=== PATIENT | female | born 1940 | race Caucasian/White ===

== ENCOUNTER → 2017-06-22 16:06 | Outpatient (CLI) | payer MEDICARE, SELFPAY ==
--- NOTE | 2017-06-22 16:12 | RAD_ITS ---
STUDY: X-RAY - SACRUM/COCCYX REASON FOR EXAM: Female, 77 years old. Fell onto the floor this morning TECHNIQUE: 3 view(s) of the sacrum and coccyx were obtained. COMPARISON: None. FINDINGS: There is degenerative arthrosis of the bilateral sacroiliac joints. There is demineralization of the sacral ala. There is an anterior angulation of the coccygeal segments. Poorly visualized coccygeal segments. There are degenerative changes of the visualized lumbar spine. The presacral soft tissue structures are unremarkable. There is atherosclerosis. Total right hip arthroplasty. Degenerative changes of the symphysis pubis. RAD/Sacrum-Coccyx min 2 Views IMPRESSION: Acute angulation of the sacrococcyx junction may represent an acute or chronic injury. Osteoporosis, degenerative changes, arterial sclerosis. Limited coccygeal visualization. Electronically Signed: Daisy Hudson MD at 7:52 EST , Service support ,
== END ==
PROVIDERS: Family Provider Family Medicine; PCP Family Medicine; Visit Provider Family Medicine
DX: M53.3 Sacrococcygeal disorders, not elsewhere classified (principal)
CPT/HCPCS: 72220

== ENCOUNTER → 2017-08-25 16:55 | Outpatient (CLI) | payer MEDICARE, SELFPAY ==
--- NOTE | 2017-08-25 17:00 | RAD_ITS ---
STUDY: X-RAY - RIGHT FOOT CLINICAL: Female, 77 years old. Fall. Pain. TECHNIQUE: 3 view(s) of the foot. COMPARISON: None. FINDINGS: Normal talus, calcaneus, and tarsal bones. Normal visualized subtalar, talonavicular, calcaneocuboid, tarsal and tarsometatarsal articulations. There is nondisplaced fracture at the base of the fifth metatarsal. There is degenerative arthrosis of the metatarsophalangeal joint of the hallux . Normal tibial and fibular sesamoid bones. Normal interphalangeal joint of the great toe. Normal phalanges of the great toe. Normal second through fifth metatarsophalangeal joints. Normal interphalangeal joints and phalanges of the lesser toes. The soft tissue structures are unremarkable. RAD/Foot min 3 Views IMPRESSION: Fifth metatarsal fracture. Electronically Signed: Esteban Sánchez MD at 17:25 EDT , Service support ,
== END ==
PROVIDERS: Family Provider Family Medicine; PCP Family Medicine; Visit Provider Nurse Practitioner Adult Health
DX: M79.671 Pain in right foot (principal)
CPT/HCPCS: 73630

== ENCOUNTER → 2017-10-03 17:00 | Outpatient (CLI) | payer MEDICARE, SELFPAY ==
--- NOTE | 2017-10-03 17:04 | RAD_ITS ---
STUDY: X-RAY - RIGHT FOOT CLINICAL: Female, 77 years old. Follow-up fracture. TECHNIQUE: 3 view(s) of the foot. COMPARISON: August 25, 2017. FINDINGS: Normal talus, calcaneus, and tarsal bones. Stable mild arthrosis visualized subtalar, talonavicular, calcaneocuboid, tarsal and tarsometatarsal articulations. Again seen is the fracture of the base of the fifth metatarsal. The alignment is preserved. There is evidence of minimal healing when compared to prior study. The first through fourth metatarsals are unremarkable. There is degenerative arthrosis of the metatarsophalangeal joint of the hallux . Normal tibial and fibular sesamoid bones. Normal interphalangeal joint of the great toe. Normal phalanges of the great toe. Normal second through fifth metatarsophalangeal joints. Normal interphalangeal joints and phalanges of the lesser toes. The soft tissue structures are unremarkable. RAD/Foot min 3 Views IMPRESSION: Healing fracture of the base of the fifth metatarsal without loss of alignment. Electronically Signed: Melchor Mills DO at 11:59 EDT Tel [phone], Service support ,
== END ==
PROVIDERS: Family Provider Family Medicine; PCP Family Medicine; Visit Provider Family Medicine
DX: S92.309A Fracture of unspecified metatarsal bone(s), unspecified foot, initial encounter for closed fracture (principal); X58.XXXA Exposure to other specified factors, initial encounter; Y93.9 Activity, unspecified; Y92.9 Unspecified place or not applicable; Y99.9 Unspecified external cause status
CPT/HCPCS: 73630

== ENCOUNTER → 2017-10-27 10:08 | Outpatient (CLI) | payer MEDICARE, SELFPAY ==
[2017-10-27 12:20] LABS: Absolute Lymphocyte Count 1.42 X10^3/ul (0.83-4.51); Absolute Neutrophil Count 3.3 X10^3/uL (2.0-7.7); Basophil# 0.08 X10^3/uL; Basophil% 1.4 % (0-1); Eosinophil# 0.16 X10^3/uL; Eosinophils% 2.8 % (0-5); Hematocrit 41.5 % (37-47); Hemoglobin 13.1 g/dl (12.0-15.0); Immature Platelet Fraction 1.9 % (1.0-7.9); Lymphocyte # 1.42 X10^3/ul (4.0); Lymphocyte % 24.9 % (19-41); Mean Corp Hgb Conc 31.6 g/gl (32-36); Mean Corpuscular Volume 91.8 fL (81-99); Monocyte# 0.74 X10^3/uL; Neutrophil # 3.29 X10^3/uL (2.7-7.7); Neutrophil % 57.7 % (47-70); Platelet Count 238 K/mm3 (150-450); RBC Distribution Width SD 46.8 fl (35.1-43.9); RET-HE 27.9 pg (30-35); Red Blood Count 4.52 M/mm3 (4.2-5.4); Reticulocyte Count 0.82 % (0.5-1.5); White Blood Count 5.7 K/mm3 (4.4-11.0)
[2017-10-27 12:26] LABS: Erythrocyte Sedimentation Rate 18 mm/hr (0-30)
[2017-10-27 12:28] LABS: POSITIVE COUNT NO; POSITIVE DIFFERENTIAL NO; POSITIVE MORPHOLOGY NO
[2017-10-27 12:42] LABS: ALB/GLOB Ratio 1.1 RATIO (0.9-2.4); AST(SGOT) 19 U/L (15-37); Alanine Aminotransfer ALT/SGPT 20 U/L (13-56); Albumin, Serum 3.9 g/dL (3.2-5.0); Alkaline Phosphatase 91 U/L (45-117); Anion Gap 7 (5-15); BUN 14 mg/dL (7-18); BUN/Creat Ratio 18.2 RATIO (10-20); CRP 3.03 mg/L (0.0-3.0); Calcium,Total 9.1 mg/dL (8.5-10.1); Chloride 108 mmol/L (98-107); Creatinine, Serum 0.77 mg/dL (0.55-1.02); EST Glomerular Filtration Rate 77 mL/min (>60); Est Glom Filt Rate - Afr Amer 94 mL/min (>60); Ferritin 32 ng/mL (8-252); Globulin 3.7 g/dL (2.2-4.2); Glucose 77 mg/dL (74-106); Iron 61 ug/dL (50-170); Iron Binding Capacity,Total 382 ug/dL (250-450); Potassium 3.6 mmol/L (3.5-5.1); Protein, Total 7.6 g/dL (6.4-8.2); Sodium Level 144 mmol/L (136-145); T4 Free Direct 0.93 ng/dL (0.76-1.46); Thyroid Stim Hormone (TSH) 1.44 uIU/mL (0.358-3.74)
[2017-10-28 09:02] LABS: Vitamin B12 1141 pg/mL (211-911); Vitamin D,25 Hydroxy 26.3 ng/mL (29.95-100.01)
[2017-10-28 14:25] LABS: ANTINUCLEAR ANTIBODIES DIRECT Negative (Negative)
== END ==
PROVIDERS: Family Provider Family Medicine; PCP Family Medicine; Visit Provider Family Medicine
DX: D64.9 Anemia, unspecified (principal); R53.83 Other fatigue; M25.50 Pain in unspecified joint
CPT/HCPCS: 36415; 80053; 82306; 82607; 82728; 83540; 83550; 84439; 84443; 85025; 85045; 85652; 86038; 86140

== ENCOUNTER 2017-11-07 09:27 | Inpatient (IN) | payer MEDICARE, SELFPAY ==
[2017-11-07 09:27] VITALS: BP 175/74; PULSE 80; RESP 22; TEMP 37.1; O2SAT 98; BMI 23.0
[2017-11-07 09:40] VITALS: PULSE 81; RESP 15; O2SAT 97
--- NOTE | 2017-11-07 09:46 | CT_ITS ---
STUDY: CT BRAIN WITHOUT CONTRAST REASON FOR EXAM: Female, 77 years old. FALL, C/O LT RIB PAIN, SMALL LAC BACK OF HEAD, NO LOC RADIATION DOSAGE (If Supplied By Facility): CTDIvol = ( 44.99 ) mGy, DLP = ( 796.11 ) mGycm TECHNIQUE: Transaxial CT imaging of the brain was performed without administration of intravenous contrast material. Individualized dose optimization techniques were used for this CT. COMPARISON: None. FINDINGS: Normal soft tissue structures. Normal calvarium. There is mild cerebral atrophy with widening of the extra-axial spaces and ventricular dilatation. There are areas of decreased attenuation within the white matter tracts of the supratentorial brain, consistent with microvascular disease changes. Normal basal ganglia and thalami. Normal brainstem. Normal cerebellum. There is no intracranial hemorrhage. There are no findings of an acute ischemic infarction. Normal visualized paranasal sinuses. CT/Brain/Head without Contrast IMPRESSION: Chronic involutional changes of the brain. Electronically Signed: Annabella Huddleston MD at 10:53 EDT Tel , Service support ,
--- NOTE | 2017-11-07 09:46 | CT_ITS ---
STUDY: CT CHEST WITHOUT CONTRAST REASON FOR EXAM: Female, 77 years old. Left rib pain RADIATION DOSAGE (If Supplied By Facility): CTDIvol = ( 9.50 ) mGy, DLP = ( 337.16 ) mGycm TECHNIQUE: Transaxial imaging was performed without the administration of intravenous contrast material. Individualized dose optimization techniques were used for this CT. COMPARISON: None. FINDINGS: Multiple nodules are seen in the thyroid gland have nonspecific appearance largest response of the 1.5 cm. The lungs are normal. There is no demonstrated pleural abnormality. Normal heart and pericardium. Normal mediastinum. Normal hilar regions. Normal unenhanced pulmonary arteries. Normal aorta arch and descending thoracic aorta. There are multi-level degenerative changes of the thoracic spine.There is nondisplaced fracture of the posterior-inferior left eighth rib. There is no demonstrated abnormality of the visualized upper abdomen. CT/Chest without Contrast IMPRESSION: There is nondisplaced fracture of the posterior-inferior left eighth rib. Multiple nodules are seen in the thyroid gland have nonspecific appearance largest response of the 1.5 cm. Electronically Signed: Annabella Huddleston MD at 11:19 EDT Tel , Service support ,
--- NOTE | 2017-11-07 09:46 | RAD_ITS ---
STUDY: X-RAY - PELVIS AND LEFT HIP REASON FOR EXAM: Female, 77 years old. FALL FROM 5 FT STOOP ONTO CONCRETE. INJURY TO LEFT RIB AREA, LEFT HIP, HEAD TECHNIQUE: Radiological exam, hip, unilateral, with pelvis when performed; 2 or 3 views. COMPARISON: None. FINDINGS: There is a non-specific bowel gas pattern. Normal visualized soft tissue structures. There is diffuse demineralization of the osseous structures. There is narrowing with cortical sclerosis and osteophyte formation of the sacroiliac joint consistent with degenerative osteoarthritic changes. There is possible nondisplaced fracture of the left inferior pubic ramus. There are degenerative changes of the pubic symphysis with articular narrowing and sclerosis. Normal bilateral ischial tuberosities. There are osteoarthritic changes of the femoral head with marginal osteophyte formation. Normal acetabulum. There is mild articular joint space narrowing of the hip. RAD/Hip 2-3 Views with Pelvis IMPRESSION: There is possible nondisplaced fracture of the left inferior pubic ramus. Electronically Signed: Annabella Huddleston MD at 11:33 EDT Tel , Service support ,
--- NOTE | 2017-11-07 09:49 | ED.DCSUM_ITS ---
- ER Visit Summary Date of Service: 11/07/17 Chief Complaint: Fall History of Present Illness: The patient is a 77 F states that she was on her porch today when her dogs pulled her off the porch and she landed 5 feet down on the concrete. She did hit her head but without loss of consciousness. She notes a hematoma and abrasion to the left parietal-occipital region. She notes abrasions to the left arm. She notes left hip pain but is able to move the hip and bear weight. She also notes severe pain in the left anterior mid axillary line mid to lower chest wall. She denies any abdominal pain. Physical Examination: Afebrile vital signs are stable Gen: Well-nourished well-developed Head: Normocephalic there is abrasion and hematoma to the left parietal- occipital region. Eyes: Perrl EOMI ENT: TMs clear no rhinorrhea moist mucous membranes Neck: Supple no lymphadenopathy no JVD nontender CVS: Regular rate rhythm no murmurs normal S1-S2 Respiratory: No distress clear to auscultation bilaterally tender to palpation along the anterior mid axillary line lower left ribs. Abdomen: Soft nontender nondistended normal bowel sounds no masses Back: Nontender Extremity: There are abrasions noted along the posterior aspect of the left elbow and arm. There is tenderness over the left hip but she is able to range it. Skin: Normal color no rash Neuro: alert orientated ?3 CN II-XII intact normal strength sensation reflexes gait cerebellar Psych: Normal affect normal mood Test Results: CT the brain was negative for hemorrhage or skull fracture. CT the chest demonstrates a nondisplaced eighth rib fracture on the left. No hemopneumothorax noted. Hip x-rays demonstrated a probable inferior pubic rami fracture. Therefore CT of the pelvis noncontrast was obtained which does demonstrate the nondisplaced pubic rami fracture. Emergency Department Course and Treatment: Patient received morphine despite her smiling and being comfortable in the bed she occasionally screams and her family states that the morphine has done absolutely nothing for her pain. They tell me this is the patient is smiling and telling a story about how she broke her tailbone in the past. They are certain that the patient cannot go home today. The patient is adamant that she not go to a rehab facility. Family is requesting a home health assessment here in the department. Our plan will be admission and have social work help assist in discharge planning. Impression: 1. Fall 2. Left eighth rib fracture 3. Left inferior pubic rami fracture 4. Multiple abrasions of the left arm and scalp. 5. Scalp hematoma This note was generated with [employer] dictation software. It may contain incorrect words, spelling, and punctuation that were not noted in review of the chart prior to signing ED Disposition - Plan for ED Patient: Chief Complaint: Fall Referrals: Vikram Segura MD [Primary Care Provider] -
[2017-11-07] MEDS: Diphth,Pertuss(Acell),Tet Vac 0.5 ML Vial IM (10:02)
[2017-11-07] MEDS: Ondansetron 4 MG/2 ML Vial IV (10:03)
[2017-11-07] MEDS: Morphine 4 MG/ML Syringe IV ×2 (10:03→13:13)
--- NOTE | 2017-11-07 11:41 | CT_ITS ---
STUDY: CT PELVIS WITHOUT CONTRAST REASON FOR EXAM: Female, 77 years old. RADIATION DOSAGE (If Supplied By Facility): CTDIvol = ( 18.12 ) mGy, DLP = ( 470.51 ) mGycm TECHNIQUE: Transaxial imaging of the pelvis was performed with oral contrast, and without intravenous administration of contrast material. Individualized dose optimization techniques were used for this CT. COMPARISON: None. FINDINGS: Normal urinary bladder. Normal visualized small intestine. There are multiple colonic diverticula of the sigmoid colon consistent with chronic diverticulosis. There is no pelvic fluid. There is no pelvic mass lesion or lymphadenopathy. Normal visualized pelvic arteries. Normal abdominal wall. There are diffuse degenerative changes of the visualized lumbar spine and pelvis. There is demineralization of the osseous structures suggesting osteopenia. There is an undisplaced fracture of the left inferior pubic ramus. CT/Pelvis without IV Contrast IMPRESSION: There is an undisplaced fracture of the left inferior pubic ramus. Electronically Signed: Annabella Huddleston MD at 12:37 EDT Tel , Service support ,
[2017-11-07 12:27] VITALS: BP 212/70; PULSE 74; RESP 16; O2SAT 97
[2017-11-07] MEDS: Ketorolac 30 MG/ML Syringe IV (13:13)
[2017-11-07 13:46] VITALS: BP 180/80; PULSE 71
[2017-11-07 13:47] LABS: Anion Gap 7 (5-15); BUN 19 mg/dL (7-18); BUN/Creat Ratio 23.7 RATIO (10-20); Calcium,Total 9.5 mg/dL (8.5-10.1); Chloride 108 mmol/L (98-107); EST Glomerular Filtration Rate 74 mL/min (>60); Est Glom Filt Rate - Afr Amer 89 mL/min (>60); Estimated Creatinine Clearance 48.72 ml/min; Glucose 98 mg/dL (74-106); Sodium Level 141 mmol/L (136-145)
[2017-11-07 13:50] LABS: Absolute Lymphocyte Count 1.63 X10^3/ul (0.83-4.51); Absolute Neutrophil Count 8.9 X10^3/uL (2.0-7.7); Basophil# 0.05 X10^3/uL; Basophil% 0.4 % (0-1); Eosinophil# 0.16 X10^3/uL; Eosinophils% 1.4 % (0-5); Hematocrit 43.3 % (37-47); Hemoglobin 13.5 g/dl (12.0-15.0); Lymphocyte # 1.63 X10^3/ul (4.0); Lymphocyte % 14.1 % (19-41); Mean Corp Hgb Conc 31.2 g/gl (32-36); Mean Corpuscular Hgb 28.5 pg (27.0-32.0); Mean Corpuscular Volume 91.5 fL (81-99); Mean Platelet Vol. 11.1 fl (6.2-12.0); Monocyte# 0.78 X10^3/uL; Monocyte% 6.8 % (0-10); Neutrophil # 8.85 X10^3/uL (2.7-7.7); Neutrophil % 76.9 % (47-70); POSITIVE COUNT NO; POSITIVE DIFFERENTIAL NO; POSITIVE MORPHOLOGY NO; Platelet Count 228 K/mm3 (150-450); RBC Distribution Width SD 46.8 fl (35.1-43.9); Red Blood Count 4.73 M/mm3 (4.2-5.4); White Blood Count 11.5 K/mm3 (4.4-11.0)
--- NOTE | 2017-11-07 14:20 | HP.PCM_ITS ---
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 She was admitted by the ED on 2017 after she fell at home on day of admission. Patient states she fell down about 5 steps on her porch. She fell on her left side and had pain to her left hip her left chest and head. She therefore came to the ED. Patient states she also fell in June/July when she was taking her dogs out and broke 1 of the bones in her toes. She did not have any lightheadedness or dizziness or palpitations and denies any loss of consciousness. She did have any of such with the first fall either. In the ED, vitals were significant for blood pressure of 175/84, temperature of 90.7, pulse rate of 81 and respiratory rate of 15. She is saturating at 97% on room air. Labs only significant for white cell count of 11.5. CT of the head was negative for any hemorrhage or skull fracture. CT of the chest demonstrated a nondisplaced eighth rib fracture on the left with no hemopneumothorax noted. Hip x-ray demonstrated a left probable inferior pubic rami fracture. CT of the pelvis without contrast done confirms a nondisplaced left inferior pubic rami fracture. She was given morphine for pain and is to be admitted and managed for left inferior pubic rami fracture and nondisplaced left 8th rib fracture. [] Past Medical History Past Medical History (Chronic Problems): Chronic Problems HTN (hypertension) (Chronic) History of hysterectomy (Chronic) Hypothyroidism (Chronic) Allergies Sulfa (Sulfonamide Antibiotics) Allergy (Verified 11/07/17 09:44) Rash acetaminophen [From Tylenol] Adverse Reaction (Verified 11/07/17 09:44) restless legs RESTLESS LEGS codeine Adverse Reaction (Verified 11/07/17 09:44) Nausea Ixocmag-Nvs-Rsw Reductase Inhibitor Adverse Reaction (Verified 11/07/17 09:44) Other MUSCLE CRAMPS Home Medications: Ambulatory Orders Medication Instructions Recorded Losartan Potassium [Cozaar] 50 mg PO QHS 10/08/14 Cholecalciferol (Vitamin D3) 1,000 unit PO BID 11/12/16 [Vitamin D3] Cyanocobalamin (Vitamin B-12) 1,000 mcg PO DAILY 11/12/16 [Vitamin B-12] Gabapentin [Neurontin] 300 mg PO QHS 11/12/16 Escitalopram Oxalate [Lexapro] 10 mg PO DAILY 11/07/17 Hydrocodone/Acetaminophen [Alzada 1 each PO Q6H PRN 11/07/17 5-325 Tablet] Meloxicam 15 mg PO DAILY 11/07/17 Surgical History: hysterectomy, - - Surgery for right breast ductal carcinoma. Lives: With Family Smoking Status: Former smoker Alcohol: Occasional Drugs: None - *Family History Sibling History Items: Asthma - Brother Maternal History Items: Heart Disease, Stroke Paternal History Items: Heart Disease Review of Systems Constitutional: Denies: Chills, Fever, Weight Change Eyes: Denies: Blurred vision HEENT: Denies: Head Aches, Sinus Congestion, Sinus Drainage Cardiovascular: Denies: Chest Pain, Edema, Heaviness, Light Headedness, Orthopnea, Palpitations, Paroxysmal Noc. Dyspnea, Syncope Respiratory: Denies: Cough, Shortness of Breath, Shortness of breath at rest, Sputum production Gastrointestinal: Denies: Abdominal Pain, Nausea, Vomiting Genitourinary: Denies: Dysuria Musculoskeletal: Reports: - - Mild left chest pain at site of fall. Skin: Denies: Rash, Wounds Neurological: Denies: Numbness, Tingling, Focal weakness Psychiatric: Denies: Anxiety, Depression, Homicidal Ideations, Suicidal Ideations Hematologic/ Lymphatic: Denies: Easy Bruising, Easy Bleeding VTE Information - Inpt Only VTE Present on Admission: No VTE Mechan Device Prophylaxis: SCD's VTE Pharm Prophylaxis ordered?: Yes Patient Problems: Active and Suspected Problems Fall (Acute) Inferior pubic ramus fracture (Acute) - Physical Exam General: Alert, Oriented x3, Cooperative, No apparent distress HEENT: Atraumatic, PERRLA, EOMI, Normocephalic Oral: Moist Mucosa Neck: Supple, No JVD, Negative Carotid Bruits Lungs: Clear to auscultation, Normal air movement, No rhonchi, No wheeze, No rales Cardiovascular: Regular rate, Regular Rhythm, Normal S1, Normal S2, No murmurs Abdomen: Bowel Sounds Present, Soft, Non Tender, Non-Distended, No Hepato- splenomegaly Extremities: No clubbing, No cyanosis, No edema, Capillary Refill Less than 3 Seconds Skin: - - Superficial abrasions on left arm just above elbow due to fall. Musculoskeletal: No Tenderness to Palpation of Joints or Extremities Lymphatic: No Cervical, Supraclavicular, or Inguinal Adenopathy Neurological: Cranial nerves II-XII grossly intact Psych/Mental Status: Normal Affect, Appropriate, Alert and oriented to time, place, person, mood and affect Vital Signs Temp Pulse Resp BP Pulse Ox 98.7 F 71 16 180/80 H 97 11/07/17 09:27 11/07/17 13:46 11/07/17 12:27 11/07/17 13:46 11/07/17 12:27 Oxygen Delivery Method Room Air Weight: 130 lb Body Mass Index (BMI) 23.0 Laboratory Tests Past 24 Hrs 11/07/17 11/07/17 10:05 10:05 WBC 11.5 H RBC 4.73 Hgb 13.5 Hct 43.3 MCV 91.5 MCH 28.5 MCHC 31.2 L RDW 14.0 RDW Differential 46.8 H Plt Count 228 MPV 11.1 Immature Gran % (Auto) 0.400 Neut % (Auto) 76.9 H Lymph % (Auto) 14.1 L [place] % (Auto) 6.8 Eos % (Auto) 1.4 Baso % (Auto) 0.4 Absolute Neuts (auto) 8.9 H Absolute Lymphs (auto) 1.63 Total Counted Not Reportable Sodium 141 Potassium 4.0 Chloride 108 H Carbon Dioxide 26.0 Anion Gap 7 BUN 19 H Creatinine 0.80 Estim Creat Clear Calc 48.72 Est GFR (MDRD) Af Amer 89 Est GFR (MDRD) Non-Af 74 BUN/Creatinine Ratio 23.7 H Glucose 98 Calcium 9.[address] 11/07/17 09:46 IMPRESSION: Chronic involutional changes of the brain. Electronically Signed: Annabella Huddleston MD at 10:53 EDT Tel , Service support , Chest CT 11/07/17 09:46 IMPRESSION: There is nondisplaced fracture of the posterior-inferior left eighth rib. Multiple nodules are seen in the thyroid gland have nonspecific appearance largest response of the 1.5 cm. Electronically Signed: Annabella Huddleston MD at 11:19 EDT Tel , Service support , Hip/Pelvis X-Ray 11/07/17 09:46 IMPRESSION: There is possible nondisplaced fracture of the left inferior pubic ramus. Electronically Signed: Annabella Huddleston MD at 11:33 EDT Tel , Service support , Pelvis CT 11/07/17 11:41 IMPRESSION: There is an undisplaced fracture of the left inferior pubic ramus. Electronically Signed: Annabella Huddleston MD at 12:37 EDT Tel , Service support , Assessment/Plan All Active Problems Fall (Acute) Inferior pubic ramus fracture (Acute) Hypoxia (Acute) Diverticular hemorrhage (Acute) GI bleed due to NSAIDs (Acute) 1. Left Inferior pubic rami fracture due to fall * pain is well controlled. Fell off her porch. * had a fall in July too. Lives with family. * Will admit to [facility]. will get EKG to make sure she doesnt have any arrhythmia precipitating the falls. * On Alzada for pain. Will continue, and add IV ketorolac prn * Fall precautions * PT/OT consult. * Fracture will likely heal conservatively; discussed with Dr Terrell on phone; he reviewed the imaging, and advocates conservative management, and to weight bear as tolerated. To follow up with Dr Junior (he is computer applications engineer today) upon discharge. * may need placement for inpatient physical therapy rehab * 2.Left rib fracture * Has minimal tenderness over left chest wall area. CT of the chest showed nondisplaced eighth rib fracture on the left. * Pain control with Alzada and IV ketorolac prn * Conservative management for now. * 3. Mechanical fall: * Has fallen twice in the past 3 months. For some being in July when she was walking a dog and fell onto the concrete. * Fall precautions. PT OT consult. * 4.hypertension: * Was elevated in the ED with blood pressure been in the 170s-180s systolic. This likely due to pain. On lisinopril. Will continue. Hydralazine as needed for blood pressure systolic more than 160. * 5. Osteoarthritis s/p left hip replacement: stable. 6. DVT prophylaxis: Heparin. SCDs Code status: Counseled extensively on different types of CODE STATUS and their meaning. Patient selected to be full code. Disposition. manager service desk to review for possible placement for rehab. Patient however states she is not going to rehab and family's request and home health assessment to see if patient can go home. Code Visit Inpatient E&M: 23184 Init Hosp L2 Procedures: 69000 Advncd Care Plan 30 Min
[2017-11-07 15:20] VITALS: BMI 22.9
[2017-11-07 15:21] VITALS: BP 178/68; PULSE 68; RESP 18; TEMP 36.6; O2SAT 95
--- NOTE | 2017-11-07 18:08 | NURSING ---
Pt worried about her Neurotonin tonight, If I don't have it, my legs will be restless. This nurse informed of order at HS. Oh good because if not I will have my bring in my pills from home. This nurse explained that she should not be taking any of her own home medications as we will give them to her here when scanning her bracelet and pills. Pt understands. Family present when explained.
[2017-11-07] MEDS: HYDROcodone Bitartrate/Apap 5/325 Tablet PO (19:44)
[2017-11-07 20:51] VITALS: BP 146/71; PULSE 77; RESP 16; TEMP 36.6; O2SAT 94
[2017-11-07] MEDS: Gabapentin 300 MG Capsule PO (20:51)
[2017-11-07] MEDS: Heparin Injection (Vial) 5,000 UNIT/ML VIAL 5000 UNIT SC (20:51)
[2017-11-07] MEDS: DiphenhydrAMINE 25 MG Capsule 50 MG PO (20:51)
[2017-11-07] MEDS: Ketorolac 15 MG/ML Vial IV (20:52)
[2017-11-08 02:30] VITALS: BP 155/64; PULSE 77; RESP 18; TEMP 37.2; O2SAT 95
[2017-11-08 06:15] LABS: Absolute Lymphocyte Count 1.22 X10^3/ul (0.83-4.51); Absolute Neutrophil Count 8.7 X10^3/uL (2.0-7.7); Basophil# 0.06 X10^3/uL; Basophil% 0.5 % (0-1); Eosinophil# 0.14 X10^3/uL; Eosinophils% 1.3 % (0-5); Hematocrit 39.4 % (37-47); Hemoglobin 12.2 g/dl (12.0-15.0); Lymphocyte # 1.22 X10^3/ul (4.0); Lymphocyte % 11.1 % (19-41); Mean Corpuscular Hgb 28.7 pg (27.0-32.0); Mean Corpuscular Volume 92.7 fL (81-99); Mean Platelet Vol. 10.3 fl (6.2-12.0); Monocyte# 0.85 X10^3/uL; Monocyte% 7.8 % (0-10); Neutrophil # 8.67 X10^3/uL (2.7-7.7); Neutrophil % 79.1 % (47-70); Platelet Count 190 K/mm3 (150-450); RBC Distribution Width CV 14.2 % (11.6-14.6); RBC Distribution Width SD 48.1 fl (35.1-43.9); Red Blood Count 4.25 M/mm3 (4.2-5.4)
[2017-11-08 06:18] LABS: POSITIVE COUNT NO; POSITIVE DIFFERENTIAL NO; POSITIVE MORPHOLOGY NO
[2017-11-08 06:19] LABS: Anion Gap 7 (5-15); BUN 28 mg/dL (7-18); BUN/Creat Ratio 28.5 RATIO (10-20); Calcium,Total 8.6 mg/dL (8.5-10.1); Chloride 106 mmol/L (98-107); Creatinine, Serum 0.98 mg/dL (0.55-1.02); EST Glomerular Filtration Rate 58 mL/min (>60); Est Glom Filt Rate - Afr Amer 71 mL/min (>60); Estimated Creatinine Clearance 39.77 ml/min; Glucose 122 mg/dL (74-106); Potassium 4.5 mmol/L (3.5-5.1); Sodium Level 142 mmol/L (136-145)
[2017-11-08] MEDS: HYDROcodone Bitartrate/Apap 5/325 Tablet PO ×3 (06:52→18:34)
[2017-11-08 08:00] VITALS: RESP 18; O2SAT 95
[2017-11-08 08:27] VITALS: BP 134/66; PULSE 63; RESP 18; TEMP 36.7; O2SAT 93
--- NOTE | 2017-11-08 09:39 | NURSING ---
SPOKE WITH , HE DENIES NO ETOH USE EXCEPT WHEN OUT WITH FRIENDS-HE SAID PT HAS HAD MAJOR PERSONALITY CHANGE RECENTLY AND C/O DIZZINESS AND LIGHTHEADEDNESS FREQUENTLY AND YET MAKES POOR DECISIONS TO WALK DOGS AT THAT TIME -HE SAID IT IS NOT SAFE FOR PT TO RETURN HOME WITHOUT REHAB-EXPRESSED TO HIM THAT BECAUSE PT IS A&O X3 AT THIS TIME AND DOES NOT WANT TO GO, WE CAN NOT FORCE HER AND ENCOURAGED HIM TO COME IN AND TALK HER INTO IT-HE IS AGREEABLE
--- NOTE | 2017-11-08 09:51 | PCM.PROGNOTE ---
Patient Problems: Active and Suspected Problems Fall (Acute) Inferior pubic ramus fracture (Acute) Subjective: Chief complaint: Follow-up after admission for mechanical fall, recurrent falls, nondisplaced fracture of the left eighth rib and acute traumatic nondisplaced fracture of the left inferior pubic ramus. Patient seen and examined. No acute events overnight. She still complaining of left lateral chest pain upon movement. She denies any pelvic pain. She has been ambulating without any difficulties. Denied chest pain, shortness of breath, dizziness, lightheadedness, syncope or presyncope. Her vital signs are stable. - Physical Exam General: Alert, Oriented x3, Cooperative, No apparent distress HEENT: Atraumatic, PERRLA, EOMI, Normocephalic Oral: Moist Mucosa, No Gingival or Mucosal Lesions/ Ulcerations Neck: Supple, No JVD, Negative Carotid Bruits, Trachea Midline, Thyroid Normal Size and Texture Lungs: Clear to auscultation, No rhonchi, No wheeze, No rales, Diminished Cardiovascular: Regular rate, Regular Rhythm, Normal S1, Normal S2, PMI Normal Abdomen: Bowel Sounds Present, Soft, Non Tender, Non-Distended, No Hepato-splenomegaly Extremities: No clubbing, No cyanosis, No edema Skin: No rashes, No breakdown Lymphatic: No Cervical, Supraclavicular, or Inguinal Adenopathy Neurological: Cranial nerves II-XII grossly intact, Motor Exam 5/5 strength throughout Psych/Mental Status: Normal Affect, Appropriate, Alert and oriented to time, place, person, mood and affect Vital Signs Temp Pulse Resp BP Pulse Ox 98.1 F 63 18 134/66 H 93 11/08/17 08:27 11/08/17 08:27 11/08/17 08:27 11/08/17 08:27 11/08/17 08:27 Oxygen Delivery Method Room Air Weight: 129 lb 8 oz Body Mass Index (BMI) 22.9 Intake and Output for Last 24 Hours 11/06/17 11/07/17 11/08/17 23:59 23:59 23:59 Intake Total 240 / 240 700 / 700 Output Total 500 / 500 Balance 240 / 240 200 / 200 Laboratory Tests Past 24 Hrs 11/08/17 11/08/17 05:40 05:40 WBC 11.0 RBC 4.25 Hgb 12.2 Hct 39.4 MCV 92.7 MCH 28.7 MCHC 31.0 L RDW 14.2 RDW Differential 48.1 H Plt Count 190 MPV 10.3 Immature Gran % (Auto) 0.200 Neut % (Auto) 79.1 H Lymph % (Auto) 11.1 L [place] % (Auto) 7.8 Eos % (Auto) 1.3 Baso % (Auto) 0.5 Absolute Neuts (auto) 8.7 H Absolute Lymphs (auto) 1.22 Total Counted Not Reportable Sodium 142 Potassium 4.5 Chloride 106 Carbon Dioxide 29.0 Anion Gap 7 BUN 28 H Creatinine 0.98 Estim Creat Clear Calc 39.77 Est GFR (MDRD) Af Amer 71 Est GFR (MDRD) Non-Af 58 L BUN/Creatinine Ratio 28.5 H Glucose 122 H Calcium 8.6 Clinical Impression(s) from Imaging Studies Brain CT 11/07/17 09:46 IMPRESSION: Chronic involutional changes of the brain. Electronically Signed: Annabella Huddleston MD at 10:53 EDT Tel , Service support , Chest CT 11/07/17 09:46 IMPRESSION: There is nondisplaced fracture of the posterior-inferior left eighth rib. Multiple nodules are seen in the thyroid gland have nonspecific appearance largest response of the 1.5 cm. Electronically Signed: Annabella Huddleston MD at 11:19 EDT Tel , Service support , Hip/Pelvis X-Ray 11/07/17 09:46 IMPRESSION: There is possible nondisplaced fracture of the left inferior pubic ramus. Electronically Signed: Annabella Huddleston MD at 11:33 EDT Tel , Service support , Pelvis CT 11/07/17 11:41 IMPRESSION: There is an undisplaced fracture of the left inferior pubic ramus. Electronically Signed: Annabella Huddleston MD at 12:37 EDT Tel , Service support , Medical Necessity - Tobacco Use Smoking Status: Former smoker Assessment/Plan All Active Problems Fall (Acute) Inferior pubic ramus fracture (Acute) This is a 77 years old female patient admitted because of mechanical fall, found to have left eighth rib fracture as well as nondisplaced pelvic fracture and family report that she has been having recurrent falls at home. #1 acute traumatic nondisplaced fracture of the left inferior pubic ramus: CT scan pelvis and x-ray of the pelvis reviewed. She is on Toradol and Bellevue for pain as needed. Pain is well controlled. Vital signs are stable. Routine blood work was unremarkable. I spoke with the patient about possibility of going to a assisted and she mentioned that she wants to go home. According to the patient's nurse, patient's son and thinking that she should go to custodial facility. Plan for PT OT evaluation and treatment. #2 acute nondisplaced traumatic fracture of the left eighth rib: CT scan chest reviewed. She is on IV Toradol and [place]vue for pain as needed. She still symptomatically her pain. Plan to potassium treatment, start incentive spirometer. #3 multiple thyroid nodules: Recently, she had TSH and free T4 was done and were normal. Will do a thyroid ultrasound. #4 hypertension: Blood pressure stable, continue losartan. #5 osteoarthritis, stable, continue pain management. #6 DVT prophylaxis: Subcu heparin. This note was generated with [employer] dictation software. It may contain incorrect words, spelling, and punctuation that were not noted in checking the note before signing. Code Visit Inpatient E&M: 88733 Subs Hosp L2
[2017-11-08] MEDS: Escitalopram Oxalate 10 MG Tablet PO (09:53)
[2017-11-08] MEDS: Cyanocobalamin 500 MCG Tablet 1000 MCG PO (09:53)
[2017-11-08] MEDS: Heparin Injection (Vial) 5,000 UNIT/ML VIAL 5000 UNIT SC (09:54)
--- NOTE | 2017-11-08 10:01 | US_ITS ---
STUDY: THYROID ULTRASOUND REASON FOR EXAM: Female, 77 years old. Follow-up thyroid nodules. TECHNIQUE: Ultrasound evaluation of the thyroid was performed with real-time and static rollins-scale imaging. COMPARISON: Thyroid ultrasound December 30, 2014; nuclear medicine thyroid uptake and scan February 24, 2015. FINDINGS: RIGHT LOBE: The right lobe of the thyroid gland measures 4.6 x 1.8 x 1.2 cm. There is a heterogeneous echotexture. At least 5 focal lesions are identified. The largest is in the anterior upper pole, measuring 17 x 9 x 6 mm. Posterior to this, towards the midpole is a 12 x 7 x 5 mm heterogeneous nodule. A 9 x 6 x 6 mm anechoic cyst is seen in the lateral upper to midpole. Incompletely defined, heterogeneous 11 x 8 x 8 mm solid nodule is seen at the lower pole. Adjacent to this is a second heterogeneous 12 x 8 x 10 mm solid nodule. LEFT LOBE: The left lobe of the thyroid gland measures 4.7 x 2.4 x 2.2 cm. There is a heterogeneous echotexture. At least 4 focal lesions are identified. ISTHMUS: The isthmus measures 2 mm heterogeneous 14 x 11 x 11 mm nodule with sites of internal cystic degenerative change seen at the mid upper pole. Inferior and posterior to this is a second heterogeneous 8 x 9 x 8 mm solid nodule with internal cystic degenerative change. A 10 x 9 x 7 mm heterogeneous solid nodule seen in the posterior midpole. A 14 x 11 x 11 mm heterogeneous solid nodule is present at the lower pole. The regional lymph nodes are normal. US/Thyroid IMPRESSION: Findings consistent with a multinodular goiter, as described. Solid nodules in the lower pole of the right lobe are slightly increased in size from 2014, while most of the remaining bilateral lesions are generally unchanged. Ultrasound-guided biopsy of a right thyroid nodule was performed March 2015, and correlation with the procedure nodes as to which nodule was the target of biopsy is advised. Electronically Signed: Андрей Irving MD at 14:34 EDT , Service support ,
--- NOTE | 2017-11-08 12:15 | NURSING ---
TO RADIOLOGY FOR TESTING
--- NOTE | 2017-11-08 12:16 | CASEMGMT ---
Social Work Assessment Referral Date: 11/08/2017 Date of Assessment: 11/08/2017 Reason for consult: Pelvic fracture, mental health Informant: HOWIE RN Personal Status: SW met with pt to complete initial assessment. SW introduced self and role at [facility]. Pt's and daughter present in room. Pt gave this worker permission to talk to her in front of guests. Pt is alert and orientated x3. Pt states that she lives with her in a one story home. Pt states that there are four steps to enter the home. Pt states that she was previously independent with steps and with ADLs. DME include cane at home that pt's has but she is unable to use. Pt states that she was previously going to [facility] three times a week. Pt's daughter states that pt doesn't go to [facility]. Pt states that her plan is to go home at discharge. Pt agreeable to referral being made to [facility] for PT/OT. SW put in order for HHC. Substance Abuse Hx: Pt states that she used to smoke cigarettes but has quit for over 20 years. Pt states that she has one drink a day of Old Fashioned at 5:00pm. Pt denied alcohol abuse and denied additional substance use or abuse. Mental Health Hx: Pt states that she has mild depression. Pt states that she currently takes Lexapro and it is prescribed through her PCP Maxime Segura. Pt's daughter states that pt has a history of after having surgery pt will make suicidal comments. Pt's daughter states that after pt's hip replacement last year pt couldn't remember things for two weeks when was on pain pills. In regards to history of suicidal comments pt states I was kidding. Pt's daughter reports that pt also made comment in the ER stating that she wanted to get a revolver to which pt states I was kidding. SW asked pt and her if there were any guns in the home and confirms that there is a gun and that it is hidden from pt and pt doesn't know where it is at. Pt repeatedly reports that in regard to any suicidal comments in the past and any comments in the ER she was just kidding. Pt currently denied any suicidal or homicidal thoughts/plans/ideations. Pt denied any current depressive symptoms. Pt agreeable to referral to Behavior Health being made. Pt states that she is familiar with [employer] as she has friends that work there but denied wanting any counseling resources. HOWIE placed a call to Teresa with [facility] and made referral for home health care. HOWIE placed a call to Chris with Behavior [facility] and made referral. Plan: Pt to discharge home with [facility] Chris from behavior [facility] to see pt. Elizabeth Betancourt ACTIVITIES LEADER, HOSPITAL SALES REPRESENTATIVE
--- NOTE | 2017-11-08 13:51 | CASEMGMT ---
Social Work Note SW confirmed with Alpa, TAX APPRAISER, PARTS SALVAGER and Sary PARTS SALVAGER that crisis is not needing to be consulted at this time as pt currently denied any suicidal thoughts/plans/ideations and Chris from Behavior Health is to see pt today and can assess pt as well. Elizabeth Betancourt TAX APPRAISER, PARTS SALVAGER
[2017-11-08 15:00] VITALS: BP 133/68; PULSE 84; RESP 18; TEMP 36.7; O2SAT 96
--- NOTE | 2017-11-08 15:16 | PCM.DC ---
- Discharge Diagnoses Current Active Problems: Current Active and Chronic Problems Fall (Acute) Inferior pubic ramus fracture (Acute) You will use the following diet at home:: Regular Your food should be the consistency of: Regular Discharge Activity: Return to Normal Activity Weight Bearing Status: Weight bearing as tolerated Call your doctor if you observe: Fever of 101 or Higher, Shortness of breath, Dizziness, Fainting spells, Chest pain, Increased palpitations (irregular heartbeat), Uncontrolled pain Instructions: Rib Fracture (Broken Rib), ED Fx Pelvis Allergies/Adverse Reactions: Allergies Sulfa (Sulfonamide Antibiotics) Allergy (Verified 11/07/17 09:44) Rash acetaminophen [From Tylenol] Adverse Reaction (Verified 11/07/17 09:44) restless legs RESTLESS LEGS codeine Adverse Reaction (Verified 11/07/17 09:44) Nausea Ilfazfq-Omz-Obn Reductase Inhibitor Adverse Reaction (Verified 11/07/17 09:44) Other MUSCLE CRAMPS Medications to take at Discharge Losartan Potassium [Cozaar] 50 mg PO QHS 10/08/14 Cholecalciferol (Vitamin D3) [Vitamin D3] 1,000 unit PO BID 11/12/16 Cyanocobalamin (Vitamin B-12) [Vitamin B-12] 1,000 mcg PO DAILY 11/12/16 Gabapentin [Neurontin] 300 mg PO QHS 11/12/16 Escitalopram Oxalate [Lexapro] 10 mg PO DAILY 11/07/17 Meloxicam 15 mg PO DAILY 11/07/17 Hydrocodone/Acetaminophen [Columbus 5-325 Tablet] 1 ea PO Q6H PRN 3 Days #10 tab 11/08/17 The following prescriptions were given: Hydrocodone/Acetaminophen [[place]us 5-325 Tablet] 1 ea PO Q6H PRN 3 Days #10 tab PRN Reason: Pain Primary Care Physician: Vikram Segura MD [Primary Care Provider] - Please follow up with your Primary Care Physician in: 1 week. Test Results: Test results from this visit will be discussed in further detail at your follow-up appointment, if applicable.
--- NOTE | 2017-11-08 15:18 | DS.PCM_ITS ---
Discharge Date and Diagnosis Date of Admission: 11/07/17 Date of Discharge: 11/08/17 - Primary Discharge Diagnosis Active and Suspected Problems #1 acute traumatic nondisplaced fracture of the left inferior pubic ramus. #2 acute nondisplaced somatic fracture of the left eighth rib. #3 multiple thyroid nodules. #4 behavioral disturbances. - Secondary Discharge Diagnosis Chronic Problems HTN (hypertension) (Chronic) History of hysterectomy (Chronic) Hypothyroidism (Chronic) Hospital Course and Treatment Imaging Results: 11/08/17 10:01 US Thyroid [Thyroid] [US] Urgent Clinical Impression(s) from Imaging Studies Brain CT 11/07/17 09:46 IMPRESSION: Chronic involutional changes of the brain. Electronically Signed: Annabella Huddleston MD at 10:53 EDT Tel , Service support , Chest CT 11/07/17 09:46 IMPRESSION: There is nondisplaced fracture of the posterior-inferior left eighth rib. Multiple nodules are seen in the thyroid gland have nonspecific appearance largest response of the 1.5 cm. Electronically Signed: Annabella Huddleston MD at 11:19 EDT Tel , Service support , Hip/Pelvis X-Ray 11/07/17 09:46 IMPRESSION: There is possible nondisplaced fracture of the left inferior pubic ramus. Electronically Signed: Annabella Huddleston MD at 11:33 EDT Tel , Service support , Pelvis CT 11/07/17 11:41 IMPRESSION: There is an undisplaced fracture of the left inferior pubic ramus. Electronically Signed: Annabella Huddleston MD at 12:37 EDT Tel , Service support , Thyroid Ultrasound 11/08/17 10:01 IMPRESSION: Findings consistent with a multinodular goiter, as described. Solid nodules in the lower pole of the right lobe are slightly increased in size from 2015, while most of the remaining bilateral lesions are generally unchanged. Ultrasound-guided biopsy of a right thyroid nodule was performed March 2015, and correlation with the procedure nodes as to which nodule was the target of biopsy is advised. Electronically Signed: Андрей Irving MD at 14:34 EDT , Service support , [facility]. Operations: None Procedures: None Summary of Care Provided: The patient is a 77 year old F admitted because of mechanical fall and she was found to have fracture of the left eighth rib and nondisplaced fracture of the left inferior pubic ramus. Patient's family reported that she has been having frequent falls at home as well as balance problems and behavioral disturbances. Patient's daughter who is the power of business attorney mentioned that she has been having abnormal behavior and at one time in the past when she had her left hip replacement, she was suicidal. During this hospital stay, patient denies any suicidal ideations or intentions. CT scan brain showed no acute findings. CT scan chest without contrast revealed nondisplaced fracture of the left eighth rib as well as multiple thyroid nodules. Pelvic CT scan revealed undisplaced fracture of the left inferior pubic ramus. CT scan chest revealed multiple thyroid nodules which is apparently a chronic problem and has been followed up as outpatient. Ultrasound thyroid revealed multinodular goiter. Her TSH and free T4 was done recently and was normal. Patient is aware that she has multiple thyroid nodules and she has been followed up by her PCP. She was treated with narcotic pain medications and she did very well. She was able to ambulate on the day of discharge without any symptoms. She continued to have mild to moderate left lateral chest pain because of the left eighth rib fracture which was managed with the pain medication. Her routine blood work was unremarkable. She was seen by PT OT and patient was to be on her feet and able to ambulate without any difficulties. Patient's family including her daughter who is power of business attorney expressed her concerns about balance issues at home as well as behavioral disturbances. Patient was seen by behavioral therapy who confirmed that the patient is not suicidal at this time and she can be discharged home. Family was concerned about hip and back home because of the frequent falls and balance problems but patient was very unsteady on her feet and was able to ambulate without any difficulties. Patient discharged home in a stable medical condition, discharged on Ethel as needed for pain, continued on her chronic home medication without any changes, recommended to use incentive spirometer, recommended follow-up with PCP in 1 week. Discharge Activity: Return to Normal Activity Weight Bearing Status: Weight bearing as tolerated Call your doctor if you observe: Fever of 101 or Higher, Shortness of breath, Dizziness, Fainting spells, Chest pain, Increased palpitations (irregular heartbeat), Uncontrolled pain Home Medications: Medications to take at Discharge Losartan Potassium [Cozaar] 50 mg PO QHS 10/08/14 Cholecalciferol (Vitamin D3) [Vitamin D3] 1,000 unit PO BID 11/12/16 Cyanocobalamin (Vitamin B-12) [Vitamin B-12] 1,000 mcg PO DAILY 11/12/16 Gabapentin [Neurontin] 300 mg PO QHS 11/12/16 Escitalopram Oxalate [Lexapro] 10 mg PO DAILY 11/07/17 Meloxicam 15 mg PO DAILY 11/07/17 Hydrocodone/Acetaminophen [Ethel 5-325 Tablet] 1 ea PO Q6H PRN 3 Days #10 tab Following Prescrptions Were Given to Patient: Hydrocodone/Acetaminophen [Ethel 5-325 Tablet] 1 ea PO Q6H PRN 3 Days #10 tab PRN Reason: Pain Primary Care Physician: Vikram Segura MD [Primary Care Provider] - Please follow up with your Primary Care Physician in: 1 week. Patient Instructions: Rib Fracture (Broken Rib), ED Fx Pelvis Disposition: Home with Home Health Minutes spent on discharge:: 32 Patient Condition:: Stable Medical Necessity - Tobacco Use Smoking Status: Former smoker Meaningful Use Info Meaningful Use Diagnoses (Choose all that apply): None applicable Code Visit Inpatient E&M: 08471 Disch Hosp
--- NOTE | 2017-11-08 15:53 | BH.NOTE ---
BH: Inpatient Note - Notes Behavioral Health Inpatient Note: 11/08/17 15:53 Referral to [facility] from social work due to hx of depression and passive suicidal remarks. Met with pt in her room alone. Alert and oriented. Thoughts are linear and logical. No gilmer or delusions noted. Pt was pleasant and cooperative. Smiling and outgoing. Denies any current emotional distress or depressive symptoms. Denies any suicidal ideations, plan, or intent. Denies any hx of attempts. Admits to making remarks while in the the ER along the lines of if I don't get something for the pain I'm going to kill myself. Pt is adamant that she made this statement in a joking manner and did not have any intent to hurt herself. Refer to social work note for further information. Future-oriented. Denies panic attacks or overwhelming anxiety. Reports that she has an active social life and support from friends and family. Frustration with recent fall however is planning to spend the time while healing to catch up on some reading. 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 She does not have any interest in counseling as she does not feel it is necessary. Pt was given a list of local providers. Discussed case with SW with current plan to discharge home as PT and OT did not recommend rehab.
--- NOTE | 2017-11-08 18:33 | NURSING ---
and arguing about availability of walker at home-they will update as soon as they know for sure
--- NOTE | 2017-11-08 18:51 | NURSING ---
pt states she they will drive by friends house to filler picker walker on way home
== END 2017-11-08 18:50 | disposition home health service (06) | DRG 536 ==
LOC: ED 10:34 → MS3 14:38
PROVIDERS: Admitting Provider Student in an Organized Health Care Education/Training Program; Emergency Provider Emergency Medicine; Family Provider Family Medicine; PCP Family Medicine; Visit Provider Hospitalist
DX: S32.592A Other specified fracture of left pubis, initial encounter for closed fracture (principal); S22.32XA Fracture of one rib, left side, initial encounter for closed fracture; I10 Essential (primary) hypertension; E04.2 Nontoxic multinodular goiter; E03.9 Hypothyroidism, unspecified; F91.9 Conduct disorder, unspecified; M19.90 Unspecified osteoarthritis, unspecified site; R29.6 Repeated falls; Z96.642 Presence of left artificial hip joint; W10.9XXA Fall (on) (from) unspecified stairs and steps, initial encounter; Y93.9 Activity, unspecified; Y92.008 Other place in unspecified non-institutional (private) residence as the place of occurrence of the external cause; Y99.9 Unspecified external cause status; Z79.899 Other long term (current) drug therapy; Z85.3 Personal history of malignant neoplasm of breast; Z87.891 Personal history of nicotine dependence
CPT/HCPCS: 36415; 70450; 71250; 72192; 73502; 76536; 80048; 85025; 90715; 97162; 97165; 99284; A4216; G8978; G8979; G8987; G8988; J2405

== ENCOUNTER 2017-11-23 10:49 | Emergency (ER) | payer MEDICARE, SELFPAY ==
[2017-11-23 10:50] VITALS: BP 162/76; PULSE 84; PULSE 86; RESP 18; RESP 20; TEMP 36.5; O2SAT 98; O2SAT 99; BMI 23.0
--- NOTE | 2017-11-23 11:35 | CT_ITS ---
STUDY: CT PELVIS WITHOUT CONTRAST REASON FOR EXAM: Female, 77 years old. Fall one week ago. Old fractures. Increased pain. RADIATION DOSAGE (If Supplied By Facility): CTDIvol = ( 15.41 ) mGy, DLP = ( 407.87 ) mGycm TECHNIQUE: Transaxial imaging of the pelvis was performed with oral contrast, and without intravenous administration of contrast material. Coronal and sagittal 2-D MPR. Individualized dose optimization techniques were used for this CT. COMPARISON: CT pelvis 11/07/2017. FINDINGS: No acute intra-abdominal or intrapelvic process is evident. There is diffuse diverticulosis of the sigmoid colon without evidence of acute diverticulitis. Body wall soft tissues exhibit no acute process. Right total hip arthroplasty. Surgical construct intact. Proximal right femur, right-sided pubic rami, ischial tuberosity, acetabulum, iliac crest and sacrum are intact. On the left, intact sacrum, iliac crest, acetabulum. Mildly comminuted fracture of the mid shaft of the inferior pubic ramus. Stable compared to recent prior imaging of 11/07/2017. Suspected nondisplaced fracture of the distal shaft of the superior pubic ramus. There are moderately severe degenerative changes of the left hip articulation with joint space narrowing, partial [id number] articulation, mild subcortical cyst formation and moderately prominent joint margin osteophytic lipping. Suspected minimal left hip joint effusion. Myotendinous structures surrounding the hip and ramus are unremarkable. CT/Pelvis without IV Contrast IMPRESSION: Suspected minimal left hip joint effusion. 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 Stable pubic rami fractures on the left. Electronically Signed: Wang Santamaria, at 12:45 EDT Tel , Service support ,
--- NOTE | 2017-11-23 11:37 | CT_ITS ---
STUDY: CT LUMBAR SPINE WITHOUT CONTRAST REASON FOR EXAM: Female, 77 years old. Fall one week ago with pelvic ramus fracture. Increased lower back pain and pelvic pain. RADIATION DOSAGE (If Supplied By Facility): CTDIvol = ( 16.29 ) mGy, DLP = ( 391.69 ) mGycm TECHNIQUE: The patient was scanned in a multi detector CT scanner. High resolution transaxial imaging was performed. Sagittal and coronal images were reconstructed. Individualized dose optimization techniques were used for this CT. COMPARISON: CT lumbar spine same date. CT pelvis 11/07/2017. X-ray hip/pelvis 11/07/2017. FINDINGS: Limited evaluation of the retroperitoneum and abdominal contents reveals No acute abnormality's. There is an intermediately dense cystic focus exophytic from the posterior margin of the mid polar left kidney measuring 1.3 cm that is incompletely characterized on noncontrast CT and ultrasound characterization is recommended. Psoas and paraspinous muscles are normal. Mild SI joint degenerative changes. There is no evidence of sacral fracture. Lumbar vertebral body height normal. L4-L5 grade 1 spondylolisthesis. Alignment otherwise normal. There is osteopenia and scoliosis with preserved lordosis. There is moderate to moderately severe disc narrowing involving all levels of the lumbar spine, most severe at L3-L4 and L4-L5 where posterior disc bulging, posterior lateral disc margin osteophytic spurring, facet hypertrophy and ligamentum flavum hypertrophy contribute to multilevel mild to moderate foraminal stenosis, and moderately severe spinal canal stenosis at L4-L5. No fracture. CT/Spine Lumbar without Contrast IMPRESSION: Multilevel lumbar spondylosis. No fracture or traumatic subluxation. Electronically Signed: Wang Santamaria, at 12:42 EDT Tel , Service support ,
[2017-11-23] MEDS: HYDROmorphone 1 MG/ML Syringe IV ×2 (11:40→14:07)
[2017-11-23] MEDS: Ondansetron 4 MG/2 ML Vial IV (11:40)
[2017-11-23 13:15] VITALS: BP 167/82; PULSE 89; RESP 18; O2SAT 98
--- NOTE | 2017-11-23 14:27 | ED.RN ---
manager case management confirmed that someone from physical therapy will be down to evaluate pt
--- NOTE | 2017-11-23 15:16 | ED.DCSUM_ITS ---
- ER Visit Summary Date of Service: 11/23/17 Chief Complaint: Back and pelvis pain History of Present Illness: The patient is a 77 F that fell off of a stoop about 2 weeks ago. The patient fractured her pubic rami. She was admitted to the hospital. She did not meet criteria for transfer to a nursing facility or rehab. She was sent home. She has been taking hydrocodone and hydromorphone, but she has continued pain. Patient denies any interval injuries. Denies any new symptoms. Denies weakness or numbness. Denies abdominal pain or GI symptoms. Denies any urinary symptoms. Denies fevers. Physical Examination: Patient is afebrile and vital signs are unremarkable. Head and neck are atraumatic. Heart is regular. Lungs are clear. Abdomen is soft. Lower lumbar/sacral area is tender to palpation. Extremities atraumatic. Negative logroll. Neurovascular intact distally. Good range of motion. Skin appears normal. Test Results: Repeat CT was performed of her lumbar spine and pelvis. This showed multiple levels of spondylosis. She has stable fractures of her inferior and superior pubic rami. She has degenerative changes and mild effusion of the left hip is suspected. Emergency Department Course and Treatment: Patient treated with Dilaudid and Zofran. She had some improvement of her pain. She did require a second dose. Repeat CT was done and showed stable changes. I discussed her case with Dr. Eric who was on-call for orthopedics. He had no further recommendations other than to rule out a hip fracture. He noted that you can have an occult hip fracture that does not show up on CT. However, he would expect this to show up on CT if this fall happened 2 weeks ago. He felt that the degenerative changes and the effusion of the hip were not significant. I reevaluated the patient. She had negative logroll. Good range of motion of her hip. I do not believe that she has a hip fracture clinically. There is no shortening or abnormal rotation. Family was concerned that she is having continued pain at home. They requested placement in a nursing facility or rehab. I did have case management speak with the patient and her family. Apparently, the patient did not meet criteria during her previous admission. They did have physical therapy see the patient in the ED. Physical therapy assessed the patient. She was able to walk without assistance. She was able to get up from seated. She was able to bend and move without any difficulty. They did not feel that she needed inpatient care, placement in rehab, or placement in a group home facility. Patient has no interval findings. Her evaluation seems to be unremarkable. She has continued pain, and she has pain medicine at home. I advised her and her family that she may have pain for several more weeks as this heals. I advised that she could follow-up with her PCP and/or pain management if she needs higher doses of pain medicine. I also recommended that she follows up with orthopedics. Treatment Plan: As above Disposition: Discharged Impression: 1. Left pubic rami fractures This note was generated with [employer] dictation software. It may contain incorrect words, spelling, and punctuation that were not noted in review of the chart prior to signing ED Disposition - Plan for ED Patient: Chief Complaint: Other, Pain/Inj Referrals: Vikram Segura MD [Primary Care Provider] -
--- NOTE | 2017-11-23 15:16 | ED.DEP ---
ED Disposition - Plan for ED Patient: Chief Complaint: Other, Pain/Inj Instructions: ED Fx Pelvis Referrals: Nick Junior DO [STAFF PHYSICIAN] -
[2017-11-23 15:34] VITALS: RESP 18; O2SAT 96
--- NOTE | 2017-11-23 15:34 | CM.ED ---
Social Work Note Referral from physician to discuss options with pt and pt's family as pt's family is inquiring about placement. Placed order for PT/OT to evaluate as pt was discharged on 11/08 and was ambulating with supervision 150-[address] [facility] had been setup at that time and evaluated on 11/11 and discharged the pt as she was moving too independently. PT/OT evaluated in the ED and confirmed that the pt is able to ambulate and get out of bed and do leg raises with supervision or with modified independence. Updated physician. Physician, HOWIE and RN CM entered room together. Pt and family confirm that they had not seen the pt's PCP or Dr. Junior as recommended on the discharge instructions. Explained that based on the pt's mobility she was not going to be approved by insurance for placement. Pt's spouse states that this is not his concern, her pain is. Physician explains the concerns and risks associated with medicating the pt to the point of knocking her out as the spouse suggested and encouraged them to follow up with the pt's PCP and inquire about a Pain Management consultation as well as establishing care with Dr. Junior. No further questions at this time. Pt is to discharge home and agree to follow up with PCP and Dr. Junior. Marii Harper, BLADE BENDER FURNACE TENDER, DULITE MACHINE BLUER
--- NOTE | 2017-11-23 15:41 | ED.RN ---
PT DISCHARGED AT 1937
== END 2017-11-23 15:34 | disposition home or self-care (01) ==
PROVIDERS: Emergency Provider Emergency Medicine; Family Provider Family Medicine; PCP Family Medicine
DX: S32.592D Other specified fracture of left pubis, subsequent encounter for fracture with routine healing (principal); W10.9XXD Fall (on) (from) unspecified stairs and steps, subsequent encounter; I10 Essential (primary) hypertension; G25.81 Restless legs syndrome; Z79.899 Other long term (current) drug therapy; Z87.891 Personal history of nicotine dependence
CPT/HCPCS: 72131; 72192; 97165; 99283; A4216; G8978; G8979; G8987; G8988; G8989; J2405

== ENCOUNTER → 2018-05-03 08:37 | Outpatient (CLI) | payer MEDICARE, SELFPAY ==
[2018-05-03 10:18] LABS: Absolute Lymphocyte Count 1.33 X10^3/ul (0.83-4.51); Absolute Neutrophil Count 2.6 X10^3/uL (2.0-7.7); Basophil# 0.06 X10^3/uL; Basophil% 1.3 % (0-1); Eosinophils% 4.3 % (0-5); Hematocrit 37.3 % (37-47); Hemoglobin 11.9 g/dl (12.0-15.0); Lymphocyte # 1.33 X10^3/ul (4.0); Lymphocyte % 28.6 % (19-41); Mean Corp Hgb Conc 31.9 g/gl (32-36); Mean Corpuscular Hgb 30.2 pg (27.0-32.0); Mean Corpuscular Volume 94.7 fL (81-99); Mean Platelet Vol. 10.8 fl (6.2-12.0); Monocyte# 0.48 X10^3/uL; Monocyte% 10.3 % (0-10); Neutrophil # 2.57 X10^3/uL (2.7-7.7); Neutrophil % 55.3 % (47-70); POSITIVE COUNT NO; POSITIVE DIFFERENTIAL NO; POSITIVE MORPHOLOGY NO; Platelet Count 203 K/mm3 (150-450); RBC Distribution Width CV 14.2 % (11.6-14.6); RBC Distribution Width SD 46.6 fl (35.1-43.9); Red Blood Count 3.94 M/mm3 (4.2-5.4); White Blood Count 4.7 K/mm3 (4.4-11.0)
[2018-05-03 10:44] LABS: Vitamin D,25 Hydroxy 34.4 ng/mL (29.95-100.01)
[2018-05-03 10:45] LABS: ALB/GLOB Ratio 1.2 RATIO (0.9-2.4); AST(SGOT) 17 U/L (15-37); Alanine Aminotransfer ALT/SGPT 17 U/L (13-56); Albumin, Serum 3.8 g/dL (3.2-5.0); Alkaline Phosphatase 88 U/L (45-117); Anion Gap 7 (5-15); BUN 14 mg/dL (7-18); BUN/Creat Ratio 18.7 RATIO (10-20); Calcium,Total 8.7 mg/dL (8.5-10.1); Chloride 110 mmol/L (98-107); Cholesterol 219 mg/dL (200); Creatinine, Serum 0.75 mg/dL (0.55-1.02); EST Glomerular Filtration Rate 80 mL/min (>60); Est Glom Filt Rate - Afr Amer 97 mL/min (>60); Globulin 3.3 g/dL (2.2-4.2); Glucose 77 mg/dL (74-106); High Density Lipoprotein 46 mg/dL; Protein, Total 7.1 g/dL (6.4-8.2); Sodium Level 143 mmol/L (136-145); Thyroid Stim Hormone (TSH) 1.61 uIU/mL (0.358-3.74); Triglycerides 267 mg/dL; Very Low Density Lipoprotein 53 mg/dL (5-40)
--- OUTSIDE RECORDS SUMMARY | 2018-07-07 23:24 | XMS RPT_ITS ---
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 Emergency Room. Call 911 if necessary. 11/14/17 0025 <Electronically signed by Cricket Olmstead DO> Date Cricket Olmstead DO Cosigner Signature (If Indicated): Date CC: Vikram Segura MD DISCHARGE SUMMARY Observed: 11/09/2017 Status: F Source: [place] 11:00 AM [facility] RE[facility] Medical Records Department [address] [place] [address] Discharge Summary 11/08/17 1517 MR#: [id number] Acct: [id number] Name: XAVIER RAHMAN Rep #: [id number] : 1940 77 From: Gee Cameron MD PCP: Vikram Segura MD Status: DIS IN Y Location: [place] [id number] Discharge Date and Diagnosis Date of Admission: 11/07/17 Date of Discharge: 11/08/17 - Primary Discharge Diagnosis Active and Suspected Problems #1 acute traumatic nondisplaced fracture of the left inferior pubic ramus. #2 acute nondisplaced somatic fracture of the left eighth rib. #3 multiple thyroid nodules. #4 behavioral disturbances. - Secondary Discharge Diagnosis Chronic Problems HTN (hypertension) (Chronic) History of hysterectomy (Chronic) Hypothyroidism (Chronic) Hospital Course and Treatment Imaging Results: 11/08/17 10:01 US Thyroid [Thyroid] [US] Urgent Clinical Impression(s) from Imaging Studies Brain CT 11/07/17 09:46 IMPRESSION: Chronic involutional changes of the brain. Electronically Signed: Annabella Huddleston MD at 10:53 EDT Tel , Service support , Chest CT 11/07/17 09:46 IMPRESSION: There is nondisplaced fracture of the posterior-inferior left eighth rib. Multiple nodules are seen in the thyroid gland have nonspecific appearance largest response of the 1.5 cm. Electronically Signed: Annabella Huddleston MD at 11:19 EDT Tel , Service support , Hip/Pelvis X-Ray 11/07/17 09:46 IMPRESSION: There is possible nondisplaced fracture of the left inferior pubic ramus. Electronically Signed: Annabella Huddleston MD at 11:33 EDT Tel , Service support , Pelvis CT 11/07/17 11:41 IMPRESSION: There is an undisplaced fracture of the left inferior pubic ramus. Electronically Signed: Annabella Huddleston MD at 12:37 EDT Tel , Service support , Thyroid Ultrasound 11/08/17 10:01 IMPRESSION: Findings consistent with a multinodular goiter, as described. Solid nodules in the lower pole of the right lobe are slightly increased in size from 2015, while most of the remaining bilateral lesions are generally unchanged. Ultrasound-guided biopsy of a right thyroid nodule was performed March 2015, and correlation with the procedure nodes as to which nodule was the target of biopsy is advised. Electronically Signed: Андрей Irving MD at 14:34 EDT , Service support , [facility]. Operations: None Procedures: None Summary of Care Provided: The patient is a 77 year old F admitted because of mechanical fall and she was found to have fracture of the left eighth rib and nondisplaced fracture of the left inferior pubic ramus. Patient's family reported that she has been having frequent falls at home as well as balance problems and behavioral disturbances. Patient's daughter who is the power of assistant prosecuting attorney mentioned that she has been having abnormal behavior and at one time in the past when she had her left hip replacement, she was suicidal. During this hospital stay, patient denies any suicidal ideations or intentions. CT scan brain showed no acute findings. CT scan chest without contrast revealed nondisplaced fracture of the left eighth rib as well as multiple thyroid nodules. Pelvic CT scan revealed undisplaced fracture of the left inferior pubic ramus. CT scan chest revealed multiple thyroid nodules which is apparently a chronic problem and has been followed up as outpatient. Ultrasound thyroid revealed multinodular goiter. Her TSH and free T4 was done recently and was normal. Patient is aware that she has multiple thyroid nodules and she has been followed up by her PCP. She was treated with narcotic pain medications and she did very well. She was able to ambulate on the day of discharge without any symptoms. She continued to have mild to moderate left lateral chest pain because of the left eighth rib fracture which was managed with the pain medication. Her routine blood work was unremarkable. She was seen by PT OT and patient was to be on her feet and able to ambulate without any difficulties. Patient's family including her daughter who is power of assistant prosecuting attorney expressed her concerns about balance issues at home as well as behavioral disturbances. Patient was seen by behavioral therapy who confirmed that the patient is not suicidal at this time and she can be discharged home. Family was concerned about hip and back home because of the frequent falls and balance problems but patient was very unsteady on her feet and was able to ambulate without any difficulties. Patient discharged home in a stable medical condition, discharged on Boston as needed for pain, continued on her chronic home medication without any changes, recommended to use incentive spirometer, recommended follow-up with PCP in 1 week. Discharge Activity: Return to Normal Activity Weight Bearing Status: Weight bearing as tolerated Call your doctor if you observe: Fever of 101 or Higher, Shortness of breath, Dizziness, Fainting spells, Chest pain, Increased palpitations (irregular heartbeat), Uncontrolled pain Home Medications: Medications to take at Discharge Losartan Potassium [Cozaar] 50 mg PO QHS 10/08/14 Cholecalciferol (Vitamin D3) [Vitamin D3] 1,000 unit PO BID 11/12/16 Cyanocobalamin (Vitamin B-12) [Vitamin B-12] 1,000 mcg PO DAILY 11/12/16 Gabapentin [Neurontin] 300 mg PO QHS 11/12/16 Escitalopram Oxalate [Lexapro] 10 mg PO DAILY 11/07/17 Meloxicam 15 mg PO DAILY 11/07/17 Hydrocodone/Acetaminophen [Boston 5-325 Tablet] 1 ea PO Q6H PRN 3 Days #10 tab 11/08/17 Following Prescrptions Were Given to Patient: Hydrocodone/Acetaminophen [Boston 5-325 Tablet] 1 ea PO Q6H PRN 3 Days #10 tab PRN Reason: Pain Primary Care Physician: Vikram Segura MD [Primary Care Provider] - Please follow up with your Primary Care Physician in: 1 week. Patient Instructions: Rib Fracture (Broken Rib), ED Fx Pelvis Disposition: Home with Home Health Minutes spent on discharge:: 32 Patient Condition:: Stable Medical Necessity - Tobacco Use Smoking Status: Former smoker Meaningful Use Info Meaningful Use Diagnoses (Choose all that apply): None applicable Code Visit Inpatient E AND M: 79685 Disch Hosp 11/09/17 1100 <Electronically signed by Gee Cameron MD> Date Gee Cameron MD Cosigner Signature (if applicable): Date CC: Vikram Segura MD; Gee Cameron Signed DISCHARGE INSTRUCTION Observed: 11/08/2017 Status: F Source: [place] 3:17 PM [facility] RE[facility] Medical Records Department [address] [place] [address] Instructions for Home/Discharge Instructions 11/08/17 1516 MR#: [id number] Acct: [id number] Name: XAVIER RAHMAN Rep #: [id number] : 1940 77 From: Gee Cameron MD PCP: Vikram Segura MD Status: ADM IN - Discharge Diagnoses Current Active Problems: Current Active and Chronic Problems Fall (Acute) Inferior pubic ramus fracture (Acute) You will use the following diet at home:: Regular Your food should be the consistency of: Regular Discharge Activity: Return to Normal Activity Weight Bearing Status: Weight bearing as tolerated Call your doctor if you observe: Fever of 101 or Higher, Shortness of breath, Dizziness, Fainting spells, Chest pain, Increased palpitations (irregular heartbeat), Uncontrolled pain Instructions: Rib Fracture (Broken Rib), ED Fx Pelvis Allergies/Adverse Reactions: Allergies Sulfa (Sulfonamide Antibiotics) Allergy (Verified 11/07/17 09:44) Rash acetaminophen [From Tylenol] Adverse Reaction (Verified 11/07/17 09:44) restless legs RESTLESS LEGS codeine Adverse Reaction (Verified 11/07/17 09:44) Nausea Ptprmet-Cny-Enz Reductase Inhibitor Adverse Reaction (Verified 11/07/17 09:44) Other MUSCLE CRAMPS Medications to take at Discharge Losartan Potassium [Cozaar] 50 mg PO QHS 10/08/14 Cholecalciferol (Vitamin D3) [Vitamin D3] 1,000 unit PO BID 11/12/16 Cyanocobalamin (Vitamin B-12) [Vitamin B-12] 1,000 mcg PO DAILY 11/12/16 Gabapentin [Neurontin] 300 mg PO QHS 11/12/16 Escitalopram Oxalate [Lexapro] 10 mg PO DAILY 11/07/17 Meloxicam 15 mg PO DAILY 11/07/17 Hydrocodone/Acetaminophen [Boston 5-325 Tablet] 1 ea PO Q6H PRN 3 Days #10 tab 11/08/17 The following prescriptions were given: Hydrocodone/Acetaminophen [[place] 5-325 Tablet] 1 ea PO Q6H PRN 3 Days #10 tab PRN Reason: Pain Primary Care Physician: Vikram Segura MD [Primary Care Provider] - Please follow up with your Primary Care Physician in: 1 week. Test Results: Test results from this visit will be discussed in further detail at your follow-up appointment, if applicable. 11/08/17 3437 <Electronically signed by Gee Cameron MD> Date Gee Cameron MD CC: Vikram Segura MD THYROID Observed: 11/08/2017 Status: F Source: [place] 10:02 AM [facility] RE[facility] Imaging Services [address] [place] [address] Thyroid MR#: [id number] Acct: [id number] Name: XAVIER RAHMAN Rep #: [id number] : 1940 F 77 From: Jadiel Irving MD PCP: Vikram Segura MD Status: ADM IN Study: Thyroid Date of Exam: 11/08/17 Exam# [id number] Ordering Dr: Gee Cameron MD STUDY: THYROID ULTRASOUND REASON FOR EXAM: Female, 77 years old. Follow-up thyroid nodules. TECHNIQUE: Ultrasound evaluation of the thyroid was performed with real-time and static rollins-scale imaging. COMPARISON: Thyroid ultrasound December 30, 2014; nuclear medicine thyroid uptake and scan February 24, 2015. FINDINGS: RIGHT LOBE: The right lobe of the thyroid gland measures 4.6 x 1.8 x 1.2 cm. There is a heterogeneous echotexture. At least 5 focal lesions are identified. The largest is in the anterior upper pole, measuring 17 x 9 x 6 mm. Posterior to this, towards the midpole is a 12 x 7 x 5 mm heterogeneous nodule. A 9 x 6 x 6 mm anechoic cyst is seen in the lateral upper to midpole. Incompletely defined, heterogeneous 11 x 8 x 8 mm solid nodule is seen at the lower pole. Adjacent to this is a second heterogeneous 12 x 8 x 10 mm solid nodule. LEFT LOBE: The left lobe of the thyroid gland measures 4.7 x 2.4 x 2.2 cm. There is a heterogeneous echotexture. At least 4 focal lesions are identified. ISTHMUS: The isthmus measures 2 mm heterogeneous 14 x 11 x 11 mm nodule with sites of internal cystic degenerative change seen at the mid upper pole. Inferior and posterior to this is a second heterogeneous 8 x 9 x 8 mm solid nodule with internal cystic degenerative change. A 10 x 9 x 7 mm heterogeneous solid nodule seen in the posterior midpole. A 14 x 11 x 11 mm heterogeneous solid nodule is present at the lower pole. The regional lymph nodes are normal. US/Thyroid IMPRESSION: Findings consistent with a multinodular goiter, as described. Solid nodules in the lower pole of the right lobe are slightly increased in size from 2015, while most of the remaining bilateral lesions are generally unchanged. Ultrasound-guided biopsy of a right thyroid nodule was performed March 2015, and correlation with the procedure nodes as to which nodule was the target of biopsy is advised. Electronically Signed: Андрей Irving MD at 14:34 EDT , Service support , CC: Vikram Segura MD; Gee Cameron Economic Manager: Signed CBC W/DIFF, AUTOMATED Collected: 11/08/2017 Status: F Source: [place] 5:40 AM [facility] REPOSITORY TYPE CODE TESTS RESULT OUT OF RANGE REFERENCE UNITS LAB L100.1000 4.4-11.0 K/mm3 Normal WBC 11.0 LAB L100.1200 4.2-5.4 M/mm3 Normal RBC 4.25 LAB L100.1300 12.0-15.0 g/dl Normal HGB 12.2 LAB L100.1400 37-47 % Normal HCT 39.4 LAB L100.1500 81-99 fL Normal MCV 92.7 LAB L100.1600 27.0-32.0 pg Normal MCH 28.7 LAB L100.1700 32-36 g/gl Low MCHC 31.0 LAB L100.1810 11.6-14.6 % Normal RDW CV 14.2 LAB L100.1820 35.1-43.9 fl High RDW SD 48.1 LAB L100.1900 150-450 K/mm3 Normal PLT 190 LAB L100.2000 6.2-12.0 fl Normal MPV 10.3 LAB L100.2100 47-70 % High NEUT% 79.1 LAB L100.2200 19-41 % Low LY% 11.1 LAB L100.2300 0-10 % Normal MONO% 7.8 LAB L100.2400 0-5 % Normal EO% 1.3 LAB L100.2500 0-1 % Normal BASO% 0.5 LAB L100.2550 0.0-0.9 % Normal IM GRAN % 0.200 Result Comment: IG% - Immature Granulocytes (promyelocytes, myelocytes and metamyelocytes) > 1% indicates that a LEFT SHIFT is Present. LAB L100.2620 2.0-7.7 X10 3/uL High Absolute Neut 8.7 LAB L100.2720 0.83-4.51 X10 3/ul Normal Absolute Lymph 1.22 Performed By: #### L100.0100 #### [facility] [address] [place], [address] BASIC METABOLIC Collected: 11/08/2017 Status: F Source: [place] PROFILE ([facility]) 5:40 AM [facility] REPOSITORY TYPE CODE TESTS RESULT OUT OF RANGE REFERENCE UNITS LAB L501.0100 74-106 mg/dL High GLU 122 Result Comment: Fasting Glucose result from 100 to 125 mg/dL suggests IMPAIRED HOMEOSTASIS per A.D.A. criteria. Please note revised GLUCOSE reference range effective 2017. LAB L501.1000 7-18 mg/dL High BUN 28 LAB L501.1100 0.55-1.02 mg/dL Normal CREAT,SERUM 0.98 Result Comment: The validity of the calculated GFR AND GFRAA in patients over 70 years has not been determined. Clinical correlation is essential. LAB L501.1110 >60 mL/min Low EST GFR 58 Result Comment: Non- GFR Calc LAB L501.1115 >60 mL/min Normal EST GFR - AA 71 Result Comment: GFR Calc LAB L501.1255 ml/min Normal Estimated CRCL 39.77 LAB L501.1300 10-20 RATIO High BUN/CRE 28.5 LAB L501.2200 8.5-10 mg/dL Normal .1 CA 8.6 LAB L501.5300 136-14 mmol/L Normal 5 NA 142 LAB L501.5600 3.5-5. mmol/L Normal 1 K 4.5 LAB L501.5900 98-107 mmol/L Normal CL 106 LAB L501.6100 21.0-3 mmol/L Normal 2.0 CO2 29.0 LAB L501.6200 5-15 Normal GAP 7 Performed By: #### L500.2500 #### [facility] [address] [place], [address] HISTORY AND PHYSICAL Observed: 11/07/2017 Status: F Source: [place] EXAM 6:43 PM [facility] REPOSITORY [facility] Medical Records Department [address] [place] [address] History and Physical 11/07/17 1420 MR#: [id number] Acct: [id number] Name: XAVIER RAHMAN Rep #: [id number] : 1940 77 From: Bernadette Javier MD PCP: Vikram Segura MD Status: ADM IN Y Location: [place] [address] Problem List (1) Fall Status: Acute (2) Inferior pubic ramus fracture Status: Acute History of Present Illness Date of Admission: 11/07/17 Chief Complaint: fall at home The patient is a 77 year old F with a history of high blood pressure, hypothyroidism and 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 She was admitted by the ED on 11/07/2017 after she fell at home on day of admission. Patient states she fell down about 5 steps on her porch. She fell on her left side and had pain to her left hip her left chest and head. She therefore came to the ED. Patient states she also fell in June/July when she was taking her dogs out and broke 1 of the bones in her toes. She did not have any lightheadedness or dizziness or palpitations and denies any loss of consciousness. She did have any of such with the first fall either. In the ED, vitals were significant for blood pressure of 175/84, temperature of 90.7, pulse rate of 81 and respiratory rate of 15. She is saturating at 97% on room air. Labs only significant for white cell count of 11.5. CT of the head was negative for any hemorrhage or skull fracture. CT of the chest demonstrated a nondisplaced eighth rib fracture on the left with no hemopneumothorax noted. Hip x-ray demonstrated a left probable inferior pubic rami fracture. CT of the pelvis without contrast done confirms a nondisplaced left inferior pubic rami fracture. She was given morphine for pain and is to be admitted and managed for left inferior pubic rami fracture and nondisplaced left 8th rib fracture. [] Past Medical History Past Medical History (Chronic Problems): Chronic Problems HTN (hypertension) (Chronic) History of hysterectomy (Chronic) Hypothyroidism (Chronic) Allergies Sulfa (Sulfonamide Antibiotics) Allergy (Verified 11/07/17 09:44) Rash acetaminophen [From Tylenol] Adverse Reaction (Verified 11/07/17 09:44) restless legs RESTLESS LEGS codeine Adverse Reaction (Verified 11/07/17 09:44) Nausea Fumrrli-Bjd-Son Reductase Inhibitor Adverse Reaction (Verified 11/07/17 09:44) Other MUSCLE CRAMPS Home Medications: Ambulatory Orders Medication Instructions Recorded Losartan Potassium [Cozaar] 50 mg PO QHS 10/08/14 Surgical History: hysterectomy, - - Surgery for right breast ductal carcinoma. Lives: With Family Smoking Status: Former smoker Alcohol: Occasional Drugs: None - *Family History Sibling History Items: Asthma - Brother Maternal History Items: Heart Disease, Stroke Paternal History Items: Heart Disease Review of Systems Constitutional: Denies: Chills, Fever, Weight Change Eyes: Denies: Blurred vision HEENT: Denies: Head Aches, Sinus Congestion, Sinus Drainage Cardiovascular: Denies: Chest Pain, Edema, Heaviness, Light Headedness, Orthopnea, Palpitations, Paroxysmal Noc. Dyspnea, Syncope Respiratory: Denies: Cough, Shortness of Breath, Shortness of breath at rest, Sputum production Gastrointestinal: Denies: Abdominal Pain, Nausea, Vomiting Genitourinary: Denies: Dysuria Musculoskeletal: Reports: - - Mild left chest pain at site of fall. Skin: Denies: Rash, Wounds Neurological: Denies: Numbness, Tingling, Focal weakness Psychiatric: Denies: Anxiety, Depression, Homicidal Ideations, Suicidal Ideations Hematologic/ Lymphatic: Denies: Easy Bruising, Easy Bleeding VTE Information - Inpt Only VTE Present on Admission: No VTE Mechan Device Prophylaxis: SCD's VTE Pharm Prophylaxis ordered?: Yes Patient Problems: Active and Suspected Problems Fall (Acute) Inferior pubic ramus fracture (Acute) - Physical Exam General: Alert, Oriented x3, Cooperative, No apparent distress HEENT: Atraumatic, PERRLA, EOMI, Normocephalic Oral: Moist Mucosa Neck: Supple, No JVD, Negative Carotid Bruits Lungs: Clear to auscultation, Normal air movement, No rhonchi, No wheeze, No rales Cardiovascular: Regular rate, Regular Rhythm, Normal S1, Normal S2, No murmurs Abdomen: Bowel Sounds Present, Soft, Non Tender, Non-Distended, No Hepato-splenomegaly Extremities: No clubbing, No cyanosis, No edema, Capillary Refill Less than 3 Seconds Skin: - - Superficial abrasions on left arm just above elbow due to fall. Musculoskeletal: No Tenderness to Palpation of Joints or Extremities Lymphatic: No Cervical, Supraclavicular, or Inguinal Adenopathy Neurological: Cranial nerves II-XII grossly intact Psych/Mental Status: Normal Affect, Appropriate, Alert and oriented to time, place, person, mood and affect Vital Signs Temp Pulse Resp BP Pulse Ox 98.7 F 71 16 180/80 H 97 11/07/17 09:27 11/07/17 13:46 11/07/17 12:27 11/07/17 13:46 11/07/17 12:27 Oxygen Delivery Method Room Air Weight: 130 lb Body Mass Index (BMI) 23.0 Laboratory Tests Past 24 Hrs WBC 11.5 H RBC 4.73 Hgb 13.5 Hct 43.3 MCV 91.5 MCH 28.5 MCHC 31.2 L Diagnostic Data Brain CT 11/07/17 09:46 IMPRESSION: Chronic involutional changes of the brain. Electronically Signed: Annabella Huddleston MD at 10:53 EDT Tel , Service support , Chest CT 11/07/17 09:46 IMPRESSION: There is nondisplaced fracture of the posterior-inferior left eighth rib. Multiple nodules are seen in the thyroid gland have nonspecific appearance largest response of the 1.5 cm. Electronically Signed: Annabella Huddleston MD at 11:19 EDT Tel , Service support , Hip/Pelvis X-Ray 11/07/17 09:46 IMPRESSION: There is possible nondisplaced fracture of the left inferior pubic ramus. Electronically Signed: Annabella Huddleston MD at 11:33 EDT Tel , Service support , Pelvis CT 11/07/17 11:41 IMPRESSION: There is an undisplaced fracture of the left inferior pubic ramus. Electronically Signed: Annabella Huddleston MD at 12:37 EDT Tel , Service support , Assessment/Plan All Active Problems Fall (Acute) Inferior pubic ramus fracture (Acute) Hypoxia (Acute) Diverticular hemorrhage (Acute) GI bleed due to NSAIDs (Acute) 1. Left Inferior pubic rami fracture due to fall * pain is well controlled. Fell off her porch. * had a fall in July too. Lives with family. * Will admit to [facility]. will get EKG to make sure she doesnt have any arrhythmia precipitating the falls. * On Boston for pain. Will continue, and add IV ketorolac prn * Fall precautions * PT/OT consult. * Fracture will likely heal conservatively; discussed with Dr Terrell on phone; he reviewed the imaging, and advocates conservative management, and to weight bear as tolerated. To follow up with Dr Junior (he is recreation attendant supervisor today) upon discharge. * may need placement for inpatient physical therapy rehab * 2.Left rib fracture * Has minimal tenderness over left chest wall area. CT of the chest showed nondisplaced eighth rib fracture on the left. * Pain control with Boston and IV ketorolac prn * Conservative management for now. * 3. Mechanical fall: * Has fallen twice in the past 3 months. For some being in July when she was walking a dog and fell onto the concrete. * Fall precautions. PT OT consult. * 4.hypertension: * Was elevated in the ED with blood pressure been in the 170s- 180s systolic. This likely due to pain. On lisinopril. Will continue. Hydralazine as needed for blood pressure systolic more than 160. * 5. Osteoarthritis s/p left hip replacement: stable. 6. DVT prophylaxis: Heparin. SCDs Code status: Counseled extensively on different types of CODE STATUS and their meaning. Patient selected to be full code. Disposition. lean manager to review for possible placement for rehab. Patient however states she is not going to rehab and family's request and home health assessment to see if patient can go home. Code Visit Inpatient E AND M: 52263 Init Hosp L2 Procedures: 27499 Advncd Care Plan 30 Min 11/07/17 1843 <Electronically signed by Bernadette Javier MD> Date Bernadette Javier MD Cosigner Signature: Date (if applicable) CC: Vikram Segura MD; Bernadette Javier MD Signed PELVIS WITHOUT IV Observed: 11/07/2017 Status: F Source: [place] CONTRAST 11:42 AM [facility] RE[facility]ITORY [facility] Imaging Services [address] [place] [address] Pelvis without IV Contrast MR#: [id number] Acct: [id number] Name: XAVIER RAHMAN Rep #: [id number] : 1940 F 77 From: Annabella Huddleston MD PCP: Vikram Segura MD Status: REG ER Study: Pelvis without IV Contrast Date of Exam: 11/07/17 Exam# [id number] Ordering Dr: Cricket Olmstead DO STUDY: CT PELVIS WITHOUT CONTRAST REASON FOR EXAM: Female, 77 years old. RADIATION DOSAGE (If Supplied By Facility): CTDIvol = ( 18.12 ) mGy, DLP = ( 470.51 ) mGycm TECHNIQUE: Transaxial imaging of the pelvis was performed with oral contrast, and without intravenous administration of contrast material. Individualized dose optimization techniques were used for this CT. COMPARISON: None. FINDINGS: Normal urinary bladder. Normal visualized small intestine. There are multiple colonic diverticula of the sigmoid colon consistent with chronic diverticulosis. There is no pelvic fluid. There is no pelvic mass lesion or lymphadenopathy. Normal visualized pelvic arteries. Normal abdominal wall. There are diffuse degenerative changes of the visualized lumbar spine and pelvis. There is demineralization of the osseous structures suggesting osteopenia. There is an undisplaced fracture of the left inferior pubic ramus. CT/Pelvis without IV Contrast IMPRESSION: There is an undisplaced fracture of the left inferior pubic ramus. Electronically Signed: Annabella Huddleston MD at 12:37 EDT Tel , Service support , CC: Cricket Olmstead DO; Vikram Segura MD Economic Manager: Signed BASIC METABOLIC Collected: 11/07/2017 Status: F Source: [place] PROFILE (BMP) 10:05 AM [facility] REPOSITORY TYPE CODE TESTS RESULT OUT OF RANGE REFERENCE UNITS LAB L501.0100 74-106 mg/dL Normal GLU 98 Result Comment: Please note revised GLUCOSE reference range effective 2017. LAB L501.1000 7-18 mg/dL High BUN 19 LAB L501.1100 0.55-1.02 mg/dL Normal CREAT,SERUM 0.80 Result Comment: The validity of the calculated GFR AND GFRAA in patients over 70 years has not been determined. Clinical correlation is essential. LAB L501.1110 >60 mL/min Normal EST GFR 74 Result Comment: Non- GFR Calc LAB L501.1115 >60 mL/min Normal EST GFR - AA 89 Result Comment: GFR Calc LAB L501.1255 ml/min Normal Estimated CRCL 48.72 LAB L501.1300 10-20 RATIO High BUN/CRE 23.7 LAB L501.2200 8.5-10 mg/dL Normal .1 CA 9.5 LAB L501.5300 136-14 mmol/L Normal 5 NA 141 LAB L501.5600 3.5-5. mmol/L Normal 1 K 4.0 LAB L501.5900 98-107 mmol/L High CL 108 LAB L501.6100 21.0-3 mmol/L Normal 2.0 CO2 26.0 LAB L501.6200 5-15 Normal GAP 7 Performed By: #### L500.2500 #### [facility] [place], [address] CBC W/DIFF, AUTOMATED Collected: 11/07/2017 Status: F Source: [place] 10:05 AM [facility] REPOSITORY TYPE CODE TESTS RESULT OUT OF RANGE REFERENCE UNITS LAB L100.1000 4.4-11.0 K/mm3 High WBC 11.5 LAB L100.1200 4.2-5.4 M/mm3 Normal RBC 4.73 LAB L100.1300 12.0-15.0 g/dl Normal HGB 13.5 LAB L100.1400 37-47 % Normal HCT 43.3 LAB L100.1500 81-99 fL Normal MCV 91.5 LAB L100.1600 27.0-32.0 pg Normal MCH 28.5 LAB L100.1700 32-36 g/gl Low MCHC 31.2 LAB L100.1810 11.6-14.6 % Normal RDW CV 14.0 LAB L100.1820 35.1-43.9 fl High RDW SD 46.8 LAB L100.1900 150-450 K/mm3 Normal PLT 228 LAB L100.2000 6.2-12.0 fl Normal MPV 11.1 LAB L100.2100 47-70 % High NEUT% 76.9 LAB L100.2200 19-41 % Low LY% 14.1 LAB L100.2300 0-10 % Normal MONO% 6.8 LAB L100.2400 0-5 % Normal EO% 1.4 LAB L100.2500 0-1 % Normal BASO% 0.4 LAB L100.2550 0.0-0.9 % Normal IM GRAN % 0.400 Result Comment: IG% - Immature Granulocytes (promyelocytes, myelocytes and metamyelocytes) > 1% indicates that a LEFT SHIFT is Present. LAB L100.2620 2.0-7.7 X10 3/uL High Absolute Neut 8.9 LAB L100.2720 0.83-4.51 X10 3/ul Normal Absolute Lymph 1.63 Performed By: #### L100.0100 #### [facility] [address] [place], [address] BRAIN/HEAD WITHOUT Observed: 11/07/2017 Status: F Source: [place] CONTRAST 9:47 AM [facility] REPOSITORY [facility] Imaging Services [address] [place] [address] Brain/Head without Contrast MR#: [id number] Acct: [id number] Name: XAVIER RAHMAN Rep #: [id number] : 1940 F 77 From: Annabella Huddleston MD PCP: Vikram Segura MD Status: REG ER Study: Brain/Head without Contrast Date of Exam: 11/07/17 Exam# [id number] Ordering Dr: Cricket Olmstead DO STUDY: CT BRAIN WITHOUT CONTRAST REASON FOR EXAM: Female, 77 years old. FALL, C/O LT RIB PAIN, SMALL LAC BACK OF HEAD, NO LOC RADIATION DOSAGE (If Supplied By Facility): CTDIvol = ( 44.99 ) mGy, DLP = ( 796.11 ) mGycm TECHNIQUE: Transaxial CT imaging of the brain was performed without administration of intravenous contrast material. Individualized dose optimization techniques were used for this CT. COMPARISON: None. FINDINGS: Normal soft tissue structures. Normal calvarium. There is mild cerebral atrophy with widening of the extra- axial spaces and ventricular dilatation. There are areas of decreased attenuation within the white matter tracts of the supratentorial brain, consistent with microvascular disease changes. Normal basal ganglia and thalami. Normal brainstem. Normal cerebellum. There is no intracranial hemorrhage. There are no findings of an acute ischemic infarction. Normal visualized paranasal sinuses. CT/Brain/Head without Contrast IMPRESSION: Chronic involutional changes of the brain. Electronically Signed: Annabella Huddleston MD at 10:53 EDT Tel , Service support , CC: Crciket Olmstead DO; Vikram Segura MD Economic Manager: Signed CHEST WITHOUT Observed: 11/07/2017 Status: F Source: [place] CONTRAST 9:47 AM [facility] REPOSITORY [facility] Imaging Services [address] [place] [address] Chest without Contrast MR#: [id number] Acct: [id number] Name: XAVIER RAHMAN Rep #: [id number] : 1940 F 77 From: Annabella Huddleston MD PCP: Vikram Segura MD Status: REG ER Study: Chest without Contrast Date of Exam: 11/07/17 Exam# [id number] Ordering Dr: Cricket Olmstead DO STUDY: CT CHEST WITHOUT CONTRAST REASON FOR EXAM: Female, 77 years old. Left rib pain RADIATION DOSAGE (If Supplied By Facility): CTDIvol = ( 9.50 ) mGy, DLP = ( 337.16 ) mGycm TECHNIQUE: Transaxial imaging was performed without the administration of intravenous contrast material. Individualized dose optimization techniques were used for this CT. COMPARISON: None. FINDINGS: Multiple nodules are seen in the thyroid gland have nonspecific appearance largest response of the 1.5 cm. The lungs are normal. There is no demonstrated pleural abnormality. Normal heart and pericardium. Normal mediastinum. Normal hilar regions. Normal unenhanced pulmonary arteries. Normal aorta arch and descending thoracic aorta. There are multi-level degenerative changes of the thoracic spine.There is nondisplaced fracture of the posterior-inferior left eighth rib. There is no demonstrated abnormality of the visualized upper abdomen. CT/Chest without Contrast IMPRESSION: There is nondisplaced fracture of the posterior-inferior left eighth rib. Multiple nodules are seen in the thyroid gland have nonspecific appearance largest response of the 1.5 cm. Electronically Signed: Annabella Huddleston MD at 11:19 EDT Tel , Service support , CC: Cricket Olmstead DO; Vikram Segura MD Economic Manager: Signed HIP 2-3 VIEWS WITH Observed: 11/07/2017 Status: F Source: [place] PELVIS 9:47 AM [facility] REPOSITORY [facility] Imaging Services [address] [place] [address] Hip 2-3 Views with Pelvis MR#: [id number] Acct: [id number] Name: XAVIER RAHMAN Rep #: [id number] : 1940 F 77 From: Annabella Huddleston MD PCP: Vikram Segura MD Status: REG ER Study: Hip 2-3 Views with Pelvis Date of Exam: 11/07/17 Exam# [id number] Ordering Dr: Cricket Olmstead DO STUDY: X-RAY - PELVIS AND LEFT HIP REASON FOR EXAM: Female, 77 years old. FALL FROM 5 FT STOOP ONTO CONCRETE. INJURY TO LEFT RIB AREA, LEFT HIP, HEAD TECHNIQUE: Radiological exam, hip, unilateral, with pelvis when performed; 2 or 3 views. COMPARISON: None. FINDINGS: There is a non-specific bowel gas pattern. Normal visualized soft tissue structures. There is diffuse demineralization of the osseous structures. There is narrowing with cortical sclerosis and osteophyte formation of the sacroiliac joint consistent with degenerative osteoarthritic changes. There is possible nondisplaced fracture of the left inferior pubic ramus. There are degenerative changes of the pubic symphysis with articular narrowing and sclerosis. Normal bilateral ischial tuberosities. There are osteoarthritic changes of the femoral head with marginal osteophyte formation. Normal acetabulum. There is mild articular joint space narrowing of the hip. RAD/Hip 2-3 Views with Pelvis IMPRESSION: There is possible nondisplaced fracture of the left inferior pubic ramus. Electronically Signed: Annabella Huddleston MD at 11:33 EDT Tel , Service support , CC: Cricket Olmstead DO; Vikram Segura MD Economic Manager: Signed ERYTHROCYTE SED RATE Collected: 10/27/2017 Status: F Source: [place] 10:19 AM [facility] REPOSITORY TYPE CODE TESTS RESULT OUT OF RANGE REFERENCE UNITS LAB L102.0000 0-30 mm/hr Normal SED RATE 18 Performed By: #### L101.9900, L100.0100, L100.9950 #### [facility] [address] [place], [address] CBC W/DIFF, AUTOMATED Collected: 10/27/2017 Status: F Source: [place] 10:19 AM [facility] REPOSITORY TYPE CODE TESTS RESULT OUT OF RANGE REFERENCE UNITS LAB L100.1000 4.4-11.0 K/mm3 Normal WBC 5.7 LAB L100.1200 4.2-5.4 M/mm3 Normal RBC 4.52 LAB L100.1300 12.0-15.0 g/dl Normal HGB 13.1 LAB L100.1400 37-47 % Normal HCT 41.5 LAB L100.1500 81-99 fL Normal MCV 91.8 LAB L100.1600 27.0-32.0 pg Normal MCH 29.0 LAB L100.1700 32-36 g/gl Low MCHC 31.6 LAB L100.1810 11.6-14.6 % Normal RDW CV 14.0 LAB L100.1820 35.1-43.9 fl High RDW SD 46.8 LAB L100.1900 150-450 K/mm3 Normal PLT 238 LAB L100.2000 6.2-12.0 fl Normal MPV 11.0 LAB L100.2100 47-70 % Normal NEUT% 57.7 LAB L100.2200 19-41 % Normal LY% 24.9 LAB L100.2300 0-10 % High MONO% 13.0 LAB L100.2400 0-5 % Normal EO% 2.8 LAB L100.2500 0-1 % High BASO% 1.4 LAB L100.2550 0.0-0.9 % Normal IM GRAN % 0.200 Result Comment: IG% - Immature Granulocytes (promyelocytes, myelocytes and metamyelocytes) > 1% indicates that a LEFT SHIFT is Present. LAB L100.2620 2.0-7.7 X10 3/uL Normal Absolute Neut 3.3 LAB L100.2720 0.83-4.51 X10 3/ul Normal Absolute Lymph 1.42 Performed By: #### L101.9900, L100.0100, L100.9950 #### [facility] [address] [place], [place], [address] RETIC PANEL Collected: 10/27/2017 Status: F Source: [place] 10:19 AM [facility] REPOSITORY TYPE CODE TESTS RESULT OUT OF RANGE REFERENCE UNITS LAB L101.0000 0.5-1.5 % Normal RETIC 0.82 LAB L101.0060 3.00-15.90 % Low IM RET FRACTION 2.20 LAB L101.0090 30-35 pg Low RET-HE 27.9 LAB L101.0110 1.0-7.9 % Normal IPF 1.9 Result Comment: Low PLT + Low IPF suggest a bone marrow production disorder Low PLT + high IPF suggests peripheral destruction (e.g.ITP, TTP, HIT, DIC, autoimmune) or bone marrow recovery Trending of serial IPF measurements is recommended when evaluating for bone marrow respones Value above normal range indicates an increase in RBC cellular response from bone marrow. Performed By: #### L101.9900, L100.0100, L100.9950 #### [facility] [address] [place], [place], [address] COMPREHENSIVE METABOLIC Collected: 10/27/2017 Status: F Source: [facility] 10:19 AM [facility] REPOSITORY TYPE CODE TESTS RESULT OUT OF RANGE REFERENCE UNITS LAB L501.0100 74-106 mg/dL Normal GLU 77 Result Comment: Please note revised GLUCOSE reference range effective 2017. LAB L501.1000 7-18 mg/dL Normal BUN 14 LAB L501.1100 0.55-1.02 mg/dL Normal CREAT,SERUM 0.77 Result Comment: The validity of the calculated GFR AND GFRAA in patients over 70 years has not been determined. Clinical correlation is essential. LAB L501.1110 >60 mL/min Normal EST GFR 77 Result Comment: Non- GFR Calc LAB L501.1115 >60 mL/min Normal EST GFR - AA 94 Result Comment: GFR Calc LAB L501.1300 10-20 RATIO Normal BUN/CRE 18.2 LAB L501.1500 6.4-8.2 g/dL T Normal PROT 7.6 LAB L501.1800 3.2-5.0 g/dL Normal ALB 3.9 LAB L501.1950 2.2-4.2 g/dL Normal GLOB 3.7 LAB L501.2000 0.9-2.4 RATIO Normal A/G 1.1 LAB L501.2200 8.5-10.1 mg/dL CA Normal 9.1 LAB L501.4100 15-37 U/L Normal AST 19 LAB L501.4305 45-117 U/L Normal ALK P 91 LAB L501.4405 13-56 U/L Normal ALT 20 LAB L501.4600 0.20-1.00 mg/dL T Normal BILI 0.40 LAB L501.5300 136-145 mmol/L NA Normal 144 LAB L501.5600 3.5-5.1 mmol/L K Normal 3.6 LAB L501.5900 98-107 mmol/L High CL 108 LAB L501.6100 21.0-32.0 mmol/L Normal CO2 29.0 LAB L501.6200 5-15 Normal GAP 7 Performed By: #### L500.4050, L501.6710, L501.9520, L503.6030, L503.6550, L506.0400 #### [facility] [address] [place], [address] CRP Collected: 10/27/2017 Status: F Source: [place] 10:19 AM [facility] REPOSITORY TYPE CODE TESTS RESULT OUT OF RANGE REFERENCE UNITS LAB L501.6710 0.0-3.0 mg/L High 3.03 C-REACTIVE PROT Result Comment: C-Reactive Protein (CRP) provides useful information for the diagnosis, therapy and monitoring of inflammatory processes and associated diseases. For the evaluation of Relative Risk for Cardiovascular Disease, a High Sensitivity CRP (HSCRP) should be ordered. Performed By: #### L500.4050, L501.6710, L501.9520, L503.6030, L503.6550, L506.0400 #### [facility] [address] [place], [place], [address] THYROID STIM HORMONE Collected: 10/27/2017 Status: F Source: [place] (TSH) 10:19 AM [facility] REPOSITORY TYPE CODE TESTS RESULT OUT OF RANGE REFERENCE UNITS LAB L501.9520 0.358-3.74 uIU/mL Normal TSH 1.44 Performed By: #### L500.4050, L501.6710, L501.9520, L503.6030, L503.6550, L506.0400 #### [facility] [place], [place], [address] IRON+IRON BINDING Collected: 10/27/2017 Status: F Source: [place] CAPACITY 10:19 AM [facility] REPOSITORY TYPE CODE TESTS RESULT OUT OF RANGE REFERENCE UNITS LAB L503.6075 250-450 ug/dL TIBC Normal 382 LAB L503.6150 50-170 ug/dL IRON Normal 61 LAB L503.6250 15.0-55.0 % IRON Normal SATURATION 16.0 Performed By: #### L500.4050, L501.6710, L501.9520, L503.6030, L503.6550, L506.0400 #### [facility] [address] [place], [place], [address] FERRITIN Collected: 10/27/2017 Status: F Source: [place] 10:19 AM [facility] REPOSITORY TYPE CODE TESTS RESULT OUT OF RANGE REFERENCE UNITS LAB L503.6550 8-252 ng/mL Normal FERRITIN 32 Performed By: #### L500.4050, L501.6710, L501.9520, L503.6030, L503.6550, L506.0400 #### [facility] [address] [place], [address] T4 FREE DIRECT Collected: 10/27/2017 Status: F Source: [place] 10:19 AM [facility] REPOSITORY TYPE CODE TESTS RESULT OUT OF RANGE REFERENCE UNITS LAB L506.0400 0.76-1.46 ng/dL Normal T4 FREE 0.93 DIRECT Performed By: #### L500.4050, L501.6710, L501.9520, L503.6030, L503.6550, L506.0400 #### [facility] [address] [place], [address] VITAMIN B12 Collected: 10/27/2017 Status: F Source: [place] 10:19 AM [facility] REPOSITORY TYPE CODE TESTS RESULT OUT OF REFERENCE UNITS RANGE LAB L503.0105 211-911 pg/mL High Vitamin B12 1141 Performed By: #### L503.0105, L506.1000 #### [facility] [address] [place], [address] VITAMIN D,25 HYDROXY Collected: 10/27/2017 Status: F Source: [place] 10:19 AM [facility] REPOSITORY TYPE CODE TESTS RESULT OUT OF REFERENCE UNITS RANGE LAB L506.1000 29.95-100.01 ng/mL Low Vitamin D 26.3 25-OH Result Comment: Vitamin D 25(OH) Status Range Deficiency <20 ng/mL (50nmol/L) Insuffciency 20 - 30 ng/mL (50 - 75 nmol/L) Sufficiency 30 - 100 ng/mL (75 - 250 nmol/L) Toxicity >100 ng/mL (>250 nmol/L) Performed By: #### L503.0105, L506.1000 #### [facility] [address] [place], [address] ANTINUCLEAR ANTIBODIES Collected: 10/27/2017 Status: F Source: [place] DIRECT 10:19 AM [facility] REPOSITORY TYPE CODE TESTS RESULT OUT OF RANGE REFERENCE UNITS LAB L3100.5475 Negative Normal Negative EDWINA-DIRECT Result Comment: Performed at: [address] [id number] Cup Setter Lockstitch: Jourdan Church PhD, Phone: [phone] Performed By: #### L3100.5475 #### [facility] (refer to report for specific site) refer to report for address and phone number FOOT MIN 3 VIEWS Observed: 10/03/2017 Status: F Source: [place] 5:04 PM [facility] REPOSITORY [facility] Imaging Services [address] [place] [address] Foot min 3 Views MR#: [id number] Acct: [id number] Name: XAVIER RAHMAN Rep #: [id number] : 1940 F 77 From: Melchor Mills DO PCP: Colton BOONE,Vikram Status: REG CLI Study: Foot min 3 Views Date of Exam: 10/03/17 Exam# [id number] Ordering Dr: Ha Cortez MD STUDY: X-RAY - RIGHT FOOT CLINICAL: Female, 77 years old. Follow-up fracture. TECHNIQUE: 3 view(s) of the foot. COMPARISON: August 25, 2017. FINDINGS: Normal talus, calcaneus, and tarsal bones. Stable mild arthrosis visualized subtalar, talonavicular, calcaneocuboid, tarsal and tarsometatarsal articulations. Again seen is the fracture of the base of the fifth metatarsal. The alignment is preserved. There is evidence of minimal healing when compared to prior study. The first through fourth metatarsals are unremarkable. There is degenerative arthrosis of the metatarsophalangeal joint of the hallux . Normal tibial and fibular sesamoid bones. Normal interphalangeal joint of the great toe. Normal phalanges of the great toe. Normal second through fifth metatarsophalangeal joints. Normal interphalangeal joints and phalanges of the lesser toes. The soft tissue structures are unremarkable. RAD/Foot min 3 Views IMPRESSION: Healing fracture of the base of the fifth metatarsal without loss of alignment. Electronically Signed: Melchor Mills DO at 11:59 EDT Tel [phone], Service support , CC: Royer Cortez MD; Vikram Segura MD Economic Manager: Signed FOOT MIN 3 VIEWS Observed: 08/25/2017 Status: F Source: [place] 5:03 PM [facility] REPOSITORY [facility] Imaging Services [address] [place] [address] Foot min 3 Views MR#: [id number] Acct: [id number] Name: XAVIER RAHMAN Rep #: [id number] : 1940 F 77 From: Esteban Sánchez MD PCP: Vikram Segura MD Status: REG CLI Study: Foot min 3 Views Date of Exam: 08/25/17 Exam# [id number] Ordering Dr: Shellie Yanes STUDY: X-RAY - RIGHT FOOT CLINICAL: Female, 77 years old. Fall. Pain. TECHNIQUE: 3 view(s) of the foot. COMPARISON: None. FINDINGS: Normal talus, calcaneus, and tarsal bones. Normal visualized subtalar, talonavicular, calcaneocuboid, tarsal and tarsometatarsal articulations. There is nondisplaced fracture at the base of the fifth metatarsal. There is degenerative arthrosis of the metatarsophalangeal joint of the hallux . Normal tibial and fibular sesamoid bones. Normal interphalangeal joint of the great toe. Normal phalanges of the great toe. Normal second through fifth metatarsophalangeal joints. Normal interphalangeal joints and phalanges of the lesser toes. The soft tissue structures are unremarkable. RAD/Foot min 3 Views IMPRESSION: Fifth metatarsal fracture. Electronically Signed: Esteban Sánchez MD at 17:25 EDT , Service support , CC: Shellie Yanes; Vikram Segura MD Economic Manager: Signed SACRUM-COCCYX MIN 2 VIEWS Observed: 06/22/2017 Status: F Source: [place] 4:13 PM [facility] REPOSITORY [facility] Imaging Services [address] [place] [address] Sacrum-Coccyx min 2 Views MR#: [id number] Acct: [id number] Name: XAVIER RAHMAN Rep #: [id number] : 1940 F 77 From: Daisy Hudson MD PCP: Vikram Segura MD Status: REG CLI Study: Sacrum-Coccyx min 2 Views Date of Exam: 06/22/17 Exam# [id number] Ordering Dr: Héctor Schwartz MD STUDY: X-RAY - SACRUM/COCCYX REASON FOR EXAM: Female, 77 years old. Fell onto the floor this morning TECHNIQUE: 3 view(s) of the sacrum and coccyx were obtained. COMPARISON: None. FINDINGS: There is degenerative arthrosis of the bilateral sacroiliac joints. There is demineralization of the sacral ala. There is an anterior angulation of the coccygeal segments. Poorly visualized coccygeal segments. There are degenerative changes of the visualized lumbar spine. The presacral soft tissue structures are unremarkable. There is atherosclerosis. Total right hip arthroplasty. Degenerative changes of the symphysis pubis. RAD/Sacrum-Coccyx min 2 Views IMPRESSION: Acute angulation of the sacrococcyx junction may represent an acute or chronic injury. Osteoporosis, degenerative changes, arterial sclerosis. Limited coccygeal visualization. Electronically Signed: Daisy Hudson MD at 7:52 EST , Service support , CC: Vikram Segura MD; Héctor Schwartz MD Economic Manager: Signed ALLERGIES ALLERGIES DATE TYPE / CODE NAME / CODE REACTION SEVERITY SOURCE 11/23/2017 Drug Sulfa Rash Unknown [facility] Allergy/416 (Sulf[facility] 118678(SNOM Antibiotics)/F00 Repository [address] CT) 9330013(RXNORM) 11/23/2017 Drug Yhvzcau-Tgm-Ite Other Unknown [facility] All[facility]/416 [facility] 300550(SNOM Inhibitor/E61185 Repository ED CT) 0095(RXNORM) 11/23/2017 Drug codeine/[id number] Nausea Unknown [facility] Allergy/416 50(RXNORM) Hospital 775600(SNOM Repository ED CT) 11/23/2017 Drug acetaminophen/F0 restless legs Unknown [facility] Allergy/416 91839788(RXNORM) Hospital 629563(SNOM Repository ED CT) ENCOUNTERS ENCOUNTERS ADMIT/DISCHARGE ACCOUNT ADMITTING ENCOUNTER LOCATION SOURCE NUMBER CLASS 05/05/2018 [id number] Ambulatory [facility] ing:MFPLAB Repository 05/03/2018 [id number] Ambulatory [facility] 3 [facility] ing:MFPLAB Repository 11/23/2017/ [id number] Emergency [facility] [facility] 8 8 [facility] ing:ED Repository 11/07/2017/ [id number] Bernadette Javier Inpatient [facility] 8 6 [facility] Encounter [facility] ing:SF6Snhu: Repository AO033Uiz: 1 11/07/2017 [id number] Bernadette Javier Ambulatory BMSBuilding:B [place] 4 [place] [facility] Repository 11/07/2017 [id number] Bernadette Javier Ambulatory BMSBuilding:B Sarah Ann 0 [place] [facility] Repository 10/31/2017 [id number] Ambulatory [facility] Max[facility] 1 [facility] ing:RAD.FUTUR Repository E 10/27/2017 [id number] Ambulatory Sarah Ann [facility] 3 [facility] ing:MTLAB Repository 10/03/2017 [id number] Ambulatory Sarah Ann [facility] ing:MTRAD Repository 08/25/2017 [id number] Ambulatory [place] Sarah Ann 0 [facility] ing:MTRAD Repository 06/22/2017 [id number] Ambulatory [facility] [facility] ing:MTRAD Repository PAYERS PAYERS ENCOUNTER GUARANTOR PAYER SUBSCRIBER SOURCE 05/05/2018 JOSE MANUEL Ndiaye Primary X[place]IER [place] [id number] Insurance:[facility] MOOREDOB: [facility] [id number] Number: Repository [address]Hmg: 330 [id number] [phone] () Date:[id number] [address] [place] [address]VO: 05/05/2018 Secondary NOT GIVENUNK [place] Insurance:SELF PAY [facility] Number: Effective Repository Date:2018-05-05 05/03/2018 JOSE MANUEL Ndiaye Primary XAVIER Goodman [id number] [facility] [address] MEDICAREPolicy [id number] Number: Repository [id number]: 330 [id number] [phone] () Date:[id number] [address] [place] [address]PB: 05/03/2018 Secondary NOT GIVENUNK [place] Insurance:SELF PAY [facility] Number: Effective Repository Date:2018-05-03 11/23/2017 JOSE MANUEL C Primary Insurance:MMO XAVIER Goodman [id number] [facility] MOOREDOB: [facility] RDUNIT Number: [id number] [id number] Repository [address]Jyj: ([phone]) Date:[id number] [phone] (HP) [address] [address]LB: 11/23/2017 Secondary NOT GIVENUNK Max[place] Insurance:SELF PAY [facility] Number: Effective Repository Date:2017-11-23 11/07/2017 JOSE MANUEL C Primary Insurance:MMO XAVIER Goodman [id number] MEDICARESharp Mesa VistaDOB: [facility] RDUNIT Number: [id number] [id number] Repository [address]Fvh: ([phone]) Date:[id number] [phone] (HP) [address] [address]YE: 11/07/2017 Secondary NOT GIVENUNK Maxine Insurance:SELF PAY [facility] Number: Effective Repository Date:2017-11-07 11/07/2017 JOSE MANUEL C Primary Insurance:MMO XAVIER Tata JeffreyMaxine [id number] MEDICAREPolicy MOOREDOB: [facility] RDUNIT Number: [id number] [id number] Repository [address]Mgx: (330) Date:[id number] [phone] (HP) [address] [place] [address]UO: 11/07/2017 Secondary NOT GIVENUNK [place] Insurance:SELF PAY [facility] Number: Effective Repository Date:2017-11-07 11/07/2017 JOSE MANUEL C Primary Insurance:MMO XAVIER Jeffreyoster [id number] MEDICAREPolicy MOOREDOB: [facility] RDUNIT Number: [id number] [id number] Repository [address]Jqm: ([phone]) Date:[id number] [phone] () [address] [place] [phone]: 11/07/2017 Secondary NOT GIVENUNK Sarah Ann Insurance:SELF PAY [facility] Number: Effective Repository Date:2017-11-07 10/31/2017 JOSE MANUEL C Primary Insurance:MMO XAVIER Goodman [id number] MEDICAREPolicy MOOREDOB: [facility] RDUNIT Number: [id number] [id number] Repository [address]Pjm: ([phone]) Date:5275-03-22CQ [phone] (HP) [address] [place] [phone]: 10/31/2017 Secondary NOT GIVENUNK Sarah Ann Insurance:SELF PAY [facility] Number: Effective Repository Date:2017-10-31 10/27/2017 JOSE MANUEL C Primary Insurance:MMO XAVIER [id number] MEDICAREPolicy MOOREDOB: [facility] RDUNIT Number: [id number] [id number] Repository [address]Asj: ([phone]) Date:5456-67-80FL [phone] (HP) [address] [phone]: 10/27/2017 Secondary NOT GIVENUNK Maxine Insurance:SELF PAY [facility] Number: Effective Repository Date:2017-10-27 10/03/2017 JOSE MANUEL C Primary Insurance:MMO XAVIER [id number] MEDICAREPolicy MOOREDOB: [facility] RDUNIT Number: [id number] [id number] Repository [address]Nax: ([phone]) Date:6839-11-00UR [phone] (HP) [address] [address]IE: 10/03/2017 Secondary NOT GIVENUNK Sarah Ann Insurance:SELF PAY [facility] Number: Effective Repository Date:2017-10-03 08/25/2017 JOSE MANUEL C Primary Insurance:MMO XAVIER [id number] MEDICAREPolicy MOOREDOB: [facility] Number: [id number] [id number] Repository [address]Lly: ([phone]) Date:9800-98-70CI [phone] (HP) [address] [address]XG: 08/25/2017 Secondary NOT GIVENUNK Sarah Ann Insurance:SELF PAY [facility] Number: Effective Repository Date:2017-08-25 06/22/2017 JOSE MANUEL C Primary Insurance:MMO XAVIER [id number] MEDICAREPolicy MOOREDOB: [facility] Number: [id number], [place] [id number] Repository [address]Xtb: ([phone]) Date:4587-22-10[phone] (HP) [address] [place] [phone]: 06/22/2017 Secondary NOT GIVENUNK Sarah Ann Insurance:SELF PAY [facility] Number: Effective Repository Date:2017-06-22
== END ==
PROVIDERS: Nurse Practitioner Family; Family Provider Family Medicine; PCP Family Medicine; Visit Provider Family Medicine
DX: Z00.00 Encounter for general adult medical examination without abnormal findings (principal)
CPT/HCPCS: 36415; 80053; 80061; 82306; 84443; 85025

== ENCOUNTER → 2018-05-05 16:36 | Outpatient (CLI) | payer MEDICARE, SELFPAY ==
[2018-05-05 18:04] LABS: Absolute Lymphocyte Count 1.89 X10^3/ul (0.83-4.51); Absolute Neutrophil Count 3.4 X10^3/uL (2.0-7.7); Basophil# 0.09 X10^3/uL; Basophil% 1.4 % (0-1); Eosinophil# 0.22 X10^3/uL; Eosinophils% 3.4 % (0-5); Hematocrit 34.7 % (37-47); Hemoglobin 11.1 g/dl (12.0-15.0); Lymphocyte # 1.89 X10^3/ul (4.0); Lymphocyte % 29.1 % (19-41); Mean Corpuscular Hgb 30.5 pg (27.0-32.0); Mean Corpuscular Volume 95.3 fL (81-99); Mean Platelet Vol. 10.9 fl (6.2-12.0); Monocyte# 0.84 X10^3/uL; Monocyte% 12.9 % (0-10); Neutrophil # 3.43 X10^3/uL (2.7-7.7); Neutrophil % 52.9 % (47-70); Platelet Count 220 K/mm3 (150-450); RBC Distribution Width CV 14.1 % (11.6-14.6); RBC Distribution Width SD 46.5 fl (35.1-43.9); Red Blood Count 3.64 M/mm3 (4.2-5.4); White Blood Count 6.5 K/mm3 (4.4-11.0)
[2018-05-05 18:06] LABS: POSITIVE COUNT NO; POSITIVE DIFFERENTIAL NO; POSITIVE MORPHOLOGY NO
[2018-05-05 18:24] LABS: Anion Gap 8 (5-15); BUN 17 mg/dL (7-18); BUN/Creat Ratio 20.1 RATIO (10-20); Calcium,Total 8.9 mg/dL (8.5-10.1); Chloride 108 mmol/L (98-107); Creatinine, Serum 0.85 mg/dL (0.55-1.02); EST Glomerular Filtration Rate 69 mL/min (>60); Est Glom Filt Rate - Afr Amer 84 mL/min (>60); Glucose 90 mg/dL (74-106); Potassium 3.7 mmol/L (3.5-5.1); Sodium Level 145 mmol/L (136-145)
--- OUTSIDE RECORDS SUMMARY | 2018-07-10 07:52 | XMS RPT_ITS ---
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 Date:2658-58-97EV [address] [place] [address] 79417DO: 05/03/2018 Secondary NOT GIVENUNK Maxine Insurance:SELF PAY [facility] Number: Effective Repository Date:2018-05-03 11/23/2017 JOSE MANUEL C Primary Insurance:MMO XAVIER Goodman [id number] [facility] Number: [id number] [id number] Repository [address]Pyh: (330) Date:4678-36-13LY [phone] (HP) [address], [place] [address]WC: 11/23/2017 Secondary NOT GIVENUNK Maxine Insurance:SELF PAY [facility] Number: Effective Repository Date:2017-11-23 11/07/2017 JOSE MANUEL C Primary Insurance:MMO XAVIER Goodman [id number] [facility] Number: [id number] [id number] Repository [address]Nba: (330) Date:6369-50-80CF [phone] (HP) [address], [place] [address]SH: 11/07/2017 Secondary NOT GIVENUNK Maxine Insurance:SELF PAY [facility] Number: Effective Repository Date:2017-11-07 11/07/2017 JOSE MANUEL C Primary Insurance:MMO XAVIER Tata JeffreyMaxine [id number] MEDICAREPolicy MOOREDOB: [facility] RDUNIT Number: [id number] [id number] Repository [address]Mwx: (330) Date:0783-51-68JQ [phone] (HP) [address] [place] [address]HI: 11/07/2017 Secondary NOT GIVENUNK Maxine Insurance:SELF PAY [facility] Number: Effective Repository Date:2017-11-07 11/07/2017 JOSE MANUEL C Primary Insurance:MMO XAVIER Jeffreyoster [id number] MEDICAREPolicy MOOREDOB: [facility] RDUNIT Number: [id number] [id number] Repository [address]Lae: (330) Date:5683-21-99XG [phone] () [address] [place] [phone]: 11/07/2017 Secondary NOT GIVENUNK [place] Insurance:SELF PAY [facility] Number: Effective Repository Date:2017-11-07 10/31/2017 JOSE MANUEL C Primary Insurance:MMO XAVIER Goodman [id number] MEDICAREPolicy MOOREDOB: [facility] RDUNIT Number: [id number] [id number] Repository [address]Osn: (330) Date:1568-18-26RL [phone] (HP) [address] [place] [phone]: 10/31/2017 Secondary NOT GIVENUNK [place] Insurance:SELF PAY [facility] Number: Effective Repository Date:2017-10-31 10/27/2017 JOSE MANUEL C Primary Insurance:MMO XAVIER [id number] MEDICAREPolicy MOOREDOB: [facility] RDUNIT Number: [id number] [id number] Repository [address]Vmx: (330) Date:0768-79-24HK [phone] (HP) [address], [place] [address]MB: 10/27/2017 Secondary NOT GIVENUNK Maxine Insurance:SELF PAY [facility] Number: Effective Repository Date:2017-10-27 10/03/2017 JOSE MANUEL C Primary Insurance:MMO XAVIER [id number] MEDICAREPolicy MOOREDOB: [facility] RDUNIT Number: [id number] [id number] Repository [address]Kal: (330) Date:6802-08-31FQ [phone] (HP) [address], [place] [address]KZ: 10/03/2017 Secondary NOT GIVENUNK [place] Insurance:SELF PAY [facility] Number: Effective Repository Date:2017-10-03 08/25/2017 JOSE MANUEL C Primary Insurance:MMO XAVIER [id number] MEDICAREPolicy MOOREDOB: [facility] Number: [id number] [id number] Repository 114[address]Art: (330) Date:0492-42-66RE [phone] (HP) [address], [place] [address]WP: 08/25/2017 Secondary NOT GIVENUNK [place] Insurance:SELF PAY [facility] Number: Effective Repository Date:2017-08-25 06/22/2017 JOSE MANUEL C Primary Insurance:MMO XAVIER [id number] MEDICAREPolicy MOOREDOB: [facility] Number: [id number], [place] [id number] Repository [address]Jwv: (330) Date:0161-32-16ZH [phone] (HP) [address] [place] [address]PU: 06/22/2017 Secondary NOT GIVENUNK [place] Insurance:SELF PAY [facility] Number: Effective Repository Date:2017-06-22
== END ==
PROVIDERS: Family Provider Family Medicine; PCP Family Medicine; Visit Provider Family Medicine
DX: K57.92 Diverticulitis of intestine, part unspecified, without perforation or abscess without bleeding (principal)
CPT/HCPCS: 36415; 80048; 85025

== ENCOUNTER → 2018-05-24 14:52 | Outpatient (CLI) | payer MEDICARE, SELFPAY ==
--- NOTE | 2018-05-24 15:00 | BI_ITS ---
MAMMOGRAPHY - BILATERAL SCREENING REASON FOR EXAM: Female, 77 years old. Routine annual screening examination. PERTINENT HISTORY: Personal history of breast cancer. Prior right lumpectomy. TECHNIQUE: Digital bilateral breast mike (3D mammographic acquisition) in the CC and MLO projections. 2-D mediolateral oblique (MLO) and craniocaudad (CC) views of both breasts were obtained. CAD: Full Field Digital Mammography with Computer Added Detection was performed. COMPARISON: Comparison is made with prior mammogram dated March 19, 2017 and November 13, 2015. FINDINGS: Breast Composition: The breasts are heterogeneously dense, which may obscure small masses. Since prior study, there has been increased number of calcifications in the cluster in the upper lateral portion of the right breast. A biopsy is recommended for further evaluation. The patient is status post right lumpectomy. No other significant abnormalities are identified. BI/SCREENING MAMM (CAD), BILAT IMPRESSION: Increase in number of the calcifications in the cluster of calcifications in the upper-outer quadrant of the right breast as described. A biopsy is recommended. ASSESSMENT CATEGORY: BIRADS Category 4: Suspicious - Biopsy Should Be Considered. A letter regarding these results will be sent to the patient by the facility within 30 days. Approximately 10% of breast cancers are not detected by mammography. A normal mammogram should not delay biopsy of a clinically suspicious abnormality. [id number] Electronically Signed: Willard Flaherty MD at 8:21 EST , Service support ,
== END ==
PROVIDERS: Family Provider Family Medicine; PCP Family Medicine; Referring Provider Family Medicine; Visit Provider Family Medicine
DX: Z12.31 Encounter for screening mammogram for malignant neoplasm of breast (principal)
CPT/HCPCS: 77063; 77067

== ENCOUNTER → 2018-06-22 10:25 | Outpatient (CLI) | payer MEDICARE, SELFPAY ==
[2018-06-15 13:28] VITALS: BMI 23.7
--- NOTE | 2018-06-22 | IMM_PTH ---
PATIENT: XAVIER RAHMAN LOC: [facility] U#:[id number] AGE/SX: 84/F ROOM: RE06/22/[address]: Dr. Cricket Javier MD : 1940 BED: DIS: SPEC #: [id number] RECD: 06/23/18 11:29 STATUS: JAYLENE REPerez #: [id number] XOCHILT: 06/22/18 00:[address]: Cricket Javier DEPT: IMMUNOHISTOCHEMISTRY RECD BY: Devika Jerez ENTERED: 06/23/18 11:31 SP TYPE: IMMUNO OTHR DR: Dr. Vikram Segura MD Tissues: Right breast, NOS Procedures: CALPONIN-1 (add) CK5-6 (add) CK8 (add) E-CAD (add) HER2 TAHIRA (add) KI-67 (add) P53 (add) NM (add) P40 (add) ER (initial) PHYSICIAN & INSTITUTION [place] [id number] SPECIMEN INFORMATION: Tissue Source: Right breast Clinical Info: Right breast upper outer quadrant microcalcifications Specimen Number: [id number] #1 & 2 CPT code: 81121, 00021 x8, 47332 x3 METHODOLOGY: Deparaffinized sections of prefer/formalin-fixed tissue or PAP/DQ stained slides are incubated with monoclonal/polyclonal antibodies/oligonucleotide probes. Localization is made via biotin free immunoperoxidase method. Appropriate controls are performed and reacted as expected. Results on target cell population are indicated in the following table: RESULTS: ANTIBODY / CLONE RESULT Block 1 P53 (DO-7) negative Ki-67 (30-9) negative CK8 (83lwwkS23) positive CK5-6 (D5 & 1684) positive Calponin-1 (NW879Y) positive P40 (BC28) positive E-Cad (ECH-6) positive MORPHOMETRIC ANALYSIS ER (clone 6F11) 50%, strong NM (clone 16/1E2) 22%, strong Her-2Neu (clone CB11) 1+ The prognostic test for HER2 is performed on formalin-fixed paraffin embedded tissue. A 3+ (positive) staining pattern is defined as intense, homogeneous, complete, circumferential membranous staining in >10% of contiguous tumor cells. A similar weak (2+) staining pattern is interpreted as equivocal. HIEU follow-up testing is recommended for all equivocal cases. Positivity/negativity for ER/NM is reported if > or < 1% of the tumor cells are immuno- reactive, respectively. The ASCO/CAP criteria is used for scoring. Reference: Journal of Clinical Oncology, 2013; 31:3039-6037 & 2010; 16:6197-3591. Duration of fixation: 8 Hrs; Sample Adequate: Yes. These assays have not been validated on decalcified tissues. Results should be interpreted with caution given the likelihood of false negativity on decalcified specimens. Block 2 P40 (BC28) positive Calponin-1 (SO108A) positive These tests were developed and their performance characteristics determined by [facility]. They may not have been cleared or approved by the U.S. Food and Drug Administration. The FDA has determined that such clearance or approval is not necessary. INTERPRETATION: Right breast, stereotactic core biopsy: Adenosis with mild cytologic atypia. Positive for estrogen receptors (favorable prognostic indicator). Positive for progesterone receptors (favorable prognostic indicator). Negative for overexpression of YNZ7tle. AM:idania 06/27/18 Case has been reviewed in consultation with Dr. Rangel who concurs with the above diagnosis. IDC:SJ
--- NOTE | 2018-06-22 11:20 | BRBX_PTH ---
PATIENT: XAVIER RAHMAN LOC: [facility] U#:[id number] AGE/SX: 84/F ROOM: RE06/22/[address]: Dr. Cricket Javier MD : 1940 BED: DIS: SPEC #: [id number] RECD: 06/22/18 13:20 STATUS: JAYLENE FERNANDO #: [id number] XOCHILT: 06/22/18 11:[address]: Cricket Javier DEPT: SURGICAL PATHOLOGY RECD BY: Helder Florez ENTERED: 06/22/18 14:36 SP TYPE: BREAST BX OTHR DR: Dr. Vikram Segura MD Tissues: Right breast, NOS Procedures: Surgery Specimen Level IV HEADER OPERATION: Right stereotactic breast biopsy PRE-OP DIAGNOSIS: Right breast upper outer quadrant microcalcifications TISSUE SUBMITTED: Right breast core tissue ISCHEMIC TIME: 1 minute FIXATION TIME: 8 hours MICROSCOPIC DIAGNOSIS Right breast, stereotactic core biopsy: Adenosis with focal mild cytologic atypia. AM:idania 06/23/18 COMMENT Immunohistochemistry ([id number]) supports the diagnosis. Case has been reviewed in consultation with Dr. Rangel who concurs with the above diagnosis. IDC:SJ MICROSCOPIC DESCRIPTION Slides are reviewed. GROSS DESCRIPTION Received is one container labeled with the patient's name and not further designated. The specimen consists of multiple irregular and elongated fragments of pink-yellow soft tissue that in aggregate measure 7 x 5 x 2 cm. The specimen is totally submitted in three cassettes. / AM:idania 06/22/18 TC:5 CPT: 22681
--- NOTE | 2018-06-22 11:42 | PCM.OPRPT ---
Problem List (1) Microcalcification of right breast on mammogram Status: Acute Report of Operation Date of Procedure: 06/22/18 Pre-Operative Diagnosis: Microcalcifications of right breast Post-Operative Diagnosis: Same Surgery/Procedure Performed:: Right stereotactic breast biopsy Type of Anesthesia:: Local Estimated Blood Loss (mL): < 25 cc Description of Procedure: Patient was brought into the mammography unit. Placed all the [place] table in the supine position the right breast was brought down through the opening. A lateral to medial view was obtained. ?15 degrees views were obtained. I targeted on the microcalcifications. I prepped the breast with Betadine. I injected 1% lidocaine plain. A skin johana was made. I placed the needle in the prefire position. It looked good. I injected more local. I fired the needle. I injected more local. 360 degrees circumferential biopsies were obtained. Microcalcifications were identified in my specimen. I backed the needle off 7 mm. I placed a small Gelfoam titanium clip into the wound. Needle was removed. Steri-Strips are applied sterile dressings were applied and the patient tolerated the procedure well. - Admit VTE Documentation VTE Present on Admission: No VTE Mechan Device Prophylaxis: None VTE Pharm Prophylaxis ordered?: No Reason prophylaxis not ordered:: Treatment Not Indicated
== END ==
PROVIDERS: Family Provider Family Medicine; PCP Family Medicine; Referring Provider Surgery; Visit Provider Surgery
DX: R92.0 Mammographic microcalcification found on diagnostic imaging of breast (principal); I10 Essential (primary) hypertension; E03.9 Hypothyroidism, unspecified; E55.9 Vitamin D deficiency, unspecified; Z85.3 Personal history of malignant neoplasm of breast; Z96.641 Presence of right artificial hip joint; Z79.899 Other long term (current) drug therapy
CPT/HCPCS: 19081; 88305; 88341; 88342; J7050; A4648

== ENCOUNTER → 2018-06-27 12:10 | Outpatient (CLI) | payer MEDICARE, SELFPAY ==
[2018-06-15 13:28] VITALS: BMI 23.7
[2018-06-27 15:33] LABS: Absolute Lymphocyte Count 1.74 X10^3/ul (0.83-4.51); Absolute Neutrophil Count 5.9 X10^3/uL (2.0-7.7); Basophil# 0.05 X10^3/uL; Basophil% 0.6 % (0-1); Eosinophil# 0.31 X10^3/uL; Eosinophils% 3.4 % (0-5); Hematocrit 38.1 % (37-47); Hemoglobin 11.7 g/dl (12.0-15.0); Lymphocyte # 1.74 X10^3/ul (4.0); Lymphocyte % 19.3 % (19-41); Mean Corp Hgb Conc 30.7 g/gl (32-36); Mean Corpuscular Hgb 29.2 pg (27.0-32.0); Mean Platelet Vol. 11.3 fl (6.2-12.0); Monocyte# 0.95 X10^3/uL; Monocyte% 10.5 % (0-10); Neutrophil # 5.94 X10^3/uL (2.7-7.7); Platelet Count 249 K/mm3 (150-450); RBC Distribution Width CV 13.9 % (11.6-14.6); RBC Distribution Width SD 46.5 fl (35.1-43.9); Red Blood Count 4.01 M/mm3 (4.2-5.4)
[2018-06-27 15:51] LABS: Anion Gap 10 (5-15); BUN 16 mg/dL (7-18); BUN/Creat Ratio 19.3 RATIO (10-20); Calcium,Total 8.7 mg/dL (8.5-10.1); Chloride 106 mmol/L (98-107); Creatinine, Serum 0.83 mg/dL (0.55-1.02); EST Glomerular Filtration Rate 71 mL/min (>60); Est Glom Filt Rate - Afr Amer 86 mL/min (>60); Glucose 117 mg/dL (74-106); Potassium 3.6 mmol/L (3.5-5.1); Sodium Level 141 mmol/L (136-145)
[2018-06-27 16:09] LABS: POSITIVE COUNT NO; POSITIVE DIFFERENTIAL NO; POSITIVE MORPHOLOGY NO
== END ==
PROVIDERS: Family Provider Family Medicine; PCP Family Medicine; Referring Provider Family Medicine; Visit Provider Family Medicine
DX: K57.30 Diverticulosis of large intestine without perforation or abscess without bleeding (principal)
CPT/HCPCS: 36415; 80048; 85025

== ENCOUNTER 2018-06-27 19:03 | Inpatient (IN) | payer MEDICARE, SELFPAY ==
[2018-06-15 13:28] VITALS: BMI 23.7
[2018-06-27] VITALS (10 sets, daily range): BP systolic 139–188; BP diastolic 66–112; PULSE 69–90; RESP 13–20; TEMP 36.8–37.1; O2SAT 94–99; BMI 23.0
--- NOTE | 2018-06-27 19:59 | ED.VISSUMM ---
- ER Visit Summary Date of Service: 06/27/18 Chief Complaint: Rectal bleeding History of Present Illness: The patient is a 78 F history of prior lower GI bleed from diverticular bleed. Patient denies any blood thinners nor aspirin. She is a history of hypertension and prior lower GI bleed. She states she has not had a colonoscopy for years. States she started having bright red blood today and she has had intermittent bleeding all day. States that there is clots. She denies nausea or vomiting. She denies abdominal pain. She denies hematemesis. Physical Examination: Well-appearing older female. Vital signs are stable. She is afebrile. She does not look septic or toxic. She does seem slightly pale. HEENT exam unremarkable. Neck nontender no lymphadenopathy. Lungs clear to auscultation bilaterally. Heart regular rhythm no murmur. Abdomen soft and nontender. Normal bowel sounds no peritoneal signs. Patient is moving all 4 extremities. Calves are nontender without edema. Neurologically she is awake and alert with no focal motor deficits. Skin is unremarkable other than pale. Rectal exam showed both bright red blood and black stool concerning for both a lower GI bleed and possibly upper. Test Results: CBC shows acute anemia with a hemoglobin of 8.8 per previously it was over 11 she is dropped 3 g today alone. Electrolytes show potassium 3.1 normal BUN/creatinine and gap. PT/INR normal. Emergency Department Course and Treatment: Patient treated as suspected lower GI bleed. She may have both upper and lower GI bleed due to the black stool and bright red blood. She will be placed on IV Protonix. Due to the amount of blood loss she has had a day she will be typed and crossed and transfused 1 unit. Treatment Plan: I will speak to the hospitalist about admission. Disposition: Admission Impression: Acute GI bleed Acute anemia Acute blood transfusion This note was generated with [employer] dictation software. It may contain incorrect words, spelling, and punctuation that were not noted in review of the chart prior to signing ED Disposition - Plan for ED Patient: Referrals: Vikram Segura MD [Primary Care Provider] -
[2018-06-27 20:07] LABS: Hematocrit 27.8 % (37-47); Hemoglobin 8.8 g/dl (12.0-15.0); Mean Corp Hgb Conc 31.7 g/gl (32-36); Mean Corpuscular Volume 91.7 fL (81-99); Mean Platelet Vol. 10.4 fl (6.2-12.0); Platelet Count 232 K/mm3 (150-450); RBC Distribution Width CV 14.1 % (11.6-14.6); RBC Distribution Width SD 46.7 fl (35.1-43.9); Red Blood Count 3.03 M/mm3 (4.2-5.4); White Blood Count 7.9 K/mm3 (4.4-11.0)
[2018-06-27 20:10] LABS: International Normalized Ratio 1.2; Prothrombin Time (Protime)PT. 14.8 SECONDS (11.7-14.9)
[2018-06-27 20:17] LABS: Scan Indicated on CBC? Y/N NO
[2018-06-27 20:19] LABS: Anion Gap 10 (5-15); BUN 21 mg/dL (7-18); BUN/Creat Ratio 26.9 RATIO (10-20); Calcium,Total 7.8 mg/dL (8.5-10.1); Chloride 109 mmol/L (98-107); Creatinine, Serum 0.78 mg/dL (0.55-1.02); EST Glomerular Filtration Rate 76 mL/min (>60); Est Glom Filt Rate - Afr Amer 92 mL/min (>60); Estimated Creatinine Clearance 38.35 ml/min; Glucose 120 mg/dL (74-106); Potassium 3.1 mmol/L (3.5-5.1); Sodium Level 142 mmol/L (136-145)
--- NOTE | 2018-06-27 22:02 | HP.PCM_ITS ---
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 Qualifiers: Laterality: right Qualified Code(s): D05.11 - Intraductal carcinoma in situ of right breast (7) HTN (hypertension) Status: Chronic Qualifiers: Hypertension type: essential hypertension Qualified Code(s): I10 - Essential (primary) hypertension History of Present Illness Date of Admission: 06/27/18 Chief Complaint: Lightheaded, dyspnea, syncopal episode, black and bright blood stools The patient is a 78 y/o F w/ PMHx: HTN, HLD, Thyroid Nodule s/p resection, Breast CA (R Breast Ductal Carcinoma) s/p remote lumpectomy only w/ recent ~ 1 week prior Bx R breast nodule w/ pending pathology, OA, Former Tobacco use who presents to the [facility] ED on 06/27/18 with history of ~ 4-5 months prior similar less extensive episode of both dark black as well as bright red blood per rectum which resolved with now recurrent episode over the last 24 hours of bright red blood and black foul smelling stool, several episodes, worsening through day w/ PCP office call with request for presentation to the ED; however, patient deferred but was willing to have Hgb check at office noted to be 11.7 at approximately noon with then onset prior to ED presentation of more severe loose dark black stools w/ lightheaded, dizziness as well as dyspnea, worse with exertion with syncopal episode while in the restroom with no trauma, quick resum ption of consciousness with then transition to ED for evaluation. Patient notes having associated lower abdominal cramping discomfort with these events. In the ED work-up included T 98.2, heart rate 80, BP 141/67, respiratory rate 18, 99% on room air with orthostatic vital signs performed and notable, BC with WBC 7.9, hemoglobin 8.8, platelets 232 without differential performed, coag studies with INR 1.2, BMP with potassium 3.1, chloride 109, BUN/Cr 21/0.78, glucose 120. Most prior hemoglobin noted earlier in the day at 12:11 PM 11.7. 4 unit PRBC ordered per ED. Patient additionally administered IV pantoprazole infusion. Given notable presentation D discussed patient with surgery, Dr. Correa who was amenable to evaluation of patient. 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) HTN (hypertension) (Chronic) History of hysterectomy (Chronic) Hypothyroidism (Chronic) Medical History: Medical History (Last Reviewed 06/16/18 @ 10:32 by Cricket Javier MD) Fall (Acute) W19.XXXA Inferior pubic ramus fracture (Acute) S32.599A HTN (hypertension) (Chronic) I10 Hypothyroidism (Chronic) E03.9 Arthritis M19.90 Diverticulosis K57.90 Ductal carcinoma in situ (DCIS) of right breast D05.11 Hypercholesterolemia E78.00 Vitamin D deficiency E55.9 Allergies atorvastatin [From Lipitor] Allergy (Mild, Verified 06/27/18 19:07) muscle aches lisinopril Allergy (Mild, Verified 06/27/18 19:07) cough rosuvastatin [From Crestor] Allergy (Mild, Verified 06/27/18 19:07) muscle aches alendronate sodium [From Fosamax] Allergy (Unknown, Verified 06/27/18 19:07) unknown Sulfa (Sulfonamide Antibiotics) Allergy (Verified 06/27/18 19:07) Rash acetaminophen [From Tylenol] Adverse Reaction (Verified 06/27/18 19:07) restless legs RESTLESS LEGS codeine Adverse Reaction (Verified 06/27/18 19:07) Nausea [id number] Reductase Inhibitor Adverse Reaction (Verified 06/27/18 19:07) Other MUSCLE CRAMPS Home Medications: Ambulatory Orders Medication Instructions Recorded Losartan Potassium [Cozaar] 50 mg PO QHS 10/08/14 Cholecalciferol (VIT D3) [Vitamin 1,000 unit PO DAILY 06/27/18 D] Escitalopram Oxalate [Lexapro] 20 mg PO DAILY 06/27/18 Gabapentin [Neurontin] 300 mg PO QHS 06/27/18 Ibuprofen 400 mg PO PRN PRN 06/27/18 Meloxicam 7.5 mg PO PRN PRN 06/27/18 Surgical History: Surgical History (Last Reviewed 06/16/18 @ 10:32 by Cricket Javier MD) History of hysterectomy (Chronic) Z90.710 History of left mastoidectomy Z90.89 History of lumpectomy of right breast Z98.890 History of right hip replacement Z96.641 History of thyroid surgery Z98.890 Surgical History: - - R breast ductal carcinoma lumpectomy, recent to current presentation R breast lump Bx, right total hip replacement, thyroid nodule resection, hysterectomy. 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 Tobacco Use: Non-smoker Alcohol: Occasional - Patient has one [place] nightly. Drugs: None - *Family History Sibling Family History: Family History (Last Reviewed 06/16/18 @ 10:32 by Cricket Javier MD) Mother Heart disease CVA (cerebral vascular accident) Father Heart disease History Items: Asthma - Brother Maternal Family History: Family History (Last Reviewed 06/16/18 @ 10:32 by Cricket Javier MD) Mother Heart disease CVA (cerebral vascular accident) Father Heart disease History Items: Heart Disease, Stroke Paternal Family History: Family History (Last Reviewed 06/16/18 @ 10:32 by Cricket Javier MD) Mother Heart disease CVA (cerebral vascular accident) Father Heart disease History Items: Heart Disease Review of Systems Constitutional: Reports: Malaise, Weakness, Fatigue. Denies: Chills, Fever, Weight Change HEENT: Denies: Head Aches, Sinus Congestion, Sinus Drainage Cardiovascular: Reports: Light Headedness, Syncope. Denies: Chest Pain, Palpitations Respiratory: Reports: Shortness of Breath, Shortness of breath at rest, Shortness of breath upon exertion. Denies: Cough, Sputum production Gastrointestinal: Reports: Abdominal Pain, Diarrhea, Melena. Denies: Nausea, Vomiting Genitourinary: Denies: Dysuria Musculoskeletal: Reports: Joint Pain. Denies: Joint Tenderness Skin: Denies: Rash, Wounds Neurological: Denies: Numbness, Tingling, Focal weakness Psychiatric: Reports: Anxiety, Depression. Denies: Homicidal Ideations, Suicidal Ideations Hematologic/ Lymphatic: Reports: Anemia. Denies: Easy Bruising, Easy Bleeding VTE Information - Inpt Only VTE Present on Admission: No VTE Mechan Device Prophylaxis: SCD's VTE Pharm Prophylaxis ordered?: No Reason prophylaxis not ordered:: Medical Contraindication Patient Problems: Active and Suspected Problems (Last Reviewed 06/16/18 @ 10:32 by Cricket Javier MD) GI bleed (Acute) Syncope and collapse (Acute) Acute blood loss anemia (Acute) Subjective: Seated upright in ED bed, fatigued and pale appearing. Objective: Physical Examination: General: awake, alert, oriented x 3 and cooperative, seated upright in the ED bed in no apparent distress but fatigued appearing. Skin: Extremely pale pallor, no evidence of increased turgor, no icterus or cyanosis. HEENT: AT/NC, EOMI, PERRLA, dry MM, no carotid bruits or JVD noted. Lungs: CTA bilaterally, moderate effort, mild decrease BL bases, no rales, ronchi or wheezing. Heart: Mildly tachycardic with regular rhythm; no gallop, rub audible. Abdomen: soft, NTTP, ND, hyperactive BS, no HSM. Extremities: no cyanosis, clubbing, or edema. Neurological: patient awake, alert, oriented x 3; cognitive function intact; pupils equally reactive to light and accomodation; cranial nerves II-XII grossly normal, moving all 4 extremities, no focal deficits, strength severely globally decreased secondary to acute presentation. Psychiatric: affect appears fatigued, no acute evidence of depressive or anxiety feelings. - Physical Exam Vital Signs Temp Pulse Resp BP Pulse Ox 98.2 F 70 13 156/70 H 99 06/27/18 19:09 06/27/18 21:22 06/27/18 21:22 06/27/18 21:22 06/27/18 21:22 Oxygen Delivery Method Room Air Weight: 130 lb Body Mass Index (BMI) 23.0 Laboratory Tests Past 24 Hrs 06/27/18 06/27/18 06/27/18 19:15 19:15 19:15 WBC 7.9 RBC 3.03 L Hgb 8.8 L Hct 27.8 L MCV 91.7 MCH 29.0 MCHC 31.7 L RDW 14.1 RDW Differential 46.7 H Plt Count 232 MPV 10.4 PT 14.8 INR 1.2 Sodium 142 Potassium 3.1 L Chloride 109 H Carbon Dioxide 23.0 Anion Gap 10 BUN 21 H Creatinine 0.78 Estim Creat Clear Calc 38.35 Est GFR (MDRD) Af Amer 92 Est GFR (MDRD) Non-Af 76 BUN/Creatinine Ratio 26.9 H Glucose 120 H Calcium 7.8 L Blood Type Antibody Screen Crossmatch 06/27/18 06/27/18 19:15 19:15 WBC RBC Hgb Hct MCV MCH MCHC RDW RDW Differential Plt Count MPV PT INR Sodium Potassium Chloride Carbon Dioxide Anion Gap BUN Creatinine Estim Creat Clear Calc Est GFR (MDRD) Af Amer Est GFR (MDRD) Non-Af BUN/Creatinine Ratio Glucose Calcium Blood Type O POSITIVE Antibody Screen NEGATIVE Crossmatch See Detail Assessment/Plan All Active Problems (Last Reviewed 06/16/18 @ 10:32 by Cricket Javier MD) Microcalcification of right breast on mammogram (Acute) GI bleed (Acute) Syncope and collapse (Acute) Acute blood loss anemia (Acute) Fall (Acute) Inferior pubic ramus fracture (Acute) The patient is a 78 y/o F w/ PMHx: HTN, HLD, Thyroid Nodule s/p resection, Breast CA (R Breast Ductal Carcinoma) s/p remote lumpectomy only w/ recent ~ 1 week prior Bx R breast nodule w/ pending pathology, OA, Former Tobacco use who presents to the [facility] ED on 06/27/18 with history of ~ 4-5 months prior similar less extensive episode of both dark black as well as bright red blood per rectum which resolved with now recurrent episode over the last 24 hours of bright red blood and black foul smelling stool, several episodes, worsening through day w/ PCP office call with request for presentation to the ED; however, patient deferred but was willing to have Hgb check at office noted to be 11.7 at ap proximately noon with then onset prior to ED presentation of more severe loose dark black stools w/ lightheaded, dizziness as well as dyspnea, worse with exertion with syncopal episode while in the restroom with no trauma, quick resumption of consciousness with then transition to ED for evaluation. (1) Acute GI Bleed w/ resultant Acute Blood Loss Anemia: Patient w/ mixture of bright red blood as well as dark black appearing stools, early 06/27/18 Hgb noon 11.7-->Admission Hgb 8.8, notable drop, + orthostatic in the ED, syncopal event associated, will admit to ICU given notably symptomatic with sudden hemoglobin drop with concern for upper GI bleed potential, maintain on IVFs, obtain serial H+H q 4 hours, T+S w/ cross for PRBC administration with plan to administration 2 units with 4 total requested per ED, maintain on IV PPI, Dr. Correa consulted and will perform endoscopy in AM. If clinically worsens as discussed with surgery would have emergent endoscopy. (2) Hx R Breast DCIS: Status post remote lumpectomy, no chemotherapy at that time, recent breast biopsy for noted lump, pathology pending. (3) Hypertension: Continue home regimen including losartan with hold parameters given acute presentation and orthostasis, PRN hydralazine. (4) Hyperlipidemia: Not on regimen, defer to outpatient. (5) Anxiety and Depression: Continue home Lexapro regimen. (6) History of thyroid nodule: Status post resection, had been prior noted is hypothyroid however thyroid function studies have been normal. (7) Osteoarthritis, chronic: Holding patient PRN ibuprofen and meloxicam. (8) RLS: Will continue home nightly Neurontin which she notes she takes for restless leg syndrome. (9) Former tobacco use: Encouraged continued tobacco cessation. (10) GERD: IV PPI as noted. (11) DVT prophylaxis: SCDs, defer any chemoprophylaxis given acute presentation #1. Code Visit Inpatient E&M: 65284 Init Hosp L3
[2018-06-28] VITALS (46 sets, daily range): BP systolic 93–230; BP diastolic 37–105; PULSE 57–88; RESP 13–21; TEMP 36.5–36.9; O2SAT 92–100; BMI 23.5
[2018-06-28] MEDS: Losartan Potassium 50 MG Tablet PO ×2 (00:34→21:39)
[2018-06-28] MEDS: Gabapentin 300 MG Capsule PO ×2 (00:35→21:39)
[2018-06-28] MEDS: 0.9% Normal Saline 1,000 ML 100 ML IV (00:52)
[2018-06-28] MEDS: hydrALAZINE 20 MG/ML Vial 10 MG IV ×4 (01:55→18:18)
[2018-06-28] MEDS: Morphine 2 MG/ML Syringe IV (02:48)
[2018-06-28] MEDS: 0.9% NaCl Peripheral Flush Adult/Peds IV ×4 (02:48→18:18)
[2018-06-28] MEDS: Metoprolol Tartrate 5 MG/5 ML Vial IV ×2 (03:20→04:28)
[2018-06-28] MEDS: LORazepam 2 MG/ML Syringe 0.5 MG IV (03:20)
[2018-06-28 05:17] LABS: Absolute Lymphocyte Count 1.88 X10^3/ul (0.83-4.51); Absolute Neutrophil Count 5.5 X10^3/uL (2.0-7.7); Basophil# 0.07 X10^3/uL; Basophil% 0.8 % (0-1); Eosinophils% 2.3 % (0-5); Hematocrit 32.4 % (37-47); Hemoglobin 10.4 g/dl (12.0-15.0); Lymphocyte # 1.88 X10^3/ul (4.0); Lymphocyte % 21.8 % (19-41); Mean Corp Hgb Conc 32.1 g/gl (32-36); Mean Corpuscular Hgb 29.1 pg (27.0-32.0); Mean Corpuscular Volume 90.5 fL (81-99); Mean Platelet Vol. 10.4 fl (6.2-12.0); Monocyte# 1.03 X10^3/uL; Monocyte% 11.9 % (0-10); Neutrophil # 5.45 X10^3/uL (2.7-7.7); Neutrophil % 63.1 % (47-70); POSITIVE COUNT NO; POSITIVE DIFFERENTIAL NO; POSITIVE MORPHOLOGY NO; Platelet Count 177 K/mm3 (150-450); RBC Distribution Width CV 14.5 % (11.6-14.6); RBC Distribution Width SD 46.3 fl (35.1-43.9); Red Blood Count 3.58 M/mm3 (4.2-5.4); White Blood Count 8.6 K/mm3 (4.4-11.0)
[2018-06-28 05:32] LABS: ALB/GLOB Ratio 1.2 RATIO (0.9-2.4); AST(SGOT) 17 U/L (15-37); Alanine Aminotransfer ALT/SGPT 15 U/L (13-56); Albumin, Serum 3.2 g/dL (3.2-5.0); Alkaline Phosphatase 66 U/L (45-117); Anion Gap 8 (5-15); BUN 16 mg/dL (7-18); BUN/Creat Ratio 22.8 RATIO (10-20); Calcium,Total 8.3 mg/dL (8.5-10.1); Chloride 114 mmol/L (98-107); EST Glomerular Filtration Rate 86 mL/min (>60); Est Glom Filt Rate - Afr Amer 104 mL/min (>60); Estimated Creatinine Clearance 38.35 ml/min; Globulin 2.6 g/dL (2.2-4.2); Glucose 113 mg/dL (74-106); Potassium 3.5 mmol/L (3.5-5.1); Protein, Total 5.8 g/dL (6.4-8.2); Sodium Level 147 mmol/L (136-145)
--- NOTE | 2018-06-28 07:07 | CON.PCM_ITS ---
Reason for Consult Date of Consultation: 06/28/18 Reason for Consultation: Gastrointestinal hemorrhage History of Present Illness: The patient is a 78-year-old female, with a history as outlined below, who presented to the emergency department on June 27 with complaints of bright red blood per rectum of one days duration. The patient does report associated abdominal discomfort, which began the day prior to the onset of the patient's blood loss. She does report having GI blood loss previously, but never to this extent. The patient does report a previous history of diverticular bleed. It does appear that she is prescribed both meloxicam and ibuprofen in her home environment. On presentation to the emergency department, the patient was noted to be afebrile and hemodynamically stable. She was maintaining appropriate oxygen saturations on room air. Laboratory evaluation revealed a hemoglobin of 8.8 g/dL. The patient does appear to have a baseline hemoglobin somewhere between 11 and 13 g/dL. INR was normal at 1.2. Chemistry profile was notable for a potassium of 3.1. The patient was placed on twice daily PPI therapy. She was subsequently admitted to the medical intensive care unit for ongoing management. Overnight, the patient did receive a transfusion of 2 units of packed red blood cells. The patient's hemoglobin incremented appropriately. 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) HTN (hypertension) (Chronic) History of hysterectomy (Chronic) Hypothyroidism (Chronic) Medical History: Medical History (Last Reviewed 06/16/18 @ 10:32 by Cricket Javier MD) Fall (Acute) W19.XXXA Inferior pubic ramus fracture (Acute) S32.599A HTN (hypertension) (Chronic) I10 Hypothyroidism (Chronic) E03.9 Arthritis M19.90 Diverticulosis K57.90 Ductal carcinoma in situ (DCIS) of right breast D05.11 Hypercholesterolemia E78.00 Vitamin D deficiency E55.9 Allergies atorvastatin [From Lipitor] Allergy (Mild, Verified 06/27/18 19:07) muscle aches lisinopril Allergy (Mild, Verified 06/27/18 19:07) cough rosuvastatin [From Crestor] Allergy (Mild, Verified 06/27/18 19:07) muscle aches alendronate sodium [From Fosamax] Allergy (Unknown, Verified 06/27/18 19:07) unknown Sulfa (Sulfonamide Antibiotics) Allergy (Verified 06/27/18 19:07) Rash acetaminophen [From Tylenol] Adverse Reaction (Verified 06/27/18 19:07) restless legs RESTLESS LEGS codeine Adverse Reaction (Verified 06/27/18 19:07) Nausea Zgdmwgu-[id number]-[id number] Reductase Inhibitor Adverse Reaction (Verified 06/27/18 19:07) Other MUSCLE CRAMPS Home Medications: Ambulatory Orders Medication Instructions Recorded Losartan Potassium [Cozaar] 50 mg PO QHS 10/08/14 Cholecalciferol (VIT D3) [Vitamin 1,000 unit PO DAILY 06/27/18 D] Escitalopram Oxalate [Lexapro] 20 mg PO DAILY 06/27/18 Gabapentin [Neurontin] 300 mg PO QHS 06/27/18 Ibuprofen 400 mg PO PRN PRN 06/27/18 Meloxicam 7.5 mg PO PRN PRN 06/27/18 Surgical History: Surgical History (Last Reviewed 06/16/18 @ 10:32 by Cricket Javier MD) History of hysterectomy (Chronic) Z90.710 History of left mastoidectomy Z90.89 History of lumpectomy of right breast Z98.890 History of right hip replacement Z96.641 History of thyroid surgery Z98.890 Surgical History: - - R breast ductal carcinoma lumpectomy, recent to current presentation R breast lump Bx, right total hip replacement, thyroid nodule resection, hysterectomy. 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 Tobacco Use: Non-smoker Alcohol: Occasional - Patient has one [place] nightly. Drugs: None - *Family History Sibling Family History: Family History (Last Reviewed 06/16/18 @ 10:32 by Cricket Javier MD) Mother Heart disease CVA (cerebral vascular accident) Father Heart disease History Items: Asthma - Brother Maternal Family History: Family History (Last Reviewed 06/16/18 @ 10:32 by Cricket Javier MD) Mother Heart disease CVA (cerebral vascular accident) Father Heart disease History Items: Heart Disease, Stroke Paternal Family History: Family History (Last Reviewed 06/16/18 @ 10:32 by Cricket Javier MD) Mother Heart disease CVA (cerebral vascular accident) Father Heart disease History Items: Heart Disease Review of Systems Constitutional: Reports: Weakness, Fatigue Eyes: Denies: Blurred vision, Double vision HEENT: Denies: Head Aches, Sinus Congestion, Sinus Drainage Cardiovascular: Denies: Chest Pain, Palpitations Respiratory: Denies: Cough, Shortness of breath at rest, Sputum production Gastrointestinal: Reports: Abdominal Pain, Hematochezia, Nausea, Melena Genitourinary: Denies: Dysuria Musculoskeletal: Denies: Joint Pain, Joint Tenderness Skin: Denies: Rash, Wounds Neurological: Denies: Numbness, Tingling, Focal weakness Psychiatric: Reports: Anxiety Hematologic/ Lymphatic: Reports: Anemia, Hx of blood transfusion Patient Problems: Active and Suspected Problems (Last Reviewed 06/16/18 @ 10:32 by Cricket Javier MD) GI bleed (Acute) Syncope and collapse (Acute) Acute blood loss anemia (Acute) Objective: The patient's most recent lab work, culture data and imaging studies have all been personally reviewed. - Physical Exam General: Alert, Oriented x3, Cooperative, No apparent distress HEENT: Atraumatic, PERRLA, Normocephalic Oral: No Gingival or Mucosal Lesions/ Ulcerations Neck: Supple, No Nodes, Trachea Midline Lungs: Normal air movement, No rhonchi, No wheeze, No rales Cardiovascular: Regular rate, Regular Rhythm, Normal S1, Normal S2, No murmurs Abdomen: Bowel Sounds Present, Soft, Non Tender Extremities: No clubbing, No cyanosis, No edema Skin: No breakdown Musculoskeletal: No Tenderness to Palpation of Joints or Extremities Lymphatic: No Cervical, Supraclavicular, or Inguinal Adenopathy Neurological: Neuro grossly intact Vital Signs Temp Pulse Resp BP Pulse Ox 36.7 C 67 16 175/70 H 95 06/28/18 04:00 06/28/18 07:00 06/28/18 07:00 06/28/18 07:00 06/28/18 07:00 Oxygen Delivery Method Room Air Weight: 135 lb 5.821 oz Body Mass Index (BMI) 23.5 Intake and Output for Last 24 Hours 06/26/18 06/27/18 06/28/18 23:59 23:59 23:59 Intake Total 0 / 0 1581 / 1581 Output Total 550 / 550 Balance 0 / 0 1031 / 1031 Laboratory Tests Past 24 Hrs 06/27/18 06/27/18 06/27/18 19:15 19:15 19:15 WBC 7.9 RBC 3.03 L Hgb 8.8 L Hct 27.8 L MCV 91.7 MCH 29.0 MCHC 31.7 L RDW 14.1 RDW Differential 46.7 H Plt Count 232 MPV 10.4 Immature Gran % (Auto) Neut % (Auto) Lymph % (Auto) Hyde % (Auto) Eos % (Auto) Baso % (Auto) Absolute Neuts (auto) Absolute Lymphs (auto) Total Counted PT 14.8 INR 1.2 Sodium 142 Potassium 3.1 L Chloride 109 H Carbon Dioxide 23.0 Anion Gap 10 BUN 21 H Creatinine 0.78 Estim Creat Clear Calc 38.35 Est GFR (MDRD) Af Amer 92 Est GFR (MDRD) Non-Af 76 BUN/Creatinine Ratio 26.9 H Glucose 120 H Calcium 7.8 L Total Bilirubin AST ALT Alkaline Phosphatase Total Protein Albumin Globulin Albumin/Globulin Ratio Blood Type Antibody Screen Crossmatch 06/27/18 06/27/18 06/28/18 19:15 19:15 05:05 WBC 8.6 RBC 3.58 L Hgb 10.4 L Hct 32.4 L MCV 90.5 MCH 29.1 MCHC 32.1 RDW 14.5 RDW Differential 46.3 H Plt Count 177 MPV 10.4 Immature Gran % (Auto) 0.100 Neut % (Auto) 63.1 Lymph % (Auto) 21.8 Hyde % (Auto) 11.9 H Eos % (Auto) 2.3 Baso % (Auto) 0.8 Absolute Neuts (auto) 5.5 Absolute Lymphs (auto) 1.88 Total Counted Not Reportable PT INR Sodium Potassium Chloride Carbon Dioxide Anion Gap BUN Creatinine Estim Creat Clear Calc Est GFR (MDRD) Af Amer Est GFR (MDRD) Non-Af BUN/Creatinine Ratio Glucose Calcium Total Bilirubin AST ALT Alkaline Phosphatase Total Protein Albumin Globulin Albumin/Globulin Ratio Blood Type O POSITIVE Antibody Screen NEGATIVE Crossmatch See Detail 06/28/18 05:05 WBC RBC Hgb Hct MCV MCH MCHC RDW RDW Differential Plt Count MPV Immature Gran % (Auto) Neut % (Auto) Lymph % (Auto) Hyde % (Auto) Eos % (Auto) Baso % (Auto) Absolute Neuts (auto) Absolute Lymphs (auto) Total Counted PT INR Sodium 147 H Potassium 3.5 Chloride 114 H Carbon Dioxide 25.0 Anion Gap 8 BUN 16 Creatinine 0.70 Estim Creat Clear Calc 38.35 Est GFR (MDRD) Af Amer 104 Est GFR (MDRD) Non-Af 86 BUN/Creatinine Ratio 22.8 H Glucose 113 H Calcium 8.3 L Total Bilirubin 1.60 H AST 17 ALT 15 Alkaline Phosphatase 66 Total Protein 5.8 L Albumin 3.2 Globulin 2.6 Albumin/Globulin Ratio 1.2 Blood Type Antibody Screen Crossmatch Assessment/Plan Active and Suspected Problems (Last Reviewed 06/16/18 @ 10:32 by Cricket Javier MD) GI bleed (Acute) Syncope and collapse (Acute) Acute blood loss anemia (Acute) RECOMMENDATIONS: 1. Stop normal saline infusion, given rising sodium and chloride levels. Transition to D5 half-normal saline. 2. Patient to remain n.p.o. for now. 3. Continue twice daily PPI therapy. 4. Await upper endoscopy by surgery. IMPRESSIONS: 1. Acute blood loss anemia secondary to suspected gastrointestinal hemorrhage The patient remains hemodynamically stable. She has already been transfused 2 units of packed red blood cells. There are tentative plans for the patient to be taken for an upper endoscopy this morning. If no source of blood loss is identified, surgery will consider lower endoscopy tomorrow. Avoid NSAIDs and continue twice daily PPI therapy. There is no indication for any additional transfusion of blood products at the current time. 2. Hypertension/depression/neuropathy Complicates care, management, recovery and prognosis. Continue home medications as indicated. This note was generated with [employer] software. It may contain incorrect words, spelling, and punctuation that were not noted in checking the note before signing. Code Visit Inpatient E&M: 88924 Init Hosp L3
[2018-06-28] MEDS: Dext 5%-0.45% NS 1,000 ML 125 ML IV ×2 (08:04→15:21)
[2018-06-28] MEDS: Potassium Chloride 10mEq/100mL 10 MEQ/100 ML IV.SOLN. 100 MEQ IV BOLUS ×4 (08:05→11:38)
--- NOTE | 2018-06-28 08:35 | PCM.CONS.GEN ---
Problem List (1) GI bleed Status: Acute Qualifiers: GI bleed type/associated pathology: unspecified gastrointestinal hemorrhage type Qualified Code(s): K92.2 - Gastrointestinal hemorrhage, unspecified Reason for Consult Date of Consultation: 06/28/18 Reason for Consultation: GI bleeding History of Present Illness: The patient is a 78 year old F who presented to the emergency room with black tarry stools. She says that she has had GI bleeds in the past with black tarry stools and nothing was done. She has no abdominal pain. She reports yesterday she had a black tarry bowel movement and had a CBC done in the morning which was normal and then she was anemic in the emergency room after this. She reports she is not on any ulcerogenic medications. She is not on steroids. She does not take PPI at home. 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) HTN (hypertension) (Chronic) History of hysterectomy (Chronic) Hypothyroidism (Chronic) Medical History: Medical History (Last Reviewed 06/16/18 @ 10:32 by Cricket Javier MD) Fall (Acute) W19.XXXA Inferior pubic ramus fracture (Acute) S32.599A HTN (hypertension) (Chronic) I10 Hypothyroidism (Chronic) E03.9 Arthritis M19.90 Diverticulosis K57.90 Ductal carcinoma in situ (DCIS) of right breast D05.11 Hypercholesterolemia E78.00 Vitamin D deficiency E55.9 Allergies atorvastatin [From Lipitor] Allergy (Mild, Verified 06/27/18 19:07) muscle aches lisinopril Allergy (Mild, Verified 06/27/18 19:07) cough rosuvastatin [From Crestor] Allergy (Mild, Verified 06/27/18 19:07) muscle aches alendronate sodium [From Fosamax] Allergy (Unknown, Verified 06/27/18 19:07) unknown Sulfa (Sulfonamide Antibiotics) Allergy (Verified 06/27/18 19:07) Rash acetaminophen [From Tylenol] Adverse Reaction (Verified 06/27/18 19:07) restless legs RESTLESS LEGS codeine Adverse Reaction (Verified 06/27/18 19:07) Nausea Fsikspn-Dvt-Yjg Reductase Inhibitor Adverse Reaction (Verified 06/27/18 19:07) Other MUSCLE CRAMPS Home Medications: Ambulatory Orders Medication Instructions Recorded Losartan Potassium [Cozaar] 50 mg PO QHS 10/08/14 Cholecalciferol (VIT D3) [Vitamin 1,000 unit PO DAILY 06/27/18 D] Escitalopram Oxalate [Lexapro] 20 mg PO DAILY 06/27/18 Gabapentin [Neurontin] 300 mg PO QHS 06/27/18 Ibuprofen 400 mg PO PRN PRN 06/27/18 Meloxicam 7.5 mg PO PRN PRN 06/27/18 Surgical History: Surgical History (Last Reviewed 06/16/18 @ 10:32 by Cricket Javier MD) History of hysterectomy (Chronic) Z90.710 History of left mastoidectomy Z90.89 History of lumpectomy of right breast Z98.890 History of right hip replacement Z96.641 History of thyroid surgery Z98.890 Surgical History: - - R breast ductal carcinoma lumpectomy, recent to current presentation R breast lump Bx, right total hip replacement, thyroid nodule resection, hysterectomy. 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 Tobacco Use: Non-smoker Alcohol: Occasional - Patient has one [place] nightly. Drugs: None - *Family History Sibling Family History: Family History (Last Reviewed 06/16/18 @ 10:32 by Cricket Javier MD) Mother Heart disease CVA (cerebral vascular accident) Father Heart disease History Items: Asthma - Brother Maternal Family History: Family History (Last Reviewed 06/16/18 @ 10:32 by Cricket Javier MD) Mother Heart disease CVA (cerebral vascular accident) Father Heart disease History Items: Heart Disease, Stroke Paternal Family History: Family History (Last Reviewed 06/16/18 @ 10:32 by Cricket Javier MD) Mother Heart disease CVA (cerebral vascular accident) Father Heart disease History Items: Heart Disease Review of Systems Constitutional: Denies: Anorexia, Chills HEENT: Denies: Difficulty Hearing Respiratory: Denies: Cough Gastrointestinal: Reports: Melena. Denies: Abdominal Pain, Nausea, Vomiting Genitourinary: Denies: Dysuria Psychiatric: Denies: Anxiety Patient Problems: Active and Suspected Problems (Last Reviewed 06/16/18 @ 10:32 by Cricket Javier MD) GI bleed (Acute) Syncope and collapse (Acute) Acute blood loss anemia (Acute) - Physical Exam General: Alert, Oriented x3, Cooperative Neck: No JVD Lungs: Normal air movement Cardiovascular: Regular rate, Regular Rhythm Abdomen: Soft, Non Tender, Non-Distended Vital Signs Temp Pulse Resp BP Pulse Ox 98.1 F 67 16 175/70 H 95 06/28/18 04:00 06/28/18 07:00 06/28/18 07:00 06/28/18 07:00 06/28/18 08:21 Oxygen Delivery Method Room Air Weight: 135 lb 5.821 oz Body Mass Index (BMI) 23.5 Intake and Output for Last 24 Hours 06/26/18 06/27/18 06/28/18 23:59 23:59 23:59 Intake Total 0 / 0 1581 / 1581 Output Total 550 / 550 Balance 0 / 0 1031 / 1031 Laboratory Tests Past 24 Hrs 06/27/18 06/27/18 06/27/18 19:15 19:15 19:15 WBC 7.9 RBC 3.03 L Hgb 8.8 L Hct 27.8 L MCV 91.7 MCH 29.0 MCHC 31.7 L RDW 14.1 RDW Differential 46.7 H Plt Count 232 MPV 10.4 Immature Gran % (Auto) Neut % (Auto) Lymph % (Auto) [place] % (Auto) Eos % (Auto) Baso % (Auto) Absolute Neuts (auto) Absolute Lymphs (auto) Total Counted PT 14.8 INR 1.2 Sodium 142 Potassium 3.1 L Chloride 109 H Carbon Dioxide 23.0 Anion Gap 10 BUN 21 H Creatinine 0.78 Estim Creat Clear Calc 38.35 Est GFR (MDRD) Af Amer 92 Est GFR (MDRD) Non-Af 76 BUN/Creatinine Ratio 26.9 H Glucose 120 H Calcium 7.8 L Total Bilirubin AST ALT Alkaline Phosphatase Total Protein Albumin Globulin Albumin/Globulin Ratio Blood Type Antibody Screen Crossmatch 06/27/18 06/27/18 06/28/18 19:15 19:15 05:05 WBC 8.6 RBC 3.58 L Hgb 10.4 L Hct 32.4 L MCV 90.5 MCH 29.1 MCHC 32.1 RDW 14.5 RDW Differential 46.3 H Plt Count 177 MPV 10.4 Immature Gran % (Auto) 0.100 Neut % (Auto) 63.1 Lymph % (Auto) 21.8 [place] % (Auto) 11.9 H Eos % (Auto) 2.3 Baso % (Auto) 0.8 Absolute Neuts (auto) 5.5 Absolute Lymphs (auto) 1.88 Total Counted Not Reportable PT INR Sodium Potassium Chloride Carbon Dioxide Anion Gap BUN Creatinine Estim Creat Clear Calc Est GFR (MDRD) Af Amer Est GFR (MDRD) Non-Af BUN/Creatinine Ratio Glucose Calcium Total Bilirubin AST ALT Alkaline Phosphatase Total Protein Albumin Globulin Albumin/Globulin Ratio Blood Type O POSITIVE Antibody Screen NEGATIVE Crossmatch See Detail 06/28/18 05:05 WBC RBC Hgb Hct MCV MCH MCHC RDW RDW Differential Plt Count MPV Immature Gran % (Auto) Neut % (Auto) Lymph % (Auto) [place] % (Auto) Eos % (Auto) Baso % (Auto) Absolute Neuts (auto) Absolute Lymphs (auto) Total Counted PT INR Sodium 147 H Potassium 3.5 Chloride 114 H Carbon Dioxide 25.0 Anion Gap 8 BUN 16 Creatinine 0.70 Estim Creat Clear Calc 38.35 Est GFR (MDRD) Af Amer 104 Est GFR (MDRD) Non-Af 86 BUN/Creatinine Ratio 22.8 H Glucose 113 H Calcium 8.3 L Total Bilirubin 1.60 H AST 17 ALT 15 Alkaline Phosphatase 66 Total Protein 5.8 L Albumin 3.2 Globulin 2.6 Albumin/Globulin Ratio 1.2 Blood Type Antibody Screen Crossmatch Assessment/Plan All Active Problems (Last Reviewed 06/16/18 @ 10:32 by Cricket Javier MD) Microcalcification of right breast on mammogram (Acute) GI bleed (Acute) Syncope and collapse (Acute) Acute blood loss anemia (Acute) Fall (Acute) Inferior pubic ramus fracture (Acute) 78-year-old female with possible upper GI bleed 1. Patient is n.p.o. on Protonix. I will take the patient for EGD today. If no bleeding is located I will bowel prep the patient is afternoon and take her for colonoscopy tomorrow. 2. I explained endoscopy in detail to the patient. I explained the risks including but not limited to stroke or heart attack with anesthesia, perforation of the GI tract, bleeding, infection. I explained that any of these could necessitate further emergency surgery. The patient understands and all questions were answered sufficiently. The patient wishes to proceed with procedure. Obdulio Correa MD Pager: [facility] [address] [place] [address] [address] [place] [address] Office:
--- NOTE | 2018-06-28 08:38 | CON.PCM_ITS ---
Problem List (1) GI bleed Status: Acute Qualifiers: GI bleed type/associated pathology: unspecified gastrointestinal hemorrhage type Qualified Code(s): K92.2 - Gastrointestinal hemorrhage, unspecified Reason for Consult Date of Consultation: 06/28/18 Reason for Consultation: GI bleeding History of Present Illness: The patient is a 78 year old F who presented to the emergency room with black tarry stools. She says that she has had GI bleeds in the past with black tarry stools and nothing was done. She has no abdominal pain. She reports yesterday she had a black tarry bowel movement and had a CBC done in the morning which was normal and then she was anemic in the emergency room after this. She reports she is not on any ulcerogenic medications. She is not on steroids. She does not take PPI at home. 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) HTN (hypertension) (Chronic) History of hysterectomy (Chronic) Hypothyroidism (Chronic) Medical History: Medical History (Last Reviewed 06/16/18 @ 10:32 by Cricket Javier MD) Fall (Acute) W19.XXXA Inferior pubic ramus fracture (Acute) S32.599A HTN (hypertension) (Chronic) I10 Hypothyroidism (Chronic) E03.9 Arthritis M19.90 Diverticulosis K57.90 Ductal carcinoma in situ (DCIS) of right breast D05.11 Hypercholesterolemia E78.00 Vitamin D deficiency E55.9 Allergies atorvastatin [From Lipitor] Allergy (Mild, Verified 06/27/18 19:07) muscle aches lisinopril Allergy (Mild, Verified 06/27/18 19:07) cough rosuvastatin [From Crestor] Allergy (Mild, Verified 06/27/18 19:07) muscle aches alendronate sodium [From Fosamax] Allergy (Unknown, Verified 06/27/18 19:07) unknown Sulfa (Sulfonamide Antibiotics) Allergy (Verified 06/27/18 19:07) Rash acetaminophen [From Tylenol] Adverse Reaction (Verified 06/27/18 19:07) restless legs RESTLESS LEGS codeine Adverse Reaction (Verified 06/27/18 19:07) Nausea Dirkpep-Lki-Npz Reductase Inhibitor Adverse Reaction (Verified 06/27/18 19:07) Other MUSCLE CRAMPS Home Medications: Ambulatory Orders Medication Instructions Recorded Losartan Potassium [Cozaar] 50 mg PO QHS 10/08/14 Cholecalciferol (VIT D3) [Vitamin 1,000 unit PO DAILY 06/27/18 D] Escitalopram Oxalate [Lexapro] 20 mg PO DAILY 06/27/18 Gabapentin [Neurontin] 300 mg PO QHS 06/27/18 Ibuprofen 400 mg PO PRN PRN 06/27/18 Meloxicam 7.5 mg PO PRN PRN 06/27/18 Surgical History: Surgical History (Last Reviewed 06/16/18 @ 10:32 by Cricket Javier MD) History of hysterectomy (Chronic) Z90.710 History of left mastoidectomy Z90.89 History of lumpectomy of right breast Z98.890 History of right hip replacement Z96.641 History of thyroid surgery Z98.890 Surgical History: - - R breast ductal carcinoma lumpectomy, recent to current presentation R breast lump Bx, right total hip replacement, thyroid nodule resection, hysterectomy. 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 Tobacco Use: Non-smoker Alcohol: Occasional - Patient has one [place] nightly. Drugs: None - *Family History Sibling Family History: Family History (Last Reviewed 06/16/18 @ 10:32 by Cricket Javier MD) Mother Heart disease CVA (cerebral vascular accident) Father Heart disease History Items: Asthma - Brother Maternal Family History: Family History (Last Reviewed 06/16/18 @ 10:32 by Cricket Javier MD) Mother Heart disease CVA (cerebral vascular accident) Father Heart disease History Items: Heart Disease, Stroke Paternal Family History: Family History (Last Reviewed 06/16/18 @ 10:32 by Cricket Javier MD) Mother Heart disease CVA (cerebral vascular accident) Father Heart disease History Items: Heart Disease Review of Systems Constitutional: Denies: Anorexia, Chills HEENT: Denies: Difficulty Hearing Respiratory: Denies: Cough Gastrointestinal: Reports: Melena. Denies: Abdominal Pain, Nausea, Vomiting Genitourinary: Denies: Dysuria Psychiatric: Denies: Anxiety Patient Problems: Active and Suspected Problems (Last Reviewed 06/16/18 @ 10:32 by Cricket Javier MD) GI bleed (Acute) Syncope and collapse (Acute) Acute blood loss anemia (Acute) - Physical Exam General: Alert, Oriented x3, Cooperative Neck: No JVD Lungs: Normal air movement Cardiovascular: Regular rate, Regular Rhythm Abdomen: Soft, Non Tender, Non-Distended Vital Signs Temp Pulse Resp BP Pulse Ox 98.1 F 67 16 175/70 H 95 06/28/18 04:00 06/28/18 07:00 06/28/18 07:00 06/28/18 07:00 06/28/18 08:21 Oxygen Delivery Method Room Air Weight: 135 lb 5.821 oz Body Mass Index (BMI) 23.5 Intake and Output for Last 24 Hours 06/26/18 06/27/18 06/28/18 23:59 23:59 23:59 Intake Total 0 / 0 1581 / 1581 Output Total 550 / 550 Balance 0 / 0 1031 / 1031 Laboratory Tests Past 24 Hrs 06/27/18 06/27/18 06/27/18 19:15 19:15 19:15 WBC 7.9 RBC 3.03 L Hgb 8.8 L Hct 27.8 L MCV 91.7 MCH 29.0 MCHC 31.7 L RDW 14.1 RDW Differential 46.7 H Plt Count 232 MPV 10.4 Immature Gran % (Auto) Neut % (Auto) Lymph % (Auto) [place] % (Auto) Eos % (Auto) Baso % (Auto) Absolute Neuts (auto) Absolute Lymphs (auto) Total Counted PT 14.8 INR 1.2 Sodium 142 Potassium 3.1 L Chloride 109 H Carbon Dioxide 23.0 Anion Gap 10 BUN 21 H Creatinine 0.78 Estim Creat Clear Calc 38.35 Est GFR (MDRD) Af Amer 92 Est GFR (MDRD) Non-Af 76 BUN/Creatinine Ratio 26.9 H Glucose 120 H Calcium 7.8 L Total Bilirubin AST ALT Alkaline Phosphatase Total Protein Albumin Globulin Albumin/Globulin Ratio Blood Type Antibody Screen Crossmatch 06/27/18 06/27/18 06/28/18 19:15 19:15 05:05 WBC 8.6 RBC 3.58 L Hgb 10.4 L Hct 32.4 L MCV 90.5 MCH 29.1 MCHC 32.1 RDW 14.5 RDW Differential 46.3 H Plt Count 177 MPV 10.4 Immature Gran % (Auto) 0.100 Neut % (Auto) 63.1 Lymph % (Auto) 21.8 [place] % (Auto) 11.9 H Eos % (Auto) 2.3 Baso % (Auto) 0.8 Absolute Neuts (auto) 5.5 Absolute Lymphs (auto) 1.88 Total Counted Not Reportable PT INR Sodium Potassium Chloride Carbon Dioxide Anion Gap BUN Creatinine Estim Creat Clear Calc Est GFR (MDRD) Af Amer Est GFR (MDRD) Non-Af BUN/Creatinine Ratio Glucose Calcium Total Bilirubin AST ALT Alkaline Phosphatase Total Protein Albumin Globulin Albumin/Globulin Ratio Blood Type O POSITIVE Antibody Screen NEGATIVE Crossmatch See Detail 06/28/18 05:05 WBC RBC Hgb Hct MCV MCH MCHC RDW RDW Differential Plt Count MPV Immature Gran % (Auto) Neut % (Auto) Lymph % (Auto) [place] % (Auto) Eos % (Auto) Baso % (Auto) Absolute Neuts (auto) Absolute Lymphs (auto) Total Counted PT INR Sodium 147 H Potassium 3.5 Chloride 114 H Carbon Dioxide 25.0 Anion Gap 8 BUN 16 Creatinine 0.70 Estim Creat Clear Calc 38.35 Est GFR (MDRD) Af Amer 104 Est GFR (MDRD) Non-Af 86 BUN/Creatinine Ratio 22.8 H Glucose 113 H Calcium 8.3 L Total Bilirubin 1.60 H AST 17 ALT 15 Alkaline Phosphatase 66 Total Protein 5.8 L Albumin 3.2 Globulin 2.6 Albumin/Globulin Ratio 1.2 Blood Type Antibody Screen Crossmatch Assessment/Plan All Active Problems (Last Reviewed 06/16/18 @ 10:32 by Cricket Javier MD) Microcalcification of right breast on mammogram (Acute) GI bleed (Acute) Syncope and collapse (Acute) Acute blood loss anemia (Acute) Fall (Acute) Inferior pubic ramus fracture (Acute) 78-year-old female with possible upper GI bleed 1. Patient is n.p.o. on Protonix. I will take the patient for EGD today. If no bleeding is located I will bowel prep the patient is afternoon and take her for colonoscopy tomorrow. 2. I explained endoscopy in detail to the patient. I explained the risks including but not limited to stroke or heart attack with anesthesia, perforation of the GI tract, bleeding, infection. I explained that any of these could necessitate further emergency surgery. The patient understands and all questi ons were answered sufficiently. The patient wishes to proceed with procedure. Obdulio Correa MD Pager: [facility] [address] [place] [address] [address] [place] [address] Office:
--- NOTE | 2018-06-28 09:42 | NURSING ---
medicated with hydralazine for elevated BP see mar
--- NOTE | 2018-06-28 09:43 | PCM.PN.HOSP ---
Patient Problems: Active and Suspected Problems (Last Reviewed 06/16/18 @ 10:32 by Cricket Javier MD) GI bleed (Acute) Syncope and collapse (Acute) Acute blood loss anemia (Acute) Subjective: Patient seen and examined. She was admitted with a complaint of syncope and bright red stools. She was noted to have a 3 g drop in hemoglobin from 11.7 to about 8.8. She is currently on pantoprazole infusion. She is due for an EGD today. Patient has no complaints this morning and feels well. Bright red blood rectal bleeding has not recurred. She denies any fever or chills, nausea vomiting, abdominal pain, diarrhea vomiting. Of note, bleeding per rectum was painless. She does admit to having a history of diverticular disease. Review of systems otherwise negative. Labs and vitals reviewed. Vitals/I&O's: Vital Signs Temp Pulse Resp BP Pulse Ox 98.4 F 72 18 193/66 H 100 06/28/18 08:00 06/28/18 09:00 06/28/18 09:00 06/28/18 09:00 06/28/18 09:00 Oxygen Delivery Method Room Air Weight: 135 lb 5.821 oz Body Mass Index (BMI) 23.5 Intake and Output for Last 24 Hours 06/26/18 06/27/18 06/28/18 23:59 23:59 23:59 Intake Total 0 / 0 1581 / 1581 Output Total 550 / 550 Balance 0 / 0 1031 / 1031 General: Alert, Oriented x3, Cooperative, No apparent distress HEENT: Atraumatic, PERRLA, EOMI, Normocephalic Oral: Moist Mucosa Neck: Supple, No JVD, Negative Carotid Bruits Lungs: Clear to auscultation, Normal air movement, No rhonchi, No wheeze, No rales Cardiovascular: Regular rate, Regular Rhythm, Normal S1, Normal S2, No murmurs Abdomen: Bowel Sounds Present, Soft, Non Tender, Non-Distended, No Hepato-splenomegaly Extremities: No clubbing, No cyanosis, No edema, Capillary Refill Less than 3 Seconds Skin: No rashes, No breakdown Musculoskeletal: No Tenderness to Palpation of Joints or Extremities Lymphatic: No Cervical, Supraclavicular, or Inguinal Adenopathy Neurological: Cranial nerves II-XII grossly intact, Neuro grossly intact, Motor Exam 5/5 strength throughout Psych/Mental Status: Normal Affect, Appropriate, Alert and oriented to time, place, person, mood and affect Laboratory Results 06/27/18 19:15: WBC 7.9, RBC 3.03 L, Hgb 8.8 L, Hct 27.8 L, MCV 91.7, MCH 29.0, MCHC 31.7 L, RDW 14.1, RDW Differential 46.7 H, Plt Count 232, MPV 10.4 06/27/18 19:15: PT 14.8, INR 1.2 06/27/18 19:15: Sodium 142, Potassium 3.1 L, Chloride 109 H, Carbon Dioxide 23.0, Anion Gap 10, BUN 21 H, Creatinine 0.78, Estim Creat Clear Calc 38.35, Est GFR (MDRD) Af Amer 92, Est GFR (MDRD) Non-Af 76, BUN/Creatinine Ratio 26.9 H, Glucose 120 H, Calcium 7.8 L 06/27/18 19:15: Blood Type O POSITIVE, Antibody Screen NEGATIVE 06/27/18 19:15: Crossmatch See Detail 06/28/18 05:05: WBC 8.6, RBC 3.58 L, Hgb 10.4 L, Hct 32.4 L, MCV 90.5, MCH 29.1, MCHC 32.1, RDW 14.5, RDW Differential 46.3 H, Plt Count 177, MPV 10.4, Immature Gran % (Auto) 0.100, Neut % (Auto) 63.1, Lymph % (Auto) 21.8, [place] % (Auto) 11.9 H, Eos % (Auto) 2.3, Baso % (Auto) 0.8, Absolute Neuts (auto) 5.5, Absolute Lymphs (auto) 1.88, Total Counted Not Reportable 06/28/18 05:05: Sodium 147 H, Potassium 3.5, Chloride 114 H, Carbon Dioxide 25.0, Anion Gap 8, BUN 16, Creatinine 0.70, Estim Creat Clear Calc 38.35, Est GFR (MDRD) Af Amer 104, Est GFR (MDRD) Non-Af 86, BUN/Creatinine Ratio 22.8 H, Glucose 113 H, Calcium 8.3 L, Total Bilirubin 1.60 H, AST 17, ALT 15, Alkaline Phosphatase 66, Total Protein 5.8 L, Albumin 3.2, Globulin 2.6, Albumin/Globulin Ratio 1.2 Current Medications Acetaminophen (Tylenol) 650 mg PO Q6H PRN PRN PRN Reason: Non-cardiac pain (mod-severe) Cholecalciferol (Vitamin D) 1,000 unit PO DAILY [facility] Escitalopram Oxalate (Lexapro) 20 mg PO DAILY [facility] Gabapentin (Neurontin) 300 mg PO QHS [facility] Last Admin: 06/28/18 00:35 Dose: 300 mg Hydralazine HCl (Apresoline Iv) 10 mg IV Q4H PRN PRN PRN Reason: SBP > 160 Last Admin: 06/28/18 08:49 Dose: 10 mg Pantoprazole Sodium 40 mg/ (Sodium Chloride) 110 mls @ 330 mls/hr IV Q12 [facility] Sodium Chloride () 250 mls @ 15 mls/hr IV .[id number] PRN PRN Reason: SALINE FLUSH Sodium Chloride () 250 mls @ 15 mls/hr IV .[id number] PRN PRN Reason: SALINE FLUSH Potassium Chloride () 10 meq in 100 mls @ 100 mls/hr IV BOLUS Q1H [facility] Stop: 06/28/18 11:29 Last Admin: 06/28/18 09:08 Dose: 100 mls/hr Dextrose/Sodium Chloride () 1,000 mls @ 125 mls/hr IV .Q8H [facility] Last Admin: 06/28/18 08:04 Dose: 125 mls/hr Losartan Potassium (Cozaar) 50 mg PO QHS [facility] Last Admin: 06/28/18 00:34 Dose: 50 mg Magnesium Hydroxide (Milk Of Magnesia) 30 ml PO DAILY PRN PRN PRN Reason: Constipation Metoprolol Tartrate (Lopressor (Beta Angel)) 5 mg IV Q6H PRN PRN PRN Reason: SBP > 160, hold for HR < 60. Morphine Sulfate () 1 - 2 mg IV Q4H PRN PRN PRN Reason: PAIN Last Admin: 06/28/18 02:48 Dose: 1 mg Ondansetron HCl (Zofran) 4 mg IV Q8H PRN PRN PRN Reason: NAUSEA/VOMITING Sodium Chloride () 5 - 15 ml IV UD PRN PRN Reason: SALINE FLUSH Last Admin: 06/28/18 08:50 Dose: 10 ml Temazepam (Restoril) 15 mg PO DAILY@2200 PRN PRN Reason: INSOMNIA Medical Necessity - Tobacco Use Smoking Status: Former smoker - Patient quit cigarette tobacco usage greater than 20 years prior. Tobacco Use: Non-smoker Assessment/Plan All Active Problems (Last Reviewed 06/16/18 @ 10:32 by Cricket Javier MD) Microcalcification of right breast on mammogram (Acute) GI bleed (Acute) Syncope and collapse (Acute) Acute blood loss anemia (Acute) Fall (Acute) Inferior pubic ramus fracture (Acute) 1. Acute lower GI bleed possibly due to diverticular bleed Bleeding did not recur overnight. Had associated syncopal episode. Hemoglobin this morning is 10.4. Was transfused with 2 units of packed red blood cells. General surgeon on board. For EGD today. on IV pantoprazole 2. Acute blood loss anemia due to GI bleed Hemoglobin on the afternoon of presentation was around 11 but had dropped to 8.8 by the time of admission. s/p transfusion of 2 units of PRBCs Hb is 10.4 this morning. will monitor H&H For EGD and colonoscopy. 3. Syncopal episode due to bleeding: Resolved. Fall precautions. Being hydrated with IV fluids. Will monitor. 4. Hypernatremia Sodium is 147. Likely due to IV fluid administration Will switch fluid to half-normal saline. 5. Hypertension: Blood pressure poorly controlled with systolic being in the 190s. On losartan. Hydralazine as needed. 6. History of right breast cancer status post lumpectomy Stable. Had a recent breast biopsy for a noted lump and pathology is pending. 7. History of thyroid nodule: Stable. 8. Osteoarthritis: Home ibuprofen and meloxicam on hold on account of GI bleed. Tylenol as needed. 9. Restless leg syndrome: On gabapentin. 10. Depression and anxiety: On Lexapro 11. GERD: on PPI DVT prophylaxis: SCDs Code Visit Inpatient E&M: 04968 Subs Hosp L3
--- NOTE | 2018-06-28 09:51 | PN_ITS ---
Patient Problems: Active and Suspected Problems (Last Reviewed 06/16/18 @ 10:32 by Cricket Javier MD) GI bleed (Acute) Syncope and collapse (Acute) Acute blood loss anemia (Acute) Subjective: Patient seen and examined. She was admitted with a complaint of syncope and bright red stools. She was noted to have a 3 g drop in hemoglobin from 11.7 to about 8.8. She is currently on pantoprazole infusion. She is due for an EGD today. Patient has no complaints this morning and feels well. Bright red blood rectal bleeding has not recurred. She denies any fever or chills, nausea vomiting, abdominal pain, diarrhea vomiting. Of note, bleeding per rectum was painless. She does admit to having a history of diverticular disease. Review of systems otherwise negative. Labs and vitals reviewed. Vitals/I&O's: Vital Signs Temp Pulse Resp BP Pulse Ox 98.4 F 72 18 193/66 H 100 06/28/18 08:00 06/28/18 09:00 06/28/18 09:00 06/28/18 09:00 06/28/18 09:00 Oxygen Delivery Method Room Air Weight: 135 lb 5.821 oz Body Mass Index (BMI) 23.5 Intake and Output for Last 24 Hours 06/26/18 06/27/18 06/28/18 23:59 23:59 23:59 Intake Total 0 / 0 1581 / 1581 Output Total 550 / 550 Balance 0 / 0 1031 / 1031 General: Alert, Oriented x3, Cooperative, No apparent distress HEENT: Atraumatic, PERRLA, EOMI, Normocephalic Oral: Moist Mucosa Neck: Supple, No JVD, Negative Carotid Bruits Lungs: Clear to auscultation, Normal air movement, No rhonchi, No wheeze, No rales Cardiovascular: Regular rate, Regular Rhythm, Normal S1, Normal S2, No murmurs Abdomen: Bowel Sounds Present, Soft, Non Tender, Non-Distended, No Hepato- splenomegaly Extremities: No clubbing, No cyanosis, No edema, Capillary Refill Less than 3 Seconds Skin: No rashes, No breakdown Musculoskeletal: No Tenderness to Palpation of Joints or Extremities Lymphatic: No Cervical, Supraclavicular, or Inguinal Adenopathy Neurological: Cranial nerves II-XII grossly intact, Neuro grossly intact, Motor Exam 5/5 strength throughout Psych/Mental Status: Normal Affect, Appropriate, Alert and oriented to time, place, person, mood and affect Laboratory Results 06/27/18 19:15: WBC 7.9, RBC 3.03 L, Hgb 8.8 L, Hct 27.8 L, MCV 91.7, MCH 29.0, MCHC 31.7 L, RDW 14.1, RDW Differential 46.7 H, Plt Count 232, MPV 10.4 06/27/18 19:15: PT 14.8, INR 1.2 06/27/18 19:15: Sodium 142, Potassium 3.1 L, Chloride 109 H, Carbon Dioxide 23.0, Anion Gap 10, BUN 21 H, Creatinine 0.78, Estim Creat Clear Calc 38.35, Est GFR (MDRD) Af Amer 92, Est GFR (MDRD) Non-Af 76, BUN/Creatinine Ratio 26.9 H, Glucose 120 H, Calcium 7.8 L 06/27/18 19:15: Blood Type O POSITIVE, Antibody Screen NEGATIVE 06/27/18 19:15: Crossmatch See Detail 06/28/18 05:05: WBC 8.6, RBC 3.58 L, Hgb 10.4 L, Hct 32.4 L, MCV 90.5, MCH 29.1, MCHC 32.1, RDW 14.5, RDW Differential 46.3 H, Plt Count 177, MPV 10.4, Immature Gran % (Auto) 0.100, Neut % (Auto) 63.1, Lymph % (Auto) 21.8, Mayes % (Auto) 11.9 H, Eos % (Auto) 2.3, Baso % (Auto) 0.8, Absolute Neuts (auto) 5.5, Absolute Lymphs (auto) 1.88, Total Counted Not Reportable 06/28/18 05:05: Sodium 147 H, Potassium 3.5, Chloride 114 H, Carbon Dioxide 25.0, Anion Gap 8, BUN 16, Creatinine 0.70, Estim Creat Clear Calc 38.35, Est GF R (MDRD) Af Amer 104, Est GFR (MDRD) Non-Af 86, BUN/Creatinine Ratio 22.8 H, Glucose 113 H, Calcium 8.3 L, Total Bilirubin 1.60 H, AST 17, ALT 15, Alkaline Phosphatase 66, Total Protein 5.8 L, Albumin 3.2, Globulin 2.6, Albumin/Globulin Ratio 1.2 Current Medications Acetaminophen (Tylenol) 650 mg PO Q6H PRN PRN PRN Reason: Non-cardiac pain (mod-severe) Cholecalciferol (Vitamin D) 1,000 unit PO DAILY [facility] Escitalopram Oxalate (Lexapro) 20 mg PO DAILY [facility] Gabapentin (Neurontin) 300 mg PO QHS [facility] Last Admin: 06/28/18 00:35 Dose: 300 mg Hydralazine HCl (Apresoline Iv) 10 mg IV Q4H PRN PRN PRN Reason: SBP > 160 Last Admin: 06/28/18 08:49 Dose: 10 mg Pantoprazole Sodium 40 mg/ (Sodium Chloride) 110 mls @ 330 mls/hr IV Q12 [facility] Sodium Chloride () 250 mls @ 15 mls/hr IV .[id number] PRN PRN Reason: SALINE FLUSH Sodium Chloride () 250 mls @ 15 mls/hr IV .[id number] PRN PRN Reason: SALINE FLUSH Potassium Chloride () 10 meq in 100 mls @ 100 mls/hr IV BOLUS Q1H [facility] Stop: 06/28/18 11:29 Last Admin: 06/28/18 09:08 Dose: 100 mls/hr Dextrose/Sodium Chloride () 1,000 mls @ 125 mls/hr IV .Q8H [facility] Last Admin: 06/28/18 08:04 Dose: 125 mls/hr Losartan Potassium (Cozaar) 50 mg PO QHS [facility] Last Admin: 06/28/18 00:34 Dose: 50 mg Magnesium Hydroxide (Milk Of Magnesia) 30 ml PO DAILY PRN PRN PRN Reason: Constipation Metoprolol Tartrate (Lopressor (Beta Angel)) 5 mg IV Q6H PRN PRN PRN Reason: SBP > 160, hold for HR < 60. Morphine Sulfate () 1 - 2 mg IV Q4H PRN PRN PRN Reason: PAIN Last Admin: 06/28/18 02:48 Dose: 1 mg Ondansetron HCl (Zofran) 4 mg IV Q8H PRN PRN PRN Reason: NAUSEA/VOMITING Sodium Chloride () 5 - 15 ml IV UD PRN PRN Reason: SALINE FLUSH Last Admin: 06/28/18 08:50 Dose: 10 ml Temazepam (Restoril) 15 mg PO DAILY@2200 PRN PRN Reason: INSOMNIA Medical Necessity - Tobacco Use Smoking Status: Former smoker - Patient quit cigarette tobacco usage greater than 20 years prior. Tobacco Use: Non-smoker Assessment/Plan All Active Problems (Last Reviewed 06/16/18 @ 10:32 by Cricket Javier MD) Microcalcification of right breast on mammogram (Acute) GI bleed (Acute) Syncope and collapse (Acute) Acute blood loss anemia (Acute) Fall (Acute) Inferior pubic ramus fracture (Acute) 1. Acute lower GI bleed possibly due to diverticular bleed * Bleeding did not recur overnight. * Had associated syncopal episode. * Hemoglobin this morning is 10.4. Was transfused with 2 units of packed red blood cells. * General surgeon on board. For EGD today. * on IV pantoprazole * 2. Acute blood loss anemia due to GI bleed * Hemoglobin on the afternoon of presentation was around 11 but had dropped to 8.8 by the time of admission. * s/p transfusion of 2 units of PRBCs * Hb is 10.4 this morning. * will monitor H&H * For EGD and colonoscopy. * 3. Syncopal episode due to bleeding: Resolved. Fall precautions. Being hydrated with IV fluids. Will monitor. 4. Hypernatremia * Sodium is 147. Likely due to IV fluid administration * Will switch fluid to half-normal saline. * 5. Hypertension: Blood pressure poorly controlled with systolic being in the 190s. On losartan. Hydralazine as needed. 6. History of right breast cancer status post lumpectomy * Stable. * Had a recent breast biopsy for a noted lump and pathology is pending. * 7. History of thyroid nodule: Stable. 8. Osteoarthritis: Home ibuprofen and meloxicam on hold on account of GI bleed. Tylenol as needed. 9. Restless leg syndrome: On gabapentin. 10. Depression and anxiety: On Lexapro 11. GERD: on PPI DVT prophylaxis: SCDs Code Visit Inpatient E&M: 31677 Subs Hosp L3
--- NOTE | 2018-06-28 10:07 | OP.ENDO_ITS ---
06/28/2018 Vikram Segura [address] [place] [address] Re : Upper GI endoscopy procedure for Radha James Dear Dr. Segura This procedure was performed on Thursday, June 28, 2018. My impressions and recommendations are as follows: Impressions : - Normal esophagus. - Normal stomach. - Normal examined duodenum. - No specimens collected. Recommendations : - Return patient to ICU for ongoing care. - Perform a colonoscopy tomorrow. - Clear liquid diet. - Continue present medications. My findings are described in the full procedure note, which is enclosed. If I can be of further assistance, please feel free to contact me at Doctor phone number(s): , Work: . Sincerely, Obdulio Correa MD 06/28/2018 10:07:00 AM This report has been signed electronically.
[2018-06-28] MEDS: Escitalopram Oxalate 20 MG Tablet PO (11:38)
--- NOTE | 2018-06-28 12:13 | CASEMGMT ---
RN CM Note: attempted to speak with pt and she is asleep. Unable to complete assessment @ this time. Gregor CANTRELLN RN ACM
--- NOTE | 2018-06-28 13:05 | CASEMGMT ---
RN CM Assessment Presentation: GIB. Pt had UGI today, plan is for colonoscopy tomorrow. Intro role of CM and purpose of RN CM assessment to patient and her . Pt is alert, oriented and able to participate in assessment. PCP: Dr. Vikram Segura Specialists: Dr. Correa Preferred [facility]acy: [facility] Insurance: [facility] Prescription Benefit: yes LNOK: Bin Ramirez (ted) Living Arrangements: lives independently with in one story home with 5 steps into home, has handrail. Transportation: drives or can drive. DME: none HHC: none DC PLAN: Home on dc. Gregor VALENCIA BSN CM
--- NOTE | 2018-06-28 13:22 | CASEMGMT ---
SW looked in echart, LW/POA are not in chart. SW spoke w/pt in room, explained the LW/POA forms are not in the chart. She will ask her to bring in the forms. CARL Piña, SENIOR CREDIT ANALYST
[2018-06-28] MEDS: Electrolyte Solution/Peg's 4000 ML 2000 ML PO (13:23)
--- NOTE | 2018-06-28 15:47 | NURSING ---
medicated with hydralazine see mar
[2018-06-28] MEDS: cloNIDine HCl 0.1 MG Tablet 0.2 MG PO (18:18)
--- NOTE | 2018-06-28 19:49 | NURSING ---
Report called to Jennifer, ICU
[2018-06-29] VITALS (22 sets, daily range): BP systolic 113–195; BP diastolic 44–82; PULSE 64–102; RESP 14–18; TEMP 36.4–37.1; O2SAT 95–100
[2018-06-29] MEDS: Dext 5%-0.45% NS 1,000 ML 125 ML IV ×2 (00:54→11:45)
--- NOTE | 2018-06-29 02:08 | NURSING ---
Pt had a large bloody BM at this time, she has been refusing the golytely and Dr Correa is aware.
[2018-06-29 04:33] LABS: Anion Gap 8 (5-15); BUN 7 mg/dL (7-18); BUN/Creat Ratio 10.1 RATIO (10-20); Chloride 114 mmol/L (98-107); Creatinine, Serum 0.69 mg/dL (0.55-1.02); EST Glomerular Filtration Rate 87 mL/min (>60); Est Glom Filt Rate - Afr Amer 106 mL/min (>60); Estimated Creatinine Clearance 38.35 ml/min; Glucose 124 mg/dL (74-106); Potassium 3.2 mmol/L (3.5-5.1); Sodium Level 145 mmol/L (136-145)
[2018-06-29 04:39] LABS: Absolute Lymphocyte Count 1.51 X10^3/ul (0.83-4.51); Absolute Neutrophil Count 4.2 X10^3/uL (2.0-7.7); Basophil# 0.06 X10^3/uL; Basophil% 0.8 % (0-1); Eosinophil# 0.31 X10^3/uL; Eosinophils% 4.4 % (0-5); Hemoglobin 9.2 g/dl (12.0-15.0); Lymphocyte # 1.51 X10^3/ul (4.0); Lymphocyte % 21.3 % (19-41); Mean Corp Hgb Conc 31.7 g/gl (32-36); Mean Corpuscular Hgb 28.8 pg (27.0-32.0); Mean Corpuscular Volume 90.9 fL (81-99); Mean Platelet Vol. 10.6 fl (6.2-12.0); Monocyte# 0.98 X10^3/uL; Monocyte% 13.8 % (0-10); Neutrophil % 59.4 % (47-70); Platelet Count 166 K/mm3 (150-450); RBC Distribution Width CV 15.1 % (11.6-14.6); RBC Distribution Width SD 48.7 fl (35.1-43.9); Red Blood Count 3.19 M/mm3 (4.2-5.4); White Blood Count 7.1 K/mm3 (4.4-11.0)
[2018-06-29 04:55] LABS: POSITIVE COUNT NO; POSITIVE DIFFERENTIAL NO; POSITIVE MORPHOLOGY NO
--- NOTE | 2018-06-29 06:04 | PCM.PN.INT ---
Subjective: The patient was seen and examined at the bedside this morning. Events from the last 24 hours have been reviewed. The patient is currently afebrile, hemodynamically stable and maintaining appropriate oxygen saturations on room air. I was contacted by the overnight hospitalist last evening, indicating that the patient was going to require transfer back to the medical intensive care unit due to uncontrolled hypertension. The PCU was documenting the patient's blood pressures to be in excess of 200 mmHg systolic. There was concern that she would need to be started on an nicardipine drip. However, upon transfer of the patient back to the ICU, it was revealed that the patient had an inappropriate fitting blood pressure cuff. Once the appropriate cuff size was applied, the patient was noted to have a blood pressure of 133/56 mmHg. She never had to be started on a nicardipine drip. Hemoglobin is stable this morning at 9.2 g/dL. Potassium is a bit low at 3.2. Objective: The patient's most recent lab work, culture data and imaging studies have all been personally reviewed. General: Alert, Cooperative, No apparent distress HEENT: Atraumatic, PERRLA, Normocephalic Oral: No Gingival or Mucosal Lesions/ Ulcerations Neck: Supple, No Nodes, Trachea Midline Lungs: Normal air movement, No rhonchi, No wheeze, No rales Cardiovascular: Regular rate, Regular Rhythm, Normal S1, Normal S2, No murmurs Abdomen: Bowel Sounds Present, Soft, Non Tender Extremities: No clubbing, No cyanosis, No edema Skin: No breakdown Musculoskeletal: No Tenderness to Palpation of Joints or Extremities Lymphatic: No Cervical, Supraclavicular, or Inguinal Adenopathy Neurological: Neuro grossly intact Psych/Mental Status: Normal Affect, Appropriate Vital Signs Temp Pulse Resp BP Pulse Ox 36.8 C 64 18 144/68 H 96 06/29/18 04:04 06/29/18 04:04 06/29/18 04:04 06/29/18 04:04 06/29/18 04:04 Oxygen Delivery Method Room Air Weight: 135 lb 5.821 oz Body Mass Index (BMI) 23.5 Intake and Output for Last 24 Hours 06/27/18 06/28/18 06/29/18 23:59 23:59 23:59 Intake Total 0 / 0 4519 / 4519 864 / 864 Output Total 4500 / 4500 2 / 2 Balance 0 / 0 862 / 862 Labs (Last 48 Hours) 06/27/18 06/27/18 06/27/18 19:15 19:15 19:15 WBC 7.9 RBC 3.03 L Hgb 8.8 L Hct 27.8 L MCV 91.7 MCH 29.0 MCHC 31.7 L RDW 14.1 RDW Differential 46.7 H Plt Count 232 MPV 10.4 Immature Gran % (Auto) Neut % (Auto) Lymph % (Auto) [place] % (Auto) Eos % (Auto) Baso % (Auto) Absolute Neuts (auto) Absolute Lymphs (auto) Total Counted PT 14.8 INR 1.2 Sodium 142 Potassium 3.1 L Chloride 109 H Carbon Dioxide 23.0 Anion Gap 10 BUN 21 H Creatinine 0.78 Estim Creat Clear Calc 38.35 Est GFR (MDRD) Af Amer 92 Est GFR (MDRD) Non-Af 76 BUN/Creatinine Ratio 26.9 H Glucose 120 H Calcium 7.8 L Total Bilirubin AST ALT Alkaline Phosphatase Total Protein Albumin Globulin Albumin/Globulin Ratio Blood Type Antibody Screen Crossmatch 06/27/18 06/27/18 06/28/18 19:15 19:15 05:05 WBC 8.6 RBC 3.58 L Hgb 10.4 L Hct 32.4 L MCV 90.5 MCH 29.1 MCHC 32.1 RDW 14.5 RDW Differential 46.3 H Plt Count 177 MPV 10.4 Immature Gran % (Auto) 0.100 Neut % (Auto) 63.1 Lymph % (Auto) 21.8 [place] % (Auto) 11.9 H Eos % (Auto) 2.3 Baso % (Auto) 0.8 Absolute Neuts (auto) 5.5 Absolute Lymphs (auto) 1.88 Total Counted Not Reportable PT INR Sodium Potassium Chloride Carbon Dioxide Anion Gap BUN Creatinine Estim Creat Clear Calc Est GFR (MDRD) Af Amer Est GFR (MDRD) Non-Af BUN/Creatinine Ratio Glucose Calcium Total Bilirubin AST ALT Alkaline Phosphatase Total Protein Albumin Globulin Albumin/Globulin Ratio Blood Type O POSITIVE Antibody Screen NEGATIVE Crossmatch See Detail 06/28/18 06/29/18 06/29/18 05:05 03:57 03:57 WBC 7.1 RBC 3.19 L Hgb 9.2 L Hct 29.0 L MCV 90.9 MCH 28.8 MCHC 31.7 L RDW 15.1 H RDW Differential 48.7 H Plt Count 166 MPV 10.6 Immature Gran % (Auto) 0.300 Neut % (Auto) 59.4 Lymph % (Auto) 21.3 [place]cy % (Auto) 13.8 H Eos % (Auto) 4.4 Baso % (Auto) 0.8 Absolute Neuts (auto) 4.2 Absolute Lymphs (auto) 1.51 Total Counted Not Reportable PT INR Sodium 147 H 145 Potassium 3.5 3.2 L Chloride 114 H 114 H Carbon Dioxide 25.0 23.0 Anion Gap 8 8 BUN 16 7 Creatinine 0.70 0.69 Estim Creat Clear Calc 38.35 38.35 Est GFR (MDRD) Af Amer 104 106 Est GFR (MDRD) Non-Af 86 87 BUN/Creatinine Ratio 22.8 H 10.1 Glucose 113 H 124 H Calcium 8.3 L 8.0 L Total Bilirubin 1.60 H AST 17 ALT 15 Alkaline Phosphatase 66 Total Protein 5.8 L Albumin 3.2 Globulin 2.6 Albumin/Globulin Ratio 1.2 Blood Type Antibody Screen Crossmatch Medical Necessity - Tobacco Use Smoking Status: Former smoker - Patient quit cigarette tobacco usage greater than 20 years prior. Tobacco Use: Non-smoker Assessment/Plan All Active Problems (Last Reviewed 06/16/18 @ 10:32 by Cricket Javier MD) Microcalcification of right breast on mammogram (Acute) GI bleed (Acute) Syncope and collapse (Acute) Acute blood loss anemia (Acute) Fall (Acute) Inferior pubic ramus fracture (Acute) RECOMMENDATIONS: 1. Await lower endoscopy by surgery. 2. Blood pressure control per hospitalist. IMPRESSIONS: 1. Acute blood loss anemia secondary to suspected gastrointestinal hemorrhage The patient remains hemodynamically stable. Blood counts are stable following transfusion yesterday. Upper endoscopy completed yesterday was largely unremarkable. There are tentative plans for the patient to undergo a lower endoscopy procedure today. She is being continued on her PPI therapy accordingly. 2. Hypertension/depression/neuropathy Complicates care, management, recovery and prognosis. Continue home medications as indicated. This note was generated with [employer] dictation software. It may contain incorrect words, spelling, and punctuation that were not noted in checking the note before signing. DISPOSITION: Given the patient's lack of ICU or pulmonary needs, will sign off. Please call with any additional questions. Code Visit Inpatient E&M: 48328 Subs Hosp L2
--- NOTE | 2018-06-29 10:00 | NURSING ---
report called to laura cabrera
--- NOTE | 2018-06-29 10:52 | OP.ENDO_ITS ---
06/29/2018 Vikram Segura [address] [facility] [address] [place] [address] Re : Colonoscopy procedure for Radha Ramirez Dear Dr. Segura This procedure was performed on June. My impressions and recommendations are as follows: Impressions : - Severe diverticulosis in the recto-sigmoid colon, in the sigmoid colon and in the descending colon. There was evidence of recent bleeding which is likely diverticular. - The examination was otherwise normal on direct and retroflexion views. - No specimens collected. Recommendations : - [facility] to [facility]. - Repeat colonoscopy is not recommended due to current age (66 years or older) for screening purposes. - Continue present medications. My findings are described in the full procedure note, which is enclosed. If I can be of further assistance, please feel free to contact me at Doctor phone number(s): , Work: . Sincerely, Obdulio Correa MD 06/29/2018 10:52:00 AM This report has been signed electronically.
--- NOTE | 2018-06-29 11:26 | PN_ITS ---
Progress Note I performed a colonoscopy in the patient today. The patient's colon was quite clean given the fact that she was bleeding. I was able to make it all the way to her terminal ileum. There is no blood in the terminal ileum or on the right side of the colon. She did have some old blood clots in the descending colon and copious amount of diverticulosis. The patient did not have any blood in the rectum and did not have obvious hemorrhoids. The likely source is diverticular bleeding. At this time there was no active bleeding. The patient may resume a diet and if she bleeds again we will discuss sigmoid colectomy. Obduilo Correa MD Pager: [facility] [address] [place] [address] [address] [place] [address] Office:
[2018-06-29] MEDS: Escitalopram Oxalate 20 MG Tablet PO (11:41)
--- NOTE | 2018-06-29 12:29 | PN_ITS ---
Patient Problems: Active and Suspected Problems (Last Reviewed 06/16/18 @ 10:32 by Cricket Javier MD) GI bleed (Acute) Syncope and collapse (Acute) Acute blood loss anemia (Acute) Subjective: Patient seen and examined. She was noted to have markedly elevated BP, and was transferred to the ICU for closer monitoring. She was however transferred back to the floor after BP stabilised. Elevated blood pressure was thought to be due to a small sized cuff. She did not have any rectal bleeding overnight and is awaiting colonoscopy today. Review of systems otherwise negative. Labs and vitals reviewed. Vitals/I&O's: Vital Signs Temp Pulse Resp BP Pulse Ox 98 F 74 15 168/81 H 97 06/29/18 11:33 06/29/18 11:33 06/29/18 11:33 06/29/18 11:33 06/29/18 11:33 Oxygen Delivery Method Room Air Weight: 132 lb 0.91 oz Body Mass Index (BMI) 23.5 Intake and Output for Last 24 Hours 06/27/18 06/28/18 06/29/18 23:59 23:59 23:59 Intake Total 0 / 0 4519 / 4519 2854 / 2854 Output Total 4500 / 4500 2 / 2 Balance 0 / 0 2852 / 2852 General: Alert, Oriented x3, Cooperative, No apparent distress HEENT: Atraumatic, PERRLA, EOMI, Normocephalic Oral: Moist Mucosa Neck: Supple, No JVD, Negative Carotid Bruits Lungs: Clear to auscultation, Normal air movement, No rhonchi, No wheeze, No rales Cardiovascular: Regular rate, Regular Rhythm, Normal S1, Normal S2, No murmurs Abdomen: Bowel Sounds Present, Soft, Non Tender, Non-Distended, No Hepato- splenomegaly Extremities: No clubbing, No cyanosis, No edema, Capillary Refill Less than 3 Seconds Skin: No rashes, No breakdown Musculoskeletal: No Tenderness to Palpation of Joints or Extremities Lymphatic: No Cervical, Supraclavicular, or Inguinal Adenopathy Neurological: Cranial nerves II-XII grossly intact, Neuro grossly intact, Motor Exam 5/5 strength throughout Psych/Mental Status: Normal Affect, Appropriate, Alert and oriented to time, place, person, mood and affect Laboratory Results 06/29/18 03:57: WBC 7.1, RBC 3.19 L, Hgb 9.2 L, Hct 29.0 L, MCV 90.9, MCH 28.8, MCHC 31.7 L, RDW 15.1 H, RDW Differential 48.7 H, Plt Count 166, MPV 10.6, Immature Gran % (Auto) 0.300, Neut % (Auto) 59.4, Lymph % (Auto) 21.3, Lamar % (A uto) 13.8 H, Eos % (Auto) 4.4, Baso % (Auto) 0.8, Absolute Neuts (auto) 4.2, Absolute Lymphs (auto) 1.51, Total Counted Not Reportable 06/29/18 03:57: Sodium 145, Potassium 3.2 L, Chloride 114 H, Carbon Dioxide 23.0, Anion Gap 8, BUN 7, Creatinine 0.69, Estim Creat Clear Calc 38.35, Est GFR (MDRD) Af Amer 106, Est GFR (MDRD) Non-Af 87, BUN/Creatinine Ratio 10.1, Glucose 124 H, Calcium 8.0 L Current Medications Acetaminophen (Tylenol) 650 mg PO Q6H PRN PRN PRN Reason: Non-cardiac pain (mod-severe) Cholecalciferol (Vitamin D) 1,000 unit PO DAILY [facility] Last Admin: 06/29/18 11:41 Dose: 1,000 unit Escitalopram Oxalate (Lexapro) 20 mg PO DAILY [facility] Last Admin: 06/29/18 11:41 Dose: 20 mg Gabapentin (Neurontin) 300 mg PO QHS [facility] Last Admin: 06/28/18 21:39 Dose: 300 mg Hydralazine HCl (Apresoline Iv) 10 mg IV Q4H PRN PRN PRN Reason: SBP > 160 Last Admin: 06/28/18 15:19 Dose: 10 mg Pantoprazole Sodium 40 mg/ (Sodium Chloride) 110 mls @ 330 mls/hr IV Q12 [facility] Last Admin: 06/29/18 11:49 Dose: 330 mls/hr Sodium Chloride () 250 mls @ 15 mls/hr IV .[id number] PRN PRN Reason: SALINE FLUSH Sodium Chloride () 250 mls @ 15 mls/hr IV .[id number] PRN PRN Reason: SALINE FLUSH Dextrose/Sodium Chloride () 1,000 mls @ 125 mls/hr IV .Q8H [facility] Last Admin: 06/29/18 11:45 Dose: 125 mls/hr Sodium Chloride () 250 mls @ 15 mls/hr IV .[id number] PRN PRN Reason: SALINE FLUSH Losartan Potassium (Cozaar) 50 mg PO QHS [facility] Last Admin: 06/28/18 21:39 Dose: 50 mg Magnesium Hydroxide (Milk Of Magnesia) 30 ml PO DAILY PRN PRN PRN Reason: Constipation Metoprolol Tartrate (Lopressor (Beta Angel)) 5 mg IV Q6H PRN PRN PRN Reason: SBP > 160, hold for HR < 60. Morphine Sulfate () 1 - 2 mg IV Q4H PRN PRN PRN Reason: PAIN Last Admin: 06/28/18 02:48 Dose: 1 mg Ondansetron HCl (Zofran) 4 mg IV Q8H PRN PRN PRN Reason: NAUSEA/VOMITING Sodium Chloride () 5 - 15 ml IV UD PRN PRN Reason: SALINE FLUSH Last Admin: 06/28/18 18:18 Dose: 10 ml Sodium Chloride () 5 - 15 ml IV UD PRN PRN Reason: SALINE FLUSH Temazepam (Restoril) 15 mg PO DAILY@2200 PRN PRN Reason: INSOMNIA Medical Necessity - Tobacco Use Smoking Status: Former smoker - Patient quit cigarette tobacco usage greater than 20 years prior. Tobacco Use: Non-smoker Assessment/Plan All Active Problems (Last Reviewed 06/16/18 @ 10:32 by Cricket Javier MD) Microcalcification of right breast on mammogram (Acute) GI bleed (Acute) Syncope and collapse (Acute) Acute blood loss anemia (Acute) Fall (Acute) Inferior pubic ramus fracture (Acute) 1. Acute lower GI bleed possibly due to diverticular bleed * stable. * had colonoscopy today: colon quite clean, and no blood in terminal ileum or right side of colon. Had old blood clots in descending colon and copious amount of diverticulosis. NO blood in rectum or obvious hemorrhoids. * Per surgery, cause of bleeding is diverticular bleeding. * Per surgery, if she bleeds again will discuss sigmoid colectomy with her. * Hb today is 9.2. * will monitor * on IV pantoprazole.; Will switch to PO today * will start on diet as per general surgery * * 2. Acute blood loss anemia due to GI bleed * Hemoglobin on the afternoon of presentation was around 11 but had dropped to 8.8 by the time of admission. * s/p transfusion of 2 units of PRBCs * Hb is 19.2 this morning * * 3. Syncopal episode due to bleeding: Resolved. Fall precautions. 4. Hypernatremia: resolved. * 5. Hypertension: * Blood pressure was noted to be markedly elevated yesterday evening with systolic going up into the 220s and 230s. It was unresponsive to clonidine and hydralazine. She was transferred up to the ICU for blood pressure stabilized after which she realized that the cuff size was slightly too small. * BP now in the b 160s systolic maximum. * Continue BP meds-losartan. Will monitor. 6. History of right breast cancer status post lumpectomy * Stable. * Had a recent breast biopsy for a noted lump and pathology is pending. * 7. History of thyroid nodule: Stable. 8. Osteoarthritis: Home ibuprofen and meloxicam on hold on account of GI bleed. Tylenol as needed. 9. Restless leg syndrome: On gabapentin. 10. Depression and anxiety: On Lexapro 11. GERD: on PPI DVT prophylaxis: SCDs Code Visit Inpatient E&M: 49765 [facility] Hosp L3
[2018-06-29] MEDS: hydrALAZINE 20 MG/ML Vial 10 MG IV (18:44)
[2018-06-29] MEDS: Losartan Potassium 50 MG Tablet PO (19:13)
[2018-06-29] MEDS: Metoprolol Tartrate 5 MG/5 ML Vial IV (20:45)
[2018-06-29] MEDS: Gabapentin 300 MG Capsule PO (20:45)
[2018-06-29] MEDS: LORazepam 0.5 MG Tablet PO (20:45)
[2018-06-29] MEDS: 0.9% NaCl Peripheral Flush Adult/Peds IV (20:47)
[2018-06-30] VITALS (10 sets, daily range): BP systolic 192–202; BP diastolic 64–85; PULSE 62–77; RESP 16–18; TEMP 36.8–37; O2SAT 96–100
[2018-06-30] MEDS: Metoprolol Tartrate 5 MG/5 ML Vial IV (03:56)
[2018-06-30] MEDS: 0.9% NaCl Peripheral Flush Adult/Peds IV ×2 (03:56→06:10)
[2018-06-30] MEDS: hydrALAZINE 20 MG/ML Vial 10 MG IV (06:10)
[2018-06-30 07:30] LABS: Absolute Lymphocyte Count 1.79 X10^3/ul (0.83-4.51); Absolute Neutrophil Count 5.2 X10^3/uL (2.0-7.7); Basophil# 0.04 X10^3/uL; Basophil% 0.5 % (0-1); Eosinophil# 0.35 X10^3/uL; Eosinophils% 4.1 % (0-5); Hematocrit 33.5 % (37-47); Hemoglobin 10.7 g/dl (12.0-15.0); Lymphocyte # 1.79 X10^3/ul (4.0); Lymphocyte % 20.8 % (19-41); Mean Corp Hgb Conc 31.9 g/gl (32-36); Mean Corpuscular Hgb 28.9 pg (27.0-32.0); Mean Corpuscular Volume 90.5 fL (81-99); Mean Platelet Vol. 10.6 fl (6.2-12.0); Monocyte# 1.19 X10^3/uL; Monocyte% 13.8 % (0-10); Neutrophil # 5.24 X10^3/uL (2.7-7.7); Neutrophil % 60.7 % (47-70); Platelet Count 215 K/mm3 (150-450); RBC Distribution Width CV 15.1 % (11.6-14.6); RBC Distribution Width SD 49.4 fl (35.1-43.9); White Blood Count 8.6 K/mm3 (4.4-11.0)
[2018-06-30 07:33] LABS: POSITIVE COUNT NO; POSITIVE DIFFERENTIAL NO; POSITIVE MORPHOLOGY NO
[2018-06-30 07:37] LABS: Anion Gap 8 (5-15); BUN 5 mg/dL (7-18); BUN/Creat Ratio 7.3 RATIO (10-20); Calcium,Total 8.8 mg/dL (8.5-10.1); Chloride 113 mmol/L (98-107); Creatinine, Serum 0.69 mg/dL (0.55-1.02); EST Glomerular Filtration Rate 88 mL/min (>60); Est Glom Filt Rate - Afr Amer 106 mL/min (>60); Estimated Creatinine Clearance 38.35 ml/min; Glucose 96 mg/dL (74-106); Potassium 3.3 mmol/L (3.5-5.1); Sodium Level 145 mmol/L (136-145)
--- NOTE | 2018-06-30 07:48 | PCM.PN.SRG ---
Patient Problems: Active and Suspected Problems (Last Reviewed 06/16/18 @ 10:32 by Cricket Javier MD) GI bleed (Acute) Syncope and collapse (Acute) Acute blood loss anemia (Acute) Subjective: Patient had no bloody bowel movements overnight. - Physical Exam General: Alert, Oriented x3 HEENT: Atraumatic Lungs: Normal air movement Cardiovascular: Regular rate, Regular Rhythm Abdomen: Soft, Non Tender, Non-Distended Vital Signs Temp Pulse Resp BP Pulse Ox 98.6 F 65 18 200/85 H 96 06/30/18 03:50 06/30/18 06:30 06/30/18 03:50 06/30/18 06:10 06/30/18 07:31 Oxygen Delivery Method Room Air Weight: 130 lb 11.746 oz Body Mass Index (BMI) 23.5 Intake and Output for Last 24 Hours 06/28/18 06/29/18 06/30/18 23:59 23:59 23:59 Intake Total 4519 / 4519 5004 / 5004 240 / 240 Output Total 4500 / 4500 2 / 2 Balance 5002 / 5002 240 / 240 Laboratory Tests Past 24 Hrs 06/30/18 06/30/18 06:10 06:10 WBC 8.6 RBC 3.70 L Hgb 10.7 L Hct 33.5 L MCV 90.5 MCH 28.9 MCHC 31.9 L RDW 15.1 H RDW Differential 49.4 H Plt Count 215 MPV 10.6 Immature Gran % (Auto) 0.100 Neut % (Auto) 60.7 Lymph % (Auto) 20.8 [place] % (Auto) 13.8 H Eos % (Auto) 4.1 Baso % (Auto) 0.5 Absolute Neuts (auto) 5.2 Absolute Lymphs (auto) 1.79 Total Counted Not Reportable Sodium 145 Potassium 3.3 L Chloride 113 H Carbon Dioxide 24.0 Anion Gap 8 BUN 5 L Creatinine 0.69 Estim Creat Clear Calc 38.35 Est GFR (MDRD) Af Amer 106 Est GFR (MDRD) Non-Af 88 BUN/Creatinine Ratio 7.3 L Glucose 96 Calcium 8.8 Medical Necessity - Tobacco Use Smoking Status: Former smoker - Patient quit cigarette tobacco usage greater than 20 years prior. Tobacco Use: Non-smoker Assessment/Plan All Active Problems (Last Reviewed 06/16/18 @ 10:32 by Cricket Javier MD) Microcalcification of right breast on mammogram (Acute) GI bleed (Acute) Syncope and collapse (Acute) Acute blood loss anemia (Acute) Fall (Acute) Inferior pubic ramus fracture (Acute) 78-year-old female with GI bleed, likely diverticular 1. Patient has no active bleeding right now. If the patient begins to bleed again she should follow-up with me as an outpatient and I will schedule her for elective sigmoid colectomy. Obdulio Correa MD Pager: [facility] [address] [place] [address], [address] [place] [address] Office:
[2018-06-30] MEDS: Escitalopram Oxalate 20 MG Tablet PO (09:39)
--- NOTE | 2018-06-30 11:00 | DCINST_ITS ---
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) You will use the following diet at home:: Cardiac, High fiber Your food should be the consistency of: Regular Your liquids should be the consistency of: Regular/Thin Discharge Activity: Return to Normal Activity Weight Bearing Status: Weight bearing as tolerated Call your doctor if you observe: Shortness of breath, Dizziness, Fainting spells, - - rectal bleeding Allergies/Adverse Reactions: Allergies atorvastatin [From Lipitor] Allergy (Mild, Verified 06/27/18 19:07) muscle aches lisinopril Allergy (Mild, Verified 06/27/18 19:07) cough rosuvastatin [From Crestor] Allergy (Mild, Verified 06/27/18 19:07) muscle aches alendronate sodium [From Fosamax] Allergy (Unknown, Verified 06/27/18 19:07) unknown Sulfa (Sulfonamide Antibiotics) Allergy (Verified 06/27/18 19:07) Rash acetaminophen [From Tylenol] Adverse Reaction (Verified 06/27/18 19:07) restless legs RESTLESS LEGS codeine Adverse Reaction (Verified 06/27/18 19:07) Nausea Amhpfyh-Tea-Dku Reductase Inhibitor Adverse Reaction (Verified 06/27/18 19:07) Other MUSCLE CRAMPS Medications to take at Discharge Losartan Potassium [Cozaar] 50 mg PO QHS 10/08/14 Cholecalciferol (VIT D3) [Vitamin D3] 1,000 unit PO DAILY 06/27/18 Escitalopram Oxalate [Lexapro] 20 mg PO DAILY 06/27/18 Gabapentin [Neurontin] 300 mg PO QHS 06/27/18 Please follow up with your Primary Care Physician in: one week Test Results: Test results from this visit will be discussed in further detail at your follow- up appointment, if applicable. Please Follow Up With: Obdulio Correa MD When: 1-2 weeks Proposed Discharge Date: 06/30/18
--- NOTE | 2018-06-30 11:01 | DS.PCM_ITS ---
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 She was admitted through the ED on 06/27/2018 with a complaint of bright red blood bleeding per rectum of one days duration. Bleeding was painless but had mild associated discomfort. She did have a history of prior diverticular bleed and also had been on meloxicam and ibuprofen at home. On admission in the ED, hemoglobin was 8.8 with a baseline being around 11-13. INR was 1.2 and BMP was only significant for potassium of 3.1. She was admitted and managed for lower GI bleed likely due to diverticular disease. She was started on IV Protonix 40 mg twice daily and transfused 2 units of packed red blood cells. General surgery was consulted and she had a colonoscopy on 06/29/2018 which showed a clean colon with no blood in the terminal ileum on the right side of the colon. She did have some blood clots in the descending colon and copious amounts of diverticulosis. She did not have any blood in the rectum and no obvious hemorrhoids on the likely cause of bleeding per surgery was diverticular bleeding. Patient remained stable and plan was if she bled again, sigmoid colectomy will be discussed with her. Of note, patient's blood pressure was elevated during admission and went as high as the 220s systolic. Was initially not responsive to medication but blood pressure went down after the blood pressure cuff size was changed. Patient remained stable and was discharged on 06/30/2018. She is to follow-up with her primary care doctor and with general surgery. Patient seen and examined prior to discharge. She had no complaints and felt well. Review of systems otherwise negative. Labs and vitals reviewed. Home medication reviewed and reconciled. o/e: Vital Signs Height 5 ft 3 in Weight: 130 lb 11.746 oz Weight in Pounds 130.7 lbs Pulse Ox 97 Temperature 98.3 F Pulse Rate [Standing] 90 Pulse Rate [Sitting] 89 Pulse Rate [Lying] 70 Pulse Rate 77 Respiratory Rate 16 Blood Pressure [Standing] 143/112 Blood Pressure [Sitting] 183/79 Blood Pressure [Lying] 166/66 Blood Pressure [BP] 200/85 Blood Pressure 192/64 Blood Pressure Position [BP] Semi-Fowlers Blood Pressure Position Sitting [] General: Alert, Oriented x3, Cooperative, No apparent distress HEENT: Atraumatic, PERRLA, EOMI, Normocephalic Oral: Moist Mucosa Neck: Supple, No JVD, Negative Carotid Bruits Lungs: Clear to auscultation, Normal air movement, No rhonchi, No wheeze, No rales Cardiovascular: Regular rate, Regular Rhythm, Normal S1, Normal S2, No murmurs Abdomen: Bowel Sounds Present, Soft, Non Tender, Non-Distended, No Hepato- splenomegaly Extremities: No clubbing, No cyanosis, No edema, Capillary Refill Less than 3 Seconds Skin: No rashes, No breakdown Musculoskeletal: No Tenderness to Palpation of Joints or Extremities Lymphatic: No Cervical, Supraclavicular, or Inguinal Adenopathy Neurological: Cranial nerves II-XII grossly intact, Neuro grossly intact, Motor Exam 5/5 strength throughout Psych/Mental Status: Normal Affect, Appropriate, Alert and oriented to time, place, person, mood and affect Plan as above. - Physical Exam Vital Signs Temp Pulse Resp BP Pulse Ox 98.3 F 73 16 192/64 H 100 06/30/18 08:32 06/30/18 08:32 06/30/18 08:32 06/30/18 08:32 06/30/18 08:32 Oxygen Delivery Method Room Air Weight: 130 lb 11.746 oz Body Mass Index (BMI) 23.5 Intake and Output for Last 24 Hours 06/28/18 06/29/18 06/30/18 23:59 23:59 23:59 Intake Total 4519 / 4519 5004 / 5004 240 / 240 Output Total 4500 / 4500 2 / 2 Balance 5002 / 5002 240 / 240 Laboratory Tests Past 24 Hrs 06/30/18 06/30/18 06:10 06:10 WBC 8.6 RBC 3.70 L Hgb 10.7 L Hct 33.5 L MCV 90.5 MCH 28.9 MCHC 31.9 L RDW 15.1 H RDW Differential 49.4 H Plt Count 215 MPV 10.6 Immature Gran % (Auto) 0.100 Neut % (Auto) 60.7 Lymph % (Auto) 20.8 [place] % (Auto) 13.8 H Eos % (Auto) 4.1 Baso % (Auto) 0.5 Absolute Neuts (auto) 5.2 Absolute Lymphs (auto) 1.79 Total Counted Not Reportable Sodium 145 Potassium 3.3 L Chloride 113 H Carbon Dioxide 24.0 Anion Gap 8 BUN 5 L Creatinine 0.69 Estim Creat Clear Calc 38.35 Est GFR (MDRD) Af Amer 106 Est GFR (MDRD) Non-Af 88 BUN/Creatinine Ratio 7.3 L Glucose 96 Calcium 8.8 Discharge Diet: Low fat/ Low Cholesterol Discharge Activity: Return to Normal Activity Weight Bearing Status: Weight bearing as tolerated Call your doctor if you observe: Shortness of breath, Dizziness, Fainting spells, - - rectal bleeding Home Medications: Medications to take at Discharge Losartan Potassium [Cozaar] 50 mg PO QHS 10/08/14 Cholecalciferol (VIT D3) [Vitamin D3] 1,000 unit PO DAILY 06/27/18 Escitalopram Oxalate [Lexapro] 20 mg PO DAILY 06/27/18 Gabapentin [Neurontin] 300 mg PO QHS 06/27/18 Primary Care Physician: Vikram Segura MD [Primary Care Provider] - Please follow up with your Primary Care Physician in: one week Please Follow Up With: Obdulio Correa MD When: 1-2 weeks Disposition: Home Minutes spent on discharge:: 40 Patient Condition:: Stable Medical Necessity - Tobacco Use Smoking Status: Former smoker - Patient quit cigarette tobacco usage greater than 20 years prior. Tobacco Use: Non-smoker Meaningful Use Info Meaningful Use Diagnoses (Choose all that apply): None applicable Code Visit Inpatient E&M: 29576 Disch Hosp
--- NOTE | 2018-07-04 15:47 | CASEMGMT ---
Addendum entered by Elizabeth Schwartz 07/05/18 14:05: This RN ABRAHAN received call from pt and pt states she has been doing fine since discharge. Pt states that her energy level has been increasing. Pt states that she already f/u with Dr. Vikram Segura yesterday and he doubled her losartan does for now. Pt states no questions regarding discharge instructions/medications at this time. Pt states that her only c/o at [facility] was the food and she states that all her 'caregivers were absolutely fantastic.' Pt voices no further questions/concerns/needs at this time. Odilia VALENCIA CM Original Note: ANNIE GAUTHIER F/U Phone Call LACE: 9 Strata: 3 Discharge date: 06/30/18 Call date: 07/04/18 Call time: 1548 Attempted to reach pt without success at this time, message left for pt to call this RN ABRAHAN back, if able. Odilia VALENCIA CM Admission dx: Upper GI bleed, anemia
== END 2018-06-30 13:22 | disposition home or self-care (01) | DRG 378 ==
LOC: ED 22:15 → ICU 22:35 → PCU 06-28 17:36 → ICU 06-28 20:11 → PCU 06-29 06:29
PROVIDERS: Surgery; Admitting Provider Family Medicine; Emergency Provider Emergency Medicine; Family Provider Family Medicine; PCP Family Medicine; Referring Provider Family Medicine; Visit Provider Student in an Organized Health Care Education/Training Program
PROC: 0DJ08ZZ Inspection of Upper Intestinal Tract, Via Natural or Artificial Opening Endoscopic (ICD-10-PCS; CPT 43235; principal; 2018-06-28 09:25)
PROC: 0DJD8ZZ Inspection of Lower Intestinal Tract, Via Natural or Artificial Opening Endoscopic (ICD-10-PCS; CPT 45378; principal; 2018-06-29 10:25)
DX: K57.31 Diverticulosis of large intestine without perforation or abscess with bleeding (principal); D62 Acute posthemorrhagic anemia; E03.9 Hypothyroidism, unspecified; E78.5 Hyperlipidemia, unspecified; M19.90 Unspecified osteoarthritis, unspecified site; R55 Syncope and collapse; I10 Essential (primary) hypertension; D05.11 Intraductal carcinoma in situ of right breast; Z90.710 Acquired absence of both cervix and uterus; Z87.891 Personal history of nicotine dependence; F41.9 Anxiety disorder, unspecified; F32.9 Major depressive disorder, single episode, unspecified; G25.81 Restless legs syndrome
CPT/HCPCS: 36415; 80048; 80053; 85025; 85027; 85610; 86850; 86900; 86920; 97162; 97165; 99285; J7030; J7040; J7050; P9016; A4216; J3490; J7799

== ENCOUNTER 2018-06-27 19:06 | Emergency (ER) | payer MEDICARE, SELFPAY ==
[2018-06-15 13:28] VITALS: BMI 23.7
== END 2018-06-27 23:59 | disposition home or self-care (01) ==
LOC: ED 11-09 15:03
PROVIDERS: Family Provider Family Medicine; PCP Family Medicine
DX: K92.2 Gastrointestinal hemorrhage, unspecified (principal)

== ENCOUNTER → 2018-07-04 12:00 | Outpatient (CLI) | payer MEDICARE, SELFPAY ==
[2018-06-28 00:04] VITALS: BMI 23.5
[2018-07-04 13:51] LABS: Absolute Lymphocyte Count 1.29 X10^3/ul (0.83-4.51); Absolute Neutrophil Count 5.5 X10^3/uL (2.0-7.7); Basophil# 0.06 X10^3/uL; Basophil% 0.7 % (0-1); Eosinophil# 0.19 X10^3/uL; Eosinophils% 2.4 % (0-5); Hematocrit 34.7 % (37-47); Hemoglobin 10.8 g/dl (12.0-15.0); Lymphocyte # 1.29 X10^3/ul (4.0); Mean Corp Hgb Conc 31.1 g/gl (32-36); Mean Corpuscular Hgb 29.2 pg (27.0-32.0); Mean Corpuscular Volume 93.8 fL (81-99); Mean Platelet Vol. 11.2 fl (6.2-12.0); Monocyte# 1.02 X10^3/uL; Monocyte% 12.7 % (0-10); Neutrophil # 5.47 X10^3/uL (2.7-7.7); Platelet Count 303 K/mm3 (150-450); RBC Distribution Width CV 14.4 % (11.6-14.6); RBC Distribution Width SD 47.6 fl (35.1-43.9); White Blood Count 8.1 K/mm3 (4.4-11.0)
[2018-07-04 13:52] LABS: POSITIVE COUNT NO; POSITIVE DIFFERENTIAL NO; POSITIVE MORPHOLOGY NO
[2018-07-04 14:14] LABS: ALB/GLOB Ratio 1.2 RATIO (0.9-2.4); AST(SGOT) 19 U/L (15-37); Alanine Aminotransfer ALT/SGPT 18 U/L (13-56); Albumin, Serum 3.7 g/dL (3.2-5.0); Alkaline Phosphatase 83 U/L (45-117); Anion Gap 6 (5-15); BUN 14 mg/dL (7-18); Calcium,Total 8.6 mg/dL (8.5-10.1); Chloride 106 mmol/L (98-107); Creatinine, Serum 0.67 mg/dL (0.55-1.02); EST Glomerular Filtration Rate 91 mL/min (>60); Est Glom Filt Rate - Afr Amer 110 mL/min (>60); Ferritin 41 ng/mL (8-252); Globulin 3.1 g/dL (2.2-4.2); Glucose 95 mg/dL (74-106); Protein, Total 6.8 g/dL (6.4-8.2); Sodium Level 142 mmol/L (136-145)
== END ==
PROVIDERS: Family Provider Family Medicine; PCP Family Medicine; Referring Provider Family Medicine; Visit Provider Family Medicine
DX: K57.92 Diverticulitis of intestine, part unspecified, without perforation or abscess without bleeding (principal)
CPT/HCPCS: 36415; 80053; 82728; 85025

== ENCOUNTER 2018-07-05 16:14 | Emergency (ER) | payer MEDICARE, SELFPAY ==
[2018-06-28 00:04] VITALS: BMI 23.5
[2018-07-05 16:14] VITALS: BP 248/88; PULSE 76; RESP 17; TEMP 37; O2SAT 97; BMI 23.1
--- NOTE | 2018-07-05 16:25 | NURSING ---
NO OLD EKGS
--- NOTE | 2018-07-05 16:40 | EKG12_ITS ---
Test Reason : CP Blood Pressure : / mmHG Vent. Rate : 074 BPM Atrial Rate : 074 BPM P-R Int : 142 ms QRS Dur : 080 ms QT Int : 420 ms P-R-T Axes : 038 013 034 degrees QTc Int : 466 ms Normal sinus rhythm Nonspecific ST and T wave abnormality Abnormal ECG Confirmed by ANNETTE BOONE, ZACH ([id number]), graphics editor MIKKI BENNETT ([id number]) on 07/10/2018 1:02:48 PM Referred By: Vikram Segura Confirmed By:ZACH BRYANT MD
--- NOTE | 2018-07-05 16:40 | RAD_ITS ---
STUDY: X-RAY CHEST REASON FOR EXAM: Female, 78 years old. Chest pain/pressure TECHNIQUE: Single AP portable view of the chest. COMPARISON: 11/07/2017 FINDINGS: EKG leads overlie the chest The lungs are clear and expanded. There is no demonstrated pleural abnormality. Normal size heart. Normal mediastinum and musa. Normal visualized pulmonary arteries. There is atherosclerotic calcification of the aortic arch with tortuosity. There are diffuse degenerative changes of the visualized thoracic spine. Normal visualized ribs, clavicles, and shoulders. There is no demonstrated abnormality of the visualized soft tissue structures of the upper abdomen. RAD/Chest 1 View (Portable) IMPRESSION: No acute pulmonary process Electronically Signed: Андрей Cooper MD at 17:00 EDT , Service support ,
--- NOTE | 2018-07-05 16:41 | ED.VISSUMM ---
- ER Visit Summary Date of Service: 07/05/18 Chief Complaint: Left-sided chest pain History of Present Illness: The patient is a 78 F. Hypertension. Denies any history of cardiac disease. In the last 2-3 years she has had a negative stress test. Denies any prior cardiac catheterization. Today had onset of left sided chest pain radiating from her left back around to the front of her chest no dyspnea. No diaphoresis. Is not pleuritic. No hemoptysis. No leg pain or swelling. Symptoms made worse with movement. She denies any history of DVT or PE. Physical Examination: Well-appearing older female. Vital signs are stable. She is afebrile. Initial blood pressure 248/88. Pulse ox 97% on room air no hypoxia. No distress. H EENT exam unremarkable. Neck nontender no JVD. No lymphadenopathy. Lungs clear to auscultation bilaterally. Heart regular rhythm no murmur rate about 70. Chest wall nontender. No ecchymosis or bruising. No subcu air. No reproducible tenderness. Abdomen is soft and nontender. Normal bowel sounds no peritoneal signs. Patient is moving all 4 extremities. Calves are nontender without edema or cords. Radial pulses are equal and symmetrical. Normal cold rolling machine setter strength. Normal dorsi plantar flexion. Back nontender. Neurologically she is awake alert with no Test Results: CBC shows a white count 8. Hemoglobin 11.6. BMP unremarkable potassium 3.2. Normal creatinine and gap. Troponin normal at less than 0.015. D-dimer elevated at 2.02. EKG sinus rhythm rate of 74 no acute signs of [place] or ischemia. Chest x-ray shows no acute abnormality normal cardiac silhouette mediastinum. Due to the elevated d-dimer a CT of the chest was obtained which shows no PE or dissection read by the radiologist and reviewed by me. There is also an incidental finding of a right breast calcified nodule which I discussed with the patient. Emergency Department Course and Treatment: Patient will undergo cardiac workup. I will hold the aspirin due to low suspicion and recent GI bleed. She also undergo a d-dimer due to her recent hospitalization for 3-4 days. Repeat exam patient doing well at 1846. She is comfortable being discharged home and follow-up as an outpatient. There was also a right breast calcified density seen on the CT of the chest which I discussed with her and went over all test results with her. She will need to follow-up with that. Treatment Plan: Follow-up with primary care physician as an outpatient for chest pain of uncertain etiology. Also for the abnormal right breast calcification. Disposition: Discharge Impression: Acute left-sided chest pain of uncertain etiology Incidental right breast calcified nodule of uncertain etiology salt on CT of the chest This note was generated with [employer] dictation software. It may contain incorrect words, spelling, and punctuation that were not noted in review of the chart prior to signing ED Disposition - Plan for ED Patient: Referrals: Vikram Segura MD [Primary Care Provider] -
[2018-07-05 17:02] LABS: Absolute Lymphocyte Count 1.65 X10^3/ul (0.83-4.51); Absolute Neutrophil Count 5.1 X10^3/uL (2.0-7.7); Basophil# 0.07 X10^3/uL; Basophil% 0.9 % (0-1); Eosinophil# 0.22 X10^3/uL; Eosinophils% 2.7 % (0-5); Hematocrit 36.9 % (37-47); Hemoglobin 11.6 g/dl (12.0-15.0); Lymphocyte # 1.65 X10^3/ul (4.0); Lymphocyte % 20.4 % (19-41); Mean Corp Hgb Conc 31.4 g/gl (32-36); Mean Corpuscular Hgb 29.2 pg (27.0-32.0); Mean Corpuscular Volume 92.9 fL (81-99); Mean Platelet Vol. 10.6 fl (6.2-12.0); Monocyte# 1.04 X10^3/uL; Monocyte% 12.9 % (0-10); Neutrophil # 5.09 X10^3/uL (2.7-7.7); Platelet Count 336 K/mm3 (150-450); RBC Distribution Width CV 14.2 % (11.6-14.6); RBC Distribution Width SD 47.2 fl (35.1-43.9); Red Blood Count 3.97 M/mm3 (4.2-5.4); White Blood Count 8.1 K/mm3 (4.4-11.0)
[2018-07-05 17:03] LABS: POSITIVE COUNT NO; POSITIVE DIFFERENTIAL NO; POSITIVE MORPHOLOGY NO
[2018-07-05 17:18] LABS: Anion Gap 7 (5-15); BUN 16 mg/dL (7-18); BUN/Creat Ratio 20.1 RATIO (10-20); Chloride 106 mmol/L (98-107); EST Glomerular Filtration Rate 74 mL/min (>60); Est Glom Filt Rate - Afr Amer 90 mL/min (>60); Estimated Creatinine Clearance 47.94 ml/min; Glucose 97 mg/dL (74-106); Potassium 3.2 mmol/L (3.5-5.1); Sodium Level 140 mmol/L (136-145)
[2018-07-05 17:19] LABS: D-Dimer Quantitative (DVT/PE) 2.02 FEU/ug/m (0.27-0.49)
--- NOTE | 2018-07-05 17:21 | ED.RN ---
DR CORONEL NOTIFIED D-DIMER=2.02.
[2018-07-05 17:29] VITALS: BP 219/96; PULSE 73; RESP 19; O2SAT 98
--- NOTE | 2018-07-05 17:40 | CT_ITS ---
STUDY: CTA CHEST REASON FOR EXAM: Female, 78 years old. Left chest pain, elevated d-dimer RADIATION DOSAGE (If Supplied By Facility): CTDIvol = ( 9.44 ) mGy, DLP = ( 337.47 ) mGycm TECHNIQUE: The examination was performed with the intravenous administration of Isovue 370 75ML IV. Post-processing of the angiographic images was performed, with multiplanar reformation and 3D reconstruction. Individualized dose optimization techniques were used for this CT. COMPARISON: None. FINDINGS: Normal enhancement of the main pulmonary artery and right and left pulmonary arteries. Normal enhancement of the bilateral peripheral pulmonary arteries. There is no demonstrated pulmonary embolism. Calcified thoracic aorta and visualized great vessels. There is no demonstrated aortic dissection. Normal heart and pericardium. Normal mediastinum. Normal hilar regions. Normal visualized trachea and bronchi. The lungs are well expanded. Right lower lobe calcified granuloma. Normal pleura. 2.8 x 2 cm nodular density with focal calcifications noted within the right breast. Enlarged left thyroid lobe with underlying nodules. Mild degenerative vertebral changes. Normal visualized upper abdomen. CT/CTA Chest W/WO Contrast IMPRESSION: No demonstrated pulmonary embolism or arterial dissection. Nodular density with calcification in the right breast is noted. Enlarged left thyroid lobe with underlying nodules. Electronically Signed: Natanael Tyler DO at 18:36 EDT Tel [phone], Service support ,
[2018-07-05] MEDS: 0.9% Normal Saline 1,000 ML 999 ML IV (17:50)
--- NOTE | 2018-07-05 17:54 | CASEMGMT ---
RN CM Assessment Introduced role of RN CM to patient.? Patient is alert, oriented and able?to participate in RN CM Assessment. ?Care providers, pharmacy, and demographics verified. Presentation: CC: CP, states thought that she pulled a Muscle. 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 States her doctor just added a second Home BP med for her that she has started to try and control it. States that she does not want to get admitted and wants to go home, feeling a little anxious. States feels fine. Re-Admit: Yes, 06/27-06/30/18 for UGIB, Anemia. Barriers/Issues: Uncontrolled HTN PCP: Dr Vikram Segura Specialists: Surg- Dr Javier, has an appointment 07/06/18, breast biopsy, states will not do any treatment no matter results. Preferred [facility]acy: [facility] Insurance: [facility] Medicare Prescription Benefit:?Yes ?LNOK: Bin (Joni) James LW/HPOA: States Yes to both and believes on file at [facility]. HPOA- Both son David Ramirez and Dtr Amina James Living Arrangements:? Lives with her in a Mobile Home, 5 steps to enter. Ambulation/ADL?s: Independent with ambulation and ADL's. Transportation: Patient drives DME: None HHC: None SNF: None Goal: Home with no needs. DC PLAN: Patient D-dimer elevated, having CT Chest done, if negative plan for patient to DC Home from ER.
--- NOTE | 2018-07-05 18:52 | ED.DEP ---
ED Disposition - Plan for ED Patient: Disposition: Home or Assisted Living Instructions: ED Chest Pain Atypical Unkn Cause Referrals: Vikram Segura MD [Primary Care Provider] - As soon as possible Additional Instructions: Your labs are unremarkable today other than CAT scan of the chest showed no blood clot but incidental calcified nodule in your right breast which we can have a follow-up mammogram or ultrasound done. Please follow-up with your primary care physician Dr. Vikram Segura for that. Your chest pain does not seem to be cardiac nor is it a blood clot. You can follow-up with Dr. Segura of that also.
[2018-07-05 18:54] VITALS: BP 122/79; PULSE 78; RESP 18; O2SAT 95
[2018-07-05 19:10] VITALS: RESP 16
== END 2018-07-05 19:11 | disposition home or self-care (01) ==
PROVIDERS: Emergency Provider Emergency Medicine; Family Provider Family Medicine; PCP Family Medicine
DX: R07.9 Chest pain, unspecified (principal); R74.8 Abnormal levels of other serum enzymes; N63.10 Unspecified lump in the right breast, unspecified quadrant; I10 Essential (primary) hypertension; Z79.899 Other long term (current) drug therapy; Z86.2 Personal history of diseases of the blood and blood-forming organs and certain disorders involving the immune mechanism; Z87.19 Personal history of other diseases of the digestive system; Z87.891 Personal history of nicotine dependence
CPT/HCPCS: 71045; 71275; 80048; 84484; 85025; 85379; 93005; 99284; Q9967; A4216

== ENCOUNTER 2018-07-23 22:03 | Observation (INO) | payer MEDICARE, SELFPAY ==
[2018-07-06 14:12] VITALS: BMI 23.1
[2018-07-23 22:04] VITALS: BP 239/96; PULSE 81; RESP 16; TEMP 36.6; O2SAT 97; BMI 24.2
[2018-07-23 23:33] VITALS: BP 236/87; PULSE 79; RESP 19; O2SAT 96
[2018-07-24] VITALS (10 sets, daily range): BP systolic 140–190; BP diastolic 50–78; PULSE 15–91; RESP 16–18; TEMP 36.7–37.5; O2SAT 88–98; BMI 22.6
[2018-07-24] MEDS: Ondansetron 4 MG/2 ML Vial IV
[2018-07-24] MEDS: morphine 8 MG/ML Syringe 6 MG IV
--- NOTE | 2018-07-24 00:11 | RAD_ITS ---
HISTORY: fall. having left rib pain EXAM: XR Chest 2 Views COMPARISON: 07/05/18 CT chest. FINDINGS: LINES/DEVICES: None. LUNGS: Radiographically clear. No consolidation, edema or effusion. No pneumothorax. Emphysematous changes are noted. MEDIASTINUM AND CARDIOVASCULAR STRUCTURES: Cardiac silhouette not enlarged. Central airways and mediastinal contour are unremarkable. Atherosclerosis thoracic aorta. BONES AND SOFT TISSUES: Unremarkable. RAD/Chest PA and Lateral IMPRESSION: COPD. No radiographic evidence of acute cardiopulmonary disease. at 0052 Reported and signed by: Paulie Williamson MD Electronically Signed: Paulie Williamson, at 0:51 EDT Tel , Service support ,
--- NOTE | 2018-07-24 01:09 | ED.VISSUMM ---
- ER Visit Summary Date of Service: 07/24/18 Chief Complaint: Fell after being pulled down by her dogs when she was walking them on the leash. Hit left lower rib cage and left forehead on cement. No LOC. She is on no blood thinners. Denies any neck pain. Denies any abdominal pain. Prior to the fall she was feeling fine. History of Present Illness: Patient is walking her dogs and the plate on the leash and she fell. Injured her left forehead and left rib cage on the cement. No LOC. She has had no vomiting. Physical Exam: The patient is a 78 F vital signs stable afebrile. Initially her blood pressure was elevated it will be repeated. HEENT exam moderate-sized hematoma left forehead at the hairline. No laceration. Pupils round reactive light. Otherwise scalp nontender. C-spine nontender. Trachea midline. Normal range of motion. Lungs clear to auscultation bilaterally. Tender left lower rib cage. No crepitance. No subcu air. No bony deformity. Heart regular rhythm no murmur. Abdomen is soft and nontender normal bowel sounds no peritoneal signs. Pelvic girdle intact. Remedies moving all 4. Neurovascularly intact. Nontender no deformities. Hips are nontender. No shortening or rotation. C-spine, T-spine and L-spine are all nontender. Neurologically she is awake alert with no focal motor deficits. Test Results: CT of the brain without contrast shows a left forehead hematoma but no skull fracture or bleeding. Read by the radiologist and reviewed by me. Chest x-ray shows ostia pi?a but no obvious rib fractures.. Normal cardiac silhouette. No pneumothorax. Emergency Department Course and Treatment: Patient initially treated with morphine and Zofran for pain. Was given a second dose of morphine. I went over all of her test results with her. Treatment Plan: Admission for pain control and social media senior associate consultation. Disposition: Admission Impression: Fall Closed head injury with soft tissue hematoma Left lower rib cage contusion Intractable pain This note was generated with [employer] dictation software. It may contain incorrect words, spelling, and punctuation that were not noted in review of the chart prior to signing ED Disposition - Plan for ED Patient: Referrals: Vikram Segura MD [Primary Care Provider] -
--- NOTE | 2018-07-24 01:13 | ED.DCSUM_ITS ---
- ER Visit Summary Date of Service: 07/24/18 Chief Complaint: Fell after being pulled down by her dogs when she was walking them on the leash. Hit left lower rib cage and left forehead on cement. No LOC. She is on no blood thinners. Denies any neck pain. Denies any abdominal pain. Prior to the fall she was feeling fine. History of Present Illness: Patient is walking her dogs and the plate on the leash and she fell. Injured her left forehead and left rib cage on the cement. No LOC. She has had no vomiting. Physical Exam: The patient is a 78 F vital signs stable afebrile. Initially her blood pressure was elevated it will be repeated. HEENT exam moderate-sized hematoma left forehead at the hairline. No laceration. Pupils round reactive light. Otherwise scalp nontender. C-spine nontender. Trachea midline. Normal range of motion. Lungs clear to auscultation bilaterally. Tender left lower rib cage. No crepitance. No subcu air. No bony deformity. Heart regular rhythm no murmur. Abdomen is soft and nontender normal bowel sounds no peritoneal signs. Pelvic girdle intact. Remedies moving all 4. Neurovascularly intact. Nontender no deformities. Hips are nontender. No shortening or rotation. C-spine, T-spine and L-spine are all nontender. Neurologically she is awake alert with no focal motor deficits. Test Results: CT of the brain without contrast shows a left forehead hematoma but no skull fracture or bleeding. Read by the radiologist and reviewed by me. Chest x-ray shows ostia pi?a but no obvious rib fractures.. Normal cardiac silhouette. No pneumothorax. Emergency Department Course and Treatment: Patient initially treated with morphine and Zofran for pain. Was given a second dose of morphine. I went over all of her test results with her. Treatment Plan: Admission for pain control and medical social consultant consultation. Disposition: Admission Impression: Fall Closed head injury with soft tissue hematoma Left lower rib cage contusion Intractable pain This note was generated with [employer] dictation software. It may contain incorrect words, spelling, and punctuation that were not noted in review of the chart prior to signing ED Disposition - Plan for ED Patient: Referrals: Vikram Segura MD [Primary Care Provider] -
[2018-07-24] MEDS: Morphine 4 MG/ML Syringe IV ×2 (01:15→04:21)
[2018-07-24 01:41] LABS: Absolute Lymphocyte Count 0.96 X10^3/ul (0.83-4.51); Absolute Neutrophil Count 10.9 X10^3/uL (2.0-7.7); Basophil# 0.04 X10^3/uL; Basophil% 0.3 % (0-1); Eosinophil# 0.01 X10^3/uL; Eosinophils% 0.1 % (0-5); Hematocrit 35.9 % (37-47); Hemoglobin 11.4 g/dl (12.0-15.0); Lymphocyte # 0.96 X10^3/ul (4.0); Lymphocyte % 7.4 % (19-41); Mean Corp Hgb Conc 31.8 g/gl (32-36); Mean Corpuscular Hgb 27.8 pg (27.0-32.0); Mean Corpuscular Volume 87.6 fL (81-99); Mean Platelet Vol. 9.8 fl (6.2-12.0); Monocyte# 1.08 X10^3/uL; Monocyte% 8.3 % (0-10); Neutrophil # 10.85 X10^3/uL (2.7-7.7); Neutrophil % 83.7 % (47-70); POSITIVE COUNT NO; POSITIVE DIFFERENTIAL NO; POSITIVE MORPHOLOGY NO; Platelet Count 268 K/mm3 (150-450); RBC Distribution Width CV 13.8 % (11.6-14.6); RBC Distribution Width SD 43.1 fl (35.1-43.9)
--- NOTE | 2018-07-24 01:47 | ED.RN ---
PT SATTING 84% ON ROOM AIR. PT RECENTLY GIVEN MORPHINE. THIS RN APPLIED 3LNC AND IS NOW 98%.
--- NOTE | 2018-07-24 01:49 | ED.RN ---
DR. CORONEL INFORMED OF O2 NC BEING APPLIED TO PT.
--- NOTE | 2018-07-24 01:50 | PCM.HP.STD ---
Problem List (1) Intractable pain Status: Acute (2) Fall Status: Acute History of Present Illness Date of Admission: 07/24/18 Chief Complaint: fall with pain The patient is a 78 year old F with a significant history of hypertension; hypothyroidism; diverticulosis who was admitted on 06/27/2018 and discharged on 06/30/2018 for acute blood loss anemia due to diverticular bleed now presenting with fall and pain. Patient was holding her dog on a leash suddenly because an animal (not sure whether a cat) passed by her dog jumped from the Goodman pulling patient who fell landing on her left forehead and her left chest but was able to break the fall with her hand sustained a wound to her right middle finger. She reports excruciating pain to her left forehead and her left chest. She reports that she could not get up from the floor after falling and her who is a 83-year-old could not pick her up for which reason the paramedics were called and patient was brought to the emergency department. A chest x-ray done at emergency department was unremarkable. Brain CT showed no evidence of intracranial injury or skull fracture but showed left frontal scalp hematoma. At emergency department patient received fentanyl, morphine and Zofran. 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) HTN (hypertension) (Chronic) History of hysterectomy (Chronic) Hypothyroidism (Chronic) Medical History: Medical History (Last Reviewed 07/24/18 @ 04:06 by Dwayne Best MD) Fall (Acute) W19.XXXA Inferior pubic ramus fracture (Acute) S32.599A HTN (hypertension) (Chronic) I10 Hypothyroidism (Chronic) E03.9 Arthritis M19.90 Diverticulosis K57.90 Ductal carcinoma in situ (DCIS) of right breast D05.11 Hypercholesterolemia E78.00 Vitamin D deficiency E55.9 Allergies atorvastatin [From Lipitor] Allergy (Mild, Verified 07/06/18 14:12) muscle aches lisinopril Allergy (Mild, Verified 07/06/18 14:12) cough rosuvastatin [From Crestor] Allergy (Mild, Verified 07/06/18 14:12) muscle aches alendronate sodium [From Fosamax] Allergy (Unknown, Verified 07/06/18 14:12) unknown Sulfa (Sulfonamide Antibiotics) Allergy (Verified 07/06/18 14:12) Rash acetaminophen [From Tylenol] Adverse Reaction (Verified 07/06/18 14:12) restless legs RESTLESS LEGS codeine Adverse Reaction (Verified 07/06/18 14:12) Nausea Actdhqu-Eoo-Jbf Reductase Inhibitor Adverse Reaction (Verified 07/06/18 14:12) Other MUSCLE CRAMPS Home Medications: Ambulatory Orders Medication Instructions Recorded Losartan Potassium [Cozaar] 50 mg PO BID 10/08/14 Cholecalciferol (VIT D3) [Vitamin 1,000 unit PO DAILY 06/27/18 D3] Escitalopram Oxalate [Lexapro] 20 mg PO DAILY 06/27/18 Gabapentin [Neurontin] 300 mg PO QHS 06/27/18 Surgical History: Surgical History (Last Reviewed 07/24/18 @ 04:06 by Dwayne Best MD) History of hysterectomy (Chronic) Z90.710 History of left mastoidectomy Z90.89 History of lumpectomy of right breast Z98.890 History of right hip replacement Z96.641 History of thyroid surgery Z98.890 Surgical History: - - R breast ductal carcinoma lumpectomy, recent to current presentation R breast lump Bx, right total hip replacement, thyroid nodule resection, hysterectomy. 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, Depression LEAN SPECIALIST History: No pertinent LEAN SPECIALIST history Lives: Spouse/ Significant Other Smoking Status: Never smoker - *Family History Sibling Family History: Family History (Last Reviewed 07/24/18 @ 04:06 by Dwayne Best MD) Mother Heart disease CVA (cerebral vascular accident) Father Heart disease History Items: Asthma - Brother Maternal Family History: Family History (Last Reviewed 07/24/18 @ 04:06 by Dwayne Best MD) Mother Heart disease CVA (cerebral vascular accident) Father Heart disease History Items: Heart Disease, Stroke Paternal Family History: Family History (Last Reviewed 07/24/18 @ 04:06 by Dwayne Best MD) Mother Heart disease CVA (cerebral vascular accident) Father Heart disease History Items: Heart Disease Review of Systems Constitutional: Denies: Chills, Fever, Weight Change HEENT: Reports: - - Pain at left frontal area. Denies: Head Aches, Sinus Congestion, Sinus Drainage Cardiovascular: Denies: Chest Pain, Palpitations Respiratory: Reports: - - Left flank pain. Denies: Cough, Shortness of breath at rest, Sputum production Gastrointestinal: Denies: Abdominal Pain, Nausea, Vomiting Genitourinary: Denies: Dysuria Musculoskeletal: Denies: Joint Pain, Joint Tenderness Skin: Denies: Rash, Wounds Neurological: Denies: Numbness, Tingling, Focal weakness Psychiatric: Denies: Anxiety, Depression, Homicidal Ideations, Suicidal Ideations Hematologic/ Lymphatic: Denies: Easy Bruising, Easy Bleeding VTE Information - Inpt Only VTE Present on Admission: No VTE Mechan Device Prophylaxis: SCD's VTE Pharm Prophylaxis ordered?: No Patient Problems: Active and Suspected Problems (Last Reviewed 07/24/18 @ 04:06 by Dwayne Best MD) Intractable pain (Acute) - Physical Exam General: Alert, Oriented x3, Cooperative HEENT: PERRLA, EOMI, Normocephalic, - - Left frontal area hematoma. Neck: Supple, No JVD, Negative Carotid Bruits Lungs: Diminished, - - Tender left ribs. Cardiovascular: Regular rate, No murmurs Abdomen: Bowel Sounds Present, Soft, Non Tender Extremities: No edema, Capillary Refill Less than 3 Seconds, - Skin: - - Open area of right middle finger. Musculoskeletal: No Muscle Wasting Neurological: Neuro grossly intact Psych/Mental Status: Normal Affect, Appropriate Vital Signs Temp Pulse Resp BP Pulse Ox 97.8 F 85 17 190/77 H 95 07/23/18 22:04 07/24/18 01:10 07/24/18 01:10 07/24/18 01:10 07/24/18 01:10 Oxygen Delivery Method Room Air Weight: 62.1 kg Body Mass Index (BMI) 24.2 Laboratory Tests Past 24 Hrs 07/24/18 07/24/18 01:30 01:30 WBC 13.0 H RBC 4.10 L Hgb 11.4 L Hct 35.9 L MCV 87.6 MCH 27.8 MCHC 31.8 L RDW 13.8 RDW Differential 43.1 Plt Count 268 MPV 9.8 Immature Gran % (Auto) 0.200 Neut % (Auto) 83.7 H Lymph % (Auto) 7.4 L Warrick % (Auto) 8.3 Eos % (Auto) 0.1 Baso % (Auto) 0.3 Absolute Neuts (auto) 10.9 H Absolute Lymphs (auto) 0.96 Total Counted Not Reportable Sodium Pending Potassium Pending Chloride Pending Carbon Dioxide Pending Anion Gap Pending BUN Pending Creatinine Pending Est GFR (MDRD) Af Amer Pending Est GFR (MDRD) Non-Af Pending BUN/Creatinine Ratio Pending Glucose Pending Calcium Pending Assessment/Plan All Active Problems (Last Reviewed 07/24/18 @ 04:06 by Dwayne Best MD) Microcalcification of right breast on mammogram (Acute) GI bleed (Acute) Syncope and collapse (Acute) Acute blood loss anemia (Acute) Intractable pain (Acute) Fall (Acute) Inferior pubic ramus fracture (Acute) The patient is a 78 year old F with a significant history of hypertension; hypothyroidism; diverticulosis who was admitted on 06/27/2018 and discharged on 06/30/2018 for acute blood loss anemia due to due to diverticular bleed now presenting with fall sustaining a hematoma to his left scalp; pain to his left ribs and a wound to his right middle finger. Fall with forehead hematoma; pain to left rib and right middle finger wound Chest x-ray showed only emphysematous changes. Chest x-ray was independently reviewed. I agree with radiologist interpretation. Brain CT showed left frontal scalp hematoma. Brain CT was independently reviewed. I agree with radiologist interpretation. Nursing communication to apply ice to left forehead hematoma Oxycodone as needed for moderate pain Morphine as needed for severe pain Of note patient is allergic to Tylenol In the setting of initiating narcotics Zofran IV as needed and Senokot as for bowel protocol was ordered. Continue neomycin topical antibiotics to right middle finger. PT and OT for strengthening and balance training. Case management for discharge planning. Depression Citalopram continued Hypertension On presentation her blood pressure was not within goal but this could be secondary to pain Losartan continued As needed hydralazine ordered Trend blood pressure and adjust blood pressure medication Neuropathy Gabapentin continued Vitamin D deficiency: vitamin D continued DVT prophylaxis: Because of Left scalp hematoma chemoprophylaxis was not ordered at this time SCD ordered. Code Visit OBSV E&M: 77896 Initial observation care L3
[2018-07-24 01:51] LABS: Anion Gap 5 (5-15); BUN 14 mg/dL (7-18); BUN/Creat Ratio 15.4 RATIO (10-20); Calcium,Total 8.6 mg/dL (8.5-10.1); Chloride 109 mmol/L (98-107); Creatinine, Serum 0.91 mg/dL (0.55-1.02); EST Glomerular Filtration Rate 63 mL/min (>60); Est Glom Filt Rate - Afr Amer 77 mL/min (>60); Estimated Creatinine Clearance 42.15 ml/min; Glucose 137 mg/dL (74-106); Potassium 3.6 mmol/L (3.5-5.1); Sodium Level 141 mmol/L (136-145)
[2018-07-24] MEDS: oxyCODONE 5 MG Tablet PO ×3 (08:37→13:52)
[2018-07-24] MEDS: Neomycin/Bacitracin/Polymyxin Ointment 1 APPLIC TOPICAL ×2 (08:39→21:30)
[2018-07-24] MEDS: Losartan Potassium 50 MG Tablet PO ×2 (08:40→21:30)
[2018-07-24] MEDS: Escitalopram Oxalate 20 MG Tablet PO (08:40)
[2018-07-24] MEDS: Senna/Docusate Sodium 1 Tablet PO ×2 (08:40→21:30)
--- NOTE | 2018-07-24 10:18 | PCM.PN.HOSP ---
Patient Problems: Active and Suspected Problems (Last Reviewed 07/24/18 @ 04:06 by Dwayne Best MD) Intractable pain (Acute) Subjective: Patient seen and examined. She was admitted with a complaint of mechanical fall after she fell whilst walking her dog. She fell and hit her left forehead and left side of her chest. Chest x-ray done was unremarkable and brain CT showed no evidence of intracranial injury or skull fracture but showed a left frontal scalp hematoma. She has been managed for intractable pain due to mechanical fall. Patient still complains of pain, she has pain especially with movement. Review of systems otherwise negative. Labs and vitals reviewed. Vitals/I&O's: Vital Signs Temp Pulse Resp BP Pulse Ox 98.6 F 65 16 154/70 H 96 07/24/18 05:13 07/24/18 05:13 07/24/18 05:13 07/24/18 05:13 07/24/18 07:25 Oxygen Flow Rate (L/min) 2 Oxygen Delivery Method Nasal Cannula Weight: 127 lb 10.362 oz Body Mass Index (BMI) 22.6 Intake and Output for Last 24 Hours 07/22/18 07/23/18 07/24/18 23:59 23:59 23:59 Intake Total 240 / 240 Balance 240 / 240 General: Alert, Oriented x3, Cooperative, No apparent distress HEENT: Atraumatic, PERRLA, EOMI, Normocephalic Oral: Moist Mucosa Neck: Supple, No JVD, Negative Carotid Bruits Lungs: Clear to auscultation, Normal air movement, No rhonchi, No wheeze, No rales Cardiovascular: Regular rate, Regular Rhythm, Normal S1, Normal S2, No murmurs Abdomen: Bowel Sounds Present, Soft, Non Tender, Non-Distended, No Hepato-splenomegaly Extremities: No clubbing, No cyanosis, No edema, Capillary Refill Less than 3 Seconds Skin: - - small hematoma over left forehead; superficial bruises over elbows Musculoskeletal: No Tenderness to Palpation of Joints or Extremities Lymphatic: No Cervical, Supraclavicular, or Inguinal Adenopathy Neurological: Cranial nerves II-XII grossly intact, Neuro grossly intact, Motor Exam 5/5 strength throughout Psych/Mental Status: Normal Affect, Appropriate, Alert and oriented to time, place, person, mood and affect Laboratory Results 07/24/18 01:30: WBC 13.0 H, RBC 4.10 L, Hgb 11.4 L, Hct 35.9 L, MCV 87.6, MCH 27.8, MCHC 31.8 L, RDW 13.8, RDW Differential 43.1, Plt Count 268, MPV 9.8, Immature Gran % (Auto) 0.200, Neut % (Auto) 83.7 H, Lymph % (Auto) 7.4 L, [place] % (Auto) 8.3, Eos % (Auto) 0.1, Baso % (Auto) 0.3, Absolute Neuts (auto) 10.9 H, Absolute Lymphs (auto) 0.96, Total Counted Not Reportable 07/24/18 01:30: Sodium 141, Potassium 3.6, Chloride 109 H, Carbon Dioxide 27.0, Anion Gap 5, BUN 14, Creatinine 0.91, Estim Creat Clear Calc 42.15, Est GFR (MDRD) Af Amer 77, Est GFR (MDRD) Non-Af 63, BUN/Creatinine Ratio 15.4, Glucose 137 H, Calcium 8.6 Diagnostic Data Chest X-Ray 07/24/18 00:11 IMPRESSION: COPD. No radiographic evidence of acute cardiopulmonary disease. at 0052 Reported and signed by: Paulie Williamson MD Electronically Signed: Paulie Williamson, at 0:51 EDT Tel , Service support , Brain CT 07/24/18 23:44 IMPRESSION: No evidence of intracranial injury or skull fracture. Left frontal scalp hematoma. Individualized dose optimization techniques were used for this CT. at 0100 Reported and signed by: Paulie Williamson MD Electronically Signed: Paulie Williamson, at 0:59 EDT Tel , Service support , Current Medications Cholecalciferol (Vitamin D) 1,000 unit PO DAILY [facility] Last Admin: 07/24/18 08:39 Dose: 1,000 unit Escitalopram Oxalate (Lexapro) 20 mg PO DAILY [facility] Last Admin: 07/24/18 08:40 Dose: 20 mg Gabapentin (Neurontin) 300 mg PO QHS [facility] Hydralazine HCl (Apresoline Iv) 10 mg IV Q4H PRN PRN PRN Reason: SBP > 160 Losartan Potassium (Cozaar) 50 mg PO BID [facility] Last Admin: 07/24/18 08:40 Dose: 50 mg Melatonin (Melatonin) 3 mg PO QHS PRN PRN PRN Reason: INSOMNIA Morphine Sulfate () 2 mg IV Q3H PRN PRN PRN Reason: Severe pain (7-10/10) Neomycin/Polymyxin/Bacitracin (Neosporin) 1 applic TOPICAL BID [facility]; Protocol Last Admin: 07/24/18 08:39 Dose: 1 applicatio Ondansetron HCl (Zofran) 4 mg IV Q8H PRN PRN PRN Reason: NAUSEA/VOMITING Oxycodone HCl (Oxyir) 5 mg PO Q4H PRN PRN PRN Reason: Moderate Pain (4-6/10) Last Admin: 07/24/18 08:37 Dose: 5 mg Senna/Docusate Sodium (Senokot-S, Kathy-Colace) 1 tablet PO BID [facility] Last Admin: 07/24/18 08:40 Dose: 1 tablet Sodium Chloride () 5 - 15 ml IV UD PRN PRN Reason: SALINE FLUSH Medical Necessity - Tobacco Use Smoking Status: Former smoker Assessment/Plan All Active Problems (Last Reviewed 07/24/18 @ 04:06 by Dwayne Best MD) Microcalcification of right breast on mammogram (Acute) GI bleed (Acute) Syncope and collapse (Acute) Acute blood loss anemia (Acute) Intractable pain (Acute) Fall (Acute) Inferior pubic ramus fracture (Acute) 1. Intractable pain due to mechanical fall complains of pain over left ribs; CXR showed no rib fractures on oxycodone and morphine prn for pain PT/OT on board case management consulted 2. Frontal scalp hematoma due to mechanical fall CT brain showed left frontal scalp hematoma on oxycodone and morpine for pain PT/OT consulted 3. Depression: On citalopram 4. Hypertension: Blood pressure was elevated on admission was in the 230s systolic and this is likely due to pain. On losartan and hydralazine as needed. Will adjust medications as needed. 5. Peripheral neuropathy: On gabapentin 6. Leukocytosis: White cell count was 13. No evidence of infection. This is likely reactive. Will monitor for resolution. 7. Vitamin D deficiency: Vitamin D supplementation. 8. DVT prophylaxis: SCDs. Code Status: Full code Code Visit OBSV E&M: 75439 Subsequent observation care L2
--- NOTE | 2018-07-24 10:25 | PN_ITS ---
Patient Problems: Active and Suspected Problems (Last Reviewed 07/24/18 @ 04:06 by Dwayne Best MD) Intractable pain (Acute) Subjective: Patient seen and examined. She was admitted with a complaint of mechanical fall after she fell whilst walking her dog. She fell and hit her left forehead and left side of her chest. Chest x-ray done was unremarkable and brain CT showed no evidence of intracranial injury or skull fracture but showed a left frontal scalp hematoma. She has been managed for intractable pain due to mechanical fall. Patient still complains of pain, she has pain especially with movement. Review of systems otherwise negative. Labs and vitals reviewed. Vitals/I&O's: Vital Signs Temp Pulse Resp BP Pulse Ox 98.6 F 65 16 154/70 H 96 07/24/18 05:13 07/24/18 05:13 07/24/18 05:13 07/24/18 05:13 07/24/18 07:25 Oxygen Flow Rate (L/min) 2 Oxygen Delivery Method Nasal Cannula Weight: 127 lb 10.362 oz Body Mass Index (BMI) 22.6 Intake and Output for Last 24 Hours 07/22/18 07/23/18 07/24/18 23:59 23:59 23:59 Intake Total 240 / 240 Balance 240 / 240 General: Alert, Oriented x3, Cooperative, No apparent distress HEENT: Atraumatic, PERRLA, EOMI, Normocephalic Oral: Moist Mucosa Neck: Supple, No JVD, Negative Carotid Bruits Lungs: Clear to auscultation, Normal air movement, No rhonchi, No wheeze, No rales Cardiovascular: Regular rate, Regular Rhythm, Normal S1, Normal S2, No murmurs Abdomen: Bowel Sounds Present, Soft, Non Tender, Non-Distended, No Hepato- splenomegaly Extremities: No clubbing, No cyanosis, No edema, Capillary Refill Less than 3 Seconds Skin: - - small hematoma over left forehead; superficial bruises over elbows Musculoskeletal: No Tenderness to Palpation of Joints or Extremities Lymphatic: No Cervical, Supraclavicular, or Inguinal Adenopathy Neurological: Cranial nerves II-XII grossly intact, Neuro grossly intact, Motor Exam 5/5 strength throughout Psych/Mental Status: Normal Affect, Appropriate, Alert and oriented to time, place, person, mood and affect Laboratory Results 07/24/18 01:30: WBC 13.0 H, RBC 4.10 L, Hgb 11.4 L, Hct 35.9 L, MCV 87.6, MCH 27.8, MCHC 31.8 L, RDW 13.8, RDW Differential 43.1, Plt Count 268, MPV 9.8, Immature Gran % (Auto) 0.200, Neut % (Auto) 83.7 H, Lymph % (Auto) 7.4 L, [place] % (Auto) 8.3, Eos % (Auto) 0.1, Baso % (Auto) 0.3, Absolute Neuts (auto) 10.9 H, Absolute Lymphs (auto) 0.96, Total Counted Not Reportable 07/24/18 01:30: Sodium 141, Potassium 3.6, Chloride 109 H, Carbon Dioxide 27.0, Anion Gap 5, BUN 14, Creatinine 0.91, Estim Creat Clear Calc 42.15, Est GFR (MDRD) Af Amer 77, Est GFR (MDRD) Non-Af 63, BUN/Creatinine Ratio 15.4, Glucose 137 H, Calcium 8.6 Diagnostic Data Chest X-Ray 07/24/18 00:11 IMPRESSION: COPD. No radiographic evidence of acute cardiopulmonary disease. at 0052 Reported and signed by: Paulie Williamson MD Electronically Signed: Paulie Williamson, at 0:51 EDT Tel , Service support , Brain CT 07/24/18 23:44 IMPRESSION: No evidence of intracranial injury or skull fracture. Left frontal scalp hematoma. Individualized dose optimization techniques were used for this CT. at 0100 Reported and signed by: Paulie Williamson MD Electronically Signed: Paulie Williamson, at 0:59 EDT Tel , Service support , Current Medications Cholecalciferol (Vitamin D) 1,000 unit PO DAILY [facility] Last Admin: 07/24/18 08:39 Dose: 1,000 unit Escitalopram Oxalate (Lexapro) 20 mg PO DAILY [facility] Last Admin: 07/24/18 08:40 Dose: 20 mg Gabapentin (Neurontin) 300 mg PO QHS [facility] Hydralazine HCl (Apresoline Iv) 10 mg IV Q4H PRN PRN PRN Reason: SBP > 160 Losartan Potassium (Cozaar) 50 mg PO BID [facility] Last Admin: 07/24/18 08:40 Dose: 50 mg Melatonin (Melatonin) 3 mg PO QHS PRN PRN PRN Reason: INSOMNIA Morphine Sulfate () 2 mg IV Q3H PRN PRN PRN Reason: Severe pain (7-10/10) Neomycin/Polymyxin/Bacitracin (Neosporin) 1 applic TOPICAL BID [facility]; Protocol Last Admin: 07/24/18 08:39 Dose: 1 applicatio Ondansetron HCl (Zofran) 4 mg IV Q8H PRN PRN PRN Reason: NAUSEA/VOMITING Oxycodone HCl (Oxyir) 5 mg PO Q4H PRN PRN PRN Reason: Moderate Pain (4-6/10) Last Admin: 07/24/18 08:37 Dose: 5 mg Senna/Docusate Sodium (Senokot-S, Kathy-Colace) 1 tablet PO BID [facility] Last Admin: 07/24/18 08:40 Dose: 1 tablet Sodium Chloride () 5 - 15 ml IV UD PRN PRN Reason: SALINE FLUSH Medical Necessity - Tobacco Use Smoking Status: Former smoker Assessment/Plan All Active Problems (Last Reviewed 07/24/18 @ 04:06 by Dwayne Best MD) Microcalcification of right breast on mammogram (Acute) GI bleed (Acute) Syncope and collapse (Acute) Acute blood loss anemia (Acute) Intractable pain (Acute) Fall (Acute) Inferior pubic ramus fracture (Acute) 1. Intractable pain due to mechanical fall * complains of pain over left ribs; CXR showed no rib fractures * on oxycodone and morphine prn for pain * PT/OT on board * case management consulted * 2. Frontal scalp hematoma due to mechanical fall * CT brain showed left frontal scalp hematoma * on oxycodone and morpine for pain * PT/OT consulted * 3. Depression: On citalopram 4. Hypertension: * Blood pressure was elevated on admission was in the 230s systolic and this is likely due to pain. * On losartan and hydralazine as needed. Will adjust medications as needed. * 5. Peripheral neuropathy: On gabapentin 6. Leukocytosis: White cell count was 13. No evidence of infection. This is likely reactive. Will monitor for resolution. 7. Vitamin D deficiency: Vitamin D supplementation. 8. DVT prophylaxis: SCDs. Code Status: Full code Code Visit OBSV E&M: 57375 Subsequent observation care L2
--- NOTE | 2018-07-24 11:40 | CASEMGMT ---
RN CM Face to Face with patient for initial transition planning/care coordination assessment. RN CM introduced self and role at [facility]. Patient lying in bed, alert and oriented. Patient willing to participate in assessment and is able to answer all questions appropriately. Care providers, pharmacy, and demographics verified. Patient wishes to discharge home, denies need for home health at this time. Patient states she has no further needs or concerns at this time. CM to follow for discharge planning needs that may arise. PCP: Vikram Segura Specialists: surgeon Avelina Javier Pharmacy: [facility] Insurance: [facility] Prescription Benefit: Yes Living Will/HPOA: yes, Bin Ramirez LNOK: Living Arrangements: Patient lives with in mobile home. 5 steps and railing to enter the home. Transportation: self/ DME/HHC: Patient denies DME in the home. Would benefit from walker per therapy. Patient states she will borrow one from a friend. RN CM will assist in obtaining script for FWW and give to patient at discharge should she need a walker. Disposition Plan: Patient to discharge with family support and follow-up plans in place. Elizabeth CARRANZA, RN, CM
--- NOTE | 2018-07-24 14:30 | CASEMGMT ---
Social Work Note SW received consult for New Diagnosis. SW reviewed pt's chart. Pt had right breast biopsy as pt had a lump on her chest. Pt's test came back inconclusive and pt's lump could either be malignant or benign. SW met with pt, introduced self and role at [facility]. Pt's present jail through interaction with pt. Pt states that she has been in [place] for about 12 years. Pt states that she is originally from [place] but all of her children and grandchildren moved to [place] so she and her decided to move to [place] as well. Pt confirms that she had a biopsy completed but states that she is choosing to decide that the lump is benign. SW offered support to pt. Pt states that she has good support in [place] and feels supported. Pt denied any jean history but per H+P, pt does have history of anxiety and depression. Pt denied any concerns at this time. Elizabeth Betancourt MUTUEL MACHINE OPERATOR, RECORDS MANAGEMENT ASSOCIATE
[2018-07-24] MEDS: hydrALAZINE 20 MG/ML Vial 10 MG IV (19:58)
[2018-07-24] MEDS: Gabapentin 300 MG Capsule PO (21:30)
[2018-07-24] MEDS: MELATONIN 3 MG TABLET PO (21:30)
[2018-07-24] MEDS: traMADol 50 MG Tablet PO (22:18)
--- NOTE | 2018-07-24 23:44 | CT_ITS ---
HISTORY: S/P FALL WITH LEFT FOREHEAD HEMATOMA, LEFT RIB PAIN, HX BREAST CA IN PAST, HTN EXAM/TECHNIQUE: CT Head or Brain W/O Contrast: Multiplanar reformats provided. COMPARISON: 11/07/17 CT brain. FINDINGS: # of images incl. paperwork: 245 No evidence of intracranial hemorrhage, hydrocephalus mass, or acute infarct. No skull fracture. Scattered chronic appearing hypodensities in the cerebral white matter. Calcific atherosclerosis of the intracranial arteries. Left frontal scalp hematoma. CT/Brain/Head without Contrast IMPRESSION: No evidence of intracranial injury or skull fracture. Left frontal scalp hematoma. Individualized dose optimization techniques were used for this CT. at 0100 Reported and signed by: Paulie Williamson MD Electronically Signed: Paulie Williamson, at 0:59 EDT Tel , Service support ,
[2018-07-25] VITALS (7 sets, daily range): BP systolic 135–179; BP diastolic 61–73; PULSE 75–87; RESP 18; TEMP 36.6–37.4; O2SAT 87–96
[2018-07-25] MEDS: traMADol 50 MG Tablet PO (03:16)
[2018-07-25] MEDS: hydrALAZINE 20 MG/ML Vial 10 MG IV (03:20)
[2018-07-25 05:36] LABS: Absolute Neutrophil Count 8.7 X10^3/uL (2.0-7.7); Basophil# 0.03 X10^3/uL; Basophil% 0.3 % (0-1); Eosinophil# 0.07 X10^3/uL; Eosinophils% 0.6 % (0-5); Hematocrit 36.1 % (37-47); Lymphocyte % 9.6 % (19-41); Mean Corp Hgb Conc 30.5 g/gl (32-36); Mean Corpuscular Hgb 27.5 pg (27.0-32.0); Mean Corpuscular Volume 90.3 fL (81-99); Mean Platelet Vol. 9.9 fl (6.2-12.0); Monocyte# 1.49 X10^3/uL; Neutrophil # 8.73 X10^3/uL (2.7-7.7); Neutrophil % 76.3 % (47-70); Platelet Count 255 K/mm3 (150-450); RBC Distribution Width CV 14.1 % (11.6-14.6); RBC Distribution Width SD 45.4 fl (35.1-43.9); White Blood Count 11.4 K/mm3 (4.4-11.0)
[2018-07-25 05:44] LABS: POSITIVE COUNT NO; POSITIVE DIFFERENTIAL NO; POSITIVE MORPHOLOGY NO
[2018-07-25 05:54] LABS: Anion Gap 5 (5-15); BUN 16 mg/dL (7-18); Calcium,Total 9.1 mg/dL (8.5-10.1); Chloride 104 mmol/L (98-107); Creatinine, Serum 0.73 mg/dL (0.55-1.02); EST Glomerular Filtration Rate 82 mL/min (>60); Est Glom Filt Rate - Afr Amer 99 mL/min (>60); Estimated Creatinine Clearance 38.35 ml/min; Glucose 128 mg/dL (74-106); Sodium Level 137 mmol/L (136-145)
[2018-07-25] MEDS: Losartan Potassium 50 MG Tablet PO (09:04)
[2018-07-25] MEDS: Neomycin/Bacitracin/Polymyxin Ointment 1 APPLIC TOPICAL (09:04)
[2018-07-25] MEDS: Escitalopram Oxalate 20 MG Tablet PO (09:04)
[2018-07-25] MEDS: Senna/Docusate Sodium 1 Tablet PO (09:04)
[2018-07-25] MEDS: oxyCODONE 5 MG Tablet PO ×3 (09:07→13:34)
--- NOTE | 2018-07-25 11:02 | NURSING ---
DR [facility] NOTIFIED OF HOME O2 QUALIFICATION RESULTS.
--- NOTE | 2018-07-25 11:12 | DCINST_ITS ---
- Discharge Diagnoses Current Active Problems: Current Active and Chronic Problems (Last Reviewed 07/24/18 @ 04:06 by Dwayne Best MD) Intractable pain (Acute) You will use the following diet at home:: Cardiac Your food should be the consistency of: Regular Your liquids should be the consistency of: Regular/Thin Discharge Activity: Return to Normal Activity Weight Bearing Status: Weight bearing as tolerated Call your doctor if you observe: Uncontrolled pain Instructions: When a Patient Falls, Preventing Falls in the Home, Preventing Falls: Are You At Risk of Falling? Additional Instructions: use oxygen prn for shortness of breath Allergies/Adverse Reactions: Allergies atorvastatin [From Lipitor] Allergy (Mild, Verified 07/06/18 14:12) muscle aches lisinopril Allergy (Mild, Verified 07/06/18 14:12) cough rosuvastatin [From Crestor] Allergy (Mild, Verified 07/06/18 14:12) muscle aches alendronate sodium [From Fosamax] Allergy (Unknown, Verified 07/06/18 14:12) unknown Sulfa (Sulfonamide Antibiotics) Allergy (Verified 07/06/18 14:12) Rash acetaminophen [From Tylenol] Adverse Reaction (Verified 07/06/18 14:12) restless legs RESTLESS LEGS codeine Adverse Reaction (Verified 07/06/18 14:12) Nausea Dioargd-Zrt-Jcd Reductase Inhibitor Adverse Reaction (Verified 07/06/18 14:12) Other MUSCLE CRAMPS Medications to take at Discharge Losartan Potassium [Cozaar] 50 mg PO BID 10/08/14 Cholecalciferol (VIT D3) [Vitamin D3] 1,000 unit PO DAILY 06/27/18 Escitalopram Oxalate [Lexapro] 20 mg PO DAILY 06/27/18 Gabapentin [Neurontin] 300 mg PO QHS 06/27/18 Oxycodone [Oxyir] 5 mg PO Q4H PRN PRN 5 Days #20 tab 07/25/18 The following prescriptions were given: Oxycodone [Oxyir] 5 mg PO Q4H PRN PRN 5 Days #20 tab PRN Reason: Moderate Pain (4-6/10) Primary Care Physician: Vikram Segura MD [Primary Care Provider] - Please follow up with your Primary Care Physician in: one week Test Results: Test results from this visit will be discussed in further detail at your follow- up appointment, if applicable. Proposed Discharge Date: 07/25/18
--- NOTE | 2018-07-25 11:13 | DS.PCM_ITS ---
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 No radiographic evidence of acute cardiopulmonary disease. at 0052 Reported and signed by: Paulie Williamson MD Electronically Signed: Paulie Williamson, at 0:51 EDT Tel , Service support , Brain CT 07/24/18 23:44 IMPRESSION: No evidence of intracranial injury or skull fracture. Left frontal scalp hematoma. Individualized dose optimization techniques were used for this CT. at 0100 Reported and signed by: Paulie Williamson MD Electronically Signed: Paulie Williamson at 0:59 EDT Tel , Service support , Operations: None Procedures: None Summary of Care Provided: The patient is a 78 year old F with past medical history as listed. She was admitted with a complaint of a mechanical fall and severe pain on the left side and had after she fell while was walking her dog. Chest x-ray done showed no rib fractures. Brain CT showed no evidence of intracranial pathology but showed left frontal scalp hematoma. She was admitted and managed for intractable pain due to mechanical fall. Pain was controlled by OxyIR and IV morphine as needed. Patient remained stable and was evaluated by physical therapy and deemed as not needing any further therapy. Due to pain, patient was having difficulty taking very deep breaths and on day of admission, she was needing up to 4 L of oxygen and was saturating at 87% on room air both at rest and with ambulation and needed 2L of oxygen to maintain satuartion at 95%. Patient is ambulatory in the home and community usually. Patient was discharged home on 07/25/2018 with an incentive spirometer, and would need oxygen as needed until pain is fully resolved and she is able to take deep breaths as normal. She was given a prescription for OxyIR 5 mg every 4 hours as needed for total of 20 pills. OA RRS was checked and no red flags were seen. She is to follow-up with her primary care doctor in 1 week for prescription for pain medication as needed. Patient seen and examined prior to discharge. She had no complaints and felt well. Pain had improved and was only aggravated by movement and mainly over the left side of her chest. Review of systems otherwise negative. Labs and vitals reviewed. Home medications reviewed and reconciled. o/e: Vital Signs Height 5 ft 3 in Weight: 127 lb 10.362 oz Weight in Pounds 127.6 lbs Pulse Ox [AMBULATION with 96 Oxygen] Pulse Ox [AMBULATING on Room 87 Air] Pulse Ox [At REST on Room Air] 87 Pulse Ox 95 Temperature 98.7 F Pulse Rate 87 Respiratory Rate 18 Blood Pressure 135/61 Blood Pressure Position Semi-Fowlers [] General: Alert, Oriented x3, Cooperative, No apparent distress HEENT: Atraumatic, PERRLA, EOMI, Normocephalic Oral: Moist Mucosa Neck: Supple, No JVD, Negative Carotid Bruits Lungs: Clear to auscultation, Normal air movement, No rhonchi, No wheeze, No rales Cardiovascular: Regular rate, Regular Rhythm, Normal S1, Normal S2, No murmurs Abdomen: Bowel Sounds Present, Soft, Non Tender, Non-Distended, No Hepato- splenomegaly Extremities: No clubbing, No cyanosis, No edema, Capillary Refill Less than 3 Seconds Skin: - - small hematoma over left forehead; superficial resolving bruises over elbows Musculoskeletal: No Tenderness to Palpation of Joints or Extremities Lymphatic: No Cervical, Supraclavicular, or Inguinal Adenopathy Neurological: Cranial nerves II-XII grossly intact, Neuro grossly intact, Motor Exam 5/5 strength throughout Psych/Mental Status: Normal Affect, Appropriate, Alert and oriented to time, place, person, mood and affect Plan is to discharge him today with oxygen as needed which I anticipate she will need for just a few weeks until her pain has resolved and she is able to take deep breaths without pain. To also give incentive spirometer. Patient Problems: Active and Suspected Problems (Last Reviewed 07/24/18 @ 04:06 by Dwayne Best MD) Intractable pain (Acute) - Physical Exam Vital Signs Temp Pulse Resp BP Pulse Ox 98.7 F 87 18 135/61 H 87 07/25/18 08:59 07/25/18 08:59 07/25/18 08:59 07/25/18 08:59 07/25/18 10:59 Oxygen Flow Rate (L/min) [ 2 AMBULATION with Oxygen] Oxygen Flow Rate (L/min) 3 Oxygen Delivery Method Nasal Cannula Weight: 127 lb 10.362 oz Body Mass Index (BMI) 22.6 Intake and Output for Last 24 Hours 07/23/18 07/24/18 07/25/18 23:59 23:59 23:59 Intake Total 1490 / 1490 500 / 500 Balance 1490 / 1490 500 / 500 Laboratory Tests Past 24 Hrs 07/25/18 07/25/18 05:20 05:20 WBC 11.4 H RBC 4.00 L Hgb 11.0 L Hct 36.1 L MCV 90.3 MCH 27.5 MCHC 30.5 L RDW 14.1 RDW Differential 45.4 H Plt Count 255 MPV 9.9 Immature Gran % (Auto) 0.200 Neut % (Auto) 76.3 H Lymph % (Auto) 9.[address] [place] % (Auto) 13.0 H Eos % (Auto) 0.6 Baso % (Auto) 0.3 Absolute Neuts (auto) 8.7 H Absolute Lymphs (auto) 1.10 Total Counted Not Reportable Sodium 137 Potassium 4.0 Chloride 104 Carbon Dioxide 28.0 Anion Gap 5 BUN 16 Creatinine 0.73 Estim Creat Clear Calc 38.35 Est GFR (MDRD) Af Amer 99 Est GFR (MDRD) Non-Af 82 BUN/Creatinine Ratio 22.0 H Glucose 128 H Calcium 9.1 Discharge Diet: Low fat/ Low Cholesterol Discharge Activity: Return to Normal Activity, Use Walker Weight Bearing Status: Weight bearing as tolerated Call your doctor if you observe: Uncontrolled pain Home Medications: Medications to take at Discharge Losartan Potassium [Cozaar] 50 mg PO BID 10/08/14 Cholecalciferol (VIT D3) [Vitamin D3] 1,000 unit PO DAILY 06/27/18 Escitalopram Oxalate [Lexapro] 20 mg PO DAILY 06/27/18 Gabapentin [Neurontin] 300 mg PO QHS 06/27/18 Oxycodone [Oxyir] 5 mg PO Q4H PRN PRN 5 Days #20 tab 07/25/18 Following Prescrptions Were Given to Patient: Oxycodone [Oxyir] 5 mg PO Q4H PRN PRN 5 Days #20 tab PRN Reason: Moderate Pain (4-6/10) Primary Care Physician: Vikram Segura MD [Primary Care Provider] - Please follow up with your Primary Care Physician in: one week Patient Instructions: When a Patient Falls, Preventing Falls in the Home, Preventing Falls: Are You At Risk of Falling? Disposition: Home Minutes spent on discharge:: 40 Patient Condition:: Stable Medical Necessity - Tobacco Use Smoking Status: Former smoker Meaningful Use Info Meaningful Use Diagnoses (Choose all that apply): None applicable Code Visit Inpatient E&M: 44685 Disch Hosp
--- NOTE | 2018-07-25 11:45 | CASEMGMT ---
ANNIE GAUTHIER received update that patient qualifies for home oxygen. ANNIE GAUTHIER received script. Patient would like home oxygen setup with [facility], [facility] preferred provider. ANNIE GAUTHIER sent referral to [facility] and arranged for portable oxygen to be delivered to patient's room prior to discharge.
== END 2018-07-25 16:09 | disposition home or self-care (01) ==
LOC: ED 07-24 03:55 → MS3 07-24 04:22
PROVIDERS: Admitting Provider Hospitalist; Emergency Provider Emergency Medicine; Family Provider Family Medicine; PCP Family Medicine; Visit Provider Student in an Organized Health Care Education/Training Program
DX: S00.83XA Contusion of other part of head, initial encounter (principal); S20.212A Contusion of left front wall of thorax, initial encounter; W18.39XA Other fall on same level, initial encounter; Y93.K1 Activity, walking an animal; Y92.9 Unspecified place or not applicable; E03.9 Hypothyroidism, unspecified; I10 Essential (primary) hypertension; Z79.899 Other long term (current) drug therapy; F41.9 Anxiety disorder, unspecified; F32.9 Major depressive disorder, single episode, unspecified; M19.90 Unspecified osteoarthritis, unspecified site; Z85.3 Personal history of malignant neoplasm of breast; E55.9 Vitamin D deficiency, unspecified; G62.9 Polyneuropathy, unspecified; Z87.891 Personal history of nicotine dependence; D72.829 Elevated white blood cell count, unspecified
CPT/HCPCS: 36415; 70450; 71046; 80048; 85025; 96374; 96375; 96376; 97116; 97162; 97166; 97530; 99218; 99285; A4216; G0378; J2405

== ENCOUNTER 2018-07-28 03:36 | Emergency (ER) | payer MEDICARE, SELFPAY ==
[2018-07-24 05:00] VITALS: BMI 22.6
[2018-07-28 03:37] VITALS: BP 266/86; PULSE 84; RESP 20; TEMP 36.8; O2SAT 88; BMI 23.6
[2018-07-28 03:40] VITALS: O2SAT 95
--- NOTE | 2018-07-28 03:52 | ED.VIS.GEN ---
History of Present Illness Chief Complaint: Chest Other Informant: Patient Narrative: She stated she had difficulty getting out of bed today due to rib pain. She fell a few days ago and was admitted after mechanical fall. She had a scalp contusion and injury to her left ribs. X-rays were negative for fracture. She is using OxyContin with good relief of pain. Today she woke up and had worsening pain and her was having difficulty getting her up out of bed. He did call the ambulance for lift assist who brought her in for further evaluation. Patient stated she had a decent day yesterday as long as she takes her pain medication. She is on home oxygen as it is helping her supplement due to her inability to take deep breath secondary to her rib contusion. - Past Medical History (1) Acute blood loss anemia Status: Acute (2) Fall Status: Acute (3) GI bleed Status: Acute (4) Inferior pubic ramus fracture Status: Acute (5) Intractable pain Status: Acute (6) Microcalcification of right breast on mammogram Status: Acute (7) Syncope and collapse Status: Acute (8) Anxiety and depression Status: Chronic (9) DCIS (ductal carcinoma in situ) of breast Status: Chronic (10) HTN (hypertension) Status: Chronic (11) History of hysterectomy Status: Chronic (12) Hypothyroidism Status: Chronic (13) Osteoarthritis Status: Chronic Past Medical History - Allergies and Home Meds Allergies/Adverse Reactions: Allergies atorvastatin [From Lipitor] Allergy (Mild, Verified 07/28/18 03:40) muscle aches lisinopril Allergy (Mild, Verified 07/28/18 03:40) cough rosuvastatin [From Crestor] Allergy (Mild, Verified 07/28/18 03:40) muscle aches alendronate sodium [From Fosamax] Allergy (Unknown, Verified 07/28/18 03:40) unknown Sulfa (Sulfonamide Antibiotics) Allergy (Verified 07/28/18 03:40) Rash acetaminophen [From Tylenol] Adverse Reaction (Verified 07/28/18 03:40) restless legs RESTLESS LEGS codeine Adverse Reaction (Verified 07/28/18 03:40) Nausea Bkchhrr-Fat-Grw Reductase Inhibitor Adverse Reaction (Verified 07/28/18 03:40) Other MUSCLE CRAMPS Primary Care Physician: Vikram Segura MD [Primary Care Provider] - Prior records reviewed: Yes Surgical History: - - R breast ductal carcinoma lumpectomy, recent to current presentation R breast lump Bx, right total hip replacement, thyroid nodule resection, hysterectomy. Lives: Spouse/ Significant Other, With Family Smoking Status: Former smoker Alcohol: None Drugs: None - Family History Sibling Family History: Family History (Last Reviewed 07/24/18 @ 04:06 by Dwayne Best MD) Mother Heart disease CVA (cerebral vascular accident) Father Heart disease Family History: Reports: Asthma - Brother Maternal Family History: Family History (Last Reviewed 07/24/18 @ 04:06 by Dwayne Best MD) Mother Heart disease CVA (cerebral vascular accident) Father Heart disease Family History: Reports: Heart Disease, Stroke Paternal Family History: Family History (Last Reviewed 07/24/18 @ 04:06 by Dwayne eBst MD) Mother Heart disease CVA (cerebral vascular accident) Father Heart disease Family History: Reports: Heart Disease Review of Systems General: Denies: Chills, Fever, Sweats Eyes: Denies: Visual changes - bilaterally, Diplopia ENT: Denies: Rhinorrhea, Sore throat Cardiovascular: Reports: - - Left rib pain. Denies: Chest pain, Palpitations Respiratory: Denies: Dyspnea, Cough, Dyspnea on exertion Gastrointestinal: Denies: Abdominal pain, Nausea, Vomiting, Diarrhea, Melena, Hematochezia Genitourinary: Denies: Dysuria, Hematuria, Frequency Musculoskeletal: Denies: Back pain, Extremity Pain Skin: Denies: Rash, Wounds Neurological: Denies: Headache, Weakness, Numbness Physical Exam Vital Signs/Narrative: Vital Signs Temp Pulse Resp BP Pulse Ox 07/28/18 03:40 95 07/28/18 03:37 98.3 F 84 20 H 266/86 H 88 General: Well nourished, Well developed, No Acute Distress Head: Normocephalic, Atraumatic Eyes: Perrl, EOMI ENT: Moist mucous membranes, No rhinorrhea Neck: Supple, Nontender Cardiovascular: Regular rate, Regular rhythm, No murmurs Respiratory: No distress, CTA bilaterally, - - Mild tenderness left lateral rib cage without swelling or deformity or bruising or step-off. Negative for: Chest nontender Abdomen: Soft, Nontender, Nondistended, Normal bowel sounds Back: Nontender, Normal Inspection Extremities: Nontender, No edema Skin: No rash, - - Old healing bruise to the left temporal scalp.. Negative for: Normal color Neurological: Alert, Oriented x3, Cranial nerves II-XII grossly intact, Normal Strength, Normal Sensation Psychological: Normal affect, Normal Mood Diagnostic/Tx/Re-eval - Medical Decision Making Patient given injection of morphine. At this time I think she just bruised her ribs. She has had difficulty getting out of bed today secondary to the pain in her ribs. Patient was able to ambulate in the emergency department with the assistance of a walker as well as the staff. She was able to get out of bed after the morphine. At this time I feel she can continue taking the OxyContin. I do not think she needs to be admitted to the hospital and placed at this time. She will continue her course at home. I do not feel she needs repeat lab work or imaging. This is just a pain issue. ED Disposition - Plan for ED Patient: Disposition: Home or Assisted Living Instructions: ED Contusion Rib Referrals: Vikram Segura MD [Primary Care Provider] -
[2018-07-28] MEDS: Morphine 4 MG/ML Syringe IM (04:05)
--- NOTE | 2018-07-28 04:52 | ED.RN ---
PT ATTEMPTED TO CALL HER . NO ANSWER. PT GAVE RN PERMISSION TO CALL . USED CONTACT NUMBER, SPOUSE ANSWERED ON SECOND RING AND WILL COME PICK HER UP, IT WILL TAKE ABOUT 30 MIN.
[2018-07-28 05:09] VITALS: BP 194/81
== END 2018-07-28 05:34 | disposition home or self-care (01) ==
PROVIDERS: Emergency Provider Emergency Medicine; Family Provider Family Medicine; PCP Family Medicine
DX: S20.212A Contusion of left front wall of thorax, initial encounter (principal); W19.XXXA Unspecified fall, initial encounter; Y93.9 Activity, unspecified; Y92.9 Unspecified place or not applicable; Y99.9 Unspecified external cause status; I10 Essential (primary) hypertension; E03.9 Hypothyroidism, unspecified; M19.90 Unspecified osteoarthritis, unspecified site; F32.9 Major depressive disorder, single episode, unspecified; F41.9 Anxiety disorder, unspecified; Z99.81 Dependence on supplemental oxygen; Z79.899 Other long term (current) drug therapy; Z90.710 Acquired absence of both cervix and uterus; Z85.3 Personal history of malignant neoplasm of breast; Z87.19 Personal history of other diseases of the digestive system; Z86.2 Personal history of diseases of the blood and blood-forming organs and certain disorders involving the immune mechanism; Z87.891 Personal history of nicotine dependence
CPT/HCPCS: 96372; 99285

== ENCOUNTER 2018-07-31 06:35 | Emergency (ER) | payer MEDICARE, SELFPAY ==
[2018-07-31 06:37] VITALS: BP 169/68; PULSE 94; RESP 20; TEMP 36.9; O2SAT 92; BMI 22.4
[2018-07-31 06:43] VITALS: RESP 20
--- NOTE | 2018-07-31 07:07 | CT_ITS ---
STUDY: CT CHEST WITHOUT CONTRAST REASON FOR EXAM: Female, 78 years old. Chest pain, worsening shortness of breath. History of breast cancer with right mastectomy. RADIATION DOSAGE (If Supplied By Facility): CTDIvol = ( 7.86 ) mGy, DLP = ( 280.93 ) mGycm TECHNIQUE: Transaxial imaging was performed without the administration of intravenous contrast material. Individualized dose optimization techniques were used for this CT. COMPARISON: CT chest 07/05/2018. FINDINGS: The left thyroid lobe is enlarged, heterogeneous and nodular with extension into the superior mediastinum There is marked atelectasis of the underlying left lung. There is mild centrilobular emphysema. There is mild atelectasis or scarring right posterior costophrenic angle There is a large left pleural effusion and hemothorax with a large amount of mixed density fluid and blood products. Normal heart and pericardium. There are moderate to marked coronary artery calcifications. Normal mediastinum. Normal hilar regions. Normal unenhanced pulmonary arteries. There is dense atherosclerotic calcification of the aortic arch and descending thoracic aorta. There are acute displaced left lateral 5th-7th rib fractures. There are acute nondisplaced left posterior 6th-11th rib fractures. There is atherosclerotic disease of the abdominal aorta and its branches. CT/Chest without Contrast IMPRESSION: Acute displaced left lateral 5th-7th rib fractures. There are acute nondisplaced left posterior 6th-11th rib fractures. There is a large left pleural effusion and hemothorax with a large amount of mixed density fluid and blood products. There is near complete atelectasis of the left lung. Heterogeneously enlarged left thyroid lobe. Thyroid ultrasound can be obtained for further characterization. Electronically Signed: Caroline Long, at 9:29 EDT Tel , Service support ,
[2018-07-31] MEDS: Ondansetron 4 MG/2 ML Vial IV (07:12)
--- NOTE | 2018-07-31 07:12 | ED.VISSUMM ---
- ER Visit Summary Date of Service: 07/31/18 Chief Complaint: Pain History of Present Illness: The patient is a 78 F who fell little over week ago. She had a negative head CT due to left forehead hematoma was negative for intracranial hemorrhage. Chest x-ray showed no pneumo or obvious rib fractures. Patient was admitted into the hospital. Physical therapy was consulted. Patient was discharged home on home oxygen and pain medication. She returned to the emergency department several days later was that he be able to ambulate in the department. Patient states that since arriving home she continues to have pain. She states that she has been able to shower and feed herself. Nothing happened differently during the night other than she continues to have pain. She is requesting admission to a rehab facility. Physical Examination: Afebrile vital signs are stable Gen: Well-nourished well-developed Head: Normocephalic atraumatic Eyes: Perrl EOMI ENT: TMs clear no rhinorrhea moist mucous membranes Neck: Supple no lymphadenopathy no JVD nontender CVS: Regular rate rhythm no murmurs normal S1-S2 Respiratory: No distress absent lung sounds on left chest. No crepitance. Chest is tender to palpation particularly on the left Abdomen: Soft diffusely tender out of proportion to exam nondistended normal bowel sounds no masses Extremity: No deformities. Moves all extremities. No edema Skin: Normal color no rash Neuro: alert orientated ?3 CN II-XII intact normal strength sensation reflexes Psych: Intermittently cries out in pain is redirectable and can speak normally. Test Results: Hemoglobin 8.9. Normal coags. CT the chest demonstrates large hemothorax and multiple displaced rib fractures. Emergency Department Course and Treatment: IV was established and the patient received morphine and Zofran. I discussed the results of her testing at the bedside with the family. Patient was also discussed with MICU here. It is our collective agreement that patient should be transferred to tertiary care center. I am reluctant to put a chest tube in given the different shades of blood on the CT had a concern for making an active hemorrhage worse and uncontrollable. The patient has been accepted to [facility] by Dr. Garcia. Impression: 1. Multiple closed left-sided rib fractures 2. Left hemothorax This note was generated with [employer] software. It may contain incorrect words, spelling, and punctuation that were not noted in review of the chart prior to signing ED Disposition - Plan for ED Patient: Referrals: Vikram Segura MD [Primary Care Provider] -
[2018-07-31] MEDS: Morphine 4 MG/ML Syringe IV (07:13)
[2018-07-31 07:17] LABS: Absolute Lymphocyte Count 0.86 X10^3/ul (0.83-4.51); Absolute Neutrophil Count 9.4 X10^3/uL (2.0-7.7); Basophil# 0.04 X10^3/uL; Basophil% 0.3 % (0-1); Eosinophil# 0.01 X10^3/uL; Eosinophils% 0.1 % (0-5); Hematocrit 28.2 % (37-47); Hemoglobin 8.9 g/dl (12.0-15.0); Lymphocyte # 0.86 X10^3/ul (4.0); Lymphocyte % 7.3 % (19-41); Mean Corp Hgb Conc 31.6 g/gl (32-36); Mean Corpuscular Hgb 27.1 pg (27.0-32.0); Mean Platelet Vol. 9.6 fl (6.2-12.0); Monocyte% 12.7 % (0-10); Neutrophil % 79.4 % (47-70); Platelet Count 403 K/mm3 (150-450); RBC Distribution Width CV 14.2 % (11.6-14.6); RBC Distribution Width SD 45.1 fl (35.1-43.9); Red Blood Count 3.28 M/mm3 (4.2-5.4); White Blood Count 11.8 K/mm3 (4.4-11.0)
[2018-07-31 07:25] LABS: ALB/GLOB Ratio 0.8 RATIO (0.9-2.4); AST(SGOT) 18 U/L (15-37); Alanine Aminotransfer ALT/SGPT 20 U/L (13-56); Albumin, Serum 2.9 g/dL (3.2-5.0); Alkaline Phosphatase 73 U/L (45-117); Anion Gap 3 (5-15); BUN 21 mg/dL (7-18); BUN/Creat Ratio 31.7 RATIO (10-20); Calcium,Total 8.8 mg/dL (8.5-10.1); Chloride 103 mmol/L (98-107); Creatinine, Serum 0.66 mg/dL (0.55-1.02); EST Glomerular Filtration Rate 92 mL/min (>60); Est Glom Filt Rate - Afr Amer 111 mL/min (>60); Estimated Creatinine Clearance 38.35 ml/min; Globulin 3.7 g/dL (2.2-4.2); Glucose 135 mg/dL (74-106); Potassium 4.1 mmol/L (3.5-5.1); Protein, Total 6.6 g/dL (6.4-8.2); Sodium Level 136 mmol/L (136-145)
[2018-07-31 07:31] LABS: POSITIVE COUNT NO; POSITIVE DIFFERENTIAL NO; POSITIVE MORPHOLOGY NO
[2018-07-31 08:05] LABS: International Normalized Ratio 1.1; Prothrombin Time (Protime)PT. 14.4 SECONDS (11.7-14.9)
[2018-07-31 08:43] VITALS: BP 162/60; PULSE 87; RESP 7; O2SAT 93
[2018-07-31] MEDS: Morphine 2 MG/ML Syringe IV (09:00)
[2018-07-31 09:04] VITALS: BP 138/74; PULSE 88; RESP 17; O2SAT 93
== END 2018-07-31 09:27 | disposition short-term general hospital (02) ==
PROVIDERS: Emergency Provider Emergency Medicine; Family Provider Family Medicine; PCP Family Medicine
DX: S27.1XXA Traumatic hemothorax, initial encounter (principal); S22.42XA Multiple fractures of ribs, left side, initial encounter for closed fracture; W19.XXXA Unspecified fall, initial encounter; Y93.9 Activity, unspecified; Y92.9 Unspecified place or not applicable; I10 Essential (primary) hypertension; Z79.899 Other long term (current) drug therapy; Z87.891 Personal history of nicotine dependence
CPT/HCPCS: 71250; 80053; 85025; 85610; 85730; 96374; 96375; 96376; 99285; A4216; J2405

== ENCOUNTER → 2018-09-05 13:28 | Outpatient (CLI) | payer MEDICARE, SELFPAY ==
[2018-09-05 15:54] LABS: Absolute Lymphocyte Count 1.03 X10^3/ul (0.83-4.51); Absolute Neutrophil Count 4.7 X10^3/uL (2.0-7.7); Basophil# 0.05 X10^3/uL; Basophil% 0.7 % (0-1); Eosinophil# 0.25 X10^3/uL; Eosinophils% 3.6 % (0-5); Hematocrit 36.1 % (37-47); Hemoglobin 10.7 g/dl (12.0-15.0); Lymphocyte # 1.03 X10^3/ul (4.0); Mean Corp Hgb Conc 29.6 g/gl (32-36); Mean Corpuscular Hgb 25.5 pg (27.0-32.0); Mean Corpuscular Volume 86.2 fL (81-99); Mean Platelet Vol. 10.3 fl (6.2-12.0); Monocyte% 11.6 % (0-10); Neutrophil # 4.73 X10^3/uL (2.7-7.7); Neutrophil % 68.8 % (47-70); Platelet Count 425 K/mm3 (150-450); RBC Distribution Width CV 15.6 % (11.6-14.6); RBC Distribution Width SD 48.5 fl (35.1-43.9); Red Blood Count 4.19 M/mm3 (4.2-5.4); White Blood Count 6.9 K/mm3 (4.4-11.0)
[2018-09-05 15:59] LABS: POSITIVE COUNT NO; POSITIVE DIFFERENTIAL NO; POSITIVE MORPHOLOGY NO
[2018-09-05 16:21] LABS: Vitamin B12 553 pg/mL (211-911)
[2018-09-05 16:23] LABS: ALB/GLOB Ratio 0.8 RATIO (0.9-2.4); AST(SGOT) 17 U/L (15-37); Alanine Aminotransfer ALT/SGPT 18 U/L (13-56); Albumin, Serum 3.4 g/dL (3.2-5.0); Alkaline Phosphatase 97 U/L (45-117); Anion Gap 9 (5-15); BUN 10 mg/dL (7-18); BUN/Creat Ratio 12.3 RATIO (10-20); Chloride 108 mmol/L (98-107); Creatinine, Serum 0.82 mg/dL (0.55-1.02); EST Glomerular Filtration Rate 72 mL/min (>60); Est Glom Filt Rate - Afr Amer 87 mL/min (>60); Ferritin 51 ng/mL (8-252); Globulin 4.1 g/dL (2.2-4.2); Glucose 121 mg/dL (74-106); Iron 26 ug/dL (50-170); Potassium 3.5 mmol/L (3.5-5.1); Protein, Total 7.5 g/dL (6.4-8.2); Sodium Level 143 mmol/L (136-145)
== END ==
PROVIDERS: Family Provider Family Medicine; PCP Family Medicine; Referring Provider Family Medicine; Visit Provider Family Medicine
DX: D64.9 Anemia, unspecified (principal)
CPT/HCPCS: 36415; 80053; 82607; 82728; 83540; 85025

== ENCOUNTER → 2018-09-13 12:09 | Outpatient (CLI) | payer MEDICARE, SELFPAY ==
[2018-09-06 13:29] VITALS: BMI 22.4
--- NOTE | 2018-09-13 12:12 | RAD_ITS ---
STUDY: X-RAY CHEST REASON FOR EXAM: Female, 78 years old. Shortness of breath TECHNIQUE: PA and lateral views of the chest. COMPARISON: 07/24/2018 FINDINGS: The lungs are clear and expanded. There is no demonstrated pleural abnormality. Normal size heart. Normal mediastinum and musa. Normal visualized pulmonary arteries. Normal visualized aortic arch and descending thoracic aorta. Normal visualized thoracic spine. Healing left-sided rib fractures. There is no demonstrated abnormality of the visualized soft tissue structures of the upper abdomen. RAD/Chest PA and Lateral IMPRESSION: No acute findings. Healing left-sided rib fractures. Electronically Signed: Altaf Cook DO at 10:24 EDT Tel , Service support ,
== END ==
PROVIDERS: Family Provider Family Medicine; PCP Family Medicine; Referring Provider Family Medicine; Visit Provider Family Medicine
DX: R06.02 Shortness of breath (principal)
CPT/HCPCS: 71046

== ENCOUNTER 2018-11-08 07:23 | Day surgery (SDC) | payer MEDICARE, SELFPAY ==
--- NOTE | 2018-10-18 01:31 | HP_ITS ---
Intake Vital Signs 10/18/18 Body Mass Index (BMI) 22.4 Intake Visit Reasons: 4 WK F/U Discuss Excisional Breast BX Chief Complaint: discuss excisional bx [employer] Required: No Is patient in pain?: Yes Allergies atorvastatin [From Lipitor] Allergy (Mild, Verified 10/18/18 12:57) muscle aches lisinopril Allergy (Mild, Verified 10/18/18 12:57) cough rosuvastatin [From Crestor] Allergy (Mild, Verified 10/18/18 12:57) muscle aches alendronate sodium [From Fosamax] Allergy (Unknown, Verified 10/18/18 12:57) unknown Sulfa (Sulfonamide Antibiotics) Allergy (Verified 10/18/18 12:57) Rash acetaminophen [From Tylenol] Adverse Reaction (Verified 10/18/18 12:57) restless legs codeine Adverse Reaction (Verified 10/18/18 12:57) Nausea Thyvzbb-Eut-Rli Reductase Inhibitor Adverse Reaction (Verified 10/18/18 12:57) Other Medications Losartan Potassium [Cozaar] 50 mg PO BID 10/08/14 [History Confirmed 10/18/18] Cholecalciferol (VIT D3) [Vitamin D3] 1,000 unit PO DAILY 06/27/18 [History Confirmed 10/18/18] Escitalopram Oxalate [Lexapro] 20 mg PO BID 06/27/18 [History Confirmed 10/18/18] Gabapentin [Neurontin] 300 mg PO QHS 06/27/18 [History Confirmed 10/18/18] Is last menstrual period known: No Post menopausal: Yes [facility] : [facility] Medical History Fall (Acute) Inferior pubic ramus fracture (Acute) HTN (hypertension) (Chronic) Hypothyroidism (Chronic) Arthritis (Acute) Diverticulosis (Acute) 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) Hypercholesterolemia (Acute) Vitamin D deficiency (Acute) Surgical History History of hysterectomy (Chronic) History of left mastoidectomy (Acute) History of lumpectomy of right breast (Acute) History of right hip replacement (Acute) History of thyroid surgery (Acute) Family History Mother Heart disease CVA (cerebral vascular accident) Father Heart disease Social History (Updated 10/18/18 @ 13:32 by Cricket Javier MD) Smoking Status: Former smoker alcohol intake: current alcohol intake frequency: a few times a month substance use type: does not use HPI HPI HPI: XAVIER RAHMAN, is a 78 F who presents to the office today for HPI HPI Surgical H&P: Yes HPI: XAVIER RAHMAN, is a 78 F who presents to the office today for from a right stereotactic breast biopsy. Patient underwent a right stereotactic breast biopsy on 06/22/2018. She was noted to have adenosis with focal mild cytologic atypia. She did not undergo an excisional biopsy at that time secondary to bruising and following back up with her she has had a rather complicated spring and early summer with falls numerous emergency room visits. She is now ready to have a wire localization excisional right breast biopsy. ROS Breast Breast: No nipple discharge Exam HENMT Head: normal to inspection, normocephalic, atraumatic Mouth: oropharynx normal, moist mucous membranes Eyes General: appearance normal, both eyes and all related structures Sclera: sclerae normal Neck Neck: trachea midline, no lymphadenopathy noted Neck mass: No Thyroid: thyroid normal Lymphatic: no lymphadenopathy noted Chest Breast inspection: normal inspection of the breasts Breast Palpation: Yes normal palpation of the breasts, No breast mass, No nipple discharge, No change in skin Other: Biopsy site is visualized on the lateral aspect of the right breast. No bruising is identified Resp Other: Respiratory Exam: Deferred Cardio Other: Cardiac Exam: Deferred GI Other: GI Exam: Deferred Other: Rectal Exam: Deferred Extrem Other: Extremity Exam: Deferred Assessment & Plan Problems 1. Microcalcification of right breast on mammography R92.0 Plan I have discussed above with the patient. I have recommended a stereotactic wire localization right excisional breast biopsy. I have described the procedure to the patient. I have discussed with the patient that sometimes the ultrasound lesion may be artifact and is user dependent and therefore prior to undergoing the procedure, the patient will have a definitive US to ensure that the lesion is truly present and is not artifact. A marker clip will be placed to identify the location. Patient has been counseled to the risks/benefits of the procedure. I have explained the risks of the surgery, including but not limited to: infection, bleeding, injury to any blood vessels/nerves, scar tissue, missing the lesion, further surgery, etc. - the patient understands and agrees to proceed. I have answered all of the patient's questions to her satisfaction and she has no further questions. Coding Level of Care Code Off vis,est,level 3 Diagnoses Microcalcification of right breast on mammography R92.0 10/18/18 1332 <Electronically signed by Cricket sparks MD> Date _ Cricket Javier MD I have re-examined the patient. There are no clinical changes since date of exam.
[2018-10-18 12:57] VITALS: BMI 22.4
--- NOTE | 2018-11-08 | IMM_PTH ---
PATIENT: XAVIER RAHMAN LOC: [facility] [place] U#:[id number] AGE/SX: 78/F ROOM: RE11/08/[address]: Dr. Cricket Javier MD : 1940 BED: DIS: 11/08/2018 SPEC #: [id number] RECD: 11/10/18 13:48 STATUS: JAYLENE REQ #: [id number] XOCHILT: 11/08/18 00:[address]: Cricket Javier DEPT: IMMUNOHISTOCHEMISTRY RECD BY: Devika Jerez ENTERED: 11/10/18 13:52 SP TYPE: IMMUNO OTHR DR: Dr. Vikram Segura MD Tissues: Right breast, NOS Procedures: CALPONIN-1 (add) CK5-6 (add) CK8 (add) E-CAD (add) HER2 TAHIRA (add) KI-67 (add) P53 (add) ME (add) Pankeratin (add) P40 (add) ER (initial) PHYSICIAN & [address] [address] SPECIMEN INFORMATION: Tissue Source: Right breast biopsy Clinical Info: Microcalcification of right breast Specimen Number: [id number] #1, 3 & 5 CPT code: 45347, 99510 x17, 25654 x3 METHODOLOGY: Deparaffinized sections of prefer/formalin-fixed tissue or PAP/DQ stained slides are incubated with monoclonal/polyclonal antibodies/oligonucleotide probes. Localization is made via biotin free immunoperoxidase method. Appropriate controls are performed and reacted as expected. Results on target cell population are indicated in the following table: RESULTS: ANTIBODY / CLONE RESULT Block 1 AE1-3 (AE1/AE3/PCK26) positive CK8 (57rwydU12) positive E-Cad (ECH-6) negative Block 3 E-Cad (ECH-6) positive, focal AE1-3 (AE1/AE3/PCK26) positive CK7 (OV-TL12/30) positive Gata3 (L50-823) positive CK8 (25xlhlD65) positive CK5-6 (D5 & 1684) positive * Ki-67 (30-9) positive, low P53 (DO-7) negative P40 (BC28) negative * Calponin-1 (WV899C) negative * MORPHOMETRIC ANALYSIS ER (clone 6F11) 40%, weak intensity ME (clone 16/1E2) 27%, weak intensity Her-2Neu (clone CB11) 1+ Block 5 E-Cad (ECH-6) positive AE1-3 (AE1/AE3/PCK26) positive CK8 (57gxjlN82) positive Calponin-1 (IB139Q) negative * P40 (BC28) negative * *?Positive in the area of ductal carcinoma in situ. The prognostic test for HER2 is performed on formalin-fixed paraffin embedded tissue. A 3+ (positive) staining pattern is defined as intense, homogeneous, complete, circumferential membranous staining in >10% of contiguous tumor cells. A similar weak (2+) staining pattern is interpreted as equivocal. HIEU follow-up testing is recommended for all equivocal cases. Positivity/negativity for ER/ME is reported if > or < 1% of the tumor cells are immuno- reactive, respectively. The ASCO/CAP criteria is used for scoring. Reference: Journal of Clinical Oncology, 2013; 31:1867-0402 & 2010; 16:7784-6285. Duration of fixation: 9.5 Hrs; Sample Adequate: Yes. These assays have not been validated on decalcified tissues. Results should be interpreted with caution given the likelihood of false negativity on decalcified specimens. These tests were developed and their performance characteristics determined by [facility]. They may not have been cleared or approved by the U.S. Food and Drug Administration. The FDA has determined that such clearance or approval is not necessary. 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 Ductal carcinoma in situ. Positive for estrogen receptors (favorable prognostic indicator). Positive for progesterone receptors (favorable prognostic indicator). Negative for overexpression of RFD8ere. This case has been reviewed in consultation with Dr. Rodriguez who concurs with the above diagnosis. SJ:idania 11/13/18
[2018-11-08 07:30] VITALS: BP 189/80; PULSE 58; RESP 16; TEMP 36.3; O2SAT 100; BMI 20.9
--- NOTE | 2018-11-08 08:26 | BI_ITS ---
SURGICAL BREAST SPECIMEN RADIOGRAPH CLINICAL: Document presence of tissue clip marker in biopsy specimen. FINDINGS: Specimen shows presence of tissue clip marker. Pathology is pending and an addendum to the biopsy report will be performed after the final pathologic diagnosis is rendered. Electronically Signed: Андрей Cooper MD at 10:41 EDT , Service support , BI/Breast Biopsy Specimen
[2018-11-08] MEDS: Cefazolin 2 GM in 0.9% Normal Saline 100 ML IV (09:26)
--- NOTE | 2018-11-08 09:34 | PCM.OPRPT ---
Problem List (1) Microcalcification of right breast on mammogram Status: Acute Report of Operation Date of Procedure: 11/08/18 Pre-Operative Diagnosis: Microcalcifications of the right breast with cytological atypia Post-Operative Diagnosis: Same Surgery/Procedure Performed:: Wire localization excisional right breast biopsy Type of Anesthesia:: General Anesthesiologist: Vikram Mason Specimen's removed: Right breast lesion Estimated Blood Loss (mL): < 25 cc Description of Procedure: Patient was brought into the mammography unit. Placed in the supine position on the fissure table. The right breast was brought down through the opening. A lateral to medial view was obtained. ?15 degrees views were obtained. I targeted on the clip that was left behind. I prepped the breast with Betadine. I injected 1% lidocaine plain. I placed the Kopan's wire approximately a centimeter and a half past the clip. Sterile dressings were applied. The patient tolerated the procedure well. Patient was subsequently brought into the operating room. Placed in the supine position. Under excellent general endotracheal intubation. The right breast was sterilely prepped and draped in usual fashion incision in the lateral aspect of the breast was then performed a lifting around the previous biopsy site. I dissected down using the guidewires my guide coming around the lesion. I marked the lesion with a single long inferior double long superior wire comes out lateral X-ray of the specimen revealed the clip in question. Electrocautery was used for good hemostasis. Deep wound was brought together with 2-0 Vicryl deep dermis with 3-0 Vicryl in a running 4-0 Monocryl. Dermabond was applied sterile dressings were applied and the patient tolerated the procedure well. - Admit VTE Documentation VTE Present on Admission: No VTE Mechan Device Prophylaxis: SCD's VTE Pharm Prophylaxis ordered?: No Reason prophylaxis not ordered:: Treatment Not Indicated
--- NOTE | 2018-11-08 09:36 | DCINST_ITS ---
Discharge Diet: No Restrictions Discharge Activity: Return to Normal Activity May shower in (days): 3 Remove Dressing in (days):: 3 - Leave Dermabond in place. Allergies/Adverse Reactions: Allergies atorvastatin [From Lipitor] Allergy (Mild, Verified 11/02/18 11:43) muscle aches lisinopril Allergy (Mild, Verified 11/02/18 11:43) cough rosuvastatin [From Crestor] Allergy (Mild, Verified 11/02/18 11:43) muscle aches alendronate sodium [From Fosamax] Allergy (Unknown, Verified 11/02/18 11:43) unknown Sulfa (Sulfonamide Antibiotics) Allergy (Verified 11/02/18 11:43) Rash acetaminophen [From Tylenol] Adverse Reaction (Verified 11/02/18 11:43) restless legs RESTLESS LEGS codeine Adverse Reaction (Verified 11/02/18 11:43) Nausea NSAIDS (Non-Steroidal Anti-Inflamma Adverse Reaction (Verified 11/02/18 12:14) Bleeding Zvgsvri-Kfk-Vlz Reductase Inhibitor Adverse Reaction (Verified 11/02/18 11:43) Other MUSCLE CRAMPS Medications to take at Discharge Losartan Potassium [Cozaar] 50 mg PO BID 10/08/14 Escitalopram Oxalate [Lexapro] 20 mg PO DAILY 06/27/18 Gabapentin [Neurontin] 600 mg PO QHS 06/27/18 Albuterol Inhaler [Ventolin Hfa (SP)] 2 puff INHALATION Q4H PRN PRN 11/02/18 HYDROmorphone tablet [Dilaudid] 2 mg PO Q6H PRN PRN 11/02/18 Mv-Mn/Folic Acid/Calcium/Vit K [Women's 50 Plus Multivit Tab] 1 ea PO BID 11/02/18 Pantoprazole Sodium [Protonix] 40 mg PO BID 11/02/18 Pramipexole Di-HCl [Pramipexole Dihydrochloride] 2 tab PO QHS 11/02/18 Oxycodone HCl/Acetaminophen [Percocet 5/325] 1 - 2 tablet PO Q4H PRN PRN 6 Days #30 tablet 11/08/18 Oxycodone [Oxyir] 10 mg PO Q6H PRN PRN 6 Days #15 tab 11/08/18 The following prescriptions were given: Oxycodone [Oxyir] 10 mg PO Q6H PRN PRN 6 Days #15 tab PRN Reason: Pain Prescription Printed Oxycodone HCl/Acetaminophen [Percocet 5/325] 1 - 2 tablet PO Q4H PRN PRN 6 Days #30 tablet PRN Reason: Pain Primary Care Physician: Vikram Segura MD [Primary Care Provider] - Test Results: Test results from this visit will be discussed in further detail at your follow- up appointment, if applicable. Please Follow Up With: Cricket Javier MD - [phone] When: Please call for an appointment to be seen in one week.
--- NOTE | 2018-11-08 10:00 | BRBX_PTH ---
PATIENT: XAVIER RAHMAN LOC: [facility] – [place] U#:[id number] AGE/SX: 78/F ROOM: RE11/08/[address]: Dr. Cricket Javier MD : 1940 BED: DIS: 11/08/2018 SPEC #: [id number] RECD: 11/08/18 10:10 STATUS: JAYLENE KING #: [id number] XOCHILT: 11/08/18 10:[address]: Cricket Javier DEPT: SURGICAL PATHOLOGY RECD BY: Helder Florez ENTERED: 11/08/18 11:18 SP TYPE: BREAST BX OTHR DR: Dr. Vikram Segura MD Tissues: Right breast, NOS Procedures: Surgery Specimen Level V HEADER OPERATION: Stereotactic wire localization, excisional breast biopsy PRE-OP DIAGNOSIS: Microcalcification of right breast on mammography TISSUE SUBMITTED: Right breast biopsy, single long stitch - inferior, double long stitch - superior, wire - lateral MICROSCOPIC DIAGNOSIS Right breast, excisional biopsy with needle localization: Invasive ductal carcinoma. Ductal carcinoma in situ. Focal atypical lobular hyperplasia. See cancer summary below. SJ:idania 11/13/18 INVASIVE BREAST CANCER SUMMARY: Specimen - partial breast Procedure - excision with wire-guided localization Lymph node sampling - no lymph node present. Specimen integrity - single intact specimen Specimen size - 4.5 x 4 x 2 cm Specimen laterality - right Tumor site - not specified Tumor size - 0.8 x 0.6 cm (measured microscopically) Tumor focality - single focus of invasive carcinoma Macroscopic and Microscopic extent of tumor: Skin - invasive carcinoma does not invade into the dermis or epidermis. Nipple - not applicable Skeletal muscle - no skeletal muscle present. Ductal carcinoma in situ (DCIS) - DCIS is present. Extensive intraductal component (EIC) - positive Estimated size (extent) of DCIS - DCIS comprise about 40% of the total tumor volume. 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 See comment Histologic Grade ([place] grade): Glandular/tubular differentiation - score 3 Nuclear pleomorphism - score 3 Mitotic count - score 1 Overall grade - 2 (score of 7) Margins - Margins uninvolved by invasive carcinoma and ductal carcinoma in situ. Invasive carcinoma and ductal carcinoma in situ are 0.2 cm away from the closest anterior margin. Treatment effect: Response to presurgical (neoadjuvant) therapy - no known presurgical therapy. Lymph-Vascular invasion - not identified Dermal lymph-vascular invasion - not identified Lymph nodes - no lymph nodes present. Distant metastasis - not applicable Additional pathologic findings - intraductal hyperplasia without atypia. - Focal adenosis with atypia. - Focal atypical lobular hyperplasia. See comment. - Extensive hyalinization adjacent to the invasive carcinoma and ductal carcinoma in situ. - Changes consistent with previous biopsy site. - Dermal fibrosis, consistent with scar. Ancillary studies - [id number] ER - positive (40%, weak intensity) MD - positive (27%, weak intensity) Her2 ron - negative (1+) Microcalcifications - present in ductal carcinoma in situ and non-neoplastic tissue. Clinical history - Please make reference to previous specimen ([id number]) right breast, stereotactic core biopsy with diagnosis of adenosis with focal mild cytologic atypia. PATHOLOGIC STAGE: pT1b pNx Mx The above summary is in compliance with [employer] (CAP) Cancer Protocols Checklist and [place] [employer] Committee on Cancer (AJCC), Staging Manual, 8th Ed. COMMENT Immunohistochemistry ([id number]) supports the above diagnosis. Case has been reviewed in consultation with Dr. Rodriguez who concurs with the above diagnosis. IDC:AM MICROSCOPIC DESCRIPTION Slides are reviewed. GROSS DESCRIPTION Received fresh and postfixed in formalin is one container labeled with the patient's name and designated right breast biopsy. The specimen consists of a piece of fibroadipose tissue with needle localization measuring 4.5 x 4 x 2 cm. A piece of skin is noted at lateral margin measuring 0.5 x 0.1 cm. The specimen is oriented as follows: double long - superior, single long - inferior, wire - lateral. The specimen is inked as follows: anterior - yellow, posterior - black, superior - blue, inferior - green, medial - red and lateral - orange. The specimen is serially sectioned and reveals a biopsy cavity with surrounding rodriguez, indurated fibrous area. No obvious mass lesion is identified. The entire specimen is submitted in 11 cassettes from medial to lateral margin. Cassette 1 contains the medial margin, cassette 11 contains the lateral margin. / RM:idania 11/09/18 TC:0 CPT: 09350
[2018-11-08] MEDS: Bupivacaine Mpf 0.5% 30 ML VIAL (10:10)
[2018-11-08 10:20] VITALS: BP 173/64; BP 189/80; PULSE 91; RESP 16; TEMP 36.3; O2SAT 96
[2018-11-08 10:30] VITALS: BP 159/61; BP 189/80; PULSE 84; RESP 18; O2SAT 100
[2018-11-08 10:45] VITALS: BP 185/68; BP 189/80; PULSE 83; RESP 16; O2SAT 97
[2018-11-08 10:53] VITALS: BP 148/75; BP 189/80; PULSE 83; RESP 16; TEMP 36.4; O2SAT 96
[2018-11-08 11:19] VITALS: BP 165/68; BP 189/80; PULSE 84; RESP 16; TEMP 36.9; O2SAT 93
== END 2018-11-08 11:24 | disposition home or self-care (01) ==
LOC: SDC 07:24 → AC 07:24
PROVIDERS: Family Provider Family Medicine; PCP Family Medicine; Referring Provider Surgery; Visit Provider Surgery
PROC: (CPT 19125; principal; 2018-11-08 09:15)
DX: C50.911 Malignant neoplasm of unspecified site of right female breast (principal); N60.91 Unspecified benign mammary dysplasia of right breast; N60.31 Fibrosclerosis of right breast; I10 Essential (primary) hypertension; E78.00 Pure hypercholesterolemia, unspecified; E03.9 Hypothyroidism, unspecified; M19.90 Unspecified osteoarthritis, unspecified site; E55.9 Vitamin D deficiency, unspecified; Z79.899 Other long term (current) drug therapy; Z78.0 Asymptomatic menopausal state; Z88.2 Allergy status to sulfonamides; Z88.6 Allergy status to analgesic agent; Z88.5 Allergy status to narcotic agent; Z88.8 Allergy status to other drugs, medicaments and biological substances; Z87.891 Personal history of nicotine dependence; Z96.641 Presence of right artificial hip joint
CPT/HCPCS: 19125; 19281; 76098; 88305; 88307; 88341; 88342; J7120; A4216; J2405

== ENCOUNTER → 2018-11-23 09:03 | Outpatient (CLI) | payer MEDICARE, SELFPAY ==
[2018-11-15 13:47] VITALS: BMI 20.9
--- NOTE | 2018-11-23 09:05 | CT_ITS ---
STUDY: CT CHEST WITHOUT CONTRAST REASON FOR EXAM: Female, 78 years old. Breast cancer. Radiation treatment planning. Right lumpectomy. RADIATION DOSAGE (If Supplied By Facility): CTDIvol = ( 14.83 ) mGy, DLP = ( 545.05 ) mGycm TECHNIQUE: Transaxial imaging was performed without the administration of intravenous contrast material. The study was performed for radiation treatment planning. Individualized dose optimization techniques were used for this CT. COMPARISON: CTA of the chest, July 05, 2018. FINDINGS: No focal mass or infiltrate is seen within the lungs. There is no demonstrated pleural abnormality. The heart appears mildly enlarged with coronary artery calcifications. Normal mediastinum. Normal hilar regions. Normal unenhanced pulmonary arteries. There is diffuse atherosclerotic changes of the aortic arch and descending aorta without evidence of aneurysm. There are mild degenerative changes of the thoracic spine. There is no evidence of fracture or destructive osseous pathology. The soft tissue structures of the chest wall demonstrate a small fluid density mass in the right breast thought to be the site of lumpectomy. There is no evidence of axillary lymphadenopathy. Normal visualized upper abdomen. There is no demonstrated abnormality of the visualized upper abdomen. CT/Chest without Contrast IMPRESSION: 1. Fluid density mass in the right breast onto be the site of prior lumpectomy. 2. Atherosclerotic changes of the coronary arteries and thoracic aorta. 3. Mild degenerative changes of the thoracic spine. Electronically Signed: Melchor Mills DO at 17:06 EDT Tel [phone], Service support ,
== END ==
PROVIDERS: Family Provider Family Medicine; PCP Family Medicine; Referring Provider Radiology Radiation Oncology; Visit Provider Radiology Radiation Oncology
DX: C50.411 Malignant neoplasm of upper-outer quadrant of right female breast (principal)
CPT/HCPCS: 71250

== ENCOUNTER → 2018-12-08 09:58 | Outpatient (CLI) | payer MEDICARE, SELFPAY ==
[2018-11-15 13:47] VITALS: BMI 20.9
[2018-12-08 12:38] LABS: Absolute Lymphocyte Count 1.05 X10^3/uL (0.83-4.51); Absolute Neutrophil Count 5.2 X10^3/uL (2.0-7.7); Basophil# 0.08 X10^3/uL; Eosinophil# 0.31 X10^3/uL; Eosinophils% 4.1 % (0-5); Hematocrit 33.6 % (37-47); Hemoglobin 9.4 g/dL (12.0-15.0); Lymphocyte # 1.05 X10^3/ul (4.0); Lymphocyte % 13.8 % (19-41); Mean Corpuscular Hgb 20.9 pg (27.0-32.0); Mean Corpuscular Volume 74.8 fL (81-99); Mean Platelet Vol. 11.2 fl (6.2-12.0); Monocyte# 0.95 X10^3/uL; Monocyte% 12.5 % (0-10); NRBC Flagged by Analyzer 0 % (0-5); Neutrophil # 5.22 X10^3/uL (2.7-7.7); Neutrophil % 68.3 % (47-70); Platelet Count 299 K/mm3 (150-450); RBC Distribution Width CV 17.7 % (11.6-14.6); Red Blood Count 4.49 M/mm3 (4.2-5.4); White Blood Count 7.6 K/mm3 (4.4-11.0)
== END ==
PROVIDERS: Family Provider Family Medicine; PCP Family Medicine; Referring Provider Radiology Radiation Oncology; Visit Provider Radiology Radiation Oncology
DX: C50.919 Malignant neoplasm of unspecified site of unspecified female breast (principal)
CPT/HCPCS: 36415; 85025

== ENCOUNTER → 2019-03-08 15:35 | Outpatient (CLI) | payer MEDICARE, SELFPAY ==
[2018-11-15 13:47] VITALS: BMI 20.9
--- NOTE | 2019-03-08 15:37 | RAD_ITS ---
STUDY: X-RAY CHEST REASON FOR EXAM: Female, 78 years old. Shortness of breath. TECHNIQUE: PA and lateral views of the chest. COMPARISON: 09/13/2018. FINDINGS: The lungs are clear and expanded. There is no demonstrated pleural abnormality. Normal size heart. Normal mediastinum and musa. Normal visualized pulmonary arteries. There is atherosclerotic calcification of the aortic arch with tortuosity. There is demineralization of the osseous structures. There is degenerative osteoarthritis of the bilateral shoulders. There are several old left-sided rib fractures, stable in the interval. There is no demonstrated abnormality of the visualized soft tissue structures of the upper abdomen. RAD/Chest PA and Lateral IMPRESSION: No acute cardiopulmonary disease. Electronically Signed: Francine Singh MD at 2:15 EST , Service support ,
== END ==
PROVIDERS: Family Provider Family Medicine; PCP Family Medicine; Referring Provider Family Medicine; Visit Provider Family Medicine
DX: R06.02 Shortness of breath (principal)
CPT/HCPCS: 71046

== ENCOUNTER → 2019-03-16 13:24 | Outpatient (CLI) | payer MEDICARE, SELFPAY ==
[2018-11-15 13:47] VITALS: BMI 20.9
[2019-03-16 15:02] LABS: Absolute Lymphocyte Count 1.11 X10^3/uL (0.83-4.51); Absolute Neutrophil Count 6.5 X10^3/uL (2.0-7.7); Basophil# 0.07 X10^3/uL; Basophil% 0.8 % (0-1); Eosinophil# 0.14 X10^3/uL; Eosinophils% 1.6 % (0-5); Hematocrit 38.2 % (37-47); Hemoglobin 11.1 g/dL (12.0-15.0); Lymphocyte # 1.11 X10^3/ul (4.0); Lymphocyte % 12.8 % (19-41); Mean Corp Hgb Conc 29.1 g/dL (32-36); Mean Corpuscular Hgb 22.9 pg (27.0-32.0); Mean Corpuscular Volume 78.8 fL (81-99); Mean Platelet Vol. 11.1 fl (6.2-12.0); Monocyte# 0.83 X10^3/uL; Monocyte% 9.6 % (0-10); NRBC Flagged by Analyzer 0 % (0-5); Neutrophil # 6.47 X10^3/uL (2.7-7.7); Neutrophil % 74.7 % (47-70); Platelet Count 333 K/mm3 (150-450); RBC Distribution Width CV 18.7 % (11.6-14.6); Red Blood Count 4.85 M/mm3 (4.2-5.4); White Blood Count 8.7 K/mm3 (4.4-11.0)
[2019-03-16 15:10] LABS: Anion Gap 7 (5-15); BUN 14 mg/dL (7-18); BUN/Creat Ratio 17.2 RATIO (10-20); Calcium,Total 9.1 mg/dL (8.5-10.1); Chloride 108 mmol/L (98-107); Creatinine, Serum 0.82 mg/dL (0.55-1.02); EST Glomerular Filtration Rate 72 mL/min (>60); Est Glom Filt Rate - Afr Amer 87 mL/min (>60); Glucose 138 mg/dL (74-106); Potassium 3.8 mmol/L (3.5-5.1); Sodium Level 140 mmol/L (136-145)
[2019-03-16 16:07] LABS: BNP,B-Type NATRIURETIC PEPTIDE 239.8 pg/mL (0-100)
== END ==
PROVIDERS: Family Provider Family Medicine; PCP Family Medicine; Referring Provider Family Medicine; Visit Provider Family Medicine
DX: R42 Dizziness and giddiness (principal); R06.01 Orthopnea
CPT/HCPCS: 36415; 80048; 83880; 85025

== ENCOUNTER 2019-03-16 14:05 | Emergency (ER) | payer MEDICARE, SELFPAY ==
[2018-11-15 13:47] VITALS: BMI 20.9
[2019-03-16 14:06] VITALS: BP 168/95; PULSE 66; RESP 16; TEMP 36.3; O2SAT 99; BMI 21.4
--- NOTE | 2019-03-16 15:27 | CT_ITS ---
STUDY: CTA CHEST REASON FOR EXAM: Female, 78 years old. Dyspnea and dizziness RADIATION DOSAGE (If Supplied By Facility): CTDIvol = ( 6.12 ) mGy, DLP = ( 156.62 ) mGycm TECHNIQUE: The examination was performed with the intravenous administration of IV Isovue 370 100. Post-processing of the angiographic images was performed, with multiplanar reformation and 3D reconstruction. Individualized dose optimization techniques were used for this CT. COMPARISON: None. FINDINGS: Normal enhancement of the main pulmonary artery and right and left pulmonary arteries. Normal enhancement of the bilateral peripheral pulmonary arteries. There is no demonstrated pulmonary embolism. Normal thoracic aorta and visualized great vessels. There is no demonstrated aortic dissection. Normal heart and pericardium. Normal mediastinum. Normal hilar regions. Normal visualized trachea and bronchi. The lungs are hyper expanded, with flattening of the hemidiaphragms. Moderate emphysematous changes throughout the lungs. No acute airspace disease. Normal pleura. No suspicious masses or nodules. Calcified right lung base nodule. Normal chest wall structures. There are degenerative changes of thoracic spine. Normal visualized upper abdomen. CT/CTA Chest W/WO Contrast IMPRESSION: Normal CTA chest examination, without a demonstrated pulmonary embolism or arterial dissection. COPD with emphysema. No acute airspace disease. Electronically Signed: Altaf Cook DO at 16:34 EST Tel , Service support ,
--- NOTE | 2019-03-16 15:27 | CT_ITS ---
STUDY: CT BRAIN WITHOUT CONTRAST REASON FOR EXAM: Female, 78 years old. Dizziness RADIATION DOSAGE (If Supplied By Facility): CTDIvol = ( 44.99 ) mGy, DLP = ( 745.49 ) mGycm TECHNIQUE: Transaxial CT imaging of the brain was performed without administration of intravenous contrast material. Individualized dose optimization techniques were used for this CT. COMPARISON: No relevant priors. FINDINGS: Normal soft tissue structures. Normal calvarium. There is mild cerebral atrophy with widening of the extra-axial spaces and ventricular dilatation. There are areas of decreased attenuation within the white matter tracts of the supratentorial brain, consistent with microvascular disease changes. Normal basal ganglia and thalami. Normal brainstem. Normal cerebellum. There is no intracranial hemorrhage. There are no findings of an acute ischemic infarction. Normal visualized paranasal sinuses. CT/Brain/Head without Contrast IMPRESSION: Chronic involutional changes of the brain. Electronically Signed: Altaf Cook DO at 16:31 EST Tel , Service support ,
--- NOTE | 2019-03-16 15:29 | EKG12_ITS ---
Test Reason : DYSRHYTHMIA Blood Pressure : / mmHG Vent. Rate : 057 BPM Atrial Rate : 057 BPM P-R Int : 144 ms QRS Dur : 084 ms QT Int : 470 ms P-R-T Axes : 026 012 049 degrees QTc Int : 457 ms Sinus bradycardia Nonspecific ST and T wave abnormality Abnormal ECG Confirmed by ANNETTE BOONE, ZACH ([id number]), newspaper managing editor CARLEY PEREZ ([id number]) on 03/19/2019 11:34:21 AM Referred By: Héctor Sheikh Confirmed By:ZACH BRYANT MD
--- NOTE | 2019-03-16 15:43 | ED.VISSUMM ---
- ER Visit Summary Date of Service: 03/16/19 Chief Complaint: Dyspnea History of Present Illness: The patient is a 78 F who tells me for the past several days she does not feel that she can take a deep breath. She tells me this is only at night but then tells me she is currently experiencing she notes a productive cough as well as some clear rhinorrhea. She tells me she went to her doctor today. Sent her over for a CT of her chest. However the doctor to call the listed a head CT was noted she had a normal neurologic exam registration has her down for a head CT. She tells me that she is not dizzy that she is lightheaded. That has been intermittent well she denies any arm or leg symptoms. No fevers. She states that she had a chest x-ray recently that was negative. Is also scheduled for sleep study to work-up this problem but no evidence of Rubina but she does not want to do it because her deductible will not be paid up. Her tells me that the symptoms of actually been going on for long time since she broke ribs and had a hemothorax. She however denies this. Physical Examination: Afebrile vital signs are stable Gen: Well-nourished well-developed Head: Normocephalic atraumatic Eyes: Perrl EOMI ENT: TMs clear no rhinorrhea moist mucous membranes Neck: Supple no lymphadenopathy no JVD nontender CVS: Regular rate rhythm no murmurs normal S1-S2 Respiratory: No distress clear to auscultation bilaterally chest nontender Abdomen: Soft nontender nondistended normal bowel sounds no masses Back: Nontender Extremity: Nontender no edema Skin: Normal color no rash Neuro: alert orientated ?3 CN II-XII intact normal strength sensation reflexes gait cerebellar Psych: Normal affect normal mood Test Results: Prehospital blood work obtained CBC and chemistries which were negative. I added on a troponin and EKG. these were normal. Also obtained a CT of the brain and CTA of the chest. These were both negative for acute findings Emergency Department Course and Treatment: Patient had no events on the monitor. Her blood work CTs were negative. Pulse ox is 98% and she is on labored breathing. Impression: 1. Dyspnea This note was generated with [employer] software. It may contain incorrect words, spelling, and punctuation that were not noted in review of the chart prior to signing ED Disposition - Plan for ED Patient: Disposition: Home or Assisted Living Instructions: ED Dyspnea Referrals: Vikram Segura MD [Primary Care Provider] - Keep Genny appointment
[2019-03-16 17:01] VITALS: RESP 18
== END 2019-03-16 17:04 | disposition home or self-care (01) ==
PROVIDERS: Emergency Provider Emergency Medicine; Family Provider Family Medicine; PCP Family Medicine
DX: R06.00 Dyspnea, unspecified (principal); R42 Dizziness and giddiness; I10 Essential (primary) hypertension; Z79.899 Other long term (current) drug therapy; Z87.891 Personal history of nicotine dependence
CPT/HCPCS: 36415; 70450; 71275; 80048; 83880; 84484; 85025; 93005; 99283; Q9967; A4216

== ENCOUNTER → 2019-04-20 14:16 | Outpatient (CLI) | payer MEDICARE, SELFPAY ==
[2019-04-20 15:32] LABS: Hemoglobin 10.3 g/dL (12.0-15.0); Mean Corp Hgb Conc 28.6 g/dL (32-36); Mean Corpuscular Hgb 22.2 pg (27.0-32.0); Mean Corpuscular Volume 77.4 fL (81-99); Mean Platelet Vol. 10.1 fl (6.2-12.0); Platelet Count 369 K/mm3 (150-450); RBC Distribution Width CV 16.7 % (11.6-14.6); RBC Distribution Width SD 46.7 fl (35.1-43.9); Red Blood Count 4.65 M/mm3 (4.2-5.4); White Blood Count 6.6 K/mm3 (4.4-11.0)
[2019-04-20 16:05] LABS: Free T3 2.4 pg/mL (2.18-3.98); Magnesium 2.3 mg/dL (1.6-2.6)
[2019-04-20 16:11] LABS: BNP,B-Type NATRIURETIC PEPTIDE 275.8 pg/mL (0-100)
== END ==
PROVIDERS: Family Provider Family Medicine; PCP Family Medicine; Referring Provider Family Medicine; Visit Provider Family Medicine
DX: R06.00 Dyspnea, unspecified (principal); E03.9 Hypothyroidism, unspecified; I50.30 Unspecified diastolic (congestive) heart failure
CPT/HCPCS: 36415; 83735; 83880; 84439; 84443; 84481; 85027

== ENCOUNTER → 2019-05-23 | Outpatient (CLI) | payer MEDICARE, SELFPAY ==
--- NOTE | 2019-05-23 | LES_PTH ---
PATIENT: XAVIER RAHMAN LOC: [facility] U#:[id number] AGE/SX: 78/F ROOM: RE05/23/[address]: Dr. Vikram Segura MD : 1940 BED: DIS: 05/23/2019 SPEC #: [id number] RECD: 05/23/19 17:41 STATUS: JAYLENE FERNANDO #: [id number] XOCHILT: 05/23/19 00:[address]: Vikram Segura DEPT: SURGICAL PATHOLOGY RECD BY: Mark Anthony Stern Tissues: Skin of leg, NOS Procedures: Surgery Specimen Level IV HEADER OPERATION: Shave biopsy PRE-OP DIAGNOSIS: Atypical nevus TISSUE SUBMITTED: Right leg 1.3 x 1 x 1 cm MICROSCOPIC DIAGNOSIS Right leg lesion, shave biopsy: Consistent with inflamed verrucous keratosis. Negative for malignancy. See comment. RM:idania 05/25/19 COMMENT Correlation with clinical findings and appropriate follow up are necessary. Case has been reviewed in consultation with Dr. Rodriguez who concurs with the above diagnosis. IDC:AM MICROSCOPIC DESCRIPTION Slides are reviewed. GROSS DESCRIPTION Received is one container labeled with the patient's name and not further designated. The specimen consists of a piece of rodriguez-white skin measuring 1 x 1.2 cm and up to 0.3 cm in thickness. The specimen is inked, serially sectioned and submitted entirely in one cassette. / SJ:rg 05/24/19 TC:5 CPT: 50764
== END | disposition home or self-care (01) ==
PROVIDERS: PCP Family Medicine; Referring Provider Family Medicine; Visit Provider Family Medicine
DX: D22.71 Melanocytic nevi of right lower limb, including hip (principal)
CPT/HCPCS: 88305

== ENCOUNTER → 2019-06-29 08:35 | Outpatient (CLI) | payer MEDICARE, SELFPAY ==
[2019-06-29 10:04] LABS: Absolute Lymphocyte Count 0.89 X10^3/uL (0.83-4.51); Absolute Neutrophil Count 3.3 X10^3/uL (2.0-7.7); Basophil# 0.06 X10^3/uL; Basophil% 1.2 % (0-1); Eosinophil# 0.18 X10^3/uL; Eosinophils% 3.5 % (0-5); Hematocrit 42.5 % (37-47); Hemoglobin 13.1 g/dL (12.0-15.0); Lymphocyte # 0.89 X10^3/ul (4.0); Lymphocyte % 17.2 % (19-41); Mean Corp Hgb Conc 30.8 g/dL (32-36); Mean Corpuscular Hgb 26.5 pg (27.0-32.0); Mean Platelet Vol. 10.7 fl (6.2-12.0); Monocyte# 0.69 X10^3/uL; Monocyte% 13.3 % (0-10); NRBC Flagged by Analyzer 0 % (0-5); Neutrophil # 3.33 X10^3/uL (2.7-7.7); Neutrophil % 64.4 % (47-70); POSITIVE MORPHOLOGY YES; Platelet Count 226 K/mm3 (150-450); RBC Distribution Width SD 65.3 fl (35.1-43.9); Red Blood Count 4.94 M/mm3 (4.2-5.4); White Blood Count 5.2 K/mm3 (4.4-11.0)
[2019-06-29 10:07] LABS: Differential Indicated SCAN CRITERIA MET
[2019-06-29 10:27] LABS: AST(SGOT) 15 U/L (15-37); Alanine Aminotransfer ALT/SGPT 18 U/L (13-56); Albumin, Serum 3.7 g/dL (3.2-5.0); Alkaline Phosphatase 93 U/L (45-117); Anion Gap 2 (5-15); BUN 12 mg/dL (7-18); BUN/Creat Ratio 17.2 RATIO (10-20); Chloride 108 mmol/L (98-107); Cholesterol 225 mg/dL (200); EST Glomerular Filtration Rate 86 mL/min (>60); Est Glom Filt Rate - Afr Amer 104 mL/min (>60); Ferritin 35 ng/mL (8-252); Globulin 3.7 g/dL (2.2-4.2); Glucose 96 mg/dL (74-106); High Density Lipoprotein 47 mg/dL; Potassium 3.4 mmol/L (3.5-5.1); Protein, Total 7.4 g/dL (6.4-8.2); Sodium Level 140 mmol/L (136-145); Thyroid Stim Hormone (TSH) 1.86 uIU/mL (0.358-3.74); Triglycerides 334 mg/dL; Very Low Density Lipoprotein 67 mg/dL (5-40)
[2019-06-29 10:37] LABS: Anisocytosis 1+
[2019-06-29 11:38] LABS: Microalbumin:Creatinine Ratio 569.4 mg/g CRE (<30 mg/g CRE)
[2019-06-30 08:24] LABS: Vitamin D,25 Hydroxy 33.2 ng/mL
== END ==
PROVIDERS: PCP Family Medicine; Referring Provider Family Medicine; Visit Provider Family Medicine
DX: D64.9 Anemia, unspecified (principal); E78.00 Pure hypercholesterolemia, unspecified; I10 Essential (primary) hypertension; E03.9 Hypothyroidism, unspecified; E55.9 Vitamin D deficiency, unspecified
CPT/HCPCS: 36415; 80053; 80061; 82043; 82306; 82570; 82728; 84443; 85025

== ENCOUNTER → 2019-10-03 15:55 | Outpatient (CLI) | payer MEDICARE, SELFPAY ==
[2019-10-03 19:09] LABS: ALB/GLOB Ratio 0.9 RATIO (0.9-2.4); AST(SGOT) 13 U/L (15-37); Alanine Aminotransfer ALT/SGPT 18 U/L (13-56); Albumin, Serum 3.6 g/dL (3.2-5.0); Alkaline Phosphatase 98 U/L (45-117); Anion Gap 7 (5-15); BUN 15 mg/dL (7-18); Calcium,Total 9.2 mg/dL (8.5-10.1); Chloride 107 mmol/L (98-107); Cholesterol 225 mg/dL (200); Creatinine, Serum 0.88 mg/dL (0.55-1.02); EST Glomerular Filtration Rate 66 mL/min (>60); Est Glom Filt Rate - Afr Amer 79 mL/min (>60); Free T3 2.9 pg/mL (2.18-3.98); Globulin 3.8 g/dL (2.2-4.2); Glucose 101 mg/dL (74-106); High Density Lipoprotein 34 mg/dL; Potassium 3.3 mmol/L (3.5-5.1); Protein, Total 7.4 g/dL (6.4-8.2); Sodium Level 140 mmol/L (136-145); T4 Free Direct 0.97 ng/dL (0.76-1.46); Thyroid Stim Hormone (TSH) 1.56 uIU/mL (0.358-3.74); Triglycerides 534 mg/dL
== END ==
PROVIDERS: PCP Family Medicine; Visit Provider Family Medicine
DX: Z00.00 Encounter for general adult medical examination without abnormal findings (principal); I10 Essential (primary) hypertension; E03.9 Hypothyroidism, unspecified
CPT/HCPCS: 36415; 80053; 80061; 84439; 84443; 84481

== ENCOUNTER → 2019-11-02 10:53 | Outpatient (CLI) | payer MEDICARE, SELFPAY ==
--- NOTE | 2019-11-02 10:55 | BI_ITS ---
MAMMOGRAPHY - BILATERAL SCREENING REASON FOR EXAM: Female, 79 years old. Routine annual screening examination. PERTINENT HISTORY: Personal history of breast cancer. Prior right lumpectomy and radiation treatment. On post breast cancer. TECHNIQUE: Digital bilateral breast milady (3D mammographic acquisition) in the CC and MLO projections. 2-D mediolateral oblique (MLO) and craniocaudad (CC) views of both breasts were obtained. CAD: Full Field Digital Mammography with Computer Added Detection was performed. COMPARISON: Comparison is made with prior examination dated May 24, 2018 and March 19, 2017. FINDINGS: Breast Composition: The breasts are heterogeneously dense, which may obscure small masses. There are no dominant masses or suspicious calcifications. Since prior study, the patient underwent lumpectomy of the calcifications in the upper outer aspect of the right breast. There is evidence of a postoperative breast deformity along the lateral aspect of the breast skin thickening. No other significant abnormalities are identified. BI/SCREEN MAMM (CAD) W/MILADY BILAT IMPRESSION: Status post right lumpectomy with resection of the calcifications. Yearly follow-up mammogram recommended. (A) ASSESSMENT CATEGORY: BIRADS Category 2: Benign. A letter regarding these results will be sent to the patient by the facility within 30 days. Approximately 10% of breast cancers are not detected by mammography. A normal mammogram should not delay biopsy of a clinically suspicious abnormality. [id number] Electronically Signed: Willard Flaherty, at 13:11 EDT , Service support ,
== END ==
PROVIDERS: PCP Family Medicine; Referring Provider Family Medicine; Visit Provider Family Medicine
DX: Z12.31 Encounter for screening mammogram for malignant neoplasm of breast (principal); Z85.3 Personal history of malignant neoplasm of breast
CPT/HCPCS: 77063; 77067

== ENCOUNTER → 2019-11-06 15:26 | Outpatient (CLI) | payer MEDICARE, SELFPAY ==
--- NOTE | 2019-11-06 15:28 | RAD_ITS ---
STUDY: X-RAY - PARANASAL SINUSES REASON FOR EXAM: Female, 79 years old. Sinus congestion TECHNIQUE: 3 view(s) of the paranasal sinuses were obtained. COMPARISON: None. FINDINGS: Normal visualized frontal, maxillary, ethmoidal and sphenoid sinuses. Normal visualized facial bones. The soft tissue structures are unremarkable. RAD/Sinuses min 3 Views IMPRESSION: Normal x-rays of the paranasal sinuses. Electronically Signed: Андрей Cooper MD at 8:29 EDT , Service support ,
== END ==
PROVIDERS: PCP Family Medicine; Referring Provider Family Medicine; Visit Provider Family Medicine
DX: R09.81 Nasal congestion (principal)
CPT/HCPCS: 70220

== ENCOUNTER 2019-11-26 09:46 | Inpatient (IN) | payer MEDICARE, SELFPAY ==
[2019-11-26] VITALS (21 sets, daily range): BP systolic 138–243; BP diastolic 63–98; PULSE 55–77; RESP 14–18; TEMP 36.6–37.2; O2SAT 95–98; BMI 20.9; BMI 22.0
--- NOTE | 2019-11-26 09:54 | CT_ITS ---
STUDY: CT BRAIN WITHOUT CONTRAST REASON FOR EXAM: Female, 79 years old. PT STATED ALTERED BALANCE X 2 DAYS RADIATION DOSAGE (If Supplied By Facility): CTDIvol = ( 44.99 ) mGy, DLP = ( 779.24 ) mGycm TECHNIQUE: Transaxial CT imaging of the brain was performed without administration of intravenous contrast material. Individualized dose optimization techniques were used for this CT. COMPARISON: Comparison is made with prior examination dated 03/16/2019. FINDINGS: Normal soft tissue structures. Normal calvarium. There is mild cerebral atrophy with widening of the extra-axial spaces and ventricular dilatation. There are areas of decreased attenuation within the white matter tracts of the supratentorial brain, consistent with microvascular disease changes. Old lacunar infarcts in the insular cortices of both temporal lobes. Normal basal ganglia and thalami. Normal brainstem. Normal cerebellum. There is no intracranial hemorrhage. There are no findings of an acute ischemic infarction. Normal visualized paranasal sinuses. CT/Brain/Head without Contrast IMPRESSION: Chronic involutional changes of the brain. Electronically Signed: Willard Flaherty, at 10:59 EDT , Service support ,
--- NOTE | 2019-11-26 09:54 | EKG12_ITS ---
Test Reason : NEURO Blood Pressure : / mmHG Vent. Rate : 062 BPM Atrial Rate : 062 BPM P-R Int : 144 ms QRS Dur : 088 ms QT Int : 466 ms P-R-T Axes : 033 006 183 degrees QTc Int : 472 ms Sinus rhythm with occasional Premature ventricular complexes Left ventricular hypertrophy Nonspecific ST/T Wave Abnormality: Consider LVH Repolarization; Myocardia Ischemia; Metabolic Effect ; Medication Effect Abnormal ECG Confirmed by CLIFF BOONE, MICAELA ([id number]), editor magazine MIKKI BENNETT ([id number]) on 11/28/2019 1:28:24 PM Referred By: FABIOLA Confirmed By:MICAELA CORONADO MD
--- NOTE | 2019-11-26 09:55 | ED.DCSUM_ITS ---
History of Present Illness Chief Complaint: Neuro S/Sx Informant: Patient Onset: Today - Per son altered speech this morning and problems with balance. Patient denies problems with speech. did not noted altered speech., Month(s) - Months problems with balance Context: Sudden Onset Timing: Intermittent Quality and Location: Difficulty with Ambulation Onset: Intermittently for months. Most recent episode this morning Current Severity: Gone Maximum Severity: Moderate Worsened by: Nothing Relieved by: Nothing Associated Symptoms: Negative for: Headache, Nausea, Vomiting, Chest Pain Narrative: Patient is a 79-year-old woman with history of hypertension. She states she did not take her blood pressure meds this morning. She states upon awakening she had problems with her balance. She has had problems with her balance for sever al months. She does have history of hypertension. She denies double vision, blurred vision loss of vision. She denies trouble with her speech or swallowing. did not feel her speech was altered. She does not believe her speech is altered. She presently has no problems with balance. She denies cardiac or respiratory symptoms. She denies GI symptoms. She denies black or maroon stool. She denies urologic symptoms. She denies history of diabetes. When arrived at [facility] asked about speech. He states she has had problems with speech for days. Was slightly worse this morning. She has outside window for TPA or retrieval. 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 (4) HTN (hypertension) Status: Chronic (5) History of hysterectomy Status: Chronic (6) Hypothyroidism Status: Chronic (7) Osteoarthritis Status: Chronic Past Medical History - Allergies and Home Meds Allergies/Adverse Reactions: Allergies atorvastatin [From Lipitor] Allergy (Mild, Verified 11/26/19 09:56) muscle aches lisinopril Allergy (Mild, Verified 11/26/19 09:56) cough rosuvastatin [From Crestor] Allergy (Mild, Verified 11/26/19 09:56) muscle aches alendronate sodium [From Fosamax] Allergy (Unknown, Verified 11/26/19 09:56) unknown Sulfa (Sulfonamide Antibiotics) Allergy (Verified 11/26/19 09:56) Rash acetaminophen [From Tylenol] Adverse Reaction (Verified 11/26/19 09:56) restless legs RESTLESS LEGS codeine Adverse Reaction (Verified 11/26/19 09:56) Nausea NSAIDS (Non-Steroidal Anti-Inflamma Adverse Reaction (Verified 11/26/19 09:56) Bleeding Dwqrujd-Tvh-Mul Reductase Inhibitor Adverse Reaction (Verified 11/26/19 09:56) Other MUSCLE CRAMPS Primary Care Physician: Vikram Segura MD [Primary Care Provider] - Prior records reviewed: Yes Surgical History: - Lives: Spouse/ Significant Other Smoking Status: Former smoker Alcohol: None Drugs: None - Family History Sibling Family History: Family History (Last Reviewed 11/15/18 @ 13:46 by Nuvia Berman) Mother Heart disease CVA (cerebral vascular accident) Father Heart disease Family History: Reports: Asthma - Brother Maternal Family History: Family History (Last Reviewed 11/15/18 @ 13:46 by Nuvia Berman) Mother Heart disease CVA (cerebral vascular accident) Father Heart disease Family History: Reports: Heart Disease, Stroke Paternal Family History: Family History (Last Reviewed 11/15/18 @ 13:46 by Nuvia Berman) Mother Heart disease CVA (cerebral vascular accident) Father Heart disease Family History: Reports: Heart Disease Review of Systems General: Denies: Chills, Fever, Sweats Eyes: Denies: Visual changes - bilaterally, Blurred Vision - bilaterally, Diplopia ENT: Denies: Bilateral ear pain, Rhinorrhea, Sore throat Cardiovascular: Denies: Chest pain, Palpitations Respiratory: Denies: Dyspnea, Cough, Dyspnea on exertion Gastrointestinal: Denies: Abdominal pain, Nausea, Vomiting, Diarrhea, Melena, Hematochezia Genitourinary: Denies: Dysuria, Hematuria, Frequency Musculoskeletal: Denies: Back pain, Extremity Pain Skin: Denies: Rash, Wounds Neurological: Reports: - - Intermittently problems with balance without visual or ocular symptoms.. Denies: Headache, Weakness, Parasthesia, Numbness Endocrine: Denies: Polyuria, Polydipsia Hematologic: Denies: Easy bruising, Easy bleeding Allergy: Denies: Uticaria, Swelling of the mouth STROKE Inital Vital Signs reviewed: Yes - Blood pressure is markedly elevated with a systolic of 245. - NIHSS Initial 1a Level of Consciousness: 0 1b LOC Questions (Score 2 if aphasic/stupor): 0 1c LOC Commands (Only score 1st attempt): 0 2 Best Gaze (If aphasic, use reflexive mvmts.): 0 3 Visual: 0 4 Facial Palsy: 0 5 Motor Arm Right (UN = amputation/fusion): 0 5 Motor Arm Left: 0 6 Motor Leg Right: 0 6 Motor Leg Left: 0 7 Limb ataxia (Only + if out of proportion): 0 8 Sensory (Aphasia/stupor=0 or 1, coma=2): 0 9 Best Language: 0 10 Dysarthria (mute, coma=2, intubated=UN): 0 11 Extinction and Inattention (only scored if +): 0 Total Score: 0 General: Well nourished, Well developed Head: Normocephalic, Atraumatic Eyes: Perrl, EOMI ENT: Moist mucous membranes, No rhinorrhea Neck: Supple, Nontender Cardiovascular: Regular rate, Regular rhythm, No murmurs Respiratory: No distress, CTA bilaterally, Chest nontender Abdomen: Soft, Nontender, Nondistended, Normal bowel sounds, No masses Back: Nontender, Normal Inspection Extremities: Nontender, No edema Skin: Normal color, No rash, No Trauma. Negative for: Cyanosis, Diaphoresis, Jaundice Neurological: Alert, Oriented x3, Cranial nerves II-XII grossly intact, Normal Strength, Normal Sensation, Normal DTR Psychological: Normal affect, Normal Mood Diagnostic/Tx/Re-eval Impressions Brain CT 11/26/19 09:54 IMPRESSION: Chronic involutional changes of the brain. Electronically Signed: Willard Flaherty, at 10:59 EDT , Service support , Chest X-Ray 11/26/19 10:25 IMPRESSION: Borderline cardiomegaly. Electronically Signed: Willard Flaherty at 10:54 EDT , Service support , 11/26/19 09:54 Brain/Head without Contrast [CT] Stat 11/26/19 10:25 Chest 1 View [RAD] Stat Laboratory Results 11/26/19 11/26/19 11/26/19 10:17 10:20 10:20 WBC 7.2 RBC 4.74 Hgb 13.7 Hct 43.5 MCV 91.8 MCH 28.9 MCHC 31.5 L RDW Std Deviation 44.8 H RDW Coeff of Kierra 13.2 Plt Count 239 MPV 10.6 Immature Gran % (Auto) 0.100 Neut % (Auto) 71.7 H Lymph % (Auto) 12.9 L [place] % (Auto) 11.3 H Eos % (Auto) 3.2 Baso % (Auto) 0.8 Absolute Neuts (auto) 5.2 Absolute Lymphs (auto) 0.93 Nucleated RBC % 0 PT 13.2 INR 1.1 APTT 26.3 Sodium Potassium Chloride Carbon Dioxide Anion Gap BUN Creatinine Estim Creat Clear Calc Est GFR (MDRD) Af Amer Est GFR (MDRD) Non-Af BUN/Creatinine Ratio Glucose Calcium Troponin I POC Glucose 129 H 11/26/19 10:20 WBC RBC Hgb Hct MCV MCH MCHC RDW Std Deviation RDW Coeff of Kierra Plt Count MPV Immature Gran % (Auto) Neut % (Auto) Lymph % (Auto) [place] % (Auto) Eos % (Auto) Baso % (Auto) Absolute Neuts (auto) Absolute Lymphs (auto) Nucleated RBC % PT INR APTT Sodium 139 Potassium 4.5 Chloride 108 H Carbon Dioxide 29.0 Anion Gap 2 L BUN 15 Creatinine 0.88 Estim Creat Clear Calc 46.65 Est GFR (MDRD) Af Amer 79 Est GFR (MDRD) Non-Af 66 BUN/Creatinine Ratio 17.0 Glucose 117 H Calcium 9.7 Troponin I < 0.015 POC Glucose Did receive first dose of blood pressure medication. Nurse was instructed to give second dose. There is no obvious stroke. There is no evidence of endorgan injury i.e. elevated creatinine,. There is LVH uncertain whether this is new or old. This may be due to hypertensive emergency. Will page hospitalist for admission. - EKG Initial EKG Interpretation: Sinus Rhythm - This rhythm with a ventricular rate of 62. [place] interval is 144 ms. QRS duration 88 ms. QT duration 466 ms. There is evidence of LVH with repolarization changes. There is a premature ventricular beat noted. There is also artifact. - Medical Decision Making Stroke Team Activated: No Reviewed Inclusion/Exclusion criteria: Yes Was Patient considered for Endovascular Intervention?: No IV Alteplase (t-PA) Administered: No No contraindications for IV Alteplase (t-PA) administration.: No - Blood pressure is elevated and symptoms started 1 month ago. Alteplase (t-PA) risks, benefits, alternative discussed: No Patient with intermittent problems with balance. This may represent vertebrobasilar insufficiency. Need to entertain possibility of TIA. This also may be related to her elevated blood pressure. CT of the head was obtained to evaluate for stroke and hemorrhage. Appropriate blood work was obtained. Second blood pressure reading was also markedly elevated. Diastolic was not is elevated. First diastolic pressure was 114-second was 85. Will review patient's medication list and if her blood pressure remains elevated will administer blood pressure meds. Patient's blood pressure remains elevated. Will treat. There is no evidence of stroke on CAT scan. Hospitalist was paged for admission to stepdown versus ICU. Critical care time (excluding procedures): 30-74 minutes - Care time 32 minutes which includes obtaining history and physical, speaking with paramedics, family members to determine onset and severity, discussion with hospitalist, facilitate admission and discussion with nurse regarding blood pressure management. ED Disposition - Plan for ED Patient: Disposition: Acute Care Hospital [facility] Diagnosis: Hypertensive emergency without congestive heart failure, Dysarthria, Balance problem Referrals: Vikram Segura MD [Primary Care Provider] -
--- NOTE | 2019-11-26 10:25 | RAD_ITS ---
STUDY: X-RAY CHEST REASON FOR EXAM: Female, 79 years old. Patient states balance has been off the past 2 days. -- HX BREAST CA TECHNIQUE: Single AP portable view of the chest. COMPARISON: Comparison is made with prior study dated 03/08/2019. FINDINGS: EKG electrodes are seen. The lungs are clear and expanded. There is no demonstrated pleural abnormality. There is borderline cardiomegaly. Normal mediastinum and musa. Normal visualized pulmonary arteries. There is atherosclerotic calcification of the aortic arch with tortuosity. Normal visualized thoracic spine. Healed left-sided rib fractures. There is no demonstrated abnormality of the visualized soft tissue structures of the upper abdomen. RAD/Chest 1 View IMPRESSION: Borderline cardiomegaly. Electronically Signed: Willard Flaherty, at 10:54 EDT , Service support ,
[2019-11-26 10:29] LABS: Absolute Lymphocyte Count 0.93 X10^3/uL (0.83-4.51); Absolute Neutrophil Count 5.2 X10^3/uL (2.0-7.7); Basophil# 0.06 X10^3/uL; Basophil% 0.8 % (0-1); Eosinophil# 0.23 X10^3/uL; Eosinophils% 3.2 % (0-5); Hematocrit 43.5 % (37-47); Hemoglobin 13.7 g/dL (12.0-15.0); Lymphocyte # 0.93 X10^3/ul (4.0); Lymphocyte % 12.9 % (19-41); Mean Corp Hgb Conc 31.5 g/dL (32-36); Mean Corpuscular Hgb 28.9 pg (27.0-32.0); Mean Corpuscular Volume 91.8 fL (81-99); Mean Platelet Vol. 10.6 fl (6.2-12.0); Monocyte# 0.81 X10^3/uL; Monocyte% 11.3 % (0-10); NRBC Flagged by Analyzer 0 % (0-5); Neutrophil # 5.16 X10^3/uL (2.7-7.7); Neutrophil % 71.7 % (47-70); Platelet Count 239 K/mm3 (150-450); RBC Distribution Width CV 13.2 % (11.6-14.6); RBC Distribution Width SD 44.8 fl (35.1-43.9); Red Blood Count 4.74 M/mm3 (4.2-5.4); White Blood Count 7.2 K/mm3 (4.4-11.0)
[2019-11-26 10:31] LABS: Bedside Glucose 129 mg/dL (70-110)
[2019-11-26 10:37] LABS: International Normalized Ratio 1.1; Partial Thromboplast Time 26.3 Seconds (24.1-36.2); Prothrombin Time (Protime)PT. 13.2 SECONDS (11.7-14.9)
[2019-11-26 10:52] LABS: Anion Gap 2 (5-15); BUN 15 mg/dL (7-18); Calcium,Total 9.7 mg/dL (8.5-10.1); Chloride 108 mmol/L (98-107); Creatinine, Serum 0.88 mg/dL (0.55-1.02); EST Glomerular Filtration Rate 66 mL/min (>60); Est Glom Filt Rate - Afr Amer 79 mL/min (>60); Estimated Creatinine Clearance 46.65 ml/min; Glucose 117 mg/dL (74-106); Potassium 4.5 mmol/L (3.5-5.1); Sodium Level 139 mmol/L (136-145)
[2019-11-26] MEDS: Labetalol (Prefilled) 20 MG/4 ML IV ×2 (11:27→11:52)
--- NOTE | 2019-11-26 12:39 | NURSING ---
DR MCDANIEL FOR DR DANG
[2019-11-26] MEDS: Labetalol 100 MG/20 ML Vial 40 MG IV (12:50)
--- NOTE | 2019-11-26 13:04 | NURSING ---
[facility], DYSARTHIA
--- NOTE | 2019-11-26 13:27 | HP.PCM_ITS ---
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 Patient did not feel that she was slurring her speech however her noticed this today. She has been also having some balance issues today as well as last night. She states that she is not dizzy or lightheaded however when she is walking she cannot seem to get her balance and wobbles back and forth somewhat. She was brought to the ER and found to have severely elevated blood pressure with a systolic blood pressure of 240 mmHg. The patient revealed that she had's not taken any of her blood pressure medications, she is also been out of 1 of her blood pressure medications and has not refilled it. She has no headache, dizziness, lightheadedness, blurry or double vision, chest pain, shortness of breath, lower extremity edema, focal weakness, or swallowing difficulty. 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) HTN (hypertension) (Chronic) History of hysterectomy (Chronic) Hypothyroidism (Chronic) Medical History: Medical History (Last Updated 11/15/18 @ 13:46 by Nuvia Berman) Fall (Acute) W19.XXXA Inferior pubic ramus fracture (Acute) S32.599A HTN (hypertension) (Chronic) I10 Hypothyroidism (Chronic) E03.9 Arthritis M19.90 Diverticulosis K57.90 Ductal carcinoma in situ (DCIS) of right breast D05.11 Hypercholesterolemia E78.00 Vitamin D deficiency E55.9 right breast cancer Allergies atorvastatin [From Lipitor] Allergy (Mild, Verified 11/26/19 09:56) muscle aches lisinopril Allergy (Mild, Verified 11/26/19 09:56) cough rosuvastatin [From Crestor] Allergy (Mild, Verified 11/26/19 09:56) muscle aches alendronate sodium [From Fosamax] Allergy (Unknown, Verified 11/26/19 09:56) unknown Sulfa (Sulfonamide Antibiotics) Allergy (Verified 11/26/19 09:56) Rash acetaminophen [From Tylenol] Adverse Reaction (Verified 11/26/19 09:56) restless legs RESTLESS LEGS codeine Adverse Reaction (Verified 11/26/19 09:56) Nausea NSAIDS (Non-Steroidal Anti-Inflamma Adverse Reaction (Verified 11/26/19 09:56) Bleeding Almmkpv-Ine-Unm Reductase Inhibitor Adverse Reaction (Verified 11/26/19 09:56) Other MUSCLE CRAMPS Home Medications: Ambulatory Orders Medication Instructions Recorded Losartan Potassium [Cozaar] 25 mg PO TID 10/08/14 Escitalopram Oxalate [Lexapro] 20 mg PO DAILY 06/27/18 Gabapentin [Neurontin] 600 mg PO QHS 06/27/18 Albuterol Inhaler [Ventolin Hfa 2 puff INHALATION Q4H PRN PRN 11/02/18 (SP)] Mv-Mn/Folic AC/Calcium/Vit K1 1 ea PO BID 11/02/18 [Women's 50 Plus Multivit Tab] Pantoprazole Sodium [Protonix] 40 mg PO BID 11/02/18 Pramipexole Di-HCl [Pramipexole 2 tab PO QHS 11/02/18 Dihydrochloride] Bupropion HCl [Bupropion HCl Sr] 150 mg PO DAILY 11/26/19 Fluoxetine HCl [Prozac] 20 mg PO DAILY 11/26/19 Isosorbide Dinitrate 5 mg PO DAILY 11/26/19 Levocetirizine Dihydrochloride 5 mg PO DAILY 11/26/19 Magnesium Oxide [Magnesium] 400 mg PO DAILY 11/26/19 Metoprolol Succinate [Toprol Xl] 50 mg PO BID 11/26/19 Surgical History: Surgical History (Last Updated 11/15/18 @ 13:46 by Nuvia Berman) History of hysterectomy (Chronic) Z90.710 History of left mastoidectomy Z90.89 History of lumpectomy of right breast Z98.890 History of right hip replacement Z96.641 History of thyroid surgery Z98.890 history excisional breast biopsy right Onset Date: ~11/08/18 Surgical History: - 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, 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 Lives: Spouse/ Significant Other Smoking Status: Former smoker Alcohol: None Drugs: None - *Family History Sibling Family History: Family History (Last Reviewed 11/26/19 @ 13:30 by ROSA ISELA Rivera) Mother Heart disease CVA (cerebral vascular accident) Father Heart disease History Items: Asthma - Brother, Stroke Maternal Family History: Family History (Last Reviewed 11/26/19 @ 13:30 by ROSA ISELA Rivera) Mother Heart disease CVA (cerebral vascular accident) Father Heart disease History Items: Heart Disease, Stroke Paternal Family History: Family History (Last Reviewed 11/26/19 @ 13:30 by ROSA ISELA Rivera) Mother Heart disease CVA (cerebral vascular accident) Father Heart disease History Items: Heart Disease Review of Systems Constitutional: Denies: Chills, Fever, Weight Change HEENT: Denies: Head Aches, Sinus Congestion, Sinus Drainage Cardiovascular: Denies: Chest Pain, Palpitations Respiratory: Denies: Cough, Shortness of breath at rest, Sputum production Gastrointestinal: Denies: Abdominal Pain, Nausea, Vomiting Genitourinary: Denies: Dysuria Musculoskeletal: Denies: Joint Pain, Joint Tenderness Skin: Denies: Rash, Wounds Neurological: Reports: Slurred speech. Denies: Focal weakness, Numbness, Tingling Psychiatric: Denies: Anxiety, Depression, Homicidal Ideations, Suicidal Ideat ions Hematologic/ Lymphatic: Denies: Easy Bruising, Easy Bleeding VTE Information - Inpt Only VTE Present on Admission: No VTE Mechan Device Prophylaxis: None VTE Pharm Prophylaxis ordered?: Yes Patient Problems: Active and Suspected Problems (Last Updated 11/15/18 @ 13:46 by Nuvia Berman) Hypertensive emergency without congestive heart failure (Acute) Dysarthria (Acute) Balance problem (Acute) - Physical Exam Vitals/I&O's: Vital Signs Temp Pulse Resp BP Pulse Ox 98.9 F 62 16 189/98 H 98 11/26/19 13:23 11/26/19 13:23 11/26/19 13:23 11/26/19 13:23 11/26/19 13:23 Oxygen Delivery Method Room Air Weight: 125 lb 10.616 oz Body Mass Index (BMI) 20.9 Finger Stick Blood Glucose 129 General: Alert, Oriented x3, Cooperative HEENT: Atraumatic, PERRLA, EOMI, Normocephalic Neck: Supple, No JVD, Negative Carotid Bruits Lungs: Clear to auscultation, Normal air movement Cardiovascular: Regular rate, No murmurs Abdomen: Bowel Sounds Present, Soft, Non Tender Extremities: No edema, Capillary Refill Less than 3 Seconds Skin: No rashes, No breakdown Musculoskeletal: No Tenderness to Palpation of Joints or Extremities Neurological: Cranial nerves II-XII grossly intact Psych/Mental Status: Normal Affect, Appropriate, Alert and oriented to time, place, person, mood and affect Laboratory Results 11/26/19 10:17: POC Glucose 129 H 11/26/19 10:20: WBC 7.2, RBC 4.74, Hgb 13.7, Hct 43.5, MCV 91.8, MCH 28.9, MCHC 31.5 L, RDW Std Deviation 44.8 H, RDW Coeff of Kierra 13.2, Plt Count 239, MPV 10.6, Immature Gran % (Auto) 0.100, Neut % (Auto) 71.7 H, Lymph % (Auto) 12.9 L, [place] % (Auto) 11.3 H, Eos % (Auto) 3.2, Baso % (Auto) 0.8, Absolute Neuts (auto) 5.2, Absolute Lymphs (auto) 0.93, Nucleated RBC % 0 11/26/19 10:20: PT 13.2, INR 1.1, APTT 26.3 11/26/19 10:20: Sodium 139, Potassium 4.5, Chloride 108 H, Carbon Dioxide 29.0, Anion Gap 2 L, BUN 15, Creatinine 0.88, Estim Creat Clear Calc 46.65, Est GFR (MDRD) Af Amer 79, Est GFR (MDRD) Non-Af 66, BUN/Creatinine Ratio 17.0, Glucose 117 H, Calcium 9.7, Troponin I < 0.015 Current Medications Labetalol HCl (Trandate) 20 mg IV X1 PRN PRN Reason: BLOOD PRESSURE Last Admin: 11/26/19 11:52 Dose: 20 mg Documented by: Assessment/Plan All Active Problems (Last Updated 11/15/18 @ 13:46 by Nuvia Berman) Hypertensive emergency without congestive heart failure (Acute) Dysarthria (Acute) Balance problem (Acute) Microcalcification of right breast on mammogram (Acute) GI bleed (Acute) Syncope and collapse (Acute) Acute blood loss anemia (Acute) Intractable pain (Acute) Fall (Acute) Inferior pubic ramus fracture (Acute) 1. HTN emergency - received lebatolol 3x in er with some improvement of BP to 180 mmHg. Pt did not take AM meds and has been out of one of her BP meds. Resume home meds and start HCTZ. EKG negative. CT brain chronic changes. CXR bordlerine cardiomegaly. Troponin negative. 2. Dysarthria - per happened today. None appreciated at this time. Also has gait imbalance. Obtain MRI brain. 3. HLD - statin allergic 4. Anx/Depression - lexapro, prozac (unclear why she is on two SSRIs, bupropion (hold with htn) 5. GERD - ppi DVT ppx: lovenox This patient was seen by Sebastian Alberto PA-C under the supervision of Dr. Jamison.
--- NOTE | 2019-11-26 14:22 | MRI_ITS ---
STUDY: MRI BRAIN WITHOUT CONTRAST REASON FOR EXAM: Female, 79 years old. slurred speech, off balance x 2 days -- hx breast ca, left mastoidectomy TECHNIQUE: Standardized multiplanar fat and water weighted pulse sequences were obtained. COMPARISON: CT of the brain 11/26/2019 MRI of the brain 10/05/2010 FINDINGS: Mild atrophy and advanced periventricular white matter ischemic changes without mass effect or restricted diffusion.. There is T2 shine through noted within the left basal ganglia which may be on the basis of prior ischemic changes Chronic ischemic changes are seen within the gume. Normal thalami. There is no extra-axial fluid accumulation. Normal flow voids within the major intracranial circulation suggesting patency by spin echo criteria. Normal sella turcica, pituitary gland, infundibular stalk, optic chiasm and hypothalamus. Normal tectal plate. Small pineal cyst likely of no significance Normal midbrain, and medulla. Normal cerebellum. Normal basal cisterns. Normal bilateral temporal bones. Normal bilateral internal auditory canals. No demonstrated orbital abnormality, within the constraints of a routine brain study. Minor mucosal thickening of the ethmoid air cells.. Normal calvarium and skull base. Normal visualized soft tissue structures. Normal visualized upper cervical spine. MRI/Brain without Contrast IMPRESSION: Advanced periventricular white matter ischemic changes. Chronic ischemic changes within the gume and left basal ganglia. No evidence for acute infarct If concern for brain metastasis limited repeat study with contrast would be useful for further evaluation t Electronically Signed: Jim Castro MD at 19:17 EDT , Service support ,
[2019-11-26] MEDS: hydroCHLOROthiazide 25 MG Tablet 12.5 MG PO (14:37)
[2019-11-26] MEDS: cloNIDine HCl 0.2 MG Tablet PO (14:37)
[2019-11-26] MEDS: Losartan Potassium 100 MG Tablet PO (14:37)
[2019-11-26] MEDS: Metoprolol(XL)Succ 50 MG Tablet PO ×2 (16:18→21:32)
[2019-11-26] MEDS: cycloBENZAPRine HCl 10 MG Tablet PO (21:32)
[2019-11-26] MEDS: Pantoprazole Sodium 40 MG Tablet PO (21:32)
[2019-11-26] MEDS: Heparin Injection (Vial) 5,000 UNIT/ML VIAL 5000 UNIT SC (21:32)
[2019-11-27 03:00] VITALS: BP 158/69; PULSE 54; PULSE 55; RESP 16; TEMP 36.6; O2SAT 94
[2019-11-27 06:49] VITALS: PULSE 49
[2019-11-27 08:23] VITALS: PULSE 57
[2019-11-27] MEDS: Pantoprazole Sodium 40 MG Tablet PO (08:23)
[2019-11-27] MEDS: Metoprolol(XL)Succ 50 MG Tablet PO (08:23)
[2019-11-27] MEDS: FLUoxetine 20 MG Capsule PO (08:23)
[2019-11-27] MEDS: hydroCHLOROthiazide 25 MG Tablet 12.5 MG PO (08:24)
[2019-11-27] MEDS: Heparin Injection (Vial) 5,000 UNIT/ML VIAL 5000 UNIT SC (08:24)
[2019-11-27 08:27] VITALS: BP 189/96; PULSE 57; RESP 16; TEMP 37.1; O2SAT 96
[2019-11-27] MEDS: Losartan Potassium 100 MG Tablet PO (08:33)
--- NOTE | 2019-11-27 10:52 | CASEMGMT ---
ANNIE GAUTHIER assessment: Face to Face with patient for initial transition planning/care coordination assessment. ANNIE GAUTHIER introduced self and role at [facility], pt voices understanding and consents to assessment at this time. Pt is sitting up in bed in no distress at this time. Pt does seem to have a lisp/slurred speech with talking and she states that this is new. Pt is A/Ox4 at this time and answers all questions appropriately at this time. Care providers, pharmacy, and demographics verified at this time. Presentation: Pt c/o being 'off balance' for the past 2 days Admitting dx: Hypertensive emergency, dysarthria PCP: Vikram Segura Specialists: daphne Ken; Yaya, surg Preferred [facility]acy: [facility] Insurance: [employer] Prescription Benefit: [employer] Living Will/HPOA: Pt states has a LW/HPOA and is aware that they are not on file at [facility] at this time. Pt states that her , Joni Ramirez, is HPOA. LNOK: Joni Ramirez, ; David Ramirez, son Living Arrangements: Pt states lives with in mobile home and states no concerns at home at this time. Pt states is independent with ADL's. Transportation: Pt states drives self and states no transportation concerns at this time. DME/HHC: Pt states is supposed to wear a cpap, but states 'can't tolerate it.' Pt states no need for any further DME at this time. Pt states no hx of HHC or SNF in the past. Pt states no concerns with going home at time of discharge. Pt states is retired. Pt states does not smoke cigarettes but does drink an 'Old fashioned at 5pm every night.' Pt states no further concerns/needs at this time. CM to follow for any further discharge planning/needs. Advised pt to ask for CM if any further questions/concerns/needs arise, voices understanding. Pt Goal: [place] ANNIE GAUTHIER
[2019-11-27 11:15] VITALS: BP 152/99
--- NOTE | 2019-11-27 11:18 | DCINST_ITS ---
- Discharge Diagnoses Current Active Problems: Current Active and Chronic Problems (Last Updated 11/15/18 @ 13:46 by Nuvia Berman) Hypertensive emergency without congestive heart failure (Acute) Dysarthria (Acute) Balance problem (Acute) HLD (hyperlipidemia) (Chronic) You will use the following diet at home:: Cardiac Your food should be the consistency of: Regular Your liquids should be the consistency of: Regular/Thin Discharge Activity: Return to Normal Activity Call your doctor if you observe: Chest pain Allergies/Adverse Reactions: Allergies atorvastatin [From Lipitor] Allergy (Mild, Verified 11/26/19 09:56) muscle aches lisinopril Allergy (Mild, Verified 11/26/19 09:56) cough rosuvastatin [From Crestor] Allergy (Mild, Verified 11/26/19 09:56) muscle aches alendronate sodium [From Fosamax] Allergy (Unknown, Verified 11/26/19 09:56) unknown Sulfa (Sulfonamide Antibiotics) Allergy (Verified 11/26/19 09:56) Rash acetaminophen [From Tylenol] Adverse Reaction (Verified 11/26/19 09:56) restless legs RESTLESS LEGS codeine Adverse Reaction (Verified 11/26/19 09:56) Nausea NSAIDS (Non-Steroidal Anti-Inflamma Adverse Reaction (Verified 11/26/19 09:56) Bleeding Ltrmplz-Brw-Bpw Reductase Inhibitor Adverse Reaction (Verified 11/26/19 09:56) Other MUSCLE CRAMPS Medications to take at Discharge Albuterol Inhaler [Ventolin Hfa] 2 puff INHALATION Q4H PRN PRN 11/02/18 Mv-Mn/Folic AC/Calcium/Vit K1 [Women's 50 Plus Multivit Tab] 1 ea PO BID 11/02/18 Pantoprazole Sodium [Protonix] 40 mg PO BID 11/02/18 Fluoxetine HCl [Prozac] 20 mg PO QHS 11/26/19 Levocetirizine Dihydrochloride 5 mg PO QHS 11/26/19 Magnesium Oxide [Magnesium] 400 mg PO DAILY 11/26/19 Potassium Citrate [Potassium Citrate ER] 1,080 mg PO DAILY 11/26/19 Hydrochlorothiazide [Hctz] 12.5 mg PO DAILY #15 tab 11/27/19 Losartan Potassium [Cozaar] 100 mg PO DAILY #30 tab 08/11/20 Metoprolol Tartrate [Lopressor (beta su)] 50 mg PO BID #60 tab 11/27/19 The following prescriptions were given: Losartan Potassium [Cozaar] 100 mg PO DAILY #30 tab Transmission Status: Pending to [id number] Hydrochlorothiazide [Hctz] 12.5 mg PO DAILY #15 tab Transmission Status: Pending to [id number] Metoprolol Tartrate [Lopressor (beta su)] 50 mg PO BID #60 tab Transmission Status: Pending to [id number] Primary Care Physician: Vikram Segura MD [Primary Care Provider] - Please follow up with your Primary Care Physician in: Tuesday Test Results: Test results from this visit will be discussed in further detail at your follow- up appointment, if applicable. Proposed Discharge Date: 11/27/19
--- NOTE | 2019-11-27 12:41 | PHA.DC.MC ---
Pharmacy Service has performed discharge medication reconciliation and counseling for this patient. 1. HYDROCHLOROTHIAZIDE 12.5MG PO DAILY The patient's discharge medication list was reviewed for discrepancies and discrepancies were resolved. Home Medications Albuterol Inhaler [Ventolin Hfa] 2 puff INHALATION Q4H PRN PRN 11/02/18 Mv-Mn/Folic AC/Calcium/Vit K1 [Women's 50 Plus Multivit Tab] 1 ea PO BID 11/02/18 Pantoprazole Sodium [Protonix] 40 mg PO BID 11/02/18 Fluoxetine HCl [Prozac] 20 mg PO QHS 11/26/19 Levocetirizine Dihydrochloride 5 mg PO QHS 11/26/19 Magnesium Oxide [Magnesium] 400 mg PO DAILY 11/26/19 Potassium Citrate [Potassium Citrate ER] 1,080 mg PO DAILY 11/26/19 Hydrochlorothiazide [Hctz] 12.5 mg PO DAILY #15 tab 11/27/19 Losartan Potassium [Cozaar] 100 mg PO DAILY #30 tab 11/27/19 Metoprolol Tartrate [Lopressor (beta su)] 50 mg PO BID #60 tab 11/27/19 The patient was counseled on the following discharge medications and changes in medications for homegoing were reviewed. The Reason for Use, instructions for use, and potential side effects were reviewed for all new medications. The patient's questions regarding all of their medications were answered. The patient was able to verbally demonstrate an understanding of their discharge medications. Patient counseled by manager of pharmacyWilner.
--- NOTE | 2019-11-27 13:38 | PCM.DC.SUM ---
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 RAD/Chest 1 View IMPRESSION: Borderline cardiomegaly. MRI/Brain without Contrast IMPRESSION: Advanced periventricular white matter ischemic changes. Chronic ischemic changes within the gume and left basal ganglia. No evidence for acute infarct If concern for brain metastasis limited repeat study with contrast would be useful for further evaluation t Operations: None Procedures: None Summary of Care Provided: Hospital course: The patient is a 79 year old F past medical history as above who presented to the emergency room with complaints of slurred speech. The noted slurred speech earlier that day and the patient also reported she had been having some unsteadiness on her feet when ambulating a day prior in the day of presentation. The patient admitted that she had not refilled at least 1 of her blood pressure medications and had not taken any blood pressure medications the day of presentation. Patient was brought to the emergency room and found to have a blood pressure as high as 242/85. She was given multiple doses of labetalol which helped to improve her pressure though still remained elevated over [address] of the brain was negative for acute changes, chronic changes only. Patient was felt to have hypertensive emergency however with report of slurred speech at home there was concern there could be underlying stroke. Patient was admitted to the PCU and placed on telemetry. She was placed on losartan, HCTZ, metoprolol, PRN labetalol. An MRI of the brain was obtained the following morning and demonstrated only chronic changes. The patient's blood pressure remained stable on this regimen with a systolic pressure of about 150. She is advised to follow-up this week with her PCP. She was discharged home in stable condition. This patient was seen by Sebastian Alberto PA-C under the supervision of Doctor Shaheen. [] - Physical Exam Vitals/I&O's: Vital Signs Temp Pulse Resp BP Pulse Ox 98.8 F 57 L 16 152/99 H 96 11/27/19 08:27 11/27/19 08:27 11/27/19 08:27 11/27/19 11:15 11/27/19 08:27 Oxygen Delivery Method Room Air Weight: 124 lb 5.451 oz Body Mass Index (BMI) 22.0 Finger Stick Blood Glucose 129 Intake and Output for Last 24 Hours 11/25/19 11/26/19 11/27/19 23:59 23:59 23:59 Intake Total 660 / 660 720 / 720 Balance 660 / 660 720 / 720 General: Alert, Oriented x3, Cooperative HEENT: Atraumatic, PERRLA, EOMI, Normocephalic Neck: Supple, No JVD, Negative Carotid Bruits Lungs: Clear to auscultation, Normal air movement Cardiovascular: Regular rate, No murmurs Abdomen: Bowel Sounds Present, Soft, Non Tender Extremities: No edema, Capillary Refill Less than 3 Seconds Skin: No rashes, No breakdown Musculoskeletal: No Tenderness to Palpation of Joints or Extremities Neurological: Cranial nerves II-XII grossly intact Psych/Mental Status: Normal Affect, Appropriate, Alert and oriented to time, place, person, mood and affect Discharge Diet: Low fat/ Low Cholesterol, 2000 mg Sodium Diet Discharge Activity: Return to Normal Activity Call your doctor if you observe: Chest pain Home Medications: Medications to take at Discharge Albuterol Inhaler [Ventolin Hfa] 2 puff INHALATION Q4H PRN PRN 11/02/18 Mv-Mn/Folic AC/Calcium/Vit K1 [Women's 50 Plus Multivit Tab] 1 ea PO BID 11/02/18 Pantoprazole Sodium [Protonix] 40 mg PO BID 11/02/18 Fluoxetine HCl [Prozac] 20 mg PO QHS 11/26/19 Levocetirizine Dihydrochloride 5 mg PO QHS 11/26/19 Magnesium Oxide [Magnesium] 400 mg PO DAILY 11/26/19 Potassium Citrate [Potassium Citrate ER] 1,080 mg PO DAILY 11/26/19 Hydrochlorothiazide [Hctz] 12.5 mg PO DAILY #15 tab 11/27/19 Losartan Potassium [Cozaar] 100 mg PO DAILY #30 tab 11/27/19 Metoprolol Tartrate [Lopressor (beta su)] 50 mg PO BID #60 tab 11/27/19 Following Prescriptions Were Given to Patient: Losartan Potassium [Cozaar] 100 mg PO DAILY #30 tab [id number] Hydrochlorothiazide [Hctz] 12.5 mg PO DAILY #15 tab Transmission Status[facility] Metoprolol Tartrate [Lopressor (beta su)] 50 mg PO BID #60 tab Transmission Status[facility] Primary Care Physician: Vikram Segura MD [Primary Care Provider] - Please follow up with your Primary Care Physician in: Tuesday Disposition: Home Minutes spent on discharge:: 35 Patient Condition:: Stable Medical Necessity - Tobacco Use Smoking Status: Former smoker Meaningful Use Info Meaningful Use Diagnoses (Choose all that apply): None applicable
== END 2019-11-27 12:17 | disposition home or self-care (01) | DRG 305 ==
LOC: ED 11:51 → PCU 13:14
PROVIDERS: Admitting Provider Internal Medicine; Emergency Provider Emergency Medicine; PCP Family Medicine; Visit Provider Internal Medicine
DX: I16.1 Hypertensive emergency (principal); R47.1 Dysarthria and anarthria; R26.81 Unsteadiness on feet; E03.9 Hypothyroidism, unspecified; E78.5 Hyperlipidemia, unspecified; K21.9 Gastro-esophageal reflux disease without esophagitis; F32.9 Major depressive disorder, single episode, unspecified; F41.9 Anxiety disorder, unspecified; M19.90 Unspecified osteoarthritis, unspecified site; Z85.3 Personal history of malignant neoplasm of breast; Z79.899 Other long term (current) drug therapy; Z87.891 Personal history of nicotine dependence; Z82.3 Family history of stroke
CPT/HCPCS: 70450; 70551; 71045; 80048; 82962; 84484; 85025; 85610; 85730; 93005; 99285; A4216

== ENCOUNTER → 2019-11-30 15:34 | Outpatient (CLI) | payer MEDICARE, SELFPAY ==
[2019-11-26 22:27] VITALS: BMI 22.0
[2019-11-30 17:56] LABS: Anion Gap 7 (5-15); BUN 17 mg/dL (7-18); Calcium,Total 9.2 mg/dL (8.5-10.1); Chloride 101 mmol/L (98-107); Creatinine, Serum 1.06 mg/dL (0.55-1.02); EST Glomerular Filtration Rate 53 mL/min (>60); Est Glom Filt Rate - Afr Amer 64 mL/min (>60); Ferritin 39 ng/mL (8-252); Glucose 117 mg/dL (74-106); Potassium 3.3 mmol/L (3.5-5.1); Sodium Level 138 mmol/L (136-145)
== END ==
PROVIDERS: PCP Family Medicine; Referring Provider Family Medicine; Visit Provider Family Medicine
DX: G25.81 Restless legs syndrome (principal); I10 Essential (primary) hypertension
CPT/HCPCS: 36415; 80048; 82728

== ENCOUNTER → 2019-12-07 12:12 | Outpatient (CLI) | payer MEDICARE, SELFPAY ==
[2019-11-26 22:27] VITALS: BMI 22.0
[2019-12-07 15:52] LABS: ALB/GLOB Ratio 0.9 RATIO (0.9-2.4); AST(SGOT) 16 U/L (15-37); Alanine Aminotransfer ALT/SGPT 15 U/L (13-56); Albumin, Serum 3.7 g/dL (3.2-5.0); Alkaline Phosphatase 99 U/L (45-117); Anion Gap 8 (5-15); BUN 16 mg/dL (7-18); BUN/Creat Ratio 19.3 RATIO (10-20); Calcium,Total 9.2 mg/dL (8.5-10.1); Chloride 104 mmol/L (98-107); Creatinine, Serum 0.83 mg/dL (0.55-1.02); EST Glomerular Filtration Rate 70 mL/min (>60); Est Glom Filt Rate - Afr Amer 85 mL/min (>60); Globulin 4.1 g/dL (2.2-4.2); Glucose 84 mg/dL (74-106); Potassium 3.5 mmol/L (3.5-5.1); Protein, Total 7.8 g/dL (6.4-8.2); Sodium Level 139 mmol/L (136-145); Thyroid Stim Hormone (TSH) 2.11 uIU/mL (0.358-3.74)
== END ==
PROVIDERS: PCP Family Medicine; Referring Provider Family Medicine; Visit Provider Family Medicine
DX: R53.83 Other fatigue (principal)
CPT/HCPCS: 36415; 80053; 84443

== ENCOUNTER 2019-12-11 10:48 | Outpatient (RCR) | payer MEDICARE, SELFPAY ==
[2019-11-26 22:27] VITALS: BMI 22.0
--- NOTE | 2019-12-11 11:54 | HP.OTEVAL ---
Patient's Visit Information XAVIER RAHMAN is a 79 year old F, referred to Occupational Therapy by Dr. Vikram Segura MD, with a diagnosis of right hand weakness. Date of Evaluation: 12/11/19 Occupational Therapist: Teresa Nixon, DANE/Suzanne, CHT - Subjective This 79 year old female was seen for OT eval with dx of right hand weakness- pt reports about two weeks ago she had high blood pressure and she went to [facility]- states she noticed some weekness in her right hand with daily tasks as picking a cup up. pt would like to learn some exercises to cont to keep her strength. - ROM ROM Comments: pt demo ROM - Strength Shoulder: right 4/5 left 4/+/5 Elbow: right 4/5 left 4/+/5 Forearm: right 4/5 left 4/+/5 Wrist: right 4/5 left 4/+/5 Keyliner: right 45# left 55# Lateral Pinch: right 14# left 13# Tripod Pinch: right 12# left 12# Tip-to-Tip Pinch: right 12# left 10# - Sensation Sensation Comments: denies - Goals Goal:: Pt will demo a increase in UE MMT 4+/5 to increase pts ind with ADLS and IADLs. pt will demo a increase in right girp strength by 10# to increase pts ind with ADLs and IADLS. Goal:: pt will demo understanding of typing ergo to increase speed and decrease errors with writing. - Rehabilitation General Assessment: Pt demo with a decrease in right UE/hand weakness limiting her ind with ADLs and IADLS. pt demo a need for skilled OT services 1-2x week for 4 weeks to assist pt on increasing her ind.with ADLs and IADLs. Today therapist ed. pt on UB ex. to perform 2x a day 2 sets of 8. pt given handout- pt demo understanding of ex. Due to high cost of $40 co-pay pt agree to therapy 1x week for 4 weeks. Rehabilitation Potential: Good - Anticipated Interventions Strengthening, Ergonomic Education, Home Program - Visit Plan Frequency: 1x/Week Duration: 4 Weeks TEXT: Thank you for the opportunity to evaluate your patient. For Medicare and Medicare HMO plans, please review the plan of care and approve it. It will need to be FAXED BACK to us at [phone] for Medicare purposes. Please let me know if there are questions or concerns regarding this plan of care. Physician Signature: Date:
== END 2019-12-11 19:00 | disposition home or self-care (01) ==
LOC: OT 10:48
PROVIDERS: PCP Family Medicine; Visit Provider Family Medicine
DX: R29.898 Other symptoms and signs involving the musculoskeletal system (principal)
CPT/HCPCS: 97110; 97166

== ENCOUNTER → 2019-12-17 09:01 | Outpatient (CLI) | payer MEDICARE, SELFPAY ==
[2019-11-26 22:27] VITALS: BMI 22.0
--- NOTE | 2019-12-17 09:05 | RDU_ITS ---
Reason For Study: Severe hypertension Right Renal Artery Left Renal Artery Right renal artery ostium Left renal artery ostium 94.2/17.5 157.8/17.3 RSV/EDV. PSV/EDV. Right renal artery proximal Left renal artery proximal PSV/EDV 179.1/23.3 PSV/EDV. 103.4/19.4 . Right renal artery mid 161.6/18.9 Left renal artery mid 128.9/19.4 PSV/EDV. PSV/EDV . Right renal artery distal 155/18.9 Left renal artery distal 139.9/24.8 PSV/EDV. PSV/EDV. Right RAR 2.28. Left RAR 1.78. Right Renal Parenchyma Left Renal Parenchyma Upper Pole Medula 25.1/4.7 PSV/EDV. Left upper pole medulla 25.5/5.3 Right upper pole medulla EDR 0.19 . PSV/EDV . Right upper pole medulla R.I. Left upper pole medulla EDR 0.21 . 0.81 . Left upper pole medulla R.I. 0.79 . Upper Tyrese Cortx 14.6/5.3 PSV/EDV. UP Cortex 18.2/5.3 PSV/EDV. Right upper pole cortex EDR 0.36 . Left upper pole cortex EDR 0.29 . Right upper pole cortex R.I. 0.64 . Left upper pole cortex R.I. 0.71 . Right lower Pole medulla 21.8/5.3 Left lower Pole medulla 23.7/5.3 PSV/EDV . PSV/EDV . Right lower pole medulla EDR 0.24 . Left lower pole medulla EDR 0.22 . Right lower pole medulla R.I. Left lower pole medulla R.I. 0.78 . 0.76 . Lower Pole Cortx 15.1/4.7 PSV/EDV. Lower Pole Cortex 16.8/5.3 PSV/EDV. Left lower pole cortex EDR 0.31 . Right lower pole cortex EDR 0.32 . Left lower pole cortex R.I. 0.69 . Right lower pole cortex R.I. 0.69 . Left Renal Hilar Right Renal Hilar LT Hilar avg 55.3/10.6 PSV/EDV . Right Hilar avg 68.7/12.7 PSV/EDV. Left hilar acceleration time 20 Right hilar acceleration time 60 m/sec. m/sec. Left Renal Dimensions Right Renal Dimensions Left kidney size 10.16 cm . Right kidney size 9.39 cm . Left cortical dimension 1.17 cm . Right cortical dimension 1.04 cm . Aorta Proximal abdominal aorta 2.17 x 2.17 cm . Proximal abdominal aorta peak systolic velocity is 78.4 cm/sec . Distal abdominal aorta 1.70 x 1.74 cm . Distal abdominal aorta peak systolic velocity is 96.6 cm/sec . Interpretation Summary Less than 60% stenosis bilateral renal arteries Right renal length 9.39 cm Left renal length 10.16 cm Maximum aortic diameter 2.17 x 2.17 cm Ordering Physician: Vikram Segura Referring Physician: Vikram Segura Performed By: Elizabeth Myers RVT
== END ==
PROVIDERS: PCP Family Medicine; Referring Provider Family Medicine; Visit Provider Family Medicine
DX: I10 Essential (primary) hypertension (principal)
CPT/HCPCS: 93975

== ENCOUNTER 2020-02-15 13:53 | Outpatient (RCR) | payer MEDICARE, SELFPAY ==
[2019-11-26 22:27] VITALS: BMI 22.0
--- NOTE | 2020-02-15 15:41 | HP.PTEVAL_ITS ---
Patient's Visit Information XAVIER RAHMAN is a 79 year old F referred to Physical Therapy by Dr. Vikram Segura MD with a diagnosis of gait instability, balance concerns. Date of Evaluation: 02/15/20 Physical Therapist: Vikram Hodge, FABRICIOT, OCS, CSCS - Visit Plan Frequency: one f/u visit. Plan: Pt does not wish to come in more than 1x due to large co pay. We will come up with an exercise regimen for her to include HS and gastroc stretches, hip flexor elevation for marching, VOR stance and moving, foam stance ec and forwared weight shift with exit chair. Teach this program next time adn give as safety allows for HEP - Subjective I have no balance. It left me. I have had a couple falls due to dog pulling off stoop. A cat ran by one time. fell one 5 steps one time and brike ribs int he last couple years. Was here last week getting off TM and fell becasue the l eg gave out. No dizzyness. No neuropathy. Did nothing for 6 months due to virus COVID. Missed her workout and balance classes. Has started back with strengthening for last 2 weeks. Mostly onmachines in gym. Sleeping OK. Pain is not an issue. Not employed right now. 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 Dress and basic ADLS and take care of . Stumbles often at home but has nto fallen lately. - Objective Walks I on firm flat surface back to PT, trasnfers I. Steps with one rail I reciprocally but tends to pull with UE, can do them without UE slow and hesitant. HS and gastroc mod tight at -30 90/90 test. weakness in hips at 3+, knees 4 and ankles 4+. reflexes 2/3 patella and achilles. sensation is WNL to gross light touch in LE. coordination to reciprocal toe tapping is good and heel tapping is good. VOR walking is challenging but safe. Two instances of tripping on R toe today while walking and lost in conversation. Pt educated to slow downa nd lift feet higher. Has cane at home that she is willing to use in dark or uneven situations and remind her to slow down. Oculomotor: - skew eye deviation. - ocular tilt. normal pursuit. normal saccades. normal VOR. no symptoms with the above. normal convergence. - Balance Scores Functional Gait Assessment Score: 24 % Disability: 20.0000 CATSIB Score (Max score 120 seconds): 95 - Goals Goal 1:: I approp HEP to minimize future problems Goal Time Frame: 4-6 Weeks Goal 2:: Pt able to verbalize slowing down adn lifting feet higher off ground to minimize fall risk. Goal Time Frame: 2-4 Weeks - Rehabilitation Potential Physical Therapy Diagnosis: gait instability, possible vestibualr balance weakness. Rehabilitation Potential: Fair - Anticipated Interventions Patient/Client Instruction: Educate patient on: Condition, Plan of Care For the Purpose of:: To improve safety with gait Therapeutic Exercise to Include: Balance training, Flexibilty training, Neuromotor development For the Purpose of:: To improve gait and locomotor functions Thank you for the opportunity to evaluate your patient. For Medicare and Medicare HMO plans, please review the plan of care and approve it. It will need to be FAXED BACK to us at [phone] for Medicare purposes. For Medicare only, by signing this I certify the plan of care. Please let me know if there are questions or concerns regarding this plan of care. Physician Signature: Date:
--- NOTE | 2020-03-25 18:16 | HP.PTDCNRP_ITS ---
XAVIER RAHMAN was seen in my office for initial evaluation on 02/15/20. The following Plan of Care was established for this patient: Initial Frequency: one f/u visit. Patient/Client Instruction: Educate patient on: Condition, Plan of Care For the Purpose of:: To improve safety with gait Therapeutic Exercise to Include: Balance training, Flexibilty training, Neuromotor development For the Purpose of:: To improve gait and locomotor functions This patient was last seen in our office 02/15/20. Pertinent comments regarding their Physical therapy will appear below: Pt seen for evaluation and one visit scheduled to teach ex program based on e valuation. Pt cancelled that visit and neglected to reschedule. at this point, it has been over 4 weeks adn I will discontinue due to nonattendance. At this point I will be discontinuing this patient from physical therapy. I would be happy to see this patient again in the future if found appropriate by the physician. Thank you! Vikram Hodge, DPT, OCS, CSCS
== END 2020-02-15 19:00 | disposition home or self-care (01) ==
LOC: PT 13:53
PROVIDERS: PCP Family Medicine; Referring Provider Family Medicine; Visit Provider Family Medicine
DX: R26.89 Other abnormalities of gait and mobility (principal)
CPT/HCPCS: 97162

== ENCOUNTER → 2020-04-07 12:21 | Outpatient (CLI) | payer MEDICARE, SELFPAY ==
[2019-11-26 22:27] VITALS: BMI 22.0
[2020-04-07 15:59] LABS: Absolute Lymphocyte Count 1.28 X10^3/uL (0.83-4.51); Absolute Neutrophil Count 4.2 X10^3/uL (2.0-7.7); Basophil% 1.5 % (0-1); Eosinophil# 0.29 X10^3/uL; Eosinophils% 4.3 % (0-5); Hematocrit 42.3 % (37-47); Lymphocyte # 1.28 X10^3/ul (4.0); Mean Corp Hgb Conc 30.7 g/dL (32-36); Mean Corpuscular Hgb 27.5 pg (27.0-32.0); Mean Corpuscular Volume 89.4 fL (81-99); Monocyte# 0.83 X10^3/uL; Monocyte% 12.3 % (0-10); NRBC Flagged by Analyzer 0 % (0-5); Neutrophil # 4.23 X10^3/uL (2.7-7.7); Neutrophil % 62.6 % (47-70); Platelet Count 242 K/mm3 (150-450); RBC Distribution Width CV 14.9 % (11.6-14.6); RBC Distribution Width SD 48.7 fl (35.1-43.9); Red Blood Count 4.73 M/mm3 (4.2-5.4); White Blood Count 6.8 K/mm3 (4.4-11.0)
[2020-04-07 16:34] LABS: Anion Gap 5 (5-15); BUN 14 mg/dL (7-18); BUN/Creat Ratio 18.7 RATIO (10-20); Calcium,Total 9.6 mg/dL (8.5-10.1); Chloride 107 mmol/L (98-107); Creatinine, Serum 0.75 mg/dL (0.55-1.02); EST Glomerular Filtration Rate 79 mL/min (>60); Est Glom Filt Rate - Afr Amer 96 mL/min (>60); Glucose 80 mg/dL (74-106); Magnesium 2.4 mg/dL (1.6-2.6); Potassium 3.7 mmol/L (3.5-5.1); Sodium Level 139 mmol/L (136-145)
== END ==
PROVIDERS: PCP Family Medicine; Referring Provider Family Medicine; Visit Provider Family Medicine
DX: G25.81 Restless legs syndrome (principal)
CPT/HCPCS: 36415; 80048; 83735; 85025

== ENCOUNTER 2020-04-21 16:52 | Emergency (ER) | payer MEDICARE, SELFPAY ==
[2019-11-26 22:27] VITALS: BMI 22.0
[2020-04-21 16:53] VITALS: BP 176/73; PULSE 68; RESP 15; TEMP 36.3; O2SAT 96; BMI 23.1
--- NOTE | 2020-04-21 16:59 | EKG12_ITS ---
Test Reason : CP Blood Pressure : / mmHG Vent. Rate : 066 BPM Atrial Rate : 066 BPM P-R Int : 142 ms QRS Dur : 086 ms QT Int : 438 ms P-R-T Axes : 023 013 017 degrees QTc Int : 459 ms Normal sinus rhythm Nonspecific ST abnormality Abnormal ECG Confirmed by CLIFF BOONE, MICAELA ([id number]), website/blog editor MIKKI BENNETT ([id number]) on 04/23/2020 9:27:05 AM Referred By: ANTONELLA Confirmed By:MICAELA CORONADO MD
--- NOTE | 2020-04-21 16:59 | ED.VIS.GEN ---
History of Present Illness Chief Complaint: Chest Other Informant: Patient Onset: Today Context: Gradual Onset Timing: Continuous Current Severity: Moderate Maximum Severity: Moderate Narrative: Patient is a 79-year-old female with medical history significant for hypertension presents to the emergency department with right-sided chest wall pain. The patient states she woke this morning with it. She states it is a sharp pain near her ribs. Is worse when she moves or twists. She denies being short of breath. She denies any fevers or chills. She denies any cough. She states she went to her primary care physician. There, they did an EKG. They were concerned for some subtle differences in her ST segments and she was sent in for further evaluation. She states that she does have a history of the same chest wall pain. She is never had heart attack. She denies any heart stents. She states she has been compliant with her medications. She denies any trauma. Prior similar symptoms: Yes Recent Illness/Hospitalization: No Past Medical History - Allergies and Home Meds Allergies/Adverse Reactions: Allergies atorvastatin [From Lipitor] Allergy (Mild, Verified 11/26/19 09:56) muscle aches lisinopril Allergy (Mild, Verified 11/26/19 09:56) cough rosuvastatin [From Crestor] Allergy (Mild, Verified 11/26/19 09:56) muscle aches alendronate sodium [From Fosamax] Allergy (Unknown, Verified 11/26/19 09:56) unknown Sulfa (Sulfonamide Antibiotics) Allergy (Verified 11/26/19 09:56) Rash acetaminophen [From Tylenol] Adverse Reaction (Verified 11/26/19 09:56) restless legs RESTLESS LEGS codeine Adverse Reaction (Verified 11/26/19 09:56) Nausea NSAIDS (Non-Steroidal Anti-Inflamma Adverse Reaction (Verified 11/26/19 09:56) Bleeding Algsizp-Rhl-Xpu Reductase Inhibitor Adverse Reaction (Verified 11/26/19 09:56) Other MUSCLE CRAMPS Primary Care Physician: Vikram Segura MD [Primary Care Provider] - Prior records reviewed: Yes Past Medical History: - - Hypertension, hyperlipidemia Surgical History: noncontributory, - Smoking Status: Former smoker - Family History Sibling Family History: Family History (Last Reviewed 11/26/19 @ 13:30 by Sebastian NATARAJAN, PA) Mother Heart disease CVA (cerebral vascular accident) Father Heart disease Family History: Reports: Asthma - Brother, Stroke Maternal Family History: Family History (Last Reviewed 11/26/19 @ 13:30 by ROSA ISELA Shin) Mother Heart disease CVA (cerebral vascular accident) Father Heart disease Family History: Reports: Heart Disease, Stroke Paternal Family History: Family History (Last Reviewed 11/26/19 @ 13:30 by ROSA ISELA Shin) Mother Heart disease CVA (cerebral vascular accident) Father Heart disease Family History: Reports: Heart Disease Review of Systems General: Denies: Chills, Fever, Sweats Eyes: Denies: Visual changes - bilaterally, Diplopia ENT: Denies: Rhinorrhea, Sore throat Cardiovascular: Denies: Chest pain, Palpitations Respiratory: Denies: Dyspnea, Cough, Dyspnea on exertion Gastrointestinal: Denies: Abdominal pain, Nausea, Vomiting, Diarrhea, Melena, Hematochezia Genitourinary: Denies: Dysuria, Hematuria, Frequency Musculoskeletal: Denies: Back pain, Extremity Pain Skin: Denies: Rash, Wounds Neurological: Denies: Headache, Weakness, Numbness Physical Exam Vital Signs/Narrative: Vital Signs Temp Pulse Resp BP Pulse Ox 04/21/20 16:53 97.4 F L 68 15 176/73 H 96 Inital Vital Signs reviewed: Yes General: Well nourished, Well developed, No Acute Distress Head: Normocephalic, Atraumatic Eyes: Perrl, EOMI ENT: Moist mucous membranes, No rhinorrhea Neck: Supple, Nontender Cardiovascular: Regular rate, Regular rhythm, No murmurs Respiratory: No distress, CTA bilaterally, Chest nontender Abdomen: Soft, Nontender, Nondistended, Normal bowel sounds Back: Nontender, Normal Inspection Extremities: Nontender, No edema Skin: Normal color, No rash Neurological: Alert, Oriented x3, Cranial nerves II-XII grossly intact, Normal Strength, Normal Sensation Psychological: Normal affect, Normal Mood Diagnostic/Tx/Re-eval Abnormal Lab Results 04/21/20 04/21/20 17:15 17:15 WBC 5.8 RBC 4.67 Hgb 12.8 Hct 41.1 MCV 88.0 MCH 27.4 MCHC 31.1 L RDW Std Deviation 47.1 H RDW Coeff of Kierra 14.5 Plt Count 261 MPV 10.0 Immature Gran % (Auto) 0.300 Neut % (Auto) 57.7 Lymph % (Auto) 21.3 [place] % (Auto) 15.5 H Eos % (Auto) 3.8 Baso % (Auto) 1.4 H Absolute Neuts (auto) 3.4 Absolute Lymphs (auto) 1.24 Nucleated RBC % 0 Sodium 141 Potassium 3.7 Chloride 109 H Carbon Dioxide 24.0 Anion Gap 8 BUN 14 Creatinine 0.79 Estim Creat Clear Calc 37.74 Est GFR (MDRD) Af Amer 90 Est GFR (MDRD) Non-Af 74 BUN/Creatinine Ratio 17.7 Glucose 93 Calcium 9.1 Troponin I < 0.015 - Rhythm Strip Rhythm Strip: Sinus Rhythm Rate: 80 Ectopy: None - EKG Initial EKG Interpretation: Sinus Rhythm, No Acute Injury Pattern Prior: Unchanged - Medical Decision Making The patient presents with reproducible right-sided chest wall pain. There was concern because her EKG was different in the office. EKG here shows some mild LVH, but no acute ischemia. Was unchanged from November of this prior year. She is had this constant pain for greater than 12 hours. Cardiac enzymes are normal. Chest x-ray reviewed by myself and the radiologist shows no evidence of fracture, effusion, or other dangerous process. At this point, I do feel the patient is safe for outpatient follow-up. She is comfortable with this plan of care. Impression 1. Chest wall pain ED Disposition - Plan for ED Patient: Instructions: ED Chest Wall Pain, Costochondritis Referrals: Vikram Segura MD [Primary Care Provider] -
[2020-04-21 17:19] VITALS: BP 130/83; PULSE 67; RESP 16; O2SAT 99
--- NOTE | 2020-04-21 17:20 | RAD_ITS ---
STUDY: X-RAY CHEST REASON FOR EXAM: Female, 79 years old. SENT IN BY PCP FOR RIGHT CHEST/RIB AND SHOULDER PAIN. WORSE WITH ANY MOVEMENT. PT STATES SHE SLEEPS ON THAT SIDE. TECHNIQUE: Single AP portable view of the chest. COMPARISON: November 26, 2019 FINDINGS: The lungs are clear and expanded. There is no demonstrated pleural abnormality. Normal size heart. Normal mediastinum and musa. Normal visualized pulmonary arteries. There is atherosclerotic calcification of the aortic arch with tortuosity. There is demineralization of the osseous structures. There are multiple stable healed left rib fractures. There is no demonstrated abnormality of the visualized soft tissue structures of the upper abdomen. RAD/Chest 1 View (Portable) IMPRESSION: No focal infiltrate. Stable left rib fractures. Electronically Signed: Esteban Sánchez MD at 18:58 EST , Service support ,
[2020-04-21 17:38] LABS: Absolute Lymphocyte Count 1.24 X10^3/uL (0.83-4.51); Absolute Neutrophil Count 3.4 X10^3/uL (2.0-7.7); Basophil# 0.08 X10^3/uL; Basophil% 1.4 % (0-1); Eosinophil# 0.22 X10^3/uL; Eosinophils% 3.8 % (0-5); Hematocrit 41.1 % (37-47); Hemoglobin 12.8 g/dL (12.0-15.0); Lymphocyte # 1.24 X10^3/ul (4.0); Lymphocyte % 21.3 % (19-41); Mean Corp Hgb Conc 31.1 g/dL (32-36); Mean Corpuscular Hgb 27.4 pg (27.0-32.0); Monocyte% 15.5 % (0-10); NRBC Flagged by Analyzer 0 % (0-5); Neutrophil # 3.35 X10^3/uL (2.7-7.7); Neutrophil % 57.7 % (47-70); Platelet Count 261 K/mm3 (150-450); RBC Distribution Width CV 14.5 % (11.6-14.6); RBC Distribution Width SD 47.1 fl (35.1-43.9); Red Blood Count 4.67 M/mm3 (4.2-5.4); White Blood Count 5.8 K/mm3 (4.4-11.0)
[2020-04-21 17:43] LABS: Anion Gap 8 (5-15); BUN 14 mg/dL (7-18); BUN/Creat Ratio 17.7 RATIO (10-20); Calcium,Total 9.1 mg/dL (8.5-10.1); Chloride 109 mmol/L (98-107); Creatinine, Serum 0.79 mg/dL (0.55-1.02); EST Glomerular Filtration Rate 74 mL/min (>60); Est Glom Filt Rate - Afr Amer 90 mL/min (>60); Estimated Creatinine Clearance 37.74 ml/min; Glucose 93 mg/dL (74-106); Potassium 3.7 mmol/L (3.5-5.1); Sodium Level 141 mmol/L (136-145)
[2020-04-21 18:26] VITALS: BP 171/80; PULSE 63; RESP 16; O2SAT 99
== END 2020-04-21 18:30 | disposition home or self-care (01) ==
LOC: ED 18:00
PROVIDERS: Emergency Provider Emergency Medicine; PCP Family Medicine
DX: R07.89 Other chest pain (principal); I10 Essential (primary) hypertension; E78.5 Hyperlipidemia, unspecified; Z87.891 Personal history of nicotine dependence; Z82.49 Family history of ischemic heart disease and other diseases of the circulatory system
CPT/HCPCS: 71045; 80048; 84484; 85025; 93005; 99284

== ENCOUNTER 2020-05-15 09:38 | Outpatient (RCR) | payer MEDICARE, SELFPAY | END 2020-05-15 23:59 | LOC: IMMUN 09:38 | PROVIDERS: PCP Family Medicine; Visit Provider Family Medicine | DX: Z23 Encounter for immunization (principal) | CPT/HCPCS: 0011A; 0012A; 91301 ==

== ENCOUNTER → 2020-05-23 12:46 | Outpatient (CLI) | payer MEDICARE, SELFPAY ==
[2020-05-23 15:16] LABS: Absolute Lymphocyte Count 1.05 X10^3/uL (0.83-4.51); Absolute Neutrophil Count 3.9 X10^3/uL (2.0-7.7); Basophil# 0.05 X10^3/uL; Basophil% 0.9 % (0-1); Eosinophil# 0.17 X10^3/uL; Hematocrit 42.3 % (37-47); Hemoglobin 12.8 g/dL (12.0-15.0); Lymphocyte # 1.05 X10^3/ul (4.0); Lymphocyte % 18.3 % (19-41); Mean Corp Hgb Conc 30.3 g/dL (32-36); Mean Corpuscular Volume 89.2 fL (81-99); Monocyte% 10.5 % (0-10); NRBC Flagged by Analyzer 0 % (0-5); Neutrophil # 3.85 X10^3/uL (2.7-7.7); Neutrophil % 67.1 % (47-70); Platelet Count 237 K/mm3 (150-450); RBC Distribution Width CV 14.1 % (11.6-14.6); RBC Distribution Width SD 46.3 fl (35.1-43.9); Red Blood Count 4.74 M/mm3 (4.2-5.4); White Blood Count 5.7 K/mm3 (4.4-11.0)
[2020-05-23 15:56] LABS: AST(SGOT) 25 U/L (15-37); Alanine Aminotransfer ALT/SGPT 26 U/L (13-56); Albumin, Serum 3.8 g/dL (3.2-5.0); Alkaline Phosphatase 117 U/L (45-117); Anion Gap 6 (5-15); BUN 14 mg/dL (7-18); BUN/Creat Ratio 16.9 RATIO (10-20); Calcium,Total 9.3 mg/dL (8.5-10.1); Chloride 106 mmol/L (98-107); Creatinine, Serum 0.83 mg/dL (0.55-1.02); EST Glomerular Filtration Rate 70 mL/min (>60); Est Glom Filt Rate - Afr Amer 85 mL/min (>60); Ferritin 28 ng/mL (8-252); Globulin 3.9 g/dL (2.2-4.2); Glucose 96 mg/dL (74-106); Potassium 3.6 mmol/L (3.5-5.1); Protein, Total 7.7 g/dL (6.4-8.2); Sodium Level 138 mmol/L (136-145)
== END ==
PROVIDERS: PCP Family Medicine; Referring Provider Family Medicine; Visit Provider Family Medicine
DX: G25.81 Restless legs syndrome (principal)
CPT/HCPCS: 36415; 80053; 82728; 85025

== ENCOUNTER → 2020-09-10 16:34 | Outpatient (CLI) | payer MEDICARE, SELFPAY ==
--- NOTE | 2020-09-10 16:37 | RAD_ITS ---
HISTORY: PAIN EXAMINATION/TECHNIQUE: XR Chest 2 Views: 2 views COMPARISON: 03/08/19 FINDINGS: LINES/DEVICES: None. LUNGS: No pulmonary consolidation, mass, or edema. Stable chronic mild blunting left costophrenic angle. MEDIASTINUM AND CARDIOVASCULAR STRUCTURES: Cardiac silhouette not enlarged. Central airways and mediastinal contour are unremarkable. BONES AND SOFT TISSUES: No acute bony abnormalities. RAD/Chest PA and Lateral IMPRESSION: No radiographic evidence of acute cardiopulmonary disease. at 1938 Reported and signed by: Donovan Downs MD Electronically Signed: Donovan Downs MD at 19:37 EDT This report is pending additional review. Service support ,
== END ==
PROVIDERS: PCP Family Medicine; Referring Provider Family Medicine; Visit Provider Family Medicine
DX: M25.511 Pain in right shoulder (principal)
CPT/HCPCS: 71046

== ENCOUNTER 2020-09-22 11:53 | Outpatient (RCR) | payer MEDICARE, SELFPAY ==
--- NOTE | 2020-09-22 13:01 | HP.PTEVAL ---
Patient's Visit Information XAVIER RAHMAN is a 80 year old F referred to Physical Therapy by Dr. Vikram Segura MD with a diagnosis of RIGHT SHOULDER BLADE PAIN,POSTERIOR BACK PAIN. Date of Evaluation: 09/22/20 Physical Therapist: Juan Beard PT, Cert MDT, OCS - Visit Plan Frequency: 1-2x /Week Duration: 6 Weeks Plan: PT INTERVETIONS MODALTIES,RTC/SCAPULAR STREBGTHENING AND POSTURAL EX'S - Subjective This 80 y/o female presents to physical therapy with right shoulder pain and posterior back pain. Patient has had symptoms intermittent for 2 months and symptoms worse past [address] x-rays -. Pain located global shoulder and refers to arm. Aggravating factors moving arm OH lifting ,reaching affects self hygiene and housework tasks. Alleviated MEDS. Denies parathesia/tingling. Pain affects sleeping. Symptoms affects QOL and housework's and ADLS. Patient is described as ache. SOCIAL: . VOCATION: retired - Pain Right Shoulder Pain Intensity (Out of 10): 4 Pain Intensity Range: N/A - Objective POSTURE: mild forward posture rounded shoulders head forward. NEURO: denies parathesia/tingling. PALPATION: tender anterior shoulder. AROM: shoulder flexion 130 degrees pain ,abduction 130 degrees pain, ER 80 , IR scarum. MMT: infraspinatous/subsacpulars 4/5,suptaspinatous 4-/5 mild pain deltoid 4-/5 mild pain. CERVICAL ROM: flexion min loss,roration/lateral flexion min/mod loss,extendion od loss - Special Tests C/S Radiculapathy - Left Upper limb tension test: Negative C/S Radiculapathy - Right Upper limb tension test: Negative C/S Radiculapathy - Left Spurlings: Negative C/S Radiculapathy - Right Spurlings: Negative C/S Radiculapathy - Left Cervical distraction: Negative C/S Radiculapathy - Right Cervical distraction: Negative Sharp Niko: Negative Vertebral Artery Test: Negative Alar Ligament Test: Negative Cervical Sitting: Protrusion - Mechanical Response: No effect Cervical Sitting: Protrusion - Symptoms During Testing: No effect Cervical Sitting: Protrusion - Symptoms After Testing: No effect Cervical Sitting: Retraction - Mechanical Response: No effect Cervical Sitting: Retraction - Symptoms After Testing: No effect Cervical Sitting: Retraction-Extension - Mechanical Response: No effect Cerv Sitting: Retraction-Extension - Symptoms During Testing: No effect Cerv Sitting: Retraction-Extension - Symptoms After Testing: No effect Cervical Sitting: Sidebend Right - Mechanical Response: No effect Cervical Sitting: Sidebend Right - Symptoms During Testing: No effect Cervical Sitting: Sidebend Right - Symptoms After Testing: No effect Cervical Sitting: Sidebend Left - Mechanical Response: No effect Cervical Sitting: Sidebend Left - Symptoms During Testing: No effect Cervical Sitting: Sidebend Left - Symptoms After Testing: No effect Cervical Sitting: Rotation Right - Mechanical Response: No effect Cervical Sitting: Rotation Right - Symptoms During Testing: No effect Cervical Sitting: Rotation Right - Symptoms After Testing: No effect Cervical Sitting: Rotation Left - Mechanical Response: No effect Cervical Sitting: Rotation Left - Symptoms During Testing: No effect Cervical Sitting: Rotation Left - Symptoms After Testing: No effect Cervical Sitting: Flexion - Mechanical Response: No effect Cervical Sitting: Flexion - Symptoms During Testing: No effect Cervical Sitting: Flexion - Symptoms After Testing: No effect R Shoulder Drop Sign - IS Test: Negative R Shoulder Belly Press - SupScap: Negative R Shoulder Neer - Impingement: Positive R Shoulder Justice Tariq - Impingement: Positive R Shoulder Speeds Test - Labrum/Biceps: Negative - Goals Goal 1:: I with HEP Goal Time Frame: 4-6 Weeks Goal 2:: Improve posture for ADLS' Goal Time Frame: 4-6 Weeks Goal 3:: Decrease right shoulder pain by 50% or > to improve function Goal Time Frame: 4-6 Weeks Goal 4:: Patient improve right shoulder ROM symmetrical right > to left for function and ADL'S Goal Time Frame: 4-6 Weeks Goal 5:: Patient increase quick dash by 5 points or > to improve function with ADL'S Goal Time Frame: 4-6 Weeks - Rehabilitation Potential Physical Therapy Diagnosis: This patient has right shoulder pain with possible tendonitis affects ROM ,strength impairs ADLS' and activities above 90 degrees with houseworkm raks Rehabilitation Potential: Good - Anticipated Interventions Patient/Client Instruction: Educate patient on: Condition, Plan of Care For the Purpose of:: To decrease pain, To increase ROM, To improve muscle performance and motor function, To improve ability to perform ADL's, To increase tolerance to activity/condition/position, To improve performance and independence with ADL's, To decrease level of supervision to perform tasks, To improve health of tissue, To decrease soft tissue restriction, To increase flexibility/ROM, To reduce risk of recurrence, To improve ability to perform tasks related to life management Therapeutic Exercise to Include: Strength training, Postural training, Passive ROM, Active ROM, Scapular Strength/Stabilization For the Purpose of:: To decrease pain, To increase ROM, To improve muscle performance and motor function, To improve ability to perform ADL's, To improve health of tissue, To decrease soft tissue restriction, To increase flexibility/ROM, To reduce risk of recurrence, To improve ability to perform tasks related to life management TENS: Yes IF ES: Yes Cryotherapy (ice pack, ice massage): Yes Ultrasound (thermal/non thermal): Yes For the Purpose of:: To decrease pain, To increase ROM, To improve health of tissue, To decrease soft tissue restriction, To increase flexibility/ROM, To reduce risk of recurrence, To improve tolerance to ADL's Thank you for the opportunity to evaluate your patient. For Medicare and Medicare HMO plans, please review the plan of care and approve it. It will need to be FAXED BACK to us at [phone] for Medicare purposes. For Medicare only, by signing this I certify the plan of care. Please let me know if there are questions or concerns regarding this plan of care. Physician Signature: Date:
--- NOTE | 2021-01-21 09:56 | HP.PT.NRP ---
XAVIER RAHMAN was seen in my office for initial evaluation on 09/22/20. The following Plan of Care was established for this patient: Initial Frequency: 1-2x /Week Initial Duration: 6 Weeks Patient/Client Instruction: Educate patient on: Condition, Plan of Care For the Purpose of:: To decrease pain, To increase ROM, To improve muscle performance and motor function, To improve ability to perform ADL's, To increase tolerance to activity/condition/position, To improve performance and independence with ADL's, To decrease level of supervision to perform tasks, To improve health of tissue, To decrease soft tissue restriction, To increase flexibility/ROM, To reduce risk of recurrence, To improve ability to perform tasks related to life management Therapeutic Exercise to Include: Strength training, Postural training, Passive ROM, Active ROM, Scapular Strength/Stabilization For the Purpose of:: To decrease pain, To increase ROM, To improve muscle performance and motor function, To improve ability to perform ADL's, To improve health of tissue, To decrease soft tissue restriction, To increase flexibility/ROM, To reduce risk of recurrence, To improve ability to perform tasks related to life management TENS: Yes IF ES: Yes Cryotherapy (ice pack, ice massage): Yes Ultrasound (thermal/non thermal): Yes For the Purpose of:: To decrease pain, To increase ROM, To improve health of tissue, To decrease soft tissue restriction, To increase flexibility/ROM, To reduce risk of recurrence, To improve tolerance to ADL's This patient was last seen in our office . Pertinent comments regarding their Physical therapy will appear below: Patient was seen for PT Buster for right shoulder pain for HEP At this point I will be discontinuing this patient from physical therapy. I would be happy to see this patient again in the future if found appropriate by the physician. Thank you! Juan Beard, PT, Cert MDT, OCS Balance/Gait/Functional tests - Balance/Special Test Scores Quick DASH Score: 50.0000
== END 2020-09-22 19:00 | disposition home or self-care (01) ==
LOC: PT 11:53
PROVIDERS: PCP Family Medicine; Referring Provider Family Medicine; Visit Provider Family Medicine
DX: M25.511 Pain in right shoulder (principal); R07.89 Other chest pain; M54.9 Dorsalgia, unspecified
CPT/HCPCS: 97110; 97162

== ENCOUNTER 2020-09-26 15:50 | Emergency (ER) | payer MEDICARE, SELFPAY ==
[2020-09-26 15:51] VITALS: BP 203/87; PULSE 65; RESP 18; TEMP 36.3; O2SAT 96; BMI 22.6
--- NOTE | 2020-09-26 16:31 | EDS_ITS ---
HPI History of Present Illness Chief Complaint: Hypertension Informant: patient Onset/Context/Timing Onset: Today Narrative Narrative: Patient presents secondary to high blood pressure. Patient noted today that she has not had much energy recently. She has not been using her blood pressure cuff recently stating it did not work right. She did check it today and noted to be quite high. [facility] and they noted her blood pressure to be high and she was sent to the emergency room. Other than feeling fatigued she denies any other symptoms. She does admit to drinking iced coffee today. 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 HTN (hypertension) Hypercholesterolemia Hypertension Hypothyroidism Inferior pubic ramus fracture right breast cancer Vitamin D deficiency Home Medications albuterol sulfate 2 puff INHALATION Q4H PRN PRN 11/02/18 [History Last Taken Unknown] ae-ugb-dymub-calcium carb-K1 1 ea PO BID 11/02/18 [History Last Taken 11/25/19 08:00] pantoprazole 40 mg PO BID 11/02/18 [History Last Taken 11/25/19 22:00] fluoxetine 20 mg PO QHS 11/26/19 [History Last Taken Unknown] levocetirizine 5 mg PO QHS 11/26/19 [History Last Taken 11/25/19 22:00] magnesium oxide 400 mg PO DAILY 11/26/19 [History Last Taken 11/25/19 08:00] potassium citrate 1,080 mg PO DAILY 11/26/19 [History Last Taken Unknown] hydrochlorothiazide 12.5 mg PO DAILY #15 tab 11/27/19 [Rx Last Taken Unknown] losartan 100 mg PO DAILY #30 tab 11/27/19 [Rx Last Taken Unknown] metoprolol tartrate 50 mg PO BID #60 tab 11/27/19 [Rx Last Taken Unknown] Allergy/AdvReac Type Severity Reaction Status Date / Time atorvastatin [From Lipitor] Allergy Mild muscle Verified 09/26/20 15:53 aches lisinopril Allergy Mild cough Verified 09/26/20 15:53 rosuvastatin [From Crestor] Allergy Mild muscle Verified 09/26/20 15:53 aches alendronate sodium Allergy Unknown unknown Verified 09/26/20 15:53 [From Fosamax] Sulfa (Sulfonamide Allergy Rash Verified 09/26/20 15:53 Antibiotics) acetaminophen [From Tylenol] AdvReac restless Verified 09/26/20 15:53 legs codeine AdvReac Nausea Verified 09/26/20 15:53 NSAIDS (Non-Steroidal AdvReac Bleeding Verified 09/26/20 15:53 Anti-Inflamma Qlgoxxl-Oud-Yxy Reductase AdvReac Other Verified 09/26/20 15:53 Inhibitor Family History Mother Heart disease CVA (cerebral vascular accident) Father Heart disease Surgical History history excisional breast biopsy right (~11/08/18) History of hysterectomy History of left mastoidectomy History of lumpectomy of right breast History of right hip replacement History of right hip replacement History of thyroid surgery Social History Smoking Status: Former smoker alcohol intake: current alcohol intake frequency: a few times a month substance use type: does not use ROS ROS ED Constitutional Constitutional ED: Denies chills or fever(s) Eyes Eyes: Denies change in vision ENT ENT ED: Denies sore throat Cardiovascular Cardiovascular: Denies chest pain Respiratory/Chest Respiratory/Chest: Denies cough or dyspnea Gastrointestinal Gastrointestinal: Denies abdominal pain, diarrhea, nausea or vomiting Genitourinary Genitourinary ED: Denies dysuria Musculoskeletal Musculoskeletal: Denies back pain Integumentary Denies rash Neurologic Neurologic: Reports other Details: Generalized fatigue ; Denies headache(s) or weakness Psychiatric Psychiatric: Denies anxiety or depression Endocrine Endocrinology: Denies polydipsia or polyuria Allergic/Immunologic Allergic/Immunologic ED: Denies urticaria EXAM Physical Exam Const Vital Signs: 09/26/20 15:51 09/26/20 16:07 09/26/20 17:11 Temperature 97.4 F L Temperature Source Temporal Pulse Rate 65 65 Respiratory Rate 18 20 H Respiratory Effort Normal Respiratory Pattern Normal Blood Pressure 203/87 H 195/94 H Blood Pressure Mean 125 127 Pulse Ox 96 96 Oxygen Delivery Method Room Air Room Air Positive well nourished and well developed General Appearance ED: well developed HEENT Reports normocephalic and head/scalp atraumatic Eyes PERRL and EOMs intact bilaterally Neck supple Chest Wall inspection of chest normal and palpation of chest normal Resp normal respiratory effort and clear to auscultation bilaterally Cardio regular rate and regular rhythm GI normal to inspection, nondistended, normoactive bowel sounds Palpation: soft Back/Spine no CVA tenderness Extremity normal to inspection Neuro oriented x3 and no sensory deficits noted Sensorium / Orientation: alert Motor Exam: strength 5/5 throughout Psych mental status grossly normal Skin no rashes or lesions noted MDM MDM MDM Narrative Medical decision making narrative: Patient has no symptoms of hypertension at this time. EKG and labs were obtained. Patient is given 10 mg of IV labetalol. Lab Data Labs: Laboratory Results - last 24 hr 09/26/20 09/26/20 16:55 16:55 WBC 6.4 RBC 4.71 Hgb 13.1 Hct 41.5 MCV 88.1 MCH 27.8 MCHC 31.6 L RDW Std Deviation 49.7 H RDW Coeff of Kierra 15.2 H Plt Count 252 MPV 9.5 Immature Gran % (Auto) 0.300 Neut % (Auto) 63.0 Lymph % (Auto) 21.1 [place] % (Auto) 11.0 H Eos % (Auto) 3.5 Baso % (Auto) 1.1 H Absolute Neuts (auto) 4.0 Absolute Lymphs (auto) 1.34 Nucleated RBC % 0 Sodium 139 Potassium 4.1 Chloride 107 Carbon Dioxide 27.0 Anion Gap 5 BUN 14 Creatinine 0.96 Estim Creat Clear Calc 38.66 Est GFR (MDRD) Af Amer 71 Est GFR (MDRD) Non-Af 59 L BUN/Creatinine Ratio 14.5 Glucose 98 Calcium 9.9 TSH 1.64 Radiography Diagnostic Testing: Radiology Impression Chest X-Ray 09/26/20 17:32 IMPRESSION: No acute cardiopulmonary process. Electronically Signed: Jude Damon MD at 18:12 EDT Tel , Service support , EKG Initial EKG: Attestation: I personally reviewed and interpreted this EKG as follows: Interpretation: Sinus Bradycardia (Sinus bradycardia at 58 bpm. No acute ischemia.) Treatment and Re-Evaluation Comments:: On repeat evaluation patient's most recent blood pressures are still elevated between 200-210 systolic. She be given 0.1 mg of p.o. clonidine. Shortly after I saw the patient did find me in the hallway. He states the patient has early dementia and he is concerned that she might not be taking her medications as scheduled. In light of this I am reluctant to adjust her blood pressure medications as I do not want her to take too many. I encouraged her to keep a journal of her blood pressures twice a day and follow-up with her doctor next week to review these. Discharge Plan Triage Chief Complaint: Hypertension ED Provider: Genny Worley Dx/Rx/DC Orders Clinical Impression: HTN (hypertension) Instructions: ED Hypertension, Established Prescriptions: No Action pantoprazole 40 MG tablet 40 mg PO BID RF: 0 albuterol sulfate 1 INHALER inhaler 2 puff inhalation Q4H PRN PRN (Reason: Sob &/Or Wheezing) RF: 0 yr-lpe-gsgrt-calcium carb-K1 1 EACH tablet 1 ea PO BID RF: 0 fluoxetine 20 MG capsule 20 mg PO QHS RF: 0 levocetirizine 5 MG tablet 5 mg PO QHS RF: 0 magnesium oxide 400 MG capsule 400 mg PO DAILY RF: 0 potassium citrate 10 MEQ tablet extended release 1,080 mg PO DAILY RF: 0 losartan 100 MG tablet 100 mg PO DAILY Qty: 30 RF: 0 hydrochlorothiazide 25 MG tablet 12.5 mg PO DAILY Qty: 15 RF: 0 metoprolol tartrate 50 MG tablet 50 mg PO BID Qty: 60 RF: 0 Primary Care Provider: Vikram Segura Referrals: Vikram Segura MD [Primary Care Provider] - As soon as possible Activity Restrictions/Additional Instructions: Please check your blood pressure twice a day and keep a journal of this. Please follow-up with your doctor soon as possible and take this journal with you to review your blood pressure readings at your appointment. Disposition Disposition: Home, self care
--- NOTE | 2020-09-26 16:31 | EKG12_ITS ---
Test Reason : HTN Blood Pressure : / mmHG Vent. Rate : 058 BPM Atrial Rate : 058 BPM P-R Int : 154 ms QRS Dur : 086 ms QT Int : 424 ms P-R-T Axes : 025 -05 019 degrees QTc Int : 416 ms Sinus bradycardia with sinus arrhythmia Minimal voltage criteria for LVH, may be normal variant Nonspecific ST abnormality Abnormal ECG Confirmed by ANNETTE BOONE, ZACH ([id number]), newspaper or periodical editor MIKKI BENNETT ([id number]) on 09/29/2020 1:37:06 PM Referred By: OSCAR Confirmed By:ZACH BRYANT MD
[2020-09-26] MEDS: Labetalol (Prefilled) 20 MG/4 ML 10 MG IV (17:10)
[2020-09-26 17:11] VITALS: BP 195/94; PULSE 65; RESP 20; O2SAT 96
[2020-09-26 17:16] LABS: Absolute Lymphocyte Count 1.34 X10^3/uL (0.83-4.51); Basophil# 0.07 X10^3/uL; Basophil% 1.1 % (0-1); Eosinophil# 0.22 X10^3/uL; Eosinophils% 3.5 % (0-5); Hematocrit 41.5 % (37-47); Hemoglobin 13.1 g/dL (12.0-15.0); Lymphocyte # 1.34 X10^3/ul (0.83-4.51); Lymphocyte % 21.1 % (19-41); Mean Corp Hgb Conc 31.6 g/dL (32-36); Mean Corpuscular Hgb 27.8 pg (27.0-32.0); Mean Corpuscular Volume 88.1 fL (81-99); Mean Platelet Vol. 9.5 fl (6.2-12.0); NRBC Flagged by Analyzer 0 % (0-5); Neutrophil # 4.01 X10^3/uL (2.7-7.7); Platelet Count 252 K/mm3 (150-450); RBC Distribution Width CV 15.2 % (11.6-14.6); RBC Distribution Width SD 49.7 fl (35.1-43.9); Red Blood Count 4.71 M/mm3 (4.2-5.4); White Blood Count 6.4 K/mm3 (4.4-11.0)
--- NOTE | 2020-09-26 17:32 | RAD_ITS ---
STUDY: X-RAY CHEST REASON FOR EXAM: Female, 80 years old. Pain TECHNIQUE: 1 view COMPARISON: 09/10/2020. FINDINGS: The cardiac silhouette is top normal. Costophrenic angles are sharp. Lungs are clear. The trachea is midline. There is no pneumothorax. Left rib fractures are noted. RAD/Chest 1 View (Portable) IMPRESSION: No acute cardiopulmonary process. Electronically Signed: Jude Damon MD at 18:12 EDT Tel , Service support ,
[2020-09-26 17:33] LABS: Anion Gap 5 (5-15); BUN 14 mg/dL (7-18); BUN/Creat Ratio 14.5 RATIO (10-20); Calcium,Total 9.9 mg/dL (8.5-10.1); Chloride 107 mmol/L (98-107); Creatinine, Serum 0.96 mg/dL (0.55-1.02); EST Glomerular Filtration Rate 59 mL/min (>60); Est Glom Filt Rate - Afr Amer 71 mL/min (>60); Estimated Creatinine Clearance 38.66 ml/min; Glucose 98 mg/dL (74-106); Potassium 4.1 mmol/L (3.5-5.1); Sodium Level 139 mmol/L (136-145); Thyroid Stim Hormone (TSH) 1.64 uIU/mL (0.358-3.74)
[2020-09-26 18:18] VITALS: BP 201/73; PULSE 66; RESP 18; O2SAT 91
[2020-09-26] MEDS: cloNIDine HCl 0.1 MG Tablet PO (18:23)
== END 2020-09-26 18:30 | disposition home or self-care (01) ==
PROVIDERS: Emergency Provider Emergency Medicine; PCP Family Medicine
DX: I10 Essential (primary) hypertension (principal); Z87.891 Personal history of nicotine dependence
CPT/HCPCS: 71045; 80048; 84443; 85025; 93005; 96374; 99285; A4216

== ENCOUNTER → 2020-11-11 08:46 | Outpatient (CLI) | payer MEDICARE, SELFPAY ==
[2020-11-11 10:28] LABS: Absolute Lymphocyte Count 0.89 X10^3/uL (0.83-4.51); Absolute Neutrophil Count 6.1 X10^3/uL (2.0-7.7); Basophil# 0.05 X10^3/uL; Basophil% 0.6 % (0-1); Eosinophil# 0.15 X10^3/uL; Eosinophils% 1.9 % (0-5); Hemoglobin 13.3 g/dL (12.0-15.0); Lymphocyte # 0.89 X10^3/ul (0.83-4.51); Lymphocyte % 11.3 % (19-41); Mean Corp Hgb Conc 31.7 g/dL (32-36); Mean Corpuscular Hgb 28.5 pg (27.0-32.0); Mean Corpuscular Volume 90.1 fL (81-99); Mean Platelet Vol. 10.9 fl (6.2-12.0); Monocyte# 0.69 X10^3/uL; Monocyte% 8.8 % (0-10); NRBC Flagged by Analyzer 0 % (0-5); Neutrophil # 6.06 X10^3/uL (2.7-7.7); Neutrophil % 77.1 % (47-70); Platelet Count 246 K/mm3 (150-450); RBC Distribution Width CV 15.5 % (11.6-14.6); RBC Distribution Width SD 50.9 fl (35.1-43.9); Red Blood Count 4.66 M/mm3 (4.2-5.4); White Blood Count 7.9 K/mm3 (4.4-11.0)
[2020-11-11 10:55] LABS: Vitamin D,25 Hydroxy 43.1 ng/mL
[2020-11-11 11:04] LABS: ALB/GLOB Ratio 0.9 RATIO (0.9-2.4); AST(SGOT) 18 U/L (15-37); Alanine Aminotransfer ALT/SGPT 24 U/L (13-56); Albumin, Serum 3.7 g/dL (3.2-5.0); Alkaline Phosphatase 89 U/L (45-117); Anion Gap 5 (5-15); BUN 13 mg/dL (7-18); BUN/Creat Ratio 17.8 RATIO (10-20); Chloride 111 mmol/L (98-107); Creatinine, Serum 0.73 mg/dL (0.55-1.02); EST Glomerular Filtration Rate 81 mL/min (>60); Est Glom Filt Rate - Afr Amer 99 mL/min (>60); Glucose 96 mg/dL (74-106); Potassium 3.8 mmol/L (3.5-5.1); Protein, Total 7.7 g/dL (6.4-8.2); Sodium Level 140 mmol/L (136-145); Thyroid Stim Hormone (TSH) 1.04 uIU/mL (0.358-3.74)
== END ==
PROVIDERS: PCP Family Medicine Geriatric Medicine; Referring Provider Family Medicine Geriatric Medicine; Visit Provider Family Medicine Geriatric Medicine
DX: I10 Essential (primary) hypertension (principal); E55.9 Vitamin D deficiency, unspecified
CPT/HCPCS: 36415; 80053; 82306; 84443; 85025

== ENCOUNTER → 2020-11-17 16:18 | Outpatient (CLI) | payer MEDICARE, SELFPAY ==
--- NOTE | 2020-11-17 16:27 | RAD_ITS ---
STUDY: X-RAY - ABDOMEN/PELVIS REASON FOR EXAM: Female, 80 years old. DIARRHEA TECHNIQUE: Single AP view of the abdomen / pelvis. COMPARISON: Prior comparison studies are not available for review at this time. FINDINGS: Normal visualized lung bases. There is an unremarkable bowel gas pattern. There is no demonstrated free abdominal air. Small calcifications project over the left renal shadow, likely nephroliths. Normal soft tissue structures. There are diffuse degenerative changes of the visualized lumbar spine. Right hip replacement. Degenerative changes of the left hip. RAD/Abd Inc Decub and/or Erect IMPRESSION: 1. Nonobstructive bowel gas pattern. 2. Suspect left nephrolithiasis. Electronically Signed: Cyrus Pires MD ([place]) at 8:35 EDT , Service support ,
[2020-11-17 18:04] LABS: Anion Gap 7 (5-15); BUN 19 mg/dL (7-18); BUN/Creat Ratio 24.1 RATIO (10-20); Calcium,Total 9.6 mg/dL (8.5-10.1); Chloride 100 mmol/L (98-107); Creatinine, Serum 0.79 mg/dL (0.55-1.02); EST Glomerular Filtration Rate 75 mL/min (>60); Est Glom Filt Rate - Afr Amer 90 mL/min (>60); Glucose 106 mg/dL (74-106); Potassium 3.6 mmol/L (3.5-5.1); Sodium Level 138 mmol/L (136-145)
== END ==
PROVIDERS: PCP Family Medicine Geriatric Medicine; Visit Provider Family Medicine Geriatric Medicine
DX: I10 Essential (primary) hypertension (principal); R19.7 Diarrhea, unspecified
CPT/HCPCS: 36415; 74019; 80048

== ENCOUNTER → 2020-12-03 13:46 | Outpatient (CLI) | payer MEDICARE, SELFPAY ==
[2020-12-03 17:14] LABS: Absolute Lymphocyte Count 1.12 X10^3/uL (0.83-4.51); Absolute Neutrophil Count 4.7 X10^3/uL (2.0-7.7); Basophil# 0.06 X10^3/uL; Basophil% 0.9 % (0-1); Eosinophil# 0.15 X10^3/uL; Eosinophils% 2.1 % (0-5); Hematocrit 39.1 % (37-47); Hemoglobin 12.3 g/dL (12.0-15.0); Lymphocyte # 1.12 X10^3/ul (0.83-4.51); Mean Corp Hgb Conc 31.5 g/dL (32-36); Mean Corpuscular Hgb 28.7 pg (27.0-32.0); Mean Corpuscular Volume 91.4 fL (81-99); Monocyte# 0.96 X10^3/uL; Monocyte% 13.8 % (0-10); NRBC Flagged by Analyzer 0 % (0-5); Neutrophil # 4.67 X10^3/uL (2.7-7.7); Neutrophil % 66.9 % (47-70); Platelet Count 245 K/mm3 (150-450); RBC Distribution Width CV 14.3 % (11.6-14.6); RBC Distribution Width SD 48.2 fl (35.1-43.9); Red Blood Count 4.28 M/mm3 (4.2-5.4)
[2020-12-03 17:24] LABS: Anion Gap 7 (5-15); BUN 11 mg/dL (7-18); BUN/Creat Ratio 19.2 RATIO (10-20); Calcium,Total 8.6 mg/dL (8.5-10.1); Chloride 103 mmol/L (98-107); Creatinine, Serum 0.57 mg/dL (0.55-1.02); EST Glomerular Filtration Rate 108 mL/min (>60); Est Glom Filt Rate - Afr Amer 131 mL/min (>60); Glucose 92 mg/dL (74-106); Sodium Level 134 mmol/L (136-145)
== END ==
PROVIDERS: PCP Family Medicine Geriatric Medicine; Visit Provider Family Medicine Geriatric Medicine
DX: R53.83 Other fatigue (principal)
CPT/HCPCS: 36415; 80048; 85025

== ENCOUNTER → 2020-12-04 09:58 | Outpatient (CLI) | payer MEDICARE, SELFPAY ==
[2020-12-04 12:25] LABS: Absolute Lymphocyte Count 0.98 X10^3/uL (0.83-4.51); Absolute Neutrophil Count 5.4 X10^3/uL (2.0-7.7); Basophil# 0.06 X10^3/uL; Basophil% 0.8 % (0-1); Eosinophil# 0.13 X10^3/uL; Eosinophils% 1.7 % (0-5); Hematocrit 38.7 % (37-47); Hemoglobin 12.4 g/dL (12.0-15.0); Lymphocyte # 0.98 X10^3/ul (0.83-4.51); Lymphocyte % 12.9 % (19-41); Mean Corpuscular Hgb 28.6 pg (27.0-32.0); Mean Corpuscular Volume 89.2 fL (81-99); Mean Platelet Vol. 10.9 fl (6.2-12.0); Monocyte# 0.98 X10^3/uL; Monocyte% 12.9 % (0-10); NRBC Flagged by Analyzer 0 % (0-5); Neutrophil # 5.39 X10^3/uL (2.7-7.7); Neutrophil % 71.3 % (47-70); Platelet Count 261 K/mm3 (150-450); RBC Distribution Width CV 14.2 % (11.6-14.6); RBC Distribution Width SD 46.4 fl (35.1-43.9); Red Blood Count 4.34 M/mm3 (4.2-5.4); White Blood Count 7.6 K/mm3 (4.4-11.0)
== END ==
PROVIDERS: PCP Family Medicine Geriatric Medicine; Visit Provider Family Medicine Geriatric Medicine
DX: K92.0 Hematemesis (principal)
CPT/HCPCS: 36415; 85025

== ENCOUNTER → 2020-12-08 14:52 | Outpatient (CLI) | payer MEDICARE, SELFPAY ==
[2020-12-08 17:02] LABS: Absolute Lymphocyte Count 1.29 X10^3/uL (0.83-4.51); Absolute Neutrophil Count 4.1 X10^3/uL (2.0-7.7); Basophil# 0.07 X10^3/uL; Basophil% 1.1 % (0-1); Eosinophil# 0.24 X10^3/uL; Eosinophils% 3.6 % (0-5); Hematocrit 38.6 % (37-47); Hemoglobin 12.4 g/dL (12.0-15.0); Lymphocyte # 1.29 X10^3/ul (0.83-4.51); Lymphocyte % 19.5 % (19-41); Mean Corp Hgb Conc 32.1 g/dL (32-36); Mean Corpuscular Hgb 28.4 pg (27.0-32.0); Mean Corpuscular Volume 88.5 fL (81-99); Mean Platelet Vol. 10.8 fl (6.2-12.0); Monocyte% 13.6 % (0-10); NRBC Flagged by Analyzer 0 % (0-5); Neutrophil % 61.9 % (47-70); Platelet Count 276 K/mm3 (150-450); RBC Distribution Width CV 13.8 % (11.6-14.6); RBC Distribution Width SD 44.7 fl (35.1-43.9); Red Blood Count 4.36 M/mm3 (4.2-5.4); White Blood Count 6.6 K/mm3 (4.4-11.0)
== END ==
PROVIDERS: PCP Family Medicine Geriatric Medicine; Visit Provider Family Medicine Geriatric Medicine
DX: D64.9 Anemia, unspecified (principal)
CPT/HCPCS: 36415; 85025

== ENCOUNTER → 2020-12-25 13:31 | Outpatient (CLI) | payer MEDICARE, SELFPAY ==
[2020-12-25 13:48] LABS: Absolute Lymphocyte Count 1.27 X10^3/uL (0.83-4.51); Absolute Neutrophil Count 5.8 X10^3/uL (2.0-7.7); Basophil# 0.08 X10^3/uL; Eosinophil# 0.15 X10^3/uL; Eosinophils% 1.8 % (0-5); Hematocrit 40.4 % (37-47); Lymphocyte # 1.27 X10^3/ul (0.83-4.51); Lymphocyte % 15.6 % (19-41); Mean Corp Hgb Conc 32.2 g/dL (32-36); Mean Corpuscular Hgb 28.6 pg (27.0-32.0); Mean Platelet Vol. 9.1 fl (6.2-12.0); Monocyte# 0.85 X10^3/uL; Monocyte% 10.4 % (0-10); NRBC Flagged by Analyzer 0 % (0-5); Neutrophil # 5.76 X10^3/uL (2.7-7.7); Neutrophil % 70.8 % (47-70); Platelet Count 256 K/mm3 (150-450); RBC Distribution Width CV 13.8 % (11.6-14.6); RBC Distribution Width SD 44.7 fl (35.1-43.9); Red Blood Count 4.54 M/mm3 (4.2-5.4); White Blood Count 8.1 K/mm3 (4.4-11.0)
[2020-12-25 14:08] LABS: Anion Gap 4 (5-15); BUN 13 mg/dL (7-18); BUN/Creat Ratio 20.9 RATIO (10-20); Calcium,Total 9.1 mg/dL (8.5-10.1); Chloride 103 mmol/L (98-107); Creatinine, Serum 0.62 mg/dL (0.55-1.02); EST Glomerular Filtration Rate 98 mL/min (>60); Est Glom Filt Rate - Afr Amer 119 mL/min (>60); Glucose 98 mg/dL (74-106); Potassium 3.4 mmol/L (3.5-5.1); Sodium Level 135 mmol/L (136-145)
== END ==
PROVIDERS: PCP Family Medicine Geriatric Medicine; Referring Provider Family Medicine Geriatric Medicine; Visit Provider Family Medicine Geriatric Medicine
DX: I10 Essential (primary) hypertension (principal)
CPT/HCPCS: 36415; 80048; 85025

== ENCOUNTER → 2021-01-15 | Outpatient (CLI) | payer MEDICARE, SELFPAY ==
[2021-01-15 20:35] LABS: Specimen Processing Control TNPT
== END | disposition home or self-care (01) ==
LOC: LABSPEC 13:06
PROVIDERS: PCP Family Medicine Geriatric Medicine; Referring Provider Physician Assistant; Visit Provider Physician Assistant
DX: U07.1 COVID-19 (principal)
CPT/HCPCS: 87635; U0005; U0003

== ENCOUNTER 2021-01-19 13:53 | Outpatient (CLI) | payer MEDICARE, SELFPAY ==
[2021-01-19 14:10] VITALS: BP 155/64; PULSE 72; RESP 16; TEMP 36.6; O2SAT 98; BMI 21.0
[2021-01-19] MEDS: 0.9% Saline Lock 10 ML Syringe IV (14:22)
[2021-01-19 15:04] VITALS: BP 171/62; PULSE 68; RESP 16; TEMP 36.7; O2SAT 100
[2021-01-19 16:04] VITALS: BP 162/58; PULSE 62; RESP 16; TEMP 36.7; O2SAT 98
== END 2021-01-19 16:05 | disposition home or self-care (01) ==
LOC: MS3OUT 13:53 → MS3 13:54
PROVIDERS: PCP Family Medicine Geriatric Medicine; Referring Provider Nurse Practitioner Adult Health; Visit Provider Nurse Practitioner Adult Health
DX: Z23 Encounter for immunization (principal); U07.1 COVID-19
CPT/HCPCS: J7050; M0243; A4216; Q0244

== ENCOUNTER → 2021-02-05 | Outpatient (CLI) | payer MEDICARE, SELFPAY ==
[2021-02-05 14:52] LABS: Red Blood Cells-Urine 0 SEEN /hpf (0-5)
[2021-02-05 17:48] LABS: Color, Urine Yellow (Yellow); Glucose, Dipstick Normal (Normal); Ketone-Dipstick 5 mg/dl (Negative); Leukocyte Esterase-Dipstick 100 /ul (Negative); Nitrite-Dipstick Negative (Negative); Occult Blood-Urine Negative /ul (Negative); Protein-Dipstick 30 mg/dl (Negative); Specific Gravity, Urine 1.015 (1.002-1.030); Urine Bilirubin Dipstick Negative (Negative); Urine Clarity Clear (Clear); Urine Urobilinogen Normal (Normal)
[2021-02-05 17:56] LABS: Bacteria RARE /hpf (None Seen); Mucous, Urine 1+ /hpf (<or=2+); Squamous Epithelial Cells - UA 0-5 SEEN /hpf (5-10); White Blood Cells 0-5 SEEN /hpf (0-5)
== END | disposition home or self-care (01) ==
LOC: LABSPEC 14:49
PROVIDERS: PCP Family Medicine; Referring Provider Family Medicine; Visit Provider Family Medicine
DX: R35.0 Frequency of micturition (principal)
CPT/HCPCS: 81001; 87086; 87088

== ENCOUNTER → 2021-02-18 15:13 | Outpatient (CLI) | payer MEDICARE, SELFPAY ==
--- NOTE | 2021-02-18 15:18 | CT_ITS ---
STUDY: CT ABDOMEN AND PELVIS WITH CONTRAST REASON FOR EXAM: Female, 80 years old. R flank pain and abdominal pain with frequent urine. concern for RADIATION DOSAGE (If Supplied By Facility): CTDIvol = ( 13.50 ) mGy, DLP = ( 477.85 ) mGycm TECHNIQUE: Transaxial images were obtained from the dome of the diaphragm to the symphysis pubis without oral contrast. Oral and amp; IV Readi-CAT and amp; 100mL Isovue-370 was administered. Sagittal and coronal images were reconstructed. Individualized dose optimization techniques were used for this CT. COMPARISON: None. FINDINGS: Mild subsegmental atelectasis in left lower lobe The visualized portions of the heart are within normal limits. Normal liver. Contracted thick-walled gallbladder without calcified stones possibly physiologic however if concern for gallbladder disease ultrasound recommended Normal spleen. Normal pancreas. Normal bilateral adrenal glands. Normal right kidney. There is a parapelvic cyst in the lower pole. There is also an exophytic nodule demonstrating solid consistency measuring approximately 1.15 x 0.75 cm stable since prior exam 07/05/2018 Normal visualized stomach. Normal small intestine. Diverticular disease of the descending and sigmoid colon without evidence for acute diverticulitis.. No evidence for acute appendicitis. Atherosclerotic changes of the aorta without evidence for aneurysm. Normal inferior vena cava. Normal retroperitoneum. Incompletely distended thick-walled prolapsed bladder. Uterus not visualized consistent with hysterectomy Normal abdominal wall. Lumbar spine demonstrates degenerative change. Grade 1 spondylolisthesis at L4-5.. Right hip prosthesis is demonstrated. CT/Abdomen/Pelvis WITH Contrast IMPRESSION: Contracted thick-walled gallbladder without calcified stones likely physiologic however if concern for gallbladder disease ultrasound recommended. Parapelvic cyst in left kidney as well as small solid nodule which is stable since previous study MRI would be helpful for further assessment if clinically warranted No evidence for hydronephrosis or ureteral calculus. No evidence for acute appendicitis Diverticular disease of the colon without evidence for acute diverticulitis Electronically Signed: Jim Castro MD at 16:18 EDT , Service support ,
[2021-02-18 15:45] LABS: CREATININE FINGERSTICK 0.8 mg/dL (0.55-1.02); EGFR FINGERSTICK > 60.0000 mL/min (>60)
== END ==
PROVIDERS: PCP Family Medicine; Visit Provider Family Medicine
DX: R10.9 Unspecified abdominal pain (principal); R35.0 Frequency of micturition
CPT/HCPCS: 74177; Q9967

== ENCOUNTER 2021-02-18 18:08 | Emergency (ER) | payer OTHER, MEDICARE, SELFPAY ==
[2021-02-18 18:10] VITALS: BP 181/81; PULSE 82; RESP 18; TEMP 36.2; O2SAT 97; BMI 22.3
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
[2021-02-18 19:39] VITALS: PULSE 82; RESP 16; O2SAT 98
== END 2021-02-18 19:40 | disposition home or self-care (01) ==
PROVIDERS: Emergency Provider Emergency Medicine; PCP Family Medicine
DX: Z04.1 Encounter for examination and observation following transport accident (principal); I10 Essential (primary) hypertension; E78.00 Pure hypercholesterolemia, unspecified; M19.90 Unspecified osteoarthritis, unspecified site; Z79.899 Other long term (current) drug therapy; Z87.891 Personal history of nicotine dependence; R10.9 Unspecified abdominal pain; R35.0 Frequency of micturition
CPT/HCPCS: 74177; 99282; Q9967

== ENCOUNTER → 2021-02-26 12:36 | Outpatient (CLI) | payer MEDICARE, SELFPAY ==
--- NOTE | 2021-02-26 12:38 | BI_ITS ---
MAMMOGRAPHY - BILATERAL SCREENING REASON FOR EXAM: Female, 80 years old. Routine annual screening examination. PERTINENT HISTORY: Personal history of breast cancer. Prior right lumpectomy with radiation treatment. Aunt with breast cancer. TECHNIQUE: Digital bilateral breast milady (3D mammographic acquisition) in the CC and MLO projections. 2-D mediolateral oblique (MLO) and craniocaudad (CC) views of both breasts were obtained. CAD: Full Field Digital Mammography with Computer Added Detection was performed. COMPARISON: Comparison is made with prior study 11/02/2019 and 11/08/2018. FINDINGS: Breast Composition: The breasts are heterogeneously dense, which may obscure small masses. There are no dominant masses or suspicious calcifications. Once again, the patient is status post lumpectomy of the upper outer quadrant of the right breast with postoperative skin changes and scarring. No other significant abnormalities are identified. There has been no significant change since the prior study. BI/SCRN MAMM (CAD)W/MILADY BILAT IMPRESSION: Stable bilateral screening mammogram. Yearly follow-up mammogram recommended. (A) ASSESSMENT CATEGORY: BIRADS Category 2: Benign. A letter regarding these results will be sent to the patient by the facility within 30 days. Approximately 10% of breast cancers are not detected by mammography. A normal mammogram should not delay biopsy of a clinically suspicious abnormality. [id number] Electronically Signed: Willard Flaherty MD at 13:50 EST , Service support ,
== END ==
PROVIDERS: PCP Family Medicine; Referring Provider Family Medicine; Visit Provider Family Medicine
DX: Z12.31 Encounter for screening mammogram for malignant neoplasm of breast (principal); Z85.3 Personal history of malignant neoplasm of breast
CPT/HCPCS: 77063; 77067

== ENCOUNTER → 2021-11-17 | Outpatient (CLI) | payer MEDICARE, SELFPAY ==
[2021-11-17 17:59] LABS: Absolute Lymphocyte Count 1.32 X10^3/uL (0.83-4.51); Absolute Neutrophil Count 3.4 X10^3/uL (2.0-7.7); Basophil# 0.08 X10^3/uL; Basophil% 1.4 % (0-1); Eosinophil# 0.16 X10^3/uL; Eosinophils% 2.8 % (0-5); Hematocrit 40.5 % (37-47); Hemoglobin 13.3 g/dL (12.0-15.0); Lymphocyte # 1.32 X10^3/ul (0.83-4.51); Lymphocyte % 23.2 % (19-41); Mean Corp Hgb Conc 32.8 g/dL (32-36); Mean Corpuscular Hgb 28.9 pg (27.0-32.0); Mean Corpuscular Volume 87.9 fL (81-99); Mean Platelet Vol. 10.7 fl (6.2-12.0); Monocyte# 0.71 X10^3/uL; Monocyte% 12.5 % (0-10); NRBC Flagged by Analyzer 0 % (0-5); Neutrophil % 59.7 % (47-70); Platelet Count 264 K/mm3 (150-450); RBC Distribution Width CV 14.9 % (11.6-14.6); Red Blood Count 4.61 M/mm3 (4.2-5.4); White Blood Count 5.7 K/mm3 (4.4-11.0)
[2021-11-17 18:10] LABS: Vitamin D,25 Hydroxy 42.5 ng/mL
[2021-11-17 18:21] LABS: ALB/GLOB Ratio 0.9 RATIO (0.9-2.4); AST(SGOT) 28 U/L (15-37); Alanine Aminotransfer ALT/SGPT 28 U/L (13-56); Albumin, Serum 3.7 g/dL (3.2-5.0); Alkaline Phosphatase 89 U/L (45-117); Anion Gap 8 (5-15); BUN 14 mg/dL (7-18); BUN/Creat Ratio 13.1 RATIO (10-20); Calcium,Total 9.2 mg/dL (8.5-10.1); Chloride 100 mmol/L (98-107); Creatinine, Serum 1.07 mg/dL (0.55-1.02); EST Glomerular Filtration Rate 52 mL/min (>60); Est Glom Filt Rate - Afr Amer 63 mL/min (>60); Globulin 3.9 g/dL (2.2-4.2); Glucose 154 mg/dL (74-106); Magnesium 1.9 mg/dL (1.6-2.6); Potassium 3.1 mmol/L (3.5-5.1); Protein, Total 7.6 g/dL (6.4-8.2); Sodium Level 134 mmol/L (136-145)
== END | disposition home or self-care (01) ==
LOC: MFPLAB 15:33
PROVIDERS: Family Medicine; PCP Family Medicine; Referring Provider Family Medicine; Visit Provider Family Medicine
DX: M62.838 Other muscle spasm (principal); E55.9 Vitamin D deficiency, unspecified
CPT/HCPCS: 36415; 80053; 82306; 83735; 85025

== ENCOUNTER → 2021-12-17 | Outpatient (CLI) | payer MEDICARE, SELFPAY ==
[2021-12-17 13:00] LABS: ALB/GLOB Ratio 0.9 RATIO (0.9-2.4); AST(SGOT) 18 U/L (15-37); Alanine Aminotransfer ALT/SGPT 25 U/L (13-56); Albumin, Serum 3.7 g/dL (3.2-5.0); Alkaline Phosphatase 92 U/L (45-117); Anion Gap 8 (5-15); BUN 9 mg/dL (7-18); BUN/Creat Ratio 10.9 RATIO (10-20); Calcium,Total 9.2 mg/dL (8.5-10.1); Chloride 98 mmol/L (98-107); Cholesterol 214 mg/dL (200); Creatinine, Serum 0.83 mg/dL (0.55-1.02); EST Glomerular Filtration Rate 70 mL/min (>60); Est Glom Filt Rate - Afr Amer 85 mL/min (>60); Globulin 3.9 g/dL (2.2-4.2); Glucose 87 mg/dL (74-106); High Density Lipoprotein 56 mg/dL; Potassium 3.7 mmol/L (3.5-5.1); Protein, Total 7.6 g/dL (6.4-8.2); Sodium Level 133 mmol/L (136-145); Thyroid Stim Hormone (TSH) 1.03 uIU/mL (0.358-3.74); Triglycerides 187 mg/dL; Very Low Density Lipoprotein 37 mg/dL (5-40)
== END | disposition home or self-care (01) ==
PROVIDERS: PCP Family Medicine; Visit Provider Family Medicine
DX: E87.6 Hypokalemia (principal); E03.9 Hypothyroidism, unspecified
CPT/HCPCS: 36415; 80048; 80053; 80061; 84443

== ENCOUNTER → 2022-03-03 | Outpatient (CLI) | payer MEDICARE, SELFPAY ==
--- NOTE | 2022-03-03 11:30 | BI_ITS ---
MAMMOGRAPHY - BILATERAL SCREENING REASON FOR EXAM: Female, 81 years old. Routine annual screening examination. PERTINENT HISTORY: Personal history of breast cancer. Prior lumpectomy with radiation treatment. Aunt with breast cancer. TECHNIQUE: Digital bilateral breast milady (3D mammographic acquisition) in the CC and MLO projections. 2-D mediolateral oblique (MLO) and craniocaudad (CC) views of both breasts were obtained. CAD: Full Field Digital Mammography with Computer Added Detection was performed. COMPARISON: Comparison is made with prior study 02/26/2021 and 11/02/2019. FINDINGS: Breast Composition: The breasts are heterogeneously dense, which may obscure small masses. There are no dominant masses or suspicious calcifications. Once again, the patient is status post lumpectomy in the deep upper lateral aspect of the right breast with resultant postoperative scarring and overlying skin thickening. No other significant abnormalities are identified. There has been no significant change since the prior study. BI/SCRN MAMM (CAD)W/MILADY BILAT IMPRESSION: Stable bilateral screening mammogram. Yearly follow-up mammogram recommended. (A) ASSESSMENT CATEGORY: BIRADS Category 2: Benign. A letter regarding these results will be sent to the patient by the facility within 30 days. Approximately 10% of breast cancers are not detected by mammography. A normal mammogram should not delay biopsy of a clinically suspicious abnormality. [id number] Electronically Signed: Willard Flaherty MD at 13:12 EST ,
--- NOTE | 2022-03-03 11:31 | BD_ITS ---
STUDY: DUAL ENERGY X-RAY ABSORPTIOMETRY / DXA REASON FOR EXAM: Female, 81 years old. OSTEO TECHNIQUE: Bone Mineral Density (BMD) measurements of lumbar spine and left hip were obtained. COMPARISON: Comparison is made with prior study dated 10/08/2008. FINDINGS: Lumbar Spine (L1-L4): g/cm2 (0.991) / T-score (-0.2) / Z-score (2.4) Findings are suggestive of normal bone density with a low fracture risk. Left Femur Total: g/cm2 (0.541) / T-score (-3.3) / Z-score (-1.1) Left Femoral Neck: g/cm2 (0.660) / T-score (-1.7) / Z-score (0.7) The T-Scores on the most recent prior examination were: Lumbar Spine (L1-L4): There has been improvement of bone density since the previous examination. Left Femur Total: which represents a worsening of 18%. BD/Dexa Bone Density Study IMPRESSION: The patient is considered osteoporotic as outlined below according to World [place] Organization (WHO) criteria with a high fracture risk. There has been worsening of bone density since the previous examination. Reference Information: The T-score is the number of standard deviations above or below the standard which is normal for young adults at their peak bone mineral density. The World Health Organization (WHO) interprets the T-scores as follows: Above -1 Normal bone density Between -1 and -2.5 Osteopenia Equal to / or below -2.5 Osteoporosis As a practical clinical guideline, osteopenia may be graded as follows: Mild -1 through -1.5 Moderate -1.6 through -2.0 Severe -2.1 through -2.4 The Z-score is the number of standard deviations above or below age-matched controls. A Z-score of less than -1.5 would be considered abnormal. References: 1. NIH Osteoporosis and Related Bone Diseases www osteo.org 2. International Society for Clinical Densitometry www iscd.org 3. National Osteoporosis Foundation www nof.org Electronically Signed: Willard Flaherty MD at 11:03 EST ,
== END | disposition home or self-care (01) ==
LOC: OPBD 11:24
PROVIDERS: PCP Family Medicine; Referring Provider Family Medicine; Visit Provider Family Medicine
DX: Z12.31 Encounter for screening mammogram for malignant neoplasm of breast (principal); M81.0 Age-related osteoporosis without current pathological fracture; Z85.3 Personal history of malignant neoplasm of breast
CPT/HCPCS: 77063; 77067; 77080

== ENCOUNTER → 2022-05-11 | Outpatient (CLI) | payer MEDICARE, SELFPAY ==
[2022-05-11 18:48] LABS: Anion Gap 9 (5-15); BUN 15 mg/dL (7-18); BUN/Creat Ratio 17.4 RATIO (10-20); Calcium,Total 9.5 mg/dL (8.5-10.1); Chloride 99 mmol/L (98-107); Creatinine, Serum 0.86 mg/dL (0.55-1.02); EST Glomerular Filtration Rate 67 mL/min (>60); Est Glom Filt Rate - Afr Amer 81 mL/min (>60); Glucose 118 mg/dL (74-106); Potassium 3.5 mmol/L (3.5-5.1); Sodium Level 137 mmol/L (136-145)
== END | disposition home or self-care (01) ==
LOC: MFPLAB 14:06
PROVIDERS: PCP Family Medicine; Referring Provider Family Medicine; Visit Provider Family Medicine
DX: I10 Essential (primary) hypertension (principal)
CPT/HCPCS: 36415; 80048

== ENCOUNTER 2022-06-13 17:09 | Inpatient (IN) | payer MEDICARE, SELFPAY ==
[2022-06-13 17:10] VITALS: BP 201/99; PULSE 87; RESP 14; TEMP 36.8; O2SAT 99; BMI 23.6
[2022-06-13 17:24] VITALS: BP 120/99
--- NOTE | 2022-06-13 17:35 | CT_ITS ---
We are attempting to reach an attending provider to discuss findings. An addendum with communication details will be sent when the communication is complete. STUDY: CT BRAIN WITHOUT CONTRAST REASON FOR EXAM: Female, 82 years old. Mental status change RADIATION DOSAGE (If Supplied By Facility): CTDIvol = ( 44.99 ) mGy, DLP = ( 796.11 ) mGycm TECHNIQUE: Transaxial CT imaging of the brain was performed without administration of intravenous contrast material. Individualized dose optimization techniques were used for this CT. COMPARISON: 11/26/2019. FINDINGS: Normal soft tissue structures. Normal calvarium. There is moderate cerebral atrophy with widening of the extra-axial spaces and ventricular dilatation. There are areas of decreased attenuation within the white matter tracts of the supratentorial brain, consistent with microvascular disease changes. There is no intracranial hemorrhage. Small, acute right parietal infarct. This is new compared to the prior study. Normal visualized paranasal sinuses. CT/Brain/Head without Contrast IMPRESSION: Acute right parietal infarct. Microvascular ischemic changes. Atrophy. Electronically Signed: Janna Das MD at 19:27 EST Reading Location ID and State: [id number] / Tel , Service support ,
--- NOTE | 2022-06-13 17:35 | EKG12_ITS ---
Test Reason : CONFUSION Blood Pressure : / mmHG Vent. Rate : 079 BPM Atrial Rate : 079 BPM P-R Int : 152 ms QRS Dur : 082 ms QT Int : 366 ms P-R-T Axes : 023 006 055 degrees QTc Int : 419 ms Normal sinus rhythm ST & T wave abnormality Abnormal ECG Confirmed by ANNETTE BOONE, ZACH ([id number]), editor school photograph MIKKI BENNETT ([id number]) on 06/15/2022 9:45:21 AM Referred By: Confirmed By:ZACH BRYANT MD
[2022-06-13 17:51] LABS: Hematocrit 41.1 % (37-47); Hemoglobin 13.3 g/dL (12.0-15.0); Mean Corp Hgb Conc 32.4 g/dL (32-36); Mean Corpuscular Hgb 28.2 pg (27.0-32.0); Mean Corpuscular Volume 87.3 fL (81-99); Mean Platelet Vol. 10.9 fl (6.2-12.0); Platelet Count 270 K/mm3 (150-450); RBC Distribution Width CV 14.6 % (11.6-14.6); RBC Distribution Width SD 46.8 fl (35.1-43.9); Red Blood Count 4.71 M/mm3 (4.2-5.4); White Blood Count 7.1 K/mm3 (4.4-11.0)
--- NOTE | 2022-06-13 17:51 | EX.ED.DYSGE1 ---
HPI History of Present Illness Chief Complaint: Confusion Narrative Narrative: 82-year-old female past medical history of Alzheimer's dementia, early-stage diagnosed for a few years, presents with mental status change and slurred speech. She has had problems with insomnia, and it was reported by her daughter that the patient's eldest daughter gave her an edible THC 2 days ago to help her sleep. Patient claims it was only a quarter of an edible, but the daughter that is present is unsure how many she had actually taken. She woke up yesterday with slurred speech, drooling, and confusion. While it was reported that the patient always has baseline slurred speech, yesterday she was very slow to respond. Patient has not slept well for quite some time. Daughter states that patient texted her this afternoon about an hour ago stating that something was not right, and that she felt Whirly in the head. Her states that she has had a cough for years, but over the last few months it has become more productive. Patient denies any fevers or chills. No dysuria or hematuria. She somewhat sarcastically states that she is here because she is confused. [facility] Medical History (Updated 06/13/22 @ 20:58 by Charles Contreras MD) Alzheimer's dementia Anxiety and depression Arthritis COPD (chronic obstructive pulmonary disease) Ductal carcinoma in situ (DCIS) of right breast GERD (gastroesophageal reflux disease) History of GI bleed HTN (hypertension) Hypercholesterolemia Hypothyroidism Vitamin D deficiency Home Medications albuterol sulfate 90 mcg/actuation aerosol inhaler 2 puff inhalation Q4H PRN PRN Sob &/Or Wheezing 11/02/18 [History Last Taken Unknown] choxmxxm-frs-saaaw ac 400 mcg-calcium carb 500 mg-vit K1 20 mcg tablet 1 ea PO BID VITAMIN 11/02/18 [History Last Taken 11/25/19 08:00] fluoxetine 20 mg capsule 20 mg PO QHS depression 11/26/19 [History Last Taken Unknown] levocetirizine 5 mg tablet 5 mg PO QHS Check with primary doctor 11/26/19 [History Last Taken 11/25/19 22:00] magnesium oxide 400 mg PO DAILY suppliment 11/26/19 [History Last Taken 11/25/19 08:00] potassium citrate 10 mEq (1,080 mg) tablet,extended release 1,080 mg PO DAILY suppliment 11/26/19 [History Last Taken Unknown] hydrochlorothiazide 25 mg tablet 12.5 mg PO DAILY #15 tabs 11/27/19 [Rx Last Taken Unknown] losartan 100 mg tablet 100 mg PO DAILY #30 tabs 11/27/19 [Rx Last Taken Unknown] metoprolol tartrate 50 mg tablet 50 mg PO BID #60 tabs 11/27/19 [Rx Last Taken Unknown] Allergy/AdvReac Type Severity Reaction Status Date / Time atorvastatin [From Lipitor] Allergy Mild muscle Verified 06/13/22 17:13 aches lisinopril Allergy Mild cough Verified 06/13/22 17:13 rosuvastatin [From Crestor] Allergy Mild muscle Verified 06/13/22 17:13 aches alendronate sodium Allergy Unknown unknown Verified 06/13/22 17:13 [From Fosamax] Sulfa (Sulfonamide Allergy Rash Verified 06/13/22 17:13 Antibiotics) codeine AdvReac Nausea Verified 06/13/22 17:13 NSAIDS (Non-Steroidal AdvReac Bleeding Verified 06/13/22 17:13 Anti-Inflamma Vuwnocy-GDP-GgV Reductase AdvReac Other Verified 06/13/22 17:13 Inhibitor [Txvizla-Xsv-Gqc Reductase Inhibitor] Family History Mother Heart disease CVA (cerebral vascular accident) Father Heart disease Surgical History (Updated 06/13/22 @ 20:[address] Emily Verdugo MD) History of hysterectomy History of left mastoidectomy History of lumpectomy of right breast History of right hip replacement History of right hip replacement History of thyroid surgery Social History (Updated 06/13/22 @ 20:[address] Emily Verdugo MD) household members: spouse Smoking Status: Former smoker how long ago did patient quit smoking: Quit ~ 24-25 years prior. alcohol intake: current alcohol intake frequency: a few times a month details: 1 drink/[place] nightly. substance use type: other details: Given THC chew per her family for sleep but prior no substance use. ROS ROS ED ROS Narrative Constitutional: No fever, no chills. HEENT: No sore throat. No neck pain. No loss of vision. No rhinorrhea. Cardiovascular: No chest pain. No palpitations. No pedal edema. Respiratory: No cough, no shortness of breath. Abdominal: No abdominal pain. No nausea. No vomiting. Genitourinary: No dysuria. No hematuria. Musculoskeletal: No myalgias. No arthralgias. Neurologic: No headaches. No dizziness. No lightheadedness. Reported confusion, slurred speech, and drooling yesterday. Skin: No rash. No change in color. Psychiatric: No depression. No anxiety. Positive insomnia. EXAM Physical Exam Narrative Exam Narrative: Afebrile. Vital signs noted. HEENT: Normocephalic. Atraumatic. PERRL, EOMI. Neck soft and supple. No point tenderness or step off. Cardiovascular: Regular rate and rhythm. No murmurs, rubs, or gallops appreciated. Respiratory: No tachypnea. Lungs clear to auscultation bilaterally. Gastrointestinal: Abdomen soft, nontender, with normoactive bowel sounds. No rebound or guarding. Neurological: Awake. Alert. Nonfocal, nonlateralizing. NIH stroke scale is 0, however she may have slightly slurred speech, but according to her daughter this is baseline. Skin: No rash. Normal color. No pallor. Musculoskeletal: No pedal edema. Full range of motion extremities. Const Vital Signs: 06/13/22 17:10 06/13/22 17:24 06/13/22 20:03 Temperature 98.2 F Temperature Source Temporal Pulse Rate 87 80 Respiratory Rate 14 15 Blood Pressure 201/99 H 120/99 H 144/74 H Blood Pressure Mean 133 106 97 Pulse Ox 99 98 Oxygen Delivery Method Room Air Room Air MDM MDM [facility] Narrative Medical decision making narrative: I do feel that there may be some component of dementia, in combination with the use of the edible THC products that is causing the patient's symptoms. While she states that she took it 2 days ago, it is unsure if she had taken more, or even any today. Comprehensive work-up was pursued. I will obtain a CT of the brain to make sure she does not have a stroke that would show up on CT, although her NIH stroke scale is 0. I will look for signs of infection in the urine or pneumonia that could be causing a mental status change. I also obtained a urine for drugs of abuse. CMP was obtained to look for electrolyte imbalance or dehydration. She will be bolused normal saline 1 L intravenously. Chest x-ray interpreted by myself shows no evidence of an acute cardiopulmonary process, no pneumonia, no pneumothorax. I reviewed the radiology report which confirms this. In review of her laboratories, she has a normal white count of 7.1, hemoglobin normal at 13.3 hematocrit 41.1. Platelet count normal at 270. Sodium slightly low at 133 with a chloride of 96. BUN and creatinine are normal. Urinalysis shows no evidence of infection. I do not feel antibiotics are indicated. Urine for drugs of abuse is negative. CT of the brain does show an acute right parietal stroke. Her NIH stroke scale is 0. Coags were added. She passed her dysphagia screen. She was complaining of leg cramping and thigh cramping so she is given Tylenol. She has allergies to NSAIDs, however I discussed patient with Dr. Verdugo for admission to the PCU for her acute stroke. She requested that she be given aspirin. I feel she can be admitted for further work-up of her stroke. Disposition is admit in stable condition. Lab Data Attestation: I reviewed the patient's lab results. Labs: Laboratory Results - last 24 hr 06/13/22 06/13/22 06/13/22 17:45 17:47 17:47 WBC 7.1 RBC 4.71 Hgb 13.3 Hct 41.1 MCV 87.3 MCH 28.2 MCHC 32.4 RDW Std Deviation 46.8 H RDW Coeff of Kierra 14.6 Plt Count 270 MPV 10.9 PT INR APTT Sodium 133 L Potassium 3.5 Chloride 96 L Carbon Dioxide 26.0 Anion Gap 11 BUN 10 Creatinine 0.82 Estim Creat Clear Calc 43.76 Est GFR (MDRD) Af Amer 86 Est GFR (MDRD) Non-Af 71 BUN/Creatinine Ratio 12.2 Glucose 111 H Calcium 10.0 Magnesium 2.0 Total Bilirubin 0.50 AST 31 ALT 23 Alkaline Phosphatase 79 Total Protein 8.4 H Albumin 4.2 Globulin 4.2 Albumin/Globulin Ratio 1.0 Urine Color Urine Clarity Urine pH Ur Specific [place] Urine Protein Urine Glucose (UA) Urine Ketones Urine Occult Blood Urine Nitrite Urine Bilirubin Urine Urobilinogen Ur Leukocyte Esterase Urine RBC Urine WBC Ur Squamous Epith Cells Urine Bacteria Urine Mucus Urine Opiates Screen Urine Methadone Screen Ur Barbiturates Screen Ur Phencyclidine Scrn Ur Amphetamines Screen MDMA (Ecstasy) Screen U Benzodiazepines Scrn Urine Cocaine Screen U Cannabinoids Screen Ur Drug Screen Comment 06/13/22 06/13/22 06/13/22 18:52 18:52 19:57 WBC RBC Hgb Hct MCV MCH MCHC RDW Std Deviation RDW Coeff of K[place] Plt Count MPV PT 13.4 INR 1.1 APTT 26.2 Sodium Potassium Chloride Carbon Dioxide Anion Gap BUN Creatinine Estim Creat Clear Calc Est GFR (MDRD) Af Amer Est GFR (MDRD) Non-Af BUN/Creatinine Ratio Glucose Calcium Magnesium Total Bilirubin AST ALT Alkaline Phosphatase Total Protein Albumin Globulin Albumin/Globulin Ratio Urine Color Yellow Urine Clarity Clear Urine pH 7.0 Ur Specific [place] 1.005 Urine Protein Negative Urine Glucose (UA) Normal Urine Ketones Negative Urine Occult Blood Negative Urine Nitrite Negative Urine Bilirubin Negative Urine Urobilinogen Normal Ur Leukocyte Esterase Negative Urine RBC 0 SEEN Urine WBC 0 SEEN Ur Squamous Epith Cells 0-5 SEEN Urine Bacteria 0 SEEN Urine Mucus 0 SEEN Urine Opiates Screen NEGATIVE Urine Methadone Screen NEGATIVE Ur Barbiturates Screen NEGATIVE Ur Phencyclidine Scrn NEGATIVE Ur Amphetamines Screen NEGATIVE MDMA (Ecstasy) Screen NEGATIVE U Benzodiazepines Scrn NEGATIVE Urine Cocaine Screen NEGATIVE U Cannabinoids Screen NEGATIVE Ur Drug Screen Comment Radiography Diagnostic Testing: Clinical Impression(s) from Imaging Studies Brain CT 06/13/22 17:35 IMPRESSION: Acute right parietal infarct. Microvascular ischemic changes. Atrophy. Electronically Signed: Janna Das MD at 19:27 EST Reading Location ID and State: Nadir Auguste MD Tel , Service support , ADDENDUM: 06/13/22 194 IMPRESSION: Acute right parietal infarct. Microvascular ischemic changes. Atrophy. N.B. : The above Results were Read Back by Janna Das MD to Charles Contreras MD, and understanding confirmed on 06/13/2022 19:39:30 (ET). Electronically Signed: Janna aDs MD at 19:27 EST Reading Location ID and State: Nadir Auguste MD Tel , Service support , Chest X-Ray 06/13/22 17:55 IMPRESSION: No acute cardiopulmonary disease. Electronically Signed: Janna Das MD at 18:44 EST Reading Location ID and State: [id number] / Tel , Service support , Discharge Plan Dx/Rx/DC Orders Clinical Impression: Acute stroke due to ischemia, Hyponatremia, Confusion Disposition Disposition: Acute Care Hospital [facility]
--- NOTE | 2022-06-13 17:55 | RAD_ITS ---
INDICATION: Cough EXAMINATION/TECHNIQUE: X-RAY - XR Chest 1 View COMPARISON: 09/26/2020. FINDINGS: LINES/DEVICES: None. LUNGS: No consolidation, edema or effusion. No pneumothorax. MEDIASTINUM AND CARDIOVASCULAR STRUCTURES: Cardiac silhouette not enlarged. Central airways and mediastinal contour are unremarkable. Atherosclerotic calcification of the aorta. BONES AND SOFT TISSUES: Old healed left rib fractures. RAD/Chest 1 View (Portable) IMPRESSION: No acute cardiopulmonary disease. Electronically Signed: Janna Das MD at 18:44 EST Reading Location ID and State: [id number] / Tel , Service support ,
[2022-06-13 18:09] LABS: AST(SGOT) 31 U/L (15-37); Alanine Aminotransfer ALT/SGPT 23 U/L (13-56); Albumin, Serum 4.2 g/dL (3.2-5.0); Alkaline Phosphatase 79 U/L (45-117); Anion Gap 11 (5-15); BUN 10 mg/dL (7-18); BUN/Creat Ratio 12.2 RATIO (10-20); Chloride 96 mmol/L (98-107); Creatinine, Serum 0.82 mg/dL (0.55-1.02); EST Glomerular Filtration Rate 71 mL/min (>60); Est Glom Filt Rate - Afr Amer 86 mL/min (>60); Estimated Creatinine Clearance 43.76 ml/min; Globulin 4.2 g/dL (2.2-4.2); Glucose 111 mg/dL (74-106); Potassium 3.5 mmol/L (3.5-5.1); Protein, Total 8.4 g/dL (6.4-8.2); Sodium Level 133 mmol/L (136-145)
[2022-06-13] MEDS: 0.9% Normal Saline 1,000 ML 1000 ML IV (18:35)
[2022-06-13 19:00] LABS: Bacteria 0 SEEN /hpf (None Seen); Mucous, Urine 0 SEEN /hpf (<or=2+); Red Blood Cells-Urine 0 SEEN /hpf (0-5); White Blood Cells 0 SEEN /hpf (0-5)
[2022-06-13 19:04] LABS: Color, Urine Yellow (Yellow); Glucose, Dipstick Normal (Normal); Ketone-Dipstick Negative (Negative); Leukocyte Esterase-Dipstick Negative /ul (Negative); Nitrite-Dipstick Negative (Negative); Occult Blood-Urine Negative /ul (Negative); Protein-Dipstick Negative (Negative); Specific Gravity, Urine 1.005 (1.002-1.030); Urine Bilirubin Dipstick Negative (Negative); Urine Clarity Clear (Clear); Urine Urobilinogen Normal (Normal)
[2022-06-13 19:18] LABS: Squamous Epithelial Cells - UA 0-5 SEEN /hpf (5-10)
[2022-06-13 19:24] LABS: Amphetamine Urine VISTA NEGATIVE (<1000 ng/mL); Barbiturate Urine VISTA NEGATIVE (< 200 ng/mL); Benzodiazepine Urine VISTA NEGATIVE (< 200 ng/mL); Cocaine Urine VISTA NEGATIVE (< 300 ng/mL); Ecstacy Urine VISTA NEGATIVE (< 500 ng/mL); Methadone Urine VISTA NEGATIVE (< 300 ng/mL); PCP Urine VISTA NEGATIVE (< 25 ng/mL); THC Urine VISTA NEGATIVE (< 50 ng/mL); Vista UDS pH Range 6
[2022-06-13 20:03] VITALS: BP 144/74; PULSE 80; RESP 15; O2SAT 98
[2022-06-13 20:14] LABS: International Normalized Ratio 1.1; Prothrombin Time (Protime)PT. 13.4 SECONDS (11.7-14.9)
[2022-06-13 20:15] LABS: Partial Thromboplast Time 26.2 Seconds (24.1-36.2)
--- NOTE | 2022-06-13 20:33 | PCM.HP.STD ---
HPI - General General Date of Admission: 06/13/22 Date of Service: 06/13/22 Chief Complaint: Acutely altered mental status with slurred speech above baseline. HPI Narrative The patient is an 82 y/o F w/ PMHx: RLS, COPD, Allergic rhinitis, Alzheimer's disease with dementia noted to be early stage, HTN, HLD, Hypothyroidism, OA, Hx Ductal carcinoma R breast s/p lumpectomy, Former tobacco use, Chronic dysarthria, GERD w/ Hx GI bleed who presents to the [facility] ED on 06/13/22 with history of onset altered mental status with slurred speech with reported history of significant insomnia with administration by the family approximately 2 days prior and edible THC to help her sleep awakening yesterday with slurred speech, drooling and confusion with noted slow responses with patient notifying her family this afternoon that she did not feel right prompting eventual ED evaluation. Per report also patient has a chronic cough but over the last few months its apparently been more productive but no fevers or chills or marked dyspnea. In the ED NIH stroke no is negative for any continued new neurological deficits or changes. Family in the ED does believe that she is back to her baseline. While in the ED she does complain of several muscle cramps to her lower extremities which improved when she sits on the side of the bed. Work-up in the ED included T98.2, heart rate 87, BP initially 201/99 with most recent repeat 144/77, respiratory rate 14, 99% on room air, CBC with WC 7.1, hemoglobin 13.3, platelet 270 without any differential performed, unremarkable coags, CMP with sodium 133, chloride 96, glucose 111 otherwise unremarkable, urinalysis with no obvious evidence of UTI, UDS unremarkable, SARS COVID and influenza antigens negative, chest x-ray with no acute cardiopulmonary findings, CT of the brain with evidence of recent acute right parietal infarct with microvascular ischemic changes and atrophy, EKG SR rate 79 without acute evidence of ischemia. In the ED patient ministered Tylenol 1000 mg p.o. x1 and 1 L normal saline bolus as well as ASA full strength. [facility] Medical History (Updated 06/13/22 @ 21:[address] Emily Verdugo MD) Alzheimer's dementia Anxiety and depression Arthritis COPD (chronic obstructive pulmonary disease) Ductal carcinoma in situ (DCIS) of right breast GERD (gastroesophageal reflux disease) History of GI bleed HTN (hypertension) Hypercholesterolemia Hypothyroidism Vitamin D deficiency Home Medications albuterol sulfate 90 mcg/actuation aerosol inhaler 2 puff inhalation Q4H PRN PRN Sob &/Or Wheezing 11/02/18 [History Last Taken Unknown] fluoxetine 20 mg capsule 20 mg PO QHS depression 11/26/19 [History Last Taken Unknown] levocetirizine 5 mg tablet 5 mg PO QHS Check with primary doctor 11/26/19 [History Last Taken 11/25/19 22:00] magnesium oxide 400 mg PO DAILY suppliment 11/26/19 [History Last Taken 11/25/19 08:00] hydrochlorothiazide 25 mg tablet 12.5 mg PO DAILY #15 tabs 11/27/19 [Rx Last Taken Unknown] losartan 100 mg tablet 100 mg PO DAILY #30 tabs 11/27/19 [Rx Last Taken Unknown] metoprolol tartrate 50 mg tablet 50 mg PO BID #60 tabs 11/27/19 [Rx Last Taken Unknown] Allergy/AdvReac Type Severity Reaction Status Date / Time atorvastatin [From Lipitor] Allergy Mild muscle Verified 06/13/22 17:13 aches lisinopril Allergy Mild cough Verified 06/13/22 17:13 rosuvastatin [From Crestor] Allergy Mild muscle Verified 06/13/22 17:13 aches alendronate sodium Allergy Unknown unknown Verified 06/13/22 17:13 [From Fosamax] Sulfa (Sulfonamide Allergy Rash Verified 06/13/22 17:13 Antibiotics) codeine AdvReac Nausea Verified 06/13/22 17:13 NSAIDS (Non-Steroidal AdvReac Bleeding Verified 06/13/22 17:13 Anti-Inflamma Syjgyba-NWY-BrD Reductase AdvReac Other Verified 06/13/22 17:13 Inhibitor [Wdyrljl-Hnx-Cfi Reductase Inhibitor] Family History Mother Heart disease CVA (cerebral vascular accident) Father Heart disease Surgical History (Updated 06/13/22 @ 20:[address] Emily Verdugo MD) History of hysterectomy History of left mastoidectomy History of lumpectomy of right breast History of right hip replacement History of right hip replacement History of thyroid surgery Social History (Updated 06/13/22 @ 20:[address] Emily Verdugo MD) household members: spouse Smoking Status: Former smoker how long ago did patient quit smoking: Quit ~ 24-25 years prior. alcohol intake: current alcohol intake frequency: a few times a month details: 1 drink/[place] nightly. substance use type: other details: Given THC chew per her family for sleep but prior no substance use. ROS ROS Narrative Admission Review of Systems: CONSTITUTIONAL: No weight loss, fever, chills, + weakness or fatigue. HEENT: Eyes: No visual loss, blurred vision, double vision or yellow sclerae. Ears, Nose, Throat: No hearing loss, sneezing, congestion, runny nose or sore throat. SKIN: No rash or itching, lesions, wounds. CARDIOVASCULAR: No chest pain, chest pressure or chest discomfort, palpitations, edema, orthopnea, syncopal events. RESPIRATORY: No shortness of breath, cough or sputum, wheezing, hemoptysis. GASTROINTESTINAL: No anorexia, nausea, vomiting or diarrhea, abdominal pain, melena, BRBPR. GENITOURINARY: No dysuria, frequency, urgency or retention. NEUROLOGICAL: + Chronic dysarthria with transient increased slurred speech, now back at baseline, increased lethargy/confusion with drooling, unclear if facial droop also transient, no resolved. No headache, dizziness, syncope, paralysis, ataxia, numbness or tingling in the extremities, focal weakness, change in bowel or bladder control, seizure. MUSCULOSKELETAL: + muscle, back pain, joint pain or stiffness. HEMATOLOGIC: No anemia, bleeding or bruising. LYMPHATICS: No enlarged nodes. No history of splenectomy. PSYCHIATRIC: + history of depression or anxiety. ENDOCRINOLOGIC: No reports of sweating, cold or heat intolerance. No polyuria or polydipsia. ALLERGIES: + history of rhinitis. Vital Signs Vital Signs Vital Signs: 06/13/22 17:10 06/13/22 17:24 06/13/22 20:03 Temperature 98.2 F Temperature Source Temporal Pulse Rate 87 80 Respiratory Rate 14 15 Blood Pressure 201/99 H 120/99 H 144/74 H Blood Pressure Mean 133 106 97 Pulse Ox 99 98 Oxygen Delivery Method Room Air Room Air Weight Weight: 133 lb 8 oz Body Mass Index (BMI) 23.6 Physical Exam Narrative Physical Examination: General: Awake, alert, oriented to place, person, year, month and president, does have altered speech which family notes is currently at her baseline, she is cooperative and interactive, intermittently having muscle cramping of her lower extremity during evaluation. Skin: Normal color, normal turgor, no icterus, no cyanosis. HEENT: AT/NC, EOMI, PERRLA, moderately dry MM, no carotid bruits or JVD noted. Lungs: CTA bilaterally, moderate effort, mild decrease BL bases, no rales, ronchi or wheezing. Heart: Currently regular rate and rhythm; no gallop, rub audible. Abdomen: Soft, NTTP, ND, mildly hyperactive BS, no HSM. Extremities: No cyanosis, no clubbing, no edema, intermittent especially right lower extremity cramps during evaluation Neurological: Patient awake, alert, oriented as noted, cognitive function appears improved, now per family appears based intact; pupils equally reactive to light and accommodation, cranial nerves II-XII grossly normal, moving all 4 extremities, no focal deficits, strength difficult to assess as patient frequently having muscle cramps and spasms during evaluation, sensation intact, finger-nose appropriate, difficulty performing fyoo-md-mwrf secondary to severity of extremity cramping, equivocal Babinski Psychiatric: Affect appears uncomfortable with muscle cramping otherwise no acute distress, no acute evidence of depressive or anxiety feelings but does have underlying history and significant issues with insomnia per family and patient discussion. Results Lab / Micro Data Result Diagrams: 06/13/22 17:47 06/13/22 17:47 Labs: Laboratory Results - last 24 hr 06/13/22 17:47: WBC 7.1, RBC 4.71, Hgb 13.3, Hct 41.1, MCV 87.3, MCH 28.2, MCHC 32.4, RDW Std Deviation 46.8 H, RDW Coeff of Kierra 14.6, Plt Count 270, MPV 10.9 06/13/22 17:47: Sodium 133 L, Potassium 3.5, Chloride 96 L, Carbon Dioxide 26.0, Anion Gap 11, BUN 10, Creatinine 0.82, Estim Creat Clear Calc 43.76, Est GFR (MDRD) Af Amer 86, Est GFR (MDRD) Non-Af 71, BUN/Creatinine Ratio 12.2, Glucose 111 H, Calcium 10.0, Total Bilirubin 0.50, AST 31, ALT 23, Alkaline Phosphatase 79, Total Protein 8.4 H, Albumin 4.2, Globulin 4.2, Albumin/Globulin Ratio 1.0 06/13/22 18:52: Urine Color Yellow, Urine Clarity Clear, Urine pH 7.0, Ur Specific [place] 1.005, Urine Protein Negative, Urine Glucose (UA) Normal, Urine Ketones Negative, Urine Occult Blood Negative, Urine Nitrite Negative, Urine Bilirubin Negative, Urine Urobilinogen Normal, Ur Leukocyte Esterase Negative, Urine RBC 0 SEEN, Urine WBC 0 SEEN, Ur Squamous Epith Cells 0-5 SEEN, Urine Bacteria 0 SEEN, Urine Mucus 0 SEEN 06/13/22 18:52: Urine Opiates Screen NEGATIVE, Urine Methadone Screen NEGATIVE, Ur Barbiturates Screen NEGATIVE, Ur Phencyclidine Scrn NEGATIVE, Ur Amphetamines Screen NEGATIVE, MDMA (Ecstasy) Screen NEGATIVE, U Benzodiazepines Scrn NEGATIVE, Urine Cocaine Screen NEGATIVE, U Cannabinoids Screen NEGATIVE, Ur Drug Screen Comment 06/13/22 19:57: PT 13.4, INR 1.1, APTT 26.2 Micro: Microbiology 06/13/22 18:21 Nasal Secretion SARS-CoV-2 & FLU Antigen (Rapid) - Final Radiology Impression Brain CT 06/13/22 17:35 IMPRESSION: Acute right parietal infarct. Microvascular ischemic changes. Atrophy. Electronically Signed: Janna Das MD at 19:27 EST Reading Location ID and State: Nadir Auguste MD Tel , Service support , ADDENDUM: 06/13/22 194 IMPRESSION: Acute right parietal infarct. Microvascular ischemic changes. Atrophy. N.B. : The above Results were Read Back by Janna Das MD to Charles Contreras MD, and understanding confirmed on 06/13/2022 19:39:30 (ET). Electronically Signed: Janna Das MD at 19:27 EST Reading Location ID and State: Nadir Auguste MD Tel , Service support , Chest X-Ray 06/13/22 17:55 IMPRESSION: No acute cardiopulmonary disease. Electronically Signed: Janna Das MD at 18:44 EST Reading Location ID and State: [id number] / Tel , Service support , Assessment & Plan Assessment/Plan (1) CVA (cerebral vascular accident): PLAN: Plan The patient is an 82 y/o F w/ PMHx: RLS, COPD, Allergic rhinitis, Alzheimer's disease with dementia noted to be early stage, HTN, HLD, Hypothyroidism, OA, Hx Ductal carcinoma R breast s/p lumpectomy, Former tobacco use, Chronic dysarthria, GERD w/ Hx GI bleed who presents to the [facility] ED on 06/13/22 with history of onset altered mental status with slurred speech with reported history of significant insomnia with administration by the family approximately 2 days prior and edible THC to help her sleep awakening yesterday with slurred speech, drooling and confusion with noted slow responses with patient notifying her family this afternoon that she did not feel right prompting eventual ED evaluation. #1. Acute encephalopathy, increased above her baseline slurred speech with underlying chronic dysarthria of note and given history of drooling possible transient facial droop secondary to acute right parietal infarct and possibly concurrent THC usage: Will admit to PCU, will obtain MRI Brain, CTA head and Neck, ECHO with bubble study, PT/OT/Speech/Nutrition evaluation per protocol. Given timeline of recent symptoms and acute findings on CT will allow permissive HTN, maintain on asa, statin intolerance history noted, fall precautions, magnesium/TSH/hemoglobin A1c/FLP pending. #2. COPD with chronic cough, worsened: CXR without acute findings and patient outpatient per review of medications has previously been on inhalers, does not appear to have recently been filled but likely associated with her complaints, will add budesonide scheduled, will have as needed albuterol if necessary, encourage I-S and head of bed and if able will obtain sputum Cx. #3. Hypertension: We will maintain permissive hypertension with as needed agents per stroke protocol. #4. Hyperlipidemia: Unfortunately patient has noted statin intolerance with significant myalgias, FLP in AM. #5. Acute bilateral lower extremity, muscle cramps: Lengthy discussion, will judiciously hydrate, magnesium level pending, will have very low-dose as needed tizanidine for severe cramps and muscle spasms. Maintain on fall precautions as noted. #6. History of ductal carcinoma: Patient status post right breast lumpectomy, considered in remission. #7. Anxiety and depression with chronic insomnia: We will continue patient home mirtazapine regimen. Previously per records had been on fluoxetine but does not appear to have been refilled recently and transition to mirtazapine but clarifying. Given ongoing significant insomnia recommended strongly that they avoid giving patient THC and may need to consider a low-dose trazodone or alternate regimen but would prefer not to do in the acute phase especially given muscle cramping. #8. Allergic rhinitis: We will continue patient home levocetirizine regimen. #9. Hypothyroidism: Reported per history however not on any levothyroxine or Synthroid, previously noted thyroid nodule resection, TSH pending as noted. #10. Former tobacco use: Encourage continued tobacco cessation #11. GERD with history GI bleed previous: Noted remote GI bleed history 2018, we will continue patient home PPI. #12. Restless leg syndrome: Patient previously on Neurontin and also noted prior prescription for Mirapex, does not appear recently filled. #13. Alzheimer's disease with dementia noted to be early stage: No reported behavioral disturbance history but patient has significant insomnia, will maintain on fall and aspiration precautions, therapies consulted as well as case management for discharge planning. #14. DVT prophylaxis: Lovenox. #15. CODE status: Patient HCPOA is her who is present and her daughter who is secondary who is also present and living will is currently in place. Discussed CODE status at length including difference between FULL code, DNR-CCA and DNR-CC status. Following discussions about the differences in these status, requested DNR-CCA, no intubation status. Advanced Care Planning Face to Face Time: 16 minutes. Admission Evaluation Time spent evaluating chart, patient history, patient evaluation, care planning and discussion with specialists: 75 minutes. Charges/Coding Visit Charges Inpatient E&M: 06825 Init Hosp L3 Procedures Hospitalists Procedures: 27145 Advncd Care Plan 30 Min
[2022-06-13 21:00] VITALS: BP 115/54; PULSE 78; RESP 15; TEMP 36.8; O2SAT 99
--- NOTE | 2022-06-13 21:16 | CT_ITS ---
We are attempting to reach an attending provider to discuss findings. An addendum with communication details will be sent when the communication is complete. INDICATION: stroke EXAMINATION: CT BRAIN WITH CONTRAST TECHNIQUE: Noncontrast axial images were obtained of the brain. Subsequently, routine carotid CT angiogram protocol was performed without and with IV contrast. In addition, images were obtained of the [place] of [place]. NASCET criteria using the distal ICAs for comparison were used for evaluation of stenoses. 3D reconstructions were reviewed. A radiation dose optimization technique was used for this scan. IV Contrast dosage and agent: COMPARISON: None. FINDINGS: --CT BRAIN: Redemonstrated acute right parietal infarct. Microvascular ischemic changes. Mild ventriculomegaly commensurate with the degree of sulcal atrophy. --CTA NECK: AORTIC ARCH AND BRANCHES: Normal anatomy, patent. RIGHT CCA: No occlusion, significant stenosis or dissection. Atherosclerotic calcification of the carotid bulb without stenosis. RIGHT ICA: No occlusion, significant stenosis or dissection. LEFT CCA: No occlusion, significant stenosis or dissection. Atherosclerotic calcification of the carotid bulb without stenosis. LEFT ICA: No occlusion, significant stenosis or dissection. RIGHT VERTEBRAL ARTERY: No occlusion, significant stenosis or dissection. LEFT VERTEBRAL ARTERY: No occlusion, significant stenosis or dissection. NECK SOFT TISSUES: Multiple thyroid nodules. Mild centrilobular emphysema in the lung apices. --CTA HEAD: --Anterior circulation: ICAs: No significant stenosis at the intracranial/visualized segments. Atherosclerotic calcification of the cavernous ICAs without stenosis. ACAs: No significant stenosis at the visualized segments. ACOM: Present. MCAs: No significant stenosis at the visualized segments. --Posterior circulation: PCOMs: Present. 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 Bilateral origin of the posterior cerebral arteries with absent P1 segments. 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 BASILAR ARTERY: No significant stenosis. VERTEBRAL ARTERIES: No significant stenosis at the intradural/visualized segments. No evidence of intracranial aneurysm or vascular malformation. CT/STROKE CTA Head AND Neck W/Con IMPRESSION: Acute right parietal infarct. 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 Multiple thyroid nodules. COPD. Electronically Signed: Janna Das MD at 22:13 EST Reading Location ID and State: [id number] / Tel , Service support ,
[2022-06-13 21:45] VITALS: BP 155/78; PULSE 92; RESP 19; TEMP 36.7; O2SAT 95
[2022-06-13 21:48] VITALS: BMI 22.8
--- NOTE | 2022-06-13 21:48 | ECHOD_ITS ---
Reason For Study: TIA/CVA Procedure This was a 2D Doppler, Color Flow transthoracic echocardiogram. Exam performed portable in patient room. Left Ventricle Normal LV size. Left ventricular systolic function is normal. The estimated ejection fraction is 60 %. No regional wall motion abnormalities noted. Right Ventricle Normal RV size. Normal systolic function. Atria Normal left atrium. Normal right atrium. Bubble contrast study negative for right to left interatrial shunt. Mitral Valve Normal mitral valve. Tricuspid Valve Normal tricuspid valve. Aortic Valve Trisinus/trileaflet aortic valve. Pulmonic Valve Normal pulmonic valve. Great Vessels Normal aortic root. The pulmonary artery is normal size. Normal inferior vena cava. Pericardium/Pleural No pericardial effusion. Medication Performed a rapid injection of agitated mix of 9 cc saline and 1cc air to assess for atrial septal defect. MMode/2D Measurements & Calculations LVIDd: 3.9 cm IVSd: 1.0 cm Ao root diam: 2.7 cm LVIDs: 2.4 cm LVPWd: 1.0 cm RVDd: 3.5 cm FS: 38.8 % LAV(MOD-bp): 38.3 ml LVAd ap4: 23.6 cm2 SV(MOD-sp4): 41.0 ml LAV(MOD-bp) Indexed: 23.4 ml/m2 LVLd ap4: 7.2 cm LAV(MOD-sp2): 37.6 ml EDV(MOD-sp4): 62.0 ml LAV(MOD-sp4): 38.3 ml EDV(sp4-el): 65.7 ml LVAs ap4: 12.3 cm2 LVLs ap4: 5.9 cm ESV(MOD-sp4): 21.0 ml ESV(sp4-el): 21.5 ml EF(MOD-sp4): 66.1 % EF(sp4-el): 67.2 % SV(sp4-el): 44.1 ml LA A4 area: 15.5 cm2 LA dimension(2D): 3.7 cm RA A4 area: 13.8 cm2 Time Measurements MV dec time: 0.26 sec Doppler Measurements & Calculations MV E max estevan: 76.2 cm/sec Lat Peak E' Estevan: 7.1 cm/sec Med Peak E' Estevan: 7.2 cm/sec MV A max estevan: 90.5 cm/sec E/E' lat: 10.8 E/E' med: 10.6 MV E/A: 0.84 Ao V2 max: 138.5 cm/sec LV V1 max: 117.2 cm/sec PA V2 max: 91.3 cm/sec Ao max P.7 mmHg LV V1 max P.5 mmHg TR max estevan: 258.9 cm/sec TR max P.8 mmHg ECHO/Echo Complete Interpretation Summary Normal LV size. Left ventricular systolic function is normal. The estimated ejection fraction is 60 %. Bubble contrast study negative for right to left interatrial shunt. Structurally normal valves. Ordering Physician: Emily Verdugo Referring Physician: JOSE BALDERRAMA Performed By: Namita Delcid RDCS
[2022-06-13] MEDS: 0.9% Normal Saline 1,000 ML 100 ML IV (22:45)
[2022-06-13] MEDS: FLUoxetine 20 MG Capsule PO (22:45)
[2022-06-13] MEDS: Aspirin 325 MG Tablet PO (22:46)
[2022-06-13] MEDS: Acetaminophen 500 MG Tablet 1000 MG PO (22:46)
[2022-06-13] MEDS: Loratadine 10 MG Tablet PO (22:46)
[2022-06-13] MEDS: tiZANidine HCl 2 MG Tablet PO (22:47)
[2022-06-13] MEDS: 0.9% Saline Lock 10 ML Syringe IV (22:47)
[2022-06-13] MEDS: Pantoprazole Sodium 20 MG Tablet PO (22:47)
[2022-06-13 23:08] VITALS: O2SAT 92
--- NOTE | 2022-06-13 23:49 | CPS ---
2L NC was placed on patient due to non-compliant cpap use and o2 saturations 88% while sleeping.
[2022-06-14] VITALS (10 sets, daily range): BP systolic 144–170; BP diastolic 65–115; PULSE 59–84; RESP 16–17; TEMP 36.5–36.8; O2SAT 92–97; BMI 23.0
[2022-06-14 06:26] LABS: Absolute Lymphocyte Count 1.28 X10^3/uL (0.83-4.51); Absolute Neutrophil Count 2.6 X10^3/uL (2.0-7.7); Basophil# 0.05 X10^3/uL; Basophil% 1.1 % (0-1); Eosinophil# 0.12 X10^3/uL; Eosinophils% 2.5 % (0-5); Hematocrit 35.1 % (37-47); Hemoglobin 11.2 g/dL (12.0-15.0); Lymphocyte # 1.28 X10^3/ul (0.83-4.51); Lymphocyte % 26.9 % (19-41); Mean Corp Hgb Conc 31.9 g/dL (32-36); Mean Corpuscular Hgb 27.9 pg (27.0-32.0); Mean Corpuscular Volume 87.5 fL (81-99); Mean Platelet Vol. 9.9 fl (6.2-12.0); Monocyte# 0.74 X10^3/uL; Monocyte% 15.5 % (0-10); NRBC Flagged by Analyzer 0 % (0-5); Neutrophil # 2.56 X10^3/uL (2.7-7.7); Neutrophil % 53.8 % (47-70); Platelet Count 226 K/mm3 (150-450); RBC Distribution Width CV 14.6 % (11.6-14.6); RBC Distribution Width SD 47.4 fl (35.1-43.9); Red Blood Count 4.01 M/mm3 (4.2-5.4); White Blood Count 4.8 K/mm3 (4.4-11.0)
[2022-06-14 08:45] LABS: AST(SGOT) 22 U/L (15-37); Alanine Aminotransfer ALT/SGPT 22 U/L (13-56); Albumin, Serum 3.6 g/dL (3.2-5.0); Alkaline Phosphatase 67 U/L (45-117); Anion Gap 7 (5-15); BUN 7 mg/dL (7-18); BUN/Creat Ratio 9.4 RATIO (10-20); Calcium,Total 9.1 mg/dL (8.5-10.1); Chloride 108 mmol/L (98-107); Cholesterol 207 mg/dL (200); Creatinine, Serum 0.74 mg/dL (0.55-1.02); EST Glomerular Filtration Rate 80 mL/min (>60); Est Glom Filt Rate - Afr Amer 96 mL/min (>60); Estimated Creatinine Clearance 37.45 ml/min; Globulin 3.6 g/dL (2.2-4.2); Glucose 95 mg/dL (74-106); High Density Lipoprotein 52 mg/dL; Potassium 3.2 mmol/L (3.5-5.1); Protein, Total 7.2 g/dL (6.4-8.2); Sodium Level 139 mmol/L (136-145); Thyroid Stim Hormone (TSH) 1.82 uIU/mL (0.358-3.74); Triglycerides 212 mg/dL; Very Low Density Lipoprotein 42 mg/dL (5-40)
[2022-06-14 09:41] LABS: Hemoglobin A1c 5.7 % (3.8-5.6)
[2022-06-14] MEDS: Pantoprazole Sodium 20 MG Tablet PO ×2 (10:02→21:05)
[2022-06-14] MEDS: Enoxaparin 40 MG/0.4 ML Syringe SC (10:02)
[2022-06-14] MEDS: Aspirin 81 MG TAB.CHEW PO (10:02)
--- NOTE | 2022-06-14 12:35 | CASEMGMT ---
RN ABRAHAN DONOR TECHNICIAN CM to room to meet with patient for initial transition planning/care coordination assessment. ANNIE GAUTHIER introduced self and role at [facility]. Pt voices understanding and consents to assessment at this time. Pt sitting up in chair in room in no distress at this time. Therapy just in with pt and completed evals. Pt is A/O at this time and answers all questions appropriately. Care providers, pharmacy, and demographics verified/updated at this time. PCP: Dr Segura Specialists: Dr Ken-pulmonology Preferred Pharmacy: [facility] Insurance: [employer] [facility] Prescription Benefit: Yes Living Will/HPOA: Has both LW and HCPOA, who is her . Dtr, Amina, 1st alternative agent. LNOK: , Bin. Dtr, Amina. 2 other children. Living Arrangements: Lives w/ in one-story home w/6 steps to enter w/railing. Pt states she is indep w/ADL's and manages her own medications. She and share home mgmt tasks. Transportation: Pt states drives self and states no transportation concerns at this time. also drives. DME: States has the following DME: built-in shower seat, walking stick for outside use, grab bars. Pt states is supposed to use PAP, but tried 5 different masks, but unable to tolerate any of them. No home O2. HHC/SNF: No hx of SNF. States does not remember if she had HHC or OP therapy after hip surgery. She denies wanting HHC. Pt wishes to return home and states has no concerns with going home at time of discharge. CM to follow for any discharge planning/needs. Pt voices concerns/needs at this time. Advised pt to ask for CM if any questions/concerns/needs arise. Voices understanding. PLAN: Home Melita CARRANZA RN, CM
[2022-06-14] MEDS: LORazepam 2 MG/ML Syringe IV (13:47)
[2022-06-14] MEDS: 0.9% Saline Lock 10 ML Syringe IV (13:47)
--- NOTE | 2022-06-14 14:12 | MRI_ITS ---
STUDY: MRI BRAIN WITHOUT CONTRAST REASON FOR EXAM: Female, 82 years old. ALTERED MENTAL STATUS, SLURRED SPEECH, DROOLING, CONFUSION SINCE YESTERDAY. HX OF ALZHEIMERS, RT BREAST CANCER, CHRONIC DYSRTHRIA. CT BRAIN 06/13/22; MR BRAIN11/26/19 TECHNIQUE: Standardized multiplanar fat and water weighted pulse sequences were obtained. COMPARISON: Head CT dated June 13, 2022. MRI of the brain dated November 26, 2019 FINDINGS: A small to moderate size acute infarct is present in the mid aspect of the right parietal lobe extending to the periventricular white matter. A cluster of multiple small acute infarcts are also present in the middle one third aspect of the right temporal lobe directly beneath the larger infarct. There is mild cerebral atrophy with widening of the extra-axial spaces and ventricular dilatation. There are multiple white matter hyperintensities, distributed throughout the deep white matter tracts of the cerebral hemispheres, consistent with moderate chronic white matter ischemic changes. Redemonstration of several punctate foci of hemosiderin staining in the bilateral cerebral hemispheres consistent with chronic sequela. There is no evidence of acute intracranial hemorrhage. Normal bilateral basal ganglia. Normal thalami. There is no extra-axial fluid accumulation. Normal flow voids within the major intracranial circulation suggesting patency by spin echo criteria. Normal sella turcica, pituitary gland, infundibular stalk, optic chiasm and hypothalamus. Normal tectal plate and pineal gland. Normal midbrain, gume and medulla. Normal cerebellum. Normal basal cisterns. Normal bilateral temporal bones. Normal bilateral internal auditory canals. No demonstrated orbital abnormality, within the constraints of a routine brain study. Normal visualized paranasal sinuses. Normal calvarium and skull base. Normal visualized soft tissue structures. Normal visualized upper cervical spine. MRI/Brain without Contrast IMPRESSION: 1. A small to moderate size acute infarct is present in the mid aspect of the right parietal lobe extending to the periventricular white matter. A cluster of multiple small acute infarcts are also present in the middle one third aspect of the right temporal lobe directly beneath the larger infarct. 2. These infarcts appear unchanged from the head CT dated June 13, 2022 Electronically Signed: Troy Calloway MD at 15:18 EST ,
[2022-06-14] MEDS: Clopidogrel Bisulfate 75 MG Tablet PO (18:22)
--- NOTE | 2022-06-14 19:37 | PN.HOSP_ITS ---
Reason for Visit Reason for Visit: Diagnoses Cerebral infarction, unspecified (06/13/22) Subjective Subjective Patient was seen and examined today, I talked with her at length on the phone, he confirmed that she has had a diagnosis in the past of dementia, patient admits this also but states that her family doctor in [place] does not agree with this diagnosis. Patient had an MRI performed today with showed a small to moderate-sized acute infarct in the mid aspect of the right parietal lobe extending into the periventricular white matter. A cluster of multiple small acute infarcts are also present in the middle one third aspect of the right temporal lobe directly beneath the larger infarct. According to the patient, she does not take a daily aspirin at home, she states at one time she had a hemorrhage, she says it was many years ago and she had bleeding in her gastrointestinal tract, she states that she was never told that aspirin exactly caused the bleeding. I have elected to place the patient on Plavix and aspirin presently, I will discuss with her and her whether she wants to undergo a 30-day Holter monitor to rule out A-fib. I briefly discussed with the that I could place the patient on Namenda, he agreed that would be a good idea, patient also feels that she has some memory issues and that she would like a prescription for it. Objective Data Objective Data Vital Signs: Vital Signs Temp Pulse Resp BP Pulse Ox O2 Del Method O2 Flow Rate 98.2 F 84 16 169/77 H 97 Room Air 2 06/14/22 17:45 06/14/22 17:45 06/14/22 17:45 06/14/22 17:45 06/14/22 17:45 06/14/22 17:45 06/14/22 13:30 Oxygen Flow Rate (L/min) 2 Oxygen Delivery Method Room Air Weight: 60.9 kg Body Mass Index (BMI) 23.0 Intake & Output: Intake and Output for Last 24 Hours 06/12/22 06/13/22 06/14/22 23:59 23:59 23:59 Intake Total 1000 / 1000 1680 / 1680 Balance 1000 / 1000 1680 / 1680 Lab / Micro Data Result Diagrams: 06/14/22 06:00 06/14/22 08:08 Labs: Laboratory Results - last 24 hr 06/13/22 17:45: Magnesium 2.0 06/13/22 19:57: PT 13.4, INR 1.1, APTT 26.2 06/14/22 06:00: WBC 4.8, RBC 4.01 L, Hgb 11.2 L, Hct 35.1 L, MCV 87.5, MCH 27.9, MCHC 31.9 L, RDW Std Deviation 47.4 H, RDW Coeff of Kierra 14.6, Plt Count 226, MPV 9.9, Immature Gran % (Auto) 0.200, Neut % (Auto) 53.8, Lymph % (Auto) 26.9, Barton % (Auto) 15.5 H, Eos % (Auto) 2.5, Baso % (Auto) 1.1 H, Absolute Neuts (auto) 2.6, Absolute Lymphs (auto) 1.28, Nucleated RBC % 0 06/14/22 06:00: Sodium Cancelled, Potassium Cancelled, Chloride Cancelled, Carbon Dioxide Cancelled, Anion Gap Cancelled, BUN Cancelled, Creatinine Cancelled, Estim Creat Clear Calc Cancelled, Est GFR (MDRD) Af Amer Cancelled, Est GFR (MDRD) Non-Af Cancelled, BUN/Creatinine Ratio Cancelled, Glucose Cancelled, Calcium Cancelled, Total Bilirubin Cancelled, AST Cancelled, ALT Cancelled, Alkaline Phosphatase Cancelled, Total Protein Cancelled, Albumin Cancelled, Globulin Cancelled, Albumin/Globulin Ratio Cancelled, Triglycerides Cancelled, Cholesterol Cancelled, LDL Cholesterol Cancelled, VLDL Cholesterol Cancelled, HDL Cholesterol Cancelled, TSH Cancelled 06/14/22 06:00: Hemoglobin A1c 5.7 H 06/14/22 08:08: Sodium 139, Potassium 3.2 L, Chloride 108 H, Carbon Dioxide 24.0, Anion Gap 7, BUN 7, Creatinine 0.74, Estim Creat Clear Calc 37.45, Est GFR (MDRD) Af Amer 96, Est GFR (MDRD) Non-Af 80, BUN/Creatinine Ratio 9.4 L, Glucose 95, Calcium 9.1, Total Bilirubin 0.50, AST 22, ALT 22, Alkaline Phosphatase 67, Total Protein 7.2, Albumin 3.6, Globulin 3.6, Albumin/Globulin Ratio 1.0, Triglycerides 212 H, Cholesterol 207 H, LDL Cholesterol 113, VLDL Cholesterol 42 H, HDL Cholesterol 52, TSH 1.82 Micro: Microbiology 06/13/22 18:21 Nasal Secretion SARS-CoV-2 & FLU Antigen (Rapid) - Final Radiography Diagnostic Testing: Radiology Impression Brain CT 06/13/22 17:35 IMPRESSION: Acute right parietal infarct. Microvascular ischemic changes. Atrophy. Electronically Signed: Janna Das MD at 19:27 EST Reading Location ID and State: [place] / Tel , Service support , ADDENDUM: 06/13/22 194 IMPRESSION: Acute right parietal infarct. Microvascular ischemic changes. Atrophy. N.B. : The above Results were Read Back by Janna Das MD to Charles Contreras MD, and understanding confirmed on 06/13/2022 19:39:30 (ET). Electronically Signed: Janna Das MD at 19:27 EST Reading Location ID and State: [place] MD Tel , Service support , Head/Neck CTA 06/13/22 21:16 IMPRESSION: Acute right parietal infarct. 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 Multiple thyroid nodules. COPD. Electronically Signed: Janna Das MD at 22:13 EST Reading Location ID and State: [place] / Tel , Service support , ADDENDUM: 06/13/22 222 IMPRESSION: Acute right parietal infarct. 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 Multiple thyroid nodules. COPD. N.B. : The above Results were Read Back by Janna Das MD to Emily Verdugo MD, and understanding confirmed on 06/13/2022 22:14:28 (ET). Electronically Signed: Janna Das MD at 22:13 EST Reading Location ID and State: [place] August[place] MD Tel , Service support , Echocardiogram 06/13/22 21:48 Interpretation Summary Normal LV size. Left ventricular systolic function is normal. The estimated ejection fraction is 60 %. Bubble contrast study negative for right to left interatrial shunt. Structurally normal valves. Ordering Physician: Emily Verdugo Referring Physician: JOSE BALDERRAMA Performed By: Namita Delcid RDCS Brain MRI 06/14/22 14:12 IMPRESSION: 1. A small to moderate size acute infarct is present in the mid aspect of the right parietal lobe extending to the periventricular white matter. A cluster of multiple small acute infarcts are also present in the middle one third aspect of the right temporal lobe directly beneath the larger infarct. 2. These infarcts appear unchanged from the head CT dated June 13, 2022 Electronically Signed: Troy Calloway MD at 15:18 EST Reading Location ID and State: [facility] / [place] , Service support , Physical Exam Const alert, oriented x3, no apparent distress, average body habitus and healthy appearing General Appearance: cooperative, well kempt and well developed Orientation / Consciousness: awake, oriented to person, oriented to place and oriented to time HEENT normocephalic, head/scalp atraumatic and moist oral mucous membranes Eyes PERRL, EOMs intact bilaterally and conjunctivae normal Neck supple, no JVD, thyroid normal and no carotid bruits General: trachea midline Resp normal respiratory effort, no retractions, no use of accessory muscles and clear to auscultation bilaterally Auscultation: Negative for rales, rhonchi or wheezes Cardio regular rate, regular rhythm, S1 normal heart sound, S2 normal heart sound, no murmurs, no rub and no gallops GI normal to inspection, nondistended, normoactive bowel sounds, soft to palpation, non-tender and non-distended Extremity no clubbing, cyanosis or edema Skin no rashes or lesions noted General Skin Exam: no breakdown Neuro oriented x3, CN's II-XII intact bilaterally, moves all extremities, no focal motor deficits and no sensory deficits noted Sensorium / Orientation: awake, alert, oriented to person, oriented to place and oriented to time Speech: speech normal Psych affect normal Assessment & Plan Assessment/Plan (1) Confusion: PLAN: Plan 1. acute ischemic stroke right parietal lobe, right temporal lobe-patient will remain on aspirin and Plavix, I will discuss with the patient and the patient's the need for 30-day Holter monitor which will be arranged at the time of her discharge tomorrow #2 history of dementia-complicates care, medical course, recovery, and prognosis, I will defer to the patient's PCP for any treatment of dementia as I am unsure how this diagnosis was made. #3 chronic depression-patient is on Prozac #4 essential hypertension-patient is on losartan, metoprolol, and hydrochlorothiazide #5 hyperlipidemia-I am recommending that the patient take a statin, I will discuss this with her tomorrow. She has side effects from statins in the past (muscle aches) Total clinical time spent by myself addressing the patient's medical issues, reviewing all the data, and collaborating with patient's care team: 35 minutes Charges/Coding Visit Charges Inpatient E&M: 54827 Subs Hosp L2
[2022-06-14] MEDS: FLUoxetine 20 MG Capsule PO (21:05)
[2022-06-14] MEDS: Loratadine 10 MG Tablet PO (21:05)
[2022-06-14] MEDS: Atorvastatin Calcium 20 MG Tablet PO (21:07)
[2022-06-14] MEDS: MELATONIN 3 MG TABLET PO (23:53)
[2022-06-15 00:02] VITALS: BMI 23.0
[2022-06-15 01:50] VITALS: BP 156/72; PULSE 75; RESP 17; TEMP 36.6; O2SAT 98
[2022-06-15 03:47] VITALS: BMI 23.1
[2022-06-15 06:56] VITALS: PULSE 70; RESP 18; O2SAT 96
[2022-06-15] MEDS: Budesonide Respules 0.5 MG/2 ML AMPUL.NEB. INHALATION (06:59)
[2022-06-15 08:41] VITALS: BP 144/74; PULSE 64; RESP 16; TEMP 36.3; O2SAT 95
[2022-06-15] MEDS: Clopidogrel Bisulfate 75 MG Tablet PO (08:47)
[2022-06-15] MEDS: Aspirin 81 MG TAB.CHEW PO (08:47)
[2022-06-15] MEDS: Pantoprazole Sodium 20 MG Tablet PO (08:47)
[2022-06-15] MEDS: Enoxaparin 40 MG/0.4 ML Syringe SC (08:47)
--- NOTE | 2022-06-15 11:19 | PCM.DC ---
Discharge Instructions Diet Discharge Diet: No restrictions Activity Discharge Activity: Return to Normal Activity and - (do not drive until you follow up with your family doctor) Weight Bearing Status: Full weight bearing Follow Up Care Test Results: Test results from this visit will be discussed in further detail at your follow-up appointment, if applicable. Discharge Plan Admission Admit Date/Time: 06/13/22 20:38 Primary Reason for Your Visit: acute stroke Attending Provider: Guille Jamison Primary Care Provider: Vikram Segura Consulting Providers: Emily Verdugo Instructions Additional Instructions / Restrictions: You will get a 30 day monitor in the mail-if you need help applying it, contact your family doctor Discharge Orders/Prescriptions Prescriptions: New aspirin 81 mg Tablet,Chewable 81 mg PO BREAKFAST Qty: 0 0RF atorvastatin 20 mg Tablet 20 mg PO QHS Qty: 30 0RF clopidogrel 75 mg Tablet 75 mg PO DAILY Qty: 30 0RF Continued albuterol sulfate 1 INHALER inhaler 2 puff inhalation Q4H PRN PRN (Reason: Sob &/Or Wheezing) fluoxetine 20 MG capsule 20 mg PO QHS levocetirizine 5 MG tablet 5 mg PO QHS magnesium oxide 400 MG capsule 400 mg PO DAILY losartan 100 MG tablet 100 mg PO DAILY Qty: 30 0RF hydrochlorothiazide 25 MG tablet 12.5 mg PO DAILY Qty: 15 0RF metoprolol tartrate 50 MG tablet 50 mg PO BID Qty: 60 0RF Other Ambulatory Orders: 30 Day Event Recorder Preventi (Routine) Timeframe: 1 Day Facility: [facility] - Location: Cardiovascular Services Ordered By: Dr. Guille Jamison Referrals / Follow Up: Vikram Segura MD [Primary Care Provider] - Within 1 Week Disposition Disposition (needs filled in before D/C Order can be placed): Home, Self Care
--- NOTE | 2022-06-15 11:32 | DS.PCM_ITS ---
Providers Date of Admission: 06/13/22 Date of Discharge: 06/15/22 Primary Care Physician: Dr. Jose Segura MD Reason For Visit: CVA Diagnosis Discharge Diagnosis (1) CVA (cerebral vascular accident): Status: Acute Code(s): I63.9 - Cerebral infarction, unspecified Plan 1.? acute ischemic stroke right parietal lobe, right temporal lobe-patient will remain on aspirin and Plavix, I will discuss with the patient and the patient's the need for 30-day Holter monitor which will be arranged at the time of her discharge tomorrow #2 history of dementia-complicates care, medical course, recovery, and prognosis, I will defer to the patient's PCP for any treatment of dementia as I am unsure how this diagnosis was made. #3 chronic depression-patient is on Prozac #4 essential hypertension-patient is on losartan, metoprolol, and hydrochlorothiazide #5 hyperlipidemia-I am recommending that the patient take a statin, I will discuss this with her tomorrow.? She has side effects from statins in the past (muscle aches) Medications at Discharge Home Medications albuterol sulfate 90 mcg/actuation aerosol inhaler 2 puff inhalation Q4H PRN PRN Sob &/Or Wheezing 11/02/18 fluoxetine 20 mg capsule 20 mg PO QHS depression 11/26/19 levocetirizine 5 mg tablet 5 mg PO QHS Check with primary doctor 11/26/19 magnesium oxide 400 mg PO DAILY suppliment 11/26/19 hydrochlorothiazide 25 mg tablet 12.5 mg PO DAILY #15 tabs 11/27/19 losartan 100 mg tablet 100 mg PO DAILY #30 tabs 11/27/19 metoprolol tartrate 50 mg tablet 50 mg PO BID #60 tabs 11/27/19 aspirin 81 mg chewable tablet 81 mg PO BREAKFAST #0 tabs 06/15/22 atorvastatin 20 mg tablet 20 mg PO QHS #30 tabs 06/15/22 clopidogrel 75 mg tablet 75 mg PO DAILY #30 tabs 06/15/22 Hospital Course Operations None Procedures 2-D Echocardiogram Summary of Care Provided Minutes Spent on Discharge: 31 Hospital Course: This 82-year-old white female was seen in the emergency room at [facility] with complaints per the family of mental status changes slurred speech, work-up in the emergency room included a CT of the brain which showed an acute parietal stroke, patient is in a structure however it was 0. Patient was admitted to PCU, she was seen by PT OT and speech therapy, she underwent an MRI of the brain which showed a small to moderate size acute infarct in the mid aspect of the right parietal lobe, there is also noted to be as cluster of small multiple acute infarcts present in the middle one third aspect of the right temporal lobe. Echocardiogram was negative for right to left interatrial shunt. On 06/15/2022, patient was seen and examined: On examination she appeared in good health and spirits, she does not appear to be in any distress. Vital signs as documented. Skin warm and dry and without overt rashes. Neck without JVD, thyroid appears normal, trachea is midline, neck is supple. Lungs clear, normal air movement was noted. Heart exam notable for regular rhythm, normal sounds and absence of murmurs, rubs or gallops. Abdomen unremarkable and without evidence of organomegaly, masses, or abdominal aortic enlargement, bowel sounds are present in all 4 quadrants, no abdominal tenderness was noted. Extremities nonedematous, no cyanosis was noted, no clubbing was noted. Neuro: Cranial nerves II through XII are grossly intact, no focal motor deficits were noted, sensation to light touch and pinprick is intact, motor exam 5/5 throughout. Psych: Patient is alert and oriented x3, she does not appear anxious or depressed, she does not appear agitated. On 06/15/2022, patient was seen and examined and felt to be stable condition for discharge home, a prescription was provided to her for a 30-day event monitor. Weight / BMI Weight Weight: 61.2 kg Body Mass Index (BMI) 23.1 ABG / Lab / Microbiology Data Result Diagrams: 06/14/22 06:00 06/14/22 08:08 Microbiology: Microbiology 06/13/22 18:21 Nasal Secretion SARS-CoV-2 & FLU Antigen (Rapid) - Final Radiography Diagnostic Testing: Radiology Impression Echocardiogram 06/13/22 21:48 Interpretation Summary Normal LV size. Left ventricular systolic function is normal. The estimated ejection fraction is 60 %. Bubble contrast study negative for right to left interatrial shunt. Structurally normal valves. Ordering Physician: Emily Verdugo Referring Physician: JOSE SEGURA Performed By: Namita Delcid RDCS Brain MRI 06/14/22 14:12 IMPRESSION: 1. A small to moderate size acute infarct is present in the mid aspect of the right parietal lobe extending to the periventricular white matter. A cluster of multiple small acute infarcts are also present in the middle one third aspect of the right temporal lobe directly beneath the larger infarct. 2. These infarcts appear unchanged from the head CT dated June 13, 2022 Electronically Signed: Troy Calloway MD at 15:18 EST Reading Location ID and State: [address] [place] [address] , Service support , D/C Instructions Discharge Diet: No restrictions Weight Bearing Status: Full weight bearing Meaningful Use Info Meaningful Use Diagnoses (Choose all that apply): Ischemic CVA CVA Therapy Assessed for PT,OT and/or ST?: Yes Ischemic Stroke Antithrombotic order at d/c?: Yes Dx of Atrial fib/flutter?: No Anticoagulant at discharge?: No Reason anticoagulant not ordered: Treatment not Indicated Statins at discharge?: Yes Primary Dx Acute Ischemic CVA?: Yes IV tPA ordered during stay?: No Reason IV t-PA not ordered: Treatment not Indicated Discharge Plan Admission Admit Date/Time: 06/13/22 20:38 Primary Reason for Your Visit: acute stroke Attending Provider: Guille Jamison Primary Care Provider: Jose Segura Consulting Providers: Emily Verdugo Instructions Additional Instructions / Restrictions: You will get a 30 day monitor in the mail-if you need help applying it, contact your family doctor Discharge Orders/Prescriptions Prescriptions: New aspirin 81 mg Tablet,Chewable 81 mg PO BREAKFAST Qty: 0 0RF atorvastatin 20 mg Tablet 20 mg PO QHS Qty: 30 0RF clopidogrel 75 mg Tablet 75 mg PO DAILY Qty: 30 0RF Continued albuterol sulfate 1 INHALER inhaler 2 puff inhalation Q4H PRN PRN (Reason: Sob &/Or Wheezing) fluoxetine 20 MG capsule 20 mg PO QHS levocetirizine 5 MG tablet 5 mg PO QHS magnesium oxide 400 MG capsule 400 mg PO DAILY losartan 100 MG tablet 100 mg PO DAILY Qty: 30 0RF hydrochlorothiazide 25 MG tablet 12.5 mg PO DAILY Qty: 15 0RF metoprolol tartrate 50 MG tablet 50 mg PO BID Qty: 60 0RF Other Ambulatory Orders: 30 Day Event Recorder Preventi (Routine) Timeframe: 1 Day Facility: [facility] - Location: Cardiovascular Services Ordered By: Dr. Guille Jamison Referrals / Follow Up: Jose Segura MD [Primary Care Provider] - 06/18/22 3:00 pm Disposition Disposition (needs filled in before D/C Order can be placed): Home, Self Care Charges/Coding Visit Charges Inpatient E&M: 20422 Disch Hosp >30min
--- NOTE | 2022-06-15 11:50 | PHA.DC.MC ---
Pharmacy Service has performed discharge medication reconciliation and counseling for this patient. MD aware of intolerance to lipitor. 1. ASPIRIN 81MG PO DAILY 2. ATORVASTATIN 20MG PO QHS 3. CLOPIDOGREL 75MG PO DAILY The patient's discharge medication list was reviewed for discrepancies and discrepancies were resolved. Home Medications albuterol sulfate 90 mcg/actuation aerosol inhaler 2 puff inhalation Q4H PRN PRN Sob &/Or Wheezing 11/02/18 fluoxetine 20 mg capsule 20 mg PO QHS depression 11/26/19 levocetirizine 5 mg tablet 5 mg PO QHS Check with primary doctor 11/26/19 magnesium oxide 400 mg PO DAILY suppliment 11/26/19 hydrochlorothiazide 25 mg tablet 12.5 mg PO DAILY #15 tabs 11/27/19 losartan 100 mg tablet 100 mg PO DAILY #30 tabs 11/27/19 metoprolol tartrate 50 mg tablet 50 mg PO BID #60 tabs 11/27/19 aspirin 81 mg chewable tablet 81 mg PO BREAKFAST #0 tabs 06/15/22 atorvastatin 20 mg tablet 20 mg PO QHS #30 tabs 06/15/22 clopidogrel 75 mg tablet 75 mg PO DAILY #30 tabs 06/15/22 The patient was counseled on the following discharge medications and changes in medications for homegoing were reviewed. The Reason for Use, instructions for use, and potential side effects were reviewed for all new medications. The patient's questions regarding all of their medications were answered. The patient was able to verbally demonstrate an understanding of their discharge medications.
[2022-06-15 12:45] VITALS: BMI 23.1
== END 2022-06-15 12:55 | disposition home or self-care (01) | DRG 66 ==
LOC: ED 19:58 → PCU 20:50
PROVIDERS: Admitting Provider Family Medicine; Emergency Provider Emergency Medicine; PCP Family Medicine; Visit Provider Internal Medicine
DX: I63.9 Cerebral infarction, unspecified (principal); F02.80 Dementia in other diseases classified elsewhere, unspecified severity, without behavioral disturbance, psychotic disturbance, mood disturbance, and anxiety; E03.9 Hypothyroidism, unspecified; G30.0 Alzheimer's disease with early onset; J44.9 Chronic obstructive pulmonary disease, unspecified; E78.00 Pure hypercholesterolemia, unspecified; I10 Essential (primary) hypertension; G25.81 Restless legs syndrome; F41.9 Anxiety disorder, unspecified; J30.9 Allergic rhinitis, unspecified; K21.9 Gastro-esophageal reflux disease without esophagitis; F32.A Depression, unspecified; F51.04 Psychophysiologic insomnia; R47.81 Slurred speech; R29.700 NIHSS score 0; R05.3 Chronic cough; Z79.02 Long term (current) use of antithrombotics/antiplatelets; Z79.82 Long term (current) use of aspirin; Z79.899 Other long term (current) drug therapy; Z85.3 Personal history of malignant neoplasm of breast; Z87.19 Personal history of other diseases of the digestive system; Z87.891 Personal history of nicotine dependence; Z66 Do not resuscitate
CPT/HCPCS: 36415; 70450; 70496; 70498; 70551; 71045; 80053; 80061; 80307; 81001; 83036; 83735; 84443; 85025; 85027; 85610; 85730; 87428; 92523; 93005; 93306; 94640; 94668; 94762; 97162; 97166; 97802; 99252; 99284; J7030; Q9967; A4216; G0463

== ENCOUNTER → 2022-08-09 | Outpatient (CLI) | payer MEDICARE, SELFPAY ==
[2022-08-09 18:45] LABS: Anion Gap 6 (5-15); BUN 12 mg/dL (7-18); BUN/Creat Ratio 14.6 RATIO (10-20); Calcium,Total 9.5 mg/dL (8.5-10.1); Chloride 100 mmol/L (98-107); Creatinine, Serum 0.82 mg/dL (0.55-1.02); EST Glomerular Filtration Rate 71 mL/min (>60); Est Glom Filt Rate - Afr Amer 85 mL/min (>60); Glucose 165 mg/dL (74-106); Magnesium 2.4 mg/dL (1.6-2.6); Potassium 3.5 mmol/L (3.5-5.1); Sodium Level 132 mmol/L (136-145)
== END | disposition home or self-care (01) ==
LOC: MFPLAB 15:08
PROVIDERS: PCP Family Medicine; Visit Provider Family Medicine
DX: E87.6 Hypokalemia (principal); I10 Essential (primary) hypertension
CPT/HCPCS: 36415; 80048; 83735

== ENCOUNTER 2022-09-07 17:48 | Emergency (ER) | payer MEDICARE, SELFPAY ==
[2022-09-07 17:50] VITALS: BP 138/76; PULSE 70; RESP 16; TEMP 36.2; O2SAT 98
[2022-09-07 18:08] VITALS: BMI 23.3
--- NOTE | 2022-09-07 18:15 | CT_ITS ---
EXAM: CT HEAD WITHOUT INTRAVENOUS CONTRAST CLINICAL INDICATION: speach slurred TECHNIQUE: Multiple axial images were obtained of the head without intravenous contrast. This CT exam was performed using one or more of the following dose reduction techniques: automated exposure control, adjustment of the mA and/or kV according to patient size, and/or use of iterative reconstruction technique. COMPARISON: 06/13/2022 FINDINGS: BRAIN AND EXTRA-AXIAL SPACES: There is encephalomalacia in the right parietal lobe compatible with a remote infarct. There is enlargement of ventricular system and cortical sulci. There is hypoattenuation in the periventricular white matter. No intra- or extra-axial hemorrhage. No intracranial mass or mass effect. Posterior fossa structures are unremarkable. Basal cisterns are patent. BONES/JOINTS: Unremarkable. No discrete lytic or blastic abnormalities. SINUSES: Unremarkable as visualized. Clear. MASTOID AIR CELLS: Unremarkable. Clear. ORBITS: Visualized globes, extraocular muscles, optic nerves and retrobulbar fat appear unremarkable. CT/Brain/Head without Contrast IMPRESSION: 1. No acute intracranial abnormality. There has been no significant change from the reference examination. 2. Stable underlying senescent change with small vessel ischemia. 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 Electronically Signed: Fraknie Kennedy MD at 19:22 EDT ,
--- NOTE | 2022-09-07 18:15 | EKG12_ITS ---
Test Reason : DYSRHYTHMIA Blood Pressure : / mmHG Vent. Rate : 065 BPM Atrial Rate : 065 BPM P-R Int : 162 ms QRS Dur : 084 ms QT Int : 440 ms P-R-T Axes : 030 002 060 degrees QTc Int : 457 ms Normal sinus rhythm Nonspecific ST and T wave abnormality Abnormal ECG Confirmed by ANNETTE BOONE, ZACH ([id number]), publication editor MIKKI BNENETT ([id number]) on 09/09/2022 8:55:50 AM Referred By: JS Confirmed By:ZACH BRYANT MD
--- NOTE | 2022-09-07 18:19 | EDS_ITS ---
HPI History of Present Illness Chief Complaint: General Illness Informant: patient Narrative Narrative: Patient states her wanted her to be seen. She evidently had slurred speech at home. Timing of when this started is not clear. The is not currently here to talk to. Patient states she has had TIAs but has no residual symptoms. She takes pain via this morning she feels she is also on Plavix. She states her thought her voice seemed a little slurred. But she states she has a southern accent and she was drinking bourbon and water so she thinks that might be the cause. She has no headaches. No numbness tingling weakness. She does not feel off balance. There has been no trauma fall fevers or chills. No change in medicines. Patient also states that for years she has produced extra saliva. This causes her to sometimes slur her words. [facility] Medical History Alzheimer's dementia Anxiety and depression Arthritis Confusion COPD (chronic obstructive pulmonary disease) Ductal carcinoma in situ (DCIS) of right breast GERD (gastroesophageal reflux disease) History of GI bleed HTN (hypertension) Hypercholesterolemia Hypothyroidism TIA (transient ischemic attack) Vitamin D deficiency Home Medications albuterol sulfate 90 mcg/actuation aerosol inhaler 2 puff inhalation Q4H PRN PRN Sob &/Or Wheezing 11/02/18 [History Last Taken Unknown] fluoxetine 20 mg capsule 20 mg PO QHS depression 11/26/19 [History Last Taken Unknown] levocetirizine 5 mg tablet 5 mg PO QHS Check with primary doctor 11/26/19 [History Last Taken 11/25/19 22:00] magnesium oxide 400 mg PO DAILY suppliment 11/26/19 [History Last Taken 11/25/19 08:00] hydrochlorothiazide 25 mg tablet 12.5 mg PO DAILY #15 tabs 11/27/19 [Rx Last Taken Unknown] losartan 100 mg tablet 100 mg PO DAILY #30 tabs 11/27/19 [Rx Last Taken Unknown] metoprolol tartrate 50 mg tablet 50 mg PO BID #60 tabs 11/27/19 [Rx Last Taken Unknown] aspirin 81 mg chewable tablet 81 mg PO BREAKFAST #0 tabs 06/15/22 [Rx Last Taken Unknown] atorvastatin 20 mg tablet 20 mg PO QHS #30 tabs 06/15/22 [Rx Last Taken Unknown] clopidogrel 75 mg tablet 75 mg PO DAILY #30 tabs 06/15/22 [Rx Last Taken Unknown] Allergy/AdvReac Type Severity Reaction Status Date / Time lisinopril Allergy Mild cough Verified 06/13/22 17:13 alendronate sodium Allergy Unknown unknown Verified 06/13/22 17:13 [From Fosamax] Sulfa (Sulfonamide Allergy Rash Verified 06/13/22 17:13 Antibiotics) atorvastatin [From Lipitor] AdvReac Mild muscle Verified 06/15/22 11:39 aches rosuvastatin [From Crestor] AdvReac Mild muscle Verified 06/15/22 11:39 aches codeine AdvReac Nausea Verified 06/13/22 17:13 NSAIDS (Non-Steroidal AdvReac Bleeding Verified 06/13/22 17:13 Anti-Inflamma Rqfrlzw-RWW-AvT Reductase AdvReac Other Verified 06/13/22 17:13 Inhibitor [Jemtcrz-Qfc-Dqy Reductase Inhibitor] Family History Mother Heart disease CVA (cerebral vascular accident) Father Heart disease Surgical History History of hysterectomy History of left mastoidectomy History of lumpectomy of right breast History of right hip replacement History of right hip replacement History of thyroid surgery Social History household members: spouse Smoking Status: Former smoker how long ago did patient quit smoking: Quit ~ 24-25 years prior. alcohol intake: current alcohol intake frequency: a few times a month details: 1 drink/[place] nightly. substance use type: other details: Given THC chew per her family for sleep but prior no substance use. ROS ROS ED ROS Narrative A complete review of systems was performed and is negative except as documented in the history of present illness. Some specific details below. Constitutional: No recent fevers or chills. She has had no malaise or not feeling ill recently EYE: No discharge, visual complaints, or pain. No visual cut. ENT: No difficulty swallowing. No swelling. No pain. No reflux symptoms. CV: No chest pain or palpitations Respiratory: She does not feel short of breath. No coughing. GI: No abdominal pain. No nausea vomiting diarrhea. No blood in stool. : No frequency dysuria or hematuria. Musculoskeletal: No recent trauma. No pains. No swelling. Skin: No rash. Nondiaphoretic. Neuro: No weakness or numbness. See history of present illness also Endocrine: No polyuria or polydipsia. EXAM Physical Exam Narrative Exam Narrative: CONSTITUTIONAL: Patient is nontoxic in appearance. The patient looks comfortable. Work of breathing looks normal. HEENT: No notable trauma. Mucous membranes moist. No sinus tenderness. No indication of pain with swallowing. No asymmetry of face with smiling or eyes. EYES: No conjunctival injection. No proptosis. Range of motion and visual parker are grossly normal. NECK:No JVD. No stridor. I hear no bruit. CARDIOVASCULAR: Regular rate. Regular rhythm. No notable murmur. No JVD. RESPIRATORY: No respiratory distress. Breathing is unlabored. No wheezes. No rhonchi. No rales. No pain with a deep breath. No chest wall tenderness. GASTROINTESTINAL: Not distended. Bowel sounds are normal. No tenderness. No guarding. No rebound. No palpable mass. No bruit is heard. GENITOURINARY: No tenderness over the bladder. No CVA tenderness. MUSCULOSKELETAL: Atraumatic. No peripheral edema. No cord. No tenderness along the deep venous system. No asymmetry. No distended veins. NEUROLOGICAL: Patient is alert and appropriate. No focal deficit noted. She does have slight slurring of the voice but its not hard to understand. There are no incorrect words. No receptive or expressive aphasia. Her symptoms very well could be due to alcohol in a southern accent. There is no variation in her speech. She speaks smoothly and quickly but there is just a small slur. NIH stroke scale I would really rank as 0. At the most she could get 1 for this minimal speech variation. SKIN: No noted rashes. No diaphoresis. PSYCHIATRIC: Patient is calm. Mood is appropriate. Const Vital Signs: 09/07/22 17:50 09/07/22 18:09 09/07/22 21:09 Temperature 97.2 F L Temperature Source Temporal Pulse Rate 70 Respiratory Rate 16 Respiratory Pattern Normal Blood Pressure 138/76 H 143/48 H Blood Pressure Mean 96 79 Pulse Ox 98 96 Oxygen Delivery Method Room Air Room Air MDM MDM MDM Narrative Medical decision making narrative: did come back. He verifies the story about the extra saliva. He states that she has had a slight slurring of her words for months. It probably even predates when she was in the hospital for a stroke this May. He states that today she seemed to be slurring slightly more. But now she seems to be back to baseline. They report that she only had 1 drink which was a jigger and a half of bourbon. They do verify that she is prescribed and is taking both Plavix aspirin and a statin. Patient CBC shows no acute process. Electrolytes show mildly low sodium at 123 and potassium at 3.3. Glucose and calcium are normal. Alcohol level was 79. My independent interpretation of the patient's CT showed no bleed or acute process. Final shows no interval change. I went back to talk with the patient. She has very subtle slurring of the words but evidently this is her baseline. This is similar to what I heard the first time. We discussed her findings including her symptoms, history of stroke, medications low-sodium and risks. We discussed admission to the hospital. She does not want this as she feels back to normal. I explained that I cannot force her to come in the hospital. But she does need close follow-up. She needs to continue her medications. She will need rechecked by her physician will likely need recheck of labs also. Lab Data Attestation: I reviewed the patient's lab results. Labs: Laboratory Results - last 24 hr 09/07/22 09/07/22 09/07/22 18:35 18:35 18:35 WBC 6.7 RBC 4.83 Hgb 13.8 Hct 41.8 MCV 86.5 MCH 28.6 MCHC 33.0 RDW Std Deviation 46.2 H RDW Coeff of Kierra 14.6 Plt Count 229 MPV 9.4 Immature Gran % (Auto) 0.600 Neut % (Auto) 65.1 Lymph % (Auto) 20.2 [place] % (Auto) 12.5 H Eos % (Auto) 1.0 Baso % (Auto) 0.6 Absolute Neuts (auto) 4.4 Absolute Lymphs (auto) 1.36 Nucleated RBC % 0 Sodium 123 L Potassium 3.3 L Chloride 89 L Carbon Dioxide 25.0 Anion Gap 9 BUN 14 Creatinine 0.75 Estim Creat Clear Calc 37.45 Est GFR (MDRD) Af Amer 95 Est GFR (MDRD) Non-Af 78 BUN/Creatinine Ratio 18.6 Glucose 99 Calcium 9.3 Ethyl Alcohol 79.0 Radiography Diagnostic Testing: Clinical Impression(s) from Imaging Studies Brain CT 09/07/22 18:15 IMPRESSION: 1. No acute intracranial abnormality. There has been no significant change from the reference examination. 2. Stable underlying senescent change with small vessel ischemia. 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 Electronically Signed: Frankie Kennedy MD at 19:22 EDT , EKG Initial EKG: Comments: My independent interpretation the patient's EKG done for work-up of slurred speech shows a normal sinus rhythm with overall rate of 65. No ectopy. Diffuse nonspecific ST and T wave change but no sign of infarct or ischemia. OR interval, QRS duration and QTc are normal. This is similar to her prior EKG of 13 June 2022. Discharge Plan Triage Chief Complaint: General Illness ED Provider: Terry Vuong Dx/Rx/DC Orders Clinical Impression: Slurred speech, Hyponatremia, Elevated ETOH level, History of stroke Instructions: Treating Dysarthria, ED Hyponatremia Prescriptions: No Action albuterol sulfate 1 INHALER inhaler 2 puff inhalation Q4H PRN PRN (Reason: Sob &/Or Wheezing) fluoxetine 20 MG capsule 20 mg PO QHS levocetirizine 5 MG tablet 5 mg PO QHS magnesium oxide 400 MG capsule 400 mg PO DAILY losartan 100 MG tablet 100 mg PO DAILY Qty: 30 0RF hydrochlorothiazide 25 MG tablet 12.5 mg PO DAILY Qty: 15 0RF metoprolol tartrate 50 MG tablet 50 mg PO BID Qty: 60 0RF aspirin 81 mg Tablet,Chewable 81 mg PO BREAKFAST Qty: 0 0RF atorvastatin 20 mg Tablet 20 mg PO QHS Qty: 30 0RF clopidogrel 75 mg Tablet 75 mg PO DAILY Qty: 30 0RF Primary Care Provider: Vikram Segura Referrals: Vikram Segura MD [Primary Care Provider] - 3-5 Days Disposition Disposition: Home, Self Care
[2022-09-07 18:54] LABS: Absolute Lymphocyte Count 1.36 X10^3/uL (0.83-4.51); Absolute Neutrophil Count 4.4 X10^3/uL (2.0-7.7); Basophil# 0.04 X10^3/uL; Basophil% 0.6 % (0-1); Eosinophil# 0.07 X10^3/uL; Hematocrit 41.8 % (37-47); Hemoglobin 13.8 g/dL (12.0-15.0); Lymphocyte # 1.36 X10^3/ul (0.83-4.51); Lymphocyte % 20.2 % (19-41); Mean Corpuscular Hgb 28.6 pg (27.0-32.0); Mean Corpuscular Volume 86.5 fL (81-99); Mean Platelet Vol. 9.4 fl (6.2-12.0); Monocyte# 0.84 X10^3/uL; Monocyte% 12.5 % (0-10); NRBC Flagged by Analyzer 0 % (0-5); Neutrophil # 4.38 X10^3/uL (2.7-7.7); Neutrophil % 65.1 % (47-70); Platelet Count 229 K/mm3 (150-450); RBC Distribution Width CV 14.6 % (11.6-14.6); RBC Distribution Width SD 46.2 fl (35.1-43.9); Red Blood Count 4.83 M/mm3 (4.2-5.4); White Blood Count 6.7 K/mm3 (4.4-11.0)
[2022-09-07 19:13] LABS: Anion Gap 9 (5-15); BUN 14 mg/dL (7-18); BUN/Creat Ratio 18.6 RATIO (10-20); Calcium,Total 9.3 mg/dL (8.5-10.1); Chloride 89 mmol/L (98-107); Creatinine, Serum 0.75 mg/dL (0.55-1.02); EST Glomerular Filtration Rate 78 mL/min (>60); Est Glom Filt Rate - Afr Amer 95 mL/min (>60); Estimated Creatinine Clearance 37.45 ml/min; Glucose 99 mg/dL (74-106); Potassium 3.3 mmol/L (3.5-5.1); Sodium Level 123 mmol/L (136-145)
[2022-09-07 21:09] VITALS: BP 143/48; O2SAT 96
[2022-09-07 22:06] VITALS: RESP 16
== END 2022-09-07 22:07 | disposition home or self-care (01) ==
PROVIDERS: Emergency Provider Emergency Medicine; PCP Family Medicine; Visit Provider Emergency Medicine
DX: R47.81 Slurred speech (principal); J44.9 Chronic obstructive pulmonary disease, unspecified; E87.1 Hypo-osmolality and hyponatremia; I10 Essential (primary) hypertension; Z87.891 Personal history of nicotine dependence; E78.00 Pure hypercholesterolemia, unspecified; Z86.73 Personal history of transient ischemic attack (TIA), and cerebral infarction without residual deficits; Z79.02 Long term (current) use of antithrombotics/antiplatelets; Z79.899 Other long term (current) drug therapy; F41.8 Other specified anxiety disorders; Z79.82 Long term (current) use of aspirin; Z90.710 Acquired absence of both cervix and uterus; Z96.641 Presence of right artificial hip joint; Y90.3 Blood alcohol level of 60-79 mg/100 ml
CPT/HCPCS: 70450; 80048; 82077; 85025; 93005; 99283; A4216

== ENCOUNTER 2022-10-12 21:59 | Emergency (ER) | payer MEDICARE, SELFPAY ==
[2022-10-12] VITALS (7 sets, daily range): BP systolic 105–131; BP diastolic 48–107; PULSE 64–68; RESP 15–20; TEMP 36.4; O2SAT 93–99; BMI 23.5
--- NOTE | 2022-10-12 22:02 | CT_ITS ---
We are attempting to reach an attending provider to discuss findings. An addendum with communication details will be sent when the communication is complete. INDICATION: Neuro deficit, acute, stroke suspected EXAMINATION: CT BRAIN - CT Head Stroke Protocol W/O Contrast Injection TECHNIQUE: Multiple axial images were obtained of the head with sagittal and coronal reconstructed images. Individualized dose optimization techniques were used for this CT. IV Contrast dosage and agent: None. COMPARISON: 09/07/2022 CT. FINDINGS: BRAIN PARENCHYMA: No evidence of an acute infarct or intracranial hemorrhage. No evidence of a mass. White matter changes consistent with moderate chronic microvascular disease. Stable chronic right parietal lobe infarct. CSF SPACES: The ventricles, sulci and subarachnoid cisterns are appropriate for age. CALVARIUM, SKULL BASE, PARANASAL SINUSES AND MASTOID AIR CELLS: No fracture. Mastoid air cells are clear. Visualized paranasal sinuses are unremarkable. ORBITS: The globes, extraocular muscles, optic nerves and retrobulbar fat are unremarkable. CT/STROKE Brain/Head without Cont IMPRESSION: No acute abnormality. Electronically Signed: Jim Montes DO at 22:22 EDT ,
--- NOTE | 2022-10-12 22:02 | EKG12_ITS ---
Test Reason : DYSRHYTHMIA Blood Pressure : / mmHG Vent. Rate : 063 BPM Atrial Rate : 063 BPM P-R Int : 166 ms QRS Dur : 086 ms QT Int : 446 ms P-R-T Axes : 043 014 020 degrees QTc Int : 456 ms Normal sinus rhythm Nonspecific T wave abnormality Abnormal ECG When compared with ECG of 07-SEP-2022 18:30, Nonspecific T wave abnormality, worse in Inferior leads Nonspecific T wave abnormality, improved in Lateral leads Confirmed by ANNETTE BOONE, ZACH ([id number]), managing editor MIKKI BENNETT ([id number]) on 10/15/2022 9:26:39 AM Referred By: GREGORY Confirmed By:ZACH BRYANT MD
--- NOTE | 2022-10-12 22:08 | CT_ITS ---
INDICATION: Neuro deficit, acute, stroke suspected EXAMINATION: CT HEAD AND NECK WITH CONTRAST - CTA Head and Neck W/ Contrast Injection (and W/O Contrast Images if performed) TECHNIQUE: Noncontrast axial images were obtained of the brain. Subsequently, routine carotid CT angiogram protocol was performed with IV contrast. In addition, images were obtained of the [place]. Sagittal and coronal reconstructed images and 3D reconstructions were reviewed. Individualized dose optimization techniques were used for this CT. IV contrast dosage and agent: 100 mL of Isovue-370. COMPARISON: 06/13/2022 CTA. FINDINGS: --CTA HEAD: No evidence of arterial flow limiting stenosis. No evidence of large vessel occlusion. 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 [place] anatomy is unremarkable. --CTA NECK: AORTIC ARCH AND BRANCHES: No significant stenosis of the visualized portions. RIGHT CCA: After sclerotic plaques of the carotid bulb with less than 50% stenosis. No dissection. RIGHT ICA: No significant stenosis. No dissection. LEFT CCA: Atherosclerotic plaques in the carotid bulb with less than 50% stenosis. No dissection. LEFT ICA: No significant stenosis. No dissection. RIGHT VERTEBRAL ARTERY: No significant stenosis. No dissection. LEFT VERTEBRAL ARTERY: No significant stenosis. No dissection. NECK SOFT TISSUES: Numerous thyroid nodules with the largest measuring 1.7 cm in the right lobe. Centrilobular emphysematous changes of the lungs. CT/STROKE CTA Head AND Neck W/Con IMPRESSION: 1. No evidence of intracranial arterial flow limiting stenosis or large vessel occlusion. 2. 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 3. No evidence of flow-limiting stenosis or dissection of the bilateral carotid or vertebral arteries. 4. Numerous thyroid nodules with the largest measuring 1.7 cm. Recommend follow-up with nonemergent thyroid ultrasound if this has not already been performed. 5. Centrilobular emphysematous changes of the lungs. Electronically Signed: Jim Montes DO at 22:44 EDT ,
[2022-10-12 22:23] LABS: Absolute Lymphocyte Count 1.07 X10^3/uL (0.83-4.51); Absolute Neutrophil Count 3.2 X10^3/uL (2.0-7.7); Basophil# 0.05 X10^3/uL; Basophil% 0.9 % (0-1); Eosinophil# 0.09 X10^3/uL; Eosinophils% 1.7 % (0-5); Hematocrit 34.4 % (37-47); Hemoglobin 11.3 g/dL (12.0-15.0); Lymphocyte # 1.07 X10^3/ul (0.83-4.51); Lymphocyte % 20.2 % (19-41); Mean Corp Hgb Conc 32.8 g/dL (32-36); Mean Corpuscular Hgb 29.2 pg (27.0-32.0); Mean Corpuscular Volume 88.9 fL (81-99); Mean Platelet Vol. 9.2 fl (6.2-12.0); Monocyte# 0.88 X10^3/uL; Monocyte% 16.6 % (0-10); NRBC Flagged by Analyzer 0 % (0-5); Neutrophil # 3.18 X10^3/uL (2.7-7.7); Neutrophil % 60.2 % (47-70); Platelet Count 205 K/mm3 (150-450); RBC Distribution Width CV 15.2 % (11.6-14.6); RBC Distribution Width SD 49.9 fl (35.1-43.9); Red Blood Count 3.87 M/mm3 (4.2-5.4); White Blood Count 5.3 K/mm3 (4.4-11.0)
--- NOTE | 2022-10-12 22:28 | ED.RN ---
Dr. Rancho Sandoval talking with Dr. Cam at bedside with patient.
--- NOTE | 2022-10-12 22:30 | RAD_ITS ---
INDICATION: Neuro deficit, acute, stroke suspected EXAMINATION/TECHNIQUE: X-RAY - XR Chest 1 View AP portable. 10:30 PM COMPARISON: 09/26/2020 FINDINGS: LINES/DEVICES: None. LUNGS: No consolidation. No pneumothorax. MEDIASTINUM: Aorta is atherosclerotic. CARDIAC SILHOUETTE: Not enlarged. BONES AND SOFT TISSUES: No acute abnormalities. RAD/Chest 1 View IMPRESSION: No evidence of active intrathoracic disease. Electronically Signed: Fay Shannon MD at 23:02 EDT ,
[2022-10-12 22:35] LABS: International Normalized Ratio 1.1; Prothrombin Time (Protime)PT. 14.2 SECONDS (11.7-14.9)
[2022-10-12 22:36] LABS: Anion Gap 8 (5-15); BUN 14 mg/dL (7-18); BUN/Creat Ratio 14.9 RATIO (10-20); Calcium,Total 8.5 mg/dL (8.5-10.1); Chloride 101 mmol/L (98-107); Creatinine, Serum 0.94 mg/dL (0.55-1.02); EST Glomerular Filtration Rate 61 mL/min (>60); Est Glom Filt Rate - Afr Amer 74 mL/min (>60); Estimated Creatinine Clearance 39.85 ml/min; Glucose 119 mg/dL (74-106); Partial Thromboplast Time 33.8 Seconds (24.1-36.2); Potassium 3.3 mmol/L (3.5-5.1); Sodium Level 132 mmol/L (136-145)
--- NOTE | 2022-10-12 22:37 | ED.RN ---
called for update, pt now on phone with .
--- NOTE | 2022-10-12 23:15 | ED.RN ---
PER PT SPEECH IS BACK TO BASELINE THAT WAS BEFORE COMING TO THE ER.
--- NOTE | 2022-10-12 23:24 | EDS_ITS ---
HPI History of Present Illness Chief Complaint: Stroke Alert Informant: patient, spouse/S.O. and EMS Narrative Narrative: Patient is a 2-year-old female with past medical history of recurrent TIAs previous CVA hypertension hyperlipidemia currently on aspirin and Plavix. Patient and EMS report that the patient's went out for a walk and after coming home and using the restroom came out to find the patient with worsening slurred speech left arm weakness and drooling. Based on her history of previous TIA and stroke he was concern for this once again so EMS was called. EMS confirms and they arrived patient was awake and alert but drooling with slurred speech and left arm weakness but they state fell to her side without much resistance against gravity. They reported her sugar was normal and based on concern for an acute stroke transported to the hospital for evaluation. They state onset of symptoms roughly 30 minutes prior to arrival. EMS states that upon reaching the ER patient symptoms have already spontaneously improved [facility] Medical History Alzheimer's dementia Anxiety and depression Arthritis Confusion COPD (chronic obstructive pulmonary disease) Ductal carcinoma in situ (DCIS) of right breast GERD (gastroesophageal reflux disease) History of GI bleed HTN (hypertension) Hypercholesterolemia Hypothyroidism TIA (transient ischemic attack) Vitamin D deficiency Home Medications fluoxetine 20 mg capsule 20 mg PO QHS depression 11/26/19 [History Last Taken Unknown] levocetirizine 5 mg tablet 5 mg PO QHS Check with primary doctor 11/26/19 [History Last Taken 11/25/19 22:00] hydrochlorothiazide 25 mg tablet 12.5 mg PO DAILY #15 tabs 11/27/19 [Rx Last Taken Unknown] losartan 100 mg tablet 100 mg PO DAILY #30 tabs 11/27/19 [Rx Last Taken Unknown] metoprolol tartrate 50 mg tablet 50 mg PO BID #60 tabs 11/27/19 [Rx Last Taken Unknown] aspirin 81 mg chewable tablet 81 mg PO BREAKFAST #0 tabs 06/15/22 [Rx Last Taken Unknown] atorvastatin 20 mg tablet 20 mg PO QHS #30 tabs 06/15/22 [Rx Last Taken Unknown] clopidogrel 75 mg tablet 75 mg PO DAILY #30 tabs 06/15/22 [Rx Last Taken Unknown] magnesium 500 mg tablet 500 mg PO DAILY 10/12/22 [History Last Taken Unknown] Allergy/AdvReac Type Severity Reaction Status Date / Time lisinopril Allergy Mild cough Verified 10/12/22 22:04 alendronate sodium Allergy Unknown unknown Verified 10/12/22 22:04 [From Fosamax] Sulfa (Sulfonamide Allergy Rash Verified 10/12/22 22:04 Antibiotics) atorvastatin [From Lipitor] AdvReac Mild muscle Verified 10/12/22 22:04 aches rosuvastatin [From Crestor] AdvReac Mild muscle Verified 10/12/22 22:04 aches codeine AdvReac Nausea Verified 10/12/22 22:04 NSAIDS (Non-Steroidal AdvReac Bleeding Verified 10/12/22 22:04 Anti-Inflamma Upxhgfh-SNG-DbX Reductase AdvReac Other Verified 10/12/22 22:04 Inhibitor [Fuiqmci-Pia-Yec Reductase Inhibitor] Family History Mother Heart disease CVA (cerebral vascular accident) Father Heart disease Surgical History History of hysterectomy History of left mastoidectomy History of lumpectomy of right breast History of right hip replacement History of right hip replacement History of thyroid surgery Social History household members: spouse Smoking Status: Former smoker how long ago did patient quit smoking: Quit ~ 24-25 years prior. alcohol intake: current alcohol intake frequency: a few times a month details: 1 drink/[place] nightly. substance use type: other details: Given THC chew per her family for sleep but prior no substance use. ROS ROS ED Constitutional Constitutional ED: Denies chills or fever(s) Eyes Eyes: Denies change in vision ENT ENT ED: Denies sore throat Cardiovascular Cardiovascular: Denies chest pain, palpitations or racing heartbeat Respiratory/Chest Respiratory/Chest: Denies cough or dyspnea Gastrointestinal Gastrointestinal: Denies abdominal pain, diarrhea, nausea or vomiting Genitourinary Genitourinary ED: Denies dysuria Musculoskeletal Musculoskeletal: Denies myalgias Integumentary Denies rash Neurologic Neurologic: Reports weakness; Denies headache(s) Hematologic/Lymphatic Hematologic/Lymphatic: Reports easy bleeding and easy bruising EXAM Physical Exam Const Vital Signs: 10/12/22 22:06 10/12/22 22:16 10/12/22 22:02 Temperature 97.6 F L 97.6 F L 97.6 F L Temperature Source Temporal Temporal Temporal Pulse Rate 64 68 67 Respiratory Rate 18 17 18 Blood Pressure 105/63 121/48 H 131/62 H Blood Pressure Mean 77 72 85 Pulse Ox 93 95 94 Oxygen Delivery Method Room Air Room Air Room Air 10/12/22 22:32 10/12/22 23:00 10/12/22 23:02 Temperature Temperature Source Pulse Rate 67 64 64 Respiratory Rate 20 H 16 Blood Pressure 124/107 H 123/62 H Blood Pressure Mean 112 82 Pulse Ox 95 97 Oxygen Delivery Method Room Air Room Air Positive well nourished and well developed General Appearance ED: well developed HEENT Reports moist mucous membranes Eyes PERRL and EOMs intact bilaterally Neck supple and no JVD Resp normal respiratory effort and clear to auscultation bilaterally Cardio regular rate and regular rhythm Rate: other Other Details: Radial pulses are plus 2 out of 4 bilaterally are equal and symmetric GI normal to inspection, nondistended, normoactive bowel sounds, non-tender, non- distended and no masses GI Narrative: No voluntary guarding or rigidity no pulsatile mass or fluid wave Auscultation: normoactive bowel sounds Palpation: soft Extremity normal to inspection Extremity Narrative: No asymmetric edema no pitting edema negative Homans' sign bilaterally Neuro oriented x3 and CN's II-XII intact bilaterally Neuro Narrative: Cranial nerves II through XII are grossly intact. No focal neurologic deficit. No pronator drift. No dysmetria. No truncal ataxia. NIH stroke scale score of 0. Patient has recurrent slurred speech but this is baseline per patient and and she does have an evaluations by speech therapy earlier this month stating speech is slurred at baseline. Sensorium / Orientation: alert Psych mental status grossly normal Skin no rashes or lesions noted MDM MDM MDM Narrative Medical decision making narrative: Patient presented to the ER with stable vitals and spontaneously improving symptoms with NIH stroke scale score of 0 upon arrival. However based on her previous history of stroke and TIAs I did elect to perform a stroke work-up that included a CT and CTA. Stroke alert was activated upon her arrival secondary to concern for this. Lab work revealed no clinically significant findings and her CT and CTA also revealed no acute bleed mass or significant flow-limiting stenosis or obstruction. On reevaluation her stroke scale score remains 0 and patient feels normal with stable vitals. She was evaluated by the telemetry neurologist and they agree that there is no need for tPA based on her rapidly improving symptoms and negative imaging studies. They feel that patient could undergo admission for further testing such as carotid duplex and MRI but also notes that she has had these tests recently and most likely would not change her treatment options/strategy as she is already on aspirin and Plavix. I discussed the patient's work-up with her and her and at this time as her symptoms have spontaneous resolved and she is already on treatment for this they would like to pursue further evaluation on outpatient basis and therefore patient be discharged at this time. History & Record Review Discussion w/independent historian: EMS personnel, Patient and Significant other Lab Data Attestation: I reviewed the patient's lab results. Labs: Laboratory Results - last 24 hr 10/12/22 10/12/22 10/12/22 22:15 22:15 22:15 WBC 5.3 RBC 3.87 L Hgb 11.3 L Hct 34.4 L MCV 88.9 MCH 29.2 MCHC 32.8 RDW Std Deviation 49.9 H RDW Coeff of Kierra 15.2 H Plt Count 205 MPV 9.2 Immature Gran % (Auto) 0.400 Neut % (Auto) 60.2 Lymph % (Auto) 20.2 [place] % (Auto) 16.6 H Eos % (Auto) 1.7 Baso % (Auto) 0.9 Absolute Neuts (auto) 3.2 Absolute Lymphs (auto) 1.07 Nucleated RBC % 0 PT 14.2 INR 1.1 APTT 33.8 Sodium 132 L Potassium 3.3 L Chloride 101 Carbon Dioxide 23.0 Anion Gap 8 BUN 14 Creatinine 0.94 Estim Creat Clear Calc 39.85 Est GFR (MDRD) Af Amer 74 Est GFR (MDRD) Non-Af 61 BUN/Creatinine Ratio 14.9 Glucose 119 H Calcium 8.5 Radiography Diagnostic Testing: Clinical Impression(s) from Imaging Studies Brain CT 10/12/22 22:02 IMPRESSION: No acute abnormality. Electronically Signed: Jim Montes DO at 22:22 EDT , ADDENDUM: 10/12/222228 IMPRESSION: No acute abnormality. N.B. : The above Results were Read Back by Jim Montes DO to Yoel Cam DO, and understanding confirmed on 10/12/2022 22:22:29 (ET). Electronically Signed: Jim Montes DO at 22:22 EDT , Head/Neck CTA 10/12/22 22:08 IMPRESSION: 1. No evidence of intracranial arterial flow limiting stenosis or large vessel occlusion. 2. 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 3. No evidence of flow-limiting stenosis or dissection of the bilateral carotid or vertebral arteries. 4. Numerous thyroid nodules with the largest measuring 1.7 cm. Recommend follow-up with nonemergent thyroid ultrasound if this has not already been performed. 5. Centrilobular emphysematous changes of the lungs. Electronically Signed: Jim Montes DO at 22:44 EDT , Chest X-Ray 10/12/22 22:30 IMPRESSION: No evidence of active intrathoracic disease. Electronically Signed: Fay Shannon MD at 23:02 EDT , 1 view chest x-ray as interpreted by the emergency medicine physician reveals no acute infiltrate pneumothorax or pleural effusion Management Discussion w/another healthcare provider: [employer] Discharge Plan Triage Chief Complaint: Stroke Alert ED Provider: Yoel Cam Dx/Rx/DC Orders Clinical Impression: TIA (transient ischemic attack), HTN (hypertension), HLD (hyperlipidemia) Instructions: ED TIA: Transient Ischemic Attack Prescriptions: No Action fluoxetine 20 MG capsule 20 mg PO QHS levocetirizine 5 MG tablet 5 mg PO QHS losartan 100 MG tablet 100 mg PO DAILY Qty: 30 0RF hydrochlorothiazide 25 MG tablet 12.5 mg PO DAILY Qty: 15 0RF metoprolol tartrate 50 MG tablet 50 mg PO BID Qty: 60 0RF aspirin 81 mg Tablet,Chewable 81 mg PO BREAKFAST Qty: 0 0RF atorvastatin 20 mg Tablet 20 mg PO QHS Qty: 30 0RF clopidogrel 75 mg Tablet 75 mg PO DAILY Qty: 30 0RF magnesium 500 mg Tablet 500 mg PO DAILY Primary Care Provider: Vikram Segura Referrals: Vikram Segura MD [Primary Care Provider] - Activity Restrictions/Additional Instructions: Continue your aspirin and Plavix and follow-up with a neurologist to discuss further testing to further delineate if this is recurrent TIAs versus small seizure activity. If you have any further concerns return to the hospital for repeat evaluation Disposition Disposition: Home, Self Care
== END 2022-10-12 23:46 | disposition home or self-care (01) ==
PROVIDERS: Emergency Provider Emergency Medicine; PCP Family Medicine; Visit Provider Emergency Medicine
DX: G45.9 Transient cerebral ischemic attack, unspecified (principal); G30.9 Alzheimer's disease, unspecified; F02.80 Dementia in other diseases classified elsewhere, unspecified severity, without behavioral disturbance, psychotic disturbance, mood disturbance, and anxiety; J44.9 Chronic obstructive pulmonary disease, unspecified; I10 Essential (primary) hypertension; E78.00 Pure hypercholesterolemia, unspecified; F32.A Depression, unspecified; Z79.02 Long term (current) use of antithrombotics/antiplatelets; Z79.82 Long term (current) use of aspirin; Z79.899 Other long term (current) drug therapy; Z86.73 Personal history of transient ischemic attack (TIA), and cerebral infarction without residual deficits; Z87.891 Personal history of nicotine dependence
CPT/HCPCS: 70450; 70496; 70498; 71045; 80048; 85025; 85610; 85730; 93005; 99285; Q9967; A4216

== ENCOUNTER 2022-10-16 21:24 | Observation (INO) | payer MEDICARE, SELFPAY ==
[2022-10-16 21:26] VITALS: BP 141/69; PULSE 67; RESP 18; TEMP 36; O2SAT 96; BMI 22.6
[2022-10-16 21:28] VITALS: BP 111/65; PULSE 66; RESP 18; O2SAT 93
--- NOTE | 2022-10-16 21:28 | CT_ITS ---
We are attempting to reach an attending provider to discuss findings. An addendum with communication details will be sent when the communication is complete. INDICATION: Neuro deficit, acute, stroke suspected EXAMINATION: CT BRAIN - CT Head Stroke Protocol W/O Contrast Injection TECHNIQUE: Multiple axial images were obtained of the head without intravenous contrast. A radiation dose optimization technique was used for this scan. IV Contrast dosage and agent: None. RADIATION DOSAGE (If Supplied By Facility): CTDIvol = ( ) mGy, DLP = ( ) mGycm COMPARISON: FINDINGS: BRAIN PARENCHYMA: No intra- or extra-axial hemorrhage. There is a stable focus of subcortical low attenuation within the right parietal superior posterior aspect of the temporal lobe suggesting a prior infarct. No intracranial mass or mass effect. There is preservation of the rollins/white matter interface. Posterior fossa structures are unremarkable. There is persistent subtle low attenuation in the subcortical white matter of the right temporal lobe. There is calcification of the bilateral cavernous carotid arteries. There is a small focus of low attenuation within the left-sided thalamus table since prior studies. CSF SPACES: There is visualized mild atrophy. No hydrocephalus. Basal cisterns are patent. CALVARIUM, SKULL BASE, PARANASAL SINUSES AND MASTOID AIR CELLS: Clear. No discrete lytic or blastic abnormalities. ORBITS: Both globes, extraocular muscles, optic nerves and retrobulbar fat appear unremarkable. ASPECTS Score for Acute Strokes: 10 CT/STROKE Brain/Head without Cont IMPRESSION: Stable focus of prior ischemic change in the right parietal temporal lobe. No visualized acute hemorrhage infarct or edema or significant change since the prior studies. Electronically Signed: Maria Guadalupe Munoz MD at 22:12 EDT ,
--- NOTE | 2022-10-16 21:28 | EKG12_ITS ---
Test Reason : AMS Blood Pressure : / mmHG Vent. Rate : 065 BPM Atrial Rate : 065 BPM P-R Int : 156 ms QRS Dur : 084 ms QT Int : 418 ms P-R-T Axes : 021 000 012 degrees QTc Int : 434 ms Normal sinus rhythm Nonspecific ST and T wave abnormality Abnormal ECG Confirmed by ANNETTE BOONE, ZACH ([id number]), editor greeting card MIKKI BENNETT ([id number]) on 10/18/2022 12:42:43 PM Referred By: Confirmed By:ZACH BRYANT MD
[2022-10-16 21:37] LABS: Absolute Lymphocyte Count 1.32 X10^3/uL (0.83-4.51); Absolute Neutrophil Count 4.1 X10^3/uL (2.0-7.7); Basophil# 0.06 X10^3/uL; Basophil% 0.9 % (0-1); Eosinophil# 0.11 X10^3/uL; Eosinophils% 1.6 % (0-5); Hemoglobin 13.2 g/dL (12.0-15.0); Lymphocyte # 1.32 X10^3/ul (0.83-4.51); Lymphocyte % 19.7 % (19-41); Mean Corpuscular Hgb 29.6 pg (27.0-32.0); Mean Corpuscular Volume 89.7 fL (81-99); Monocyte# 1.13 X10^3/uL; Monocyte% 16.8 % (0-10); NRBC Flagged by Analyzer 0 % (0-5); Neutrophil # 4.06 X10^3/uL (2.7-7.7); Neutrophil % 60.6 % (47-70); Platelet Count 248 K/mm3 (150-450); RBC Distribution Width CV 14.8 % (11.6-14.6); RBC Distribution Width SD 48.7 fl (35.1-43.9); Red Blood Count 4.46 M/mm3 (4.2-5.4); White Blood Count 6.7 K/mm3 (4.4-11.0)
--- NOTE | 2022-10-16 21:41 | EX.ED.DYSGE1 ---
HPI History of Present Illness Chief Complaint: Mental Status Change Informant: patient, spouse/S.O. and family Narrative Narrative: Patient had another one of her episodes tonight. She had 1 of these last night. She had one on Tuesday. I have seen her for 1. She has had multiple others. They usually occur in the evening. She gets very weak lightheaded and decreased responsive. It seems like her breathing is shallow. Her states that it took 15 minutes for her to go down the steps with his help. She does not actually pass out. I do not get any focal deficit. They deny any specific weakness. Her speech gets a little bit slurred but she states it that way all the time and her speech is similar to when I saw her last time. She states she had the Zoom evaluation by the neurologist on last visit. They stated that if this is a TIA she is already on all of the medicines. She is allergic to statins but she is on dual antiplatelet therapy. She also has sleep apnea. She only sleeps a couple hours at night and she gets very tired at night. She cannot use a mask because it just does not work well with her. Instead she uses oxygen sometimes at night. But she never has dyspnea during the day. If she is up walking and moving around she is not ever short of breath. That only occurs at night if she tries to sleep. She has had no fevers or chills. It seems like she and the family agrees that she is back to normal now. The family is also very upset because she does not listen to them. She acts like she knows everything. She will not allow them to go to doctors visits with her so they do not know what is going on medically. She had evidently refused admission last time. Her daughter states that she did and the patient states that she did but the states that that is not true. There seems to be quite a bit of social stress between the patient her family and her . [facility] Medical History Alzheimer's dementia Anxiety and depression Arthritis Confusion COPD (chronic obstructive pulmonary disease) Ductal carcinoma in situ (DCIS) of right breast GERD (gastroesophageal reflux disease) History of GI bleed HTN (hypertension) Hypercholesterolemia Hypothyroidism TIA (transient ischemic attack) Vitamin D deficiency Home Medications fluoxetine 20 mg capsule 20 mg PO QHS depression 11/26/19 [History Last Taken Unknown] levocetirizine 5 mg tablet 5 mg PO QHS Check with primary doctor 11/26/19 [History Last Taken 11/25/19 22:00] hydrochlorothiazide 25 mg tablet 12.5 mg (1/2 x 25 mg) PO DAILY #15 tabs 11/27/19 [Rx Last Taken Unknown] losartan 100 mg tablet 100 mg PO DAILY #30 tabs 11/27/19 [Rx Last Taken Unknown] metoprolol tartrate 50 mg tablet 50 mg PO BID #60 tabs 11/27/19 [Rx Last Taken Unknown] aspirin 81 mg chewable tablet 81 mg PO BREAKFAST #0 tabs 06/15/22 [Rx Last Taken Unknown] atorvastatin 20 mg tablet 20 mg PO QHS #30 tabs 06/15/22 [Rx Last Taken Unknown] clopidogrel 75 mg tablet 75 mg PO DAILY #30 tabs 06/15/22 [Rx Last Taken Unknown] magnesium 500 mg tablet 500 mg PO DAILY 10/12/22 [History Last Taken Unknown] amlodipine 10 mg tablet mg 10/16/22 [History Last Taken Unknown] hydralazine 25 mg tablet mg 10/16/22 [History Last Taken Unknown] mirtazapine 15 mg tablet mg 10/16/22 [History Last Taken Unknown] pantoprazole 40 mg tablet,delayed release mg PO 10/16/22 [History Last Taken Unknown] pramipexole 1.5 mg tablet mg 10/16/22 [History Last Taken Unknown] valsartan 320 mg-hydrochlorothiazide 25 mg tablet tab 10/16/22 [History Last Taken Unknown] Allergy/AdvReac Type Severity Reaction Status Date / Time lisinopril Allergy Mild cough Verified 10/16/22 21:26 alendronate sodium Allergy Unknown unknown Verified 10/16/22 21:26 [From Fosamax] Sulfa (Sulfonamide Allergy Rash Verified 10/16/22 21:26 Antibiotics) atorvastatin [From Lipitor] AdvReac Mild muscle Verified 10/16/22 21:26 aches rosuvastatin [From Crestor] AdvReac Mild muscle Verified 10/16/22 21:26 aches codeine AdvReac Nausea Verified 10/16/22 21:26 NSAIDS (Non-Steroidal AdvReac Bleeding Verified 10/16/22 21:26 Anti-Inflamma Efhrvlr-ELU-KfS Reductase AdvReac Other Verified 10/16/22 21:26 Inhibitor [Lruecgw-Yqx-Dyf Reductase Inhibitor] Family History Mother Heart disease CVA (cerebral vascular accident) Father Heart disease Surgical History History of hysterectomy History of left mastoidectomy History of lumpectomy of right breast History of right hip replacement History of right hip replacement History of thyroid surgery Social History household members: spouse Smoking Status: Former smoker how long ago did patient quit smoking: Quit ~ 24-25 years prior. alcohol intake: current alcohol intake frequency: a few times a month details: 1 drink/[place] nightly. substance use type: other details: Given THC chew per her family for sleep but prior no substance use. ROS ROS ED ROS Narrative A complete review of systems was performed and is negative except as documented in the history of present illness. Some specific details below. Constitutional: No recent fevers or chills. No rigors. Patient has not generally felt ill. During the day she feels fine. EYE: No discharge, visual complaints, or visual field cut. ENT: No difficulty swallowing. No swelling. CV: No chest pain, pressure or aching. No palpitations or irregular beats. Patient has not been presyncopal or syncopal. She gets very lightheaded and weak and decreased responsiveness but has never fallen or passed out. Respiratory: No trouble breathing except occasionally at night. No cough. No wheezing. No sputum production. No pain with breathing. GI: No abdominal pain. No nausea vomiting diarrhea. No blood in stool. : No frequency dysuria or hematuria. Musculoskeletal: No recent trauma. No pains. No swelling. Skin: No rash. Nondiaphoretic. Neuro: No focal weakness or numbness. No visual loss. Please see history of present illness also. Endocrine: No polyuria or polydipsia. EXAM Physical Exam Narrative Exam Narrative: CONSTITUTIONAL: Patient is nontoxic in appearance. The patient looks comfortable. Work of breathing looks normal. She is wide-awake pleasant and talks as soon as I enter the room. HEENT: No notable trauma. Mucous membranes moist. No sinus tenderness. No facial droop or asymmetry noted. EYES: No conjunctival injection. No proptosis. No pain with range of motion. No pallor. There is just a hint of nystagmus with lateral gaze. But she does not get dizzy with this. NECK: No meningismus. No JVD. CARDIOVASCULAR: Regular rate. Regular rhythm. No notable murmur. No JVD. RESPIRATORY: No respiratory distress. Breathing is unlabored. No wheezes. No rhonchi. No rales. No pain with a deep breath. GASTROINTESTINAL: Not distended. Bowel sounds are normal. No tenderness. No guarding. No rebound. No palpable mass. No bruit. GENITOURINARY: No tenderness over the bladder. No CVA tenderness. MUSCULOSKELETAL: Atraumatic. No peripheral edema. No cord. No tenderness along the deep venous system. No asymmetry. NEUROLOGICAL: Patient is alert and oriented. No focal deficit noted. NIH stroke scale is 0. No lateralizing finding. Great barrel inspector tight strength. Normal coordination. Her speech has a little bit of slowness to it but she states this is a southern drawl and that way she always speaks. This is in fact the way she sounded last time I saw her. SKIN: No noted rashes. No diaphoresis. No vesicles noted. No notable pallor. PSYCHIATRIC: Patient is calm. Mood is appropriate. Const Vital Signs: 10/16/22 21:26 10/16/22 21:28 10/16/22 21:58 Temperature 96.8 F L Temperature Source Temporal Pulse Rate 67 66 62 Respiratory Rate 18 18 18 Blood Pressure 141/69 H 111/65 128/109 H Blood Pressure Mean 93 80 115 Pulse Ox 96 93 94 Oxygen Delivery Method Room Air Room Air Room Air 10/16/22 22:28 10/16/22 22:58 10/16/22 23:00 Temperature Temperature Source Pulse Rate 68 68 65 Respiratory Rate 17 19 H 18 Blood Pressure 125/67 H 120/64 123/63 H Blood Pressure Mean 86 82 83 Pulse Ox 93 94 94 Oxygen Delivery Method Room Air Room Air Room Air 10/17/22 00:00 Temperature Temperature Source Pulse Rate 65 Respiratory Rate 19 H Blood Pressure 137/62 H Blood Pressure Mean 87 Pulse Ox 92 Oxygen Delivery Method Room Air MDM MDM MDM Narrative Medical decision making narrative: Patient CBC is normal. Patient's electrolytes are normal. Patient's troponin is negative. Patient's alcohol is negative. Independent interpretation of patient's chest x-ray shows no acute process final reading is similar Patient CT scan of the head shows old changes but no acute. I did my independent reading and this is similar to official reading. I also reviewed her MRI that was done back in May when she did have an acute stroke. I have talked extensively with the patient and her and daughter. There is a lot of social stress between the 3. But it sounds like she is having recurrent episodes where she is essentially unresponsive. It sounds like they are worsening. But she is not getting a focal deficit. There is not been seizure activity. She states she can hear and be aware of things but it is hard to respond. I do not know if she is having dysrhythmia. This almost sounds like near syncopal episodes. She states she is too weak to move when this happens and she oftentimes cannot speak. I am not sure if this is TIA or this might be another process. Family does not want her to go home and is not comfortable taking her home. She has agreed to come in the hospital to have this further evaluated. She evidently was supposed to see a [employer] senior specialist a couple years ago for unknown issues but never did. Family with like to see if Dr. Sidhu can see the patient. I will call the hospitalist and discussed the case with them. Lab Data Attestation: I reviewed the patient's lab results. Labs: Laboratory Results - last 24 hr 10/16/22 10/16/22 21:20 21:29 WBC 6.7 RBC 4.46 Hgb 13.2 Hct 40.0 MCV 89.7 MCH 29.6 MCHC 33.0 RDW Std Deviation 48.7 H RDW Coeff of Kierra 14.8 H Plt Count 248 MPV 9.0 Immature Gran % (Auto) 0.400 Neut % (Auto) 60.6 Lymph % (Auto) 19.7 [place] % (Auto) 16.8 H Eos % (Auto) 1.6 Baso % (Auto) 0.9 Absolute Neuts (auto) 4.1 Absolute Lymphs (auto) 1.32 Nucleated RBC % 0 PT 13.4 INR 1.0 APTT 33.1 Sodium 132 L Potassium 3.6 Chloride 99 Carbon Dioxide 28.0 Anion Gap 5 BUN 14 Creatinine 0.98 Estim Creat Clear Calc 38.22 Est GFR (MDRD) Af Amer 70 Est GFR (MDRD) Non-Af 58 L BUN/Creatinine Ratio 14.3 Glucose 105 Calcium 10.1 Troponin I High Sens 11 Ethyl Alcohol < 3.0 POC Glucose 109 H Radiography Diagnostic Testing: Clinical Impression(s) from Imaging Studies Brain CT 10/16/22 21:28 IMPRESSION: Stable focus of prior ischemic change in the right parietal temporal lobe. No visualized acute hemorrhage infarct or edema or significant change since the prior studies. Electronically Signed: Maria Guadalupe Munoz MD at 22:12 EDT , ADDENDUM: 10/16/22 2223 IMPRESSION: Stable focus of prior ischemic change in the right parietal temporal lobe. No visualized acute hemorrhage infarct or edema or significant change since the prior studies. N.B. : The above Results were Read Back by Maria Guadalupe Munoz MD to Terry Vuong MD, and understanding confirmed on 10/16/2022 22:16:51 (ET). Electronically Signed: Maria Guadalupe Munoz MD at 22:12 EDT , Chest X-Ray 10/16/22 21:50 IMPRESSION: No demonstrated acute cardiopulmonary process. Electronically Signed: Maria Guadalupe Munoz MD at 22:42 EDT , EKG Initial EKG: Comments: My independent interpretation the EKG shows normal sinus rhythm with a rate of 65. Mild irregular baseline but no acute ST elevation or depression. No ectopy. DE interval QRS duration and QTc are normal. Management Discussion w/another healthcare provider: Hospitalist Discharge Plan Dx/Rx/DC Orders Clinical Impression: Recurrent episodes of unresponsiveness, History of CVA in adulthood, History of dementia Disposition Disposition: [facility]
[2022-10-16 21:47] LABS: Bedside Glucose 109 mg/dL (74-106)
[2022-10-16 21:49] LABS: Prothrombin Time (Protime)PT. 13.4 SECONDS (11.7-14.9)
--- NOTE | 2022-10-16 21:50 | RAD_ITS ---
STUDY: X-RAY CHEST REASON FOR EXAM: Female, 82 years old. Neuro deficit, acute, stroke suspected TECHNIQUE: Single AP portable view of the chest. COMPARISON: October 12, 2022 chest x-ray FINDINGS: The lungs are clear and expanded. There is no demonstrated pleural abnormality. Normal size heart. Normal mediastinum and musa. Normal visualized pulmonary arteries. There is atherosclerotic calcification of the aortic arch with tortuosity. There are diffuse degenerative changes of the visualized thoracic spine. There are of age prior left-sided rib fractures at the level of left rib 4, 5, 6, 7. There is no demonstrated abnormality of the visualized soft tissue structures of the upper abdomen. RAD/Chest 1 View IMPRESSION: No demonstrated acute cardiopulmonary process. Electronically Signed: Maria Guadalupe Munoz MD at 22:42 EDT ,
[2022-10-16 21:51] LABS: Partial Thromboplast Time 33.1 Seconds (24.1-36.2)
[2022-10-16 21:55] LABS: Anion Gap 5 (5-15); BUN 14 mg/dL (7-18); BUN/Creat Ratio 14.3 RATIO (10-20); Calcium,Total 10.1 mg/dL (8.5-10.1); Chloride 99 mmol/L (98-107); Creatinine, Serum 0.98 mg/dL (0.55-1.02); EST Glomerular Filtration Rate 58 mL/min (>60); Est Glom Filt Rate - Afr Amer 70 mL/min (>60); Estimated Creatinine Clearance 38.22 ml/min; Glucose 105 mg/dL (74-106); Potassium 3.6 mmol/L (3.5-5.1); Sodium Level 132 mmol/L (136-145); Troponin-I HS 11 pg/mL (3.0-54.0)
[2022-10-16 21:58] VITALS: BP 128/109; PULSE 62; RESP 18; O2SAT 94
[2022-10-16 22:28] VITALS: BP 125/67; PULSE 68; RESP 17; O2SAT 93
[2022-10-16 22:28] LABS: Alcohol, Blood (Medical)-Serum < 3.0 mg/dL
[2022-10-16 22:58] VITALS: BP 120/64; PULSE 68; RESP 19; O2SAT 94
[2022-10-16 23:00] VITALS: BP 123/63; PULSE 65; RESP 18; O2SAT 94
[2022-10-17] VITALS (10 sets, daily range): BP systolic 137–179; BP diastolic 57–74; PULSE 55–82; RESP 16–19; TEMP 36.1–36.9; O2SAT 92–98; BMI 22.9; BMI 23.3
--- NOTE | 2022-10-17 00:58 | PCM.HP.STD ---
HPI - General General Date of Admission: 10/17/22 Date of Service: 10/17/22 Chief Complaint: Recurrent episodes of slurred speech, weakness. HPI Narrative The patient is an 82 y/o F w/ PMHx: Anxiety and Depression, COPD, Former tobacco use, Chronically mildly altered/slurred speech baseline, Hx TIA, Hypothyroidism, ZONIA unable to tolerate PAP therapy, HTN, HLD, Hx R Ductal Carcinoma Breast, Alzhemier's dementia with unclear behavioral disturbance history, Hx GI bleed, recent 10/12/22 ED evaluation for onset worsened slurred speech from her baseline and LUE weakness with complete resolution of sxs while in the ED with unremarkable CT head/CTA head and neck with recommended admission per telestroke physician following Stroke Alert evaluation but patient elected to return to home and pursue outpatient work-up who now re-presents to the [facility] ED on 10/17/22 with history of similar episode on evening prior to day of presentation as to the day prior with onset of weakness, lightheadedness, slurred speech prompting ED return. Patient has been admitted and evaluated for similar presentation prior with unremarkable work-up at that time. Work-up in the ED included T96.8, heart rate 67, BP initially 141/69 with most recent repeat 137/62, respiratory rate 18, 96% on room air with most recent repeat assessment respiratory rate 19, 92% on room air, CBC with WBC 6.7, hemoglobin 13.2, platelet 248 without marked shift, unremarkable coags, BMP with sodium 132 otherwise not marked appearing, troponin 11, ethyl alcohol less than 3, CT of the brain with a stable focus of prior ischemic change in the right parietal temporal lobe with no acute intracranial findings otherwise, chest x-ray with no acute cardiopulmonary findings. In the ED patient per family has now returned to her chronic baseline. [facility] Medical History Alzheimer's dementia Anxiety and depression Arthritis Confusion COPD (chronic obstructive pulmonary disease) Ductal carcinoma in situ (DCIS) of right breast GERD (gastroesophageal reflux disease) History of GI bleed HTN (hypertension) Hypercholesterolemia Hypothyroidism TIA (transient ischemic attack) Vitamin D deficiency Home Medications fluoxetine 20 mg capsule 20 mg PO QHS depression 11/26/19 [History Last Taken Unknown] levocetirizine 5 mg tablet 5 mg PO QHS Check with primary doctor 11/26/19 [History Last Taken 11/25/19 22:00] hydrochlorothiazide 25 mg tablet 12.5 mg (1/2 x 25 mg) PO DAILY #15 tabs 11/27/19 [Rx Last Taken Unknown] losartan 100 mg tablet 100 mg PO DAILY #30 tabs 11/27/19 [Rx Last Taken Unknown] metoprolol tartrate 50 mg tablet 50 mg PO BID #60 tabs 11/27/19 [Rx Last Taken Unknown] aspirin 81 mg chewable tablet 81 mg PO BREAKFAST #0 tabs 06/15/22 [Rx Last Taken Unknown] atorvastatin 20 mg tablet 20 mg PO QHS #30 tabs 06/15/22 [Rx Last Taken Unknown] clopidogrel 75 mg tablet 75 mg PO DAILY #30 tabs 06/15/22 [Rx Last Taken Unknown] magnesium 500 mg tablet 500 mg PO DAILY 10/12/22 [History Last Taken Unknown] amlodipine 10 mg tablet mg 10/16/22 [History Last Taken Unknown] hydralazine 25 mg tablet mg 10/16/22 [History Last Taken Unknown] mirtazapine 15 mg tablet mg 10/16/22 [History Last Taken Unknown] pantoprazole 40 mg tablet,delayed release mg PO 10/16/22 [History Last Taken Unknown] pramipexole 1.5 mg tablet mg 10/16/22 [History Last Taken Unknown] valsartan 320 mg-hydrochlorothiazide 25 mg tablet tab 10/16/22 [History Last Taken Unknown] Allergy/AdvReac Type Severity Reaction Status Date / Time lisinopril Allergy Mild cough Verified 10/16/22 21:26 alendronate sodium Allergy Unknown unknown Verified 10/16/22 21:26 [From Fosamax] Sulfa (Sulfonamide Allergy Rash Verified 10/16/22 21:26 Antibiotics) atorvastatin [From Lipitor] AdvReac Mild muscle Verified 10/16/22 21:26 aches rosuvastatin [From Crestor] AdvReac Mild muscle Verified 10/16/22 21:26 aches codeine AdvReac Nausea Verified 10/16/22 21:26 NSAIDS (Non-Steroidal AdvReac Bleeding Verified 10/16/22 21:26 Anti-Inflamma Ekijmdi-EIR-MeH Reductase AdvReac Other Verified 10/16/22 21:26 Inhibitor [Sbjzehv-Uve-Amd Reductase Inhibitor] Family History Mother Heart disease CVA (cerebral vascular accident) Father Heart disease Surgical History History of hysterectomy History of left mastoidectomy History of lumpectomy of right breast History of right hip replacement History of right hip replacement History of thyroid surgery Social History household members: spouse Smoking Status: Former smoker how long ago did patient quit smoking: Quit ~ 24-25 years prior. alcohol intake: current alcohol intake frequency: a few times a month details: 1 drink/[place] nightly. substance use type: other details: Given THC chew per her family for sleep but prior no substance use. ROS ROS Narrative Admission Review of Systems: CONSTITUTIONAL: No weight loss, fever, chills, + weakness or fatigue. HEENT: + Chronically slurred speech with acute on chronic as noted. Eyes: No visual loss, blurred vision, double vision or yellow sclerae. Ears, Nose, Throat: No hearing loss, sneezing, congestion, runny nose or sore throat. SKIN: No rash or itching, lesions, wounds. CARDIOVASCULAR: No chest pain, chest pressure or chest discomfort, palpitations, edema, orthopnea, syncopal events. RESPIRATORY: + Chronic cough.No shortness of breath, marked sputum, wheezing, hemoptysis. GASTROINTESTINAL: No anorexia, nausea, vomiting or diarrhea, abdominal pain, melena, BRBPR. GENITOURINARY: No dysuria, frequency, urgency or retention. NEUROLOGICAL: + Chronic dysarthria with transient increased slurred speech, increased lethargy/confusion with drooling, LUE weakness all now resolved. No headache, dizziness, syncope, paralysis, ataxia, numbness or tingling in the extremities, focal weakness, change in bowel or bladder control, seizure. MUSCULOSKELETAL: + muscle, back pain, joint pain or stiffness. HEMATOLOGIC: No anemia, bleeding or bruising. LYMPHATICS: No enlarged nodes. No history of splenectomy. PSYCHIATRIC: + history of depression or anxiety. ENDOCRINOLOGIC: No reports of sweating, cold or heat intolerance. No polyuria or polydipsia. ALLERGIES: + history of rhinitis. Vital Signs Vital Signs Vital Signs: 10/16/22 21:26 10/16/22 21:28 10/16/22 21:58 Temperature 96.8 F L Temperature Source Temporal Pulse Rate 67 66 62 Respiratory Rate 18 18 18 Blood Pressure 141/69 H 111/65 128/109 H Blood Pressure Mean 93 80 115 Pulse Ox 96 93 94 Oxygen Delivery Method Room Air Room Air Room Air 10/16/22 22:28 10/16/22 22:58 10/16/22 23:00 Temperature Temperature Source Pulse Rate 68 68 65 Respiratory Rate 17 19 H 18 Blood Pressure 125/67 H 120/64 123/63 H Blood Pressure Mean 86 82 83 Pulse Ox 93 94 94 Oxygen Delivery Method Room Air Room Air Room Air 10/17/22 00:00 Temperature Temperature Source Pulse Rate 65 Respiratory Rate 19 H Blood Pressure 137/62 H Blood Pressure Mean 87 Pulse Ox 92 Oxygen Delivery Method Room Air Weight Weight: 132 lb 0.91 oz Body Mass Index (BMI) 22.6 Physical Exam Narrative Physical Examination: General: Awake, alert, oriented x > 3 currently, appears to be back at stable baseline, chronically altered/slurred speech, cooperative and interactive, NAD. Skin: Normal color, normal turgor, no icterus, no cyanosis. HEENT: AT/NC, EOMI, PERRLA, MMM, no carotid bruits or JVD noted. Lungs: CTA bilaterally, moderate effort, mild decrease BL bases, no rales, ronchi or wheezing. Heart: Currently regular rate and rhythm; no gallop, rub audible. Abdomen: Soft, NTTP, ND, mildly hyperactive BS, no HSM. Extremities: No cyanosis, no clubbing, no edema. Neurological: Patient awake, alert, oriented as noted, cognitive function appears improved, now per family appears based intact; pupils equally reactive to light and accommodation, cranial nerves II-XII grossly normal, moving all 4 extremities, no focal deficits, strength appropriate, sensation intact. Psychiatric: Affect appears appropriate, no acute evidence of depressive or anxiety feelings but does have underlying history. Results Lab / Micro Data 10/16/22 21:20 10/16/22 21:20 Labs: Laboratory Results - last 24 hr 10/16/22 21:20: WBC 6.7, RBC 4.46, Hgb 13.2, Hct 40.0, MCV 89.7, MCH 29.6, MCHC 33.0, RDW Std Deviation 48.7 H, RDW Coeff of Kierra 14.8 H, Plt Count 248, MPV 9.0, Immature Gran % (Auto) 0.400, Neut % (Auto) 60.6, Lymph % (Auto) 19.7, Glynn % (Auto) 16.8 H, Eos % (Auto) 1.6, Baso % (Auto) 0.9, Absolute Neuts (auto) 4.1, Absolute Lymphs (auto) 1.32, Nucleated RBC % 0, PT 13.4, INR 1.0, APTT 33.1, Sodium 132 L, Potassium 3.6, Chloride 99, Carbon Dioxide 28.0, Anion Gap 5, BUN 14, Creatinine 0.98, Estim Creat Clear Calc 38.22, Est GFR (MDRD) Af Amer 70, Est GFR (MDRD) Non-Af 58 L, BUN/Creatinine Ratio 14.3, Glucose 105, Calcium 10.1, Troponin I High Sens 11, Ethyl Alcohol < 3.0 10/16/22 21:29: POC Glucose 109 H Radiology Impression Brain CT 10/16/22 21:28 IMPRESSION: Stable focus of prior ischemic change in the right parietal temporal lobe. No visualized acute hemorrhage infarct or edema or significant change since the prior studies. Electronically Signed: Maria Guadalupe Munoz MD at 22:12 EDT Reading Location ID and State: [facility] / [place] Tel , Service support , ADDENDUM: 10/16/223 IMPRESSION: Stable focus of prior ischemic change in the right parietal temporal lobe. No visualized acute hemorrhage infarct or edema or significant change since the prior studies. N.B. : The above Results were Read Back by Maria Guadalupe Munoz MD to Terry Vuong MD, and understanding confirmed on 10/16/2022 22:16:51 (ET). Electronically Signed: Maria Guadalupe Munoz MD at 22:12 EDT , Chest X-Ray 10/16/22 21:50 IMPRESSION: No demonstrated acute cardiopulmonary process. Electronically Signed: Maria Guadalupe Munoz MD at 22:42 EDT , Assessment & Plan Assessment/Plan (1) TIA (transient ischemic attack): PLAN: Plan The patient is an 82 y/o F w/ PMHx: Anxiety and Depression, COPD, Former tobacco use, Chronically mildly altered/slurred speech baseline, Hx TIA, Hypothyroidism, ZONIA unable to tolerate PAP therapy, HTN, HLD, Hx R Ductal Carcinoma Breast, Alzhemier's dementia with unclear behavioral disturbance history, Hx GI bleed, recent 10/12/22 ED evaluation for onset worsened slurred speech from her baseline and LUE weakness with complete resolution of sxs while in the ED with unremarkable CT head/CTA head and neck with recommended admission per telestroke physician following Stroke Alert evaluation but patient elected to return to home and pursue outpatient work-up who now re-presents to the [facility] ED on 10/17/22 with history of similar episode on evening prior to day of presentation as to the day prior with onset of weakness, lightheadedness, slurred speech prompting ED return. #1. Intermittent Increased Slurred Speech from her baseline, Decreased responsiveness, LUE weakness, Generalized weakness concerning for TIA/CVA, possible seizure: Will admit to PCU, will obtain MRI Brain with and without contrast given CA history and recent similar presentation with MRI without, recent ECHO with bubble study 06/13/22 thus will not repeat, PT/OT/Speech/Nutrition evaluation per protocol. Given resolution and and timeline will continue her HTN regimen, will maintain on asa/plavix, statin allergy reported,fall precautions. Mag, TSH/FT4, FLP, HgbA1c, UTox, EtOH level requested. Maintain on fall and aspiration precautions. EEG requested. Once work-up obtained given atypical history would plan to obtain Neurology consultation. #2. Hypertension: Continue home regimen given lengthy timeline of intermittent symptoms including metoprolol, hydrochlorothiazide, losartan, PRN hydralazine. #3. Hyperlipidemia: Reported statin allergy, AM FLP. #4. Anxiety and depression w/ chronic insomnia: We will continue patient home fluoxetine regimen. #5. Chronic COPD with allergic rhinitis, chronic cough: Not on any chronic regimen, if necessary may add additional aerosol treatments but in the interim we will maintain on PRN albuterol, HOB, IS parameters, continue patient home levocetirizine regimen. #6. History of breast cancer: Patient with history of right ductal carcinoma, s/p lumpectomy prior, considered in remission, encourage continued outpatient follow-up as previously arranged. #7. Former tobacco use: Encourage continued tobacco cessation. #8. Hypothyroidism: Noted in chart history but from most recent discharge medication list while on any supplementation, will obtain TSH and free T4 to be cautious. #9. ZONIA: Unable to tolerate PAP therapy with oxygen supplementation instead. #10. Alzhemier's dementia with unclear behavioral disturbance history: Complicates presentation, maintain on fall and aspiration precautions, therapies consulted as noted. #11. DVT prophylaxis: Lovenox. #12. CODE status: Patient HCPOA is her who is present and her daughter who is secondary who is also present and living will is currently in place. DNR-CCA, no intubation status. Admission Evaluation Time spent evaluating chart, patient history, patient evaluation, care planning and discussion with specialists: 60 minutes. Charges/Coding Visit Charges Inpatient E&M: 56867 Init Hosp L2
[2022-10-17 02:22] LABS: Magnesium 2.2 mg/dL (1.6-2.6)
[2022-10-17 05:42] LABS: Absolute Lymphocyte Count 1.25 X10^3/uL (0.83-4.51); Absolute Neutrophil Count 3.1 X10^3/uL (2.0-7.7); Basophil# 0.07 X10^3/uL; Basophil% 1.3 % (0-1); Eosinophil# 0.07 X10^3/uL; Eosinophils% 1.3 % (0-5); Hemoglobin 11.9 g/dL (12.0-15.0); Lymphocyte # 1.25 X10^3/ul (0.83-4.51); Lymphocyte % 23.8 % (19-41); Mean Corp Hgb Conc 32.2 g/dL (32-36); Mean Platelet Vol. 9.4 fl (6.2-12.0); Monocyte# 0.74 X10^3/uL; Monocyte% 14.1 % (0-10); NRBC Flagged by Analyzer 0 % (0-5); Neutrophil % 59.1 % (47-70); Platelet Count 225 K/mm3 (150-450); RBC Distribution Width CV 14.8 % (11.6-14.6); RBC Distribution Width SD 48.9 fl (35.1-43.9); Red Blood Count 4.11 M/mm3 (4.2-5.4); White Blood Count 5.3 K/mm3 (4.4-11.0)
--- NOTE | 2022-10-17 05:55 | MRI_ITS ---
EXAM: MR HEAD WITHOUT AND WITH INTRAVENOUS CONTRAST CLINICAL INDICATION: CVA TECHNIQUE: Multiplanar and multisequence MR images of the brain were obtained without and with intravenous contrast. CONTRAST: 12 mL of IV Clariscan. COMPARISON: MRI brain without contrast 06/14/2022. CT head without contrast and CTA head and neck with contrast 10/12/2022. FINDINGS: BRAIN AND EXTRA-AXIAL SPACES: T2 FLAIR hyperintensity foci in the white matter of both cerebral hemispheres are chronic white matter ischemic changes. They were present previously. Old remote cortical-based ischemic infarct with cystic encephalomalacia and atrophy in the right supramarginal gyrus. Following IV contrast administration, there are no abnormal enhancing lesions intra-axially and extra-axially. No intra- or extra-axial hemorrhage. No intracranial mass or mass effect. Posterior fossa structures are unremarkable. No hydrocephalus. Basal cisterns are patent. No diffusion restriction to suspect acute or subacute ischemic infarct. SELLA: Unremarkable. Normal sella turcica, pituitary gland, infundibular stalk, optic chiasm and hypothalamus. AUDITORY SYSTEM: Unremarkable. The internal auditory canals are patent. BONES/JOINTS: Unremarkable. No discrete lytic or blastic abnormalities. SINUSES: Unremarkable as visualized. Clear. MASTOID AIR CELLS: Unremarkable as visualized. Clear. ORBITS: Unremarkable as visualized. Both globes, extraocular muscles, optic nerves and retrobulbar fat appear unremarkable. VASCULATURE: Unremarkable as visualized. Normal flow voids in the major intracranial circulation. MRI/Brain W/WO Contrast IMPRESSION: 1. No MRI evidence of acute or subacute ischemic infarct or acute intracranial abnormality. 2. No abnormal enhancing lesions intra-axially and extra-axially. 3. 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 4. Multiple chronic white matter ischemic changes in both cerebral hemispheres are unchanged. Electronically Signed: Charles Espino MD at 10:26 EDT ,
[2022-10-17 06:19] LABS: ALB/GLOB Ratio 1.1 RATIO (0.9-2.4); AST(SGOT) 20 U/L (15-37); Alanine Aminotransfer ALT/SGPT 26 U/L (13-56); Albumin, Serum 3.4 g/dL (3.2-5.0); Alkaline Phosphatase 58 U/L (45-117); Anion Gap 5 (5-15); BUN 14 mg/dL (7-18); BUN/Creat Ratio 17.9 RATIO (10-20); Calcium,Total 9.1 mg/dL (8.5-10.1); Chloride 103 mmol/L (98-107); Creatinine, Serum 0.78 mg/dL (0.55-1.02); EST Glomerular Filtration Rate 75 mL/min (>60); Est Glom Filt Rate - Afr Amer 91 mL/min (>60); Estimated Creatinine Clearance 35.88 ml/min; Globulin 3.2 g/dL (2.2-4.2); Glucose 93 mg/dL (74-106); Potassium 3.5 mmol/L (3.5-5.1); Protein, Total 6.6 g/dL (6.4-8.2); Sodium Level 134 mmol/L (136-145); Thyroid Stim Hormone (TSH) 1.02 uIU/mL (0.358-3.74)
[2022-10-17] MEDS: 0.9% Normal Saline 1,000 ML 100 ML IV (06:30)
[2022-10-17 08:36] LABS: Hemoglobin A1c 5.6 % (3.8-5.6)
[2022-10-17] MEDS: Enoxaparin 40 MG/0.4 ML Syringe SC (11:50)
[2022-10-17] MEDS: hydroCHLOROthiazide 12.5mg 12.5 MG PO (11:51)
[2022-10-17] MEDS: Aspirin 81 MG TAB.CHEW PO (11:51)
[2022-10-17] MEDS: Metoprolol Tartrate 50 MG Tablet PO ×2 (11:52→21:47)
[2022-10-17] MEDS: Losartan Potassium 100 MG Tablet PO (11:53)
[2022-10-17] MEDS: Pantoprazole Sodium 40 MG Tablet PO (11:53)
[2022-10-17] MEDS: Clopidogrel Bisulfate 75 MG Tablet PO (11:53)
[2022-10-17 16:12] LABS: Barbiturate Urine VISTA NEGATIVE (< 200 ng/mL); Benzodiazepine Urine VISTA NEGATIVE (< 200 ng/mL); Cocaine Urine VISTA NEGATIVE (< 300 ng/mL); Ecstacy Urine VISTA NEGATIVE (< 500 ng/mL); Methadone Urine VISTA NEGATIVE (< 300 ng/mL); PCP Urine VISTA NEGATIVE (< 25 ng/mL); THC Urine VISTA NEGATIVE (< 50 ng/mL)
[2022-10-17 16:13] LABS: Amphetamine Urine VISTA NEGATIVE (<1000 ng/mL); Vista UDS pH Range 6
--- NOTE | 2022-10-17 18:42 | PCM.HOSP.N ---
Hospitalist Note Patient was seen and examined today, I had a long discussion with the patient's family members who were present at the time my examination, patient's MRI did not show a new stroke, the asked what was causing these episodes at home and I told him that I really did not have the etiology for these episodes. Patient becomes unresponsive for several minutes but then awakens, he says he takes her blood pressure during these episodes and her blood pressure is normal. I felt that for a complete work-up, the patient needs a loop recorder placed to see if these are cardiac events, I talked with Dr. Sidhu and he asked the patient's family to call the office tomorrow and set up an appointment to get a loop recorder placed, evidently knows the patient's daughter through their missionary work. In the meantime, we are awaiting the EEG results, the hospitalist tomorrow may have to call and try to get the results. Patient has been medically stable and I have stopped her INH scores.
--- NOTE | 2022-10-17 21:30 | CPS ---
Patient sleeping at this time
[2022-10-17] MEDS: FLUoxetine 20 MG Capsule PO (21:47)
[2022-10-17] MEDS: Loratadine 10 MG Tablet PO (21:47)
[2022-10-17] MEDS: 0.9% Saline Lock 10 ML Syringe IV (21:47)
[2022-10-17] MEDS: Atorvastatin Calcium 20 MG Tablet PO (21:47)
[2022-10-18] VITALS (7 sets, daily range): BP systolic 131–172; BP diastolic 59–74; PULSE 58–88; RESP 16–18; TEMP 36.4–36.7; O2SAT 95–100; BMI 23.1
[2022-10-18] MEDS: hydrALAZINE 20 MG/ML Vial 10 MG IV (04:38)
[2022-10-18] MEDS: 0.9% Saline Lock 10 ML Syringe IV (04:39)
[2022-10-18 07:34] LABS: Cholesterol 149 mg/dL (200); High Density Lipoprotein 58 mg/dL; Triglycerides 184 mg/dL; Very Low Density Lipoprotein 37 mg/dL (5-40)
[2022-10-18] MEDS: Aspirin 81 MG TAB.CHEW PO (09:07)
[2022-10-18] MEDS: Losartan Potassium 100 MG Tablet PO (09:07)
[2022-10-18] MEDS: Pantoprazole Sodium 40 MG Tablet PO (09:07)
[2022-10-18] MEDS: hydroCHLOROthiazide 12.5mg 12.5 MG PO (09:07)
[2022-10-18] MEDS: Clopidogrel Bisulfate 75 MG Tablet PO (09:07)
[2022-10-18] MEDS: Enoxaparin 40 MG/0.4 ML Syringe SC (09:07)
[2022-10-18] MEDS: Metoprolol Tartrate 50 MG Tablet PO (09:07)
--- NOTE | 2022-10-18 12:09 | DCINST_ITS ---
Discharge Instructions Diet Discharge Diet: Low fat / Low cholesterol Activity Discharge Activity: Return to Normal Activity Dressing / Incision Call your doctor if you observe: Fever of 101 or Higher, Shortness of breath, Dizziness, Fainting spells, Swelling in the ankles, Chest pain and Increased palpitations (irregular heartbeat) Follow Up Care Test Results: Test results from this visit will be discussed in further detail at your follow- up appointment, if applicable. Discharge Plan Admission Admit Date/Time: 10/17/22 01:11 Attending Provider: Justin Arriaga Primary Care Provider: Vikram Segura Consulting Providers: Emily Verdugo; Guille Jamison Discharge Orders/Prescriptions Prescriptions: Continued fluoxetine 20 MG capsule 20 mg PO QHS levocetirizine 5 MG tablet 5 mg PO QHS metoprolol tartrate 50 MG tablet 50 mg PO BID Qty: 60 0RF aspirin 81 mg Tablet,Chewable 81 mg PO BREAKFAST Qty: 0 0RF atorvastatin 20 mg Tablet 20 mg PO QHS Qty: 30 0RF clopidogrel 75 mg Tablet 75 mg PO DAILY Qty: 30 0RF magnesium 500 mg Tablet 500 mg PO DAILY mirtazapine 15 mg tablet Patient Comments: TAKE 1/2 TO 1 (ONE-HALF TO ONE) TABLET BY MOUTH AT BEDTIME hydralazine 25 mg tablet amlodipine 10 mg tablet pantoprazole 40 mg tablet,delayed release (DR/EC) PO pramipexole 1.5 mg tablet Patient Comments: TAKE 1 TABLET 2 TO 3 HOURS BEFORE BEDTIME FOR RESTLESS LEGS valsartan-hydrochlorothiazide 320-25 mg tablet No Action losartan 100 MG tablet 100 mg PO DAILY Qty: 30 0RF hydrochlorothiazide 25 MG tablet 12.5 mg PO DAILY Qty: 15 0RF Referrals / Follow Up: Catalino Sidhu MD [Med Staff - Active Staff] - (Call office today or on Tuesday for loop recorder evaluation) Vikram Segura MD [Primary Care Provider] - Within 1 Week Disposition Disposition (needs filled in before D/C Order can be placed): Home, Self Care
--- NOTE | 2022-10-18 13:02 | CASEMGMT ---
ANNIE GAUTHIER in to complete KENDRICK Form with patient. RN ABRAHAN explained KENDRICK form to patient, patient voiced understanding. Patient signed KENDRICK form and filed in chart. Patient provided copy of signed KENDRICK form. Patient and had no further questions or concerns at this time.
--- NOTE | 2022-10-18 14:10 | PCM.DC.SUM ---
Providers Date of Admission: 10/17/22 Primary Care Physician: Dr. Vikram Segura MD Reason For Visit: TIA/CVA Diagnosis Discharge Diagnosis (1) TIA (transient ischemic attack): Status: Acute Code(s): G45.9 - Transient cerebral ischemic attack, unspecified Medications at Discharge Home Medications fluoxetine 20 mg capsule 20 mg PO QHS depression 11/26/19 levocetirizine 5 mg tablet 5 mg PO QHS Check with primary doctor 11/26/19 hydrochlorothiazide 25 mg tablet 12.5 mg (1/2 x 25 mg) PO DAILY #15 tabs 11/27/19 losartan 100 mg tablet 100 mg PO DAILY #30 tabs 11/27/19 metoprolol tartrate 50 mg tablet 50 mg PO BID #60 tabs 11/27/19 aspirin 81 mg chewable tablet 81 mg PO BREAKFAST #0 tabs 06/15/22 atorvastatin 20 mg tablet 20 mg PO QHS #30 tabs 06/15/22 clopidogrel 75 mg tablet 75 mg PO DAILY #30 tabs 06/15/22 magnesium 500 mg tablet 500 mg PO DAILY 10/12/22 amlodipine 10 mg tablet mg 10/16/22 hydralazine 25 mg tablet mg 10/16/22 mirtazapine 15 mg tablet mg 10/16/22 pantoprazole 40 mg tablet,delayed release mg PO 10/16/22 pramipexole 1.5 mg tablet mg 10/16/22 valsartan 320 mg-hydrochlorothiazide 25 mg tablet tab 10/16/22 Hospital Course Operations None Procedures None Summary of Care Provided Minutes Spent on Discharge: 40 Hospital Course: Per HPI: The patient is an 82 y/o F w/ PMHx: Anxiety and Depression, COPD, Former tobacco use, Chronically mildly altered/slurred speech baseline, Hx TIA, Hypothyroidism, ZONIA unable to tolerate PAP therapy, HTN, HLD, Hx R Ductal Carcinoma Breast, Alzhemier's dementia with unclear behavioral disturbance history, Hx GI bleed, recent 10/12/22 ED evaluation for onset worsened slurred speech from her baseline and LUE weakness with complete resolution of sxs while in the ED with unremarkable CT head/CTA head and neck with recommended admission per telestroke physician following Stroke Alert evaluation but patient elected to return to home and pursue outpatient work-up who now re-presents to the [facility] ED on 10/17/22 with history of similar episode on evening prior to day of presentation as to the day prior with onset of weakness, lightheadedness, slurred speech prompting ED return. Patient has been admitted and evaluated for similar presentation prior with unremarkable work-up at that time. Work-up in the ED included T96.8, heart rate 67, BP initially 141/69 with most recent repeat 137/62, respiratory rate 18, 96% on room air with most recent repeat assessment respiratory rate 19, 92% on room air, CBC with WBC 6.7, hemoglobin 13.2, platelet 248 without marked shift, unremarkable coags, BMP with sodium 132 otherwise not marked appearing, troponin 11, ethyl alcohol less than 3, CT of the brain with a stable focus of prior ischemic change in the right parietal temporal lobe with no acute intracranial findings otherwise, chest x-ray with no acute cardiopulmonary findings. In the ED patient per family has now returned to her chronic baseline. Hospital Course: 1. Periodic episodes of unresponsiveness?82-year-old female presented to the hospital with repeated episodes of slurred speech and unresponsiveness. She does have a history of TIAs and previous CVAs as well as a history of breast cancer and possible Alzheimer's disease. She had been admitted to the hospital previously this year for TIA work-up with a normal echocardiogram. MRI was normal on this admission and she is on aspirin and Plavix. She does have an allergy to statins though she is able to tolerate 20 mg of Lipitor so did not increase. EEG was also negative for any type of seizure-like activity. At this time I do recommend that she follow-up with cardiology to have a loop recorder placed to see if we can identify an arrhythmia that could be the culprit of her issues. I discussed with her the plan for possible discharge today and she expressed understanding of the risks and benefits of going home and would like to go home today. I do recommend that she follow-up with neurology as an outpatient, I did discuss with her that if this was a seizure disorder we would likely need to send her for 24-hour EEG which she declined. 2. Hypertension, hyperlipidemia, chronic COPD, history of breast cancer, hypothyroidism, ZONIA, anxiety, depression all chronic medical conditions which complicate her care. Her home medications were continued where appropriate Physical Exam Narrative General: Alert, Oriented x3, Cooperative, No apparent distress HEENT: Atraumatic, PERRLA, EOMI, Normocephalic Oral: Moist Mucosa Neck: Supple, No JVD Lungs: Clear to auscultation, Normal air movement, No rhonchi, No wheeze, No rales Cardiovascular: Regular rate, Regular Rhythm, Normal S1, Normal S2, No murmurs Abdomen: Soft, Non Tender, Non-Distended, No Hepato-splenomegaly Extremities: No edema, Capillary Refill Less than 3 Seconds Skin: No rashes, No breakdown Musculoskeletal: No Tenderness to Palpation of Joints or Extremities Neurological: Cranial nerves II-XII grossly intact, Motor Exam 5/5 strength throughout, Sensory exam intact to light touch and pain Psych/Mental Status: Normal Affect, Appropriate Weight / BMI Weight Weight: 130 lb 8.218 oz Body Mass Index (BMI) 23.1 ABG / Lab / Microbiology Data 10/17/22 05:05 10/17/22 05:05 Laboratory: Laboratory Results - last 24 hr 10/17/22 15:25: Urine Opiates Screen NEGATIVE, Urine Methadone Screen NEGATIVE, Ur Barbiturates Screen NEGATIVE, Ur Phencyclidine Scrn NEGATIVE, Ur Amphetamines Screen NEGATIVE, MDMA (Ecstasy) Screen NEGATIVE, U Benzodiazepines Scrn NEGATIVE, Urine Cocaine Screen NEGATIVE, U Cannabinoids Screen NEGATIVE, Ur Drug Screen Comment 10/18/22 06:44: Triglycerides 184, Cholesterol 149, LDL Cholesterol 54, VLDL Cholesterol 37, HDL Cholesterol 58 D/C Instructions Discharge Diet: Low fat / Low cholesterol Call your doctor if you observe: Fever of 101 or Higher, Shortness of breath, Dizziness, Fainting spells, Swelling in the ankles, Chest pain and Increased palpitations (irregular heartbeat) Meaningful Use Info Meaningful Use Diagnoses (Choose all that apply): None applicable Discharge Plan Admission Admit Date/Time: 10/17/22 01:11 Attending Provider: Justin Arriaga Primary Care Provider: Vikram Segura Consulting Providers: Emily Verdugo; Guille Jamison Discharge Orders/Prescriptions Prescriptions: Continued fluoxetine 20 MG capsule 20 mg PO QHS levocetirizine 5 MG tablet 5 mg PO QHS metoprolol tartrate 50 MG tablet 50 mg PO BID Qty: 60 0RF aspirin 81 mg Tablet,Chewable 81 mg PO BREAKFAST Qty: 0 0RF atorvastatin 20 mg Tablet 20 mg PO QHS Qty: 30 0RF clopidogrel 75 mg Tablet 75 mg PO DAILY Qty: 30 0RF magnesium 500 mg Tablet 500 mg PO DAILY mirtazapine 15 mg tablet Patient Comments: TAKE 1/2 TO 1 (ONE-HALF TO ONE) TABLET BY MOUTH AT BEDTIME hydralazine 25 mg tablet amlodipine 10 mg tablet pantoprazole 40 mg tablet,delayed release (DR/EC) PO pramipexole 1.5 mg tablet Patient Comments: TAKE 1 TABLET 2 TO 3 HOURS BEFORE BEDTIME FOR RESTLESS LEGS valsartan-hydrochlorothiazide 320-25 mg tablet No Action losartan 100 MG tablet 100 mg PO DAILY Qty: 30 0RF hydrochlorothiazide 25 MG tablet 12.5 mg PO DAILY Qty: 15 0RF Referrals / Follow Up: Catalino Sidhu MD [Med Staff - Active Staff] - (Call office today or on Tuesday for loop recorder evaluation) Vikram Segura MD [Primary Care Provider] - Within 1 Week Disposition Disposition (needs filled in before D/C Order can be placed): Home, Self Care Charges/Coding Visit Charges Inpatient E&M: 93209 Disch Hosp >30min
== END 2022-10-18 12:12 | disposition home or self-care (01) ==
LOC: ED 10-17 00:44 → PCU 10-17 01:15
PROVIDERS: Admitting Provider Family Medicine; Emergency Provider Emergency Medicine; PCP Family Medicine; Visit Provider Family Medicine
DX: R47.81 Slurred speech (principal); G30.9 Alzheimer's disease, unspecified; F02.80 Dementia in other diseases classified elsewhere, unspecified severity, without behavioral disturbance, psychotic disturbance, mood disturbance, and anxiety; J44.9 Chronic obstructive pulmonary disease, unspecified; R41.82 Altered mental status, unspecified; F41.9 Anxiety disorder, unspecified; Z87.891 Personal history of nicotine dependence; G47.33 Obstructive sleep apnea (adult) (pediatric); E78.00 Pure hypercholesterolemia, unspecified; Z86.73 Personal history of transient ischemic attack (TIA), and cerebral infarction without residual deficits; I10 Essential (primary) hypertension; Z79.82 Long term (current) use of aspirin; K21.9 Gastro-esophageal reflux disease without esophagitis; Z79.899 Other long term (current) drug therapy; Z79.02 Long term (current) use of antithrombotics/antiplatelets; E03.9 Hypothyroidism, unspecified; Z79.890 Hormone replacement therapy; F32.A Depression, unspecified; R53.1 Weakness; E55.9 Vitamin D deficiency, unspecified; R47.1 Dysarthria and anarthria; R94.31 Abnormal electrocardiogram [ECG] [EKG]
CPT/HCPCS: 36415; 70450; 70553; 71045; 80048; 80053; 80061; 80307; 82077; 82962; 83036; 83735; 84439; 84443; 84484; 85025; 85610; 85730; 92526; 93005; 94668; 95819; 96361; 96372; 96374; 97161; 97165; 97802; 99221; 99285; A9575; J7030; Q9957; A4216; G0378

== ENCOUNTER 2022-10-22 11:00 | Outpatient (RCR) | payer MEDICARE, SELFPAY ==
--- NOTE | 2022-10-06 14:31 | HP.SP.EV_ITS ---
Visit History - Visit Info Date of Eval: 09/29/22 Visit: 1 Multi Punch Operator: HANDY - History Attending Doctor: Referring Doctor: Reason for Referral: SL[facility]RED SPEECH [facility] HERE Date of Onset of Diagnosis: Pt reports TIA May 2022 Previous speech therapy: No Other Relevant Medical History/Diagnoses/Surgery: Pt reports TIA in May of 2022 Smoking Status: Former smoker - Diagnosis Diagnosis: Slurred speech R47.81 - Pain Is pain an issue with your current prescribed condition?: No - Personal Preferred language: [place] History - History Date of Eval: 09/29/22 Date of Onset of Diagnosis: Pt reports TIA May 2022 Previous speech therapy: No Other Relevant Medical History/Diagnoses/Surgery: Pt reports TIA in May of 2022 Smoking Status: Former smoker Hx Smoking: Yes - FORMER 35 YR SMOKER, QUIT 1984 Hx Smoking Cessation Date: 06/19/90 Hx Tobacco Use: No Hx Smoking Exposure: Yes - Pain Is pain an issue with your current prescribed condition?: No Patient Allergies - Allergies Allergies lisinopril Allergy (Mild, Verified 06/13/22 17:13) cough alendronate sodium [From Fosamax] Allergy (Unknown, Verified 06/13/22 17:13) unknown Sulfa (Sulfonamide Antibiotics) Allergy (Verified 06/13/22 17:13) Rash atorvastatin [From Lipitor] Adverse Reaction (Mild, Verified 06/15/22 11:39) muscle aches rosuvastatin [From Crestor] Adverse Reaction (Mild, Verified 06/15/22 11:39) muscle aches codeine Adverse Reaction (Verified 06/13/22 17:13) Nausea NSAIDS (Non-Steroidal Anti-Inflamma Adverse Reaction (Verified 06/13/22 17:13) Bleeding Fxyxwnq-KGA-AgK Reductase Inhibitor [Bacblal-Lfd-Whu Reductase Inhibitor] Adverse Reaction (Verified 06/13/22 17:13) Other MUSCLE CRAMPS Subjective Articulation/Phonol - Subjective Patient is: Frequently repeats Concerns: Excessive saliva of pt escapes oral cavity at rest and during conversational speech. Distortion of /s/, /z/, ch, sh sounds in initial, medial, and final positions of single words and conversational speech. Pt produced single words with 90% intelligibility and conversational speech with 80% intelligibility. Pt reports family members have difficulty understanding her when she speaks. N-JOHANN - [place] Dysarthria Assessment Tool Intelligibility:: Intelligible w/some difficulty Respiration:: Abdominal - Phonation: Phonation: Adequate Pitch: Adequate Quality: Adequate - Resonance: Resonance: Nasality: Adequate - Prosody: Prosody: Ability to vary: Yes - Articulation: Rate of speech: Adequate Phrase length: Adequate HDQLIFE - Speech Difficulties - In the past 7 days. It was difficult for other people to understand me.: Sometimes Is was difficult to speak clearly?: Rarely - In the past 7 days.. How often did you limit your social activites because you had difficulty speaking?: Never - In the past 7 days... I had trouble speaking.: A little bit I was frustrated by my speech difficulties.: A little bit - How much DIFFICULTY do you have... ...saying what you want to say?: No difficulty - Score HDQLIFE Speech Difficulties Raw Score: 11 HDQLIFE Speech Difficulties T - Score: 51 Plan - Plan Plan: Direct skilled therapy is warranted to target oral motor weaknesses and speech articulation errors with use of verbal cuing and immediate feedback. Deficits in these areas can negatively impact patient's ability to express wants, needs, and communicate with conversational partners. - Recommendations Treatment Warranted: Yes Treatment Warranted: Speech Sound Production - Progress Prognosis: Good - Frequency Frequency: 1x/Week Duration: 3 Months Visits in this POC: 12 - Patient/Family Goal Patient/Family Goal: Family reports difficulty understanding pt's speech. Pt reports her goal is to become aware of and reduce drooling. - Goals that are Established Determination:: Goals will be added/modified as deemed necessary and appropriate. Therapy will be discontinued when results of re-evaluation indicate therapy is no longer needed or lack of progress has been documented. - Goal #1-5 Goal #1: Patient will increase speech intelligibility to 90% to facilitate successful conversations with familiar and unfamiliar conversation partners. Goal #2: Patient will complete oral motor exercises with minimal visual/verbal cues to decrease drooling. Goal #3: Patient will demonstrate awareness of drooling with minimal cues as exhibited by independent use of compensatory strategies. Education - Patient has Indicated that the Following Identified Educational Needs: None The Patient has indicated that they have no educational or learning abilities that may effect their care.: Yes - Patient Instruction Patient Education: Diagnosis, Treatment Plan Person Taught: Patient Teaching Method: Discussion Response to teaching: Verbalize understanding
--- NOTE | 2022-12-14 10:46 | HP.SP.DC_ITS ---
ST Discharge Summary Discharged: Discharge: Radha Ramirez is discharged from speech therapy at [facility]. She was evaluated on 10/06/22 for dysarthria. Her goals focused on speech intelligibility and oral motor exercises. She completed one session after evaluation with speech at that time 100% intelligible with only a mild frontal lisp continuing. No drooling was noted during the session. Patient was to see neurologist then return to therapy. She cancelled her last session at the end of October and no further visits have been scheduled. Please see daily notes for complete details. Thank you for allowing me to participate in the care of this patient.
== END 2022-10-22 19:00 | disposition home or self-care (01) ==
LOC: SP 11:00
PROVIDERS: PCP Family Medicine; Referring Provider Family Medicine; Visit Provider Family Medicine
DX: R47.81 Slurred speech (principal)
CPT/HCPCS: 92507; 92523

== ENCOUNTER 2022-11-08 10:14 | Day surgery (SDC) | payer MEDICARE, SELFPAY ==
[2022-10-29 07:51] VITALS: BMI 23.2
[2022-11-08 10:50] LABS: Anion Gap 5 (5-15); BUN 16 mg/dL (7-18); BUN/Creat Ratio 18.3 RATIO (10-20); Calcium,Total 9.8 mg/dL (8.5-10.1); Chloride 98 mmol/L (98-107); Creatinine, Serum 0.88 mg/dL (0.55-1.02); EST Glomerular Filtration Rate 66 mL/min (>60); Est Glom Filt Rate - Afr Amer 80 mL/min (>60); Estimated Creatinine Clearance 40.77 ml/min; Glucose 103 mg/dL (74-106); Potassium 3.5 mmol/L (3.5-5.1); Sodium Level 132 mmol/L (136-145)
--- NOTE | 2022-11-08 12:24 | CL.IE_ITS ---
Patient: XAVIER RAHMAN Study Date: 11/08/2022 Performing: Catalino Sidhu MD : [id number] Age: 82 Gender: female PROCEDURES PERFORMED [id number])INSERTION OF LOOP RECORDER INDICATIONS Cryptogenic stroke PROCEDURE DETAILS The patient was brought to the Catheterization Lab in the postabsorptive nonsedated state. Informed consent was obtained prior to the procedure. Local anesthetic was given subcutaneously to the left upper chest area with Lidocaine 2%. Incision was made to the left subclavicular area. ICM Loop Recorder was inserted. Steri-strips applied to left subclavicular incision. The patient tolerated the procedure well. 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 Device Recommendations: Follow up with Primary Care Physician PROCEDURE MEDICATIONS Versed 1 mg IV Oxygen: 2 L/min via nasal cannula Antibiotic given in appropriate timeframe. Ancef 1 Gm IV @ 11/08/2022 12:11:37 Signed By Catalino Sidhu MD On 11/08/2022 12:24:05 Catalino Sidhu MD
== END 2022-11-08 13:20 | disposition home or self-care (01) ==
PROVIDERS: PCP Family Medicine; Referring Provider Internal Medicine Cardiovascular Disease; Visit Provider Internal Medicine Cardiovascular Disease
DX: F32.A Depression, unspecified (principal); G30.9 Alzheimer's disease, unspecified; F02.80 Dementia in other diseases classified elsewhere, unspecified severity, without behavioral disturbance, psychotic disturbance, mood disturbance, and anxiety; F41.9 Anxiety disorder, unspecified; G47.33 Obstructive sleep apnea (adult) (pediatric); K21.9 Gastro-esophageal reflux disease without esophagitis; I10 Essential (primary) hypertension; E78.00 Pure hypercholesterolemia, unspecified; Z79.82 Long term (current) use of aspirin; Z79.899 Other long term (current) drug therapy; Z86.73 Personal history of transient ischemic attack (TIA), and cerebral infarction without residual deficits; Z86.16 Personal history of COVID-19; Z87.891 Personal history of nicotine dependence
CPT/HCPCS: 33285; 36415; 80048; 99152; J7040; J7050; A4216

== ENCOUNTER → 2022-11-19 | Outpatient (CLI) | payer MEDICARE, SELFPAY ==
--- NOTE | 2022-11-19 14:40 | RAD_ITS ---
STUDY: X-RAY - ABDOMEN/PELVIS REASON FOR EXAM: Female, 82 years old. Urinary retention- stat read TECHNIQUE: AP supine and upright views of the abdomen and pelvis. COMPARISON: Comparison is made with prior examination dated November 17, 2020. FINDINGS: Normal visualized lung bases. There is a moderate amount of colonic fecal material. There is no demonstrated free abdominal air. Tiny nonobstructive calculi are seen in the upper pole of the left kidney. Normal soft tissue structures. There are diffuse degenerative changes of the visualized lumbar spine. Status post right total hip replacement. Marked degree of joint space narrowing of the left hip joint. RAD/Abd Inc Decub and/or Erect IMPRESSION: Stable calcifications in the upper half of the left kidney. Moderate degree of fecal material is seen in the colon. Electronically Signed: Willard Flaherty MD at 15:25 EDT ,
== END | disposition home or self-care (01) ==
PROVIDERS: PCP Family Medicine; Referring Provider Nurse Practitioner Family; Visit Provider Nurse Practitioner Family
DX: R33.9 Retention of urine, unspecified (principal)
CPT/HCPCS: 74019; 87086; 87088; 87186

== ENCOUNTER 2023-01-06 19:28 | Emergency (ER) | payer MEDICARE, SELFPAY ==
[2023-01-06 19:29] VITALS: BP 149/66; PULSE 86; RESP 18; TEMP 36.7; O2SAT 98; BMI 22.9
[2023-01-06 20:04] LABS: Anion Gap 7 (5-15); BUN 12 mg/dL (7-18); BUN/Creat Ratio 16.8 RATIO (10-20); Calcium,Total 9.9 mg/dL (8.5-10.1); Chloride 96 mmol/L (98-107); Creatinine, Serum 0.72 mg/dL (0.55-1.02); EST Glomerular Filtration Rate 83 mL/min (>60); Est Glom Filt Rate - Afr Amer 100 mL/min (>60); Estimated Creatinine Clearance 35.88 ml/min; Glucose 134 mg/dL (74-106); Potassium 2.9 mmol/L (3.5-5.1); Sodium Level 133 mmol/L (136-145)
--- NOTE | 2023-01-06 22:00 | EKG12_ITS ---
Test Reason : ABNORMAL LABS Blood Pressure : / mmHG Vent. Rate : 064 BPM Atrial Rate : 064 BPM P-R Int : 168 ms QRS Dur : 088 ms QT Int : 434 ms P-R-T Axes : 025 -02 043 degrees QTc Int : 447 ms Normal sinus rhythm Nonspecific ST and T wave abnormality Abnormal ECG Confirmed by ZORAN BOONE, JUANITA ([id number]), supervising film or videotape editor NENA JONES ([id number]) on 01/11/2023 11:35:28 AM Referred By: Confirmed By:NIKKI MEEHAN MD
--- NOTE | 2023-01-06 22:11 | EDS_ITS ---
HPI History of Present Illness Chief Complaint: Abn Labs Informant: patient Onset/Context/Timing Onset: Today Context: Sudden Onset Timing: Continuous Worsened by: Nothing Relieved by: Nothing Narrative Narrative: Presents with hypokalemia that was noticed today. Patient had outpatient labs done today which showed a potassium of 2.7. Patient states her primary care physician contacted her and told her to come to the emergency department for potassium replacement. Patient has been on hydrochlorothiazide but does not take potassium with that. Denies any chest pain or shortness of breath. Patient denies any palpitations. Patient denies any symptoms. 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 Essential hypertension Fall GERD (gastroesophageal reflux disease) GI bleed History of CVA in adulthood History of dementia History of GI bleed Hypercholesterolemia Hypertensive emergency without congestive heart failure Hypothyroidism ZONIA (obstructive sleep apnea) Recurrent episodes of unresponsiveness TIA (transient ischemic attack) Vitamin D deficiency Home Medications fluoxetine 20 mg capsule 20 mg PO QHS depression 11/26/19 [History Last Taken 11/08/22] levocetirizine 5 mg tablet 5 mg PO QHS Check with primary doctor 11/26/19 [History Last Taken 11/25/19 22:00] hydrochlorothiazide 25 mg tablet 12.5 mg (1/2 x 25 mg) PO DAILY #15 tabs 11/27/19 [Rx Last Taken 11/08/22] losartan 100 mg tablet 100 mg PO DAILY #30 tabs 11/27/19 [Rx Last Taken 11/08/22] metoprolol tartrate 50 mg tablet 50 mg PO BID #60 tabs 11/27/19 [Rx Last Taken 11/08/22] aspirin 81 mg chewable tablet 81 mg PO BREAKFAST #0 tabs 06/15/22 [Rx Last Taken Unknown] atorvastatin 20 mg tablet 20 mg PO QHS #30 tabs 06/15/22 [Rx Last Taken Unknown] clopidogrel 75 mg tablet 75 mg PO DAILY #30 tabs 06/15/22 [Rx Last Taken Unknown] magnesium 500 mg tablet 500 mg PO DAILY 10/12/22 [History Last Taken Unknown] amlodipine 10 mg tablet 10 mg PO DAILY 10/16/22 [History Last Taken 11/08/22] hydralazine 25 mg tablet 25 mg PO DAILY 10/16/22 [History Last Taken 11/08/22] mirtazapine 15 mg tablet 7.5 mg PO DAILY 10/16/22 [History Last Taken Unknown] pantoprazole 40 mg tablet,delayed release 40 mg PO DAILY 10/16/22 [History Last Taken Unknown] pramipexole 1.5 mg tablet 1.5 mg PO DAILY 10/16/22 [History Last Taken Unknown] valsartan 320 mg-hydrochlorothiazide 25 mg tablet 1 tab PO DAILY 10/16/22 [History Last Taken Unknown] Allergy/AdvReac Type Severity Reaction Status Date / Time lisinopril Allergy Mild cough Verified 01/06/23 19:31 alendronate sodium Allergy Unknown unknown Verified 01/06/23 19:31 [From Fosamax] Sulfa (Sulfonamide Allergy Rash Verified 01/06/23 19:31 Antibiotics) atorvastatin [From Lipitor] AdvReac Mild muscle Verified 01/06/23 19:31 aches rosuvastatin [From Crestor] AdvReac Mild muscle Verified 01/06/23 19:31 aches codeine AdvReac Nausea Verified 01/06/23 19:31 NSAIDS (Non-Steroidal AdvReac Bleeding Verified 01/06/23 19:31 Anti-Inflamma Xekurax-RVF-OvV Reductase AdvReac Other Verified 01/06/23 19:31 Inhibitor [Dqqwbuh-Pkm-Zgf Reductase Inhibitor] Family History Mother Heart disease CVA (cerebral vascular accident) Father Heart disease Surgical History History of hysterectomy History of left mastoidectomy History of lumpectomy of right breast History of right hip replacement History of thyroid surgery Status post placement of implantable loop recorder (11/08/22) Social History household members: spouse Smoking Status: Former smoker how long ago did patient quit smoking: Quit ~ 24-25 years prior. alcohol intake: current alcohol intake frequency: a few times a month details: 1 drink/[place] nightly. substance use type: other details: Given THC chew per her family for sleep but prior no substance use. ROS ROS ED Constitutional Constitutional ED: Denies chills or fever(s) Eyes Eyes: Denies blurry vision or change in vision ENT ENT ED: Denies rhinorrhea or sore throat Cardiovascular Cardiovascular: Denies chest pain or palpitations Respiratory/Chest Respiratory/Chest: Denies cough or dyspnea Gastrointestinal Gastrointestinal: Denies nausea or vomiting Genitourinary Genitourinary ED: Denies dysuria or hematuria Musculoskeletal Musculoskeletal: Denies back pain or neck pain Integumentary Denies abscess or rash Neurologic Neurologic: Denies headache(s) or weakness Allergic/Immunologic Allergic/Immunologic ED: Denies mouth swelling or urticaria EXAM Physical Exam Const Vital Signs: 01/06/23 19:29 Temperature 98.0 F Temperature Source Temporal Pulse Rate 86 Respiratory Rate 18 Blood Pressure 149/66 H Blood Pressure Mean 93 Pulse Ox 98 Oxygen Delivery Method Room Air Positive well nourished and well developed General Appearance ED: well developed and NAD HEENT Reports moist mucous membranes Neck supple and no JVD Resp normal respiratory effort and clear to auscultation bilaterally Cardio regular rate and regular rhythm GI non-tender and non-distended Palpation: soft Extremity normal to inspection General Extremety ED: Negative for edema or tenderness General Extremity: Negative for edema Neuro oriented x3, CN's II-XII intact bilaterally and no sensory deficits noted Sensorium / Orientation: alert Motor Exam: strength 5/5 throughout Psych mental status grossly normal MDM MDM MDM Narrative Medical decision making narrative: Differential diagnosis includes hypokalemia and laboratory error. The basic metabolic profile was repeated here to assess for laboratory error versus hypokalemia. EKG will be obtained to assess for cardiac dysrhythmia due to the hypokalemia. Lab Data Lab results narrative: Basic metabolic profile was reviewed. Potassium was still low at 2.9. Chloride was slightly low at 96. Sodium was slightly low at 133. Glucose was slightly elevated at 134. The remainder is within normal limits. Labs: Laboratory Results - last 24 hr 01/06/23 19:35 Sodium 133 L Potassium 2.9 L Chloride 96 L Carbon Dioxide 30.0 Anion Gap 7 BUN 12 Creatinine 0.72 Estim Creat Clear Calc 35.88 Est GFR (MDRD) Af Amer 100 Est GFR (MDRD) Non-Af 83 BUN/Creatinine Ratio 16.8 Glucose 134 H Calcium 9.9 EKG Initial EKG: Attestation: I personally reviewed and interpreted this EKG as follows: Interpretation: Sinus Rhythm (64) and Non-Specific ST Changes Comments: EKG was obtained. On my independent interpretation, it showed a normal sinus rhythm with a rate of 64. [place] interval, QRS interval, and QTc intervals were all normal. [place] was normal. There are nonspecific ST-T wave changes. Prior EKG tracings: available for review Prior: Unchanged (10/16/2022) Treatment and Re-Evaluation :: Patient was given IV and oral potassium here. Patient was instructed to hold her hydrochlorothiazide. Patient was instructed to follow-up with her primary care physician in 3 to 5 days for reevaluation. Patient and family understood and were agreeable with the plan. All questions were answered. Discharge Plan Triage Chief Complaint: Abn Labs ED Provider: Vikram Goins Dx/Rx/DC Orders Clinical Impression: Essential hypertension, Hypokalemia Instructions: ED Hypokalemia Prescriptions: No Action fluoxetine 20 MG capsule 20 mg PO QHS levocetirizine 5 MG tablet 5 mg PO QHS losartan 100 MG tablet 100 mg PO DAILY Qty: 30 0RF hydrochlorothiazide 25 MG tablet 12.5 mg PO DAILY Qty: 15 0RF metoprolol tartrate 50 MG tablet 50 mg PO BID Qty: 60 0RF aspirin 81 mg Tablet,Chewable 81 mg PO BREAKFAST Qty: 0 0RF atorvastatin 20 mg Tablet 20 mg PO QHS Qty: 30 0RF clopidogrel 75 mg Tablet 75 mg PO DAILY Qty: 30 0RF magnesium 500 mg Tablet 500 mg PO DAILY mirtazapine 15 mg tablet 7.5 mg PO DAILY Patient Comments: TAKE 1/2 TO 1 (ONE-HALF TO ONE) TABLET BY MOUTH AT BEDTIME hydralazine 25 mg tablet 25 mg PO DAILY amlodipine 10 mg tablet 10 mg PO DAILY pantoprazole 40 mg tablet,delayed release (DR/EC) 40 mg PO DAILY pramipexole 1.5 mg tablet 1.5 mg PO DAILY Patient Comments: TAKE 1 TABLET 2 TO 3 HOURS BEFORE BEDTIME FOR RESTLESS LEGS valsartan-hydrochlorothiazide 320-25 mg tablet 1 tab PO DAILY Primary Care Provider: Vikram Segura Referrals: Vikram Segura MD [Primary Care Provider] - 3-5 Days Disposition Disposition: Home, Self Care
[2023-01-06] MEDS: Potassium Chloride Oral Tablet 20 MEQ 40 MEQ PO (22:59)
[2023-01-06 23:00] VITALS: RESP 18
[2023-01-06] MEDS: Potassium Chloride 10mEq/100mL 10 MEQ/100 ML IV.SOLN. 100 MEQ IV BOLUS (23:00)
[2023-01-07] MEDS: Potassium Chloride 10mEq/100mL 10 MEQ/100 ML IV.SOLN. 100 MEQ IV BOLUS (00:04)
[2023-01-07 01:19] VITALS: PULSE 67; RESP 18; O2SAT 97
== END 2023-01-07 01:20 | disposition home or self-care (01) ==
LOC: ED 22:21
PROVIDERS: Emergency Provider Emergency Medicine; PCP Family Medicine; Visit Provider Emergency Medicine
DX: I10 Essential (primary) hypertension (principal); E87.6 Hypokalemia; G47.33 Obstructive sleep apnea (adult) (pediatric); Z86.16 Personal history of COVID-19; Z86.73 Personal history of transient ischemic attack (TIA), and cerebral infarction without residual deficits; Z87.891 Personal history of nicotine dependence
CPT/HCPCS: 80048; 93005; 96365; 96366; 99283; A4216

== ENCOUNTER → 2023-01-06 | Outpatient (CLI) | payer MEDICARE, SELFPAY ==
[2023-01-06 18:27] LABS: Absolute Lymphocyte Count 1.37 X10^3/uL (0.83-4.51); Basophil# 0.08 X10^3/uL; Basophil% 1.2 % (0-1); Eosinophils% 3.1 % (0-5); Hematocrit 42.6 % (37-47); Hemoglobin 13.7 g/dL (12.0-15.0); Lymphocyte # 1.37 X10^3/ul (0.83-4.51); Lymphocyte % 21.3 % (19-41); Mean Corp Hgb Conc 32.2 g/dL (32-36); Mean Corpuscular Hgb 28.7 pg (27.0-32.0); Mean Corpuscular Volume 89.1 fL (81-99); Mean Platelet Vol. 10.5 fl (6.2-12.0); Monocyte# 0.77 X10^3/uL; NRBC Flagged by Analyzer 0 % (0-5); Neutrophil # 3.97 X10^3/uL (2.7-7.7); Neutrophil % 61.9 % (47-70); Platelet Count 284 K/mm3 (150-450); RBC Distribution Width CV 13.8 % (11.6-14.6); RBC Distribution Width SD 45.1 fl (35.1-43.9); Red Blood Count 4.78 M/mm3 (4.2-5.4); White Blood Count 6.4 K/mm3 (4.4-11.0)
[2023-01-06 19:06] LABS: AST(SGOT) 24 U/L (15-37); Alanine Aminotransfer ALT/SGPT 28 U/L (13-56); Albumin, Serum 3.9 g/dL (3.2-5.0); Alkaline Phosphatase 101 U/L (45-117); Anion Gap 7 (5-15); BUN 10 mg/dL (7-18); BUN/Creat Ratio 14.5 RATIO (10-20); Calcium,Total 9.6 mg/dL (8.5-10.1); Chloride 98 mmol/L (98-107); Creatinine, Serum 0.69 mg/dL (0.55-1.02); EST Glomerular Filtration Rate 86 mL/min (>60); Est Glom Filt Rate - Afr Amer 104 mL/min (>60); Glucose 124 mg/dL (74-106); Potassium 2.7 mmol/L (3.5-5.1); Protein, Total 7.9 g/dL (6.4-8.2); Sodium Level 133 mmol/L (136-145); T4 Free Direct 1.28 ng/dL (0.76-1.46); Thyroid Stim Hormone (TSH) 0.65 uIU/mL (0.358-3.74)
== END | disposition home or self-care (01) ==
LOC: MFPLAB 16:13
PROVIDERS: PCP Family Medicine; Visit Provider Family Medicine
DX: R68.89 Other general symptoms and signs (principal); R41.89 Other symptoms and signs involving cognitive functions and awareness; E87.1 Hypo-osmolality and hyponatremia
CPT/HCPCS: 36415; 80053; 84439; 84443; 85025

== ENCOUNTER → 2023-01-18 | Outpatient (CLI) | payer MEDICARE, SELFPAY ==
[2023-01-18 15:41] LABS: ALB/GLOB Ratio 1.2 RATIO (0.9-2.4); AST(SGOT) 26 U/L (15-37); Alanine Aminotransfer ALT/SGPT 26 U/L (13-56); Albumin, Serum 4.3 g/dL (3.2-5.0); Alkaline Phosphatase 89 U/L (45-117); Anion Gap 9 (5-15); BUN 14 mg/dL (7-18); BUN/Creat Ratio 17.7 RATIO (10-20); Calcium,Total 9.9 mg/dL (8.5-10.1); Chloride 97 mmol/L (98-107); Creatinine, Serum 0.79 mg/dL (0.55-1.02); EST Glomerular Filtration Rate 74 mL/min (>60); Est Glom Filt Rate - Afr Amer 89 mL/min (>60); Globulin 3.6 g/dL (2.2-4.2); Glucose 96 mg/dL (74-106); Magnesium 2.3 mg/dL (1.6-2.6); Potassium 3.7 mmol/L (3.5-5.1); Protein, Total 7.9 g/dL (6.4-8.2); Sodium Level 133 mmol/L (136-145)
== END | disposition home or self-care (01) ==
LOC: MFPLAB 12:10
PROVIDERS: PCP Family Medicine; Visit Provider Family Medicine
DX: E87.6 Hypokalemia (principal)
CPT/HCPCS: 36415; 80053; 83735

== ENCOUNTER 2023-04-02 12:42 | Emergency (ER) | payer MEDICARE, MEDICAID, SELFPAY ==
[2023-04-02 12:44] VITALS: BP 157/129; PULSE 87; RESP 16; TEMP 36.4; O2SAT 96
[2023-04-02 12:52] VITALS: BMI 22.9
[2023-04-02 12:53] VITALS: BMI 22.9
--- NOTE | 2023-04-02 12:55 | NURSING ---
stroke alert called
--- NOTE | 2023-04-02 12:57 | RAD_ITS ---
EXAM: XR CHEST, 1 VIEW CLINICAL INDICATION: Neuro deficit, acute, stroke suspected TECHNIQUE: Frontal view of the chest. COMPARISON: XR Chest dated 10/16/2022 FINDINGS: LUNGS AND PLEURAL SPACES: Normal. No consolidation or edema. No pneumothorax. No effusion. HEART: Normal heart size. MEDIASTINUM: No mediastinal or hilar mass. BONES/JOINTS: Chronic left-sided rib fractures again seen. TUBES, LINES AND DEVICES: Cardiac monitoring device projects over the left heart border. RAD/Chest 1 View IMPRESSION: No acute cardiopulmonary abnormality. Electronically Signed: David Aguirre MD at 14:07 EST ,
--- NOTE | 2023-04-02 12:57 | CT_ITS ---
EXAM: CT HEAD WITHOUT INTRAVENOUS CONTRAST CLINICAL INDICATION: Neuro deficit, acute, stroke suspected TECHNIQUE: Multiple axial images were obtained of the head without intravenous contrast. This CT exam was performed using one or more of the following dose reduction techniques: automated exposure control, adjustment of the mA and/or kV according to patient size, and/or use of iterative reconstruction technique. COMPARISON: CT Head dated 10/16/2022 FINDINGS: BRAIN AND EXTRA-AXIAL SPACES: No hemorrhage or mass effect. No acute ischemia. Old right parietal cortical infarct noted. Areas of diminished white matter density noted within both cerebral . Hemispheres suggestive of chronic microvascular change. Prominence of the cortical sulci and ventricles related to volume loss change. BONES/JOINTS: No suspicious lytic or blastic abnormality. SINUSES: No acute sinusitis. MASTOID AIR CELLS: Normal. Clear. CT/STROKE Brain/Head without Cont IMPRESSION: 1. No acute intracranial abnormality. 2. Stable chronic ischemic changes. Aspect score 10. N.B. : The above Results were Read Back by Davdi Aguirre MD to Vikram Goins DO, and understanding confirmed on 04/02/2023 13:18:53 (ET). Electronically Signed: David Aguirre MD at 13:19 EST ,
--- NOTE | 2023-04-02 12:57 | EKG12_ITS ---
Test Reason : stroke Blood Pressure : / mmHG Vent. Rate : 075 BPM Atrial Rate : 075 BPM P-R Int : 158 ms QRS Dur : 084 ms QT Int : 416 ms P-R-T Axes : 025 -02 034 degrees QTc Int : 464 ms Normal sinus rhythm Nonspecific ST and T wave abnormality Abnormal ECG Confirmed by ANNETTE BOONE, ZACH ([id number]), commissioning editor MIKKI BENNETT ([id number]) on 04/04/2023 1:17:23 PM Referred By: Confirmed By:ZACH BRYANT MD
--- NOTE | 2023-04-02 12:57 | CT_ITS ---
INDICATION: Neuro deficit, acute, stroke suspected EXAMINATION: CTA HEAD - with contrast 10/12/2022. Stroke W/ Contrast (and W/O if performed) TECHNIQUE: [place]/head CT angiogram protocol was performed following IV contrast. Routine carotid CT angiogram protocol was performed without and with IV contrast. NASCET criteria using the distal ICAs for comparison were used for evaluation of stenoses. 3D reconstructions were reviewed of the CT angiogram head and neck. A radiation dose optimization technique was used for this scan. IV Contrast dosage and agent: 100 mL of Isovue-370. COMPARISON: CTA head and neck with contrast 10/12/2022. FINDINGS: --Anterior cerebral circulation: ACAs: No significant stenosis at the visualized segments. ACOM: Present. MCAs: High-grade stenosis of the right distal M1 segment and bifurcation. High-grade stenosis in the posterior trunk of the right M2 segment at its origin. No significant stenosis in the left MCA circulation. --Posterior cerebral circulation: PCOMs: Normal bilateral posterior communicating arteries. room service food server: Suspicious high-grade stenosis of the right P2 segment in the perimesencephalic cistern. Minimal small vessel plaques without significant stenosis in the remaining posterior cerebral arteries. BASILAR ARTERY: No significant stenosis. --Carotid and vertebral circulation: AORTIC ARCH AND BRANCHES: Normal anatomy, patent. RIGHT CCA: No occlusion, significant stenosis or dissection. Nonocclusive calcified plaques in the medial wall of the right distal common carotid artery. RIGHT ICA: No occlusion, significant stenosis or dissection. LEFT CCA: No occlusion, significant stenosis or dissection. LEFT ICA: No occlusion, significant stenosis or dissection. Nonocclusive calcified plaques in the lateral wall of the left carotid bulb. RIGHT VERTEBRAL ARTERY: No occlusion, significant stenosis or dissection. LEFT VERTEBRAL ARTERY: No occlusion, significant stenosis or dissection. NECK SOFT TISSUES: Multiple hypodense nodules in the thyroid lobes, left more than right. LUNG APICES: Clear. BONES: Pronounced degenerative disc space height narrowing at C4-C5, C5-C6 and C6-C7 disc space levels are unchanged. No lytic or blastic lesions. CT/STROKE CTA Head AND Neck W/Con IMPRESSION: 1. High-grade stenosis of the right distal M1 segment and bifurcation and greater high-grade stenosis in the posterior trunk origin of the right M2 segment. 2. High-grade stenosis of the right P2 segment in the perimesencephalic cistern. No other significant stenosis in the posterior cerebral arteries. 3. Widely patent bilateral cervical carotid arteries and vertebral arteries. 4. Widely patent aortic arch and origins of the great vessels. 5. Suspicious progression of stenosis of the right distal M1 segment bifurcation in the posterior trunk origin of the right M2 segment when comparing the MIP reconstructed images to 10/12/2022. N.B. : The above Results were Read Back by Charles Espino MD to Vikram Goins DO, and understanding confirmed on 04/02/2023 13:59:59 (ET). Electronically Signed: Charles Espino MD at 14:01 EST ,
[2023-04-02 13:11] LABS: Absolute Lymphocyte Count 1.32 X10^3/uL (0.83-4.51); Absolute Neutrophil Count 4.8 X10^3/uL (2.0-7.7); Basophil# 0.11 X10^3/uL; Basophil% 1.6 % (0-1); Eosinophils% 1.4 % (0-5); Hematocrit 41.9 % (37-47); Hemoglobin 13.5 g/dL (12.0-15.0); Lymphocyte # 1.32 X10^3/ul (0.83-4.51); Lymphocyte % 18.6 % (19-41); Mean Corp Hgb Conc 32.2 g/dL (32-36); Mean Corpuscular Hgb 27.7 pg (27.0-32.0); Mean Corpuscular Volume 85.9 fL (81-99); Mean Platelet Vol. 9.3 fl (6.2-12.0); Monocyte# 0.76 X10^3/uL; Monocyte% 10.7 % (0-10); NRBC Flagged by Analyzer 0 % (0-5); Neutrophil # 4.76 X10^3/uL (2.7-7.7); Neutrophil % 67.3 % (47-70); Platelet Count 256 K/mm3 (150-450); RBC Distribution Width CV 14.5 % (11.6-14.6); RBC Distribution Width SD 45.1 fl (35.1-43.9); Red Blood Count 4.88 M/mm3 (4.2-5.4); White Blood Count 7.1 K/mm3 (4.4-11.0)
--- NOTE | 2023-04-02 13:16 | EDS_ITS ---
HPI History of Present Illness Chief Complaint: Neuro S/Sx Informant: patient Onset/Context/Timing Onset: Today Context: Sudden Onset Timing: Continuous Quality and Location: Positive for - (Dizziness) Onset: 1.5 hours prior to arrival Worsened by: Nothing Relieved by: Nothing Associated Symptoms Associated Symptoms: Negative for Headache, Nausea, Vomiting or Chest Pain Narrative Narrative: Patient presents with dizziness that began approximately a an hour and a half prior to arrival. Patient states she feels like she is off balance. Patient states she was having some difficulty ambulating because of her balance. Patient denies any unilateral weakness. Patient denies any headaches. Patient denies any nausea or vomiting. Patient denies any fevers or chills. Patient denies any chest pain or shortness of breath. Patient states she was eating some cookies when this began. 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 Essential hypertension Fall GERD (gastroesophageal reflux disease) GI bleed History of CVA in adulthood History of dementia History of GI bleed Hypercholesterolemia Hypertensive emergency without congestive heart failure Hypothyroidism ZONIA (obstructive sleep apnea) Recurrent episodes of unresponsiveness TIA (transient ischemic attack) Vitamin D deficiency Home Medications fluoxetine 20 mg capsule 20 mg PO QHS depression 11/26/19 [History Last Taken 11/08/22] levocetirizine 5 mg tablet 5 mg PO QHS Check with primary doctor 11/26/19 [History Last Taken 11/25/19 22:00] hydrochlorothiazide 25 mg tablet 12.5 mg (1/2 x 25 mg) PO DAILY #15 tabs 11/27/19 [Rx Last Taken 11/08/22] losartan 100 mg tablet 100 mg PO DAILY #30 tabs 11/27/19 [Rx Last Taken 11/08/22] metoprolol tartrate 50 mg tablet 50 mg PO BID #60 tabs 11/27/19 [Rx Last Taken 11/08/22] aspirin 81 mg chewable tablet 81 mg PO BREAKFAST #0 tabs 06/15/22 [Rx Last Taken Unknown] atorvastatin 20 mg tablet 20 mg PO QHS #30 tabs 06/15/22 [Rx Last Taken Unknown] clopidogrel 75 mg tablet 75 mg PO DAILY #30 tabs 06/15/22 [Rx Last Taken Unknown] magnesium 500 mg tablet 500 mg PO DAILY 10/12/22 [History Last Taken Unknown] amlodipine 10 mg tablet 10 mg PO DAILY 10/16/22 [History Last Taken 11/08/22] hydralazine 25 mg tablet 25 mg PO DAILY 10/16/22 [History Last Taken 11/08/22] mirtazapine 15 mg tablet 7.5 mg PO DAILY 10/16/22 [History Last Taken Unknown] pantoprazole 40 mg tablet,delayed release 40 mg PO DAILY 10/16/22 [History Last Taken Unknown] pramipexole 1.5 mg tablet 1.5 mg PO DAILY 10/16/22 [History Last Taken Unknown] valsartan 320 mg-hydrochlorothiazide 25 mg tablet 1 tab PO DAILY 10/16/22 [History Last Taken Unknown] Allergy/AdvReac Type Severity Reaction Status Date / Time lisinopril Allergy Mild cough Verified 01/06/23 19:31 alendronate sodium Allergy Unknown unknown Verified 01/06/23 19:31 [From Fosamax] Sulfa (Sulfonamide Allergy Rash Verified 01/06/23 19:31 Antibiotics) atorvastatin [From Lipitor] AdvReac Mild muscle Verified 01/06/23 19:31 aches rosuvastatin [From Crestor] AdvReac Mild muscle Verified 01/06/23 19:31 aches codeine AdvReac Nausea Verified 01/06/23 19:31 NSAIDS (Non-Steroidal AdvReac Bleeding Verified 01/06/23 19:31 Anti-Inflamma Sghvcmy-KUZ-EjI Reductase AdvReac Other Verified 01/06/23 19:31 Inhibitor [Tksvgvu-Cua-Mge Reductase Inhibitor] Family History Mother Heart disease CVA (cerebral vascular accident) Father Heart disease Surgical History History of hysterectomy History of left mastoidectomy History of lumpectomy of right breast History of right hip replacement History of thyroid surgery Status post placement of implantable loop recorder (11/08/22) Social History household members: spouse Smoking Status: Former smoker how long ago did patient quit smoking: Quit ~ 24-25 years prior. alcohol intake: current alcohol intake frequency: a few times a month details: 1 drink/[place] nightly. substance use type: other details: Given THC chew per her family for sleep but prior no substance use. ROS ROS ED Constitutional Constitutional ED: Denies chills or fever(s) Eyes Eyes: Denies blurry vision or change in vision ENT ENT ED: Denies rhinorrhea or sore throat Cardiovascular Cardiovascular: Denies chest pain or palpitations Respiratory/Chest Respiratory/Chest: Denies cough or dyspnea Gastrointestinal Gastrointestinal: Denies nausea or vomiting Genitourinary Genitourinary ED: Denies dysuria or hematuria Musculoskeletal Musculoskeletal: Denies back pain or neck pain Integumentary Denies abscess or rash Neurologic Neurologic: Denies headache(s) or weakness Allergic/Immunologic Allergic/Immunologic ED: Denies mouth swelling or urticaria EXAM Physical Exam Const Vital Signs: 04/02/23 12:44 04/02/23 13:18 04/02/23 13:18 Temperature 97.5 F L Temperature Source Temporal Pulse Rate 87 87 Respiratory Rate 16 17 Blood Pressure 157/129 H 175/77 H Blood Pressure Mean 138 109 Pulse Ox 96 98 Oxygen Delivery Method Room Air Room Air Room Air Positive well nourished and well developed General Appearance ED: well developed and NAD HEENT Reports moist mucous membranes Neck supple and no JVD Resp normal respiratory effort and clear to auscultation bilaterally Cardio Rate: regular rate Rhythm: regular rhythm GI soft to palpation, non-tender and non-distended Neuro oriented x3, CN's II-XII intact bilaterally and no sensory deficits noted Pro Coma Scale: document GCS findings Spontaneous Obeys Commands Oriented 15 Sensorium / Orientation: alert Motor Exam: strength 5/5 throughout Psych mental status grossly normal MDM MDM MDM Narrative Medical decision making narrative: Differential diagnosis includes stroke, intracranial bleeding, anemia, electrolyte abnormality, vertigo, infection, and labyrinthitis. CT scan of the brain will be obtained to assess for stroke and intracranial bleeding. CTA of the head and neck will be obtained to assess for large vessel occlusion. Chest x-ray will be obtained to assess for pneumonia. CBC will be obtained to assess for leukocytosis and anemia. Basic metabolic profile will be obtained to assess for electrolyte abnormality and renal function. PT was INR and PTT will be obtained to assess for coagulopathy. High-sensitivity troponin will be obtained to assess for cardiac ischemia. EKG will be obtained to assess for cardiac dysrhythmia and cardiac ischemia. Lab Data Attestation: I reviewed the patient's lab results. Lab results narrative: CBC was reviewed and was within normal limits. Basic metabolic profile was reviewed and was essentially within normal limits. PT with INR and PTT were reviewed and were within normal limits. High-sensitivity troponin was reviewed and was normal at 9. BGT was reviewed and was normal at 100. Labs: Laboratory Results - last 24 hr 04/02/23 04/02/23 12:50 13:07 WBC 7.1 RBC 4.88 Hgb 13.5 Hct 41.9 MCV 85.9 MCH 27.7 MCHC 32.2 RDW Std Deviation 45.1 H RDW Coeff of [place] 14.5 Plt Count 256 MPV 9.3 Immature Gran % (Auto) 0.400 Neut % (Auto) 67.3 Lymph % (Auto) 18.6 L [place] % (Auto) 10.7 H Eos % (Auto) 1.4 Baso % (Auto) 1.6 H Absolute Neuts (auto) 4.8 Absolute Lymphs (auto) 1.32 Nucleated RBC % 0 PT 12.2 INR 0.9 APTT 33.4 Sodium 136 Potassium 3.5 Chloride 101 Carbon Dioxide 28.0 Anion Gap 7 BUN 9 Creatinine 0.81 Estim Creat Clear Calc 44.30 Est GFR (MDRD) Af Amer 87 Est GFR (MDRD) Non-Af 72 BUN/Creatinine Ratio 11.2 Glucose 113 H Calcium 9.3 Troponin I High Sens 9 POC Glucose 100 Radiography Diagnostic Testing: Clinical Impression(s) from Imaging Studies Brain CT 04/02/23 12:57 IMPRESSION: 1. No acute intracranial abnormality. 2. Stable chronic ischemic changes. Aspect score 10. N.B. : The above Results were Read Back by Dvaid Aguirre MD to Vikram Goins DO, and understanding confirmed on 04/02/2023 13:18:53 (ET). Electronically Signed: David Aguirre MD at 13:19 EST , ADDENDUM: 04/02/23 1326 IMPRESSION: 1. No acute intracranial abnormality. 2. Stable chronic ischemic changes. Aspect score 10. N.B. : The above Results were Read Back by David Aguirre MD to Vikram Goins DO, and understanding confirmed on 04/02/2023 13:18:53 (ET). Electronically Signed: David Aguirre MD at 13:19 EST , Chest X-Ray 04/02/23 12:57 IMPRESSION: No acute cardiopulmonary abnormality. Electronically Signed: David Aguirre MD at 14:07 EST , Head/Neck CTA 04/02/23 12:57 IMPRESSION: 1. High-grade stenosis of the right distal M1 segment and bifurcation and greater high-grade stenosis in the posterior trunk origin of the right M2 segment. 2. High-grade stenosis of the right P2 segment in the perimesencephalic cistern. No other significant stenosis in the posterior cerebral arteries. 3. Widely patent bilateral cervical carotid arteries and vertebral arteries. 4. Widely patent aortic arch and origins of the great vessels. 5. Suspicious progression of stenosis of the right distal M1 segment bifurcation in the posterior trunk origin of the right M2 segment when comparing the MIP reconstructed images to 10/12/2022. N.B. : The above Results were Read Back by Charles Espino MD to Vikram Goins DO, and understanding confirmed on 04/02/2023 13:59:59 (ET). Electronically Signed: Charles Espino MD at 14:01 EST , ADDENDUM: 04/02/23 1408 IMPRESSION: 1. High-grade stenosis of the right distal M1 segment and bifurcation and greater high-grade stenosis in the posterior trunk origin of the right M2 segment. 2. High-grade stenosis of the right P2 segment in the perimesencephalic cistern. No other significant stenosis in the posterior cerebral arteries. 3. Widely patent bilateral cervical carotid arteries and vertebral arteries. 4. Widely patent aortic arch and origins of the great vessels. 5. Suspicious progression of stenosis of the right distal M1 segment bifurcation in the posterior trunk origin of the right M2 segment when comparing the MIP reconstructed images to 10/12/2022. N.B. : The above Results were Read Back by Charles Espino MD to Vikram Goins DO, and understanding confirmed on 04/02/2023 13:59:59 (ET). Electronically Signed: Charles Espino MD at 14:01 EST , CT scan of the brain was obtained. There are chronic changes. There is no acute intracranial abnormality noted. This was interpreted by the radiologist and was also independently reviewed by myself. CTA of the head and neck was obtained. There is high-grade stenosis of the right distal M1 segment and bifurcation and greater high-grade stenosis in the posterior trunk origin of the right M2 segment. There is also high-grade stenosis of the right P2 segment. There is also suspicious progression of the s tenosis of the right distal M1 segment bifurcation. There is no occlusion noted. This was interpreted by the radiologist and was also independently reviewed by myself. EKG Initial EKG: Attestation: I personally reviewed and interpreted this EKG as follows: Interpretation: Sinus Rhythm (75) and Non-Specific ST Changes Comments: EKG was obtained. On my independent interpretation, it showed a normal sinus rhythm with a rate of 75. TX interval, QRS interval, and QTc intervals were all normal. [place] was normal. There are nonspecific ST-T wave changes. Prior EKG tracings: available for review Prior: Unchanged (01/06/2023) Treatment and Re-Evaluation Narrative: Stroke alert was called. Patient was evaluated by stroke neurology. Patient had a NIH score of 0. Because of this, there is no indication for tenecteplase at this time. The CTA results were also discussed with Dr. Hoyos, stroke neurologist at [facility]. He does not feel any further treatment is necessary at this time. I recommended admission to the hospital. Patient does not want to stay. Patient states she needs to go home and take care of her dog. Patient was advised that her dizziness could persist which could cause her to fall. Patient was advised that she could develop intr acranial bleeding or fractures from the fall. Patient states she cannot stay in the hospital. Patient will sign out AGAINST MEDICAL ADVICE. Stroke Documentation Questions Stroke Team Activated: Yes Reviewed Inclusion/Exclusion criteria: Yes Was Patient considered for Endovascular Intervention?: No-CTA negative, determined not to be an endovascular candidate IV Thrombolytic Administered: No Discharge Plan Triage Chief Complaint: Neuro S/Sx Other Complaint: Dizziness ED Provider: Vikram Goins Dx/Rx/DC Orders Clinical Impression: Dizziness, Balance problem Instructions: ED Dizziness, Uncertain Cause Prescriptions: No Action fluoxetine 20 MG capsule 20 mg PO QHS levocetirizine 5 MG tablet 5 mg PO QHS losartan 100 MG tablet 100 mg PO DAILY Qty: 30 0RF hydrochlorothiazide 25 MG tablet 12.5 mg PO DAILY Qty: 15 0RF metoprolol tartrate 50 MG tablet 50 mg PO BID Qty: 60 0RF aspirin 81 mg Tablet,Chewable 81 mg PO BREAKFAST Qty: 0 0RF atorvastatin 20 mg Tablet 20 mg PO QHS Qty: 30 0RF clopidogrel 75 mg Tablet 75 mg PO DAILY Qty: 30 0RF magnesium 500 mg Tablet 500 mg PO DAILY mirtazapine 15 mg tablet 7.5 mg PO DAILY Patient Comments: TAKE 1/2 TO 1 (ONE-HALF TO ONE) TABLET BY MOUTH AT BEDTIME hydralazine 25 mg tablet 25 mg PO DAILY amlodipine 10 mg tablet 10 mg PO DAILY pantoprazole 40 mg tablet,delayed release (DR/EC) 40 mg PO DAILY pramipexole 1.5 mg tablet 1.5 mg PO DAILY Patient Comments: TAKE 1 TABLET 2 TO 3 HOURS BEFORE BEDTIME FOR RESTLESS LEGS valsartan-hydrochlorothiazide 320-25 mg tablet 1 tab PO DAILY Primary Care Provider: Vikram Segura Referrals: Vikram Segura MD [Primary Care Provider] - 3-5 Days Disposition Disposition: Against Medical Advice
[2023-04-02 13:18] VITALS: BP 175/77; PULSE 87; RESP 17; O2SAT 98
[2023-04-02 13:18] LABS: Bedside Glucose 100 mg/dL (74-106)
--- NOTE | 2023-04-02 13:21 | RAD.NOTE ---
Pt reports no change in her speech. Has a Southern accent as she is from [place] originally. Intermittent dizziness.
--- NOTE | 2023-04-02 13:30 | NURSING ---
Per [facility] Goins[facility]
[2023-04-02 13:31] LABS: Anion Gap 7 (5-15); BUN 9 mg/dL (7-18); BUN/Creat Ratio 11.2 RATIO (10-20); Calcium,Total 9.3 mg/dL (8.5-10.1); Chloride 101 mmol/L (98-107); Creatinine, Serum 0.81 mg/dL (0.55-1.02); EST Glomerular Filtration Rate 72 mL/min (>60); Est Glom Filt Rate - Afr Amer 87 mL/min (>60); Glucose 113 mg/dL (74-106); Potassium 3.5 mmol/L (3.5-5.1); Sodium Level 136 mmol/L (136-145); Troponin-I HS 9 pg/mL (3.0-54.0)
[2023-04-02 13:36] LABS: International Normalized Ratio 0.9; Prothrombin Time (Protime)PT. 12.2 SECONDS (11.7-14.9)
[2023-04-02 13:37] LABS: Partial Thromboplast Time 33.4 Seconds (24.1-36.2)
== END 2023-04-02 14:50 | disposition left against medical advice (07) ==
PROVIDERS: Emergency Provider Emergency Medicine; PCP Family Medicine; Visit Provider Emergency Medicine
DX: R42 Dizziness and giddiness (principal); J44.9 Chronic obstructive pulmonary disease, unspecified; G47.33 Obstructive sleep apnea (adult) (pediatric); Z86.16 Personal history of COVID-19; Z86.73 Personal history of transient ischemic attack (TIA), and cerebral infarction without residual deficits; Z87.891 Personal history of nicotine dependence
CPT/HCPCS: 70450; 70496; 70498; 71045; 80048; 82962; 84484; 85025; 85610; 85730; 93005; 99285; Q9967; A4216

== ENCOUNTER 2023-04-28 09:56 | Emergency (ER) | payer MEDICARE, MEDICAID, SELFPAY ==
[2023-04-28 09:58] VITALS: BP 140/67; PULSE 86; RESP 16; TEMP 36.4; O2SAT 95; BMI 23.7
--- NOTE | 2023-04-28 10:31 | CT_ITS ---
STUDY: CT BRAIN WITHOUT CONTRAST REASON FOR EXAM: Female, 82 years old. Dizzy RADIATION DOSAGE (If Supplied By Facility): CTDIvol = ( 44.99 ) mGy, DLP = ( 779.24 ) mGycm TECHNIQUE: Transaxial CT imaging of the brain was performed without administration of intravenous contrast material. Individualized dose optimization techniques were used for this CT. COMPARISON: Comparison is made with prior study dated April 02, 2023. FINDINGS: Normal soft tissue structures. Normal calvarium. There is mild cerebral atrophy with widening of the extra-axial spaces and ventricular dilatation. There are areas of decreased attenuation within the white matter tracts of the supratentorial brain, consistent with microvascular disease changes. Stable 1.8 cm x 2 cm arachnoid cyst in the anterior aspect of the left temporal fossa. Stable focal encephalomalacia in the posterior right parietal lobe. Normal basal ganglia and thalami. Normal brainstem. Normal cerebellum. There is no intracranial hemorrhage. There are no findings of an acute ischemic infarction. At [] plaque formation of the cavernous portions of the internal carotid arteries bilaterally. Normal visualized paranasal sinuses. CT/Brain/Head without Contrast IMPRESSION: Chronic involutional changes of the brain. Electronically Signed: Willard Flaherty MD at 12:13 [facility] ,
--- NOTE | 2023-04-28 10:31 | EKG12_ITS ---
Test Reason : WEAKNESS Blood Pressure : / mmHG Vent. Rate : 072 BPM Atrial Rate : 072 BPM P-R Int : 158 ms QRS Dur : 082 ms QT Int : 412 ms P-R-T Axes : 021 001 050 degrees QTc Int : 451 ms Normal sinus rhythm Normal ECG Confirmed by ANNETTE BOONE, ZACH ([id number]), graphic editor MIKKI BENNETT ([id number]) on 04/29/2023 7:15:56 AM Referred By: Confirmed By:ZACH BRYANT MD
[2023-04-28] MEDS: 0.9% Normal Saline (1000mL) 1,000 ML 150 ML IV (10:56)
[2023-04-28 11:07] LABS: Absolute Neutrophil Count 5.3 X10^3/uL (2.0-7.7); Basophil# 0.08 X10^3/uL; Basophil% 1.1 % (0-1); Eosinophil# 0.09 X10^3/uL; Eosinophils% 1.2 % (0-5); Hematocrit 40.4 % (37-47); Hemoglobin 12.7 g/dL (12.0-15.0); Lymphocyte % 14.9 % (19-41); Mean Corp Hgb Conc 31.4 g/dL (32-36); Mean Corpuscular Hgb 27.1 pg (27.0-32.0); Mean Corpuscular Volume 86.1 fL (81-99); Mean Platelet Vol. 9.4 fl (6.2-12.0); Monocyte% 10.8 % (0-10); NRBC Flagged by Analyzer 0 % (0-5); Neutrophil # 5.29 X10^3/uL (2.7-7.7); Neutrophil % 71.7 % (47-70); Platelet Count 251 K/mm3 (150-450); RBC Distribution Width CV 14.5 % (11.6-14.6); RBC Distribution Width SD 45.3 fl (35.1-43.9); Red Blood Count 4.69 M/mm3 (4.2-5.4); White Blood Count 7.4 K/mm3 (4.4-11.0)
[2023-04-28 11:25] LABS: Anion Gap 6 (5-15); BUN 13 mg/dL (7-18); BUN/Creat Ratio 15.1 RATIO (10-20); Calcium,Total 9.2 mg/dL (8.5-10.1); Chloride 98 mmol/L (98-107); Creatinine, Serum 0.86 mg/dL (0.55-1.02); EST Glomerular Filtration Rate 67 mL/min (>60); Est Glom Filt Rate - Afr Amer 81 mL/min (>60); Estimated Creatinine Clearance 41.72 ml/min; Glucose 95 mg/dL (74-106); Potassium 3.7 mmol/L (3.5-5.1); Sodium Level 132 mmol/L (136-145); Troponin-I HS 8 pg/mL (3.0-54.0)
[2023-04-28 11:36] LABS: Bacteria 0 SEEN /hpf (None Seen); Mucous, Urine 0 SEEN /hpf (<or=2+); Red Blood Cells-Urine 0 SEEN /hpf (0-5)
[2023-04-28 11:37] LABS: Color, Urine Straw (Yellow); Glucose, Dipstick Normal (Normal); Ketone-Dipstick Negative (Negative); Leukocyte Esterase-Dipstick 25 /ul (Negative); Nitrite-Dipstick Negative (Negative); Occult Blood-Urine Negative /ul (Negative); Protein-Dipstick Negative (Negative); Urine Bilirubin Dipstick Negative (Negative); Urine Clarity Clear (Clear); Urine Urobilinogen Normal (Normal)
[2023-04-28 11:53] LABS: Squamous Epithelial Cells - UA 5-10 SEEN /hpf (5-10); White Blood Cells 0-5 SEEN /hpf (0-5)
[2023-04-28 12:00] VITALS: BP 167/58; PULSE 78; RESP 18
--- NOTE | 2023-04-28 12:44 | EDS_ITS ---
HPI History of Present Illness Chief Complaint: General Illness Informant: patient Onset/Context/Timing Onset: Today Narrative Narrative: Patient presents with her daughter secondary to feeling lightheaded and weak. She states that she has a problem with insomnia and gets up very early in the morning. After taking her morning meds she started feeling lightheaded when she went to take her dog out. She denies any spinning sensation. She denies chest pain or palpitations. She did not feel she was going to pass out. 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 Essential hypertension Fall GERD (gastroesophageal reflux disease) GI bleed History of CVA in adulthood History of dementia History of GI bleed Hypercholesterolemia Hypertensive emergency without congestive heart failure Hypothyroidism ZONIA (obstructive sleep apnea) Recurrent episodes of unresponsiveness TIA (transient ischemic attack) Vitamin D deficiency Home Medications aspirin 81 mg chewable tablet 81 mg PO BREAKFAST #0 tabs 06/15/22 [Rx Last Taken Unknown] clopidogrel 75 mg tablet 75 mg PO DAILY #30 tabs 06/15/22 [Rx Last Taken Unknown] amlodipine 10 mg tablet 5 mg PO DAILY 10/16/22 [History Last Taken 11/08/22] mirtazapine 15 mg tablet 7.5 mg PO DAILY 10/16/22 [History Last Taken Unknown] pantoprazole 40 mg tablet,delayed release 40 mg PO DAILY 10/16/22 [History Last Taken Unknown] pramipexole 1.5 mg tablet 1.5 mg PO DAILY 10/16/22 [History Last Taken Unknown] valsartan 320 mg-hydrochlorothiazide 25 mg tablet 1 tab PO DAILY 10/16/22 [History Last Taken Unknown] atorvastatin 40 mg tablet 40 mg PO QHS 04/28/23 [History Last Taken Unknown] chlorpheniramine maleate 4 mg tablet (Allergy (chlorpheniramine)) 4 mg PO QHS 04/28/23 [History Last Taken Unknown] memantine 10 mg tablet 10 mg PO DAILY 04/28/23 [History Last Taken Unknown] potassium chloride 20 mEq tablet,extended release(part/cryst) 20 meq PO BID 04/28/23 [History Last Taken Unknown] trazodone 50 mg tablet 50 mg PO QHS 04/28/23 [History Last Taken Unknown] Allergy/AdvReac Type Severity Reaction Status Date / Time lisinopril Allergy Mild cough Verified 04/28/23 09:57 alendronate sodium Allergy Unknown unknown Verified 04/28/23 09:57 [From Fosamax] Sulfa (Sulfonamide Allergy Rash Verified 04/28/23 09:57 Antibiotics) atorvastatin [From Lipitor] AdvReac Mild muscle Verified 04/28/23 09:57 aches rosuvastatin [From Crestor] AdvReac Mild muscle Verified 04/28/23 09:57 aches codeine AdvReac Nausea Verified 04/28/23 09:57 NSAIDS (Non-Steroidal AdvReac Bleeding Verified 04/28/23 09:57 Anti-Inflamma Family History Mother Heart disease CVA (cerebral vascular accident) Father Heart disease Surgical History History of hysterectomy History of left mastoidectomy History of lumpectomy of right breast History of right hip replacement History of thyroid surgery Status post placement of implantable loop recorder (11/08/22) Social History household members: spouse Smoking Status: Former smoker how long ago did patient quit smoking: Quit ~ 24-25 years prior. alcohol intake: current alcohol intake frequency: a few times a month details: 1 drink/[place] nightly. substance use type: other details: Given THC chew per her family for sleep but prior no substance use. ROS ROS ED Constitutional Constitutional ED: Denies chills or fever(s) Eyes Eyes: Denies change in vision or discharge from eye(s) ENT ENT ED: Denies discharge from eye(s), rhinorrhea or sore throat Cardiovascular Cardiovascular: Denies chest pain or palpitations Respiratory/Chest Respiratory/Chest: Denies cough or dyspnea Gastrointestinal Gastrointestinal: Denies abdominal pain, nausea or vomiting Genitourinary Genitourinary ED: Denies difficulty urinating or dysuria Musculoskeletal Musculoskeletal: Denies back pain or extremity pain Integumentary Denies Abrasions or rash Neurologic Neurologic: Denies headache(s) or weakness Psychiatric Psychiatric: Denies anxiety or depression Allergic/Immunologic Allergic/Immunologic ED: Denies lip swelling or urticaria EXAM Physical Exam Const Vital Signs: 04/28/23 09:58 04/28/23 11:04 04/28/23 12:00 Temperature 97.6 F L Temperature Source Temporal Pulse Rate 86 78 Respiratory Rate 16 18 Respiratory Effort Normal Respiratory Pattern Normal Blood Pressure 140/67 H 167/58 H Blood Pressure Mean 91 94 Pulse Ox 95 Oxygen Delivery Method Room Air Positive well nourished and well developed General Appearance ED: well developed HEENT Reports moist mucous membranes Eyes EOMs intact bilaterally Chest Wall inspection of chest normal and palpation of chest normal Resp normal respiratory effort and clear to auscultation bilaterally Cardio regular rate and regular rhythm GI non-tender Palpation: soft Extremity normal to inspection Neuro oriented x3 and no sensory deficits noted Motor Exam: strength 5/5 throughout Psych mental status grossly normal Skin no rashes or lesions noted MDM MDM MDM Narrative Medical decision making narrative: 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 IV line initiated. Labwork obtained to joni reyes for leukocytosis, anemia, and electrolyte derangement. EKG obtained to evaluate for cardiac arrhythmia/ischemia. Head CT obtained given her lightheadedness. Urinalysis obtained to evaluate for infection/hematuria. Patient given IV fluids. History & Record Review Discussion w/independent historian: Patient and Family Additional record(s) reviewed:: Prior labs Lab Data Attestation: I reviewed the patient's lab results. Labs: Laboratory Results - last 24 hr 04/28/23 04/28/23 10:58 11:09 WBC 7.4 RBC 4.69 Hgb 12.7 Hct 40.4 MCV 86.1 MCH 27.1 MCHC 31.4 L RDW Std Deviation 45.3 H RDW Coeff of Kierra 14.5 Plt Count 251 MPV 9.4 Immature Gran % (Auto) 0.300 Neut % (Auto) 71.7 H Lymph % (Auto) 14.9 L [place] % (Auto) 10.8 H Eos % (Auto) 1.2 Baso % (Auto) 1.1 H Absolute Neuts (auto) 5.3 Absolute Lymphs (auto) 1.10 Nucleated RBC % 0 Sodium 132 L Potassium 3.7 Chloride 98 Carbon Dioxide 28.0 Anion Gap 6 BUN 13 Creatinine 0.86 Estim Creat Clear Calc 41.72 Est GFR (MDRD) Af Amer 81 Est GFR (MDRD) Non-Af 67 BUN/Creatinine Ratio 15.1 Glucose 95 Calcium 9.2 Troponin I High Sens 8 Urine Color Straw Urine Clarity Clear Urine pH 7.0 Ur Specific [place] 1.010 Urine Protein Negative Urine Glucose (UA) Normal Urine Ketones Negative Urine Occult Blood Negative Urine Nitrite Negative Urine Bilirubin Negative Urine Urobilinogen Normal Ur Leukocyte Esterase 25 H Urine RBC 0 SEEN Urine WBC 0-5 SEEN Ur Squamous Epith Cells 5-10 SEEN Urine Bacteria 0 SEEN Urine Mucus 0 SEEN Radiography Diagnostic Testing: Clinical Impression(s) from Imaging Studies Brain CT 04/28/23 10:31 IMPRESSION: Chronic involutional changes of the brain. Electronically Signed: Willard Flaherty MD at 12:13 EST , EKG Initial EKG: Attestation: I personally reviewed and interpreted this EKG as follows: Interpretation: Sinus Rhythm (Sinus at 72 with 1/[address] depression in V5 and V6. This does appear similar to prior study from 04/02/2023.) Treatment and Re-Evaluation :: Swab for COVID, influenza, RSV was obtained and negative. CBC reveals normal white count at 7.4 neutrophils. Hemoglobin normal at 12.7. Chemistry studies reveal a sodium of 132. She has had similar sodium values in the past on prior labs. Renal function is normal. Troponin is normal at 8. Urinalysis reveals epithelial cells but no evidence of infection. CT scan of the head reveals chronic changes with no acute findings. EKG is sinus rhythm with minimal ST depression in the lateral precordial leads, unchanged from prior. On repeat evaluation patient states she feels better. She was able to ambulate to the restroom twice without difficulty. She does feel comfortable discharge to home and family will check in on her frequently. Patient discharged home with return instructions. Discharge Plan Triage Chief Complaint: General Illness ED Provider: Genny Worley Dx/Rx/DC Orders Clinical Impression: Dizziness Instructions: ED Dizziness, Uncertain Cause Prescriptions: No Action aspirin 81 mg Tablet,Chewable 81 mg PO BREAKFAST Qty: 0 0RF clopidogrel 75 mg Tablet 75 mg PO DAILY Qty: 30 0RF mirtazapine 15 mg tablet 7.5 mg PO DAILY Patient Comments: TAKE 1/2 TO 1 (ONE-HALF TO ONE) TABLET BY MOUTH AT BEDTIME amlodipine 10 mg tablet 5 mg PO DAILY pantoprazole 40 mg tablet,delayed release (DR/EC) 40 mg PO DAILY pramipexole 1.5 mg tablet 1.5 mg PO DAILY Patient Comments: TAKE 1 TABLET 2 TO 3 HOURS BEFORE BEDTIME FOR RESTLESS LEGS valsartan-hydrochlorothiazide 320-25 mg tablet 1 tab PO DAILY memantine 10 mg tablet 10 mg PO DAILY potassium chloride 20 mEq tablet,ER particles/crystals 20 meq PO BID trazodone 50 mg tablet 50 mg PO QHS atorvastatin 40 mg tablet 40 mg PO QHS chlorpheniramine maleate [Allergy (chlorpheniramine)] 4 mg tablet 4 mg PO QHS Primary Care Provider: Vikram Segura Referrals: Vikram Segura MD [Primary Care Provider] - 3-5 Days if not improving Disposition Disposition: Home, Self Care Discharge Date/Time: 04/28/23 12:55
== END 2023-04-28 12:55 | disposition home or self-care (01) ==
PROVIDERS: Emergency Provider Emergency Medicine; PCP Family Medicine; Visit Provider Emergency Medicine
DX: R42 Dizziness and giddiness (principal); G30.9 Alzheimer's disease, unspecified; F02.80 Dementia in other diseases classified elsewhere, unspecified severity, without behavioral disturbance, psychotic disturbance, mood disturbance, and anxiety; J44.9 Chronic obstructive pulmonary disease, unspecified; I10 Essential (primary) hypertension; Z79.02 Long term (current) use of antithrombotics/antiplatelets; Z79.82 Long term (current) use of aspirin; Z79.899 Other long term (current) drug therapy; Z95.818 Presence of other cardiac implants and grafts; Z86.73 Personal history of transient ischemic attack (TIA), and cerebral infarction without residual deficits; Z87.891 Personal history of nicotine dependence; Z86.16 Personal history of COVID-19
CPT/HCPCS: 70450; 80048; 81001; 84484; 85025; 87631; 93005; 96360; 96361; 99284; J7030; A4216

== ENCOUNTER 2023-06-11 09:37 | Emergency (ER) | payer MEDICARE, MEDICAID, SELFPAY ==
[2023-06-11 09:38] VITALS: BP 171/80; PULSE 92; RESP 16; TEMP 36.4; O2SAT 98
--- NOTE | 2023-06-11 10:12 | RAD_ITS ---
HISTORY: chest pain. TECHNIQUE: XR Chest 1 View. COMPARISON: 04/02/2023. FINDINGS: CARDIOMEDIASTINAL BORDERS: Cardiac silhouette within normal limits in size. Mediastinal contour unchanged with calcification tortuosity of the aorta. Linear device over the cardiac border again seen. LUNGS: Radiographically clear. PLEURA: No pleural effusion or pneumothorax seen. OSSEOUS STRUCTURES: Degenerative change. Old left rib fractures. RAD/Chest 1 View (Portable) IMPRESSION: No acute cardiopulmonary process identified. Electronically Signed: Anushka Butts MD at 10:54 EST ,
--- NOTE | 2023-06-11 10:12 | EKG12_ITS ---
Test Reason : Blood Pressure : / mmHG Vent. Rate : 078 BPM Atrial Rate : 078 BPM P-R Int : 152 ms QRS Dur : 076 ms QT Int : 384 ms P-R-T Axes : 030 001 000 degrees QTc Int : 437 ms Normal sinus rhythm Nonspecific ST and T wave abnormality Abnormal ECG Confirmed by ANNETTE BOONE, ZACH ([id number]), magazine editor MIKKI BENNETT ([id number]) on 06/13/2023 9:47:14 AM Referred By: Confirmed By:ZACH BRYANT MD
--- NOTE | 2023-06-11 10:14 | EX.ED.DYSGE1 ---
HPI History of Present Illness Chief Complaint: Edema Informant: patient and family Onset/Context/Timing Onset: Today Context: Gradual Onset Timing: Continuous Current Severity: Mild Maximum Severity: Mild Narrative Narrative: 83-year-old female with past medical history of dementia, mild COPD, hypertension and prior stroke. Reportedly no cardiac history. She has had bilateral leg swelling that started really today according to her and family. Daughters present in the room. No history of CHF or kidney disease according to them. Patient lives alone. Her 5 years ago. Daughter states she does have a bourbon about once a night. Patient denies any recent illness or hospitalization. She has mild shortness of breath from time to time. No chest pain. 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 Essential hypertension Fall GERD (gastroesophageal reflux disease) GI bleed History of CVA in adulthood History of dementia History of GI bleed Hypercholesterolemia Hypertensive emergency without congestive heart failure Hypothyroidism ZONIA (obstructive sleep apnea) Recurrent episodes of unresponsiveness TIA (transient ischemic attack) Vitamin D deficiency Home Medications aspirin 81 mg chewable tablet 81 mg PO BREAKFAST #0 tabs 06/15/22 [Rx Last Taken Unknown] clopidogrel 75 mg tablet 75 mg PO DAILY #30 tabs 06/15/22 [Rx Last Taken Unknown] mirtazapine 15 mg tablet 7.5 mg PO DAILY 10/16/22 [History Last Taken Unknown] pantoprazole 40 mg tablet,delayed release 40 mg PO DAILY 10/16/22 [History Last Taken Unknown] pramipexole 1.5 mg tablet 1.5 mg PO DAILY 10/16/22 [History Last Taken Unknown] valsartan 320 mg-hydrochlorothiazide 25 mg tablet 1 tab PO DAILY 10/16/22 [History Last Taken Unknown] atorvastatin 40 mg tablet 40 mg PO QHS 04/28/23 [History Last Taken Unknown] chlorpheniramine maleate 4 mg tablet (Allergy (chlorpheniramine)) 4 mg PO QHS 04/28/23 [History Last Taken Unknown] memantine 10 mg tablet 10 mg PO DAILY 04/28/23 [History Last Taken Unknown] potassium chloride 20 mEq tablet,extended release(part/cryst) 20 meq PO BID 04/28/23 [History Last Taken Unknown] trazodone 50 mg tablet 50 mg PO QHS 04/28/23 [History Last Taken Unknown] amlodipine 5 mg tablet 5 mg PO DAILY 06/11/23 [History Last Taken Unknown] Allergy/AdvReac Type Severity Reaction Status Date / Time lisinopril Allergy Mild cough Verified 06/11/23 09:38 alendronate sodium Allergy Unknown unknown Verified 06/11/23 09:38 [From Fosamax] Sulfa (Sulfonamide Allergy Rash Verified 06/11/23 09:38 Antibiotics) atorvastatin [From Lipitor] AdvReac Mild muscle Verified 06/11/23 09:38 aches rosuvastatin [From Crestor] AdvReac Mild muscle Verified 06/11/23 09:38 aches codeine AdvReac Nausea Verified 06/11/23 09:38 NSAIDS (Non-Steroidal AdvReac Bleeding Verified 06/11/23 09:38 Anti-Inflamma Family History Mother Heart disease CVA (cerebral vascular accident) Father Heart disease Surgical History History of hysterectomy History of left mastoidectomy History of lumpectomy of right breast History of right hip replacement History of thyroid surgery Status post placement of implantable loop recorder (11/08/22) Social History household members: spouse Smoking Status: Former smoker how long ago did patient quit smoking: Quit ~ 24-25 years prior. alcohol intake: current alcohol intake frequency: a few times a month details: 1 drink/[place] nightly. substance use type: other details: Given THC chew per her family for sleep but prior no substance use. ROS ROS ED ROS Narrative Bilateral leg swelling. Mild shortness of breath. Review of Systems ROS Unobtainable: Denies due to encephalopathy Constitutional Constitutional ED: Denies chills or fever(s) Eyes Eyes: Denies blurry vision ENT ENT ED: Denies ear pain Cardiovascular Cardiovascular: Denies chest pain Respiratory/Chest Respiratory/Chest: Denies cough or dyspnea Gastrointestinal Gastrointestinal: Denies abdominal pain Genitourinary Genitourinary ED: Denies hematuria Musculoskeletal Musculoskeletal: Denies arthralgias or back pain Integumentary Denies abscess or Abrasions Neurologic Neurologic: Denies headache(s) Psychiatric Psychiatric: Denies anxiety or depression Endocrine Endocrinology: Denies cold intolerance Hematologic/Lymphatic Hematologic/Lymphatic: Reports none Allergic/Immunologic Allergic/Immunologic ED: Denies mouth swelling, tongue swelling or urticaria EXAM Physical Exam Narrative Exam Narrative: 83 female no acute distress sitting upright in bed. Daughter at bedside. Vital signs stable afebrile. Pulse ox 98% on room air no signs hypoxia. H EENT exam unremarkable. Neck nontender no JVD. No lymphadenopathy. Lungs clear to auscultation bilaterally. Heart regular rhythm rate about 90 no murmur. Chest wall nontender. Abdomen soft nontender. Moving all 4 extremities. Neurovascularly intact. Normal strength. She has bite pedal mild foot and ankle edema. Calves are nontender without edema or cords. Neurologically she is awake and alert. Answering questions following commands. Const Vital Signs: 06/11/23 09:38 06/11/23 10:08 06/11/23 10:12 Temperature 97.6 F L Temperature Source Temporal Pulse Rate 92 Respiratory Rate 16 Respiratory Effort Normal Non-Labored Respiratory Pattern Normal Blood Pressure 171/80 H Blood Pressure Mean 110 Pulse Ox 98 Oxygen Delivery Method Room Air Room Air 06/11/23 11:01 Temperature Temperature Source Pulse Rate Respiratory Rate Respiratory Effort Respiratory Pattern Blood Pressure 150/71 H Blood Pressure Mean 97 Pulse Ox Oxygen Delivery Method Positive well nourished and well developed; Negative for obese, cachectic, contractures or unkempt General Appearance ED: well developed and NAD; Negative for unkempt, cachectic, contractures, cyanotic, diaphoretic or pallor Nutritional Appearance: Negative for cachectic or obese HEENT Negative for trauma or tenderness Eyes PERRL and EOMs intact bilaterally General Eye ED: Negative for pale conjunctiva, scleral icterus or other Neck no lymphadenopathy, supple and no JVD General: Negative for tenderness Lymph Lymphatic: Negative for other Chest Wall Negative for inspection of chest normal or palpation of chest normal Chest: other Resp normal respiratory effort and clear to auscultation bilaterally Effort and Inspection: Negative for retractions Auscultation: Negative for rales, rhonchi or wheezes Cardio regular rate, regular rhythm, S1 normal heart sound, S2 normal heart sound and no murmurs Rate: Negative for bradycardia or tachycardic GI normal to inspection, nondistended, normoactive bowel sounds, non-tender, non-distended and no masses Inspection: Negative for abdominal distention Auscultation: normoactive bowel sounds Palpation: soft; Negative for tender, guarding or rebound tenderness present Back/Spine no CVA tenderness General Back: Negative for CVA tenderness Cervical Spine: Negative for cervical spine tenderness Thoracic Spine / Upper Back: Negative for thoracic spinal tenderness Lumbar Spine / Lower Back: Negative for lumbar spinal tenderness Extremity Negative for normal to inspection Extremity Narrative: Limited by pedal and ankle edema. General Extremety ED: Yes edema; Negative for tenderness General Extremity: edema Neuro oriented x3 and CN's II-XII intact bilaterally Sensorium / Orientation: alert; Negative for lethargic or stuporous Motor Exam: strength 5/5 throughout Psych mental status grossly normal Appearance: Negative for unkempt Attitude: No agitated Mood & Affect: Negative for depressed, anxious or tearful Skin no rashes or lesions noted and no wounds General Skin Exam: Negative for jaundice or pallor Lesions: No lesion noted Rashes: No rashes noted Trauma: Negative for abrasion Wounds: Negative for wounds noted MDM MDM MDM Narrative Medical decision making narrative: 83-year-old female with new onset foot and ankle edema. Obviously congestive heart failure or kidney issues are a possibility this could also be from low albumin which the family is concerned about because is a physician in the family and the patient drinks daily and does not have the best nutrition reportedly. Repeat exam patient is doing well at 1 PM. We went over all of her test results of both her and her daughter. She actually is very good labs. Her EKG and chest x-ray were unremarkable. She has very minimal ankle edema bilaterally. Is actually improved since she has been here. She was not given any medications here. I do not think she needs to be started on a diuretic yet. They will follow-up with her primary care physician Dr. Vikram Segura for further evaluation. We discussed a possible echocardiogram if this gets worse. Patient and family are comfortable with the plan. History & Record Review Discussion w/independent historian: Patient and Family Additional record(s) reviewed:: Prior inpatient record, Prior outpatient record, Prior ED visit and Prior labs Lab Data Attestation: I reviewed the patient's lab results. Lab results narrative: CBC unremarkable white count of 6.5. H&H 12.4 and 38. Platelets 252. Electrolytes show a gap of 6. Normal BUN and creatinine are 12 and 0.7. Glucose 105. Liver enzymes are normal. Albumin is normal at 3.9 Labs: Laboratory Results - last 24 hr 06/11/23 10:27 WBC 6.5 RBC 4.39 Hgb 12.4 Hct 38.4 MCV 87.5 MCH 28.2 MCHC 32.3 RDW Std Deviation 47.8 H RDW Coeff of Kierra 14.9 H Plt Count 252 MPV 9.2 Immature Gran % (Auto) 0.500 Neut % (Auto) 74.5 H Lymph % (Auto) 11.1 L [place] % (Auto) 11.6 H Eos % (Auto) 1.4 Baso % (Auto) 0.9 Absolute Neuts (auto) 4.8 Absolute Lymphs (auto) 0.72 L Nucleated RBC % 0 Sodium 136 Potassium 3.9 Chloride 106 Carbon Dioxide 24.0 Anion Gap 6 BUN 12 Creatinine 0.76 Est GFR (MDRD) Af Amer 93 Est GFR (MDRD) Non-Af 77 BUN/Creatinine Ratio 15.7 Glucose 105 Calcium 9.6 Total Bilirubin 0.60 AST 25 ALT 20 Alkaline Phosphatase 93 Troponin I High Sens 8 B-Natriuretic Peptide 50.3 Total Protein 7.4 Albumin 3.9 Globulin 3.5 Albumin/Globulin Ratio 1.1 Radiography Chest X-Ray - ED: 1 View, Read by ED Physician, Read by Radiologist, Heart, Lungs, Mediastinum, Bony Structures, No Acute Disease and Chronic Changes Diagnostic Testing: Clinical Impression(s) from Imaging Studies Chest X-Ray 06/11/23 10:12 IMPRESSION: No acute cardiopulmonary process identified. Electronically Signed: Anushka Butts MD at 10:54 EST , Chest x-ray portable, single view interpreted by myself and the radiologist shows no acute abnormality. Normal cardiac silhouette. Normal lung parker. No effusions. No pulmonary edema. There is a loop recorder. Rhythm Strip Rhythm Strip: Sinus Rhythm Rate: 78 Ectopy: None EKG Initial EKG: Attestation: I personally reviewed and interpreted this EKG as follows: Interpretation: Sinus Rhythm and No Acute Injury Pattern Comments: . Normal sinus rhythm rate of 73 no acute signs of IN or ischemia. Discharge Plan Triage Chief Complaint: Edema ED Provider: Jono Casanova Dx/Rx/DC Orders Clinical Impression: History of COPD, History of chronic hypertension, Mild peripheral edema Instructions: ED Peripheral Edema, Bilateral Prescriptions: No Action aspirin 81 mg Tablet,Chewable 81 mg PO BREAKFAST Qty: 0 0RF clopidogrel 75 mg Tablet 75 mg PO DAILY Qty: 30 0RF mirtazapine 15 mg tablet 7.5 mg PO DAILY Patient Comments: TAKE 1/2 TO 1 (ONE-HALF TO ONE) TABLET BY MOUTH AT BEDTIME pantoprazole 40 mg tablet,delayed release (DR/EC) 40 mg PO DAILY pramipexole 1.5 mg tablet 1.5 mg PO DAILY Patient Comments: TAKE 1 TABLET 2 TO 3 HOURS BEFORE BEDTIME FOR RESTLESS LEGS valsartan-hydrochlorothiazide 320-25 mg tablet 1 tab PO DAILY memantine 10 mg tablet 10 mg PO DAILY potassium chloride 20 mEq tablet,ER particles/crystals 20 meq PO BID trazodone 50 mg tablet 50 mg PO QHS atorvastatin 40 mg tablet 40 mg PO QHS chlorpheniramine maleate [Allergy (chlorpheniramine)] 4 mg tablet 4 mg PO QHS amlodipine 5 mg tablet 5 mg PO DAILY Primary Care Provider: Vikram Segura Referrals: Vikram Segura MD [Primary Care Provider] - As soon as possible Activity Restrictions/Additional Instructions: You have very mild edema or swelling in your lower legs. This could be from vascular insufficiency to do with the return of the blood flow which could be corrected with compressive stockings. Your kidney function is good. Your labs, chest x-ray and EKG look good. If this gets worse Dr. Segura could get an echocardiogram to ensure that your heart is pumping normally. At this time I am not can start her on any medications. Elevate your legs throughout the day to help decrease the swelling. Disposition Disposition: Home, Self Care
[2023-06-11 10:34] LABS: Absolute Lymphocyte Count 0.72 X10^3/uL (0.83-4.51); Absolute Neutrophil Count 4.8 X10^3/uL (2.0-7.7); Basophil# 0.06 X10^3/uL; Basophil% 0.9 % (0-1); Eosinophil# 0.09 X10^3/uL; Eosinophils% 1.4 % (0-5); Hematocrit 38.4 % (37-47); Hemoglobin 12.4 g/dL (12.0-15.0); Lymphocyte # 0.72 X10^3/ul (0.83-4.51); Lymphocyte % 11.1 % (19-41); Mean Corp Hgb Conc 32.3 g/dL (32-36); Mean Corpuscular Hgb 28.2 pg (27.0-32.0); Mean Corpuscular Volume 87.5 fL (81-99); Mean Platelet Vol. 9.2 fl (6.2-12.0); Monocyte# 0.75 X10^3/uL; Monocyte% 11.6 % (0-10); NRBC Flagged by Analyzer 0 % (0-5); Neutrophil # 4.83 X10^3/uL (2.7-7.7); Neutrophil % 74.5 % (47-70); Platelet Count 252 K/mm3 (150-450); RBC Distribution Width CV 14.9 % (11.6-14.6); RBC Distribution Width SD 47.8 fl (35.1-43.9); Red Blood Count 4.39 M/mm3 (4.2-5.4); White Blood Count 6.5 K/mm3 (4.4-11.0)
[2023-06-11 10:48] LABS: BNP,B-Type NATRIURETIC PEPTIDE 50.3 pg/mL (0-100)
[2023-06-11 10:52] LABS: ALB/GLOB Ratio 1.1 RATIO (0.9-2.4); AST(SGOT) 25 U/L (15-37); Alanine Aminotransfer ALT/SGPT 20 U/L (13-56); Albumin, Serum 3.9 g/dL (3.2-5.0); Alkaline Phosphatase 93 U/L (45-117); Anion Gap 6 (5-15); BUN 12 mg/dL (7-18); BUN/Creat Ratio 15.7 RATIO (10-20); Calcium,Total 9.6 mg/dL (8.5-10.1); Chloride 106 mmol/L (98-107); Creatinine, Serum 0.76 mg/dL (0.55-1.02); EST Glomerular Filtration Rate 77 mL/min (>60); Est Glom Filt Rate - Afr Amer 93 mL/min (>60); Globulin 3.5 g/dL (2.2-4.2); Glucose 105 mg/dL (74-106); Potassium 3.9 mmol/L (3.5-5.1); Protein, Total 7.4 g/dL (6.4-8.2); Sodium Level 136 mmol/L (136-145); Troponin-I HS 8 pg/mL (3.0-54.0)
[2023-06-11 11:01] VITALS: BP 150/71
--- OUTSIDE RECORDS SUMMARY | 2023-06-11 11:08 | XMS RPT_ITS | CCD ---
Author Name Unknown Address [address] [place] [address] Organization [facility] Care Team Providers Care Ict Programmer Name Role Phone Micky Chavarria Unavailable Unavailable *SELF, REFERRED Unavailable Unavailable Natalia Gaines Unavailable Unava ilable Mak, Deya German Unavailable Unavailable Micky Chavarria Unavailable Unavailable Natalia Gaines Unavailable Unava ilable Jose Segura MD Primary Care Provider [phone] FRANKLIN COBB Attending Unavailable JOSE SEGURA Referring Unavailable JOSE SEGURA Primary Care Unavailable FRANKLIN COBB Attending Unavailable JOSE SEGURA Referring Unavailable JOSE SEGURA Primary Care Unavailable Jose Segura MD Primary Care Provider JORDANA DEVINE Attending Unavailable JOSE SEGURA Primary Care Unavailable Allergies Allergy Classification Reported Allergen(s) Allergy Type Date of Onset Reaction(s) Facility (5 sources) Sulfonamides (Antibiotic); Translations: [SULFA (SULFONAMIDE ANTIBIOTICS)] Drug Intolerance 5 Rash [facility] Medications Completed/Discontinued Medications Medication Drug Class(es) Dates Sig (Normalized) Sig (Original) acetaminophen 325 mg / HYDROcodone bitartrate 10 mg oral tablet (3 sources) Opioid Agonist take 1 tablet by rufus th every six hours as needed HYDROcodone-Acetami nophen (NORCO) 10-325 mg per tablet Take 1 tablet by mouth every 6 hours as needed. 0 Active Problems Problem Classification Problem Date Documented Da te Episodic/Chronic Acute cerebrovascular disease (4 sources) Cerebral infarction; Translations: [Cerebral infarction, unspecified] Onset: 06-30-2022 Chronic Residual codes; unclassified (1 source) Unresponsive ; Translations: [Transient alteration of awareness] 10-29-2022 Episodic Residual codes; unclassified (1 source) Transient alteration of awareness; Translations: [Unresponsive episode] Onset: 10-28-2022 Episodic Syncope (2 sources) Syncope; Translations: [Syncope and collapse] Onset: 10-28-2022 10-29-2022 Episodic Thyroid disorders (3 sources) Thyroid nodule; Translations: [Nontoxic single thyroid nodule] Onset: 02-17-2016 02-17-2016 Chronic Transient cerebral ischemia (2 sources) Transient cerebral ischemia; Translations: [Transient cerebral ischemic attack, unspecified] Onset: 10-28-2022 10-29-2022 Chronic Results Test Name Value Interpretation Reference Range Facil ity Vital Signs Date Time Vital Sign Value Performing Clinician Mariusz lity 10-28-2022 15:29-0400 Body weight 56.52 kg Jordana Devine APRN.[place] Work Phone: [facility] 10-28-2022 15:29-0400 Diastolic blood pressure 73 mm[Hg] Jordana Devine FOOD SPECIALIST.WHARF OPERATOR Work Phone: [facility] 10-28-2022 15:29-0400 Heart rate 67 /min Jordana Devine FOOD SPECIALIST.WHARF OPERATOR Work Phone: [facility] 10-28-2022 15:29-0400 Respiratory rate 16 /min Jordana Devine FOOD SPECIALIST.[place] Work Phone: [facility] 10-28-2022 15:29-0400 SaO2% (BldA) [Mass fraction] 96 % Jordana Devine FOOD SPECIALIST.WHARF OPERATOR Work Phone: [facility] 10-28-2022 15:29-0400 Systolic blood pressure 132 mm[Hg] Jordana Devine FOOD SPECIALIST.[place] Work Phone: [facility] Encounters Encounter Date Encounter Type Care Provider Facility Start: 11-17-2022 Telephone encounter Jordana Asencio APRN.[place] Work Phone: Neurology Plan of Treatment Date Care Activity Detail Author Start: 12-17-2022 Influenza vaccination INFLUENZA (#1) [facility] Start: 05-06-2022 COVID-19 VACCINE (6 - Moderna series) COVID-19 VACCINE (6 - Moderna series) [facility] Start: 04-18-2022 ADVANCE DIRECTIVE DISCUSSION ADVANCE DIRECTIVE DISCUSSION [facility] Start: 04-18-2022 DEPRESSION ASSESSMENT DEPRESSION ASSESSMENT [facility] Start: 2005 BONE DENSITY BONE DENSITY [facility] Start: 2005 PNEUMOCOCCAL: 65+ (1 - PCV) PNEUMOCOCCAL: 65+ (1 - PCV) [facility] Start: 1990 SHINGRIX VACCINE (1 of 2) SHINGRIX VACCINE (1 of 2) [facility] Start: 1985 DIABETES SCREEN DIABETES SCREEN [facility] Start: 1959 Urine microalbumin profile DTAP,TDAP,TD (1 - Tdap) [facility] Cardiovascular funct ion eval w/tilt table w/mntr TILT TABLE EVALUATION Cardiology Routine Syncope, unspecified syncope type Ordered: 10/28/2022 [facility] Work Phone: Payers Date Payer Category Payer Medicare [employer] MEDICARE HU[employer] MEDICARE PPO [id number] 2022-Present [phone] [address] [address] [place] [address] PPO [id number] 2022 Medicare [id number] Medicare [id number] Social History Date Type Detail Facility Start: 11-14-2014 End: 10-28-2022 Tobacco smoking status NHIS Ex-smoker [facility] End: 11-14-1994 History of tobacco use Current smoker [facility] End: 11-14-1994 History of tobacco use Cigarette Smoker [facility] Start: 11-14-2014 End: 10-28-2022 Cigarettes smoked current (pack per day) - Reported 1 [facility] Start: 02-17-2016 End: 10-28-2022 Alcohol intake Current drinker of alcohol (finding) [facility] Start: 1940 Sex Assigned At Not on file [facility] Start: 10-28-2022 Tobacco use panel [facility] National Score (1-10 0), lower number is lower risk 72 [facility] Note 11-17-2022 Telephone Encounter - Marii Hassan LPN - 11/17/2022 1:56 PM EDTTelephone Encounter - Jordana Devine APRN.WHARF OPERATOR - 11/17/2022 12:56 PM EDT Note Date & Type Note Facility 11-17-2022 Miscellaneous Notes Formattin g of this note might be different from the original. TC to pt who is okay with cancelling tilt table. TC to [facility] to cancel test. Marii Hassan LPN Ok to cancel tilt table testing. Xavier at Dr. Sidhu's office returning call to give Neurology an update. States she spoke with Dr. Sidhu and he said patient may continue with tilt table test if Neurology wishes to have it completed, however he does not feel it is necessary . Reports Dr. Sidhu is aware that patient has orthostatic hypotension. States patient did have a Loop recorder implanted on 11/08 for syncope but may have tilt test completed if Neurology wishes. Also states the tilt table test order is still active and authorized to use. Cande Reyes RN TC to accounts payable manager Dr. Sidhu. Spoke with clinical staff who states she will look into it. Gave her orthos taken in office over phone and she will give us a call back if pt needs to continue with test or if she can cancel it. Marii Hassan LPN If her accounts payable manager does not feel tilt table is recommended it can be cancelled. Please ensure patient discussed orthostatic results that were obtained in the office with her accounts payable manager prior to cancelling. Want to make sure he is aware of drop in BP. Test has not been canceled. Did not speak with physician. Patient was informed that cardiology does not feel is necessary. No additional information was given. No further explanation. 11/08 loop monitor was applied, nothing mentioned at that time regarding TTT Scheduled 9am tomorrow Routing to provider for review Patient was scheduled for a Tilt Test Tomorrow at [place], however she received a call today stating that her Pa[facility]r Substandard Doctor told them that she does not need the test and it should be canceled. She does not know if she should move forward with the test now or not since it was a different Provider cancelling it. Please call patient at [phone] to advise. Thank you! documented in this encounter [facility] Progress note 10-28-2022 Note Date & Type Note Facility 10-28-2022 Note HNO ID: [id number] Author: Jordana Devine APRN.[place] Service: ? Author Type: Nurse Practitioner Type: Progress Notes Filed: 11/01/2022 10:01 AM Note Text: [facility] [place] New Patient Visit New Patient Consultation October 28, 2022 HPI: Ms. Ramirez presents today accompanied by her secondary to issues of stroke/TIA. She states that in May she went to the hospital. Was told she had a stroke. Was told she also had an old stroke. States she knows when the old stroke occurred; one time she went to sign her name in the past and it wasn't easy. When asked what symptoms prompted her to present to the ED in May she states her daughter told her that she was slurring her words. Was taken to the ED where testing was completed and she was admitted for two days. Per ED note on 06/13/22: 82-year-old female past medical history of Alzheimer's dementia, early-stage diagnosed for a few years, presents with mental status change and slurred speech. She has had problems with insomnia, and it was reported by her daughter that the patient's eldest daughter gave her an edible THC 2 days ago to help her sleep. Patient claims it was only a quarter of an edible, but the daughter that is present is unsure how many she had actually taken. She woke up yesterday with slurred speech, drooling, and confusion. While it was reported that the patient always has baseline slurred speech, yesterday she was very slow to respond. Patient has not slept well for quite some time. Daughter states that patient texted her this afternoon about an hour ago stating that something was not right, and that she felt Whirly in the head. Her states that she has had a cough for years, but over the last few months it has become more productive. Patient denies any fevers or chills. No dysuria or hematuria. She somewhat sarcastically states that she is here because she is confused . On further discussion she reports multiple additional ED visits since initial event. On review of chart, appears pt also presented to ED on 10/13 and again on 10/16. Notes are limited as pt was seen at [facility]. Per ED note on 10/13/22: Chief Complaint: Stroke Alert Informant: patient, spouse/S.O. and EMS Narrative Narrative: Patient is a 2-year-old female with past medical history of recurrent TIAs previous CVA hypertension hyperlipidemia currently on aspirin and Plavix. Patient and EMS report that the patient's went out for a walk and after coming home and using the restroom came out to find the patient with worsening slurred speech left arm weakness and drooling. Based on her history of previous TIA and stroke he was concern for this once again so EMS was called. EMS confirms and they arrived patient was awake and alert but drooling with slurred speech and left arm weakness but they state fell to her side without much resistance against gravity. They reported her sugar was normal and based on concern for an acute stroke transported to the hospital for evaluation. They state onset of symptoms roughly 30 minutes prior to arrival. EMS states that upon reaching the ER patient symptoms have already spontaneously improved Per ED note on 10/16/22: HPI History of Present Illness Chief Complaint: Mental Status Change Patient had another one of her episodes tonight. She had 1 of these last night. She had one on Tuesday. I have seen her for 1. She has had multiple others. They usually occur in the evening. She gets very weak lightheaded and decreased responsive. It seems like her breathing is shallow. Her states that it took 15 minutes for her to go down the steps with his help. She does not actually pass out. I do not get any focal deficit. They deny any specific weakness. Her speech gets a little bit slurred but she states it that way all the time and her speech is similar to when I saw her last time. She states she had the Zoom evaluation by the neurologist on last visit. They stated that if this is a TIA she is already on all of the medicines. She is allergic to statins but she is on dual antiplatelet therapy. She also has sleep apnea. She only sleeps a couple hours at night and she gets very tired at night. She cannot use a mask because it just does not work well with her. Instead she uses oxygen sometimes at night. But she never has dyspnea during the day. If she is up walking and moving around she is not ever short of breath. That only occurs at night if she tries to sleep. She has had no fevers or chills. It seems like she and the family agrees that she is back to normal now. The family is also very upset because she does not listen to them. She acts like she knows everything. She will not allow them to go to doctors visits with her so they do not know what is going on medically. She had evidently refused admission last time. Her daughter states that she did and the patient st (more content not included)... [facility] Instructions 10-28-2022 Patient Instructions Note Date & Type Note Facility 10-28-2022 Instructions Jordana Devine APRN.[place] - 10/28/2022 4:32 PM EDT Orthostatic VS: Laying 155/72, HR 57 Sitting 161/72, HR 59 Standing 113/72, HR 68 and 122/72, HR 70 documented in this encounter [facility] History of Present illness Narrative 10-28-2022 Jordana Devine APRN.[facility] - 10/28/2022 3:30 PM EDT Note Date & Type Note Facility 10-28-2022 History of Presen t illness Narrative [facility] New Patient Visit New Patient Consultation October 28, 2022 HPI: Ms. Ramirez presents today accompanied by her secondary to issues of stroke/TIA. She states that in May she went to the hospital. Was told she had a stroke. Was told she also had an old stroke. States she knows when the old stroke occurred; one time she went to sign her name in the past and it wasn't easy. When asked what symptoms prompted her to present to the ED in May she states her daughter told her that she was slurring her words. Was taken to the ED where testing was completed and she was admitted for two days. Per ED note on 06/13/22: 82-year-old female past medical history of Alzheimer's dementia, early-stage diagnosed for a few years, presents with mental status change and slurred speech. She has had problems with insomnia, and it was reported by her daughter that the patient's eldest daughter gave her an edible THC 2 days ago to help her sleep. Patient claims it was only a quarter of an edible, but the daughter that is present is unsure how many she had actually taken. She woke up yesterday with slurred speech, drooling, and confusion. While it was reported that the patient always has baseline slurred speech, yesterday she was very slow to respond. Patient has not slept well for quite some time. Daughter states that patient texted her this afternoon about an hour ago stating that something was not right, and that she felt Whirly in the head. Her states that she has had a cough for years, but over the last few months it has become more productive. Patient denies any fevers or chills. No dysuria or hematuria. She somewhat sarcastically states that she is here because she is confused . On further discussion she reports multiple additional ED visits since initial event. On review of chart, appears pt also presented to ED on 10/13 and again on 10/16. Notes are limited as pt was seen at [facility]. Per ED note on 10/13/22: Chief Complaint: Stroke Alert Informant: patient, spouse/S.O. and EMS Narrative Narrative: Patient is a 2-year-old female with past medical history of recurrent TIAs previous CVA hypertension hyperlipidemia currently on aspirin and Plavix. Patient and EMS report that the patient's went out for a walk and after coming home and using the restroom came out to find the patient with worsening slurred speech left arm weakness and drooling. Based on her history of previous TIA and stroke he was concern for this once again so EMS was called. EMS confirms and they arrived patient was awake and alert but drooling with slurred speech and left arm weakness but they state fell to her side without much resistance against gravity. They reported her sugar was normal and based on concern for an acute stroke transported to the hospital for evaluation. They state onset of symptoms roughly 30 minutes prior to arrival. EMS states that upon reaching the ER patient symptoms have already spontaneously improved Per ED note on 10/16/22: HPI History of Present Illness Chief Complaint: Mental Status Change Patient had another one of her episodes tonight. She had 1 of these last night. She had one on Tuesday. I have seen her for 1. She has had multiple others. They usually occur in the evening. She gets very weak lightheaded and decreased responsive. It seems like her breathing is shallow. Her states that it took 15 minutes for her to go down the steps with his help. She does not actually pass out. I do not get any focal deficit. They deny any specific weakness. Her speech gets a little bit slurred but she states it that way all the time and her speech is similar to when I saw her last time. She states she had the Zoom evaluation by the neurologist on last visit. They stated that if this is a TIA she is already on all of the medicines. She is allergic to statins but she is on dual antiplatelet therapy. She also has sleep apnea. She only sleeps a couple hours at night and she gets very tired at night. She cannot use a mask because it just does not work well with her. Instead she uses oxygen sometimes at night. But she never has dyspnea during the day. If she is up walking and moving around she is not ever short of breath. That only occurs at night if she tries to sleep. She has had no fevers or chills. It seems like she and the family agrees that she is back to normal now. The family is also very upset because she does not listen to them. She acts like she knows everything. She will not allow them to go to doctors visits with her so they do not know what is going on medically. She had evidently refused admission last time. Her daughter states that she did and the patient states that she did but the states that that is not true. Per the patient and her . More recently in the hospital and had an EEG. Was taken back in for slurred speech. Hospitalist and ED physician had seen her before and were familiar with her case. Wanted to do additional testing because they determined it was not a stroke. On review of the chart she had an unresponsive episode. Seems to have increased slurred speech during episodes. No facial droop. Possible left arm weakness one time (the pt and her argue this point as she is uncertain she had weakness). Episodes resolve in 15-30 minutes. Denies associated lightheadeness, dizziness. States she just felt really tired. Did lose her balance in the past. States balance is off every day and now using a cane. Has checked BP during episodes and was 160 systolic. On further review of her discharge summary, HPI reports presents to the [facility] ED on 10/17/2022 with history of similar episode on evening prior to day of presentation as to the day prior with onset of weakness, lightheadedness, slurred speech prompting ED return. Has had two maybe three unresponsive episodes (again, pt and her argue this point and per ED note she has had multiple episodes). No tongue/cheek bite, loss of b/b. Can still answer questions during episodes. Occasional LLE weakness. Denies vision changes; blurred or double. Will be seeing Dr. Sidhu next week. Will be getting a loop recorder on Tuesday. No known history of afib. Denies chest pain. Hx of insomnia. States the hospital felt these episodes might be related to sleep concerns. Hx of ZONIA but cannot wear CPAP. Was then started on oxygen but not wearing that either. Only 60% of L lung working. Over a year since last sleep study. Done through Dr. Ken's office. States she can function on 3-5 hours of sleep. States events have only occurred when sitting down and watching a show. Currently going to speech therapy for slurred speech. Hx of breast cancer; did have chemotherapy. No n/t. No hx of DM. Hx of hld. Does not take Tramadol. No seizure hx. 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 Alcohol: One glass nightly Tobacco: Quit 25 years ago Drug: Denies PAST MEDICAL HISTORY Diagnosis Date Ductal carcinoma in situ (DCIS) of right breast Hypertension Hypothyroidism Snoring PAST SURGICAL HISTORY Procedure Laterality Date BREAST LUMPECTOMY HX right breast COLONOSCOP W/ OR W/O [facility] SPEC 11/14/14 Colonoscopy HYSTERECTOMY HX age 43 MASTOIDECTOMY age 3 THYROIDECTOMY 1963 04/19 removed Current Outpatient Medications on File Prior to Visit Medication Sig indapamide (LOZOL) 1.25 mg tablet Take 1.25 mg by mouth once daily. traMADol (ULTRAM) 50 mg tablet Take 50 mg by mouth as needed. gabapentin (NEURONTIN) 300 mg capsule Take 600 mg by mouth as needed. cyanocobalamin, vitamin B-12, 2,500 mcg chew Take 1 tablet by mouth once daily. losartan (COZAAR) 50 mg tablet Take 50 mg by mouth once daily. Levothyroxine 25 mcg cap Take 0.5 tablets by mouth once daily. liothyronine (CYTOMEL) 5 mcg tablet Take 10 mcg by mouth once daily. escitalopram oxalate (LEXAPRO) 5 mg tablet Take 5 mg by mouth once daily. Magnesium 200 mg tab Take 400 mg by mouth once daily. potassium gluconate 500 mg (83 mg) tab Take 1 tablet by mouth once daily. Multivitamin capsule Take 1 capsule by mouth once daily. HYDROcodone-Acetaminophen (NORCO) 10-325 mg per tablet Take 1 tablet by mouth every 6 hours as needed. Gelatin 600 mg cap Take 2 capsules by mouth twice daily. takes 2-4 tablets per day No current facility-administered medications on file prior to visit. Social History Tobacco Use Smoking status: Former Packs/day: 1.00 Types: Cigarettes Quit date: 11/14/1994 Years since quittin.9 Substance Use Topics Alcohol use: Yes Alcohol/week: 1.0 standard drink Types: 1 Glasses of wine per week Drug use: No ALLERGIES Allergen Reactions Sulfa (Sulfonamide * Rash Review of Systems: See HPI. Physical Exam: 10/28/22 1529 BP: 132/73 Pulse: 67 Resp: 16 SpO2: 96% Weight: 56.5 kg (124 lb 9.6 oz) Orthostatic VS: Laying 155/72, HR 57 Sitting 161/72, HR 59 Standing 113/72, HR 68 and 122/72, HR 70 Patient is alert and in no distress. Dress is appropriate. Mood is appropriate Breathing appears regular and unstressed Neurologic examination: Cognitively intact. No deficits. No formal MOCA performed. Speech slurred. CN: Pupils equal and reactive to light, extraocular movements intact with no nystagmus, mild L facial weakness; upper and lower, facial sensation intact bilaterally to light touch. V1-3, hearing decreased on L, symmetric evaluation of the soft palate, tongue is midline with no deviation, shoulder shrug is symmetric. Motor exam shows 5/5 strength symmetric through the upper and lower extremities in all groups tested. Sensory intact to light touch and temperature in all extremities. Vibratory sensation is intact and symmetric all extremities. Deep tendon reflexes are brisk and symmetric at the biceps, brachioradialis, triceps, patella, and achilles bilaterally. Coordination: No dysmetria on finger to nose. No tremors noted. No drift seen. Gait normal in stance and pattern. Unstable upon standing. Labs/studies: EEG 10/18/22: This is a normal awake and drowsy EEG. No focal or epileptiform activity is present. EEG 10/17/22: Normal awake and drowsy EEG study. No epileptiform discharges, seizure patterns, or lateralizing signs. MRI Brain 10/17/22: BRAIN AND EXTRA-AXIAL SPACES: T2 FLAIR hyperintensity foci in the white matter of both cerebral hemispheres are chronic white matter ischemic changes. They were present previously. Old remote cortical-based ischemic infarct with cystic encephalomalacia and atrophy in the right supramarginal gyrus. Following IV contrast administration, there are no abnormal enhancing lesions intra-axially and extra-axially. No intra- or extra-axial hemorrhage. No intracranial mass or mass effect. Posterior fossa structures are unremarkable. No hydrocephalus. Basal cisterns are patent. No diffusion restriction to suspect acute or subacute ischemic infarct. SELLA: Unremarkable. Normal sella turcica, pituitary gland, infundibular stalk, optic chiasm and hypothalamus. AUDITORY SYSTEM: Unremarkable. The internal auditory canals are patent. BONES/JOINTS: Unremarkable. No discrete lytic or blastic abnormalities. SINUSES: Unremarkable as visualized. Clear. MASTOID AIR CELLS: Unremarkable as visualized. Clear. ORBITS: Unremarkable as visualized. Both globes, extraocular muscles, optic nerves and retrobulbar fat appear unremarkable. VASCULATURE: Unremarkable as visualized. Normal flow voids in the major intracranial circulation. MRI/Brain W/WO Contrast IMPRESSION: 1. No MRI evidence of acute or subacute ischemic infarct or acute intracranial abnormality. 2. No abnormal enhancing lesions intra-axially and extra-axially. 3. 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 4. Multiple chronic white matter ischemic changes in both cerebral hemispheres are unchanged. CTA Head/Neck 10/13/22: EXAMINATION: CT HEAD AND NECK WITH CONTRAST - CTA Head and Neck W/ Contrast Injection (and W/O Contrast Images if performed) TECHNIQUE: Noncontrast axial images were obtained of the brain. Subsequently, routine carotid CT angiogram protocol was performed with IV contrast. In addition, images were obtained of the [place]. Sagittal and coronal reconstructed images and 3D reconstructions were reviewed. Individualized dose optimization techniques were used for this CT. IV contrast dosage and agent: 100 mL of Isovue-370. COMPARISON: 06/13/2022 CTA. FINDINGS: --CTA HEAD: No evidence of arterial flow limiting stenosis. No evidence of large vessel occlusion. 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 [place] anatomy is unremarkable. --CTA NECK: AORTIC ARCH AND BRANCHES: No significant stenosis of the visualized portions. RIGHT CCA: After sclerotic plaques of the carotid bulb with less than 50% stenosis. No dissection. RIGHT ICA: No significant stenosis. No dissection. LEFT CCA: Atherosclerotic plaques in the carotid bulb with less than 50% stenosis. No dissection. LEFT ICA: No significant stenosis. No dissection. RIGHT VERTEBRAL ARTERY: No significant stenosis. No dissection. LEFT VERTEBRAL ARTERY: No significant stenosis. No dissection. NECK SOFT TISSUES: Numerous thyroid nodules with the largest measuring 1.7 cm in the right lobe. Centrilobular emphysematous changes of the lungs. ____ CT/STROKE CTA Head AND Neck W/Con IMPRESSION: 1. No evidence of intracranial arterial flow limiting stenosis or large vessel occlusion. 2. 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 3. No evidence of flow-limiting stenosis or dissection of the bilateral carotid or vertebral arteries. 4. Numerous thyroid nodules with the largest measuring 1.7 cm. Recommend follow-up with nonemergent thyroid ultrasound if this has not already been performed. 5. Centrilobular emphysematous changes of the lungs. MRI Brain 06/14/22: FINDINGS: A small to moderate size acute infarct is present in the mid aspect of the right parietal lobe extending to the periventricular white matter. A cluster of multiple small acute infarcts are also present in the middle one third aspect of the right temporal lobe directly beneath the larger infarct. There is mild cerebral atrophy with widening of the extra-axial spaces and ventricular dilatation. There are multiple white matter hyperintensities, distributed throughout the deep white matter tracts of the cerebral hemispheres, consistent with moderate chronic white matter ischemic changes. Redemonstration of several punctate foci of hemosiderin staining in the bilateral cerebral hemispheres consistent with chronic sequela. There is no evidence of acute intracranial hemorrhage. Normal bilateral basal ganglia. Normal thalami. There is no extra-axial fluid accumulation. Normal flow voids within the major intracranial circulation suggesting patency by spin echo criteria. Normal sella turcica, pituitary gland, infundibular stalk, optic chiasm and hypothalamus. Normal tectal plate and pineal gland. Normal midbrain, gume and medulla. Normal cerebellum. Normal basal cisterns. Normal bilateral temporal bones. Normal bilateral internal auditory canals. No demonstrated orbital abnormality, within the constraints of a routine brain study. Normal visualized paranasal sinuses. Normal calvarium and skull base. Normal visualized soft tissue structures. Normal visualized upper cervical spine. IMPRESSION: 1. A small to moderate size acute infarct is present in the mid aspect of the right parietal lobe extending to the periventricular white matter. A cluster of multiple small acute infarcts are also present in the middle one third aspect of the right temporal lobe directly beneath the larger infarct. 2. These infarcts appear unchanged from the head CT dated June 13, 2022 Echo 06/13/22: Interpretation Summary Normal LV size. Left ventricular systolic function is normal. The estimated ejection fraction is 60 %. Bubble contrast study negative for right to left interatrial shunt. Structurally normal valves. CTA Brain/Neck 06/13/22: FINDINGS: --CT BRAIN: Redemonstrated acute right parietal infarct. Microvascular ischemic changes. Mild ventriculomegaly commensurate with the degree of sulcal atrophy. --CTA NECK: AORTIC ARCH AND BRANCHES: Normal anatomy, patent. RIGHT CCA: No occlusion, significant stenosis or dissection. Atherosclerotic calcification of the carotid bulb without stenosis. RIGHT ICA: No occlusion, significant stenosis or dissection. LEFT CCA: No occlusion, significant stenosis or dissection. Atherosclerotic calcification of the carotid bulb without stenosis. LEFT ICA: No occlusion, significant stenosis or dissection. RIGHT VERTEBRAL ARTERY: No occlusion, significant stenosis or dissection. LEFT VERTEBRAL ARTERY: No occlusion, significant stenosis or dissection. NECK SOFT TISSUES: Multiple thyroid nodules. Mild centrilobular emphysema in the lung apices. --CTA HEAD: --Anterior circulation: ICAs: No significant stenosis at the intracranial/visualized segments. Atherosclerotic calcification of the cavernous ICAs without stenosis. ACAs: No significant stenosis at the visualized segments. ACOM: Present. MCAs: No significant stenosis at the visualized segments. --Posterior circulation: PCOMs: Present. 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 Bilateral origin of the posterior cerebral arteries with absent P1 segments. distribution center assistant: No significant stenosis at the visualized segments. BASILAR ARTERY: No significant stenosis. VERTEBRAL ARTERIES: No significant stenosis at the intradural/visualized segments. No evidence of intracranial aneurysm or vascular malformation. IMPRESSION: Acute right parietal infarct. 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 Multiple thyroid nodules. Assessment/Plan: I63.9 Cerebrovascular accident (CVA), unspecified mechanism (HCC) (primary encounter diagnosis) R55 Syncope, unspecified syncope type R40.4 Unresponsive episode G45.9 TIA (transient ischemic attack) Comment: Pt presenting today for stroke/TIA and unresponsive episodes. History is somewhat unclear per pt report, however, after extensive review of outside hospital ED evaluations (three since 05/2022), appears that initial event was in 06/10 at which time she was positive for multiple acute infarcts including a moderate infarct to R parietal lobe and many small acute infarcts in the R temporal lobe. CTA brain and neck and echocardiogram completed during admission, she was discharged home on ASA 81, Plavix, and atorvastatin. She had outpatient cardiac monitoring which was unremarkable. Since that time she has had multiple ED admissions for worsening of slurred speech, drooling, possible L arm weakness, and per ED report, lightheadedness. She denies associated weakness or lightheadedness with the events and her reports she is able to respond to verbal stimuli and she reports that she is aware of what is going on around her. Additional work-up completed during multiple admissions including repeat MRI brain, repeat CTA head/neck, EEG x2 all unremarkable. She was seen by telestroke neurology, however, no notes available at time of appointment today. She has since been seen by cardiology and will have a loop recorder placed this upcoming Tuesday. At this time, etiology of events remains uncertain. If episodes are in fact recurrent TIA's, would continue current preventative measures including ASA, Plavix, and statin. Pending Loop Recorder results, may need to consider initiation of OAC. However, description of episodes varies and uncertain if these episodes are accompanied by focal neuro deficit lending concern for alternative dx. Alternative consideration would include possible seizure, however, patient is able to respond during episodes, does not lose control of B/B, no tongue/cheek bite. Additionally, EEG x2 unremarkable. However, if suspicion remains for seizure activity, may consider consult to epilepsy for possible EMU admission. Given description of events as well as possibility of associated lightheadedness, orthostatic VS were obtained in office today. Pressure notable for drop from 161/72 while sitting to 113/72 while standing. She does become off balance and seemingly symptomatic while standing throughout appointment. On further discussion she did report history of balance concerns since the beginning of this year and question if these findings may be a contributing factor. Will further evaluate with tilt table test and have asked her to follow-up with her accounts payable manager on Tuesday regarding these readings. In the interim, recommend treating with conservative measures including compression stockings, increased fluid intake, decreased caffeine and EtOH intake, adequate nutrition, and slow position changes. Pt and her report that there was some question whether history of sleep apnea is contributing to events as later she reports these events only happen in the evening while she is sitting. She does not currently use a PAP. Although untreated sleep apnea could potentially contribute to altered awareness, uncertain to what extent this would effect sx she is having. Nevertheless, as untreated ZONIA is a risk factor for stroke/TIA would recommend continued follow up and treatment. For stroke prevention would recommend continuing ASA, Plavix, and statin. Goal BP <140/90 and BS <140. Recommend LDL <70 for stroke prevention. Continue to get adequate exercise/physical activity within limitations. She will follow up in four weeks or sooner if new or changing sx occur. Office Visit on 10/28/22 TILT TABLE EVALUATION Jordana Devine APRN.ADRIAN I spent a total of 80 minutes on the date of the service which included preparing to see the patient, [id number] patient care, completing clinical documentation, obtaining and/or reviewing separately obtained history, performing a medically appropriate examination, counseling and educating the patient/family/caregiver, and ordering medications, tests, or procedures. Portions of this note were created with electronic dictation and errors in spelling, syntax, and meaning may have occurred. documented in this encounter [facility] Progress note 07-07-2022 Note Date & Type Note Facility 07-07-2022 Note HNO ID: [id number] Author: Franklin Cobb OT/L Service: ? Author Type: Occupational Therapist Type: Progress Notes Filed: 07/13/2022 7:51 AM Note Text: Episode Visit Count: 2 Start of Care Date: 06/30/22 REHABILITATION AND SPORTS THERAPY OCCUPATIONAL THERAPY ON-ROAD DRIVING ASSESSMENT SUBJECTIVE: Xavier indicated that she is hoping all goes well with this assessment as she is looking forward to returning to driving. She had no complaints this date. She also said that she completed the sleep study and is going to be getting O2 for sleeping in the very near future based on her test results. Xavier had also indicated during clinical assessment that she is participating in research study at [facility] related to memory loss while she is uncertain as to if she is getting the medication or the placebo but is happy to be involved in this type of project. OBJECTIVE MEASURES WITH LEVEL OF FUNCTION: this therapist did meet patient at her home where the drive started and ended while she drove the evaluation vehicle which is a 2011 [facility] ENVIRONMENT: Location: Residential, Urban, Interstate, Rural, Parking Lot, and Multi-joey Road Traffic: Light Weather: Overcast, cold and windy Road Conditions: Dry Mileage driven: 30.8 miles MODIFICATIONS: Steering Device: NA Turn Signal: Standard Hand Controls: NA Mirrors: Standard Cushions: None Other: she uses 2 foot pedal operation method which she has always done PHYSICAL PERFORMANCE: Use of Controls: No Deficits noted Physical Limitations: None OBSERVATION SKILLS: No deficits noted in this area. GAP ACCEPTANCE: No deficits noted in this area JOEY CHANGING/MERGING: No deficits noted in this area LIMIT LINE/STOPPING: No deficits noted in this area. REGULATION OF SPEED: Under Posted Limit > 5 MPH at times while appeared to be driving too slow at times which she indicated she feels is appropriate given the road situation (I.e. going down hills); tendency to ride the brakes in those type of situations PATH OF TRAVEL: No deficits noted in this area SIGNALING: Consistently signaled. PARKING: satisfactory GENERAL AWARENESS: she did well overall while this therapist did observe her to drive slowly at times including riding brakes at times, being slightly distracted by conversation while she frequently initiated this throughout the drive; this therapist was less familiar with the area and asked her to get on the highway which she did but then she was not certain where she was so this therapist had to use the GPS to begin to guide her back towards home which is reason for her to always have her cellphone with her in case this was to happen when she was alone; she did verbalize that she only drives to destinations that she is very familiar with on her own while her is with her for other trips; she does not prefer any longer to drive outside of [facility] while mostly staying in [facility] which this therapist in agreement with TREATMENT: On Road Driving Assessment: completed the functional task portion of this assessment during behind the wheel session ASSESSMENT: Xavier Payton James tolerated today's treatment visit well. She demonstrated functional skills throughout the session. PLAN: No further outpatient OT indicated. SUMMARY AND RECOMMENDATIONS *The information in this report indicates the ability of the local bulk driver to operate a motor vehicle on this date only. Due to the complex nature of the safe operation of a motor vehicle, and considering the demands of integrating changing environmental conditions, and visual, cognitive, and physical skills, successful completion of this program is not a guarantee of safe driving in the future. RECOMMENDATION: BASED ON XAVIER'S OVERALL PERFORMANCE ON THE ASSESSMENT, THIS THERAPIST IS RECOMMENDING THAT SHE IS ABLE TO RETURN TO SAFE OPERATION OF A MOTOR VEHICLE WHILE FOLLOWING THESE RESTRICTIONS: DAYTIME DRIVING ONLY/DO NOT DO NIGHT DRIVING; AVOID DRIVING WHEN LOW LIGHT SITUATIONS INCLUDING EXTREME WEATHER (I.e. fog, snow, moderate to heavy rain, dusk/delaney); LONG DISTANCE DRIVING ONLY IF OTHER LICENSED WIRE TESTER ALONG TO ASSIST; MAINTAIN DRIVING ONLY ON LOCAL/FAMILIAR ROADS/ROUTES WHEN ALONE; ALWAYS HAVE CELLPHONE WITH HER WHEN DRIVING IN THE CASE OF EMERGENCY; DO NOT DRIVE WHEN NOT FEELING WELL; SHOULD CONTINUE TO MONITOR HER OVERALL LEVEL OF FUNCTION INCLUDING WITH DRIVING SKILLS WHILE INFORMATION WILL BE PROVIDED REGARDING DOING THE SAME. Billing: Total Treatment Time Minutes (timed/untimed) 60 minutes Drivers Follow Up per 60 min (18324): 1:1 time 60 min Total time: 60 minutes Franklin Cobb OT/Suzanne, CDRS, CDI Certified Plant Operator Helper Dye Winch Operator Episode Visit Count: 2 Start of Care Date: 06/30/22 REHABILITATION AND SPORTS THERAPY OCCUPATIONAL THERAPY DISCONTINUANCE OF CARE PLAN OF CARE UPDATE: Assessment: Xavier Ramirez is disconti (more content not included)... [facility] Progress note 06-30-2022 Note Date & Type Note Facility 06-30-2022 Note HNO ID: [id number] Author: JEROME Del Castillo Service: ? Author Type: Occupational Therapist Type: Progress Notes Filed: 07/07/2022 4:35 PM Note Text: Episode Visit Count: 1 Therapist That Will Accept/Oversee The Plan Of Care: Verito Cobb Start of Care Date: 06/30/22 Onset Date: 06/15/22 (hospital due to speech issues and was diagnosed with stroke) Patient Identified by Name and Date of : Yes REHABILITATION AND SPORTS THERAPY OCCUPATIONAL THERAPY INSTRUMENTAL ADL AND COMMUNITY MOBILITY EVALUATION SUBJECTIVE: Xavier Ramirez is a 82 year old female seen today for OT functional community mobility assessment due to having had a stroke recently with short hospital stay. She verbalized that her medical doctor would not release her to return to driving until she completed assessment. She was seen by this therapist in the past prior to 2019 after she had sustained a significant fall while performance at that time was favorable so she could return to driving. Her came to the appointment with her and indicated that he is 87 years old and will typically let her drive as he is an insulin dependent diabetic who sometimes has significant swings with his condition so prefers to not drive although he is able to. Her verbalized that there had been one time prior to the stroke when she was going to turn with an oncoming vehicle and he spoke up to keep her from turning which he indicated somewhat concerned him. He is willing to ride with her in the future and monitor her performance if she does well with this evaluation. Functional Limitations: heavy exertion Prior Level of Function: Independent without limitations Home Environment Patient Lives With: Spouse Assistance Available: 24-Hour ( can assist) Home Type: Mobile Home Entry To Home: Stairs, With Rail Number Of Stairs Into Home: 6 Transportation: SUV (has not driven since having the stroke) Patient Goals: to return to providing for own and household transportation needs Intake Information: Prescription present Previous Treatment: Acute Hospital Falls Interview: No positive findings with falls interview Relevant History Past Relevant Medical Conditions: Depression (chronic pain issues) Highest Level of Education: Other: See Comment (some college) Right or Left Handed: Right 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) Recreation / Current Exercise: no formal exercise Hobbies / Interests: writing, time with friends Home Environment Patient Lives With: Spouse Assistance Available: 24-Hour ( can assist) Home Type: Mobile Home Entry To Home: Stairs, With Rail Number Of Stairs Into Home: 6 Transportation: SUV (has not driven since having the stroke) Activities of Daily Living: Independent Instrumental Activities of Daily Living: Independent and some help from her with laundry and cleaning tasks Driving History: 65 years; has 2021 [employer] which is only vehicle State: [place] License/Permit #: [id number] Expires: 06/06/25 Restrictions: corrective lenses 5 Yr. Violation HX: no 5 Yr. MVA HX: no Handicap Parking Placard: YES 1. Xavier Ramirez self report indicates an awareness of: Decreased balance Fatigue, or poor endurance 2. Xavier Ramirez expressed confidence regarding driving when driving alone and locally. 3. Xavier Ramirez expressed concerns regarding driving at night/decreased light conditions, in congested traffic, on the interstate, in unfamiliar places, and on long trips. OBJECTIVE MEASURES WITH LEVEL OF FUNCTION: SENSORIMOTOR ASSESSMENT: Hand dominance: Right Level of Function Relevant to I ADL, Community Mobility, and Driving: Right UE: Sufficient Left UE: Sufficient Overlay Plastician: Sufficient Right LE: Sufficient Left LE: Sufficient Sitting Balance: Sufficient Head / Neck: Sufficient Ambulation: Sufficient while she does prefer to ambulate with walking stick for community distances Transfers: Sufficient Loading of Device: Sufficient ASSESSMENT OF SENSORIMOTOR FUNCTION: Compatible with Driving VISION SCREENING: Vision Vision Deficits: Wears corrective lenses Corrective lenses: glasses about 1 month old as eye appointment then with new lenses Corrective Lenses: Wears glasses / contact lenses for driving Distant Acuity: Binocular: 20 / 20 Nighttime Glare: Right: 20 / 30 Left: 20 / 30-1 Color Perception: pass Depth Perception: Pass Contrast Sensitivity: mildly impaired B Peripheral Vision: Within legal limits for driving Right Eye: Acknowledged all stimuli. Left Eye: Acknowledged all stimuli. Pursuits: WNL Saccades: WNL Convergence: WFL Nystagmus: Not Apparent Diplopia: No complaints Strabismus: No OU Cataracts: No OU Glaucoma: No. OU Other Eye Conditions / Di (more content not included)... [facility] History of Present illness Narrative 06-30-2022 Franklin Cobb, OT/L - 06/30/2022 4:21 PM EDT Note Date & Type Note Facility 06-30-2022 History of Presen t illness Narrative Episode Visit Count: 1 Therapist That Will Accept/Oversee The Plan Of Care: Verito Cobb Start of Care Date: 06/30/22 Onset Date: 06/15/22 (hospital due to speech issues and was diagnosed with stroke) Patient Identified by Name and Date of : Yes REHABILITATION AND SPORTS THERAPY OCCUPATIONAL THERAPY INSTRUMENTAL ADL AND COMMUNITY MOBILITY EVALUATION SUBJECTIVE: Xavier Ramirez is a 82 year old female seen today for OT functional community mobility assessment due to having had a stroke recently with short hospital stay. She verbalized that her medical doctor would not release her to return to driving until she completed assessment. She was seen by this therapist in the past prior to 2019 after she had sustained a significant fall while performance at that time was favorable so she could return to driving. Her came to the appointment with her and indicated that he is 87 years old and will typically let her drive as he is an insulin dependent diabetic who sometimes has significant swings with his condition so prefers to not drive although he is able to. Her verbalized that there had been one time prior to the stroke when she was going to turn with an oncoming vehicle and he spoke up to keep her from turning which he indicated somewhat concerned him. He is willing to ride with her in the future and monitor her performance if she does well with this evaluation. Functional Limitations: heavy exertion Prior Level of Function: Independent without limitations Home Environment Patient Lives With: Spouse Assistance Available: 24-Hour ( can assist) Home Type: Mobile Home Entry To Home: Stairs, With Rail Number Of Stairs Into Home: 6 Transportation: SUV (has not driven since having the stroke) Patient Goals: to return to providing for own and household transportation needs Intake Information: Prescription present Previous Treatment: Acute Hospital Falls Interview: No positive findings with falls interview Relevant History Past Relevant Medical Conditions: Depression (chronic pain issues) Highest Level of Education: Other: See Comment (some college) Right or Left Handed: Right 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) Recreation / Current Exercise: no formal exercise Hobbies / Interests: writing, time with friends Home Environment Patient Lives With: Spouse Assistance Available: 24-Hour ( can assist) Home Type: Mobile Home Entry To Home: Stairs, With Rail Number Of Stairs Into Home: 6 Transportation: SUV (has not driven since having the stroke) Activities of Daily Living: Independent Instrumental Activities of Daily Living: Independent and some help from her with laundry and cleaning tasks Driving History: 65 years; has 2021 [employer] which is only vehicle State: [place] License/Permit #: [id number] Expires: 06/06/25 Restrictions: corrective lenses 5 Yr. Violation HX: no 5 Yr. MVA HX: no Handicap Parking Placard: YES 1. Xavier Payton James self report indicates an awareness of: Decreased balance Fatigue, or poor endurance 2. Xavier Payton James expressed confidence regarding driving when driving alone and locally. 3. Xavier Payton James expressed concerns regarding driving at night/decreased light conditions, in congested traffic, on the interstate, in unfamiliar places, and on long trips. OBJECTIVE MEASURES WITH LEVEL OF FUNCTION: SENSORIMOTOR ASSESSMENT: Hand dominance: Right Level of Function Relevant to I ADL, Community Mobility, and Driving: Right UE: Sufficient Left UE: Sufficient Overlay Plastician: Sufficient Right LE: Sufficient Left LE: Sufficient Sitting Balance: Sufficient Head / Neck: Sufficient Ambulation: Sufficient while she does prefer to ambulate with walking stick for community distances Transfers: Sufficient Loading of Device: Sufficient ASSESSMENT OF SENSORIMOTOR FUNCTION: Compatible with Driving VISION SCREENING: Vision Vision Deficits: Wears corrective lenses Corrective lenses: glasses about 1 month old as eye appointment then with new lenses Corrective Lenses: Wears glasses / contact lenses for driving Distant Acuity: Binocular: 20 / 20 Nighttime Glare: Right: 20 / 30 Left: 20 / 30-1 Color Perception: pass Depth Perception: Pass Contrast Sensitivity: mildly impaired B Peripheral Vision: Within legal limits for driving Right Eye: Acknowledged all stimuli. Left Eye: Acknowledged all stimuli. Pursuits: WNL Saccades: WNL Convergence: WFL Nystagmus: Not Apparent Diplopia: No complaints Strabismus: No OU Cataracts: No OU Glaucoma: No. OU Other Eye Conditions / Diseases Reported: no ASSESSMENT OF VISUAL FUNCTION: Compatible with Driving COGNITIVE / PERCEPTUAL ASSESSMENT: SHORT BLESSED TEST Short Blessed Test 1. What Year Is It Now?: Correct 2. What Month Is It Now?: Correct 3. What Time is it? (WIthin 1 hour): Correct 4. Count Aloud Backwards 20 to 1 (Errors): 2 5. Months of the Year in Reverse Order (Errors): 0 6. 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 According to The Physician's Guide to Assessing and Counseling Older Drivers, 2003, any incorrect element in the Mandeep Clock Scoring signals a need for intervention. Motor Free Visual Perception Test: MVPT Total Score: 32 MVPT Processing time (seconds): 4.4 Norms: 70-80 y/o: Raw Score 25-35; Processing Time 4.5-7.1 seconds +/- .5 seconds Visual Inattention / Unilateral Neglect: Not Apparent ASSESSMENT OF COGNITIVE / PERCEPTUAL FUNCTION: Compatible with Driving Brayden Plant Operator Helper Simulator: Simple Brake Reaction Time: Average Distance: 50.7 feet (Normal = 60 feet) R foot only pedal operation method Education: Education Learning Preferences: Explanation Barriers: None Learning/educational needs: Safety, Plan of Care Education Provided: Yes, see treatment interventions for education provided Education Provided To: Patient, Family ( present) Education Mode/Type: Explanation/Discussion Response to Education/Teach Back: States/Identifies TREATMENT: Evaluation Self-Usp Management: 1: refer to documentation for details 2: provided patient and with education and support as appropriate Skilled Intervention: Skilled judgment in the selection of proper modification for activity of daily living/home management based on clinical presentation, deficits, and needs. Educated the patient regarding recommendations and provided written instruction to facilitate compliance. Reviewed patient specific diagnosis in relation to activities of daily living/home management. Activity progression based on professional judgement. Community /Work Re-integration: OT Community/Work Reintegration: completed intake with driving history, expectations, concerns, goals completed by CDRS PLAN OF CARE: SUMMARY AND RECOMMENDATIONS *The information in this report indicates the ability of the local bulk driver to operate a motor vehicle on this date only. Due to the complex nature of the safe operation of a motor vehicle, and considering the demands of integrating changing environmental conditions, and visual, cognitive, and physical skills, successful completion of this program is not a guarantee of safe driving in the future. ASSESSMENT OF INSTRUMENTAL ADL AND COMMUNITY MOBILITY: Xavier Ramirez presents with the diagnosis of CVA. She presents with no significant impairments. She may benefit from skilled occupational therapy services to completed the functional task portion of this assessment-behind the wheel portion. RECOMMENDATIONS: ADL/IADL Recommendations: no recommendations needed Driving Recommendations: REFRAIN FROM DRIVING OUTSIDE OF DRIVERS REHABILITATION WHILE BEHIND THE WHEEL PORTION SCHEDULED FOR 07/07/22 Recommended Complete Eye Exam: as indicated by safety professional Prognosis: Good Good due to: current objective clinical presentation, good overall health status, acuteness of condition, positive past response to therapy, good support system/ coping skills Goals for Episode of Care created on 06/30/22 through 07/09/22 Patient will complete clinical training and/or testing at [place] level in preparation for returning to driving. Patient will complete functional mobility task with good safety awareness during behind the wheel portion of assessment. Planned Interventions, Frequency, and Duration: Current Frequency: 1 visit Duration: 1 visit Total Number of Visits Planned: 1 Patient to be see for Plant Operator Helper rehab evaluation PLAN FOR NEXT VISIT: completed the behind the wheel portion of this assessment Patient demonstrates good understanding of plan of care and treatment. The above goals and plan of care were discussed and agreed upon by patient/family. Billing: Total Treatment Time Minutes (timed/untimed) 120 minutes Evaluation - Moderate Complexity (52571) Self Care / Home Management (30803): 1:1 time: 30 minutes (2 units: 23-37 mins) Community /Work Re-integration (41702): 1:1 time: 30 minutes (2 units: 23-37 mins) Total time: 120 minutes Franklin Cobb OT/Suzanne, CDRS, CDI Certified Plant Operator Helper Dye Winch Operator documented in this encounter [facility] Evaluation note Note Date & Type Note Facility documented in this encounter [facility] Evaluation note Note Date & Type Note Facility documented in this encounter [facility] Summary Purpose Family History No Family History Records FoundNo Family History Records FoundNo Family History Records FoundNo Family History Records Found Advance Directives No Advanced Directives Records FoundDocuments on File Type Date Recorded Patient Director Of Research Center Expl anation Advance Directive(s) 11/14/2014 9:32 AM Additional Source Comments INFORMATION SOURCE (unrecogn ized section and content) DATE CREATED AUTHOR AUTHOR'S ORGANIZ ATION 10/20/2018 [facility] DATE CREATED AUTHOR AUTHOR'S ORGANIZ ATION 07/15/2022 [facility] DATE CREATED AUTHOR AUTHOR'S ORGANIZ ATION 11/18/2022 [facility] Source Comments (unrecognize d section and content) In the event this informatio n is protected by the Federal Confidentiality of Alcohol and Drug Abuse Patient Records regulations: The Federal rules restrict any use of the information to criminally investigate or prosecute any alcohol or drug abuse patient.[facility]healthIn the event this information is protected by the Federal Confidentiality of Alcohol and Drug Abuse Patient Records regulations: The Federal rules restrict any use of the information to criminally investigate or prosecute any alcohol or drug abuse patient.[facility] the event this information is protected by the Federal Confidentiality of Alcohol and Drug Abuse Patient Records regulations: The Federal rules restrict any use of the information to criminally investigate or prosecute any alcohol or drug abuse patient.[facility] Reason for Visit (unrecogniz ed section and content) Specialty Diagnoses / Procedures Referred By Navya carreno Referred To Contact Occupational Therapy / OCCUPATIONAL THERAPY Diagnoses CVA (cerebral vascular accident) (HCC) cva Procedures NEW RS OT COMM REINTEGRATION Jose Segura MD [address] [place] [address] Franklin Cobb OT/Suzanne Referral ID Status Reason Start Date Expiration Date Visits Re quested Visits Authorized [id number] Closed 06/16/2022 09/16/2022 1 1 Reason Comments New Patient [facility] ED 06/13/22; TIA Reason Comments Appointment Care Teams (unrecognized sec tion and content) Ict Programmer Relationship Specialty Start Date End Date Jose Segura MD [address], [place] [id number] PCP - General Family Medicine 06/24/22 Ict Programmer Relationship Specialty Start Date End Date Jose Segura MD [address] [place] [address] PCP - General Family Medicine 06/24/22 FOR RECORDS PERTAINING TO PATIENTS WHO ARE OR HAVE BEEN ENROLLED IN A CHEMICAL DEPENDENCY/SUBSTANCEABUSE PROGRAM, SOME INFORMATION MAY BE OMITTED. This clinical summary was aggregated from multiple sources. Caution should be exercised in using it in the provision of clinical care. This summary normalizes information from multiple sources, and as a consequence, information in this document may materially change the coding, format and clinical context of patient data. In addition, data may be omitted in some cases. CLINICAL DECISIONS SHOULD BE BASED ON THE PRIMARY CLINICAL RECORDS. [employer] provides no warranty or guarantee of the accuracy or completeness of information in this document.
[2023-06-11 13:00] VITALS: BP 127/88; PULSE 76; RESP 16; TEMP 36.4; O2SAT 99; BMI 29.7
== END 2023-06-11 13:09 | disposition home or self-care (01) ==
PROVIDERS: Emergency Provider Emergency Medicine; PCP Family Medicine; Visit Provider Emergency Medicine
DX: R60.0 Localized edema (principal); F03.90 Unspecified dementia, unspecified severity, without behavioral disturbance, psychotic disturbance, mood disturbance, and anxiety; J44.9 Chronic obstructive pulmonary disease, unspecified; I10 Essential (primary) hypertension; G47.33 Obstructive sleep apnea (adult) (pediatric); R06.02 Shortness of breath; Z86.73 Personal history of transient ischemic attack (TIA), and cerebral infarction without residual deficits; Z86.16 Personal history of COVID-19; Z87.891 Personal history of nicotine dependence
CPT/HCPCS: 71045; 80053; 83880; 84484; 85025; 93005; 99283

== ENCOUNTER 2023-06-26 06:36 | Emergency (ER) | payer MEDICARE, MEDICAID, SELFPAY ==
[2023-06-26 06:37] VITALS: BP 166/71; PULSE 71; RESP 16; TEMP 36.3; O2SAT 98; O2SAT 99; BMI 24.2
--- NOTE | 2023-06-26 06:52 | EKG12_ITS ---
Test Reason : SOB Blood Pressure : / mmHG Vent. Rate : 072 BPM Atrial Rate : 072 BPM P-R Int : 152 ms QRS Dur : 080 ms QT Int : 416 ms P-R-T Axes : 059 026 059 degrees QTc Int : 455 ms Sinus rhythm with Premature atrial complexes Nonspecific T wave abnormality Abnormal ECG Confirmed by Nick Cobos ([id number]), research editor NENA JONES ([id number]) on 06/28/2023 8:17:38 AM Referred By: Confirmed By:Nick Cobos
[2023-06-26 07:05] VITALS: O2SAT 96
--- NOTE | 2023-06-26 07:11 | RAD_ITS ---
INDICATION: Shortness of breath EXAMINATION/TECHNIQUE: X-RAY - XR Chest 2 Views COMPARISON: April 02, 2023 June 11, 2023 FINDINGS: LINES/DEVICES: There is a loop recorder projecting over the left hemithorax LUNGS: The lungs are hyperinflated. No new consolidation, edema or effusion. No pneumothorax. MEDIASTINUM AND CARDIOVASCULAR STRUCTURES: Cardiac silhouette not enlarged. Central airways and mediastinal contour are unremarkable. BONES AND SOFT TISSUES: There are stable left lateral rib deformities consistent with old rib fractures. RAD/Chest PA and Lateral IMPRESSION: Hyperinflated lungs. Electronically Signed: Alissa Moralez MD at 8:13 EDT ,
--- NOTE | 2023-06-26 07:13 | EDS_ITS ---
HPI History of Present Illness Chief Complaint: Shortness of Breath Informant: patient and family (daughter) Narrative Narrative: Patient presents with dyspnea, around 7 AM she woke up in the middle the night with this around 1:30 AM. She states this is not an uncommon occurrence and has been occurring for months, but in the last 2 or 3 nights it was worse, and more persistent. She states usually when she sits up it improves and tonight it did not and she had persistent dyspnea. She states it is much better now but she still feels like it is a little off. She denies any chest discomfort. She has had edema in her legs for the last couple weeks, she was seen here in the ER for it 2 weeks ago and then followed up with her PCP and was placed on compression pants which she has on now. They have helped some but this morning the daughter states that her feet are more swollen than typical after being in bed supine all night. Patient states there has always been some asymmetry with worsening in the left compared with right. No history of DVT or PE that she knows of. She has chronic minor cough that is no different than usual and nonproductive. She states lately she has noticed some mild dyspnea with activities, she just states that has been there for a while and cannot tell me exactly how long. She denies any exertional chest discomfort. She has an echocardiogram and PFTs scheduled within the next couple weeks. She is not on a diuretic although it had been considered recently apparently. Daughter states she has a history of sleep apnea but will not or cannot wear oxygen or CPAP at night. 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 Essential hypertension Fall GERD (gastroesophageal reflux disease) GI bleed History of CVA in adulthood History of dementia History of GI bleed Hypercholesterolemia Hypertensive emergency without congestive heart failure Hypothyroidism ZONIA (obstructive sleep apnea) Recurrent episodes of unresponsiveness TIA (transient ischemic attack) Vitamin D deficiency Home Medications aspirin 81 mg chewable tablet 81 mg PO BREAKFAST #0 tabs 06/15/22 [Rx Last Taken Unknown] clopidogrel 75 mg tablet 75 mg PO DAILY #30 tabs 06/15/22 [Rx Last Taken Unknown] mirtazapine 15 mg tablet 7.5 mg PO DAILY 10/16/22 [History Last Taken Unknown] pantoprazole 40 mg tablet,delayed release 40 mg PO DAILY 10/16/22 [History Last Taken Unknown] pramipexole 1.5 mg tablet 1.5 mg PO DAILY 10/16/22 [History Last Taken Unknown] valsartan 320 mg-hydrochlorothiazide 25 mg tablet 1 tab PO DAILY 10/16/22 [History Last Taken Unknown] atorvastatin 40 mg tablet 40 mg PO QHS 04/28/23 [History Last Taken Unknown] chlorpheniramine maleate 4 mg tablet (Allergy (chlorpheniramine)) 4 mg PO QHS 04/28/23 [History Last Taken Unknown] memantine 10 mg tablet 10 mg PO DAILY 04/28/23 [History Last Taken Unknown] potassium chloride 20 mEq tablet,extended release(part/cryst) 20 meq PO BID 04/28/23 [History Last Taken Unknown] trazodone 50 mg tablet 50 mg PO QHS 04/28/23 [History Last Taken Unknown] amlodipine 5 mg tablet 5 mg PO DAILY 06/11/23 [History Last Taken Unknown] albuterol sulfate 90 mcg/actuation aerosol inhaler (Ventolin HFA) 1 - 2 puff inhalation Q4H PRN PRN Wheezing ##1 06/26/23 [Rx Last Taken Unknown] furosemide 20 mg tablet 20 mg PO DAILY #5 tabs 06/26/23 [Rx Last Taken Unknown] Allergy/AdvReac Type Severity Reaction Status Date / Time lisinopril Allergy Mild cough Verified 06/26/23 06:40 alendronate sodium Allergy Unknown unknown Verified 06/26/23 06:40 [From Fosamax] Sulfa (Sulfonamide Allergy Rash Verified 06/26/23 06:40 Antibiotics) atorvastatin [From Lipitor] AdvReac Mild muscle Verified 06/26/23 06:40 aches rosuvastatin [From Crestor] AdvReac Mild muscle Verified 06/26/23 06:40 aches codeine AdvReac Nausea Verified 06/26/23 06:40 NSAIDS (Non-Steroidal AdvReac Bleeding Verified 06/26/23 06:40 Anti-Inflamma Family History Mother Heart disease CVA (cerebral vascular accident) Father Heart disease Surgical History History of hysterectomy History of left mastoidectomy History of lumpectomy of right breast History of right hip replacement History of thyroid surgery Status post placement of implantable loop recorder (11/08/22) Social History household members: spouse Smoking Status: Former smoker how long ago did patient quit smoking: Quit ~ 24-25 years prior. alcohol intake: current alcohol intake frequency: a few times a month details: 1 drink/[place] nightly. substance use type: other details: Given THC chew per her family for sleep but prior no substance use. ROS ROS ED Constitutional Constitutional ED: Denies chills or fever(s) Eyes Eyes: Denies change in vision or diplopia ENT ENT ED: Denies rhinorrhea or sore throat Cardiovascular Cardiovascular: Reports leg edema and paroxysmal nocturnal dyspnea; Denies chest pain, orthopnea or palpitations Respiratory/Chest Respiratory/Chest: Reports cough, dyspnea on exertion and paroxysmal nocturnal dyspnea; Denies orthopnea Gastrointestinal Gastrointestinal: Denies abdominal pain, diarrhea, nausea or vomiting Genitourinary Genitourinary ED: Denies dysuria or hematuria Musculoskeletal Musculoskeletal: Denies back pain or neck pain Integumentary Denies abscess or rash Neurologic Neurologic: Denies headache(s), paresthesias or weakness Psychiatric Psychiatric: Denies anxiety or suicidal thoughts EXAM Physical Exam Const Vital Signs: 06/26/23 06:37 06/26/23 06:37 06/26/23 07:05 Temperature 97.4 F L Temperature Source Temporal Pulse Rate 71 Respiratory Rate 16 Respiratory Effort Normal Non-Labored Respiratory Depth Normal Respiratory Pattern Normal Blood Pressure 166/71 H Blood Pressure Mean 102 Pulse Ox 98 96 Oxygen Delivery Method Room Air Room Air 06/26/23 07:32 06/26/23 08:00 06/26/23 07:22 Temperature Temperature Source Pulse Rate 72 71 Respiratory Rate 18 17 Respiratory Effort Respiratory Depth Respiratory Pattern Normal Blood Pressure 144/56 H Blood Pressure Mean 85 Pulse Ox 97 Oxygen Delivery Method Room Air Room Air Positive well nourished and well developed General Appearance ED: well developed and NAD HEENT Reports moist mucous membranes normocephalic and atraumatic Eyes PERRL and EOMs intact bilaterally Neck full ROM, supple and no JVD Resp normal respiratory effort and clear to auscultation bilaterally Resp Narrative: At 1 point very slight and expiratory wheezing Cardio regular rate, regular rhythm and no murmurs Rate: Negative for tachycardic GI non-tender and non-distended Auscultation: normoactive bowel sounds Palpation: soft Back/Spine no CVA tenderness General Back: other FROM Extremity normal to inspection General Extremety ED: Yes edema; Negative for pulses abnormal or tenderness General Extremity: edema bilateral lower extremity Details: moderate (Mostly in left foot although there is pitting edema pretibial bilaterally. No calf tenderness, signs of cellulitis or palpable cords); Negative for pulses abnormal Neuro oriented x3, CN's II-XII intact bilaterally and no sensory deficits noted Sensorium / Orientation: awake and alert Motor Exam: strength 5/5 throughout Psych mental status grossly normal Skin no rashes or lesions noted and no wounds MDM MDM MDM Narrative Medical decision making narrative: I considered multiple etiologies in this patient's mild dyspnea that wakes her up almost every night and is improved compared to what it was earlier at this time. She is conversive in full sentences every time I evaluate her. I tried an albuterol treatment, she said it helped. She states she has a history of mild COPD although I do not see it in her EMR and her daughter confirms this. We considered the possibility of congestive heart failure especially given the edema in her legs, DVT and PE given that the edema is asymmetric but always has been for a long time, COPD plus or minus pneumonia, anemia, and other cardiac etiology such as acute coronary syndrome. I rule out most of this, her troponin and BNP are normal, she is not anemic, renal function is normal, and she does not have pneumonia, her two-view chest x-ray my interpretation is unremarkable and radiology was in agreement, her EKG is unchanged and showing no acute injury pattern, couple PACs that she is asymptomatic with. The D-dimer is slightly elevated at 0.89. When adjusted for age, her upper limit of normal is 0.83. At or below that point would give her 99.1% sensitivity for ruling out DVT and PE in someone with a low pretest probability which this patient does have. At this level, I cannot find a study that tells me exactly what the sensitivity would be, but I presume it would still be in the 90s. I discussed this with the patient and daughter at length. I do not think it is likely that she has a PE causing these respiratory symptoms. Therefore I think that the risk of CTA probably outweighs the potential benefit here, daughter is in agreement and agrees with avoiding it. In addition, we do not have access good enough to do CTA right now and that would involve more needlesticks which the patient does not want. Getting an outpatient ultrasound of the left lower extremity would be reasonable since there is no harm in it, but I do not think we need to upgrade her to anticoagulants in the meantime, she is already on aspirin and clopidogrel which also decreases her risk of thromboembolic disease. She also has obstructive sleep apnea and does not tolerate (or is not compliant) treatments for this, which could be certainly contributing to her PND. They are in agreement with all of this in addition to trying for 5 days of once daily diuretic and an albuterol inhaler to use as needed and following up with her doctor. Lab Data Attestation: I reviewed the patient's lab results. Labs: Laboratory Results - last 24 hr 06/26/23 07:30 WBC 5.2 RBC 4.55 Hgb 12.5 Hct 40.2 MCV 88.4 MCH 27.5 MCHC 31.1 L RDW Std Deviation 47.7 H RDW Coeff of Kierra 14.8 H Plt Count 244 MPV 9.5 Immature Gran % (Auto) 0.200 Neut % (Auto) 68.4 Lymph % (Auto) 13.9 L [place] % (Auto) 13.7 H Eos % (Auto) 2.1 Baso % (Auto) 1.7 H Absolute Neuts (auto) 3.5 Absolute Lymphs (auto) 0.72 L Nucleated RBC % 0 D-Dimer Quant (PE/DVT) 0.89 H* Sodium 136 Potassium 4.6 Chloride 106 Carbon Dioxide 26.0 Anion Gap 4 L BUN 15 Creatinine 0.82 Estim Creat Clear Calc 43.00 Est GFR (MDRD) Af Amer 86 Est GFR (MDRD) Non-Af 71 BUN/Creatinine Ratio 18.3 Glucose 100 Calcium 9.3 Troponin I High Sens 9 B-Natriuretic Peptide 44.2 Radiography Diagnostic Testing: Clinical Impression(s) from Imaging Studies Chest X-Ray 06/26/23 07:11 IMPRESSION: Hyperinflated lungs. Electronically Signed: Alissa Moralez MD at 8:13 EDT , Rhythm Strip Rhythm Strip: Sinus Rhythm Rate: 75 Ectopy: PAC(s) EKG Initial EKG: Attestation: I personally reviewed and interpreted this EKG as follows: Interpretation: Sinus Rhythm and No Acute Injury Pattern Prior EKG tracings: available for review Prior: Unchanged Discharge Plan Triage Chief Complaint: Shortness of Breath ED Provider: Esteban Leiva Dx/Rx/DC Orders Clinical Impression: Bilateral edema of lower extremity, Sleep apnea, Dyspnea, paroxysmal nocturnal Instructions: ED Dyspnea, ED Peripheral Edema, Bilateral Prescriptions: New albuterol sulfate [Ventolin HFA] 90 mcg/actuation HFA aerosol inhaler 1 - 2 puff inhalation Q4H PRN PRN (Reason: Wheezing) Qty: 1 0RF furosemide 20 mg tablet 20 mg PO DAILY Qty: 5 0RF No Action aspirin 81 mg Tablet,Chewable 81 mg PO BREAKFAST Qty: 0 0RF clopidogrel 75 mg Tablet 75 mg PO DAILY Qty: 30 0RF mirtazapine 15 mg tablet 7.5 mg PO DAILY Patient Comments: TAKE 1/2 TO 1 (ONE-HALF TO ONE) TABLET BY MOUTH AT BEDTIME pantoprazole 40 mg tablet,delayed release (DR/EC) 40 mg PO DAILY pramipexole 1.5 mg tablet 1.5 mg PO DAILY Patient Comments: TAKE 1 TABLET 2 TO 3 HOURS BEFORE BEDTIME FOR RESTLESS LEGS valsartan-hydrochlorothiazide 320-25 mg tablet 1 tab PO DAILY memantine 10 mg tablet 10 mg PO DAILY potassium chloride 20 mEq tablet,ER particles/crystals 20 meq PO BID trazodone 50 mg tablet 50 mg PO QHS atorvastatin 40 mg tablet 40 mg PO QHS chlorpheniramine maleate [Allergy (chlorpheniramine)] 4 mg tablet 4 mg PO QHS amlodipine 5 mg tablet 5 mg PO DAILY Other Ambulatory Orders: Venous Duplex US, Unilateral (Stat) Facility: [facility] - Location: [facility] Ordered By: Dr. Esteban Leiva Primary Care Provider: Vikram Segura Referrals: Vikram Segura MD [Primary Care Provider] - 3-5 Days Disposition Disposition: Home, Self Care
--- OUTSIDE RECORDS SUMMARY | 2023-06-26 07:18 | XMS RPT_ITS | CCD ---
Author Name Unknown Address [address] [place] [address] Organization [facility] Care Team Providers Care Supervisor Assembly And Packing Name Role Phone Micky Chavarria Unavailable Unavailable *SELF, REFERRED Unavailable Unavailable Natalia Gaines Unavailable Unava ilable Mak, Deya German Unavailable Unavailable Micky Chavarria Unavailable Unavailable Natalia Gaines Unavailable Unava ilable Jose Segura MD Primary Care Provider [phone] FRANKLIN COBB Attending Unavailable JOSE SEGURA Referring [...] [SULFA (SULFONAMIDE ANTIBIOTICS)] Drug Intolerance 5 Rash [facility] Medications Completed/Discontinued Medications Medication Drug Class(es) Dates [...] 56.52 kg Jordana Devine APRN.ADRIAN Work Phone: [facility] 10-28-2022 15:29-0400 Diastolic blood pressure 73 mm[Hg] Jordana Devine MINI BACCARAT DEALER.COUNCILPERSON Work Phone: [facility] 10-28-2022 15:29-0400 Heart rate 67 /min Jordana Devine MINI BACCARAT DEALER.COUNCILPERSON Work Phone: [facility] 10-28-2022 15:29-0400 Respiratory rate 16 /min Jordana Devine MINI BACCARAT DEALER.ADRIAN Work Phone: [facility] 10-28-2022 15:29-0400 SaO2% (BldA) [Mass fraction] 96 % Jordana Devine MINI BACCARAT DEALER.COUNCILPERSON Work Phone: [facility] 10-28-2022 15:29-0400 Systolic blood pressure 132 mm[Hg] Jordana Devine MINI BACCARAT DEALER.ADRIAN Work Phone: [facility] Encounters Encounter Date Encounter Type Care Provider Facility Start: 11-17-2022 Telephone encounter Jordana Asencio APRN.ADRIAN Work Phone: Neurology Plan of Treatment Date Care Activity Detail Author Start: 12-17-2022 Influenza vaccination INFLUENZA (#1) [facility] Start: 05-06-2022 COVID-19 VACCINE (6 - Moderna series) COVID-19 VACCINE (6 - Moderna series) [facility] Start: 04-18-2022 ADVANCE DIRECTIVE DISCUSSION ADVANCE DIRECTIVE DISCUSSION [facility] Start: 04-18-2022 DEPRESSION ASSESSMENT DEPRESSION ASSESSMENT [facility] Start: 2005 BONE DENSITY BONE DENSITY [facility] Start: 2005 PNEUMOCOCCAL: 65+ (1 - PCV) PNEUMOCOCCAL: 65+ (1 - PCV) [facility] Start: 1990 SHINGRIX VACCINE (1 of 2) SHINGRIX VACCINE (1 of 2) [facility] Start: 1985 DIABETES SCREEN DIABETES SCREEN [facility] Start: 1959 Urine microalbumin profile DTAP,TDAP,TD (1 - Tdap) [facility] Cardiovascular funct ion eval w/tilt table w/mntr TILT TABLE EVALUATION Cardiology Routine Syncope, unspecified syncope type Ordered: 10/28/2022 [facility] Work Phone: Payers Date Payer Category Payer Medicare HUMANA MEDICARE HU[employer]NA MEDICARE PPO [id number] 2022-Present [phone] [address] [address] [place] [address] PPO [id number] 2022 Medicare [id number] Medicare [id number] Social History Date Type Detail Facility Start: 11-14-2014 End: 10-28-2022 Tobacco smoking status NHIS Ex-smoker [facility] End: 11-14-1994 History of tobacco use Current smoker [facility] End: 11-14-1994 History of tobacco use Cigarette Smoker [facility] Start: 11-14-2014 End: 10-28-2022 Cigarettes smoked current (pack per day) - Reported 1 [facility] Start: 02-17-2016 End: 10-28-2022 Alcohol intake Current drinker of alcohol (finding) [facility] Start: 1940 Sex Assigned At Not on file [facility] Start: 10-28-2022 Tobacco use panel [facility] National Score (1-10 0), lower number is lower risk 72 [facility] Note 11-17-2022 Telephone Encounter - Marii Hassan LPN - 11/17/2022 1:56 PM EDTTelephone Encounter - Jordana Devine APRN.COUNCILPERSON - 11/17/2022 12:56 PM EDT Note Date & Type Note Facility 11-17-2022 Miscellaneous Notes Formattin g of this note might be different from the original. TC to pt who is okay with cancelling tilt table. TC to [facility] to cancel test. Marii Hassan LPN [...] to use. Cande Reyes RN TC to hospital insurance representative Dr. Sidhu. Spoke with clinical staff who states she will look into it. Gave her orthos taken in office over phone and she will give us a call back if pt needs to continue with test or if she can cancel it. Marii Hassan LPN If her hospital insurance representative does not feel tilt table is recommended it can be cancelled. Please ensure patient discussed orthostatic results that were obtained in the office with her hospital insurance representative prior to cancelling. Want to make sure [...] scheduled for a Tilt Test Tomorrow at [place], however she received a call today stating that her Weather Algorithm Scientist Doctor told them that she does not need the test and it should be canceled. She does not know if she should move forward with the test now or not since it was a different Provider cancelling it. Please call patient at [phone] to advise. Thank you! documented in this encounter [facility] Progress note 10-28-2022 Note Date & Type Note Facility 10-28-2022 Note HNO ID: [id number] Author: Jordana Devine APRN.ADRIAN Service: ? Author Type: Nurse Practitioner Type: Progress Notes Filed: 11/01/2022 10:01 AM Note Text: [facility] Neurologic Kimberly New Patient Visit New Patient Consultation October [...] are limited as pt was seen at [facility]. Per ED note on 10/13/22: Chief [...] the patient st (more content not included)... [facility] Instructions 10-28-2022 Patient Instructions Note Date & Type Note Facility 10-28-2022 Instructions Jordana Devine APRN.ADRIAN - 10/28/2022 4:32 PM EDT Orthostatic VS: Laying 155/72, HR 57 Sitting 161/72, HR 59 Standing 113/72, HR 68 and 122/72, HR 70 documented in this encounter [facility] History of Present illness Narrative 10-28-2022 Jordana Devine APRN.[facility] - 10/28/2022 3:30 PM EDT Note Date & Type Note Facility 10-28-2022 History of Presen t illness Narrative [facility] Neurologic Kimberly New Patient Visit New Patient Consultation October [...] are limited as pt was seen at [facility]. Per ED note on 10/13/22: Chief [...] discharge summary, HPI reports presents to the [facility] ED on 10/17/2022 with history of [...] take Tramadol. No seizure hx. 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 Alcohol: One glass nightly Tobacco: Quit 25 years ago Drug: Denies PAST MEDICAL HISTORY Diagnosis Date Ductal carcinoma in situ (DCIS) of right breast Hypertension Hypothyroidism Snoring PAST SURGICAL HISTORY Procedure Laterality Date BREAST LUMPECTOMY HX right breast COLONOSCOP W/ OR W/O [facility] SPEC 11/14/14 Colonoscopy HYSTERECTOMY HX age [...] In addition, images were obtained of the [place]. Sagittal and coronal reconstructed images and 3D reconstructions were reviewed. Individualized dose optimization techniques were used for this CT. IV contrast dosage and agent: 100 mL of Isovue-370. COMPARISON: 06/13/2022 CTA. FINDINGS: --CTA HEAD: No evidence of arterial flow limiting stenosis. No evidence of large vessel occlusion. 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 [place] anatomy is unremarkable. --CTA NECK: [...] posterior cerebral arteries with absent P1 segments. 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 [...] have asked her to follow-up with her hospital insurance representative on Tuesday regarding these readings. In the [...] which included preparing to see the patient, [id number] patient care, completing clinical documentation, obtaining and/or reviewing separately obtained history, performing a medically appropriate examination, counseling and educating the patient/family/caregiver, and ordering medications, tests, or procedures. Portions of this note were created with electronic dictation and errors in spelling, syntax, and meaning may have occurred. documented in this encounter [facility] Progress note 07-07-2022 Note Date & Type Note Facility 07-07-2022 Note HNO ID: [id number] Author: Franklin Cobb OT/L Service: ? Author [...] she is participating in research study at [facility] related to memory loss while she is uncertain as to if she is getting the medication or the placebo but is happy to be involved in this type of project. OBJECTIVE MEASURES WITH LEVEL OF FUNCTION: this therapist did meet patient at her home where the drive started and ended while she drove the evaluation vehicle which [facility] ENVIRONMENT: Location: Residential, Urban, Interstate, [...] prefer any longer to drive outside of [facility] while mostly staying in [facility] which this therapist in agreement with TREATMENT: On Road Driving Assessment: completed the functional task portion of this assessment during behind the wheel session ASSESSMENT: Xavier Payton James tolerated today's treatment visit well. She demonstrated functional skills throughout the session. PLAN: No further outpatient OT indicated. SUMMARY AND RECOMMENDATIONS *The information in this report indicates the ability of the pick up driver to operate a motor vehicle on [...] LONG DISTANCE DRIVING ONLY IF OTHER LICENSED HOG SCRAPER ALONG TO ASSIST; MAINTAIN DRIVING ONLY ON [...] minutes Drivers Follow Up per 60 min (32901): 1:1 time 60 min Total time: 60 minutes Franklin Cobb OT/Suzanne, CDRS, CDI Certified [facility] [employer] Philosophy Faculty Member Episode Visit Count: 2 Start of Care Date: 06/30/22 REHABILITATION AND SPORTS THERAPY OCCUPATIONAL THERAPY DISCONTINUANCE OF CARE PLAN OF CARE UPDATE: Assessment: Xavier Ramirez is disconti (more content not included)... [facility] Progress note 06-30-2022 Note Date & Type Note Facility 06-30-2022 Note HNO ID: [id number] Author: JEROME Del Castillo Service: ? Author [...] tasks Driving History: 65 years; has 2021 [employer] which is only vehicle State: [place] License/Permit #: [id number] Expires: 06/06/25 Restrictions: corrective lenses 5 Yr. [...] Driving: Right UE: Sufficient Left UE: Sufficient Hogshead Press Operator: Sufficient Right LE: Sufficient Left LE: Sufficient [...] Conditions / Di (more content not included)... [facility] History of Present illness Narrative 06-30-2022 Franklin [...] tasks Driving History: 65 years; has 2021 [employer] which is only vehicle State: [place] License/Permit #: [id number] Expires: 06/06/25 Restrictions: corrective lenses 5 Yr. 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 Visual Scanning/Attention: [place] Making Part B (sec): 161 sec 50th [...] / PERCEPTUAL FUNCTION: Compatible with Driving Brayden [facility] Simulator: Simple Brake Reaction Time: Average Distance: 50.7 feet (Normal = 60 feet) R foot only pedal operation method Education: Education Learning Preferences: Explanation Barriers: None Learning/educational needs: Safety, Plan of Care Education Provided: Yes, see treatment interventions for education provided Education Provided To: Patient, Family ( present) Education Mode/Type: Explanation/Discussion Response to Education/Teach Back: States/Identifies TREATMENT: Evaluation [facility] Management: 1: refer to documentation for details [...] this report indicates the ability of the pick up driver to operate a motor vehicle on [...] Recommended Complete Eye Exam: as indicated by data keyer Prognosis: Good Good due to: current objective clinical presentation, good overall health status, acuteness of condition, positive past response to therapy, good support system/ coping skills Goals for Episode of Care created on 06/30/22 through 07/09/22 Patient will complete clinical training and/or testing at [place] level in preparation for returning to driving. Patient will complete functional mobility task with good safety awareness during behind the wheel portion of assessment. Planned Interventions, Frequency, and Duration: Current Frequency: 1 visit Duration: 1 visit Total Number of Visits Planned: 1 Patient to be see for [facility] rehab evaluation PLAN FOR NEXT VISIT: completed the behind the wheel portion of this assessment Patient demonstrates good understanding of plan of care and treatment. The above goals and plan of care were discussed and agreed upon by patient/family. Billing: Total Treatment Time Minutes (timed/untimed) 120 minutes Evaluation - Moderate Complexity (37094) Self Care / Home Management (13229): 1:1 time: 30 minutes (2 units: 23-37 mins) Community /Work Re-integration (91710): 1:1 time: 30 minutes (2 units: 23-37 mins) Total time: 120 minutes Franklin Cobb OT/Suzanne, CDRS, CDI Certified [facility] Philosophy Faculty Member documented in this encounter [facility] Evaluation note Note Date & Type Note Facility documented in this encounter [facility] Evaluation note Note Date & Type Note Facility documented in this encounter [facility] Summary Purpose Family History No Family History Records FoundNo Family History Records FoundNo Family History Records FoundNo Family History Records Found Advance Directives No Advanced Directives Records FoundDocuments on File Type Date Recorded Patient Credit Charge Authorizer Expl anation Advance Directive(s) 11/14/2014 9:32 AM Additional Source Comments INFORMATION SOURCE (unrecogn ized section and content) DATE CREATED AUTHOR AUTHOR'S ORGANIZ ATION 10/20/2018 [facility] DATE CREATED AUTHOR AUTHOR'S ORGANIZ ATION 07/15/2022 [facility] DATE CREATED AUTHOR AUTHOR'S ORGANIZ ATION 11/18/2022 [facility] Source Comments (unrecognize d section and content) In the event this informatio n is protected by the Federal Confidentiality of Alcohol and Drug Abuse Patient Records regulations: The Federal rules restrict any use of the information to criminally investigate or prosecute any alcohol or drug abuse patient.[facility] the event this information is protected by the Federal Confidentiality of Alcohol and Drug Abuse Patient Records regulations: The Federal rules restrict any use of the information to criminally investigate or prosecute any alcohol or drug abuse patient.[facility] the event this information is protected by the Federal Confidentiality of Alcohol and Drug Abuse Patient Records regulations: The Federal rules restrict any use of the information to criminally investigate or prosecute any alcohol or drug abuse patient.[facility] Reason for Visit (unrecogniz ed section and content) Specialty Diagnoses / Procedures Referred By Navya carreno Referred To Contact Occupational Therapy / OCCUPATIONAL THERAPY Diagnoses CVA (cerebral vascular accident) (HCC) cva Procedures NEW RS OT COMM REINTEGRATION Jose Segura MD [address] [email or web address] [address] Franklin Cobb OT/Suzanne Referral ID Status Reason Start Date Expiration Date Visits Re quested Visits Authorized [id number] Closed 06/16/2022 09/16/2022 1 1 Reason Comments New Patient [facility] ED 06/13/22; TIA Reason Comments Appointment Care Teams (unrecognized sec tion and content) Supervisor Assembly And Packing Relationship Specialty Start Date End Date Jose Segura MD [address] [place], [place] [id number] PCP - General Family Medicine 06/24/22 Supervisor Assembly And Packing Relationship Specialty Start Date End Date Jose Segura MD [address] [place] [address] PCP - General Family Medicine 06/24/22 FOR [...] BE BASED ON THE PRIMARY CLINICAL RECORDS. [employer] provides no warranty or guarantee of the accuracy or completeness of information in this document.
[2023-06-26] MEDS: Albuterol 2.5 MG/3 ML VIAL.NEB. INHALATION (07:21)
[2023-06-26 07:22] VITALS: PULSE 71; RESP 17
[2023-06-26 07:40] LABS: Absolute Lymphocyte Count 0.72 X10^3/uL (0.83-4.51); Absolute Neutrophil Count 3.5 X10^3/uL (2.0-7.7); Basophil# 0.09 X10^3/uL; Basophil% 1.7 % (0-1); Eosinophil# 0.11 X10^3/uL; Eosinophils% 2.1 % (0-5); Hematocrit 40.2 % (37-47); Hemoglobin 12.5 g/dL (12.0-15.0); Lymphocyte # 0.72 X10^3/ul (0.83-4.51); Lymphocyte % 13.9 % (19-41); Mean Corp Hgb Conc 31.1 g/dL (32-36); Mean Corpuscular Hgb 27.5 pg (27.0-32.0); Mean Corpuscular Volume 88.4 fL (81-99); Mean Platelet Vol. 9.5 fl (6.2-12.0); Monocyte# 0.71 X10^3/uL; Monocyte% 13.7 % (0-10); NRBC Flagged by Analyzer 0 % (0-5); Neutrophil # 3.53 X10^3/uL (2.7-7.7); Neutrophil % 68.4 % (47-70); Platelet Count 244 K/mm3 (150-450); RBC Distribution Width CV 14.8 % (11.6-14.6); RBC Distribution Width SD 47.7 fl (35.1-43.9); Red Blood Count 4.55 M/mm3 (4.2-5.4); White Blood Count 5.2 K/mm3 (4.4-11.0)
[2023-06-26 08:00] VITALS: BP 144/56; PULSE 72; RESP 18; O2SAT 97
[2023-06-26 08:02] LABS: Troponin-I HS 9 pg/mL (3.0-54.0)
[2023-06-26 08:10] LABS: BNP,B-Type NATRIURETIC PEPTIDE 44.2 pg/mL (0-100)
[2023-06-26 08:24] LABS: Anion Gap 4 (5-15); BUN 15 mg/dL (7-18); BUN/Creat Ratio 18.3 RATIO (10-20); Calcium,Total 9.3 mg/dL (8.5-10.1); Chloride 106 mmol/L (98-107); Creatinine, Serum 0.82 mg/dL (0.55-1.02); EST Glomerular Filtration Rate 71 mL/min (>60); Est Glom Filt Rate - Afr Amer 86 mL/min (>60); Glucose 100 mg/dL (74-106); Potassium 4.6 mmol/L (3.5-5.1); Sodium Level 136 mmol/L (136-145)
[2023-06-26 08:27] LABS: D-Dimer Quantitative (DVT/PE) 0.89 FEU/ug/m (0.27-0.49)
[2023-06-26 09:37] VITALS: BP 144/56; PULSE 77; RESP 18; TEMP 36.6; O2SAT 98
== END 2023-06-26 09:38 | disposition home or self-care (01) ==
PROVIDERS: Emergency Provider Emergency Medicine; PCP Family Medicine; Visit Provider Emergency Medicine
DX: R60.0 Localized edema (principal); J44.9 Chronic obstructive pulmonary disease, unspecified; G47.33 Obstructive sleep apnea (adult) (pediatric); R06.00 Dyspnea, unspecified; K21.9 Gastro-esophageal reflux disease without esophagitis; Z87.891 Personal history of nicotine dependence; Z79.82 Long term (current) use of aspirin; Z79.899 Other long term (current) drug therapy; Z86.16 Personal history of COVID-19; Z86.73 Personal history of transient ischemic attack (TIA), and cerebral infarction without residual deficits
CPT/HCPCS: 94760; 71046; 80048; 83880; 84484; 85025; 85379; 93005; 94640; 99284; A4216

== ENCOUNTER 2023-06-26 16:24 | Observation (INO) | payer MEDICARE, MEDICAID, SELFPAY ==
[2023-06-26 16:25] VITALS: BP 170/82; PULSE 80; RESP 16; TEMP 36.2; O2SAT 95; BMI 24.7
--- NOTE | 2023-06-26 16:38 | CT_ITS ---
STUDY: CT BRAIN WITHOUT CONTRAST REASON FOR EXAM: Female, 83 years old. head injury RADIATION DOSAGE (If Supplied By Facility): CTDIvol = ( 44.99 ) mGy, DLP = ( 779.24 ) mGycm TECHNIQUE: Transaxial CT imaging of the brain was performed without administration of intravenous contrast material. Individualized dose optimization techniques were used for this CT. COMPARISON: 04/28/2023 FINDINGS: Small right occipital scalp hematoma. Normal calvarium. There is moderate cerebral atrophy with widening of the extra-axial spaces and ventricular dilatation. There are areas of decreased attenuation within the white matter tracts of the supratentorial brain, consistent with microvascular disease changes. Normal basal ganglia and thalami. Normal brainstem. Normal cerebellum. There is no intracranial hemorrhage. Insufflation the posterior right parietal lobe consistent with chronic infarct. Normal visualized paranasal sinuses. CT/Brain/Head without Contrast IMPRESSION: Small right occipital scalp hematoma. No acute intracranial hemorrhage. Electronically Signed: Wang Johnson MD at 18:41 EDT ,
--- NOTE | 2023-06-26 16:39 | CT_ITS ---
STUDY: CT CERVICAL SPINE WITHOUT CONTRAST REASON FOR EXAM: Female, 83 years old. head injury RADIATION DOSAGE (If Supplied By Facility): CTDIvol = ( 13.70 ) mGy, DLP = ( 284.73 ) mGycm TECHNIQUE: High resolution transaxial imaging was performed without contrast material. Sagittal and coronal images were reconstructed. Individualized dose optimization techniques were used for this CT. COMPARISON: None FINDINGS: Normal craniovertebral junction. There is hypertrophy of the transverse ligament of the atlas with mild posterior displacement of the superior and inferior longitudinal fibers of the cruciform ligament, producing minimal ventral thecal sac flattening, but without cervical cord impingement. There are mild degenerative changes in the anterior atlantoaxial articulation. Normal odontoid process. There is straightening of the normal cervical lordosis. Normal vertebral bodies and posterior osseous elements. C2-3: Mild bilateral facet hypertrophy with ankylosis of the right facet joint produces mild bilateral neural foraminal stenosis. No central spinal stenosis.. C3-4: Mild bilateral facet hypertrophy produces mild bilateral neural foraminal stenosis. No central spinal stenosis. C4-5: Mild left facet hypertrophy and left uncovertebral hypertrophy produces moderate left neural foraminal stenosis. Mild broad disc osteophyte complex produces mild spinal stenosis. C5-6: Moderate broad disc osteophyte complex and bilateral uncovertebral hypertrophy produces moderate spinal stenosis and moderate bilateral neural foraminal stenosis. C6-7: Mild broad disc osteophyte complex and bilateral uncovertebral hypertrophy produces mild spinal stenosis and mild bilateral neural foraminal stenosis. C7-T1: Normal endplates. Normal disc height and morphology. Normal central canal and intervertebral neuroforamina. Enlarged heterogeneous thyroid gland and thyroid ultrasound may be useful to exclude dominant nodule. CT/Spine Cervical without Contras IMPRESSION: 1. No acute fracture or subluxation. 2. Degenerative disc disease with straightening of the normal lordotic curvature. Electronically Signed: Wang Johnson MD at 18:47 EDT ,
--- NOTE | 2023-06-26 16:41 | EDS_ITS ---
<Statement entered by Genny Worley MD - 06/26/23 21:28> I have personally performed a face to face assessment of the patient and have reviewed the ALEXUS Note. Patient presents after fall. Patient states she was wearing Shoes that caught on a rug causing her to trip and fall. She then had a coat rack fell off of the wall and hit her in the back of the head. She has a small laceration to the right posterior parietal scalp and bleeding is currently well- controlled. Patient sitting upright in bed no acute distress. Alert and talkative. Head and neck examination reveals a small, 3 to 4 mm laceration to the right posterior parietal scalp. Bleeding controlled. No C-spine tenderness. Heart is regular rate and rhythm. Lung sounds are clear. Abdomen is soft and nontender. CT scan of the head and C-spine revealed degenerative changes with no acute findings. Right scalp laceration is cleansed and sealed with Dermabond. Patient wanted to get up to go the restroom but noted that she was having significant right knee pain and had difficulty with weightbearing. At that time x-rays of the right knee are obtained. Per my interpretation this reveals arthritic changes. Radiology feels there is a joint effusion and further imaging suggested if concern for fracture. CT scan of the knee is obtained. There are some changes noted along the inferior aspect of the patella that may represent a fracture or osteophyte formation. She does not have focal tenderness to this area. At this time patient is not able to weight-bear. She feels she will need physical therapy and possible placement. We will discuss with hospitalist for admission. HPI History of Present Illness Chief Complaint: Fall Narrative Narrative: Patient presenting today due to a head injury that occurred this afternoon. She reports that she had put on a pair of new slippers and the slipper caught the edge of the rug causing her to trip and hit her face against the ground. As she was falling, she did hit her head against the wall which caused a large metal rack to fall off the wall and strike her in the back of the head. She reports a small laceration to the back of her head. She is unsure when her last tetanus was updated. She is on aspirin and Plavix. She denies loss of consciousness. She denies other injury. Tetanus Immunization: Unknown 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 Essential hypertension Fall GERD (gastroesophageal reflux disease) GI bleed History of CVA in adulthood History of dementia History of GI bleed Hypercholesterolemia Hypertensive emergency without congestive heart failure Hypothyroidism ZONIA (obstructive sleep apnea) Recurrent episodes of unresponsiveness TIA (transient ischemic attack) Vitamin D deficiency Home Medications aspirin 81 mg chewable tablet 81 mg PO BREAKFAST #0 tabs 06/15/22 [Rx Last Taken Unknown] clopidogrel 75 mg tablet 75 mg PO DAILY #30 tabs 06/15/22 [Rx Last Taken Unknown] mirtazapine 15 mg tablet 7.5 mg PO DAILY 10/16/22 [History Last Taken Unknown] pantoprazole 40 mg tablet,delayed release 40 mg PO DAILY 10/16/22 [History Last Taken Unknown] pramipexole 1.5 mg tablet 1.5 mg PO DAILY 10/16/22 [History Last Taken Unknown] valsartan 320 mg-hydrochlorothiazide 25 mg tablet 1 tab PO DAILY 10/16/22 [History Last Taken Unknown] atorvastatin 40 mg tablet 40 mg PO QHS 04/28/23 [History Last Taken Unknown] chlorpheniramine maleate 4 mg tablet (Allergy (chlorpheniramine)) 4 mg PO QHS 04/28/23 [History Last Taken Unknown] memantine 10 mg tablet 10 mg PO DAILY 04/28/23 [History Last Taken Unknown] trazodone 50 mg tablet 50 mg PO QHS 04/28/23 [History Last Taken Unknown] amlodipine 5 mg tablet 5 mg PO DAILY 06/11/23 [History Last Taken Unknown] albuterol sulfate 90 mcg/actuation aerosol inhaler (Ventolin HFA) 1 - 2 puff inhalation Q4H PRN PRN Wheezing ##1 06/26/23 [Rx Last Taken Unknown] doxepin 10 mg capsule 10 mg PO QHS 06/26/23 [History Last Taken Unknown] furosemide 20 mg tablet 20 mg PO DAILY #5 tabs 06/26/23 [Rx Last Taken Unknown] potassium chloride 20 mEq/15 mL oral liquid 20 meq PO BID 06/26/23 [History Last Taken Unknown] Allergy/AdvReac Type Severity Reaction Status Date / Time lisinopril Allergy Mild cough Verified 06/26/23 16:28 alendronate sodium Allergy Unknown unknown Verified 06/26/23 16:28 [From Fosamax] Sulfa (Sulfonamide Allergy Rash Verified 06/26/23 16:28 Antibiotics) atorvastatin [From Lipitor] AdvReac Mild muscle Verified 06/26/23 16:28 aches rosuvastatin [From Crestor] AdvReac Mild muscle Verified 06/26/23 16:28 aches codeine AdvReac Nausea Verified 06/26/23 16:28 NSAIDS (Non-Steroidal AdvReac Bleeding Verified 06/26/23 16:28 Anti-Inflamma Family History Mother Heart disease CVA (cerebral vascular accident) Father Heart disease Surgical History History of hysterectomy History of left mastoidectomy History of lumpectomy of right breast History of right hip replacement History of thyroid surgery Status post placement of implantable loop recorder (11/08/22) Social History household members: spouse Smoking Status: Former smoker how long ago did patient quit smoking: Quit ~ 24-25 years prior. alcohol intake: current alcohol intake frequency: a few times a month details: 1 drink/[place] nightly. substance use type: other details: Given THC chew per her family for sleep but prior no substance use. ROS ROS ED Constitutional Constitutional ED: Denies chills or fever(s) Cardiovascular Cardiovascular: Denies chest pain Respiratory/Chest Respiratory/Chest: Denies cough or dyspnea Gastrointestinal Gastrointestinal: Denies abdominal pain, nausea or vomiting Musculoskeletal Musculoskeletal: Denies arthralgias, myalgias or neck pain Integumentary Reports laceration Neurologic Neurologic: Denies headache(s) EXAM Physical Exam Const Vital Signs: 06/26/23 16:25 06/26/23 16:38 06/26/23 18:50 Temperature 97.1 F L Temperature Source Oral Pulse Rate 80 84 Respiratory Rate 16 18 Respiratory Effort Normal Non-Labored Respiratory Depth Normal Respiratory Pattern Normal Blood Pressure 170/82 H 148/89 H Blood Pressure Mean 111 108 Pulse Ox 95 95 Oxygen Delivery Method Room Air Room Air 06/26/23 20:53 Temperature 97.1 F L Temperature Source Pulse Rate 88 Respiratory Rate 19 H Respiratory Effort Respiratory Depth Respiratory Pattern Blood Pressure 170/73 H Blood Pressure Mean 105 Pulse Ox 93 Oxygen Delivery Method Positive well nourished, well developed and no apparent distress General Appearance ED: well developed HEENT Reports normocephalic and head/scalp atraumatic HEENT Narrative: Very small area of edema and ecchymosis below the right eye. No pain to palpation to the inferior or superior orbits bilaterally or facial bones. Small 0.5 cm full-thickness linear laceration to the posterior scalp. Mouth ED: Yes moist mucous membranes normal Eyes PERRL and EOMs intact bilaterally Neck full ROM and supple Chest Wall inspection of chest normal Resp normal respiratory effort and clear to auscultation bilaterally Cardio regular rate and regular rhythm GI soft to palpation, non-tender, non-distended and no masses Back/Spine normal ROM and normal to inspection Extremity normal to inspection and full ROM Neuro oriented x3, CN's II-XII intact bilaterally, moves all extremities, no focal motor deficits and no sensory deficits noted Sensorium / Orientation: awake and alert Psych mental status grossly normal and thought process normal Skin no rashes or lesions noted MDM MDM MDM Narrative Medical decision making narrative: Patient presenting today due to a mechanical fall that occurred this afternoon causing her to fall and hit her head. She has a small laceration to the posterior aspect of her head. Given she is on blood thinners, head CT will be obtained to rule out intracranial bleed, cervical spine CT will be obtained to rule out neck fracture. The nurse did attempt to ambulate patient to the bathroom but she was unable to stand due to right knee pain and feeling like her knee was giving out. Daughter reports that after patient fell she was unable to ambulate well due to her right knee giving out. Patient does live at home by herself and daughter is concerned that she will not be able to get around at home. X-ray of the right knee will be obtained to rule out fracture. She will be given analgesia. This does show an effusion with concerns for possible occult fracture, CT scan was then obtained and shows possible nondisplaced fracture to the inferior pole of the patella. Patient does not have any tenderness on exam to her patella and reports that it is no longer painful. However, given she is having a difficult time ambulating I do not think that it is safe for her to be at home by herself. She was already here this morning where labs were obtained. I will discuss case with the hospitalist. She is agreeable to being placed in a SNF if necessary for physical therapy. Radiography X-Ray: Read by ED Physician Diagnostic Testing: Clinical Impression(s) from Imaging Studies Brain CT 06/26/23 16:38 IMPRESSION: Small right occipital scalp hematoma. No acute intracranial hemorrhage. Electronically Signed: Wang Johnson MD at 18:41 EDT Reading Location ID and State: [employer] [facility] [employer] , Service support , Cervical Spine CT 06/26/23 16:39 IMPRESSION: 1. No acute fracture or subluxation. 2. Degenerative disc disease with straightening of the normal lordotic curvature. Electronically Signed: Wang Johnson MD at 18:47 EDT Reading Location ID and State: [employer] , Service support , Knee X-Ray 06/26/23 17:46 IMPRESSION: Effusion, as described above. CT or MRI may be useful to exclude radiographic occult fracture. Electronically Signed: Wang Johnson MD at 18:51 EDT Reading Location ID and State: [employer] / [employer] , Service support , Lower Extremity CT 06/26/23 19:13 IMPRESSION: Irregular radiolucency the inferior pole of the patella may be related to an enthesophyte or nondisplaced fracture. Electronically Signed: Wang Johnson MD at 20:45 EDT Reading Location ID and State: [employer] , Service support , Discharge Plan Triage Chief Complaint: Fall ED Midlevel Provider: Kera Rome ED Provider: Genny Worley Dx/Rx/DC Orders Clinical Impression: Inability to ambulate due to knee, Laceration of head, Head injury Prescriptions: No Action aspirin 81 mg Tablet,Chewable 81 mg PO BREAKFAST Qty: 0 0RF clopidogrel 75 mg Tablet 75 mg PO DAILY Qty: 30 0RF mirtazapine 15 mg tablet 7.5 mg PO DAILY Patient Comments: TAKE 1/2 TO 1 (ONE-HALF TO ONE) TABLET BY MOUTH AT BEDTIME pantoprazole 40 mg tablet,delayed release (DR/EC) 40 mg PO DAILY pramipexole 1.5 mg tablet 1.5 mg PO DAILY Patient Comments: TAKE 1 TABLET 2 TO 3 HOURS BEFORE BEDTIME FOR RESTLESS LEGS valsartan-hydrochlorothiazide 320-25 mg tablet 1 tab PO DAILY memantine 10 mg tablet 10 mg PO DAILY trazodone 50 mg tablet 50 mg PO QHS atorvastatin 40 mg tablet 40 mg PO QHS chlorpheniramine maleate [Allergy (chlorpheniramine)] 4 mg tablet 4 mg PO QHS amlodipine 5 mg tablet 5 mg PO DAILY albuterol sulfate [Ventolin HFA] 90 mcg/actuation HFA aerosol inhaler 1 - 2 puff inhalation Q4H PRN PRN (Reason: Wheezing) Qty: 1 0RF furosemide 20 mg tablet 20 mg PO DAILY Qty: 5 0RF doxepin 10 mg capsule 10 mg PO QHS potassium chloride 20 mEq/15 mL liquid 20 meq PO BID Primary Care Provider: Vikram Segura Referrals: Vikram Segura MD [Primary Care Provider] - Disposition Disposition: Acute Care Hospital [facility]
[2023-06-26] MEDS: Diphth,Pertuss(Acell),Tet Vac 0.5 ML Vial IM (16:46)
--- NOTE | 2023-06-26 17:46 | RAD_ITS ---
STUDY: X-RAY - RIGHT KNEE REASON FOR EXAM: Female, 83 years old. pain, injury TECHNIQUE: 3 view(s) of the knee. COMPARISON: None. FINDINGS: There is demineralization of the visualized distal femur. There is demineralization of the tibia and fibula. Normal proximal tibiofibular articulation. Enthesophytes of the superior and inferior poles of the patella. Normal medial femorotibial compartment. Normal lateral femorotibial compartment. Normal patellofemoral articulation. There is a soft tissue prominence in the suprapatellar region suggesting a small volume joint effusion. The soft tissue structures are unremarkable. RAD/Knee 3 Views IMPRESSION: Effusion, as described above. CT or MRI may be useful to exclude radiographic occult fracture. Electronically Signed: Wang Johnson MD at 18:51 EDT ,
[2023-06-26] MEDS: Acetaminophen 325 MG Tablet 650 MG PO (18:02)
[2023-06-26 18:50] VITALS: BP 148/89; PULSE 84; RESP 18; O2SAT 95
--- NOTE | 2023-06-26 19:13 | CT_ITS ---
STUDY: CT RIGHT KNEE WITHOUT CONTRAST REASON FOR EXAM: Female, 83 years old. knee pain RADIATION DOSAGE (If Supplied By Facility): CTDIvol = ( 15.35 ) mGy, DLP = ( 472.73 ) mGycm TECHNIQUE: Transaxial CT imaging of the knee was performed. Coronal and sagittal images were reformatted. Individualized dose optimization techniques were used for this CT. COMPARISON: X-ray earlier today FINDINGS: Normal medial femoral condyle and medial tibial plateau. There is preservation of the articular joint space of the medial knee compartment. Normal lateral femoral condyle and lateral tibial plateau. There is preservation of the articular joint space of the lateral knee compartment. Normal proximal tibiofibular articulation. There is cortical thinning and osteopenia of the visualized bones suggestive of osteoporosis. There is an enthesophyte of the inferior pole of patella at the proximal patellar tendon. There is an irregular radiolucency through the inferior pole the patella which may be related to the enthesophyte or a nondisplaced fracture. There is a small joint effusion. The quadriceps tendon is grossly normal. The patellar tendon is grossly normal. Normal Hoffa''s fat pad. The soft tissues are unremarkable. CT/Extremity Lower without Contra IMPRESSION: Irregular radiolucency the inferior pole of the patella may be related to an enthesophyte or nondisplaced fracture. Electronically Signed: Wang Johnson MD at 20:45 EDT ,
[2023-06-26 20:53] VITALS: BP 170/73; PULSE 88; RESP 19; TEMP 36.2; O2SAT 93
--- NOTE | 2023-06-26 21:08 | PCM.HP.STD ---
HPI - General General Date of Admission: 06/26/23 Date of Service: 06/26/23 Chief Complaint: Fall, debility. HPI Narrative The patient is an 83 y/o F w/ PMHx: Anxiety and Depression, COPD, Former tobacco use, Hx TIA/CVA w/ Chronically mildly altered/slurred speech baseline, Hx TIA/CVA, ZONIA unable to tolerate PAP therapy, HTN, HLD, Hx R Ductal Carcinoma Breast, Alzhemier's dementia with unclear behavioral disturbance history, Hx GI bleed, Syncope events with loop recorder in place following with Cardiology who presents to the [facility] ED on 06/26/23 initially earlier in the morning with unremarkable workup following a fall however upon return to home she again notes that her right knee gave out and she again fell with significant difficulty caring for self with family concerns prompting them to bring her to the ED for consideration of admission to assure no further injury or falls. Patient denies any pain to the right knee but notes that it feels weak and just seems to buckle. Current workup in the ED included T97.1, heart rate 88, BP 170 or 73, respiratory rate 19, 94% on room air, CT of the brain with a small right occipital scalp hematoma with no acute intracranial findings, CT cervical spine with no acute fracture or subluxation with generative disc disease with straightening of the normal lordotic curvature, plain film of the right knee with an effusion, CT of the right knee with irregular radiolucency in the inferior pole of the patella questionably and enthesophyte versus nondisplaced fracture however case per ED staff was reviewed with orthopedic surgery who looked at the image and stated that this was not a fracture. Patient had fallen earlier in the morning and workup at that time with CBC with WBC 5.2, hemoglobin 12.5, platelet 244 without marked shift, D-dimer 0.89 which is near age-adjusted, BMP with sodium 136, potassium 4.6, chloride 106, BUN/creatinine 15/0.82, glucose 100, troponin 9, BNP 44.2, chest x-ray with chronic changes with no acute cardiopulmonary findings. In the ED patient administered tetanus update as well as Tylenol 650 mg p.o. x 1. 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 Essential hypertension Fall GERD (gastroesophageal reflux disease) GI bleed History of CVA in adulthood History of dementia History of GI bleed Hypercholesterolemia Hypertensive emergency without congestive heart failure Hypothyroidism ZONIA (obstructive sleep apnea) Recurrent episodes of unresponsiveness TIA (transient ischemic attack) Vitamin D deficiency Home Medications aspirin 81 mg chewable tablet 81 mg PO BREAKFAST #0 tabs 06/15/22 [Rx Last Taken Unknown] clopidogrel 75 mg tablet 75 mg PO DAILY #30 tabs 06/15/22 [Rx Last Taken Unknown] mirtazapine 15 mg tablet 7.5 mg PO DAILY 10/16/22 [History Last Taken Unknown] pantoprazole 40 mg tablet,delayed release 40 mg PO DAILY 10/16/22 [History Last Taken Unknown] pramipexole 1.5 mg tablet 1.5 mg PO DAILY 10/16/22 [History Last Taken Unknown] valsartan 320 mg-hydrochlorothiazide 25 mg tablet 1 tab PO DAILY 10/16/22 [History Last Taken Unknown] atorvastatin 40 mg tablet 40 mg PO QHS 04/28/23 [History Last Taken Unknown] chlorpheniramine maleate 4 mg tablet (Allergy (chlorpheniramine)) 4 mg PO QHS 04/28/23 [History Last Taken Unknown] memantine 10 mg tablet 10 mg PO DAILY 04/28/23 [History Last Taken Unknown] trazodone 50 mg tablet 50 mg PO QHS 04/28/23 [History Last Taken Unknown] amlodipine 5 mg tablet 5 mg PO DAILY 06/11/23 [History Last Taken Unknown] albuterol sulfate 90 mcg/actuation aerosol inhaler (Ventolin HFA) 1 - 2 puff inhalation Q4H PRN PRN Wheezing ##1 06/26/23 [Rx Last Taken Unknown] doxepin 10 mg capsule 10 mg PO QHS 06/26/23 [History Last Taken Unknown] furosemide 20 mg tablet 20 mg PO DAILY #5 tabs 06/26/23 [Rx Last Taken Unknown] potassium chloride 20 mEq/15 mL oral liquid 20 meq PO BID 06/26/23 [History Last Taken Unknown] Allergy/AdvReac Type Severity Reaction Status Date / Time lisinopril Allergy Mild cough Verified 06/26/23 16:28 alendronate sodium Allergy Unknown unknown Verified 06/26/23 16:28 [From Fosamax] Sulfa (Sulfonamide Allergy Rash Verified 06/26/23 16:28 Antibiotics) atorvastatin [From Lipitor] AdvReac Mild muscle Verified 06/26/23 16:28 aches rosuvastatin [From Crestor] AdvReac Mild muscle Verified 06/26/23 16:28 aches codeine AdvReac Nausea Verified 06/26/23 16:28 NSAIDS (Non-Steroidal AdvReac Bleeding Verified 06/26/23 16:28 Anti-Inflamma Family History Mother Heart disease CVA (cerebral vascular accident) Father Heart disease Surgical History History of hysterectomy History of left mastoidectomy History of lumpectomy of right breast History of right hip replacement History of thyroid surgery Status post placement of implantable loop recorder (11/08/22) Social History household members: spouse Smoking Status: Former smoker how long ago did patient quit smoking: Quit ~ 24-25 years prior. alcohol intake: current alcohol intake frequency: a few times a month details: 1 drink/[place] nightly. substance use type: other details: Given THC chew per her family for sleep but prior no substance use. ROS ROS Narrative Admission Review of Systems: CONSTITUTIONAL: No weight loss, fever, chills, + weakness or fatigue. HEENT: + Chronically slurred speech. Eyes: No visual loss, blurred vision, double vision or yellow sclerae. Ears, Nose, Throat: No hearing loss, sneezing, congestion, runny nose or sore throat. SKIN: No rash or itching, lesions, wounds except + very staged ecchymoses including to the face and scalp with recent falls. CARDIOVASCULAR: + Ongoing issues with occasional pedial edema. No chest pain, chest pressure or chest discomfort, palpitations, orthopnea, syncopal events. RESPIRATORY: + Chronic cough. No shortness of breath, marked sputum, wheezing, hemoptysis. GASTROINTESTINAL: No anorexia, nausea, vomiting or diarrhea, abdominal pain, melena, BRBPR. GENITOURINARY: No dysuria, frequency, urgency or retention. NEUROLOGICAL: + Chronic dysarthria. No headache, dizziness, syncope, paralysis, ataxia, numbness or tingling in the extremities, focal weakness, change in bowel or bladder control, seizure. MUSCULOSKELETAL: + muscle, back pain, joint pain or stiffness. HEMATOLOGIC: No anemia. + Easy bleeding or bruising. LYMPHATICS: No enlarged nodes. No history of splenectomy. PSYCHIATRIC: + history of depression or anxiety. ENDOCRINOLOGIC: No reports of sweating, cold or heat intolerance. No polyuria or polydipsia. ALLERGIES: + history of rhinitis. Vital Signs Vital Signs Vital Signs: 06/26/23 16:25 06/26/23 16:38 06/26/23 18:50 Temperature 97.1 F L Temperature Source Oral Pulse Rate 80 84 Respiratory Rate 16 18 Respiratory Effort Normal Non-Labored Respiratory Depth Normal Respiratory Pattern Normal Blood Pressure 170/82 H 148/89 H Blood Pressure Mean 111 108 Pulse Ox 95 95 Oxygen Delivery Method Room Air Room Air 06/26/23 20:53 Temperature 97.1 F L Temperature Source Pulse Rate 88 Respiratory Rate 19 H Respiratory Effort Respiratory Depth Respiratory Pattern Blood Pressure 170/73 H Blood Pressure Mean 105 Pulse Ox 93 Oxygen Delivery Method Weight Weight: 139 lb 15.896 oz Body Mass Index (BMI) 24.7 Physical Exam Narrative Physical Examination: General: Awake, alert, oriented x 3 and cooperative, seated upright in the ED bed, fatigued but denies any pain, staged ecchymoses evident, scalp hematoma evident. Skin: Normal color, normal turgor, no icterus, no cyanosis except for noted scalp hematoma, staged ecchymoses including to the face. HEENT: AT/NC, EOMI, PERRLA, mildly dry MM, no carotid bruits or JVD noted, see skin. Lungs: Mildly diminished, greater bases, appropriate effort, no rales, ronchi or wheezing. Heart: Regular rate and rhythm; no gallop, rub audible. Abdomen: Soft, NTTP, ND, distant normal BS, no appreciated HSM. Extremities: No cyanosis, no clubbing, mild pedal swelling. Neurological: Patient awake, alert, oriented as noted, cognitive function decreased baseline with underlying dementia but appears currently intact; pupils equally reactive to light and accommodation, cranial nerves grossly normal, moving all 4 extremities, no focal deficits, strength moderately globally decreased to severely globally decreased, worse with attempt to ambulate however this is before attempting placement of a knee immobilizer, speech chronically altered and unchanged from previous evaluations. Psychiatric: Affect appears normal, interactive and talkative, no acute evidence of depressive or anxiety feelings but does have underlying history. Results Imaging Radiology Impression Brain CT 06/26/23 16:38 IMPRESSION: Small right occipital scalp hematoma. No acute intracranial hemorrhage. Electronically Signed: Wang Johnson MD at 18:41 EDT Reading Location ID and State: [email or web address] Tel , Service support , Cervical Spine CT 06/26/23 16:39 IMPRESSION: 1. No acute fracture or subluxation. 2. Degenerative disc disease with straightening of the normal lordotic curvature. Electronically Signed: Wang Johnson MD at 18:47 EDT Reading Location ID and State: [employer] Tel , Service support , Knee X-Ray 06/26/23 17:46 IMPRESSION: Effusion, as described above. CT or MRI may be useful to exclude radiographic occult fracture. Electronically Signed: Wang Johnson MD at 18:51 EDT Reading Location ID and State: [email or web address] Tel , Service support , Lower Extremity CT 06/26/23 19:13 IMPRESSION: Irregular radiolucency the inferior pole of the patella may be related to an enthesophyte or nondisplaced fracture. Electronically Signed: Wang Johnosn MD at 20:45 EDT Reading Location ID and State: [email or web address] Tel , Service support , Assessment & Plan Assessment/Plan (1) Inability to ambulate due to knee: PLAN: Plan The patient is an 83 y/o F w/ PMHx: Anxiety and Depression, COPD, Former tobacco use, Hx TIA/CVA w/ Chronically mildly altered/slurred speech baseline, Hx TIA/CVA, ZONIA unable to tolerate PAP therapy, HTN, HLD, Hx R Ductal Carcinoma Breast, Alzhemier's dementia with unclear behavioral disturbance history, Hx GI bleed, Syncope events with loop recorder in place following with Cardiology who presents to the [facility] ED on 06/26/23 initially earlier in the morning with unremarkable workup following a fall however upon return to home she again notes that her right knee gave out and she again fell with significant difficulty caring for self with family concerns prompting them to bring her to the ED for consideration of admission to assure no further injury or falls. #1. Recurrent mechanical falls with debility, right knee instability with adult failure to thrive: Given patient and patient family concern for ability to take care of herself will admit to medical surgical floor, maintain on fall precautions, continue knee immobilizer initiated in the ED, case was already reviewed with orthopedic surgery in the ED and they did review the films and felt this was not a fracture thus will defer any consultation with them primarily use the immobilizer for preventing the knee giving out, will consult PT/OT/case management consultation for discharge planning. From discussion with patient she certainly sounds like she would be willing to do a short-term skilled but honestly she would benefit from assisted living placement in the long-term although it is unlikely to be affordable from discussions but will await case management/social work input. #2. Hx CVA/TIA: Patient with chronically altered speech/slurred speech which is baseline of note, will cautiously continue aspirin and Plavix given falls however patient continues to have serial falls may need to rethink dual antiplatelet therapy for safety, continue hypertensive regimen, statin allergy noted. #3. History Frequent Syncopal events: Of note she denies recent syncope associated with her falls, s/p loop recorder in place, encourage continued outpatient follow-up with cardiology as previously arranged. #4. Alzhemier's dementia with unclear behavioral disturbance history: Complicates presentation, maintain on fall and aspiration precautions, PT/OT/case management consulted for discharge planning. #5. Hypertension: Continue home regimen including valsartan, hydrochlorothiazide, amlodipine, PRN hydralazine. #6. Hyperlipidemia: Reported statin allergy. #7. Anxiety and depression w/ chronic insomnia: We will continue patient home mirtazapine and trazodone as well as doxepin regimen but clarifying medications. #8. Chronic COPD with allergic rhinitis, chronic cough: Not on any chronic regimen, if necessary may add additional aerosol treatments but in the interim we will maintain on PRN albuterol, HOB, IS parameters, continue patient home levocetirizine regimen. #9. History of breast cancer: Patient with history of right ductal carcinoma, s/p lumpectomy prior, considered in remission, encourage continued outpatient follow-up as previously arranged. #10. Former tobacco use: Encourage continued tobacco cessation. #11. ZONIA: Unable to tolerate PAP therapy with oxygen supplementation instead. #12. DVT prophylaxis: Lovenox. #13. CODE status: Patient HCPOA is her and living will is currently in place. Discussed CODE status at length including difference between FULL code, DNR-CCA and DNR-CC status. Following discussions about the differences in these status, requested DNR-CCA, no intubation status. Advanced Care Planning Face to Face Time: 16 minutes. Charges/Coding Visit Charges Inpatient E&M: 54581 Init Hosp L2 Procedures Hospitalists Procedures: 53073 Advncd Care Plan 30 Min
[2023-06-26 21:21] VITALS: BMI 23.3
[2023-06-26 21:30] VITALS: BP 184/86; PULSE 86; RESP 14; TEMP 36.1; O2SAT 97
[2023-06-26 22:05] LABS: Bacteria 0 SEEN /hpf (None Seen); Mucous, Urine 0 SEEN /hpf (<or=2+); Red Blood Cells-Urine 0 SEEN /hpf (0-5)
[2023-06-26 22:07] LABS: Color, Urine Yellow (Yellow); Glucose, Dipstick Normal (Normal); Ketone-Dipstick Negative (Negative); Leukocyte Esterase-Dipstick 25 /ul (Negative); Nitrite-Dipstick Negative (Negative); Occult Blood-Urine Negative /ul (Negative); Protein-Dipstick Negative (Negative); Specific Gravity, Urine 1.015 (1.002-1.030); Urine Bilirubin Dipstick Negative (Negative); Urine Clarity Sl. Cloudy (Clear); Urine Urobilinogen Normal (Normal)
[2023-06-26 22:14] LABS: Squamous Epithelial Cells - UA 0-5 SEEN /hpf (5-10); White Blood Cells 0-5 SEEN /hpf (0-5)
[2023-06-26] MEDS: Doxepin Hydrochloride 10 MG Capsule PO (22:20)
[2023-06-26] MEDS: Potassium Chloride Oral Soln 20 MEQ/15 ML UDC PO (22:20)
[2023-06-26] MEDS: Atorvastatin Calcium 40 MG Tablet PO (22:20)
[2023-06-26] MEDS: traZODone 50 MG Tablet PO (22:20)
[2023-06-27] VITALS (7 sets, daily range): BP systolic 134–154; BP diastolic 62–76; PULSE 63–90; RESP 15–18; TEMP 36.3–36.6; O2SAT 94–99; BMI 23.6
[2023-06-27 03:38] LABS: Absolute Lymphocyte Count 1.09 X10^3/uL (0.83-4.51); Basophil# 0.07 X10^3/uL; Basophil% 0.9 % (0-1); Eosinophil# 0.15 X10^3/uL; Hematocrit 34.7 % (37-47); Hemoglobin 11.1 g/dL (12.0-15.0); Lymphocyte # 1.09 X10^3/ul (0.83-4.51); Lymphocyte % 14.8 % (19-41); Mean Corpuscular Hgb 27.7 pg (27.0-32.0); Mean Corpuscular Volume 86.5 fL (81-99); Mean Platelet Vol. 10.3 fl (6.2-12.0); Monocyte# 1.01 X10^3/uL; Monocyte% 13.7 % (0-10); NRBC Flagged by Analyzer 0 % (0-5); Neutrophil # 5.03 X10^3/uL (2.7-7.7); Neutrophil % 68.2 % (47-70); Platelet Count 259 K/mm3 (150-450); RBC Distribution Width CV 14.8 % (11.6-14.6); RBC Distribution Width SD 47.8 fl (35.1-43.9); Red Blood Count 4.01 M/mm3 (4.2-5.4); White Blood Count 7.4 K/mm3 (4.4-11.0)
[2023-06-27 04:04] LABS: AST(SGOT) 29 U/L (15-37); Alanine Aminotransfer ALT/SGPT 20 U/L (13-56); Albumin, Serum 3.4 g/dL (3.2-5.0); Alkaline Phosphatase 90 U/L (45-117); Anion Gap 7 (5-15); BUN 13 mg/dL (7-18); Calcium,Total 9.1 mg/dL (8.5-10.1); Chloride 108 mmol/L (98-107); Creatinine, Serum 0.81 mg/dL (0.55-1.02); EST Glomerular Filtration Rate 72 mL/min (>60); Est Glom Filt Rate - Afr Amer 87 mL/min (>60); Estimated Creatinine Clearance 43.53 ml/min; Globulin 3.3 g/dL (2.2-4.2); Glucose 96 mg/dL (74-106); Potassium 4.2 mmol/L (3.5-5.1); Protein, Total 6.7 g/dL (6.4-8.2); Sodium Level 138 mmol/L (136-145)
[2023-06-27] MEDS: hydroCHLOROthiazide 25 MG Tablet PO (09:24)
[2023-06-27] MEDS: Mirtazapine 15 MG Tablet 7.5 MG PO (09:24)
[2023-06-27] MEDS: Pantoprazole Sodium 40 MG Tablet PO (09:25)
[2023-06-27] MEDS: Potassium Chloride Oral Soln 20 MEQ/15 ML UDC PO ×2 (09:25→20:39)
[2023-06-27] MEDS: Aspirin 81 MG TAB.CHEW PO (09:25)
[2023-06-27] MEDS: Losartan Potassium 100 MG Tablet PO (09:25)
[2023-06-27] MEDS: Clopidogrel Bisulfate 75 MG Tablet PO (09:25)
[2023-06-27] MEDS: amLODIPine 5 MG Tablet PO (09:25)
[2023-06-27] MEDS: Memantine Hydrochloride 10 MG Tablet PO (09:26)
[2023-06-27] MEDS: Pramipexole Di-HCl 0.5 MG Tablet 1.5 MG PO (09:26)
--- NOTE | 2023-06-27 10:09 | CASEMGMT ---
ANNIE GAUTHIER Assessment Face to Face with patient for initial transition planning/care coordination assessment. RN ABRAHAN introduced self and role at [facility], pt voices understanding. Pt is A&Ox4 and is resting comfortably in bed and is calm. Care providers, pharmacy, and demographics verified. Admitting dx: Fall, debility, Adult FTT LACE Strata: 3 PCP: Vikram Segura Specialists: Zheng Leal (Neuro in [place]) [facility]erred [facility]acy: [facility] Prescription Benefit: Yes LNOK: Amina Ramirez (LOUISE), Yasmine Ramirez (LOUISE). in December of 2022. Living Arrangements: Pt lives alone in a mobile home with 6 steps to enter with handrails x2. ADLs/IADLs: Ind Transportation: Pt drives DME: Pt states that she used to have oxygen at home through [employer] but I could not get used to wearing the equipment so I returned everything. Pt states that she does not wear any additional oxygen at home now. Pt states that she tried several times getting used to the O2 equipment but could not. Will test the pt during her stay here to see what she qualifies for. [place] from [employer] states the pt current order is 2L HS bleed through CPAP. Pt states other DME includes walk-in shower with GB and seat. Walking stick. Medical alert button. Grab bars for toilet. Pt denies all other DME uses or needs. HHC/SNF: denies history or needs. Pt?s goal: Home with OP Therapy Plan: 6-Click is 19. PT/OT eval pending. Pt states that she has been active with PT through [facility]. Pt states that she wishes to continue this. Pt questioned if she would like a new Rx during stay here and the pt refused and stated I've been seeing Dr. Segura for 14 years now so I can get a new prescription through him. Will also follow for potential oxygen needs. CM to follow for safe DC home. Tigist Eric RN, CM
--- NOTE | 2023-06-27 11:46 | CASEMGMT ---
Pt recently seen by therapy. PT states to this RN CM that the pt is now wanting us to set up OP Therapy for the pt. This RN CM back to pt room at this time regarding the matter. Pt daughter now at bedside. Pt states that there was confusion and apologizes. Pt and pt daughter both state that they want to get the order for OP therapy through the pt PCP at this time. Will follow in the case that the pt changes her mind.
--- NOTE | 2023-06-27 12:20 | PN_ITS ---
Subjective Subjective Patient seen and examined. She had no complaints today. She was admitted with a complaint of mechanical fall. Review of systems is otherwise negative. Objective Data Objective Data Vital Signs: Vital Signs Temp Pulse Resp BP Pulse Ox O2 Del Method O2 Flow Rate 97.8 F 80 16 134/62 H 97 Room Air 2 06/27/23 09:28 06/27/23 09:28 06/27/23 09:28 06/27/23 09:28 06/27/23 09:28 06/27/23 09:28 06/27/23 03:30 Oxygen Flow Rate (L/min) 2 Oxygen Delivery Method Room Air Weight: 133 lb 6.075 oz Body Mass Index (BMI) 23.6 Intake & Output: Intake and Output for Last 24 Hours 06/25/23 06/26/23 06/27/23 22:59 23:59 23:59 Intake Total Output Total Balance Lab / Micro Data 06/27/23 03:20 06/27/23 03:20 Labs: Laboratory Results - last 24 hr 06/26/23 21:55: Urine Color Yellow, Urine Clarity Sl. Cloudy, Urine pH 6.0, Ur Specific [place] 1.015, Urine Protein Negative, Urine Glucose (UA) Normal, Urine Ketones Negative, Urine Occult Blood Negative, Urine Nitrite Negative, Urine Bilirubin Negative, Urine Urobilinogen Normal, Ur Leukocyte Esterase 25 H, Urine RBC 0 SEEN, Urine WBC 0-5 SEEN, Ur Squamous Epith Cells 0-5 SEEN, Urine Bacteria 0 SEEN, Urine Mucus 0 SEEN 06/27/23 03:20: WBC 7.4, RBC 4.01 L, Hgb 11.1 L, Hct 34.7 L, MCV 86.5, MCH 27.7, MCHC 32.0, RDW Std Deviation 47.8 H, RDW Coeff of Kierra 14.8 H, Plt Count 259, MPV 10.3, Immature Gran % (Auto) 0.400, Neut % (Auto) 68.2, Lymph % (Auto) 14.8 L, [place] % (Auto) 13.7 H, Eos % (Auto) 2.0, Baso % (Auto) 0.9, Absolute Neuts (auto) 5.0, Absolute Lymphs (auto) 1.09, Nucleated RBC % 0, Sodium 138, Potassium 4.2, Chloride 108 H, Carbon Dioxide 23.0, Anion Gap 7, BUN 13, Creatinine 0.81, Estim Creat Clear Calc 43.53, Est GFR (MDRD) Af Amer 87, Est GFR (MDRD) Non-Af 72, BUN/Creatinine Ratio 16.0, Glucose 96, Calcium 9.1, Total Bilirubin 0.60, AST 29, ALT 20, Alkaline Phosphatase 90, Total Protein 6.7, Albumin 3.4, Globulin 3.3, Albumin/Globulin Ratio 1.0 Radiography Diagnostic Testing: Radiology Impression Brain CT 06/26/23 16:38 IMPRESSION: Small right occipital scalp hematoma. No acute intracranial hemorrhage. Electronically Signed: Wang Johnson MD at 18:41 EDT Reading Location ID and State: [employer] Tel , Service support , Cervical Spine CT 06/26/23 16:39 IMPRESSION: 1. No acute fracture or subluxation. 2. Degenerative disc disease with straightening of the normal lordotic curvature. Electronically Signed: Wang Johnson MD at 18:47 EDT Reading Location ID and State: [employer] Tel , Service support , Knee X-Ray 06/26/23 17:46 IMPRESSION: Effusion, as described above. CT or MRI may be useful to exclude radiographic occult fracture. Electronically Signed: Wang Johnson MD at 18:51 EDT Reading Location ID and State: [employer] Tel , Service support , Lower Extremity CT 06/26/23 19:13 IMPRESSION: Irregular radiolucency the inferior pole of the patella may be related to an enthesophyte or nondisplaced fracture. Electronically Signed: Wang Johnson MD at 20:45 EDT Reading Location ID and State: [employer] Tel , Service support , Physical Exam Const alert, oriented x3 and no apparent distress General Appearance: cooperative and well developed HEENT normocephalic, head/scalp atraumatic and moist oral mucous membranes Neck no lymphadenopathy and supple Lymph Lymphatic: no lymphadenopathy noted and no lymphedema noted Resp normal respiratory effort, normal air movement and clear to auscultation bilaterally Cardio regular rate, regular rhythm, S1 normal heart sound, S2 normal heart sound and no murmurs GI normal to inspection, nondistended, normoactive bowel sounds, soft to palpation, non-tender and non-distended Extremity normal capillary refill, no clubbing, cyanosis or edema and no calf tenderness Skin Skin Narrative: resolving right periorbital hematoma due to mechanical fall Neuro CN's II-XII intact bilaterally, no focal motor deficits, no sensory deficits noted and deep tendon reflexes 2+ bilaterally Motor Exam: strength 5/5 throughout and general weakness Psych thought process normal, cooperative and affect normal Appearance: appropriate Assessment & Plan Assessment/Plan (1) Head injury: (2) Laceration of head: PLAN: Plan #Debility due to recurrent mechanical fall with right periorbital hematoma * Patient has been falling frequently at home. 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 * PT OT on board. Fall precautions. ED discussed with orthopedic surgery and they reviewed her images of her knees done and felt there was no fracture. * Currently has a right knee immobilizer in place. * Fall precautions. * #History of TIA: On aspirin and Plavix. #History of syncope: Has not had syncope recently. Has a loop recorder in place. Follow-up with cardiology on outpatient basis. #History of Alzheimer's dementia:stable #Hypertension: On valsartan and hydrochlorothiazide as well as amlodipine. IV hydralazine as needed. #Anxiety and depression: On mirtazapine and trazodone as well as doxepin. #COPD: Not in exacerbation. Breathing treatments and bronchodilators. #History of breast cancer: S/p lumpectomy. Has a history of right ductal carcinoma. Stable. Follow-up with oncology on outpatient basis as needed. #ZONIA: Unable to tolerate CPAP or BiPAP. On oxygen as needed. DVT prophylaxis: Lovenox CODE STATUS: DNR CCA. Disposition: Will benefit from placement. Case management on board. PT OT on board. Charges/Coding Visit Charges Inpatient E&M: 47359 Subs Hosp L2
--- NOTE | 2023-06-27 15:32 | CASEMGMT ---
Met with?patient to complete KENDRICK form. KENDRICK form explained to patient who voiced understanding and signed form. Original form placed in pt?s chart and copy provided to patient. Mela Souza, Discharge Planning Asst
--- NOTE | 2023-06-27 17:13 | CASEMGMT ---
Social Work SW received a message from Myrtle Srinivasan, pt's family caseworker at [facility], requesting a call to let her know when pt is discharged what the plan will be: [phone]. CARL Piña
[2023-06-27] MEDS: Doxepin Hydrochloride 10 MG Capsule PO (20:40)
[2023-06-27] MEDS: Atorvastatin Calcium 40 MG Tablet PO (20:40)
[2023-06-27] MEDS: traZODone 50 MG Tablet PO (20:40)
[2023-06-28 00:01] VITALS: BMI 23.1
[2023-06-28 02:30] VITALS: BP 169/67; PULSE 75; RESP 17; TEMP 36.8; O2SAT 95
[2023-06-28] MEDS: 0.9% Saline Lock 10 ML Syringe IV (02:51)
[2023-06-28 02:57] LABS: Absolute Lymphocyte Count 1.14 X10^3/uL (0.83-4.51); Absolute Neutrophil Count 3.7 X10^3/uL (2.0-7.7); Basophil# 0.07 X10^3/uL; Basophil% 1.2 % (0-1); Eosinophil# 0.23 X10^3/uL; Eosinophils% 3.8 % (0-5); Hematocrit 34.9 % (37-47); Lymphocyte # 1.14 X10^3/ul (0.83-4.51); Lymphocyte % 18.9 % (19-41); Mean Corp Hgb Conc 31.5 g/dL (32-36); Mean Corpuscular Hgb 27.2 pg (27.0-32.0); Mean Corpuscular Volume 86.2 fL (81-99); Mean Platelet Vol. 10.3 fl (6.2-12.0); Monocyte# 0.91 X10^3/uL; Monocyte% 15.1 % (0-10); NRBC Flagged by Analyzer 0 % (0-5); Neutrophil # 3.66 X10^3/uL (2.7-7.7); Neutrophil % 60.7 % (47-70); Platelet Count 246 K/mm3 (150-450); RBC Distribution Width CV 14.9 % (11.6-14.6); RBC Distribution Width SD 47.4 fl (35.1-43.9); Red Blood Count 4.05 M/mm3 (4.2-5.4)
[2023-06-28 03:21] LABS: Anion Gap 6 (5-15); BUN 18 mg/dL (7-18); BUN/Creat Ratio 17.1 RATIO (10-20); Calcium,Total 8.9 mg/dL (8.5-10.1); Chloride 109 mmol/L (98-107); Creatinine, Serum 1.05 mg/dL (0.55-1.02); EST Glomerular Filtration Rate 53 mL/min (>60); Est Glom Filt Rate - Afr Amer 64 mL/min (>60); Estimated Creatinine Clearance 33.58 ml/min; Glucose 98 mg/dL (74-106); Potassium 4.7 mmol/L (3.5-5.1); Sodium Level 138 mmol/L (136-145)
[2023-06-28 08:30] VITALS: BP 150/63; PULSE 67; RESP 15; TEMP 36.1; O2SAT 95
[2023-06-28] MEDS: Clopidogrel Bisulfate 75 MG Tablet PO (09:22)
[2023-06-28] MEDS: hydroCHLOROthiazide 25 MG Tablet PO (09:22)
[2023-06-28] MEDS: Aspirin 81 MG TAB.CHEW PO (09:22)
[2023-06-28] MEDS: Memantine Hydrochloride 10 MG Tablet PO (09:22)
[2023-06-28] MEDS: Mirtazapine 15 MG Tablet 7.5 MG PO (09:22)
[2023-06-28] MEDS: Pantoprazole Sodium 40 MG Tablet PO (09:22)
[2023-06-28] MEDS: amLODIPine 5 MG Tablet PO (09:23)
[2023-06-28] MEDS: Losartan Potassium 100 MG Tablet PO (09:23)
--- NOTE | 2023-06-28 10:05 | CASEMGMT ---
Addendum entered by Erna Washington 06/28/23 10:16: HOWIE reviewed patient's PT/OT and therapy is recommending outpatient therapy. HOWIE asked RN ABRAHAN to follow up with patient's daughter Amina. Erna PENA Original Note: HOWIE received a voice mail from patient's daughter Amina. Amina stated there is concern with patient going home and she and her sister would like to talk to HOWIE. HOWIE called Amina back and left her a voice mail. Erna PENA
--- NOTE | 2023-06-28 10:39 | CASEMGMT ---
ANNIE GAUTHIER to pt room at this time. Pt daughter (Amina) at bedside. The pt and pt daughter continue to argue back and forth. Pt daughter states that the pt is non-compliant at home. The pt is stating that she is still wanting to DC with OP therapy. Pt states that the plan is still to have this set up through her PCP. Pt denies (again) needing an Rx here at this time. HOWIE Umanzor updated on the situation and states she will call the pt CM from [facility] and also visit the pt room today. Will follow for further needs. Tigist PEREZ RN, CM
--- NOTE | 2023-06-28 14:08 | CASEMGMT ---
SW called patient's case planner with [facility] (Myrtle Srinivasan [phone]). Myrtle said right now patient only has a medical alert button. Patient did have 10 meals a week delivered, but patient canceled those. SW asked Myrtle if [facility] is able to help with having a ramp built or hand rails installed. (SW was informed patient's daughter was asking about this) Myrtle said it is possible if there are funds. Myrtle said she would talk with patient about it, meals, and aide services. SW met with patient, her daughter Amina, and her other daughter Yasmine by phone. Conversation was not the most productive. Everything patient's daughter's would say patient would say they are lying. Patient's daughters would then argue back. SW did let them know [facility] may be able to assist with hand rails and or a ramp. SW also let patient and her daughters know that [facility] offers a lot of services. Patient's daughters stated patient does not comply with what the physician recommends. Per Amina patient does not have problem solving skills. Patient is supposed to be going to outpatient therapy at [facility], but she keeps canceling appts. SW listened and provided emotional support. Patient would not qualify for home health as she is not homebound. SW recommended family counseling and grief counseling for patient as her in December. Patient's daugthers state patient has been resistant to this in the past. Patient's PCP recommended patient have a psych evaluation. SW provided them with a list of psychologists in the area that take patient's insurance. Unfortunately SW nor her daughters are able to make patient do anything. Since the conversation between patient and her daughters was unproductive and per them it is always this way maybe the daughters should step back. SW also recommended talking with [facility] as they can assist with a lot. They thanked HOWIE for listening. Erna Washington MSW BECKY
[2023-06-28 14:30] VITALS: BP 137/72; PULSE 78; RESP 14; TEMP 36.2; O2SAT 96
--- NOTE | 2023-06-28 15:17 | PCM.DC.SUM ---
Providers Date of Admission: 06/26/23 Date of Discharge: 06/28/23 Primary Care Physician: Dr. Vikram Segura MD Reason For Visit: FALL, DEBILITY, ADULT FTT Diagnosis Discharge Diagnosis (1) Head injury: Status: Acute Code(s): S09.90XA - Unspecified injury of head, initial encounter (2) Laceration of head: Status: Acute Code(s): S01.91XA - Laceration without foreign body of unspecified part of head, initial encounter Plan #Debility due to recurrent mechanical fall with right periorbital hematoma Patient has been falling frequently at home. 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 PT OT on board. Fall precautions. ED discussed with orthopedic surgery and they reviewed her images of her knees done and felt there was no fracture. Currently has a right knee immobilizer in place. Fall precautions. #History of TIA: On aspirin and Plavix. #History of syncope: Has not had syncope recently. Has a loop recorder in place. Follow-up with cardiology on outpatient basis. #History of Alzheimer's dementia:stable #Hypertension: On valsartan and hydrochlorothiazide as well as amlodipine. IV hydralazine as needed. #Anxiety and depression: On mirtazapine and trazodone as well as doxepin. #COPD: Not in exacerbation. Breathing treatments and bronchodilators. #History of breast cancer: S/p lumpectomy. Has a history of right ductal carcinoma. Stable. Follow-up with oncology on outpatient basis as needed. #ZONIA: Unable to tolerate CPAP or BiPAP. On oxygen as needed. DVT prophylaxis: Lovenox CODE STATUS: DNR CCA. Disposition: Will benefit from placement. Case management on board. PT OT on board. Medications at Discharge Home Medications aspirin 81 mg chewable tablet 81 mg PO BREAKFAST #0 tabs 06/15/22 clopidogrel 75 mg tablet 75 mg PO DAILY #30 tabs 06/15/22 mirtazapine 15 mg tablet 7.5 mg PO DAILY 10/16/22 pantoprazole 40 mg tablet,delayed release 40 mg PO DAILY 10/16/22 pramipexole 1.5 mg tablet 1.5 mg PO DAILY 10/16/22 valsartan 320 mg-hydrochlorothiazide 25 mg tablet 1 tab PO DAILY 10/16/22 atorvastatin 40 mg tablet 40 mg PO QHS 04/28/23 chlorpheniramine maleate 4 mg tablet (Allergy (chlorpheniramine)) 4 mg PO QHS 04/28/23 memantine 10 mg tablet 10 mg PO DAILY 04/28/23 trazodone 50 mg tablet 50 mg PO QHS 04/28/23 amlodipine 5 mg tablet 5 mg PO DAILY 06/11/23 albuterol sulfate 90 mcg/actuation aerosol inhaler (Ventolin HFA) 1 - 2 puff inhalation Q4H PRN PRN Wheezing ##1 06/26/23 doxepin 10 mg capsule 10 mg PO QHS 06/26/23 furosemide 20 mg tablet 20 mg PO DAILY #5 tabs 06/26/23 potassium chloride 20 mEq/15 mL oral liquid 20 meq PO BID 06/26/23 Hospital Course Operations None Procedures None Summary of Care Provided Minutes Spent on Discharge: 45 Hospital Course: Patient is an 83 y/o female with a PMH as outlined including syncope with loop recorder in place. She was admitted via [facility] ED on 06/26/2023 with a complaint of mechanical fall on the day of admission. She initially came to the ED, and was discharged home. However on getting home she said her right knee gave out, and she fell again. Family was concerned about her ability to care for herself, so she was brought in to the ED. CT of e brain showed a small right occipital scalp hematoma with no acute intracranial findings. CT of the cervical spine showed no acute fracture or subluxation with generative disc disease with straightening of hte normal enthesophyte vs nondisplaced fracture or subluxation with degenerative disc disease with straightning of the normal lordotic curvture, plain film of hte right knee with an effusion, and Ct of hte right knee with irregular radiolucency in the inferior pole of the patella. Orthopedic surgery reviewed the images with the ED and didnt think this was a fracture. She was admitted and managed for debility due to mechanical fall. PT/OT was consulted and she was placed on pain meds. She worked well with physical therapy. Patient adamantly refused to go to a SNF. She was discharged home on 06/28/2023 with home health care. She is to follow up with her PCP within 1-2 weeks. Patient seen and examined prior to discharge. She had no active complaints and felt well. She had no active complaints. Review of systems is otherwise negative. Labs and vitals reviewed. Home meds reviewed and reconciled. Physical Exam Const alert, oriented x3 and no apparent distress General Appearance: cooperative, comfortable, well kempt and well developed HEENT normocephalic, head/scalp atraumatic, hearing grossly normal bilaterally and moist oral mucous membranes Mouth: oral and palatal mucosa normal Neck no lymphadenopathy and supple Lymph Lymphatic: no lymphadenopathy noted and no lymphedema noted Resp normal respiratory effort, normal air movement and clear to auscultation bilaterally Cardio regular rate, regular rhythm, S1 normal heart sound, S2 normal heart sound and no murmurs GI normal to inspection, nondistended, normoactive bowel sounds, soft to palpation, non-tender and non-distended Extremity normal to inspection, full ROM, normal capillary refill, no clubbing, cyanosis or edema and no calf tenderness Skin no rashes or lesions noted Skin Narrative: resolving right periorbital hematoma due to mechanical fall Neuro oriented x3, CN's II-XII intact bilaterally, moves all extremities, no focal motor deficits, no sensory deficits noted and deep tendon reflexes 2+ bilaterally Sensorium / Orientation: awake and alert Motor Exam: strength 5/5 throughout and general weakness Psych thought process normal, cooperative and affect normal Appearance: appropriate Weight / BMI Weight Weight: 130 lb 15.273 oz Body Mass Index (BMI) 23.1 ABG / Lab / Microbiology Data 06/28/23 02:45 06/28/23 02:45 Laboratory: Laboratory Results - last 24 hr 06/28/23 02:45: WBC 6.0, RBC 4.05 L, Hgb 11.0 L, Hct 34.9 L, MCV 86.2, MCH 27.2, MCHC 31.5 L, RDW Std Deviation 47.4 H, RDW Coeff of Kierra 14.9 H, Plt Count 246, MPV 10.3, Immature Gran % (Auto) 0.300, Neut % (Auto) 60.7, Lymph % (Auto) 18.9 L, Tyrrell % (Auto) 15.1 H, Eos % (Auto) 3.8, Baso % (Auto) 1.2 H, Absolute Neuts (auto) 3.7, Absolute Lymphs (auto) 1.14, Nucleated RBC % 0, Sodium 138, Potassium 4.7, Chloride 109 H, Carbon Dioxide 23.0, Anion Gap 6, BUN 18, Creatinine 1.05 H, Estim Creat Clear Calc 33.58, Est GFR (MDRD) Af Amer 64, Est GFR (MDRD) Non-Af 53 L, BUN/Creatinine Ratio 17.1, Glucose 98, Calcium 8.9 D/C Instructions Discharge Diet: Low fat / Low cholesterol Discharge Activity: Return to Normal Activity Weight Bearing Status: Weight bearing as tolerated Call your doctor if you observe: Fever of 101 or Higher, Shortness of breath, Dizziness, Swelling in the ankles, Chest pain, Increased palpitations (irregular heartbeat) and - (frequent falls) Meaningful Use Info Meaningful Use Diagnoses (Choose all that apply): None applicable Discharge Plan Admission Admit Date/Time: 06/26/23 21:08 Primary Reason for Your Visit: debility, mechanical falls Attending Provider: Bernadette Javier Primary Care Provider: Vikram Segura Consulting Providers: Emily Verdugo Instructions Patient Instructions: ED Mechanical Fall Discharge Orders/Prescriptions Prescriptions: Continued aspirin 81 mg Tablet,Chewable 81 mg PO BREAKFAST Qty: 0 0RF clopidogrel 75 mg Tablet 75 mg PO DAILY Qty: 30 0RF mirtazapine 15 mg tablet 7.5 mg PO DAILY Patient Comments: TAKE 1/2 TO 1 (ONE-HALF TO ONE) TABLET BY MOUTH AT BEDTIME pantoprazole 40 mg tablet,delayed release (DR/EC) 40 mg PO DAILY pramipexole 1.5 mg tablet 1.5 mg PO DAILY Patient Comments: TAKE 1 TABLET 2 TO 3 HOURS BEFORE BEDTIME FOR RESTLESS LEGS valsartan-hydrochlorothiazide 320-25 mg tablet 1 tab PO DAILY memantine 10 mg tablet 10 mg PO DAILY trazodone 50 mg tablet 50 mg PO QHS atorvastatin 40 mg tablet 40 mg PO QHS chlorpheniramine maleate [Allergy (chlorpheniramine)] 4 mg tablet 4 mg PO QHS amlodipine 5 mg tablet 5 mg PO DAILY albuterol sulfate [Ventolin HFA] 90 mcg/actuation HFA aerosol inhaler 1 - 2 puff inhalation Q4H PRN PRN (Reason: Wheezing) Qty: 1 0RF furosemide 20 mg tablet 20 mg PO DAILY Qty: 5 0RF doxepin 10 mg capsule 10 mg PO QHS potassium chloride 20 mEq/15 mL liquid 20 meq PO BID Referrals / Follow Up: Vikram Segura MD [Primary Care Provider] - Within 2 Weeks Disposition Disposition (needs filled in before D/C Order can be placed): Home Health Service Charges/Coding Visit Charges Inpatient E&M: 64091 Disch Hosp >30min
--- NOTE | 2023-06-29 13:22 | CASEMGMT ---
HOWIE sent patient's d/c instructions to Myrtle Srinivasan at [facility]. Erna PENA
== END 2023-06-28 15:40 | disposition home health service (06) ==
LOC: ED 21:04 → ICU 21:17
PROVIDERS: Admitting Provider Family Medicine; Emergency Provider Emergency Medicine; PCP Family Medicine; Visit Provider Student in an Organized Health Care Education/Training Program
DX: S01.91XA Laceration without foreign body of unspecified part of head, initial encounter (principal); G30.9 Alzheimer's disease, unspecified; F02.80 Dementia in other diseases classified elsewhere, unspecified severity, without behavioral disturbance, psychotic disturbance, mood disturbance, and anxiety; J44.9 Chronic obstructive pulmonary disease, unspecified; R53.81 Other malaise; Z79.82 Long term (current) use of aspirin; E78.00 Pure hypercholesterolemia, unspecified; W19.XXXA Unspecified fall, initial encounter; M25.461 Effusion, right knee; I10 Essential (primary) hypertension; R47.81 Slurred speech; R60.0 Localized edema; G47.33 Obstructive sleep apnea (adult) (pediatric); R06.00 Dyspnea, unspecified; K21.9 Gastro-esophageal reflux disease without esophagitis; Z87.891 Personal history of nicotine dependence; Z79.899 Other long term (current) drug therapy; Z86.16 Personal history of COVID-19; Z86.73 Personal history of transient ischemic attack (TIA), and cerebral infarction without residual deficits; F32.A Depression, unspecified; F41.9 Anxiety disorder, unspecified; Z79.02 Long term (current) use of antithrombotics/antiplatelets; Z23 Encounter for immunization
CPT/HCPCS: 12001; 70450; 71046; 72125; 73562; 73700; 80048; 80053; 81001; 83880; 84484; 85025; 85379; 93005; 94640; 94668; 94760; 97162; 97166; 97535; 97802; 99221; 99283; A4216; G0378

== ENCOUNTER → 2023-06-30 | Outpatient (CLI) | payer MEDICARE, MEDICAID, SELFPAY | END | disposition home or self-care (01) | LOC: PSN 12:43 | PROVIDERS: PCP Family Medicine; Referring Provider Family Medicine; Visit Provider Family Medicine | DX: R06.09 Other forms of dyspnea (principal) | CPT/HCPCS: 94060; 94726; 94729 ==

== ENCOUNTER → 2023-07-05 | Outpatient (CLI) | payer MEDICARE, MEDICAID, SELFPAY ==
--- NOTE | 2023-07-05 14:23 | RAD_ITS ---
STUDY: X-RAY - ABDOMEN/PELVIS REASON FOR EXAM: Female, 83 years old. Constipation. TECHNIQUE: Single AP view of the abdomen / pelvis on 2 images. COMPARISON: None. FINDINGS: Atelectasis/scarring at the left base. Normal bowel gas pattern with air seen to the rectum. Moderate to marked amount of feces in the colon. Contrast in diverticula in the projected over the left upper quadrant of the abdomen. Vein calcifications projected over the left kidney which may represent nephrocalcinosis. Abdominal outlines obscured by bowel gas and air. Phleboliths. Vascular calcification. Lower lumbosacral spondylosis with right total hip arthroplasty and moderate arthrosis of left hip. RAD/Abdomen Single View IMPRESSION: Probable left nephrocalcinosis. No acute abnormality identified. Electronically Signed: Quan Burns MD at 10:48 EDT ,
[2023-07-05 15:42] LABS: Absolute Lymphocyte Count 1.01 X10^3/uL (0.83-4.51); Absolute Neutrophil Count 4.1 X10^3/uL (2.0-7.7); Basophil# 0.07 X10^3/uL; Basophil% 1.2 % (0-1); Eosinophils% 1.7 % (0-5); Hematocrit 38.4 % (37-47); Lymphocyte # 1.01 X10^3/ul (0.83-4.51); Mean Corp Hgb Conc 31.3 g/dL (32-36); Mean Corpuscular Hgb 27.1 pg (27.0-32.0); Mean Corpuscular Volume 86.9 fL (81-99); Mean Platelet Vol. 10.6 fl (6.2-12.0); Monocyte% 11.8 % (0-10); NRBC Flagged by Analyzer 0 % (0-5); Neutrophil # 4.06 X10^3/uL (2.7-7.7); Neutrophil % 68.1 % (47-70); Platelet Count 303 K/mm3 (150-450); RBC Distribution Width CV 14.6 % (11.6-14.6); RBC Distribution Width SD 46.6 fl (35.1-43.9); Red Blood Count 4.42 M/mm3 (4.2-5.4)
[2023-07-05 16:33] LABS: AST(SGOT) 18 U/L (15-37); Alanine Aminotransfer ALT/SGPT 19 U/L (13-56); Alkaline Phosphatase 100 U/L (45-117); Anion Gap 9 (5-15); BUN 13 mg/dL (7-18); BUN/Creat Ratio 18.1 RATIO (10-20); Calcium,Total 9.7 mg/dL (8.5-10.1); Chloride 103 mmol/L (98-107); Creatinine, Serum 0.72 mg/dL (0.55-1.02); EST Glomerular Filtration Rate 82 mL/min (>60); Est Glom Filt Rate - Afr Amer 100 mL/min (>60); Globulin 3.9 g/dL (2.2-4.2); Glucose 98 mg/dL (74-106); Potassium 3.7 mmol/L (3.5-5.1); Protein, Total 7.9 g/dL (6.4-8.2); Sodium Level 136 mmol/L (136-145)
== END | disposition home or self-care (01) ==
LOC: MTLAB 14:21
PROVIDERS: PCP Family Medicine; Referring Provider Family Medicine; Visit Provider Family Medicine
DX: S80.01XA Contusion of right knee, initial encounter (principal); S80.11XA Contusion of right lower leg, initial encounter
CPT/HCPCS: 36415; 74018; 80053; 85025

== ENCOUNTER → 2023-07-19 | Outpatient (CLI) | payer MEDICARE, MEDICAID, SELFPAY ==
--- NOTE | 2023-07-19 12:45 | ECHOD_ITS ---
Reason For Study: DYSPNEA Procedure This was a 2D Doppler, Color Flow transthoracic echocardiogram. Exam performed in department. Left Ventricle Normal LV size. Moderate concentric left ventricular hypertrophy. The left ventricular ejection fraction is 70 %. Diastolic function is indeterminate. Right Ventricle Normal right ventricle. Atria The left and right atria are normal. Mitral Valve Trivial mitral valve insufficiency. Tricuspid Valve Trivial tricuspid valve insufficiency. Right ventricular systolic pressure estimated to be 38 mmHg. Aortic Valve Trisinus/trileaflet aortic valve. Aortic sclerosis, no stenosis. Pulmonic Valve The pulmonic valve is not well visualized. Great Vessels Normal sized aortic root. Pericardium/Pleural No pericardial effusion. MMode/2D Measurements & Calculations LVIDd: 2.9 cm IVSd: 1.4 cm Ao root diam: 2.8 cm LVIDs: 2.7 cm LVPWd: 1.3 cm LA dimension: 3.6 cm RVDd: 2.8 cm FS: 6.9 % LAV(MOD-bp): 38.2 ml LVAd ap4: 21.3 cm2 SV(MOD-sp4): 36.7 ml LAV(MOD-bp) Indexed: 23.7 ml/m2 LVLd ap4: 6.9 cm LAV(MOD-sp2): 49.4 ml EDV(MOD-sp4): 54.6 ml LAV(MOD-sp4): 30.3 ml EDV(sp4-el): 55.7 ml LVAs ap4: 10.7 cm2 LVLs ap4: 5.8 cm ESV(MOD-sp4): 18.0 ml ESV(sp4-el): 17.0 ml EF(MOD-sp4): 67.1 % EF(sp4-el): 69.5 % SV(sp4-el): 38.7 ml LA A4 area: 12.9 cm2 LA dimension(2D): 3.4 cm RA A4 area: 11.3 cm2 TAPSE: 1.7 cm Time Measurements MV dec time: 0.26 sec Doppler Measurements & Calculations MV E max estevan: 54.8 cm/sec Lat Peak E' Estevan: 5.5 cm/sec Med Peak E' Estevan: 5.8 cm/sec MV A max estevan: 76.5 cm/sec E/E' lat: 10.0 E/E' med: 9.5 MV E/A: 0.72 MV V2 max: 111.6 cm/sec MV P1/2t max estevan: 58.0 cm/sec Ao V2 max: 128.4 cm/sec MV max P.0 mmHg MV P1/2t: 62.6 msec Ao max P.6 mmHg MV V2 mean: 51.1 cm/sec Ao V2 mean: 91.3 cm/sec MV mean P.3 mmHg MV dec slope: 271.7 cm/sec2 Ao mean P.6 mmHg MV V2 VTI: 18.5 cm MVA(P1/2t): 3.5 cm2 Ao V2 VTI: 26.2 cm AV (velocity ratio): 0.85 LV V1 max: 103.4 cm/sec PA V2 max: 87.6 cm/sec TR max estevan: 274.7 cm/sec LV V1 max P.3 mmHg PA V2 mean: 58.9 cm/sec TR max P.2 mmHg LV V1 mean P.3 mmHg LV V1 mean: 72.3 cm/sec LV V1 VTI: 22.2 cm ECHO/Echo Complete Interpretation Summary Moderate concentric left ventricular hypertrophy. The left ventricular ejection fraction is 70 %. Diastolic function is indeterminate. Right ventricular systolic pressure estimated to be 38 mmHg. Aortic sclerosis, no stenosis. Ordering Physician: Vikram Segura Referring Physician: Vikram Segura Performed By: Nuvia Barney, DEMETRI, RVT
== END | disposition home or self-care (01) ==
LOC: CVS 12:41
PROVIDERS: PCP Family Medicine; Referring Provider Family Medicine; Visit Provider Family Medicine
DX: R06.09 Other forms of dyspnea (principal); M79.89 Other specified soft tissue disorders
CPT/HCPCS: 93306

== ENCOUNTER 2023-07-24 12:20 | Emergency (ER) | payer MEDICARE, MEDICAID, SELFPAY ==
[2023-07-24 12:22] VITALS: BP 177/74; PULSE 81; RESP 14; TEMP 36.4; O2SAT 98; BMI 23.0
--- NOTE | 2023-07-24 12:36 | EKG12_ITS ---
Test Reason : Blood Pressure : / mmHG Vent. Rate : 063 BPM Atrial Rate : 063 BPM P-R Int : 152 ms QRS Dur : 078 ms QT Int : 410 ms P-R-T Axes : 036 005 017 degrees QTc Int : 419 ms Normal sinus rhythm Nonspecific ST abnormality Abnormal ECG Confirmed by Nick Cobos ([id number]), editorial intern MIKKI BENNETT ([id number]) on 07/25/2023 11:08:13 AM Referred By: Confirmed By:Nick Cobos
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
[2023-07-24 13:21] VITALS: BP 146/61; PULSE 78; RESP 16; TEMP 36.4; O2SAT 99
--- NOTE | 2023-07-24 13:39 | ED.RN ---
went in to d/c pt. daughters express concern for pt going home and visiting er so much, they are concerned pt. cannot take motrin. and asked about if there was a drug abuse social worker here today. dr. palacio in to re-see
== END 2023-07-24 13:57 | disposition home or self-care (01) ==
PROVIDERS: Emergency Provider Emergency Medicine; PCP Family Medicine; Visit Provider Emergency Medicine
DX: S29.9XXA Unspecified injury of thorax, initial encounter (principal); F03.90 Unspecified dementia, unspecified severity, without behavioral disturbance, psychotic disturbance, mood disturbance, and anxiety; J44.9 Chronic obstructive pulmonary disease, unspecified; G47.33 Obstructive sleep apnea (adult) (pediatric); V43.52XA Car driver injured in collision with other type car in traffic accident, initial encounter; Z86.16 Personal history of COVID-19; Z86.73 Personal history of transient ischemic attack (TIA), and cerebral infarction without residual deficits; Z87.891 Personal history of nicotine dependence
CPT/HCPCS: 71046; 93005; 99282

== ENCOUNTER 2023-08-20 10:00 | Emergency (ER) | payer MEDICARE, MEDICAID, SELFPAY ==
[2023-08-20 10:02] VITALS: BP 189/89; PULSE 81; RESP 16; TEMP 35.7; O2SAT 97; BMI 21.9
--- NOTE | 2023-08-20 10:29 | EX.ED.DYSGE1 ---
HPI History of Present Illness Chief Complaint: Constipation Informant: patient Onset/Context/Timing Onset: Days Narrative Narrative: Patient presents secondary to constipation. She states she has not had a bowel movement in roughly 10 days. She is passing some gas. She has seen her PCP for this recently. She was placed on docusate and was given some samples of Linzess. She states the Linzess helped while she was taking it, but she is out of it. Patient complains primarily of back pain. No urinary symptoms. 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 Essential hypertension Fall GERD (gastroesophageal reflux disease) GI bleed Head injury History of CVA in adulthood History of dementia History of GI bleed Hypercholesterolemia Hypertensive emergency without congestive heart failure Hypothyroidism Inability to ambulate due to knee Laceration of head ZONIA (obstructive sleep apnea) Recurrent episodes of unresponsiveness TIA (transient ischemic attack) Vitamin D deficiency Home Medications aspirin 81 mg chewable tablet 81 mg PO BREAKFAST #0 tabs 06/15/22 [Rx Last Taken Unknown] clopidogrel 75 mg tablet 75 mg PO DAILY #30 tabs 06/15/22 [Rx Last Taken Unknown] mirtazapine 15 mg tablet 7.5 mg PO DAILY 10/16/22 [History Last Taken Unknown] pantoprazole 40 mg tablet,delayed release 40 mg PO DAILY 10/16/22 [History Last Taken Unknown] pramipexole 1.5 mg tablet 1.5 mg PO DAILY 10/16/22 [History Last Taken Unknown] valsartan 320 mg-hydrochlorothiazide 25 mg tablet 1 tab PO DAILY 10/16/22 [History Last Taken Unknown] atorvastatin 40 mg tablet 40 mg PO QHS 04/28/23 [History Last Taken Unknown] chlorpheniramine maleate 4 mg tablet (Allergy (chlorpheniramine)) 4 mg PO QHS 04/28/23 [History Last Taken Unknown] memantine 10 mg tablet 10 mg PO DAILY 04/28/23 [History Last Taken Unknown] trazodone 50 mg tablet 50 mg PO QHS 04/28/23 [History Last Taken Unknown] amlodipine 5 mg tablet 5 mg PO DAILY 06/11/23 [History Last Taken Unknown] albuterol sulfate 90 mcg/actuation aerosol inhaler (Ventolin HFA) 1 - 2 puff inhalation Q4H PRN PRN Wheezing ##1 06/26/23 [Rx Last Taken Unknown] doxepin 10 mg capsule 10 mg PO QHS 06/26/23 [History Last Taken Unknown] furosemide 20 mg tablet 20 mg PO DAILY #5 tabs 06/26/23 [Rx Last Taken Unknown] potassium chloride 20 mEq/15 mL oral liquid 20 meq PO BID 06/26/23 [History Last Taken Unknown] Allergy/AdvReac Type Severity Reaction Status Date / Time lisinopril Allergy Mild cough Verified 08/20/23 10:02 alendronate sodium Allergy Unknown unknown Verified 08/20/23 10:02 [From Fosamax] Sulfa (Sulfonamide Allergy Rash Verified 08/20/23 10:02 Antibiotics) atorvastatin [From Lipitor] AdvReac Mild muscle Verified 08/20/23 10:02 aches rosuvastatin [From Crestor] AdvReac Mild muscle Verified 08/20/23 10:02 aches codeine AdvReac Nausea Verified 08/20/23 10:02 NSAIDS (Non-Steroidal AdvReac Bleeding Verified 08/20/23 10:02 Anti-Inflamma Family History Mother Heart disease CVA (cerebral vascular accident) Father Heart disease Surgical History History of hysterectomy History of left mastoidectomy History of lumpectomy of right breast History of right hip replacement History of thyroid surgery Status post placement of implantable loop recorder (11/08/22) Social History household members: spouse Smoking Status: Former smoker how long ago did patient quit smoking: Quit ~ 24-25 years prior. alcohol intake: current alcohol intake frequency: a few times a month details: 1 drink/[place] nightly. substance use type: other details: Given THC chew per her family for sleep but prior no substance use. ROS ROS ED Constitutional Constitutional ED: Denies chills or fever(s) Eyes Eyes: Denies discharge from eye(s) ENT ENT ED: Denies discharge from eye(s), rhinorrhea or sore throat Cardiovascular Cardiovascular: Denies chest pain or palpitations Respiratory/Chest Respiratory/Chest: Denies cough or dyspnea Gastrointestinal Gastrointestinal: Reports abdominal pain, constipation and nausea; Denies diarrhea or vomiting Genitourinary Genitourinary ED: Denies dysuria or urinary frequency Musculoskeletal Musculoskeletal: Reports back pain; Denies extremity pain Integumentary Denies Abrasions or rash Neurologic Neurologic: Denies headache(s) or weakness Psychiatric Psychiatric: Denies anxiety or depression Allergic/Immunologic Allergic/Immunologic ED: Denies lip swelling or urticaria EXAM Physical Exam Const Vital Signs: 08/20/23 10:02 Temperature 96.2 F L Temperature Source Temporal Pulse Rate 81 Respiratory Rate 16 Blood Pressure 189/89 H Blood Pressure Mean 122 Pulse Ox 97 Oxygen Delivery Method Room Air Positive well nourished and well developed General Appearance ED: well developed HEENT Reports moist mucous membranes Eyes EOMs intact bilaterally Chest Wall inspection of chest normal and palpation of chest normal Resp normal respiratory effort and clear to auscultation bilaterally Cardio regular rate and regular rhythm GI GI Narrative: Abdomen soft with no focal tenderness. Active bowel sounds noted throughout. Extremity normal to inspection Neuro oriented x3 and no sensory deficits noted Motor Exam: strength 5/5 throughout Psych mental status grossly normal Skin no rashes or lesions noted MDM MDM MDM Narrative Medical decision making narrative: Abdominal x-ray obtained to evaluate for bowel gas pattern, signs of obstruction. History & Record Review Discussion w/independent historian: Patient Radiography Diagnostic Testing: Clinical Impression(s) from Imaging Studies KUB X-Ray 08/20/23 10:35 IMPRESSION: Non-obstructive bowel gas pattern. Moderate stool in the colon. Electronically Signed: Anushka Butts MD at 10:50 EDT Reading Location ID and State: [facility] / [place] Tel , Service support , Treatment and Re-Evaluation :: Abdominal x-ray per my interpretation reveals no evidence of bowel obstruction with diffuse stool. Soapsuds enema was performed. She did have moderate results. At this time she does report that her back pressure is improved. She will be discharged home to continue her current regimen. I will give her instructions that if she does not feel improved over the next 3 to 4 days, she can get magnesium citrate [id number] and use this as well. Return instructions provided. Discharge Plan Triage Chief Complaint: Constipation ED Provider: Genny Worley Dx/Rx/DC Orders Clinical Impression: Constipation Instructions: ED Constipation (Adult) Prescriptions: No Action aspirin 81 mg Tablet,Chewable 81 mg PO BREAKFAST Qty: 0 0RF clopidogrel 75 mg Tablet 75 mg PO DAILY Qty: 30 0RF mirtazapine 15 mg tablet 7.5 mg PO DAILY Patient Comments: TAKE 1/2 TO 1 (ONE-HALF TO ONE) TABLET BY MOUTH AT BEDTIME pantoprazole 40 mg tablet,delayed release (DR/EC) 40 mg PO DAILY pramipexole 1.5 mg tablet 1.5 mg PO DAILY Patient Comments: TAKE 1 TABLET 2 TO 3 HOURS BEFORE BEDTIME FOR RESTLESS LEGS valsartan-hydrochlorothiazide 320-25 mg tablet 1 tab PO DAILY memantine 10 mg tablet 10 mg PO DAILY trazodone 50 mg tablet 50 mg PO QHS atorvastatin 40 mg tablet 40 mg PO QHS chlorpheniramine maleate [Allergy (chlorpheniramine)] 4 mg tablet 4 mg PO QHS amlodipine 5 mg tablet 5 mg PO DAILY albuterol sulfate [Ventolin HFA] 90 mcg/actuation HFA aerosol inhaler 1 - 2 puff inhalation Q4H PRN PRN (Reason: Wheezing) Qty: 1 0RF furosemide 20 mg tablet 20 mg PO DAILY Qty: 5 0RF doxepin 10 mg capsule 10 mg PO QHS potassium chloride 20 mEq/15 mL liquid 20 meq PO BID Primary Care Provider: Vikram Segura Referrals: Vikram Segura MD [Primary Care Provider] - 1-2 Weeks Activity Restrictions/Additional Instructions: If you are not having regular bowel movements over the next 3 to 4 days, you can get a bottle of magnesium citrate [id number] at the store. You can drink half the bottle and wait 4 to 5 hours. If you have not started having bowel movements at this time you can drink the remainder of the bottle. Disposition Disposition: Home, Self Care
--- NOTE | 2023-08-20 10:35 | RAD_ITS ---
HISTORY: constipation. TECHNIQUE: XR Abdomen 1 View. COMPARISON: 07/05/2023. FINDINGS: BOWEL GAS PATTERN: No dilated small bowel loops identified. Moderate stool throughout the colon. FREE AIR: Not assessed on supine view. CALCIFICATIONS: Small left upper quadrant calcifications again seen, possible renal calculi. BONES: Chronic loss of height at L1. Degenerative changes of the lumbar spine. Right hip arthroplasty in place. Advanced osteoarthritis of the left hip. RAD/Abdomen Single View IMPRESSION: Non-obstructive bowel gas pattern. Moderate stool in the colon. Electronically Signed: Anushka Butts MD at 10:50 EDT ,
== END 2023-08-20 12:22 | disposition home or self-care (01) ==
PROVIDERS: Emergency Provider Emergency Medicine; PCP Family Medicine; Visit Provider Emergency Medicine
DX: K59.00 Constipation, unspecified (principal); J44.9 Chronic obstructive pulmonary disease, unspecified; G47.33 Obstructive sleep apnea (adult) (pediatric); Z87.891 Personal history of nicotine dependence; Z86.73 Personal history of transient ischemic attack (TIA), and cerebral infarction without residual deficits; Z86.16 Personal history of COVID-19
CPT/HCPCS: 74018; 99284

== ENCOUNTER → 2023-08-31 | Outpatient (CLI) | payer MEDICARE, MEDICAID, SELFPAY ==
[2023-08-31 15:17] LABS: Absolute Lymphocyte Count 0.44 X10^3/uL (0.83-4.51); Absolute Neutrophil Count 6.7 X10^3/uL (2.0-7.7); Basophil# 0.03 X10^3/uL; Basophil% 0.4 % (0-1); Eosinophil# 0.01 X10^3/uL; Eosinophils% 0.1 % (0-5); Hematocrit 40.5 % (37-47); Hemoglobin 12.7 g/dL (12.0-15.0); Lymphocyte # 0.44 X10^3/ul (0.83-4.51); Mean Corp Hgb Conc 31.4 g/dL (32-36); Mean Corpuscular Hgb 26.8 pg (27.0-32.0); Mean Corpuscular Volume 85.4 fL (81-99); Mean Platelet Vol. 9.4 fl (6.2-12.0); Monocyte# 0.11 X10^3/uL; Monocyte% 1.5 % (0-10); NRBC Flagged by Analyzer 0 % (0-5); Neutrophil # 6.73 X10^3/uL (2.7-7.7); Neutrophil % 91.3 % (47-70); POSITIVE DIFFERENTIAL YES; Platelet Count 323 K/mm3 (150-450); RBC Distribution Width CV 15.9 % (11.6-14.6); RBC Distribution Width SD 48.8 fl (35.1-43.9); Red Blood Count 4.74 M/mm3 (4.2-5.4); White Blood Count 7.4 K/mm3 (4.4-11.0)
[2023-08-31 15:49] LABS: BNP,B-Type NATRIURETIC PEPTIDE 34.5 pg/mL (0-100)
[2023-08-31 15:55] LABS: Anion Gap 5 (5-15); BUN 20 mg/dL (7-18); Calcium,Total 10.2 mg/dL (8.5-10.1); Chloride 101 mmol/L (98-107); Creatinine, Serum 0.87 mg/dL (0.55-1.02); EST Glomerular Filtration Rate 66 mL/min (>60); Est Glom Filt Rate - Afr Amer 80 mL/min (>60); Glucose 136 mg/dL (74-106); Potassium 4.3 mmol/L (3.5-5.1); Sodium Level 131 mmol/L (136-145); Thyroid Stim Hormone (TSH) 0.35 uIU/mL (0.358-3.74)
== END | disposition home or self-care (01) ==
LOC: LAB 14:21
PROVIDERS: PCP Family Medicine; Referring Provider Physician Assistant Medical; Visit Provider Physician Assistant Medical
DX: I10 Essential (primary) hypertension (principal); E78.00 Pure hypercholesterolemia, unspecified; R53.83 Other fatigue; R06.09 Other forms of dyspnea; Z95.818 Presence of other cardiac implants and grafts
CPT/HCPCS: 36415; 80048; 83880; 84443; 85025

== ENCOUNTER 2023-10-28 14:30 | Outpatient (RCR) | payer MEDICARE, MEDICAID, SELFPAY ==
--- NOTE | 2023-04-19 16:57 | HP.PTEVAL_ITS ---
Patient's Visit Information Visit Information Visit Information: XAVIER RAHMAN is a 82 year old F referred to Physical Therapy by Dr. Vikram Segura MD with a diagnosis of Gait instability. Date of Evaluation: 04/19/23 Physical Therapist: Vikram Hodge, DPT, OCS, CSCS Visit Plan Frequency: 3x /Week Duration: 4 Weeks Plan: 3x/week for 4 weeks for 1. teach FW weight shift exercises including get up off floor, sit to stand, FW weight shift, stepa and recover, step ups with FW weight shift. To I 2. Teach gym based LE, core adn postural exercises to I Subjective Subjective: Balance is no good and has not been. Tried to do therapy last year but copay was high. Home exercises did not help. I lose my balance alot and fall sometimes. Reaching up can send her backwards, turning too fast can make her lose balance. Has not fallen in last 3 months. Has life alert. Uses cane and has for a year. Does not use it at home but when out and about. has hi story of broken ribs and concussion with fall. That was a year ago. Tried HEP last year due to high co pay, but they did not help. No pain, has insomnia for last year and a half. 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 Spends day getting out of house at [employer], Has to avoid working in yard as getting up off the ground is tough. Balance and strength makes it tough to get back up. Used to workout at 2 yrs ago before covid. Currently not on any regular exercises now but occasional desk pedal. Objective Objective: Walks with cane/ski pole into PT mod I. Trasnfers requiring UE to lift due to lack of FW weight shifts. Can do exit from chair strength moreno but does not have forward weight shift. coordination LE to reciprocal to and heel tap is good. core weakness with hip flexion test reflexes 2/3 patella and achilles Sensation LE WNL to gross light otuch. Able to heel ote raise but avoids FW weight shift consistently. strength ankles 4+, knees 4, hips 4- and core 3+. Balance/Special Test Scores Functional Gait Assessment Score: 23 % Disability: 23.3400 CATSIB Score (Max score 120 seconds): 120 Lower Extremity Functional Score: 54 TUG Test Time Seconds: 10 30 Second Chair Rise Test Seconds: 13 Goals Goal 1:: exit chair 5x easily without UE usage Goal Time Frame: 4-6 Weeks Goal 2:: I appropriate HEP to limit future strength balance problems including Fw weight shift and general gym strength./get off floor. Goal Time Frame: 4-6 Weeks Goal 3:: 30 second sit to stand without UE Goal Time Frame: 4-6 Weeks Goal 4:: Pt feel 75% improved in ability to maintain balance and get up off floor for gardening. Goal Time Frame: 4-6 Weeks Rehabilitation Potential Physical Therapy Diagnosis: lacking FW weight shift leading to balance instability and poor funcitonal mobility. Rehabilitation Potential: Fair Anticipated Interventions Patient/Client Instruction: Educate patient on: Condition For the Purpose of:: To improve muscle performance and motor function, To increase tolerance to activity/condition/position, To improve ability of physical actions for home/community/work/leisure and To improve gait and locomotor functions Therapeutic Exercise to Include: Strength training, Gait and locomotor training and Neuromotor development For the Purpose of:: To improve muscle performance and motor function, To in crease tolerance to activity/condition/position, To improve ability of physical actions for home/community/work/leisure, To improve gait and locomotor functions and To improve balance Text: Thank you for the opportunity to evaluate your patient. For Medicare and Medicare HMO plans, please review the plan of care and approve it. It will need to be FAXED BACK to us at [phone] for Medicare purposes. For Medicare only, by signing this I certify the plan of care. Please let me know if there are questions or concerns regarding this plan of care. Physician Signature: Date:
--- NOTE | 2023-07-15 13:15 | HP.PTREVAL ---
Re-Evaluation Intro: Dr. Vikram Segura MD, It has been my pleasure to treat XAVIER RAHMAN over the last 10 visits for Gait instability. Please see the progress note below for an update on the physical therapy plan of care! Subjective Subjective: Pt reports she was in the hospital one week ago secondary to falling. Pt reports no significant injuries other than a facial contusion, scalp lesion, and mild concussion. this was the only fall in the past couple months. Objective Objective/Function: sit to stand: Able to perform 6 reps in 30 sec using B UE's Transfer sit to stand: 0 reps without the use of B UE's FGA with cane in hand (not using): Pt is showing progress, but lacks functional safe balance and displays gross weakness which impairs transfer ability Plan Plan Plan: Continue with primary focus on LE strengthening, balance, and gait stability Balance/Gait/Functional tests Balance/Special Test Scores Functional Gait Assessment Score: 18 % Disability: 40.0000 CATSIB Score (Max score 120 seconds): 120 Lower Extremity Functional Score: 37 TUG Test Time Seconds: 9.08 Tug Test: <10 sec.=free mobile 30 Second Chair Rise Test Seconds: 7 Goals Goals Goal 1:: exit chair 5x easily without UE usage Goal Time Frame: 4-6 Weeks Goal Progress: Not Progressing Goal 2:: I appropriate HEP to limit future strength balance problems including Fw weight shift and general gym strength./get off floor. Goal Time Frame: 4-6 Weeks Goal Progress: Progressing Goal 3:: 30 second sit to stand without UE x 10 repetitions Goal Time Frame: 4-6 Weeks Goal Progress: New goal with reps Goal 4:: Pt feel 75% improved in ability to maintain balance and get up off floor for gardening. Goal Time Frame: 4-6 Weeks Goal Progress: Progressing Goal 5:: Increase FGA score by 3 points to aid with preventing future falls Goal Time Frame: 4-6 Weeks Goal Progress: New goal Anticipated Interventions Anticipated Interventions Patient/Client Instruction: Educate patient on: Condition For the Purpose of:: To improve muscle performance and motor function, To increase tolerance to activity/condition/position, To improve ability of physical actions for home/community/work/leisure and To improve gait and locomotor functions Therapeutic Exercise to Include: Strength training, Gait and locomotor training and Neuromotor development For the Purpose of:: To improve muscle performance and motor function, To increase tolerance to activity/condition/position, To improve ability of physical actions for home/community/work/leisure, To improve gait and locomotor functions and To improve balance Re-Evaluation Ending Re-evaluation ending: Please do not hesitate to contact me at [phone] by phone or if you have questions or concerns regarding this new plan of care! Sincerely, Rufino Cassidy, PT, ATC
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
--- NOTE | 2023-10-19 15:49 | HP.PTREVAL_ITS ---
Re-Evaluation Intro: Dr. Vikram Segura MD, It has been my pleasure to treat XAVIER RAHMAN over the last 20 visits for Gait instability. Please see the progress note below for an update on the physical therapy plan of care! Subjective Subjective: I get lightheaded, maybe due to blood pressure. It is always up and down, doctor is aware. Cut some HTN meds when had low blood pressure and now goes. Balance is better, does not need stick at home but uses it away from home. No falls. Feels steadier. Activities are normal at home, steps require both hands on monitor. Objective Objective/Function: lacks FW weight shift sit to stand and steps until cued. Walking well with improved overall balance and 30 SSTS but not getting great improvement lately, noncompliant with HEP but seem motivated to work out in gy, Up and down lightheaded ness that she addresses with her doctor. Plan Plan Plan: 2 more visits to gain I with gym ex than will have friend bring her 2x/week for machines strength, make sure she has list and gains I or let therapist know. Balance/Gait/Functional tests Balance/Special Test Scores Functional Gait Assessment Score: 23 % Disability: 23.3400 CATSIB Score (Max score 120 seconds): 120 Lower Extremity Functional Score: 57 TUG Test Time Seconds: 9.08 Tug Test: <10 sec.=free mobile 30 Second Chair Rise Test Seconds: 14 Goals Goals Goal 1:: exit chair 5x easily without UE usage Goal Time Frame: 4-6 Weeks Goal Progress: Goal Met Goal 2:: I appropriate HEP to limit future strength balance problems including Fw weight shift and general gym strength./get off floor. Goal Time Frame: 4-6 Weeks Goal Progress: non compliant Goal 3:: 30 second sit to stand without UE x 10 repetitions Goal Time Frame: 4-6 Weeks Goal Progress: Goal Met Goal 4:: Pt feel 75% improved in ability to maintain balance and get up off fl oor for gardening. 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 trasnfer off floor with support I descend steps with good eccentric control and one rail Goal Time Frame: 4-6 Weeks Goal Progress: Progressing Anticipated Interventions Anticipated Interventions Patient/Client Instruction: Educate patient on: Condition For the Purpose of:: To improve muscle performance and motor function, To increase tolerance to activity/condition/position, To improve ability of physical actions for home/community/work/leisure and To improve gait and locomotor functions Therapeutic Exercise to Include: Strength training, Gait and locomotor training and Neuromotor development For the Purpose of:: To improve muscle performance and motor function, To increase tolerance to activity/condition/position, To improve ability of physical actions for home/community/work/leisure, To improve gait and locomotor functions and To improve balance Re-Evaluation Ending Re-evaluation ending: Please do not hesitate to contact me at [phone] by phone or if you have questions or concerns regarding this new plan of care! Sincerely, Vikram Hodge, DPT, OCS, CSCS
--- NOTE | 2023-12-30 08:10 | HP.PT.NRP ---
Patient Information Patient Information: XAVIER RAHMAN was seen in my office for initial evaluation on 04/19/23. The following Plan of Care was established for this patient: POC Established Initial Frequency: 3x /Week Initial Duration: 4 Weeks Anticipated Interventions Patient/Client Instruction: Educate patient on: Condition For the Purpose of:: To improve muscle performance and motor function, To increase tolerance to activity/condition/position, To improve ability of physical actions for home/community/work/leisure and To improve gait and locomotor functions Therapeutic Exercise to Include: Strength training, Gait and locomotor training and Neuromotor development For the Purpose of:: To improve muscle performance and motor function, To increase tolerance to activity/condition/position, To improve ability of physical actions for home/community/work/leisure, To improve gait and locomotor functions and To improve balance Last Seen Last Seen: This patient was last seen in our office 10/28/23. Pertinent comments regarding their Physical therapy will appear below: Pt seen 22 visits of POC and was 25% better. Per her POC she was seen for two more visits of gym instruct after last recheck and now will be discharged to [facility] At this point I will be discontinuing this patient from physical therapy. I would be happy to see this patient again in the future if found appropriate by the physician. Thank you! Vikram Hodge, DPT, OCS, CSCS Balance/Gait/Functional tests Balance/Special Test Scores Functional Gait Assessment Score: 23 % Disability: 23.3400 CATSIB Score (Max score 120 seconds): 120 Lower Extremity Functional Score: 57 TUG Test Time Seconds: 9.08 Tug Test: <10 sec.=free mobile 30 Second Chair Rise Test Seconds: 14
== END 2023-10-28 19:00 | disposition home or self-care (01) ==
LOC: PT 14:30
PROVIDERS: PCP Family Medicine; Referring Provider Family Medicine; Visit Provider Family Medicine
DX: R26.89 Other abnormalities of gait and mobility (principal)
CPT/HCPCS: 97110; 97162; 97164; 97530

== ENCOUNTER → 2023-11-25 | Outpatient (CLI) | payer MEDICARE, SELFPAY ==
[2023-11-25 17:24] LABS: Absolute Lymphocyte Count 1.11 X10^3/uL (0.83-4.51); Absolute Neutrophil Count 4.7 X10^3/uL (2.0-7.7); Basophil# 0.09 X10^3/uL; Basophil% 1.3 % (0-1); Eosinophil# 0.12 X10^3/uL; Eosinophils% 1.8 % (0-5); Hematocrit 40.3 % (37-47); Hemoglobin 12.5 g/dL (12.0-15.0); Lymphocyte # 1.11 X10^3/ul (0.83-4.51); Lymphocyte % 16.3 % (19-41); Mean Corpuscular Hgb 26.9 pg (27.0-32.0); Mean Corpuscular Volume 86.7 fL (81-99); Mean Platelet Vol. 10.9 fl (6.2-12.0); Monocyte# 0.79 X10^3/uL; Monocyte% 11.6 % (0-10); NRBC Flagged by Analyzer 0 % (0-5); Neutrophil # 4.69 X10^3/uL (2.7-7.7); Neutrophil % 68.6 % (47-70); Platelet Count 283 K/mm3 (150-450); RBC Distribution Width CV 14.9 % (11.6-14.6); RBC Distribution Width SD 47.8 fl (35.1-43.9); Red Blood Count 4.65 M/mm3 (4.2-5.4); White Blood Count 6.8 K/mm3 (4.4-11.0)
[2023-11-25 18:10] LABS: AST(SGOT) 22 U/L (15-37); Alanine Aminotransfer ALT/SGPT 21 U/L (13-56); Albumin, Serum 3.8 g/dL (3.2-5.0); Alkaline Phosphatase 100 U/L (45-117); Anion Gap 8 (5-15); BUN 9 mg/dL (7-18); BUN/Creat Ratio 11.8 RATIO (10-20); Calcium,Total 9.4 mg/dL (8.5-10.1); Chloride 104 mmol/L (98-107); Creatinine, Serum 0.76 mg/dL (0.55-1.02); EST Glomerular Filtration Rate 77 mL/min (>60); Est Glom Filt Rate - Afr Amer 93 mL/min (>60); Globulin 3.9 g/dL (2.2-4.2); Glucose 104 mg/dL (74-106); Potassium 3.6 mmol/L (3.5-5.1); Protein, Total 7.7 g/dL (6.4-8.2); Sodium Level 138 mmol/L (136-145)
[2023-11-25 20:59] LABS: Vitamin B12 613 pg/mL (211-911)
== END | disposition home or self-care (01) ==
PROVIDERS: PCP Family Medicine; Visit Provider Family Medicine
DX: R20.0 Anesthesia of skin (principal); R20.2 Paresthesia of skin
CPT/HCPCS: 36415; 80053; 82607; 82746; 84443; 85025

== ENCOUNTER → 2024-03-02 | Outpatient (CLI) | payer MEDICARE, MEDICAID, SELFPAY ==
[2024-03-02 09:15] LABS: Absolute Lymphocyte Count 1.41 X10^3/uL (0.83-4.51); Absolute Neutrophil Count 5.1 X10^3/uL (2.0-7.7); Basophil# 0.09 X10^3/uL; Basophil% 1.1 % (0-1); Eosinophil# 0.14 X10^3/uL; Eosinophils% 1.8 % (0-5); Hematocrit 40.3 % (37-47); Lymphocyte # 1.41 X10^3/ul (0.83-4.51); Mean Corp Hgb Conc 32.3 g/dL (32-36); Mean Corpuscular Hgb 27.8 pg (27.0-32.0); Mean Corpuscular Volume 86.1 fL (81-99); Mean Platelet Vol. 10.1 fl (6.2-12.0); Monocyte# 1.05 X10^3/uL; Monocyte% 13.4 % (0-10); NRBC Flagged by Analyzer 0 % (0-5); Neutrophil # 5.11 X10^3/uL (2.7-7.7); Neutrophil % 65.2 % (47-70); Platelet Count 296 K/mm3 (150-450); RBC Distribution Width CV 15.5 % (11.6-14.6); RBC Distribution Width SD 48.3 fl (35.1-43.9); RET-HE 29.5 pg (30-35); Red Blood Count 4.68 M/mm3 (4.2-5.4); Reticulocyte Count 1.16 % (0.5-1.5); White Blood Count 7.8 K/mm3 (4.4-11.0)
[2024-03-02 09:39] LABS: AST(SGOT) 19 U/L (15-37); Alanine Aminotransfer ALT/SGPT 21 U/L (13-56); Alkaline Phosphatase 93 U/L (45-117); Anion Gap 7 (5-15); BUN 14 mg/dL (7-18); BUN/Creat Ratio 14.9 RATIO (10-20); Calcium,Total 9.5 mg/dL (8.5-10.1); Chloride 100 mmol/L (98-107); Creatinine, Serum 0.94 mg/dL (0.55-1.02); EST Glomerular Filtration Rate 61 mL/min (>60); Est Glom Filt Rate - Afr Amer 73 mL/min (>60); Ferritin 24 ng/mL (8-252); Glucose 100 mg/dL (74-106); Iron Binding Capacity,Total 449 ug/dL (250-450); Potassium 3.7 mmol/L (3.5-5.1); Sodium Level 134 mmol/L (136-145); Thyroid Stim Hormone (TSH) 0.797 uIU/mL (0.358-3.740)
== END | disposition home or self-care (01) ==
LOC: LAB 08:29
PROVIDERS: PCP Family Medicine; Referring Provider Family Medicine; Visit Provider Family Medicine
DX: R19.5 Other fecal abnormalities (principal); R53.81 Other malaise
CPT/HCPCS: 36415; 80053; 82728; 83550; 84443; 85025; 85045

== ENCOUNTER 2024-03-18 08:34 | Emergency (ER) | payer MEDICARE, MEDICAID, SELFPAY ==
[2024-03-18 08:35] VITALS: BP 139/69; PULSE 96; RESP 20; TEMP 36.4; O2SAT 100; BMI 21.6
--- NOTE | 2024-03-18 08:49 | ED.VIS.GI ---
HPI HPI - GI History of Present Illness Chief Complaint: GI Bleed Detail of Chief Complaint: Constipation with rectal bleeding. Informant: patient and family (Daughter at bedside.) Abdominal Pain/Flank Pain Onset: Today Timing: Intermittent Current Severity: Mild Maximum Severity: Mild Nausea/Vomiting/Emesis GI Symptom: Negative for Nausea or Vomiting Diarrhea/Melena/Hematochezia GI Symptom: Positive for Melena and Hematochezia; Negative for Diarrhea Associated Symptoms Associated Symptoms: Negative for Dysuria, Frequency, Hematuria or Urgency Narrative Narrative: 83-year-old female history of hypertension COPD. On Plavix and aspirin for prior TIA. States has been constipated last several weeks. Limited bowel movements at times has to strain. She has noticed either dark stool or bright red blood per rectum. Prior history of GI bleed. Prior endoscopy without specific source. Prior similar symptoms: Yes Recent Illness/Hospitalization: [facility] Medical History Head injury Laceration of head Inability to ambulate due to knee ZONIA (obstructive sleep apnea) Essential hypertension History of dementia History of CVA in adulthood Recurrent episodes of unresponsiveness TIA (transient ischemic attack) Confusion COPD (chronic obstructive pulmonary disease) Alzheimer's dementia History of GI bleed GERD (gastroesophageal reflux disease) Anxiety and depression COVID-19 Hypertensive emergency without congestive heart failure DCIS (ductal carcinoma in situ) of breast GI bleed Vitamin D deficiency Hypercholesterolemia Arthritis Ductal carcinoma in situ (DCIS) of right breast Fall Hypothyroidism Home Medications ?Medication ?Instructions ?Recorded ?Last Taken ?Type aspirin 81 mg chewable tablet 81 mg PO BREAKFAST #0 tabs 06/15/22 Unknown Rx clopidogrel 75 mg tablet 75 mg PO DAILY #30 tabs 06/15/22 Unknown Rx pantoprazole 40 mg tablet,delayed 40 mg PO DAILY 10/16/22 Unknown History release pramipexole 1.5 mg tablet 1.5 mg PO DAILY 10/16/22 Unknown History valsartan 320 1 tab PO DAILY 10/16/22 Unknown History mg-hydrochlorothiazide 25 mg tablet atorvastatin 40 mg tablet 40 mg PO QHS 04/28/23 Unknown History memantine 10 mg tablet 10 mg PO DAILY 04/28/23 Unknown History amlodipine 5 mg tablet 5 mg PO DAILY 06/11/23 Unknown History albuterol sulfate 90 mcg/actuation 1 - 2 puff inhalation Q4H PRN PRN 06/26/23 Unknown Rx aerosol inhaler (Ventolin HFA) Wheezing ##1 hydralazine 25 mg tablet 12.5 mg PO BID 03/09/24 Unknown History potassium chloride 20 mEq 40 meq PO BID 03/09/24 Unknown History tablet,extended release Allergy/AdvReac Type Severity Reaction Status Date / Time lisinopril Allergy Mild cough Verified 03/18/24 08:38 alendronate sodium (From Allergy Unknown unknown Verified 03/18/24 08:38 Fosamax) Sulfa (Sulfonamide Allergy Rash Verified 03/18/24 08:38 Antibiotics) atorvastatin (From Lipitor) AdvReac Mild muscle Verified 03/18/24 08:38 aches rosuvastatin (From Crestor) AdvReac Mild muscle Verified 03/18/24 08:38 aches codeine AdvReac Nausea Verified 03/18/24 08:38 NSAIDS (Non-Steroidal AdvReac Bleeding Verified 03/18/24 08:38 Anti-Inflamma Family History Mother Heart disease CVA (cerebral vascular accident) Father Heart disease Surgical History Status post placement of implantable loop recorder (11/08/22) History of right hip replacement History of left mastoidectomy History of lumpectomy of right breast History of thyroid surgery History of hysterectomy Social History household members: spouse Smoking Status: Former smoker how long ago did patient quit smoking: Quit ~ 24-25 years prior. alcohol intake: current alcohol intake frequency: a few times a month details: 1 drink/[place] nightly. substance use type: other details: Given THC chew per her family for sleep but prior no substance use. ROS ROS ED ROS Narrative Denies recent illness. Constipation. Rectal bleeding. Constitutional Constitutional ED: Denies chills or fever(s) ENT ENT ED: Denies ear pain Cardiovascular Cardiovascular: Denies chest pain Respiratory/Chest Respiratory/Chest: Denies cough or dyspnea Gastrointestinal Gastrointestinal: Reports constipation; Denies abdominal pain, diarrhea, melena, nausea or vomiting Genitourinary Genitourinary ED: Denies dysuria or hematuria Musculoskeletal Musculoskeletal: Denies arthralgias Integumentary Denies abscess Neurologic Neurologic: Denies headache(s) Psychiatric Psychiatric: Denies anxiety Endocrine Endocrinology: Denies polydipsia Hematologic/Lymphatic Hematologic/Lymphatic: Denies lymphadenopathy Allergic/Immunologic Allergic/Immunologic ED: Denies mouth swelling, tongue swelling or urticaria EXAM Physical Exam Narrative Exam Narrative: Well-appearing 83-year-old female. Sitting upright in bed. Daughter at bedside. Vital signs are stable and afebrile. H EENT exam unremarkable. Mytrex members. Neck nontender. Lungs clear to auscultation bilaterally. Heart regular rhythm no murmur. Chest wall ribs nontender. Abdomen soft nondistended normal bowel sounds without peritoneal signs. No obstruction. Back nontender. Moving all 4 extremities. Nontender no edema. Normal range of motion. She is awake and alert. Rectal exam anus no external hemorrhoids. There is no significant stool in the rectal vault. There was some dark old old blood. No large clots. No heavy bleeding. No mass. Const Vital Signs: 03/18/24 08:35 03/18/24 10:09 03/18/24 10:10 Temperature 97.6 F L 97.8 F Temperature Source Temporal Pulse Rate 96 76 76 Respiratory Rate 20 H 16 16 Blood Pressure 139/69 H 106/58 L 106/58 L Blood Pressure Mean 92 74 74 Pulse Ox 100 98 98 Oxygen Delivery Method Room Air Room Air Positive well nourished and well developed; Negative for obese, cachectic, contractures or unkempt General Appearance ED: well developed and NAD; Negative for unkempt, cachectic, contractures or pallor Nutritional Appearance: Negative for cachectic or obese HEENT Reports moist mucous membranes normocephalic and atraumatic Eyes PERRL and EOMs intact bilaterally Neck no lymphadenopathy, supple and no JVD Resp normal respiratory effort and clear to auscultation bilaterally Cardio regular rate, regular rhythm, S1 normal heart sound, S2 normal heart sound and no murmurs GI non-tender, non-distended and no masses Inspection: Negative for abdominal distention Palpation: soft; Negative for tender, guarding, pulsatile mass or rebound tenderness present Back/Spine no CVA tenderness Extremity full ROM General Extremety ED: Negative for edema or tenderness General Extremity: Negative for edema Neuro CN's II-XII intact bilaterally and moves all extremities Sensorium / Orientation: alert, oriented to person, oriented to place and oriented to time Psych mental status grossly normal and thought process normal Appearance: Negative for unkempt Skin no wounds General Skin Exam: Negative for jaundice or pallor Lesions: no lesions Rashes: no rashes MDM MDM MDM Narrative Medical decision making narrative: 83-year-old female on Plavix and aspirin with rectal bleeding. CBC and chemistry are being obtained. Due to her constipation obtain a KUB. Repeat exam unchanged. Patient is comfortable being discharged home. She has no significant signs of either upper GI bleed or significant bleed. She has on Plavix and aspirin. She instructed follow-up with her primary care physician to have her blood levels rechecked. If she continues to have bleeding they may need to consider colonoscopy. She knows return if worse. Patient states she had a bowel movement while in the emergency department. Stool was brown. No significant blood. No melena. She is comfortable being discharged. History & Record Review Discussion w/independent historian: Patient and Family Additional record(s) reviewed:: Prior inpatient record, Prior outpatient record, Prior ED visit and Prior labs Lab Data Attestation: I reviewed the patient's lab results. Lab results narrative: CBC shows a white count of 9. H&H 12.3 and 38. Platelets 326. Consistent with prior labs. Electrolytes show sodium 135 gap 10. Normal BUN of 15 creatinine 0.9. Glucose 130. No signs of significant GI bleed with these labs. Labs: Laboratory Results - last 24 hr 03/18/24 09:16 WBC 9.9 RBC 4.51 Hgb 12.3 Hct 38.6 MCV 85.6 MCH 27.3 MCHC 31.9 L RDW Std Deviation 47.7 H RDW Coeff of Kierra 15.1 H Plt Count 326 MPV 9.7 Immature Gran % (Auto) 0.400 Neut % (Auto) 77.7 H Lymph % (Auto) 10.4 L [place] % (Auto) 9.8 Eos % (Auto) 0.9 Baso % (Auto) 0.8 Absolute Neuts (auto) 7.7 Absolute Lymphs (auto) 1.03 Nucleated RBC % 0 Sodium 135 L Potassium 3.8 Chloride 100 Carbon Dioxide 25.0 Anion Gap 10 BUN 15 Creatinine 0.92 Estim Creat Clear Calc 38.33 Est GFR (MDRD) Af Amer 75 Est GFR (MDRD) Non-Af 62 BUN/Creatinine Ratio 16.4 Glucose 130 H Calcium 9.8 Radiography Diagnostic Testing: Clinical Impression(s) from Imaging Studies KUB X-Ray 03/18/24 09:20 IMPRESSION: 1. No evidence of significant constipation. 2. Bilateral nephrolithiasis. 3. 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 Electronically Signed: David Aguirre MD at 9:59 EST , KUB single view shows increase stool in the rectum but otherwise no significant constipation. No bowel obstruction. No air-fluid levels. Otherwise chronic changes. Interpreted both by myself and the radiologist. Discharge Plan Triage Chief Complaint: GI Bleed ED Provider: Jono Casanova Dx/Rx/DC Orders Clinical Impression: Acute constipation, Bright red rectal bleeding Instructions: ED Lower GI Bleeding (Stable), ED Anal Fistula (Child) Prescriptions: No Action aspirin 81 mg Tablet,Chewable 81 mg PO BREAKFAST Qty: 0 0RF clopidogrel 75 mg Tablet 75 mg PO DAILY Qty: 30 0RF pantoprazole 40 mg tablet,delayed release (DR/EC) 40 mg PO DAILY pramipexole 1.5 mg tablet 1.5 mg PO DAILY Patient Comments: TAKE 1 TABLET 2 TO 3 HOURS BEFORE BEDTIME FOR RESTLESS LEGS valsartan-hydrochlorothiazide 320-25 mg tablet 1 tab PO DAILY memantine 10 mg tablet 10 mg PO DAILY atorvastatin 40 mg tablet 40 mg PO QHS amlodipine 5 mg tablet 5 mg PO DAILY albuterol sulfate [Ventolin HFA] 90 mcg/actuation HFA aerosol inhaler 1 - 2 puff inhalation Q4H PRN PRN (Reason: Wheezing) Qty: 1 0RF hydralazine 25 mg tablet 12.5 mg PO BID potassium chloride 20 mEq tablet extended release 40 meq PO BID Primary Care Provider: Vikram Segura Referrals: Vikram Segura MD [Primary Care Provider] - 3-5 Days Activity Restrictions/Additional Instructions: Follow-up with Dr. Vikram Segura they can recheck your blood count in a week or so to see if you are losing any more blood. They can also consider if you need a colonoscopy or not. Use the GoLytely for the constipation. Drink 8 to 10 ounce glass every hour and to have a large bowel movement. If you would develop a lot heavier bleeding, large clots or throughout blood return. Print Language: Upper Sorbian Disposition Disposition: Home, Self Care
--- NOTE | 2024-03-18 09:20 | RAD_ITS ---
EXAM: XR ABDOMEN, 1 VIEW CLINICAL INDICATION: constipation TECHNIQUE: Frontal supine view of the abdomen/pelvis. COMPARISON: XR Abdomen dated 08/20/2023 FINDINGS: GASTROINTESTINAL TRACT: Radiopaque densities within the region of the gastric antrum may represent ingested tablets. ORGANS: Small bilateral renal stones. BONES/JOINTS: Right hip prosthesis remains in place. Prominent arthritic changes of the left hip again noted. Prominent degenerative changes are noted within the spine. RAD/Abdomen Single View IMPRESSION: 1. No evidence of significant constipation. 2. Bilateral nephrolithiasis. 3. 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 Electronically Signed: David Aguirre MD at 9:59 EST ,
[2024-03-18 09:28] LABS: Absolute Lymphocyte Count 1.03 X10^3/uL (0.83-4.51); Absolute Neutrophil Count 7.7 X10^3/uL (2.0-7.7); Basophil# 0.08 X10^3/uL; Basophil% 0.8 % (0-1); Eosinophil# 0.09 X10^3/uL; Eosinophils% 0.9 % (0-5); Hematocrit 38.6 % (37-47); Hemoglobin 12.3 g/dL (12.0-15.0); Lymphocyte # 1.03 X10^3/ul (0.83-4.51); Lymphocyte % 10.4 % (19-41); Mean Corp Hgb Conc 31.9 g/dL (32-36); Mean Corpuscular Hgb 27.3 pg (27.0-32.0); Mean Corpuscular Volume 85.6 fL (81-99); Mean Platelet Vol. 9.7 fl (6.2-12.0); Monocyte# 0.97 X10^3/uL; Monocyte% 9.8 % (0-10); NRBC Flagged by Analyzer 0 % (0-5); Neutrophil # 7.65 X10^3/uL (2.7-7.7); Neutrophil % 77.7 % (47-70); Platelet Count 326 K/mm3 (150-450); RBC Distribution Width CV 15.1 % (11.6-14.6); RBC Distribution Width SD 47.7 fl (35.1-43.9); Red Blood Count 4.51 M/mm3 (4.2-5.4); White Blood Count 9.9 K/mm3 (4.4-11.0)
[2024-03-18 09:41] LABS: Anion Gap 10 (5-15); BUN 15 mg/dL (7-18); BUN/Creat Ratio 16.4 RATIO (10-20); Calcium,Total 9.8 mg/dL (8.5-10.1); Chloride 100 mmol/L (98-107); Creatinine, Serum 0.92 mg/dL (0.55-1.02); EST Glomerular Filtration Rate 62 mL/min (>60); Est Glom Filt Rate - Afr Amer 75 mL/min (>60); Estimated Creatinine Clearance 38.33 ml/min; Glucose 130 mg/dL (74-106); Potassium 3.8 mmol/L (3.5-5.1); Sodium Level 135 mmol/L (136-145)
[2024-03-18 10:09] VITALS: BP 106/58; PULSE 76; RESP 16; O2SAT 98
[2024-03-18 10:10] VITALS: BP 106/58; PULSE 76; RESP 16; TEMP 36.6; O2SAT 98
[2024-03-18] MEDS: Electrolyte Solution/Peg's 4000 ML 1000 ML PO (10:24)
== END 2024-03-18 10:27 | disposition home or self-care (01) ==
PROVIDERS: Emergency Provider Emergency Medicine; PCP Family Medicine; Visit Provider Emergency Medicine
DX: K62.5 Hemorrhage of anus and rectum (principal); J44.9 Chronic obstructive pulmonary disease, unspecified; E78.00 Pure hypercholesterolemia, unspecified; Z79.899 Other long term (current) drug therapy; Z87.891 Personal history of nicotine dependence; K59.00 Constipation, unspecified; I10 Essential (primary) hypertension; Z86.73 Personal history of transient ischemic attack (TIA), and cerebral infarction without residual deficits; Z79.82 Long term (current) use of aspirin; Z79.02 Long term (current) use of antithrombotics/antiplatelets
CPT/HCPCS: 99283; 74018; 80048; 85025; A4216

== ENCOUNTER 2024-03-21 19:58 | Inpatient (IN) | payer MEDICARE, SELFPAY ==
[2024-03-21] VITALS (9 sets, daily range): BP systolic 100–130; BP diastolic 39–106; PULSE 86–116; RESP 15–19; TEMP 36.5–36.6; O2SAT 93–97; BMI 23.3; BMI 22.2
--- NOTE | 2024-03-21 20:26 | EKG12_ITS ---
Test Reason : general illness Blood Pressure : */* mmHG Vent. Rate : 98 BPM Atrial Rate : 98 BPM P-R Int : 112 ms QRS Dur : 76 ms QT Int : 350 ms P-R-T Axes : 71 23 227 degrees QTcB Int : 446 ms Sinus rhythm with occasional Premature ventricular complexes ST & T wave abnormality, consider inferior ischemia ST & T wave abnormality, consider anterolateral ischemia Abnormal ECG Confirmed by Nick Cobos ([id number]), online editor NENA JONES ([id number]) on 03/23/2024 10:41:52 AM Referred By: Sangita Lima Confirmed By: Nick Cobos
--- NOTE | 2024-03-21 20:28 | EX.ED.DYSGE1 ---
HPI History of Present Illness Chief Complaint: General Illness Detail of Chief Complaint: Generalized weakness and shortness of breath Informant: patient Narrative Narrative: Patient presents to the emergency department with complaint of she is feeling very weak and short of breath. She tells me she was seen in the emergency department 4 days ago for rectal bleeding and discharged to home. Patient continues to have rectal bleeding 2-3 times a day and also having black stool as well. She denies abdominal pain. She does complain of feeling lightheaded with standing. Patient not anticoagulated. She denies chest pain. [facility] Medical History Head injury Laceration of head Inability to ambulate due to knee ZONIA (obstructive sleep apnea) Essential hypertension History of dementia History of CVA in adulthood Recurrent episodes of unresponsiveness TIA (transient ischemic attack) Confusion COPD (chronic obstructive pulmonary disease) Alzheimer's dementia History of GI bleed GERD (gastroesophageal reflux disease) Anxiety and depression COVID-19 Hypertensive emergency without congestive heart failure DCIS (ductal carcinoma in situ) of breast GI bleed Vitamin D deficiency Hypercholesterolemia Arthritis Ductal carcinoma in situ (DCIS) of right breast Fall Hypothyroidism Home Medications ?Medication ?Instructions ?Recorded ?Last Taken ?Type aspirin 81 mg chewable tablet 81 mg PO BREAKFAST #0 tabs 06/15/22 Unknown Rx clopidogrel 75 mg tablet 75 mg PO DAILY #30 tabs 06/15/22 Unknown Rx pantoprazole 40 mg tablet,delayed 40 mg PO DAILY 10/16/22 Unknown History release pramipexole 1.5 mg tablet 1.5 mg PO DAILY 10/16/22 Unknown History valsartan 320 1 tab PO DAILY 10/16/22 Unknown History mg-hydrochlorothiazide 25 mg tablet atorvastatin 40 mg tablet 40 mg PO QHS 04/28/23 Unknown History memantine 10 mg tablet 10 mg PO DAILY 04/28/23 Unknown History amlodipine 5 mg tablet 5 mg PO DAILY 06/11/23 Unknown History albuterol sulfate 90 mcg/actuation 1 - 2 puff inhalation Q4H PRN PRN 06/26/23 Unknown Rx aerosol inhaler (Ventolin HFA) Wheezing ##1 hydralazine 25 mg tablet 12.5 mg PO BID 03/09/24 Unknown History potassium chloride 20 mEq 20 meq PO BID 03/21/24 Unknown History tablet,extended release(part/cryst) Allergy/AdvReac Type Severity Reaction Status Date / Time lisinopril Allergy Mild cough Verified 03/21/24 19:59 alendronate sodium (From Allergy Unknown unknown Verified 03/21/24 19:59 Fosamax) Sulfa (Sulfonamide Allergy Rash Verified 03/21/24 19:59 Antibiotics) atorvastatin (From Lipitor) AdvReac Mild muscle Verified 03/21/24 19:59 aches rosuvastatin (From Crestor) AdvReac Mild muscle Verified 03/21/24 19:59 aches codeine AdvReac Nausea Verified 03/21/24 19:59 NSAIDS (Non-Steroidal AdvReac Bleeding Verified 03/21/24 19:59 Anti-Inflamma Family History Mother Heart disease CVA (cerebral vascular accident) Father Heart disease Surgical History Status post placement of implantable loop recorder (11/08/22) History of right hip replacement History of left mastoidectomy History of lumpectomy of right breast History of thyroid surgery History of hysterectomy Social History household members: spouse Smoking Status: Former smoker how long ago did patient quit smoking: Quit ~ 24-25 years prior. alcohol intake: current alcohol intake frequency: a few times a month details: 1 drink/[place] nightly. substance use type: other details: Given THC chew per her family for sleep but prior no substance use. ROS ROS ED Review of Systems ROS Unobtainable: other Constitutional Constitutional ED: Reports lethargy; Denies chills, fever(s), sweats or weight loss Eyes Eyes: Denies blurry vision, change in vision or diplopia ENT ENT ED: Denies rhinorrhea or sore throat Cardiovascular Cardiovascular: Denies chest pain, orthopnea or racing heartbeat Respiratory/Chest Respiratory/Chest: Reports dyspnea and dyspnea on exertion; Denies cough, orthopnea or sputum Gastrointestinal Gastrointestinal: Reports other Details: Rectal bleeding ; Denies abdominal pain, diarrhea, nausea or vomiting Genitourinary Genitourinary ED: Denies dysuria, hematuria or urinary frequency Musculoskeletal Musculoskeletal: Denies arthralgias, back pain, myalgias or neck pain Integumentary Denies abscess, Abrasions or rash Neurologic Neurologic: Denies headache(s) or weakness Psychiatric Psychiatric: Denies anxiety, depression or suicidal thoughts Endocrine Endocrinology: Denies polydipsia, polyphagia or polyuria Hematologic/Lymphatic Hematologic/Lymphatic: Denies easy bleeding, easy bruising or lymphadenopathy Allergic/Immunologic Allergic/Immunologic ED: Denies mouth swelling, tongue swelling or urticaria EXAM Physical Exam Narrative Exam Narrative: Patient pale appearing Const Vital Signs: 03/21/24 19:59 03/21/24 20:30 03/21/24 20:49 Temperature 98 F Temperature Source Oral Pulse Rate 108 H Pulse Rate [Lying] 100 Pulse Rate [Sitting (for 1 minute prior to obtaining)] 99 Pulse Rate [Standing (for 1 minute prior to obtaining)] 116 H Respiratory Rate 17 Respiratory Effort Normal Non-Labored Respiratory Pattern Normal Blood Pressure 125/53 H Blood Pressure [Lying] 110/54 L Blood Pressure [Sitting (for 1 minute prior to obtaining)] 102/39 L Blood Pressure [Standing (for 1 minute prior to obtaining)] 113/50 L Blood Pressure Mean 77 Blood Pressure Mean [Lying] 72 Blood Pressure Mean [Sitting (for 1 minute prior to obtaining)] 60 Blood Pressure Mean [Standing (for 1 minute prior to obtaining)] 71 Pulse Ox 93 Oxygen Delivery Method Room Air 03/21/24 21:59 Temperature Temperature Source Pulse Rate 86 Pulse Rate [Lying] Pulse Rate [Sitting (for 1 minute prior to obtaining)] Pulse Rate [Standing (for 1 minute prior to obtaining)] Respiratory Rate 16 Respiratory Effort Respiratory Pattern Blood Pressure 130/46 H Blood Pressure [Lying] Blood Pressure [Sitting (for 1 minute prior to obtaining)] Blood Pressure [Standing (for 1 minute prior to obtaining)] Blood Pressure Mean 74 Blood Pressure Mean [Lying] Blood Pressure Mean [Sitting (for 1 minute prior to obtaining)] Blood Pressure Mean [Standing (for 1 minute prior to obtaining)] Pulse Ox 97 Oxygen Delivery Method Room Air Positive well nourished and well developed General Appearance ED: well developed and NAD HEENT Reports TM's clear and moist mucous membranes normocephalic and atraumatic; Negative for trauma or tenderness Tympanic Membrane ED: Yes TM's clear Eyes PERRL and EOMs intact bilaterally General Eye ED: Negative for pale conjunctiva or scleral icterus Neck no lymphadenopathy, supple and no JVD General: Negative for tenderness Chest Wall inspection of chest normal and palpation of chest normal Chest: Negative for tenderness Resp normal respiratory effort and clear to auscultation bilaterally Effort and Inspection: Negative for respiratory distress or pain with movement Auscultation: Negative for rhonchi, wheezes or diminished lung sounds Cardio regular rate, regular rhythm, S1 normal heart sound, S2 normal heart sound and no murmurs Peripheral Pulses: pulses 2+ throughout GI normal to inspection, nondistended, normoactive bowel sounds, soft to palpation, non-tender, non-distended and no masses Back/Spine no CVA tenderness and no thoracic nor lumbar tenderness Extremity normal to inspection General Extremety ED: Negative for edema General Extremity: Negative for edema Neuro oriented x3, CN's II-XII intact bilaterally, no sensory deficits noted and gait normal Sensorium / Orientation: awake, alert, oriented to person, oriented to place and oriented to time Motor Exam: strength 5/5 throughout and strength abnormal Psych mental status grossly normal Skin no rashes or lesions noted and no wounds MDM MDM MDM Narrative Medical decision making narrative: Patient presents with fatigue and shortness of breath. She complains of rectal bleeding. IV line established. CBC with differential obtained showing of 8.5 with hemoglobin 5.7 platelet count 247. Chemistries unremarkable. BUN 33 and creatinine 0.9. Lactate was 2.0. Troponin normal at 12. On rectal exam she had maroon-colored stools. Patient was typed and crossed for 2 units packed red cells. Discussed case with GI on-call Dr. Winslow who recommended given Protonix 40 mg IV. Patient had a CTA of the abdomen and pelvis with IV contrast that showed some thickening of the wall of the stomach otherwise nothing acute. Discussed case with hospitalist who will evaluate patient for admission to the ICU. Lab Data Attestation: I reviewed the patient's lab results. Labs: Laboratory Results - last 24 hr 03/21/24 03/21/24 19:54 20:35 WBC 8.5 RBC 1.99 L Hgb 5.7 L* Hct 17.5 L MCV 87.9 MCH 28.6 MCHC 32.6 RDW Std Deviation 50.4 H RDW Coeff of Kierra 15.9 H Plt Count 247 MPV 9.9 Immature Gran % (Auto) 0.500 Neut % (Auto) 70.9 H Lymph % (Auto) 17.5 L Davison % (Auto) 9.8 Eos % (Auto) 0.8 Baso % (Auto) 0.5 Absolute Neuts (auto) 6.0 Absolute Lymphs (auto) 1.48 Nucleated RBC % 0 Differential Comment Diff Path Review May foll Platelet Estimate ADEQUATE Hypochromasia 3+ Ovalocytes RARE Sodium 141 Potassium 4.2 Chloride 110 H Carbon Dioxide 24.0 Anion Gap 7 BUN 33 H Creatinine 0.90 Estim Creat Clear Calc 39.18 Est GFR (MDRD) Af Amer 77 Est GFR (MDRD) Non-Af 63 BUN/Creatinine Ratio 36.7 H Glucose 164 H Lactic Acid 2.0 Calcium 8.8 Troponin I High Sens 12 Blood Type O POSITIVE Antibody Screen NEGATIVE Crossmatch See Detail Radiography Diagnostic Testing: Clinical Impression(s) from Imaging Studies Abdomen/Pelvis CTA 03/21/24 21:23 IMPRESSION: Possible gastric wall thickening. Colonic diverticulosis. Left renal cyst. Possible cholelithiasis. Electronically Signed: Natanael Tyler DO at 22:03 EST Reading Location ID and State: [facility] / [place] Tel [phone], Service support , EKG Initial EKG: Attestation: I personally reviewed and interpreted this EKG as follows: Comments: Sinus rhythm with ventricular rate of of [address] changes and PVCs. Critical Care Time Critical Care Time: Yes Critical care time (excluding procedures): 30-74 minutes, Including time spent:, Discussing w/Patient &/or Family/Button Bradder, Discussing w/Consultants, Arranging Admission or Transfer, Performing Direct Patient Care at Bedside and - (30 minutes) Discharge Plan Triage Chief Complaint: General Illness ED Provider: Sangita Lima Dx/Rx/DC Orders Clinical Impression: GI (gastrointestinal bleed), Anemia, History of COPD Prescriptions: No Action aspirin 81 mg Tablet,Chewable 81 mg PO BREAKFAST Qty: 0 0RF clopidogrel 75 mg Tablet 75 mg PO DAILY Qty: 30 0RF pantoprazole 40 mg tablet,delayed release (DR/EC) 40 mg PO DAILY pramipexole 1.5 mg tablet 1.5 mg PO DAILY Patient Comments: TAKE 1 TABLET 2 TO 3 HOURS BEFORE BEDTIME FOR RESTLESS LEGS valsartan-hydrochlorothiazide 320-25 mg tablet 1 tab PO DAILY memantine 10 mg tablet 10 mg PO DAILY atorvastatin 40 mg tablet 40 mg PO QHS amlodipine 5 mg tablet 5 mg PO DAILY albuterol sulfate [Ventolin HFA] 90 mcg/actuation HFA aerosol inhaler 1 - 2 puff inhalation Q4H PRN PRN (Reason: Wheezing) Qty: 1 0RF potassium chloride 20 mEq tablet,ER particles/crystals 20 meq PO BID hydralazine 25 mg tablet 12.5 mg PO BID Primary Care Provider: Vikram Segura Referrals: Vikram Segura MD [Primary Care Provider] - Print Language: Romansh Disposition Disposition: Acute Care Hospital [facility]
[2024-03-21 20:36] LABS: Absolute Lymphocyte Count 1.48 X10^3/uL (0.83-4.51); Basophil# 0.04 X10^3/uL; Basophil% 0.5 % (0-1); Eosinophil# 0.07 X10^3/uL; Eosinophils% 0.8 % (0-5); Hematocrit 17.5 % (37-47); Lymphocyte # 1.48 X10^3/ul (0.83-4.51); Lymphocyte % 17.5 % (19-41); Mean Corp Hgb Conc 32.6 g/dL (32-36); Mean Corpuscular Hgb 28.6 pg (27.0-32.0); Mean Corpuscular Volume 87.9 fL (81-99); Mean Platelet Vol. 9.9 fl (6.2-12.0); Monocyte# 0.83 X10^3/uL; Monocyte% 9.8 % (0-10); NRBC Flagged by Analyzer 0 % (0-5); Neutrophil # 6.01 X10^3/uL (2.7-7.7); Neutrophil % 70.9 % (47-70); POSITIVE COUNT YES; Platelet Count 247 K/mm3 (150-450); RBC Distribution Width CV 15.9 % (11.6-14.6); RBC Distribution Width SD 50.4 fl (35.1-43.9); Red Blood Count 1.99 M/mm3 (4.2-5.4); White Blood Count 8.5 K/mm3 (4.4-11.0)
[2024-03-21 20:53] LABS: Anion Gap 7 (5-15); BUN 33 mg/dL (7-18); BUN/Creat Ratio 36.7 RATIO (10-20); Calcium,Total 8.8 mg/dL (8.5-10.1); Chloride 110 mmol/L (98-107); EST Glomerular Filtration Rate 63 mL/min (>60); Est Glom Filt Rate - Afr Amer 77 mL/min (>60); Estimated Creatinine Clearance 39.18 ml/min; Glucose 164 mg/dL (74-106); Potassium 4.2 mmol/L (3.5-5.1); Sodium Level 141 mmol/L (136-145); Troponin-I HS 12 pg/mL (3.0-54.0)
[2024-03-21] MEDS: 0.9% Normal Saline (1000mL) 1,000 ML 999 ML IV (20:55)
[2024-03-21 21:22] LABS: Differential Indicated SCAN CRITERIA MET; Hemoglobin 5.7 g/dL (12.0-15.0)
--- NOTE | 2024-03-21 21:23 | CT_ITS ---
INDICATION: gi Bleed EXAMINATION: CTA abdomen and pelvis - TECHNIQUE: Routine abdominal CT angiogram protocol was performed with IV contrast. MIP images provided. The protocol utilizes one or more of the following dose reduction techniques: automated exposure control, adjustment of mA and/or kV according to patient size,and/or use of iterative reconstruction technique. IV Contrast dosage and agent: RADIATION DOSAGE (If Supplied By Facility): CTDIvol = ( 22.72 ) mGy, DLP = ( 471.86 ) mGycm COMPARISON: FINDINGS: Lung bases: Normal. Liver: Normal. No bile ductal dilatation. Gallbladder: Possible cholelithiasis. Spleen: Normal. Adrenal gland: Normal. Kidneys: 3.7 cm left renal cyst. No hydronephrosis or stone formation. Pancreas:Normal. Bowel gas pattern: Nonobstructive. Possible gastric wall thickening. Colonic diverticulosis. Evaluation for GI bleed is limited without precontrast series. Appendix: Normal. Free air: None. Free fluid: None. Pelvis: Pelvic organs: No mass lesion noted. Bone survey: No aggressive bony lesions. No acute fractures. Vascular: Diffuse atherosclerotic calcifications of the aorta. Calcified major abdominal and pelvic arteries with less than 50% luminal stenosis, CT/CTA Abd/Pelvis W/WO Contrast IMPRESSION: Possible gastric wall thickening. Colonic diverticulosis. Left renal cyst. Possible cholelithiasis. Electronically Signed: Natanael Tyler DO at 22:03 EST ,
[2024-03-21 21:45] LABS: Hypochromasia 3+; Ovalocyte RARE; Platelet Estimate ADEQUATE (ADEQ)
[2024-03-21] MEDS: Pantoprazole Sodium 40 MG in 0.9% Normal Saline (100mL MB+) 100 ML 330 MG IV (22:30)
--- NOTE | 2024-03-21 22:30 | HP.PCM.HOS_ITS ---
[facility] - General General Date of Admission: 03/21/24 Date of Service: 03/21/24 Chief Complaint: Rectal Bleeding with Dark and Red Stools with SOB and Generalized Weakness. HPI Narrative XAVIER RAMIREZ, is a 83 F with a past medical history of essential hypertension; on amlodipine, hydralazine and valsartan-hydrochlorothiazide, hyperlipidemia; on atorvastatin, hypothyroidism; with history of thyroid surgery and currently not on thyroid hormone replacement, former history of tobacco abuse (quit ~2019), history of TIA/CVA; on BASA and Plavix daily, history of GERD; on Protonix, history of GI Bleed; with endoscopy unable to pinpoint source of bleeding, history of syncope and collapse; with previous implantable loop recorder (2022), ZONIA, history of Alzheimer's dementia; on memantine, history of depression with anxiety; currently not on pharmacologic treatment, history of COPD, history of vitamin D deficiency, history of COVID-19, history of DCIS of the Right breast; s/p lumpectomy of the Right breast, history of hysterectomy, history of Left mastoidectomy, OA; with history of Right THR and recent evaluation in the ER here on March 18, 2024 with complaints of Rectal Bleeding with Constipation with ER physician recording complaints of Melena and Hematochezia with hemoglobin of 12.3 g/dL and BUN of 15 mg/dL with serum creatinine of 0.92 mg/dL and with KUB revealing no evidence of significant constipation with bilateral nephrolithiasis and advanced arthritis changes of the Left hip with patient then discharged home to follow up with her PCP in 1 week and recommendation for potential colonoscopy with prn GoLytely along with 8-10 oz. water daily with instructions to return if her bleeding worsened who now re-presents to [facility] ER complaining of rectal bleeding with continued dark and red stools with shortness of breath and generalized weakness. Mrs. Ramirez reports she unfortunately has continued to have severe rectal bleeding ~2-3 times per day along with corresponding lightheadedness with standing. She then developed GUERRERO with generalized weakness so she decided to come back in for further evaluation and treatment. She denies associated abdominal pain or chest pain but she has continued to take her BASA and Plavix. There is no report of fever, chills, nausea, vomiting, diarrhea or headache. In the ER she was noted to have Severe ABLA requiring transfusion with a hemoglobin of 5.7 g/dL with elevated BUN of 33 mg/dL and serum creatinine of 0.9 mg/dL present on admission suggesting at least one source of upper GI Bleeding with melanotic stools plus hematochezia suspected to be diverticular in origin with CTA this admission suggestive of gastric wall thickening and colonic diverticulosis with acute bleeding suspected to be due to Adverse Drug Reaction to BASA and Plavix in the setting of a known previous GI Bleed with source of bleeding not identified after endoscopic evaluation and she was then admitted to the ICU for ongoing care for a stay that is expected to extend beyond 2 midnights. ON LICENSE OF [facility] Medical History (Updated 03/22/24 @ 00:[address] Lamin Ritter, DO) Head injury Laceration of head Inability to ambulate due to knee ZONIA (obstructive sleep apnea) Essential hypertension History of dementia History of CVA in adulthood Recurrent episodes of unresponsiveness TIA (transient ischemic attack) Confusion COPD (chronic obstructive pulmonary disease) Alzheimer's dementia History of GI bleed GERD (gastroesophageal reflux disease) Anxiety and depression COVID-19 Hypertensive emergency without congestive heart failure DCIS (ductal carcinoma in situ) of breast GI bleed Vitamin D deficiency Hypercholesterolemia Arthritis Ductal carcinoma in situ (DCIS) of right breast Fall Hypothyroidism Home Medications ?Medication ?Instructions ?Recorded ?Last Taken ?Type aspirin 81 mg chewable tablet 81 mg PO BREAKFAST #0 tabs 06/15/22 Unknown Rx clopidogrel 75 mg tablet 75 mg PO DAILY #30 tabs 06/15/22 Unknown Rx pantoprazole 40 mg tablet,delayed 40 mg PO DAILY 10/16/22 Unknown History release pramipexole 1.5 mg tablet 1.5 mg PO DAILY 10/16/22 Unknown History valsartan 320 1 tab PO DAILY 10/16/22 Unknown History mg-hydrochlorothiazide 25 mg tablet atorvastatin 40 mg tablet 40 mg PO QHS 04/28/23 Unknown History memantine 10 mg tablet 10 mg PO DAILY 04/28/23 Unknown History amlodipine 5 mg tablet 5 mg PO DAILY 06/11/23 Unknown History albuterol sulfate 90 mcg/actuation 1 - 2 puff inhalation Q4H PRN PRN 06/26/23 Unknown Rx aerosol inhaler (Ventolin HFA) Wheezing ##1 hydralazine 25 mg tablet 12.5 mg PO BID 03/09/24 Unknown History potassium chloride 20 mEq 20 meq PO BID 03/21/24 Unknown History tablet,extended release(part/cryst) Allergy/AdvReac Type Severity Reaction Status Date / Time lisinopril Allergy Mild cough Verified 03/21/24 19:59 alendronate sodium (From Allergy Unknown unknown Verified 03/21/24 19:59 Fosamax) Sulfa (Sulfonamide Allergy Rash Verified 03/21/24 19:59 Antibiotics) atorvastatin (From Lipitor) AdvReac Mild muscle Verified 03/21/24 19:59 aches rosuvastatin (From Crestor) AdvReac Mild muscle Verified 03/21/24 19:59 aches codeine AdvReac Nausea Verified 03/21/24 19:59 NSAIDS (Non-Steroidal AdvReac Bleeding Verified 03/21/24 19:59 Anti-Inflamma Family History Mother Heart disease CVA (cerebral vascular accident) Father Heart disease Surgical History Status post placement of implantable loop recorder (11/08/22) History of right hip replacement History of left mastoidectomy History of lumpectomy of right breast History of thyroid surgery History of hysterectomy Social History household members: spouse Smoking Status: Former smoker how long ago did patient quit smoking: Quit ~ 24-25 years prior. alcohol intake: current alcohol intake frequency: a few times a month details: 1 drink/[place] nightly. substance use type: other details: Given THC chew per her family for sleep but prior no substance use. ROS ROS Narrative Review of Systems: Constitutional: Patient admits to generalized weakness and GUERRERO. She denies fever or chills. Eyes: Patient denies changes in vision or discharge from eyes. ENT: Patient denies runny nose, sore throat or ear pain. Resp: Patient admits to GUERRERO but she denies cough. GI: Patient admits to rectal bleeding with alternating melena and hematochezia as per HPI. She denies abdominal pain, nausea, vomiting or diarrhea. : Patient denies dysuria or hematuria. MSK: Patient denies arthralgias or myalgias. Skin: Patient denies rash, abscess or jaundice. Psych: Patient denies symptoms of uncontrolled depression or anxiety. Neuro: Patient denies headache, paresthesias or focal neurologic deficits. Allergy: Patient denies lip swelling, tongue swelling or urticaria. Hematology: Patient admits to rectal bleeding since her recent previous ER visit as per HPI. Endocrinology: Patient denies polyuria, polydipsia and polyphagia. 14 point ROS otherwise negative except for positives noted above in HPI. Vital Signs Vital Signs Vital Signs: 03/21/24 19:59 03/21/24 20:30 03/21/24 20:49 Temperature 98 F Temperature Source Oral Pulse Rate 108 H Pulse Rate [Lying] 100 Pulse Rate [Sitting (for 1 minute prior to obtaining)] 99 Pulse Rate [Standing (for 1 minute prior to obtaining)] 116 H Respiratory Rate 17 Respiratory Effort Normal Non-Labored Respiratory Pattern Normal Blood Pressure 125/53 H Blood Pressure [Lying] 110/54 L Blood Pressure [Sitting (for 1 minute prior to obtaining)] 102/39 L Blood Pressure [Standing (for 1 minute prior to obtaining)] 113/50 L Blood Pressure Mean 77 Blood Pressure Mean [Lying] 72 Blood Pressure Mean [Sitting (for 1 minute prior to obtaining)] 60 Blood Pressure Mean [Standing (for 1 minute prior to obtaining)] 71 Pulse Ox 93 Oxygen Delivery Method Room Air 03/21/24 21:59 Temperature Temperature Source Pulse Rate 86 Pulse Rate [Lying] Pulse Rate [Sitting (for 1 minute prior to obtaining)] Pulse Rate [Standing (for 1 minute prior to obtaining)] Respiratory Rate 16 Respiratory Effort Respiratory Pattern Blood Pressure 130/46 H Blood Pressure [Lying] Blood Pressure [Sitting (for 1 minute prior to obtaining)] Blood Pressure [Standing (for 1 minute prior to obtaining)] Blood Pressure Mean 74 Blood Pressure Mean [Lying] Blood Pressure Mean [Sitting (for 1 minute prior to obtaining)] Blood Pressure Mean [Standing (for 1 minute prior to obtaining)] Pulse Ox 97 Oxygen Delivery Method Room Air Weight Weight: 132 lb 0.91 oz Body Mass Index (BMI) 23.3 Physical Exam Const alert, oriented x3, no apparent distress and average body habitus General Appearance: cooperative HEENT normocephalic, head/scalp atraumatic, hearing grossly normal bilaterally and moist oral mucous membranes Eyes PERRL and EOMs intact bilaterally Neck no lymphadenopathy and supple Resp normal respiratory effort, no retractions, no use of accessory muscles and clear to auscultation bilaterally Cardio regular rate and regular rhythm GI normal to inspection, nondistended, normoactive bowel sounds, soft to palpation, non-tender and non-distended Extremity normal to inspection, full ROM and no clubbing, cyanosis or edema Skin Skin Narrative: Patient has no evidence of rash, abscess or jaundice. Neuro oriented x3, CN's II-XII intact bilaterally, moves all extremities and no focal motor deficits Sensorium / Orientation: awake, alert, oriented to person, oriented to place and oriented to time Speech: speech normal Psych affect normal Results Medical Records Data Attestation: I reviewed the patient's medical records Lab / Micro Data Attestation: I reviewed the patient's lab results. 03/21/24 19:54 03/21/24 19:54 Labs: Laboratory Results - last 24 hr 03/21/24 19:54: WBC 8.5, RBC 1.99 L, Hgb 5.7 L*, Hct 17.5 L, MCV 87.9, MCH 28.6, MCHC 32.6, RDW Std Deviation 50.4 H, RDW Coeff of Kierra 15.9 H, Plt Count 247, MPV 9.9, Immature Gran % (Auto) 0.500, Neut % (Auto) 70.9 H, Lymph % (Auto) 17.5 L, [place] % (Auto) 9.8, Eos % (Auto) 0.8, Baso % (Auto) 0.5, Absolute Neuts (auto) 6.0, Absolute Lymphs (auto) 1.48, Nucleated RBC % 0, Differential Comment , Diff Path Review May foll, Platelet Estimate ADEQUATE, Hypochromasia 3+, Ovalocytes RARE, Sodium 141, Potassium 4.2, Chloride 110 H, Carbon Dioxide 24.0, Anion Gap 7, BUN 33 H, Creatinine 0.90, Estim Creat Clear Calc 39.18, Est GFR (MDRD) Af Amer 77, Est GFR (MDRD) Non-Af 63, BUN/Creatinine Ratio 36.7 H, Glucose 164 H, Calcium 8.8, Troponin I High Sens 12 03/21/24 20:35: Lactic Acid 2.0, Blood Type O POSITIVE, Antibody Screen NEGATIVE, Crossmatch See Detail Imaging Radiology Impression Abdomen/Pelvis CTA 03/21/24 21:23 IMPRESSION: Possible gastric wall thickening. Colonic diverticulosis. Left renal cyst. Possible cholelithiasis. Electronically Signed: Natanael Tyler DO at 22:03 EST Reading Location ID and State: [facility] / [place] Tel [phone], Service support , Assessment & Plan Assessment/Plan (1) Acute blood loss anemia: (2) Melena: (3) Hematochezia due to medication: (4) Adverse drug reaction: QUALIFIERS: Encounter type: initial encounter Qualified Code(s): T50.905A - Adverse effect of unspecified drugs, medicaments and biological substances, initial encounter (5) History of GI bleed: (6) Generalized weakness: (7) Dyspnea on exertion: (8) Alzheimer's dementia: QUALIFIERS: Alzheimer's disease onset: unspecified onset Dementia behavioral or psychological symptom: without behavioral, psychotic, or mood disturbance or anxiety Dementia severity: unspecified severity Qualified Code(s): G30.9 - Alzheimer's disease, unspecified; F02.80 - Dementia in other diseases classified elsewhere, unspecified severity, without behavioral disturbance, psychotic disturbance, mood disturbance, and anxiety PLAN: Plan 1. Severe ABLA requiring transfusion with a hemoglobin of 5.7 g/dL with elevated BUN of 33 mg/dL and serum creatinine of 0.9 mg/dL present on admission suggesting at least one source of upper GI Bleeding with melanotic stools plus hematochezia suspected to be diverticular in origin with CTA this admission suggestive of gastric wall thickening (due to likely gastritis and suspected PUD) and colonic diverticulosis in the setting of recent evaluation in the ER here on March 18, 2024 with complaints of Rectal Bleeding with Constipation with ER physician recording complaints of Melena and Hematochezia with hemoglobin of 12.3 g/dL and BUN of 15 mg/dL with serum creatinine of 0.92 mg/dL and with KUB revealing no evidence of significant constipation with bilateral nephrolithiasis and advanced arthritis changes of the Left hip with patient then discharged home - Admit to ICU. Keep strict NPO. Start IV Protonix drip. Proceed with transfusion of 2 units of PRBC's ordered in the ER and then recheck CBC in AM to ensure improvement into normal range > 7g/dL. Check iron studies, ferritin, B12 and folate to more fully evaluate potential underlying contributing factors to her anemia. Finally, we will consult gastroenterology to see this patient on-rounds in the AM for full endoscopic evaluation with help appreciated in advance. 2. Adverse Drug Reaction to BASA and Plavix in the setting of a known chronic constipation and GERD; with previous GI Bleed with source of bleeding not identified after endoscopic evaluation precipitating #1 - Stop BASA and Plavix with patient stating she has been taking both continuously since her recent ER evaluation. 3. Generalized Weakness with GUERRERO and lightheadedness with standing attributable to #1 & #2 - PT/OT and Case Management to consult and treat once patient's sources of GI bleeding have been identified and neutralized. 4. History of Alzheimer's dementia; on memantine adding to the medical complexity of #1 - #3 - Restart memantine once patient is cleared by GI for oral intake. 5. Essential hypertension; on amlodipine, hydralazine and valsartan- hydrochlorothiazide - Hold scheduled antihypertensives until sources of bleeding have been identified and neutralized. 6. Hyperlipidemia; on atorvastatin - Restart statin when patient is cleared for oral intake. 7. Hypothyroidism; with history of thyroid surgery - Check TSH with patient currently not on thyroid hormone replacement. 8. Former history of tobacco abuse (quit ~2019) - Noted. 9. History of TIA/CVA; on BASA and Plavix daily - Hold BASA and Plavix until further notice. 10. History of syncope and collapse; with previous implantable loop recorder (2022) - Noted. 11. ZONIA - Continue nocturnal CPAP. 12. History of depression with anxiety; currently not on pharmacologic treatment - Noted with no signs of significant depression or anxiety at this time. 13. History of COPD - Stable with no evidence of flare. Give prn nebulizers. 14. History of vitamin D deficiency - Check vitamin D level this admission to see of patient needs to be restarted on supplementation. 15. History of COVID-19 - Noted. 16. History of DCIS of the Right breast; s/p lumpectomy of the Right breast - Noted. 17. History of hysterectomy - Noted. 18. History of Left mastoidectomy - Noted for the sake of completeness. 19. OA; with history of Right THR - Noted. 20. DVT prophylaxis - SCD's only in light of #1 contraindicating blood thinning medications. Total time: Approximately (but not less than) 75 minutes. Charges/Coding Visit Charges Inpatient E&M: 27571 Init Hosp L3
[2024-03-21] MEDS: 0.9% Normal Saline (1000mL) 1,000 ML 100 ML IV (23:40)
[2024-03-21 23:55] LABS: Ferritin 12 ng/mL (8-252); Iron 10 ug/dL (50-170); Iron Binding Capacity,Total 380 ug/dL (250-450); PERCENT IRON SATURATION 2.6 % (15.0-55.0)
[2024-03-22] VITALS (30 sets, daily range): BP systolic 99–171; BP diastolic 49–108; PULSE 75–93; RESP 14–22; TEMP 36.5–37.6; O2SAT 94–99; BMI 22.2
[2024-03-22] MEDS: Pantoprazole Sodium 80 MG in 0.9% Normal Saline (100mL Bag) 80 ML 10 MG CONT INF ×3 (00:19→19:28)
[2024-03-22 00:48] LABS: Reflex Lactate? Y
[2024-03-22] MEDS: 0.9% Saline Lock 10 ML Syringe IV (01:28)
[2024-03-22] MEDS: Morphine 2 MG/ML Syringe 1 MG IM (01:31)
[2024-03-22 01:38] LABS: Lactic Acid 2.3 mmol/L (0.4-1.9)
[2024-03-22 01:41] LABS: Vitamin B12 473 pg/mL (211-911)
[2024-03-22 05:01] LABS: Absolute Lymphocyte Count 1.07 X10^3/uL (0.83-4.51); Absolute Neutrophil Count 5.7 X10^3/uL (2.0-7.7); Basophil# 0.05 X10^3/uL; Basophil% 0.6 % (0-1); Eosinophil# 0.06 X10^3/uL; Eosinophils% 0.8 % (0-5); Hematocrit 20.4 % (37-47); Hemoglobin 6.7 g/dL (12.0-15.0); Lymphocyte # 1.07 X10^3/ul (0.83-4.51); Lymphocyte % 13.8 % (19-41); Mean Corp Hgb Conc 32.8 g/dL (32-36); Mean Corpuscular Hgb 27.9 pg (27.0-32.0); Mean Platelet Vol. 9.7 fl (6.2-12.0); Monocyte# 0.83 X10^3/uL; Monocyte% 10.7 % (0-10); NRBC Flagged by Analyzer 0 % (0-5); Neutrophil # 5.69 X10^3/uL (2.7-7.7); Neutrophil % 73.7 % (47-70); Platelet Count 170 K/mm3 (150-450); RBC Distribution Width CV 15.1 % (11.6-14.6); RBC Distribution Width SD 46.7 fl (35.1-43.9); White Blood Count 7.7 K/mm3 (4.4-11.0)
[2024-03-22 05:36] LABS: ALB/GLOB Ratio 1.2 RATIO (0.9-2.4); AST(SGOT) 15 U/L (15-37); Alanine Aminotransfer ALT/SGPT 12 U/L (13-56); Albumin, Serum 2.4 g/dL (3.2-5.0); Alkaline Phosphatase 39 U/L (45-117); Anion Gap 6 (5-15); BUN 24 mg/dL (7-18); BUN/Creat Ratio 37.3 RATIO (10-20); Calcium,Total 7.6 mg/dL (8.5-10.1); Chloride 116 mmol/L (98-107); Creatinine, Serum 0.64 mg/dL (0.55-1.02); EST Glomerular Filtration Rate 93 mL/min (>60); Est Glom Filt Rate - Afr Amer 113 mL/min (>60); Estimated Creatinine Clearance 44.08 ml/min; Glucose 106 mg/dL (74-106); Magnesium 1.7 mg/dL (1.6-2.6); Phosphorus 2.5 mg/dL (2.5-4.9); Potassium 4.3 mmol/L (3.5-5.1); Protein, Total 4.4 g/dL (6.4-8.2); Sodium Level 143 mmol/L (136-145)
--- NOTE | 2024-03-22 08:32 | PCM.PN.HOSP ---
Reason for Visit Reason for Visit: Diagnoses Acute posthemorrhagic anemia (03/21/24) Dementia in other diseases classified elsewhere, unspecified severity, without behavioral disturbance, psychotic disturbance, mood disturbance, and anxiety (03/21/24) Alzheimer's disease, unspecified (03/21/24) Melena (03/21/24) Other forms of dyspnea (03/21/24) Weakness (03/21/24) Adverse effect of unspecified drugs, medicaments and biological substances, initial encounter (03/21/24) Personal history of other diseases of the digestive system (03/21/24) Subjective Subjective Patient is an 83-year-old lady who presented with progressive shortness of breath and generalized weakness. Patient had been seen in the ED 4 days prior for rectal bleed. Objective Data Objective Data Vital Signs: Vital Signs Temp Pulse Resp BP Pulse Ox O2 Del Method 99.2 F H 75 16 131/58 H 98 Room Air 03/22/24 08:00 03/22/24 08:00 03/22/24 08:00 03/22/24 08:00 03/22/24 08:00 03/22/24 08:00 Oxygen Delivery Method Room Air Weight: 56.9 kg Body Mass Index (BMI) 22.2 Intake & Output: Intake and Output for Last 24 Hours 03/20/24 03/21/24 03/22/24 23:59 23:59 23:59 Intake Total 110 / 1110 2000 / 2000 Output Total 900 / 900 Balance 110 / 1110 1100 / 1100 Lab / Micro Data 03/22/24 04:50 03/22/24 04:50 Labs: Laboratory Results - last 24 hr 03/21/24 19:54: WBC 8.5, RBC 1.99 L, Hgb 5.7 L*, Hct 17.5 L, MCV 87.9, MCH 28.6, MCHC 32.6, RDW Std Deviation 50.4 H, RDW Coeff of Kierra 15.9 H, Plt Count 247, MPV 9.9, Immature Gran % (Auto) 0.500, Neut % (Auto) 70.9 H, Lymph % (Auto) 17.5 L, [place] % (Auto) 9.8, Eos % (Auto) 0.8, Baso % (Auto) 0.5, Absolute Neuts (auto) 6.0, Absolute Lymphs (auto) 1.48, Nucleated RBC % 0, Differential Comment , Diff Path Review August, Platelet Estimate ADEQUATE, Hypochromasia 3+, Ovalocytes RARE, Sodium 141, Potassium 4.2, Chloride 110 H, Carbon Dioxide 24.0, Anion Gap 7, BUN 33 H, Creatinine 0.90, Estim Creat Clear Calc 39.18, Est GFR (MDRD) Af Amer 77, Est GFR (MDRD) Non-Af 63, BUN/Creatinine Ratio 36.7 H, Glucose 164 H, Calcium 8.8, Iron 10 L, TIBC 380, Iron Saturation 2.6 L, Ferritin 12, Troponin I High Sens 12, Folate 21.60 03/21/24 20:35: Lactic Acid 2.0, Blood Type O POSITIVE, Antibody Screen NEGATIVE, Crossmatch See Detail 03/21/24 20:35: Crossmatch See Detail 03/22/24 01:00: Lactic Acid 2.3 H*, Vitamin B12 473 03/22/24 04:50: WBC 7.7, RBC 2.40 L, Hgb 6.7 L, Hct 20.4 L, MCV 85.0, MCH 27.9, MCHC 32.8, RDW Std Deviation 46.7 H, RDW Coeff of Kierra 15.1 H, Plt Count 170, MPV 9.7, Immature Gran % (Auto) 0.400, Neut % (Auto) 73.7 H, Lymph % (Auto) 13.8 L, [place] % (Auto) 10.7 H, Eos % (Auto) 0.8, Baso % (Auto) 0.6, Absolute Neuts (auto) 5.7, Absolute Lymphs (auto) 1.07, Nucleated RBC % 0, Sodium 143, Potassium 4.3, Chloride 116 H, Carbon Dioxide 21.0, Anion Gap 6, BUN 24 H, Creatinine 0.64, Estim Creat Clear Calc 44.08, Est GFR (MDRD) Af Amer 113, Est GFR (MDRD) Non-Af 93, BUN/Creatinine Ratio 37.3 H, Glucose 106, Calcium 7.6 L, Phosphorus 2.5, Magnesium 1.7, Total Bilirubin 0.70, AST 15, ALT 12 L, Alkaline Phosphatase 39 L, Total Protein 4.4 L, Albumin 2.4 L, Globulin 2.0 L, Albumin/Globulin Ratio 1.2, TSH 1.290 Radiography Diagnostic Testing: Radiology Impression Abdomen/Pelvis CTA 03/21/24 21:23 IMPRESSION: Possible gastric wall thickening. Colonic diverticulosis. Left renal cyst. Possible cholelithiasis. Electronically Signed: Natanaelcrystal Tyler DO at 22:03 EST Reading Location ID and State: [facility] / [place] Tel [phone], Service support , Physical Exam Narrative GENERAL: cooperative HEENT: Atraumatic; normocephalic EYES; Anicteric, Normal Conjunctiva NECK; supple, normal thyroid, RESPIRATORY: Diminished to auscultation CARDIOVASCULAR: Regular S1 S2, GI: soft, normoactive bowel sounds, : No Renal angle tenderness; EXTREMITIES: No edema, no clubbing, MUSCULOSKELETAL: no muscle wasting NEURO: Awake; no lateralizing signs. SKIN: No Rash PSYCH; Flat affect Assessment & Plan Assessment/Plan (1) Acute blood loss anemia: (2) Melena: (3) Dyspnea on exertion: PLAN: Plan Patient is an 83-year-old lady who presented with progressive shortness of breath and generalized weakness. Patient had been seen in the ED 4 days prior for rectal bleed. Acute blood loss anemia ? Per stated by use of patient dual antiplatelet therapy. Imaging studies obtained did show possible gastric wall thickening and colonic diverticulosis.. Patient was started on Protonix transfuse with PRBC kept n.p.o. after midnight and consult placed to GI for possible endoscopic evaluation 2. Hypertension ? Blood pressure controlled, home medications continued with dose adjustment as needed 3. Dyslipidemia ?Patient is on statin therapy, continued at home dose 4. Mild cognitive impairment ? Stable patient is on memantine 5. Restless legs syndrome patient is on pramipexole 6. Previous history of CVA and TIAs ? Patient is on dual antiplatelet therapy held given her presentation 7. Obstructive sleep apnea ? On CPAP at night 8. History of DCIS of the Right breast; s/p lumpectomy of the Right breast - Noted. 9. DVT prophylaxis ? Bilateral SCDs only Time spent in the patient's overall evaluation,decision-making process, review of diagnostic data, adjustment of management, discussion with other providers, nursing nursing and ancillary staff involved in patient's care documentation, 52 Minutes Advance planning; did discuss with the patient and family regarding advanced directives as well as CODE STATUS. Did explain the various scenarios involved ( FULL CODE, DNR CCA, DNR CCA with no intubation, and DNR CC and what each meant) patient elected to be DNR CCA no intubation. Order was placed. Time spent on discussion 18 minutes. Charges/Coding Multi Select Codes Visit Charges Visit Charges: [address] [place] [address] Hospitalists' Procedures Procedures: 11884 Advncd Care Plan 30 Min
[2024-03-22] MEDS: 0.9% Normal Saline (1000mL) 1,000 ML 100 ML IV (09:28)
--- NOTE | 2024-03-22 13:16 | CASEMGMT ---
ANNIE GAUTHIER Assessment ? Face to Face with patient for initial?transition planning/care coordination assessment. RN CM introduced self and role at [facility], pt voices understanding. Pt is A&Ox4 and is resting comfortably in bed and is calm. Care providers, pharmacy, and demographics verified. ? Admitting dx: ?Rectal bleeding LACE Strata: ?3 PCP: ?Vikram Segura Specialists: ?JEFF (Cardio), Suellen (Pulmonary) Preferred Pharmacy: ?[facility] Insurance: ?[facility] DUAL COMPLETE, PETER Prescription Benefit: ?Yes LNOK: ?Amina Ramirez ([facility]), Yasmine Moore ([facility]) Living Arrangements: ?Patient lives in a single-story home with a finished basement. Patient states that she lives on the main level and that she has a friend/roommate that lives in the basement portion. Patient states that there are two steps to enter the home. ADLs/IADLs:?states independent Transportation: ?patient states that she has a license and can drive self but does not currently have a vehicle as she is currently searching for one. Patient states that in the meantime her friends and relatives are able to provide transportation. DME: ?patient has a history with oxygen use through [employer]. Anoop from [employer] states that her current order states 2 L via nasal cannula nocturnal. Pt states that she does not have any of this equipment any longer. Patient also states that she has a medical alert button, walk-in shower with grab bars and a seat, cane, and Rollator. HHC/SNF: ?patient denies history. Patient states that she has a history with outpatient physical therapy through [facility]. Patient states that she is currently in the [employer] program at [facility] [employer] [facility] and goes there often for exercise. D[facility] Home: patient has a rn case manager hospice through [email or web address] [facility] (Myrtle Mcodnald @ [phone]). This licensing manager talked to Myrtle on the phone who stated that the patient has declined aide services as well as delivered meals. Myrtle does state that the patient has a medical alert button through [email or web address]. SW updated. Pt?s goal:?return home and continue working out at [facility] to maintain independence. Plan: ?Anticipate eventual discharge home. 6-Click score is 17 currently. There is no physical therapy or occupational therapy ordered. The patient states that she does not need this ordered. Patient states that she wishes to continue the [employer] program at [facility]. Patient denies needing or wanting a prescription for outpatient physical therapy. Patient also denies home health care needs. Patient states that she is able to get a prescription for outpatient physical therapy through her PCP if she needs. Patient states that she feels safe returning home with her roommate once medically ready and denies further questions or concerns at this time. Tigist Eric RN CM
[2024-03-22 14:10] LABS: Hematocrit 25.1 % (37-47); Hemoglobin 8.7 g/dL (12.0-15.0)
[2024-03-22 14:43] LABS: Pathologist Review Reviewed
--- NOTE | 2024-03-22 16:14 | CASEMGMT ---
Social Work SW met with pt to discuss advance directives. Pt states she has a living will and health care POA naming her daughter Amina Ramirez as decision maker. These documents were brought in today and placed on pt's chart. DAMIAN Palma
--- NOTE | 2024-03-22 17:47 | CON.PCM.GI_ITS ---
HPI Consult Data Date of Consult: 03/22/24 HPI Narrative Reason for Consultation: GI bleeding HPI Narrative: XAVIER RAHMAN, is a 83 F who presents with lower GI bleeding. She is on BASA and Plavix daily, history of GERD; on Protonix, history of GI Bleed; with endoscopy unable to pinpoint source of bleeding. She presented to the ER here on March 18, 2024 with complaints of Rectal Bleeding. Previously she was seen in the ER with complaints of Melena and Hematochezia with hemoglobin of 12.3 g/dL and BUN of 15 mg/dL with serum creatinine of 0.92 mg/dL. 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 The recommendation for potential colonoscopy with prn GoLytely along with 8-10 oz. water daily with instructions to return if her bleeding worsened who now re-presents to [facility] ER complaining of rectal bleeding with continued dark and red stools with shortness of breath and generalized weakness. She unfortunately has continued to have severe rectal bleeding ~2-3 times per day along with corresponding lightheadedness with standing. She then developed GUERRERO with generalized weakness so she decided to come back in for further evaluation and treatment. She denies associated abdominal pain or chest pain but she has continued to take her BASA and Plavix. In the ER she was noted to have Severe ABLA requiring transfusion with a hemoglobin of 5.7 g/dL with elevated BUN of 33 mg/dL and serum creatinine of 0.9 mg/dL present on admission suggesting at least one source of upper GI Bleeding with melanotic stools plus hematochezia suspected to be diverticular in origin with CTA this admission suggestive of gastric wall thickening and colonic diverticulosis with acute bleeding suspected to be due to Adverse Drug Reaction to BASA and Plavix in the setting of a known previous GI Bleed. [facility] Medical History Head injury Laceration of head Inability to ambulate due to knee ZONIA (obstructive sleep apnea) Essential hypertension History of dementia History of CVA in adulthood Recurrent episodes of unresponsiveness TIA (transient ischemic attack) Confusion COPD (chronic obstructive pulmonary disease) Alzheimer's dementia History of GI bleed GERD (gastroesophageal reflux disease) Anxiety and depression COVID-19 Hypertensive emergency without congestive heart failure DCIS (ductal carcinoma in situ) of breast GI bleed Vitamin D deficiency Hypercholesterolemia Arthritis Ductal carcinoma in situ (DCIS) of right breast Fall Hypothyroidism Home Medications ?Medication ?Instructions ?Recorded ?Last Taken ?Type aspirin 81 mg chewable tablet 81 mg PO BREAKFAST #0 tabs 06/15/22 Unknown Rx clopidogrel 75 mg tablet 75 mg PO DAILY #30 tabs 06/15/22 Unknown Rx pantoprazole 40 mg tablet,delayed 40 mg PO DAILY 10/16/22 Unknown History release pramipexole 1.5 mg tablet 1.5 mg PO DAILY 10/16/22 Unknown History valsartan 320 1 tab PO DAILY 10/16/22 Unknown History mg-hydrochlorothiazide 25 mg tablet atorvastatin 40 mg tablet 40 mg PO QHS 04/28/23 Unknown History memantine 10 mg tablet 10 mg PO DAILY 04/28/23 Unknown History amlodipine 5 mg tablet 5 mg PO DAILY 06/11/23 Unknown History albuterol sulfate 90 mcg/actuation 1 - 2 puff inhalation Q4H PRN PRN 06/26/23 Unknown Rx aerosol inhaler (Ventolin HFA) Wheezing ##1 hydralazine 25 mg tablet 12.5 mg PO BID 03/09/24 Unknown History potassium chloride 20 mEq 20 meq PO BID 03/21/24 Unknown History tablet,extended release(part/cryst) Allergy/AdvReac Type Severity Reaction Status Date / Time lisinopril Allergy Mild cough Verified 03/21/24 19:59 alendronate sodium (From Allergy Unknown unknown Verified 03/21/24 19:59 Fosamax) Sulfa (Sulfonamide Allergy Rash Verified 03/21/24 19:59 Antibiotics) atorvastatin (From Lipitor) AdvReac Mild muscle Verified 03/21/24 19:59 aches rosuvastatin (From Crestor) AdvReac Mild muscle Verified 03/21/24 19:59 aches codeine AdvReac Nausea Verified 03/21/24 19:59 NSAIDS (Non-Steroidal AdvReac Bleeding Verified 03/21/24 19:59 Anti-Inflamma Family History Mother Heart disease CVA (cerebral vascular accident) Father Heart disease Surgical History Status post placement of implantable loop recorder (11/08/22) History of right hip replacement History of left mastoidectomy History of lumpectomy of right breast History of thyroid surgery History of hysterectomy Social History household members: spouse Smoking Status: Former smoker how long ago did patient quit smoking: Quit ~ 24-25 years prior. alcohol intake: current alcohol intake frequency: a few times a month details: 1 drink/[place] nightly. substance use type: other details: Given THC chew per her family for sleep but prior no substance use. Physical Exam Narrative GENERAL: cooperative HEENT: Atraumatic; normocephalic EYES; Anicteric, Normal Conjunctiva NECK; supple, normal thyroid, RESPIRATORY: Diminished to auscultation CARDIOVASCULAR: Regular S1 S2, GI: soft, normoactive bowel sounds, : No Renal angle tenderness; EXTREMITIES: No edema, no clubbing, MUSCULOSKELETAL: no muscle wasting NEURO: Awake; no lateralizing signs. SKIN: No Rash PSYCH; Flat affect Lab / Micro Data 03/23/24 06:31 03/23/24 06:31 Labs: Laboratory Results - last 24 hr 03/23/24 06:31: WBC 7.5, RBC 3.37 L, Hgb 9.6 L, Hct 28.2 L, MCV 83.7, MCH 28.5, MCHC 34.0, RDW Std Deviation 46.1 H, RDW Coeff of Kierra 15.1 H, Plt Count 199, MPV 9.5, Immature Gran % (Auto) 0.400, Neut % (Auto) 74.8 H, Lymph % (Auto) 11.0 L, [place] % (Auto) 11.2 H, Eos % (Auto) 1.9, Baso % (Auto) 0.7, Absolute Neuts (auto) 5.6, Absolute Lymphs (auto) 0.82 L, Nucleated RBC % 0, Sodium 138, Potassium 3.3 L, Chloride 111 H, Carbon Dioxide 23.0, Anion Gap 4 L, BUN 11, Creatinine 0.57, Estim Creat Clear Calc 44.08, Est GFR (MDRD) Af Amer 129, Est GFR (MDRD) Non-Af 107, BUN/Creatinine Ratio 19.2, Glucose 91, Calcium 8.5, Phosphorus 2.3 L, Magnesium 1.9 03/23/24 13:30: Urine Color Yellow, Urine Clarity Cloudy, Urine pH 6.0, Ur Specific [place] 1.015, Urine Protein 100 H, Urine Glucose (UA) Normal, Urine Ketones 50 H, Urine Occult Blood 250 H, Urine Nitrite Positive H, Urine Bilirubin Negative, Urine Urobilinogen Normal, Ur Leukocyte Esterase 500 H, Urine RBC > 100 SEEN, Urine WBC >100 SEEN, Ur Squamous Epith Cells 0 SEEN, Urine Bacteria 0 SEEN, Urine Mucus 0 SEEN Assessment & Plan Assessment/Plan (1) Acute blood loss anemia: (2) Melena: (3) Hematochezia due to medication: (4) Adverse drug reaction: QUALIFIERS: Encounter type: initial encounter Qualified Code(s): T50.905A - Adverse effect of unspecified drugs, medicaments and biological substances, initial encounter (5) History of GI bleed: (6) Generalized weakness: (7) Dyspnea on exertion: (8) Alzheimer's dementia: QUALIFIERS: Alzheimer's disease onset: unspecified onset Dementia severity: unspecified severity Dementia behavioral or psychological symptom: w ithout behavioral, psychotic, or mood disturbance or anxiety Qualified Code(s): G30.9 - Alzheimer's disease, unspecified; F02.80 - Dementia in other diseases classified elsewhere, unspecified severity, without behavioral disturbance, psychotic disturbance, mood disturbance, and anxiety PLAN: Plan 83-year-old with severe ABLA requiring transfusion with a hemoglobin of 5.7 g/dL with elevated BUN of 33 mg/dL and serum creatinine of 0.9 mg/dL present on admission suggesting at least one source of upper GI Bleeding with melanotic stools. She also had hematochezia suspected to be diverticular in origin with CTA this admission suggestive of gastric wall thickening (due to likely gastritis and suspected PUD) and colonic diverticulosis. She had an increase in her BUN/creatinine ratio which is highly suspicious for upper GI bleed. She will undergo an upper endoscopy and possibly a colonoscopy depending on the findings. Since she had previous GI bleed of unknown source she would benefit from a capsule endoscopy in the future. She was explained alternatives, risk, benefits include not withstanding bleeding, infection, sepsis, perforation, need for charge and . She will have an ASA of 3. Charges/Coding Visit Charges Inpatient E&M: 24618 Init Hosp L3
[2024-03-23] VITALS (29 sets, daily range): BP systolic 113–162; BP diastolic 41–90; PULSE 67–96; RESP 15–21; TEMP 36.3–37.5; O2SAT 94–99; BMI 21.9
[2024-03-23] MEDS: Pantoprazole Sodium 80 MG in 0.9% Normal Saline (100mL Bag) 80 ML 10 MG CONT INF ×2 (05:28→16:27)
[2024-03-23 07:01] LABS: Anion Gap 4 (5-15); BUN 11 mg/dL (7-18); BUN/Creat Ratio 19.2 RATIO (10-20); Calcium,Total 8.5 mg/dL (8.5-10.1); Chloride 111 mmol/L (98-107); Creatinine, Serum 0.57 mg/dL (0.55-1.02); EST Glomerular Filtration Rate 107 mL/min (>60); Est Glom Filt Rate - Afr Amer 129 mL/min (>60); Estimated Creatinine Clearance 44.08 ml/min; Glucose 91 mg/dL (74-106); Magnesium 1.9 mg/dL (1.6-2.6); Phosphorus 2.3 mg/dL (2.5-4.9); Potassium 3.3 mmol/L (3.5-5.1); Sodium Level 138 mmol/L (136-145)
--- NOTE | 2024-03-23 07:11 | PCM.PN.HOSP ---
Reason for Visit Reason for Visit: Diagnoses Acute posthemorrhagic anemia (03/21/24) Dementia in other diseases classified elsewhere, unspecified severity, without behavioral disturbance, psychotic disturbance, mood disturbance, and anxiety (03/21/24) Alzheimer's disease, unspecified (03/21/24) Melena (03/21/24) Other forms of dyspnea (03/21/24) Weakness (03/21/24) Adverse effect of unspecified drugs, medicaments and biological substances, initial encounter (03/21/24) Personal history of other diseases of the digestive system (03/21/24) Subjective Subjective Patient seen remains in ICU complains of abdominal pain. Awaiting GI input. Diagnostic data reviewed significant for potassium of 3.3 and hemoglobin of 9.6 Objective Data Objective Data Vital Signs: Vital Signs Temp Pulse Resp BP Pulse Ox O2 Del Method 99.1 F 81 16 155/80 H 94 Room Air 03/23/24 06:00 03/23/24 06:00 03/23/24 06:00 03/23/24 06:00 03/23/24 06:00 03/23/24 06:00 Oxygen Delivery Method Room Air Weight: 56.9 kg Body Mass Index (BMI) 22.2 Intake & Output: Intake and Output for Last 24 Hours 03/21/24 03/22/24 03/23/24 23:59 23:59 23:59 Intake Total 110 / 1110 4591.5 / 4591.5 100 / 100 Output Total 3100 / 3400 800 / 800 Balance 110 / 1110 1491.5 / 1191.5 -700 / -700 Lab / Micro Data 03/23/24 06:31 03/23/24 06:31 Labs: Laboratory Results - last 24 hr 03/21/24 19:54: Diff Path Review Reviewed 03/21/24 20:35: Crossmatch See Detail 03/22/24 14:00: Hgb 8.7 L, Hct 25.1 L 03/23/24 06:31: WBC 7.5, RBC 3.37 L, Hgb 9.6 L, Hct 28.2 L, MCV 83.7, MCH 28.5, MCHC 34.0, RDW Std Deviation 46.1 H, RDW Coeff of Kierra 15.1 H, Plt Count 199, MPV 9.5, Immature Gran % (Auto) 0.400, Neut % (Auto) 74.8 H, Lymph % (Auto) 11.0 L, [place] % (Auto) 11.2 H, Eos % (Auto) 1.9, Baso % (Auto) 0.7, Absolute Neuts (auto) 5.6, Absolute Lymphs (auto) 0.82 L, Nucleated RBC % 0, Sodium 138, Potassium 3.3 L, Chloride 111 H, Carbon Dioxide 23.0, Anion Gap 4 L, BUN 11, Creatinine 0.57, Estim Creat Clear Calc 44.08, Est GFR (MDRD) Af Amer 129, Est GFR (MDRD) Non-Af 107, BUN/Creatinine Ratio 19.2, Glucose 91, Calcium 8.5, Phosphorus 2.3 L, Magnesium 1.9 Physical Exam Narrative GENERAL: cooperative HEENT: Atraumatic; normocephalic EYES; Anicteric, Normal Conjunctiva NECK; supple, normal thyroid, RESPIRATORY: Diminished to auscultation CARDIOVASCULAR: Regular S1 S2, GI: soft, normoactive bowel sounds, : No Renal angle tenderness; EXTREMITIES: No edema, no clubbing, MUSCULOSKELETAL: no muscle wasting NEURO: Awake; no lateralizing signs. SKIN: No Rash PSYCH; Flat affect Assessment & Plan Assessment/Plan (1) Acute blood loss anemia: (2) Melena: (3) Dyspnea on exertion: PLAN: Plan Patient is an 83-year-old lady who presented with progressive shortness of breath and generalized weakness. Patient had been seen in the ED 4 days prior for rectal bleed. 1. Acute blood loss anemia ? Precipitated by use of patient dual antiplatelet therapy. Imaging studies obtained did show possible gastric wall thickening and colonic diverticulosis.. Patient was started on Protonix transfuse with PRBC kept n.p.o. after midnight and consult placed to GI for possible endoscopic evaluation ? 03/23/2024; patient has received 3 unit PRBC transfusion. Hemoglobin as of this a.m. 9.6. Awaiting GI input regarding endoscopic evaluation 2. Hypertension ? Blood pressure controlled, home medications continued with dose adjustment as needed 3. Dyslipidemia ?Patient is on statin therapy, continued at home dose 4. Mild cognitive impairment ? Stable patient is on memantine 5. Restless legs syndrome patient is on pramipexole 6. Previous history of CVA and TIAs ? Patient is on dual antiplatelet therapy held given her presentation 7. Obstructive sleep apnea ? On CPAP at night 8. History of DCIS of the Right breast; s/p lumpectomy of the Right breast - Noted. 9. DVT prophylaxis ? Bilateral SCDs only 10. Hypokalemia -corrected for protocol repeat labs ordered in a.m. for follow-up Time spent in the patient's overall evaluation,decision-making process, review of diagnostic data, adjustment of management, discussion with other providers, nursing nursing and ancillary staff involved in patient's care documentation, 50 Minutes Charges/Coding Visit Charges Inpatient E&M: 59084 [facility] Hosp L3
[2024-03-23] MEDS: oxyCODONE 5 MG Tablet PO (08:53)
--- NOTE | 2024-03-23 09:54 | CASEMGMT ---
Social Work- SW spoke with nurse who shared that pt dtr has concerns about pt d/c home due to confusion. PT has been noted to be A & O x3 while admitted. SW encouraged nurse to ask for PT/OT/ST evals to ensure that there are no additional needs. Pt has [facility] involvement and participates in [employer] program. SW will remain available to follow for discharge needs. DAMIAN Dumas
--- NOTE | 2024-03-23 11:10 | CASEMGMT ---
Social Work- SW met with pt and dtr, Amina, to discuss dtr concerns regarding pt physical and cognitive decline. Per pt dtr, pt was diagnosed 5 years ago with early Alzeihmers/mild dementia. Amina has been working with physician for the previous year towards guardianship. Amina reports previous OT therapies recommended pt not drive and noted cognitive decline. Pt does not drive currently due to that recommendation. Pt was observed to create narratives that portrayed increased abilities and talked extensively about cooking for herself, healthy eating, exercising at [facility], etc. but when dtr asked about specific instances or timelines, pt was unable to provide information or it was shared by pt that the activities had happened weeks prior. Pt insists that she does not want help in the home and that she is independent. SW provided education on [facility] programs and meals on wheels, as well as SNF. Pt is agreeable to PT/OT/ST evaluations. Plans at d/c pending eval results. SW remains available to follow. DAMIAN Dumas
[2024-03-23 13:50] LABS: Bacteria 0 SEEN /hpf (None Seen); Mucous, Urine 0 SEEN /hpf (<or=2+); Squamous Epithelial Cells - UA 0 SEEN /hpf (5-10)
[2024-03-23 13:53] LABS: Color, Urine Yellow (Yellow); Glucose, Dipstick Normal (Normal); Ketone-Dipstick 50 mg/dl (Negative); Leukocyte Esterase-Dipstick 500 /ul (Negative); Nitrite-Dipstick Positive (Negative); Occult Blood-Urine 250 /ul (Negative); Protein-Dipstick 100 mg/dl (Negative); Specific Gravity, Urine 1.015 (1.002-1.030); Urine Bilirubin Dipstick Negative (Negative); Urine Clarity Cloudy (Clear); Urine Urobilinogen Normal (Normal)
[2024-03-23 14:00] LABS: Red Blood Cells-Urine > 100 SEEN /hpf (0-5); White Blood Cells >100 SEEN /hpf (0-5)
[2024-03-23] MEDS: Ceftriaxone 1 GM/50 ML BAG IV (15:37)
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
--- NOTE | 2024-03-23 17:51 | PCM.POST.ANE ---
Anesthesia: Postop Eval I Current Vital Signs Temperature: 98.1 F Pulse Rate: 86 Blood Pressure: 127/74 Respiratory Rate: 16 Pulse Ox: 97 Oxygen Delivery Method: Room Air Assessment Airway patent: Yes Spontaneous unlabored respirations: Yes Mental status: Asleep nausea: No Vomiting: No Anesthesia Complication: No Fluid Hydration Crystalloid volume administer (ml): 40 Total IV fluid infused: 40 Progress Note Anesthesia document: Postop Eval 1 completed: Yes
--- NOTE | 2024-03-23 18:00 | OP.CCLET_ITS ---
03/23/2024 Vikram Segura [address] [place] [address] Re : Upper GI endoscopy procedure for Radha Ramirez Dear Dr. Segura This procedure was performed on Saturday, March 23, 2024. My impressions and recommendations are as follows: Impressions : - Normal esophagus. - Hematin (altered blood/bdosrb-adqfuq-icmv material) in the gastric body. - Red blood in the gastric body. - Three bleeding angiodysplastic lesions in the stomach. Treated with a heater probe. - Normal first portion of the duodenum. - No specimens collected. Recommendations : - [facility]. - Full liquid diet today. - Continue present medications. - Use sucralfate tablets 1 gram PO QID for 7 days. My findings are described in the full procedure note, which is enclosed. If I can be of further assistance, please feel free to contact me at . Sincerely, Brad Wnislow, 03/23/2024 6:00:12 PM This report has been signed electronically.
--- NOTE | 2024-03-23 18:00 | OP.EGD_ITS ---
Patient Name: Radha Ramirez Procedure Date: 03/23/2024 4:43 PM Date of : 1940 Age: 83 Procedure: Upper GI endoscopy Indications: Acute post hemorrhagic anemia, Iron deficiency anemia, Recent gastrointestinal bleeding Providers: Brad Winslow DO Referring MD: Sangita Lima Medicines: Monitored Anesthesia Care Patient Profile: This is an 83 year old female. Refer to note in patient chart for documentation of history and physical. Patient has symptoms. Complications: No immediate complications. Procedure: Pre-Anesthesia Assessment: - Prior to the procedure, a History and Physical was performed, and patient medications and allergies were reviewed. The patient is competent. The risks and benefits of the procedure and the sedation options and risks were discussed with the patient. All questions were answered and informed consent was obtained. Patient identification and proposed procedure were verified by the physician in the pre-procedure area. Mental Status Examination: alert and oriented. Airway Examination: normal oropharyngeal airway and neck mobility. Respiratory Examination: clear to auscultation. CV Examination: normal. Prophylactic Antibiotics: The patient does not require prophylactic antibiotics. Prior Anticoagulants: The patient has taken no anticoagulant or antiplatelet agents except for NSAID medication. ASA Grade Assessment: II - A patient with mild systemic disease. After reviewing the risks and benefits, the patient was deemed in satisfactory condition to undergo the procedure. The anesthesia plan was to use monitored anesthesia care (MAC). Immediately prior to administration of medications, the patient was re-assessed for adequacy to receive sedatives. The heart rate, respiratory rate, oxygen saturations, blood pressure, adequacy of pulmonary ventilation, and response to care were monitored throughout the procedure. The physical status of the patient was re-assessed after the procedure. After obtaining informed consent, the endoscope was passed under direct vision. Throughout the procedure, the patient's blood pressure, pulse, and oxygen saturations were monitored continuously. The gastroscope was introduced through the mouth, and advanced to the second part of duodenum. The upper GI endoscopy was accomplished without difficulty. The patient tolerated the procedure well. Scope In: 5:35:47 PM Scope Out: 5:44:03 PM Total Procedure Duration Time 0 hours 8 minutes 16 seconds Findings: The examined esophagus was normal. Hematin (altered blood/mflhbb-lxumbf-naqh material) was found in the gastric body. Red blood was found in the gastric body. Three 5 mm angiodysplastic lesions with bleeding were found in the gastric body and on the greater curvature of the stomach. Coagulation for hemostasis using heater probe was successful. Estimated blood loss was minimal. The first portion of the duodenum was normal. Impression: - Normal esophagus. - Hematin (altered blood/rfmikg-yuebir-swrd material) in the gastric body. - Red blood in the gastric body. - Three bleeding angiodysplastic lesions in the stomach. Treated with a heater probe. - Normal first portion of the duodenum. - No specimens collected. Recommendation: - [facility]. - Full liquid diet today. - Continue present medications. - Use sucralfate tablets 1 gram PO QID for 7 days. Procedure Code(s): --- Professional --- 96084, Esophagogastroduodenoscopy, flexible, transoral; with control of bleeding, any method CPT copyright 2021 [employer]. All rights reserved. The codes documented in this report are preliminary and upon solar energy system installer helper review may be revised to meet current compliance requirements. Brad Winslow DO 03/23/2024 6:00:12 PM This report has been signed electronically. Number of Addenda: 0 Note Initiated On: 03/23/2024 4:43 PM
--- NOTE | 2024-03-23 18:00 | PCM.POSTANE2 ---
Anesthesia Postop Eval I Sum Postop Eval Completion status Anesthesia document: Postop Eval 1 completed: Yes Anesthesia Postop Eval I Summary Anesthesia Postop Eval I Summary: Anesthesia Postop Eval I: Assessment Summary Airway patent Yes 03/23/24 17:52 [email or web address] Spontaneous unlabored Yes 03/23/24 17:52 [email or web address] respirations Mental status Asleep 03/23/24 17:52 [email or web address] nausea No 03/23/24 17:52 [email or web address] Vomiting No 03/23/24 17:52 [email or web address] Anesthesia Postop Eval I: Fluid Summary Crystalloid volume administer 40 03/23/24 17:52 [email or web address] (ml) Colloids volume administered ( ml) Blood Product volume administered (ml) Total IV fluid infused 40 03/23/24 17:52 [email or web address] Anesthesia Postop Eval I: Summary Notes Anesthesia Complication No 03/23/24 17:52 [email or web address] Anesthesia Complication Comment: Post-operative progress note Anesthesia: Postop Eval II Evaluation Mental status: Awake Pain Level: 0 nausea: No Vomiting: No
[2024-03-23] MEDS: Pantoprazole Sodium 40 MG Tablet PO (21:25)
[2024-03-23] MEDS: Sucralfate 1 GM Tablet PO (21:25)
[2024-03-23] MEDS: MELATONIN 3 MG TABLET 6 MG PO (23:50)
[2024-03-24] VITALS (16 sets, daily range): BP systolic 102–142; BP diastolic 48–88; PULSE 59–86; RESP 15–19; TEMP 36.2–36.8; O2SAT 94–99; BMI 21.6
[2024-03-24 05:48] LABS: Absolute Lymphocyte Count 0.82 X10^3/uL (0.83-4.51); Absolute Neutrophil Count 5.6 X10^3/uL (2.0-7.7); Basophil# 0.07 X10^3/uL; Basophil% 0.9 % (0-1); Eosinophil# 0.29 X10^3/uL; Eosinophils% 3.7 % (0-5); Hematocrit 26.6 % (37-47); Hemoglobin 8.9 g/dL (12.0-15.0); Lymphocyte # 0.82 X10^3/ul (0.83-4.51); Lymphocyte % 10.5 % (19-41); Mean Corp Hgb Conc 33.5 g/dL (32-36); Mean Corpuscular Hgb 28.8 pg (27.0-32.0); Mean Corpuscular Volume 86.1 fL (81-99); Mean Platelet Vol. 9.8 fl (6.2-12.0); Monocyte% 12.8 % (0-10); NRBC Flagged by Analyzer 0 % (0-5); Neutrophil # 5.61 X10^3/uL (2.7-7.7); Neutrophil % 71.5 % (47-70); Platelet Count 232 K/mm3 (150-450); RBC Distribution Width CV 15.4 % (11.6-14.6); RBC Distribution Width SD 47.6 fl (35.1-43.9); Red Blood Count 3.09 M/mm3 (4.2-5.4); White Blood Count 7.8 K/mm3 (4.4-11.0)
[2024-03-24 06:07] LABS: Anion Gap 4 (5-15); BUN 14 mg/dL (7-18); BUN/Creat Ratio 19.5 RATIO (10-20); Calcium,Total 8.2 mg/dL (8.5-10.1); Chloride 109 mmol/L (98-107); Creatinine, Serum 0.72 mg/dL (0.55-1.02); EST Glomerular Filtration Rate 82 mL/min (>60); Est Glom Filt Rate - Afr Amer 100 mL/min (>60); Estimated Creatinine Clearance 44.08 ml/min; Glucose 99 mg/dL (74-106); Potassium 3.6 mmol/L (3.5-5.1); Sodium Level 137 mmol/L (136-145)
[2024-03-24] MEDS: Sucralfate 1 GM Tablet PO ×4 (06:25→22:23)
[2024-03-24] MEDS: 0.9% Saline Lock 10 ML Syringe IV ×3 (06:27→10:08)
[2024-03-24 06:47] LABS: Bedside Glucose 84 mg/dL (74-106)
[2024-03-24] MEDS: Ensure Clear 120 ML Liquid PO ×3 (08:54→17:24)
[2024-03-24] MEDS: Ceftriaxone 1 GM/50 ML BAG IV (09:02)
[2024-03-24] MEDS: 0.9% Normal Saline (500mL Bag) 500 ML 15 ML IV (09:03)
[2024-03-24] MEDS: Pantoprazole Sodium 40 MG Tablet PO ×2 (09:08→22:23)
[2024-03-24] MEDS: Memantine Hydrochloride 10 MG Tablet PO (09:10)
--- NOTE | 2024-03-24 09:59 | NURSING ---
spoke to patient and daughter in law regarding her med list. Pt is not sure what medications that she is on. Pt will have family bring in medications.
--- NOTE | 2024-03-24 11:37 | PCM.PN.HOSP ---
Reason for Visit Reason for Visit: Diagnoses Acute posthemorrhagic anemia (03/21/24) Dementia in other diseases classified elsewhere, unspecified severity, without behavioral disturbance, psychotic disturbance, mood disturbance, and anxiety (03/21/24) Alzheimer's disease, unspecified (03/21/24) Melena (03/21/24) Other forms of dyspnea (03/21/24) Weakness (03/21/24) Adverse effect of unspecified drugs, medicaments and biological substances, initial encounter (03/21/24) Personal history of other diseases of the digestive system (03/21/24) Subjective Subjective Saw patient at bedside this morning, [id number] present. Patient was sitting up comfortably in bedside chair, conversing normally, in no acute distress. Was given permission by GI to start a regular diet this morning and she was happy about this. Denied any GERD symptoms. Has not had any bowel movement since prior to the EGD. No other acute concerns at this time. Objective Data Objective Data Vital Signs: Vital Signs Temp Pulse Resp BP Pulse Ox O2 Del Method 97.1 F L 77 18 102/48 L 99 Room Air 03/24/24 11:00 03/24/24 11:00 03/24/24 11:00 03/24/24 11:00 03/24/24 11:00 03/24/24 11:00 Oxygen Delivery Method Room Air Weight: 55.4 kg Body Mass Index (BMI) 21.6 Intake & Output: Intake and Output for Last 24 Hours 03/22/24 03/23/24 03/24/24 23:59 23:59 23:59 Intake Total 4591.5 / 4591.5 818.5 / 818.5 182.5 / 182.5 Output Total 3100 / 3400 1620 / 1620 150 / 150 Balance 1491.5 / 1191.5 -801.5 / -801.5 32.5 / 32.5 Lab / Micro Data 03/24/24 05:38 03/24/24 05:38 Labs: Laboratory Results - last 24 hr 03/23/24 06:31: WBC Cancelled, Corrected WBC Cancelled, RBC Cancelled, Hgb Cancelled, Hct Cancelled, MCV Cancelled, MCH Cancelled, MCHC Cancelled, RDW Std Deviation Cancelled, RDW Coeff of Kierra Cancelled, Plt Count Cancelled, MPV Cancelled, Immature Gran % (Auto) Cancelled, Neut % (Auto) Cancelled, Lymph % (Auto) Cancelled, [place] % (Auto) Cancelled, Eos % (Auto) Cancelled, Baso % (Auto) Cancelled, Absolute Neuts (auto) Cancelled, Absolute Lymphs (auto) Cancelled, Total Counted Cancelled, Neutrophils % (Manual) Cancelled, Band Neutrophils % Cancelled, Lymphocytes % (Manual) Cancelled, Monocytes % (Manual) Cancelled, Eosinophils % (Manual) Cancelled, Basophils % (Manual) Cancelled, Metamyelocytes % Cancelled, Myelocytes % Cancelled, Promyelocytes % Cancelled, Blast Cells % Cancelled, Plasma Cell % (Manual) Cancelled, Other Cells % Cancelled, Nucleated RBC % Cancelled, Nucleated RBCs/100 WBC Cancelled, Differential Comment Cancelled, Diff Path Review Cancelled, Hypersegmented Neuts Cancelled, Atypical Lymphocytes Cancelled, Reactive Lymphocytes Cancelled, Smudge Cells Cancelled, Toxic Granulation Cancelled, Toxic Vacuolation Cancelled, Dohle Bodies Cancelled, Sharon Rods Cancelled, Platelet Estimate Cancelled, Plt Morphology Comment Cancelled, RBC Morphology Cancelled 03/23/24 06:31: RBC Morphology Cancelled, Polychromasia Cancelled, Hypochromasia Cancelled, Basophilic Stippling Cancelled, Anisocytosis Cancelled, Microcytosis Cancelled, Macrocytosis Cancelled, Spherocytes Cancelled, Sickle Cells Cancelled, Target Cells Cancelled, Tear Drop Cells Cancelled, Ovalocytes Cancelled, Stomatocytes Cancelled, [place] Bodies Cancelled, [place] Cells Cancelled, Bite Cells Cancelled, Crenated Cell Cancelled, Acanthocytes (Spur) Cancelled, Rouleaux Cancelled, Schistocytes Cancelled 03/23/24 13:30: Urine Color Yellow, Urine Clarity Cloudy, Urine pH 6.0, Ur Specific Lucas 1.015, Urine Protein 100 H, Urine Glucose (UA) Normal, Urine Ketones 50 H, Urine Occult Blood 250 H, Urine Nitrite Positive H, Urine Bilirubin Negative, Urine Urobilinogen Normal, Ur Leukocyte Esterase 500 H, Urine RBC > 100 SEEN, Urine WBC >100 SEEN, Ur Squamous Epith Cells 0 SEEN, Urine Bacteria 0 SEEN, Urine Mucus 0 SEEN 03/24/24 05:38: WBC 7.8, RBC 3.09 L, Hgb 8.9 L, Hct 26.6 L, MCV 86.1, MCH 28.8, MCHC 33.5, RDW Std Deviation 47.6 H, RDW Coeff of Kierra 15.4 H, Plt Count 232, MPV 9.8, Immature Gran % (Auto) 0.600, Neut % (Auto) 71.5 H, Lymph % (Auto) 10.5 L, [place] % (Auto) 12.8 H, Eos % (Auto) 3.7, Baso % (Auto) 0.9, Absolute Neuts (auto) 5.6, Absolute Lymphs (auto) 0.82 L, Nucleated RBC % 0, Sodium 137, Potassium 3.6, Chloride 109 H, Carbon Dioxide 24.0, Anion Gap 4 L, BUN 14, Creatinine 0.72, Estim Creat Clear Calc 44.08, Est GFR (MDRD) Af Amer 100, Est GFR (MDRD) Non-Af 82, BUN/Creatinine Ratio 19.5, Glucose 99, Calcium 8.2 L 03/24/24 06:23: POC Glucose 84 Micro: Microbiology 03/23/24 13:30 Urine Catheter - Catheter Urine Culture - Preliminary 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 General Appearance: cooperative and comfortable HEENT normocephalic, head/scalp atraumatic, hearing grossly normal bilaterally, nasal mucous membranes and turbinates normal and moist oral mucous membranes Eyes PERRL, EOMs intact bilaterally and conjunctivae normal Neck full ROM Chest inspection of chest normal Resp normal respiratory effort, normal air movement, no use of accessory muscles and clear to auscultation bilaterally Cardio regular rate, regular rhythm, no murmurs and peripheral pulses 2+ throughout GI normal to inspection, nondistended, normoactive bowel sounds, soft to palpation, non-tender and non-distended Back/Spine normal ROM Extremity normal to inspection, full ROM and no pedal edema Skin no rashes or lesions noted Psych mental status grossly normal Assessment & Plan Assessment/Plan (1) GI (gastrointestinal bleed): (2) Acute blood loss anemia: PLAN: Plan Patient is an 83-year-old female who presented [facility] ED on 03/21/2024 with weakness and dark stools. 1. Acute blood loss anemia with melena secondary to upper GI bleed ? GI following. 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 Hemoglobin 5.7 on admit on 03/21, down from hemoglobin 12.3 on 03/18. Transfused 3 units of blood total with repeat hemoglobin 8.7. Hemoglobin remaining stable. Follow-up a.m. CBC. Continue p.o. PPI twice daily and sucralfate per GI recs. If hemoglobin stable tomorrow, will plan for discharge home. Will plan to restart aspirin and Plavix on discharge. 2. Suspected UTI ? UA on admit showed 500 leukocyte esterase, positive nitrites but 0 bacteria. Urine culture preliminary positive for greater than 100,000 gram-negative rods. Continue treatment with IV ceftriaxone, follow-up final urine culture results. 3. History of CVA/TIA ? No residual deficits. Holding home aspirin and Plavix for now, will plan to restart on discharge. Continue home statin. 4. Chronic debility ? PT/OT/case management evaluated. Patient lives at home alone but does have family close by to help as needed. Did well with therapy on 03/24, okay for discharge home with no needs. Chronic medical conditions: ? Hypertension: Home valsartan?hydrochlorothiazide, amlodipine and hydralazine held on admission. Blood pressures have remained normotensive to mildly hypotensive since admission, will continue to hold home meds for now. Will need to determine medication regimen on discharge. ? Hyperlipidemia: Continue home statin. ? Alzheimer's dementia: Stable. Continue home memantine. DVT prophylaxis: SCDs CODE STATUS: DNR CCA, DNI Expected disposition: Home, 1 to 2 days Total clinical time spent by myself addressing the patient's medical issues, reviewing all the data, and collaborating with patient's care team: 35 minutes. Charges/Coding Visit Charges Inpatient E&M: 29180 Subs Hosp L2
[2024-03-24] MEDS: Pramipexole Di-HCl 0.5 MG Tablet 1.5 MG PO (22:23)
[2024-03-24] MEDS: MELATONIN 3 MG TABLET 6 MG PO (22:23)
[2024-03-25 05:30] VITALS: BP 147/73; PULSE 68; RESP 18; TEMP 36.6; O2SAT 96
[2024-03-25] MEDS: Sucralfate 1 GM Tablet PO ×2 (05:31→12:14)
[2024-03-25 06:00] VITALS: BMI 21.6
[2024-03-25 08:08] LABS: Anion Gap 8 (5-15); BUN 18 mg/dL (7-18); BUN/Creat Ratio 26.2 RATIO (10-20); Calcium,Total 8.4 mg/dL (8.5-10.1); Chloride 108 mmol/L (98-107); Creatinine, Serum 0.69 mg/dL (0.55-1.02); EST Glomerular Filtration Rate 87 mL/min (>60); Est Glom Filt Rate - Afr Amer 105 mL/min (>60); Estimated Creatinine Clearance 44.08 ml/min; Glucose 97 mg/dL (74-106); Potassium 3.1 mmol/L (3.5-5.1); Sodium Level 140 mmol/L (136-145)
[2024-03-25 09:05] LABS: Hematocrit 28.1 % (37-47); Hemoglobin 9.3 g/dL (12.0-15.0); Mean Corp Hgb Conc 33.1 g/dL (32-36); Mean Corpuscular Hgb 29.1 pg (27.0-32.0); Mean Corpuscular Volume 87.8 fL (81-99); Mean Platelet Vol. 10.3 fl (6.2-12.0); Platelet Count 275 K/mm3 (150-450); RBC Distribution Width CV 15.5 % (11.6-14.6); RBC Distribution Width SD 48.5 fl (35.1-43.9); White Blood Count 8.2 K/mm3 (4.4-11.0)
[2024-03-25] MEDS: Ensure Clear 120 ML Liquid PO ×2 (09:58→12:14)
[2024-03-25] MEDS: Pantoprazole Sodium 40 MG Tablet PO (09:59)
[2024-03-25] MEDS: Memantine Hydrochloride 10 MG Tablet PO (09:59)
[2024-03-25 10:00] VITALS: RESP 18
[2024-03-25] MEDS: Ceftriaxone 1 GM/50 ML BAG IV (10:02)
[2024-03-25 10:18] VITALS: BP 113/52; PULSE 83; RESP 18; TEMP 36.6; O2SAT 98
[2024-03-25 10:28] VITALS: BP 113/52; PULSE 83; RESP 18; TEMP 36.6; O2SAT 98
--- NOTE | 2024-03-25 12:08 | PCM.DC.SUM ---
Providers Date of Admission: 03/21/24 Primary Care Physician: Dr. Vikram Segura MD Consultations 03/22/24 05:21 Consult: Gastroenterology Routine Consulting Provider: [facility] Reason for Consult: Rectal Bleed with Melena and Hematochezia on BASA and Plavix. EMERGENT Consult: No MD Notified: Yes Date Notified: 03/22/24 Time Notified: 05:21 Method of Notification: ED Physician Initiated Reason For Visit: RECTAL BLEEDING WITH MEANOTIC STOOLS Diagnosis Discharge Diagnosis (1) GI (gastrointestinal bleed): Status: Acute Code(s): K92.2 - Gastrointestinal hemorrhage, unspecified (2) Acute blood loss anemia: Status: Acute Code(s): D62 - Acute posthemorrhagic anemia Medications at Discharge Home Medications aspirin 81 mg chewable tablet 81 mg PO BREAKFAST #0 tabs 06/15/22 clopidogrel 75 mg tablet 75 mg PO DAILY #30 tabs 06/15/22 pramipexole 1.5 mg tablet 1.5 mg PO DAILY 10/16/22 valsartan 320 mg-hydrochlorothiazide 25 mg tablet 1 tab PO DAILY 10/16/22 atorvastatin 40 mg tablet 40 mg PO QHS 04/28/23 memantine 10 mg tablet 10 mg PO DAILY 04/28/23 amlodipine 5 mg tablet 5 mg PO DAILY 06/11/23 albuterol sulfate 90 mcg/actuation aerosol inhaler (Ventolin HFA) 1 - 2 puff inhalation Q4H PRN PRN Wheezing ##1 06/26/23 hydralazine 25 mg tablet 12.5 mg PO BID 03/09/24 potassium chloride 20 mEq tablet,extended release(part/cryst) 20 meq PO BID 03/21/24 ciprofloxacin HCl 250 mg tablet (Cipro) 250 mg PO BID 3 days #6 tabs 03/25/24 pantoprazole 40 mg tablet,delayed release 40 mg PO BID 30 days #60 tabs 03/25/24 sucralfate 1 gram tablet 1 g PO 1HR_ACHS 7 days #28 tabs 03/25/24 Hospital Course Operations None Procedures EGD, EKG and - (CTA abdomen pelvis) Summary of Care Provided Minutes Spent on Discharge: 35 Hospital Course: Patient is an 83-year-old female who presented [facility] ED on 03/21/2024 with weakness and dark stools. Hospital course as noted below. Patient discharged home with no therapy needs in stable condition on 03/25. 1. Acute blood loss anemia with melena secondary to upper GI bleed ? GI followed. 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 Hemoglobin 5.7 on admit on 03/21, down from hemoglobin 12.3 on 03/18. Transfused 3 units of blood total with repeat hemoglobin 8.7. Hemoglobin remained stable and patient with no recurrence of dark or bloody stools. Continue p.o. PPI twice daily and sucralfate for 1 week on discharge per GI recs. Okay to resume aspirin and Plavix on discharge but gave patient strict instructions to return to the ED if there is any recurrence of GI bleed. 2. UTI ? UA on admit showed 500 leukocyte esterase, positive nitrites but 0 bacteria. Urine culture positive for greater than 100,000 Klebsiella. Treated with IV ceftriaxone while inpatient, discharged on p.o. ciprofloxacin to complete course of antibiotics. 3. History of CVA/TIA ? No residual deficits. Held home aspirin and Plavix while inpatient, okay to restart on discharge. Continue home statin. 4. Chronic debility ? PT/OT/case management evaluated. Patient lives at home alone but does have family close by to help as needed. Did well with therapy on 03/24, okay for discharge home with no needs. 5. Hypertension ? Home valsartan?hydrochlorothiazide, amlodipine and hydralazine held on admission. Blood pressures remained normotensive during hospitalization. Okay to resume home amlodipine but will hold valsartan?hydrochlorothiazide and hydralazine for now. Recommended patient follow-up with PCP to determine timing of restarting these medications. Chronic medical conditions: ? Hyperlipidemia: Continue home statin. ? Alzheimer's dementia: Stable. Continue home memantine. Total clinical time spent by myself addressing the patient's medical issues, reviewing all the data, and collaborating with patient's care team: 35 minutes. Physical Exam Const alert, oriented x3, no apparent distress and average body habitus Constitutional Narrative: Pleasant elderly female, good energy level, sitting up comfortably in bedside chair, conversing normally, in no acute distress. General Appearance: cooperative and comfortable HEENT normocephalic, head/scalp atraumatic, hearing grossly normal bilaterally, nasal mucous membranes and turbinates normal and moist oral mucous membranes Eyes PERRL, EOMs intact bilaterally and conjunctivae normal Neck full ROM Chest inspection of chest normal Resp normal respiratory effort, normal air movement, no use of accessory muscles and clear to auscultation bilaterally Cardio regular rate, regular rhythm, no murmurs and peripheral pulses 2+ throughout GI normal to inspection, nondistended, normoactive bowel sounds, soft to palpation, non-tender and non-distended Back/Spine normal ROM Extremity normal to inspection, full ROM and no pedal edema Skin no rashes or lesions noted Psych mental status grossly normal Weight / BMI Weight Weight: 55.3 kg Body Mass Index (BMI) 21.6 ABG / Lab / Microbiology Data 03/25/24 06:32 03/25/24 06:32 Laboratory: Laboratory Results - last 24 hr 03/25/24 06:32: WBC 8.2, RBC 3.20 L, Hgb 9.3 L, Hct 28.1 L, MCV 87.8, MCH 29.1, MCHC 33.1, RDW Std Deviation 48.5 H, RDW Coeff of Kierra 15.5 H, Plt Count 275, MPV 10.3, Sodium 140, Potassium 3.1 L, Chloride 108 H, Carbon Dioxide 25.0, Anion Gap 8, BUN 18, Creatinine 0.69, Estim Creat Clear Calc 44.08, Est GFR (MDRD) Af Amer 105, Est GFR (MDRD) Non-Af 87, BUN/Creatinine Ratio 26.2 H, Glucose 97, Calcium 8.4 L Microbiology: Microbiology 03/23/24 13:30 Urine Catheter - Catheter Urine Culture - Final Klebsiella pneumoniae sp pneum D/C Instructions DC O2, CPAP, BIPAP Needs Additional Home O2 Discharge instructions: No DC home with Oxygen: No Meaningful Use Info Meaningful Use Meaningful Use Diagnoses (Choose all that apply): None applicable Ischemic Stroke Statin Dosing Therapy Reference: STATIN DOSE THERAPY REFERENCE: * Patients > 75 years receive moderate or high dose statin therapy. * Patients 75 years or YOUNGER should receive HIGH intensity statin dose unless contraindicated. You will be required to document reason for non-treatment if statin daily dose does not meet guidelines. HIGH DOSE STATIN THERAPY DAILY Atorvastatin > than or = to 40 mg Rosuvastatin > than or = to 20 mg Amlodipine + Atorvastatin > than or = to 2.5/40 mg Ezetimibe + Simvastatin 10/80 mg Simvastatin 80mg Discharge Plan Admission Admit Date/Time: 03/21/24 22:38 Primary Reason for Your Visit: GI bleed Attending Provider: Bordie Swartz Primary Care Provider: Vikram Segura Consulting Providers: Lamin Ritter; Lamin Griffith Instructions Additional Instructions / Restrictions: ? Please take pantoprazole twice daily going forward and sucralfate 1 tablet before meals and at bedtime for the next 7 days for your stomach ulcers. ? Please hold off on taking the hydralazine and valsartan?hydrochlorothiazide blood pressure medications for now. Your blood pressure was normal to borderline low here off of these medications. Please discuss with your primary care doctor before restarting them. ? You are okay to restart aspirin and Plavix. However if you have any signs of dark stools or bloody stools, please come back into the hospital for further evaluation. ? Please take ciprofloxacin for 3 more days to complete a 7-day course of antibiotics for your UTI. Discharge Orders/Prescriptions Prescriptions: New sucralfate 1 gram Tablet 1 g PO 1HR_ACHS 7 Days Qty: 28 0RF pantoprazole 40 mg Tablet,Delayed Release (Dr/Ec) 40 mg PO BID 30 Days Qty: 60 2RF ciprofloxacin HCl [Cipro] 250 mg tablet 250 mg PO BID 3 Days Qty: 6 0RF Continued aspirin 81 mg Tablet,Chewable 81 mg PO BREAKFAST Qty: 0 0RF clopidogrel 75 mg Tablet 75 mg PO DAILY Qty: 30 0RF pramipexole 1.5 mg tablet 1.5 mg PO DAILY Patient Comments: TAKE 1 TABLET 2 TO 3 HOURS BEFORE BEDTIME FOR RESTLESS LEGS memantine 10 mg tablet 10 mg PO DAILY atorvastatin 40 mg tablet 40 mg PO QHS amlodipine 5 mg tablet 5 mg PO DAILY albuterol sulfate [Ventolin HFA] 90 mcg/actuation HFA aerosol inhaler 1 - 2 puff inhalation Q4H PRN PRN (Reason: Wheezing) Qty: 1 0RF potassium chloride 20 mEq tablet,ER particles/crystals 20 meq PO BID Held valsartan-hydrochlorothiazide 320-25 mg tablet 1 tab PO DAILY Hold Instructions: Resume on 04/09/24. hydralazine 25 mg tablet 12.5 mg PO BID Hold Instructions: Resume on 04/09/24. Discontinued pantoprazole 40 mg tablet,delayed release (DR/EC) 40 mg PO DAILY Referrals / Follow Up: Vikram Segura MD [Primary Care Provider] - Friend,DO Brad [Med Staff - Active Staff] - Disposition Disposition (needs filled in before D/C Order can be placed): Home, Self Care Charges/Coding Visit Charges Inpatient E&M: 72812 Disch Hosp >30min
[2024-03-25 13:09] VITALS: BP 130/59; PULSE 78; RESP 18; TEMP 37; O2SAT 99
[2024-03-26 11:08] LABS: Vitamin D 1,25-Dihydroxy 23.4 pg/mL (24.8-81.5)
== END 2024-03-25 13:33 | disposition home or self-care (01) | DRG 378 ==
LOC: ED 22:41 → ICU 03-22 05:05 → MS3 03-24 11:07
PROVIDERS: Internal Medicine; Internal Medicine Gastroenterology; Admitting Provider Internal Medicine; Emergency Provider Emergency Medicine; PCP Family Medicine; Referring Provider Emergency Medicine; Visit Provider Hospitalist
PROC: 0DJ08ZZ Inspection of Upper Intestinal Tract, Via Natural or Artificial Opening Endoscopic (ICD-10-PCS; CPT 43235; principal; 2024-03-23 12:55)
DX: K62.5 Hemorrhage of anus and rectum (principal); D62 Acute posthemorrhagic anemia; D68.32 Hemorrhagic disorder due to extrinsic circulating anticoagulants; N39.0 Urinary tract infection, site not specified; B96.1 Klebsiella pneumoniae [K. pneumoniae] as the cause of diseases classified elsewhere; Z66 Do not resuscitate; F02.80 Dementia in other diseases classified elsewhere, unspecified severity, without behavioral disturbance, psychotic disturbance, mood disturbance, and anxiety; J44.9 Chronic obstructive pulmonary disease, unspecified; E03.9 Hypothyroidism, unspecified; I10 Essential (primary) hypertension; G25.81 Restless legs syndrome; G47.33 Obstructive sleep apnea (adult) (pediatric); G30.9 Alzheimer's disease, unspecified; K57.30 Diverticulosis of large intestine without perforation or abscess without bleeding; K21.9 Gastro-esophageal reflux disease without esophagitis; K29.70 Gastritis, unspecified, without bleeding; E78.00 Pure hypercholesterolemia, unspecified; E87.6 Hypokalemia; K59.00 Constipation, unspecified; Z87.891 Personal history of nicotine dependence; Z86.73 Personal history of transient ischemic attack (TIA), and cerebral infarction without residual deficits; Z79.82 Long term (current) use of aspirin; Z86.16 Personal history of COVID-19; Z79.83 Long term (current) use of bisphosphonates; K57.91 Diverticulosis of intestine, part unspecified, without perforation or abscess with bleeding; Z79.02 Long term (current) use of antithrombotics/antiplatelets; Z79.899 Other long term (current) drug therapy
CPT/HCPCS: 36415; 74018; 74174; 80048; 80053; 81001; 82607; 82652; 82728; 82746; 82962; 83540; 83550; 83605; 83735; 84100; 84443; 84484; 85014; 85018; 85025; 85027; 86850; 86900; 86901; 86920; 86922; 87077; 87086; 87088; 87186; 93005; 94762; 96125; 97110; 97161; 97165; 97530; 99283; 99285; J7030; J7040; P9016; Q9967; A4216; J2405

== ENCOUNTER → 2024-04-17 | Outpatient (CLI) | payer MEDICARE, SELFPAY ==
[2024-04-17 14:43] LABS: Absolute Lymphocyte Count 1.09 X10^3/uL (0.83-4.51); Absolute Neutrophil Count 3.9 X10^3/uL (2.0-7.7); Basophil# 0.07 X10^3/uL; Basophil% 1.2 % (0-1); Eosinophil# 0.14 X10^3/uL; Eosinophils% 2.3 % (0-5); Hematocrit 37.8 % (37-47); Hemoglobin 11.8 g/dL (12.0-15.0); Lymphocyte # 1.09 X10^3/ul (0.83-4.51); Lymphocyte % 18.1 % (19-41); Mean Corp Hgb Conc 31.2 g/dL (32-36); Mean Corpuscular Hgb 28.3 pg (27.0-32.0); Mean Corpuscular Volume 90.6 fL (81-99); Monocyte# 0.78 X10^3/uL; Monocyte% 12.9 % (0-10); NRBC Flagged by Analyzer 0 % (0-5); Neutrophil # 3.91 X10^3/uL (2.7-7.7); Neutrophil % 64.8 % (47-70); Platelet Count 302 K/mm3 (150-450); RBC Distribution Width CV 17.1 % (11.6-14.6); RBC Distribution Width SD 57.3 fl (35.1-43.9); Red Blood Count 4.17 M/mm3 (4.2-5.4)
== END | disposition home or self-care (01) ==
LOC: LAB 13:48
PROVIDERS: PCP Family Medicine; Referring Provider Internal Medicine Gastroenterology; Visit Provider Internal Medicine Gastroenterology
DX: D64.9 Anemia, unspecified (principal)
CPT/HCPCS: 36415; 85025

== ENCOUNTER → 2024-05-21 | Outpatient (CLI) | payer MEDICARE, SELFPAY ==
[2024-05-21 17:59] LABS: Absolute Lymphocyte Count 1.26 X10^3/uL (0.83-4.51); Absolute Neutrophil Count 4.6 X10^3/uL (2.0-7.7); Basophil# 0.08 X10^3/uL; Basophil% 1.1 % (0-1); Eosinophil# 0.17 X10^3/uL; Eosinophils% 2.4 % (0-5); Hematocrit 41.6 % (37-47); Hemoglobin 13.2 g/dL (12.0-15.0); Lymphocyte # 1.26 X10^3/ul (0.83-4.51); Mean Corp Hgb Conc 31.7 g/dL (32-36); Mean Corpuscular Hgb 28.8 pg (27.0-32.0); Mean Corpuscular Volume 90.8 fL (81-99); Mean Platelet Vol. 10.2 fl (6.2-12.0); Monocyte# 0.83 X10^3/uL; Monocyte% 11.8 % (0-10); NRBC Flagged by Analyzer 0 % (0-5); Neutrophil # 4.64 X10^3/uL (2.7-7.7); Neutrophil % 66.3 % (47-70); Platelet Count 308 K/mm3 (150-450); RBC Distribution Width CV 14.7 % (11.6-14.6); RBC Distribution Width SD 49.1 fl (35.1-43.9); Red Blood Count 4.58 M/mm3 (4.2-5.4)
[2024-05-21 18:29] LABS: Ferritin 40 ng/mL (8-252)
[2024-05-22 10:00] LABS: Vitamin B12 534 pg/mL (211-911)
== END | disposition home or self-care (01) ==
PROVIDERS: PCP Family Medicine; Referring Provider Family Medicine; Visit Provider Family Medicine
DX: D64.9 Anemia, unspecified (principal)
CPT/HCPCS: 36415; 82607; 82728; 85025

== ENCOUNTER 2024-07-15 14:53 | Observation (INO) | payer MEDICARE, SELFPAY ==
[2024-07-15] VITALS (11 sets, daily range): BP systolic 160–194; BP diastolic 69–118; PULSE 59–98; RESP 13–22; TEMP 36.3–36.8; O2SAT 94–99; BMI 23.6; BMI 23.2
--- NOTE | 2024-07-15 15:09 | CT_ITS ---
PROCEDURE: CTA ABD/PELVIS W/WO CONTRAST 07/15/2024 REASON FOR EXAM: RECTAL BLEEDING. Hypertension. Alzheimer's dementia. History of breast cancer. Status post hysterectomy and right hip replacement. TECHNIQUE: CTA imaging of the abdomen and pelvis with intravenous contrast. Contiguous axial scans of 3.75 mm slice thicknesses. Sagittal and coronal reconstruction images were provided. One or more dose reduction techniques were used (e.g., automated exposure control, adjustment of mA and/or kv according to patient size, use of iterative reconstruction technique). CONTRAST: Isovue 370 VOLUME: 98mL RADIATION DOSE SUMMARY: CTDlvol: 15.53 mGy DLP: 553.74 mGycm COMPARISON: CTA abdomen and pelvis dated 03/21/2024. FINDINGS: Aorta: Diffuse atherosclerotic calcifications of the aorta. Diffuse atherosclerotic ectasia of the aorta. Iliac Arteries: Diffuse atherosclerotic calcific disease of the aortoiliac arteries. No critical stenoses. Celiac: Ostial narrowing of greater than 50% due to atherosclerotic calcific plaque formation. Generalized atherosclerotic calcific disease. SMA: Ostial narrowing of greater than 50% due to atherosclerotic calcific plaque formation. Generalized atherosclerotic calcific disease. RENEE : Atherosclerotic plaque identified at the origin, less than 50% narrowing. Right Renal: No critical stenoses. Mild atherosclerotic calcific disease. Left Renal: No critical stenosis. Mild atherosclerotic calcific disease. OTHER FINDINGS: Lung bases: Mild bilateral parenchymal scarring. Liver: Normal. No ductal dilatation. Gallbladder: Unremarkable. Spleen: Normal. Adrenal glands: Unremarkable. Kidneys: A 3.6 x 3.2 cm cyst, left kidney. A smaller 1.4 cm cyst is also noted. No hydronephrosis. No renal calculi. Pancreas: No masses or other abnormalities. Gastrointestinal: Nonobstructive. No ulcerations. Marked colonic diverticulosis without signs of diverticulitis. Appendix: No signs of appendicitis. Peritoneum: No free air or free fluid. No masses. Lymph nodes: No pathologic adenopathy. Ascites: Unremarkable. Reproductive: Status post hysterectomy. Anterior abdominal wall: Unremarkable. Bladder: Unremarkable. Osseous structures: Right total hip arthroplasty. Severe degenerative arthritic change involving the left hip with multiple cystic changes. Multilevel spondylosis and degenerative disc disease. Grade 1 anterolisthesis of L4 on L5. Anterior wedging of the T11 vertebra, loss of height in the range of 20%. CT/CTA Abd/Pelvis W/WO Contrast IMPRESSION: 1. Generalized atherosclerotic ectasia of the aorta with no discrete aneurysms . 2. 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 3. Colonic diverticulosis, marked. 4. Left renal cysts. 5. Status post hysterectomy. 6. Right total hip arthroplasty. 7. Severe degenerative osteoarthritis, left hip. 8. Grade 1 anterolisthesis, L4 on L5. 9. Multilevel spondylosis and degenerative disc disease. Anterior wedging of T11 vertebra. Reading Location: [facility]
--- NOTE | 2024-07-15 15:11 | ED.VIS.GI ---
HPI HPI - GI History of Present Illness Chief Complaint: GI Bleed Informant: patient Narrative Narrative: Bright red blood per rectum x 2 episodes after cheondoism today. States liquid. No clots. No abdominal pain. Records note she is on aspirin and Plavix however she states she does not currently take these medications. Denies lightheaded symptoms. History of similar in the past. She has had colonoscopies in the past however states she does not want any additional colonoscopies. She spoke with her son-in-law who she states physician after first episode states if it reoccurs to go to the emergency department. Last similar event a few months ago per patient. After further discussion with the patient and nursing noted she had her last fill clopidogrel this past April she states she is all on this however she does not take her baby aspirin. Prior similar symptoms: Yes PFSH PFSH Medical History GI bleed History of COPD Head injury Laceration of head Inability to ambulate due to knee ZONIA (obstructive sleep apnea) Essential hypertension History of dementia History of CVA in adulthood Recurrent episodes of unresponsiveness TIA (transient ischemic attack) Confusion COPD (chronic obstructive pulmonary disease) Alzheimer's dementia History of GI bleed GERD (gastroesophageal reflux disease) Anxiety and depression COVID-19 Hypertensive emergency without congestive heart failure DCIS (ductal carcinoma in situ) of breast Vitamin D deficiency Hypercholesterolemia Arthritis Ductal carcinoma in situ (DCIS) of right breast Fall Hypothyroidism Home Medications ?Medication ?Instructions ?Recorded ?Last Taken ?Type clopidogrel 75 mg tablet 75 mg PO DAILY #30 tabs 06/15/22 07/15/24 Rx pramipexole 1.5 mg tablet 1.5 mg PO DAILY 10/16/22 07/14/24 History valsartan 320 1 tab PO DAILY 10/16/22 07/14/24 History mg-hydrochlorothiazide 25 mg tablet memantine 10 mg tablet 10 mg PO DAILY 04/28/23 07/15/24 History amlodipine 5 mg tablet 5 mg PO DAILY 06/11/23 07/14/24 History pantoprazole 40 mg tablet,delayed 40 mg PO BID 30 days #60 tabs 03/25/24 07/15/24 Rx release diphenhydramine 25 1 tab PO QHS PRN sleep 07/15/24 07/14/24 History mg-acetaminophen 500 mg tablet (Acetaminophen PM) escitalopram oxalate 5 mg tablet 5 mg PO QPM 07/15/24 07/14/24 History potassium chloride 10 mEq 20 meq PO BID 07/15/24 07/15/24 History tablet,extended release Allergy/AdvReac Type Severity Reaction Status Date / Time lisinopril Allergy Mild cough Verified 07/15/24 14:56 alendronate sodium (From Allergy Unknown unknown Verified 07/15/24 14:56 Fosamax) Sulfa (Sulfonamide Allergy Rash Verified 07/15/24 14:56 Antibiotics) atorvastatin (From Lipitor) AdvReac Mild muscle Verified 07/15/24 14:56 aches rosuvastatin (From Crestor) AdvReac Mild muscle Verified 07/15/24 14:56 aches codeine AdvReac Nausea Verified 07/15/24 14:56 NSAIDS (Non-Steroidal AdvReac Bleeding Verified 07/15/24 14:56 Anti-Inflamma Family History Mother Heart disease CVA (cerebral vascular accident) Father Heart disease Surgical History Status post placement of implantable loop recorder (11/08/22) History of right hip replacement History of left mastoidectomy History of lumpectomy of right breast History of thyroid surgery History of hysterectomy Social History household members: spouse Smoking Status: Former smoker how long ago did patient quit smoking: Quit ~ 24-25 years prior. alcohol intake: current alcohol intake frequency: a few times a month details: 1 drink/[place] nightly. substance use type: other details: Given THC chew per her family for sleep but prior no substance use. ROS ROS ED Constitutional Constitutional ED: Denies chills, fever(s) or sweats ENT ENT ED: Denies sore throat Cardiovascular Cardiovascular: Denies chest pain, leg edema, palpitations or racing heartbeat Respiratory/Chest Respiratory/Chest: Denies cough, dyspnea or dyspnea on exertion Gastrointestinal Gastrointestinal: Reports other Details: Bright red blood per rectum ; Denies abdominal pain, diarrhea, nausea or vomiting Genitourinary Genitourinary ED: Denies dysuria, hematuria or urinary frequency Musculoskeletal Musculoskeletal: Denies back pain, extremity pain or neck pain Integumentary Denies rash or wounds Neurologic Neurologic: Denies headache(s), paresthesias or weakness EXAM Physical Exam Const Vital Signs: 07/15/24 14:54 07/15/24 15:58 07/15/24 16:00 Temperature 97.4 F L Temperature Source Temporal Pulse Rate 98 68 Respiratory Rate 20 H 19 H 20 H Blood Pressure 165/118 H 174/69 H Blood Pressure Mean 133 104 Pulse Ox 99 96 98 Oxygen Delivery Method Room Air Room Air 07/15/24 16:15 07/15/24 16:32 07/15/24 16:45 Temperature Temperature Source Pulse Rate 68 77 59 L Respiratory Rate 15 13 21 H Blood Pressure Blood Pressure Mean Pulse Ox 96 94 96 Oxygen Delivery Method 07/15/24 17:00 07/15/24 17:00 07/15/24 17:15 Temperature 98.2 F Temperature Source Pulse Rate 67 61 67 Respiratory Rate 22 H 21 H 22 H Blood Pressure 174/89 H 194/71 H 179/89 H Blood Pressure Mean 117 104 116 Pulse Ox 95 94 95 Oxygen Delivery Method Room Air Room Air Positive well nourished and well developed General Appearance ED: well developed and NAD HEENT Reports moist mucous membranes normocephalic and atraumatic Eyes General Eye ED: Yes normal appearance of both eyes; Negative for pale conjunctiva Neck full ROM Chest Wall Chest: Negative for tenderness Resp normal respiratory effort and normal air movement Effort and Inspection: symmetric chest movement; Negative for respiratory distress Cardio regular rate, regular rhythm and no murmurs Peripheral Pulses: pulses 2+ throughout GI normal to inspection, nondistended, normoactive bowel sounds and non-tender GI Narrative: Nursing control and recovery special tactics for rectal exam, no external hemorrhoids noted, no fissures, digital rectal exam with red blood on finger. No masses palpated. Palpation: Negative for guarding or rebound tenderness present Extremity normal to inspection General Extremety ED: Negative for edema or tenderness General Extremity: Negative for edema Neuro oriented x3 and no sensory deficits noted Sensorium / Orientation: awake and alert Skin no rashes or lesions noted and no wounds MDM MDM MDM Narrative Medical decision making narrative: Interventions / MDM: Differential diagnosis: Lower GI bleed, diverticulosis Diagnosis considered but do not suspect: N/A My EKG interpretation: N/A Imaging independently reviewed and interpreted by myself: CT angiogram abdomen pelvis severe diverticular disease, left renal cyst, 50% narrowing of celiac and SMA artery. 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 She was given 3 units of blood at that time for hemoglobin 5.7. Test considered but not ordered:N/A ED course: Vital stable and nontender abdomen. No clinical anemia. Will check labs coags, CT angiogram abdomen pelvis for further evaluation. 1550: Hemoglobin trend 13.4. Griggs score 10. 1730: Reevaluation vital stable patient states she had additional bloody bowel movement while in the department. Discussed with her risk factors and open score, shared decision discussed with the patient. She lives alone. She had required 3 units of blood little over 3 months ago. Hemoglobin stable currently. Will discuss with hospitalist for observations for monitoring. 1741: I discussed with Dr. Mojica for admission to the medical floor for further monitoring. Re-evaluation: stable Disposition discussed with patient/family/significant other: Patient and daughter Case discussed with consulting clinician: Hospitalist This note was generated with [employer] dictation software. It may contain incorrect words, spelling, and punctuation that were not noted in checking the note before signing. Lab Data Attestation: I reviewed the patient's lab results. Labs: Laboratory Results - last 24 hr 07/15/24 07/15/24 07/15/24 15:03 15:03 15:03 WBC 7.5 RBC 4.77 Hgb 13.4 Hct 41.5 MCV 87.0 MCH 28.1 MCHC 32.3 RDW Std Deviation 42.8 RDW Coeff of Kierra 13.3 Plt Count 257 MPV 9.6 Immature Gran % (Auto) 0.300 Neut % (Auto) 70.6 H Lymph % (Auto) 19.1 [place] % (Auto) 8.1 Eos % (Auto) 1.1 Baso % (Auto) 0.8 Absolute Neuts (auto) 5.3 Absolute Lymphs (auto) 1.44 Nucleated RBC % 0 PT 14.3 INR 1.1 APTT 32.6 Sodium 133 Potassium 4.0 Chloride 97 L Carbon Dioxide 23.8 Anion Gap 13 BUN 14 Creatinine 0.75 Estim Creat Clear Calc 43.30 L Est GFR (MDRD) Non-Af 78 BUN/Creatinine Ratio 19.0 Glucose 136 H Calcium 10.1 Blood Type O POSITIVE Antibody Screen POSITIVE H Antibody Identification ANTI-E Antigen Identification E ANTIGEN - NEGATIVE Direct Antiglob Test POS w/POLYSPECIFIC H POS w/IgG H NEG w/COMPLEMENT Crossmatch See Detail Radiography Diagnostic Testing: Clinical Impression(s) from Imaging Studies Abdomen/Pelvis CTA 07/15/24 15:09 IMPRESSION: 1. Generalized atherosclerotic ectasia of the aorta with no discrete aneurysms. 2. 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 3. Colonic diverticulosis, marked. 4. Left renal cysts. 5. Status post hysterectomy. 6. Right total hip arthroplasty. 7. Severe degenerative osteoarthritis, left hip. 8. Grade 1 anterolisthesis, L4 on L5. 9. Multilevel spondylosis and degenerative disc disease. Anterior wedging of T11 vertebra. Reading Location: [facility] Discharge Plan Dx/Rx/DC Orders Clinical Impression: GI bleed, Diverticular disease Disposition Disposition: Acute Care Hospital [facility] Discharge Date/Time: 07/15/24 18:46
[2024-07-15] MEDS: 0.9% Normal Saline (1000mL) 1,000 ML 999 ML IV (15:23)
[2024-07-15 15:35] LABS: Absolute Lymphocyte Count 1.44 X10^3/uL (0.83-4.51); Absolute Neutrophil Count 5.3 X10^3/uL (2.0-7.7); Basophil# 0.06 X10^3/uL; Basophil% 0.8 % (0-1); Eosinophil# 0.08 X10^3/uL; Eosinophils% 1.1 % (0-5); Hematocrit 41.5 % (37-47); Hemoglobin 13.4 g/dL (12.0-15.0); Lymphocyte # 1.44 X10^3/ul (0.83-4.51); Lymphocyte % 19.1 % (19-41); Mean Corp Hgb Conc 32.3 g/dL (32-36); Mean Corpuscular Hgb 28.1 pg (27.0-32.0); Mean Platelet Vol. 9.6 fl (6.2-12.0); Monocyte# 0.61 X10^3/uL; Monocyte% 8.1 % (0-10); NRBC Flagged by Analyzer 0 % (0-5); Neutrophil # 5.31 X10^3/uL (2.7-7.7); Neutrophil % 70.6 % (47-70); Platelet Count 257 K/mm3 (150-450); RBC Distribution Width CV 13.3 % (11.6-14.6); RBC Distribution Width SD 42.8 fl (35.1-43.9); Red Blood Count 4.77 M/mm3 (4.2-5.4); White Blood Count 7.5 K/mm3 (4.4-11.0)
[2024-07-15 15:42] LABS: International Normalized Ratio 1.1; Prothrombin Time (Protime)PT. 14.3 SECONDS (11.7-14.9)
[2024-07-15 15:43] LABS: Partial Thromboplast Time 32.6 Seconds (24.1-36.2)
[2024-07-15 16:14] LABS: Anion Gap 13 (5-15); BUN 14 mg/dL (4-19); Calcium,Total 10.1 mg/dL (7.6-11.0); Carbon Dioxide 23.8 mmol/L (21.0-32.0); Chloride 97 mmol/L (98-108); Creatinine, Serum 0.75 mg/dL (0.70-1.20); EST Glomerular Filtration Rate 78 (>60); Glucose 136 mg/dL (70-99); Sodium Level 133 mmol/L (133-145)
--- NOTE | 2024-07-15 18:10 | PCM.HP.STD ---
[facility] - General General Date of Admission: 07/15/24 Date of Service: 07/15/24 Chief Complaint: Bright red blood per rectum HPI Narrative XAVIER RAHMAN, is a 84-year-old female with history of restless leg syndrome, TIA, hypertension, mild cognitive impairment, GERD, depression who presented [facility] ED 07/15/2024 with bright red blood per rectum x 2 after [facility]. The episodes were liquid without clots patient denies any abdominal pain. She previously was on aspirin and Plavix but has been longer taking aspirin. Does note she has had colonoscopies in the past and does not want any additional colonoscopies. She spoke with her son-in-law who reportedly is a physician after the first episode and stated if it recurs to go to the emergency department so she presented. Did have an episode of similar a few months ago. In the ED patient afebrile, heart rate 98 with a blood pressure 165/118, respiratory rate 20 and patient 99% on room air. CBC unremarkable with hemoglobin of 13.4, similar to a previous hemoglobin last month, INR 1.1 BMP without any significant abnormalities, patient did have positive FOBT and CTA obtained which showed greater than 50% narrowing of the origins of the celiac artery and SMA with colonic diverticulosis and severe degenerative osteoarthritis left hip. 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 Given patient had 2 episodes and does have history of bleeding and FOBT positive hospitalist contacted for admission. Patient evaluated at bedside with family member present. Patient reports that she was at [facility] and in her usual health and then on her drive home she suddenly felt like she needed to have a bowel movement and thought she would have diarrhea, reports she barely made at home to the bathroom and then had a liquid bowel movement that was blood of decent quantity, subsequently ate food and contacted family member who is a physician who said if she has a repeat episode she needs to come to the ED, she did have another episode so she presented. Currently denying any abdominal pain, nausea or lightheadedness, daughter reports that she had a dizzy episode yesterday morning but then was able to go about her day. Reports compliance with her medications including her Plavix but does not take aspirin any longer. About 1 week ago had some episodes where she regurgitated some phlegm but this is resolved. Patient reports she does feel fatigued and tired for the past 1 to 2 days [facility] Medical History GI bleed History of COPD Head injury Laceration of head Inability to ambulate due to knee ZONIA (obstructive sleep apnea) Essential hypertension History of dementia History of CVA in adulthood Recurrent episodes of unresponsiveness TIA (transient ischemic attack) Confusion COPD (chronic obstructive pulmonary disease) Alzheimer's dementia History of GI bleed GERD (gastroesophageal reflux disease) Anxiety and depression COVID-19 Hypertensive emergency without congestive heart failure DCIS (ductal carcinoma in situ) of breast Vitamin D deficiency Hypercholesterolemia Arthritis Ductal carcinoma in situ (DCIS) of right breast Fall Hypothyroidism Home Medications ?Medication ?Instructions ?Recorded ?Last Taken ?Type clopidogrel 75 mg tablet 75 mg PO DAILY #30 tabs 06/15/22 07/15/24 Rx pramipexole 1.5 mg tablet 1.5 mg PO DAILY 10/16/22 07/14/24 History valsartan 320 1 tab PO DAILY 10/16/22 07/14/24 History mg-hydrochlorothiazide 25 mg tablet memantine 10 mg tablet 10 mg PO DAILY 04/28/23 07/15/24 History amlodipine 5 mg tablet 5 mg PO DAILY 06/11/23 07/14/24 History pantoprazole 40 mg tablet,delayed 40 mg PO BID 30 days #60 tabs 03/25/24 07/15/24 Rx release diphenhydramine 25 1 tab PO QHS PRN sleep 07/15/24 07/14/24 History mg-acetaminophen 500 mg tablet (Acetaminophen PM) escitalopram oxalate 5 mg tablet 5 mg PO QPM 07/15/24 07/14/24 History potassium chloride 10 mEq 20 meq PO BID 07/15/24 07/15/24 History tablet,extended release Allergy/AdvReac Type Severity Reaction Status Date / Time lisinopril Allergy Mild cough Verified 07/15/24 14:56 alendronate sodium (From Allergy Unknown unknown Verified 07/15/24 14:56 Fosamax) Sulfa (Sulfonamide Allergy Rash Verified 07/15/24 14:56 Antibiotics) atorvastatin (From Lipitor) AdvReac Mild muscle Verified 07/15/24 14:56 aches rosuvastatin (From Crestor) AdvReac Mild muscle Verified 07/15/24 14:56 aches codeine AdvReac Nausea Verified 07/15/24 14:56 NSAIDS (Non-Steroidal AdvReac Bleeding Verified 07/15/24 14:56 Anti-Inflamma Family History Mother Heart disease CVA (cerebral vascular accident) Father Heart disease Surgical History Status post placement of implantable loop recorder (11/08/22) History of right hip replacement History of left mastoidectomy History of lumpectomy of right breast History of thyroid surgery History of hysterectomy Social History household members: spouse Smoking Status: Former smoker how long ago did patient quit smoking: Quit ~ 24-25 years prior. alcohol intake: current alcohol intake frequency: a few times a month details: 1 drink/[place] nightly. substance use type: other details: Given THC chew per her family for sleep but prior no substance use. ROS ROS Narrative General: Denies fever/chills HENT: Denies headache, denies stuffy nose, denies sore throat EYES: Denies changes in vision Resp: Denies cough, denies shortness of breath Cardiac: Denies chest pain GI: Denies abdominal pain, bright red blood per rectum x 3, denies nausea/vomiting : Denies changes in urination Extremity: Denies swelling MSK: Denies weakness but does feels fatigued Neuro: Denies any numbness/tingling Heme: Denies any bleeding or bruising Skin: Denies rashes Psychiatric: No complaints voiced Vital Signs Vital Signs Vital Signs: 07/15/24 14:54 07/15/24 15:58 07/15/24 16:00 Temperature 97.4 F L Temperature Source Temporal Pulse Rate 98 68 Respiratory Rate 20 H 19 H 20 H Blood Pressure 165/118 H 174/69 H Blood Pressure Mean 133 104 Pulse Ox 99 96 98 Oxygen Delivery Method Room Air Room Air 07/15/24 16:15 07/15/24 16:32 07/15/24 16:45 Temperature Temperature Source Pulse Rate 68 77 59 L Respiratory Rate 15 13 21 H Blood Pressure Blood Pressure Mean Pulse Ox 96 94 96 Oxygen Delivery Method 07/15/24 17:00 07/15/24 17:00 07/15/24 17:15 Temperature 98.2 F Temperature Source Pulse Rate 67 61 67 Respiratory Rate 22 H 21 H 22 H Blood Pressure 174/89 H 194/71 H 179/89 H Blood Pressure Mean 117 104 116 Pulse Ox 95 94 95 Oxygen Delivery Method Room Air Room Air Weight Weight: 60.328 kg Body Mass Index (BMI) 23.6 Physical Exam Narrative General: Alert, oriented, no apparent distress HEENT: Atraumatic, normocephalic Eyes: Anicteric, normal conjunctiva, extraocular movements grossly intact Neck: Supple Respiratory: Clear to auscultation bilaterally, normal respiratory effort Cardiovascular: Regular rate and rhythm GI: Soft, nontender, nondistended Extremities: No edema Musculoskeletal: Moving all extremities Neuro: No overt focal neurological deficits Skin: No rashes appreciated Psych: Cooperative Results Lab / Micro Data 07/15/24 15:03 07/15/24 15:03 Labs: Laboratory Results - last 24 hr 07/15/24 15:03: WBC 7.5, RBC 4.77, Hgb 13.4, Hct 41.5, MCV 87.0, MCH 28.1, MCHC 32.3, RDW Std Deviation 42.8, RDW Coeff of Kierra 13.3, Plt Count 257, MPV 9.6, Immature Gran % (Auto) 0.300, Neut % (Auto) 70.6 H, Lymph % (Auto) 19.1, [place] % (Auto) 8.1, Eos % (Auto) 1.1, Baso % (Auto) 0.8, Absolute Neuts (auto) 5.3, Absolute Lymphs (auto) 1.44, Nucleated RBC % 0, PT 14.3, INR 1.1, APTT 32.6, Sodium 133, Potassium 4.0, Chloride 97 L, Carbon Dioxide 23.8, Anion Gap 13, BUN 14, Creatinine 0.75, Estim Creat Clear Calc 43.30 L, Est GFR (MDRD) Non-Af 78, BUN/Creatinine Ratio 19.0, Glucose 136 H, Calcium 10.1, Blood Type O POSITIVE Micro: Microbiology 07/15/24 15:35 Stool Stool Occult Blood (LOIS) - Final Occult Blood Positive Imaging Radiology Impression Abdomen/Pelvis CTA 07/15/24 15:09 IMPRESSION: 1. Generalized atherosclerotic ectasia of the aorta with no discrete aneurysms. 2. 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 3. Colonic diverticulosis, marked. 4. Left renal cysts. 5. Status post hysterectomy. 6. Right total hip arthroplasty. 7. Severe degenerative osteoarthritis, left hip. 8. Grade 1 anterolisthesis, L4 on L5. 9. Multilevel spondylosis and degenerative disc disease. Anterior wedging of T11 vertebra. Reading Location: [facility] Assessment & Plan Assessment/Plan (1) Bright red rectal bleeding: PLAN: Plan # Concern for GI bleed -2 episodes of bright red blood per rectum at home and 1 in the ED and FOBT positive -CTA with greater than 50% narrowing of the origins of the celiac artery and SMA with colonic diverticulosis but patient reports bleeding started before she had any food -hemoglobin is presently stable at 13.4 but has had multiple episodes in the course of a few hours and suspect repeats may be lower -Trend H&H -Does have history of upper GI bleed due to AVMs requiring upper endoscopy and intervention, currently no dark blood and only painless bright red blood per rectum, upper versus lower -GI consult -Clear liquid diet -Will continue patient's home PPI twice daily but IV #hx TIA -Patient no longer on baby aspirin but is on Plavix -Will hold at this time -Resume as soon as patient is cleared to do so #Hypertension -Patient hypertensive but given ongoing bleeding would be concerned about hypotension especially if patient ends up requiring procedure -Continue amlodipine but hold valsartan/hydrochlorothiazide -Will add as needed medication in the meantime # Restless leg syndrome -continue patient's home medication regimen # Mild cognitive impairment -Supportive care -Continue home medications #Depression/anxiety -Continue home medications #GERD -Continue PPI #DVT ppx: SCDs Leonora Mojica MD Charges/Coding Visit Charges Inpatient E&M: 81669 Init Hosp L2
[2024-07-15 20:12] LABS: Hematocrit 38.4 % (37-47); Hemoglobin 12.5 g/dL (12.0-15.0)
[2024-07-15] MEDS: 0.9% Saline Lock 10 ML Syringe IV (20:17)
[2024-07-15] MEDS: 0.9% Normal Saline (100mL Bag) 100 ML 15 ML IV (20:17)
[2024-07-15] MEDS: Pantoprazole Sodium 40 MG in 0.9% Normal Saline (100mL MB+) 100 ML 330 MG IV (20:17)
[2024-07-15] MEDS: Pramipexole Di-HCl 1 MG Tablet 1.5 MG PO (20:18)
[2024-07-15] MEDS: Escitalopram Oxalate 10 MG Tablet 5 MG PO (20:18)
[2024-07-16 01:00] VITALS: BP 147/62; PULSE 66; RESP 16; TEMP 37.1; O2SAT 95
[2024-07-16 01:05] LABS: Hematocrit 34.6 % (37-47); Hemoglobin 11.4 g/dL (12.0-15.0)
[2024-07-16 07:08] LABS: Absolute Lymphocyte Count 1.03 X10^3/uL (0.83-4.51); Absolute Neutrophil Count 3.4 X10^3/uL (2.0-7.7); Basophil# 0.06 X10^3/uL; Basophil% 1.2 % (0-1); Eosinophil# 0.12 X10^3/uL; Eosinophils% 2.4 % (0-5); Hemoglobin 11.9 g/dL (12.0-15.0); Lymphocyte # 1.03 X10^3/ul (0.83-4.51); Lymphocyte % 20.3 % (19-41); Mean Corp Hgb Conc 33.1 g/dL (32-36); Mean Corpuscular Hgb 28.3 pg (27.0-32.0); Mean Corpuscular Volume 85.7 fL (81-99); Mean Platelet Vol. 9.7 fl (6.2-12.0); Monocyte# 0.51 X10^3/uL; NRBC Flagged by Analyzer 0 % (0-5); Neutrophil # 3.35 X10^3/uL (2.7-7.7); Neutrophil % 65.9 % (47-70); Platelet Count 213 K/mm3 (150-450); RBC Distribution Width CV 13.4 % (11.6-14.6); RBC Distribution Width SD 41.8 fl (35.1-43.9); White Blood Count 5.1 K/mm3 (4.4-11.0)
[2024-07-16 07:44] LABS: Anion Gap 12 (5-15); BUN 13 mg/dL (4-19); BUN/Creat Ratio 21.1 RATIO (10-20); Calcium,Total 9.3 mg/dL (7.6-11.0); Carbon Dioxide 19.5 mmol/L (21.0-32.0); Chloride 103 mmol/L (98-108); EST Glomerular Filtration Rate 89 (>60); Glucose 97 mg/dL (70-99); Potassium 3.9 mmol/L (3.3-5.1); Sodium Level 134 mmol/L (133-145)
[2024-07-16 08:22] LABS: International Normalized Ratio 1.1; Prothrombin Time (Protime)PT. 13.9 SECONDS (11.7-14.9)
--- NOTE | 2024-07-16 08:45 | EX.PCM.CON.G ---
HPI Consult Data Date of Consult: 07/16/24 HPI Narrative Reason for Consultation: GI bleeding HPI Narrative: XAVIER RAHMAN, is a 84 F who presents with bright red blood per rectum x 2 episodes after anabaptism today. She does have some abdominal tenderness. Records note she is on aspirin and Plavix however she states she does not currently take these medications. She denies lightheaded symptoms. She does have a history of similar in the past. She has had colonoscopies in the past however states she does not want any additional colonoscopies. She spoke with her son-in-law who she states physician after first episode states if it reoccurs to go to the emergency department. Last similar event a few months ago per patient. After further discussion with the patient and nursing noted she had her last fill clopidogrel this past April she states she is all on this however she does not take her baby aspirin. I saw her for the first normal consultation back on 03/21/2024 with weakness and dark stools. 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 Hemoglobin 5.7 on admit on 03/21, down from hemoglobin 12.3 on 03/18. Transfused 3 units of blood total with repeat hemoglobin 8.7. Hemoglobin remained stable and patient with no recurrence of dark or bloody stools. Continue p.o. PPI twice daily and sucralfate. She was later restarted back on aspirin and Plavix. [facility] Medical History GI bleed History of COPD Head injury Laceration of head Inability to ambulate due to knee ZONIA (obstructive sleep apnea) Essential hypertension History of dementia History of CVA in adulthood Recurrent episodes of unresponsiveness TIA (transient ischemic attack) Confusion COPD (chronic obstructive pulmonary disease) Alzheimer's dementia History of GI bleed GERD (gastroesophageal reflux disease) Anxiety and depression COVID-19 Hypertensive emergency without congestive heart failure DCIS (ductal carcinoma in situ) of breast Vitamin D deficiency Hypercholesterolemia Arthritis Ductal carcinoma in situ (DCIS) of right breast Fall Hypothyroidism Home Medications ?Medication ?Instructions ?Recorded ?Last Taken ?Type clopidogrel 75 mg tablet 75 mg PO DAILY #30 tabs 06/15/22 07/15/24 Rx pramipexole 1.5 mg tablet 1.5 mg PO DAILY 10/16/22 07/14/24 History valsartan 320 1 tab PO DAILY 10/16/22 07/14/24 History mg-hydrochlorothiazide 25 mg tablet memantine 10 mg tablet 10 mg PO DAILY 04/28/23 07/15/24 History amlodipine 5 mg tablet 5 mg PO DAILY 06/11/23 07/14/24 History pantoprazole 40 mg tablet,delayed 40 mg PO BID 30 days #60 tabs 03/25/24 07/15/24 Rx release diphenhydramine 25 1 tab PO QHS PRN sleep 07/15/24 07/14/24 History mg-acetaminophen 500 mg tablet (Acetaminophen PM) escitalopram oxalate 5 mg tablet 5 mg PO QPM 07/15/24 07/14/24 History potassium chloride 10 mEq 20 meq PO BID 07/15/24 07/15/24 History tablet,extended release Allergy/AdvReac Type Severity Reaction Status Date / Time lisinopril Allergy Mild cough Verified 07/15/24 14:56 alendronate sodium (From Allergy Unknown unknown Verified 07/15/24 14:56 Fosamax) Sulfa (Sulfonamide Allergy Rash Verified 07/15/24 14:56 Antibiotics) atorvastatin (From Lipitor) AdvReac Mild muscle Verified 07/15/24 14:56 aches rosuvastatin (From Crestor) AdvReac Mild muscle Verified 07/15/24 14:56 aches codeine AdvReac Nausea Verified 07/15/24 14:56 NSAIDS (Non-Steroidal AdvReac Bleeding Verified 07/15/24 14:56 Anti-Inflamma Family History Mother Heart disease CVA (cerebral vascular accident) Father Heart disease Surgical History Status post placement of implantable loop recorder (11/08/22) History of right hip replacement History of left mastoidectomy History of lumpectomy of right breast History of thyroid surgery History of hysterectomy Social History household members: spouse Smoking Status: Former smoker how long ago did patient quit smoking: Quit ~ 24-25 years prior. alcohol intake: current alcohol intake frequency: a few times a month details: 1 drink/[place] nightly. substance use type: other details: Given THC chew per her family for sleep but prior no substance use. ROS Constitutional Constitutional: Denies fatigue, fever(s), poor appetite, weight gain or weight loss Gastrointestinal Gastrointestinal: Denies belching, bloating, change in bowel habits, change in stool character, chewing difficulty, coffee ground emesis, constipation, cramping, diarrhea, dyspepsia, dysphagia, early satiety, excessive flatus, fecal incontinence, heartburn, hematemesis, hematochezia, hemorrhoids, loose stools, melena, nausea, odynophagia, rectal bleeding, tenesmus, vomiting or weight changes Physical Exam Narrative General: Alert, oriented, no apparent distress HEENT: Atraumatic, normocephalic Eyes: Anicteric, normal conjunctiva, extraocular movements grossly intact Neck: Supple Respiratory: Clear to auscultation bilaterally, normal respiratory effort Cardiovascular: Regular rate and rhythm GI: Soft, nontender, nondistended Extremities: No edema Musculoskeletal: Moving all extremities Neuro: No overt focal neurological deficits Skin: No rashes appreciated Psych: Cooperative Lab / Micro Data 07/16/24 06:55 07/16/24 06:55 Labs: Laboratory Results - last 24 hr 07/15/24 15:03: WBC 7.5, RBC 4.77, Hgb 13.4, Hct 41.5, MCV 87.0, MCH 28.1, MCHC 32.3, RDW Std Deviation 42.8, RDW Coeff of Kierra 13.3, Plt Count 257, MPV 9.6, Immature Gran % (Auto) 0.300, Neut % (Auto) 70.6 H, Lymph % (Auto) 19.1, [place] % (Auto) 8.1, Eos % (Auto) 1.1, Baso % (Auto) 0.8, Absolute Neuts (auto) 5.3, Absolute Lymphs (auto) 1.44, Nucleated RBC % 0, PT 14.3, INR 1.1, APTT 32.6, Sodium 133, Potassium 4.0, Chloride 97 L, Carbon Dioxide 23.8, Anion Gap 13, BUN 14, Creatinine 0.75, Estim Creat Clear Calc 43.30 L, Est GFR (MDRD) Non-Af 78, BUN/Creatinine Ratio 19.0, Glucose 136 H, Calcium 10.1, Blood Type O POSITIVE, Antibody Screen POSITIVE H, Antibody Identification ANTI-E, Antigen Identification E ANTIGEN - NEGATIVE, Direct Antiglob Test POS w/POLYSPECIFIC H 07/15/24 15:03: Direct Antiglob Test POS w/IgG H 07/15/24 15:03: Direct Antiglob Test NEG w/COMPLEMENT, Crossmatch See Detail 07/15/24 19:39: Hgb 12.5, Hct 38.4 07/16/24 00:56: Hgb 11.4 L, Hct 34.6 L 07/16/24 06:55: WBC 5.1, RBC 4.20, Hgb 11.9 L, Hct 36.0 L, MCV 85.7, MCH 28.3, MCHC 33.1, RDW Std Deviation 41.8, RDW Coeff of Kierra 13.4, Plt Count 213, MPV 9.7, Immature Gran % (Auto) 0.200, Neut % (Auto) 65.9, Lymph % (Auto) 20.3, [place] % (Auto) 10.0, Eos % (Auto) 2.4, Baso % (Auto) 1.2 H, Absolute Neuts (auto) 3.4, Absolute Lymphs (auto) 1.03, Nucleated RBC % 0, PT 13.9, INR 1.1, Sodium 134, Potassium 3.9, Chloride 103, Carbon Dioxide 19.5 L, Anion Gap 12, BUN 13, Creatinine 0.60 L, Estim Creat Clear Calc 43.30 L, Est GFR (MDRD) Non-Af 89, BUN/Creatinine Ratio 21.1 H, Glucose 97, Calcium 9.3 Micro: Microbiology 07/15/24 15:35 Stool Stool Occult Blood (LOIS) - Final Occult Blood Positive Imaging Radiology Impression Abdomen/Pelvis CTA 07/15/24 15:09 IMPRESSION: 1. Generalized atherosclerotic ectasia of the aorta with no discrete aneurysms. 2. 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 3. Colonic diverticulosis, marked. 4. Left renal cysts. 5. Status post hysterectomy. 6. Right total hip arthroplasty. 7. Severe degenerative osteoarthritis, left hip. 8. Grade 1 anterolisthesis, L4 on L5. 9. Multilevel spondylosis and degenerative disc disease. Anterior wedging of T11 vertebra. Reading Location: [facility] Assessment & Plan Assessment/Plan (1) GI (gastrointestinal bleed): (2) Acute blood loss anemia: PLAN: Plan Patient is an 84-year-old female who presented [facility] ED on 07/15/2024 with weakness and dark stools. Acute blood loss anemia with lower GI bleed this was bright red blood per rectum and currently has melena secondary to GI bleed ? 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 Hemoglobin 5.7 on admit on 03/21, down from hemoglobin 12.3 on 03/18. Transfused 3 units of blood total with repeat hemoglobin 8.7. Hemoglobin remaining stable. She completed PPI twice daily and sucralfate. . On this admission her hemoglobin was 13.4 as an outpatient and is down to 11.4. However her repeat was back up to 11.6. The differential diagnosis for hematochezia in the setting of a little bit of abdominal pain is ischemic colitis, diverticulosis, upper GI bleed with rapid transit. Her hemoglobin seems to be stabilizing off of aspirin and Plavix. I will give her a liquid diet. We will repeat her hemoglobin to make sure it is stable. If it does continue to be stable we will plan it is possible she may not need repeat endoscopy as the patient does not want to undergo any endoscopic procedures. Charges/Coding Visit Charges Inpatient E&M: 42091 Init Hosp L3
[2024-07-16 09:00] VITALS: BP 165/73; PULSE 58; RESP 18; TEMP 37.2; O2SAT 96
[2024-07-16] MEDS: Memantine Hydrochloride 10 MG Tablet PO (10:20)
[2024-07-16] MEDS: amLODIPine 5 MG Tablet PO (10:20)
[2024-07-16] MEDS: Pantoprazole Sodium 40 MG in 0.9% Normal Saline (100mL MB+) 100 ML 330 MG IV ×2 (10:46→21:24)
--- NOTE | 2024-07-16 12:09 | CASEMGMT ---
Met with pt to complete KENDRICK form. KENDRICK form explained to pt at this time who voiced understanding and signed form. Original form placed in pt?s chart and copy provided to the pt. This ANNIE GAUTHIER also discussed DC planning with the pt. Per Dr. Swartz, DC will likely be tomorrow. At this time, the pt states that she feels safe returning home alone once medically ready and denies the need for HHC or OP Tx. Pt denies further questions or concerns at this time. Current 6-Click score is 20. No therapy ordered. Tigist Eric RN CM
--- NOTE | 2024-07-16 12:10 | PN.HOSP_ITS ---
Reason for Visit Reason for Visit: Diagnoses Acute posthemorrhagic anemia (07/15/24) Hemorrhage of anus and rectum (07/15/24) Gastrointestinal hemorrhage, unspecified (07/15/24) Subjective Subjective Saw patient at bedside this morning, daughter present. Patient was sitting back comfortably in bed, conversing normally and in no acute distress. Denied any pain or discomfort. [place] mildly fatigued this morning but otherwise felt well. Did report feeling hungry as she has not been allowed to eat since admission. Does report having 2 bowel movements of bright blood overnight. No other new concerns this morning. Objective Data Objective Data Vital Signs: Vital Signs Temp Pulse Resp BP Pulse Ox O2 Del Method 98.9 F 58 L 18 165/73 H 96 Room Air 07/16/24 09:00 07/16/24 09:00 07/16/24 09:00 07/16/24 09:00 07/16/24 09:00 07/16/24 09:00 Oxygen Delivery Method Room Air Weight: 59.5 kg Body Mass Index (BMI) 23.2 Intake & Output: Intake and Output for Last 24 Hours 07/14/24 07/15/24 07/16/24 23:59 23:59 23:59 Intake Total 1160 / 1160 110 / 110 Balance 1160 / 1160 110 / 110 Lab / Micro Data 07/16/24 12:21 07/16/24 06:55 Labs: Laboratory Results - last 24 hr 07/15/24 15:03: WBC 7.5, RBC 4.77, Hgb 13.4, Hct 41.5, MCV 87.0, MCH 28.1, MCHC 32.3, RDW Std Deviation 42.8, RDW Coeff of Kierra 13.3, Plt Count 257, MPV 9.6, Immature Gran % (Auto) 0.300, Neut % (Auto) 70.6 H, Lymph % (Auto) 19.1, [place] % (Auto) 8.1, Eos % (Auto) 1.1, Baso % (Auto) 0.8, Absolute Neuts (auto) 5.3, Absolute Lymphs (auto) 1.44, Nucleated RBC % 0, PT 14.3, INR 1.1, APTT 32.6, Sodium 133, Potassium 4.0, Chloride 97 L, Carbon Dioxide 23.8, Anion Gap 13, BUN 14, Creatinine 0.75, Estim Creat Clear Calc 43.30 L, Est GFR (MDRD) Non-Af 78, BUN/Creatinine Ratio 19.0, Glucose 136 H, Calcium 10.1, Blood Type O POSITIVE, A ntibody Screen POSITIVE H, Antibody Identification ANTI-E, Antigen Identification E ANTIGEN - NEGATIVE, Direct Antiglob Test POS w/POLYSPECIFIC H 07/15/24 15:03: Direct Antiglob Test POS w/IgG H 07/15/24 15:03: Direct Antiglob Test NEG w/COMPLEMENT, Crossmatch See Detail 07/15/24 19:39: Hgb 12.5, Hct 38.4 07/16/24 00:56: Hgb 11.4 L, Hct 34.6 L 07/16/24 06:55: WBC 5.1, RBC 4.20, Hgb 11.9 L, Hct 36.0 L, MCV 85.7, MCH 28.3, MCHC 33.1, RDW Std Deviation 41.8, RDW Coeff of Kierra 13.4, Plt Count 213, MPV 9.7, Immature Gran % (Auto) 0.200, Neut % (Auto) 65.9, Lymph % (Auto) 20.3, [place] % (Auto) 10.0, Eos % (Auto) 2.4, Baso % (Auto) 1.2 H, Absolute Neuts (auto) 3.4, Absolute Lymphs (auto) 1.03, Nucleated RBC % 0, PT 13.9, INR 1.1, Sodium 134, Potassium 3.9, Chloride 103, Carbon Dioxide 19.5 L, Anion Gap 12, BUN 13, C reatinine 0.60 L, Estim Creat Clear Calc 43.30 L, Est GFR (MDRD) Non-Af 89, B UN/Creatinine Ratio 21.1 H, Glucose 97, Calcium 9.3 Micro: Microbiology 07/15/24 15:35 Stool Stool Occult Blood (LOIS) - Final Occult Blood Positive Radiography Diagnostic Testing: Radiology Impression Abdomen/Pelvis CTA 07/15/24 15:09 IMPRESSION: 1. Generalized atherosclerotic ectasia of the aorta with no discrete aneurysms. 2. 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 3. Colonic diverticulosis, marked. 4. Left renal cysts. 5. Status post hysterectomy. 6. Right total hip arthroplasty. 7. Severe degenerative osteoarthritis, left hip. 8. Grade 1 anterolisthesis, L4 on L5. 9. Multilevel spondylosis and degenerative disc disease. Anterior wedging of T11 vertebra. Reading Location: [facility] Physical Exam Const alert, oriented x3, no apparent distress and average body habitus Constitutional Narrative: Elderly female, pleasant and talkative, mildly fatigued appearing but otherwise sitting back comfortably in bed, conversing normally, in no acute distress. General Appearance: cooperative and comfortable HEENT normocephalic, head/scalp atraumatic, hearing grossly normal bilaterally, nasal mucous membranes and turbinates normal and moist oral mucous membranes Eyes PERRL, EOMs intact bilaterally and conjunctivae normal Neck full ROM Chest inspection of chest normal Resp normal respiratory effort, normal air movement, no use of accessory muscles and clear to auscultation bilaterally Cardio regular rate, regular rhythm, no murmurs and peripheral pulses 2+ throughout GI normal to inspection, nondistended, normoactive bowel sounds, soft to palpation, non-tender and non-distended Back/Spine normal ROM Extremity normal to inspection, full ROM and no pedal edema Skin no rashes or lesions noted Psych mental status grossly normal Assessment & Plan Assessment/Plan (1) GI bleed: (2) Anemia: PLAN: Plan Patient is an 84-year-old female who presented to [facility] ED on 07/15/2024 with bright red blood per rectum. 1. Concern for recurrent GI bleed, chronic iron deficiency anemia ? GI following. Recent history of ABLA secondary to upper GI bleed in March 2024. Presented with hemoglobin 5.7 at that time, transfused 3 units of blood with repeat hemoglobin 8.7. 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 Was discharged on p.o. PPI twice daily and a short course of sucralfate. Has been on Plavix since then but not on baby aspirin. No recurrence of bleeding until day of admission. Patient had bright red stools that prompted her to come in. CTA abdomen pelvis unremarkable. Hemoglobin 13.4 in ED, dropped to 11.4 by morning of 07/16 but was given IV fluids, and repeat hemoglobins on 07/16 are 11.9 and 12.5. Per GI, okay for diet and will follow-up hemoglobin tomorrow morning. Patient notably with no further bloody stools since evening of 07/15. If hemoglobin stable tomorrow morning, should be okay for discharge home with no need for repeat scope. Planning to restart only baby aspirin daily on discharge. 2. History of TIA ? On chart review, was hospitalized in 05/2022 for acute ischemic stroke in the right parietal and temporal lobes. Was put on aspirin and Plavix at that time. Had stroke rule out admissions in October and March 2023 with repeat imaging negative. Per neurology that October, appeared the patient would be okay for aspirin therapy alone. No further neurologic issues since March 2023. Will plan to restart only baby aspirin daily on this discharge and discontinue Plavix. Chronic medical conditions: ? Hypertension: Continue home amlodipine. Holding valsartan/hydrochlorothiazide for now. ? Mild cognitive impairment: Continue home memantine. ? Restless leg syndrome: Continue home pramipexole. ? Depression/anxiety: Continue home escitalopram. ? GERD: Continue home PPI. DVT prophylaxis: SCDs CODE STATUS: DNR CCA, DNI Expected disposition: Home, 1 to 2 days Total clinical time spent by myself addressing the patient's medical issues, reviewing all the data, and collaborating with patient's care team: 35 minutes. Charges/Coding Visit Charges Inpatient E&M: 03607 Subs Hosp L2
[2024-07-16 12:37] LABS: Hematocrit 38.6 % (37-47); Hemoglobin 12.5 g/dL (12.0-15.0); Mean Corp Hgb Conc 32.4 g/dL (32-36); Mean Corpuscular Hgb 28.1 pg (27.0-32.0); Mean Corpuscular Volume 86.7 fL (81-99); Mean Platelet Vol. 9.6 fl (6.2-12.0); Platelet Count 231 K/mm3 (150-450); RBC Distribution Width CV 13.3 % (11.6-14.6); RBC Distribution Width SD 42.3 fl (35.1-43.9); Red Blood Count 4.45 M/mm3 (4.2-5.4); White Blood Count 6.6 K/mm3 (4.4-11.0)
[2024-07-16 16:23] VITALS: BP 158/70; PULSE 62; RESP 18; TEMP 37; O2SAT 96
[2024-07-16 21:14] VITALS: BP 138/64; PULSE 74; RESP 18; TEMP 36.4; O2SAT 96
[2024-07-16] MEDS: Pramipexole Di-HCl 1 MG Tablet 1.5 MG PO (21:23)
[2024-07-16] MEDS: Escitalopram Oxalate 10 MG Tablet 5 MG PO (21:24)
[2024-07-16] MEDS: 0.9% Saline Lock 10 ML Syringe IV (21:25)
[2024-07-16] MEDS: 0.9% Normal Saline (100mL Bag) 100 ML 15 ML IV (21:27)
[2024-07-16 23:36] VITALS: PULSE 58
[2024-07-17 03:20] VITALS: BP 165/76; PULSE 79; RESP 16; TEMP 36.8; O2SAT 97
[2024-07-17 05:37] VITALS: PULSE 49
[2024-07-17 07:37] LABS: Hematocrit 38.6 % (37-47); Hemoglobin 12.7 g/dL (12.0-15.0); Mean Corp Hgb Conc 32.9 g/dL (32-36); Mean Corpuscular Hgb 28.2 pg (27.0-32.0); Mean Corpuscular Volume 85.8 fL (81-99); Mean Platelet Vol. 10.2 fl (6.2-12.0); Platelet Count 243 K/mm3 (150-450); RBC Distribution Width CV 13.4 % (11.6-14.6); RBC Distribution Width SD 41.6 fl (35.1-43.9)
[2024-07-17 08:02] LABS: Anion Gap 12 (5-15); BUN 10 mg/dL (4-19); BUN/Creat Ratio 14.8 RATIO (10-20); Calcium,Total 9.6 mg/dL (7.6-11.0); Chloride 101 mmol/L (98-108); Creatinine, Serum 0.68 mg/dL (0.70-1.20); EST Glomerular Filtration Rate 86 (>60); Glucose 93 mg/dL (70-99); Sodium Level 134 mmol/L (133-145)
[2024-07-17 09:27] VITALS: BP 161/93; PULSE 58; RESP 18; TEMP 36.5; O2SAT 96
[2024-07-17] MEDS: amLODIPine 5 MG Tablet PO (10:33)
[2024-07-17] MEDS: Memantine Hydrochloride 10 MG Tablet PO (10:33)
[2024-07-17] MEDS: hydroCHLOROthiazide 25 MG Tablet PO (10:36)
[2024-07-17] MEDS: Losartan Potassium 100 MG Tablet PO (10:36)
--- NOTE | 2024-07-17 10:43 | DCINST_ITS ---
Discharge Instructions Diet Discharge Diet: No restrictions DC O2, CPAP, BIPAP needs Home O2 Discharge instructions: No Dressing / Incision Discharge Activity: No Restrictions Follow Up Care Test Results: Test results from this visit will be discussed in further detail at your follow- up appointment, if applicable. Discharge Plan Admission Admit Date/Time: 07/15/24 18:10 Primary Reason for Your Visit: bloody stools Attending Provider: Brodie Swartz Primary Care Provider: Vikram Segura Consulting Providers: Friend,Brad; Leonora Mojica Instructions Additional Instructions / Restrictions: Please start taking a baby aspirin daily and stop taking Plavix. You can also stop taking the potassium supplement. Continue your other home indications as normal. Follow-up with your primary care doctor as needed. Discharge Orders/Prescriptions Prescriptions: New aspirin 81 mg capsule 81 mg PO DAILY 30 Days Qty: 30 0RF Continued pramipexole 1.5 mg tablet 1.5 mg PO DAILY Patient Comments: TAKE 1 TABLET 2 TO 3 HOURS BEFORE BEDTIME FOR RESTLESS LEGS valsartan-hydrochlorothiazide 320-25 mg tablet 1 tab PO DAILY memantine 10 mg tablet 10 mg PO DAILY amlodipine 5 mg tablet 5 mg PO DAILY escitalopram oxalate 5 mg tablet 5 mg PO QPM diphenhydramine-acetaminophen [Acetaminophen PM] 25-500 mg tablet 1 tab PO QHS PRN (Reason: sleep) pantoprazole 40 mg Tablet,Delayed Release (Dr/Ec) 40 mg PO BID 30 Days Qty: 60 2RF Discontinued clopidogrel 75 mg Tablet 75 mg PO DAILY Qty: 30 0RF potassium chloride 10 mEq tablet extended release 20 meq PO BID Referrals / Follow Up: Vikram Segura MD [Primary Care Provider] - Disposition Disposition (needs filled in before D/C Order can be placed): Home, Self Care
--- NOTE | 2024-07-17 10:43 | PCM.DC.SUM ---
Providers Date of Admission: 07/15/24 Date of Discharge: 07/17/24 Primary Care Physician: Dr. Vikram Segura MD Consultations 07/15/24 18:56 Consult: Gastroenterology Routine Consulting Provider: Brad Winslow Reason for Consult: painless bright red blood per rectum x 3 EMERGENT Consult: No MD Notified: Yes Date Notified: 07/15/24 Time Notified: 19:15 Method of Notification: Text Reason For Visit: BRBPR Diagnosis Discharge Diagnosis (1) GI bleed: Status: Acute Code(s): K92.2 - Gastrointestinal hemorrhage, unspecified (2) Anemia: Status: Acute Code(s): D64.9 - Anemia, unspecified Medications at Discharge Home Medications pramipexole 1.5 mg tablet 1.5 mg PO DAILY 10/16/22 valsartan 320 mg-hydrochlorothiazide 25 mg tablet 1 tab PO DAILY 10/16/22 memantine 10 mg tablet 10 mg PO DAILY 04/28/23 amlodipine 5 mg tablet 5 mg PO DAILY 06/11/23 pantoprazole 40 mg tablet,delayed release 40 mg PO BID 30 days #60 tabs 03/25/24 diphenhydramine 25 mg-acetaminophen 500 mg tablet (Acetaminophen PM) 1 tab PO QHS PRN sleep 07/15/24 escitalopram oxalate 5 mg tablet 5 mg PO QPM 07/15/24 aspirin 81 mg capsule 81 mg PO DAILY 30 days #30 caps 07/17/24 Hospital Course Operations None Procedures - (CTA abdomen pelvis) Summary of Care Provided Minutes Spent on Discharge: 35 Hospital Course: Patient is an 84-year-old female who presented to [facility] ED on 07/15/2024 with bright red blood per rectum. Hospital course as noted below. Patient discharged home in stable condition on . Concern for recurrent GI bleed, chronic iron deficiency anemia ? GI followed. Recent history of ABLA secondary to upper GI bleed in March 2024. Presented with hemoglobin 5.7 at that time, transfused 3 units of blood with repeat hemoglobin 8.7. 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 Was discharged on p.o. PPI twice daily and a short course of sucralfate. Has been on Plavix since then but not on baby aspirin. No recurrence of bleeding until day of admission. Patient had bright red stools that prompted her to come in. CTA abdomen pelvis unremarkable. Hemoglobin 13.4 in ED, dropped to 11.4 by morning of 07/16 but was given IV fluids, and repeat hemoglobins on 07/16 were 11.9 and 12.5. Hemoglobin remained stable at 12.7 on morning of discharge. Per GI, no need for repeat scope while patient. Starting only baby aspirin daily on discharge, Plavix discontinued as noted below. Continue home PPI once daily. Stable for discharge home on 07/17. 2. History of TIA ? On chart review, was hospitalized in 05/2022 for acute ischemic stroke in the right parietal and temporal lobes. Was put on aspirin and Plavix at that time. Had stroke rule out admissions in October and March 2023 with repeat imaging negative. Per neurology that October, appeared the patient would be okay for aspirin therapy alone. No further neurologic issues since March 2023. Will start only baby aspirin daily on discharge and discontinue Plavix. Chronic medical conditions: ? Hypertension: Continue home amlodipine and valsartan/hydrochlorothiazide. ? Mild cognitive impairment: Continue home memantine. ? Restless leg syndrome: Continue home pramipexole. ? Depression/anxiety: Continue home escitalopram. ? GERD: Continue home PPI. Total clinical time spent by myself addressing the patient's medical issues, reviewing all the data, and collaborating with patient's care team: 35 minutes. Physical Exam Const alert, oriented x3, no apparent distress and average body habitus Constitutional Narrative: Elderly female, pleasant and talkative, mildly fatigued appearing but otherwise sitting back comfortably in bed, conversing normally, in no acute distress. Stable. General Appearance: cooperative and comfortable HEENT normocephalic, head/scalp atraumatic, hearing grossly normal bilaterally, nasal mucous membranes and turbinates normal and moist oral mucous membranes Eyes PERRL, EOMs intact bilaterally and conjunctivae normal Neck full ROM Chest inspection of chest normal Resp normal respiratory effort, normal air movement, no use of accessory muscles and clear to auscultation bilaterally Cardio regular rate, regular rhythm, no murmurs and peripheral pulses 2+ throughout GI normal to inspection, nondistended, normoactive bowel sounds, soft to palpation, non-tender and non-distended Back/Spine normal ROM Extremity normal to inspection, full ROM and no pedal edema Skin no rashes or lesions noted Psych mental status grossly normal Weight / BMI Weight Weight: 59.5 kg Body Mass Index (BMI) 23.2 ABG / Lab / Microbiology Data 07/17/24 06:21 07/17/24 06:21 Laboratory: Laboratory Results - last 24 hr 07/16/24 12:21: WBC 6.6, RBC 4.45, Hgb 12.5, Hct 38.6, MCV 86.7, MCH 28.1, MCHC 32.4, RDW Std Deviation 42.3, RDW Coeff of Kierra 13.3, Plt Count 231, MPV 9.6 07/17/24 06:21: WBC 6.0, RBC 4.50, Hgb 12.7, Hct 38.6, MCV 85.8, MCH 28.2, MCHC 32.9, RDW Std Deviation 41.6, RDW Coeff of Kierra 13.4, Plt Count 243, MPV 10.2, Sodium 134, Potassium 4.0, Chloride 101, Carbon Dioxide 21.0, Anion Gap 12, BUN 10, Creatinine 0.68 L, Estim Creat Clear Calc 43.30 L, Est GFR (MDRD) Non-Af 86, BUN/Creatinine Ratio 14.8, Glucose 93, Calcium 9.6 Microbiology: Microbiology 07/15/24 15:35 Stool Stool Occult Blood (LOIS) - Final Occult Blood Positive D/C Instructions DC O2, CPAP, BIPAP Needs Home O2 Discharge instructions: No Meaningful Use Info Meaningful Use Meaningful Use Diagnoses (Choose all that apply): None applicable Ischemic Stroke Statin Dosing Therapy Reference: STATIN DOSE THERAPY REFERENCE: * Patients > 75 years receive moderate or high dose statin therapy. * Patients 75 years or YOUNGER should receive HIGH intensity statin dose unless contraindicated. You will be required to document reason for non-treatment if statin daily dose does not meet guidelines. HIGH DOSE STATIN THERAPY DAILY Atorvastatin > than or = to 40 mg Rosuvastatin > than or = to 20 mg Amlodipine + Atorvastatin > than or = to 2.5/40 mg Ezetimibe + Simvastatin 10/80 mg Simvastatin 80mg Discharge Plan Admission Admit Date/Time: 07/15/24 18:10 Primary Reason for Your Visit: bloody stools Attending Provider: Brodie Swartz Primary Care Provider: Vikram Segura Consulting Providers: Brad Winslow; Leonora Mojica Instructions Additional Instructions / Restrictions: Please start taking a baby aspirin daily and stop taking Plavix. You can also stop taking the potassium supplement. Continue your other home indications as normal. Follow-up with your primary care doctor as needed. Discharge Orders/Prescriptions Prescriptions: New aspirin 81 mg capsule 81 mg PO DAILY 30 Days Qty: 30 0RF Continued pramipexole 1.5 mg tablet 1.5 mg PO DAILY Patient Comments: TAKE 1 TABLET 2 TO 3 HOURS BEFORE BEDTIME FOR RESTLESS LEGS valsartan-hydrochlorothiazide 320-25 mg tablet 1 tab PO DAILY memantine 10 mg tablet 10 mg PO DAILY amlodipine 5 mg tablet 5 mg PO DAILY escitalopram oxalate 5 mg tablet 5 mg PO QPM diphenhydramine-acetaminophen [Acetaminophen PM] 25-500 mg tablet 1 tab PO QHS PRN (Reason: sleep) pantoprazole 40 mg Tablet,Delayed Release (Dr/Ec) 40 mg PO BID 30 Days Qty: 60 2RF Discontinued clopidogrel 75 mg Tablet 75 mg PO DAILY Qty: 30 0RF potassium chloride 10 mEq tablet extended release 20 meq PO BID Referrals / Follow Up: Vikram Segura MD [Primary Care Provider] - 07/26/24 11:20 am Disposition Disposition (needs filled in before D/C Order can be placed): Home, Self Care Charges/Coding Visit Charges Inpatient E&M: 89766 Disch Hosp >30min
--- NOTE | 2024-07-17 12:15 | PHA.DC.MC.R ---
Pharmacy [facility] has performed discharge medication reconciliation and counseling for this patient. 1. ASPIRIN 81MG PO DAILY 2. STOP CLOPIDOGREL AND POTASSIUM The patient's discharge medication list was reviewed for discrepancies and discrepancies were resolved. The patient was counseled on the following discharge medications and changes in medications for homegoing were reviewed. The Reason for Use, instructions for use, and potential side effects were reviewed for all new medications. The patient's questions regarding all of their medications were answered. The patient was able to verbally demonstrate an understanding of their discharge medications. Patient counseled by accredited pharmacy technicianErwin. Medications at Discharge Home Medications pramipexole 1.5 mg tablet 1.5 mg PO DAILY 10/16/22 valsartan 320 mg-hydrochlorothiazide 25 mg tablet 1 tab PO DAILY 10/16/22 memantine 10 mg tablet 10 mg PO DAILY 04/28/23 amlodipine 5 mg tablet 5 mg PO DAILY 06/11/23 pantoprazole 40 mg tablet,delayed release 40 mg PO BID 30 days #60 tabs 03/25/24 diphenhydramine 25 mg-acetaminophen 500 mg tablet (Acetaminophen PM) 1 tab PO QHS PRN sleep 07/15/24 escitalopram oxalate 5 mg tablet 5 mg PO QPM 07/15/24 aspirin 81 mg capsule 81 mg PO DAILY 30 days #30 caps 07/17/24
== END 2024-07-17 12:11 | disposition home or self-care (01) ==
LOC: ED 17:45 → MS3 18:15
PROVIDERS: Admitting Provider Internal Medicine; Emergency Provider Emergency Medicine; PCP Family Medicine; Visit Provider Hospitalist
DX: K92.2 Gastrointestinal hemorrhage, unspecified (principal); J44.9 Chronic obstructive pulmonary disease, unspecified; F32.A Depression, unspecified; F41.9 Anxiety disorder, unspecified; E78.00 Pure hypercholesterolemia, unspecified; Z90.710 Acquired absence of both cervix and uterus; Z79.82 Long term (current) use of aspirin; Z79.02 Long term (current) use of antithrombotics/antiplatelets; Z87.891 Personal history of nicotine dependence; M16.12 Unilateral primary osteoarthritis, left hip; Z86.16 Personal history of COVID-19; I10 Essential (primary) hypertension; G25.81 Restless legs syndrome; Z86.73 Personal history of transient ischemic attack (TIA), and cerebral infarction without residual deficits; K21.9 Gastro-esophageal reflux disease without esophagitis; G31.84 Mild cognitive impairment of uncertain or unknown etiology; D50.9 Iron deficiency anemia, unspecified
CPT/HCPCS: 36415; 74174; 80048; 82274; 85014; 85018; 85025; 85027; 85610; 85730; 86850; 86870; 86880; 86900; 86901; 86902; 86905; 86920; 86922; 96361; 96365; 96366; 99221; 99284; Q9967; A4216; G0378

== ENCOUNTER → 2024-07-26 | Outpatient (CLI) | payer MEDICARE, SELFPAY ==
[2024-07-26 15:26] LABS: Absolute Lymphocyte Count 1.04 X10^3/uL (0.83-4.51); Absolute Neutrophil Count 4.6 X10^3/uL (2.0-7.7); Basophil# 0.05 X10^3/uL; Basophil% 0.8 % (0-1); Eosinophil# 0.09 X10^3/uL; Eosinophils% 1.4 % (0-5); Hematocrit 40.2 % (37-47); Hemoglobin 12.6 g/dL (12.0-15.0); Lymphocyte # 1.04 X10^3/ul (0.83-4.51); Mean Corp Hgb Conc 31.3 g/dL (32-36); Mean Corpuscular Hgb 27.9 pg (27.0-32.0); Mean Corpuscular Volume 89.1 fL (81-99); Mean Platelet Vol. 10.5 fl (6.2-12.0); Monocyte# 0.69 X10^3/uL; Monocyte% 10.6 % (0-10); NRBC Flagged by Analyzer 0 % (0-5); Neutrophil # 4.63 X10^3/uL (2.7-7.7); Neutrophil % 70.9 % (47-70); Platelet Count 279 K/mm3 (150-450); RBC Distribution Width CV 13.8 % (11.6-14.6); RBC Distribution Width SD 44.8 fl (35.1-43.9); Red Blood Count 4.51 M/mm3 (4.2-5.4); White Blood Count 6.5 K/mm3 (4.4-11.0)
[2024-07-26 16:04] LABS: ALB/GLOB Ratio 1.4 RATIO (0.9-2.4); AST(SGOT) 22 U/L (<=31); Alanine Aminotransfer ALT/SGPT 14 U/L (<=34); Albumin, Serum 4.4 g/dL (3.4-4.8); Alkaline Phosphatase 89 U/L (35-104); Anion Gap 13 (5-15); BUN 14 mg/dL (4-19); BUN/Creat Ratio 19.1 RATIO (10-20); Calcium,Total 9.9 mg/dL (7.6-11.0); Carbon Dioxide 24.1 mmol/L (21.0-32.0); Chloride 96 mmol/L (98-108); Creatinine, Serum 0.71 mg/dL (0.70-1.20); EST Glomerular Filtration Rate 85 (>60); Ferritin 38 ng/mL (22-378); Glucose 101 mg/dL (70-99); Potassium 3.4 mmol/L (3.3-5.1); Protein, Total 7.4 g/dL (5.9-8.4); Sodium Level 133 mmol/L (133-145); Total Bilirubin 0.26 mg/dL (0.00-1.30)
== END | disposition home or self-care (01) ==
LOC: MFPLAB 12:11
PROVIDERS: PCP Family Medicine; Referring Provider Family Medicine; Visit Provider Family Medicine
DX: K92.2 Gastrointestinal hemorrhage, unspecified (principal); E03.9 Hypothyroidism, unspecified; D64.9 Anemia, unspecified
CPT/HCPCS: 36415; 80053; 82728; 84439; 84443; 85025

== ENCOUNTER → 2024-09-28 | Outpatient (CLI) | payer MEDICARE, SELFPAY ==
--- NOTE | 2024-09-28 14:30 | RAD_ITS ---
PROCEDURE: FINGER(S) MIN 2 VIEWS 09/28/2024 REASON FOR EXAM: SWELLING ON of the RIGHT INDEX FINGER TECHNIQUE: FINGER(S) MIN 2 VIEWS COMPARISON: None. FINDINGS: Bones: Bone mineralization is normal. No fracture or dislocation. No erosive or lytic process identified. Joints: Unremarkable. Soft tissues: Generalized soft tissue swelling. Other: RAD/Finger(s) Min 2 Views IMPRESSION: No acute osseous injury. Reading Location: [facility]
== END | disposition home or self-care (01) ==
LOC: MTRAD 14:26
PROVIDERS: PCP Family Medicine
DX: R60.0 Localized edema (principal)
CPT/HCPCS: 73140

== ENCOUNTER 2024-10-15 20:09 | Emergency (ER) | payer MEDICARE, SELFPAY ==
[2024-10-15 20:10] VITALS: BP 159/62; PULSE 94; RESP 16; TEMP 36.8; O2SAT 98; BMI 23.0
--- NOTE | 2024-10-15 21:07 | ED.RN ---
2106: PT APPROACHED THE NURSES STATION AND STATED I AM GOING HOME. IF IT GETS REAL BAD IN THE NIGHT I WILL CALL THE [facility], OR MAYBE I WON'T. REGISTRATION NOTIFIED, PT. LEFT WITHOUT BEING SEEN.
== END 2024-10-15 21:07 | disposition left against medical advice (07) ==
LOC: ED 21:10
PROVIDERS: PCP Family Medicine
DX: Z53.21 Procedure and treatment not carried out due to patient leaving prior to being seen by health care provider (principal)
CPT/HCPCS: 99281

== ENCOUNTER 2024-10-16 19:19 | Inpatient (IN) | payer MEDICARE, SELFPAY ==
[2024-10-16 19:21] VITALS: BP 105/51; PULSE 97; RESP 14; TEMP 36.1; O2SAT 100
[2024-10-16 21:00] VITALS: BP 138/69; PULSE 76; RESP 16; O2SAT 98
--- NOTE | 2024-10-16 21:27 | EX.ED.DYSGE1 ---
HPI History of Present Illness Chief Complaint: GI Bleed Narrative Narrative: Chief complaint and HPI: GI bleed. 84-year-old female with past medical history upper GI bleed, TIA, HTN presents for evaluation of GI bleed. Patient states she has been constipated for the past several days. States she had a bowel movement yesterday that had bright red blood. Patient states she is continue to have bowel movements throughout the day today that are more dark in color. She denies any fever, chills, chest pain, shortness of breath, lightheadedness. States she has intermittent abdominal pain. Not on a blood thinner. On chart review, patient had an EGD performed by Dr. Winslow in March 2024. 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 Review of systems: See HPI Medications: As listed on the chart Allergies: As listed on the chart PFSH: Per chart Vital signs: As listed on the chart. Reviewed. Physical exam: Gen: A&O x3, NAD Head: Normocephalic, atraumatic Eyes: No sclera icterus, conjunctiva clear ENT: Moist mucous membranes Neck: Trachea midline, No JVD CV: RRR, no murmurs, no peripheral edema Resp: Lungs CTA BL, no w/r/c GI: Abd soft, non-distended, non-tender, no r/r/g Rectal: Normal external examination. No evidence of hemorrhoids or fissures. Normal tone and sensation. No masses, fluctuance, or tenderness. No pain out of proportion. Maroon stool on gloved finger. Musc: Full ROM, no deformity Skin: Warm, dry Neuro: Alert, oriented, grossly intact, sensation intact Psych: Cooperative, appropriate mood and affect [facility] Medical History Anemia GI bleed History of COPD Head injury Laceration of head Inability to ambulate due to knee ZONIA (obstructive sleep apnea) Essential hypertension History of dementia History of CVA in adulthood Recurrent episodes of unresponsiveness TIA (transient ischemic attack) Confusion COPD (chronic obstructive pulmonary disease) Alzheimer's dementia History of GI bleed GERD (gastroesophageal reflux disease) Anxiety and depression COVID-19 Hypertensive emergency without congestive heart failure DCIS (ductal carcinoma in situ) of breast Vitamin D deficiency Hypercholesterolemia Arthritis Ductal carcinoma in situ (DCIS) of right breast Fall Hypothyroidism Home Medications ?Medication ?Instructions ?Recorded ?Last Taken ?Type pramipexole 1.5 mg tablet 1.5 mg PO DAILY 10/16/22 07/14/24 History valsartan 320 1 tab PO DAILY 10/16/22 07/14/24 History mg-hydrochlorothiazide 25 mg tablet memantine 10 mg tablet 10 mg PO DAILY 04/28/23 07/15/24 History amlodipine 5 mg tablet 5 mg PO DAILY 06/11/23 07/14/24 History pantoprazole 40 mg tablet,delayed 40 mg PO BID 30 days #60 tabs 03/25/24 07/15/24 Rx release diphenhydramine 25 1 tab PO QHS PRN sleep 07/15/24 07/14/24 History mg-acetaminophen 500 mg tablet (Acetaminophen PM) escitalopram oxalate 5 mg tablet 5 mg PO QPM 07/15/24 07/14/24 History aspirin 81 mg capsule 81 mg PO DAILY 30 days #30 caps 07/17/24 Unknown Rx docusate sodium 100 mg capsule 100 mg PO QHS constipation 10/16/24 Unknown History hydralazine 10 mg tablet 10 mg PO BID PRN PRN blood pressure 10/16/24 Unknown History Allergy/AdvReac Type Severity Reaction Status Date / Time lisinopril Allergy Mild cough Verified 10/16/24 19:21 alendronate sodium (From Allergy Unknown unknown Verified 10/16/24 19:21 Fosamax) Sulfa (Sulfonamide Allergy Rash Verified 10/16/24 19:21 Antibiotics) atorvastatin (From Lipitor) AdvReac Mild muscle Verified 10/16/24 19:21 aches rosuvastatin (From Crestor) AdvReac Mild muscle Verified 10/16/24 19:21 aches codeine AdvReac Nausea Verified 10/16/24 19:21 NSAIDS (Non-Steroidal AdvReac Bleeding Verified 10/16/24 19:21 Anti-Inflamma Family History Mother Heart disease CVA (cerebral vascular accident) Father Heart disease Surgical History Status post placement of implantable loop recorder (11/08/22) History of right hip replacement History of left mastoidectomy History of lumpectomy of right breast History of thyroid surgery History of hysterectomy Social History household members: spouse Smoking Status: Former smoker how long ago did patient quit smoking: Quit ~ 24-25 years prior. alcohol intake: current alcohol intake frequency: a few times a month details: 1 drink/[place] nightly. substance use type: other details: Given THC chew per her family for sleep but prior no substance use. EXAM Physical Exam Const Vital Signs: 10/16/24 19:21 10/16/24 21:00 10/16/24 22:00 Temperature 97 F L Temperature Source Temporal Pulse Rate 97 76 78 Respiratory Rate 14 16 16 Blood Pressure 105/51 L 138/69 H 98/82 H Blood Pressure Mean 69 92 87 Pulse Ox 100 98 100 Oxygen Delivery Method Room Air Room Air Room Air 10/16/24 22:55 10/17/24 00:00 Temperature 97.6 F L Temperature Source Pulse Rate 74 69 Respiratory Rate 14 18 Blood Pressure 120/85 H 130/50 H Blood Pressure Mean 96 76 Pulse Ox 97 97 Oxygen Delivery Method Room Air MDM MDM MDM Narrative Medical decision making narrative: 84-year-old female with past medical history upper GI bleed, TIA, HTN presents for evaluation of GI bleed. Onset of symptoms yesterday. On chart review, patient had an EGD performed by Dr. Winslow in March 2024. 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 Physical exam shows maroon-colored stool on gloved finger. Differential diagnosis includes but is not limited to upper GI bleed, lower GI bleed, anemia, electrolyte abnormality, colitis. Given concern for upper GI bleed, Protonix and NS bolus ordered. Laboratory workup ordered including CTA abdomen and pelvis. CBC without leukocytosis. Patient is anemia with a hemoglobin of 8.5. In July of this month, patient had a hemoglobin of 12.6. Platelet count unremarkable. BMP shows an elevated BUN of 38 and a normal creatinine. This is concerning for upper GI bleed. Lactic acid unremarkable. CT abdomen pelvis shows new focal hyperdensity within a diverticulum near the hepatic flexure, for which GI bleeding is not excluded. Colonic diverticulosis without diverticulitis. 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 Hepatic steatosis. I was personally informed of the findings by radiology over the telephone. On reevaluation, patient has not had a bowel movement here in the emergency department however her blood pressure has been decreasing to 98/82. Given the slow decrease in blood pressure with acute anemia, patient will be typed and screened and 2 units RBCs ordered. With Protonix drip as I cannot rule out upper GI bleed with lower GI bleed. Dr. Winslow was consulted and patient was discussed. Agrees with admission and blood transfusion. Patient will need endoscopy. Patient was updated of all the results and confirmed understanding of the plan. I spoke with hospitalist service who accepted admission. Patient will be placed in the ICU. 35 minutes of critical care time utilized in managing the patient. This is due to high probability of and deterioration of the patient based on the patient's condition and excludes any separately billable procedures. Impression: 1. GI bleed, upper versus lower 2. Acute anemia likely secondary to #1 Lab Data Labs: Laboratory Results - last 24 hr 10/16/24 10/16/24 21:56 22:44 WBC 7.8 RBC 3.11 L Hgb 8.5 L Hct 26.7 L MCV 85.9 MCH 27.3 MCHC 31.8 L RDW Std Deviation 46.7 H RDW Coeff of Kierra 14.9 H Plt Count 218 MPV 10.2 Immature Gran % (Auto) 0.400 Neut % (Auto) 65.4 Lymph % (Auto) 20.5 Wise % (Auto) 10.7 H Eos % (Auto) 2.2 Baso % (Auto) 0.8 Absolute Neuts (auto) 5.1 Absolute Lymphs (auto) 1.60 Nucleated RBC % 0 Sodium 135 Potassium 3.3 Chloride 100 Carbon Dioxide 22.7 Anion Gap 13 BUN 38 H Creatinine 1.01 Estim Creat Clear Calc 34.30 L Est GFR (MDRD) Non-Af 55 L BUN/Creatinine Ratio 37.8 H Glucose 139 H Lactic Acid 1.8 Calcium 9.2 Total Bilirubin 0.27 AST 18 ALT 13 Alkaline Phosphatase 60 Total Protein 6.1 Albumin 3.8 Globulin 2.3 Albumin/Globulin Ratio 1.6 Lipase 54 Blood Type O POSITIVE Antibody Screen POSITIVE Antibody Identification ANTI-E Crossmatch See Detail Radiography Diagnostic Testing: Clinical Impression(s) from Imaging Studies Abdomen/Pelvis CTA 10/16/24 22:10 IMPRESSION: 1. There is new focal hyperdensity within a diverticulum near the hepatic flexure, for which gastrointestinal bleeding is not excluded. Dense enteric contents could also appear similar, and absence of a noncontrast series limits their differentiation. Recommend GI consultation. 2. Extensive colonic diverticulosis, without current evidence of acute diverticulitis. 3. 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 4. 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 5. Hepatic steatosis. [place] Alert: Possible GI bleed The critical information above was relayed directly by me by telephone to Ketan Couch on 10/16/2024 at 10:33 pm with readback verification. Reading Location: [id number] Discharge Plan Disposition Disposition: Acute Care Hospital [facility] Discharge Date/Time: 10/17/24 00:20
[2024-10-16] MEDS: 0.9% Normal Saline (1000mL) 1,000 ML 999 ML IV (21:59)
[2024-10-16 22:00] VITALS: BP 98/82; PULSE 78; RESP 16; O2SAT 100
[2024-10-16] MEDS: Pantoprazole Sodium 40 MG in 0.9% Normal Saline (100mL MB+) 100 ML 300 MG IV (22:00)
[2024-10-16 22:03] VITALS: BMI 23.7
[2024-10-16 22:07] LABS: Hematocrit 26.7 % (37-47); Hemoglobin 8.5 g/dL (12.0-15.0); Immature Granulocytes Count 0.030 X10^3/uL (0.0-0.0); Mean Corp Hgb Conc 31.8 g/dL (32-36); Mean Corpuscular Volume 85.9 fL (81-99); Mean Platelet Vol. 10.2 fl (6.2-12.0); NRBC Flagged by Analyzer 0 % (0-5); Platelet Count 218 K/mm3 (150-450); RBC Distribution Width CV 14.9 % (11.6-14.6); RBC Distribution Width SD 46.7 fl (35.1-43.9); Red Blood Count 3.11 M/mm3 (4.2-5.4); White Blood Count 7.8 K/mm3 (4.4-11.0)
--- NOTE | 2024-10-16 22:10 | CT_ITS ---
PROCEDURE: CTA ABD/PELVIS W/WO CONTRAST 10/16/2024 REASON FOR EXAM: GI BLEED TECHNIQUE: CTA ABD/PELVIS W/WO CONTRAST Multiplanar Sagittal and Coronal images were obtained. 3D and or MIPS post processing was performed CONTRAST: Isovue 370 VOLUME: 98 mL One or more dose reduction techniques were used (e.g., Automated exposure control, adjustment of the mA and/or kV according to patient size, use of iterative reconstruction technique). RADIATION DOSE SUMMARY: CTDlvol: 21.4 mGy DLP: 534 mGycm COMPARISON: CTA abdomen and pelvis 07/15/2024 FINDINGS: Aorta: Slight fusiform ectasia of the infrarenal abdominal aorta measuring up to 2.2 cm in diameter, unchanged. Diffuse aortic atherosclerosis without significant stenosis. Iliac Arteries: Scattered atherosclerotic plaque. No aneurysm or significant stenosis. Celiac: Moderate mixed calcified and soft plaque identified with stenosis likely greater than 50%. SMA: Moderate mixed calcified and soft plaque identified, with stenosis likely greater than 50%. RENEE : Mild mixed calcified and soft plaque identified. Right Renal: Mild mixed calcified and soft plaque identified. Left Renal: Mild mixed calcified and soft plaque identified. Extravascular Findings: Linear scarring or atelectasis in the left lung base. The liver is hypodense. Simple cyst in the left kidney. There is extensive colonic diverticulosis, with trace hyperdensity within a diverticula near the hepatic flexure (series 2, image 67), new from prior. No significant inflammatory changes to suggest acute diverticulitis. Prior hysterectomy. Right hip arthroplasty limits evaluation of the pelvic contents. Unchanged T11 compression deformity. Unchanged anterolisthesis of L4 on L5. CT/CTA Abd/Pelvis W/WO Contrast IMPRESSION: 1. There is new focal hyperdensity within a diverticulum near the hepatic flex ure, for which gastrointestinal bleeding is not excluded. Dense enteric contents could also appear similar, and absence of a n oncontrast series limits their differentiation. Recommend GI consultation. 2. Extensive colonic diverticulosis, without current evidence of acute divertic ulitis. 3. Greater than 50% narrowing of the celiac axis and origin of the SMA, unchan ged. 4. Slight ectasia of the infrarenal abdominal aorta measuring up to 2.2 cm, al so unchanged. 5. Hepatic steatosis. [place] Alert: Possible GI bleed The critical information above was relayed directly by me by telephone to Ketan Kirby on 10/16/2024 at 10:33 pm with readback verification. Reading Location: [id number]
[2024-10-16 22:35] LABS: AST(SGOT) 18 U/L (<=31); Alanine Aminotransfer ALT/SGPT 13 U/L (<=34); Albumin, Serum 3.8 g/dL (3.4-4.8); Alkaline Phosphatase 60 U/L (35-104); Anion Gap 13 (5-15); BUN 38 mg/dL (4-19); BUN/Creat Ratio 37.8 RATIO (10-20); Calcium,Total 9.2 mg/dL (7.6-11.0); Carbon Dioxide 22.7 mmol/L (21.0-32.0); Chloride 100 mmol/L (98-108); Estimated Creatinine Clearance 34.30 ml/min (50-250); Globulin 2.3 g/dL (2.2-4.2); Glucose 139 mg/dL (70-99); Lipase 54 U/L (13-75); Potassium 3.3 mmol/L (3.3-5.1)
[2024-10-16 22:55] VITALS: BP 120/85; PULSE 74; RESP 14; TEMP 36.4; O2SAT 97
--- NOTE | 2024-10-16 23:14 | PCM.HP.STD ---
[facility] - General General Date of Admission: 10/17/24 Date of Service: 10/16/24 Chief Complaint: GI Bleed with Dark Stools. [facility] Narrative XAVIER RAMIREZ, is a 84 F with a past medical history of essential hypertension; on amlodipine, valsartan-hydrochlorothiazide and prn hydralazine BID, history of CVA/TIA, history of Alzheimer's dementia; on memantine, history of GI bleed; with previous evaluation by Dr. 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 Ms. Ramirez reports her symptoms began several days prior to admission initially starting with severe constipation lasting multiple days. She states that she then had a bowel movement yesterday with BRBPR. Subsequently she has continued to have bowel movements throughout the day that are more dark in color so she decided to come in for further evaluation and treatment. She admits to intermittent abdominal pain that is cramping and moderate in nature. She does take daily baby aspirin but she denies current anticoagulation. There was no report of fever, chills, vomiting, diarrhea, chest pain, palpitations, heart racing, shortness of breath, cough, headache or rash. In the ER she was noted to have a hemoglobin of 8.5 g/dL (down from 12.6 g/dL on July 26, 2024) consistent with suspected ABLA due to Adverse Drug Reaction to BASA with CT scan of the abdomen revealing new focal hyperdensity within a diverticulum near the hepatic flexure for which gastrointestinal bleeding is not excluded with GI consultation recommended in addition to extensive colonic diverticulosis without evidence of current diverticulitis and greater than ~50% narrowing of the celiac axis and origin of the SMA which is unchanged from previous. Slight ectasia of the infrarenal abdominal aorta measuring up to ~2.2 cm also unchanged with hepatic steatosis. ER physician noted maroon stool on gloved finger. She was then admitted to the ICU for ongoing care for stay that is expected to extend beyond 2 midnights. [facility] Medical History Anemia GI bleed History of COPD Head injury Laceration of head Inability to ambulate due to knee ZONIA (obstructive sleep apnea) Essential hypertension History of dementia History of CVA in adulthood Recurrent episodes of unresponsiveness TIA (transient ischemic attack) Confusion COPD (chronic obstructive pulmonary disease) Alzheimer's dementia History of GI bleed GERD (gastroesophageal reflux disease) Anxiety and depression COVID-19 Hypertensive emergency without congestive heart failure DCIS (ductal carcinoma in situ) of breast Vitamin D deficiency Hypercholesterolemia Arthritis Ductal carcinoma in situ (DCIS) of right breast Fall Hypothyroidism Home Medications ?Medication ?Instructions ?Recorded ?Last Taken ?Type pramipexole 1.5 mg tablet 1.5 mg PO DAILY 10/16/22 07/14/24 History valsartan 320 1 tab PO DAILY 10/16/22 07/14/24 History mg-hydrochlorothiazide 25 mg tablet memantine 10 mg tablet 10 mg PO DAILY 04/28/23 07/15/24 History amlodipine 5 mg tablet 5 mg PO DAILY 06/11/23 07/14/24 History pantoprazole 40 mg tablet,delayed 40 mg PO BID 30 days #60 tabs 03/25/24 07/15/24 Rx release diphenhydramine 25 1 tab PO QHS PRN sleep 07/15/24 07/14/24 History mg-acetaminophen 500 mg tablet (Acetaminophen PM) escitalopram oxalate 5 mg tablet 5 mg PO QPM 07/15/24 07/14/24 History aspirin 81 mg capsule 81 mg PO DAILY 30 days #30 caps 07/17/24 Unknown Rx docusate sodium 100 mg capsule 100 mg PO QHS constipation 10/16/24 Unknown History hydralazine 10 mg tablet 10 mg PO BID PRN PRN blood pressure 10/16/24 Unknown History Allergy/AdvReac Type Severity Reaction Status Date / Time lisinopril Allergy Mild cough Verified 10/16/24 19:21 alendronate sodium (From Allergy Unknown unknown Verified 10/16/24 19:21 Fosamax) Sulfa (Sulfonamide Allergy Rash Verified 10/16/24 19:21 Antibiotics) atorvastatin (From Lipitor) AdvReac Mild muscle Verified 10/16/24 19:21 aches rosuvastatin (From Crestor) AdvReac Mild muscle Verified 10/16/24 19:21 aches codeine AdvReac Nausea Verified 10/16/24 19:21 NSAIDS (Non-Steroidal AdvReac Bleeding Verified 10/16/24 19:21 Anti-Inflamma Family History Mother Heart disease CVA (cerebral vascular accident) Father Heart disease Surgical History Status post placement of implantable loop recorder (11/08/22) History of right hip replacement History of left mastoidectomy History of lumpectomy of right breast History of thyroid surgery History of hysterectomy Social History household members: spouse Smoking Status: Former smoker how long ago did patient quit smoking: Quit ~ 24-25 years prior. alcohol intake: current alcohol intake frequency: a few times a month details: 1 drink/[place] nightly. substance use type: other details: Given THC chew per her family for sleep but prior no substance use. ROS ROS Narrative Review of Systems: Constitutional: Patient denies fever or chills. Eyes: Patient denies change in vision or discharge from eyes. ENT: Patient denies runny nose, sore throat or ear pain. Resp: Patient denies shortness of breath or cough. CV: Patient denies chest pain, palpitations, heart racing or lower extremity edema. GI: Patient admits to severe constipation followed by LGIB with BRBPR followed by dark stools as per HPI. : Patient denies dysuria or hematuria. MSK: Patient denies arthralgias or myalgias. Skin: Patient denies rash, abscess, wounds or jaundice. Psych: Patient denies symptoms of uncontrolled depression or anxiety. Neuro: Patient denies headache, paresthesias or focal neurologic deficits. Allergy: Patient denies lip swelling, tongue swelling or urticaria. Hematology: Patient admits to recent GI bleeding on baby aspirin as per HPI. Endocrinology: Patient denies polyuria, polydipsia, polyphagia or heat/cold intolerance. 14 point ROS otherwise negative except for positives noted above in HPI. Vital Signs Vital Signs Vital Signs: 10/16/24 19:21 10/16/24 21:00 10/16/24 22:00 Temperature 97 F L Temperature Source Temporal Pulse Rate 97 76 78 Respiratory Rate 14 16 16 Blood Pressure 105/51 L 138/69 H 98/82 H Blood Pressure Mean 69 92 87 Pulse Ox 100 98 100 Oxygen Delivery Method Room Air Room Air Room Air 10/16/24 22:55 Temperature 97.6 F L Temperature Source Pulse Rate 74 Respiratory Rate 14 Blood Pressure 120/85 H Blood Pressure Mean 96 Pulse Ox 97 Oxygen Delivery Method Weight Weight: 134 lb 0.657 oz Body Mass Index (BMI) 23.7 Physical Exam Const alert, oriented x3, no apparent distress, average body habitus and healthy appearing General Appearance: cooperative HEENT normocephalic, head/scalp atraumatic and hearing grossly normal bilaterally HEENT Narrative: Mucous membranes dry. Eyes PERRL, EOMs intact bilaterally and conjunctivae normal Neck no lymphadenopathy, supple and no JVD Resp normal respiratory effort, no retractions, no use of accessory muscles and clear to auscultation bilaterally Cardio regular rate and regular rhythm GI normal to inspection, nondistended, normoactive bowel sounds, soft to palpation, non-tender and non-distended GI Narrative: Patient was noted to have maroon stool on gloved finger by ER physician. Extremity normal to inspection, full ROM and no clubbing, cyanosis or edema Skin Skin Narrative: Patient has no evidence of rash, abscess, wounds or jaundice. Neuro oriented x3, CN's II-XII intact bilaterally, moves all extremities and no focal motor deficits Sensorium / Orientation: awake, alert, oriented to person, oriented to place and oriented to time Speech: speech normal Psych affect normal Results Medical Records Data Attestation: I reviewed the patient's medical records Lab / Micro Data Attestation: I reviewed the patient's lab results. 10/16/24 21:56 10/16/24 21:56 Labs: Laboratory Results - last 24 hr 10/16/24 21:56: WBC 7.8, RBC 3.11 L, Hgb 8.5 L, Hct 26.7 L, MCV 85.9, MCH 27.3, MCHC 31.8 L, RDW Std Deviation 46.7 H, RDW Coeff of Kierra 14.9 H, Plt Count 218, MPV 10.2, Immature Gran % (Auto) 0.400, Neut % (Auto) 65.4, Lymph % (Auto) 20.5, Frio % (Auto) 10.7 H, Eos % (Auto) 2.2, Baso % (Auto) 0.8, Absolute Neuts (auto) 5.1, Absolute Lymphs (auto) 1.60, Nucleated RBC % 0, Sodium 135, Potassium 3.3, Chloride 100, Carbon Dioxide 22.7, Anion Gap 13, BUN 38 H, Creatinine 1.01, Estim Creat Clear Calc 34.30 L, Est GFR (MDRD) Non-Af 55 L, BUN/Creatinine Ratio 37.8 H, Glucose 139 H, Lactic Acid 1.8, Calcium 9.2, Total Bilirubin 0.27, AST 18, ALT 13, Alkaline Phosphatase 60, Total Protein 6.1, Albumin 3.8, Globulin 2.3, Albumin/Globulin Ratio 1.6, Lipase 54 Micro: Microbiology 10/16/24 21:56 Stool Stool Occult Blood (LOIS) - Final Occult Blood Positive Imaging Radiology Impression Abdomen/Pelvis CTA 10/16/24 22:10 IMPRESSION: 1. There is new focal hyperdensity within a diverticulum near the hepatic flexure, for which gastrointestinal bleeding is not excluded. Dense enteric contents could also appear similar, and absence of a noncontrast series limits their differentiation. Recommend GI consultation. 2. Extensive colonic diverticulosis, without current evidence of acute diverticulitis. 3. 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 4. 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 5. Hepatic steatosis. [place] Alert: Possible GI bleed The critical information above was relayed directly by me by telephone to Ketan Couch on 10/16/2024 at 10:33 pm with readback verification. Reading Location: [id number] Assessment & Plan Assessment/Plan (1) GI bleed: QUALIFIERS: GI bleed type/associated pathology: unspecified gastrointestinal hemorrhage type Qualified Code(s): K92.2 - Gastrointestinal hemorrhage, unspecified (2) Acute blood loss anemia: (3) Adverse drug reaction: QUALIFIERS: Encounter type: initial encounter Qualified Code(s): T50.905A - Adverse effect of unspecified drugs, medicaments and biological substances, initial encounter (4) History of GI bleed: (5) Diverticular disease: (6) History of angiodysplasia of intestinal tract: (7) GERD (gastroesophageal reflux disease): QUALIFIERS: Esophagitis presence: esophagitis presence not specified Qualified Code(s): K21.9 - Gastro-esophageal reflux disease without esophagitis PLAN: Plan 1. Suspected Upper and Lower GI Bleed with ABLA evidenced by hemoglobin of 8.5 g/dL (down from 12.6 g/dL on July 26, 2024) with elevated BUN of 38 mg/dL present on admission and CT scan of the abdomen revealing new focal hyperdensity within a diverticulum near the hepatic flexure for which gastrointestinal bleeding is not excluded with GI consultation recommended with the ER physician noting maroon stool on gloved finger - Admit to ICU. Keep strict NPO. Continue pantoprazole IV infusion began in ER. Give IV ondansetron as needed for nausea vomiting. Type & screen blood and transfuse for hemoglobin less than 7 g/dL. Check iron levels and ferritin. Patient was ordered Go-Lytely bowel prep in preparation for colonoscopy. Finally, Dr. Winslow of gastroenterology was contacted by the ER with formal consultation pending in the a.m. and appreciated in advance. 2. Adverse Drug Reaction to baby aspirin likely precipitating #1 - Stop BASA as patient has had her dose of aspirin decreased in the past and now likely needs to be permanently discontinued to avoid recurrent GI bleeds. 3. History of GI bleed; with previous evaluation by Dr. 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 4. GERD; on pantoprazole adding to the medical complexity of #1 - #3 - Patient on pantoprazole IV infusion for #1. 5. Essential hypertension; on amlodipine, valsartan-hydrochlorothiazide and prn hydralazine BID - Hold scheduled antihypertensives in light of #1. 6. History of CVA/TIA - Noted with no evidence of recurrence at this time. Patient was taking baby aspirin for this issue but now risks outweigh any potential benefits. 7. History of Alzheimer's dementia; on memantine - Restart this agent when patient is cleared for oral intake by GI. 8. History of arrhythmia; s/p PPM - Noted. 9. Depression with anxiety; on escitalopram - Restart escitalopram when patient is cleared for oral intake. 10. History of DCIS; s/p lumpectomy of the Right breast - Noted. 11. ZONIA - Avoid CPAP at this time in an effort to prevent insufflating bowel which may exacerbate #1. 12. OA; with history of Right THR - Stable. 13. DVT prophylaxis - SCD's only in light of #1. Total time: Approximately (but not less than) 75 minutes. Charges/Coding Visit Charges Inpatient E&M: 64272 Init Hosp L3
[2024-10-16] MEDS: Pantoprazole Sodium 80 MG in 0.9% Normal Saline (100mL Bag) 80 ML 10 MG CONT INF (23:18)
[2024-10-17] VITALS (27 sets, daily range): BP systolic 98–147; BP diastolic 34–90; PULSE 62–88; RESP 15–24; TEMP 35.8–37.1; O2SAT 92–100; BMI 22.8
--- OUTSIDE RECORDS SUMMARY | 2024-10-17 00:39 | XMS RPT_ITS | CCD ---
Author Organization [facility] Care Team Providers Care Cutting Department Supervisor Name Role Phone Micky Teran Unavailable Unavailable *SELF, REFERRED Unavailable Unavailable Natalia Gaines Unavailable Unava ilable Honda, Kofid Shuji Unavailable Unavailable WhitneyMicky carvalho Unavailable Unavailable Antenucdanielle, Natalia Yeung Unavailable Unava ilable Dr. Jose Hdz Primary Care Provider Dr. Catalino Sidhu Attending Provider Jose Hdz MD Primary Care Provider Dr. Jose Hdz Primary Care Provider Dr. Catalino Sidhu Attending Provider MD Charles Contreras Emergency Provider Dr. Emily Verdugo Admit Provider Dr. Emily Verdugo Other Provider Dr. Guille Jamison Attending Provider Dr. Guille Jamison Other Provider Jose Hdz MD Primary Care Provider [phone] oJse Hdz Primary Care Provider Dr. Terry Vuong Emergency Provider Dr. Emily Verdugo Admit Provider Dr. Emily Verdugo Other Provider Dr. Justin Arriaga Attending Provider Dr. Justin Arriaga Other Provider Dr. Guille Jamison Other Provider Dr. Jose Hdz Referring Provider Dr. Catalino Sidhu Attending Provider JORDANA FLORES Attending Unavailable JOSE HDZ Primary Care Unavailable Dr. Jose Hdz Primary Care Provider Dr. Catalino Sidhu Attending Provider Dr. Jose Hdz Referring Provider ROSA ISEAL Gonzalez Attending Provider Dr. Jose Hdz Primary Care Provider Dr. Catalino Sidhu Attending Provider Dr. Jose Hdz Referring Provider ROSA ISELA Gonzalez Attending Provider Dr. Genny Worley Emergency Provider Dr. Emily Verdugo Admit Provider Dr. Emily Verdugo Other Provider Dr. Bernadette Javier Attending Provider Dr. Bernadette Javier Other Provider Dr. Jose R Sidhu Attending Provider Jono Casanova Attending Unavailable Jose Hdz Primary Care Unavailable Dr. Jose Hdz Primary Care Provider [phone] Catalino Sidhu Attending Provider Jose Hdz MD Primary Care Provider [phone] LILA COBB Attending Unavailable JOSE HDZ Referring Unavailable JOSE HDZ Primary Care Unavailable Dr. Jose Hdz Primary Care Provider [phone] Jose Hdz Referring Provider [phone] Yasmine Mejia Attending Provider Unavailable Dr. Catalino Sidhu Attending Provider Dr. Jose Hdz MD Primary Care Provider Dr. Jono Casanova MD Attending Provider Dr. Jono Casanova MD Emergency Provider Dr. Sangita Lima DO Referring Provider Ungriri DO, Dr. Quesada Emergency Provider de Delmar DO, Dr. Kimble Admit Provider Unavail able de Delmar DO, Dr. Kimble Other Provider Unavail able Mosteller DO, Dr. Calloway Attending Provider Nacho BOONE, Dr. Kimble Other Provider Unavailable de Delmar DO, Dr. Kimble Attending Provider Unav ailable Nacho BOONE, Dr. Kimble Attending Provider Unavaila ble Friend DO, Dr. Salinas Attending Provider Maxime TIMMONS, Dr. Calloway Referring Provider Maxime TIMMONS, Dr. Calloway Other Provider [phone] Thea BOONE, Dr. Bae Attending Provider Colton BOONE, Dr. Sue Referring Provider Liane Nevarez Attending Provider Nayla TIMMONS, Dr. Salinas Referring Provider Colton BONOE, Dr. Sue Attending Provider Brittany TIMMONS, Dr. Chappell Emergency Provider Yunior BOONE, Dr. Lea Admit Provider Yunior BOONE, Dr. Lea Attending Provider Dr. Jose Hdz MD Primary Care Provider Dr. Leonora Mojica MD Other Provider Nayla TIMMONS, Dr. Salinas Other Provider Dr. Jose Hdz MD Primary Care Provider Nayla TIMMONS, Dr. Salinas Attending Provider Dr. Catalino Sidhu MD Attending Provider [phone] Maxime TIMMONS, Dr. Calloway Attending Provider Maxime TIMMONS, Dr. Calloway Referring Provider Maxime TIMMONS, Dr. Calloway Other Provider [phone] Colton BOOEN, Dr. Sue Primary Care Provider Dr. Catalino Sidhu MD Attending Provider Friend DO, Dr. Salinas Attending Provider Colton BOONE, Dr. Sue Attending Provider [phone] Colton BOONE, Dr. Sue Referring Provider McMorrow DOCKET SPECIALIST-CAbhilash Attending Provider McMorrow DOCKET SPECIALIST-C, Abhilash Referring Provider [phone] Hdz, Jose Primary Care Unavailable Hdz, Jose Referring Unavailable Hdz, Jose Attending Unavailable Hdz, Jose Referring Unavailable Hdz, Jose Attending Unavailable Hdz, Jose Primary Care Unavailable Thea, Catalino Attending Unavailable Hdz, Jose Primary Care Unavailable Jono Casanova Attending Unavailable Hdz, Jose Primary Care Unavailable FriendBrad Referring Unavailable FriendBrad Attending Unavailable Hdz, Jose Primary Care Unavailable Hdz, Jose Referring Unavailable Hdz, Jose Primary Care Unavailable Hdz, Jose Attending Unavailable Hdz, Jose [facility] Referring Unavailable [facility] D[facility] SPECIALISTAbhilash Attending Unavailable Ungur, Remus Referring Unavailable de Lamin Jacobsen Consulting Unavailable Lamin Ritter Admitting Unavailable Hdz, Jose Primary Care Unavailable Brodie Swartz Attending Unavailable Lamin Griffith Consulting Unavailable Liane Moulton Attending Unavailable Hdz, Jose Referring Unavailable Hdz, Jose Primary Care Unavailable Thea, [place] Attending Unavailable Hdz, Jose Primary Care Unavailable Thea, Catalino Attending Unavailable Hdz, Jose Primary Care Unavailable Thea, [place] Attending Unavailable Hdz, Jose Primary Care Unavailable Leonora Mojica Admitting Unavailable FriendBrad Attending Unavailable FriendBrad Consulting Unavailable Brodie Swartz Referring Unavailable Hdz, Jose Primary Care Unavailable Leonora Mojica Consulting Unavailable Maxime Brodie Consulting Unavailable Maxime Brodie Attending Unavailable Hdz, Jose Primary Care Unavailable Hdz, Jose Attending Unavailable FriendBrad Attending Unavailable Mostmitch Brodie Referring Unavailable Hdz, Jose Primary Care Unavailable Ungur, Remus Referring Unavailable de Lamin Jacobsen Admitting Unavailable de Lamin Jacobsen Consulting Unavailable Hdz, Jose Primary Care Unavailable Maxime Brodie Attending Unavailable KitkiloeLamin Consulting Unavailable Maxime, Brodie Consulting Unavailable Leonora Mojica Attending Unavailable Leonora Mojica Admitting Unavailable Friend, Brad Consulting Unavailable Brodie Swartz Attending Unavailable Hdz, Jose Primary Care Unavailable Leonora Mojica Consulting Unavailable Ungriri, Remus Referring Unavailable Lamin Ritter Attending Unavailable Lamin Ritter Consulting Unavailable Lamin Ritter Admitting Unavailable Hdz, Jose Primary Care Unavailable Hdz, Jose Primary Care Unavailable Hdz, Jose Attending Unavailable Hdz, Jose Referring Unavailable Lamin Griffith Attending Unavailable Lamin Griffith Consulting Unavailable Lamin Griffith Attending Unavailable Brad Winslow Attending Unavailable Thea, [place] Attending Unavailable Hdz, Jose Primary Care Unavailable Thea, [place] Attending Unavailable Hdz, Jose Primary Care Unavailable Thea, Catalino Attending Unavailable Hdz, Jose Primary Care Unavailable Thea, Catalino Attending Unavailable Hdz, Jose Primary Care Unavailable Hdz, Jose Primary Care Unavailable Uriel NATARAJAN, Teresa Leach Attending Unavail able Hdz, Jose Referring Unavailable Thea, [place] Attending Unavailable Hdz, Jose Primary Care Unavailable Thea, [place] Attending Unavailable Hdz, Jose Primary Care Unavailable Thea, Catalino Attending Unavailable Hdz, Jose Primary Care Unavailable Hdz, Jose Primary Care Unavailable Thea, [place] Attending Unavailable [facility] DOCKET SPECIALIST, Abhilash Referring Unavailable McMorrow DOCKET SPECIALIST, Abhilash Attending Unavailable Hdz, Jose Primary Care Unavailable Provider, Ed Physician Emergency Provider Dr. Ketan Anderson DO Emergency Provider Allergies Allergy Classification Reported Allergen(s) Allergy Type Date of Onset Reaction(s) Facility (20 sources) Alendronate Drug Allergy 1 unknown [facility] (20 sources) atorvastatin Drug Allergy 1 muscle aches [facility] (20 sources) Codeine Drug Allergy 1 Nausea [facility] (20 sources) Lisinopril Drug Allergy 1 cough [facility] (20 sources) rosuvastatin Drug Allergy 1 muscle aches [facility] (20 sources) Sulfonamides (Antibiotic); Translations: [SULFA (SULFONAMIDE ANTIBIOTICS)] Allergy to substance 5 Rash [facility] (20 sources) NSAIDS (Non-Steroidal Anti-Inflamma; Translations: [NSAIDS (Non-Steroidal Anti-Inflamma] Propensity to adverse reactions 1 Bleeding [facility] (12 sources) Kihdrtl-Rqw-Zfy Reductase Inhibitor Propensity to adverse reactions 1 Other [facility] (1 source) Alendronate Drug Allergy 5 [facility] (1 source) atorvastatin Drug Allergy 5 [facility] (1 source) Codeine Drug Allergy 5 [facility] (1 source) Lisinopril Drug Allergy 5 [facility] (1 source) rosuvastatin Drug Allergy 5 [facility] Medications Current Medications Medication Drug Class(es) Dates Sig (Normalized) Sig (Original) acetaminophen 500 mg / diphenhydrAMINE hydrochloride 25 mg oral tablet (8 sources) Histamine-1 Receptor Antagonist Start: 07-15-2024 Diphenhydramine -Acetaminophen (Acetaminophen Pm) 25-500 mg tablet Active 1 {tbl} PO AT BEDTIME as needed for sleep July 15, 2024 12:00am amLODIPine 5 mg oral tablet (20 sources) Dihydropyridine Calcium Channel Angel Start: 06-11-2023 take 1 tablet by mouth once daily Amlodipine 5 mg tablet Active 5 mg PO DAILY June 11, 2023 1:00am Start: 10-16-2022 End: 06-11-2023 take 5 mg by mouth once daily Amlodipine 10 mg tablet Discontinued 5 mg PO DAILY October 16, 2022 12:00am June 11, 2023 11:45am Start: 10-16-2022 End: 06-11-2023 take 5 mg by mouth once daily Amlodipine Discontinued 5 MG PO DAILY October 16, 2022 12:00am June 11, 2023 11:45am Start: 10-16-2022 take 10 mg by mouth once daily Amlodipine Active 10 MG PO DAILY October 15, 2022 11:00pm Start: 10-16-2022 Amlodipine Act margaret MG October 16, 2022 12:00am Start: 08-10-2022 take 0.5 tablet by m outh twice daily amLODIPine (NORVASC) 10 mg tablet Take 0.5 tablets by mouth twice daily. 0 08/10/2022 Active Comment on above: Take 0.5 tablets by mouth twice daily. aspirin 81 mg oral tablet (20 sources) Platelet Aggregation Inhibitor, Nonsteroidal Anti-inflammatory Drug Start: 07-17-2024 take 1 capsule by mouth once daily Aspirin 81 mg capsule Active 81 mg PO DAILY 30 30 0 July 17, 2024 12:00am Start: 06-15-2022 End: 07-15-2024 take 1 tablet by mouth at breakfast Aspirin 81 mg Tablet,Chewable Discontinued 81 mg PO WITH BREAKFAST 0 0 June 15, 2022 1:00am July 15, 2024 5:41pm bisacodyl 5 mg delayed release oral tablet (2 sources) Stimulant Laxative Start: 10-12-2018 bisacodyl EC (DULCOLAX, BISACODYL,) 5 mg EC tablet Take 5 mg by mouth as needed for constipation. 0 10/12/2018 Active Comment on above: Take 5 mg by mouth a s needed for constipation. carvedilol 6.25 mg oral tablet (2 sources) alpha-Adrenergic Angel, beta-Adrenergic Angel Start: 08-06-2022 take 1 tablet by mouth twice daily carvedilol (COREG) 6.25 mg tablet Take 1 tablet by mouth twice daily. 0 08/06/2022 Active Comment on above: Take 1 tablet by rufus th twice daily. docusate sodium 100 mg oral capsule (1 source) Start: 10-16-2024 take 1 capsule by mouth at bedtime Docusate Sodium 100 mg capsule Active 100 mg PO AT BEDTIME October 16, 2024 12:00am constipation escitalopram 5 mg oral tablet (20 sources) Serotonin Reuptake Inhibitor Start: 07-15-2024 take 1 tablet by mouth once daily in the evening Escitalopram Oxalate 5 mg tablet Active 5 mg PO EVERY EVENING July 15, 2024 12:00am Start: 11-07-2017 End: 06-15-2018 take 1 tablet by mouth once daily Escitalopram Oxalate 10 MG tablet Discontinued 10 mg PO DAILY November 07, 2017 12:00am June 15, 2018 2:35pm depression take 1 tablet by rufus th once daily escitalopram oxalate (LEXAPRO) 5 mg tablet Take 5 mg by mouth once daily. 0 Active Comment on above: Take 5 mg by mouth o nce daily. gabapentin 300 mg oral capsule (4 sources) Anti-epileptic Agent gabapentin (NEURONTIN) 300 mg capsule Take 600 mg by mouth as needed. 0 Active Comment on above: Take 600 mg by mouth as needed. gelatin 600 mg oral capsule (4 sources) take 2 capsules by mouth twice daily, then take 2-4 capsules by mouth once daily Gelatin 600 mg cap Take 2 capsules by mouth twice daily. takes 2-4 tablets per day 0 Active Comment on above: Take 2 capsules by m out twice daily. takes 2-4 tablets per day hydrALAZINE hydrochloride 10 mg oral tablet (20 sources) Arteriolar Vasodilator Start: 10-17-19 take 1 tablet by mouth twice daily as needed Hydralazine 10 mg tablet Active 10 mg PO TWICE DAILY NEEDED as needed for blood pressure October 16, 2024 12:00am Start: 03-09-2024 End: 07-15-2024 Hydralazine 25 mg tablet Discontinued 12.5 mg PO TWICE A DAY March 09, 2024 1:00am July 15, 2024 5:42pm On Hold: Resume on 04/09/24. Start: 10-16-2022 End: 04-28-2023 take 1 tablet by mouth once daily Hydralazine 25 mg tablet Discontinued 25 mg PO DAILY October 16, 2022 12:00am April 28, 2023 1:42pm Start: 10-16-2022 Hydralazine Ac tive MG October 16, 2022 12:00am Start: 09-01-2022 take 1 tablet by rufus every eight hours as needed hydrALAZINE (APRESOLINE) 25 mg tablet Take 1 tablet by mouth three times daily as needed. 0 09/01/2022 Active Comment on above: Take 1 tablet by rufus three times daily as needed. hydroCHLOROthiazide 25 mg / valsartan 320 mg oral tablet (20 sources) Thiazide Diuretic, Angiotensin 2 Receptor Angel Start: take 1 tablet by mouth once daily Valsartan-Hydr ochlorothiazid e Active 1 TABLET PO DAILY October 16, 2022 12:00am Start: 10-16-2022 Valsartan-Hydr ochlorothiazide Active TABLET October 16, 2022 12:00am Start: 09-01-2022 Valsartan-Hydr ochlorothiazide 320-25 mg tablet Active 1 {tbl} PO DAILY October 16, 2022 12:00am Comment on above: Take 1 tablet by rufus once daily. indapamide 1.25 mg oral tablet (4 sources) Thiazide-like Diuretic take 1 tablet by mouth once daily indapamide (LOZOL) 1.25 mg tablet Take 1.25 mg by mouth once daily. 0 Active Comment on above: Take 1.25 mg by mout h once daily. levothyroxine sodium 0.025 mg oral capsule (4 sources) l-Thyroxine take 0.5 tablet by mouth once daily Levothyroxine 25 mcg cap Take 0.5 tablets by mouth once daily. 0 Active Comment on above: Take 0.5 tablets by mouth once daily. liothyronine sodium 0.005 mg oral tablet (4 sources) l-Triiodothyronin e take 2 tablets by mouth once daily liothyronine (CYTOMEL) 5 mcg tablet Take 10 mcg by mouth once daily. 0 Active Comment on above: Take 10 mcg by mouth once daily. magnesium oxide 400 mg oral tablet (7 sources) Start: 3 take 1 tablet by mouth once daily at bedtime magnesium oxide (MAG-OX) 400 mg (241.3 mg magnesium) tablet Take 1 tablet by mouth daily at bedtime. 0 08/22/2022 Active Start: 11-26-2019 take 400 mg by mouth once diane y Magnesium Oxide Active 400 MG PO DAILY November 25, 2019 11:00pm Comment on above: Take 1 tablet by rufus th daily at bedtime. melatonin 3 mg oral tablet (2 sources) Start: 9 take 1 tablet by mouth every twenty-four hours as needed melatonin 3 mg tablet Take 3 mg by mouth at bedtime as needed. 0 08/09/2018 Active Comment on above: Take 3 mg by mouth a t bedtime as needed. memantine hydrochloride 10 mg oral tablet (19 sources) W-ufjlnr-B-aspartat e Receptor Antagonist Start: 3 take 1 tablet by mouth once daily Memantine 10 mg tablet Active 10 mg PO DAILY April 28, 2023 1:00am Comment on above: Take 1 tablet by rufus th every afternoon. Multivitamin capsule (4 sources) take 1 capsule by mouth once daily Multivitamin capsule Take 1 capsule by mouth once daily. 0 Active Comment on above: Take 1 capsule by mo cox monett once daily. Nl-Qkl-Npeat-Calcium Carb-K1 (4 sources) Start: 9 Ie-Dtq-Uvgur-Calcium Carb-K1 Active 1 EACH PO TWICE A DAY November 01, 2018 11:00pm Start: 11-02-2018 Es-Osb-Glnle-C alcium Carb-K1 Active 1 EACH PO TWICE A DAY November 02, 2018 12:00am pantoprazole 40 mg delayed release oral tablet (20 sources) Proton Pump Inhibitor Start: 03-25-2024 take 1 tablet by mouth twice daily Pantoprazole 40 mg Tablet,Delayed Release (Dr/Ec) Active 40 mg PO TWICE A DAY 60 30 2 March 25, 2024 1:00am Start: 10-16-2022 End: 03-25-2024 take 1 tablet by mouth once daily Pantoprazole 40 mg tablet,delayed release (DR/EC) Discontinued 40 mg PO DAILY October 16, 2022 12:00am March 25, 2024 1:11pm Start: 10-16-2022 Pantoprazole A ctive MG PO October 16, 2022 12:00am Start: 10-11-2022 take 1 tablet by rufus twice daily pantoprazole DR (PROTONIX) 40 mg tablet Take 1 tablet by mouth twice daily. 0 10/11/2022 Active Comment on above: Take 1 tablet by rufus twice daily. potassium citrate 10 meq extended release oral tablet (6 sources) Start: 10-13-2022 take 1 tablet by mouth once daily potassium citrate ER (UROCIT-K) 10 mEq (1,080 mg) Take 1 tablet by mouth once daily. 0 10/13/2022 Active Start: 11-26-2019 take 1080 mg by mouth once jeanne ly Potassium Citrate Active 1080 MG PO DAILY November 25, 2019 11:00pm Comment on above: Take 1 tablet by rufus once daily. potassium gluconate 2.13 meq oral tablet (4 sources) take 1 tablet by mouth once daily potassium gluconate 500 mg (83 mg) tab Take 1 tablet by mouth once daily. 0 Active Comment on above: Take 1 tablet by rufus once daily. pramipexole dihydrochloride 1.5 mg oral tablet (20 sources) Nonergot Dopamine Agonist Start: Pramipexole Active MG October 16, 2022 12:00am Start: 08-06-2022 take 1 tablet by rufus once daily Pramipexole 1.5 mg tablet Active 1.5 mg PO DAILY October 16, 2022 12:00am Comment on above: Take 1 tablet by rufus th as directed. 2-3 HR before bedtime for restless legs Completed/Discontinued Medications Medication Drug Class(es) Dates Sig (Normalized) Sig (Original) acetaminophen 325 mg / HYDROcodone bitartrate 5 mg oral tablet (20 sources) Opioid Agonist Start: 11-08-2017 End: 06-15-2018 Hydrocodone-Acetami nophen Discontinued 1 EACH PO EVERY 6 HOURS 10 3 November 08, 2017 3:15pm June 15, 2018 2:35pm Start: 11-07-2017 End: 06-15-2018 take 1 tablet by mouth every six hours as needed for pain Hydrocodone-Acetaminophen 1 EACH tablet Discontinued 1 NMA PO EVERY 6 HOURS as needed for Pain 10 3 0 November 08, 2017 3:15pm June 15, 2018 2:35pm Fracture of rib Fracture of one rib, unspecified side, initial encounter for closed fracture take 1 tablet by rufus th every six hours as needed HYDROcodone-Acetaminophen (NORCO) 10-325 mg per tablet Take 1 tablet by mouth every 6 hours as needed. 0 Active Comment on above: Take 1 tablet by rufus th every 6 hours as needed. acetaminophen 325 mg / oxyCODONE hydrochloride 5 mg oral tablet (20 sources) Opioid Agonist Start: 11-08-2018 End: 11-18-2018 Oxycodone-Acetaminophen 1 TABLET tablet Discontinued 1 - 2 {tbl} PO EVERY 4 HOURS NEEDED as needed for Pain 30 November 08, 2018 November 13, 2018 12:00am November 18, 2018 12:08am Mammographic microcalcification found on diagnostic imaging of breast Start: 11-08-2018 End: 11-18-2018 take 1 tablet by mouth every four hours as needed Oxycodone-Acetaminophen Discontinued 1 - 2 TABLET PO EVERY 4 HOURS NEEDED 30 November 08, 2018 November 18, 2018 12:08am [id number] actuat albuterol 0.09 mg/actuat metered dose inhaler (20 sources) beta2-Adrenergic Agonist Start: 06-26-2023 End: 07-15-2024 Albuterol Sulfate (Ventolin Hfa) 90 mcg/actuation HFA aerosol inhaler Discontinued 1 - 2 NMA INHALATION EVERY 4 HOURS NEEDED as needed for Wheezing 1 0 June 26, 2023 1:00am July 15, 2024 5:40pm Start: 06-26-2023 take 1 puff(s) by in halation every four hours as needed Albuterol Sulfate (Ventolin Hfa) 90 mcg/actuation HFA aerosol inhaler Active 1 - 2 PUFF INHALATION EVERY 4 HOURS NEEDED 1 June 26, 2023 1:00am Start: 11-02-2018 take 2 puff(s) by in halation every four hours as needed albuterol HFA (PROVENTIL HFA, VENTOLIN HFA) 90 mcg/actuation inhaler Inhale 2 Puffs as instructed every 4 hours as needed. 0 11/02/2018 Active Start: 11-02-2018 take 1 puff(s) by in halation every four hours as needed Albuterol Sulfate Active 2 PUFF inhalation EVERY 4 HOURS NEEDED November 01, 2018 11:00pm Comment on above: Inhale 2 Puffs as in structed every 4 hours as needed. atorvastatin 40 mg oral tablet (20 sources) HMG-CoA Reductase Inhibitor Start: End: take 1 tablet by mouth at bedtime Atorvastatin 40 mg tablet Discontinued 40 mg PO AT BEDTIME April 28, 2023 1:00am July 15, 2024 5:41pm Start: 06-15-2022 End: 04-28-2023 take 1 tablet by mouth at bedtime Atorvastatin 20 mg Tablet Discontinued 20 mg PO AT BEDTIME 30 0 June 15, 2022 1:00am April 28, 2023 1:42pm Comment on above: Take 1 tablet by rufus once daily. smoking cessation 12 hr buPROPion hydrochloride 150 mg extended release oral tablet (20 sources) Aminoketone Start : 11-25 End: 11-26 take 1 tablet by mouth once daily, then take 1 tablet by mouth every twelve hours Bupropion Hcl (Smoking Deter) 150 MG tablet extended release 12 hr Discontinued 150 mg PO DAILY November 26, 2019 12:00am November 27, 2019 11:10am depression chlorpheniramine maleate 4 mg oral tablet (19 sources) Histamine-1 Receptor Antagonist Start : 08-09 End: 03-09 take 1 tablet by mouth at bedtime Chlorpheniramine Maleate (Allergy (Chlorpheniramine)) 4 mg tablet Discontinued 4 mg PO AT BEDTIME April 28, 2023 1:00am March 09, 2024 12:30pm Comment on above: Take 1 tablet by rufus th daily at bedtime. To help sleep, allergies or staying asleep more than 4 hours. ciprofloxacin 250 mg oral tablet (8 sources) Quinolone Antimicrobial Start : 03-25 End: 07-15 take 1 tablet by mouth twice daily Ciprofloxacin Hcl (Cipro) 250 mg tablet Discontinued 250 mg PO TWICE A DAY 6 3 0 March 25, 2024 1:00am July 15, 2024 3:22pm clopidogrel 75 mg oral tablet (20 sources) [id number] Platelet Inhibitor Start : 06-15 End: 07-17 take 1 tablet by mouth once daily Clopidogrel 75 mg Tablet Discontinued 75 mg PO DAILY 30 June 15, 2022 1:00am July 17, 2024 10:54am Comment on above: Take 1 tablet by rufus once daily. doxepin hydrochloride 10 mg oral capsule (15 sources) Tricyclic Antidepressant Start : 06-25 End: 03-09 take 1 capsule by mouth at bedtime Doxepin 10 mg capsule Discontinued 10 mg PO AT BEDTIME June 26, 2023 1:00am March 09, 2024 12:31pm FLUoxetine 20 mg oral capsule (20 sources) Serotonin Reuptake Inhibitor Start : 11-25 End: 04-28 take 1 capsule by mouth at bedtime Fluoxetine 20 MG capsule Discontinued 20 mg PO AT BEDTIME November 26, 2019 12:00am April 28, 2023 1:42pm depression furosemide 20 mg oral tablet (16 sources) Loop Diuretic Start : 06-25 End: 03-09 take 1 tablet by mouth once daily Furosemide 20 mg tablet Discontinued 20 mg PO DAILY 5 0 June 26, 2023 1:00am March 09, 2024 12:32pm hydroCHLOROthiazide 25 mg oral tablet (20 sources) Thiazide Diuretic Start : 11-26 End: 04-28 Hydrochlorothiazide 25 MG tablet Discontinued 12.5 mg PO DAILY 15 0 November 27, 2019 12:00am April 28, 2023 1:42pm Start: 11-27-2019 End: 04-28-2023 take 12.5 mg by mouth once daily Hydrochlorothiazide Discontinued 12.5 MG PO DAILY November 27, 2019 12:00am April 28, 2023 1:42pm ibuprofen 200 mg oral tablet (20 sources) Nonsteroidal Anti-inflammatory Drug Start: 06-27-2018 End: 06-30-2018 Ibuprofen 200 MG tablet Discontinued 400 mg PO NEEDED as needed for Pain June 27, 2018 12:00am June 30, 2018 10:58am Start: 06-27-2018 End: 06-30-2018 Ibuprofen Discontinued 400 M G PO NEEDED June 27, 2018 12:00am June 30, 2018 10:58am Start: 11-12-2016 End: 11-24-2016 take 2 tablets by mouth once daily Ibuprofen 200 MG tablet Discontinued 400 mg PO DAILY November 12, 2016 12:00am November 24, 2016 12:09pm Start: 11-12-2016 End: 11-24-2016 take 400 mg by mouth once daily Ibuprofen Discontinued 400 MG PO DAILY November 12, 2016 12:00am November 24, 2016 12:09pm isosorbide dinitrate 5 mg oral tablet (20 sources) Nitrate Vasodilator Start: 11-26-2019 End: 11-27-2019 take 1 tablet by mouth at bedtime Isosorbide Dinitrate 5 MG tablet Discontinued 5 mg PO AT BEDTIME November 26, 2019 12:00am November 27, 2019 11:10am heart levocetirizine dihydrochloride 5 mg oral tablet (20 sources) Histamine-1 Receptor Antagonist Start: 11-26-2019 End: 04-28-2023 take 1 tablet by mouth at bedtime Levocetirizine 5 MG tablet Discontinued 5 mg PO AT BEDTIME November 26, 2019 12:00am April 28, 2023 1:42pm Check with primary doctor losartan potassium 100 mg oral tablet (20 sources) Angiotensin 2 Receptor Angel Start: 11-27-2019 End: 04-28-2023 take 1 tablet by mouth once daily Losartan 100 MG tablet Discontinued 100 mg PO DAILY 30 0 November 27, 2019 12:00am April 28, 2023 1:42pm Start: 10-08-2014 End: 11-27-2019 Losartan 50 MG tablet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 Comment on above: Order Comment: Order Date: 07/26/24Order Info: 0184-1 - CBCD Performed By: #### L 501.9520, L503.6550, L506.0400, L100.0100, L500.4050 ####[facility] [address] [place], [address] Hemoglobin (Bld) [Mass/Vol] 12.6 g/dL Normal 12.0-15.0 [facility] Comment on above: Order Comment: Order Date: 07/26/24Order Info: 0184-1 - CBCD Performed By: #### L 501.9520, L503.6550, L506.0400, L100.0100, L500.4050 ####[facility] [address] [place], [address] IG% 0.300 Normal 0.0-0.9 [facility] Comment on above: Order Comment: Order Date: 07/26/24Order Info: 0184-1 - CBCD Result Comment: IG% - Immature Granulocytes (promyelocytes, myelocytes andmetamyelocytes) > 1% indicates that a LEFT SHIFT is Present. Performed By: #### L 501.9520, L503.6550, L506.0400, L100.0100, L500.4050 ####[facility] [address] [place], [address] Lymphocytes/100 WBC (Bld) 16.0 % Low 19-41 [facility] Comment on above: Order Comment: Order Date: 07/26/24Order Info: 0184-1 - CBCD Performed By: #### L 501.9520, L503.6550, L506.0400, L100.0100, L500.4050 ####[facility] [address] [place], [address] MCH (RBC) [Entitic mass] 27.9 pg Normal 27.0-32.0 [facility] Comment on above: Order Comment: Order Date: 07/26/24Order Info: 0184-1 - CBCD Performed By: #### L 501.9520, L503.6550, L506.0400, L100.0100, L500.4050 ####[facility] [address] [place], [address] MCHC (RBC) [Mass/Vol] 31.3 g/dL Low 32-36 [facility] Comment on above: Order Comment: Order Date: 07/26/24Order Info: 0184-1 - CBCD Performed By: #### L 501.9520, L503.6550, L506.0400, L100.0100, L500.4050 ####[facility] [address] [place], [address] MCV (RBC) [Entitic vol] 89.1 fL Normal 81-99 [facility] Comment on above: Order Comment: Order Date: 07/26/24Order Info: 0184-1 - CBCD Performed By: #### L 501.9520, L503.6550, L506.0400, L100.0100, L500.4050 ####[facility] [address] [place], [address] Monocytes/100 WBC (Bld) 10.6 % High 0-10 [facility] Comment on above: Order Comment: Order Date: 07/26/24Order Info: 0184-1 - CBCD Performed By: #### L 501.9520, L503.6550, L506.0400, L100.0100, L500.4050 ####[facility] [address] [place], [address] Neutrophils/100 WBC (Bld) 70.9 % High 47-70 [facility] Comment on above: Order Comment: Order Date: 07/26/24Order Info: 0184-1 - CBCD Performed By: #### L 501.9520, L503.6550, L506.0400, L100.0100, L500.4050 ####[facility] [address] [place], [address] Nucleated RBC (Bld) [#/Vol] 0 10*3/uL Normal 0-5 [facility] Comment on above: Order Comment: Order Date: 07/26/24Order Info: 0184-1 - CBCD Performed By: #### L 501.9520, L503.6550, L506.0400, L100.0100, L500.4050 ####[facility] [address] [place], [address] Platelet mean volume (Bld) [Entitic vol] 10.5 fL Normal 6.2-12.0 [facility] Comment on above: Order Comment: Order Date: 07/26/24Order Info: 0184-1 - CBCD Performed By: #### L 501.9520, L503.6550, L506.0400, L100.0100, L500.4050 ####[facility] [address] [place], [address] Platelets (Bld) [#/Vol] 279 10*3/uL Normal 150-450 [facility] Comment on above: Order Comment: Order Date: 07/26/24Order Info: 0184-1 - CBCD Performed By: #### L 501.9520, L503.6550, L506.0400, L100.0100, L500.4050 ####[facility] [address] [place], [address] RBC (Bld) [#/Vol] 4.51 10*6/uL Normal 4.2-5.[address] [facility] Comment on above: Order Comment: Order Date: 07/26/24Order Info: 0184-1 - CBCD Performed By: #### L 501.9520, L503.6550, L506.0400, L100.0100, L500.4050 ####[facility] [address] [place], [address] RDW SD 44.8 fl High 35.1-43.9 [facility] Comment on above: Order Comment: Order Date: 07/26/24Order Info: 0184-1 - CBCD Performed By: #### L 501.9520, L503.6550, L506.0400, L100.0100, L500.4050 ####[facility] [address] [place], [address] WBC (Bld) [#/Vol] 6.5 10*3/uL Normal 4.4-11.0 [facility] Comment on above: Order Comment: Order Date: 07/26/24Order Info: 018- - CBCD Performed By: #### L 501.9520, L503.6550, L506.0400, L100.0100, L500.4050 ####[facility] [address] [place], [address] Carbon dioxide, total [Moles /volume] in Central venous bloodOrdered By: Jose Hdz on 07-26-2024 CO2 [Moles/Vol] 24.1 mmol/L 21.0-32.0 [facility] Chloride assayOrdered By: Amol Hdz on 07-26-2024 Chloride [Moles/Vol] 96 mmol/L Low 98-108 [facility] Comprehensive Metabolic Prof ilon 07-26-2024 Albumin [Mass/Vol] 4.4 g/dL Normal 3.4-4.8 [facility] Comment on above: Order Comment: Order Date: 07/26/24Order Info: 0786-1 - CMPOrder Info: 3016-3 - TSHOrder Info: 2276-4 - FEROrder Info: 3024-7 - T4F Performed By: #### L 501.9520, L503.6550, L506.0400, L100.0100, L500.4050 ####[facility] [address] [place], [address] Albumin/Globulin [Mass ratio] 1.4 {ratio} Normal 0.9-2.4 [facility] Comment on above: Order Comment: Order Date: 07/26/24Order Info: 0786-1 - CMPOrder Info: 6-3 - TSHOrder Info: 2275-4 - FEROrder Info: 3024-7 - T4F Performed By: #### L 501.9520, L503.6550, L506.0400, L100.0100, L500.4050 ####[facility] [address] [place], [address] ALK PHOS 89 U/L Normal 35-104 [facility] Comment on above: Order Comment: Order Date: 07/26/24Order Info: 0786-1 - CMPOrder Info: 3 - TSHOrder Info: 2275-4 - FEROrder Info: 3024-7 - T4F Performed By: #### L 501.9520, L503.6550, L506.0400, L100.0100, L500.4050 ####[facility] [address] [place], [address] ALT [Catalytic activity/Vol] 14 U/L Normal <=34 [facility] Comment on above: Order Comment: Order Date: 07/26/24Order Info: 0786-1 - CMPOrder Info: 3 - TSHOrder Info: 2276-4 - FEROrder Info: 3024-7 - T4F Performed By: #### L 501.9520, L503.6550, L506.0400, L100.0100, L500.4050 ####[facility] [address] [place], [address] AST [Catalytic activity/Vol] 22 U/L Normal <=31 [facility] Comment on above: Order Comment: Order Date: 07/26/24Order Info: 0786-1 - CMPOrder Info: 6-3 - TSHOrder Info: 227-4 - FEROrder Info: 3024-7 - T4F Performed By: #### L 501.9520, L503.6550, L506.0400, L100.0100, L500.4050 ####[facility] [address] [place], [address] Bilirubin [Mass/Vol] 0.26 mg/dL Normal 0.00-1.30 [facility] Comment on above: Order Comment: Order Date: 07/26/24Order Info: 0786-1 - CMPOrder Info: 3015-3 - TSHOrder Info: 4 - FEROrder Info: 7 - T4F Performed By: #### L 501.9520, L503.6550, L506.0400, L100.0100, L500.4050 ####[facility] [address] [place], [address] BUN/CRE 19.1 RATIO Normal 10-20 [facility] Comment on above: Order Comment: Order Date: 07/26/24Order Info: 0786-1 - CMPOrder Info: 3 - TSHOrder Info: 4 - FEROrder Info: 7 - T4F Performed By: #### L 501.9520, L503.6550, L506.0400, L100.0100, L500.4050 ####[facility] [address] [place], [address] Calcium [Mass/Vol] 9.9 mg/dL Normal 7.6-11.0 [facility] Comment on above: Order Comment: Order Date: 07/26/24Order Info: 0786-1 - CMPOrder Info: 3015-3 - TSHOrder Info: 4 - FEROrder Info: 3024-7 - T4F Performed By: #### L 501.9520, L503.6550, L506.0400, L100.0100, L500.4050 ####[facility] [address] [place], [address] Chloride [Moles/Vol] 96 mmol/L Low 98-108 [facility] Comment on above: Order Comment: Order Date: 07/26/24Order Info: 0786-1 - CMPOrder Info: 3016-3 - TSHOrder Info: 2276-4 - FEROrder Info: 3024-7 - T4F Performed By: #### L 501.9520, L503.6550, L506.0400, L100.0100, L500.4050 ####[facility] [address] [place], [address] CO2 [Moles/Vol] 24.1 mmol/L Normal 21.0-32.0 [facility] Comment on above: Order Comment: Order Date: 07/26/24Order Info: 0786-1 - CMPOrder Info: 6-3 - TSHOrder Info: 2276-4 - FEROrder Info: 3024-7 - T4F Performed By: #### L 501.9520, L503.6550, L506.0400, L100.0100, L500.4050 ####[facility] [address] [place], [address] Creatinine [Mass/Vol] 0.71 mg/dL Normal 0.70-1.20 [facility] Comment on above: Order Comment: Order Date: 07/26/24Order Info: 0786-1 - CMPOrder Info: 6-3 - TSHOrder Info: 2276-4 - FEROrder Info: 3024-7 - T4F Performed By: #### L 501.9520, L503.6550, L506.0400, L100.0100, L500.4050 ####[facility] [address] [place], [address] GAP 13 Normal 5-15 [facility] Comment on above: Order Comment: Order Date: 07/26/24Order Info: 0786-1 - CMPOrder Info: 6-3 - TSHOrder Info: 2276-4 - FEROrder Info: 3024-7 - T4F Performed By: #### L 501.9520, L503.6550, L506.0400, L100.0100, L500.4050 ####[facility] [address] [place], [address] GFR/1.73 sq M.predicted among non-blacks MDRD (S/P/Bld) [Vol rate/Area] 85 mL/min/{1.73_m2} Normal >60 [facility] Comment on above: Order Comment: Order Date: 07/26/24Order Info: 07-1 - CMPOrder Info: 3 - TSHOrder Info: 4 - FEROrder Info: 4-7 - T4F Result Comment: mL/m in/1.73m2 CKD-EPI Creatinine Equation (2020) Performed By: #### L 501.9520, L503.6550, L506.0400, L100.0100, L500.4050 ####[facility] [address] [place], [address] Globulin (S) [Mass/Vol] 3.0 g/dL Normal 2.2-4.2 [facility] Comment on above: Order Comment: Order Date: 07/26/24Order Info: 785-04 - CMPOrder Info: 3015-06 - TSHOrder Info: 4 - FEROrder Info: 3024-7 - T4F Performed By: #### L 501.9520, L503.6550, L506.0400, L100.0100, L500.4050 ####[facility] [address] [place], [address] Glucose [Mass/Vol] 101 mg/dL High 70-99 [facility] Comment on above: Order Comment: Order Date: 07/26/24Order Info: 07-1 - CMPOrder Info: 3 - TSHOrder Info: 4 - FEROrder Info: 3024-7 - T4F Performed By: #### L 501.9520, L503.6550, L506.0400, L100.0100, L500.4050 ####[facility] [address] [place], [address] Potassium [Moles/Vol] 3.4 mmol/L Normal 3.3-5.1 [facility] Comment on above: Order Comment: Order Date: 07/26/24Order Info: 0786-1 - CMPOrder Info: 6-3 - TSHOrder Info: 2276-4 - FEROrder Info: 3024-7 - T4F Performed By: #### L 501.9520, L503.6550, L506.0400, L100.0100, L500.4050 ####[facility] [address] [place], [address] Sodium [Moles/Vol] 133 mmol/L Normal 133-145 [facility] Comment on above: Order Comment: Order Date: 07/26/24Order Info: 0786-1 - CMPOrder Info: 6-3 - TSHOrder Info: 2274 - FEROrder Info: 3024-7 - T4F Performed By: #### L 501.9520, L503.6550, L506.0400, L100.0100, L500.4050 ####[facility] [address] [place], [address] T PROT 7.4 g/dL Normal 5.9-8.4 [facility] Comment on above: Order Comment: Order Date: 07/26/24Order Info: 0786-1 - CMPOrder Info: 3015-3 - TSHOrder Info: 2276-4 - FEROrder Info: 3024-7 - T4F Performed By: #### L 501.9520, L503.6550, L506.0400, L100.0100, L500.4050 ####[facility] [address] [place], [address] Urea nitrogen [Mass/Vol] 14 mg/dL Normal 4-19 [facility] Comment on above: Order Comment: Order Date: 07/26/24Order Info: 0786-1 - CMPOrder Info: 3016-3 - TSHOrder Info: 2276-4 - FEROrder Info: 3024-7 - T4F Performed By: #### L 501.9520, L503.6550, L506.0400, L100.0100, L500.4050 ####[facility] [address] [place], [place], [address] Eosinophil percentageOrdered By: Jose Hdz on 07-26-2024 Eosinophils/100 WBC (Bld) 1.4 % 0-5 [facility] Erythrocyte distribution wid th (RBC) [Ratio]Ordered By: Jose Hdz on 07-26-2024 Erythrocyte distribution width (RBC) [Entitic vol] 44.8 fL High 35.1-43.9 [facility] Erythrocyte distribution wid th ratioOrdered By: Jose Hdz on 07-26-2024 Erythrocyte distribution width (RBC) [Ratio] 13.8 % 11.6-14.6 [facility] Erythrocyte distribution wid th standard deviationOrdered By: Jose Hdz on 07-26-2024 Erythrocyte distribution width (RBC) [Ratio] 44.8 fl High 35.1-43.9 [facility] Ferritinon 07-26-2024 Ferritin [Mass/Vol] 38 ng/mL Normal 22-[address] [facility] Comment on above: Order Comment: Order Date: 07/26/24Order Info: 0786-1 - CMPOrder Info: 3016-3 - TSHOrder Info: 2276-4 - FEROrder Info: 3024-7 - T4F Performed By: #### L 501.9520, L503.6550, L506.0400, L100.0100, L500.4050 ####[facility] [address] [place], [place], [address] GFR/1.73 sq M.predicted toni g non-blacks MDRD (S/P/Bld) [Vol rate/Area]Ordered By: Jose Hdz on 07-26-2024 Estimated GFR (MDRD) Non-Af Amer 85 >60 [facility] Comment on above: mL/min/1.73m2 CKD-EP I Creatinine Equation (2020) Glomerular filtration rate ( GFR) estimation/1.73 sq m using serum, plasma, or whole bOrdered By: Jose Hdz on 07-26-2024 GFR/1.73 sq M.predicted among non-blacks MDRD (S/P/Bld) [Vol rate/Area] 85 mL/min/{1.73_m2} >60 [facility] Comment on above: mL/min/1.73m2 CKD-EP I Creatinine Equation (2020) Hematocrit Auto (Bld) [Volum e fraction]Ordered By: Jose Hdz on 07-26-2024 Hematocrit (Bld) [Volume fraction] 40.2 % 37-47 [facility] Hemoglobin measurementOrdere d By: Jose Hdz on 07-26-2024 Hemoglobin (Bld) [Mass/Vol] 12.6 g/dL 12.0-15.0 [facility] Immature granulocytes/100 WB C Auto (Bld)Ordered By: Jose Hdz on 07-26-2024 Immature granulocytes/100 WBC (Bld) 0.300 % 0.0-0.9 [facility] Comment on above: IG% - Immature Granu locytes (promyelocytes, myelocytes and metamyelocytes) > 1% indicates that a LEFT SHIFT is Present. Laboratory - Chemistry and C hemistry - challengeOrdered By: Jose Hdz on 07-26-2024 AST [Catalytic activity/Vol] 22 U/L <32 [facility] Lymphocytes Auto (Unsp spec) [#/Vol]Ordered By: Jose Hdz on 07-26-2024 Lymphocytes (Bld) [#/Vol] 1.04 10*3/uL 0.83-4.51 [facility] Lymphocytes/100 WBC Auto (Un sp spec)Ordered By: Jose Hdz on 07-26-2024 Lymphocytes/100 WBC (Bld) 16.0 % Low 19-41 [facility] MCV (mean corpuscular volume ) determinationOrdered By: Jose Hdz on 07-26-2024 MCV (RBC) [Entitic vol] 89.1 fL 81-99 [facility] Mean corpuscular hemoglobin (MCH) determinationOrdered By: Jose Hdz on 07-26-2024 MCH (RBC) [Entitic mass] 27.9 pg 27.0-32.0 [facility] Mean corpuscular hemoglobin concentration (MCHC) determinationOrdered By: Jose Hdz on 07-26-2024 MCHC (RBC) [Mass/Vol] 31.3 g/dL Low 32-36 [facility] Mean platelet volume determi nationOrdered By: Jose Hdz on 07-26-2024 Platelet mean volume (Bld) [Entitic vol] 10.5 fL 6.2-12.0 [facility] Monocyte percentageOrdered B y: Jose Hdz on 07-26-2024 Monocytes/100 WBC (Bld) 10.6 % High 0-10 [facility] Neutrophil percentageOrdered By: Jose Hdz on 07-26-2024 Neutrophils/100 WBC (Bld) 70.9 % High 47-70 [facility] Nucleated red blood cell per centageOrdered By: Jose Hdz on 07-26-2024 Nucleated RBC/100 WBC (Bld) [Ratio] 0 % 0-5 [facility] Platelet countOrdered By: Amol Hdz on 07-26-2024 Platelets (Bld) [#/Vol] 279 10*3/uL 150-450 [facility] Potassium (Unsp spec) [Mass/ Vol]Ordered By: Jose Hdz on 07-26-2024 Potassium [Moles/Vol] 3.4 mmol/L 3.3-5.1 [facility] Potassium measurement (mass/ volume)Ordered By: Jose Hdz on 07-26-2024 Potassium (Unsp spec) [Mass/Vol] 3.4 mmol/L 3.3-5.1 [facility] RBC Auto (Bld) [#/Vol]Ordere d By: Jose Hdz on 07-26-2024 RBC (Bld) [#/Vol] 4.51 10*6/uL 4.2-5.[address] [facility] Serum creatinine measurement (mass/volume)Ordered By: Jose Hdz on 07-26-2024 Creatinine [Mass/Vol] 0.71 mg/dL 0.70-1.20 [facility] Serum globulin measurementOr dered By: Jose Hdz on 07-26-2024 Globulin (S) [Mass/Vol] 3.0 g/dL 2.2-4.2 [facility] Serum glucose measurement (m ass/volume)Ordered By: Jose Hdz on 07-26-2024 Glucose [Mass/Vol] 101 mg/dL High 70-99 [facility] Serum or plasma alanine [place] otransferase (ALT) measurementOrdered By: Jose Hdz on 07-26-2024 ALT [Catalytic activity/Vol] 14 U/L <35 [facility] Serum or plasma albumin july urement (mass/volume)Ordered By: Jose Hdz on 07-26-2024 Albumin [Mass/Vol] 4.4 g/dL 3.4-4.8 [facility] Serum or plasma albumin/glob ulin mass ratioOrdered By: Jose Hdz on 07-26-2024 Albumin/Globulin [Mass ratio] 1.4 {ratio} 0.9-2.4 [facility] Serum or plasma alkaline kaela sphatase measurementOrdered By: Jose Hdz on 07-26-2024 ALP [Catalytic activity/Vol] 89 U/L 35-104 [facility] Serum or plasma calcium july urement (mass/volume)Ordered By: Jose Hdz on 07-26-2024 Calcium [Mass/Vol] 9.9 mg/dL 7.6-11.0 [facility] Serum or plasma ferritin laura surement (mass/volume)Ordered By: Jose Hdz on 07-26-2024 Ferritin [Mass/Vol] 38 ng/mL 22-[address] [facility] Serum or plasma urea nitroge n measurement (mass/volume)Ordered By: Jose Hdz on 07-26-2024 Urea nitrogen [Mass/Vol] 14 mg/dL 4-19 [facility] Sodium levelOrdered By: Jose Hdz on 07-26-2024 Sodium [Moles/Vol] 133 mmol/L 133-145 [facility] T4 Free Directon 07-26-2024 T4 FREE DIRECT 1.30 ng/dL Normal 0.76-1.46 [facility] Comment on above: Order Comment: Order Date: 07/26/24Order Info: 0786-1 - CMPOrder Info: 3016-3 - TSHOrder Info: 2276-4 - FEROrder Info: 3024-7 - T4F Performed By: #### L 501.9520, L503.6550, L506.0400, L100.0100, L500.4050 ####[facility] [address] [place], [address] T4 freeOrdered By: Jose payton on 07-26-2024 Free T4 [Mass/Vol] 1.30 ng/dL 0.76-1.46 [facility] TSH DL <= 0.005 mIU/L QnOrde red By: Jose Hdz on 07-26-2024 Thyroid Stimulating Hormone (TSH) 1.030 uIU/mL 0.300-4.200 [facility] TSH Qn 1.030 uIU/mL 0.300-4.200 [facility] Thyroid Stim Hormone (TSH)on 07-26-2024 TSH 1.030 uIU/mL Normal 0.300-4.200 [facility] Comment on above: Order Comment: Order Date: 07/26/24Order Info: 0786-1 - CMPOrder Info: 3016-3 - TSHOrder Info: 2276-4 - FEROrder Info: 3024-7 - T4F Performed By: #### L 501.9520, L503.6550, L506.0400, L100.0100, L500.4050 ####[facility] [address] [place], [address] Total proteinOrdered By: Lluvia Hdz on 07-26-2024 Protein [Mass/Vol] 7.4 g/dL 5.9-8.4 [facility] White blood cell (WBC) count Ordered By: Jose Hdz on 07-26-2024 WBC (Bld) [#/Vol] 6.5 10*3/uL 4.4-11.0 [facility] Basic Metabolic Profile (BMP )on 07-19-2024 BUN Normal 4-19 [facility] Comment on above: Result Comment: Jaquelin amaya via OM: Ordered Performed By: #### L 100.0500, L500.2500 ####[facility] [address] [place], [address] BUN/CRE Normal 10-20 [facility] Comment on above: Result Comment: Canc elled via OM: MD Ordered Performed By: #### L 100.0500, L500.2500 ####[facility] [address] [place], [address] Calcium Normal 7.6-11.0 [facility] Comment on above: Result Comment: Canc elled via OM: MD Ordered Performed By: #### L 100.0500, L500.2500 ####[facility] [address] [place], [address] CL Normal 98-108 [facility] Comment on above: Result Comment: Canc elled via OM: MD Ordered Performed By: #### L 100.0500, L500.2500 ####[facility] [address] [place], [address] CO2 Normal 21.0-32.0 [facility] Comment on above: Result Comment: Canc elled via OM: MD Ordered Performed By: #### L 100.0500, L500.2500 ####[facility] [address] [place], [address] CREAT,SERUM Normal 0.70-1.20 [facility] Comment on above: Result Comment: Canc elled via OM: MD Ordered Performed By: #### L 100.0500, L500.2500 ####[facility] [address] [place], [address] eGFR Normal >60 [facility] Comment on above: Result Comment: Canc elled via OM: MD Ordered Performed By: #### L 100.0500, L500.2500 ####[facility] [address] [place], [address] GAP Normal 5-15 [facility] Comment on above: Result Comment: Canc elled via OM: MD Ordered Performed By: #### L 100.0500, L500.2500 ####[facility] [address] [place], [address] GLU Normal 70-99 [facility] Comment on above: Result Comment: Canc elled via OM: MD Ordered Performed By: #### L 100.0500, L500.2500 ####[facility] [address] [place], [address] Potassium Normal 3.3-5.1 [facility] Comment on above: Result Comment: Canc elled via OM: MD Ordered Performed By: #### L 100.0500, L500.2500 ####[facility] [address] [place], [address] Basic Metabolic Profile (BMP) Normal 133-145 [facility] Comment on above: Result Comment: Canc elled via OM: MD Ordered Performed By: #### L 100.0500, L500.2500 ####[facility] [address] [place], [address] CBC-Complete Blood Cnt No Di ffon 07-19-2024 HCT Normal 37-47 [facility] Comment on above: Result Comment: Canc elled via OM: MD Ordered Performed By: #### L 100.0500, L500.2500 ####[facility] [address] [place], [address] HGB Normal 12.0-15.0 [facility] Comment on above: Result Comment: Canc elled via OM: MD Ordered Performed By: #### L 100.0500, L500.2500 ####[facility] [address] [place], [address] MCH Normal 27.0-32.0 [facility] Comment on above: Result Comment: Canc elled via OM: MD Ordered Performed By: #### L 100.0500, L500.2500 ####[facility] [address] [place], [address] MCHC Normal 32-36 [facility] Comment on above: Result Comment: Canc elled via OM: MD Ordered Performed By: #### L 100.0500, L500.2500 ####[facility] [address] [place], [address] MCV Normal 81-99 [facility] Comment on above: Result Comment: Canc elled via OM: MD Ordered Performed By: #### L 100.0500, L500.2500 ####[facility] [address] [place], [address] PLT Normal 150-450 [facility] Comment on above: Result Comment: Canc elled via OM: MD Ordered Performed By: #### L 100.0500, L500.2500 ####[facility] [address] [place], [address] RBC Normal 4.2-5.4 [facility] Comment on above: Result Comment: Canc elled via OM: MD Ordered Performed By: #### L 100.0500, L500.2500 ####[facility] [address] [place], [address] RDW CV Normal 11.6-14.6 [facility] Comment on above: Result Comment: Canc elled via OM: MD Ordered Performed By: #### L 100.0500, L500.2500 ####[facility] [address] [place], [address] RDW SD Normal 35.1-43.9 [facility] Comment on above: Result Comment: Canc elled via OM: MD Ordered Performed By: #### L 100.0500, L500.2500 ####[facility] [address] [place], [address] WBC Normal 4.4-11.0 [facility] Comment on above: Result Comment: Canc elled via OM: MD Ordered Performed By: #### L 100.0500, L500.2500 ####[facility] [address] [place], [address] Basic Metabolic Profile (BMP )on 07-18-2024 BUN Normal 4-19 [facility] Comment on above: Result Comment: Canc elled via OM: MD Ordered Performed By: #### L 500.2500 ####[facility] [address] [place], [address] BUN/CRE Normal 10-20 [facility] Comment on above: Result Comment: Canc elled via OM: MD Ordered Performed By: #### L 500.2500 ####[facility] [address] [place], [address] Calcium Normal 7.6-11.0 [facility] Comment on above: Result Comment: Canc elled via OM: MD Ordered Performed By: #### L 500.2500 ####[facility] [address] [place], [address] CL Normal 98-108 [facility] Comment on above: Result Comment: Canc elled via OM: MD Ordered Performed By: #### L 500.2500 ####[facility] [address] [place], [address] CO2 Normal 21.0-32.0 [facility] Comment on above: Result Comment: Canc elled via OM: MD Ordered Performed By: #### L 500.2500 ####[facility] [address] [place], [address] CREAT,SERUM Normal 0.70-1.20 [facility] Comment on above: Result Comment: Canc elled via OM: MD Ordered Performed By: #### L 500.2500 ####[facility] [address] [place], [address] eGFR Normal >60 [facility] Comment on above: Result Comment: Canc elled via OM: MD Ordered Performed By: #### L 500.2500 ####[facility] [address] [place], [address] GAP Normal 5-15 [facility] Comment on above: Result Comment: Canc elled via OM: MD Ordered Performed By: #### L 500.2500 ####[facility] [address] [place], [address] GLU Normal 70-99 [facility] Comment on above: Result Comment: Canc elled via OM: MD Ordered Performed By: #### L 500.2500 ####[facility] [address] [place], [address] Potassium Normal 3.3-5.1 [facility] Comment on above: Result Comment: Canc elled via OM: MD Ordered Performed By: #### L 500.2500 ####[facility] [address] [place], [address] Basic Metabolic Profile (BMP) Normal 133-145 [facility] Comment on above: Result Comment: Canc elled via OM: MD Ordered Performed By: #### L 500.2500 ####[facility] [address] [place], [address] Anion gap in Serum or Plasma Ordered By: Brodie Swartz on 07-17-2024 Anion gap [Moles/Vol] 12 mmol/L - [facility] BUN/creatinine ratioOrdered By: Brodie Swartz on 07-17-2024 Urea nitrogen/Creatinine [Mass ratio] 14.8 mg/mg - [facility] Basic Metabolic Profile (BMP )on 07-17-2024 BUN/CRE 14.8 RATIO Normal - [facility] Comment on above: Performed By: #### L 500.2500 ####[facility] [address] [place], [address] Calcium [Mass/Vol] 9.6 mg/dL Normal 7.6-11.0 [facility] Comment on above: Performed By: #### L 500.2500 ####[facility] [address] [place], [address] Chloride [Moles/Vol] 101 mmol/L Normal 98-108 [facility] Comment on above: Performed By: #### L 500.2500 ####[facility] [address] [place], [address] CO2 [Moles/Vol] 21.0 mmol/L Normal 21.0-32.0 [facility] Comment on above: Performed By: #### L 500.2500 ####[facility] [address] [place], [address] Creatinine [Mass/Vol] 0.68 mg/dL Low 0.70-1.20 [facility] Comment on above: Performed By: #### L 500.2500 ####[facility] [address] [place], [address] ECRCL 43.30 ml/min Low 50-250 [facility] Comment on above: Performed By: #### L 500.2500 ####[facility] [address] [place], [address] GAP 12 Normal 5-15 [facility] Comment on above: Performed By: #### L 500.2500 ####[facility] [address] [place], [address] GFR/1.73 sq M.predicted among non-blacks MDRD (S/P/Bld) [Vol rate/Area] 86 mL/min/{1.73_m2} Normal >60 [facility] Comment on above: Result Comment: mL/m in/1.73m2 CKD-EPI Creatinine Equation (2020) Performed By: #### L 500.2500 ####[facility] [address] [place], [address] Glucose [Mass/Vol] 93 mg/dL Normal 70-99 [facility] Comment on above: Performed By: #### L 500.2500 ####[facility] [address] [place], [address] Potassium [Moles/Vol] 4.0 mmol/L Normal 3.3-5.1 [facility] Comment on above: Performed By: #### L 500.2500 ####[facility] [address] [place], [address] Sodium [Moles/Vol] 134 mmol/L Normal 133-145 [facility] Comment on above: Performed By: #### L 500.2500 ####[facility] [address] [place], [address] Urea nitrogen [Mass/Vol] 10 mg/dL Normal 4-19 [facility] Comment on above: Performed By: #### L 500.2500 ####[facility] [address] [place], [address] CBC-Complete Blood Cnt No Di on 07-17-2024 Erythrocyte distribution width (RBC) [Ratio] 13.4 % Normal 11.6-14.6 [facility] Comment on above: Performed By: #### L 100.0500 ####[facility] [address] [place], [address] Hematocrit (Bld) [Volume fraction] 38.6 % Normal 37-47 [facility] Comment on above: Performed By: #### L 100.0500 ####[facility] [address] [place], [address] Hemoglobin (Bld) [Mass/Vol] 12.7 g/dL Normal 12.0-15.0 [facility] Comment on above: Performed By: #### L 100.0500 ####[facility] [address] [place], [address] MCH (RBC) [Entitic mass] 28.2 pg Normal 27.0-32.0 [facility] Comment on above: Performed By: #### L 100.0500 ####[facility] [address] [place], [address] MCHC (RBC) [Mass/Vol] 32.9 g/dL Normal 32-36 [facility] Comment on above: Performed By: #### L 100.0500 ####[facility] [address] [place], [address] MCV (RBC) [Entitic vol] 85.8 fL Normal 81-99 [facility] Comment on above: Performed By: #### L 100.0500 ####[facility] [address] [place], [address] Platelet mean volume (Bld) [Entitic vol] 10.2 fL Normal 6.2-12.0 [facility] Comment on above: Performed By: #### L 100.0500 ####[facility] [address] [place], [address] Platelets (Bld) [#/Vol] 243 10*3/uL Normal 150-450 [facility] Comment on above: Performed By: #### L 100.0500 ####[facility] [address] [place], [address] RBC (Bld) [#/Vol] 4.50 10*6/uL Normal 4.2-5.[address] [facility] Comment on above: Performed By: #### L 100.0500 ####[facility] [address] [place], [address] RDW SD 41.6 fl Normal 35.1-43.9 [facility] Comment on above: Performed By: #### L 100.0500 ####[facility] [address] [place], [address] WBC (Bld) [#/Vol] 6.0 10*3/uL Normal 4.4-11.0 [facility] Comment on above: Performed By: #### L 100.0500 ####[facility] [address] [place], [address] Carbon dioxide, total [Moles /volume] in Central venous bloodOrdered By: Brodie Swartz on 07-17-2024 CO2 [Moles/Vol] 21.0 mmol/L 21.0-32.0 [facility] Chloride assayOrdered By: Ayaan Swartz on 07-17-2024 Chloride [Moles/Vol] 101 mmol/L 98-108 [facility] Discharge Instructionon 04-0 Discharge Instruction Normal [facility] Erythrocyte distribution wid th ratioOrdered By: Brodie Swartz on 07-17-2024 Erythrocyte distribution width (RBC) [Ratio] 13.4 % 11.6-14.6 [facility] Erythrocyte distribution wid th standard deviationOrdered By: Brodie Swartz on 07-17-2024 Erythrocyte distribution width (RBC) [Entitic vol] 41.6 fL 35.1-43.9 [facility] Erythrocyte distribution width (RBC) [Ratio] 41.6 fl 35.1-43.9 [facility] Estimation of creatinine kalee aranceOrdered By: Brodie Swartz on 07-17-2024 Estimated Creatinine Clearance Calc 43.30 ml/min Low 50-250 [facility] GFR/1.73 sq M.predicted toni g non-blacks MDRD (S/P/Bld) [Vol rate/Area]Ordered By: Brodie Swartz on 07-17-2024 Estimated GFR (MDRD) Non-Af Amer 86 >60 [facility] Comment on above: mL/min/1.73m2 CKD-EP I Creatinine Equation (2020) Glomerular filtration rate ( GFR) estimation/1.73 sq m using serum, plasma, or whole bOrdered By: Brodie Swartz on 07-17-2024 GFR/1.73 sq M.predicted among non-blacks MDRD (S/P/Bld) [Vol rate/Area] 86 mL/min/{1.73_m2} >60 [facility] Comment on above: mL/min/1.73m2 CKD-EP I Creatinine Equation (2020) Hematocrit Auto (Bld) [Volum e fraction]Ordered By: Brodie Swartz on 07-17-2024 Hematocrit (Bld) [Volume fraction] 38.6 % 37-47 [facility] Hemoglobin measurementOrdere d By: Brodie Swartz on 07-17-2024 Hemoglobin (Bld) [Mass/Vol] 12.7 g/dL 12.0-15.0 [facility] MCV (mean corpuscular volume ) determinationOrdered By: Brodie Swartz on 07-17-2024 MCV (RBC) [Entitic vol] 85.8 fL 81-99 [facility] Mean corpuscular hemoglobin (MCH) determinationOrdered By: Brodie Swartz on 07-17-2024 MCH (RBC) [Entitic mass] 28.2 pg 27.0-32.0 [facility] Mean corpuscular hemoglobin concentration (MCHC) determinationOrdered By: Brodie Swartz on 07-17-2024 MCHC (RBC) [Mass/Vol] 32.9 g/dL 32-36 [facility] Mean platelet volume determi nationOrdered By: Brodie Swartz on 07-17-2024 Platelet mean volume (Bld) [Entitic vol] 10.2 fL 6.2-12.0 [facility] Platelet countOrdered By: Ayaan Swartz on 07-17-2024 Platelets (Bld) [#/Vol] 243 10*3/uL 150-450 [facility] Potassium (Unsp spec) [Mass/ Vol]Ordered By: Brodie Swartz on 07-17-2024 Potassium [Moles/Vol] 4.0 mmol/L 3.3-5.1 [facility] Potassium measurement (mass/ volume)Ordered By: Brodie Swartz on 07-17-2024 Potassium (Unsp spec) [Mass/Vol] 4.0 mmol/L 3.3-5.1 [facility] RBC Auto (Bld) [#/Vol]Ordere d By: Brodie Swartz on 07-17-2024 RBC (Bld) [#/Vol] 4.50 10*6/uL 4.2-5.[address] [facility] Serum creatinine measurement (mass/volume)Ordered By: Brodie Swartz on 07-17-2024 Creatinine [Mass/Vol] 0.68 mg/dL Low 0.70-1.20 [facility] Serum glucose measurement (m ass/volume)Ordered By: Brodie Swartz on 07-17-2024 Glucose [Mass/Vol] 93 mg/dL 70-99 [facility] Serum or plasma calcium july urement (mass/volume)Ordered By: Brodie Swartz on 07-17-2024 Calcium [Mass/Vol] 9.6 mg/dL 7.6-11.0 [facility] Serum or plasma urea nitroge n measurement (mass/volume)Ordered By: Brodie Swartz on 07-17-2024 Urea nitrogen [Mass/Vol] 10 mg/dL 4-19 [facility] Sodium levelOrdered By: Charles Swartz on 07-17-2024 Sodium [Moles/Vol] 134 mmol/L 133-145 [facility] White blood cell (WBC) count Ordered By: Brodie Swartz on 07-17-2024 WBC (Bld) [#/Vol] 6.0 10*3/uL 4.4-11.0 [facility] Absolute lymphocyte countOrd ered By: Leonora Mojica on 07-16-2024 Lymphocytes Auto (Unsp spec) [#/Vol] 1.03 10*3/uL 0.83-4.51 [facility] Absolute neutrophil countOrd ered By: Leonora Mojica on 07-16-2024 Neutrophils (Bld) [#/Vol] 3.4 10*3/uL 2.0-7.7 [facility] Automated lymphocyte count a s percentage of total leukocytesOrdered By: Leonora Mojica on 07-16-2024 Lymphocytes/100 WBC Auto (Unsp spec) 20.3 % 19-41 [facility] Basic Metabolic Profile (BMP )on 07-16-2024 BUN/CRE 21.1 RATIO High 10-20 [facility] Comment on above: Performed By: #### L 500.2500, L100.0100, L300.3900 ####[facility] [address] [place], [place], [address] Calcium [Mass/Vol] 9.3 mg/dL Normal 7.6-11.0 [facility] Comment on above: Performed By: #### L 500.2500, L100.0100, L300.3900 ####[facility] [address] [place], [address] Chloride [Moles/Vol] 103 mmol/L Normal 98-108 [facility] Comment on above: Performed By: #### L 500.2500, L100.0100, L300.3900 ####[facility] [address] [place], [address] CO2 [Moles/Vol] 19.5 mmol/L Low 21.0-32.0 [facility] Comment on above: Performed By: #### L 500.2500, L100.0100, L300.3900 ####[facility] [address] [place], [address] Creatinine [Mass/Vol] 0.60 mg/dL Low 0.70-1.20 [facility] Comment on above: Performed By: #### L 500.2500, L100.0100, L300.3900 ####[facility] [address] [place], [address] ECRCL 43.30 ml/min Low 50-250 [facility] Comment on above: Performed By: #### L 500.2500, L100.0100, L300.3900 ####[facility] [address] [place], [address] GAP 12 Normal 5-15 [facility] Comment on above: Performed By: #### L 500.2500, L100.0100, L300.3900 ####[facility] [address] [place], [address] GFR/1.73 sq M.predicted among non-blacks MDRD (S/P/Bld) [Vol rate/Area] 89 mL/min/{1.73_m2} Normal >60 [facility] Comment on above: Result Comment: mL/m in/1.73m2 CKD-EPI Creatinine Equation (2020) Performed By: #### L 500.2500, L100.0100, L300.3900 ####[facility] [address] [place], [address] Glucose [Mass/Vol] 97 mg/dL Normal 70-99 [facility] Comment on above: Performed By: #### L 500.2500, L100.0100, L300.3900 ####[facility] [address] [place], [address] Potassium [Moles/Vol] 3.9 mmol/L Normal 3.3-5.1 [facility] Comment on above: Performed By: #### L 500.2500, L100.0100, L300.3900 ####[facility] [address] [place], [address] Sodium [Moles/Vol] 134 mmol/L Normal 133-145 [facility] Comment on above: Performed By: #### L 500.2500, L100.0100, L300.3900 ####[facility] [address] [place], [address] Urea nitrogen [Mass/Vol] 13 mg/dL Normal 4-19 [facility] Comment on above: Performed By: #### L 500.2500, L100.0100, L300.3900 ####[facility] [address] [place], [address] Basophil percentageOrdered B y: Leonorajames Mojica on 07-16-2024 Basophils/100 WBC (Bld) 1.2 % High 0-1 [facility] CBC W/Diff, Automatedon 03-3 Absolute Lymph 1.03 X10 3/uL Normal 0.83-4.51 [facility] Comment on above: Performed By: #### L 500.2500, L100.0100, L300.3900 ####[facility] [address] [place], [address] Absolute Neut 3.4 X10 3/uL Normal 2.0-7.7 [facility] Comment on above: Performed By: #### L 500.2500, L100.0100, L300.3900 ####[facility] [address] [place], [address] Basophils/100 WBC (Bld) 1.2 % High 0-1 [facility] Comment on above: Performed By: #### L 500.2500, L100.0100, L300.3900 ####[facility] [address] [place], [address] Eosinophils/100 WBC (Bld) 2.4 % Normal 0-5 [facility] Comment on above: Performed By: #### L 500.2500, L100.0100, L300.3900 ####[facility] [address] [place], [address] Erythrocyte distribution width (RBC) [Ratio] 13.4 % Normal 11.6-14.6 [facility] Comment on above: Performed By: #### L 500.2500, L100.0100, L300.3900 ####[facility] [address] [place], [address] Hematocrit (Bld) [Volume fraction] 36.0 % Low 37-47 [facility] Comment on above: Performed By: #### L 500.2500, L100.0100, L300.3900 ####[facility] [address] [place], [address] Hemoglobin (Bld) [Mass/Vol] 11.9 g/dL Low 12.0-15.0 [facility] Comment on above: Performed By: #### L 500.2500, L100.0100, L300.3900 ####[facility] [address] [place], [address] IG% 0.200 Normal 0.0-0.9 [facility] Comment on above: Result Comment: IG% - Immature Granulocytes (promyelocytes, myelocytes andmetamyelocytes) > 1% indicates that a LEFT SHIFT is Present. Performed By: #### L 500.2500, L100.0100, L300.3900 ####[facility] [address] [place], [address] Lymphocytes/100 WBC (Bld) 20.3 % Normal 19-41 [facility] Comment on above: Performed By: #### L 500.2500, L100.0100, L300.3900 ####[facility] [address] [place], [address] MCH (RBC) [Entitic mass] 28.3 pg Normal 27.0-32.0 [facility] Comment on above: Performed By: #### L 500.2500, L100.0100, L300.3900 ####[facility] [address] [place], [address] MCHC (RBC) [Mass/Vol] 33.1 g/dL Normal 32-36 [facility] Comment on above: Performed By: #### L 500.2500, L100.0100, L300.3900 ####[facility] [address] [place], [address] MCV (RBC) [Entitic vol] 85.7 fL Normal 81-99 [facility] Comment on above: Performed By: #### L 500.2500, L100.0100, L300.3900 ####[facility] [address] [place], [address] Monocytes/100 WBC (Bld) 10.0 % Normal 0-10 [facility] Comment on above: Performed By: #### L 500.2500, L100.0100, L300.3900 ####[facility] [address] [place], [address] Neutrophils/100 WBC (Bld) 65.9 % Normal 47-70 [facility] Comment on above: Performed By: #### L 500.2500, L100.0100, L300.3900 ####[facility] [address] [place], [address] Nucleated RBC (Bld) [#/Vol] 0 10*3/uL Normal 0-5 [facility] Comment on above: Performed By: #### L 500.2500, L100.0100, L300.3900 ####[facility] [address] [place], [address] Platelet mean volume (Bld) [Entitic vol] 9.7 fL Normal 6.2-12.0 [facility] Comment on above: Performed By: #### L 500.2500, L100.0100, L300.3900 ####[facility] [address] [place], [address] Platelets (Bld) [#/Vol] 213 10*3/uL Normal 150-450 [facility] Comment on above: Performed By: #### L 500.2500, L100.0100, L300.3900 ####[facility] [address] [place], [address] RBC (Bld) [#/Vol] 4.20 10*6/uL Normal 4.2-5.[address] [facility] Comment on above: Performed By: #### L 500.2500, L100.0100, L300.3900 ####[facility] [address] [place], [address] RDW SD 41.8 fl Normal 35.1-43.9 [facility] Comment on above: Performed By: #### L 500.2500, L100.0100, L300.3900 ####[facility] [address] [place], [address] WBC (Bld) [#/Vol] 5.1 10*3/uL Normal 4.4-11.0 [facility] Comment on above: Performed By: #### L 500.2500, L100.0100, L300.3900 ####[facility] [address] [place], [address] CBC-Complete Blood Cnt No Angélica chengon 07-16-2024 Erythrocyte distribution width (RBC) [Ratio] 13.3 % Normal 11.6-14.6 [facility] Comment on above: Performed By: #### L 100.0500 ####[facility] [address] [place], [address] Hematocrit (Bld) [Volume fraction] 38.6 % Normal 37-47 [facility] Comment on above: Performed By: #### L 100.0500 ####[facility] [address] [place], [address] Hemoglobin (Bld) [Mass/Vol] 12.5 g/dL Normal 12.0-15.0 [facility] Comment on above: Performed By: #### L 100.0500 ####[facility] [address] [place], [address] MCH (RBC) [Entitic mass] 28.1 pg Normal 27.0-32.0 [facility] Comment on above: Performed By: #### L 100.0500 ####[facility] [address] [place], [address] MCHC (RBC) [Mass/Vol] 32.4 g/dL Normal 32-36 [facility] Comment on above: Performed By: #### L 100.0500 ####[facility] [address] [place], [address] MCV (RBC) [Entitic vol] 86.7 fL Normal 81-99 [facility] [facility] Comment on above: Performed By: #### L 100.0500 ####[facility] [address] [place], [address] Platelet mean volume (Bld) [Entitic vol] 9.6 fL Normal 6.2-12.0 [facility] Comment on above: Performed By: #### L 100.0500 ####[facility] [address] [place], [address] Platelets (Bld) [#/Vol] 231 10*3/uL Normal 150-450 [facility] Comment on above: Performed By: #### L 100.0500 ####[facility] [address] [place], [address] RBC (Bld) [#/Vol] 4.45 10*6/uL Normal 4.2-5.[address] [facility] Comment on above: Performed By: #### L 100.0500 ####[facility] [address] [place], [address] RDW SD 42.3 fl Normal 35.1-43.9 [facility] Comment on above: Performed By: #### L 100.0500 ####[facility] [address] [place], [address] WBC (Bld) [#/Vol] 6.6 10*3/uL Normal 4.4-11.0 [facility] Comment on above: Performed By: #### L 100.0500 ####[facility] [address] [place], [address] Eosinophil percentageOrdered By: Leonora Mojica on 07-16-2024 Eosinophils/100 WBC (Bld) 2.4 % 0-5 [facility] HH, Hemoglobin AND Hematocri ton 07-16-2024 HCT Normal 37-47 [facility] Comment on above: Result Comment: Jaquelin amaya via OM: Ordered Performed By: #### L 100.0600 ####[facility] [address] [place], [address] HGB Normal 12.0-15.0 [facility] Comment on above: Result Comment: Candanette elled via OM: Ordered Performed By: #### L 100.0600 ####[facility] [address] [place], [address] Hematocrit (Bld) [Volume fraction] 34.6 % Low 37-47 [facility] Comment on above: Performed By: #### L 100.0600 ####[facility] [address] [place], [address] Hemoglobin (Bld) [Mass/Vol] 11.4 g/dL Low 12.0-15.0 [facility] Comment on above: Performed By: #### L 100.0600 ####[facility] [address] [place], [address] Immature granulocytes/100 WB C Auto (Bld)Ordered By: Leonora Mojica on 07-16-2024 Immature granulocytes/100 WBC (Bld) 0.200 % 0.0-0.9 [facility] Comment on above: IG% - Immature Granu locytes (promyelocytes, myelocytes and metamyelocytes) > 1% indicates that a LEFT SHIFT is Present. International normalized rat io (INR) calculationOrdered By: Leonora Mojica on 07-16-2024 INR Coag (Bld) [Relative time] 1.1 {INR} [facility] Lymphocytes Auto (Unsp spec) [#/Vol]Ordered By: Leonora Mojica on 07-16-2024 Lymphocytes (Bld) [#/Vol] 1.03 10*3/uL 0.83-4.51 [facility] Lymphocytes/100 WBC Auto (Un sp spec)Ordered By: Leonora Mojica on 07-16-2024 Lymphocytes/100 WBC (Bld) 20.3 % 19-41 [facility] MR/CON.PCM.GIon 07-16-2024 MR/CON.PCM.GI Normal [facility] Monocyte percentageOrdered B y: Leonora Mojica on 07-16-2024 Monocytes/100 WBC (Bld) 10.0 % 0-10 [facility] Neutrophil percentageOrdered By: Leonora Mojica on 07-16-2024 Neutrophils/100 WBC (Bld) 65.9 % 47-70 [facility] Nucleated red blood cell per centageOrdered By: Leonora Mojica on 07-16-2024 Nucleated RBC/100 WBC (Bld) [Ratio] 0 % 0-5 [facility] Prothrombin Time w/INRon INR Coag (PPP) [Relative time] 1.1 {INR} Normal [facility] Comment on above: Performed By: #### L 500.2500, L100.0100, L300.3900 ####[facility] [address] [place], [address] PT Coag (PPP) [Time] 13.9 s Normal 11.7-14.9 [facility] Comment on above: Performed By: #### L 500.2500, L100.0100, L300.3900 ####[facility] [address] [place], [address] Prothrombin timeOrdered By: Leonora Mojica on 07-16-2024 PT Coag (PPP) [Time] 13.9 s 11.7-14.9 [facility] Absolute neutrophil countOrd ered By: Ta Soto on 07-15-2024 Neutrophils (Bld) [#/Vol] 5.3 10*3/uL 2.0-7.7 [facility] Activated partial thrombopla stin time (aPTT) in platelet poor plasma by coagulation aOrdered By: Ta Soto on 07-15-2024 aPTT Coag (PPP) [Time] 32.6 s 24.1-36.2 [facility] Anion gap in Serum or Plasma Ordered By: Ta Soto on 07-15-2024 Anion gap [Moles/Vol] 13 mmol/L 5-15 [facility] Antigen E Gammacloneon 07-15 ANTIGEN ID Negative Normal [facility] Comment on above: Order Comment: HGI Performed By: #### B AGE, N94248-0, L300.3900, L300.4310, BTS, BRC, [id number] ####[facility] [address] [place], [address] [id number] 07-15-2024 DIRECT LADI Abnormal NEGATIVE [facility] Comment on above: Order Comment: HGI Result Comment: POS w/POLYSPECIFICPOS w/IgGNEG w/COMPLEMENT Performed By: #### B AGE, G01696-2, L300.3900, L300.4310, BTS, BRC, [id number] ####[facility] [address] [place], [address] [id number] 07-15-2024 ANTIBODY ID E Normal [facility] Comment on above: Order Comment: HGI Performed By: #### B AGE, D46481-1, L300.3900, L300.4310, BTS, BRC, [id number] ####[facility] [address] [place], [address] BRCon 07-15-2024 RC Normal [facility] Comment on above: Result Comment: [id number] OP RC XM [id number] OP RC XM COMPATIBLE Performed By: #### B AGE, C46447-3, L300.3900, L300.4310, BTS, BRC, [id number] ####[facility] [address] [place], [address] BUN/creatinine ratioOrdered By: Ta Soto on 07-15-2024 Urea nitrogen/Creatinine [Mass ratio] 19.0 mg/mg 10- [facility] Basic Metabolic Profile (BMP )on 07-15-2024 BUN/CRE 19.0 RATIO Normal 02-04 [facility] Comment on above: Performed By: #### L 100.0100, L500.2500 ####[facility] [address] [place], [address] Calcium [Mass/Vol] 10.1 mg/dL Normal 7.6-11.0 [facility] Comment on above: Performed By: #### L 100.0100, L500.2500 ####[facility] [address] [place], [address] Chloride [Moles/Vol] 97 mmol/L Low 98-108 [facility] Comment on above: Performed By: #### L 100.0100, L500.2500 ####[facility] [address] [place], [address] CO2 [Moles/Vol] 23.8 mmol/L Normal 21.0-32.0 [facility] Comment on above: Performed By: #### L 100.0100, L500.2500 ####[facility] [address] [place], [address] Creatinine [Mass/Vol] 0.75 mg/dL Normal 0.70-1.20 [facility] Comment on above: Performed By: #### L 100.0100, L500.2500 ####[facility] [address] [place], [address] ECRCL 43.30 ml/min Low 50-250 [facility] Comment on above: Performed By: #### L 100.0100, L500.2500 ####[facility] [address] [place], [address] GAP 13 Normal 5-15 [facility] Comment on above: Performed By: #### L 100.0100, L500.2500 ####[facility] [address] [place], [address] GFR/1.73 sq M.predicted among non-blacks MDRD (S/P/Bld) [Vol rate/Area] 78 mL/min/{1.73_m2} Normal >60 [facility] Comment on above: Result Comment: mL/m in/1.73m2 CKD-EPI Creatinine Equation (2020) Performed By: #### L 100.0100, L500.2500 ####[facility] [address] [place], [address] Glucose [Mass/Vol] 136 mg/dL High 70-99 [facility] Comment on above: Performed By: #### L 100.0100, L500.2500 ####[facility] [address] [place], [address] Potassium [Moles/Vol] 4.0 mmol/L Normal 3.3-5.1 [facility] Comment on above: Performed By: #### L 100.0100, L500.2500 ####[facility] [address] [place], [address] Sodium [Moles/Vol] 133 mmol/L Normal 133-145 [facility] Comment on above: Performed By: #### L 100.0100, L500.2500 ####[facility] [address] [place], [address] Urea nitrogen [Mass/Vol] 14 mg/dL Normal 4-19 [facility] Comment on above: Performed By: #### L 100.0100, L500.2500 ####[facility] [address] [place], [address] Basophil percentageOrdered B y: Ta Brittany on 07-15-2024 Basophils/100 WBC (Bld) 0.8 % 0-1 [facility] CBC W/Diff, Automatedon 06-18 Absolute Lymph 1.44 X10 3/uL Normal 0.83-4.51 [facility] Comment on above: Performed By: #### L 100.0100, L500.2500 ####[facility] [address] [place], [address] Absolute Neut 5.3 X10 3/uL Normal 2.0-7.7 [facility] Comment on above: Performed By: #### L 100.0100, L500.2500 ####[facility] [address] [place], [address] Basophils/100 WBC (Bld) 0.8 % Normal 0-1 [facility] Comment on above: Performed By: #### L 100.0100, L500.2500 ####[facility] [address] [place], [address] Eosinophils/100 WBC (Bld) 1.1 % Normal 0-5 [facility] Comment on above: Performed By: #### L 100.0100, L500.2500 ####[facility] [address] [place], [address] Erythrocyte distribution width (RBC) [Ratio] 13.3 % Normal 11.6-14.6 [facility] Comment on above: Performed By: #### L 100.0100, L500.2500 ####[facility] [address] [place], [address] Hematocrit (Bld) [Volume fraction] 41.5 % Normal 37-47 [facility] Comment on above: Performed By: #### L 100.0100, L500.2500 ####[facility] [address] [place], [address] Hemoglobin (Bld) [Mass/Vol] 13.4 g/dL Normal 12.0-15.0 [facility] Comment on above: Performed By: #### L 100.0100, L500.2500 ####[facility] [address] [place], [address] IG% 0.300 Normal 0.0-0.9 [facility] Comment on above: Result Comment: IG% - Immature Granulocytes (promyelocytes, myelocytes andmetamyelocytes) > 1% indicates that a LEFT SHIFT is Present. Performed By: #### L 100.0100, L500.2500 ####[facility] [address] [place], [address] Lymphocytes/100 WBC (Bld) 19.1 % Normal 19-41 [facility] Comment on above: Performed By: #### L 100.0100, L500.2500 ####[facility] [address] [place], [address] MCH (RBC) [Entitic mass] 28.1 pg Normal 27.0-32.0 [facility] Comment on above: Performed By: #### L 100.0100, L500.2500 ####[facility] [address] [place], [address] MCHC (RBC) [Mass/Vol] 32.3 g/dL Normal 32-36 [facility] Comment on above: Performed By: #### L 100.0100, L500.2500 ####[facility] [address] [place], [address] MCV (RBC) [Entitic vol] 87.0 fL Normal 81-99 [facility] Comment on above: Performed By: #### L 100.0100, L500.2500 ####[facility] [address] [place], [address] Monocytes/100 WBC (Bld) 8.1 % Normal 0-10 [facility] Comment on above: Performed By: #### L 100.0100, L500.2500 ####[facility] [address] [place], [address] Neutrophils/100 WBC (Bld) 70.6 % High 47-70 [facility] Comment on above: Performed By: #### L 100.0100, L500.2500 ####[facility] [address] [place], [address] Nucleated RBC (Bld) [#/Vol] 0 10*3/uL Normal 0-5 [facility] Comment on above: Performed By: #### L 100.0100, L500.2500 ####[facility] [address] [place], [address] Platelet mean volume (Bld) [Entitic vol] 9.6 fL Normal 6.2-12.0 [facility] Comment on above: Performed By: #### L 100.0100, L500.2500 ####[facility] [address] [place], [address] Platelets (Bld) [#/Vol] 257 10*3/uL Normal 150-450 [facility] Comment on above: Performed By: #### L 100.0100, L500.2500 ####[facility] [address] [place], [address] RBC (Bld) [#/Vol] 4.77 10*6/uL Normal 4.2-5.[address] [facility] Comment on above: Performed By: #### L 100.0100, L500.2500 ####[facility] [address] [place], [address] RDW SD 42.8 fl Normal 35.1-43.9 [facility] Comment on above: Performed By: #### L 100.0100, L500.2500 ####[facility] [address] [place], [address] WBC (Bld) [#/Vol] 7.5 10*3/uL Normal 4.4-11.0 [facility] Comment on above: Performed By: #### L 100.0100, L500.2500 ####[facility] [address] [place], [address] CTA Abd/Pelvis W/WO Contrast on 07-15-2024 CTA Abd/Pelvis W/WO Contrast Normal [facility] Carbon dioxide, total [Moles /volume] in Central venous bloodOrdered By: Ta Soto on 07-15-2024 CO2 [Moles/Vol] 23.8 mmol/L 21.0-32.0 [facility] Chloride assayOrdered By: Kilo Soto on 07-15-2024 Chloride [Moles/Vol] 97 mmol/L Low 98-108 [facility] Emergency Department Summary on 07-15-2024 Emergency Department Summary Normal [facility] Eosinophil percentageOrdered By: Ta Soto on 07-15-2024 Eosinophils/100 WBC (Bld) 1.1 % 0-5 [facility] Erythrocyte distribution wid th ratioOrdered By: Ta Soto on 07-15-2024 Erythrocyte distribution width (RBC) [Ratio] 13.3 % 11.6-14.6 [facility] Erythrocyte distribution wid th standard deviationOrdered By: Ta Soto on 07-15-2024 Erythrocyte distribution width (RBC) [Entitic vol] 42.8 fL 35.1-43.9 [facility] Estimation of creatinine kalee aranceOrdered By: Ta Soto on 07-15-2024 Estimated Creatinine Clearance Calc 43.30 ml/min Low 50-250 [facility] GFR/1.73 sq M.predicted toni g non-blacks MDRD (S/P/Bld) [Vol rate/Area]Ordered By: Ta Soto on 07-15-2024 Estimated GFR (MDRD) Non-Af Amer 78 >60 [facility] Comment on above: mL/min/1.73m2 CKD-EP I Creatinine Equation (2020) H AND P Exam - Hospitaliston 07-15-2024 H&P Exam - Hospitalist Normal [facility] HH, Hemoglobin AND Hematocri ton 07-15-2024 Hematocrit (Bld) [Volume fraction] 38.4 % Normal 37-47 [facility] Comment on above: Performed By: #### L 100.0600 ####[facility] [address] [place], [place], [phone]) Hemoglobin (Bld) [Mass/Vol] 12.5 g/dL Normal 12.0-15.0 [facility] Comment on above: Performed By: #### L 100.0600 ####[facility] [address] [place], [place], [phone](252) Hematocrit Auto (Bld) [Volum e fraction]Ordered By: Ta Soto on 07-15-2024 Hematocrit (Bld) [Volume fraction] 41.5 % 37-47 [facility] Hemoglobin measurementOrdere d By: Ta Soto on 07-15-2024 Hemoglobin (Bld) [Mass/Vol] 13.4 g/dL 12.0-15.0 [facility] Immature granulocytes/100 WB C Auto (Bld)Ordered By: Ta Stoo on 07-15-2024 Immature granulocytes/100 WBC (Bld) 0.300 % 0.0-0.9 [facility] Comment on above: IG% - Immature Granu locytes (promyelocytes, myelocytes and metamyelocytes) > 1% indicates that a LEFT SHIFT is Present. International normalized rat io (INR) calculationOrdered By: Ta Soto on 07-15-2024 INR Coag (Bld) [Relative time] 1.1 {INR} [facility] Lower GI hemoglobin IA Ql (S tl)Ordered By: Ta Soto on 07-15-2024 Stool Occult Blood (LOIS) Positive Abnormal [facility] Lymphocytes Auto (Unsp spec) [#/Vol]Ordered By: Ta Soto on 07-15-2024 Lymphocytes (Bld) [#/Vol] 1.44 10*3/uL 0.83-4.51 [facility] Lymphocytes/100 WBC Auto (Un sp spec)Ordered By: Ta Soto on 07-15-2024 Lymphocytes/100 WBC (Bld) 19.1 % 19-41 [facility] MCV (mean corpuscular volume ) determinationOrdered By: Ta Soto on 07-15-2024 MCV (RBC) [Entitic vol] 87.0 fL 81-99 [facility] Mean corpuscular hemoglobin (MCH) determinationOrdered By: Ta Soto on 07-15-2024 MCH (RBC) [Entitic mass] 28.1 pg 27.0-32.0 [facility] Mean corpuscular hemoglobin concentration (MCHC) determinationOrdered By: Ta Soto on 07-15-2024 MCHC (RBC) [Mass/Vol] 32.3 g/dL 32-36 [facility] Mean platelet volume determi nationOrdered By: Ta Soto on 07-15-2024 Platelet mean volume (Bld) [Entitic vol] 9.6 fL 6.2-12.0 [facility] Monocyte percentageOrdered B y: Ta Soto on 07-15-2024 Monocytes/100 WBC (Bld) 8.1 % 0-10 [facility] Neutrophil percentageOrdered By: Ta Soto on 07-15-2024 Neutrophils/100 WBC (Bld) 70.6 % High 47-70 [facility] Nucleated red blood cell per centageOrdered By: Ta Soto on 07-15-2024 Nucleated RBC/100 WBC (Bld) [Ratio] 0 % 0-5 [facility] Partial Thromboplast Timeon 07-15-2024 aPTT Coag (Bld) [Time] 32.6 s Normal 24.1-36.2 [facility] Comment on above: Performed By: #### B AGE, K34212-3, L300.3900, L300.4310, S, [facility], [id number] ####[facility] [address] [place], [place], [id number] Platelet countOrdered By: Kilo Soto on 07-15-2024 Platelets (Bld) [#/Vol] 257 10*3/uL 150-450 [facility] Potassium (Unsp spec) [Mass/ Vol]Ordered By: Ta Soto on 07-15-2024 Potassium [Moles/Vol] 4.0 mmol/L 3.3-5.1 [facility] Prothrombin Time w/INRon INR Coag (PPP) [Relative time] 1.1 {INR} Normal [facility] Comment on above: Performed By: #### B AGE, J59891-7, L300.3900, L300.4310, BTS, BR, [id number] ####[facility] [address] [place], [place], [id number] PT Coag (PPP) [Time] 14.3 s Normal 11.7-14.9 [facility] Comment on above: Performed By: #### B AGE, K65293-2, L300.3900, L300.4310, BTS, BR, [id number] ####[facility] [address] [place], [address] Prothrombin timeOrdered By: Ta Soto on 07-15-2024 PT Coag (PPP) [Time] 14.3 s 11.7-14.9 [facility] RBC Auto (Bld) [#/Vol]Ordere d By: Ta Soto on 07-15-2024 RBC (Bld) [#/Vol] 4.77 10*6/uL 4.2-5.[address] [facility] Serum creatinine measurement (mass/volume)Ordered By: Ta Soto on 07-15-2024 Creatinine [Mass/Vol] 0.75 mg/dL 0.70-1.20 [facility] Serum glucose measurement (m ass/volume)Ordered By: Ta Soto on 07-15-2024 Glucose [Mass/Vol] 136 mg/dL High 70-99 [facility] Serum or plasma calcium july urement (mass/volume)Ordered By: Ta Soto on 07-15-2024 Calcium [Mass/Vol] 10.1 mg/dL 7.6-11.0 [facility] Serum or plasma urea nitroge n measurement (mass/volume)Ordered By: Ta Soto on 07-15-2024 Urea nitrogen [Mass/Vol] 14 mg/dL 4-19 [facility] Sodium levelOrdered By: Ta Soto on 07-15-2024 Sodium [Moles/Vol] 133 mmol/L 133-145 [facility] Stool Occult Blood iFOBon STOB Positive Normal [facility] Comment on above: Performed By: #### M 100.7900 ####[facility] [address] [place], [place], [id number] Stool gastrointestinal hemog lobin detection by immunologic methodOrdered By: Ta Soto on 07-15-2024 Lower GI hemoglobin IA Ql (Stl) Positive Abnormal [facility] Type AND Screenon 07-15-2024 Ab SCREEN GEL Positive Abnormal [facility] Comment on above: Order Comment: HGI Performed By: #### B AGE, U39897-4, L300.3900, L300.4310, BTS, BRC, [id number] ####[facility] [address] [place], [address] White blood cell (WBC) count Ordered By: Ta Brittany on 07-15-2024 WBC (Bld) [#/Vol] 7.5 10*3/uL 4.4-11.0 [facility] aPTT Coag (PPP) [Time]Ordere d By: Ta Soto on 07-15-2024 aPTT Coag (Bld) [Time] 32.6 s 24.1-36.2 [facility] Vitamin B12on 05-22-2024 Cobalamin (Vitamin B12) [Mass/Vol] 534 pg/mL Normal 211-911 [facility] Comment on above: Order Comment: Order Date: 05/21/24Order Info: 2132-9 - B12 Performed By: #### L 503.6550, L100.0100, L503.0105 ####[facility] [address] [place], [address] Absolute neutrophil countOrd ered By: Josegerman Hdz on 05-21-2024 Neutrophils (Bld) [#/Vol] 4.6 10*3/uL 2.0-7.7 [facility] Basophil percentageOrdered B y: Jose Hdz on 05-21-2024 Basophils/100 WBC (Bld) 1.1 % High 0-1 [facility] CBC W/Diff, Automatedon Absolute Lymph 1.26 X10 3/uL Normal 0.83-4.51 [facility] Comment on above: Order Comment: Order Date: 05/21/24Order Info: 0184-1 - CBCD Performed By: #### L 503.6550, L100.0100, L503.0105 ####[facility] [address] [place], [address] Absolute Neut 4.6 X10 3/uL Normal 2.0-7.7 [facility] Comment on above: Order Comment: Order Date: 05/21/24Order Info: 0184-1 - CBCD Performed By: #### L 503.6550, L100.0100, L503.0105 ####[facility] [address] [place], [address] Basophils/100 WBC (Bld) 1.1 % High 0-1 [facility] Comment on above: Order Comment: Order Date: 05/21/24Order Info: 0184-1 - CBCD Performed By: #### L 503.6550, L100.0100, L503.0105 ####[facility] [address] [place], [address] Eosinophils/100 WBC (Bld) 2.4 % Normal 0-5 [facility] Comment on above: Order Comment: Order Date: 05/21/24Order Info: 0184-1 - CBCD Performed By: #### L 503.6550, L100.0100, L503.0105 ####[facility] [address] [place], [address] Erythrocyte distribution width (RBC) [Ratio] 14.7 % High 11.6-14.6 [facility] Comment on above: Order Comment: Order Date: 05/21/24Order Info: 0184-1 - CBCD Performed By: #### L 503.6550, L100.0100, L503.0105 ####[facility] [address] [place], [address] Hematocrit (Bld) [Volume fraction] 41.6 % Normal 37-47 [facility] Comment on above: Order Comment: Order Date: 05/21/24Order Info: 0184-1 - CBCD Performed By: #### L 503.6550, L100.0100, L503.0105 ####[facility] [address] [place], [address] Hemoglobin (Bld) [Mass/Vol] 13.2 g/dL Normal 12.0-15.0 [facility] Comment on above: Order Comment: Order Date: 05/21/24Order Info: 0184-1 - CBCD Performed By: #### L 503.6550, L100.0100, L503.0105 ####[facility] [address] [place], [address] IG% 0.400 Normal 0.0-0.9 [facility] Comment on above: Order Comment: Order Date: 05/21/24Order Info: 0184-1 - CBCD Result Comment: IG% - Immature Granulocytes (promyelocytes, myelocytes andmetamyelocytes) > 1% indicates that a LEFT SHIFT is Present. Performed By: #### L [id number], L100.0100, [id number] ####[facility] [address] [place], [address] Lymphocytes/100 WBC (Bld) 18.0 % Low 19-41 [facility] Comment on above: Order Comment: Order Date: 05/21/24Order Info: 018- - CBCD Performed By: #### L [id number], L100.0100, [id number] ####[facility] [facility] [address] [place], [address] MCH (RBC) [Entitic mass] 28.8 pg Normal 27.0-32.0 [facility] Comment on above: Order Comment: Order Date: 05/21/24Order Info: 0184-1 - CBCD Performed By: #### L 503.6550, L100.0100, L503.0105 ####[facility] [address] [place], [address] MCHC (RBC) [Mass/Vol] 31.7 g/dL Low 32-36 [facility] Comment on above: Order Comment: Order Date: 05/21/24Order Info: 0184-1 - CBCD Performed By: #### L 503.6550, L100.0100, L503.0105 ####[facility] [address] [place], [address] MCV (RBC) [Entitic vol] 90.8 fL Normal 81-99 [facility] Comment on above: Order Comment: Order Date: 05/21/24Order Info: 0184-1 - CBCD Performed By: #### L 503.6550, L100.0100, L503.0105 ####[facility] [address] [place], [address] Monocytes/100 WBC (Bld) 11.8 % High 0-10 [facility] Comment on above: Order Comment: Order Date: 05/21/24Order Info: 0184-1 - CBCD Performed By: #### L 503.6550, L100.0100, L503.0105 ####[facility] [address] [place], [address] Neutrophils/100 WBC (Bld) 66.3 % Normal 47-70 [facility] Comment on above: Order Comment: Order Date: 05/21/24Order Info: 0184-1 - CBCD Performed By: #### L 503.6550, L100.0100, L503.0105 ####[facility] [address] [place], [address] Nucleated RBC (Bld) [#/Vol] 0 10*3/uL Normal 0-5 [facility] Comment on above: Order Comment: Order Date: 05/21/24Order Info: 0184-1 - CBCD Performed By: #### L 503.6550, L100.0100, L503.0105 ####[facility] [address] [place], [address] Platelet mean volume (Bld) [Entitic vol] 10.2 fL Normal 6.2-12.0 [facility] Comment on above: Order Comment: Order Date: 05/21/24Order Info: 0184-1 - CBCD Performed By: #### L 503.6550, L100.0100, L503.0105 ####[facility] [address] [place], [address] Platelets (Bld) [#/Vol] 308 10*3/uL Normal 150-450 [facility] Comment on above: Order Comment: Order Date: 05/21/24Order Info: 0184-1 - CBCD Performed By: #### L 503.6550, L100.0100, L503.0105 ####[facility] [address] [place], [address] RBC (Bld) [#/Vol] 4.58 10*6/uL Normal 4.2-5.[address] [facility] Comment on above: Order Comment: Order Date: 05/21/24Order Info: 0184-1 - CBCD Performed By: #### L 503.6550, L100.0100, L503.0105 ####[facility] [address] [place], [address] RDW SD 49.1 fl High 35.1-43.9 [facility] Comment on above: Order Comment: Order Date: 05/21/24Order Info: 0184-1 - CBCD Performed By: #### L 503.6550, L100.0100, L503.0105 ####[facility] [address] [place], [address] WBC (Bld) [#/Vol] 7.0 10*3/uL Normal 4.4-11.0 [facility] Comment on above: Order Comment: Order Date: 05/21/24Order Info: 0184-1 - CBCD Performed By: #### L 503.6550, L100.0100, L503.0105 ####[facility] [address] [place], [address] Eosinophil percentageOrdered By: Jose Hdz on 05-21-2024 Eosinophils/100 WBC (Bld) 2.4 % 0-5 [facility] Erythrocyte distribution wid th ratioOrdered By: Jose Hdz on 05-21-2024 Erythrocyte distribution width (RBC) [Ratio] 14.7 % High 11.6-14.6 [facility] Erythrocyte distribution wid th standard deviationOrdered By: Jose Hdz on 05-21-2024 Erythrocyte distribution width (RBC) [Entitic vol] 49.1 fL High 35.1-43.9 [facility] Ferritinon 05-21-2024 Ferritin [Mass/Vol] 40 ng/mL Normal 8-[address] [facility] Comment on above: Order Comment: Order Date: 05/21/24Order Info: [id number] - ROSENDO Performed By: #### L 503.6550, L100.0100, L503.0105 ####[facility] [address] [place], [place], [id number] Ferritin measurementOrdered By: Jose Hdz on 05-21-2024 Ferritin [Mass/Vol] 40 ng/mL 8-[address] [facility] Hematocrit Auto (Bld) [Volum e fraction]Ordered By: Jose Hdz on 05-21-2024 Hematocrit (Bld) [Volume fraction] 41.6 % 37-47 [facility] Hemoglobin measurementOrdere d By: Jose Hdz on 05-21-2024 Hemoglobin (Bld) [Mass/Vol] 13.2 g/dL 12.0-15.0 [facility] Immature granulocytes/100 WB C Auto (Bld)Ordered By: Jose Hdz on 05-21-2024 Immature granulocytes/100 WBC (Bld) 0.400 % 0.0-0.9 [facility] Comment on above: IG% - Immature Granu locytes (promyelocytes, myelocytes and metamyelocytes) > 1% indicates that a LEFT SHIFT is Present. Lymphocytes Auto (Unsp spec) [#/Vol]Ordered By: Jose Hdz on 05-21-2024 Lymphocytes (Bld) [#/Vol] 1.26 10*3/uL 0.83-4.51 [facility] Lymphocytes/100 WBC Auto (Un sp spec)Ordered By: Jose Hdz on 05-21-2024 Lymphocytes/100 WBC (Bld) 18.0 % Low 19-41 [facility] MCV (mean corpuscular volume ) determinationOrdered By: Jose Hdz on 05-21-2024 MCV (RBC) [Entitic vol] 90.8 fL 81-99 [facility] Mean corpuscular hemoglobin (MCH) determinationOrdered By: Jose Hdz on 05-21-2024 MCH (RBC) [Entitic mass] 28.8 pg 27.0-32.0 [facility] Mean corpuscular hemoglobin concentration (MCHC) determinationOrdered By: Jose Hdz on 05-21-2024 MCHC (RBC) [Mass/Vol] 31.7 g/dL Low 32-36 [facility] Mean platelet volume determi nationOrdered By: Jose Hdz on 05-21-2024 Platelet mean volume (Bld) [Entitic vol] 10.2 fL 6.2-12.0 [facility] Monocyte percentageOrdered B y: Jose Hdz on 05-21-2024 Monocytes/100 WBC (Bld) 11.8 % High 0-10 [facility] Neutrophil percentageOrdered By: Jose Hdz on 05-21-2024 Neutrophils/100 WBC (Bld) 66.3 % 47-70 [facility] Nucleated red blood cell per centageOrdered By: Jose Hdz on 05-21-2024 Nucleated RBC/100 WBC (Bld) [Ratio] 0 % 0-5 [facility] Platelet countOrdered By: Amol Hdz on 05-21-2024 Platelets (Bld) [#/Vol] 308 10*3/uL 150-450 [facility] RBC Auto (Bld) [#/Vol]Ordere d By: Jose Hdz on 05-21-2024 RBC (Bld) [#/Vol] 4.58 10*6/uL 4.2-5.[address] [facility] Vitamin B12 measurementOrder ed By: Jose Hdz on 05-21-2024 Cobalamin (Vitamin B12) [Mass/Vol] 534 pg/mL 211-911 [facility] White blood cell (WBC) count Ordered By: Jose Hdz on 05-21-2024 WBC (Bld) [#/Vol] 7.0 10*3/uL 4.4-11.0 [facility] Absolute neutrophil countOrd ered By: Brad Winslow on 04-17-2024 Neutrophils (Bld) [#/Vol] 3.9 10*3/uL 2.0-7.7 [facility] Basophil percentageOrdered B y: Brad Friend on 04-17-2024 Basophils/100 WBC (Bld) 1.2 % High 0-1 [facility] CBC W/Diff, Automatedon 03-20 Absolute Lymph 1.09 X10 3/uL Normal 0.83-4.51 [facility] Comment on above: Performed By: #### L 100.0100 ####[facility] [address] [place], [address] Absolute Neut 3.9 X10 3/uL Normal 2.0-7.7 [facility] Comment on above: Performed By: #### L 100.0100 ####[facility] [address] [place], [address] Basophils/100 WBC (Bld) 1.2 % High 0-1 [facility] Comment on above: Performed By: #### L 100.0100 ####[facility] [address] [place], [address] Eosinophils/100 WBC (Bld) 2.3 % Normal 0-5 [facility] Comment on above: Performed By: #### L 100.0100 ####[facility] [address] [place], [address] Erythrocyte distribution width (RBC) [Ratio] 17.1 % High 11.6-14.6 [facility] Comment on above: Performed By: #### L 100.0100 ####[facility] [address] [place], [address] Hematocrit (Bld) [Volume fraction] 37.8 % Normal 37-47 [facility] Comment on above: Performed By: #### L 100.0100 ####[facility] [address] [place], [address] Hemoglobin (Bld) [Mass/Vol] 11.8 g/dL Low 12.0-15.0 [facility] Comment on above: Performed By: #### L 100.0100 ####[facility] [address] [place], [address] IG% 0.700 Normal 0.0-0.9 [facility] Comment on above: Result Comment: IG% - Immature Granulocytes (promyelocytes, myelocytes andmetamyelocytes) > 1% indicates that a LEFT SHIFT is Present. Performed By: #### L 100.0100 ####[facility] [address] [place], [address] Lymphocytes/100 WBC (Bld) 18.1 % Low 19-41 [facility] Comment on above: Performed By: #### L 100.0100 ####[facility] [address] [place], [address] MCH (RBC) [Entitic mass] 28.3 pg Normal 27.0-32.0 [facility] Comment on above: Performed By: #### L 100.0100 ####[facility] [address] [place], [address] MCHC (RBC) [Mass/Vol] 31.2 g/dL Low 32-36 [facility] Comment on above: Performed By: #### L 100.0100 ####[facility] [address] [place], [address] MCV (RBC) [Entitic vol] 90.6 fL Normal 81-99 [facility] Comment on above: Performed By: #### L 100.0100 ####[facility] [address] [place], [address] Monocytes/100 WBC (Bld) 12.9 % High 0-10 [facility] Comment on above: Performed By: #### L 100.0100 ####[facility] [address] [place], [address] Neutrophils/100 WBC (Bld) 64.8 % Normal 47-70 [facility] Comment on above: Performed By: #### L 100.0100 ####[facility] [address] [place], [address] Nucleated RBC (Bld) [#/Vol] 0 10*3/uL Normal 0-5 [facility] Comment on above: Performed By: #### L 100.0100 ####[facility] [address] [place], [address] Platelet mean volume (Bld) [Entitic vol] 10.0 fL Normal 6.2-12.0 [facility] Comment on above: Performed By: #### L 100.0100 ####[facility] [address] [place], [address] Platelets (Bld) [#/Vol] 302 10*3/uL Normal 150-450 [facility] Comment on above: Performed By: #### L 100.0100 ####[facility] [address] [place], [address] RBC (Bld) [#/Vol] 4.17 10*6/uL Low 4.2-5.[address] [facility] Comment on above: Performed By: #### L 100.0100 ####[facility] [address] [place], [address] RDW SD 57.3 fl High 35.1-43.9 [facility] Comment on above: Performed By: #### L 100.0100 ####[facility] [address] [place], [address] WBC (Bld) [#/Vol] 6.0 10*3/uL Normal 4.4-11.0 [facility] Comment on above: Performed By: #### L 100.0100 ####[facility] [address] [place], [address] Eosinophil percentageOrdered By: Brad Winslow on 04-17-2024 Eosinophils/100 WBC (Bld) 2.3 % 0-5 [facility] Erythrocyte distribution wid th ratioOrdered By: Brad Winslow on 04-17-2024 Erythrocyte distribution width (RBC) [Ratio] 17.1 % High 11.6-14.6 [facility] Erythrocyte distribution wid th standard deviationOrdered By: Brad Winslow on 04-17-2024 Erythrocyte distribution width (RBC) [Entitic vol] 57.3 fL High 35.1-43.9 [facility] Gastroenterology Visit Repor ton 04-17-2024 Gastroenterology Visit Report Normal [facility] Hematocrit Auto (Bld) [Volum e fraction]Ordered By: Brad Winslow on 04-17-2024 Hematocrit (Bld) [Volume fraction] 37.8 % 37-47 [facility] Hemoglobin measurementOrdere d By: Brad Winslow on 04-17-2024 Hemoglobin (Bld) [Mass/Vol] 11.8 g/dL Low 12.0-15.0 [facility] Immature granulocytes/100 WB C Auto (Bld)Ordered By: Brad Winslow on 04-17-2024 Immature granulocytes/100 WBC (Bld) 0.700 % 0.0-0.9 [facility] Comment on above: IG% - Immature Granu locytes (promyelocytes, myelocytes and metamyelocytes) > 1% indicates that a LEFT SHIFT is Present. Lymphocytes Auto (Unsp spec) [#/Vol]Ordered By: Brad Winslow on 04-17-2024 Lymphocytes (Bld) [#/Vol] 1.09 10*3/uL 0.83-4.51 [facility] Lymphocytes/100 WBC Auto (Un sp spec)Ordered By: Brad Winslow on 04-17-2024 Lymphocytes/100 WBC (Bld) 18.1 % Low 19-41 [facility] MCV (mean corpuscular volume ) determinationOrdered By: Brad Winslow on 04-17-2024 MCV (RBC) [Entitic vol] 90.6 fL 81-99 [facility] Mean corpuscular hemoglobin (MCH) determinationOrdered By: Brad Winslow on 04-17-2024 MCH (RBC) [Entitic mass] 28.3 pg 27.0-32.0 [facility] Mean corpuscular hemoglobin concentration (MCHC) determinationOrdered By: Brad Winslow on 04-17-2024 MCHC (RBC) [Mass/Vol] 31.2 g/dL Low 32-36 [facility] Mean platelet volume determi nationOrdered By: Brad Winslow on 04-17-2024 Platelet mean volume (Bld) [Entitic vol] 10.0 fL 6.2-12.0 [facility] Monocyte percentageOrdered B y: Brad Winslow on 04-17-2024 Monocytes/100 WBC (Bld) 12.9 % High 0-10 [facility] Neutrophil percentageOrdered By: Brad Winslow on 04-17-2024 Neutrophils/100 WBC (Bld) 64.8 % 47-70 [facility] Nucleated red blood cell per centageOrdered By: Brad Winslow on 04-17-2024 Nucleated RBC/100 WBC (Bld) [Ratio] 0 % 0-5 [facility] Platelet countOrdered By: Ra devorah Winslow on 04-17-2024 Platelets (Bld) [#/Vol] 302 10*3/uL 150-450 [facility] RBC Auto (Bld) [#/Vol]Ordere d By: Brad Winslow on 04-17-2024 RBC (Bld) [#/Vol] 4.17 10*6/uL Low 4.2-5.[address] [facility] White blood cell (WBC) count Ordered By: Brad Winslow on 04-17-2024 WBC (Bld) [#/Vol] 6.0 10*3/uL 4.4-11.0 [facility] Vitamin D 1,25-Dihydroxyon 1 05-27-2023 VIT D 1,25 DIHY 23.4 pg/mL Abnormal 24.8-81.5 [facility] Comment on above: Result Comment: Perf ormed at: - [facility] [address] [id number] Director: Georges Rabago MD, Phone: [phone] Performed By: #### L 3300.0960 ####[facility] [address] [place], [address] Basic Metabolic Profile (BMP )on 03-25-2024 BUN/CRE 26.2 RATIO High 10-20 [facility] Comment on above: Performed By: #### L 100.0100, L500.2500 ####[facility] [address] [place], [address] CA,Total 8.4 mg/dL Low 8.5-10.1 [facility] Comment on above: Performed By: #### L 100.0100, L500.2500 ####[facility] [address] [place], [address] Chloride [Moles/Vol] 108 mmol/L High 98-107 [facility] Comment on above: Performed By: #### L 100.0100, L500.2500 ####[facility] [address] [place], [address] CO2 [Moles/Vol] 25.0 mmol/L Normal 21.0-32.0 [facility] Comment on above: Performed By: #### L 100.0100, L500.2500 ####[facility] [address] [place], [address] Creatinine [Mass/Vol] 0.69 mg/dL Normal 0.55-1.02 [facility] Comment on above: Result Comment: The validity of the calculated GFR GFRAA in patients over70 years has not been determined. Clinical correlation isessential. Performed By: #### L 100.0100, L500.2500 ####[facility] [address] [place], [address] ECRCL 44.08 ml/min Normal [facility] Comment on above: Performed By: #### L 100.0100, L500.2500 ####[facility] [address] [place], [address] EST GFR - AA 105 mL/min Normal >60 [facility] Comment on above: Result Comment: Afri can Finnish GFR Calc Performed By: #### L 100.0100, L500.2500 ####[facility] [address] [place], [address] GAP 8 Normal 5-15 [facility] Comment on above: Performed By: #### L 100.0100, L500.2500 ####[facility] [address] [place], [address] GFR/1.73 sq M.predicted among non-blacks MDRD (S/P/Bld) [Vol rate/Area] 87 mL/min/{1.73_m2} Normal >60 [facility] Comment on above: Result Comment: Non- GFR Calc Performed By: #### L 100.0100, L500.2500 ####[facility] [address] [place], [address] Glucose [Mass/Vol] 97 mg/dL Normal 74-106 [facility] Comment on above: Performed By: #### L 100.0100, L500.2500 ####[facility] [address] [place], [address] Potassium [Moles/Vol] 3.1 mmol/L Low 3.5-5.1 [facility] Comment on above: Performed By: #### L 100.0100, L500.2500 ####[facility] [address] [place], [address] Sodium [Moles/Vol] 140 mmol/L Normal 136-145 [facility] Comment on above: Performed By: #### L 100.0100, L500.2500 ####[facility] [address] [place], [address] Urea nitrogen [Mass/Vol] 18 mg/dL Normal 7-18 [facility] Comment on above: Performed By: #### L 100.0100, L500.2500 ####[facility] [address] [place], [address] Blood urea nitrogen (BUN)/cr eatinine ratioOrdered By: Lamin Griffith on 03-25-2024 Urea nitrogen/Creatinine [Mass ratio] 26.2 mg/mg High 10-20 [facility] CBC W/Diff, Automatedon 12-0 Absolute Neut Normal 2.0-7.7 [facility] Comment on above: Result Comment: Canc elled via OM: MD Ordered Performed By: #### L 100.0100, L500.2500 ####[facility] [address] [place], [address] HCT Normal 37-47 [facility] Comment on above: Result Comment: Canc elled via OM: MD Ordered Performed By: #### L 100.0100, L500.2500 ####[facility] [address] [place], [address] HGB Normal 12.0-15.0 [facility] Comment on above: Result Comment: Canc elled via OM: MD Ordered Performed By: #### L 100.0100, L500.2500 ####[facility] [address] [place], [address] MCH Normal 27.0-32.0 [facility] Comment on above: Result Comment: Canc elled via OM: MD Ordered Performed By: #### L 100.0100, L500.2500 ####[facility] [address] [place], [address] MCHC Normal 32-36 [facility] Comment on above: Result Comment: Canc elled via OM: MD Ordered Performed By: #### L 100.0100, L500.2500 ####[facility] [address] [place], [address] MCV Normal 81-99 [facility] Comment on above: Result Comment: Canc elled via OM: MD Ordered Performed By: #### L 100.0100, L500.2500 ####[facility] [address] [place], [address] NEUT% Normal 47-70 [facility] Comment on above: Result Comment: Canc elled via OM: MD Ordered Performed By: #### L 100.0100, L500.2500 ####[facility] [address] [place], [address] PLT Normal 150-450 [facility] Comment on above: Result Comment: Canc elled via OM: MD Ordered Performed By: #### L 100.0100, L500.2500 ####[facility] [address] [place], [address] RBC Normal 4.2-5.4 [facility] Comment on above: Result Comment: Canc elled via OM: MD Ordered Performed By: #### L 100.0100, L500.2500 ####[facility] [address] [place], [address] RDW CV Normal 11.6-14.6 [facility] Comment on above: Result Comment: Canc elled via OM: MD Ordered Performed By: #### L 100.0100, L500.2500 ####[facility] [address] [place], [address] RDW SD Normal 35.1-43.9 [facility] Comment on above: Result Comment: Canc elled via OM: MD Ordered Performed By: #### L 100.0100, L500.2500 ####[facility] [address] [place], [address] WBC Normal 4.4-11.0 [facility] Comment on above: Result Comment: Canc elled via OM: MD Ordered Performed By: #### L 100.0100, L500.2500 ####[facility] [address] [place], [address] CBC-Complete Blood Cnt No Angélica carlson 03-25-2024 Erythrocyte distribution width (RBC) [Ratio] 15.5 % High 11.6-14.6 [facility] Comment on above: Performed By: #### L 100.0500 ####[facility] [address] [place], [address] Hematocrit (Bld) [Volume fraction] 28.1 % Low 37-47 [facility] Comment on above: Performed By: #### L 100.0500 ####[facility] [address] [place], [address] Hemoglobin (Bld) [Mass/Vol] 9.3 g/dL Low 12.0-15.0 [facility] Comment on above: Performed By: #### L 100.0500 ####[facility] [address] [place], [address] MCH (RBC) [Entitic mass] 29.1 pg Normal 27.0-32.0 [facility] Comment on above: Performed By: #### L 100.0500 ####[facility] [address] [place], [address] MCHC (RBC) [Mass/Vol] 33.1 g/dL Normal 32-36 [facility] Comment on above: Performed By: #### L 100.0500 ####[facility] [address] [place], [address] MCV (RBC) [Entitic vol] 87.8 fL Normal 81-99 [facility] Comment on above: Performed By: #### L 100.0500 ####[facility] [address] [place], [address] Platelet mean volume (Bld) [Entitic vol] 10.3 fL Normal 6.2-12.0 [facility] Comment on above: Performed By: #### L 100.0500 ####[facility] [address] [place], [address] Platelets (Bld) [#/Vol] 275 10*3/uL Normal 150-450 [facility] Comment on above: Performed By: #### L 100.0500 ####[facility] [address] [place], [address] RBC (Bld) [#/Vol] 3.20 10*6/uL Low 4.2-5.[address] [facility] Comment on above: Performed By: #### L 100.0500 ####[facility] [address] [place], [address] RDW SD 48.5 fl High 35.1-43.9 [facility] Comment on above: Performed By: #### L 100.0500 ####[facility] [address] [place], [address] WBC (Bld) [#/Vol] 8.2 10*3/uL Normal 4.4-11.0 [facility] Comment on above: Performed By: #### L 100.0500 ####[facility] [address] [place], [address] Carbon dioxide measurementOr dered By: Lamin Griffith on 03-25-2024 CO2 [Moles/Vol] 25.0 mmol/L 21.0-32.0 [facility] Chloride measurementOrdered By: Lamin Griffith on 03-25-2024 Chloride [Moles/Vol] 108 mmol/L High 98-107 [facility] Discharge Instructionon Discharge Instruction Normal [facility] Erythrocyte distribution wid th ratioOrdered By: Brodie Swartz on 03-25-2024 Erythrocyte distribution width (RBC) [Ratio] 15.5 % High 11.6-14.6 [facility] Erythrocyte distribution wid th standard deviationOrdered By: Brodie Swartz on 03-25-2024 Erythrocyte distribution width (RBC) [Entitic vol] 48.5 fL High 35.1-43.9 [facility] Estimated glomerular filtrat ion rate (GFR) AmericanOrdered By: Lamin Griffith on 03-25-2024 Estimated GFR (MDRD) Amer 105 mL/min >60 [facility] Comment on above: GFR Calc Estimation of creatinine kalee aranceOrdered By: Lamin Griffith on 03-25-2024 Estimated Creatinine Clearance Calc 44.08 ml/min [facility] Glomerular filtration rate ( GFR) estimationOrdered By: Lamin Griffith on 03-25-2024 Estimated GFR (MDRD) Non-Af Amer 87 mL/min >60 [facility] Comment on above: Non- GFR Calc Glucose measurementOrdered B y: Lamin Griffith on 03-25-2024 Glucose [Mass/Vol] 97 mg/dL 74-106 [facility] Hematocrit Auto (Bld) [Volum e fraction]Ordered By: Brodie Swartz on 03-25-2024 Hematocrit (Bld) [Volume fraction] 28.1 % Low 37-47 [facility] Hemoglobin measurementOrdere d By: Brodie Swartz on 03-25-2024 Hemoglobin (Bld) [Mass/Vol] 9.3 g/dL Low 12.0-15.0 [facility] MCV (mean corpuscular volume ) determinationOrdered By: Brodie Swartz on 03-25-2024 MCV (RBC) [Entitic vol] 87.8 fL 81-99 [facility] Mean corpuscular hemoglobin (MCH) determinationOrdered By: Brodie Swartz on 03-25-2024 MCH (RBC) [Entitic mass] 29.1 pg 27.0-32.0 [facility] Mean corpuscular hemoglobin concentration (MCHC) determinationOrdered By: Brodie Swartz on 03-25-2024 MCHC (RBC) [Mass/Vol] 33.1 g/dL 32-36 [facility] Mean platelet volume determi nationOrdered By: Brodie Swartz on 03-25-2024 Platelet mean volume (Bld) [Entitic vol] 10.3 fL 6.2-12.0 [facility] Platelet countOrdered By: Ayaan Swartz on 03-25-2024 Platelets (Bld) [#/Vol] 275 10*3/uL 150-450 [facility] Potassium measurementOrdered By: Lamin Griffith on 03-25-2024 Potassium [Moles/Vol] 3.1 mmol/L Low 3.5-5.1 [facility] RBC Auto (Bld) [#/Vol]Ordere d By: Brodie Swartz on 03-25-2024 RBC (Bld) [#/Vol] 3.20 10*6/uL Low 4.2-5.[address] [facility] Serum anion gap measurementO rdered By: Lamin Griffith on 03-25-2024 Anion gap [Moles/Vol] 8 mmol/L 5-15 [facility] Serum or plasma calcium july urement (mass/volume)Ordered By: Lamin Griffith on 03-25-2024 Calcium [Mass/Vol] 8.4 mg/dL Low 8.5-10.1 [facility] Serum or plasma creatinine m easurement (mass/volume)Ordered By: Lamin Griffith on 03-25-2024 Creatinine [Mass/Vol] 0.69 mg/dL 0.55-1.02 [facility] Comment on above: The validity of the calculated GFR & GFRAA in patients over 70 years has not been determined. Clinical correlation is essential. Serum or plasma urea nitroge n measurement (mass/volume)Ordered By: Lamin Griffith on 03-25-2024 Urea nitrogen [Mass/Vol] 18 mg/dL 7-18 [facility] Sodium levelOrdered By: Beto Griffith on 03-25-2024 Sodium [Moles/Vol] 140 mmol/L 136-145 [facility] Urine Cultureon 03-25-2024 URC Normal [facility] Comment on above: Performed By: #### L 400.0001, M100.2200 ####[facility] [address] [place], [address] White blood cell (WBC) count Ordered By: Brodie Swartz on 03-25-2024 WBC (Bld) [#/Vol] 8.2 10*3/uL 4.4-11.0 [facility] Absolute neutrophil countOrd ered By: Lamin Griffith on 03-24-2024 Neutrophils (Bld) [#/Vol] 5.6 10*3/uL 2.0-7.7 [facility] Basic Metabolic Profile (BMP )on 03-24-2024 BUN/CRE 19.5 RATIO Normal 10-20 [facility] Comment on above: Performed By: #### L 100.0100, L500.2500 ####[facility] [address] [place], [address] CA,Total 8.2 mg/dL Low 8.5-10.1 [facility] Comment on above: Performed By: #### L 100.0100, L500.2500 ####[facility] [address] [place], [address] Chloride [Moles/Vol] 109 mmol/L High 98-107 [facility] Comment on above: Performed By: #### L 100.0100, L500.2500 ####[facility] [address] [place], [address] CO2 [Moles/Vol] 24.0 mmol/L Normal 21.0-32.0 [facility] Comment on above: Performed By: #### L 100.0100, L500.2500 ####[facility] [address] [place], [address] Creatinine [Mass/Vol] 0.72 mg/dL Normal 0.55-1.02 [facility] Comment on above: Result Comment: The validity of the calculated GFR GFRAA in patients over70 years has not been determined. Clinical correlation isessential. Performed By: #### L 100.0100, L500.2500 ####[facility] [address] [place], [address] ECRCL 44.08 ml/min Normal [facility] Comment on above: Performed By: #### L 100.0100, L500.2500 ####[facility] [address] [place], [address] EST GFR - AA 100 mL/min Normal >60 [facility] Comment on above: Result Comment: Afri can Finnish GFR Calc Performed By: #### L 100.0100, L500.2500 ####[facility] [address] [place], [address] GAP 4 Low 5-15 [facility] Comment on above: Performed By: #### L 100.0100, L500.2500 ####[facility] [address] [place], [address] GFR/1.73 sq M.predicted among non-blacks MDRD (S/P/Bld) [Vol rate/Area] 82 mL/min/{1.73_m2} Normal >60 [facility] Comment on above: Result Comment: Non- GFR Calc Performed By: #### L 100.0100, L500.2500 ####[facility] [address] [place], [address] Glucose [Mass/Vol] 99 mg/dL Normal 74-106 [facility] Comment on above: Performed By: #### L 100.0100, L500.2500 ####[facility] [address] [place], [address] Potassium [Moles/Vol] 3.6 mmol/L Normal 3.5-5.1 [facility] Comment on above: Result Comment: Mode rate Hemolysis, Result may be falsely increased. Performed By: #### L 100.0100, L500.2500 ####[facility] [address] [place], [address] Sodium [Moles/Vol] 137 mmol/L Normal 136-145 [facility] Comment on above: Performed By: #### L 100.0100, L500.2500 ####[facility] [address] [place], [address] Urea nitrogen [Mass/Vol] 14 mg/dL Normal 7-18 [facility] Comment on above: Performed By: #### L 100.0100, L500.2500 ####[facility] [address] [place], [address] Basophil percentageOrdered B y: Lamin Griffith on 03-24-2024 Basophils/100 WBC (Bld) 0.9 % 0-1 [facility] Bedside Glucoseon 03-24-2024 FINGERSTICK GLU 84 mg/dL Normal 74-106 [facility] Comment on above: Result Comment: ISAMAR MEADOWS OF PATIENT CARE PER NURSING PROTOCOL Performed By: #### L 501.080 ####[facility] [address] [place], [address] CBC W/Diff, Automatedon Absolute Lymph 0.82 X10 3/uL Low 0.83-4.51 [facility] Comment on above: Performed By: #### L 100.0100, L500.2500 ####[facility] [address] [place], [address] Absolute Neut 5.6 X10 3/uL Normal 2.0-7.7 [facility] Comment on above: Performed By: #### L 100.0100, L500.2500 ####[facility] [address] [place], [address] Basophils/100 WBC (Bld) 0.9 % Normal 0-1 [facility] Comment on above: Performed By: #### L 100.0100, L500.2500 ####[facility] [address] [place], [address] Eosinophils/100 WBC (Bld) 3.7 % Normal 0-5 [facility] Comment on above: Performed By: #### L 100.0100, L500.2500 ####[facility] [address] [place], [address] Erythrocyte distribution width (RBC) [Ratio] 15.4 % High 11.6-14.6 [facility] Comment on above: Performed By: #### L 100.0100, L500.2500 ####[facility] [address] [place], [address] Hematocrit (Bld) [Volume fraction] 26.6 % Low 37-47 [facility] Comment on above: Performed By: #### L 100.0100, L500.2500 ####[facility] [address] [place], [address] Hemoglobin (Bld) [Mass/Vol] 8.9 g/dL Low 12.0-15.0 [facility] Comment on above: Performed By: #### L 100.0100, L500.2500 ####[facility] [address] [place], [address] IG% 0.600 Normal 0.0-0.9 [facility] Comment on above: Result Comment: IG% - Immature Granulocytes (promyelocytes, myelocytes andmetamyelocytes) > 1% indicates that a LEFT SHIFT is Present. Performed By: #### L 100.0100, L500.2500 ####[facility] [address] [place], [address] Lymphocytes/100 WBC (Bld) 10.5 % Low 19-41 [facility] Comment on above: Performed By: #### L 100.0100, L500.2500 ####[facility] [address] [place], [address] MCH (RBC) [Entitic mass] 28.8 pg Normal 27.0-32.0 [facility] Comment on above: Performed By: #### L 100.0100, L500.2500 ####[facility] [address] [place], [address] MCHC (RBC) [Mass/Vol] 33.5 g/dL Normal 32-36 [facility] Comment on above: Performed By: #### L 100.0100, L500.2500 ####[facility] [address] [place], [address] MCV (RBC) [Entitic vol] 86.1 fL Normal 81-99 [facility] Comment on above: Performed By: #### L 100.0100, L500.2500 ####[facility] [address] [place], [address] Monocytes/100 WBC (Bld) 12.8 % High 0-10 [facility] Comment on above: Performed By: #### L 100.0100, L500.2500 ####[facility] [address] [place], [address] Neutrophils/100 WBC (Bld) 71.5 % High 47-70 [facility] Comment on above: Performed By: #### L 100.0100, L500.2500 ####[facility] [address] [place], [address] Nucleated RBC (Bld) [#/Vol] 0 10*3/uL Normal 0-5 [facility] Comment on above: Performed By: #### L 100.0100, L500.2500 ####[facility] [address] [place], [address] Platelet mean volume (Bld) [Entitic vol] 9.8 fL Normal 6.2-12.0 [facility] Comment on above: Performed By: #### L 100.0100, L500.2500 ####[facility] [address] [place], [address] Platelets (Bld) [#/Vol] 232 10*3/uL Normal 150-450 [facility] Comment on above: Performed By: #### L 100.0100, L500.2500 ####[facility] [address] [place], [address] RBC (Bld) [#/Vol] 3.09 10*6/uL Low 4.2-5.[address] [facility] Comment on above: Performed By: #### L 100.0100, L500.2500 ####[facility] [address] [place], [address] RDW SD 47.6 fl High 35.1-43.9 [facility] Comment on above: Performed By: #### L 100.0100, L500.2500 ####[facility] [address] [place], [address] WBC (Bld) [#/Vol] 7.8 10*3/uL Normal 4.4-11.0 [facility] Comment on above: Performed By: #### L 100.0100, L500.2500 ####[facility] [address] [place], [address] Eosinophil percentageOrdered By: Lamin Griffith on 03-24-2024 Eosinophils/100 WBC (Bld) 3.7 % 0-5 [facility] Gl[facility] deOrdered By: Brodie Swartz on 03-24-2024 Bedside Glucose (Misc Panel) 84 mg/dL 74-106 [facility] Comment on above: MANAGEMENT OF PATIEN T CARE PER NURSING PROTOCOL Immature granulocytes/100 WB C Auto (Bld)Ordered By: Lamin Griffith on 03-24-2024 Immature granulocytes/100 WBC (Bld) 0.600 % 0.0-0.9 [facility] Comment on above: IG% - Immature Granu locytes (promyelocytes, myelocytes and metamyelocytes) > 1% indicates that a LEFT SHIFT is Present. Lymphocytes Auto (Unsp spec) [#/Vol]Ordered By: Lamin Griffith on 03-24-2024 Lymphocytes (Bld) [#/Vol] 0.82 10*3/uL Low 0.83-4.51 [facility] Lymphocytes/100 WBC Auto (Un sp spec)Ordered By: Lamin Griffith on 03-24-2024 Lymphocytes/100 WBC (Bld) 10.5 % Low 19-41 [facility] Monocyte percentageOrdered B y: Lamin Griffith on 03-24-2024 Monocytes/100 WBC (Bld) 12.8 % High 0-10 [facility] Neutrophil percentageOrdered By: Lamin Griffith on 03-24-2024 Neutrophils/100 WBC (Bld) 71.5 % High 47-70 [facility] Nucleated red blood cell per centageOrdered By: Lamin Griffith on 03-24-2024 Nucleated RBC/100 WBC (Bld) [Ratio] 0 % 0-5 [facility] Basic Metabolic Profile (BMP )on 03-23-2024 BUN/CRE 19.2 RATIO Normal 10-20 [facility] Comment on above: Performed By: #### L 501.5200, L500.2500, L501.2300 ####[facility] [address] [place], [address] CA,Total 8.5 mg/dL Normal 8.5-10.1 [facility] Comment on above: Performed By: #### L 501.5200, L500.2500, L501.2300 ####[facility] [address] [place], [address] Chloride [Moles/Vol] 111 mmol/L High 98-107 [facility] Comment on above: Performed By: #### L 501.5200, L500.2500, L501.2300 ####[facility] [address] [place], [address] CO2 [Moles/Vol] 23.0 mmol/L Normal 21.0-32.0 [facility] Comment on above: Performed By: #### L 501.5200, L500.2500, L501.2300 ####[facility] [address] [place], [address] Creatinine [Mass/Vol] 0.57 mg/dL Normal 0.55-1.02 [facility] Comment on above: Result Comment: The validity of the calculated GFR GFRAA in patients over70 years has not been determined. Clinical correlation isessential. Performed By: #### L 501.5200, L500.2500, L501.2300 ####[facility] [address] [place], [address] ECRCL 44.08 ml/min Normal [facility] Comment on above: Performed By: #### L 501.5200, L500.2500, L501.2300 ####[facility] [address] [place], [address] EST GFR - AA 129 mL/min Normal >60 [facility] Comment on above: Result Comment: Afri can Finnish GFR Calc Performed By: #### L 501.5200, L500.2500, L501.2300 ####[facility] [address] [place], [address] GAP 4 Low 5-15 [facility] Comment on above: Performed By: #### L 501.5200, L500.2500, L501.2300 ####[facility] [address] [place], [address] GFR/1.73 sq M.predicted among non-blacks MDRD (S/P/Bld) [Vol rate/Area] 107 mL/min/{1.73_m2} Normal >60 [facility] Comment on above: Result Comment: Non- GFR Calc Performed By: #### L 501.5200, L500.2500, L501.2300 ####[facility] [address] [place], [address] Glucose [Mass/Vol] 91 mg/dL Normal 74-106 [facility] Comment on above: Performed By: #### L 501.5200, L500.2500, L501.2300 ####[facility] [address] [place], [address] Potassium [Moles/Vol] 3.3 mmol/L Low 3.5-5.1 [facility] Comment on above: Performed By: #### L 501.5200, L500.2500, L501.2300 ####[facility] [address] [place], [address] Sodium [Moles/Vol] 138 mmol/L Normal 136-145 [facility] Comment on above: Performed By: #### L 501.5200, L500.2500, L501.2300 ####[facility] [address] [place], [address] Urea nitrogen [Mass/Vol] 11 mg/dL Normal 7-18 [facility] Comment on above: Performed By: #### L 501.5200, L500.2500, L501.2300 ####[facility] [address] [place], [address] Bilirubin Test strip Ql (U)O rdered By: Lamin Griffith on 03-23-2024 Bilirubin Ql (U) Negative Negative [facility] CBC W/Diff, Automatedon 12-0 Absolute Lymph 0.82 X10 3/uL Low 0.83-4.51 [facility] Comment on above: Result Comment: NO S PEC RECEIVED Performed By: #### L 100.0100 ####[facility] [address] [place], [address] Absolute Neut 5.6 X10 3/uL Normal 2.0-7.7 [facility] Comment on above: Result Comment: NO S PEC RECEIVED Performed By: #### L 100.0100 ####[facility] [address] [place], [address] BASO# 0.05 X10 3/uL Normal [facility] Comment on above: Result Comment: NO S PEC RECEIVED Performed By: #### L 100.0100 ####[facility] [address] [place], [address] Basophils/100 WBC (Bld) 0.7 % Normal 0-1 [facility] Comment on above: Result Comment: NO S PEC RECEIVED Performed By: #### L 100.0100 ####[facility] [address] [place], [address] EOS# 0.14 X10 3/uL Normal [facility] Comment on above: Result Comment: NO S PEC RECEIVED Performed By: #### L 100.0100 ####[facility] [address] [place], [address] Eosinophils/100 WBC (Bld) 1.9 % Normal 0-5 [facility] Comment on above: Result Comment: NO S PEC RECEIVED Performed By: #### L 100.0100 ####[facility] [address] [place], [address] Erythrocyte distribution width (RBC) [Ratio] 15.1 % High 11.6-14.6 [facility] Comment on above: Result Comment: NO S PEC RECEIVED Performed By: #### L 100.0100 ####[facility] [address] [place], [address] Hematocrit (Bld) [Volume fraction] 28.2 % Low 37-47 [facility] Comment on above: Result Comment: NO S PEC RECEIVED Performed By: #### L 100.0100 ####[facility] [address] [place], [address] Hemoglobin (Bld) [Mass/Vol] 9.6 g/dL Low 12.0-15.0 [facility] Comment on above: Result Comment: NO S PEC RECEIVED Performed By: #### L 100.0100 ####[facility] [address] [place], [address] IG# 0.030 X10 3/uL High 0.0-0.0 [facility] Comment on above: Result Comment: NO S PEC RECEIVED Performed By: #### L 100.0100 ####[facility] [address] [place], [address] IG% 0.400 Normal 0.0-0.9 [facility] Comment on above: Result Comment: NO S PEC RECEIVEDIG% - Immature Granulocytes (promyelocytes, myelocytes andmetamyelocytes) > 1% indicates that a LEFT SHIFT is Present. Performed By: #### L 100.0100 ####[facility] [address] [place], [address] LYMPH# 0.82 X10 3/ul Low 0.83-4.51 [facility] Comment on above: Result Comment: NO S PEC RECEIVED Performed By: #### L 100.0100 ####[facility] [address] [place], [address] Lymphocytes/100 WBC (Bld) 11.0 % Low 19-41 [facility] Comment on above: Result Comment: NO S PEC RECEIVED Performed By: #### L 100.0100 ####[facility] [address] [place], [address] MCH (RBC) [Entitic mass] 28.5 pg Normal 27.0-32.0 [facility] Comment on above: Result Comment: NO S PEC RECEIVED Performed By: #### L 100.0100 ####[facility] [address] [place], [address] MCHC (RBC) [Mass/Vol] 34.0 g/dL Normal 32-36 [facility] Comment on above: Result Comment: NO S PEC RECEIVED Performed By: #### L 100.0100 ####[facility] [address] [place], [address] MCV (RBC) [Entitic vol] 83.7 fL Normal 81-99 [facility] Comment on above: Result Comment: NO S PEC RECEIVED Performed By: #### L 100.0100 ####[facility] [address] [place], [address] MONO # 0.84 X10 3/uL Normal [facility] Comment on above: Result Comment: NO S PEC RECEIVED Performed By: #### L 100.0100 ####[facility] [address] [place], [address] Monocytes/100 WBC (Bld) 11.2 % High 0-10 [facility] Comment on above: Result Comment: NO S PEC RECEIVED Performed By: #### L 100.0100 ####[facility] [address] [place], [address] Neutrophil # 5.59 X10 3/uL Normal 2.7-7.7 [facility] Comment on above: Result Comment: NO S PEC RECEIVED Performed By: #### L 100.0100 ####[facility] [address] [place], [address] Neutrophils/100 WBC (Bld) 74.8 % High 47-70 [facility] Comment on above: Result Comment: NO S PEC RECEIVED Performed By: #### L 100.0100 ####[facility] [address] [place], [address] Nucleated RBC (Bld) [#/Vol] 0 10*3/uL Normal 0-5 [facility] Comment on above: Result Comment: NO S PEC RECEIVED Performed By: #### L 100.0100 ####[facility] [address] [place], [address] Platelet mean volume (Bld) [Entitic vol] 9.5 fL Normal 6.2-12.0 [facility] Comment on above: Result Comment: NO S PEC RECEIVED Performed By: #### L 100.0100 ####[facility] [address] [place], [address] Platelets (Bld) [#/Vol] 199 10*3/uL Normal 150-450 [facility] Comment on above: Result Comment: NO S PEC RECEIVED Performed By: #### L 100.0100 ####[facility] [address] [place], [address] RBC (Bld) [#/Vol] 3.37 10*6/uL Low 4.2-5.[address] [facility] Comment on above: Result Comment: NO S PEC RECEIVED Performed By: #### L 100.0100 ####[facility] [address] [place], [address] RDW SD 46.1 fl High 35.1-43.9 [facility] Comment on above: Result Comment: NO S PEC RECEIVED Performed By: #### L 100.0100 ####[facility] [address] [place], [address] WBC (Bld) [#/Vol] 7.5 10*3/uL Normal 4.4-11.0 [facility] Comment on above: Result Comment: NO S PEC RECEIVED Performed By: #### L 100.0100 ####[facility] [address] [place], [address] EGD Reporton 03-23-2024 EGD Report Normal [facility] Epithelial cells.squamous LM Ql (Urine sed)Ordered By: Lamin Griffith on 03-23-2024 Epithelial cells.squamous LM.HPF (Urine sed) [#/Area] 0 /[HPF] 5-10 [facility] Glucose Ql (U)Ordered By: Jay Griffith on 03-23-2024 Urine Glucose (UA) Normal mg/dl Normal [facility] Ketones Test strip Ql (U)Ord ered By: Lamin Griffith on 03-23-2024 Ketones Ql (U) 50 mg/dl High Negative [facility] MR/POSTOP.ANEon 03-23-2024 MR/POSTOP.ANE Normal [facility] MR/[id number] 03-23-2024 MR/POSTOPAN2 Normal [facility] Magnesiumon 03-23-2024 Magnesium [Mass/Vol] 1.9 mg/dL Normal 1.6-2.6 [facility] Comment on above: Performed By: #### L 501.5200, L500.2500, L501.2300 ####[facility] [address] [place], [address] Magnesium measurementOrdered By: Lamin Jacobsen on 03-23-2024 Magnesium [Mass/Vol] 1.9 mg/dL 1.6-2.6 [facility] Microscopic analysis of urin e for red blood cells (RBC)Ordered By: Lamin Griffith on 03-23-2024 Urine RBC > 100 SEEN /hpf 0-5 [facility] Mucus LM Ql (Urine sed)Order ed By: Lamin Griffith on 03-23-2024 Mucus Ql (Urine sed) 0 SEEN /hpf [facility] Nitrite Test strip Ql (U)Ord ered By: Lamin Griffith on 03-23-2024 Nitrite Ql (U) Positive High Negative [facility] Phosphoruson 03-23-2024 Phosphate [Mass/Vol] 2.3 mg/dL Low 2.5-4.9 [facility] Comment on above: Performed By: #### L 501.5200, L500.2500, L501.2300 ####[facility] [address] [place], [address] Phosphorus measurementOrdere d By: Lamin Jacobsen on 03-23-2024 Phosphorus Level 2.3 mg/dL Low 2.5-4.9 [facility] Protein Test strip Ql (U)Ord ered By: Lamin Griffith on 03-23-2024 Protein Ql (U) 100 mg/dl High Negative [facility] Urinalysis, Completeon 03-23 RBC > 100 SEEN Normal 0-5 [facility] Comment on above: Order Comment: DALIA TER SPECIMEN Performed By: #### L 400.0001, M100.2200 ####[facility] [address] [place], [address] WBC >100 SEEN Normal 0-5 [facility] Comment on above: Order Comment: DALIA TER SPECIMEN Performed By: #### L 400.0001, M100.0 ####[facility] [address] [place], [address] BACTERIA 0 SEEN Normal None Seen [facility] Comment on above: Order Comment: DALIA TER SPECIMEN Performed By: #### L 400.0001, M100.2200 ####[facility] [address] [place], [address] EPI,SQUAMOUS 0 SEEN Normal 5-10 [facility] Comment on above: Order Comment: DALIA TER SPECIMEN Performed By: #### L 400.0001, M100.0 ####[facility] [address] [place], [address] Mucus Ql (Urine sed) 0 SEEN Normal [facility] Comment on above: Order Comment: DALIA TER SPECIMEN Performed By: #### L 400.0001, M100.0 ####[facility] [address] [place], [address] Urine blood detectionOrdered By: Lamin Griffith on 03-23-2024 Urine Occult Blood 250 /ul High Negative [facility] Urine clarityOrdered By: Jed Griffith on 03-23-2024 Clarity (U) Cloudy Clear [facility] Urine color determinationOrd ered By: Lamin Griffith on 03-23-2024 Color (U) Yellow Yellow [facility] Urine cultureOrdered By: Jed Griffith on 03-23-2024 Bacteria identified Cx Nom (U) Klebsiella pneumoniae sp pneum Abnormal [facility] Urine leukocyte esterase det ection by dipstickOrdered By: Lamin Griffith on 03-23-2024 Leukocyte esterase Test strip Ql (U) 500 /ul High Negative [facility] Urine pHOrdered By: Lamin berkowitz on 03-23-2024 pH (U) 6.0 [pH] 5.0 - 8.0 [facility] Urine sediment bacteria coun t by microscopy (number/high power field)Ordered By: Lamin Griffith on 03-23-2024 Bacteria LM.HPF (Urine sed) [#/Area] 0 /[HPF] None Seen [facility] Urine specific gravity measu rementOrdered By: Lamin Griffith on 03-23-2024 Specific gravity (U) [Rel density] 1.015 1.002-1.030 [facility] Urobilinogen Ql (U)Ordered B y: Lamin Griffith on 03-23-2024 Urine Urobilinogen Normal mg/dl Normal [facility] White blood cell countOrdere d By: Lamin Griffith on 03-23-2024 Urine WBC >100 SEEN /hpf 0-5 [facility] 1,25-dihydroxyvitamin D3 [Ma ss/Vol]Ordered By: Lamin Jacobsen on 03-22-2024 Vitamin D 1,25-Dihydroxy 23.4 pg/mL Low 24.8-81.5 [facility] Comment on above: Performed at: [address] [id number] Director: Georges Rabago MD, Phone: [phone] Albumin to globulin ratioOrd ered By: Lamin Jacobsen on 03-22-2024 Albumin/Globulin [Mass ratio] 1.2 {ratio} 0.9-2.4 [facility] Bilirubin, totalOrdered By: Lamin Jacobsen on 03-22-2024 Bilirubin [Mass/Vol] 0.70 mg/dL 0.20-1.00 [facility] Comment on above: For patients on eltr ombopag therapy, use of Dimension Groom TBIL is not recommended. CBC W/Diff, Automatedon PATH REV Reviewed Normal [facility] Comment on above: Result Comment: Norm ocytic anemia.Clinical correlation suggested.Prashant Rodriguez D.O. 03/22/24 AMENDED REPORT 03/22/24 1443 PATH REV previously reported as: August Performed By: #### L 100.0100, L503.6005, L501.4020, BTS, L500.2500 ####[facility] [address] [place], [address] Absolute Lymph 1.07 X10 3/uL Normal 0.83-4.51 [facility] Comment on above: Performed By: #### L 501.2300, L501.5200, L500.4050, L501.9520, L100.0100 ####[facility] [address] [place], [address] Absolute Neut 5.7 X10 3/uL Normal 2.0-7.7 [facility] Comment on above: Performed By: #### L 501.2300, L501.5200, L500.4050, L501.9520, L100.0100 ####[facility] [address] [place], [address] Basophils/100 WBC (Bld) 0.6 % Normal 0-1 [facility] Comment on above: Performed By: #### L 501.2300, L501.5200, L500.4050, L501.9520, L100.0100 ####[facility] [address] [place], [address] Eosinophils/100 WBC (Bld) 0.8 % Normal 0-5 [facility] Comment on above: Performed By: #### L 501.2300, L501.5200, L500.4050, L501.9520, L100.0100 ####[facility] [address] [place], [address] Erythrocyte distribution width (RBC) [Ratio] 15.1 % High 11.6-14.6 [facility] Comment on above: Performed By: #### L 501.2300, L501.5200, L500.4050, L501.9520, L100.0100 ####[facility] [address] [place], [address] Hematocrit (Bld) [Volume fraction] 20.4 % Low 37-47 [facility] Comment on above: Performed By: #### L 501.2300, L501.5200, L500.4050, L501.9520, L100.0100 ####[facility] [address] [place], [address] Hemoglobin (Bld) [Mass/Vol] 6.7 g/dL Low 12.0-15.0 [facility] Comment on above: Performed By: #### L 501.2300, L501.5200, L500.4050, L501.9520, L100.0100 ####[facility] [address] [place], [address] IG% 0.400 Normal 0.0-0.9 [facility] Comment on above: Result Comment: IG% - Immature Granulocytes (promyelocytes, myelocytes andmetamyelocytes) > 1% indicates that a LEFT SHIFT is Present. Performed By: #### L 501.2300, L501.5200, L500.4050, L501.9520, L100.0100 ####[facility] [address] [place], [address] Lymphocytes/100 WBC (Bld) 13.8 % Low 19-41 [facility] Comment on above: Performed By: #### L 501.2300, L501.5200, L500.4050, L501.9520, L100.0100 ####[facility] [address] [place], [address] MCH (RBC) [Entitic mass] 27.9 pg Normal 27.0-32.0 [facility] Comment on above: Performed By: #### L 501.2300, L501.5200, L500.4050, L501.9520, L100.0100 ####[facility] [address] [place], [address] MCHC (RBC) [Mass/Vol] 32.8 g/dL Normal 32-36 [facility] Comment on above: Performed By: #### L 501.2300, L501.5200, L500.4050, L501.9520, L100.0100 ####[facility] [address] [place], [address] MCV (RBC) [Entitic vol] 85.0 fL Normal 81-99 [facility] Comment on above: Performed By: #### L 501.2300, L501.5200, L500.4050, L501.9520, L100.0100 ####[facility] [address] [place], [address] Monocytes/100 WBC (Bld) 10.7 % High 0-10 [facility] Comment on above: Performed By: #### L 501.2300, L501.5200, L500.4050, L501.9520, L100.0100 ####[facility] [address] [place], [address] Neutrophils/100 WBC (Bld) 73.7 % High 47-70 [facility] Comment on above: Performed By: #### L 501.2300, L501.5200, L500.4050, L501.9520, L100.0100 ####[facility] [address] [place], [address] Nucleated RBC (Bld) [#/Vol] 0 10*3/uL Normal 0-5 [facility] Comment on above: Performed By: #### L 501.2300, L501.5200, L500.4050, L501.9520, L100.0100 ####[facility] [address] [place], [address] Platelet mean volume (Bld) [Entitic vol] 9.7 fL Normal 6.2-12.0 [facility] Comment on above: Performed By: #### L 501.2300, L501.5200, L500.4050, L501.9520, L100.0100 ####[facility] [address] [place], [address] Platelets (Bld) [#/Vol] 170 10*3/uL Normal 150-450 [facility] Comment on above: Performed By: #### L 501.2300, L501.5200, L500.4050, L501.9520, L100.0100 ####[facility] [address] [place], [address] RBC (Bld) [#/Vol] 2.40 10*6/uL Low 4.2-5.[address] [facility] Comment on above: Performed By: #### L 501.2300, L501.5200, L500.4050, L501.9520, L100.0100 ####[facility] [address] [place], [address] RDW SD 46.7 fl High 35.1-43.9 [facility] Comment on above: Performed By: #### L 501.2300, L501.5200, L500.4050, L501.9520, L100.0100 ####[facility] [address] [place], [address] WBC (Bld) [#/Vol] 7.7 10*3/uL Normal 4.4-11.0 [facility] Comment on above: Performed By: #### L 501.2300, L501.5200, L500.4050, L501.9520, L100.0100 ####[facility] [address] [place], [address] Comprehensive Metabolic Prof ilon 03-22-2024 Albumin [Mass/Vol] 2.4 g/dL Low 3.2-5.0 [facility] Comment on above: Performed By: #### L 501.2300, L501.5200, L500.4050, L501.9520, L100.0100 ####[facility] [address] [place], [address] Albumin/Globulin [Mass ratio] 1.2 {ratio} Normal 0.9-2.4 [facility] Comment on above: Performed By: #### L 501.2300, L501.5200, L500.4050, L501.9520, L100.0100 ####[facility] [address] [place], [address] ALK P 39 U/L Low 45-117 [facility] Comment on above: Performed By: #### L 501.2300, L501.5200, L500.4050, L501.9520, L100.0100 ####[facility] [address] [place], [address] ALT [Catalytic activity/Vol] 12 U/L Low 13-56 [facility] Comment on above: Performed By: #### L 501.2300, L501.5200, L500.4050, L501.9520, L100.0100 ####[facility] [address] [place], [address] AST [Catalytic activity/Vol] 15 U/L Normal 15-37 [facility] Comment on above: Performed By: #### L 501.2300, L501.5200, L500.4050, L501.9520, L100.0100 ####[facility] [address] [place], [address] Bilirubin [Mass/Vol] 0.70 mg/dL Normal 0.20-1.00 [facility] Comment on above: Result Comment: For patients on eltrombopag therapy, use of Dimension Groom TBIL is not recommended. Performed By: #### L 501.2300, L501.5200, L500.4050, L501.9520, L100.0100 ####[facility] [address] [place], [address] BUN/CRE 37.3 RATIO High 10-20 [facility] Comment on above: Performed By: #### L 501.2300, L501.5200, L500.4050, L501.9520, L100.0100 ####[facility] [address] [place], [address] CA,Total 7.6 mg/dL Low 8.5-10.1 [facility] Comment on above: Performed By: #### L 501.2300, L501.5200, L500.4050, L501.9520, L100.0100 ####[facility] [address] [place], [address] Chloride [Moles/Vol] 116 mmol/L High 98-107 [facility] Comment on above: Performed By: #### L 501.2300, L501.5200, L500.4050, L501.9520, L100.0100 ####[facility] [address] [place], [address] CO2 [Moles/Vol] 21.0 mmol/L Normal 21.0-32.0 [facility] Comment on above: Performed By: #### L 501.2300, L501.5200, L500.4050, L501.9520, L100.0100 ####[facility] [address] [place], [address] Creatinine [Mass/Vol] 0.64 mg/dL Normal 0.55-1.02 [facility] Comment on above: Result Comment: The validity of the calculated GFR GFRAA in patients over70 years has not been determined. Clinical correlation isessential. Performed By: #### L 501.2300, L501.5200, L500.4050, L501.9520, L100.0100 ####[facility] [address] [place], [address] ECRCL 44.08 ml/min Normal [facility] Comment on above: Performed By: #### L 501.2300, L501.5200, L500.4050, L501.9520, L100.0100 ####[facility] [address] [place], [address] EST GFR - AA 113 mL/min Normal >60 [facility] Comment on above: Result Comment: Afri can Finnish GFR Calc Performed By: #### L 501.2300, L501.5200, L500.4050, L501.9520, L100.0100 ####[facility] [address] [place], [address] GAP 6 Normal 5-15 [facility] Comment on above: Performed By: #### L 501.2300, L501.5200, L500.4050, L501.9520, L100.0100 ####[facility] [address] [place], [address] GFR/1.73 sq M.predicted among non-blacks MDRD (S/P/Bld) [Vol rate/Area] 93 mL/min/{1.73_m2} Normal >60 [facility] Comment on above: Result Comment: Non- GFR Calc Performed By: #### L 501.2300, L501.5200, L500.4050, L501.9520, L100.0100 ####[facility] [address] [place], [address] Globulin (S) [Mass/Vol] 2.0 g/dL Low 2.2-4.2 [facility] Comment on above: Performed By: #### L 501.2300, L501.5200, L500.4050, L501.9520, L100.0100 ####[facility] [address] [place], [address] Glucose [Mass/Vol] 106 mg/dL Normal 74-106 [facility] Comment on above: Result Comment: Fast ing Glucose result from 100 to 125 mg/dLsuggests IMPAIRED HOMEOSTASIS per A.D.A. criteria. Performed By: #### L 501.2300, L501.5200, L500.4050, L501.9520, L100.0100 ####[facility] [address] [place], [address] Potassium [Moles/Vol] 4.3 mmol/L Normal 3.5-5.1 [facility] Comment on above: Performed By: #### L 501.2300, L501.5200, L500.4050, L501.9520, L100.0100 ####[facility] [address] [place], [address] Sodium [Moles/Vol] 143 mmol/L Normal 136-145 [facility] Comment on above: Performed By: #### L 501.2300, L501.5200, L500.4050, L501.9520, L100.0100 ####[facility] [address] [place], [address] T PROT 4.4 g/dL Low 6.4-8.2 [facility] Comment on above: Performed By: #### L 501.2300, L501.5200, L500.4050, L501.9520, L100.0100 ####[facility] [address] [place], [address] Urea nitrogen [Mass/Vol] 24 mg/dL High 7-18 [facility] Comment on above: Performed By: #### L 501.2300, L501.5200, L500.4050, L501.9520, L100.0100 ####[facility] [address] [place], [address] HH, Hemoglobin AND Hematocri ton 03-22-2024 Hematocrit (Bld) [Volume fraction] 25.1 % Low 37-47 [facility] Comment on above: Performed By: #### L 100.0600 ####[facility] [address] [place], [id number] Hemoglobin (Bld) [Mass/Vol] 8.7 g/dL Low 12.0-15.0 [facility] Comment on above: Performed By: #### L 100.0600 ####[facility] [address] [place], [id number] Laboratory - Chemistry and C hemistry - challengeOrdered By: Lamin Jacobsen on 03-22-2024 AST [Catalytic activity/Vol] 15 U/L 15-37 [facility] Lactic acid measurementOrder ed By: Sangita Lima on 03-22-2024 Lactate [Moles/Vol] 2.3 mmol/L Invalid Interpretation Code 0.4-1.9 [facility] Comment on above: Critical Result(s) C alled at: 01:36:36 03/22/2024 by: Chelly correa. Results read back by same. Result Comment: Crit ical Result(s) Called at: 01:36:36 03/22/2024 by:Chelly correa. Results read back by same. Performed By: #### L 503.6009 ####[facility] [address] [place], [place], [id number] MR/CON.PCM.GIon 03-22-2024 MR/CON.PCM.GI Normal [facility] Magnesiumon 03-22-2024 Magnesium [Mass/Vol] 1.7 mg/dL Normal 1.6-2.6 [facility] Comment on above: Performed By: #### L 501.2300, L501.5200, L500.4050, L501.9520, L100.0100 ####[facility] [address] [place], [address] Phosphoruson 03-22-2024 Phosphate [Mass/Vol] 2.5 mg/dL Normal 2.5-4.9 [facility] Comment on above: Performed By: #### L 501.2300, L501.5200, L500.4050, L501.9520, L100.0100 ####[facility] [address] [place], [place], [address] Serum globulin measurementOr dered By: Lamin Jacobsen on 03-22-2024 Globulin (S) [Mass/Vol] 2.0 g/dL Low 2.2-4.2 [facility] Serum or plasma alanine canada otransferase (ALT) measurementOrdered By: Lamin Jacobsen on 03-22-2024 ALT [Catalytic activity/Vol] 12 U/L Low 13-56 [facility] Serum or plasma albumin july urement (mass/volume)Ordered By: Lamin Jacobsen on 03-22-2024 Albumin [Mass/Vol] 2.4 g/dL Low 3.2-5.0 [facility] Serum or plasma alkaline kaela sphatase measurementOrdered By: Lamin Jacobsen on 03-22-2024 ALP [Catalytic activity/Vol] 39 U/L Low 45-117 [facility] TSH QnOrdered By: Lamin holliday on 03-22-2024 Thyroid Stimulating Hormone (TSH) 1.290 uIU/mL 0.358-3.740 [facility] Thyroid Stim Hormone (TSH)on 03-22-2024 TSH 1.290 uIU/mL Normal 0.358-3.740 [facility] Comment on above: Performed By: #### L 501.2300, L501.5200, L500.4050, L501.9520, L100.0100 ####[facility] [address] [place], [address] Total proteinOrdered By: Jed Jacobsen on 03-22-2024 Protein [Mass/Vol] 4.4 g/dL Low 6.4-8.2 [facility] Vitamin B12 measurementOrder ed By: Lamin Jacobsen on 03-22-2024 Cobalamin (Vitamin B12) [Mass/Vol] 473 pg/mL Normal 211-911 [facility] Comment on above: Performed By: #### L 503.0105 ####[facility] [address] [place], [address] 12 Lead EKGon 03-21-2024 12 Lead EKG Normal [facility] BRCon 03-21-2024 RC Normal [facility] Comment on above: Result Comment: [id number] OP RC TRANSFUSED 03/21/24 [id number] OP RC TRANSFUSED 03/22/24 0114 Performed By: #### B RC ####[facility] [address] [place], [address] Result Comment: [id number] OP RC TRANSFUSED 03/22/24 0547 Basic Metabolic Profile (BMP )on 03-21-2024 BUN/CRE 36.7 RATIO High 10-20 [facility] Comment on above: Order Comment: 'TROP ' Serial specimen #1, #2 or #3: 1 Performed By: #### L 100.0100, L503.6005, L501.4020, BTS, L500.2500 ####[facility] [address] [place], [address] CA,Total 8.8 mg/dL Normal 8.5-10.1 [facility] Comment on above: Order Comment: 'TROP ' Serial specimen #1, #2 or #3: 1 Performed By: #### L 100.0100, L503.6005, L501.4020, BTS, L500.2500 ####[facility] [address] [place], [address] Chloride [Moles/Vol] 110 mmol/L High 98-107 [facility] Comment on above: Order Comment: 'TROP ' Serial specimen #1, #2 or #3: 1 Performed By: #### L 100.0100, L503.6005, L501.4020, BTS, L500.2500 ####[facility] [address] [place], [address] CO2 [Moles/Vol] 24.0 mmol/L Normal 21.0-32.0 [facility] Comment on above: Order Comment: 'TROP ' Serial specimen #1, #2 or #3: 1 Performed By: #### L 100.0100, L503.6005, L501.4020, BTS, L500.2500 ####[facility] [address] [place], [address] Creatinine [Mass/Vol] 0.90 mg/dL Normal 0.55-1.02 [facility] Comment on above: Order Comment: 'TROP ' Serial specimen #1, #2 or #3: 1 Result Comment: The validity of the calculated GFR GFRAA in patients over70 years has not been determined. Clinical correlation isessential. Performed By: #### L 100.0100, L503.6005, L501.4020, BTS, L500.2500 ####[facility] [address] [place], [address] ECRCL 39.18 ml/min Normal [facility] Comment on above: Order Comment: 'TROP ' Serial specimen #1, #2 or #3: 1 Performed By: #### L 100.0100, L503.6005, L501.4020, BTS, L500.2500 ####[facility] [address] [place], [address] EST GFR - AA 77 mL/min Normal >60 [facility] Comment on above: Order Comment: 'TROP ' Serial specimen #1, #2 or #3: 1 Result Comment: Afri can Finnish GFR Calc Performed By: #### L 100.0100, L503.6005, L501.4020, BTS, L500.2500 ####[facility] [address] [place], [address] GAP 7 Normal 5-15 [facility] Comment on above: Order Comment: 'TROP ' Serial specimen #1, #2 or #3: 1 Performed By: #### L 100.0100, L503.6005, L501.4020, BTS, L500.2500 ####[facility] [address] [place], [address] GFR/1.73 sq M.predicted among non-blacks MDRD (S/P/Bld) [Vol rate/Area] 63 mL/min/{1.73_m2} Normal >60 [facility] Comment on above: Order Comment: 'TROP ' Serial specimen #1, #2 or #3: 1 Result Comment: Non- GFR Calc Performed By: #### L 100.0100, L503.6005, L501.4020, BTS, L500.2500 ####[facility] [address] [place], [address] Glucose [Mass/Vol] 164 mg/dL High 74-106 [facility] Comment on above: Order Comment: 'TROP ' Serial specimen #1, #2 or #3: 1 Result Comment: Fast ing Glucose result greater than or equal to 126 mg/dLsuggests DIABETES MELLITUS per A.D.A. criteria. Performed By: #### L 100.0100, L503.6005, L501.4020, BTS, L500.2500 ####[facility] [address] [place], [address] Potassium [Moles/Vol] 4.2 mmol/L Normal 3.5-5.1 [facility] Comment on above: Order Comment: 'TROP ' Serial specimen #1, #2 or #3: 1 Performed By: #### L 100.0100, L503.6005, L501.4020, BTS, L500.2500 ####[facility] [address] [place], [address] Sodium [Moles/Vol] 141 mmol/L Normal 136-145 [facility] Comment on above: Order Comment: 'TROP ' Serial specimen #1, #2 or #3: 1 Performed By: #### L 100.0100, L503.6005, L501.4020, BTS, L500.2500 ####[facility] [address] [place], [address] Urea nitrogen [Mass/Vol] 33 mg/dL High 7-18 [facility] Comment on above: Order Comment: 'TROP ' Serial specimen #1, #2 or #3: 1 Performed By: #### L 100.0100, L503.6005, L501.4020, BTS, L500.2500 ####[facility] [address] [place], [address] CTA Abd/Pelvis W/WO Contrast on 03-21-2024 CTA Abd/Pelvis W/WO Contrast Normal [facility] Emergency Department Summary on 03-21-2024 Emergency Department Summary Normal [facility] Ferritinon 03-21-2024 Ferritin [Mass/Vol] 12 ng/mL Normal [facility] Comment on above: Order Comment: Has P atient had X-rays with Contrast this admission? NN Performed By: #### L 506.0250, L503.6550, L503.6030 ####[facility] [address] [place], [address] Ferritin measurementOrdered By: Lamin Jacobsen on 03-21-2024 Ferritin [Mass/Vol] 12 ng/mL [facility] [facility] Fol[facility], (Folic Acid)on FOLATES 21.60 ng/mL Normal 3.1-55.4 [facility] Comment on above: Order Comment: Has P atient had X-rays with Contrast this admission? NN Performed By: #### L 506.0250, L503.6550, L503.6030 ####[facility] [address] [place], [address] Folic acid measurementOrdere d By: Lamin Jacobsen on 03-21-2024 Folate 21.60 ng/mL 3.1-55.4 [facility] H AND P Exam - Hospitaliston 03-21-2024 H&P Exam - Hospitalist Normal [facility] Hypochromia Ql (Bld)Ordered By: Sangita Lima on 03-21-2024 Hypochromasia 3+ [facility] Iron (Unsp spec) [Mass/Mass] Ordered By: Lamin Jacobsen on 03-21-2024 Iron [Mass/Vol] 10 ug/dL Low 50-170 [facility] Iron saturation [Mass fracti on]Ordered By: Lamin Jacobsen on 03-21-2024 Iron Saturation 2.6 % Low 15.0-55.0 [facility] Iron+Iron Binding Capacityon 03-21-2024 Iron [Mass/Vol] 10 ug/dL Low 50-170 [facility] Comment on above: Order Comment: Has Miguel kenney had X-rays with Contrast this admission? NN Performed By: #### L 506.0250, L503.6550, L503.6030 ####[facility] [address] [place], [address] IRON SATURATION 2.6 Low 15.0-55.0 [facility] Comment on above: Order Comment: Has Miguel kenney had X-rays with Contrast this admission? NN Performed By: #### L 506.0250, L503.6550, L503.6030 ####[facility] [address] [place], [address] TIBC 380 ug/dL Normal 250-450 [facility] Comment on above: Order Comment: Has Miguel kenney had X-rays with Contrast this admission? NN Performed By: #### L 506.0250, L503.6550, L503.6030 ####[facility] [address] [place], [address] L501.4020on 03-21-2024 TROPONIN-I HS 12 pg/mL Normal 3.0-54.0 [facility] Comment on above: Order Comment: 'TROP ' Serial specimen #1, #2 or #3: 1 Result Comment: Summer maher Note: New Test Units and Gender Specific Reference Ranges. For more information see Policy Stat Procedure Groom High Sensitivity Troponin (TNIH) and attachments. Performed By: #### L 100.0100, L503.6005, L501.4020, BTS, L500.2500 ####[facility] [address] [place], [address] Lactic Acidon 03-21-2024 Lactate [Moles/Vol] 2.0 mmol/L Normal 0.4-1.[address] [facility] Comment on above: Order Comment: Y Result Comment: Crit ical Result(s) Called at: 21:57:05 03/21/2024 by: MARGARET. Results read back by Willie THAKKAR Performed By: #### L 100.0100, L503.6005, L501.4020, BTS, L500.2500 ####[facility] [address] [place], [address] Manual differential comment Mark (Bld) [Interp]Ordered By: Sangita Lima on 03-21-2024 Differential Comment See comment [facility] Comment on above: ANEMIA Ovalocytes LM Ql (Bld)Ordere d By: Sangita Lima on 03-21-2024 Ovalocytes RARE [facility] Pathologist review Mark (Unsp spec) [Interp]Ordered By: Sangita Lima on 03-21-2024 Differential Pathologist's Review Reviewed [facility] Comment on above: Previous reported re sult: Kira parra Edited by: FIDENCIO on 03/22/24:1443Normocytic anemia.Clinical correlation suggested.Prashant Rodriguez D.O. 03/22/24 AMENDED REPORT 03/22/24 1443 PATH REV previously reported as: Kira parra Platelets LM Ql (Bld)Ordered By: Sangita Lima on 03-21-2024 Platelet Estimate ADEQUATE ADEQ [facility] TIBCOrdered By: Lamin reyes on 03-21-2024 Total Iron Binding Capacity 380 ug/dL 250-450 [facility] Troponin IOrdered By: Sangita Lima on 03-21-2024 Troponin I High Sensitivity 12 pg/mL 3.0-54.0 [facility] Comment on above: Please Note: New Letty t Units and Gender Specific Reference Ranges. For more information see Policy Stat Procedure Groom High Sensitivity Troponin (TNIH) and attachments. Type AND Screenon 03-21-2024 ABO and Rh group Nom (Bld) Blood group O Rh(D) positive Normal [facility] Comment on above: Order Comment: HGI Performed By: #### L 100.0100, L503.6005, L501.4020, BTS, L500.2500 ####[facility] [address] [place], [address] Urinalysis, Completeon 03-21 BACTERIA Normal None Seen [facility] Comment on above: Order Comment: CLEAN CATCH Result Comment: PERF ORMED ON 03/23 Performed By: #### L 400.0001 ####[facility] [address] [place], [address] BILIRUBIN URINE Normal Negative [facility] Comment on above: Order Comment: CLEAN CATCH Result Comment: PERF ORMED ON 03/23 Performed By: #### L 400.0001 ####[facility] [address] [place], [address] Clarity (U) Normal Clear [facility] Comment on above: Order Comment: CLEAN CATCH Result Comment: PERF ORMED ON 03/23 Performed By: #### L 400.0001 ####[facility] [address] [place], [address] Color (U) Normal Yellow [facility] Comment on above: Order Comment: CLEAN CATCH Result Comment: PERF ORMED ON 03/23 Performed By: #### L 400.0001 ####[facility] [address] [place], [address] EPI,SQUAMOUS Normal 5-10 [facility] Comment on above: Order Comment: CLEAN CATCH Result Comment: PERF ORMED ON 03/23 Performed By: #### L 400.0001 ####[facility] [address] [place], [address] GLUCOSE, UR Normal Normal [facility] Comment on above: Order Comment: CLEAN CATCH Result Comment: PERF ORMED ON 03/23 Performed By: #### L 400.0001 ####[facility] [address] [place], [address] KETONE UR Normal Negative [facility] Comment on above: Order Comment: CLEAN CATCH Result Comment: PERF ORMED ON 03/23 Performed By: #### L 400.0001 ####[facility] [address] [place], [address] LEUK ESTERASE Normal Negative [facility] Comment on above: Order Comment: CLEAN CATCH Result Comment: PERF ORMED ON 03/23 Performed By: #### L 400.0001 ####[facility] [address] [facility] [address] Mucus Ql (Urine sed) Normal [facility] Comment on above: Order Comment: CLEAN CATCH Result Comment: PERF ORMED ON 03/23 Performed By: #### L 400.0001 ####[facility] [address] [place] [id number] Nitrite Ql (U) Normal Negative [facility] Comment on above: Order Comment: CLEAN CATCH Result Comment: PERF ORMED ON 03/23 Performed By: #### L 400.0001 ####[facility] [address] [place], [address] OCCULT BLOOD-UR Normal Negative [facility] Comment on above: Order Comment: CLEAN CATCH Result Comment: PERF ORMED ON 03/23 Performed By: #### L 400.0001 ####[facility] [address] [facility] [address] pH UR Normal 5.0 - 8.0 [facility] Comment on above: Order Comment: CLEAN CATCH Result Comment: PERF ORMED ON 03/23 Performed By: #### L 400.0001 ####[facility] [address] [facility] [address] PROT DIPSTX Normal Negative [facility] Comment on above: Order Comment: CLEAN CATCH Result Comment: PERF ORMED ON 03/23 Performed By: #### L 400.0001 ####[facility] [address] [place], [address] RBC Normal 0-5 [facility] Comment on above: Order Comment: CLEAN CATCH Result Comment: PERF ORMED ON 03/23 Performed By: #### L 400.0001 ####[facility] [address] [place], [address] SP.GR. DIPSTX Normal 1.002-1.030 [facility] Comment on above: Order Comment: CLEAN CATCH Result Comment: PERF ORMED ON 03/23 Performed By: #### L 400.0001 ####[facility] [address] [place], [address] UR Preservative Normal [facility] Comment on above: Order Comment: CLEAN CATCH Result Comment: PERF ORMED ON 03/23 Performed By: #### L 400.0001 ####[facility] [address] [place], [address] UROBILI Normal Normal [facility] Comment on above: Order Comment: CLEAN CATCH Result Comment: PERF ORMED ON 03/23 Performed By: #### L 400.0001 ####[facility] [address] [place], [address] WBC Normal 0-5 [facility] Comment on above: Order Comment: CLEAN CATCH Result Comment: PERF ORMED ON 03/23 Performed By: #### L 400.0001 ####[facility] [address] [place], [address] Abdomen Single Viewon 2023 Abdomen Single View Normal [facility] Absolute neutrophil countOrd ered By: Jono Casanova on 03-18-2024 Neutrophils (Bld) [#/Vol] 7.7 10*3/uL 2.0-7.7 [facility] Basic Metabolic Profile (BMP )on 03-18-2024 BUN/CRE 16.4 RATIO Normal 10-20 [facility] Comment on above: Performed By: #### L 500.2500, L100.0100 ####[facility] [address] [place], [address] CA,Total 9.8 mg/dL Normal 8.5-10.1 [facility] Comment on above: Performed By: #### L 500.2500, L100.0100 ####[facility] [address] [place], [address] Chloride [Moles/Vol] 100 mmol/L Normal 98-107 [facility] Comment on above: Performed By: #### L 500.2500, L100.0100 ####[facility] [address] [place], [address] CO2 [Moles/Vol] 25.0 mmol/L Normal 21.0-32.0 [facility] Comment on above: Performed By: #### L 500.2500, L100.0100 ####[facility] [address] [place], [address] Creatinine [Mass/Vol] 0.92 mg/dL Normal 0.55-1.02 [facility] Comment on above: Result Comment: The validity of the calculated GFR GFRAA in patients over70 years has not been determined. Clinical correlation isessential. Performed By: #### L 500.2500, L100.0100 ####[facility] [address] [place], [address] ECRCL 38.33 ml/min Normal [facility] Comment on above: Performed By: #### L 500.2500, L100.0100 ####[facility] [address] [place], [address] EST GFR - AA 75 mL/min Normal >60 [facility] Comment on above: Result Comment: Afri can Finnish GFR Calc Performed By: #### L 500.2500, L100.0100 ####[facility] [address] [place], [address] GAP 10 Normal 5-15 [facility] Comment on above: Performed By: #### L 500.2500, L100.0100 ####[facility] [address] [place], [address] GFR/1.73 sq M.predicted among non-blacks MDRD (S/P/Bld) [Vol rate/Area] 62 mL/min/{1.73_m2} Normal >60 [facility] Comment on above: Result Comment: Non- GFR Calc Performed By: #### L 500.2500, L100.0100 ####[facility] [address] [place], [address] Glucose [Mass/Vol] 130 mg/dL High 74-106 [facility] Comment on above: Result Comment: Fast ing Glucose result greater than or equal to 126 mg/dLsuggests DIABETES MELLITUS per A.D.A. criteria. Performed By: #### L 500.2500, L100.0100 ####[facility] [address] [place], [address] Potassium [Moles/Vol] 3.8 mmol/L Normal 3.5-5.1 [facility] Comment on above: Performed By: #### L 500.2500, L100.0100 ####[facility] [address] [place], [address] Sodium [Moles/Vol] 135 mmol/L Low 136-145 [facility] Comment on above: Performed By: #### L 500.2500, L100.0100 ####[facility] [address] [place], [address] Urea nitrogen [Mass/Vol] 15 mg/dL Normal 7-18 [facility] Comment on above: Performed By: #### L 500.2500, L100.0100 ####[facility] [address] [place], [address] Basophil percentageOrdered B y: Jono Casanova on 03-18-2024 Basophils/100 WBC (Bld) 0.8 % 0-1 [facility] Blood urea nitrogen (BUN)/cr eatinine ratioOrdered By: Jono Casanova on 03-18-2024 Urea nitrogen/Creatinine [Mass ratio] 16.4 mg/mg 10-20 [facility] CBC W/Diff, Automatedon 12-0 -2023 Absolute Lymph 1.03 X10 3/uL Normal 0.83-4.51 [facility] Comment on above: Performed By: #### L 500.2500, L100.0100 ####[facility] [address] [place], [address] Absolute Neut 7.7 X10 3/uL Normal 2.0-7.7 [facility] Comment on above: Performed By: #### L 500.2500, L100.0100 ####[facility] [address] [place], [address] Basophils/100 WBC (Bld) 0.8 % Normal 0-1 [facility] Comment on above: Performed By: #### L 500.2500, L100.0100 ####[facility] [address] [place], [address] Eosinophils/100 WBC (Bld) 0.9 % Normal 0-5 [facility] Comment on above: Performed By: #### L 500.2500, L100.0100 ####[facility] [address] [place], [address] Erythrocyte distribution width (RBC) [Ratio] 15.1 % High 11.6-14.6 [facility] Comment on above: Performed By: #### L 500.2500, L100.0100 ####[facility] [address] [place], [address] Hematocrit (Bld) [Volume fraction] 38.6 % Normal 37-47 [facility] Comment on above: Performed By: #### L 500.2500, L100.0100 ####[facility] [address] [place], [address] Hemoglobin (Bld) [Mass/Vol] 12.3 g/dL Normal 12.0-15.0 [facility] Comment on above: Performed By: #### L 500.2500, L100.0100 ####[facility] [address] [place], [address] IG% 0.400 Normal 0.0-0.9 [facility] Comment on above: Result Comment: IG% - Immature Granulocytes (promyelocytes, myelocytes andmetamyelocytes) > 1% indicates that a LEFT SHIFT is Present. Performed By: #### L 500.2500, L100.0100 ####[facility] [address] [place], [address] Lymphocytes/100 WBC (Bld) 10.4 % Low 19-41 [facility] Comment on above: Performed By: #### L 500.2500, L100.0100 ####[facility] [address] [place], [address] MCH (RBC) [Entitic mass] 27.3 pg Normal 27.0-32.0 [facility] Comment on above: Performed By: #### L 500.2500, L100.0100 ####[facility] [address] [place], [address] MCHC (RBC) [Mass/Vol] 31.9 g/dL Low 32-36 [facility] Comment on above: Performed By: #### L 500.2500, L100.0100 ####[facility] [address] [place], [address] MCV (RBC) [Entitic vol] 85.6 fL Normal 81-99 [facility] Comment on above: Performed By: #### L 500.2500, L100.0100 ####[facility] [address] [place], [address] Monocytes/100 WBC (Bld) 9.8 % Normal 0-10 [facility] Comment on above: Performed By: #### L 500.2500, L100.0100 ####[facility] [address] [place], [address] Neutrophils/100 WBC (Bld) 77.7 % High 47-70 [facility] Comment on above: Performed By: #### L 500.2500, L100.0100 ####[facility] [address] [place], [address] Nucleated RBC (Bld) [#/Vol] 0 10*3/uL Normal 0-5 [facility] Comment on above: Performed By: #### L 500.2500, L100.0100 ####[facility] [address] [place], [address] Platelet mean volume (Bld) [Entitic vol] 9.7 fL Normal 6.2-12.0 [facility] Comment on above: Performed By: #### L 500.2500, L100.0100 ####[facility] [address] [place], [address] Platelets (Bld) [#/Vol] 326 10*3/uL Normal 150-450 [facility] Comment on above: Performed By: #### L 500.2500, L100.0100 ####[facility] [address] [place], [address] RBC (Bld) [#/Vol] 4.51 10*6/uL Normal 4.2-5.[address] [facility] Comment on above: Performed By: #### L 500.2500, L100.0100 ####[facility] [address] [place], [address] RDW SD 47.7 fl High 35.1-43.9 [facility] Comment on above: Performed By: #### L 500.2500, L100.0100 ####[facility] [address] [place], [address] WBC (Bld) [#/Vol] 9.9 10*3/uL Normal 4.4-11.0 [facility] Comment on above: Performed By: #### L 500.2500, L100.0100 ####[facility] [address] [place], [address] Carbon dioxide measurementOr dered By: Jono Casanova on 03-18-2024 CO2 [Moles/Vol] 25.0 mmol/L 21.0-32.0 [facility] Chloride measurementOrdered By: Jono Casanova on 03-18-2024 Chloride [Moles/Vol] 100 mmol/L 98-107 [facility] Emergency Department Summary on 03-18-2024 Emergency Department Summary Normal [facility] Eosinophil percentageOrdered By: Jono Casanova on 03-18-2024 Eosinophils/100 WBC (Bld) 0.9 % 0-5 [facility] Erythrocyte distribution wid th ratioOrdered By: Jono Casanova on 03-18-2024 Erythrocyte distribution width (RBC) [Ratio] 15.1 % High 11.6-14.6 [facility] Erythrocyte distribution wid th standard deviationOrdered By: Jono Casanova on 03-18-2024 Erythrocyte distribution width (RBC) [Entitic vol] 47.7 fL High 35.1-43.9 [facility] Estimated glomerular filtrat ion rate (GFR) AmericanOrdered By: Jono Casanova on 03-18-2024 Estimated GFR (MDRD) Amer 75 mL/min >60 [facility] Comment on above: GFR Calc Estimation of creatinine kalee aranceOrdered By: Jono Casanova on 03-18-2024 Estimated Creatinine Clearance Calc 38.33 ml/min [facility] Glomerular filtration rate ( GFR) estimationOrdered By: Jono Casanova on 03-18-2024 Estimated GFR (MDRD) Non-Af Amer 62 mL/min >60 [facility] Comment on above: Non- GFR Calc Glucose measurementOrdered B y: Jono Casanova on 03-18-2024 Glucose [Mass/Vol] 130 mg/dL High 74-106 [facility] Comment on above: Fasting Glucose resu lt greater than or equal to 126 mg/dL suggests DIABETES MELLITUS per A.D.A. criteria. Hematocrit Auto (Bld) [Volum e fraction]Ordered By: Jono Casanova on 03-18-2024 Hematocrit (Bld) [Volume fraction] 38.6 % 37-47 [facility] Hemoglobin measurementOrdere d By: Jono Casanova on 03-18-2024 Hemoglobin (Bld) [Mass/Vol] 12.3 g/dL 12.0-15.0 [facility] Immature granulocytes/100 WB C Auto (Bld)Ordered By: Jono Casaonva on 03-18-2024 Immature granulocytes/100 WBC (Bld) 0.400 % 0.0-0.9 [facility] Comment on above: IG% - Immature Granu locytes (promyelocytes, myelocytes and metamyelocytes) > 1% indicates that a LEFT SHIFT is Present. Lymphocytes Auto (Unsp spec) [#/Vol]Ordered By: Jono Casanova on 03-18-2024 Lymphocytes (Bld) [#/Vol] 1.03 10*3/uL 0.83-4.51 [facility] Lymphocytes/100 WBC Auto (Un sp spec)Ordered By: Jono Casanova on 03-18-2024 Lymphocytes/100 WBC (Bld) 10.4 % Low 19-41 [facility] MCV (mean corpuscular volume ) determinationOrdered By: Jono Casanova on 03-18-2024 MCV (RBC) [Entitic vol] 85.6 fL 81-99 [facility] Mean corpuscular hemoglobin (MCH) determinationOrdered By: Jono Casanova on 03-18-2024 MCH (RBC) [Entitic mass] 27.3 pg 27.0-32.0 [facility] Mean corpuscular hemoglobin concentration (MCHC) determinationOrdered By: Jono Casanova on 03-18-2024 MCHC (RBC) [Mass/Vol] 31.9 g/dL Low 32-36 [facility] Mean platelet volume determi nationOrdered By: Jono Casanova on 03-18-2024 Platelet mean volume (Bld) [Entitic vol] 9.7 fL 6.2-12.0 [facility] Monocyte percentageOrdered B y: Jono Casanova on 03-18-2024 Monocytes/100 WBC (Bld) 9.8 % 0-10 [facility] Neutrophil percentageOrdered By: Jono Casanova on 03-18-2024 Neutrophils/100 WBC (Bld) 77.7 % High 47-70 [facility] Nucleated red blood cell per centageOrdered By: Jono Casanova on 03-18-2024 Nucleated RBC/100 WBC (Bld) [Ratio] 0 % 0-5 [facility] Platelet countOrdered By: Brent Casanova on 03-18-2024 Platelets (Bld) [#/Vol] 326 10*3/uL 150-450 [facility] Potassium measurementOrdered By: Jono Casanova on 03-18-2024 Potassium [Moles/Vol] 3.8 mmol/L 3.5-5.1 [facility] RBC Auto (Bld) [#/Vol]Ordere d By: Jono Casanova on 03-18-2024 RBC (Bld) [#/Vol] 4.51 10*6/uL 4.2-5.[address] [facility] Serum anion gap measurementO rdered By: Jono Casanova on 03-18-2024 Anion gap [Moles/Vol] 10 mmol/L 5-15 [facility] Serum or plasma calcium july urement (mass/volume)Ordered By: Jono Casanova on 03-18-2024 Calcium [Mass/Vol] 9.8 mg/dL 8.5-10.1 [facility] Serum or plasma creatinine m easurement (mass/volume)Ordered By: Jono Casanova on 03-18-2024 Creatinine [Mass/Vol] 0.92 mg/dL 0.55-1.02 [facility] Comment on above: The validity of the calculated GFR & GFRAA in patients over 70 years has not been determined. Clinical correlation is essential. Serum or plasma urea nitroge n measurement (mass/volume)Ordered By: Jono Casanova on 03-18-2024 Urea nitrogen [Mass/Vol] 15 mg/dL 7-18 [facility] Sodium levelOrdered By: Jono Casanova on 03-18-2024 Sodium [Moles/Vol] 135 mmol/L Low 136-145 [facility] White blood cell (WBC) count Ordered By: Jono Casanova on 03-18-2024 WBC (Bld) [#/Vol] 9.9 10*3/uL 4.4-11.0 [facility] Cardiology Visit Reporton Cardiology Visit Report Normal [facility] CBC W/Diff, Automatedon 02-16 Absolute Lymph 1.41 X10 3/uL Normal 0.83-4.51 [facility] Comment on above: Order Comment: Order Date: 03/01/24Order Info: 018- - CBCDOrder Info: [id number] - RETIC Performed By: #### L 500.4050, L100.9950, L100.0100, L501.9520, L503.6550, L503.6075 ####[facility] [address] [place], [address] Absolute Neut 5.1 X10 3/uL Normal 2.0-7.7 [facility] Comment on above: Order Comment: Order Date: 03/01/24Order Info: [id number] - CBCDOrder Info: [id number] - RETIC Performed By: #### L 500.4050, L100.9950, L100.0100, L501.9520, L503.6550, L503.6075 ####[facility] [address] [place], [address] Basophils/100 WBC (Bld) 1.1 % High 0-1 [facility] Comment on above: Order Comment: Order Date: 03/01/24Order Info: [id number]- - CBCDOrder Info: [id number] - RETIC Performed By: #### L 500.4050, L100.9950, L100.0100, L501.9520, L503.6550, L503.6075 ####[facility] [address] [place], [address] Eosinophils/100 WBC (Bld) 1.8 % Normal 0-5 [facility] Comment on above: Order Comment: Order Date: 03/01/24Order Info: 018- - CBCDOrder Info: [id number] - RETIC Performed By: #### L 500.4050, L100.9950, L100.0100, L501.9520, L503.6550, L503.6075 ####[facility] [address] [place], [address] Erythrocyte distribution width (RBC) [Ratio] 15.5 % High 11.6-14.6 [facility] [facility] Comment on above: Order Comment: Order Date: 03/01/24Order Info: 0184-1 - CBCDOrder Info: 4679-7 - RETIC Performed By: #### L 500.4050, L100.9950, L100.0100, L501.9520, L503.6550, L503.6075 ####[facility] [address] [place], [address] Hematocrit (Bld) [Volume fraction] 40.3 % Normal 37-47 [facility] Comment on above: Order Comment: Order Date: 03/01/24Order Info: 0184-1 - CBCDOrder Info: 4679-7 - RETIC Performed By: #### L 500.4050, L100.9950, L100.0100, L501.9520, L503.6550, L503.6075 ####[facility] [address] [place], [address] Hemoglobin (Bld) [Mass/Vol] 13.0 g/dL Normal 12.0-15.0 [facility] Comment on above: Order Comment: Order Date: 03/01/24Order Info: 0184-1 - CBCDOrder Info: 4679-7 - RETIC Performed By: #### L 500.4050, L100.9950, L100.0100, L501.9520, L503.6550, L503.6075 ####[facility] [address] [place], [address] IG% 0.500 Normal 0.0-0.9 [facility] Comment on above: Order Comment: Order Date: 03/01/24Order Info: 0184-1 - CBCDOrder Info: 4679-7 - RETIC Result Comment: IG% - Immature Granulocytes (promyelocytes, myelocytes andmetamyelocytes) > 1% indicates that a LEFT SHIFT is Present. Performed By: #### L 500.4050, L100.9950, L100.0100, L501.9520, L503.6550, L503.6075 ####[facility] [address] [place], [address] Lymphocytes/100 WBC (Bld) 18.0 % Low 19-41 [facility] Comment on above: Order Comment: Order Date: 03/01/24Order Info: 018- - CBCDOrder Info: 4679-7 - RETIC Performed By: #### L 500.4050, L100.9950, L100.0100, L501.9520, L503.6550, L503.6075 ####[facility] [address] [place], [address] MCH (RBC) [Entitic mass] 27.8 pg Normal 27.0-32.0 [facility] Comment on above: Order Comment: Order Date: 03/01/24Order Info: 0184-1 - CBCDOrder Info: 4679-7 - RETIC Performed By: #### L 500.4050, L100.9950, L100.0100, L501.9520, L503.6550, L503.6075 ####[facility] [address] [place], [address] MCHC (RBC) [Mass/Vol] 32.3 g/dL Normal 32-36 [facility] Comment on above: Order Comment: Order Date: 03/01/24Order Info: 0184-1 - CBCDOrder Info: 4679-7 - RETIC Performed By: #### L 500.4050, L100.9950, L100.0100, L501.9520, L503.6550, L503.6075 ####[facility] [address] [place], [address] MCV (RBC) [Entitic vol] 86.1 fL Normal 81-99 [facility] Comment on above: Order Comment: Order Date: 03/01/24Order Info: 01807-17 - CBCDOrder Info: 4679-7 - RETIC Performed By: #### L 500.4050, L100.9950, L100.0100, L501.9520, L503.6550, L503.6075 ####[facility] [address] [place], [address] Monocytes/100 WBC (Bld) 13.4 % High 0-10 [facility] Comment on above: Order Comment: Order Date: 03/01/24Order Info: 183-04 - CBCDOrder Info: 4679-7 - RETIC Performed By: #### L 500.4050, L100.9950, L100.0100, L501.9520, L503.6550, L503.6075 ####[facility] [address] [place], [address] Neutrophils/100 WBC (Bld) 65.2 % Normal 47-70 [facility] Comment on above: Order Comment: Order Date: 03/01/24Order Info: 01807-17 - CBCDOrder Info: 4679-7 - RETIC Performed By: #### L 500.4050, L100.9950, L100.0100, L501.9520, L503.6550, L503.6075 ####[facility] [address] [place], [address] Nucleated RBC (Bld) [#/Vol] 0 10*3/uL Normal 0-5 [facility] Comment on above: Order Comment: Order Date: 03/01/24Order Info: 01807-17 - CBCDOrder Info: 4679-7 - RETIC Performed By: #### L 500.4050, L100.9950, L100.0100, L501.9520, L503.6550, L503.6075 ####[facility] [address] [place], [address] Platelet mean volume (Bld) [Entitic vol] 10.1 fL Normal 6.2-12.0 [facility] Comment on above: Order Comment: Order Date: 03/01/24Order Info: 0184-1 - CBCDOrder Info: 4679-7 - RETIC Performed By: #### L 500.4050, L100.9950, L100.0100, L501.9520, L503.6550, L503.6075 ####[facility] [address] [place], [address] Platelets (Bld) [#/Vol] 296 10*3/uL Normal 150-450 [facility] Comment on above: Order Comment: Order Date: 03/01/24Order Info: 0184-1 - CBCDOrder Info: 4679-7 - RETIC Performed By: #### L 500.4050, L100.9950, L100.0100, L501.9520, L503.6550, L503.6075 ####[facility] [address] [place], [address] RBC (Bld) [#/Vol] 4.68 10*6/uL Normal 4.2-5.[address] [facility] Comment on above: Order Comment: Order Date: 03/01/24Order Info: 0184-1 - CBCDOrder Info: 4679-7 - RETIC Performed By: #### L 500.4050, L100.9950, L100.0100, L501.9520, L503.6550, L503.6075 ####[facility] [address] [place], [address] RDW SD 48.3 fl High 35.1-43.9 [facility] Comment on above: Order Comment: Order Date: 03/01/24Order Info: 0184-1 - CBCDOrder Info: 4679-7 - RETIC Performed By: #### L 500.4050, L100.9950, L100.0100, L501.9520, L503.6550, L503.6075 ####[facility] [address] [place], [address] WBC (Bld) [#/Vol] 7.8 10*3/uL Normal 4.4-11.0 [facility] Comment on above: Order Comment: Order Date: 03/01/24Order Info: 0184-1 - CBCDOrder Info: 4679-7 - RETIC Performed By: #### L 500.4050, L100.9950, L100.0100, L501.9520, L503.6550, L503.6075 ####[facility] [address] [place], [place], [address] Comprehensive Metabolic Prof [facility] 03-02-2024 Albumin [Mass/Vol] 4.0 g/dL Normal 3.2-5.0 [facility] Comment on above: Order Comment: Order Date: 03/01/24Order Info: 0786-1 - CMPOrder Info: 3015-06 - TSHOrder Info: 2499-10 - TIBCOrder Info: 2275-07 - ROSENDO Performed By: #### L 500.4050, L100.9950, L100.0100, L501.9520, L503.6550, L503.6075 ####[facility] [address] [place], [address] Albumin/Globulin [Mass ratio] 1.0 {ratio} Normal 0.9-2.4 [facility] Comment on above: Order Comment: Order Date: 03/01/24Order Info: 0786-1 - CMPOrder Info: 6-3 - TSHOrder Info: 7 - TIBCOrder Info: 2276-4 - ROSENDO Performed By: #### L 500.4050, L100.9950, L100.0100, L501.9520, L503.6550, L503.6075 ####[facility] [address] [place], [address] ALK P 93 U/L Normal 45-117 [facility] Comment on above: Order Comment: Order Date: 03/01/24Order Info: 07- - CMPOrder Info: 3 - TSHOrder Info: 7 - TIBCOrder Info: 2275-4 - ROSENDO Performed By: #### L 500.4050, L100.9950, L100.0100, L501.9520, L503.6550, L503.6075 ####[facility] [address] [place], [address] ALT [Catalytic activity/Vol] 21 U/L Normal 13-56 [facility] Comment on above: Order Comment: Order Date: 03/01/24Order Info: 785-04 - CMPOrder Info: 3015-06 - TSHOrder Info: 2499-10 - TIBCOrder Info: 2275-07 - ROSENDO Performed By: #### L 500.4050, L100.9950, L100.0100, L501.9520, L503.6550, L503.6075 ####[facility] [address] [place], [address] AST [Catalytic activity/Vol] 19 U/L Normal 15-37 [facility] Comment on above: Order Comment: Order Date: 03/01/24Order Info: 785-04 - CMPOrder Info: 3015-06 - TSHOrder Info: 2499-10 - TIBCOrder Info: 2275- - ROSENDO Performed By: #### L 500.4050, L100.9950, L100.0100, L501.9520, L503.6550, L503.6075 ####[facility] [address] [place], [address] Bilirubin [Mass/Vol] 0.50 mg/dL Normal 0.20-1.00 [facility] Comment on above: Order Comment: Order Date: 03/01/24Order Info: - - CMPOrder Info: 3015-06 - TSHOrder Info: 2499-10 - TIBCOrder Info: 2275-07 - ROSENDO Result Comment: For patients on eltrombopag therapy, use of Dimension Groom TBIL is not recommended. Performed By: #### L 500.4050, L100.9950, L100.0100, L501.9520, L503.6550, L503.6075 ####[facility] [address] [place], [address] BUN/CRE 14.9 RATIO Normal 10-20 [facility] Comment on above: Order Comment: Order Date: 03/01/24Order Info: 785-04 - CMPOrder Info: 3015-06 - TSHOrder Info: 2499-10 - TIBCOrder Info: 2275-07 - ROSENDO Performed By: #### L 500.4050, L100.9950, L100.0100, L501.9520, L503.6550, L503.6075 ####[facility] [address] [place], [address] CA,Total 9.5 mg/dL Normal 8.5-10.1 [facility] Comment on above: Order Comment: Order Date: 03/01/24Order Info: 07 - CMPOrder Info: 3015-06 - TSHOrder Info: 2499-10 - TIBCOrder Info: 2275-07 - ROSENDO Performed By: #### L 500.4050, L100.9950, L100.0100, L501.9520, L503.6550, L503.6075 ####[facility] [address] [place], [address] Chloride [Moles/Vol] 100 mmol/L Normal 98-107 [facility] Comment on above: Order Comment: Order Date: 03/01/24Order Info: 07 - CMPOrder Info: 3015-06 - TSHOrder Info: 2499-10 - TIBCOrder Info: 2275-07 - ROSENDO Performed By: #### L 500.4050, L100.9950, L100.0100, L501.9520, L503.6550, L503.6075 ####[facility] [address] [place], [address] CO2 [Moles/Vol] 27.0 mmol/L Normal 21.0-32.0 [facility] Comment on above: Order Comment: Order Date: 03/01/24Order Info: 86-1 - CMPOrder Info: 3015-06 - TSHOrder Info: 2499-10 - TIBCOrder Info: 2275-07 - ROSENDO Performed By: #### L 500.4050, L100.9950, L100.0100, L501.9520, L503.6550, L503.6075 ####[facility] [address] [place], [address] Creatinine [Mass/Vol] 0.94 mg/dL Normal 0.55-1.02 [facility] Comment on above: Order Comment: Order Date: 03/01/24Order Info: 785- - CMPOrder Info: 3015-06 - TSHOrder Info: 2499-10 - TIBCOrder Info: 2275-07 - ROSENDO Result Comment: The validity of the calculated GFR GFRAA in patients over70 years has not been determined. Clinical correlation isessential. Performed By: #### L 500.4050, L100.9950, L100.0100, L501.9520, L503.6550, L503.6075 ####[facility] [address] [place], [address] EST GFR - AA 73 mL/min Normal >60 [facility] Comment on above: Order Comment: Order Date: 03/01/24Order Info: 785-1 - CMPOrder Info: 63 - TSHOrder Info: 2499-10 - TIBCOrder Info: 2275-07 - ROSENDO Result Comment: Afri can Finnish GFR Calc Performed By: #### L 500.4050, L100.9950, L100.0100, L501.9520, L503.6550, L503.6075 ####[facility] [address] [place], [address] GAP 7 Normal 5-15 [facility] Comment on above: Order Comment: Order Date: 03/01/24Order Info: 0786- - CMPOrder Info: 3015-06 - TSHOrder Info: 2499-10 - TIBCOrder Info: 2275-07 - ROSENDO Performed By: #### L 500.4050, L100.9950, L100.0100, L501.9520, L503.6550, L503.6075 ####[facility] [address] [place], [address] GFR/1.73 sq M.predicted among non-blacks MDRD (S/P/Bld) [Vol rate/Area] 61 mL/min/{1.73_m2} Normal >60 [facility] Comment on above: Order Comment: Order Date: 03/01/24Order Info: 785-04 - CMPOrder Info: 3015-06 - TSHOrder Info: 2499-10 - TIBCOrder Info: 2275-07 - ROSENDO Result Comment: Non- GFR Calc Performed By: #### L 500.4050, L100.9950, L100.0100, L501.9520, L503.6550, L503.6075 ####[facility] [address] [place], [address] Globulin (S) [Mass/Vol] 4.0 g/dL Normal 2.2-4.2 [facility] Comment on above: Order Comment: Order Date: 03/01/24Order Info: 785-04 - CMPOrder Info: 3015-06 - TSHOrder Info: 2499-10 - TIBCOrder Info: 2275-07 - ROSENDO Performed By: #### L 500.4050, L100.9950, L100.0100, L501.9520, L503.6550, L503.6075 ####[facility] [address] [place], [address] Glucose [Mass/Vol] 100 mg/dL Normal 74-106 [facility] Comment on above: Order Comment: Order Date: 03/01/24Order Info: 07- - CMPOrder Info: 3 - TSHOrder Info: 2499-7 - TIBCOrder Info: 2275- - ROSENDO Result Comment: Fast ing Glucose result from 100 to 125 mg/dLsuggests IMPAIRED HOMEOSTASIS per A.D.A. criteria. Performed By: #### L 500.4050, L100.9950, L100.0100, L501.9520, L503.6550, L503.6075 ####[facility] [address] [place], [address] Potassium [Moles/Vol] 3.7 mmol/L Normal 3.5-5.1 [facility] Comment on above: Order Comment: Order Date: 03/01/24Order Info: 785-04 - CMPOrder Info: 3015-06 - TSHOrder Info: 2499-10 - TIBCOrder Info: 2275-07 - ROSENDO Performed By: #### L 500.4050, L100.9950, L100.0100, L501.9520, L503.6550, L503.6075 ####[facility] [address] [place], [address] Sodium [Moles/Vol] 134 mmol/L Low 136-145 [facility] Comment on above: Order Comment: Order Date: 03/01/24Order Info: 785-04 - CMPOrder Info: 3015-06 - TSHOrder Info: 2499-10 - TIBCOrder Info: 2275-07 - ROSENDO Performed By: #### L 500.4050, L100.9950, L100.0100, L501.9520, L503.6550, L503.6075 ####[facility] [address] [place], [address] T PROT 8.0 g/dL Normal 6.4-8.2 [facility] Comment on above: Order Comment: Order Date: 03/01/24Order Info: 785- - CMPOrder Info: 3015-06 - TSHOrder Info: 2499-10 - TIBCOrder Info: 2275-07 - ROSENDO Performed By: #### L 500.4050, L100.9950, L100.0100, L501.9520, L503.6550, L503.6075 ####[facility] [address] [place], [address] Urea nitrogen [Mass/Vol] 14 mg/dL Normal 7-18 [facility] Comment on above: Order Comment: Order Date: 03/01/24Order Info: 785- - CMPOrder Info: 3015-06 - TSHOrder Info: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 (Bld) [Entitic vol] 10.6 fL 6.2-12.0 [facility] Platelets (Bld) [#/Vol] 303 10*3/uL 150-450 [facility] No Panel InformationOrdered By: Jose Hdz on 07-05-2023 Estimated GFR (MDRD) Amer 100 mL/min >60 [facility] Comment on above: GFR Calc Estimated GFR (MDRD) Non-Af Amer 82 mL/min >60 [facility] Comment on above: Non- GFR Calc RBC Auto (Bld) [#/Vol]Ordere d By: Jose Hdz on 07-05-2023 RBC (Bld) [#/Vol] 4.42 10*6/uL 4.2-5.[address] [facility] Serum or plasma calcium july urement (mass/volume)Ordered By: Jose Hdz on 07-05-2023 Calcium [Mass/Vol] 9.7 mg/dL 8.5-10.1 [facility] Serum or plasma creatinine m easurement (mass/volume)Ordered By: Jose Hdz on 07-05-2023 Creatinine [Mass/Vol] 0.72 mg/dL 0.55-1.02 [facility] Comment on above: The validity of the calculated GFR & GFRAA in patients over 70 years has not been determined. Clinical correlation is essential. Serum or plasma urea nitroge n measurement (mass/volume)Ordered By: Jose Hdz on 07-05-2023 Urea nitrogen [Mass/Vol] 13 mg/dL 7-18 [facility] Thin prep Papanicolaou smear with manual screeningOrdered By: Jose Hdz on 07-05-2023 Thin prep Papanicolaou smear with manual screening 4.0 g/dL 3.2-5.0 [facility] Thin prep Papanicolaou smear with manual screening 18 U/L 15-37 [facility] Thin prep Papanicolaou smear with manual screening 9 5-15 [facility] Absolute lymphocyte countOrd ered By: Bernadette Javier on 06-28-2023 Lymphocytes Auto (Unsp spec) [#/Vol] 1.14 10*3/uL 0.83-4.51 [facility] Automated lymphocyte count a s percentage of total leukocytesOrdered By: Bernadette Javier on 06-28-2023 Lymphocytes/100 WBC Auto (Unsp spec) 18.9 % 19-41 [facility] Basophil percentageOrdered B y: Bernadette Javier on 06-28-2023 Basophils/100 WBC (Bld) 1.2 % 0-1 [facility] Chloride [Moles/Vol] 109 mmol/L 98-107 [facility] Eosinophils/100 WBC (Bld) 3.8 % 0-5 [facility] Glucose [Mass/Vol] 98 mg/dL 74-106 [facility] Hemoglobin (Bld) [Mass/Vol] 11.0 g/dL 12.0-15.0 [facility] Monocytes/100 WBC (Bld) 15.1 % 0-10 [facility] Neutrophils (Bld) [#/Vol] 3.7 10*3/uL 2.0-7.7 [facility] Neutrophils/100 WBC (Bld) 60.7 % 47-70 [facility] Potassium [Moles/Vol] 4.7 mmol/L 3.5-5.1 [facility] Comment on above: Moderate Hemolysis, Result may be falsely increased. Sodium [Moles/Vol] 138 mmol/L 136-145 [facility] WBC (Bld) [#/Vol] 6.0 10*3/uL 4.4-11.0 [facility] Determination of erythrocyte mean corpuscular volume (MCV)Ordered By: Bernadette Javier on 06-28-2023 MCV (RBC) [Entitic vol] 86.2 fL 81-99 [facility] Erythrocyte distribution wid th ratioOrdered By: Bernadette Javier on 06-28-2023 Erythrocyte distribution width (RBC) [Ratio] 14.9 % 11.6-14.6 [facility] Erythrocyte distribution wid th standard deviationOrdered By: Bernadette Javier on 06-28-2023 Erythrocyte distribution width (RBC) [Entitic vol] 47.4 fL 35.1-43.9 [facility] Hematocrit Auto (Bld) [Volum e fraction]Ordered By: Bernadette Javier on 06-28-2023 Hematocrit (Bld) [Volume fraction] 34.9 % 37-47 [facility] Immature granulocytes/100 WB C Auto (Bld)Ordered By: Bernadette Javier on 06-28-2023 Immature granulocytes/100 WBC (Bld) 0.300 % 0.0-0.9 [facility] Comment on above: IG% - Immature Granu locytes (promyelocytes, myelocytes and metamyelocytes) > 1% indicates that a LEFT SHIFT is Present. Laboratory - Chemistry and C hemistry - challengeOrdered By: Bernadette Javier on 06-28-2023 CO2 [Moles/Vol] 23.0 mmol/L 21.0-32.0 [facility] Urea nitrogen/Creatinine [Mass ratio] 17.1 mg/mg 10-20 [facility] Laboratory - Hematology and Cell countsOrdered By: Bernadette Javier on 06-28-2023 MCH (RBC) [Entitic mass] 27.2 pg 27.0-32.0 [facility] MCHC (RBC) [Mass/Vol] 31.5 g/dL 32-36 [facility] Nucleated RBC/100 WBC (Bld) [Ratio] 0 % 0-5 [facility] Platelet mean volume (Bld) [Entitic vol] 10.3 fL 6.2-12.0 [facility] Platelets (Bld) [#/Vol] 246 10*3/uL 150-450 [facility] No Panel InformationOrdered By: Bernadette Javier on 06-28-2023 Estimated Creatinine Clearance Calc 33.58 ml/min [facility] Estimated GFR (MDRD) Amer 64 mL/min >60 [facility] Comment on above: GFR Calc Estimated GFR (MDRD) Non-Af Amer 53 mL/min >60 [facility] Comment on above: Non- GFR Calc RBC Auto (Bld) [#/Vol]Ordere d By: Bernadette Javier on 06-28-2023 RBC (Bld) [#/Vol] 4.05 10*6/uL 4.2-5.[address] [facility] Serum or plasma calcium july urement (mass/volume)Ordered By: Bernadette Javier on 06-28-2023 Calcium [Mass/Vol] 8.9 mg/dL 8.5-10.1 [facility] Serum or plasma creatinine m easurement (mass/volume)Ordered By: Bernadette Javier on 06-28-2023 Creatinine [Mass/Vol] 1.05 mg/dL 0.55-1.02 [facility] Comment on above: The validity of the calculated GFR & GFRAA in patients over 70 years has not been determined. Clinical correlation is essential. Serum or plasma urea nitroge n measurement (mass/volume)Ordered By: Bernadette Javier on 06-28-2023 Urea nitrogen [Mass/Vol] 18 mg/dL 7-18 [facility] Thin prep Papanicolaou smear with manual screeningOrdered By: Bernadette Javier on 06-28-2023 Thin prep Papanicolaou smear with manual screening 6 5-15 [facility] Basophil percentageOrdered B y: Emily White on 06-27-2023 Bilirubin [Mass/Vol] 0.60 mg/dL 0.20-1.00 [facility] Comment on above: For patients on eltr ombopag therapy, use of Dimension Groom TBIL is not recommended. Protein [Mass/Vol] 6.7 g/dL 6.4-8.2 [facility] Laboratory - Chemistry and C hemistry - challengeOrdered By: Emily Verdugo on 06-27-2023 Albumin/Globulin [Mass ratio] 1.0 {ratio} 0.9-2.4 [facility] ALP [Catalytic activity/Vol] 90 U/L 45-117 [facility] ALT [Catalytic activity/Vol] 20 U/L 13-56 [facility] Globulin (S) [Mass/Vol] 3.3 g/dL 2.2-4.2 [facility] Thin prep Papanicolaou smear with manual screeningOrdered By: Emily Verdugo on 06-27-2023 Thin prep Papanicolaou smear with manual screening 3.4 g/dL 3.2-5.0 [facility] Thin prep Papanicolaou smear with manual screening 29 U/L 15-37 [facility] Comment on above: Moderate Hemolysis, Result may be falsely increased. Absolute lymphocyte countOrd ered By: Esteban Leiva on 06-26-2023 Lymphocytes Auto (Unsp spec) [#/Vol] 0.72 10*3/uL 0.83-4.51 [facility] Automated lymphocyte count a s percentage of total leukocytesOrdered By: Esteban Leiva on 06-26-2023 Lymphocytes/100 WBC Auto (Unsp spec) 13.9 % 19-41 [facility] Basophil percentageOrdered B y: Emily Verdugo on 06-26-2023 Basophil percentage 0-5 SEEN /hpf 0-5 [facility] Basophil percentageOrdered B y: Esteban Leiva on 06-26-2023 Basophils/100 WBC (Bld) 1.7 % 0-1 [facility] Chloride [Moles/Vol] 106 mmol/L 98-107 [facility] Eosinophils/100 WBC (Bld) 2.1 % 0-5 [facility] Glucose [Mass/Vol] 100 mg/dL 74-106 [facility] Comment on above: Fasting Glucose resu lt from 100 to 125 mg/dL suggests IMPAIRED HOMEOSTASIS per A.D.A. criteria. Hemoglobin (Bld) [Mass/Vol] 12.5 g/dL 12.0-15.0 [facility] Monocytes/100 WBC (Bld) 13.7 % 0-10 [facility] Neutrophils (Bld) [#/Vol] 3.5 10*3/uL 2.0-7.7 [facility] Neutrophils/100 WBC (Bld) 68.4 % 47-70 [facility] Potassium [Moles/Vol] 4.6 mmol/L 3.5-5.1 [facility] Comment on above: Moderate Hemolysis, Result may be falsely increased. Sodium [Moles/Vol] 136 mmol/L 136-145 [facility] WBC (Bld) [#/Vol] 5.2 10*3/uL 4.4-11.0 [facility] Bilirubin Test strip Ql (U)O rdered By: Emily Verdugo on 06-26-2023 Bilirubin Ql (U) Negative Negative [facility] Determination of erythrocyte mean corpuscular volume (MCV)Ordered By: Esteban Leiva on 06-26-2023 MCV (RBC) [Entitic vol] 88.4 fL 81-99 [facility] Erythrocyte distribution wid th ratioOrdered By: Esteban Leiva on 06-26-2023 Erythrocyte distribution width (RBC) [Ratio] 14.8 % 11.6-14.6 [facility] Erythrocyte distribution wid th standard deviationOrdered By: Esteban Leiva on 06-26-2023 Erythrocyte distribution width (RBC) [Entitic vol] 47.7 fL 35.1-43.9 [facility] Hematocrit Auto (Bld) [Volum e fraction]Ordered By: Esteban Leiva on 06-26-2023 Hematocrit (Bld) [Volume fraction] 40.2 % 37-47 [facility] Immature granulocytes/100 WB C Auto (Bld)Ordered By: Esteban Leiva on 06-26-2023 Immature granulocytes/100 WBC (Bld) 0.200 % 0.0-0.9 [facility] Comment on above: IG% - Immature Granu locytes (promyelocytes, myelocytes and metamyelocytes) > 1% indicates that a LEFT SHIFT is Present. Ketones Test strip Ql (U)Ord ered By: Emily Verdugo on 06-26-2023 Ketones Ql (U) Negative Negative [facility] Laboratory - Chemistry and C hemistry - challengeOrdered By: Esteban Leiva on 06-26-2023 CO2 [Moles/Vol] 26.0 mmol/L 21.0-32.0 [facility] Natriuretic peptide B (Bld) [Mass/Vol] 44.2 pg/mL 0-100 [facility] Urea nitrogen/Creatinine [Mass ratio] 18.3 mg/mg 10-20 [facility] Laboratory - Hematology and Cell countsOrdered By: Esteban Leiva on 06-26-2023 MCH (RBC) [Entitic mass] 27.5 pg 27.0-32.0 [facility] MCHC (RBC) [Mass/Vol] 31.1 g/dL 32-36 [facility] Nucleated RBC/100 WBC (Bld) [Ratio] 0 % 0-5 [facility] Platelet mean volume (Bld) [Entitic vol] 9.5 fL 6.2-12.0 [facility] Platelets (Bld) [#/Vol] 244 10*3/uL 150-450 [facility] Mucus LM Ql (Urine sed)Order ed By: Emily Verdugo on 06-26-2023 Mucus Ql (Urine sed) 0 SEEN /hpf [facility] Nitrite Test strip Ql (U)Ord ered By: Emily Verdugo on 06-26-2023 Nitrite Ql (U) Negative Negative [facility] No Panel InformationOrdered By: Emily Verdugo on 06-26-2023 Urine RBC 0 SEEN /hpf 0-5 [facility] No Panel InformationOrdered By: Esteban Leiva on 06-26-2023 D-Dimer Quantitative (PE/DVT) 0.89 FEU/ug/m 0.27-0.49 [facility] Comment on above: D-Dimer ELEVATED (>0 .49): Additional studies and clinicalassessments are indicated to conclude diagnosis of:Deep Vein Thrombosis (DVT) or Pulmonary Embolism (PE)D-Dimer result called to ED A Self RN 06/26/23 at 0827 by A Maris Estimated Creatinine Clearance Calc 43.00 ml/min [facility] Estimated GFR (MDRD) Amer 86 mL/min >60 [facility] Comment on above: GFR Calc Estimated GFR (MDRD) Non-Af Amer 71 mL/min >60 [facility] Comment on above: Non- GFR Calc Troponin I High Sensitivity 9 pg/mL 3.0-54.0 [facility] Comment on above: Please Note: New Letty t Units and Gender Specific Reference Ranges. For more information see Policy Stat Procedure Groom High Sensitivity Troponin (TNIH) and attachments. Protein Test strip Ql (U)Ord ered By: Emily Verdugo on 06-26-2023 Protein Ql (U) Negative Negative [facility] RBC Auto (Bld) [#/Vol]Ordere d By: Esteban Leiva on 06-26-2023 RBC (Bld) [#/Vol] 4.55 10*6/uL 4.2-5.[address] [facility] Serum or plasma calcium july urement (mass/volume)Ordered By: Esteban Leiva on 06-26-2023 Calcium [Mass/Vol] 9.3 mg/dL 8.5-10.1 [facility] Serum or plasma creatinine m easurement (mass/volume)Ordered By: Esteban Leiva on 06-26-2023 Creatinine [Mass/Vol] 0.82 mg/dL 0.55-1.02 [facility] Comment on above: The validity of the calculated GFR & GFRAA in patients over 70 years has not been determined. Clinical correlation is essential. Serum or plasma urea nitroge n measurement (mass/volume)Ordered By: Esteban Leiva on 06-26-2023 Urea nitrogen [Mass/Vol] 15 mg/dL 7-18 [facility] Squamous epithelial cells de tection in urine sediment by light microscopyOrdered By: Emily Verdugo on 06-26-2023 Epithelial cells.squamous LM Ql (Urine sed) 0-5 SEEN /hpf 5-10 [facility] Thin prep Papanicolaou smear with manual screeningOrdered By: Esteban Leiva on 06-26-2023 Thin prep Papanicolaou smear with manual screening 4 5-15 [facility] Urine blood detectionOrdered By: Emily Verdugo on 06-26-2023 RBC Ql (U) Negative Negative [facility] Urine clarityOrdered By: Torres Verdugo on 06-26-2023 Clarity (U) Sl. Cloudy Clear [facility] Urine color determinationOrd ered By: Emily White on 06-26-2023 Color (U) Yellow Yellow [facility] Urine glucose detectionOrder ed By: Emily Verdugo on 06-26-2023 Glucose Ql (U) Normal mg/dl Normal [facility] Urine leukocyte esterase det ection by dipstickOrdered By: Emily Verdugo on 06-26-2023 Leukocyte esterase Test strip Ql (U) 25 /ul Negative [facility] Urine pHOrdered By: Emily Gomez dominick on 06-26-2023 pH (U) 6.0 [pH] 5.0 - 8.0 [facility] Urine sediment bacteria coun t by microscopy (number/high power field)Ordered By: Emily Verdugo on 06-26-2023 Bacteria LM.HPF (Urine sed) [#/Area] 0 /[HPF] None Seen [facility] Urine specific gravity measu rementOrdered By: Emily Verdugo on 06-26-2023 Specific gravity (U) [Rel density] 1.015 1.002-1.030 [facility] Urine urobilinogen measureme ntOrdered By: Emily Verdugo on 06-26-2023 Urobilinogen Ql (U) Normal mg/dl Normal [facility] Absolute lymphocyte countOrd ered By: Jono Casanova on 06-11-2023 Lymphocytes Auto (Unsp spec) [#/Vol] 0.72 10*3/uL 0.83-4.51 [facility] Automated lymphocyte count a s percentage of total leukocytesOrdered By: Jono Casanova on 06-11-2023 Lymphocytes/100 WBC Auto (Unsp spec) 11.1 % 19-41 [facility] Basophil percentageOrdered B y: Jono Casanova on 06-11-2023 Basophils/100 WBC (Bld) 0.9 % 0-1 [facility] Bilirubin [Mass/Vol] 0.60 mg/dL 0.20-1.00 [facility] Comment on above: For patients on eltr ombopag therapy, use of Dimension Groom TBIL is not recommended. Chloride [Moles/Vol] 106 mmol/L 98-107 [facility] Eosinophils/100 WBC (Bld) 1.4 % 0-5 [facility] Glucose [Mass/Vol] 105 mg/dL 74-106 [facility] Comment on above: Fasting Glucose resu lt from 100 to 125 mg/dL suggests IMPAIRED HOMEOSTASIS per A.D.A. criteria. Hemoglobin (Bld) [Mass/Vol] 12.4 g/dL 12.0-15.0 [facility] Monocytes/100 WBC (Bld) 11.6 % 0-10 [facility] Neutrophils (Bld) [#/Vol] 4.8 10*3/uL 2.0-7.7 [facility] Neutrophils/100 WBC (Bld) 74.5 % 47-70 [facility] Potassium [Moles/Vol] 3.9 mmol/L 3.5-5.1 [facility] Protein [Mass/Vol] 7.4 g/dL 6.4-8.2 [facility] Sodium [Moles/Vol] 136 mmol/L 136-145 [facility] WBC (Bld) [#/Vol] 6.5 10*3/uL 4.4-11.0 [facility] Determination of erythrocyte mean corpuscular volume (MCV)Ordered By: Jono Casanova on 06-11-2023 MCV (RBC) [Entitic vol] 87.5 fL 81-99 [facility] Erythrocyte distribution wid th ratioOrdered By: Jono Casanova on 06-11-2023 Erythrocyte distribution width (RBC) [Ratio] 14.9 % 11.6-14.6 [facility] Erythrocyte distribution wid th standard deviationOrdered By: Jono Casanova on 06-11-2023 Erythrocyte distribution width (RBC) [Entitic vol] 47.8 fL 35.1-43.9 [facility] Hematocrit Auto (Bld) [Volum e fraction]Ordered By: Jono Casanova on 06-11-2023 Hematocrit (Bld) [Volume fraction] 38.4 % 37-47 [facility] Immature granulocytes/100 WB C Auto (Bld)Ordered By: Jono Casanova on 06-11-2023 Immature granulocytes/100 WBC (Bld) 0.500 % 0.0-0.9 [facility] Comment on above: IG% - Immature Granu locytes (promyelocytes, myelocytes and metamyelocytes) > 1% indicates that a LEFT SHIFT is Present. Laboratory - Chemistry and C hemistry - challengeOrdered By: Jono Casanova on 06-11-2023 Albumin/Globulin [Mass ratio] 1.1 {ratio} 0.9-2.4 [facility] ALP [Catalytic activity/Vol] 93 U/L 45-117 [facility] ALT [Catalytic activity/Vol] 20 U/L 13-56 [facility] CO2 [Moles/Vol] 24.0 mmol/L 21.0-32.0 [facility] Globulin (S) [Mass/Vol] 3.5 g/dL 2.2-4.2 [facility] Natriuretic peptide B (Bld) [Mass/Vol] 50.3 pg/mL 0-100 [facility] Urea nitrogen/Creatinine [Mass ratio] 15.7 mg/mg 10-20 [facility] Laboratory - Hematology and Cell countsOrdered By: Jono Casanova on 06-11-2023 MCH (RBC) [Entitic mass] 28.2 pg 27.0-32.0 [facility] MCHC (RBC) [Mass/Vol] 32.3 g/dL 32-36 [facility] Nucleated RBC/100 WBC (Bld) [Ratio] 0 % 0-5 [facility] Platelet mean volume (Bld) [Entitic vol] 9.2 fL 6.2-12.0 [facility] Platelets (Bld) [#/Vol] 252 10*3/uL 150-450 [facility] No Panel InformationOrdered By: Jono Casanova on 06-11-2023 Estimated GFR (MDRD) Amer 93 mL/min >60 [facility] Comment on above: GFR Calc Estimated GFR (MDRD) Non-Af Amer 77 mL/min >60 [facility] Comment on above: Non- GFR Calc Troponin I High Sensitivity 8 pg/mL 3.0-54.0 [facility] Comment on above: Please Note: New Letty t Units and Gender Specific Reference Ranges. For more information see Policy Stat Procedure Groom High Sensitivity Troponin (TNIH) and attachments. RBC Auto (Bld) [#/Vol]Ordere d By: Jono Casanova on 06-11-2023 RBC (Bld) [#/Vol] 4.39 10*6/uL 4.2-5.[address] [facility] Serum or plasma calcium july urement (mass/volume)Ordered By: Jono Casanova on 06-11-2023 Calcium [Mass/Vol] 9.6 mg/dL 8.5-10.1 [facility] Serum or plasma creatinine m easurement (mass/volume)Ordered By: Jono Casanova on 06-11-2023 Creatinine [Mass/Vol] 0.76 mg/dL 0.55-1.02 [facility] Comment on above: The validity of the calculated GFR & GFRAA in patients over 70 years has not been determined. Clinical correlation is essential. Serum or plasma urea nitroge n measurement (mass/volume)Ordered By: Jono Casanova on 06-11-2023 Urea nitrogen [Mass/Vol] 12 mg/dL 7-18 [facility] Thin prep Papanicolaou smear with manual screeningOrdered By: Jono Casanova on 06-11-2023 Thin prep Papanicolaou smear with manual screening 3.9 g/dL 3.2-5.0 [facility] Thin prep Papanicolaou smear with manual screening 25 U/L 15-37 [facility] Thin prep Papanicolaou smear with manual screening 6 5-15 [facility] Absolute lymphocyte countOrd ered By: Genny Worley on 04-28-2023 Lymphocytes Auto (Unsp spec) [#/Vol] 1.10 10*3/uL 0.83-4.51 [facility] Basophil percentageOrdered B y: Genny Worley on 04-28-2023 Basophil percentage 0-5 SEEN /hpf 0-5 [facility] Basophils/100 WBC (Bld) 1.1 % 0-1 [facility] Chloride [Moles/Vol] 98 mmol/L 98-107 [facility] Eosinophils/100 WBC (Bld) 1.2 % 0-5 [facility] Glucose [Mass/Vol] 95 mg/dL 74-106 [facility] Neutrophils (Bld) [#/Vol] 5.3 10*3/uL 2.0-7.7 [facility] Neutrophils/100 WBC (Bld) 71.7 % 47-70 [facility] Potassium [Moles/Vol] 3.7 mmol/L 3.5-5.1 [facility] Sodium [Moles/Vol] 132 mmol/L 136-145 [facility] WBC (Bld) [#/Vol] 7.4 10*3/uL 4.4-11.0 [facility] Bilirubin Test strip Ql (U)O rdered By: Genny Worley on 04-28-2023 Bilirubin Ql (U) Negative Negative [facility] Blood erythrocytes count (nu mber/volume)Ordered By: Genny Worley on 04-28-2023 RBC (Bld) [#/Vol] 4.69 10*6/uL 4.2-5.[address] [facility] Blood hemoglobin measurement (mass/volume)Ordered By: Genny Worley on 04-28-2023 Hemoglobin (Bld) [Mass/Vol] 12.7 g/dL 12.0-15.0 [facility] Blood lymphocytes/100 leukoc ytesOrdered By: Genny Worley on 04-28-2023 Lymphocytes/100 WBC (Bld) 14.9 % 19-41 [facility] Blood monocytes/100 leukocyt esOrdered By: Genny Worley on 04-28-2023 Monocytes/100 WBC (Bld) 10.8 % 0-10 [facility] Blood platelet mean volumeOr dered By: Genny Worley on 04-28-2023 Platelet mean volume (Bld) [Entitic vol] 9.4 fL 6.2-12.0 [facility] Determination of erythrocyte mean corpuscular volume (MCV)Ordered By: Genny Worley on 04-28-2023 MCV (RBC) [Entitic vol] 86.1 fL 81-99 [facility] Hematocrit Auto (Bld) [Volum e fraction]Ordered By: Genny Worley on 04-28-2023 Hematocrit (Bld) [Volume fraction] 40.4 % 37-47 [facility] Ketones Test strip Ql (U)Ord ered By: Genny Worley on 04-28-2023 Ketones Ql (U) Negative Negative [facility] Laboratory - Chemistry and C hemistry - challengeOrdered By: Genny Worley on 04-28-2023 CO2 [Moles/Vol] 28.0 mmol/L 21.0-32.0 [facility] Urea nitrogen/Creatinine [Mass ratio] 15.1 mg/mg 10-20 [facility] Laboratory - Hematology and Cell countsOrdered By: Genny Worley on 04-28-2023 Erythrocyte distribution width (RBC) [Entitic vol] 45.3 fL 35.1-43.9 [facility] Erythrocyte distribution width (RBC) [Ratio] 14.5 % 11.6-14.6 [facility] Immature granulocytes/100 WBC (Bld) 0.300 % 0.0-0.9 [facility] Comment on above: IG% - Immature Granu locytes (promyelocytes, myelocytes and metamyelocytes) > 1% indicates that a LEFT SHIFT is Present. MCH (RBC) [Entitic mass] 27.1 pg 27.0-32.0 [facility] Nucleated RBC/100 WBC (Bld) [Ratio] 0 % 0-5 [facility] Laboratory - Microbiology an d Antimicrobial susceptibilityOrdered By: Genny Worley on 04-28-2023 SARS-CoV-2 (COVID-19) RNA ADRY+probe Ql (Unsp spec) [facility] SARS-CoV-2 (COVID-19) RNA ADRY+probe Ql (Unsp spec) [facility] MCHC Auto (RBC) [Mass/Vol]Or dered By: Genny Worley on 04-28-2023 MCHC (RBC) [Mass/Vol] 31.4 g/dL 32-36 [facility] Mucus LM Ql (Urine sed)Order ed By: Genny Worley on 04-28-2023 Mucus Ql (Urine sed) 0 SEEN /hpf [facility] Nitrite Test strip Ql (U)Ord ered By: Genny Worley on 04-28-2023 Nitrite Ql (U) Negative Negative [facility] No Panel InformationOrdered By: Genny Worley on 04-28-2023 Estimated Creatinine Clearance Calc 41.72 ml/min [facility] Estimated GFR (MDRD) Amer 81 mL/min >60 [facility] Comment on above: GFR Calc Estimated GFR (MDRD) Non-Af Amer 67 mL/min >60 [facility] Comment on above: Non- GFR Calc Troponin I High Sensitivity 8 pg/mL 3.0-54.0 [facility] Comment on above: Please Note: New Letty t Units and Gender Specific Reference Ranges. For more information see Policy Stat Procedure Groom High Sensitivity Troponin (TNIH) and attachments. Platelets bldOrdered By: Cecelia Worley on 04-28-2023 Platelets (Bld) [#/Vol] 251 10*3/uL 150-450 [facility] Protein Test strip Ql (U)Ord ered By: Genny Worley on 04-28-2023 Protein Ql (U) Negative Negative [facility] Serum or plasma calcium july urement (mass/volume)Ordered By: Genny Worley on 04-28-2023 Calcium [Mass/Vol] 9.2 mg/dL 8.5-10.1 [facility] Serum or plasma creatinine m easurement (mass/volume)Ordered By: Genny Worley on 04-28-2023 Creatinine [Mass/Vol] 0.86 mg/dL 0.55-1.02 [facility] Comment on above: The validity of the calculated GFR & GFRAA in patients over 70 years has not been determined. Clinical correlation is essential. Serum or plasma urea nitroge n measurement (mass/volume)Ordered By: Genny Worley on 04-28-2023 Urea nitrogen [Mass/Vol] 13 mg/dL 7-18 [facility] Squamous epithelial cells de tection in urine sediment by light microscopyOrdered By: Genny Worley on 04-28-2023 Epithelial cells.squamous LM Ql (Urine sed) 5-10 SEEN /hpf 5-10 [facility] Thin prep Papanicolaou smear with manual screeningOrdered By: Genny Worley on 04-28-2023 Thin prep Papanicolaou smear with manual screening 6 5-15 [facility] Urine blood detectionOrdered By: Genny Worley on 04-28-2023 RBC Ql (U) Negative Negative [facility] RBC Ql (U) 0 SEEN /hpf 0-5 [facility] Urine clarityOrdered By: Cecelia Worley on 04-28-2023 Clarity (U) Clear Clear [facility] Urine color determinationOrd ered By: Genny Worley on 04-28-2023 Color (U) Straw Yellow [facility] Urine glucose detectionOrder ed By: Genny Worley on 04-28-2023 Glucose Ql (U) Normal mg/dl Normal [facility] Urine leukocyte esterase det ection by dipstickOrdered By: Genny Worley on 04-28-2023 Leukocyte esterase Test strip Ql (U) 25 /ul Negative [facility] Urine pHOrdered By: Genny Worley on 04-28-2023 pH (U) 7.0 [pH] 5.0 - 8.0 [facility] Urine sediment bacteria coun t by microscopy (number/high power field)Ordered By: Genny Worley on 04-28-2023 Bacteria LM.HPF (Urine sed) [#/Area] 0 /[HPF] None Seen [facility] Urine specific gravity measu rementOrdered By: Genny Worley on 04-28-2023 Specific gravity (U) [Rel density] 1.010 1.002-1.030 [facility] Urobilinogen Auto test strip Ql (U)Ordered By: Genny Worley on 04-28-2023 Urobilinogen Ql (U) Normal mg/dl Normal [facility] Absolute lymphocyte countOrd ered By: Jose Goins on 04-02-2023 Lymphocytes Auto (Unsp spec) [#/Vol] 1.32 10*3/uL 0.83-4.51 [facility] Basophil percentageOrdered B y: Jose Goins on 04-02-2023 Basophils/100 WBC (Bld) 1.6 % 0-1 [facility] Chloride [Moles/Vol] 101 mmol/L 98-107 [facility] Eosinophils/100 WBC (Bld) 1.4 % 0-5 [facility] Glucose [Mass/Vol] 113 mg/dL 74-106 [facility] Comment on above: Fasting Glucose resu lt from 100 to 125 mg/dL suggests IMPAIRED HOMEOSTASIS per A.D.A. criteria. Neutrophils (Bld) [#/Vol] 4.8 10*3/uL 2.0-7.7 [facility] Neutrophils/100 WBC (Bld) 67.3 % 47-70 [facility] Potassium [Moles/Vol] 3.5 mmol/L 3.5-5.1 [facility] Sodium [Moles/Vol] 136 mmol/L 136-145 [facility] WBC (Bld) [#/Vol] 7.1 10*3/uL 4.4-11.0 [facility] Blood erythrocytes count (nu mber/volume)Ordered By: Jose Goisn on 04-02-2023 RBC (Bld) [#/Vol] 4.88 10*6/uL 4.2-5.[address] [facility] Blood hemoglobin measurement (mass/volume)Ordered By: Jose Goins on 04-02-2023 Hemoglobin (Bld) [Mass/Vol] 13.5 g/dL 12.0-15.0 [facility] Blood lymphocytes/100 leukoc ytesOrdered By: Jose Goins on 04-02-2023 Lymphocytes/100 WBC (Bld) 18.6 % 19-41 [facility] Blood monocytes/100 leukocyt esOrdered By: Jose Goins on 04-02-2023 Monocytes/100 WBC (Bld) 10.7 % 0-10 [facility] Blood platelet mean volumeOr dered By: Jose Goins on 04-02-2023 Platelet mean volume (Bld) [Entitic vol] 9.3 fL 6.2-12.0 [facility] Determination of erythrocyte mean corpuscular volume (MCV)Ordered By: Jose Goins on 04-02-2023 MCV (RBC) [Entitic vol] 85.9 fL 81-99 [facility] Glucose Glucometer (BldC) [M ass/Vol]Ordered By: Jose Goins on 04-02-2023 Glucose [Mass/Vol] 100 mg/dL 74-106 [facility] Comment on above: MANAGEMENT OF PATIEN T CARE PER NURSING PROTOCOL Hematocrit Auto (Bld) [Volum e fraction]Ordered By: Jose Goins on 04-02-2023 Hematocrit (Bld) [Volume fraction] 41.9 % 37-47 [facility] Laboratory - Chemistry and C hemistry - challengeOrdered By: Jose Goins on 04-02-2023 CO2 [Moles/Vol] 28.0 mmol/L 21.0-32.0 [facility] Urea nitrogen/Creatinine [Mass ratio] 11.2 mg/mg 10-20 [facility] Laboratory - CoagulationOrde red By: Jose Goins on 04-02-2023 aPTT Coag (Bld) [Time] 33.4 s 24.1-36.2 [facility] PT Coag (PPP) [Time] 12.2 s 11.7-14.9 [facility] Laboratory - Hematology and Cell countsOrdered By: Jose Goins on 04-02-2023 Erythrocyte distribution width (RBC) [Entitic vol] 45.1 fL 35.1-43.9 [facility] Erythrocyte distribution width (RBC) [Ratio] 14.5 % 11.6-14.6 [facility] Immature granulocytes/100 WBC (Bld) 0.400 % 0.0-0.9 [facility] Comment on above: IG% - Immature Granu locytes (promyelocytes, myelocytes and metamyelocytes) > 1% indicates that a LEFT SHIFT is Present. MCH (RBC) [Entitic mass] 27.7 pg 27.0-32.0 [facility] Nucleated RBC/100 WBC (Bld) [Ratio] 0 % 0-5 [facility] MCHC Auto (RBC) [Mass/Vol]Or dered By: Jose Goins on 04-02-2023 MCHC (RBC) [Mass/Vol] 32.2 g/dL 32-36 [facility] No Panel InformationOrdered By: Jose Goins on 04-02-2023 Estimated Creatinine Clearance Calc 44.30 ml/min [facility] Estimated GFR (MDRD) Amer 87 mL/min >60 [facility] Comment on above: GFR Calc Estimated GFR (MDRD) Non-Af Amer 72 mL/min >60 [facility] Comment on above: Non- GFR Calc Troponin I High Sensitivity 9 pg/mL 3.0-54.0 [facility] Comment on above: Please Note: New Letty t Units and Gender Specific Reference Ranges. For more information see Policy Stat Procedure Groom High Sensitivity Troponin (TNIH) and attachments. Platelets bldOrdered By: Lluvia Goins on 04-02-2023 Platelets (Bld) [#/Vol] 256 10*3/uL 150-450 [facility] Serum or plasma calcium july urement (mass/volume)Ordered By: Jose Goins on 04-02-2023 Calcium [Mass/Vol] 9.3 mg/dL 8.5-10.1 [facility] Serum or plasma creatinine m easurement (mass/volume)Ordered By: Jose Goins on 04-02-2023 Creatinine [Mass/Vol] 0.81 mg/dL 0.55-1.02 [facility] Comment on above: The validity of the calculated GFR & GFRAA in patients over 70 years has not been determined. Clinical correlation is essential. Serum or plasma urea nitroge n measurement (mass/volume)Ordered By: Jose Goins on 04-02-2023 Urea nitrogen [Mass/Vol] 9 mg/dL 7-18 [facility] Thin prep Papanicolaou smear with manual screeningOrdered By: Jose Goins on 04-02-2023 Thin prep Papanicolaou smear with manual screening 7 5-15 [facility] Whole blood international no rmalized ratio (INR)Ordered By: Jose Goins on 04-02-2023 INR Coag (Bld) [Relative time] 0.9 {INR} [facility] Basophil percentageOrdered B y: Jose Hdz on 01-18-2023 Bilirubin [Mass/Vol] 0.70 mg/dL 0.20-1.00 [facility] Comment on above: For patients on eltr ombopag therapy, use of Dimension Groom TBIL is not recommended. Chloride [Moles/Vol] 97 mmol/L 98-107 [facility] Glucose [Mass/Vol] 96 mg/dL 74-106 [facility] Potassium [Moles/Vol] 3.7 mmol/L 3.5-5.1 [facility] Protein [Mass/Vol] 7.9 g/dL 6.4-8.2 [facility] Sodium [Moles/Vol] 133 mmol/L 136-145 [facility] Laboratory - Chemistry and C hemistry - challengeOrdered By: Jose Hdz on 01-18-2023 ALP [Catalytic activity/Vol] 89 U/L 45-117 [facility] ALT [Catalytic activity/Vol] 26 U/L 13-56 [facility] CO2 [Moles/Vol] 27.0 mmol/L 21.0-32.0 [facility] Globulin (S) [Mass/Vol] 3.6 g/dL 2.2-4.2 [facility] Magnesium [Mass/Vol] 2.3 mg/dL 1.6-2.6 [facility] Urea nitrogen/Creatinine [Mass ratio] 17.7 mg/mg 10- [facility] No Panel InformationOrdered By: Jose Hdz on 01-18-2023 Estimated GFR (MDRD) Amer 89 mL/min >60 [facility] Comment on above: GFR Calc Estimated GFR (MDRD) Non-Af Amer 74 mL/min >60 [facility] Comment on above: Non- GFR Calc Serum or plasma albumin july urement (mass/volume)Ordered By: Jose Hdz on 01-18-2023 Albumin [Mass/Vol] 4.3 g/dL 3.2-5.0 [facility] Serum or plasma albumin/glob ulin mass ratioOrdered By: Jose Hdz on 01-18-2023 Albumin/Globulin [Mass ratio] 1.2 {ratio} 0.9-2.4 [facility] Serum or plasma calcium july urement (mass/volume)Ordered By: Jose Hdz on 01-18-2023 Calcium [Mass/Vol] 9.9 mg/dL 8.5-10.1 [facility] Serum or plasma creatinine m easurement (mass/volume)Ordered By: Jose Hdz on 01-18-2023 Creatinine [Mass/Vol] 0.79 mg/dL 0.55-1.02 [facility] Comment on above: The validity of the calculated GFR & GFRAA in patients over 70 years has not been determined. Clinical correlation is essential. Serum or plasma urea nitroge n measurement (mass/volume)Ordered By: Jose Hdz on 01-18-2023 Urea nitrogen [Mass/Vol] 14 mg/dL - [facility] Thin prep Papanicolaou smear with manual screeningOrdered By: Jose Hdz on 01-18-2023 Thin prep Papanicolaou smear with manual screening 26 U/L [facility] Thin prep Papanicolaou smear with manual screening 9 5-15 [facility] Absolute lymphocyte countOrd ered By: Jose Hdz on 01-06-2023 Lymphocytes Auto (Unsp spec) [#/Vol] 1.37 10*3/uL 0.83-4.51 [facility] Basophil percentageOrdered B y: ED PROVIDER on 01-06-2023 Chloride [Moles/Vol] 96 mmol/L 98-107 [facility] Glucose [Mass/Vol] 134 mg/dL 74-106 [facility] Comment on above: Fasting Glucose resu lt greater than or equal to 126 mg/dL suggests DIABETES MELLITUS per A.D.A. criteria. Potassium [Moles/Vol] 2.9 mmol/L 3.5-5.1 [facility] Comment on above: Slight Hemolysis, Re sult may be falsely increased. Sodium [Moles/Vol] 133 mmol/L 136-145 [facility] Basophil percentageOrdered B y: Jose Hdz on 01-06-2023 Basophils/100 WBC (Bld) 1.2 % 0-1 [facility] Bilirubin [Mass/Vol] 0.50 mg/dL 0.20-1.00 [facility] Comment on above: For patients on eltr ombopag therapy, use of Dimension Groom TBIL is not recommended. Chloride [Moles/Vol] 98 mmol/L 98-107 [facility] Eosinophils/100 WBC (Bld) 3.1 % 0-5 [facility] Glucose [Mass/Vol] 124 mg/dL 74-106 [facility] Comment on above: Fasting Glucose resu lt from 100 to 125 mg/dL suggests IMPAIRED HOMEOSTASIS per A.D.A. criteria. Neutrophils (Bld) [#/Vol] 4.0 10*3/uL 2.0-7.7 [facility] Neutrophils/100 WBC (Bld) 61.9 % 47-70 [facility] Potassium [Moles/Vol] 2.7 mmol/L 3.5-5.1 [facility] Comment on above: Critical Result(s) C alled at: 19:05:31 01/06/2023 by: NONA VERDUGO TO DR. JULIO PHELPS. Results read back by same. Protein [Mass/Vol] 7.9 g/dL 6.4-8.2 [facility] Sodium [Moles/Vol] 133 mmol/L 136-145 [facility] WBC (Bld) [#/Vol] 6.4 10*3/uL 4.4-11.0 [facility] Blood erythrocytes count (nu mber/volume)Ordered By: Jose Hdz on 01-06-2023 RBC (Bld) [#/Vol] 4.78 10*6/uL 4.2-5.[address] [facility] Blood hemoglobin measurement (mass/volume)Ordered By: Jose Hdz on 01-06-2023 Hemoglobin (Bld) [Mass/Vol] 13.7 g/dL 12.0-15.0 [facility] Blood lymphocytes/100 leukoc ytesOrdered By: Jose Hdz on 01-06-2023 Lymphocytes/100 WBC (Bld) 21.3 % 19-41 [facility] Blood monocytes/100 leukocyt esOrdered By: Jose Hdz on 01-06-2023 Monocytes/100 WBC (Bld) 12.0 % 0-10 [facility] Blood platelet mean volumeOr dered By: Jose Hdz on 01-06-2023 Platelet mean volume (Bld) [Entitic vol] 10.5 fL 6.2-12.0 [facility] Determination of erythrocyte mean corpuscular volume (MCV)Ordered By: Jose Hdz on 01-06-2023 MCV (RBC) [Entitic vol] 89.1 fL 81-99 [facility] Hematocrit Auto (Bld) [Volum e fraction]Ordered By: Jose Hdz on 01-06-2023 Hematocrit (Bld) [Volume fraction] 42.6 % 37-47 [facility] Laboratory - Chemistry and C hemistry - challengeOrdered By: ED PROVIDER on 01-06-2023 CO2 [Moles/Vol] 30.0 mmol/L 21.0-32.0 [facility] Urea nitrogen/Creatinine [Mass ratio] 16.8 mg/mg 10-20 [facility] Laboratory - Chemistry and C hemistry - challengeOrdered By: Jose Hdz on 01-06-2023 ALP [Catalytic activity/Vol] 101 U/L 45-117 [facility] ALT [Catalytic activity/Vol] 28 U/L 13-56 [facility] CO2 [Moles/Vol] 28.0 mmol/L 21.0-32.0 [facility] Free T4 [Mass/Vol] 1.28 ng/dL 0.76-1.46 [facility] Globulin (S) [Mass/Vol] 4.0 g/dL 2.2-4.2 [facility] Urea nitrogen/Creatinine [Mass ratio] 14.5 mg/mg 10-20 [facility] Laboratory - Hematology and Cell countsOrdered By: Jose Hdz on 01-06-2023 Erythrocyte distribution width (RBC) [Entitic vol] 45.1 fL 35.1-43.9 [facility] Erythrocyte distribution width (RBC) [Ratio] 13.8 % 11.6-14.6 [facility] Immature granulocytes/100 WBC (Bld) 0.500 % 0.0-0.9 [facility] Comment on above: IG% - Immature Granu locytes (promyelocytes, myelocytes and metamyelocytes) > 1% indicates that a LEFT SHIFT is Present. MCH (RBC) [Entitic mass] 28.7 pg 27.0-32.0 [facility] Nucleated RBC/100 WBC (Bld) [Ratio] 0 % 0-5 [facility] MCHC Auto (RBC) [Mass/Vol]Or dered By: Jose Hdz on 01-06-2023 MCHC (RBC) [Mass/Vol] 32.2 g/dL 32-36 [facility] No Panel InformationOrdered By: ED PROVIDER on 01-06-2023 Estimated Creatinine Clearance Calc 35.88 ml/min [facility] Estimated GFR (MDRD) Amer 100 mL/min >60 [facility] Comment on above: GFR Calc Estimated GFR (MDRD) Non-Af Amer 83 mL/min >60 [facility] Comment on above: Non- GFR Calc No Panel InformationOrdered By: Jose Hdz on 01-06-2023 Estimated GFR (MDRD) Amer 104 mL/min >60 [facility] Comment on above: GFR Calc Estimated GFR (MDRD) Non-Af Amer 86 mL/min >60 [facility] Comment on above: Non- GFR Calc Thyroid Stimulating Hormone (TSH) 0.65 uIU/mL 0.358-3.74 [facility] Platelets bldOrdered By: Lluvia Hdz on 01-06-2023 Platelets (Bld) [#/Vol] 284 10*3/uL 150-450 [facility] Serum or plasma albumin july urement (mass/volume)Ordered By: Jose Hdz on 01-06-2023 Albumin [Mass/Vol] 3.9 g/dL 3.2-5.0 [facility] Serum or plasma albumin/glob ulin mass ratioOrdered By: Jose Hdz on 01-06-2023 Albumin/Globulin [Mass ratio] 1.0 {ratio} 0.9-2.4 [facility] Serum or plasma calcium july urement (mass/volume)Ordered By: ED PROVIDER on 01-06-2023 Calcium [Mass/Vol] 9.9 mg/dL 8.5-10.1 [facility] Serum or plasma calcium july urement (mass/volume)Ordered By: Jose Hdz on 01-06-2023 Calcium [Mass/Vol] 9.6 mg/dL 8.5-10.1 [facility] Serum or plasma creatinine m easurement (mass/volume)Ordered By: ED PROVIDER on 01-06-2023 Creatinine [Mass/Vol] 0.72 mg/dL 0.55-1.02 [facility] Comment on above: The validity of the calculated GFR & GFRAA in patients over 70 years has not been determined. Clinical correlation is essential. Serum or plasma creatinine m easurement (mass/volume)Ordered By: Jose Hdz on 01-06-2023 Creatinine [Mass/Vol] 0.69 mg/dL 0.55-1.02 [facility] Comment on above: The validity of the calculated GFR & GFRAA in patients over 70 years has not been determined. Clinical correlation is essential. Serum or plasma urea nitroge n measurement (mass/volume)Ordered By: ED PROVIDER on 01-06-2023 Urea nitrogen [Mass/Vol] 12 mg/dL 11-02 [facility] Serum or plasma urea nitroge n measurement (mass/volume)Ordered By: Jose Hdz on 01-06-2023 Urea nitrogen [Mass/Vol] 10 mg/dL 11-02 [facility] Thin prep Papanicolaou smear with manual screeningOrdered By: ED PROVIDER on 01-06-2023 Thin prep Papanicolaou smear with manual screening 7 5-15 [facility] Thin prep Papanicolaou smear with manual screeningOrdered By: Jose Hdz on 01-06-2023 Thin prep Papanicolaou smear with manual screening 24 U/L 15-37 [facility] Thin prep Papanicolaou smear with manual screening 7 5-15 [facility] Culture, urineOrdered By: Monica Charlton on 11-19-2022 Bacteria identified Cx Nom (U) Presumptive E. coli [facility] CNPNon 11-17-2022 CNPN Telephone (NEURMM) XAVIER RAHMAN ([id number]) 1940 F Date Time Provider Department 11/17/22 JORDANA FLORES During your visit today, we recorded the following information about you: DoraKarina 11/17/2022 10:02 AM Signed Patient was scheduled for a Tilt Test Tomorrow at [place], however she received a call today stating that her Sheep Sorter Doctor told them that she does not need the test and it should be canceled. She does not know if she should move forward with the test now or not since it was a different Provider cancelling it. Please call patient at [phone] to advise. Thank you! Delaney Coulter, RN 11/17/2022 10:25 AM Signed Test has not been canceled. Did not speak with physician. Patient was informed that cardiology does not feel is necessary. No additional information was given. No further explanation. 11/08 loop monitor was applied, nothing mentioned at that time regarding TTT Scheduled 9am tomorrow Routing to provider for review Jordana Flores APRN.ADRIAN 11/17/2022 10:28 AM Signed If her educational resource center teacher does not feel tilt table is recommended it can be cancelled. Please ensure patient discussed orthostatic results that were obtained in the office with her educational resource center teacher prior to cancelling. Want to make sure he is aware of drop in BP. Marii Hassan LPN 11/17/2022 10:57 AM Signed TC to educational resource center teacher Dr. Sidhu. Spoke with clinical staff who states she will look into it. Gave her orthos taken in office over phone and she will give us a call back if pt needs to continue with test or if she can cancel it. AVINASH Solomon Sherrie, RN 11/17/2022 11:29 AM Signed Xavier at Dr. Sidhu's office returning call to give Neurology an update. States she spoke with Dr. Sidhu and he said patient may continue with tilt table test if Neurology wishes to have it completed, however he does not feel it is necessary. Reports Dr. Sidhu is aware that patient has orthostatic hypotension. States patient did have a Loop recorder implanted on 11/08 for syncope but may have tilt test completed if Neurology wishes. Also states the tilt table test order is still active and authorized to use. ANNIE Parra Kristen, APRN.ADRIAN 11/17/2022 12:56 PM Signed Ok to cancel tilt table testing. Marii Hassan LPN 11/17/2022 1:56 PM Signed TC to pt who is okay with cancelling tilt table. TC to [facility] to cancel test. Marii Hassan LPN Allergies As of Date: 11/17/2022 Noted Allergy Reaction SULFA (SULFONAMIDE ANTIBIOTICS) 11/11/2014 2 - Rash Date Reviewed: 10/28/2022 Reviewed by: Jordana Flores APRN.ROUGH [employer]OUND[employer] MACHINE - Fully Assessed Reason for Visit: Appointment [[id number]] Prescriptions as of 11/17/2022 - amLODIPine (NORVASC) 10 mg tablet Take 0.5 tablets by mouth twice daily. - atorvastatin (LIPITOR) 40 mg tablet Take 1 tablet by mouth once daily. - carvedilol (COREG) 6.25 mg tablet Take 1 tablet by mouth twice daily. - clopidogrel (PLAVIX) 75 mg tablet Take 1 tablet by mouth once daily. - hydrALAZINE (APRESOLINE) 25 mg tablet Take 1 tablet by mouth three times daily as needed. - magnesium oxide (MAG-OX) 400 mg (241.3 mg magnesium) tablet Take 1 tablet by mouth daily at bedtime. - memantine (NAMENDA) 10 mg tablet Take 1 tablet by mouth every afternoon. - mirtazapine (REMERON) 15 mg tablet Take 1 tablet by mouth once daily. - pantoprazole DR (PROTONIX) 40 mg tablet Take 1 tablet by mouth twice daily. - potassium citrate ER (UROCIT-K) 10 mEq (1,080 mg) Take 1 tablet by mouth once daily. - pramipexole (MIRAPEX) 1.5 mg tablet Take 1 tablet by mouth as directed. 2-3 HR before bedtime for restless legs - Valsartan-hydroCHLOROth iazide 320-25 mg per tablet Take 1 tablet by mouth once daily. - melatonin 3 mg tablet Take 3 mg by mouth at bedtime as needed. - bisacodyl EC (DULCOLAX, BISACODYL,) 5 mg EC tablet Take 5 mg by mouth as needed for constipation. - albuterol HFA (PROVENTIL HFA, VENTOLIN HFA) 90 mcg/actuation inhaler Inhale 2 Puffs as instructed every 4 hours as needed. - ALLERGY 4 mg tablet Take 1 tablet by mouth daily at bedtime. To help sleep, allergies or staying asleep more than 4 hours. - indapamide (LOZOL) 1.25 mg tablet Take 1.25 mg by mouth once daily. - traMADol (ULTRAM) 50 mg tablet Take 50 mg by mouth as needed. - gabapentin (NEURONTIN) 300 mg capsule Take 600 mg by mouth as needed. - cyanocobalamin, vitamin B-12, 2,500 mcg chew Take 1 tablet by mouth once daily. - losartan (COZAAR) 50 mg tablet Take 50 mg by mouth once daily. - Levothyroxine 25 mcg cap Take 0.5 tablets by mouth once daily. - liothyronine (CYTOMEL) 5 mcg tablet Take 10 mcg by mouth once daily. - escitalopram oxalate (LEXAPRO) 5 mg tablet Take 5 mg by mouth once daily. - Magnesium 200 mg tab Take 400 mg by mouth once daily. - potassium gluconate 500 mg (83 mg) (more content not included)... Normal [facility] Basophil percentageOrdered B y: Catalino Sidhu on 11-08-2022 Chloride [Moles/Vol] 98 mmol/L 98-107 [facility] Glucose [Mass/Vol] 103 mg/dL 74-106 [facility] Comment on above: Fasting Glucose resu lt from 100 to 125 mg/dL suggests IMPAIRED HOMEOSTASIS per A.D.A. criteria. Potassium [Moles/Vol] 3.5 mmol/L 3.5-5.1 [facility] Sodium [Moles/Vol] 132 mmol/L 136-145 [facility] Laboratory - Chemistry and C hemistry - challengeOrdered By: Catalino Sidhu on 11-08-2022 CO2 [Moles/Vol] 29.0 mmol/L 21.0-32.0 [facility] Urea nitrogen/Creatinine [Mass ratio] 18.3 mg/mg 10-20 [facility] No Panel InformationOrdered By: Catalino Sidhu on 11-08-2022 Estimated Creatinine Clearance Calc 40.77 ml/min [facility] Estimated GFR (MDRD) Amer 80 mL/min >60 [facility] Comment on above: GFR Calc Estimated GFR (MDRD) Non-Af Amer 66 mL/min >60 [facility] Comment on above: Non- GFR Calc Serum or plasma calcium july urement (mass/volume)Ordered By: Catalino Sidhu on 11-08-2022 Calcium [Mass/Vol] 9.8 mg/dL 8.5-10.1 [facility] Serum or plasma creatinine m easurement (mass/volume)Ordered By: Catalino Sidhu on 11-08-2022 Creatinine [Mass/Vol] 0.88 mg/dL 0.55-1.02 [facility] Comment on above: The validity of the calculated GFR & GFRAA in patients over 70 years has not been determined. Clinical correlation is essential. Serum or plasma urea nitroge n measurement (mass/volume)Ordered By: Catalino Sidhu on 11-08-2022 Urea nitrogen [Mass/Vol] 16 mg/dL 7-18 [facility] Thin prep Papanicolaou smear with manual screeningOrdered By: Catalino Sidhu on 11-08-2022 Thin prep Papanicolaou smear with manual screening 5 5-15 [facility] CNOVon 10-28-2022 CNOV Office Visit (NEMLAUREN ) AXVIER RAHMAN ([id number]) 1940 F Date Time Provider Department 10/28/22 3:30 PM JORDANA FLORES During your visit today, we recorded the following information about you: Pulse Respiration Blood pressure Weight 67/minute 16/minute 132/73 56.5 kg Jordana Flores, BRITTNEY.[employer] MACHINE 11/01/2022 10:01 AM Signed [facility] New Patient Visit New Patient Consultation October 28, 2022 HPI: Ms. Rahman presents today accompanied by her secondary to [...] that she is here because she is confused. On further discussion she reports multiple additional ED visits since initial event. On review of chart, appears pt also presented to ED on 10/13 and again on 10/16. Notes are limited as pt was seen at [facility]. Per ED note on 10/13/22: Chief Complaint: [...] upset because she does not listen to (more content not included)... Normal [facility] Basophil percentageOrdered B y: Emily Verdugo on 10-18-2022 Cholesterol [Mass/Vol] 149 mg/dL <200 [facility] Comment on above: <200 mg/dL Desirable 200-240 mg/dL Borderline >240 mg/dL High Risk Triglyceride [Mass/Vol] 184 mg/dL <199 [facility] Comment on above: The drugs N-Acetylcy steine and Metamizole may falsely depress this assay.Serum Triglycerides Reference Interval Normal <150 mg/dL Borderline high 150 - 199 mg/dL High 200 - 499 mg/dL Very High > or = 500 mg/dL Serum or plasma cholesterol in HDL measurement (mass/volume)Ordered By: Emily Verdugo on 10-18-2022 Cholesterol in HDL [Mass/Vol] 58 mg/dL >40 [facility] Comment on above: The drugs N-Acetylcy steine and Metamizole may falsely depress this assay. Reference Range HDL <40 mg/dL Low HDL Cholesterol HDL >or= 60 mg/dL High HDL Cholesterol Serum or plasma cholesterol in VLDL measurement (mass/volume)Ordered By: Emily Verdugo on 10-18-2022 Cholesterol in VLDL [Mass/Vol] 37 mg/dL 5-40 [facility] Serum or plasma low density lipoprotein (LDL) cholesterol measurement (mass/volume)Ordered By: Emily Verdugo on 10-18-2022 Cholesterol in LDL [Mass/Vol] 54 mg/dL 0-130 [facility] Absolute lymphocyte countOrd ered By: Emily Verdugo on 10-17-2022 Lymphocytes Auto (Unsp spec) [#/Vol] 1.25 10*3/uL 0.83-4.51 [facility] Basophil percentageOrdered B y: Emily Verdugo on 10-17-2022 Basophils/100 WBC (Bld) 1.3 % 0-1 [facility] Bilirubin [Mass/Vol] 0.50 mg/dL 0.20-1.00 [facility] Comment on above: For patients on eltr ombopag therapy, use of Dimension Groom TBIL is not recommended. Chloride [Moles/Vol] 103 mmol/L 98-107 [facility] Eosinophils/100 WBC (Bld) 1.3 % 0-5 [facility] Glucose [Mass/Vol] 93 mg/dL 74-106 [facility] Neutrophils (Bld) [#/Vol] 3.1 10*3/uL 2.0-7.7 [facility] Neutrophils/100 WBC (Bld) 59.1 % 47-70 [facility] Potassium [Moles/Vol] 3.5 mmol/L 3.5-5.1 [facility] Protein [Mass/Vol] 6.6 g/dL 6.4-8.2 [facility] Sodium [Moles/Vol] 134 mmol/L 136-145 [facility] WBC (Bld) [#/Vol] 5.3 10*3/uL 4.4-11.0 [facility] Blood erythrocytes count (nu mber/volume)Ordered By: Emily Verdugo on 10-17-2022 RBC (Bld) [#/Vol] 4.11 10*6/uL 4.2-5.[address] [facility] Blood hemoglobin measurement (mass/volume)Ordered By: Emily Verdugo on 10-17-2022 Hemoglobin (Bld) [Mass/Vol] 11.9 g/dL 12.0-15.0 [facility] Blood lymphocytes/100 leukoc ytesOrdered By: Kartik on 10-17-2022 Lymphocytes/100 WBC (Bld) 23.8 % 19-41 [facility] Blood monocytes/100 leukocyt esOrdered By: Kartik on 10-17-2022 Monocytes/100 WBC (Bld) 14.1 % 0-10 [facility] Blood platelet mean volumeOr dered By: Emily Kartik on 10-17-2022 Platelet mean volume (Bld) [Entitic vol] 9.4 fL 6.2-12.0 [facility] Determination of erythrocyte mean corpuscular volume (MCV)Ordered By: Emily Verdugo on 10-17-2022 MCV (RBC) [Entitic vol] 90.0 fL 81-99 [facility] Hematocrit Auto (Bld) [Volum e fraction]Ordered By: Emily Verdugo on 10-17-2022 Hematocrit (Bld) [Volume fraction] 37.0 % 37-47 [facility] Laboratory - Chemistry and C hemistry - challengeOrdered By: Emily Kartik on 10-17-2022 ALP [Catalytic activity/Vol] 58 U/L 45-117 [facility] ALT [Catalytic activity/Vol] 26 U/L 13-56 [facility] CO2 [Moles/Vol] 26.0 mmol/L 21.0-32.0 [facility] Free T4 [Mass/Vol] 1.10 ng/dL 0.76-1.46 [facility] Globulin (S) [Mass/Vol] 3.2 g/dL 2.2-4.2 [facility] Urea nitrogen/Creatinine [Mass ratio] 17.9 mg/mg 10-20 [facility] Laboratory - Drug toxicology Ordered By: Emily Kartik on 10-17-2022 Amphetamines Ql (U) Negative <1000 ng/mL [facility] Benzodiazepines Ql (U) Negative < 200 ng/mL [facility] Cannabinoids Screen Ql (U) Negative < 50 ng/mL [facility] Cocaine Ql (U) Negative < 300 ng/mL [facility] Opiates Ql (U) Negative < 300 ng/mL [facility] Laboratory - Hematology and Cell countsOrdered By: Emily Kartik on 10-17-2022 Erythrocyte distribution width (RBC) [Entitic vol] 48.9 fL 35.1-43.9 [facility] Erythrocyte distribution width (RBC) [Ratio] 14.8 % 11.6-14.6 [facility] Immature granulocytes/100 WBC (Bld) 0.400 % 0.0-0.9 [facility] Comment on above: IG% - Immature Granu locytes (promyelocytes, myelocytes and metamyelocytes) > 1% indicates that a LEFT SHIFT is Present. MCH (RBC) [Entitic mass] 29.0 pg 27.0-32.0 [facility] Nucleated RBC/100 WBC (Bld) [Ratio] 0 % 0-5 [facility] [Mass/Vol]Or dered By: Emily Verdugo on 10-17-2022 MCHC (RBC) [Mass/Vol] 32.2 g/dL 32-36 [facility] [facility] No Panel InformationOrdered By: Emily Verdugo on 10-17-2022 MDMA (Ecstasy) Screen Negative < 500 ng/mL [facility] Urine Barbiturates Screen Negative < 200 ng/mL [facility] Urine Drug Screen Comment [facility] Comment on above: CONFIRMATORY TESTING FOR ALL POSITIVE URINE DRUG SCREENRESULTS WILL ONLY BE SENT OUT UPON PHYSICIAN ORDER. [facility]IST[facility] Urine Drug Screen methods provide only preliminaryanalytical test results. A more specific alternate chemicalmethod must be used in order to obtain a confirmedanalytical result. Gas chromatography/mass spectrometery(GC/MS) is the preferred confirmatory method. Clinicalconsideration and professional judgement should be appliedto any drug of abuse test result, particularly whenpreliminary positive results are used. URINE TCA TESTING MUST BE ORDERED SEPARATELY. USE TESTMNEMONIC: [facility] Urine Methadone Screen Negative < 300 ng/mL [facility] Estimated Creatinine Clearance Calc 35.88 ml/min [facility] Estimated GFR (MDRD) Amer 91 mL/min >60 [facility] Comment on above: GFR Calc Estimated GFR (MDRD) Non-Af Amer 75 mL/min >60 [facility] Comment on above: Non- GFR Calc Thyroid Stimulating Hormone (TSH) 1.02 uIU/mL 0.358-3.74 [facility] Platelets bldOrdered By: Torres Verdugo on 10-17-2022 Platelets (Bld) [#/Vol] 225 10*3/uL 150-450 [facility] Serum or plasma albumin july urement (mass/volume)Ordered By: Emily Verdugo on 10-17-2022 Albumin [Mass/Vol] 3.4 g/dL 3.2-5.0 [facility] Serum or plasma albumin/glob ulin mass ratioOrdered By: Emily Verdugo on 10-17-2022 Albumin/Globulin [Mass ratio] 1.1 {ratio} 0.9-2.4 [facility] Serum or plasma calcium july urement (mass/volume)Ordered By: Emily Verdugo on 10-17-2022 Calcium [Mass/Vol] 9.1 mg/dL 8.5-10.1 [facility] Serum or plasma creatinine m easurement (mass/volume)Ordered By: Emily Verdugo on 10-17-2022 Creatinine [Mass/Vol] 0.78 mg/dL 0.55-1.02 [facility] Comment on above: The validity of the calculated GFR & GFRAA in patients over 70 years has not been determined. Clinical correlation is essential. Serum or plasma urea nitroge n measurement (mass/volume)Ordered By: Emily Verdugo on 10-17-2022 Urea nitrogen [Mass/Vol] 14 mg/dL 7-18 [facility] Thin prep Papanicolaou smear with manual screeningOrdered By: Emily Verdugo on 10-17-2022 Thin prep Papanicolaou smear with manual screening 20 U/L 15-37 [facility] Thin prep Papanicolaou smear with manual screening 5 5-15 [facility] Urine phencyclidine (PCP) de tectionOrdered By: Emily Verdugo on 10-17-2022 Phencyclidine Ql (U) Negative < 25 ng/mL [facility] Whole blood hemoglobin A1c/t otal hemoglobin ratio (mass fraction)Ordered By: Emily Verdugo on 10-17-2022 HbA1c (Bld) [Mass fraction] 5.6 % 3.8-5.6 [facility] Comment on above: Normal < 5.7 % Predi abetic 5.7 - 6.4 % Diabetic >or= 6.5 % Please note range changes. Absolute lymphocyte countOrd ered By: Terry Vuong on 10-16-2022 Lymphocytes Auto (Unsp spec) [#/Vol] 1.32 10*3/uL 0.83-4.51 [facility] Basophil percentageOrdered B y: Terry Vuong on 10-16-2022 Basophils/100 WBC (Bld) 0.9 % 0-1 [facility] Chloride [Moles/Vol] 99 mmol/L 98-107 [facility] Eosinophils/100 WBC (Bld) 1.6 % 0-5 [facility] Glucose [Mass/Vol] 105 mg/dL 74-106 [facility] Comment on above: Fasting Glucose resu lt from 100 to 125 mg/dL suggests IMPAIRED HOMEOSTASIS per A.D.A. criteria. Neutrophils (Bld) [#/Vol] 4.1 10*3/uL 2.0-7.7 [facility] Neutrophils/100 WBC (Bld) 60.6 % 47-70 [facility] Potassium [Moles/Vol] 3.6 mmol/L 3.5-5.1 [facility] Sodium [Moles/Vol] 132 mmol/L 136-145 [facility] WBC (Bld) [#/Vol] 6.7 10*3/uL 4.4-11.0 [facility] Blood erythrocytes count (nu mber/volume)Ordered By: Terry Vuong on 10-16-2022 RBC (Bld) [#/Vol] 4.46 10*6/uL 4.2-5.[address] [facility] Blood hemoglobin measurement (mass/volume)Ordered By: Terry Vuong on 10-16-2022 Hemoglobin (Bld) [Mass/Vol] 13.2 g/dL 12.0-15.0 [facility] Blood lymphocytes/100 leukoc ytesOrdered By: Terry Vuong on 10-16-2022 Lymphocytes/100 WBC (Bld) 19.7 % 19-41 [facility] Blood monocytes/100 leukocyt esOrdered By: Terry Vuong on 10-16-2022 Monocytes/100 WBC (Bld) 16.8 % 0-10 [facility] Blood platelet mean volumeOr dered By: Terry Vuong on 10-16-2022 Platelet mean volume (Bld) [Entitic vol] 9.0 fL 6.2-12.0 [facility] Determination of erythrocyte mean corpuscular volume (MCV)Ordered By: Terry Vuong on 10-16-2022 MCV (RBC) [Entitic vol] 89.7 fL 81-99 [facility] Glucose Glucometer (BldC) [M ass/Vol]Ordered By: Terry Vuong on 10-16-2022 Glucose [Mass/Vol] 109 mg/dL 74-106 [facility] Comment on above: MANAGEMENT OF PATIEN T CARE PER NURSING PROTOCOL Hematocrit Auto (Bld) [Volum e fraction]Ordered By: Terry Vuong on 07-01-2023 Hematocrit (Bld) [Volume fraction] 40.0 % 37-47 [facility] INR in Blood by Coagulation assayOrdered By: Terry Vuong on 10-16-2022 INR Coag (Bld) [Relative time] 1.0 {INR} [facility] Laboratory - Chemistry and C hemistry - challengeOrdered By: Terry Vuong on 10-16-2022 CO2 [Moles/Vol] 28.0 mmol/L 21.0-32.0 [facility] Urea nitrogen/Creatinine [Mass ratio] 14.3 mg/mg 10-20 [facility] Laboratory - Chemistry and C hemistry - challengeOrdered By: Emily Verdugo on 10-16-2022 Magnesium [Mass/Vol] 2.2 mg/dL 1.6-2.6 [facility] Laboratory - CoagulationOrde red By: Terry Vuong on 10-16-2022 aPTT Coag (Bld) [Time] 33.1 s 24.1-36.2 [facility] PT Coag (PPP) [Time] 13.4 s 11.7-14.9 [facility] Laboratory - Hematology and Cell countsOrdered By: Terry Vuong on 10-16-2022 Erythrocyte distribution width (RBC) [Entitic vol] 48.7 fL 35.1-43.9 [facility] Erythrocyte distribution width (RBC) [Ratio] 14.8 % 11.6-14.6 [facility] Immature granulocytes/100 WBC (Bld) 0.400 % 0.0-0.9 [facility] Comment on above: IG% - Immature Granu locytes (promyelocytes, myelocytes and metamyelocytes) > 1% indicates that a LEFT SHIFT is Present. MCH (RBC) [Entitic mass] 29.6 pg 27.0-32.0 [facility] Nucleated RBC/100 WBC (Bld) [Ratio] 0 % 0-5 [facility] MCHC Auto (RBC) [Mass/Vol]Or dered By: Terry Vuong on 10-16-2022 MCHC (RBC) [Mass/Vol] 33.0 g/dL 32-36 [facility] No Panel InformationOrdered By: Terry Vuong on 10-16-2022 Estimated Creatinine Clearance Calc 38.22 ml/min [facility] Estimated GFR (MDRD) Amer 70 mL/min >60 [facility] Comment on above: GFR Calc Estimated GFR (MDRD) Non-Af Amer 58 mL/min >60 [facility] Comment on above: Non- GFR Calc Ethyl Alcohol Level < 3.0 mg/dL [facility] Comment on above: The serum:whole bloo d ethanol ratio is approximately 1.14and varies slightly with hematocrit. Medical Alcohol reference interval and critical value innon-tolerant individuals; 50 - 100 Impairment 100 Intoxication 100 - 250 Severe Poisoning 250 - 400 Deep/possible fatal coma Troponin I High Sensitivity 11 pg/mL 3.0-54.0 [facility] Comment on above: Please Note: New Letty t Units and Gender Specific Reference Ranges. For more information see Policy Stat Procedure Groom High Sensitivity Troponin (TNIH) and attachments. Platelets bldOrdered By: Evangelist Vuong on 10-16-2022 Platelets (Bld) [#/Vol] 248 10*3/uL 150-450 [facility] Serum or plasma calcium july urement (mass/volume)Ordered By: Terry Vuong on 10-16-2022 Calcium [Mass/Vol] 10.1 mg/dL 8.5-10.1 [facility] Serum or plasma creatinine m easurement (mass/volume)Ordered By: Terry Vuong on 10-16-2022 Creatinine [Mass/Vol] 0.98 mg/dL 0.55-1.02 [facility] Comment on above: The validity of the calculated GFR & GFRAA in patients over 70 years has not been determined. Clinical correlation is essential. Serum or plasma urea nitroge n measurement (mass/volume)Ordered By: Terry Vuong on 10-16-2022 Urea nitrogen [Mass/Vol] 14 mg/dL 7-18 [facility] Thin prep Papanicolaou smear with manual screeningOrdered By: Terry Vuong on 10-16-2022 Thin prep Papanicolaou smear with manual screening 5 5-15 [facility] Absolute lymphocyte countOrd ered By: Yoel Cam on 10-12-2022 Lymphocytes Auto (Unsp spec) [#/Vol] 1.07 10*3/uL 0.83-4.51 [facility] Basophil percentageOrdered B y: Yoel Cam on 10-12-2022 Basophils/100 WBC (Bld) 0.9 % 0-1 [facility] Chloride [Moles/Vol] 101 mmol/L 98-107 [facility] Eosinophils/100 WBC (Bld) 1.7 % 0-5 [facility] Glucose [Mass/Vol] 119 mg/dL 74-106 [facility] Comment on above: Fasting Glucose resu lt from 100 to 125 mg/dL suggests IMPAIRED HOMEOSTASIS per A.D.A. criteria. Neutrophils (Bld) [#/Vol] 3.2 10*3/uL 2.0-7.7 [facility] Neutrophils/100 WBC (Bld) 60.2 % 47-70 [facility] Potassium [Moles/Vol] 3.3 mmol/L 3.5-5.1 [facility] Sodium [Moles/Vol] 132 mmol/L 136-145 [facility] WBC (Bld) [#/Vol] 5.3 10*3/uL 4.4-11.0 [facility] Blood erythrocytes count (nu mber/volume)Ordered By: Yoel Cam on 10-12-2022 RBC (Bld) [#/Vol] 3.87 10*6/uL 4.2-5.[address] [facility] Blood hemoglobin measurement (mass/volume)Ordered By: Yoel Cam on 10-12-2022 Hemoglobin (Bld) [Mass/Vol] 11.3 g/dL 12.0-15.0 [facility] Blood lymphocytes/100 leukoc ytesOrdered By: Yoel Cam on 10-12-2022 Lymphocytes/100 WBC (Bld) 20.2 % 19-41 [facility] Blood monocytes/100 leukocyt esOrdered By: Yoel Cam on 10-12-2022 Monocytes/100 WBC (Bld) 16.6 % 0-10 [facility] Blood platelet mean volumeOr dered By: Yoel Cam on 10-12-2022 Platelet mean volume (Bld) [Entitic vol] 9.2 fL 6.2-12.0 [facility] Determination of erythrocyte mean corpuscular volume (MCV)Ordered By: Yoel Cam on 10-12-2022 MCV (RBC) [Entitic vol] 88.9 fL 81-99 [facility] Hematocrit Auto (Bld) [Volum e fraction]Ordered By: Yoel Cam on 10-12-2022 Hematocrit (Bld) [Volume fraction] 34.4 % 37-47 [facility] INR in Blood by Coagulation assayOrdered By: Yoel Cam on 10-12-2022 INR Coag (Bld) [Relative time] 1.1 {INR} [facility] Laboratory - Chemistry and C hemistry - challengeOrdered By: Yoel Cam on 10-12-2022 CO2 [Moles/Vol] 23.0 mmol/L 21.0-32.0 [facility] Urea nitrogen/Creatinine [Mass ratio] 14.9 mg/mg 10-20 [facility] Laboratory - CoagulationOrde red By: Yoel Cam on 10-12-2022 aPTT Coag (Bld) [Time] 33.8 s 24.1-36.2 [facility] PT Coag (PPP) [Time] 14.2 s 11.7-14.9 [facility] Laboratory - Hematology and Cell countsOrdered By: Yoel Cam on 10-12-2022 Erythrocyte distribution width (RBC) [Entitic vol] 49.9 fL 35.1-43.9 [facility] Erythrocyte distribution width (RBC) [Ratio] 15.2 % 11.6-14.6 [facility] Immature granulocytes/100 WBC (Bld) 0.400 % 0.0-0.9 [facility] Comment on above: IG% - Immature Granu locytes (promyelocytes, myelocytes and metamyelocytes) > 1% indicates that a LEFT SHIFT is Present. MCH (RBC) [Entitic mass] 29.2 pg 27.0-32.0 [facility] Nucleated RBC/100 WBC (Bld) [Ratio] 0 % 0-5 [facility] MCHC Auto (RBC) [Mass/Vol]Or dered By: Yoel Cam on 10-12-2022 MCHC (RBC) [Mass/Vol] 32.8 g/dL 32-36 [facility] No Panel InformationOrdered By: Yoel Cam on 10-12-2022 Estimated Creatinine Clearance Calc 39.85 ml/min [facility] Estimated GFR (MDRD) Amer 74 mL/min >60 [facility] Comment on above: GFR Calc Estimated GFR (MDRD) Non-Af Amer 61 mL/min >60 [facility] Comment on above: Non- GFR Calc Platelets bldOrdered By: Francesco Cam on 10-12-2022 Platelets (Bld) [#/Vol] 205 10*3/uL 150-450 [facility] Serum or plasma calcium july urement (mass/volume)Ordered By: Yoel Cam on 10-12-2022 Calcium [Mass/Vol] 8.5 mg/dL 8.5-10.1 [facility] Serum or plasma creatinine m easurement (mass/volume)Ordered By: Yoel Cam on 10-12-2022 Creatinine [Mass/Vol] 0.94 mg/dL 0.55-1.02 [facility] Comment on above: The validity of the calculated GFR & GFRAA in patients over 70 years has not been determined. Clinical correlation is essential. Serum or plasma urea nitroge n measurement (mass/volume)Ordered By: Yoel Cam on 10-12-2022 Urea nitrogen [Mass/Vol] 14 mg/dL 7-18 [facility] Thin prep Papanicolaou smear with manual screeningOrdered By: Yoel Cam on 10-12-2022 Thin prep Papanicolaou smear with manual screening 8 5-15 [facility] Absolute lymphocyte countOrd ered By: Dr. Vuong on 09-07-2022 Lymphocytes Auto (Unsp spec) [#/Vol] 1.36 10*3/uL 0.83-4.51 [facility] Basophil percentageOrdered B y: Dr. Vuong on 09-07-2022 Basophils/100 WBC (Bld) 0.6 % 0-1 [facility] Chloride [Moles/Vol] 89 mmol/L 98-107 [facility] Eosinophils/100 WBC (Bld) 1.0 % 0-5 [facility] Glucose [Mass/Vol] 99 mg/dL 74-106 [facility] Neutrophils (Bld) [#/Vol] 4.4 10*3/uL 2.0-7.7 [facility] Neutrophils/100 WBC (Bld) 65.1 % 47-70 [facility] Potassium [Moles/Vol] 3.3 mmol/L 3.5-5.1 [facility] Sodium [Moles/Vol] 123 mmol/L 136-145 [facility] WBC (Bld) [#/Vol] 6.7 10*3/uL 4.4-11.0 [facility] Blood erythrocytes count (nu mber/volume)Ordered By: Dr. Vuong on 09-07-2022 RBC (Bld) [#/Vol] 4.83 10*6/uL 4.2-5.[address] [facility] Blood hemoglobin measurement (mass/volume)Ordered By: Dr. Vuong on 09-07-2022 Hemoglobin (Bld) [Mass/Vol] 13.8 g/dL 12.0-15.0 [facility] Blood lymphocytes/100 leukoc ytesOrdered By: Dr. Vuong on 09-07-2022 Lymphocytes/100 WBC (Bld) 20.2 % 19-41 [facility] Blood monocytes/100 leukocyt esOrdered By: Dr. Vuong on 09-07-2022 Monocytes/100 WBC (Bld) 12.5 % 0-10 [facility] Blood platelet mean volumeOr dered By: Dr. Vuong on 09-07-2022 Platelet mean volume (Bld) [Entitic vol] 9.4 fL 6.2-12.0 [facility] Determination of erythrocyte mean corpuscular volume (MCV)Ordered By: Dr. Vuong on 09-07-2022 MCV (RBC) [Entitic vol] 86.5 fL 81-99 [facility] Hematocrit Auto (Bld) [Volum e fraction]Ordered By: Dr. Vuong on 09-07-2022 Hematocrit (Bld) [Volume fraction] 41.8 % 37-47 [facility] Laboratory - Chemistry and C hemistry - challengeOrdered By: Dr. Vuong on 09-07-2022 CO2 [Moles/Vol] 25.0 mmol/L 21.0-32.0 [facility] Urea nitrogen/Creatinine [Mass ratio] 18.6 mg/mg 10-20 [facility] Laboratory - Hematology and Cell countsOrdered By: Dr. Vuong on 09-07-2022 Erythrocyte distribution width (RBC) [Entitic vol] 46.2 fL 35.1-43.9 [facility] Erythrocyte distribution width (RBC) [Ratio] 14.6 % 11.6-14.6 [facility] Immature granulocytes/100 WBC (Bld) 0.600 % 0.0-0.9 [facility] Comment on above: IG% - Immature Granu locytes (promyelocytes, myelocytes and metamyelocytes) > 1% indicates that a LEFT SHIFT is Present. MCH (RBC) [Entitic mass] 28.6 pg 27.0-32.0 [facility] Nucleated RBC/100 WBC (Bld) [Ratio] 0 % 0-5 [facility] MCHC Auto (RBC) [Mass/Vol]Or dered By: Dr. Vuong on 09-07-2022 MCHC (RBC) [Mass/Vol] 33.0 g/dL 32-36 [facility] No Panel InformationOrdered By: Dr. Vuong on 09-07-2022 Estimated Creatinine Clearance Calc 37.45 ml/min [facility] Estimated GFR (MDRD) Amer 95 mL/min >60 [facility] Comment on above: GFR Calc Estimated GFR (MDRD) Non-Af Amer 78 mL/min >60 [facility] Comment on above: Non- GFR Calc Ethyl Alcohol Level 79.0 mg/dL [facility] Comment on above: The serum:whole bloo d ethanol ratio is approximately 1.14and varies slightly with hematocrit. Medical Alcohol reference interval and critical value innon-tolerant individuals; 50 - 100 Impairment 100 Intoxication 100 - 250 Severe Poisoning 250 - 400 Deep/possible fatal coma Platelets bldOrdered By: Dr. uVong on 09-07-2022 Platelets (Bld) [#/Vol] 229 10*3/uL 150-450 [facility] Serum or plasma calcium july urement (mass/volume)Ordered By: Dr. Vuong on 09-07-2022 Calcium [Mass/Vol] 9.3 mg/dL 8.5-10.1 [facility] Serum or plasma creatinine m easurement (mass/volume)Ordered By: Dr. Vuong on 09-07-2022 Creatinine [Mass/Vol] 0.75 mg/dL 0.55-1.02 [facility] Comment on above: The validity of the calculated GFR & GFRAA in patients over 70 years has not been determined. Clinical correlation is essential. Serum or plasma urea nitroge n measurement (mass/volume)Ordered By: Dr. Vuong on 09-07-2022 Urea nitrogen [Mass/Vol] 14 mg/dL 7-18 [facility] Thin prep Papanicolaou smear with manual screeningOrdered By: Dr. Vuong on 09-07-2022 Thin prep Papanicolaou smear with manual screening 9 5-15 [facility] Basophil percentageOrdered B y: Dr. Hdz on 08-09-2022 Chloride [Moles/Vol] 100 mmol/L 98-107 [facility] Glucose [Mass/Vol] 165 mg/dL 74-106 [facility] Comment on above: Slight Lipemia, Resu lt may be falsely increased.Fasting Glucose result greater than or equal to 126 mg/dL suggests DIABETES MELLITUS per A.D.A. criteria. Potassium [Moles/Vol] 3.5 mmol/L 3.5-5.1 [facility] Comment on above: Slight Lipemia, Resu lt may be falsely increased. Sodium [Moles/Vol] 132 mmol/L 136-145 [facility] Laboratory - Chemistry and C hemistry - challengeOrdered By: Dr. Hdz on 08-09-2022 CO2 [Moles/Vol] 26.0 mmol/L 21.0-32.0 [facility] Comment on above: Slight Lipemia, Resu lt may be falsely increased. Magnesium [Mass/Vol] 2.4 mg/dL 1.6-2.6 [facility] Comment on above: Slight Lipemia, Resu lt may be falsely increased. Urea nitrogen/Creatinine [Mass ratio] 14.6 mg/mg 10-20 [facility] No Panel InformationOrdered By: Dr. Hdz on 08-09-2022 Estimated GFR (MDRD) Amer 85 mL/min >60 [facility] Comment on above: GFR Calc Estimated GFR (MDRD) Non-Af Amer 71 mL/min >60 [facility] Comment on above: Non- GFR Calc Serum or plasma calcium july urement (mass/volume)Ordered By: Dr. Hdz on 08-09-2022 Calcium [Mass/Vol] 9.5 mg/dL 8.5-10.1 [facility] Comment on above: Slight Lipemia, Resu lt may be falsely increased. Serum or plasma creatinine m easurement (mass/volume)Ordered By: Dr. Hdz on 08-09-2022 Creatinine [Mass/Vol] 0.82 mg/dL 0.55-1.02 [facility] Comment on above: Slight Lipemia, Resu lt may be falsely increased.The validity of the calculated GFR & GFRAA in patients over 70 years has not been determined. Clinical correlation is essential. Serum or plasma urea nitroge n measurement (mass/volume)Ordered By: Dr. Hdz on 08-09-2022 Urea nitrogen [Mass/Vol] 12 mg/dL 7-18 [facility] Comment on above: Slight Lipemia, Resu lt may be falsely increased. Thin prep Papanicolaou smear with manual screeningOrdered By: Dr. Hdz on 08-09-2022 Thin prep Papanicolaou smear with manual screening 6 5-15 [facility] Absolute lymphocyte countOrd ered By: Dr. Verdugo on 06-14-2022 Lymphocytes Auto (Unsp spec) [#/Vol] 1.28 10*3/uL 0.83-4.51 [facility] Basophil percentageOrdered B y: Dr. Verdugo on 06-14-2022 Bilirubin [Mass/Vol] 0.50 mg/dL 0.20-1.00 [facility] Comment on above: For patients on eltr ombopag therapy, use of Dimension Groom TBIL is not recommended. Chloride [Moles/Vol] 108 mmol/L 98-107 [facility] Cholesterol [Mass/Vol] 207 mg/dL <200 [facility] Comment on above: <200 mg/dL Desirable 200-240 mg/dL Borderline >240 mg/dL High Risk Glucose [Mass/Vol] 95 mg/dL 74-106 [facility] Potassium [Moles/Vol] 3.2 mmol/L 3.5-5.1 [facility] Protein [Mass/Vol] 7.2 g/dL 6.4-8.2 [facility] Sodium [Moles/Vol] 139 mmol/L 136-145 [facility] Triglyceride [Mass/Vol] 212 mg/dL <199 [facility] Comment on above: The drugs N-Acetylcy steine and Metamizole may falsely depress this assay.Serum Triglycerides Reference Interval Normal <150 mg/dL Borderline high 150 - 199 mg/dL High 200 - 499 mg/dL Very High > or = 500 mg/dL Basophils/100 WBC (Bld) 1.1 % 0-1 [facility] Eosinophils/100 WBC (Bld) 2.5 % 0-5 [facility] Neutrophils (Bld) [#/Vol] 2.6 10*3/uL 2.0-7.7 [facility] Neutrophils/100 WBC (Bld) 53.8 % 47-70 [facility] WBC (Bld) [#/Vol] 4.8 10*3/uL 4.4-11.0 [facility] Blood erythrocytes count (nu mber/volume)Ordered By: Dr. Verdugo on 06-14-2022 RBC (Bld) [#/Vol] 4.01 10*6/uL 4.2-5.[address] [facility] Blood hemoglobin measurement (mass/volume)Ordered By: Dr. Verdugo on 06-14-2022 Hemoglobin (Bld) [Mass/Vol] 11.2 g/dL 12.0-15.0 [facility] Blood lymphocytes/100 leukoc ytesOrdered By: Dr. Verdugo on 06-14-2022 Lymphocytes/100 WBC (Bld) 26.9 % 19-41 [facility] Blood monocytes/100 leukocyt esOrdered By: Dr. Verdugo on 06-14-2022 Monocytes/100 WBC (Bld) 15.5 % 0-10 [facility] Blood platelet mean volumeOr dered By: Dr. Verdugo on 06-14-2022 Platelet mean volume (Bld) [Entitic vol] 9.9 fL 6.2-12.0 [facility] Determination of erythrocyte mean corpuscular volume (MCV)Ordered By: Dr. Verdugo on 06-14-2022 MCV (RBC) [Entitic vol] 87.5 fL 81-99 [facility] Hematocrit Auto (Bld) [Volum e fraction]Ordered By: Dr. Verdugo on 06-14-2022 Hematocrit (Bld) [Volume fraction] 35.1 % 37-47 [facility] Laboratory - Chemistry and C hemistry - challengeOrdered By: Dr. Verdugo on 06-14-2022 ALP [Catalytic activity/Vol] 67 U/L 45-117 [facility] ALT [Catalytic activity/Vol] 22 U/L 13-56 [facility] CO2 [Moles/Vol] 24.0 mmol/L 21.0-32.0 [facility] Globulin (S) [Mass/Vol] 3.6 g/dL 2.2-4.2 [facility] Urea nitrogen/Creatinine [Mass ratio] 9.4 mg/mg 10-20 [facility] Laboratory - Hematology and Cell countsOrdered By: Dr. Verdugo on 06-14-2022 Erythrocyte distribution width (RBC) [Entitic vol] 47.4 fL 35.1-43.9 [facility] Erythrocyte distribution width (RBC) [Ratio] 14.6 % 11.6-14.6 [facility] Immature granulocytes/100 WBC (Bld) 0.200 % 0.0-0.9 [facility] Comment on above: IG% - Immature Granu locytes (promyelocytes, myelocytes and metamyelocytes) > 1% indicates that a LEFT SHIFT is Present. MCH (RBC) [Entitic mass] 27.9 pg 27.0-32.0 [facility] Nucleated RBC/100 WBC (Bld) [Ratio] 0 % 0-5 [facility] MCHC Auto (RBC) [Mass/Vol]Or dered By: Dr. Verdugo on 06-14-2022 MCHC (RBC) [Mass/Vol] 31.9 g/dL 32-36 [facility] No Panel InformationOrdered By: Dr. Verdugo on 06-14-2022 Estimated Creatinine Clearance Calc 37.45 ml/min [facility] Estimated GFR (MDRD) Amer 96 mL/min >60 [facility] Comment on above: GFR Calc Estimated GFR (MDRD) Non-Af Amer 80 mL/min >60 [facility] Comment on above: Non- GFR Calc Thyroid Stimulating Hormone (TSH) 1.82 uIU/mL 0.358-3.74 [facility] Platelets bldOrdered By: Dr. Verdugo on 06-14-2022 Platelets (Bld) [#/Vol] 226 10*3/uL 150-450 [facility] Serum or plasma albumin july urement (mass/volume)Ordered By: Dr. Verdugo on 06-14-2022 Albumin [Mass/Vol] 3.6 g/dL 3.2-5.0 [facility] Serum or plasma albumin/glob ulin mass ratioOrdered By: Dr. Verdugo on 06-14-2022 Albumin/Globulin [Mass ratio] 1.0 {ratio} 0.9-2.4 [facility] Serum or plasma calcium july urement (mass/volume)Ordered By: Dr. Verdugo on 06-14-2022 Calcium [Mass/Vol] 9.1 mg/dL 8.5-10.1 [facility] Serum or plasma cholesterol in HDL measurement (mass/volume)Ordered By: Dr. Verdugo on 06-14-2022 Cholesterol in HDL [Mass/Vol] 52 mg/dL >40 [facility] Comment on above: The drugs N-Acetylcy steine and Metamizole may falsely depress this assay. Reference Range HDL <40 mg/dL Low HDL Cholesterol HDL >or= 60 mg/dL High HDL Cholesterol Serum or plasma cholesterol in VLDL measurement (mass/volume)Ordered By: Dr. Verdugo on 06-14-2022 Cholesterol in VLDL [Mass/Vol] 42 mg/dL 5-40 [facility] Serum or plasma creatinine m easurement (mass/volume)Ordered By: Dr. Verdugo on 06-14-2022 Creatinine [Mass/Vol] 0.74 mg/dL 0.55-1.02 [facility] Comment on above: The validity of the calculated GFR & GFRAA in patients over 70 years has not been determined. Clinical correlation is essential. Serum or plasma low density lipoprotein (LDL) cholesterol measurement (mass/volume)Ordered By: Dr. Verdugo on 06-14-2022 Cholesterol in LDL [Mass/Vol] 113 mg/dL 0-130 [facility] Serum or plasma urea nitroge n measurement (mass/volume)Ordered By: Dr. Verdugo on 06-14-2022 Urea nitrogen [Mass/Vol] 7 mg/dL 7-18 [facility] Thin prep Papanicolaou smear with manual screeningOrdered By: Dr. Verdugo on 06-14-2022 Thin prep Papanicolaou smear with manual screening 22 U/L 15-37 [facility] Thin prep Papanicolaou smear with manual screening 7 5-15 [facility] Whole blood hemoglobin A1c/t otal hemoglobin ratio (mass fraction)Ordered By: Dr. Verdugo on 06-14-2022 HbA1c (Bld) [Mass fraction] 5.7 % 3.8-5.6 [facility] Comment on above: Normal < 5.7 % Predi abetic 5.7 - 6.4 % Diabetic >or= 6.5 % Please note range changes. Basophil percentageOrdered B y: Dr. Contreras on 06-13-2022 Basophil percentage 0 SEEN /hpf 0-5 [facility] Bilirubin Test strip Ql (U)O rdered By: Dr. Contreras on 06-13-2022 Bilirubin Ql (U) Negative Negative [facility] INR in Blood by Coagulation assayOrdered By: Dr. Contreras on 06-13-2022 INR Coag (Bld) [Relative time] 1.1 {INR} [facility] Influenza virus A and B and SARS-CoV-2 (COVID-19) Ag panel - Upper respiratory specimOrdered By: Dr. Contreras on 06-13-2022 SARS-CoV-2 (COVID-19) RNA ADRY+probe Ql (Resp) [facility] Ketones Test strip Ql (U)Ord ered By: Dr. Contreras on 06-13-2022 Ketones Ql (U) Negative Negative [facility] Laboratory - Chemistry and C hemistry - challengeOrdered By: Dr. Verdugo on 06-13-2022 Magnesium [Mass/Vol] 2.0 mg/dL 1.6-2.6 [facility] Comment on above: Slight Hemolysis, Re sult may be falsely increased. Laboratory - CoagulationOrde red By: Dr. Contreras on 06-13-2022 aPTT Coag (Bld) [Time] 26.2 s 24.1-36.2 [facility] PT Coag (PPP) [Time] 13.4 s 11.7-14.9 [facility] Laboratory - Drug toxicology Ordered By: Dr. Contreras on 06-13-2022 Amphetamines Ql (U) Negative <1000 ng/mL [facility] Benzodiazepines Ql (U) Negative < 200 ng/mL [facility] Cannabinoids Screen Ql (U) Negative < 50 ng/mL [facility] Cocaine Ql (U) Negative < 300 ng/mL [facility] Opiates Ql (U) Negative < 300 ng/mL [facility] Mucus LM Ql (Urine sed)Order ed By: Dr. Contreras on 06-13-2022 Mucus Ql (Urine sed) 0 SEEN /hpf [facility] Nitrite Test strip Ql (U)Ord ered By: Dr. Contreras on 06-13-2022 Nitrite Ql (U) Negative Negative [facility] No Panel InformationOrdered By: Dr. Conterras on 06-13-2022 MDMA (Ecstasy) Screen Negative < 500 ng/mL [facility] Urine Barbiturates Screen Negative < 200 ng/mL [facility] Urine Drug Screen Comment [facility] Comment on above: CONFIRMATORY TESTING FOR ALL POSITIVE URINE DRUG SCREENRESULTS WILL ONLY BE SENT OUT UPON PHYSICIAN ORDER. VISTA Urine Drug Screen methods provide only preliminaryanalytical test results. A more specific alternate chemicalmethod must be used in order to obtain a confirmedanalytical result. Gas chromatography/mass spectrometery(GC/MS) is the preferred confirmatory method. Clinicalconsideration and professional judgement should be appliedto any drug of abuse test result, particularly whenpreliminary positive results are used. URINE TCA TESTING MUST BE ORDERED SEPARATELY. USE TESTMNEMONIC: [facility] Urine Methadone Screen Negative < 300 ng/mL [facility] Protein Test strip Ql (U)Ord ered By: Dr. Contreras on 06-13-2022 Protein Ql (U) Negative Negative [facility] Squamous epithelial cells de tection in urine sediment by light microscopyOrdered By: Dr. Contreras on 06-13-2022 Epithelial cells.squamous LM Ql (Urine sed) 0-5 SEEN /hpf 5-10 [facility] Urine blood detectionOrdered By: Dr. Contreras on 06-13-2022 RBC Ql (U) Negative Negative [facility] RBC Ql (U) 0 SEEN /hpf 0-5 [facility] Urine clarityOrdered By: Dr. Contreras on 06-13-2022 Clarity (U) Clear Clear [facility] Urine color determinationOrd ered By: Dr. Contreras on 06-13-2022 Color (U) Yellow Yellow [facility] Urine glucose detectionOrder ed By: Dr. Contreras on 06-13-2022 Glucose Ql (U) Normal mg/dl Normal [facility] Urine leukocyte esterase det ection by dipstickOrdered By: Dr. Contreras on 06-13-2022 Leukocyte esterase Test strip Ql (U) Negative Negative [facility] Urine pHOrdered By: Dr. [place] gordillo on 06-13-2022 pH (U) 7.0 [pH] 5.0 - 8.0 [facility] Urine phencyclidine (PCP) de tectionOrdered By: Dr. Contreras on 06-13-2022 Phencyclidine Ql (U) Negative < 25 ng/mL [facility] Urine sediment bacteria coun t by microscopy (number/high power field)Ordered By: Dr. Contreras on 06-13-2022 Bacteria LM.HPF (Urine sed) [#/Area] 0 /[HPF] None Seen [facility] Urine specific gravity measu rementOrdered By: Dr. Contreras on 06-13-2022 Specific gravity (U) [Rel density] 1.005 1.002-1.030 [facility] Urobilinogen Auto test strip Ql (U)Ordered By: Dr. Contreras on 06-13-2022 Urobilinogen Ql (U) Normal mg/dl Normal [facility] Basophil percentageOrdered B y: Dr. Hdz on 05-11-2022 Chloride [Moles/Vol] 99 mmol/L 98-107 [facility] Glucose [Mass/Vol] 118 mg/dL 74-106 [facility] Comment on above: Fasting Glucose resu lt from 100 to 125 mg/dL suggests IMPAIRED HOMEOSTASIS per A.D.A. criteria. Potassium [Moles/Vol] 3.5 mmol/L 3.5-5.1 [facility] Sodium [Moles/Vol] 137 mmol/L 136-145 [facility] Laboratory - Chemistry and C hemistry - challengeOrdered By: Dr. Hdz on 05-11-2022 CO2 [Moles/Vol] 29.0 mmol/L 21.0-32.0 [facility] Urea nitrogen/Creatinine [Mass ratio] 17.4 mg/mg 10-20 [facility] No Panel InformationOrdered By: Dr. Hdz on 05-11-2022 Estimated GFR (MDRD) Amer 81 mL/min >60 [facility] Comment on above: GFR Calc Estimated GFR (MDRD) Non-Af Amer 67 mL/min >60 [facility] Comment on above: Non- GFR Calc Serum or plasma calcium july urement (mass/volume)Ordered By: Dr. Hdz on 05-11-2022 Calcium [Mass/Vol] 9.5 mg/dL 8.5-10.1 [facility] Serum or plasma creatinine m easurement (mass/volume)Ordered By: Dr. Hdz on 05-11-2022 Creatinine [Mass/Vol] 0.86 mg/dL 0.55-1.02 [facility] Comment on above: The validity of the calculated GFR & GFRAA in patients over 70 years has not been determined. Clinical correlation is essential. Serum or plasma urea nitroge n measurement (mass/volume)Ordered By: Dr. Hdz on 05-11-2022 Urea nitrogen [Mass/Vol] 15 mg/dL 7-18 [facility] Thin prep Papanicolaou smear with manual screeningOrdered By: Dr. Hdz on 05-11-2022 Thin prep Papanicolaou smear with manual screening 9 5-15 [facility] Basophil percentageon 2021 Bilirubin [Mass/Vol] 0.40 mg/dL 0.20-1.00 [facility] Work Phone: Comment on above: For patients on eltr ombopag therapy, use of Dimension Groom TBIL is not recommended. Chloride [Moles/Vol] 98 mmol/L 98-107 [facility] Work Phone: Cholesterol [Mass/Vol] 214 mg/dL <200 [facility] Work Phone: Comment on above: <200 mg/dL Desirable 200-240 mg/dL Borderline >240 mg/dL High Risk Glucose [Mass/Vol] 87 mg/dL 74-106 [facility] Work Phone: Potassium [Moles/Vol] 3.7 mmol/L 3.5-5.1 [facility] Work Phone: Protein [Mass/Vol] 7.6 g/dL 6.4-8.2 [facility] Work Phone: Sodium [Moles/Vol] 133 mmol/L 136-145 [facility] Work Phone: Triglyceride [Mass/Vol] 187 mg/dL <199 [facility] Work Phone: Comment on above: The drugs N-Acetylcy steine and Metamizole may falsely depress this assay.Serum Triglycerides Reference Interval Normal <150 mg/dL Borderline high 150 - 199 mg/dL High 200 - 499 mg/dL Very High > or = 500 mg/dL Laboratory - Chemistry and C hemistry - challengeon 12-17-2021 ALP [Catalytic activity/Vol] 92 U/L 45-117 [facility] Work Phone: ALT [Catalytic activity/Vol] 25 U/L 13-56 [facility] Work Phone: CO2 [Moles/Vol] 27.0 mmol/L 21.0-32.0 [facility] Work Phone: Globulin (S) [Mass/Vol] 3.9 g/dL 2.2-4.2 [facility] Work Phone: Urea nitrogen/Creatinine [Mass ratio] 10.9 mg/mg 10-20 [facility] Work Phone: No Panel Informationon 12-17 Estimated GFR (MDRD) Amer 85 mL/min >60 [facility] Work Phone: Comment on above: GFR Calc Estimated GFR (MDRD) Non-Af Amer 70 mL/min >60 [facility] Work Phone: Comment on above: Non- GFR Calc Thyroid Stimulating Hormone (TSH) 1.03 uIU/mL 0.358-3.74 [facility] Work Phone: Serum or plasma albumin july urement (mass/volume)on 12-17-2021 Albumin [Mass/Vol] 3.7 g/dL 3.2-5.0 [facility] Work Phone: Serum or plasma albumin/glob ulin mass ratioon 12-17-2021 Albumin/Globulin [Mass ratio] 0.9 {ratio} 0.9-2.4 [facility] Work Phone: Serum or plasma calcium july urement (mass/volume)on 12-17-2021 Calcium [Mass/Vol] 9.2 mg/dL 8.5-10.1 [facility] Work Phone: Serum or plasma cholesterol in HDL measurement (mass/volume)on 12-17-2021 Cholesterol in HDL [Mass/Vol] 56 mg/dL >40 [facility] Work Phone: Comment on above: The drugs N-Acetylcy steine and Metamizole may falsely depress this assay. Reference Range HDL <40 mg/dL Low HDL Cholesterol HDL >or= 60 mg/dL High HDL Cholesterol Serum or plasma cholesterol in VLDL measurement (mass/volume)on 12-17-2021 Cholesterol in VLDL [Mass/Vol] 37 mg/dL 5-40 [facility] Work Phone: Serum or plasma creatinine m easurement (mass/volume)on 12-17-2021 Creatinine [Mass/Vol] 0.83 mg/dL 0.55-1.02 [facility] Work Phone: Comment on above: The validity of the calculated GFR & GFRAA in patients over 70 years has not been determined. Clinical correlation is essential. Serum or plasma low density lipoprotein (LDL) cholesterol measurement (mass/volume)on 12-17-2021 Cholesterol in LDL [Mass/Vol] 121 mg/dL 0-130 [facility] Work Phone: Serum or plasma urea nitroge n measurement (mass/volume)on 12-17-2021 Urea nitrogen [Mass/Vol] 9 mg/dL 7-18 [facility] Work Phone: Thin prep Papanicolaou smear with manual screeningon 12-17-2021 Thin prep Papanicolaou smear with manual screening 18 U/L 15-37 [facility] Work Phone: Thin prep Papanicolaou smear with manual screening 8 5-15 [facility] Work Phone: Absolute lymphocyte counton 11-17-2021 Lymphocytes Auto (Unsp spec) [#/Vol] 1.32 10*3/uL 0.83-4.51 [facility] Work Phone: Basophil percentageon 2021 Basophils/100 WBC (Bld) 1.4 % 0-1 [facility] Work Phone: Bilirubin [Mass/Vol] 0.40 mg/dL 0.20-1.00 [facility] Work Phone: Comment on above: For patients on eltr ombopag therapy, use of Dimension Groom TBIL is not recommended. Chloride [Moles/Vol] 100 mmol/L 98-107 [facility] Work Phone: Eosinophils/100 WBC (Bld) 2.8 % 0-5 [facility] Work Phone: Glucose [Mass/Vol] 154 mg/dL 74-106 [facility] Work Phone: Comment on above: Fasting Glucose resu lt greater than or equal to 126 mg/dL suggests DIABETES MELLITUS per A.D.A. criteria. Neutrophils (Bld) [#/Vol] 3.4 10*3/uL 2.0-7.7 [facility] Work Phone: Neutrophils/100 WBC (Bld) 59.7 % 47-70 [facility] Work Phone: Potassium [Moles/Vol] 3.1 mmol/L 3.5-5.1 [facility] Work Phone: Protein [Mass/Vol] 7.6 g/dL 6.4-8.2 [facility] Work Phone: Sodium [Moles/Vol] 134 mmol/L 136-145 [facility] Work Phone: WBC (Bld) [#/Vol] 5.7 10*3/uL 4.4-11.0 [facility] Work Phone: Blood erythrocytes count (nu mber/volume)on 11-17-2021 RBC (Bld) [#/Vol] 4.61 10*6/uL 4.2-5.[address] [facility] Work Phone: Blood hemoglobin measurement (mass/volume)on 11-17-2021 Hemoglobin (Bld) [Mass/Vol] 13.3 g/dL 12.0-15.0 [facility] Work Phone: Blood lymphocytes/100 leukoc yteson 11-17-2021 Lymphocytes/100 WBC (Bld) 23.2 % 19-41 [facility] Work Phone: Blood monocytes/100 leukocyt eson 11-17-2021 Monocytes/100 WBC (Bld) 12.5 % 0-10 [facility] Work Phone: Blood platelet mean volumeon 11-17-2021 Platelet mean volume (Bld) [Entitic vol] 10.7 fL 6.2-12.0 [facility] Work Phone: Determination of erythrocyte mean corpuscular volume (MCV)on 11-17-2021 MCV (RBC) [Entitic vol] 87.9 fL 81-99 [facility] Work Phone: Hematocrit Auto (Bld) [Volum e fraction]on 11-17-2021 Hematocrit (Bld) [Volume fraction] 40.5 % 37-47 [facility] Work Phone: Laboratory - Chemistry and C hemistry - challengeon 11-17-2021 ALP [Catalytic activity/Vol] 89 U/L 45-117 [facility] Work Phone: ALT [Catalytic activity/Vol] 28 U/L 13-56 [facility] Work Phone: CO2 [Moles/Vol] 26.0 mmol/L 21.0-32.0 [facility] Work Phone: Globulin (S) [Mass/Vol] 3.9 g/dL 2.2-4.2 [facility] Work Phone: Magnesium [Mass/Vol] 1.9 mg/dL 1.6-2.6 [facility] Work Phone: Urea nitrogen/Creatinine [Mass ratio] 13.1 mg/mg 10-20 [facility] Work Phone: Laboratory - Hematology and Cell countson 11-17-2021 Erythrocyte distribution width (RBC) [Entitic vol] 48.0 fL 35.1-43.9 [facility] Work Phone: Erythrocyte distribution width (RBC) [Ratio] 14.9 % 11.6-14.6 [facility] Work Phone: Immature granulocytes/100 WBC (Bld) 0.400 % 0.0-0.9 [facility] Work Phone: Comment on above: IG% - Immature Granu locytes (promyelocytes, myelocytes and metamyelocytes) > 1% indicates that a LEFT SHIFT is Present. MCH (RBC) [Entitic mass] 28.9 pg 27.0-32.0 [facility] Work Phone: Nucleated RBC/100 WBC (Bld) [Ratio] 0 % 0-5 [facility] Work Phone: MCHC Auto (RBC) [Mass/Vol]on 11-17-2021 MCHC (RBC) [Mass/Vol] 32.8 g/dL 32-36 [facility] Work Phone: No Panel Informationon 11-17 Estimated GFR (MDRD) Amer 63 mL/min >60 [facility] Work Phone: Comment on above: GFR Calc Estimated GFR (MDRD) Non-Af Amer 52 mL/min >60 [facility] Work Phone: Comment on above: Non- GFR Calc Vitamin D 25-Hydroxy 42.5 ng/mL [facility] Work Phone: Comment on above: Vitamin D 25(OH) Sta tus Range Deficiency <20 ng/mL (50nmol/L) Insufficiency 20 - 30 ng/mL (50 - 75 nmol/L) Sufficiency 30 - 100 ng/mL (75 - 250 nmol/L) Toxicity >100 ng/mL (>250 nmol/L) Platelets bldon 11-17-2021 Platelets (Bld) [#/Vol] 264 10*3/uL 150-450 [facility] Work Phone: Serum or plasma albumin july urement (mass/volume)on 11-17-2021 Albumin [Mass/Vol] 3.7 g/dL 3.2-5.0 [facility] Work Phone: Serum or plasma albumin/glob ulin mass ratioon 11-17-2021 Albumin/Globulin [Mass ratio] 0.9 {ratio} 0.9-2.4 [facility] Work Phone: Serum or plasma calcium july urement (mass/volume)on 11-17-2021 Calcium [Mass/Vol] 9.2 mg/dL 8.5-10.1 [facility] Work Phone: Serum or plasma creatinine m easurement (mass/volume)on 11-17-2021 Creatinine [Mass/Vol] 1.07 mg/dL 0.55-1.02 [facility] Work Phone: Comment on above: The validity of the calculated GFR & GFRAA in patients over 70 years has not been determined. Clinical correlation is essential. Serum or plasma urea nitroge n measurement (mass/volume)on 11-17-2021 Urea nitrogen [Mass/Vol] 14 mg/dL 7-18 [facility] Work Phone: Thin prep Papanicolaou smear with manual screeningon 11-17-2021 Thin prep Papanicolaou smear with manual screening 28 U/L 15-37 [facility] Work Phone: Thin prep Papanicolaou smear with manual screening 8 5-15 [facility] Work Phone: Basic Metabolic Panelon 05-0 Calcium [Mass/Vol] 8.5 mg/dL Normal 8.4-10.4 [facility] Comment on above: Performed By: #### P T, CMP3, TROPN, HEMDF, MDIFF #### [place] [address] [place], [place] Glucose [Mass/Vol] 74 mg/dL Normal 70-100 [facility] Comment on above: Performed By: #### P T, CMP3, TROPN, HEMDF, MDIFF #### [place] [address] [address] [place], [place] Anion gap [Moles/Vol] 7 Normal [facility] Comment on above: Performed By: #### P T, CMP3, TROPN, HEMDF, MDIFF #### [place] [address] [address] [place], [place] CO2 [Moles/Vol] 22 mmol/L Normal 22-30 [facility] Comment on above: Performed By: #### P T, CMP3, TROPN, HEMDF, MDIFF #### [place] [address] [address] [place], [place] Creatinine [Mass/Vol] 0.57 mg/dL Normal 0.52-1.25 [facility] Comment on above: Performed By: #### P T, CMP3, TROPN, HEMDF, MDIFF #### [address] [place] [address] [place], [place] GFR/1.73 sq M predicted among blacks MDRD (S/P/Bld) [Vol rate/Area] mL/min/{1.73_m2} Normal >60 [facility] Comment on above: Performed By: #### P T, CMP3, TROPN, HEMDF, MDIFF #### [place] [address] [address] [place], [place] GFR/1.73 sq M predicted among non-blacks MDRD (S/P/Bld) [Vol rate/Area] mL/min/{1.73_m2} Normal >60 [facility] Comment on above: Result Comment: Sour ce- MDRD equation with creatinine calibration to IDMS(NKDEP) eGFR not recommended for drug dose adjustment Performed By: #### P T, CMP3, TROPN, HEMDF, MDIFF #### [place] [address] [address] [place], [place] Urea nitrogen [Mass/Vol] 11 mg/dL Normal 7-20 [facility] Comment on above: Performed By: #### P T, CMP3, TROPItalia HEMMD YESYIFF #### [place] [address] [address] [place], [place] Chloride [Moles/Vol] 111 mmol/L High 98-107 [facility] Comment on above: Performed By: #### P T, CMP3, TROPN HEMYESY, IFF #### [place] [address] [place], [place] Potassium [Moles/Vol] 3.4 mmol/L Low 3.5-5.1 [facility] Comment on above: Performed By: #### P T, CMP3, TROPN HEMSULLY HAYWARD #### [place] [address] [place], [place] Sodium [Moles/Vol] 140 mmol/L Normal 135-145 [facility] Comment on above: Performed By: #### P T, CMP3, TROPItalia HEMMD YESYIFF #### [place] [address] [address] [place], [place] Hemogram w/ Autodiffon 08-16 Abs Baso Cnt 0.1 10*3/uL Normal 0.0-0.2 [facility] Comment on above: Performed By: #### P T, CMP3, TROPN HEMYESY, IFF #### [place] [address] [address] [place], [place] Abs Neutrophile Cnt 6.1 10*3/uL Normal 1.8-7.0 [facility] Comment on above: Performed By: #### P T, CMP3, TROPItalia HEMMD YESYIFF #### [address] Basophils/100 WBC (Bld) 0.6 % Normal 0.0-2.0 [facility] Comment on above: Performed By: #### P T, CMP3, TROPN HEMMD YESYIFF #### [place] [address] [address] [place], [place] Eosinophils (Bld) [#/Vol] 0.3 10*3/uL Normal 0.0-0.5 [facility] Comment on above: Performed By: #### P T, CMP3, TROPN, HEMDF, MDIFF #### [address] Eosinophils/100 WBC (Bld) 3.7 % Normal 1.0-6.0 [facility] Comment on above: Performed By: #### P T, CMP3, TROPN, HEMDF, MDIFF #### [address] Erythrocyte distribution width (RBC) [Ratio] 16.0 % High 11.5-14.5 [facility] Comment on above: Performed By: #### P T, CMP3, TROPN, HEMDF, MDIFF #### [address] Granulocytes/100 WBC (Bld) 66.4 % Normal 40.0-80.0 [facility] Comment on above: Performed By: #### P T, CMP3, TROPN, HEMDF, MDIFF #### [address] Hematocrit (Bld) [Volume fraction] 25.6 % Low 35.0-47.0 [facility] Comment on above: Performed By: #### P T, CMP3, TROPN, HEMDF, MDIFF #### [address] Hemoglobin (Bld) [Mass/Vol] 8.6 g/dL Low 11.7-16.0 [facility] Comment on above: Performed By: #### P T, CMP3, TROPN, HEMDF, MDIFF #### [address] Lymphocytes (Bld) [#/Vol] 1.6 10*3/uL Normal 1.0-4.3 [facility] Comment on above: Performed By: #### P T, CMP3, TROPN, HEMDF, MDIFF #### [place] [address] [address] [place], [place] Lymphocytes/100 WBC (Bld) 17.5 % Low 20.0-40.0 [facility] Comment on above: Performed By: #### P T, CMP3, TROPN HEMYESY, IFF #### [place] [address] [place], [place] MCH (RBC) [Entitic mass] 29.1 pg Normal 26.0-34.0 [facility] Comment on above: Performed By: #### P T, CMP3, TROPN HEMYESY, MDIFF #### [place] [address] [place], [place] MCHC (RBC) [Mass/Vol] 33.8 % Normal 32.0-36.0 [facility] Comment on above: Performed By: #### P T, CMP3, TROPN HEMMD YESYIFF #### [address] MCV (RBC) [Entitic vol] 86.3 fL Normal 79.0-98.0 [facility] Comment on above: Performed By: #### P T, CMP3, TROPItalia HEMYESY, MDIFF #### [place] [address] [place], [place] Monocytes (Bld) [#/Vol] 1.1 10*3/uL High 0.0-0.8 [facility] Comment on above: Performed By: #### P T, CMP3, TROPN, HEMYESY, MDIFF #### [address] Monocytes/100 WBC (Bld) 11.8 % High 2.0-10.0 [facility] Comment on above: Performed By: #### P T, CMP3, TROPN HEMDF, MDIFF #### [address] Platelet mean volume (Bld) [Entitic vol] 7.2 fL Low 7.4-10.4 [facility] Comment on above: Performed By: #### P T, CMP3, TROPN HEMMD YESYIFF #### [place] [address] [address] [place], [place] Platelets (Bld) [#/Vol] 469 10*3/uL High 140-440 [facility] Comment on above: Performed By: #### P T, CMP3, TROPN, HEMYESY, MDIFF #### [place] [address] [address], [place] RBC (Bld) [#/Vol] 2.96 10*6/uL Low 3.80-5.20 [facility] Comment on above: Performed By: #### P T, CMP3, TROPItalia HEMMD YESYIFF #### [address] [place], [place] WBC (Bld) [#/Vol] 9.2 10*3/uL Normal 3.6-10.7 [facility] Comment on above: Performed By: #### P T, CMP3, TROPN HEMYESY, IFF #### [address] [place], [place] Magnesiumon 08-16-2018 Magnesium [Mass/Vol] 2.1 mg/dL Normal 1.6-2.3 [facility] Comment on above: Performed By: #### P T, CMP3, TROPN HEMYESY, IFF #### [address] [place], [place] Phosphoruson 08-16-2018 Phosphate [Mass/Vol] 3.6 mg/dL Normal 2.5-4.5 [facility] Comment on above: Performed By: #### P T, CMP3, TROPNABI MDIFF #### [address] [place], [place] Basic Metabolic Panelon 07-19 Calcium [Mass/Vol] 8.5 mg/dL Normal 8.4-10.4 [facility] Comment on above: Performed By: #### P T, CMP3, TROPN HEMYESY, IFF #### [address] [place], [place] Anion gap [Moles/Vol] 5 Normal [facility] Comment on above: Performed By: #### P T, CMP3, TROPN HEMMD YESYIFF #### [facility] [address] [place], [place] CO2 [Moles/Vol] 22 mmol/L Normal 22-30 [facility] Comment on above: Performed By: #### P T, CMP3, TROPN HEMYESY, MDIFF #### [address] [place], [place] Creatinine [Mass/Vol] 0.62 mg/dL Normal 0.52-1.25 [facility] Comment on above: Performed By: #### P T, CMP3, TROPN HEMMD YESYIFF #### [address] [place], [place] GFR/1.73 sq M predicted among blacks MDRD (S/P/Bld) [Vol rate/Area] mL/min/{1.73_m2} Normal >60 [facility] Comment on above: Performed By: #### P T, CMP3, TROPN, HEMYESY, MDIFF #### [address] [place], [place] GFR/1.73 sq M predicted among non-blacks MDRD (S/P/Bld) [Vol rate/Area] mL/min/{1.73_m2} Normal >60 [facility] Comment on above: Result Comment: Sour ce- MDRD equation with creatinine calibration to IDMS(NKDEP) eGFR not recommended for drug dose adjustment Performed By: #### P T, CMP3, TROPN, HEMYESY, MDIFF #### [facility] [address] [place], [place] Glucose [Mass/Vol] 98 mg/dL Normal 70-100 [facility] Comment on above: Performed By: #### P T, CMP3, TROPN, HEMDF, MDIFF #### [facility] [address] [place], [place] Urea nitrogen [Mass/Vol] 30 mg/dL High 7-20 [facility] Comment on above: Performed By: #### P T, CMP3, TROPN, HEMDF, MDIFF #### [address] [place], [place] Chloride [Moles/Vol] 111 mmol/L High 98-107 [facility] Comment on above: Performed By: #### P T, CMP3, TROPN, HEMDF, MDIFF #### [address] [place], [place] Potassium [Moles/Vol] 3.8 mmol/L Normal 3.5-5.1 [facility] Comment on above: Performed By: #### P T, CMP3, TROPN, HEMDF, MDIFF #### [address] [place], [place] Sodium [Moles/Vol] 138 mmol/L Normal 135-145 [facility] Comment on above: Performed By: #### P T, CMP3, TROPN, HEMDF, MDIFF #### [address] [place], [place] Hemoglobin AND Hematocriton 08-15-2018 Hematocrit (Bld) [Volume fraction] 25.0 % Low 35.0-47.0 [facility] Comment on above: Performed By: #### P T, CMP3, TROPN, HEMDF, MDIFF #### [address] [place], [place] Hemoglobin (Bld) [Mass/Vol] 8.4 g/dL Low 11.7-16.0 [facility] Comment on above: Performed By: #### P T, CMP3, TROPN, HEMDF, MDIFF #### [address] [place], [place] Hemogram w/ Autodiffon 08-15 Erythrocyte distribution width (RBC) [Ratio] 15.3 % High 11.5-14.5 [facility] Comment on above: Performed By: #### P T, CMP3, TROPN, HEMDF, MDIFF #### [address] [place], [place] Hematocrit (Bld) [Volume fraction] 24.2 % Low 35.0-47.0 [facility] Comment on above: Performed By: #### P T, CMP3, TROPN, HEMDF, MDIFF #### [address] [place], [place] Hemoglobin (Bld) [Mass/Vol] 8.3 g/dL Low 11.7-16.0 [facility] Comment on above: Performed By: #### P T, CMP3, TROPN, HEMDF, MDIFF #### [address] [place], [place] MCH (RBC) [Entitic mass] 29.2 pg Normal 26.0-34.0 [facility] Comment on above: Performed By: #### P T, CMP3, TROPN, HEMDF, MDIFF #### [address] MCHC (RBC) [Mass/Vol] 34.3 % Normal 32.0-36.0 [facility] Comment on above: Performed By: #### P T, CMP3, TROPN, HEMDF, MDIFF #### [address] MCV (RBC) [Entitic vol] 85.0 fL Normal 79.0-98.0 [facility] Comment on above: Performed By: #### P T, CMP3, TROPN, HEMDF, MDIFF #### [address] [place], [place] Platelet mean volume (Bld) [Entitic vol] 7.0 fL Low 7.4-10.4 [facility] Comment on above: Performed By: #### P T, CMP3, TROPN, HEMDF, MDIFF #### [address] Platelets (Bld) [#/Vol] 478 10*3/uL High 140-440 [facility] Comment on above: Performed By: #### P T, CMP3, TROPN, HEMDF, MDIFF #### [address] RBC (Bld) [#/Vol] 2.85 10*6/uL Low 3.80-5.20 [facility] Comment on above: Performed By: #### P T, CMP3JABARI HEMDF, MDIFF #### [address] [place], [place] WBC (Bld) [#/Vol] 15.8 10*3/uL High 3.6-10.7 [facility] Comment on above: Performed By: #### P T, CMP3, TROPABI Echavarria MDIFF #### [address] [place], [place] Magnesiumon 08-15-2018 Magnesium [Mass/Vol] 2.1 mg/dL Normal 1.6-2.3 [facility] Comment on above: Performed By: #### P T, CMP3, TROPABI Echavarria MDIFF #### [address] [place], [place] Manual Diffon 08-15-2018 Abs Lymph Cnt 2.2 10*3/uL Normal 1.1-4.5 [facility] Comment on above: Performed By: #### P T, CMP3 TROPABI Echavarria MDIFF #### [address] Abs Monocyte Cnt 0.3 10*3/uL Normal 0.2-1.1 [facility] Comment on above: Performed By: #### P T, CMP3, TROPABI Echavarria MDIFF #### [address] [place], [place] Abs Neutrophile Cnt 13.3 10*3/uL High 2.2-8.2 [facility] Comment on above: Performed By: #### P T, CMP3JABARI HEMDF, MDIFF #### [address] Anisocytosis Ql (Bld) Slight Normal [facility] Comment on above: Performed By: #### P T, CMP3, TROPABI Echavarria MDIFF #### [address] [place], [place] Bands 5 % High 0-3 [facility] Comment on above: Performed By: #### P T, CMP3, TROPN, HEMDF, MDIFF #### [address] [place], [place] Hypochromia Slight Normal [facility] Comment on above: Performed By: #### P T, CMP3, TROPN, HEMDF, MDIFF #### [address] [place], [place] Lymphocytes 14 % Low 20-40 [facility] Comment on above: Performed By: #### P T, CMP3, TROPN, HEMDF, MDIFF #### [address] [place], [place] Monocytes 2 % Normal 2-10 [facility] Comment on above: Performed By: #### P T, CMP3, TROPN, HEMDF, MDIFF #### [address] [place], [place] Poikilocytosis Slight Normal [facility] Comment on above: Performed By: #### P T, CMP3, TROPN, HEMDF, MDIFF #### [address] [place], [place] Polychromasia Slight Normal [facility] Comment on above: Performed By: #### P T, CMP3, TROPN, HEMDF, MDIFF #### [address] [place], [place] Seg Neutrophils 79 % Normal 40-80 [facility] Comment on above: Performed By: #### P T, CMP3, TROPN, HEMDF, MDIFF #### [address] [place], [place] Abs Baso Cnt 0.0 10*3/uL Normal 0.0-0.2 [facility] Comment on above: Performed By: #### P T, CMP3, TROPN, HEMDF, MDIFF #### [address] [place], [place] Abs Eosin Cnt 0.0 10*3/uL Normal 0.0-0.5 [facility] Comment on above: Performed By: #### P T, CMP3, TROPN, HEMYESY, MDIFF #### [facility] [address] [place] [address] Basophils 0 % Normal 0-2 [facility] Comment on above: Performed By: #### P T, CMP3, TROPN, HEMDF, MDIFF #### [facility] [address] [place] [address] Cells counted 100 Normal [facility] Comment on above: Performed By: #### P T, CMP3, TROPN, HEMDF, MDIFF #### [facility] [address] [place], [place] Eosinophils 0 % Low 1-6 [facility] Comment on above: Performed By: #### P T, CMP3, TROPN, HEMYESY, MDIFF #### [address] [place] [address] Phosphoruson 08-15-2018 Phosphate [Mass/Vol] 3.4 mg/dL Normal 2.5-4.5 [facility] Comment on above: Performed By: #### P T, CMP3, TROPItalia HEMYESY, MDIFF #### [address] [place] [address] Surgical Pathologyon 019 Surgical Pathology [id number] [facility] DE[facility]MENT [facility] PATHOLOGY AND LABORATORY MEDICINE [facility] [address] [place], [place] [id number] FINAL SURGICAL PATHOLOGY REPORT ___ NAME: XAVIER RAHMAN : 1940 78 Y F BILLING NO.: [id number] LOCATION: [address] [place] [address] B PROCEDURE 08/15/2018 DATE: SURGEON: ZACK PEREZ MD RECEIVED 08/16/2018 DATE: ATTENDING: BETSY MCGREGOR M.D. REPORT DATE: 08/18/2018 COPIES TO: ___ DIAGNOSIS: STOMACH, ANTRUM, BIOPSY - UNREMARKABLE GASTRIC MUCOSA. COMMENT: Evaluation of the H&E-stained sections shows no evidence of Helicobacter pylori or any morphologic features to suggest infection with the organism; as such, further studies for Helicobacter are not indicated. There is no evidence of intestinal metaplasia, dysplasia or malignancy. Reference: Facundo SANTAMARIA et al. Appropriate use of special stains for identifying Helicobacter pylori: Recommendations from the [employer] Gastrointestinal [employer] Society. Am J Surge Pathos. 2013 Nov;37(11):e12-22. EB2/0RW Signature> S RAZIA SALINAS M.D. ___ CLINICAL INFORMATION: Bleed SPECIMEN: GASTRIC BIOPSY ___ GROSS DESCRIPTION: Antral biopsy Received in formalin are two segments of white rollins soft tissue 0.2 cm each. Submitted in toto. (2 ns, 1) JCK/JAYLIN Disclaimer: The following statement applies to all immunohistochemistry, in situ hybridization, molecular studies, and immunofluorescence testing. The use of one or more reagents in the above tests is regulated as an analyte specific reagent (ASR). These tests were developed and their performance characteristics determined by the clinical laboratories of [facility] [employer] [facility]. They have not been cleared by the US Food and Drug Administration (FDA). The FDA has determined that such clearance or approval is not necessary. All the above immunostains were performed on paraffin embedded tissue. Appropriate positive and negative controls (where applicable) were run in parallel with the patient's specimen; these controls showed expected staining pattern, with acceptable intensity of staining. Immunohistochemical assays have not been validated on decalcified tissues. Results should be interpreted with caution given the raised possibility of false negativity on decalcified specimens. Professional Performing Location: [place] [address]. DEPARTMENT OF PATHOLOGY AND LABORATORY MEDICINE [place], [place] [address] Normal [facility] CR Chest Portableon 08-15-19 19 CR Chest Portable Patient Name: XAVIER RAHMAN Diagnostic Radiology Exam Date/Time 08/14/2018 13:50:44 EDT Exam CR Chest Portable Ordering Physician LOPEZ LEI MADALINA Accession Number [id number] CPT4 Codes 48887 () Reason For Exam recent 5-11 broken ribs and hemothorax Report PORTABLE CHEST CLINICAL INDICATION: Left hemothorax and rib fractures TECHNIQUE: Portable AP COMPARISON: 08/10/2018 FINDINGS: Interval decrease in size of a left pleural effusion with left basilar atelectasis. Right lung is clear. No pneumothorax. The heart demonstrates normal size. Calcification of the thoracic aorta is noted. Again noted is multiple left-sided displaced rib fractures, similar compared to the prior exam. Skin yael noted overlying the left chest wall. IMPRESSION: 1. Small left pleural effusion with left basilar atelectasis, improved compared to prior exam from 08/10/2018. 2. Multiple displaced left-sided rib fractures, similar to the prior exam. Report Dictated on Workstation: [id number] Final Dictated: 08/14/2018 1:50 pm Dictating Physician: MD WASHINGTON KEVIN Signed Date and Time: 08/14/2018 1:52 pm Signed by: MD WASHINGTON KEVIN Transcribed Date and Time: 08/14/2018 1:50 Normal [facility] Comp Metabolic Panelon 08-14 ALT [Catalytic activity/Vol] 27 U/L Normal 13-69 [facility] Comment on above: Result Comment: Slig htly hemolysed, interpret with caution. Performed By: #### P T, CMP3, TROPN, HEMDF, MDIFF #### [facility] [address] [place], [place] ALP [Catalytic activity/Vol] 69 U/L Normal 38-126 [facility] Comment on above: Result Comment: Slig htly hemolysed, interpret with caution. Performed By: #### P T, CMP3, TROPN, HEMDF, MDIFF #### [facility] [address] [place], [place] Anion gap [Moles/Vol] 10 Normal [facility] Comment on above: Performed By: #### P T, CMP3, TROPN, HEMDF, MDIFF #### [facility] [address] [place], [place] AST [Catalytic activity/Vol] 37 U/L Normal 15-46 [facility] Comment on above: Result Comment: Slig htly hemolysed, interpret with caution. Performed By: #### P T, CMP3, TROPN, HEMDF, MDIFF #### [facility] [address] [place], [place] Bilirubin [Mass/Vol] 0.5 mg/dL Normal 0.2-1.3 [facility] Comment on above: Performed By: #### P T, CMP3, TROPN, HEMDF, MDIFF #### [address] [place], [place] Calcium [Mass/Vol] 8.9 mg/dL Normal 8.4-10.4 [facility] Comment on above: Performed By: #### P T, CMP3, TROPN, HEMDF, MDIFF #### [facility] [address] [place], [place] CO2 [Moles/Vol] 22 mmol/L Normal 22-30 [facility] Comment on above: Performed By: #### P T, CMP3, TROPN, HEMDF, MDIFF #### [address] [place], [place] Creatinine [Mass/Vol] 0.75 mg/dL Normal 0.52-1.25 [facility] Comment on above: Performed By: #### P T, CMP3, TROPABI Echavarria MDIFF #### [facility] [address] [place] [address] GFR/1.73 sq M predicted among blacks MDRD (S/P/Bld) [Vol rate/Area] mL/min/{1.73_m2} Normal >60 [facility] Comment on above: Performed By: #### P T, CMP3, TROPN HEMSULLY HAYWARD #### [facility] [address] [place], [place] GFR/1.73 sq M predicted among non-blacks MDRD (S/P/Bld) [Vol rate/Area] mL/min/{1.73_m2} Normal >60 [facility] Comment on above: Result Comment: Sour ce- MDRD equation with creatinine calibration to IDMS(NKDEP) eGFR not recommended for drug dose adjustment Performed By: #### P T, CMP3, TROPABI Echavarria MDIFF #### [facility] [address] [place], [place] Glucose [Mass/Vol] 129 mg/dL High 70-100 [facility] Comment on above: Performed By: #### P T, CMP3 TROPABI Echavarria MDIFF #### [facility] [address] [place], [place] Protein [Mass/Vol] 6.2 g/dL Low 6.3-8.2 [facility] Comment on above: Performed By: #### P T, CMP3, TROPN HEMSULLY HAYWARD #### [facility] [address] [place], [place] Urea nitrogen [Mass/Vol] 40 mg/dL High 7-20 [facility] Comment on above: Performed By: #### P T, CMP3, TROPItalia HEMSULLY HAYWARD #### [facility] [address] [place], [place] Albumin [Mass/Vol] 3.3 g/dL Low 3.5-5.0 [facility] Comment on above: Performed By: #### P T, CMP3, TROPN HEMSULLY HAYWARD #### [address] [place], [place] Chloride [Moles/Vol] 106 mmol/L Normal 98-107 [facility] Comment on above: Performed By: #### P T, CMP3, TROPABI Echavarria, SULLY #### [address] [place], [place] Potassium [Moles/Vol] 4.4 mmol/L Normal 3.5-5.1 [facility] Comment on above: Result Comment: Slig htly hemolysed, interpret with caution. Performed By: #### P T, CMP3, ABI BARBOZA MDIFF #### [address] [place], [place] Sodium [Moles/Vol] 138 mmol/L Normal 135-145 [facility] Comment on above: Performed By: #### P T, CMP3, TROPABI Echavarria MDIFF #### [address] [place], [place] Fecal Occult,Stool Single Sp econ 08-14-2018 Fecal Occult,Stool Single Spec Positive Normal Negative [facility] Comment on above: Performed By: #### P T, CMP3JABARI HEMDF, MDIFF #### [address] [place], [place] Hemogram w/ Autodiffon 08-14 Abs Baso Cnt 0.1 10*3/uL Normal 0.0-0.2 [facility] Comment on above: Performed By: #### P T, CMP3, TROPN, HEMYESY, MDIFF #### [address] [place], [place] Abs Neutrophile Cnt 11.6 10*3/uL High 1.8-7.0 [facility] Comment on above: Performed By: #### P T, CMP3, TROPN HEMYESY, IFF #### [address] [place], [place] Basophils/100 WBC (Bld) 0.7 % Normal 0.0-2.0 [facility] Comment on above: Performed By: #### P T, CMP3, TROPN, HEMDF, MDIFF #### [address] [place] Eosinophils (Bld) [#/Vol] 0.0 10*3/uL Normal 0.0-0.5 [facility] Comment on above: Performed By: #### P T, CMP3, TROPN, HEMDF, MDIFF #### [address] [place] Eosinophils/100 WBC (Bld) 0.2 % Low 1.0-6.0 [facility] Comment on above: Performed By: #### P T, CMP3, TROPN, HEMDF, MDIFF #### [address] [place], [place] Erythrocyte distribution width (RBC) [Ratio] 16.7 % High 11.5-14.5 [facility] Comment on above: Performed By: #### P T, CMP3, TROPN, HEMDF, MDIFF #### [address] [place], [place] Granulocytes/100 WBC (Bld) 81.6 % High 40.0-80.0 [facility] Comment on above: Performed By: #### P T, CMP3, TROPN, HEMDF, MDIFF #### [address] [place], [place] Hematocrit (Bld) [Volume fraction] 20.1 % Low 35.0-47.0 [facility] Comment on above: Performed By: #### P T, CMP3, TROPN, HEMDF, MDIFF #### [address] [place], [place] Hemoglobin (Bld) [Mass/Vol] 6.5 g/dL Critically low 11.7-16.0 [facility] Comment on above: Result Comment: REPE ATED Performed By: #### P T, CMP3, TROPN, HEMDF, MDIFF #### [address] [place], [place] Lymphocytes (Bld) [#/Vol] 1.6 10*3/uL Normal 1.0-4.3 [facility] Comment on above: Performed By: #### P T, CMP3, TROPN, HEMDF, MDIFF #### [address] [place], [place] Lymphocytes/100 WBC (Bld) 11.0 % Low 20.0-40.0 [facility] Comment on above: Performed By: #### P T, CMP3, TROPN, HEMDF, MDIFF #### [address] [place], [place] MCH (RBC) [Entitic mass] 27.2 pg Normal 26.0-34.0 [facility] Comment on above: Performed By: #### P T, CMP3, TROPN, HEMDF, MDIFF #### [address] MCHC (RBC) [Mass/Vol] 32.2 % Normal 32.0-36.0 [facility] Comment on above: Performed By: #### P T, CMP3, TROPN, HEMDF, MDIFF #### [address] MCV (RBC) [Entitic vol] 84.6 fL Normal 79.0-98.0 [facility] Comment on above: Performed By: #### P T, CMP3, TROPN, HEMDF, MDIFF #### [address] [place], [place] Monocytes (Bld) [#/Vol] 0.9 10*3/uL High 0.0-0.8 [facility] Comment on above: Performed By: #### P T, CMP3, TROPN, HEMDF, MDIFF #### [address] Monocytes/100 WBC (Bld) 6.5 % Normal 2.0-10.0 [facility] Comment on above: Performed By: #### P T, CMP3, TROPN, HEMDF, MDIFF #### [address] Platelet mean volume (Bld) [Entitic vol] 7.1 fL Low 7.4-10.4 [facility] Comment on above: Performed By: #### P T, CMP3JABARI HEMDF, MDIFF #### [facility] [address] [place], [place] Platelets (Bld) [#/Vol] 654 10*3/uL High 140-440 [facility] Comment on above: Performed By: #### P T, CMP3, TROPABI Echavarria, IFF #### [facility] [address] [place], [place] RBC (Bld) [#/Vol] 2.38 10*6/uL Low 3.80-5.20 [facility] Comment on above: Performed By: #### P T, CMP3, TROPABI Echavarria MDIFF #### [address] [place], [place] WBC (Bld) [#/Vol] 14.2 10*3/uL High 3.6-10.7 [facility] Comment on above: Performed By: #### P T, CMP3JABARI HEMDF, MDIFF #### [address] [place], [place] Leukodepleted Red Cellson Leukodepleted Red Cells Leukodepleted Re d Cells: [id number] transfused 08/14/18 19:04 JMV Unit Blood Type: O Unit Blood Rh: POS Blood Product Code: AS3 Unit Number: [id number] Unit Status: transfused Barcoded Unit Number: =[id number] Barcoded Product Code: = Barcoded ABO/Rh: =%5100 Unit Expiration: Unit Volume Transfused: 300 Unit Transfusion Start Date/Time: Normal [facility] Comment on above: Performed By: #### P T, CMP3, TROPABI Echavarria MDIFF #### [address] [place], [place] Leukodepleted Red Cells Leukodepleted Re d Cells: [id number] transfused 08/14/18 15:17 JMV Unit Blood Type: O Unit Blood Rh: POS Blood Product Code: LP Unit Number: [id number] Unit Status: transfused Barcoded Unit Number: =[id number] Barcoded Product Code: = Barcoded ABO/Rh: =%5100 Unit Expiration: Unit Volume Transfused: 300 Unit Transfusion Start Date/Time: Normal [facility] Comment on above: Performed By: #### P T, CMP3, TROPN, HEMYESY, MDIFF #### [facility] [address] [place], [place] Prothrombin Timeon 9 INR Coag (PPP) [Relative time] 1.1 Normal 0.9-1.1 [facility] Comment on above: Result Comment: Oliver mmended Anticoagulant Therapy: SEE BELOW ----- INR of 2.0 - 3.0 : - Prophylaxis of Venous Thrombosis (high-risk surgery) - Treatment of Venous Thrombosis - Treatment of Pulmonary Embolism (Includes tissue heart valves, Acute Myocardial Infarction to prevent systemic embolism, Valvular Heart Disease, and Atrial Fibrillation) ----- INR of 2.5 - 3.5 : - Mechanical Prosthetic Valves (high risk) - If oral anticoagulant therapy is used to prevent Myocardial Infarction Performed By: #### P T, CMP3, TROPN, HEMDF, MDIFF #### [facility] [address] [place], [place] PT Coag (PPP) [Time] 11.4 s Normal 9.0-12.0 [facility] Comment on above: Result Comment: . Performed By: #### P T, CMP3, TROPN, HEMDF, MDIFF #### [facility] [address] [place], [place] TS GELon 08-14-2018 TS GEL ABO Group: O Rh, Gel: POS Antibody Screen Gel: NEG Normal [facility] Comment on above: Performed By: #### P T, CMP3, TROPN, HEMDF, MDIFF #### [facility] [address] [place], [place] Troponin Ion 08-14-2018 Troponin I.cardiac [Mass/Vol] ng/mL Normal 0.000-0.034 [facility] Comment on above: Result Comment: 0.04 6 - 0.400 = Indeterminate > 0.400 = Consider Myocardial Injury Performed By: #### P T, CMP3, TROPN, HEMYESY, IFF #### [facility] [address] [place] [address] CR Chest Portableon 08-11-19 19 CR Chest Portable Patient Name: XAVIER RAHMAN Diagnostic Radiology Exam Date/Time 08/10/2018 07:38:14 EDT Exam CR Chest Portable Ordering Physician [id number] RED Accession Number [id number] CPT4 Codes 23817 () Reason For Exam left hemothorax Report EXAM TYPE: RADIOLOGIC EXAMINATION, CHEST, SINGLE VIEW FRONTAL (CXR SINGLE VIEW) EXAM DATE AND TIME: 08/10/2018 7:38 AM EDT INDICATION: Left hemothorax. COMPARISON: Chest radiograph on 08/09/2018 TECHNIQUE: A single frontal view of the thorax was obtained and reviewed. Special views: None. FINDINGS: 1. Lines/Tubes/Devices/Fredo dware: Surgical clips along the left chest wall. 2. Lungs: Left basilar atelectasis/consolidati on. Interstitial prominence, unchanged. 3. Pleura: No change in mild to moderate left-sided effusion/hemothorax. No visualized pneumothorax. 4. Heart and mediastinum: Unchanged cardiomediastinal contours. 5. Osseous structures: Redemonstration of left-sided displaced rib fractures. IMPRESSION: No change in mild to moderate left-sided effusion/hemothorax. No significant change. Report Dictated on Final Dictated: 08/10/2018 10:18 am Dictating Physician: MD STALEY NEIL Signed Date and Time: 08/10/2018 10:20 am Signed by: MD STALEY NEIL Transcribed Date and Time: 08/10/2018 10:18 Normal [facility] VL Venous Duplex US Lower Ex t Bilateralon 08-10-2018 VL Venous Duplex US Lower Ext Bilateral Patient Name: XAVIER RAHMAN Ultrasound Exam Date/Time 08/10/2018 10:03:25 EDT Exam VL Venous Duplex US Lower Ext Bilateral Ordering Physician [id number] -NATTY PARKINSON Accession Number [id number] CPT4 Codes 53577 () Reason For Exam edema Report [facility] ------ --- Lower Extremity Venous Duplex Report Patient Name: Xavier Rahman : 1940 Study Date: 08/10/2018 (78yrs) Age: 78 Account: [id number] Gender: F Loc: 1337 BP: Ordering: Natty Parkinson Technologist: Ordering Physician: Natty Parkinson Sales Correspondent: Renee Lord [facility] Interpreting Physician: Jose Carpenter ------ --- Location: [facility] ------ --- INDICATIONS: Edema. Bilateral calf edema. ------ --- CONCLUSIONS 1. Normal venous duplex ------ --- IMPRESSIONS: These findings are negative for deep or superficial vein thrombosis in the bilateral lower extremities. ------ --- STUDY DATA: Complete lower extremity venous duplex evaluation. Birthdate: Patient birthdate: 1940. Age: Patient is 78 yr old. Sex: Gender: female. Ethnicity: Ethnicity: white. Doppler flow study including spectral analysis, color and rollins scale imaging. Patient status: Inpatient. Procedure: A vascular evaluation was performed. The images were obtained using a [employer] E9 vascular ultrasound machine. ------ --- VENOUS FLOW AND IMAGING: + -------+-------+------- ------ --+ !Location !Overall!Flow properties ! + -------+-------+------- ------ --+ !Right common femoral !Patent !Normal phasicity; spontaneous; normal ! ! ! !augmentation; compressible ! + -------+-------+------- ------ --+ !Right saphenofemoral junction!Patent !Compressible ! + -------+-------+------- ------ --+ !Right profunda femoral !Patent !Spontaneous ! + -------+-------+------- ------ --+ !R femoral proximal !Patent !Compressible ! + -------+-------+------- ------ --+ !R femoral mid !Patent !Normal phasicity; spontaneous; normal ! ! ! !augmentation; compressible ! + -------+-------+------- ------ --+ !R femoral distal !Patent !Compressible ! + -------+-------+------- ------ --+ !Right popliteal !Patent !Normal phasicity; spontaneous; normal ! ! ! !augmentation; compressible ! + -------+-------+------- ------ --+ !Right gastrocnemius !Patent !Compressible ! + -------+-------+------- ------ --+ !Right posterior tibial !Patent !Compressible ! + -------+-------+------- ------ --+ !Right peroneal !Patent !Compressible ! + -------+-------+------- ------ --+ !Right soleal !Patent !Compressible ! + -------+-------+------- ------ --+ !Right greater saphenous !Patent !Compressible ! + -------+-------+------- ------ --+ !Left common femoral !Patent !Normal phasicity; spontaneous; normal ! ! ! !augmentation; compressible ! + -------+-------+------- ------ --+ !Left saphenofemoral junction !Patent !Compressible ! + -------+-------+------- ------ --+ !Left profunda femoral !Patent !Spontaneous ! + -------+-------+------- ------ --+ !L femoral proximal !Patent !Compressible ! + -------+-------+------- ------ --+ !L femoral mid !Patent !Normal phasicity; spontaneous; normal ! ! ! !augmentation; compressible ! + -------+-------+------- ------ --+ !L femoral distal !Patent !Compressible ! + -------+-------+------- ------ --+ !Left popliteal !Patent !Normal phasicity; spontaneous; normal ! ! ! !augmentation; compressible ! + -------+-------+------- ------ --+ !Left gastrocnemius !Patent !Compressible ! + -------+-------+------- ------ --+ !Left posterior tibial !Patent !Compressible ! + -------+-------+------- ------ --+ !Left peroneal !Patent !Compressible ! + -------+-------+------- ------ --+ !Left soleal !Patent !Compressible ! + -------+-------+------- ------ --+ !Left greater saphenous !Patent !Compressible ! + -------+-------+------- ------ --+ Electronically signed by: Jose Carpenter [id number] Final Dictated: 08/10/2018 2:20 pm Dictating Physician: JOSE CARPENTER Signed Date and Time: 08/10/2018 2:20 pm Signed by: JOSE CARPENTER [facility] CR Chest Portableon 08-10-19 19 CR Chest Portable Patient Name: XAVIER RAHMAN Diagnostic Radiology Exam Date/Time 08/09/2018 16:12:08 EDT Exam CR Chest Portable Ordering Physician ADRIAN NIEVES JULIE Accession Number [id number] CPT4 Codes 25270 () Reason For Exam chest tube removal Report EXAM TYPE: RADIOLOGIC EXAMINATION, CHEST, SINGLE VIEW FRONTAL (CXR SINGLE VIEW) EXAM DATE AND TIME: 08/09/2018 4:12 PM EDT INDICATION: Chest tube removal COMPARISON: Chest radiograph on 08/09/2018 TECHNIQUE: A single frontal view of the thorax was obtained and reviewed. Special views: None. FINDINGS: 1. Lines/Tubes/Devices/Fredo dware: Interval removal of the left apical chest tube. Similar soft tissue swelling and skin yael along the left chest wall. 2. Lungs: Redemonstration of left retrocardiac airspace opacity and small left effusion, unchanged. Interstitial prominence, unchanged. 3. Pleura: No visualized pneumothorax. Small left effusion. 4. Heart and mediastinum: Unchanged cardiomediastinal contours. 5. Osseous structures: Left-sided rib fractures are redemonstrated. IMPRESSION: Interval removal of left apical chest tube. No large pneumothorax. Redemonstration of left retrocardiac airspace opacity and small left effusion, unchanged. Interstitial prominence, unchanged. Report Dictated on Final Dictated: 08/09/2018 8:01 pm Dictating Physician: MD STALEY NEIL Signed Date and Time: 08/09/2018 8:05 pm Signed by: MD STALEY NEIL Transcribed Date and Time: 08/09/2018 8:01 Normal [facility] CR Chest Portable Patient Name: XAVIER RAHMAN Diagnostic Radiology Exam Date/Time 08/09/2018 07:06:40 EDT Exam CR Chest Portable Ordering Physician [id number] RED Accession Number [id number] CPT4 Codes 63962 () Reason For Exam left hemothorax Report PORTABLE CHEST X-RAY CLINICAL INDICATION: Left-sided hemothorax A portable frontal view of the chest was obtained. COMPARISON: 08/08/2018 FINDINGS: The heart size is within normal limits. Left-sided chest tube is unchanged. There is left retrocardiac infiltrate and small left pleural effusion, similar to the prior examination. There is no evidence of pneumothorax. Left-sided rib fractures are again noted. The right lung is grossly clear. IMPRESSION: No significant change when compared with the previous study. Report Dictated on Final Dictated: 08/09/2018 7:24 am Dictating Physician: MD MCKEON JONATHAN R Signed Date and Time: 08/09/2018 7:25 am Signed by: MD MCKEON JONATHAN R Transcribed Date and Time: 08/09/2018 7:24 Normal [facility] CR Chest Portableon 08-09-19 CR Chest Portable Patient Name: XAVIER RAHMAN Diagnostic Radiology Exam Date/Time 08/08/2018 07:36:58 EDT Exam CR Chest Portable Ordering Physician Adarsh DUCKWORTH NATTY Accession Number [id number] CPT4 Codes 48297 () Reason For Exam left hemothorax Report Examination: Portable chest Indication: left hemothorax Comparison: Previous day Findings: The overall appearance is somewhat similar. One of the left-sided chest tubes has been removed. The apical chest tube remains on the left. There may be a tiny apical pneumothorax. Infiltrate, scar or atelectasis of the left lung base is again noted. The right hemithorax is clear. The cardiac silhouette is borderline. Impression: As above. Report Dictated on Workstation: [id number] Final Dictated: 08/08/2018 8:51 am Dictating Physician: MD DORADO KRIKOR Signed Date and Time: 08/08/2018 8:51 am Signed by: MD DORADO KRIKOR Transcribed Date and Time: 08/08/2018 8:51 Normal [facility] CR Chest Portableon 08-08-19 19 CR Chest Portable Patient Name: XAVIER RAHMAN Diagnostic Radiology Exam Date/Time 08/07/2018 07:07:35 EDT Exam CR Chest Portable Ordering Physician Adarsh NielsonNATTY PARKINSON Accession Number [id number] CPT4 Codes 68290 () Reason For Exam left hemothorax Report CHEST (Frontal View) History: Left pneumothorax Comparison: 08/06/2018 Findings: Frontal portable chest view shows left basilar atelectasis/infiltrate and small pleural effusion, not significantly changed from the prior exam. There is tiny left apical pneumothorax. There are left ribs fractures with two left chest tubes, and chest wall surgical clips. There is no mediastinal widening or other significant interval change. Report Dictated on Final Dictated: 08/07/2018 7:25 am Dictating Physician: MD COWART AHMAD Signed Date and Time: 08/07/2018 7:29 am Signed by: MD COWART AHMAD Transcribed Date and Time: 08/07/2018 7:25 Normal [facility] Hemogramon 08-07-2018 Erythrocyte distribution width (RBC) [Ratio] 16.1 % High 11.5-14.5 [facility] Comment on above: Performed By: #### P T, CMP3, TROPABI Echavarria MDIFF #### [address] [address] [place], [place] Hematocrit (Bld) [Volume fraction] 28.8 % Low 35.0-47.0 [facility] Comment on above: Performed By: #### P T, CMP3, TROPItalia HEMMD YESYIFF #### [address] [address] [place], [place] Hemoglobin (Bld) [Mass/Vol] 9.3 g/dL Low 11.7-16.0 [facility] Comment on above: Performed By: #### P T, CMP3, TROPABI Echavarria MDIFF #### [address] MCH (RBC) [Entitic mass] 27.8 pg Normal 26.0-34.0 [facility] Comment on above: Performed By: #### P T, CMP3, TROPABI Echavarria MDIFF #### [address] MCHC (RBC) [Mass/Vol] 32.4 % Normal 32.0-36.0 [facility] Comment on above: Performed By: #### P T, CMP3, TROPItalia HEMMD YESYIFF #### [address] MCV (RBC) [Entitic vol] 85.9 fL Normal 79.0-98.0 [facility] Comment on above: Performed By: #### P T, CMP3, TROPN HEMMD YESYIFF #### [address] Platelet mean volume (Bld) [Entitic vol] 7.1 fL Low 7.4-10.4 [facility] Comment on above: Performed By: #### P T, CMP3, TROPN, HEMYESY, MDIFF #### [facility] [address] [place], [place] Platelets (Bld) [#/Vol] 486 10*3/uL High 140-440 [facility] Comment on above: Performed By: #### P T, CMP3, TROPN, HEMYESY, MDIFF #### [facility] [address] [place], [place] RBC (Bld) [#/Vol] 3.35 10*6/uL Low 3.80-5.20 [facility] Comment on above: Performed By: #### P T, CMP3, TROPItalia, HEMYESY, IFF #### [facility] [address] [place], [place] WBC (Bld) [#/Vol] 9.1 10*3/uL Normal 3.6-10.7 [facility] Comment on above: Performed By: #### P T, CMP3, TROPN, HEMYESY, MDIFF #### [facility] [address] [place], [place] VL Venous Duplex US Lower Ex t Bilateralon 08-07-2018 VL Venous Duplex US Lower Ext Bilateral Patient Name: XAVIER RAHMAN Ultrasound Exam Date/Time 08/07/2018 09:03:04 EDT Exam VL Venous Duplex US Lower Ext Bilateral Ordering Physician NATTY DILLARD Accession Number [id number] CPT4 Codes 55074 () Reason For Exam edema Report [facility] ------ --- Lower Extremity Venous Duplex Report Patient Name: Xavier Rahman : 1940 Study Date: 08/07/2018 (78yrs) Age: 78 Account: [id number] Gender: F Loc: 1337 BP: Ordering: Natty Parkinson Technologist: Ordering Physician: Natty Parkinson Sales Correspondent: Michelle Caicedo RVT Interpreting Physician: Jose Carpenter ------ --- Location: [facility] ------ --- INDICATIONS: Edema. bilateral lowers ------ --- CONCLUSIONS 1. Normal venous duplex ------ --- IMPRESSIONS: These findings are negative for deep or superficial vein thrombosis in the bilateral lower extremities. ------ --- STUDY DATA: Complete lower extremity venous duplex evaluation. Birthdate: Patient birthdate: 1940. Age: Patient is 78 yr old. Sex: Gender: female. Ethnicity: Ethnicity: white. Doppler flow study including spectral analysis, color and rollins scale imaging. Patient status: Inpatient. ------ --- VENOUS FLOW AND IMAGING: + -------+-------+------- ------ --+ !Location !Overall!Flow properties ! + -------+-------+------- ------ --+ !Right common femoral !Patent !Normal phasicity; spontaneous; normal ! ! ! !augmentation; compressible ! + -------+-------+------- ------ --+ !Right saphenofemoral junction!Patent !Compressible ! + -------+-------+------- ------ --+ !Right profunda femoral !Patent !Normal phasicity; spontaneous; normal ! ! ! !augmentation ! + -------+-------+------- ------ --+ !R femoral proximal !Patent !Compressible ! + -------+-------+------- ------ --+ !R femoral mid !Patent !Normal phasicity; spontaneous; normal ! ! ! !augmentation; compressible ! + -------+-------+------- ------ --+ !R femoral distal !Patent !Compressible ! + -------+-------+------- ------ --+ !Right popliteal !Patent !Normal phasicity; spontaneous; normal ! ! ! !augmentation; compressible ! + -------+-------+------- ------ --+ !Right gastrocnemius !Patent !Compressible ! + -------+-------+------- ------ --+ !Right posterior tibial !Patent !Compressible ! + -------+-------+------- ------ --+ !Right peroneal !Patent !Compressible ! + -------+-------+------- ------ --+ !Right soleal !Patent !Compressible ! + -------+-------+------- ------ --+ !Right greater saphenous !Patent !Compressible ! + -------+-------+------- ------ --+ !Left common femoral !Patent !Normal phasicity; spontaneous; normal ! ! ! !augmentation; compressible ! + -------+-------+------- ------ --+ !Left saphenofemoral junction !Patent !Compressible ! + -------+-------+------- ------ --+ !Left profunda femoral !Patent !Normal phasicity; spontaneous; normal ! ! ! !augmentation ! + -------+-------+------- ------ --+ !L femoral proximal !Patent !Compressible ! + -------+-------+------- ------ --+ !L femoral mid !Patent !Normal phasicity; spontaneous; normal ! ! ! !augmentation; compressible ! + -------+-------+------- ------ --+ !L femoral distal !Patent !Compressible ! + -------+-------+------- ------ --+ !Left popliteal !Patent !Normal phasicity; spontaneous; normal ! ! ! !augmentation; compressible ! + -------+-------+------- ------ --+ !Left gastrocnemius !Patent !Compressible ! + -------+-------+------- ------ --+ !Left posterior tibial !Patent !Compressible ! + -------+-------+------- ------ --+ !Left peroneal !Patent !Compressible ! + -------+-------+------- ------ --+ !Left soleal !Patent !Compressible ! + -------+-------+------- ------ --+ !Left greater saphenous !Patent !Compressible ! + -------+-------+------- ------ --+ Electronically signed by: Jose Carpenter [id number] Final Dictated: 08/07/2018 10:13 am Dictating Physician: JOSE CARPENTER Signed Date and Time: 08/07/2018 10:13 am Signed by: JOSE CARPENTER Normal [facility] Basic Metabolic Panelon 07-18 Calcium [Mass/Vol] 8.4 mg/dL Normal 8.4-10.4 [facility] Comment on above: Performed By: #### P T CMP3JABARI HEMDF, MDIFF #### [address] [address] [address] [place], [place] Glucose [Mass/Vol] 93 mg/dL Normal 70-100 [facility] Comment on above: Performed By: #### P T CMP3JABARI HEMDF, MDIFF #### [address] [address] [address] [place], [place] Anion gap [Moles/Vol] 2 Normal [facility] Comment on above: Performed By: #### P T CMP3JABARI HEMDF, MDIFF #### [address] [address] [address] [place], [place] CO2 [Moles/Vol] 26 mmol/L Normal 22-30 [facility] Comment on above: Performed By: #### P T CMP3JABARI HEMDF, MDIFF #### [address] [address] [address] [place], [place] Creatinine [Mass/Vol] 0.57 mg/dL Normal 0.52-1.25 [facility] Comment on above: Performed By: #### P T CMP3JABARI HEMDF, MDIFF #### [address] [address] [address] [place], [place] GFR/1.73 sq M predicted among blacks MDRD (S/P/Bld) [Vol rate/Area] mL/min/{1.73_m2} Normal >60 [facility] Comment on above: Performed By: #### P T, CMP3, TROPN, HEMYESY, MDIFF #### [facility] [address] [place], [place] GFR/1.73 sq M predicted among non-blacks MDRD (S/P/Bld) [Vol rate/Area] mL/min/{1.73_m2} Normal >60 [facility] Comment on above: Result Comment: Sour ce- MDRD equation with creatinine calibration to IDMS(NKDEP) eGFR not recommended for drug dose adjustment Performed By: #### P T, CMP3, TROPN, HEMYESY, MDIFF #### [address] [address] [address] [place], [place] Urea nitrogen [Mass/Vol] 14 mg/dL Normal 7-20 [facility] Comment on above: Performed By: #### P T, CMP3, TROPN HEMYESY, MDIFF #### [address] [address] [address] [place], [place] Chloride [Moles/Vol] 108 mmol/L High 98-107 [facility] Comment on above: Performed By: #### P T, CMP3, TROPN, HEMYESY, MDIFF #### [address] [address] [address] [place], [place] Potassium [Moles/Vol] 4.3 mmol/L Normal 3.5-5.1 [facility] Comment on above: Performed By: #### P T, CMP3, TROPN, HEMYESY, MDIFF #### [address] [address] [address] [place], [place] Sodium [Moles/Vol] 137 mmol/L Normal 135-145 [facility] Comment on above: Performed By: #### P T, CMP3, TROPN, HEMYESY, MDIFF #### [address] [address] [address] [place], [place] CR Chest Portableon 08-07-19 19 CR Chest Portable Patient Name: XAVIER RAHMAN Diagnostic Radiology Exam Date/Time 08/06/2018 19:15:00 EDT Exam CR Chest Portable Ordering Physician [id number] BURNS Accession Number [id number] CPT4 Codes 43127 () Reason For Exam dyspnea Report PORTABLE CHEST: INDICATION: Dyspnea COMPARISON: Compared to a prior study performed earlier today at 0645 hours Obtained at 1913 hours. A single portable AP radiograph of the chest was obtained. The heart is normal in size. The mediastinal silhouette is normal. Postoperative changes are noted on the left with volume loss. Two left-sided chest tubes are present. No pneumothorax is seen. There is no pleural thickening. The osseous structures are unremarkable. IMPRESSION: Postoperative changes. No acute process. Report Dictated on Final Dictated: 08/06/2018 7:40 pm Dictating Physician: DO TREVINO ALFRED Signed Date and Time: 08/06/2018 7:45 pm Signed by: DO TREVINO ALFRED Transcribed Date and Time: 08/06/2018 7:40 Normal [facility] CR Chest Portable Patient Name: XAVIER RAHMAN Diagnostic Radiology Exam Date/Time 08/06/2018 06:53:49 EDT Exam CR Chest Portable Ordering Physician NATTY DILLARD Accession Number [id number] CPT4 Codes 86655 () Reason For Exam left hemothorax Report Chest one view HISTORY: Short of breath COMPARISON: 08/05/2018 Again seen are two left chest tubes. Unchanged small to moderate left pleural effusion and adjacent infiltrate or atelectasis. No pneumothorax. The right lung and pleural space are clear. The heart size normal. IMPRESSION: No significant change from the prior study. Report Dictated on Final Dictated: 08/06/2018 9:37 am Dictating Physician: MD SAGASTUME MALAY Signed Date and Time: 08/06/2018 9:38 am Signed by: MD SAGASTUME MALAY Transcribed Date and Time: 08/06/2018 9:37 Normal [facility] Hemogramon 08-06-2018 Erythrocyte distribution width (RBC) [Ratio] 15.6 % High 11.5-14.5 [facility] Comment on above: Performed By: #### P T, CMP3, TROPN, HEMDF, IFF #### [address] [address] [address] [place], [place] Hematocrit (Bld) [Volume fraction] 24.9 % Low 35.0-47.0 [facility] Comment on above: Performed By: #### P T, CMP3, TROPN, HEMYESY, IFF #### [address] [address] [address] [place], [place] Hemoglobin (Bld) [Mass/Vol] 8.4 g/dL Low 11.7-16.0 [facility] Comment on above: Performed By: #### P T, CMP3, TROPN, HEMYESY, MDIFF #### [address] [address] [place], [place] MCH (RBC) [Entitic mass] 28.6 pg Normal 26.0-34.0 [facility] Comment on above: Performed By: #### P T, CMP3, TROPN HEMMD YESYIFF #### [address] [address] [place], [place] MCHC (RBC) [Mass/Vol] 33.6 % Normal 32.0-36.0 [facility] Comment on above: Performed By: #### P T, CMP3, TROPN HEMYESY, IFF #### [address] [address] [address] [place], [place] MCV (RBC) [Entitic vol] 85.2 fL Normal 79.0-98.0 [facility] Comment on above: Performed By: #### P T, CMP3, TROPN HEMYESY, MDIFF #### [address] [address] [address] [place], [place] Platelet mean volume (Bld) [Entitic vol] 7.1 fL Low 7.4-10.4 [facility] Comment on above: Performed By: #### P T, CMP3, TROPN, HEMYESY, MDIFF #### [address] Platelets (Bld) [#/Vol] 403 10*3/uL Normal 140-440 [facility] Comment on above: Performed By: #### P T, CMP3, TROPItalia, ABI, MDIFF #### [facility] [address] [place], [place] RBC (Bld) [#/Vol] 2.93 10*6/uL Low 3.80-5.20 [facility] Comment on above: Performed By: #### P T, CMP3, TROPN, ABI, MDIFF #### [facility] [address] [place], [place] WBC (Bld) [#/Vol] 7.4 10*3/uL Normal 3.6-10.7 [facility] Comment on above: Performed By: #### P T, CMP3, TROPN, ABI, MDIFF #### [facility] [address] [place], [place] CR Chest Portableon 08-06-19 19 CR Chest Portable Patient Name: XAVIER RAHMAN Diagnostic Radiology Exam Date/Time 08/05/2018 07:27:49 EDT Exam CR Chest Portable Ordering Physician [id number] CONNORS Accession Number [id number] CPT4 Codes 19190 () Reason For Exam left hemothorax Report PORTABLE CHEST CLINICAL INDICATION: Left hemothorax TECHNIQUE: Portable AP COMPARISON: None FINDINGS: Stable cardiomegaly.. Interval decrease in prominence of the interstitial lung markings. No focal infiltrate is seen.. There is a persistent small left pleural effusion. Stable multiple left-sided rib fractures. No pneumothorax. Two left-sided chest tubes are in overall unchanged position. IMPRESSION: 1. Stable small left pleural effusion, which per clinical history represents hemothorax. 2. Stable positioning of left-sided chest tubes. 3. Unchanged left-sided rib fractures. Report Dictated on Final Dictated: 08/05/2018 8:52 am Dictating Physician: MD FLORES GEORGE RICHARD Signed Date and Time: 08/05/2018 8:54 am Signed by: MD FLORES GEORGE RICHARD Transcribed Date and Time: 08/05/2018 8:52 Normal [facility] Hemogramon 08-05-2018 Erythrocyte distribution width (RBC) [Ratio] 16.0 % High 11.5-14.5 [facility] Comment on above: Performed By: #### P T, CMP3, TROPN, HEMDF, MDIFF #### [address] [address] [address] [place], [place] Hematocrit (Bld) [Volume fraction] 28.7 % Low 35.0-47.0 [facility] Comment on above: Performed By: #### P T, CMP3, TROPN, HEMDF, MDIFF #### [address] [address] [address] [place], [place] Hemoglobin (Bld) [Mass/Vol] 9.5 g/dL Low 11.7-16.0 [facility] Comment on above: Performed By: #### P T, CMP3, TROPN, HEMDF, MDIFF #### [address] MCH (RBC) [Entitic mass] 28.4 pg Normal 26.0-34.0 [facility] Comment on above: Performed By: #### P T, CMP3, TROPN, HEMDF, MDIFF #### [address] [place], [place] MCHC (RBC) [Mass/Vol] 33.0 % Normal 32.0-36.0 [facility] Comment on above: Performed By: #### P T, CMP3, TROPN, HEMDF, MDIFF #### [address] [address] [address] [place], [place] MCV (RBC) [Entitic vol] 86.0 fL Normal 79.0-98.0 [facility] Comment on above: Performed By: #### P T, CMP3, TROPN, HEMDF, MDIFF #### [address] [place], [place] Platelet mean volume (Bld) [Entitic vol] 7.4 fL Normal 7.4-10.4 [facility] Comment on above: Performed By: #### P T, CMP3, TROPN, HEMDF, MDIFF #### [address] [address] [place], [place] Platelets (Bld) [#/Vol] 366 10*3/uL Normal 140-440 [facility] Comment on above: Performed By: #### P T, CMP3, TROPN HEMYESY, IFF #### [address] [place] [place], [place] RBC (Bld) [#/Vol] 3.34 10*6/uL Low 3.80-5.20 [facility] Comment on above: Performed By: #### P T, CMP3, TROPN, HEMYESY, MDIFF #### [address] [place], [place] WBC (Bld) [#/Vol] 8.2 10*3/uL Normal 3.6-10.7 [facility] Comment on above: Performed By: #### P T, CMP3, TROPN, HEMYESY, IFF #### [address] [place], [place] Basic Metabolic Panelon 07-17 Calcium [Mass/Vol] 7.7 mg/dL Low 8.4-10.4 [facility] Comment on above: Performed By: #### P T, CMP3, TROPItalia HEMMD YESYIFF #### [address] [place], [place] Anion gap [Moles/Vol] 3 Normal [facility] Comment on above: Performed By: #### P T, CMP3, TROPN, HEMMD YESYIFF #### [address] [place] [place], [place] CO2 [Moles/Vol] 23 mmol/L Normal 22-30 [facility] Comment on above: Performed By: #### P T, CMP3, TROPN, HEMMD YESYIFF #### [address] [place] [place], [place] Creatinine [Mass/Vol] 0.51 mg/dL Low 0.52-1.25 [facility] Comment on above: Performed By: #### P T, CMP3, TROPN, HEMDFMDIFF #### [address] [place], [place] GFR/1.73 sq M predicted among blacks MDRD (S/P/Bld) [Vol rate/Area] mL/min/{1.73_m2} Normal >60 [facility] Comment on above: Performed By: #### P T, CMP3, TROPN, HEMYESY, MDIFF #### [facility] [address] [place] [address] GFR/1.73 sq M predicted among non-blacks MDRD (S/P/Bld) [Vol rate/Area] mL/min/{1.73_m2} Normal >60 [facility] Comment on above: Result Comment: Sour ce- MDRD equation with creatinine calibration to IDMS(NKDEP) eGFR not recommended for drug dose adjustment Performed By: #### P T, CMP3, TROPN, HEMYESY, MDIFF #### [address] [place] [address] Glucose [Mass/Vol] 170 mg/dL High 70-100 [facility] Comment on above: Performed By: #### P T, CMP3, TROPN, HEMYESY, MDIFF #### [address] [place] [place], [place] Urea nitrogen [Mass/Vol] 19 mg/dL Normal 7-20 [facility] Comment on above: Performed By: #### P T, CMP3, TROPN, HEMYESY, MDIFF #### [address] [place] [address] Chloride [Moles/Vol] 109 mmol/L High 98-107 [facility] Comment on above: Performed By: #### P T, CMP3, TROPN, HEMDF, MDIFF #### [facility] [address] [place] [address] Potassium [Moles/Vol] 5.0 mmol/L Normal 3.5-5.1 [facility] Comment on above: Performed By: #### P T, CMP3, TROPN, HEMDF, MDIFF #### [address] [place] [address] Sodium [Moles/Vol] 136 mmol/L Normal 135-145 [facility] Comment on above: Performed By: #### P T, CMP3, JABARI, HEMYESY, MDIFF #### [facility] [address] [place] [address] CR Chest Portableon 08-05-19 CR Chest Portable Patient Name: XAVIER RAHMAN Diagnostic Radiology Exam Date/Time 08/04/2018 15:04:12 EDT Exam CR Chest Portable Ordering Physician NATTY DILLARD Accession Number [id number] CPT4 Codes 85741 () Reason For Exam chest tubes from suction to water seal Report Portable chest 08/04/2018: Clinical Information: Chest tube to waterseal. Findings: A single AP portable view of the chest was obtained at 1451 hours. Comparison was made to the prior study earlier study same date 0558 hours. The 2 left-sided chest tubes are unchanged. No pneumothorax is identified. There is no other interval change when compared to the earlier study same date. Report Dictated on Final Dictated: 08/04/2018 3:35 pm Dictating Physician: MD RHOADES RISA Signed Date and Time: 08/04/2018 3:36 pm Signed by: MD RHOADES RISA Transcribed Date and Time: 08/04/2018 3:35 Normal [facility] CR Chest Portable Patient Name: XAVIER RAHMAN Diagnostic Radiology Exam Date/Time 08/04/2018 06:08:58 EDT Exam CR Chest Portable Ordering Physician NATTY DILLARD Accession Number [id number] CPT4 Codes 95701 () Reason For Exam left hemothorax Report Chest one view HISTORY: Left chest pain COMPARISON: 08/03/2018 Again seen are two left chest tubes. No pneumothorax. Again seen is moderate left pleural effusion and left lower lung infiltrate or atelectasis. Single strand of atelectasis in the right lower lung is again seen. No right pleural effusion. Heart is likely enlarged. IMPRESSION: No significant change from the prior examination. Report Dictated on Final Dictated: 08/04/2018 8:00 am Dictating Physician: MD SAGASTUME MALAY Signed Date and Time: 08/04/2018 8:01 am Signed by: MD SAGASTUME MALAY Transcribed Date and Time: 08/04/2018 8:00 Normal [facility] Hemoglobin AND Hematocriton 08-04-2018 Hematocrit (Bld) [Volume fraction] 25.7 % Low 35.0-47.0 [facility] Comment on above: Performed By: #### P T, CMP3, TROPN HEMMD YESYIFF #### [address] [address] [place], [place] Hemoglobin (Bld) [Mass/Vol] 8.5 g/dL Low 11.7-16.0 [facility] Comment on above: Performed By: #### P T, CMP3, TROPN HEMMD EYSYIFF #### [address] Hemogramon 08-04-2018 Erythrocyte distribution width (RBC) [Ratio] 15.6 % High 11.5-14.5 [facility] Comment on above: Performed By: #### P T, CMP3, TROPNABI MDIFF #### [address] [address] [place], [place] Hematocrit (Bld) [Volume fraction] 24.2 % Low 35.0-47.0 [facility] Comment on above: Performed By: #### P T, CMP3, TROPNABI MDIFF #### [address] [address] [place], [place] Hemoglobin (Bld) [Mass/Vol] 8.1 g/dL Low 11.7-16.0 [facility] Comment on above: Performed By: #### P T, CMP3, TROPNABI MDIFF #### [address] [address] [place], [place] MCH (RBC) [Entitic mass] 28.7 pg Normal 26.0-34.0 [facility] Comment on above: Performed By: #### P T, CMP3, TROPN, HEMMD YESYIFF #### [address] [place], [place] MCHC (RBC) [Mass/Vol] 33.5 % Normal 32.0-36.0 [facility] Comment on above: Performed By: #### P T, CMP3, TROPN, HEMDF, MDIFF #### [address] [place], [place] MCV (RBC) [Entitic vol] 85.7 fL Normal 79.0-98.0 [facility] Comment on above: Performed By: #### P T, CMP3, TROPN, HEMDF, MDIFF #### [address] [place], [place] Platelet mean volume (Bld) [Entitic vol] 7.4 fL Normal 7.4-10.4 [facility] Comment on above: Performed By: #### P T, CMP3, TROPN, HEMDF, MDIFF #### [address] [place], [place] Platelets (Bld) [#/Vol] 317 10*3/uL Normal 140-440 [facility] Comment on above: Performed By: #### P T, CMP3, TROPN, HEMDF, MDIFF #### [address] [place], [place] RBC (Bld) [#/Vol] 2.83 10*6/uL Low 3.80-5.20 [facility] Comment on above: Performed By: #### P T, CMP3, TROPN, HEMDF, MDIFF #### [address] [place], [place] WBC (Bld) [#/Vol] 9.2 10*3/uL Normal 3.6-10.7 [facility] Comment on above: Performed By: #### P T, CMP3, TROPN, HEMDF, MDIFF #### [address] Basic Metabolic Panelon 07-17 Anion gap [Moles/Vol] 3 Normal [facility] Comment on above: Performed By: #### H EMOG #### [facility] [address] [place], [place] Calcium [Mass/Vol] 8.3 mg/dL Low 8.4-10.4 [facility] Comment on above: Performed By: #### H EMOG #### [address] [place], [place] CO2 [Moles/Vol] 26 mmol/L Normal 22-30 [facility] Comment on above: Performed By: #### H EMOG #### [address] [place], [place] Glucose [Mass/Vol] 137 mg/dL High 70-100 [facility] Comment on above: Performed By: #### H EMOG #### [address] [place], [place] Urea nitrogen [Mass/Vol] 20 mg/dL Normal 7-20 [facility] Comment on above: Performed By: #### H EMOG #### [address] [place], [place] Creatinine [Mass/Vol] 0.64 mg/dL Normal 0.52-1.25 [facility] Comment on above: Performed By: #### H EMOG #### [address] [place], [place] GFR/1.73 sq M predicted among blacks MDRD (S/P/Bld) [Vol rate/Area] mL/min/{1.73_m2} Normal >60 [facility] Comment on above: Performed By: #### H EMOG #### [address] [place], [place] GFR/1.73 sq M predicted among non-blacks MDRD (S/P/Bld) [Vol rate/Area] mL/min/{1.73_m2} Normal >60 [facility] Comment on above: Result Comment: Sour ce- MDRD equation with creatinine calibration to IDMS(NKDEP) eGFR not recommended for drug dose adjustment Performed By: #### H EMOG #### [address] [place] [address] Potassium [Moles/Vol] 4.1 mmol/L Normal 3.5-5.1 [facility] Comment on above: Performed By: #### H EMOG #### [facility] [address] [place] [address] Sodium [Moles/Vol] 137 mmol/L Normal 135-145 [facility] Comment on above: Performed By: #### H EMOG #### [facility] [address] [place] [address] Chloride [Moles/Vol] 108 mmol/L High 98-107 [facility] Comment on above: Performed By: #### H EMOG #### [facility] [address] [place] [address] CR Chest Portableon 08-04-19 19 CR Chest Portable Patient Name: XAVIER RAHMAN Diagnostic Radiology Exam Date/Time 08/03/2018 05:57:32 EDT Exam CR Chest Portable Ordering Physician [id number] NATTY DUCKWORTH Accession Number [id number] CPT4 Codes 15899 () Reason For Exam left hemothorax Report PORTABLE CHEST: INDICATION: Hemothorax COMPARISON: 08/02/2018 Obtained at 0549 hours. A single portable AP radiograph of the chest was obtained. The heart is normal in size. The mediastinal silhouette is normal. There is continued pulmonary congestion. Left basal atelectasis and effusion is present. There is no pleural thickening. Arthritic changes of the spine and shoulders are present. Multiple left rib fractures are present. Two left-sided chest tubes are present. There is a small left apical pneumothorax IMPRESSION: Pulmonary congestion with left basal atelectasis and effusion. Two left-sided chest tubes are present. There is a small left apical pneumothorax. Report Dictated on Final Dictated: 08/03/2018 9:26 am Dictating Physician: DO TREVINO ALFRED Signed Date and Time: 08/03/2018 9:29 am Signed by: DO TREVINO ALFRED Transcribed Date and Time: 08/03/2018 9:26 Normal [facility] Hemogramon 08-03-2018 Erythrocyte distribution width (RBC) [Ratio] 15.2 % High 11.5-14.5 [facility] Comment on above: Performed By: #### H EMOG #### [address] [place], [place] Hematocrit (Bld) [Volume fraction] 25.7 % Low 35.0-47.0 [facility] Comment on above: Performed By: #### H EMOG #### [address] [place], [place] Hemoglobin (Bld) [Mass/Vol] 8.4 g/dL Low 11.7-16.0 [facility] Comment on above: Result Comment: REPE ATED Performed By: #### H EMOG #### [address] MCH (RBC) [Entitic mass] 27.6 pg Normal 26.0-34.0 [facility] Comment on above: Performed By: #### H EMOG #### [address] [place], [place] MCHC (RBC) [Mass/Vol] 32.7 % Normal 32.0-36.0 [facility] Comment on above: Performed By: #### H EMOG #### [address] [place], [place] MCV (RBC) [Entitic vol] 84.5 fL Normal 79.0-98.0 [facility] Comment on above: Performed By: #### H EMOG #### [address] [place], [place] Platelet mean volume (Bld) [Entitic vol] 8.3 fL Normal 7.4-10.4 [facility] Comment on above: Performed By: #### H EMOG #### [address] Platelets (Bld) [#/Vol] 310 10*3/uL Normal 140-440 [facility] Comment on above: Performed By: #### H EMOG #### [address] [place], [place] RBC (Bld) [#/Vol] 3.04 10*6/uL Low 3.80-5.20 [facility] Comment on above: Performed By: #### H EMOG #### [address] [address] [place], [place] WBC (Bld) [#/Vol] 13.7 10*3/uL High 3.6-10.7 [facility] Comment on above: Performed By: #### H EMOG #### [address] [address] [place], [place] Basic Metabolic Panelon 07-17 Calcium [Mass/Vol] 8.6 mg/dL Normal 8.4-10.4 [facility] Comment on above: Performed By: #### H EMOG, BMP3M, TSH5, B12, FOLT3, FEIBC, FERR3 ####[id number] [place], [place] #### VD25H ####[facility] [place] [address] Anion gap [Moles/Vol] 2 Normal [facility] Comment on above: Performed By: #### H EMOG, BMP3M, TSH5, B12, FOLT3, FEIBC, FERR3 ####[facility] [employer] [id number] [place], [place] #### VD25H ####[facility] [place] [address] CO2 [Moles/Vol] 30 mmol/L Normal 22-30 [facility] Comment on above: Performed By: #### H EMOG, BMP3M, TSH5, B12, FOLT3, FEIBC, FERR3 ####[address] #### VD25H ####[facility] [employer] [address] [address] Creatinine [Mass/Vol] 0.57 mg/dL Normal 0.52-1.25 [facility] Comment on above: Performed By: #### H EMOG, BMP3M, TSH5, B12, FOLT3, FEIBC, FERR3 ####[facility] [id number] [place] [address]#### VD25H ####[facility] [place] [facility] [place] [address] GFR/1.73 sq M predicted among blacks MDRD (S/P/Bld) [Vol rate/Area] mL/min/{1.73_m2} Normal >60 [facility] Comment on above: Performed By: #### H EMOG, BMP3M, TSH5, B12, FOLT3, FEIBC, FERR3 ####[facility] [employer] [id number] [place], [place] #### VD25H ####[facility] [employer] [address] [place] [facility] [place] [address] GFR/1.73 sq M predicted among non-blacks MDRD (S/P/Bld) [Vol rate/Area] mL/min/{1.73_m2} Normal >60 [facility] Comment on above: Result Comment: Sour ce- MDRD equation with creatinine calibration to IDMS(NKDEP) eGFR not recommended for drug dose adjustment Performed By: #### H EMOG, BMP3M, TSH5, B12, FOLT3, FEIBC, FERR3 ####[facility] [employer] [address] #### VD25H ####[facility] [place] [facility] [place] [address] Glucose [Mass/Vol] 106 mg/dL High 70-100 [facility] Comment on above: Performed By: #### H EMOG, BMP3M, TSH5, B12, FOLT3, FEIBC, FERR3 ####[facility] [employer] [id number] [place] [address]#### VD25H ####[facility] [employer] [address] [place] [address] Urea nitrogen [Mass/Vol] 18 mg/dL Normal 7-20 [facility] Comment on above: Performed By: #### H EMOG, BMP3M, TSH5, B12, FOLT3, FEIBC, FERR3 ####[facility] [employer] [id number] [place], [place] #### VD25H ####[facility] [place] [facility] [place] [address] Chloride [Moles/Vol] 106 mmol/L Normal 98-107 [facility] Comment on above: Performed By: #### H EMOG, BMP3M, TSH5, B12, FOLT3, FEIBC, FERR3 ####[address] [place] [address]#### VD25H ####[facility] [place] [address] Potassium [Moles/Vol] 4.3 mmol/L Normal 3.5-5.1 [facility] Comment on above: Performed By: #### H EMOG, BMP3M, TSH5, B12, FOLT3, FEIBC, FERR3 ####[address] [place] [address]#### VD25H ####[facility] [facility] [place] [address] Sodium [Moles/Vol] 137 mmol/L Normal 135-145 [facility] Comment on above: Performed By: #### H EMOG, BMP3M, TSH5, B12, FOLT3, FEIBC, FERR3 ####[address] [place] [address]#### VD25H ####[address] [place] [address] CR Chest Portableon 08-03-19 19 CR Chest Portable Patient Name: XAVIER RAHMAN Diagnostic Radiology Exam Date/Time 08/02/2018 16:40:59 EDT Exam CR Chest Portable Ordering Physician MD SUSANNE, JENNY Accession Number [id number] CPT4 Codes 01023 () Reason For Exam chest tubes Report Reason for examination: Chest tubes. Portable chest is obtained at 1619 hours. Comparison is to an earlier study from 9:05 AM. There are 2 chest tubes noted in the left hemithorax; one with the tip in the medial left base and one with the tip in the left apex. The trachea is midline. There is aortic atherosclerosis. The heart is upper limits of normal in size. The pulmonary vasculature is stable. There is diffuse interstitial prominence. There is opacity at the left base which is mildly improved compared to earlier imaging. The findings are consistent with effusion and atelectasis/infiltrate. No pneumothorax is identified at. Multiple left-sided rib fractures are redemonstrated. There is a small amount of subcutaneous emphysema. Report Dictated on Final Dictated: 08/02/2018 4:50 pm Dictating Physician: MD FERRIS LAUREN B Signed Date and Time: 08/02/2018 4:53 pm Signed by: MD FERRIS LAUREN B Transcribed Date and Time: 08/02/2018 4:50 Normal [facility] CR Chest Portable Patient Name: XAVIER RAHMAN Diagnostic Radiology Exam Date/Time 08/02/2018 09:25:46 EDT Exam CR Chest Portable Ordering Physician [id number] RED Accession Number [id number] CPT4 Codes 79969 () Reason For Exam chest pain Report CHEST: CLINICAL INDICATION: Chest pain TECHNIQUE: AP portable chest COMPARISON: 08/02/2018 FINDINGS: Two left-sided chest tubes are present. No definite pneumothorax. The cardiomediastinal silhouette appears unchanged from the prior exam. Redemonstration of a large left pleural effusion, similar in size to the prior study with a left basilar opacity, consistent with atelectasis with or without a superimposed consolidation. The right lung is clear. No sizable right pleural effusion.. Multiple left rib fractures. IMPRESSION: 1. Two left chest tubes. Large left pleural effusion. No definite pneumothorax. 2. Left basilar atelectasis. Superimposed consolidation cannot be excluded. 3. Multiple left-sided rib fractures. Report Dictated on Workstation: [id number] Final Dictated: 08/02/2018 9:36 am Dictating Physician: MD MERCHANT NICHOLAS Signed Date and Time: 08/02/2018 9:38 am Signed by: MD MERCHANT NICHOLAS Transcribed Date and Time: 08/02/2018 9:36 Normal [facility] CR Chest Portable Patient Name: XAVIER RAHMAN Diagnostic Radiology Exam Date/Time 08/02/2018 06:38:11 EDT Exam CR Chest Portable Ordering Physician Adarsh DUCKWORTH NATTY Accession Number [id number] CPT4 Codes 05707 () Reason For Exam left hemothorax Report Chest one view HISTORY: Left hemothorax COMPARISON: 08/01/2018 Again seen are two left chest tubes. No pneumothorax. Unchanged large left pleural effusion. There may be underlying left lung base consolidation. The right lung and pleural space are clear. The heart size is difficult to evaluate. IMPRESSION: Unchanged large left pleural effusion. There may be underlying left lung base consolidation. Report Dictated on Final Dictated: 08/02/2018 8:57 am Dictating Physician: MD SAGASTUME MALAY Signed Date and Time: 08/02/2018 8:59 am Signed by: MD SAGASTUME MALAY Transcribed Date and Time: 08/02/2018 8:57 Normal [facility] CTA Chest w/ + w/o Contrasto n 08-02-2018 CTA Chest w/ + w/o Contrast Patient Name: XAVIER RAHMAN CT Exam Date/Time 08/02/2018 10:45:16 EDT Exam CTA Chest w/ + w/o Contrast Ordering Physician Adarsh NielsonNATTY PARKINSON Accession Number [id number] CPT4 Codes 25370 (), Q9967 (CT ISOVUE 370MG/[id number] ndMLand1) Reason For Exam Rule out PE. Acute SOB, hypoxia. Known rib fractures and hemothorax Addendum ADDENDUM There are multiple left ribs fractures as also described on today's chest x-ray report. Report Dictated on Final Addendum Dictated: 08/02/2018 11:33 am Addendum Dictating Physician: MD COWART AHMAD Signed Date and Time: 08/02/2018 11:36 am Signed by: MD COWART AHMAD Transcribed Date and Time: 08/02/2018 11:[address] ANGIOGRAM History: Dyspnea, hypoxia, ribs fractures, concern for PE Comparison CT: None available Technique: Multislice volume acquisition axial CTA images were obtained from the chest apex to diaphragm following IV injection of 75 mL of Isovue. Multiplanar sagittal and coronal reconstructed images also obtained. I concurrently performed 3-D rendering and reviewed the exam on an independent workstation. Findings: There is no evidence of central pulmonary arteries embolus. There are atherosclerotic calcifications with no evidence of thoracic aortic aneurysm or dissection. The heart is normal in size. There is at least one mildly enlarged, 1.5 cm diameter anterior carinal lymph node. The inferior thyroid lobe is enlarged, heterogeneous and has hypodense nodularity. There is large, partially loculated left pleural effusion with several air foci/small pneumothorax. There are two left chest tubes, one terminates within the left chest apex and the other terminates at the left chest wall. There are large left lower lobe and smaller left upper lobe atelectasis/infiltrates . Other underlying lung lesion, or bronchial obstructive process could not be excluded. Right lung shows centrilobular emphysema with scattered small linear atelectasis. There is incomplete visualization of the upper abdominal structures. To the limited extent visualized, there is probably small sludge within moderately distended gallbladder and two, up to 2 cm left renal cysts. Both adrenals are unremarkable. IMPRESSION: No evidence of embolus in the central pulmonary arteries. No thoracic aortic dissection or aneurysm. Large, partially loculated left pleural effusion with small foci of air/pneumothorax and left chest tubes as described. Large left lung atelectasis/infiltrate. Other underlying lesion or bronchial obstructive process could not be excluded. Right leg centrilobular emphysema and small linear atelectasis. Mildly enlarged mediastinal lymph node. Enlarged left thyroid lobe with nodules. Consider ultrasound. Probable small gallbladder sludge. Left renal cysts. Report Dictated on Final Dictated: 08/02/2018 10:53 am Dictating Physician: MD COWART AHMAD Signed Date and Time: 08/02/2018 11:31 am Signed by: MD COWART AHMAD Transcribed Date and Time: 08/02/2018 10:53 Normal [facility] Ferritinon 08-02-2018 Ferritin [Mass/Vol] 68 ng/mL Normal 8-252 [facility] Comment on above: Performed By: #### H EMOG, BMP3M, TSH5, B12, FOLT3, FEIBC, FERR3 ####[facility] [employer] [id number] [place], [place] #### VD25H ####[facility] [employer] [id number] [place] [address] Folateon 08-02-2018 Folate > 20.0 Normal 2.8-20.0 [facility] Comment on above: Performed By: #### H EMOG, BMP3M, TSH5, B12, FOLT3, FEIBC, FERR3 ####[facility] [employer] [id number] [place], [place] #### VD25H ####[facility] [employer] [id number] [facility] [place] [address] Hemoglobin AND Hematocriton 08-02-2018 Hematocrit (Bld) [Volume fraction] 31.9 % Low 35.0-47.0 [facility] Comment on above: Performed By: #### H EMOG #### [facility] [employer] [facility] [address] [place], [place] Hemoglobin (Bld) [Mass/Vol] 10.6 g/dL Low 11.7-16.0 [facility] Comment on above: Performed By: #### H EMOG #### [facility] [employer] [employer] [facility] [address] [place], [place] Hemogramon 08-02-2018 Erythrocyte distribution width (RBC) [Ratio] 15.4 % High 11.5-14.5 [facility] Comment on above: Performed By: #### H EMOG, BMP3M, TSH5, B12, FOLT3, FEIBC, FERR3 ####[facility] [employer] [address] [place], [place] #### VD25H ####[facility] [employer] [address] [facility] [place] [address] Hematocrit (Bld) [Volume fraction] 19.8 % Low 35.0-47.0 [facility] Comment on above: Performed By: #### H EMOG, BMP3M, TSH5, B12, FOLT3, FEIBC, FERR3 ####[address] #### VD25H ####[facility] [place] [address] Hemoglobin (Bld) [Mass/Vol] 6.7 g/dL Critically low 11.7-16.0 [facility] Comment on above: Result Comment: repe ated Performed By: #### H EMOG, BMP3M, TSH5, B12, FOLT3, FEIBC, FERR3 ####[address] #### VD25H ####[place] [address] [place] [address] MCH (RBC) [Entitic mass] 29.0 pg Normal 26.0-34.0 [facility] Comment on above: Performed By: #### H EMOG, BMP3M, TSH5, B12, FOLT3, FEIBC, FERR3 ####[address] #### VD25H ####[address] [place] [address] MCHC (RBC) [Mass/Vol] 33.9 % Normal 32.0-36.0 [facility] Comment on above: Performed By: #### H EMOG, BMP3M, TSH5, B12, FOLT3, FEIBC, FERR3 ####[address] #### VD25H ####[address] [place] [address] MCV (RBC) [Entitic vol] 85.5 fL Normal 79.0-98.0 [facility] Comment on above: Performed By: #### H EMOG, BMP3M, TSH5, B12, FOLT3, FEIBC, FERR3 ####[address] #### VD25H ####[place] [address] [place] [address] Platelet mean volume (Bld) [Entitic vol] 7.7 fL Normal 7.4-10.4 [facility] Comment on above: Performed By: #### H EMOG, BMP3M, TSH5, B12, FOLT3, FEIBC, FERR3 ####[place] [id number] [place], [place] #### VD25H ####[facility] [place] [address] Platelets (Bld) [#/Vol] 312 10*3/uL Normal 140-440 [facility] Comment on above: Performed By: #### H EMOG, BMP3M, TSH5, B12, FOLT3, FEIBC, FERR3 ####[address] #### VD25H ####[place] [address] [place] [address] RBC (Bld) [#/Vol] 2.32 10*6/uL Low 3.80-5.20 [facility] Comment on above: Performed By: #### H EMOG, BMP3M, TSH5, B12, FOLT3, FEIBC, FERR3 ####[address] #### VD25H ####[address] [place] [address] WBC (Bld) [#/Vol] 9.4 10*3/uL Normal 3.6-10.7 [facility] Comment on above: Performed By: #### H EMOG, BMP3M, TSH5, B12, FOLT3, FEIBC, FERR3 ####[address] #### VD25H ####[facility] [place] [address] Iron AND TIBCon 08-02-2018 Saturation 7 % Low 15-50 [facility] Comment on above: Performed By: #### H EMOG, BMP3M, TSH5, B12, FOLT3, FEIBC, FERR3 ####[address] #### VD25H ####[facility] [address] [place] [facility] [place] [address] Total Iron Binding Cap. 260 ug/dL Low 261-497 [facility] Comment on above: Performed By: #### H EMOG, BMP3M, TSH5, B12, FOLT3, FEIBC, FERR3 ####[facility] [address] [place], [place] #### VD25H ####[facility] [address] [place] [address] Iron, Total 19 ug/dL Low 37-170 [facility] Comment on above: Performed By: #### H EMOG, BMP3M, TSH5, B12, FOLT3, FEIBC, FERR3 ####[facility] [employer] [address] [place], [place] #### VD25H ####[facility] [address] [place] [address] Leukodepleted Red Cellson Leukodepleted Red Cells Leukodepleted Re d Cells: [id number] transfused 08/02/18 03:34 JMV Unit Blood Type: O Unit Blood Rh: POS Blood Product Code: CP1 Unit Number: [id number] Unit Status: transfused Barcoded Unit Number: =[id number] Barcoded Product Code: = Barcoded ABO/Rh: =%5100 Unit Expiration: Unit Volume Transfused: 250 Unit Transfusion Start Date/Time: Leukodepleted Red Cells: [id number] released 08/05/18 05:43 ERR Unit Blood Type: O Unit Blood Rh: POS Blood Product Code: AS1 Unit Number: [id number] Unit Status: released Barcoded Unit Number: =[id number] Barcoded Product Code: = Barcoded ABO/Rh: =%5100 Unit Expiration: Leukodepleted Red Cells: [id number] released 08/05/18 05:43 ERR Unit Blood Type: O Unit Blood Rh: POS Blood Product Code: LP1 Unit Number: [id number] Unit Status: released Barcoded Unit Number: =[id number] Barcoded Product Code: = Barcoded ABO/Rh: =%5100 Unit Expiration: Leukodepleted Red Cells: [id number] transfused 08/02/18 05:50 JMV Unit Blood Type: O Unit Blood Rh: POS Blood Product Code: LP1 Unit Number: [id number] Unit Status: transfused Barcoded Unit Number: =[id number] Barcoded Product Code: = Barcoded ABO/Rh: =%5100 Unit Expiration: Unit Volume Transfused: 300 Unit Transfusion Start Date/Time: Normal [facility] Comment on above: Performed By: #### H EMOG #### [facility] [address] [place], [place] TS GELon 08-02-2018 TS GEL ABO Group: O Rh, Gel: POS Antibody Screen Gel: NEG Normal [facility] Comment on above: Performed By: #### H EMOG #### [place] [address] [place], [place] Thyroid Stim. Hormoneon 07-17 Thyroid Stim. Hormone 1.769 u[IU]/mL Normal 0.465-4.68 0 [facility] Comment on above: Performed By: #### H EMOG, BMP3M, TSH5, B12, FOLT3, FEIBC, FERR3 ####[facility] [place], [place] #### VD25H ####[facility] [place] [address] Troponin Ion 08-02-2018 Troponin I.cardiac [Mass/Vol] 0.021 ng/mL Normal 0.000-0.034 [facility] Comment on above: Result Comment: Mode rately hemolysed, interpret with caution. 0.046 - 0.400 = Indeterminate > 0.400 = Consider Myocardial Injury Performed By: #### H EMOG #### [facility] [address] [place], [place] Vit D 25-OH, Totalon 019 Vit D 25-OH, Total 20 ng/mL Low 30-100 [facility] Comment on above: Result Comment: Ther apy is based on measurement of Total 25-OHD with the following classification levels: Less than 20 ng/mL: Indicative of Vit D deficiency 20-30 ng/mL: Suggests Vit D insufficiency Optimal: Greater than or equal to 30 ng/mL Test performed by [employer]etitive Immunoassay, measuring Total Vitamin D, not individual fractions. Performed By: #### H EMOG, BMP3M, TSH5, B12, FOLT3, FEIBC, FERR3 ####[place] [address] [place], [place] #### VD25H ####[facility] [place] [address] Vitamin B12on 08-02-2018 Cobalamin (Vitamin B12) [Mass/Vol] pg/mL High 239-931 [facility] Comment on above: Performed By: #### H EMOG, BMP3M, TSH5, B12, FOLT3, FEIBC, FERR3 ####[facility] [employer] [id number] [place], [place] #### VD25H ####[facility] [place] [facility] [place] [address] Basic Metabolic Panelon 07-17 Calcium [Mass/Vol] 9.0 mg/dL Normal 8.4-10.4 [facility] Comment on above: Performed By: #### H EMOG, BMP3M #### [facility] [address] [place], [place] Anion gap [Moles/Vol] 6 Normal [facility] Comment on above: Performed By: #### H EMOG, BMP3M #### [facility] [address] [place], [place] CO2 [Moles/Vol] 31 mmol/L High 22-30 [facility] Comment on above: Performed By: #### H EMOG, BMP3M #### [facility] [address] [place], [place] Creatinine [Mass/Vol] 0.66 mg/dL Normal 0.52-1.25 [facility] Comment on above: Performed By: #### H EMOG, BMP3M #### [facility] [address] [place] [address] GFR/1.73 sq M predicted among blacks MDRD (S/P/Bld) [Vol rate/Area] mL/min/{1.73_m2} Normal >60 [facility] Comment on above: Performed By: #### Tata SILVESTRE BMP3M #### [facility] [address] [place] [address] GFR/1.73 sq M predicted among non-blacks MDRD (S/P/Bld) [Vol rate/Area] mL/min/{1.73_m2} Normal >60 [facility] Comment on above: Result Comment: Sour ce- MDRD equation with creatinine calibration to IDMS(NKDEP) eGFR not recommended for drug dose adjustment Performed By: #### Tata SILVESTRE BMP3M #### [facility] [address] [place], [place] Glucose [Mass/Vol] 117 mg/dL High 70-100 [facility] Comment on above: Performed By: #### Tata SILVESTRE BMP3M #### [place] [address] [place], [place] Urea nitrogen [Mass/Vol] 24 mg/dL High 7-20 [facility] Comment on above: Performed By: #### Tata SILVESTRE BMP3M #### [facility] [address] [place], [place] Chloride [Moles/Vol] 102 mmol/L Normal 98-107 [facility] Comment on above: Performed By: #### Tata SILVESTRE BMP3M #### [facility] [address] [place], [place] Potassium [Moles/Vol] 4.4 mmol/L Normal 3.5-5.1 [facility] Comment on above: Performed By: #### Tata SILVESTRE BMP3M #### [facility] [address] [place] [address] Sodium [Moles/Vol] 139 mmol/L Normal 135-145 [facility] Comment on above: Performed By: #### Tata SILVESTRE BMP3M #### [address] [address] CR Chest Portableon 08-02-19 CR Chest Portable Patient Name: XAVIER RAHMAN Diagnostic Radiology Exam Date/Time 08/01/2018 12:21:33 EDT Exam CR Chest Portable Ordering Physician MD SUSANNE, JENNY Accession Number [id number] CPT4 Codes 26830 () Reason For Exam Left second chest tube placement Report CLINICAL INFORMATION: Left pleural effusion. Chest tube placement. CHEST X-RAY, PORTABLE, 1212: An AP portable view is compared to the prior examination of earlier the same day at 0744 hours. There is a new left lower hemithorax chest tube. The pre-existing chest tube is unchanged. There is increased hazy density throughout the left hemithorax consistent with increase or layering of left pleural effusion. There is no pneumothorax. No other changes. Report Dictated on Final Dictated: 08/01/2018 2:34 pm Dictating Physician: MD SOLIS HARLAN Signed Date and Time: 08/01/2018 2:37 pm Signed by: MD SOLIS HARLAN Transcribed Date and Time: 08/01/2018 2:34 Normal [facility] CR Chest Portable Patient Name: XAVIER RAHMAN Diagnostic Radiology Exam Date/Time 08/01/2018 07:59:47 EDT Exam CR Chest Portable Ordering Physician [id number] CONNORS Accession Number [id number] CPT4 Codes 26891 () Reason For Exam left hemothorax Report CLINICAL INFORMATION: Left pneumothorax. Left-sided chest tube. CHEST X-RAY, PORTABLE, 0744 hours: An AP portable view is compared to the prior examination of the previous day. There is no change in the position of the left-sided chest tube. The left pleural effusion/pneumothorax is unchanged. There are multiple left fractures. There is no visible pneumothorax. No other acute process or interval change. Report Dictated on Final Dictated: 08/01/2018 10:56 am Dictating Physician: MD SOLIS HARLAN Signed Date and Time: 08/01/2018 10:57 am Signed by: MD SOLIS HARLAN Transcribed Date and Time: 08/01/2018 10:56 Normal [facility] Comp Metabolic Panelon 08-01 ALP [Catalytic activity/Vol] 59 U/L Normal 38-126 [facility] Comment on above: Performed By: #### P T, CMP3, TROPN, HEMMD YESYIFF #### [facility] [address] [place], [place] ALT [Catalytic activity/Vol] 31 U/L Normal 13-69 [facility] Comment on above: Performed By: #### P T, CMP3, TROPN, HEMDFMDIFF #### [place] [address] [place], [place] Calcium [Mass/Vol] 8.8 mg/dL Normal 8.4-10.4 [facility] Comment on above: Performed By: #### P T, CMP3, TROPN, HEMYESY, IFF #### [place] [address] [place], [place] Glucose [Mass/Vol] 143 mg/dL High 70-100 [facility] Comment on above: Performed By: #### P T, CMP3, TROPN, HEMDF, MDIFF #### [facility] [address] [place], [place] Urea nitrogen [Mass/Vol] 26 mg/dL High 7-20 [facility] Comment on above: Performed By: #### P T, CMP3, TROPN, HEMDF MDIFF #### [place] [address] [place], [place] Anion gap [Moles/Vol] 5 Normal [facility] Comment on above: Performed By: #### P T, CMP3, TROPN, HEMDF, MDIFF #### [place] [address] [place], [place] AST [Catalytic activity/Vol] 18 U/L Normal 15-46 [facility] Comment on above: Performed By: #### P T, CMP3, TROPN, HEMDF, MDIFF #### [place] [address] [place], [place] Bilirubin [Mass/Vol] 0.5 mg/dL Normal 0.2-1.3 [facility] Comment on above: Performed By: #### P T, CMP3, TROPN, HEMDF, MDIFF #### [place] [address] [place], [place] CO2 [Moles/Vol] 31 mmol/L High 22-30 [facility] Comment on above: Performed By: #### P T, CMP3, TROPN, HEMDF, MDIFF #### [place] [address] [place], [place] Creatinine [Mass/Vol] 0.74 mg/dL Normal 0.52-1.25 [facility] Comment on above: Performed By: #### P T, CMP3, TROPN, HEMDF, MDIFF #### [place] [address] [place], [place] GFR/1.73 sq M predicted among blacks MDRD (S/P/Bld) [Vol rate/Area] mL/min/{1.73_m2} Normal >60 [facility] Comment on above: Performed By: #### P T, CMP3, TROPN, HEMDF, MDIFF #### [place] [address] [place], [place] GFR/1.73 sq M predicted among non-blacks MDRD (S/P/Bld) [Vol rate/Area] mL/min/{1.73_m2} Normal >60 [facility] Comment on above: Result Comment: Sour ce- MDRD equation with creatinine calibration to IDMS(NKDEP) eGFR not recommended for drug dose adjustment Performed By: #### P T, CMP3, TROPN, HEMDF, MDIFF #### [place] [address] [place], [place] Protein [Mass/Vol] 6.1 g/dL Low 6.3-8.2 [facility] Comment on above: Performed By: #### P T, CMP3, TROPN, HEMDF, MDIFF #### [place] [address] [place], [place] Potassium [Moles/Vol] 4.0 mmol/L Normal 3.5-5.1 [facility] Comment on above: Performed By: #### P T, CMP3, TROPN, HEMYESY, IFF #### [place] [address] [place], [place] Sodium [Moles/Vol] 139 mmol/L Normal 135-145 [facility] Comment on above: Performed By: #### P T, CMP3, TROPN HEMYESY, IFF #### [place] [address] [place], [place] Albumin [Mass/Vol] 3.2 g/dL Low 3.5-5.0 [facility] Comment on above: Performed By: #### P T, CMP3, TROPN HEMMD YESYIFF #### [place] [address] [place], [place] Chloride [Moles/Vol] 103 mmol/L Normal 98-107 [facility] Comment on above: Performed By: #### P T, CMP3, TROPABI Echavarria MDIFF #### [place] [address] [place], [place] Hemogramon 08-01-2018 Erythrocyte distribution width (RBC) [Ratio] 15.0 % High 11.5-14.5 [facility] Comment on above: Performed By: #### H NA SILVESTRE3M #### [place] [address] [place], [place] Hematocrit (Bld) [Volume fraction] 22.3 % Low 35.0-47.0 [facility] Comment on above: Performed By: #### H NA SILVESTRE3M #### [place] [address] [place], [place] Hemoglobin (Bld) [Mass/Vol] 7.4 g/dL Low 11.7-16.0 [facility] Comment on above: Performed By: #### H NA SILVESTRE3M #### [place] [address] [place], [place] MCH (RBC) [Entitic mass] 28.3 pg Normal 26.0-34.0 [facility] Comment on above: Performed By: #### NA COPELAND3M #### [facility] [address] [place], [place] MCHC (RBC) [Mass/Vol] 33.0 % Normal 32.0-36.0 [facility] Comment on above: Performed By: #### Tata SILVESTRE BMP3M #### [place] [address] [place], [place] MCV (RBC) [Entitic vol] 85.7 fL Normal 79.0-98.0 [facility] Comment on above: Performed By: #### Tata SILVESTRE BMP3M #### [place] [address] [place], [place] Platelet mean volume (Bld) [Entitic vol] 7.8 fL Normal 7.4-10.4 [facility] Comment on above: Performed By: #### Tata SILVESTRE BMP3M #### [place] [address] [place], [place] Platelets (Bld) [#/Vol] 323 10*3/uL Normal 140-440 [facility] Comment on above: Performed By: #### Tata SILVESTRE BMP3M #### [place] [address] [place], [place] RBC (Bld) [#/Vol] 2.61 10*6/uL Low 3.80-5.20 [facility] Comment on above: Performed By: #### Tata SILVESTRE BMP3M #### [place] [address] [place], [place] WBC (Bld) [#/Vol] 9.2 10*3/uL Normal 3.6-10.7 [facility] Comment on above: Performed By: #### Tata SILVESTRE BMP3M #### [place] [address] [place], [place] Hemogram w/ Autodiffon 08-01 Erythrocyte distribution width (RBC) [Ratio] 15.2 % High 11.5-14.5 [facility] Comment on above: Performed By: #### P T, CMP3, TROPN, HEMDF, MDIFF #### [place] [address] [place], [place] Hematocrit (Bld) [Volume fraction] 24.0 % Low 35.0-47.0 [facility] Comment on above: Performed By: #### P T, CMP3, TROPN, HEMDF, MDIFF #### [address] Hemoglobin (Bld) [Mass/Vol] 7.9 g/dL Low 11.7-16.0 [facility] Comment on above: Performed By: #### P T, CMP3, TROPN, HEMDF, MDIFF #### [address] MCH (RBC) [Entitic mass] 28.4 pg Normal 26.0-34.0 [facility] Comment on above: Performed By: #### P T, CMP3, TROPN, HEMDF, MDIFF #### [address] MCHC (RBC) [Mass/Vol] 33.0 % Normal 32.0-36.0 [facility] Comment on above: Performed By: #### P T, CMP3, TROPN, HEMDF, MDIFF #### [address] MCV (RBC) [Entitic vol] 86.0 fL Normal 79.0-98.0 [facility] Comment on above: Performed By: #### P T, CMP3, TROPN, HEMDF, MDIFF #### [address] Platelet mean volume (Bld) [Entitic vol] 8.1 fL Normal 7.4-10.4 [facility] Comment on above: Performed By: #### P T, CMP3, TROPN, HEMDF, MDIFF #### [address] Platelets (Bld) [#/Vol] 390 10*3/uL Normal 140-440 [facility] Comment on above: Performed By: #### P T, CMP3, TROPABI Echavarria MDIFF #### [place] [address] [place], [place] RBC (Bld) [#/Vol] 2.79 10*6/uL Low 3.80-5.20 [facility] Comment on above: Performed By: #### P T, CMP3, TROPN, HEMYESY, IFF #### [place] [address] [place], [place] WBC (Bld) [#/Vol] 12.5 10*3/uL High 3.6-10.7 [facility] Comment on above: Performed By: #### P T, CMP3, TROPN HEMMD YESYIFF #### [place] [address] [place], [place] Manual Diffon 08-01-2018 Abs Baso Cnt 0.0 10*3/uL Normal 0.0-0.2 [facility] Comment on above: Performed By: #### P T, CMP3, TROPItalia HEMSULLY HAYWARD #### [address] Abs Eosin Cnt 0.0 10*3/uL Normal 0.0-0.5 [facility] Comment on above: Performed By: #### P T, CMP3, TROPN, HEMYESY, IFF #### [address] Abs Lymph Cnt 0.8 10*3/uL Low 1.1-4.5 [facility] Comment on above: Performed By: #### P T, CMP3, TROPN, HEMMD YESYIFF #### [address] Abs Monocyte Cnt 0.2 10*3/uL Normal 0.2-1.1 [facility] Comment on above: Performed By: #### P T, CMP3, TROPN, HEMYESY, IFF #### [place] [address] [place], [place] Abs Neutrophile Cnt 11.5 10*3/uL High 2.2-8.2 [facility] Comment on above: Performed By: #### P T, CMP3, TROPN, HEMDF, MDIFF #### [place] [address] [place], [place] Anisocytosis Ql (Bld) Slight Normal [facility] Comment on above: Performed By: #### P T, CMP3, TROPN, HEMDF, MDIFF #### [place] [address] [place], [place] Bands 0 % Normal 0-3 [facility] Comment on above: Performed By: #### P T, CMP3, TROPN, HEMDF, MDIFF #### [place] [address] [place], [place] Basophils 0 % Normal 0-2 [facility] Comment on above: Performed By: #### P T, CMP3, TROPN, HEMDF, MDIFF #### [place] [address] [place], [place] Cells counted 100 Normal [facility] Comment on above: Performed By: #### P T, CMP3, TROPN, HEMDF, MDIFF #### [place] [address] [place], [place] Eosinophils 0 % Low 1-6 [facility] Comment on above: Performed By: #### P T, CMP3, TROPN, HEMDF, MDIFF #### [place] [address] [place], [place] Hypochromia Slight Normal [facility] Comment on above: Performed By: #### P T, CMP3, TROPN, HEMDF, MDIFF #### [place] [address] [place], [place] Lymphocytes 6 % Low 20-40 [facility] Comment on above: Performed By: #### P T, CMP3, TROPN, HEMDF, MDIFF #### [place] [address] [place], [place] Microcytosis Slight Normal [facility] Comment on above: Performed By: #### P T, CMP3, TROPN, HEMYESY, MDIFF #### [facility] [address] [place], [place] Monocytes 2 % Normal 2-10 [facility] Comment on above: Performed By: #### P T, CMP3, TROPN, HEMSULLY HAYWARD #### [facility] [address] [place], [place] RBC morphology finding Nom (Bld) ABNORMAL Normal [facility] Comment on above: Performed By: #### P T, CMP3, TROPABI Echavarria MDIFF #### [facility] [address] [place], [place] Seg Neutrophils 92 % High 40-80 [facility] Comment on above: Performed By: #### P T, CMP3, TROPNABI MDIFF #### [facility] [address] [place], [place] Prothrombin Timeon 9 INR Coag (PPP) [Relative time] 1.0 Normal 0.9-1.1 [facility] Comment on above: Result Comment: Oliver mmended Anticoagulant Therapy: SEE BELOW ----- INR of 2.0 - 3.0 : - Prophylaxis of Venous Thrombosis (high-risk surgery) - Treatment of Venous Thrombosis - Treatment of Pulmonary Embolism (Includes tissue heart valves, Acute Myocardial Infarction to prevent systemic embolism, Valvular Heart Disease, and Atrial Fibrillation) ----- INR of 2.5 - 3.5 : - Mechanical Prosthetic Valves (high risk) - If oral anticoagulant therapy is used to prevent Myocardial Infarction Performed By: #### P T, CMP3, TROPItalia, HEMYESY, MDLUANN #### [facility] [address] [place], [place] PT Coag (PPP) [Time] 10.4 s Normal 9.0-12.0 [facility] Comment on above: Result Comment: . Performed By: #### P T, CMP3, TROPN HEMYESY MDIFF #### [facility] [address] [place], [place] Troponin Ion 08-01-2018 Troponin I.cardiac [Mass/Vol] 0.016 ng/mL Normal 0.000-0.034 [facility] Comment on above: Result Comment: 0.04 6 - 0.400 = Indeterminate > 0.400 = Consider Myocardial Injury Performed By: #### P T CMP3JABARI, MD ABIIFF #### [facility] [address] [place] [address] CR Chest Portableon 08-01-19 CR Chest Portable Patient Name: XAVIER RAHMAN Diagnostic Radiology Exam Date/Time 07/31/2018 13:36:32 EDT Exam CR Chest Portable Ordering Physician MD SUSANNE, JENNY Accession Number [id number] CPT4 Codes 67377 () Reason For Exam Left chest tube placement Report CHEST (Frontal View) History: Respiratory abnormality, tube placement Comparison: 07/31/2018 Findings: Frontal portable chest view shows partial reexpansion and improved aeration of the left upper lobe. There is still large atelectasis/infiltrate in the left mid and lower lung with moderate left pleural effusion that have decreased since last exam. Left chest tube is noted. There is redemonstration of left ribs fractures. The right lung shows interstitial prominence without acute infiltrate. The heart is borderline in size. Aorta is atherosclerotic. There is no mediastinal widening, pneumothorax, or other significant interval change. Report Dictated on Workstation: [id number] Final Dictated: 07/31/2018 2:29 pm Dictating Physician: MD COWART AHMAD Signed Date and Time: 07/31/2018 2:34 pm Signed by: MD COWART AHMAD Transcribed Date and Time: 07/31/2018 2:29 Normal [facility] CR Chest Portable Patient Name: XAVIER RAHMAN Diagnostic Radiology Exam Date/Time 07/31/2018 11:44:12 EDT Exam CR Chest Portable Ordering Physician [id number] OCNNORS Accession Number [id number] CPT4 Codes 65367 () Reason For Exam hemothorax Report Examination: Portable chest Indication: hemothorax Findings: Near complete opacification of the left hemithorax is present. This limits assessment of the cardiac silhouette. There is coarsening of interstitium of the right hemithorax. Small to moderate-sized endplate osteophytes of the spine are present at multiple levels with mild scoliosis. Impression: Near complete opacification of the left hemithorax. Follow-up is recommended. Displaced left-sided rib fractures. Report Dictated on Final Dictated: 07/31/2018 1:02 pm Dictating Physician: MD DORADO KRIKOR Signed Date and Time: 07/31/2018 1:03 pm Signed by: MD DORADO KRIKOR Transcribed Date and Time: 07/31/2018 1:02 Normal [facility] Hemogramon 07-31-2018 Erythrocyte distribution width (RBC) [Ratio] 14.9 % High 11.5-14.5 [facility] Comment on above: Performed By: #### H EMOG #### [place] [address], [place] Hematocrit (Bld) [Volume fraction] 23.1 % Low 35.0-47.0 [facility] Comment on above: Performed By: #### H EMOG #### [place] [address], [place] Hemoglobin (Bld) [Mass/Vol] 7.7 g/dL Low 11.7-16.0 [facility] Comment on above: Performed By: #### H EMOG #### [place] [address], [place] MCH (RBC) [Entitic mass] 28.1 pg Normal 26.0-34.0 [facility] Comment on above: Performed By: #### H EMOG #### [facility] [address], [place] MCHC (RBC) [Mass/Vol] 33.3 % Normal 32.0-36.0 [facility] Comment on above: Performed By: #### H EMOG #### [place] [address], [place] MCV (RBC) [Entitic vol] 84.6 fL Normal 79.0-98.0 [facility] Comment on above: Performed By: #### H EMOG #### [facility] [address], [place] Platelet mean volume (Bld) [Entitic vol] 7.9 fL Normal 7.4-10.4 [facility] Comment on above: Performed By: #### H EMOG #### [facility] [address], [place] Platelets (Bld) [#/Vol] 372 10*3/uL Normal 140-440 [facility] Comment on above: Performed By: #### H EMOG #### [facility] [address], [place] RBC (Bld) [#/Vol] 2.73 10*6/uL Low 3.80-5.20 [facility] Comment on above: Performed By: #### H EMOG #### [facility] [address], [place] WBC (Bld) [#/Vol] 12.1 10*3/uL High 3.6-10.7 [facility] Comment on above: Performed By: #### H EMOG #### [facility] [address], [place] Dermatopathologyon Dermatopathology 52 Pathologist: DEYA CORADO, MDDate of Procedure: 03/14/2017Date Received: 03/15/2017Date Reported 03/16/2017Submitting Physician: MICKY TERAN MDLocation: ADERM FINAL DIAGNOSISSKIN, LEFT UPPER PARIETAL, SHAVE BIOPSY:INFLAMED BENIGN KERATOSIS, PRESENT ON THE DEEP AND PERIPHERAL MARGIN. Electronically Signed Out by DEYA CORADO M.D. Electronically SignedOut By DEYA CORADO MD/[facility] Microscopic Description:Microscopic analysis shows a proliferation of bland keratinocytes withhyperkeratosis, acanthosis, and minimal cytologic atypia.Clinical History:R/O SCC vs. inflamed Dejon. Ker. Shave Biopsy. ([facility]) Specimens Submitted As:A: SKIN, LEFT UPPER PARIETAL Gross Description:Received in formalin is a rodriguez piece of skin measuring [id number]. The specimen isinked and embedded in toto.03/15/2017 Normal [facility] Comment on above: Performed By: #### D ####Dermatopathology Vital Signs Date Time Vital Sign Value Performing Clinician Mariusz young 10-17-2024 00:00-0400 Diastolic blood pressure 50 mm[Hg] Dr. Jose Hdz MD Work Phone: 7(322)553-091950 [place] [address] 10-17-2024 00:00-0400 Heart rate 69 /min Dr. Jose Hdz MD Work Phone: 0(962)727-359023 [place] [address] 10-17-2024 00:00-0400 Respiratory rate 18 /min Dr. Jose Hdz MD Work Phone: 6(542)967-920423 [place] [address] 10-17-2024 00:00-0400 SaO2% (BldA) [Mass fraction] 97 % Dr. Jose Hdz MD Work Phone: 3(681)306-811150 [place] [address] 10-17-2024 00:00-0400 Systolic blood pressure 130 mm[Hg] Dr. Jose Hdz MD Work Phone: 1(929)816-050023 [place] [address] 10-16-2024 22:55-0400 Body temperature 97.6 [degF] Dr. Jose Hdz MD Work Phone: 8(754)510-848423 [place] [address] 10-16-2024 22:03-0400 Body mass index (BMI) [Ratio] 23.7 kg/m2 Dr. Jose Hdz MD Work Phone: 4(387)588-687823 [place] [address] 10-16-2024 22:03-0400 Body weight 60.[address] Jose Hdz MD Work Phone: 8(128)881-799223 [place] [address] 10-16-2024 19:21-0400 Body height 160.[address] Jose Hdz MD Work Phone: 8(027)563-968223 [place] [address] 10-15-2024 20:10-0400 Body height 160.[address] Jose Hdz MD Work Phone: 9(449)998-668923 [place] [address] 10-15-2024 20:10-0400 Body mass index (BMI) [Ratio] 23 kg/m2 Dr. Jose Hdz MD Work Phone: [facility] 10-15-2024 20:10-0400 Body temperature 98.2 [degF] Dr. Jose Hdz MD Work Phone: [facility] 10-15-2024 20:10-0400 Body weight 58.[address] Jose Hdz MD Work Phone: 0(255)127-528550 [place] [address] 10-15-2024 20:10-0400 Diastolic blood pressure 62 mm[Hg] Dr. Jose Hdz MD Work Phone: 9(679)450-722850 [place] [address] 10-15-2024 20:10-0400 Heart rate 94 /min Dr. Jose Hdz MD Work Phone: 4(053)648-016723 [place] [address] 10-15-2024 20:10-0400 Respiratory rate 16 /min Dr. Jose Hdz MD Work Phone: 2(425)241-108094 [address] 10-15-2024 20:10-0400 SaO2% (BldA) [Mass fraction] 98 % Dr. Jose Hdz MD Work Phone: 1(093)879-520694 [address] 10-15-2024 20:10-0400 Systolic blood pressure 159 mm[Hg] Dr. Jose Hdz MD Work Phone: 0(022)104-318894 [address] 07-17-2024 09:27-0400 Body temperature 97.7 [degF] Dr. Jose Hdz MD Work Phone: [facility] 07-17-2024 09:27-0400 Diastolic blood pressure 93 mm[Hg] Dr. Jose Hdz MD Work Phone: 4(415)453-017950 [place] [address] 07-17-2024 09:27-0400 Heart rate 58 /min Dr. Jose Hdz MD Work Phone: [facility] 07-17-2024 09:27-0400 Respiratory rate 18 /min Dr. Jose Hdz MD Work Phone: 6(617)184-579750 [place] [address] 07-17-2024 09:27-0400 SaO2% (BldA) [Mass fraction] 96 % Dr. Jose Hdz MD Work Phone: 2(857)104-973750 [place] [address] 07-17-2024 09:27-0400 Systolic blood pressure 161 mm[Hg] Dr. Jose Hdz MD Work Phone: 3(287)601-126323 [place] [address] 07-15-2024 18:56-0400 Body height 160.[address] Jose Hdz MD Work Phone: 0(247)828-122223 [place] [address] 07-15-2024 18:56-0400 Body mass index (BMI) [Ratio] 23.2 kg/m2 Dr. Jose Hdz MD Work Phone: 1(287)310-143623 [place] [address] 07-15-2024 18:56-0400 Body weight 59.[address] Jose Hdz MD Work Phone: 6(728)512-816923 [place] [address] 07-15-2024 17:15-0400 Diastolic blood pressure 89 mm[Hg] Dr. Jose Hdz MD Work Phone: 1(764)888-161123 [place] [address] 07-15-2024 17:15-0400 Heart rate 67 /min Dr. Jose Hdz MD Work Phone: 3(158)492-583223 [place] [address] 07-15-2024 17:15-0400 Respiratory rate 22 /min Dr. Jose Hdz MD Work Phone: 5(688)647-290923 [place] [address] 07-15-2024 17:15-0400 SaO2% (BldA) [Mass fraction] 95 % Dr. Jose Hdz MD Work Phone: 8(944)973-742523 [place] [address] 07-15-2024 17:15-0400 Systolic blood pressure 179 mm[Hg] Dr. Jose Hdz MD Work Phone: 4(843)993-485023 [place] [address] 07-15-2024 17:00-0400 Body temperature 98.2 [degF] Dr. Jose Hdz MD Work Phone: 0(648)463-563423 [place] [address] 07-15-2024 14:54-0400 Body height 160.[address] Jose Hdz MD Work Phone: 1(903)864-861023 [place] [address] 07-15-2024 14:54-0400 Body mass index (BMI) [Ratio] 23.6 kg/m2 Dr. Jose Hdz MD Work Phone: 6(655)095-430823 [place] [address] 07-15-2024 14:54-0400 Body weight 60.[address] Jose Hdz MD Work Phone: 0(679)431-243523 [place] [address] 03-25-2024 13:09-0500 Body temperature 98.6 [degF] Dr. Jose Hdz MD Work Phone: 2(745)186-939023 [place] [address] 03-25-2024 13:09-0500 Diastolic blood pressure 59 mm[Hg] Dr. Jose Hdz MD Work Phone: 6(007)113-149423 [place] [address] 03-25-2024 13:09-0500 Heart rate 78 /min Dr. Jose Hdz MD Work Phone: 7(062)351-028623 [place] [address] 03-25-2024 13:09-0500 Respiratory rate 18 /min Dr. Jose Hdz MD Work Phone: 6(425)967-667623 [place] [address] 03-25-2024 13:09-0500 SaO2% (BldA) [Mass fraction] 99 % Dr. Jose Hdz MD Work Phone: 0(422)872-729523 [place] [address] 03-25-2024 13:09-0500 Systolic blood pressure 130 mm[Hg] Dr. Jose Hdz MD Work Phone: 9(543)710-447523 [place] [address] 03-25-2024 06:00-0500 Body mass index (BMI) [Ratio] 21.6 kg/m2 Dr. Jose Hdz MD Work Phone: 4(099)408-626823 [place] [address] 03-25-2024 06:00-0500 Body weight 55.[address] Jose Hdz MD Work Phone: 1(723)816-648323 [place] [address] 03-18-2024 10:10-0500 Body temperature 97.8 [degF] Dr. Jose Hdz MD Work Phone: 0(521)489-346023 [place] [address] 03-18-2024 10:10-0500 Diastolic blood pressure 58 mm[Hg] Dr. Jose Hdz MD Work Phone: 6(458)941-217123 [place] [address] 03-18-2024 10:10-0500 Heart rate 76 /min Dr. Jose Hdz MD Work Phone: [facility] 03-18-2024 10:10-0500 Respiratory rate 16 /min Dr. Jose Hdz MD Work Phone: [facility] 03-18-2024 10:10-0500 SaO2% (BldA) [Mass fraction] 98 % Dr. Jose Hdz MD Work Phone: [facility] 03-18-2024 10:10-0500 Systolic blood pressure 106 mm[Hg] Dr. Jose Hdz MD Work Phone: [facility] 03-18-2024 08:35-0500 Body mass index (BMI) [Ratio] 21.6 kg/m2 Dr. Jose Hdz MD Work Phone: [facility] 03-18-2024 08:35-0500 Body weight 55.[address] Jose Hdz MD Work Phone: [facility] 08-20-2023 10:02-0400 Body height 160.[address] Jose Hdz Work Phone: [facility] 08-20-2023 10:02-0400 Body mass index (BMI) [Ratio] 21.9 kg/m2 Dr. Jose Hdz Work Phone: [facility] 08-20-2023 10:02-0400 Body temperature 96.2 [degF] Dr. Jose Hdz Work Phone: [facility] 08-20-2023 10:02-0400 Body weight 56.[address] Jose Hdz Work Phone: [facility] 08-20-2023 10:02-0400 Diastolic blood pressure 89 mm[Hg] Dr. Jose Hdz Work Phone: [facility] 08-20-2023 10:02-0400 Heart rate 81 /min Dr. Jose Hdz Work Phone: [facility] 08-20-2023 10:02-0400 Respiratory rate 16 /min Dr. Jose Hdz Work Phone: [facility] 08-20-2023 10:02-0400 SaO2% (BldA) [Mass fraction] 97 % Dr. Jose Hdz Work Phone: [facility] 08-20-2023 10:02-0400 Systolic blood pressure 189 mm[Hg] Dr. Jose Hdz Work Phone: [facility] 07-24-2023 13:21-0400 Body temperature 97.6 [degF] Dr. Jose Hdz Work Phone: [facility] 07-24-2023 13:21-0400 Diastolic blood pressure 61 mm[Hg] Dr. Jose Hdz Work Phone: [facility] 07-24-2023 13:21-0400 Heart rate 78 /min Dr. Jose Hdz Work Phone: [facility] 07-24-2023 13:21-0400 Respiratory rate 16 /min Dr. Jose Hdz Work Phone: [facility] 07-24-2023 13:21-0400 SaO2% (BldA) [Mass fraction] 99 % Dr. Jose Hdz Work Phone: [facility] 07-24-2023 13:21-0400 Systolic blood pressure 146 mm[Hg] Dr. Jose Hdz Work Phone: [facility] 07-24-2023 12:22-0400 Body height 160.[address] Jose Hdz Work Phone: [facility] 07-24-2023 12:22-0400 Body mass index (BMI) [Ratio] 23 kg/m2 Dr. Jose Hdz Work Phone: [facility] 07-24-2023 12:22-0400 Body weight [address] Jose Hdz Work Phone: [facility] 06-28-2023 14:30-0400 Body temperature 97.2 [degF] Dr. Jose Hdz Work Phone: [facility] 06-28-2023 14:30-0400 Diastolic blood pressure 72 mm[Hg] Dr. Jose Hdz Work Phone: [facility] 06-28-2023 14:30-0400 Heart rate 78 /min Dr. Jose Hdz Work Phone: [facility] 06-28-2023 14:30-0400 Respiratory rate 14 /min Dr. Jose Hdz Work Phone: [facility] 06-28-2023 14:30-0400 SaO2% (BldA) [Mass fraction] 96 % Dr. Jose Hdz Work Phone: [facility] 06-28-2023 14:30-0400 Systolic blood pressure 137 mm[Hg] Dr. Jose Hdz Work Phone: [facility] 06-28-2023 00:01-0400 Body mass index (BMI) [Ratio] 23.1 kg/m2 Dr. Jose Hdz Work Phone: [facility] 06-28-2023 00:01-0400 Body weight 59.[address] Jose Hdz Work Phone: [facility] 06-27-2023 10:01-0400 Body height 160.[address] Jose Hdz Work Phone: [facility] 06-27-2023 03:30-0400 Inhaled oxygen flow rate 2 L/min Dr. Jose Hdz Work Phone: [facility] 06-26-2023 20:53-0400 Body temperature 97.1 [degF] Dr. Jose Hdz Work Phone: [facility] 06-26-2023 20:53-0400 Diastolic blood pressure 73 mm[Hg] Dr. Jose Hdz Work Phone: [facility] 06-26-2023 20:53-0400 Heart rate 88 /min Dr. Jose Hdz Work Phone: [facility] 06-26-2023 20:53-0400 Respiratory rate 19 /min Dr. Jose Hdz Work Phone: [facility] 06-26-2023 20:53-0400 SaO2% (BldA) [Mass fraction] 93 % Dr. Jose Hdz Work Phone: [facility] 06-26-2023 20:53-0400 Systolic blood pressure 170 mm[Hg] Dr. Jose Hdz Work Phone: [facility] 06-26-2023 16:25-0400 Body height 160.[address] Jose Hdz Work Phone: [facility] 06-26-2023 16:25-0400 Body mass index (BMI) [Ratio] 24.7 kg/m2 Dr. Jose Hdz Work Phone: [facility] 06-26-2023 16:25-0400 Body weight 63.[address] Jose Hdz Work Phone: [facility] 06-26-2023 09:37-0400 Body temperature 97.8 [degF] Dr. Jose Hdz Work Phone: [facility] 06-26-2023 09:37-0400 Diastolic blood pressure 56 mm[Hg] Dr. oJse Hdz Work Phone: [facility] 06-26-2023 09:37-0400 Heart rate 77 /min Dr. Jose Hdz Work Phone: [facility] 06-26-2023 09:37-0400 Respiratory rate 18 /min Dr. Jose Hdz Work Phone: [facility] 06-26-2023 09:37-0400 SaO2% (BldA) [Mass fraction] 98 % Dr. Jose Hdz Work Phone: [facility] 06-26-2023 09:37-0400 Systolic blood pressure 144 mm[Hg] Dr. Jose Hdz Work Phone: [facility] 06-26-2023 06:37-0400 Body height 160.[address] Jose Hdz Work Phone: [facility] 06-26-2023 06:37-0400 Body mass index (BMI) [Ratio] 24.2 kg/m2 Dr. Jose Hdz Work Phone: [facility] 06-26-2023 06:37-0400 Body weight 62.[address] Jose Hdz Work Phone: [facility] 06-11-2023 13:00-0500 Body mass index (BMI) [Ratio] 29.7 kg/m2 Dr. Jose Hdz Work Phone: [facility] 06-11-2023 13:00-0500 Body temperature 97.6 [degF] Dr. Jose Hdz Work Phone: [facility] 06-11-2023 13:00-0500 Body weight 76.[address] Jose Hdz Work Phone: [facility] 06-11-2023 13:00-0500 Diastolic blood pressure 88 mm[Hg] Dr. Jose Hdz Work Phone: [facility] 06-11-2023 13:00-0500 Heart rate 76 /min Dr. Jose Hdz Work Phone: [facility] 06-11-2023 13:00-0500 Respiratory rate 16 /min Dr. Jose Hdz Work Phone: [facility] 06-11-2023 13:00-0500 SaO2% (BldA) [Mass fraction] 99 % Dr. Jose Hdz Work Phone: [facility] 06-11-2023 13:00-0500 Systolic blood pressure 127 mm[Hg] Dr. Jose Hdz Work Phone: [facility] 06-11-2023 09:38-0500 Body height 160.[address] Jose Hdz Work Phone: [facility] 04-28-2023 12:00-0500 Diastolic blood pressure 58 mm[Hg] Dr. Jose Hdz Work Phone: [facility] 04-28-2023 12:00-0500 Heart rate 78 /min Dr. Jose Hdz Work Phone: [facility] 04-28-2023 12:00-0500 Respiratory rate 18 /min Dr. Jose Hdz Work Phone: [facility] 04-28-2023 12:00-0500 Systolic blood pressure 167 mm[Hg] Dr. Jose Hdz Work Phone: 3(276)543-322450 [place] [address] 04-28-2023 09:58-0500 Body mass index (BMI) [Ratio] 23.7 kg/m2 Dr. Jose Hdz Work Phone: [facility] 04-28-2023 09:58-0500 Body temperature 97.6 [degF] Dr. Jose Hdz Work Phone: 2(367)662-663594 [address] 04-28-2023 09:58-0500 Body weight 60.[address] Jose Hdz Work Phone: 8(157)085-075850 [place] [address] 04-28-2023 09:58-0500 SaO2% (BldA) [Mass fraction] 95 % Dr. Jose Hdz Work Phone: 0(334)098-744994 [address] 04-25-2023 08:39-0500 Body mass index (BMI) [Ratio] 23.2 kg/m2 Dr. Jose Hdz Work Phone: [facility] 04-25-2023 08:39-0500 Body weight 59.[address] Jose Hdz Work Phone: [facility] 04-25-2023 08:39-0500 Diastolic blood pressure 85 mm[Hg] Dr. Jose Hdz Work Phone: [facility] 04-25-2023 08:39-0500 Heart rate 87 /min Dr. Jose Hdz Work Phone: [facility] 04-25-2023 08:39-0500 Respiratory rate 18 /min Dr. Jose Hdz Work Phone: [facility] 04-25-2023 08:39-0500 SaO2% (BldA) [Mass fraction] 98 % Dr. Jose Hdz Work Phone: [facility] 04-25-2023 08:39-0500 Systolic blood pressure 161 mm[Hg] Dr. Jose Hdz Work Phone: [facility] 04-02-2023 13:18-0500 Diastolic blood pressure 77 mm[Hg] Dr. Jose Hdz Work Phone: [facility] 04-02-2023 13:18-0500 Heart rate 87 /min Dr. Jose Hdz Work Phone: [facility] 04-02-2023 13:18-0500 Respiratory rate 17 /min Dr. Jose Hdz Work Phone: [facility] 04-02-2023 13:18-0500 SaO2% (BldA) [Mass fraction] 98 % Dr. Jose Hdz Work Phone: [facility] 04-02-2023 13:18-0500 Systolic blood pressure 175 mm[Hg] Dr. Jose Hdz Work Phone: [facility] 04-02-2023 12:53-0500 Body mass index (BMI) [Ratio] 22.9 kg/m2 Dr. Jose Hdz Work Phone: [facility] 04-02-2023 12:53-0500 Body weight 58.[address] Jose Hdz Work Phone: [facility] 04-02-2023 12:52-0500 Body height 160.[address] Jose Hdz Work Phone: [facility] 04-02-2023 12:44-0500 Body temperature 97.5 [degF] Dr. Jose Hdz Work Phone: [facility] 01-07-2023 01:19-0400 Heart rate 67 /min Dr. Jose Hdz Work Phone: [facility] 01-07-2023 01:19-0400 Respiratory rate 18 /min Dr. Jose Hdz Work Phone: [facility] 01-07-2023 01:19-0400 SaO2% (BldA) [Mass fraction] 97 % Dr. Jose Hdz Work Phone: [facility] 01-06-2023 19:29-0400 Body height 160.[address] Jose Hdz Work Phone: [facility] 01-06-2023 19:29-0400 Body mass index (BMI) [Ratio] 22.9 kg/m2 Dr. Jose Hdz Work Phone: [facility] 01-06-2023 19:29-0400 Body temperature 98 [degF] Dr. Jose Hdz Work Phone: [facility] 01-06-2023 19:29-0400 Body weight 58.[address] Jose Hdz Work Phone: [facility] 01-06-2023 19:29-0400 Diastolic blood pressure 66 mm[Hg] Dr. Jose Hdz Work Phone: [facility] 01-06-2023 19:29-0400 Systolic blood pressure 149 mm[Hg] Dr. Jose Hdz Work Phone: [facility] 11-08-2022 11:02-0400 Body height 160.[address] Jose Hdz Work Phone: [facility] 11-08-2022 11:02-0400 Body weight 59.[address] Jose Hdz Work Phone: [facility] 10-29-2022 07:51-0400 Body mass index (BMI) [Ratio] 23.2 kg/m2 Dr. Jose Hdz Work Phone: [facility] 10-28-2022 15:29-0400 Body weight 56.52 kg Jordana Flores DAIRY ASSOCIATE[employer] Work Phone: [facility] 10-28-2022 15:29-0400 Diastolic blood pressure 73 mm[Hg] Jordana Flores DAIRY ASSOCIATE.[employer]ACHINE Work Phone: [facility] 07-13-2023 15:29-0400 Heart rate 67 /min Jordana Dahlhausen DAIRY ASSOCIATE.[employer]ACHINE Work Phone: [facility] 10-28-2022 15:29-0400 Respiratory rate 16 /min Jordana Dahlhausen DAIRY ASSOCIATE.[employer]ACHINE Work Phone: [facility] 10-28-2022 15:29-0400 SaO2% (BldA) [Mass fraction] 96 % Jordana Dahlhausen DAIRY ASSOCIATE.[employer] R[employer]ACHINE Work Phone: [facility] 10-28-2022 15:29-0400 Systolic blood pressure 132 mm[Hg] Jordana Dahlhausen DAIRY ASSOCIATE.[employer] R[employer]ACHINE Work Phone: [facility] 10-27-2022 14:36-0400 Body weight 59.[address] Jose Hdz Work Phone: [facility] 10-27-2022 14:36-0400 Diastolic blood pressure 79 mm[Hg] Dr. Jose Hdz Work Phone: [facility] 10-27-2022 14:36-0400 Heart rate 76 /min Dr. Jose Hdz Work Phone: [facility] 10-27-2022 14:36-0400 Respiratory rate 16 /min Dr. Jose Hdz Work Phone: [facility] 10-27-2022 14:36-0400 Systolic blood pressure 150 mm[Hg] Dr. Jose Hdz Work Phone: [facility] 10-18-2022 12:12-0400 Body temperature 98 [degF] Dr. Jose Hdz Work Phone: [facility] 10-18-2022 12:12-0400 Diastolic blood pressure 69 mm[Hg] Dr. Jose Hdz Work Phone: [facility] 10-18-2022 12:12-0400 Heart rate 88 /min Dr. Jose Hdz Work Phone: [facility] 10-18-2022 12:12-0400 Respiratory rate 18 /min Dr. Jose Hdz Work Phone: [facility] 10-18-2022 12:12-0400 SaO2% (BldA) [Mass fraction] 95 % Dr. Jose Hdz Work Phone: [facility] 10-18-2022 12:12-0400 Systolic blood pressure 131 mm[Hg] Dr. Jose Hdz Work Phone: [facility] 10-18-2022 04:30-0400 Body mass index (BMI) [Ratio] 23.1 kg/m2 Dr. Jose Hdz Work Phone: [facility] 10-18-2022 04:30-0400 Body weight 59.[address] Jose Hdz Work Phone: [facility] 10-18-2022 04:00-0400 Inhaled oxygen flow rate 2 L/min Dr. Jose Hdz Work Phone: [facility] 10-17-2022 01:00-0400 Body temperature 97 [degF] [facility] 10-17-2022 01:00-0400 Diastolic blood pressure 62 mm[Hg] [facility] 10-17-2022 01:00-0400 Heart rate 69 /min [facility] 10-17-2022 01:00-0400 Respiratory rate 17 /min [facility] 10-17-2022 01:00-0400 SaO2% (BldA) [Mass fraction] 96 % [facility] 10-17-2022 01:00-0400 Systolic blood pressure 140 mm[Hg] [facility] 10-16-2022 21:26-0400 Body height 162.56 cm [facility] 10-16-2022 21:26-0400 Body mass index (BMI) [Ratio] 22.6 kg/m2 [facility] 10-16-2022 21:26-0400 Body weight 59.9 kg [facility] 10-12-2022 23:24-0400 Diastolic blood pressure 77 mm[Hg] Dr. Jose Hdz Work Phone: [facility] 10-12-2022 23:24-0400 Heart rate 64 /min Dr. Jose Hdz Work Phone: [facility] 10-12-2022 23:24-0400 Respiratory rate 15 /min Dr. Jose Hdz Work Phone: [facility] 10-12-2022 23:24-0400 SaO2% (BldA) [Mass fraction] 99 % Dr. Jose Hdz Work Phone: [facility] 10-12-2022 23:24-0400 Systolic blood pressure 121 mm[Hg] Dr. Jose Hdz Work Phone: [facility] 10-12-2022 22:16-0400 Body height 162.[address] Jose Hdz Work Phone: [facility] 10-12-2022 22:16-0400 Body mass index (BMI) [Ratio] 23.5 kg/m2 Dr. Jose Hdz Work Phone: [facility] 10-12-2022 22:16-0400 Body temperature 97.6 [degF] Dr. Jose Hdz Work Phone: [facility] 10-12-2022 22:16-0400 Body weight 62.[address] Jose Hdz Work Phone: [facility] 09-07-2022 22:06-0400 Respiratory rate 16 /min Dr. Jose Hdz Work Phone: [facility] 09-07-2022 21:09-0400 Diastolic blood pressure 48 mm[Hg] Dr. Jose Hdz Work Phone: [facility] 09-07-2022 21:09-0400 SaO2% (BldA) [Mass fraction] 96 % Dr. Jose Hdz Work Phone: [facility] 09-07-2022 21:09-0400 Systolic blood pressure 143 mm[Hg] Dr. Jose Hdz Work Phone: [facility] 09-07-2022 18:08-0400 Body mass index (BMI) [Ratio] 23.3 kg/m2 Dr. Jose Hdz Work Phone: [facility] 09-07-2022 18:08-0400 Body weight 61.[address] Jose Hdz Work Phone: [facility] 09-07-2022 17:50-0400 Body temperature 97.2 [degF] Dr. Jose Hdz Work Phone: [facility] 09-07-2022 17:50-0400 Heart rate 70 /min Dr. Jose Hdz Work Phone: [facility] 06-15-2022 12:45-0500 Body mass index (BMI) [Ratio] 23.1 kg/m2 Dr. Jose Hdz Work Phone: [facility] 06-15-2022 08:41-0500 Body temperature 97.4 [degF] Dr. Jose Hdz Work Phone: [facility] 06-15-2022 08:41-0500 Diastolic blood pressure 74 mm[Hg] Dr. Jose Hdz Work Phone: [facility] 06-15-2022 08:41-0500 Heart rate 64 /min Dr. Jose Hdz Work Phone: [facility] 06-15-2022 08:41-0500 Respiratory rate 16 /min Dr. Jose Hdz Work Phone: [facility] 06-15-2022 08:41-0500 SaO2% (BldA) [Mass fraction] 95 % Dr. Jose Hdz Work Phone: [facility] 06-15-2022 08:41-0500 Systolic blood pressure 144 mm[Hg] Dr. Jose Hdz Work Phone: [facility] 06-15-2022 03:47-0500 Body weight 61.[address] Jose Hdz Work Phone: [facility] 06-14-2022 13:30-0500 Inhaled oxygen flow rate 2 L/min Dr. Jose Hdz Work Phone: [facility] 06-14-2022 11:57-0500 Body height 162.[address] Jose Hdz Work Phone: [facility] Encounters Encounter Date Encounter Type Care Provider Facility Start: 10-16-2024 End: 10-17-2024 Emergency department patient visit Dr. Jose Hdz MD Work Phone: -Emergency Department Work Phone: Start: 10-15-2024 End: 10-15-2024 Emergency department patient visit Dr. Jose Hdz MD Work Phone: -Emergency Department Work Phone: Start: 10-02-2024 ambulatory Jose Hdz Facility:[facility] Start: 09-28-2024 End: 09-28-[address] Jose Hdz MD Work Phone: [facility] Start: 09-28-2024 End: 09-28-[address] Catalino Sidhu MD -[facility] Work Phone: Start: 09-28-2024 End: 09-28-[address] Jose Hdz MD Work Phone: [facility] Work Phone: Start: 09-28-2024 End: 09-28-2024 Patient encounter procedure Abhilash Xochitlorr DOCKET SPECIALIST-C -[facility] [place] Work Phone: Start: 09-28-2024 End: 09-28-2024 ambulatory Abhilash McMorrow DOCKET SPECIALIST Facility:[facility] Start: 08-29-2024 End: 08-29-[address] Jose Hdz MD Work Phone: [facility] Work Phone: Start: 08-29-2024 End: 08-29-[address] Catalino Sidhu MD -[facility] Work Phone: Start: 07-30-2024 End: 07-30-2024 ambulatory Catalino Sidhu Facility:[facility] Start: 07-30-2024 End: 07-30-[address] Catalino Sidhu MD -[facility] Work Phone: Start: 07-26-2024 End: 07-26-[address] Jose Hdz MD Work Phone: [facility] Work Phone: Start: 07-26-2024 End: 07-26-[address] Jose Hdz MD -Laboratory, [facility] Start: 07-26-2024 End: 07-26-2024 ambulatory Jose Hdz Facility:[facility] Start: 07-17-2024 Non-patient / Non-visit Dr. Vernon [facility] Work Phone: Start: 07-16-2024 Non-patient / [facility] Work Phone: Start: 07-16-2024 Non-patient / Non-visit Brad Bliss nd [facility] Start: 07-15-2024 End: 07-17-2024 ambulatory Leonora Mojica Facility:[facility] Start: 07-15-2024 End: 07-17-2024 Evaluation and management of inpatient Dr. Leonora Mojica MD -Medical Surgical 3 Work Phone: Start: 07-15-2024 End: 07-17-[address] Jose Hdz MD Work Phone: [facility] Work Phone: Start: 06-30-2024 End: 06-30-2024 ambulatory Catalino Sidhu Facility:[facility] Start: 06-30-2024 End: 06-30-[address] Catalino Sidhu MD -[facility] Work Phone: Start: 05-31-2024 End: 05-31-2024 ambulatory Catalino Sidhu Facility:[facility] Start: 05-31-2024 End: 05-31-[address] Catalino Sidhu MD -[facility] Work Phone: Start: 05-21-2024 End: 05-21-[address] Jose Hdz MD -Laboratory, [facility] Start: 05-21-2024 End: 05-21-2024 ambulatory Jose Hdz Facility:[facility] Start: 05-01-2024 End: 05-01-2024 ambulatory Catalino Sidhu Facility:[facility] Start: 05-01-2024 End: 05-01-[address] Catalino Sidhu MD -[facility] Work Phone: Start: 04-29-2024 End: 04-29-2024 ambulatory Catalino Sidhu Facility:[facility] Start: 04-29-2024 End: 04-29-[address] Catalino Sidhu MD -[facility] Work Phone: Start: 04-17-2024 End: 04-17-2024 Patient encounter procedure Liane Moulton [facility] Work Phone: Start: 04-17-2024 End: 04-17-2024 ambulatory Liane Moulton Facility:[facility] Start: 04-17-2024 End: 04-17-2024 ambulatory [facility] Facility:[facility] Start: 04-01-2024 End: 04-01-2024 ambulatory Catalino Sidhu Facility:[facility] Start: 04-01-2024 End: 04-01-[address] Catalino Sidhu MD -[facility] Work Phone: Start: 03-25-2024 Non-patient / Non-visit Dr. Vernon [facility] Work Phone: Start: 03-24-2024 Non-patient / Non-visit Dr. Vernon [facility] Work Phone: Start: 03-23-2024 ambulatory Brad [place] Facility :[facility] Start: 03-23-2024 Non-patient / Non-visit Brad Bliss nd [facility] Start: 03-23-2024 Non-patient / Non-visit Dr. Lamin berkowitz MD -[facility] Work Phone: Start: 03-22-2024 Non-patient / Non-visit Brad Izaiah lorena [facility] Start: 03-22-2024 Non-patient / Non-visit Dr. Lamin berkowitz MD -[facility] Work Phone: Start: 03-21-2024 Non-patient / Non-visit Dr. Dimitri Ritter DO -[facility] Work Phone: Start: 03-21-2024 ambulatory Remus Ungur [facility] Start: 03-21-2024 End: 03-25-2024 Evaluation and management of inpatient Dr. Brodie Swartz DO -Medical Surgical 3 Work Phone: Start: 03-18-2024 End: 03-18-2024 Emergency department patient visit Dr. Jono Casanova MD -Emergency Department Work Phone: Start: 03-07-2024 End: 03-07-2024 ambulatory Jose Hdz Facility:[facility] Start: 03-02-2024 End: 03-02-2024 ambulatory [place] Thea Facility:[facility] Start: 03-02-2024 End: 03-02-2024 ambulatory Jose Hdz Facility:[facility] Start: 02-01-2024 End: 02-01-2024 ambulatory [place] Facility:[facility] Start: 01-02-2024 End: 01-02-2024 ambulatory Catalino Thea Facility:[facility] Start: 11-25-2023 End: 11-25-2023 ambulatory Jose [place] Facility:[facility] Start: 11-14-2023 End: 11-14-2023 ambulatory Lila Cobb OT/Suzanne Phan Occupation Therapy [place] Comment on above: Cerebral infarction, unspecified mechanism (HCC) (Primary Dx); Dementia without behavioral disturbance (HCC); Driving safety issue Start: 11-03-2023 End: 11-03-2023 ambulatory Catalino Thea Facility:[facility] Start: 10-28-2023 End: 10-28-2023 ambulatory Jose Am[place]st Facility:[facility] Start: 08-20-2023 End: 08-20-2023 Emergency department patient visit Dr. Jose Hdz Work Phone: [facility]-Emergency Department Work Phone: Start: 08-05-2023 End: 08-05-[address] Jose Hdz Work Phone: [facility] Work Phone: Start: 08-04-[address] [facility] Start: 07-24-2023 ambulatory [facility] Facility:[facility] Start: 07-24-2023 End: 07-24-2023 Emergency department patient visit Dr. Jose Hdz Work Phone: [facility]-Emergency Department Work Phone: Start: 07-19-2023 Non-patient / Non-visit Dr. Amol Hdz Work Phone: [facility] Start: 07-19-2023 End: 07-19-[address] Jose Hdz Work Phone: [facility] Work Phone: Start: 07-19-2023 End: 07-19-[address] [facility] Start: 07-15-[address] [facility] Start: 07-06-2023 End: 07-06-[address] Jose Hdz Work Phone: [facility] Work Phone: Start: 07-05-2023 End: 07-05-[address] Jose Hdz Work Phone: [facility] Work Phone: Start: 07-05-2023 End: 07-05-[address] Jose Hdz Work Phone: [facility] Work Phone: Start: 06-30-2023 End: 06-30-[address] Jose Hdz Work Phone: [facility] Work Phone: Start: 06-30-2023 End: 06-30-[address] Jose Hdz Work Phone: [facility]-Pulmonary Services/Neurology Work Phone: Start: 06-28-2023 Non-patient / Non-visit Dr. Amol Hdz Work Phone: [facility] Work Phone: Start: 06-27-2023 Non-patient / Non-visit Dr. Amol Hdz Work Phone: [facility] Work Phone: Start: 06-26-2023 End: 06-28-2023 Evaluation and management of inpatient Dr. Jose Hdz Work Phone: [facility]-Intensive Care Unit Work Phone: Start: 06-26-2023 End: 06-28-[address] Jose Hdz Work Phone: [facility] Work Phone: Start: 06-26-2023 End: 06-26-2023 Emergency department patient visit Dr. Jose Hdz Work Phone: [facility]-Emergency Department Work Phone: Start: 06-11-2023 End: 06-11-2023 Emergency department patient visit Dr. Jose Hdz Work Phone: [facility]-Emergency Department Work Phone: Start: 06-02-[address] Jose Hdz Work Phone: [facility]-Physical Therapy Work Phone: Start: 05-07-2023 End: 05-07-[address] Jose Hdz Work Phone: [facility] Work Phone: Start: 04-28-2023 End: 04-28-2023 Emergency department patient visit Dr. Jose Hdz Work Phone: [facility]-Emergency Department Work Phone: Start: 04-25-2023 End: 04-25-[address] Jose Hdz Work Phone: [facility] Work Phone: Start: 04-07-2023 End: 04-07-[address] Jose Hdz Work Phone: [facility] Work Phone: Start: 04-02-2023 End: 04-02-2023 Emergency department patient visit Dr. Jose Hdz Work Phone: [facility]-Emergency Department Work Phone: Start: 01-18-2023 End: 01-18-[address] Jose Hdz Work Phone: [facility] Start: 01-07-2023 End: 01-07-[address] Jose Hdz Work Phone: [facility] Work Phone: Start: 01-06-2023 End: 01-07-2023 Emergency department patient visit Dr. Jose Hdz Work Phone: [facility]-Emergency Department Work Phone: Start: 01-06-2023 End: 01-06-[address] Jose Hdz Work Phone: [facility] Work Phone: Start: 01-06-2023 End: 01-06-[address] Jose Hdz Work Phone: [facility] Start: 11-19-2022 End: 11-19-[address] Jose Hdz Work Phone: [facility] Work Phone: Start: 11-19-2022 End: 11-19-[address] Jose Hdz Work Phone[facility] Start: 11-17-2022 Telephone encounter Jordana Asencio APRN.ROUGH ROUNDER MACHINE Work Phone: Neurology Comment on above: Appointment Start: 11-08-2022 End: 11-08-2022 Admission to same day surgery center Dr. Jose Hdz Work Phone: [facility]-Data Programmer/Special Procedures Work Phone: Start: 11-08-2022 End: 11-08-[address] Jose Hdz Work Phone: [facility] Work Phone: Start: 10-28-2022 End: 10-29-2022 ambulatory JORDANA FLORES Facility:[facility] Start: 10-28-2022 End: 10-28-2022 Patient encounter procedure Jordana Flores DAIRY ASSOCIATE.ROUGH ROUNDER MACHINE Work Phone: Neurology Comment on above: Cerebrovascular acci dent (CVA), unspecified mechanism (HCC) (Primary Dx); Syncope, unspecified syncope type; Unresponsive episode; TIA (transient ischemic attack) Start: 10-27-2022 End: 10-27-[address] Jose Hdz Work Phone: [facility] Work Phone: Start: 10-22-2022 End: 10-22-[address] Jose Hdz Work Phone: [facility] Work Phone: Start: 10-22-2022 End: 10-22-[address] Jose Hdz Work Phone: [facility]-Speech Therapy Work Phone: Start: 10-22-[address] Jose Hdz Work Phone: [facility]-Speech Therapy Work Phone: Start: 10-18-2022 Non-patient / Non-visit Dr. Amol Hdz Work Phone: [facility] Work Phone: Start: 10-17-2022 End: 10-18-2022 Evaluation and management of inpatient [facility]-Progressive Care Unit Work Phone: Start: 10-17-2022 observation encounter [facility] Work Phone: Start: 10-12-2022 End: 10-12-2022 Emergency department patient visit Dr. Jose Hdz Work Phone: [facility]-Emergency Department Start: 09-29-[address] Jose Hdz Work Phone: [facility]-Speech Therapy Start: 09-07-2022 End: 09-07-2022 Emergency department patient visit Dr. Jose Hdz Work Phone: [facility]-Emergency Department Start: 08-09-2022 End: 08-09-[address] Jose Hdz Work Phone: [facility] Start: 06-30-2022 End: 06-30-2022 ambulatory Lila Cobb OT/Suzanne Rosales Occupation [facility] Comment on above: Cerebral infarction, unspecified mechanism (HCC) (Primary Dx) Start: 06-25-[address] Jose sunshine Work Phone: [facility]-Cardiovascular Services Start: 06-15-2022 Non-patient / Non-visit Dr. Amol Hdz Work Phone: [facility] Start: 06-14-2022 Non-patient / Non-visit Dr. Amol Hdz Work Phone: [facility] Start: 06-14-2022 Non-patient / Non-visit Dr. Amol Hdz Work Phone: [facility] Start: 06-13-2022 End: 06-15-2022 Evaluation and management of inpatient Dr. Jose Hdz Work Phone: [facility]-Progressive Care Unit Start: 05-11-2022 End: 05-11-2022 ambulatory [facility] Work Phone: Start: 05-11-2022 End: 05-11-2022 Patient encounter procedure [facility] Start: 03-03-2022 End: 03-03-2022 ambulatory [facility] Work Phone: Start: 03-03-2022 End: 03-03-2022 Patient encounter procedure [facility]-Outpatient Bone Densitometry Start: 12-17-2021 End: 12-17-2021 ambulatory [facility] Work Phone: Start: 12-17-2021 End: 12-17-2021 Patient encounter procedure [facility] Start: 11-17-2021 End: 11-17-2021 Patient encounter procedure [facility] Start: 03-14-2017 Ambulatory Micky David Whitney Facilit [id number] Start: 03-14-2017 [id number] Procedures Date Procedure Procedure Detail Performing Clinician Start: 10-16-2024 Computed tomography of abdomen and pelvis with contrast Dr. Jose Hdz MD Work Phone: Start: 10-16-[address] Jose Hdz MD Work Phone: Start: 10-16-2024 Measurement of occult blood in stool specimen using immunoassay Dr. Jose Hdz MD Work Phone: Start: 09-28-2024 Plain X-ray of finger Dr. Jose Hdz MD Work Phone: Start: 07-17-[address] Jose Hdz MD Work Phone: Start: 07-15-2024 Computed tomography of abdomen and pelvis with contrast Dr. Jose Hdz MD Work Phone: Start: 07-15-2024 Measurement of occult blood in stool specimen using immunoassay Dr. Jose Hdz MD Work Phone: Start: 03-23-[address] Jose Hdz MD Work Phone: Start: 03-23-[address] Jose payton MD Work Phone: Start: 03-21-2024 Computed tomography of abdomen and pelvis with contrast Dr. Jose Hdz MD Work Phone: Start: 03-18-2024 Plain X-ray abdomen Dr. Jose Hdz MD Work Phone: Start: 08-20-2023 Diagnostic radiography of abdomen Dr. Amol Hdz Work Phone: Start: 07-24-2023 Plain chest X-ray Dr. Jose Hdz Work Phone: Start: 07-05-2023 Diagnostic radiography of abdomen Dr. Amol Hdz Work Phone: Start: 06-26-2023 MRI of lower extremity Dr. Jose Hdz Work Phone: Start: 06-26-2023 Radiologic examination of knee Dr. Jose Hdz Work Phone: Start: 06-26-2023 CT cervical spine without contrast Dr. Gilma Hdz Work Phone: Start: 06-26-2023 CT of head without contrast Dr. Jose marie Work Phone: Start: 06-26-2023 Plain chest X-ray Dr. Jose Hdz Work Phone: Start: 06-11-2023 Plain chest X-ray Dr. Jose Hdz Work Phone: Start: 04-28-2023 SARS-CoV-2, Influenza & RSV (PCR) Dr. Amol Hdz Work Phone: Start: 04-28-2023 CT of head without contrast Dr. Jose Newell Work Phone: Start: 04-02-2023 CT angiography of head and neck Dr. Jose Hdz Work Phone: Start: 04-02-2023 CT of head without contrast Dr. Jose marie Work Phone: Start: 04-02-2023 Plain chest X-ray Dr. Jose Hdz Work Phone: Start: 11-19-2022 Diagnostic radiography of abdomen, decubitus and erect Dr. Jose Hdz Work Phone: Start: 11-19-[address] Jose Hdz Work Phone: Start: 10-17-2022 MRI of brain with contrast Dr. Jose De Dios Work Phone: Start: 10-16-2022 Plain chest X-ray Start: 10-16-2022 CT of head without contrast Start: 10-12-2022 Plain chest X-ray Dr. Jose Hdz Work Phone: Start: 10-12-2022 CT angiography of head and neck Dr. Jose Hdz Work Phone: Start: 10-12-2022 CT of head without contrast Dr. Jose Newell Work Phone: Start: 09-07-2022 CT of head without contrast Dr. Jose Newell Work Phone: Start: 06-14-2022 MRI of brain without contrast Dr. Jose sunshine Work Phone: Start: 06-13-2022 CT angiography of head and neck Dr. Jose Hdz Work Phone: Start: 06-13-2022 Plain chest X-ray Dr. Jose Hdz Work Phone: Start: 06-13-2022 CT of head without contrast Dr. Jose marie Work Phone: Start: 03-03-2022 Dual energy X-ray absorptiometry Start: 03-03-2022 Screening mammography H/O: hysterectomy History of hysterectomy SARS-CoV-2 & FLU Antigen (Rapid) Dr. Jose Hdz Work Phone: Plan of Treatment Date Care Activity Detail Author Start: 11-11-2030 Urine microalbumin profile DTa P,Tdap,Td Vaccine (3 - Td or Tdap) [facility] Start: 10-17-2024 Admission procedure [facility] Start: 10-17-2024 Verification routine [facility] Start: 10-16-2024 Hospital admission, emergency, from emergency room, medical nature [facility] Start: 10-16-2024 Administration of bl ood product [facility] Start: 10-16-2024 Leukocyte reduced re d blood cells [facility] Start: 10-16-2024 [facility] Start: 07-17-2024 Patient discharge [facility] Start: 07-15-2024 Application of intermittent pneumatic compression device [facility] Start: 07-15-2024 Following clinical p athway protocol [facility] Start: 07-15-2024 Assessment of risk o f venous thromboembolism [facility] Start: 07-15-2024 Inhalation therapy procedure [facility] Start: 07-15-2024 Insertion of cathete r into peripheral vein [facility] Start: 07-15-2024 Measuring intake and output [facility] Start: 07-15-2024 Providing care accor ding to standard [facility] Start: 07-15-2024 Provision of activit y privileges [facility] Start: 07-15-2024 Referral to gastroenterology service [facility] Start: 07-15-2024 [facility] Start: 07-15-2024 Admission procedure [facility] Start: 07-15-2024 Verification routine [facility] Start: 07-15-2024 Hospital admission, emergency, from emergency room, medical [facility] Start: 07-15-2024 [facility] Start: 07-15-2024 Leukocyte reduced re d blood cells [facility] Start: 07-15-2024 [facility] Start: 07-15-2024 [facility] Start: 03-25-2024 Patient discharge [facility] Start: 03-24-2024 Care planning and pr oblem solving actions [facility] Start: 03-23-2024 Referral to occupati onal therapist [facility] Start: 03-23-2024 Referral to service [facility] Start: 03-23-2024 Speech therapy assessment [facility] Start: 03-22-2024 Referral to gastroenterology service [facility] Start: 03-22-2024 Administration of bl ood product [facility] Start: 03-22-2024 Administration of bl ood product [facility] Start: 03-21-2024 End: 03-22-2024 [facility] Start: 03-21-2024 Application of intermittent pneumatic compression device [facility] Start: 03-21-2024 Following clinical p athway protocol [facility] Start: 03-21-2024 Aspiration precautions [facility] Start: 03-21-2024 Assessment of risk o f venous thromboembolism [facility] Start: 03-21-2024 Bedrest [facility] Start: 03-21-2024 Documentation procedure [facility] Start: 03-21-2024 Elevation of head of bed [facility] Start: 03-21-2024 Insertion of cathete r into peripheral vein [facility] Start: 03-21-2024 Measuring intake and output [facility] Start: 03-21-2024 Providing care accor ding to standard [facility] Start: 03-21-2024 Referral to service [facility] Start: 03-21-2024 Vital signs measurements [facility] Start: 03-21-2024 Admission procedure [facility] Start: 03-21-2024 Administration of bl ood product [facility] Start: 03-21-2024 Patient referral to dietitian [facility] Start: 03-18-2024 Emergency department visit moderate severity EMERGENCY DEPT VISIT LOW MDM [facility] Start: 03-18-2024 [facility] Start: 12-18-2023 Influenza vaccination Influenz a Vaccine (#1) [facility] Start: 08-20-2023 [facility] Start: 07-24-2023 [facility] Start: 07-05-2023 Diagnostic radiograp hy of abdomen Abdomen Single View [facility] Start: 07-05-2023 XR Abdomen Single view [facility] Start: 07-05-2023 Blood chemistry [facility] Start: 07-04-2023 Blood chemistry [facility] Start: 07-03-2023 Blood chemistry [facility] Start: 07-02-2023 Blood chemistry [facility] Start: 07-01-2023 Blood chemistry [facility] Start: 06-30-2023 Blood chemistry [facility] Start: 06-29-2023 Blood chemistry [facility] Start: 06-28-2023 Patient discharge [facility] Start: 06-27-2023 [facility] Start: 06-26-2023 Following clinical p athway protocol [facility] Start: 06-26-2023 Application of intermittent pneumatic compression device [facility] Start: 06-26-2023 Application of knee immobilizer [facility] Start: 06-26-2023 Assessment of risk o f venous thromboembolism [facility] Start: 06-26-2023 Fall prevention [facility] Start: 06-26-2023 Incentive spirometry [facility] Start: 06-26-2023 Inhalation therapy procedure [facility] Start: 06-26-2023 Insertion of cathete r into peripheral vein [facility] Start: 06-26-2023 Introduction of urin tamar catheter [facility] Start: 06-26-2023 Measuring intake and output [facility] Start: 06-26-2023 Oxygen therapy [facility] Start: 06-26-2023 Providing care accor ding to standard [facility] Start: 06-26-2023 Provision of activit y privileges [facility] Start: 06-26-2023 Referral to occupati onal therapist [facility] Start: 06-26-2023 Referral to service [facility] Start: 06-26-2023 [facility] Start: 06-26-2023 Urinalysis complete panel - Urine [facility] Start: 06-26-2023 Verification routine [facility] Start: 06-26-2023 Admission procedure [facility] Start: 06-26-2023 Noninvasive ear/puls e oximetry single deter MEASURE BLOOD OXYGEN LEVEL [facility] Start: 06-26-2023 Simple repair scalp/neck/ax/genit/trunk 2.5cm/< RPR S/N/AX/GEN/TRNK 2.5CM/< [facility] Start: 06-26-2023 US.doppler Lower ext remity vein [facility] Start: 06-26-2023 [facility] Start: 06-26-2023 [facility] Start: 06-26-2023 Patient referral to dietitian [facility] Start: 06-11-2023 [facility] Start: 06-11-2023 [facility] Start: 04-28-2023 [facility] Start: 04-18-2023 Advance Directive Discussion Advance Directive Discussion [facility] Start: 04-02-2023 [facility] Start: 04-02-2023 Oxygen therapy [facility] Start: 04-02-2023 [facility] Start: 12-17-2022 Covid-19 Vaccine ( season) Covid-19 Vaccine () [facility] Start: 12-17-2022 Influenza vaccination INFLUENZA (#1) [facility] Start: 11-08-2022 Patient discharge [facility] Start: 10-18-2022 Patient discharge [facility] Start: 10-18-2022 [facility] Start: 10-17-2022 [facility] Start: 10-17-2022 Following clinical p athway protocol [facility] Start: 10-17-2022 Aspiration precautions [facility] Start: 10-17-2022 Assessment of risk o f venous thromboembolism [facility] Start: 10-17-2022 Cardiac monitoring [facility] Start: 10-17-2022 Catheterization of vein [facility] Start: 10-17-2022 Continuous pulse oximetry [facility] Start: 10-17-2022 Elevation of head of bed [facility] Start: 10-17-2022 Exercises [facility] Start: 10-17-2022 Fall prevention [facility] Start: 10-17-[address] anned interventions [facility] Start: 10-17-2022 Incentive spirometry [facility] Start: 10-17-2022 Insertion of cathete r into peripheral vein [facility] Start: 10-17-2022 Introduction of urin tamar catheter [facility] Start: 10-17-2022 Measuring intake and output [facility] Start: 10-17-2022 Notification of physician [facility] Start: 10-17-2022 Oxygen therapy [facility] Start: 10-17-2022 Patient referral to dietitian [facility] Start: 10-17-2022 Providing care accor ding to standard [facility] Start: 10-17-2022 Provision of activit y privileges [facility] Start: 10-17-2022 Referral to occupati onal therapist [facility] Start: 10-17-2022 Referral to service [facility] Start: 10-17-2022 Speech therapy assessment [facility] Start: 10-17-2022 Tobacco use cessatio n education [facility] Start: 10-17-2022 [facility] Start: 10-17-2022 Verification routine [facility] Start: 10-17-2022 Admission procedure [facility] Start: 10-17-2022 [facility] Start: 10-16-2022 Oxygen therapy [facility] Start: 10-16-2022 [facility] Start: 10-12-2022 Oxygen therapy [facility] Start: 10-12-2022 [facility] Start: 06-15-2022 Patient discharge [facility] Start: 06-15-2022 Physiotherapy of chest [facility] Start: 06-13-2022 Following clinical p athway protocol [facility] Start: 06-13-2022 Aspiration precautions [facility] Start: 06-13-2022 Assessment of risk o f venous thromboembolism [facility] Start: 06-13-2022 Bacteria identified in Sputum by Culture [facility] Start: 06-13-2022 Cardiac monitoring [facility] Start: 06-13-2022 Catheterization of vein [facility] Start: 06-13-2022 Continuous pulse oximetry [facility] Start: 06-13-2022 Elevation of head of bed [facility] Start: 06-13-2022 Exercises [facility] Start: 06-13-2022 Fall prevention [facility] Start: 06-13-[address] anned interventions [facility] Start: 06-13-2022 Inhalation therapy procedure [facility] Start: 06-13-2022 Insertion of cathete r into peripheral vein [facility] Start: 06-13-2022 Introduction of urin tamar catheter [facility] Start: 06-13-2022 Measuring intake and output [facility] Start: 06-13-2022 Notification of physician [facility] Start: 06-13-2022 Oxygen therapy [facility] Start: 06-13-2022 Patient referral to dietitian [facility] Start: 06-13-2022 Providing care accor ding to standard [facility] Start: 06-13-2022 Provision of activit y privileges [facility] Start: 06-13-2022 Referral to occupati onal therapist [facility] Start: 06-13-2022 Referral to service [facility] Start: 06-13-2022 Speech therapy assessment [facility] Start: 06-13-2022 Tobacco use cessatio n education [facility] Start: 06-13-2022 [facility] Start: 06-13-2022 Verification routine [facility] Start: 06-13-2022 Admission procedure [facility] Start: 06-13-2022 Patient referral to dietitian [facility] Start: 05-06-2022 COVID-19 VACCINE (6 - Moderna series) COVID-19 VACCINE (6 - Moderna series) [facility] Start: 04-18-2022 ADVANCE DIRECTIVE DISCUSSION ADVANCE DIRECTIVE DISCUSSION [facility] Start: 04-18-2022 DEPRESSION ASSESSMENT DEPRESSION ASS ESSMENT [facility] Start: 08-16-2021 Diabetes Screening Diabetes Screenin g [facility] Start: 2005 BONE DENSITY BONE DENSITY [facility] Start: 2005 PNEUMOCOCCAL: 65+ (1 - PCV) PNEUMOCOCCAL: 65+ (1 - PCV) [facility] Start: 2005 Screening for osteoporosis Bon e Density Screening [facility] Start: 2000 RSV Vaccine (1 - 1-d ose 60+ series) RSV Vaccine (1 - 1-dose 60+ series) [facility] Start: 1990 SHINGRIX VACCINE (1 of 2) LOPEZ GRIX VACCINE (1 of 2) [facility] Start: 1985 DIABETES SCREEN DIABETES SCREEN [facility] Start: 1959 Urine microalbumin profile DTA P,TDAP,TD (1 - Tdap) [facility] Alanine aminotransfe rase [Enzymatic activity/volume] in Serum or Plasma [facility] Albumin [Mass/volume ] in Serum or Plasma [facility] Alkaline phosphatase [Enzymatic activity/volume] in Serum or Plasma [facility] Anion gap measurement [facility] Aspartate aminotrans ferase [Enzymatic activity/volume] in Serum or Plasma [facility] Bilirubin, total measurement [facility] BUN/Creatinine ratio [facility] Calcium [Mass/volume ] in Serum or Plasma [facility] Carbon dioxide, tota l [Moles/volume] in Serum or Plasma [facility] Cardiac event recording [facility] Cardiovascular funct ion eval w/tilt table w/mntr TILT TABLE EVALUATION Cardiology Routine Syncope, unspecified syncope type Ordered: 10/28/2022 [facility] Work Phone: Comment on above: Ordered: 10/28/2022 Chloride [Moles/volu me] in Serum or Plasma [facility] Creatinine [Moles/vo lume] in Serum or Plasma [facility] Erythrocyte mean corpuscular volume determination [facility] Ferritin [Mass/volum e] in Serum or Plasma [facility] Glucose [Mass/volume ] in Serum or Plasma [facility] Hematocrit [Volume Fraction] of Blood [facility] Hemoglobin [Mass/vol ume] in Blood [facility] Iron [Mass/mass] in Unspecified specimen [facility] Iron saturation [Mas s Fraction] in Serum or Plasma [facility] Lactic acid measurement [facility] Leukocytes [#/volume ] in Blood [facility] Magnesium [Mass/volu me] in Serum or Plasma [facility] Magnesium measurement [facility] Mean corpuscular hemoglobin concentration determination [facility] Mean corpuscular hemoglobin determination [facility] Measurement of renal function [facility] Neutrophil count [facility] Neutrophil percent differential count [facility] Patient Education [facility] Work Phone: Patient referral [facility] Work Phone: Platelets [#/volume] in Blood [facility] Potassium [Moles/vol ume] in Serum or Plasma [facility] Red blood cell count [facility] Red cell distributio n width determination [facility] Replacement of alan watson heart device, pulse generator [facility] Sodium [Moles/volume ] in Serum or Plasma [facility] Total iron binding capacity measurement [facility] Total protein measurement [facility] Urea nitrogen [Mass/volume] in Serum or Plasma [facility] Immunizations Immunization Date Immunization Notes Care Provider Heidi fields 06-26-2023 tetanus toxoid, redu maricarmen diphtheria toxoid, and acellular pertussis vaccine, adsorbed Dr. Jose Hdz Work Phone: [facility] 01-04-2022 influenza virus vaccine, unspecified formulation Lila Cobb OT/L [facility] 06-12-2020 Covid (Moderna) [facility] 05-15-2020 Covid (Moderna) [facility] 01-30-2018 Influenza virus vaccine [facility] 11-07-2017 tetanus toxoid, redu maricarmen diphtheria toxoid, and acellular pertussis vaccine, adsorbed [facility] 01-16-2016 Influenza virus vaccine [facility] Payers Date Payer Category Payer Unknown [id number] 2023 Self-pay [id number] 2023 Medicaid [id number] 2022 Medicare [id number] 2015 Medicare [id number] 2014 Medicare [id number] Medicare [id number] Medicare [employer] MEDICARE [id number] 000 [id number] Unknown [id number] Unknown [id number] 2.16.8 40.1.609461.3.579.2.462 Unknown [id number] 2.16.8 40.1.673204.3.579.2.462 Unknown [id number] 2.16.8 40.1.840417.3.579.2.462 Unknown [id number] 2.16.8 40.1.029685.3.579.2.462 Unknown [id number] 2.16.8 40.1.536304.3.579.2.462 Unknown [id number] 2.16.8 40.1.576887.3.579.2.462 Unknown [id number] 2.16.8 40.1.156125.3.579.2.462 Unknown [id number] 2.16.8 40.1.797778.3.579.2.462 Unknown [id number] 2.16.8 40.1.228589.3.579.2.462 Unknown [id number] 2.16.8 40.1.171583.3.579.2.462 Unknown [id number] 2.16.8 40.1.353596.3.579.2.462 Unknown [id number] 2.16.8 40.1.113019.3.579.2.462 Unknown [id number] 2.16.8 40.1.522528.3.579.2.462 Unknown [id number] 2.16.8 40.1.573303.3.579.2.462 Unknown [id number] 2.16.8 40.1.611140.3.579.2.462 Unknown [id number] 2.16.8 40.1.381075.3.579.2.462 Unknown [id number] 2.16.8 40.1.162479.3.579.2.462 Unknown [id number] 2.16.8 40.1.377181.3.579.2.462 Unknown [id number] 2.16.8 40.1.397626.3.579.2.462 Unknown [id number] 2.16.8 40.1.397866.3.579.2.462 Unknown [id number] 2.16.8 40.1.508921.3.579.2.462 Unknown [id number] 2.16.8 40.1.115201.3.579.2.462 Unknown [id number] 2.16.8 40.1.321011.3.579.2.462 Unknown [id number] 2.16.8 40.1.497153.3.579.2.462 Unknown [id number] 2.16.8 40.1.663993.3.579.2.462 Unknown [id number] 2.16.8 40.1.913664.3.579.2.462 Unknown [id number] 2.16.8 40.1.582664.3.579.2.462 Unknown [id number] 2.16.8 40.1.169785.3.579.2.462 Unknown [id number] 2.16.8 40.1.331289.3.579.2.462 Unknown [id number] 2.16.8 40.1.383027.3.579.2.462 Unknown [id number] 2.16.8 40.1.587803.3.579.2.462 Unknown [id number] 2.16.8 40.1.533482.3.579.2.462 Unknown [id number] 2.16.8 40.1.523103.3.579.2.462 Unknown [id number] 2.16.8 40.1.815009.3.579.2.462 Unknown [id number] 2.16.8 40.1.716570.3.579.2.462 Unknown [id number] 2.16.8 40.1.881128.3.579.2.462 Unknown [id number] 2.16.8 40.1.825473.3.579.2.462 Unknown [id number] 2.16.8 40.1.908016.3.579.2.462 Unknown [id number] 2.16.8 40.1.959913.3.579.2.462 Unknown [id number] 2.16.8 40.1.849932.3.579.2.462 Unknown [id number] 2.16.8 40.1.931896.3.579.2.462 Social History Date Type Detail Facility Start: 02-18-2021 End: 04-02-2023 Tobacco smoking status [facility] Unknown if ever smoked [facility] Start: 11-26-2019 None [facility] Start: 11-26-2019 Spouse/ Signif icant Other [facility] Start: 06-30-2018 Non-smoker [facility] Start: 1940 Sex Assigned At Female [facility] Start: 11-14-2014 End: 10-16-2024 Tobacco smoking status NHIS Ex-smoker [facility] End: 11-14-1994 History of tobacco use Current smoker [facility] End: 11-14-1994 History of tobacco use Cigarette Smoker [facility] Start: 11-14-2014 End: 11-14-2023 Cigarettes smoked current (pack per day) - Reported 1 [facility] Start: 02-17-2016 End: 10-28-2022 Alcohol intake Current drinker of alcohol (finding) [facility] Start: 1940 Sex Assigned At Not on file [facility] Start: 10-28-2022 End: 11-14-2023 Tobacco use panel [facility] National Score (1-100), lower number is lower risk 72 [facility] Start: 07-15-2024 End: 07-31-2024 Sex Female (finding) [facility] NEGATED: Highlighted row Not [facility] Medical Equipment Procedure Code Equipment Code Equipment Origin al Text Equipment Identifier Dates [id number] FDA Start: 11-08-2022 [id number] FDA Start: 11-08-2022 [id number] FDA Start: 11-08-2022 [id number] FDA Start: 11-08-2022 [id number] FDA Start: 11-08-2022 [id number] FDA Start: 11-08-2022 [id number] FDA Start: 11-08-2022 [id number] FDA Start: 11-08-2022 [id number] FDA Start: 11-08-2022 [id number] FDA Start: 11-08-2022 [id number] FDA Start: 11-08-2022 [id number] FDA Start: 11-08-2022 [id number] FDA Start: 11-08-2022 [id number] FDA Start: 11-08-2022 [id number] FDA Start: 11-08-2022 [id number] FDA Start: 11-08-2022 [id number] FDA Start: 11-08-2022 [id number] FDA Start: 11-08-2022 [id number] FDA Start: 11-08-2022 [id number] FDA Start: 11-08-2022 [id number] FDA Start: 11-08-2022 Goals Date Patient Goal Desired Activity /State Functional Status Date Assessment Result Facility 07-17-2024 Functional status Bathroom Privilege [facility] Work Phone: 03-25-2024 Functional status Chair [facility] Work Phone: 06-28-2023 Functional status Ambulates;Cecilio r;Bathroom Privilege [facility] Work Phone: 10-18-2022 Functional status Ambulates [facility] Work Phone: 06-15-2022 Functional status Activity Abili ty With Assist of 1 [facility] Work Phone: 06-14-2022 Functional status Ambulates;Bathroom Priv ilege [facility] Work Phone: Mental Status Date Assessment Result Facility 07-17-2024 Cognitive function Voice/Name [facility] Work Phone: 03-25-2024 Cognitive function Voice/Name [facility] Work Phone: 06-27-2023 Cognitive function Voice/Name [facility] Work Phone: 06-11-2023 Cognitive function Level Of Cons ciousness Awake;Alert;Appropriate;Follow s Commands [facility] Work Phone: 04-28-2023 Cognitive function Level Of Cons ciousness Awake;Alert [facility] Work Phone: 04-02-2023 Cognitive function Voice/Name [facility] Work Phone: 01-06-2023 Cognitive function Level Of Cons ciousness Awake;Alert;Appropriate;Follow s Commands [facility] Work Phone: 10-18-2022 Cognitive function Appropriate;Cooperativ e [facility] Work Phone: 10-17-2022 Cognitive function Voice/Name [facility] Work Phone: 10-16-2022 Cognitive function Awake;Alert;A ppropriate;Follow s Commands [facility] Work Phone: 10-12-2022 Cognitive function Awake;Alert;A ppropriate;Follow s Commands [facility] Work Phone: 09-07-2022 Cognitive function Level Of Cons ciousness Awake;Alert;Appropriate;Follow s Commands [facility] Work Phone: 06-15-2022 Cognitive function Voice/Name [facility] Work Phone: Clinical Notes 06-13-2022 to 10-16-2024 Note Date & Type Note Facility 10-16-2024 Radiology Diagnostic study note [facility] [address] [place], [place] [id number] CTA Abd/Pelvis W/WO Contrast MR#: [id number] Acct: [id number] Name: XAVIER RAHMAN Rep #: [id number] : 1940 F 84 From: Chante Allison MD PCP: Dr. Jose Hdz MD Status: REG ER Study:CTA Abd/Pelvis W/WO Contrast Date of Ex am: 10/16/24 Exam# [id number] Ordering Dr: Ketan Varghese DO PROCEDURE: CTA ABD/PELVIS W/WO CONTRAST 10/16/2024 REASON FOR EXAM: GI BLEED TECHNIQUE: CTA ABD/PELVIS W/WO CONTRAST Multiplanar Sagittal and Coronal images were obtained. 3D and or MIPS post processing was performed CONTRAST: Isovue 370 VOLUME: 98 mL One or more dose reduction techniques were used (e.g., Automated exposure control, adjustment of the mA and/or kV according to patient size, use of iterative reconstruction technique). RADIATION DOSE SUMMARY: CTDlvol: 21.4 mGy DLP: 534 mGycm COMPARISON: CTA abdomen and pelvis 07/15/2024 FINDINGS: Aorta: Slight fusiform ectasia of the infrarenal abdominal aorta measuring up to2.2 cm in diameter, unchanged. Diffuse aortic atherosclerosis without significant stenosis. Iliac Arteries: Scattered atherosclerotic plaque. No aneurysm or significant stenosis. Celiac: Moderate mixed calcified and soft plaque identified with stenosis likelygreater than 50%. SMA: Moderate mixed calcified and soft plaque identified, with stenosis likely greater than 50%. RENEE : Mild mixed calcified and soft plaque identified. Right Renal: Mild mixed calcified and soft plaque identified. Left Renal: Mild mixed calcified and soft plaque identified. Extravascular Findings: Linear scarring or atelectasis in the left lung base. The liver is hypodense. Simple cyst in the left kidney. There is extensive colonic diverticulosis, with trace hyperdensity within a diverticula near the hepatic flexure (series 2, image 67), new from prior. No significant inflammatory changes to suggest acute diverticulitis. Prior hysterectomy. Right hip arthroplasty limits evaluation of the pelvic contents. Unchanged T11 compression deformity. Unchanged anterolisthesis of L4 on L5. CT/CTA Abd/Pelvis W/WO Contrast IMPRESSION: 1. There is new focal hyperdensity within a diverticulum near the hepatic flexure, for which gastrointestinal bleeding is not excluded. Dense enteric contents could also appear similar, and absence of a noncontrast series limits their differentiation. Recommend GI consultation. 2. Extensive colonic diverticulosis, without current evidence of acute diverticulitis. 3. 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 4. 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 5. Hepatic steatosis. [place] Alert: Possible GI bleed The critical information above was relayed directly by me by telephone to Ketan Couch on 10/16/2024 at 10:33 pm with readback verification. Reading Location: [id number] CC: Dr. Ketan Couch DO; Dr. Jose Hdz MD ~ Security Installer: Signed [facility] 09-29-2024 Radiology Diagnostic study note [facility] Imaging Services [address], [place] [id number] Finger(s) Min 2 Views MR#: [id number] Acct: [id number] Name: XAVIER RAHMAN Rep #: [id number] : 1940 F 84 From: Pet amol Rivas DO PCP: Dr. Jose Hdz MD Status: REG CLI Study:Finger(s) Min 2 Views Date of Exam: 09/28/24 Exam# [id number] Ordering Dr: Abhilash Dominguez DOCKET SPECIALIST DOCKET SPECIALIST-C PROCEDURE: FINGER(S) MIN 2 VIEWS 09/28/2024 REASON FOR EXAM: SWELLING ON of the RIGHT INDEX FINGER TECHNIQUE: FINGER(S) MIN 2 VIEWS COMPARISON: None. FINDINGS: Bones: Bone mineralization is normal. No fracture or dislocation. No erosive or lytic process identified. Joints: Unremarkable. Soft tissues: Generalized soft tissue swelling. Other: RAD/Finger(s) Min 2 Views IMPRESSION: No acute osseous injury. Reading Location: [facility] CC: Abhilash ANTUNEZ McMorrow; Dr. Jose Hdz MD ~ Security Installer: Signed [facility] 07-17-2024 Consult note [facility] 07-17-2024 Discharge summary [facility] 07-17-2024 Discharge summary [facility] 07-17-2024 Note [facility] 07-16-2024 Progress note Note Date/Time July 16, 2024 4:31pm [facility] Medical Records Department [address] [place] [address] Progress Note - Hospitalist 07/16/24 1210 MR#: [id number] Acct: [id number] Name: XAVIER RAHMAN Rep #:[id number] : 1940 84 From: Brodie hdez DO PCP: Dr. Jose Hdz MD Status:ADM NICOLASA Location: [place] [address] Reason for Visit Reason for Visit: Diagnoses Acute posthemorrhagic anemia (07/15/24) Hemorrhage of anus and rectum (07/15/24) Gastrointestinal hemorrhage, unspecified (07/15/24) Subjective Subjective Saw patient at bedside this morning, daughter present. Patient was sitting backcomfortably in bed, conversing normally and in no acute distress. Denied any pain or discomfort. [place] mildly fatigued this morning but otherwise felt well. Did report feeling hungry as she has not been allowed to eat since admission. Does report having 2 bowel movements of bright blood overnight. No other new concerns this morning. Objective Data Objective Data Vital Signs: Vital Signs Temp Pulse Resp BP Pulse Ox O2 Del Method 98.9 F 58 L 18 165/73 H 96 Room Air 07/16/24 09:00 07/16/24 09:00 07/16/24 09:00 07/16/24 09:00 07/16/24 09:00 07/16/24 09:00 Oxygen Delivery Method Room Air Weight: 59.5 kg Body Mass Index (BMI) 23.2 Intake & Output: Intake and Output for Last 24 Hours 07/14/24 07/15/24 07/16/24 23:59 23:59 23:59 Intake Total 1160 / 1160 110 / 110 Balance 1160 / 1160 110 / 110 Lab / Micro Data 07/16/24 12:21 07/16/24 06:55 Labs: Laboratory Results - last 24 hr 07/15/24 15:03: WBC 7.5, RBC 4.77, Hgb 13.4, Hct 41.5, MCV 87.0, MCH 28.1, MCHC 32.3, RDW Std Deviation 42.8, RDW Coeff of Kierra 13.3, Plt Count 257, MPV 9.6, Immature Gran % (Auto) 0.300, Neut % (Auto) 70.6 H, Lymph % (Auto) 19.1, Walsh % (Auto) 8.1, Eos % (Auto) 1.1, Baso % (Auto) 0.8, Absolute Neuts (auto) 5.3, Absolute Lymphs (auto) 1.44, Nucleated RBC % 0, PT 14.3, INR 1.1, APTT 32.6, Sodium 133, Potassium 4.0, Chloride 97 L, Carbon Dioxide 23.8, Anion Gap 13, BUN14, Creatinine 0.75, Estim Creat Clear Calc 43.30 L, Est GFR (MDRD) Non-Af 78, BUN/Creatinine Ratio 19.0, Glucose 136 H, Calcium 10.1, Blood Type O POSITIVE, Antibody Screen POSITIVE H, Antibody Identification ANTI-E, Antigen Identification E ANTIGEN - NEGATIVE, Direct Antiglob Test POS w/POLYSPECIFIC H 07/15/24 15:03: Direct Antiglob Test POS w/IgG H 07/15/24 15:03: Direct Antiglob Test NEG w/COMPLEMENT, Crossmatch See Detail 07/15/24 19:39: Hgb 12.5, Hct 38.4 07/16/24 00:56: Hgb 11.4 L, Hct 34.6 L 07/16/24 06:55: WBC 5.1, RBC 4.20, Hgb 11.9 L, Hct 36.0 L, MCV 85.7, MCH 28.3, MCHC 33.1, RDW Std Deviation 41.8, RDW Coeff of Kierra 13.4, Plt Count 213, MPV 9.7, Immature Gran % (Auto) 0.200, Neut % (Auto) 65.9, Lymph % (Auto) 20.3, Walsh% (Auto) 10.0, Eos % (Auto) 2.4, Baso % (Auto) 1.2 H, Absolute Neuts (auto) 3.4,Absolute Lymphs (auto) 1.03, Nucleated RBC % 0, PT 13.9, INR 1.1, Sodium 134, Potassium 3.9, Chloride 103, Carbon Dioxide 19.5 L, Anion Gap 12, BUN 13, Creatinine 0.60 L, Estim Creat Clear Calc 43.30 L, Est GFR (MDRD) Non-Af 89, BUN/Creatinine Ratio 21.1 H, Glucose 97, Calcium 9.3 Micro: Microbiology 07/15/24 15:35 Stool Stool Occult Blood (LOIS) - Final Occult Blood Positive Radiography Diagnostic Testing: Radiology Impression Abdomen/Pelvis CTA 07/15/24 15:09 IMPRESSION: 1. Generalized atherosclerotic ectasia of the aorta with no discrete aneurysms. 2. 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 3. Colonic diverticulosis, marked. 4. Left renal cysts. 5. Status post hysterectomy. 6. Right total hip arthroplasty. 7. Severe degenerative osteoarthritis, left hip. 8. Grade 1 anterolisthesis, L4 on L5. 9. Multilevel spondylosis and degenerative disc disease. Anterior wedging of T11 vertebra. Reading Location: [facility] Physical Exam Const alert, oriented x3, no apparent distress and average body habitus Constitutional Narrative: Elderly female, pleasant and talkative, mildly fatigued appearing but otherwise sitting back comfortably in bed, conversing normally, in no acute distress. General Appearance: cooperative and comfortable HEENT normocephalic, head/scalp atraumatic, hearing grossly normal bilaterally, nasal mucous membranes and turbinates normal and moist oral mucous membranes Eyes PERRL, EOMs intact bilaterally and conjunctivae normal Neck full ROM Chest inspection of chest normal Resp normal respiratory effort, normal air movement, no use of accessory muscles and clear to auscultation bilaterally Cardio regular rate, regular rhythm, no murmurs and peripheral pulses 2+ throughout GI normal to inspection, nondistended, normoactive bowel sounds, soft to palpation,non-tender and non-distended Back/Spine normal ROM Extremity normal to inspection, full ROM and no pedal edema Skin no rashes or lesions noted Psych mental status grossly normal Assessment & Plan Assessment/Plan (1) GI bleed: (2) Anemia: PLAN: Plan Patient is an 84-year-old female who presented to [facility] ED on 07/15/2024 with bright red blood per rectum. 1. Concern for recurrent GI bleed, chronic iron deficiency anemia ? GI following. Recent history of ABLA secondary to upper GI bleed in March 2024. Presented with hemoglobin 5.7 at that time, transfused 3 units of blood with repeat hemoglobin 8.7. 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 Was discharged on p.o. PPI twice daily and a short course of sucralfate. Has been on Plavix since then but not on babyaspirin. No recurrence of bleeding until day of admission. Patient had bright red stools that prompted her to come in. CTA abdomen pelvis unremarkable. Hemoglobin 13.4 in ED, dropped to 11.4 by morning of 07/16 but was given IV fluids, and repeat hemoglobins on 07/16 are 11.9 and 12.5. Per GI, okay for dietand will follow-up hemoglobin tomorrow morning. Patient notably with no furtherbloody stools since evening of 07/15. If hemoglobin stable tomorrow morning, should be okay for discharge home with no need for repeat scope. Planning to restart only baby aspirin daily on discharge. 2. History of TIA ? On chart review, was hospitalized in 05/2022 for acute ischemic stroke in the right parietal and temporal lobes. Was put on aspirin and Plavix at that time. Had stroke rule out admissions in October and March 2023 with repeat imaging negative. Per neurology that October, appeared the patient would be okay for aspirin therapy alone. No further neurologic issues since March 2023. Will plan to restart only baby aspirin daily on this discharge and discontinue Plavix. Chronic medical conditions: ? Hypertension: Continue home amlodipine. Holding valsartan/hydrochlorothiazidefor now. ? Mild cognitive impairment: Continue home memantine. ? Restless leg syndrome: Continue home pramipexole. ? Depression/anxiety: Continue home escitalopram. ? GERD: Continue home PPI. DVT prophylaxis: SCDs CODE STATUS: DNR CCA, DNI Expected disposition: Home, 1 to 2 days Total clinical time spent by myself addressing the patient's medical issues, reviewing all the data, and collaborating with patient's care team: 35 minutes. Charges/Coding Visit Charges Inpatient E&M: 92335 Subs Hosp L2 07/16/24 1631 <Electronically signed by Brodie Swartz DO> Cosigner Signature (if applicable): CC: ~ Signed [facility] Work Phone: [phone] 413-317503-31-2025 Progress note [facility] Medical Records Department [address] [place] [address] Progress Note - Hospitalist 07/16/24 1210 MR#: [id number] Acct: [id number] Name: XAVIER RAHMAN Rep #:[id number] : 1940 84 From: Brodie hdez DO PCP: Dr. Jose Hdz MD Status:ADM NICOLASA Location: [place] [address] Reason for Visit Reason for Visit: Diagnoses Acute posthemorrhagic anemia (07/15/24) Hemorrhage of anus and rectum (07/15/24) Gastrointestinal hemorrhage, unspecified (07/15/24) Subjective Subjective Saw patient at bedside this morning, daughter present. Patient was sitting backcomfortably in bed, conversing normally and in no acute distress. Denied any pain or discomfort. [place] mildly fatigued this morning but otherwise felt well. Did report feeling hungry as she has not been allowed to eat since admission. Does report having 2 bowel movements of bright blood overnight. No other new concerns this morning. Objective Data Objective Data Vital Signs: Vital Signs Temp Pulse Resp BP Pulse Ox O2 Del Method 98.9 F 58 L 18 165/73 H 96 Room Air 07/16/24 09:00 07/16/24 09:00 07/16/24 09:00 07/16/24 09:00 07/16/24 09:00 07/16/24 09:00 Oxygen Delivery Method Room Air Weight: 59.5 kg Body Mass Index (BMI) 23.2 Intake & Output: Intake and Output for Last 24 Hours 07/14/24 07/15/24 07/16/24 23:59 23:59 23:59 Intake Total 1160 / 1160 110 / 110 Balance 1160 / 1160 110 / 110 Lab / Micro Data 07/16/24 12:21 07/16/24 06:55 Labs: Laboratory Results - last 24 hr 07/15/24 15:03: WBC 7.5, RBC 4.77, Hgb 13.4, Hct 41.5, MCV 87.0, MCH 28.1, MCHC 32.3, RDW Std Deviation 42.8, RDW Coeff of Kierra 13.3, Plt Count 257, MPV 9.6, Immature Gran % (Auto) 0.300, Neut % (Auto) 70.6 H, Lymph % (Auto) 19.1, Walsh % (Auto) 8.1, Eos % (Auto) 1.1, Baso % (Auto) 0.8, Absolute Neuts (auto) 5.3, Absolute Lymphs (auto) 1.44, Nucleated RBC % 0, PT 14.3, INR 1.1, APTT 32.6, Sodium 133, Potassium 4.0, Chloride 97 L, Carbon Dioxide 23.8, Anion Gap 13, BUN14, Creatinine 0.75, Estim Creat Clear Calc 43.30 L, Est GFR (MDRD) Non-Af 78, BUN/Creatinine Ratio 19.0, Glucose 136 H, Calcium 10.1, Blood Type O POSITIVE, Antibody Screen POSITIVE H, Antibody Identification ANTI-E, Antigen Identification E ANTIGEN - NEGATIVE, Direct Antiglob Test POS w/POLYSPECIFIC H 07/15/24 15:03: Direct Antiglob Test POS w/IgG H 07/15/24 15:03: Direct Antiglob Test NEG w/COMPLEMENT, Crossmatch See Detail 07/15/24 19:39: Hgb 12.5, Hct 38.4 07/16/24 00:56: Hgb 11.4 L, Hct 34.6 L 07/16/24 06:55: WBC 5.1, RBC 4.20, Hgb 11.9 L, Hct 36.0 L, MCV 85.7, MCH 28.3, MCHC 33.1, RDW Std Deviation 41.8, RDW Coeff of Kierra 13.4, Plt Count 213, MPV 9.7, Immature Gran % (Auto) 0.200, Neut % (Auto) 65.9, Lymph % (Auto) 20.3, Walsh% (Auto) 10.0, Eos % (Auto) 2.4, Baso % (Auto) 1.2 H, Absolute Neuts (auto) 3.4,Absolute Lymphs (auto) 1.03, Nucleated RBC % 0, PT 13.9, INR 1.1, Sodium 134, Potassium 3.9, Chloride 103, Carbon Dioxide 19.5 L, Anion Gap 12, BUN 13, Creatinine 0.60 L, Estim Creat Clear Calc 43.30 L, Est GFR (MDRD) Non-Af 89, BUN/Creatinine Ratio 21.1 H, Glucose 97, Calcium 9.3 Micro: Microbiology 07/15/24 15:35 Stool Stool Occult Blood (LOIS) - Final Occult Blood Positive Radiography Diagnostic Testing: Radiology Impression Abdomen/Pelvis CTA 07/15/24 15:09 IMPRESSION: 1. Generalized atherosclerotic ectasia of the aorta with no discrete aneurysms. 2. 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 3. Colonic diverticulosis, marked. 4. Left renal cysts. 5. Status post hysterectomy. 6. Right total hip arthroplasty. 7. Severe degenerative osteoarthritis, left hip. 8. Grade 1 anterolisthesis, L4 on L5. 9. Multilevel spondylosis and degenerative disc disease. Anterior wedging of T11 vertebra. Reading Location: [facility] Physical Exam Const alert, oriented x3, no apparent distress and average body habitus Constitutional Narrative: Elderly female, pleasant and talkative, mildly fatigued appearing but otherwise sitting back comfortably in bed, conversing normally, in no acute distress. General Appearance: cooperative and comfortable HEENT normocephalic, head/scalp atraumatic, hearing grossly normal bilaterally, nasal mucous membranes and turbinates normal and moist oral mucous membranes Eyes PERRL, EOMs intact bilaterally and conjunctivae normal Neck full ROM Chest inspection of chest normal Resp normal respiratory effort, normal air movement, no use of accessory muscles and clear to auscultation bilaterally Cardio regular rate, regular rhythm, no murmurs and peripheral pulses 2+ throughout GI normal to inspection, nondistended, normoactive bowel sounds, soft to palpation,non-tender and non-distended Back/Spine normal ROM Extremity normal to inspection, full ROM and no pedal edema Skin no rashes or lesions noted Psych mental status grossly normal Assessment & Plan Assessment/Plan (1) GI bleed: (2) Anemia: PLAN: Plan Patient is an 84-year-old female who presented to [facility] ED on 07/15/2024 with bright red blood per rectum. 1. Concern for recurrent GI bleed, chronic iron deficiency anemia ? GI following. Recent history of ABLA secondary to upper GI bleed in March 2024. Presented withhemoglobin 5.7 at that time, transfused 3 units of blood with repeat hemoglobin 8.7. 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 Was discharged on p.o. PPItwice daily and a short course of sucralfate. Has been on Plavix since then but not on babyaspirin.No recurrence of bleeding until day of admission. Patient had bright red stools that prompted her to come in. CTA abdomen pelvis unremarkable. Hemoglobin 13.4 in ED, dropped to 11.4 by morning of 07/16 but was given IV fluids, and repeat hemoglobins on 07/16 are 11.9 and 12.5. Per GI, okay for dietand will follow-up hemoglobin tomorrow morning. Patient notably with no furtherbloody stools since evening of 07/15. If hemoglobin stable tomorrow morning, should be okay for discharge home with no need for repeat scope. Planning to restart only baby aspirin daily on discharge. 2. History of TIA ? On chart review, was hospitalized in 05/2022 for acute ischemic stroke in the right parietal and temporal lobes. Was put on aspirin and Plavix at that time. Had stroke rule out admissions in October and March 2023 with repeat imaging negative. Per neurology that October, appeared the patient would beokay for aspirin therapy alone. No further neurologic issues since March 2023. Will plan to restart only baby aspirin daily on this discharge and discontinue Plavix. Chronic medical conditions: ? Hypertension: Continue home amlodipine. Holding valsartan/hydrochlorothiazidefor now. ? Mild cognitive impairment: Continue home memantine. ? Restless leg syndrome: Continue home pramipexole. ? Depression/anxiety: Continue home escitalopram. ? GERD: Continue home PPI. DVT prophylaxis: SCDs CODE STATUS: DNR CCA, DNI Expected disposition: Home, 1 to 2 days Total clinical time spent by myself addressing the patient's medical issues, reviewing all the data, and collaborating with patient's care team: 35 minutes. Charges/Coding Visit Charges Inpatient E&M: 02095 Subs Hosp L2 07/16/24 1631 Cosigner Signature (if applicable): CC: ~ Signed [facility]03-31-2025 Consult note Author Brad Friend [facility] Note Date/Time July 16, 2024 8:[address] [facility] Medical Records Department [address] [place] [address] Consultation - GI 07/16/24 0845 MR#: [id number] Acct: [id number] Name: XAVIER RAHMAN Rep #:[id number] : 1940 84 From: Brad Winslow DO PCP: Dr. Jose Hdz MD Status:ADM NICOLASA Location: [place] [address] HPI Consult Data Date of Consult: 07/16/24 HPI Narrative Reason for Consultation: GI bleeding HPI Narrative: XAVIER RAHMAN, is a 84 F who presents with bright red blood per rectum x 2 episodes after judaism today. She does have some abdominal tenderness. Records note she is on aspirin and Plavix however she states she does not currently takethese medications. She denies lightheaded symptoms. She does have a history ofsimilar in the past. She has had colonoscopies in the past however states she does not want any additional colonoscopies. She spoke with her son-in-law who she states physician after first episode states if it reoccurs to go to the emergency department. Last similar event a few months ago per patient. After further discussion with the patient and nursing noted she had her last fill clopidogrel this past April she states she is all on this however she does not take her baby aspirin. I saw her for the first normal consultation back on 03/21/2024 with weakness and dark stools. 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 Hemoglobin 5.7 on admit on 03/21, down from hemoglobin 12.3 on 03/18. Transfused 3 units of blood total with repeat hemoglobin 8.7. Hemoglobin remained stable and patient with no recurrence of dark or bloody stools. Continue p.o. PPI twice daily and sucralfate. She was later restarted back on aspirin and Plavix. [facility] Medical History GI bleed History of COPD Head injury Laceration of head Inability to ambulate due to knee ZONIA (obstructive sleep apnea) Essential hypertension History of dementia History of CVA in adulthood Recurrent episodes of unresponsiveness TIA (transient ischemic attack) Confusion COPD (chronic obstructive pulmonary disease) Alzheimer's dementia History of GI bleed GERD (gastroesophageal reflux disease) Anxiety and depression COVID-19 Hypertensive emergency without congestive heart failure DCIS (ductal carcinoma in situ) of breast Vitamin D deficiency Hypercholesterolemia Arthritis Ductal carcinoma in situ (DCIS) of right breast Fall Hypothyroidism Home Medications ?Medication ?Instructions ?Recorded ?Last Taken ?Type clopidogrel 75 mg tablet 75 mg PO DAILY #30 tabs 05/2007/15/24 Rx pramipexole 1.5 mg tablet 1.5 mg PO DAILY 10/16/22 History valsartan 320 1 tab PO DAILY 10/16/2206/17 History mg-hydrochlorothiazide 25 mg tablet memantine 10 mg tablet 10 mg PO DAILY 04/28/2306/18 History amlodipine 5 mg tablet 5 mg PO DAILY 06/11/2307/14 History pantoprazole 40 mg tablet,delayed 40 mg PO BID 30 days #60 tabs 03/25/24 07/15/24 Rx release diphenhydramine 25 1 tab PO QHS PRN sleep 07/1507/14/24 History mg-acetaminophen 500 mg tablet (Acetaminophen PM) escitalopram oxalate 5 mg tablet 5 mg PO QPM 07/15/24 07/14/24 History potassium chloride 10 mEq 20 meq PO BID 07/15/2407/15 History tablet,extended release Allergy/AdvReac Type Severity Reaction Status Date / Time lisinopril Allergy Mild cough Verified 07/15/24 14:56 alendronate sodium (From Allergy Unknown unknown Verified 07/15/24 14:56 Fosamax) Sulfa (Sulfonamide Allergy Rash Verified 07/15/24 14:56 Antibiotics) atorvastatin (From Lipitor) AdvReac Mild muscle Verified 07/15/24 14:56 aches rosuvastatin (From Crestor) AdvReac Mild muscle Verified 07/15/24 14:56 aches codeine AdvReac Nausea Verified 07/15/24 14:56 NSAIDS (Non-Steroidal AdvReac Bleeding Verified 07/15/24 14:56 Anti-Inflamma Family History Mother Heart disease CVA (cerebral vascular accident) Father Heart disease Surgical History Status post placement of implantable loop recorder (11/08/22) History of right hip replacement History of left mastoidectomy History of lumpectomy of right breast History of thyroid surgery History of hysterectomy Social History household members: spouse Smoking Status: Former smoker how long ago did patient quit smoking: Quit ~ 24-25 years prior. alcohol intake: current alcohol intake frequency: a few times a month details: 1 drink/[place] nightly. substance use type: other details: Given THC chew per her family for sleep but prior no substance use. ROS Constitutional Constitutional: Denies fatigue, fever(s), poor appetite, weight gain or weight loss Gastrointestinal Gastrointestinal: Denies belching, bloating, change in bowel habits, change in stool character, chewing difficulty, coffee ground emesis, constipation, cramping, diarrhea, dyspepsia, dysphagia, early satiety, excessive flatus, fecalincontinence, heartburn, hematemesis, hematochezia, hemorrhoids, loose stools, melena, nausea, odynophagia, rectal bleeding, tenesmus, vomiting or weight changes Physical Exam Narrative General: Alert, oriented, no apparent distress HEENT: Atraumatic, normocephalic Eyes: Anicteric, normal conjunctiva, extraocular movements grossly intact Neck: Supple Respiratory: Clear to auscultation bilaterally, normal respiratory effort Cardiovascular: Regular rate and rhythm GI: Soft, nontender, nondistended Extremities: No edema Musculoskeletal: Moving all extremities Neuro: No overt focal neurological deficits Skin: No rashes appreciated Psych: Cooperative Lab / Micro Data 07/16/24 06:55 07/16/24 06:55 Labs: Laboratory Results - last 24 hr 07/15/24 15:03: WBC 7.5, RBC 4.77, Hgb 13.4, Hct 41.5, MCV 87.0, MCH 28.1, MCHC 32.3, RDW Std Deviation 42.8, RDW Coeff of Kierra 13.3, Plt Count 257, MPV 9.6, Immature Gran % (Auto) 0.300, Neut % (Auto) 70.6 H, Lymph % (Auto) 19.1, Walsh % (Auto) 8.1, Eos % (Auto) 1.1, Baso % (Auto) 0.8, Absolute Neuts (auto) 5.3, Absolute Lymphs (auto) 1.44, Nucleated RBC % 0, PT 14.3, INR 1.1, APTT 32.6, Sodium 133, Potassium 4.0, Chloride 97 L, Carbon Dioxide 23.8, Anion Gap 13, BUN14, Creatinine 0.75, Estim Creat Clear Calc 43.30 L, Est GFR (MDRD) Non-Af 78, BUN/Creatinine Ratio 19.0, Glucose 136 H, Calcium 10.1, Blood Type O POSITIVE, Antibody Screen POSITIVE H, Antibody Identification ANTI-E, Antigen Identification E ANTIGEN - NEGATIVE, Direct Antiglob Test POS w/POLYSPECIFIC H 07/15/24 15:03: Direct Antiglob Test POS w/IgG H 07/15/24 15:03: Direct Antiglob Test NEG w/COMPLEMENT, Crossmatch See Detail 07/15/24 19:39: Hgb 12.5, Hct 38.4 07/16/24 00:56: Hgb 11.4 L, Hct 34.6 L 07/16/24 06:55: WBC 5.1, RBC 4.20, Hgb 11.9 L, Hct 36.0 L, MCV 85.7, MCH 28.3, MCHC 33.1, RDW Std Deviation 41.8, RDW Coeff of Kierra 13.4, Plt Count 213, MPV 9.7, Immature Gran % (Auto) 0.200, Neut % (Auto) 65.9, Lymph % (Auto) 20.3, Walsh% (Auto) 10.0, Eos % (Auto) 2.4, Baso % (Auto) 1.2 H, Absolute Neuts (auto) 3.4,Absolute Lymphs (auto) 1.03, Nucleated RBC % 0, PT 13.9, INR 1.1, Sodium 134, Potassium 3.9, Chloride 103, Carbon Dioxide 19.5 L, Anion Gap 12, BUN 13, Creatinine 0.60 L, Estim Creat Clear Calc 43.30 L, Est GFR (MDRD) Non-Af 89, BUN/Creatinine Ratio 21.1 H, Glucose 97, Calcium 9.3 Micro: Microbiology 07/15/24 15:35 Stool Stool Occult Blood (LOIS) - Final Occult Blood Positive Imaging Radiology Impression Abdomen/Pelvis CTA 07/15/24 15:09 IMPRESSION: 1. Generalized atherosclerotic ectasia of the aorta with no discrete aneurysms. 2. 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 3. Colonic diverticulosis, marked. 4. Left renal cysts. 5. Status post hysterectomy. 6. Right total hip arthroplasty. 7. Severe degenerative osteoarthritis, left hip. 8. Grade 1 anterolisthesis, L4 on L5. 9. Multilevel spondylosis and degenerative disc disease. Anterior wedging of T11 vertebra. Reading Location: [facility] Assessment & Plan Assessment/Plan (1) GI (gastrointestinal bleed): (2) Acute blood loss anemia: PLAN: Plan Patient is an 84-year-old female who presented [facility] ED on 07/15/2024 with weakness and dark stools. Acute blood loss anemia with lower GI bleed this was bright red blood per rectumand currently has melena secondary to GI bleed ? 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 Hemoglobin 5.7 on admit on 03/21, down from hemoglobin 12.3 on 03/18. Transfused 3 units of blood total with repeat hemoglobin 8.7. Hemoglobin remaining stable. She completed PPI twice daily andsucralfate. . On this admission her hemoglobin was 13.4 as an outpatient and isdown to 11.4. However her repeat was back up to 11.6. The differential diagnosis for hematochezia in the setting of a little bit of abdominal pain is ischemic colitis, diverticulosis, upper GI bleed with rapid transit. Her hemoglobin seems to be stabilizing off of aspirin and Plavix. I will give her aliquid diet. We will repeat her hemoglobin to make sure it is stable. If it does continue to be stable we will plan it is possible she may not need repeat endoscopy as the patient does not want to undergo any endoscopic procedures. Charges/Coding Visit Charges Inpatient E&M: 22274 Init Hosp L3 07/16/24 0852 <Electronically signed by Brad Winslow DO> Cosigner Signature (if applicable): CC: Dr. Jose Hdz MD~ Signed [facility] Work Phone: 1(277) 581-612003-31-[address] [facility] Medical Records Department [address] [place] [address] Consultation - GI 07/16/24 0845 MR#: [id number] Acct: [id number] Name: XAVIER RAHMAN Rep #:[id number] : 1940 84 From: Brad Winslow DO PCP: Dr. Jose Hdz MD Status:ADM NICOLASA Location: [place] [address] HPI Consult Data Date of Consult: 07/16/24 HPI Narrative Reason for Consultation: GI bleeding HPI Narrative: XAVIER RAHMAN, is a 84 F who presents with bright red blood per rectum x 2 episodes after judaism today. She does have some abdominal tenderness. Records note she is on aspirin and Plavix however she states she does not currently takethese medications. She denies lightheaded symptoms. She does have a history ofsimilar in the past. She has had colonoscopies in the past however states she does not want any additional colonoscopies. She spoke with her son-in-law who she states physician after first episode states if it reoccurs to go to the emergency department. Last similar event a few months ago per patient. After further discussion with the patient and nursing noted she had her last fill clopidogrel this past April she states she is all on this however she does not take her baby aspirin. I saw her for the first normal consultation back on 03/21/2024 with weakness and dark stools. 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 Hemoglobin 5.7 on admit on 03/21, down from hemoglobin 12.3 on 03/18. Transfused 3 unitsof blood total with repeat hemoglobin 8.7. Hemoglobin remained stable and patient with no recurrence of dark or bloody stools. Continue p.o. PPI twice daily and sucralfate. She was later restarted back on aspirin and Plavix. [facility] Medical History GI bleed History of COPD Head injury Laceration of head Inability to ambulate due to knee ZONIA (obstructive sleep apnea) Essential hypertension History of dementia History of CVA in adulthood Recurrent episodes of unresponsiveness TIA (transient ischemic attack) Confusion COPD (chronic obstructive pulmonary disease) Alzheimer's dementia History of GI bleed GERD (gastroesophageal reflux disease) Anxiety and depression COVID-19 Hypertensive emergency without congestive heart failure DCIS (ductal carcinoma in situ) of breast Vitamin D deficiency Hypercholesterolemia Arthritis Ductal carcinoma in situ (DCIS) of right breast Fall Hypothyroidism Home Medications ?Medication ?Instructions ?Recorded ?Last Taken ?Type clopidogrel 75 mg tablet 75 mg PO DAILY #30 tabs 05/2007/15/24 Rx pramipexole 1.5 mg tablet 1.5 mg PO DAILY 10/16/22 History valsartan 320 1 tab PO DAILY 10/16/2206/17 History mg-hydrochlorothiazide 25 mg tablet memantine 10 mg tablet 10 mg PO DAILY 04/28/2306/18 History amlodipine 5 mg tablet 5 mg PO DAILY 06/11/2307/14 History pantoprazole 40 mg tablet,delayed 40 mg PO BID 30 days #60 tabs 03/25/24 07/15/24 Rx release diphenhydramine 25 1 tab PO QHS PRN sleep 07/1507/14/24 History mg-acetaminophen 500 mg tablet (Acetaminophen PM) escitalopram oxalate 5 mg tablet 5 mg PO QPM 07/15/24 07/14/24 History potassium chloride 10 mEq 20 meq PO BID 07/15/2407/15 History tablet,extended release Allergy/AdvReac Type Severity Reaction Status Date / Time lisinopril Allergy Mild cough Verified 07/15/24 14:56 alendronate sodium (From Allergy Unknown unknown Verified 07/15/24 14:56 Fosamax) Sulfa (Sulfonamide Allergy Rash Verified 07/15/24 14:56 Antibiotics) atorvastatin (From Lipitor) AdvReac Mild muscle Verified 07/15/24 14:56 aches rosuvastatin (From Crestor) AdvReac Mild muscle Verified 07/15/24 14:56 aches codeine AdvReac Nausea Verified 07/15/24 14:56 NSAIDS (Non-Steroidal AdvReac Bleeding Verified 07/15/24 14:56 Anti-Inflamma Family History Mother Heart disease CVA (cerebral vascular accident) Father Heart disease Surgical History Status post placement of implantable loop recorder (11/08/22) History of right hip replacement History of left mastoidectomy History of lumpectomy of right breast History of thyroid surgery History of hysterectomy Social History household members: spouse Smoking Status: Former smoker how long ago did patient quit smoking: Quit ~ 24-25 years prior. alcohol intake: current alcohol intake frequency: a few times a month details: 1 drink/[place] nightly. substance use type: other details: Given THC chew per her family for sleep but prior no substance use. ROS Constitutional Constitutional: Denies fatigue, fever(s), poor appetite, weight gain or weight loss Gastrointestinal Gastrointestinal: Denies belching, bloating, change in bowel habits, change in stool character, chewing difficulty, coffee ground emesis, constipation, cramping, diarrhea, dyspepsia, dysphagia, earlysatiety, excessive flatus, fecalincontinence, heartburn, hematemesis, hematochezia, hemorrhoids, loose stools, melena, nausea, odynophagia, rectal bleeding, tenesmus, vomiting or weight changes Physical Exam Narrative General: Alert, oriented, no apparent distress HEENT: Atraumatic, normocephalic Eyes: Anicteric, normal conjunctiva, extraocular movements grossly intact Neck: Supple Respiratory: Clear to auscultation bilaterally, normal respiratory effort Cardiovascular: Regular rate and rhythm GI: Soft, nontender, nondistended Extremities: No edema Musculoskeletal: Moving all extremities Neuro: No overt focal neurological deficits Skin: No rashes appreciated Psych: Cooperative Lab / Micro Data 07/16/24 06:55 07/16/24 06:55 Labs: Laboratory Results - last 24 hr 07/15/24 15:03: WBC 7.5, RBC 4.77, Hgb 13.4, Hct 41.5, MCV 87.0, MCH 28.1, MCHC 32.3, RDW Std Deviation 42.8, RDW Coeff of Kierra 13.3, Plt Count 257, MPV 9.6, Immature Gran % (Auto) 0.300, Neut % (Auto) 70.6 H, Lymph % (Auto) 19.1, Walsh % (Auto) 8.1, Eos % (Auto) 1.1, Baso % (Auto) 0.8, Absolute Neuts (auto) 5.3, Absolute Lymphs (auto) 1.44, Nucleated RBC % 0, PT 14.3, INR 1.1, APTT 32.6, Sodium 133, Potassium 4.0, Chloride 97 L, Carbon Dioxide 23.8, Anion Gap 13, BUN14, Creatinine 0.75, Estim Creat Clear Calc 43.30 L, Est GFR (MDRD) Non-Af 78, BUN/Creatinine Ratio 19.0, Glucose 136 H, Calcium 10.1, Blood Type O POSITIVE, Antibody Screen POSITIVE H, Antibody Identification ANTI-E, Antigen Identification E ANTIGEN - NEGATIVE, Direct Antiglob Test POS w/POLYSPECIFIC H 07/15/24 15:03: Direct Antiglob Test POS w/IgG H 07/15/24 15:03: Direct Antiglob Test NEG w/COMPLEMENT, Crossmatch See Detail 07/15/24 19:39: Hgb 12.5, Hct 38.4 07/16/24 00:56: Hgb 11.4 L, Hct 34.6 L 07/16/24 06:55: WBC 5.1, RBC 4.20, Hgb 11.9 L, Hct 36.0 L, MCV 85.7, MCH 28.3, MCHC 33.1, RDW Std Deviation 41.8, RDW Coeff of Kierra 13.4, Plt Count 213, MPV 9.7, Immature Gran % (Auto) 0.200, Neut % (Auto) 65.9, Lymph % (Auto) 20.3, Walsh% (Auto) 10.0, Eos % (Auto) 2.4, Baso % (Auto) 1.2 H, Absolute Neuts (auto) 3.4,Absolute Lymphs (auto) 1.03, Nucleated RBC % 0, PT 13.9, INR 1.1, Sodium 134, Potassium 3.9, Chloride 103, Carbon Dioxide 19.5 L, Anion Gap 12, BUN 13, Creatinine 0.60 L, Estim Creat Clear Calc 43.30 L, Est GFR (MDRD) Non-Af 89, BUN/Creatinine Ratio 21.1 H, Glucose 97, Calcium 9.3 Micro: Microbiology 07/15/24 15:35 Stool Stool Occult Blood (LOIS) - Final Occult Blood Positive Imaging Radiology Impression Abdomen/Pelvis CTA 07/15/24 15:09 IMPRESSION: 1. Generalized atherosclerotic ectasia of the aorta with no discrete aneurysms. 2. 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 3. Colonic diverticulosis, marked. 4. Left renal cysts. 5. Status post hysterectomy. 6. Right total hip arthroplasty. 7. Severe degenerative osteoarthritis, left hip. 8. Grade 1 anterolisthesis, L4 on L5. 9. Multilevel spondylosis and degenerative disc disease. Anterior wedging of T11 vertebra. Reading Location: [facility] Assessment & Plan Assessment/Plan (1) GI (gastrointestinal bleed): (2) Acute blood loss anemia: PLAN: Plan Patient is an 84-year-old female who presented [facility] ED on 07/15/2024 with weakness and dark stools. Acute blood loss anemia with lower GI bleed this was bright red blood per rectumand currently has melena secondary to GI bleed ? 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 Hemoglobin 5.7 on admit on 03/21, down from hemoglobin 12.3 on 03/18. Transfused 3 units of blood total with repeat hemoglobin 8.7. Hemoglobin remaining stable. She completed PPI twice daily an dsucralfate. . On this admission her hemoglobin was 13.4 as an outpatient and isdown to 11.4. However her repeat was back up to 11.6. The differential diagnosis for hematochezia in the setting of a little bit of abdominal pain is ischemic colitis, diverticulosis, upper GI bleed with rapid transit. Her hemoglobin seems to be stabilizing off of aspirin and Plavix. I will give her aliquid diet. We will repeat her hemoglobin to make sure it is stable. If it does continue to be stable we will plan it is possible she may not need repeat endoscopy as the patient does not want to undergo any endoscopic procedures. Charges/Coding Visit Charges Inpatient E&M: 92700 Init Hosp L3 07/16/24 0852 Cosigner Signature (if applicable): CC: Dr. Jose Hdz MD~ Signed [facility]03-31-2025 Discharge summary Author Ta Soto [facility] Note Date/Time July 15, 2024 11: 05pm [facility] Medical Records Department [address] [place] [address] Emergency Department Summary 07/15/24 MR#: [id number] Acct: [id number] Name: XAVIER RAHMAN Rep #:[id number] : 1940 84 From: Ta Raygoza PCP: Dr. Jose Hdz MD Status:ADM NICOLASA Location: [place] [address] HPI HPI - GI History of Present Illness Chief Complaint: GI Bleed Informant: patient Narrative Narrative: Bright red blood per rectum x 2 episodes after judaism today. States liquid. Noclots. No abdominal pain. Records note she is on aspirin and Plavix however she states she does not currently take these medications. Denies lightheaded symptoms. History of similar in the past. She has had colonoscopies in the past however states she does not want any additional colonoscopies. She spoke with her son-in-law who she states physician after first episode states if it reoccurs to go to the emergency department. Last similar event a few months agoper patient. After further discussion with the patient and nursing noted she had her last fill clopidogrel this past April she states she is all on this however she does not take her baby aspirin. Prior similar symptoms: Yes PFSH PFSH Medical History GI bleed History of COPD Head injury Laceration of head Inability to ambulate due to knee ZONIA (obstructive sleep apnea) Essential hypertension History of dementia History of CVA in adulthood Recurrent episodes of unresponsiveness TIA (transient ischemic attack) Confusion COPD (chronic obstructive pulmonary disease) Alzheimer's dementia History of GI bleed GERD (gastroesophageal reflux disease) Anxiety and depression COVID-19 Hypertensive emergency without congestive heart failure DCIS (ductal carcinoma in situ) of breast Vitamin D deficiency Hypercholesterolemia Arthritis Ductal carcinoma in situ (DCIS) of right breast Fall Hypothyroidism Home Medications ?Medication ?Instructions ?Recorded ?Last Taken ?Type clopidogrel 75 mg tablet 75 mg PO DAILY #30 tabs 05/2007/15/24 Rx pramipexole 1.5 mg tablet 1.5 mg PO DAILY 10/16/22 History valsartan 320 1 tab PO DAILY 10/16/2206/17 History mg-hydrochlorothiazide 25 mg tablet memantine 10 mg tablet 10 mg PO DAILY 04/28/2306/18 History amlodipine 5 mg tablet 5 mg PO DAILY 06/11/2307/14 History pantoprazole 40 mg tablet,delayed 40 mg PO BID 30 days #60 tabs 03/25/24 07/15/24 Rx release diphenhydramine 25 1 tab PO QHS PRN sleep 07/1507/14/24 History mg-acetaminophen 500 mg tablet (Acetaminophen PM) escitalopram oxalate 5 mg tablet 5 mg PO QPM 07/15/24 07/14/24 History potassium chloride 10 mEq 20 meq PO BID 07/15/2407/15 History tablet,extended release Allergy/AdvReac Type Severity Reaction Status Date / Time lisinopril Allergy Mild cough Verified 07/15/24 14:56 alendronate sodium (From Allergy Unknown unknown Verified 07/15/24 14:56 Fosamax) Sulfa (Sulfonamide Allergy Rash Verified 07/15/24 14:56 Antibiotics) atorvastatin (From Lipitor) AdvReac Mild muscle Verified 07/15/24 14:56 aches rosuvastatin (From Crestor) AdvReac Mild muscle Verified 07/15/24 14:56 aches codeine AdvReac Nausea Verified 07/15/24 14:56 NSAIDS (Non-Steroidal AdvReac Bleeding Verified 07/15/24 14:56 Anti-Inflamma Family History Mother Heart disease CVA (cerebral vascular accident) Father Heart disease Surgical History Status post placement of implantable loop recorder (11/08/22) History of right hip replacement History of left mastoidectomy History of lumpectomy of right breast History of thyroid surgery History of hysterectomy Social History household members: spouse Smoking Status: Former smoker how long ago did patient quit smoking: Quit ~ 24-25 years prior. alcohol intake: current alcohol intake frequency: a few times a month details: 1 drink/[place] nightly. substance use type: other details: Given THC chew per her family for sleep but prior no substance use. ROS ROS ED Constitutional Constitutional ED: Denies chills, fever(s) or sweats ENT ENT ED: Denies sore throat Cardiovascular Cardiovascular: Denies chest pain, leg edema, palpitations or racing heartbeat Respiratory/Chest Respiratory/Chest: Denies cough, dyspnea or dyspnea on exertion Gastrointestinal Gastrointestinal: Reports other Details: Bright red blood per rectum ; Denies abdominal pain, diarrhea, nausea or vomiting Genitourinary Genitourinary ED: Denies dysuria, hematuria or urinary frequency Musculoskeletal Musculoskeletal: Denies back pain, extremity pain or neck pain Integumentary Denies rash or wounds Neurologic Neurologic: Denies headache(s), paresthesias or weakness EXAM Physical Exam Const Vital Signs: 07/15/24 14:54 07/15/24 15:58 07/15/24 16:00 Temperature 97.4 F L Temperature Source Temporal Pulse Rate 98 68 Respiratory Rate 20 H 19 H 20 H Blood Pressure 165/118 H 174/69 H Blood Pressure Mean 133 104 Pulse Ox 99 96 98 Oxygen Delivery Method Room Air Room Air 07/15/24 16:15 07/15/24 16:32 07/15/24 16:45 Temperature Temperature Source Pulse Rate 68 77 59 L Respiratory Rate 15 13 21 H Blood Pressure Blood Pressure Mean Pulse Ox 96 94 96 Oxygen Delivery Method 07/15/24 17:00 07/15/24 17:00 07/15/24 17:15 Temperature 98.2 F Temperature Source Pulse Rate 67 61 67 Respiratory Rate 22 H 21 H 22 H Blood Pressure 174/89 H 194/71 H 179/89 H Blood Pressure Mean 117 104 116 Pulse Ox 95 94 95 Oxygen Delivery Method Room Air Room Air Positive well nourished and well developed General Appearance ED: well developed and NAD HEENT Reports moist mucous membranes normocephalic and atraumatic Eyes General Eye ED: Yes normal appearance of both eyes; Negative for pale conjunctiva Neck full ROM Chest Wall Chest: Negative for tenderness Resp normal respiratory effort and normal air movement Effort and Inspection: symmetric chest movement; Negative for respiratory distress Cardio regular rate, regular rhythm and no murmurs Peripheral Pulses: pulses 2+ throughout GI normal to inspection, nondistended, normoactive bowel sounds and non-tender GI Narrative: Nursing blueprint maker for rectal exam, no external hemorrhoids noted, no fissures, digital rectal exam with red blood on finger. No masses palpated. Palpation: Negative for guarding or rebound tenderness present Extremity normal to inspection General Extremety ED: Negative for edema or tenderness General Extremity: Negative for edema Neuro oriented x3 and no sensory deficits noted Sensorium / Orientation: awake and alert Skin no rashes or lesions noted and no wounds MDM MDM MDM Narrative Medical decision making narrative: Interventions / MDM: Differential diagnosis: Lower GI bleed, diverticulosis Diagnosis considered but do not suspect: N/A My EKG interpretation: N/A Imaging independently reviewed and interpreted by myself: CT angiogram abdomen pelvis severe diverticular disease, left renal cyst, 50% narrowing of celiac andSMA artery. 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 She wasgiven 3 units of blood at that time for hemoglobin 5.7. Test considered but not ordered:N/A ED course: Vital stable and nontender abdomen. No clinical anemia. Will check labs coags, CT angiogram abdomen pelvis for further evaluation. 1550: Hemoglobin trend 13.4. [place] score 10. 1730: Reevaluation vital stable patient states she had additional bloody bowel movement while in the department. Discussed with her risk factors and open score, shared decision discussed with the patient. She lives alone. She had required 3 units of blood little over 3 months ago. Hemoglobin stable currently. Will discuss with hospitalist for observations for monitoring. 1741: I discussed with Dr. Mojica for admission to the medical floor for furthermonitoring. Re-evaluation: stable Disposition discussed with patient/family/significant other: Patient and daughter Case discussed with consulting clinician: Hospitalist This note was generated with Health: Elt dictation software. It may contain incorrectwords, spelling, and punctuation that were not noted in checking the note beforesigning. Lab Data Attestation: I reviewed the patient's lab results. Labs: Laboratory Results - last 24 hr 07/15/24 07/15/24 07/15/24 15:03 15:03 15:03 WBC 7.5 RBC 4.77 Hgb 13.4 Hct 41.5 MCV 87.0 MCH 28.1 MCHC 32.3 RDW Std Deviation 42.8 RDW Coeff of Kierra 13.3 Plt Count 257 MPV 9.6 Immature Gran % (Auto) 0.300 Neut % (Auto) 70.6 H Lymph % (Auto) 19.1 Walsh % (Auto) 8.1 Eos % (Auto) 1.1 Baso % (Auto) 0.8 Absolute Neuts (auto) 5.3 Absolute Lymphs (auto) 1.44 Nucleated RBC % 0 PT 14.3 INR 1.1 APTT 32.6 Sodium 133 Potassium 4.0 Chloride 97 L Carbon Dioxide 23.8 Anion Gap 13 BUN 14 Creatinine 0.75 Estim Creat Clear Calc 43.30 L Est GFR (MDRD) Non-Af 78 BUN/Creatinine Ratio 19.0 Glucose 136 H Calcium 10.1 Blood Type O POSITIVE Antibody Screen POSITIVE H Antibody Identification ANTI-E Antigen Identification E ANTIGEN - NEGATIVE Direct Antiglob Test POS w/POLYSPECIFIC H POS w/IgG H NEG w/COMPLEMENT Crossmatch See Detail Radiography Diagnostic Testing: Clinical Impression(s) from Imaging Studies Abdomen/Pelvis CTA 07/15/24 15:09 IMPRESSION: 1. Generalized atherosclerotic ectasia of the aorta with no discrete aneurysms. 2. 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 3. Colonic diverticulosis, marked. 4. Left renal cysts. 5. Status post hysterectomy. 6. Right total hip arthroplasty. 7. Severe degenerative osteoarthritis, left hip. 8. Grade 1 anterolisthesis, L4 on L5. 9. Multilevel spondylosis and degenerative disc disease. Anterior wedging of T11 vertebra. Reading Location: [facility] Discharge Plan Dx/Rx/DC Orders Clinical Impression: GI bleed, Diverticular disease Disposition Disposition: Acute Care Hospital [facility] Discharge Date/Time: 07/15/24 18:46 What to do if you have Problems For any increased pain, shortness of breath, bleeding, nausea or vomiting, chestpain, or any unexpected problems, contact your Primary Care Provider. Call [facility] ([phone]) or report to the closest Emergency Room. Call 911 if necessary. 07/15/24 2305 <Electronically signed by Ta Raygoza> Cosigner Signature (if applicable): CC: Dr. Jose Hdz MD ~ Signed [facility] Work Phone: 1(484) 917-671303-30-[address] [facility] Medical Records Department [address] [place] [address] Emergency Department Summary 07/15/24 MR#: [id number] Acct: [id number] Name: XAVIER RAHMAN Rep #:[id number] : 1940 84 From: Ta Raygoza PCP: Dr. Jose Hdz MD Status:ADM NICOLASA Location: [place] [id number] HPI HPI - GI History of Present Illness Chief Complaint: GI Bleed Informant: patient Narrative Narrative: Bright red blood per rectum x 2 episodes after judaism today. States liquid. Noclots. No abdominal pain. Records note she is on aspirin and Plavix however she states she does not currently take these medications. Denies lightheaded symptoms. History of similar in the past. She has had colonoscopies in the past however states she does not want any additional colonoscopies. She spoke with her son-in-law who she states physician after first episode states if it reoccurs to go to the emergency department. Last similar event a few months agoper patient. After further discussion with the patient and nursing noted she had her last fill clopidogrel this past April she states she is all on this however she does not take her baby aspirin. Prior similar symptoms: Yes PFSH PFSH Medical History GI bleed History of COPD Head injury Laceration of head Inability to ambulate due to knee ZONIA (obstructive sleep apnea) Essential hypertension History of dementia History of CVA in adulthood Recurrent episodes of unresponsiveness TIA (transient ischemic attack) Confusion COPD (chronic obstructive pulmonary disease) Alzheimer's dementia History of GI bleed GERD (gastroesophageal reflux disease) Anxiety and depression COVID-19 Hypertensive emergency without congestive heart failure DCIS (ductal carcinoma in situ) of breast Vitamin D deficiency Hypercholesterolemia Arthritis Ductal carcinoma in situ (DCIS) of right breast Fall Hypothyroidism Home Medications ?Medication ?Instructions ?Recorded ?Last Taken ?Type clopidogrel 75 mg tablet 75 mg PO DAILY #30 tabs 05/2007/15/24 Rx pramipexole 1.5 mg tablet 1.5 mg PO DAILY 10/16/22 History valsartan 320 1 tab PO DAILY 10/16/2206/17 History mg-hydrochlorothiazide 25 mg tablet memantine 10 mg tablet 10 mg PO DAILY 04/28/2306/18 History amlodipine 5 mg tablet 5 mg PO DAILY 06/11/2307/14 History pantoprazole 40 mg tablet,delayed 40 mg PO BID 30 days #60 tabs 03/25/24 07/15/24 Rx release diphenhydramine 25 1 tab PO QHS PRN sleep 07/1507/14/24 History mg-acetaminophen 500 mg tablet (Acetaminophen PM) escitalopram oxalate 5 mg tablet 5 mg PO QPM 07/15/24 07/14/24 History potassium chloride 10 mEq 20 meq PO BID 07/15/2407/15 History tablet,extended release Allergy/AdvReac Type Severity Reaction Status Date / Time lisinopril Allergy Mild cough Verified 07/15/24 14:56 alendronate sodium (From Allergy Unknown unknown Verified 07/15/24 14:56 Fosamax) Sulfa (Sulfonamide Allergy Rash Verified 07/15/24 14:56 Antibiotics) atorvastatin (From Lipitor) AdvReac Mild muscle Verified 07/15/24 14:56 aches rosuvastatin (From Crestor) AdvReac Mild muscle Verified 07/15/24 14:56 aches codeine AdvReac Nausea Verified 07/15/24 14:56 NSAIDS (Non-Steroidal AdvReac Bleeding Verified 07/15/24 14:56 Anti-Inflamma Family History Mother Heart disease CVA (cerebral vascular accident) Father Heart disease Surgical History Status post placement of implantable loop recorder (11/08/22) History of right hip replacement History of left mastoidectomy History of lumpectomy of right breast History of thyroid surgery History of hysterectomy Social History household members: spouse Smoking Status: Former smoker how long ago did patient quit smoking: Quit ~ 24-25 years prior. alcohol intake: current alcohol intake frequency: a few times a month details: 1 drink/[place] nightly. substance use type: other details: Given THC chew per her family for sleep but prior no substance use. ROS ROS ED Constitutional Constitutional ED: Denies chills, fever(s) or sweats ENT ENT ED: Denies sore throat Cardiovascular Cardiovascular: Denies chest pain, leg edema, palpitations or racing heartbeat Respiratory/Chest Respiratory/Chest: Denies cough, dyspnea or dyspnea on exertion Gastrointestinal Gastrointestinal: Reports other Details: Bright red blood per rectum ; Denies abdominal pain, diarrhea, nausea or vomiting Genitourinary Genitourinary ED: Denies dysuria, hematuria or urinary frequency Musculoskeletal Musculoskeletal: Denies back pain, extremity pain or neck pain Integumentary Denies rash or wounds Neurologic Neurologic: Denies headache(s), paresthesias or weakness EXAM Physical Exam Const Vital Signs: 07/15/24 14:54 07/15/24 15:58 07/15/24 16:00 Temperature 97.4 F L Temperature Source Temporal Pulse Rate 98 68 Respiratory Rate 20 H 19 H 20 H Blood Pressure 165/118 H 174/69 H Blood Pressure Mean 133 104 Pulse Ox 99 96 98 Oxygen Delivery Method Room Air Room Air 07/15/24 16:15 07/15/24 16:32 07/15/24 16:45 Temperature Temperature Source Pulse Rate 68 77 59 L Respiratory Rate 15 13 21 H Blood Pressure Blood Pressure Mean Pulse Ox 96 94 96 Oxygen Delivery Method 07/15/24 17:00 07/15/24 17:00 07/15/24 17:15 Temperature 98.2 F Temperature Source Pulse Rate 67 61 67 Respiratory Rate 22 H 21 H 22 H Blood Pressure 174/89 H 194/71 H 179/89 H Blood Pressure Mean 117 104 116 Pulse Ox 95 94 95 Oxygen Delivery Method Room Air Room Air Positive well nourished and well developed General Appearance ED: well developed and NAD HEENT Reports moist mucous membranes normocephalic and atraumatic Eyes General Eye ED: Yes normal appearance of both eyes; Negative for pale conjunctiva Neck full ROM Chest Wall Chest: Negative for tenderness Resp normal respiratory effort and normal air movement Effort and Inspection: symmetric chest movement; Negative for respiratory distress Cardio regular rate, regular rhythm and no murmurs Peripheral Pulses: pulses 2+ throughout GI normal to inspection, nondistended, normoactive bowel sounds and non-tender GI Narrative: Nursing blueprint maker for rectal exam, no external hemorrhoids noted, no fissures, digital rectal exam with red blood on finger. No masses palpated. Palpation: Negative for guarding or rebound tenderness present Extremity normal to inspection General Extremety ED: Negative for edema or tenderness General Extremity: Negative for edema Neuro oriented x3 and no sensory deficits noted Sensorium / Orientation: awake and alert Skin no rashes or lesions noted and no wounds MDM MDM MDM Narrative Medical decision making narrative: Interventions / MDM: Differential diagnosis: Lower GI bleed, diverticulosis Diagnosis considered but do not suspect: N/A My EKG interpretation: N/A Imaging independently reviewed and interpreted by myself: CT angiogram abdomen pelvis severe diverticular disease, left renal cyst, 50% narrowing of celiac andSMA artery. 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 She wasgiven 3 units of blood at that time for hemoglobin 5.7. Test considered but not ordered:N/A ED course: Vital stable and nontender abdomen. No clinical anemia. Will check labs coags, CT angiogram abdomen pelvis for further evaluation. 1550: Hemoglobin trend 13.4. [place] score 10. 1730: Reevaluation vital stable patient states she had additional bloody bowel movement while in the department. Discussed with her risk factors and open score, shared decision discussed with the patient. She lives alone. She had required 3 units of blood little over 3 months ago. Hemoglobin stablecurrently. Will discuss with hospitalist for observations for monitoring. 174: I discussed with Dr. Mojica for admission to the medical floor for furthermonitoring. Re-evaluation: stable Disposition discussed with patient/family/significant other: Patient and daughter Case discussed with consulting clinician: Hospitalist This note was generated with Health: Elt dictation software. It may contain incorrectwords, spelling, and punctuation that were not noted in checking the note beforesigning. Lab Data Attestation: I reviewed the patient's lab results. Labs: Laboratory Results - last 24 hr 0307/15/24 07/15/24 15:03 15:03 15:03 WBC 7.5 RBC 4.77 Hgb 13.4 Hct 41.5 MCV 87.0 MCH 28.1 MCHC 32.3 RDW Std Deviation 42.8 RDW Coeff of Kierra 13.3 Plt Count 257 MPV 9.6 Immature Gran % (Auto) 0.300 Neut % (Auto) 70.6 H Lymph % (Auto) 19.1 Walsh % (Auto) 8.1 Eos % (Auto) 1.1 Baso % (Auto) 0.8 Absolute Neuts (auto) 5.3 Absolute Lymphs (auto) 1.44 Nucleated RBC % 0 PT 14.3 INR 1.1 APTT 32.6 Sodium 133 Potassium 4.0 Chloride 97 L Carbon Dioxide 23.8 Anion Gap 13 BUN 14 Creatinine 0.75 Estim Creat Clear Calc 43.30 L Est GFR (MDRD) Non-Af 78 BUN/Creatinine Ratio 19.0 Glucose 136 H Calcium 10.1 Blood Type O POSITIVE Antibody Screen POSITIVE H Antibody Identification ANTI-E Antigen Identification E ANTIGEN - NEGATIVE Direct Antiglob Test POS w/POLYSPECIFIC H POS w/IgG H NEG w/COMPLEMENT Crossmatch See Detail Radiography Diagnostic Testing: Clinical Impression(s) from Imaging Studies Abdomen/Pelvis CTA 07/15/24 15:09 IMPRESSION: 1. Generalized atherosclerotic ectasia of the aorta with no discrete aneurysms. 2. 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 3. Colonic diverticulosis, marked. 4. Left renal cysts. 5. Status post hysterectomy. 6. Right total hip arthroplasty. 7. Severe degenerative osteoarthritis, left hip. 8. Grade 1 anterolisthesis, L4 on L5. 9. Multilevel spondylosis and degenerative disc disease. Anterior wedging of T11 vertebra. Reading Location: [facility] Discharge Plan Dx/Rx/DC Orders Clinical Impression: GI bleed, Diverticular disease Disposition Disposition: Acute Care Hospital [facility] Discharge Date/Time: 07/15/24 18:46 What to do if you have Problems For any increased pain, shortness of breath, bleeding, nausea or vomiting, chestpain, or any unexpected problems, contact your Primary Care Provider. Call [facility] ([phone]) or report tothe closest Emergency Room. Call 911 if necessary. 07/15/245 Cosigner Signature (if applicable): CC: Dr. Jose Hdz MD ~ Signed [facility]03-30-2025 History and physical note Author Leonora Mojica [facility] Note Date/Time July 15, 2024 6:2 0pm [facility] Medical Records Department [address] [place] [address] H&P Exam - Hospitalist 07/15/24 1810 MR#: [id number] Acct: [id number] Name: XAVIER RAHMAN Rep #:[id number] : 1940 84 From: Leonora Mojica MD PCP: Dr. Jose Hdz MD Status:ADM NICOLASA [id number] - General General Date of Admission: 07/15/24 Date of Service: 07/15/24 Chief Complaint: Bright red blood per rectum HPI Narrative XAVIER RAHMAN, is a 84-year-old female with history of restless leg syndrome, TIA,hypertension, mild cognitive impairment, GERD, depression who presented [facility] ED 07/15/2024 with bright red blood per rectum x 2 after judaism. The episodes were liquid without clots patient denies any abdominal pain. She previously was on aspirin and Plavix but has been longer taking aspirin. Does note she has had colonoscopies in the past and does not want any additional colonoscopies. She spoke with her son-in-law who reportedly is a physician after the first episode and stated if it recurs to go to the emergencydepartment so she presented. Did have an episode of similar a few months ago. In the ED patient afebrile, heart rate 98 with a blood pressure 165/118, respiratory rate 20 and patient 99% on room air. CBC unremarkable with hemoglobin of 13.4, similar to a previous hemoglobin last month, INR 1.1 BMP without any significant abnormalities, patient did have positive FOBT and CTA obtained which showed greater than 50% narrowing of the origins of the celiac artery and SMA with colonic diverticulosis and severe degenerative osteoarthritis left hip. 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 Given patient had 2 episodes and does have history of bleeding and FOBT positivehospitalist contacted for admission. Patient evaluated at bedside with family member present. Patient reports that she was at judaism and in her usual health and then on her drive home she suddenly felt like she needed to have a bowel movement and thought she would have diarrhea, reports she barely made at home tothe bathroom and then had a liquid bowel movement that was blood of decent quantity, subsequently ate food and contacted family member who is a physician who said if she has a repeat episode she needs to come to the ED, she did have another episode so she presented. Currently denying any abdominal pain, nausea or lightheadedness, daughter reports that she had a dizzy episode yesterday morning but then was able to go about her day. Reports compliance with her medications including her Plavix but does not take aspirin any longer. About 1 week ago had some episodes where she regurgitated some phlegm but this is resolved. Patient reports she does feel fatigued and tired for the past 1 to 2 days [facility] Medical History GI bleed History of COPD Head injury Laceration of head Inability to ambulate due to knee ZONIA (obstructive sleep apnea) Essential hypertension History of dementia History of CVA in adulthood Recurrent episodes of unresponsiveness TIA (transient ischemic attack) Confusion COPD (chronic obstructive pulmonary disease) Alzheimer's dementia History of GI bleed GERD (gastroesophageal reflux disease) Anxiety and depression COVID-19 Hypertensive emergency without congestive heart failure DCIS (ductal carcinoma in situ) of breast Vitamin D deficiency Hypercholesterolemia Arthritis Ductal carcinoma in situ (DCIS) of right breast Fall Hypothyroidism Home Medications ?Medication ?Instructions ?Recorded ?Last Taken ?Type clopidogrel 75 mg tablet 75 mg PO DAILY #30 tabs 05/2007/15/24 Rx pramipexole 1.5 mg tablet 1.5 mg PO DAILY 10/16/22 History valsartan 320 1 tab PO DAILY 10/16/2206/17 History mg-hydrochlorothiazide 25 mg tablet memantine 10 mg tablet 10 mg PO DAILY 04/28/2306/18 History amlodipine 5 mg tablet 5 mg PO DAILY 06/11/2307/14 History pantoprazole 40 mg tablet,delayed 40 mg PO BID 30 days #60 tabs 03/25/24 07/15/24 Rx release diphenhydramine 25 1 tab PO QHS PRN sleep 07/1507/14/24 History mg-acetaminophen 500 mg tablet (Acetaminophen PM) escitalopram oxalate 5 mg tablet 5 mg PO QPM 07/15/24 07/14/24 History potassium chloride 10 mEq 20 meq PO BID 07/15/2407/15 History tablet,extended release Allergy/AdvReac Type Severity Reaction Status Date / Time lisinopril Allergy Mild cough Verified 07/15/24 14:56 alendronate sodium (From Allergy Unknown unknown Verified 07/15/24 14:56 Fosamax) Sulfa (Sulfonamide Allergy Rash Verified 07/15/24 14:56 Antibiotics) atorvastatin (From Lipitor) AdvReac Mild muscle Verified 07/15/24 14:56 aches rosuvastatin (From Crestor) AdvReac Mild muscle Verified 07/15/24 14:56 aches codeine AdvReac Nausea Verified 07/15/24 14:56 NSAIDS (Non-Steroidal AdvReac Bleeding Verified 07/15/24 14:56 Anti-Inflamma Family History Mother Heart disease CVA (cerebral vascular accident) Father Heart disease Surgical History Status post placement of implantable loop recorder (11/08/22) History of right hip replacement History of left mastoidectomy History of lumpectomy of right breast History of thyroid surgery History of hysterectomy Social History household members: spouse Smoking Status: Former smoker how long ago did patient quit smoking: Quit ~ 24-25 years prior. alcohol intake: current alcohol intake frequency: a few times a month details: 1 drink/[place] nightly. substance use type: other details: Given THC chew per her family for sleep but prior no substance use. ROS ROS Narrative General: Denies fever/chills HENT: Denies headache, denies stuffy nose, denies sore throat EYES: Denies changes in vision Resp: Denies cough, denies shortness of breath Cardiac: Denies chest pain GI: Denies abdominal pain, bright red blood per rectum x 3, denies nausea/vomiting : Denies changes in urination Extremity: Denies swelling MSK: Denies weakness but does feels fatigued Neuro: Denies any numbness/tingling Heme: Denies any bleeding or bruising Skin: Denies rashes Psychiatric: No complaints voiced Vital Signs Vital Signs Vital Signs: 07/15/24 14:54 07/15/24 15:58 07/15/24 16:00 Temperature 97.4 F L Temperature Source Temporal Pulse Rate 98 68 Respiratory Rate 20 H 19 H 20 H Blood Pressure 165/118 H 174/69 H Blood Pressure Mean 133 104 Pulse Ox 99 96 98 Oxygen Delivery Method Room Air Room Air 07/15/24 16:15 07/15/24 16:32 07/15/24 16:45 Temperature Temperature Source Pulse Rate 68 77 59 L Respiratory Rate 15 13 21 H Blood Pressure Blood Pressure Mean Pulse Ox 96 94 96 Oxygen Delivery Method 07/15/24 17:00 07/15/24 17:00 07/15/24 17:15 Temperature 98.2 F Temperature Source Pulse Rate 67 61 67 Respiratory Rate 22 H 21 H 22 H Blood Pressure 174/89 H 194/71 H 179/89 H Blood Pressure Mean 117 104 116 Pulse Ox 95 94 95 Oxygen Delivery Method Room Air Room Air Weight Weight: 60.328 kg Body Mass Index (BMI) 23.6 Physical Exam Narrative General: Alert, oriented, no apparent distress HEENT: Atraumatic, normocephalic Eyes: Anicteric, normal conjunctiva, extraocular movements grossly intact Neck: Supple Respiratory: Clear to auscultation bilaterally, normal respiratory effort Cardiovascular: Regular rate and rhythm GI: Soft, nontender, nondistended Extremities: No edema Musculoskeletal: Moving all extremities Neuro: No overt focal neurological deficits Skin: No rashes appreciated Psych: Cooperative Results Lab / Micro Data 07/15/24 15:03 07/15/24 15:03 Labs: Laboratory Results - last 24 hr 07/15/24 15:03: WBC 7.5, RBC 4.77, Hgb 13.4, Hct 41.5, MCV 87.0, MCH 28.1, MCHC 32.3, RDW Std Deviation 42.8, RDW Coeff of Kierra 13.3, Plt Count 257, MPV 9.6, Immature Gran % (Auto) 0.300, Neut % (Auto) 70.6 H, Lymph % (Auto) 19.1, Walsh % (Auto) 8.1, Eos % (Auto) 1.1, Baso % (Auto) 0.8, Absolute Neuts (auto) 5.3, Absolute Lymphs (auto) 1.44, Nucleated RBC % 0, PT 14.3, INR 1.1, APTT 32.6, Sodium 133, Potassium 4.0, Chloride 97 L, Carbon Dioxide 23.8, Anion Gap 13, BUN14, Creatinine 0.75, Estim Creat Clear Calc 43.30 L, Est GFR (MDRD) Non-Af 78, BUN/Creatinine Ratio 19.0, Glucose 136 H, Calcium 10.1, Blood Type O POSITIVE Micro: Microbiology 07/15/24 15:35 Stool Stool Occult Blood (LOIS) - Final Occult Blood Positive Imaging Radiology Impression Abdomen/Pelvis CTA 07/15/24 15:09 IMPRESSION: 1. Generalized atherosclerotic ectasia of the aorta with no discrete aneurysms. 2. 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 3. Colonic diverticulosis, marked. 4. Left renal cysts. 5. Status post hysterectomy. 6. Right total hip arthroplasty. 7. Severe degenerative osteoarthritis, left hip. 8. Grade 1 anterolisthesis, L4 on L5. 9. Multilevel spondylosis and degenerative disc disease. Anterior wedging of T11 vertebra. Reading Location: [facility] Assessment & Plan Assessment/Plan (1) Bright red rectal bleeding: PLAN: Plan # Concern for GI bleed -2 episodes of bright red blood per rectum at home and 1 in the ED and FOBT positive -CTA with greater than 50% narrowing of the origins of the celiac artery and SMAwith colonic diverticulosis but patient reports bleeding started before she had any food -hemoglobin is presently stable at 13.4 but has had multiple episodes in the course of a few hours and suspect repeats may be lower -Trend H&H -Does have history of upper GI bleed due to AVMs requiring upper endoscopy and intervention, currently no dark blood and only painless bright red blood per rectum, upper versus lower -GI consult -Clear liquid diet -Will continue patient's home PPI twice daily but IV #hx TIA -Patient no longer on baby aspirin but is on Plavix -Will hold at this time -Resume as soon as patient is cleared to do so #Hypertension -Patient hypertensive but given ongoing bleeding would be concerned about hypotension especially if patient ends up requiring procedure -Continue amlodipine but hold valsartan/hydrochlorothiazide -Will add as needed medication in the meantime # Restless leg syndrome -continue patient's home medication regimen # Mild cognitive impairment -Supportive care -Continue home medications #Depression/anxiety -Continue home medications #GERD -Continue PPI #DVT ppx: SCDs Leonora Mojica MD Charges/Coding Visit Charges Inpatient E&M: 38206 Init Hosp L2 07/15/24 1820 <Electronically signed by Leonora Mojica MD> Cosigner Signature (if applicable): CC: Dr. Jose Hdz MD; Dr. Leonora Mojica MD~ Signed [facility] Work Phone: 1(165) 517-334503-30-2025 Evaluation note* Diagnosis Onset Date Resolution Status Admit Date Acute blood loss anemia resolved M 2024 6:10pm GI bleed resolved July 15 6:10pm Anemia inactive July 15 6:10pm Bright red rectal bleeding inactive July 15, 2024 6:10pm [facility] Work Phone: 1(766) 810-549403-30-2025 History and physical note [facility] Medical Records Department [address] [place] [address] H&P Exam - Hospitalist 07/15/24 1810 MR#: [id number] Acct: [id number] Name: XAVIER RAHMAN Rep #:[id number] : 1940 84 From: Leonora Mojica MD PCP: Dr. Jose Hdz MD Status:ADM NICOLASA Location: [facility] [id number] HPI - General General Date of Admission: 07/15/24 Date of Service: 07/15/24 Chief Complaint: Bright red blood per rectum HPI Narrative XAVIER RAHMAN, is a 84-year-old female with history of restless leg syndrome, TIA,hypertension, mild cognitive impairment, GERD, depression who presented [facility] ED 07/15/2024 with bright red blood per rectum x 2 after judaism. The episodes were liquid without clots patient denies any abdominal pain. She previously was on aspirin and Plavix but has been longer taking aspirin. Does note she has had colonoscopies in the past and does not want any additional colonoscopies. She spokewith her son-in-law who reportedly is a physician after the first episode and stated if it recurs to go to the emergencydepartment so she presented. Did have an episode of similar a few months ago. In the ED patient afebrile, heart rate 98 with a blood pressure 165/118, respiratory rate 20 and patient 99% on room air. CBC unremarkable with hemoglobin of 13.4, similar to a previous hemoglobin lastmonth, INR 1.1 BMP without any significant abnormalities, patient did have positive FOBT and CTA obtained which showed greater than 50% narrowing of the origins of the celiac artery and SMA with colonic diverticulosis and severe degenerative osteoarthritis left hip. 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 Given patient had 2 episodes and does have history of bleeding and FOBT positivehospitalist contacted for admission. Patient evaluated at bedside with family member present. Patient reports that she was at judaism and in [facility] and then on her drive home she suddenly felt like she needed to have a bowel movement and thought she would have diarrhea, reports she barely made at home tothe bathroom and then had a liquid bowel movement that was blood of decent quantity, subsequently ate food and contacted family member who is a physician who said if she has a repeat episode she needs to come to the ED, she did have another episode so she presented. Currently denying any abdominal pain, nausea or lightheadedness, daughter reports that she had a dizzy episode yesterday morning but then was able to go about herday. Reports compliance with her medications including her Plavix but does not take aspirin any longer. About 1 week ago had some episodes where she regurgitated some phlegm but this is resolved. Patient reports she does feel fatigued and tired for the past 1 to 2 days [facility] Medical History GI bleed History of COPD Head injury Laceration of head Inability to ambulate due to knee ZONIA (obstructive sleep apnea) Essential hypertension History of dementia History of CVA in adulthood Recurrent episodes of unresponsiveness TIA (transient ischemic attack) Confusion COPD (chronic obstructive pulmonary disease) Alzheimer's dementia History of GI bleed GERD (gastroesophageal reflux disease) Anxiety and depression COVID-19 Hypertensive emergency without congestive heart failure DCIS (ductal carcinoma in situ) of breast Vitamin D deficiency Hypercholesterolemia Arthritis Ductal carcinoma in situ (DCIS) of right breast Fall Hypothyroidism Home Medications ?Medication ?Instructions ?Recorded ?Last Taken ?Type clopidogrel 75 mg tablet 75 mg PO DAILY #30 tabs 05/2007/15/24 Rx pramipexole 1.5 mg tablet 1.5 mg PO DAILY 10/16/22 History valsartan 320 1 tab PO DAILY 10/16/2206/17 History mg-hydrochlorothiazide 25 mg tablet memantine 10 mg tablet 10 mg PO DAILY 04/28/2306/18 History amlodipine 5 mg tablet 5 mg PO DAILY 06/11/2307/14 History pantoprazole 40 mg tablet,delayed 40 mg PO BID 30 days #60 tabs 03/25/24 07/15/24 Rx release diphenhydramine 25 1 tab PO QHS PRN sleep 07/1507/14/24 History mg-acetaminophen 500 mg tablet (Acetaminophen PM) escitalopram oxalate 5 mg tablet 5 mg PO QPM 07/15/24 07/14/24 History potassium chloride 10 mEq 20 meq PO BID 07/15/2407/15 History tablet,extended release Allergy/AdvReac Type Severity Reaction Status Date / Time lisinopril Allergy Mild cough Verified 07/15/24 14:56 alendronate sodium (From Allergy Unknown unknown Verified 07/15/24 14:56 Fosamax) Sulfa (Sulfonamide Allergy Rash Verified 07/15/24 14:56 Antibiotics) atorvastatin (From Lipitor) AdvReac Mild muscle Verified 07/15/24 14:56 aches rosuvastatin (From Crestor) AdvReac Mild muscle Verified 07/15/24 14:56 aches codeine AdvReac Nausea Verified 07/15/24 14:56 NSAIDS (Non-Steroidal AdvReac Bleeding Verified 07/15/24 14:56 Anti-Inflamma Family History Mother Heart disease CVA (cerebral vascular accident) Father Heart disease Surgical History Status post placement of implantable loop recorder (11/08/22) History of right hip replacement History of left mastoidectomy History of lumpectomy of right breast History of thyroid surgery History of hysterectomy Social History household members: spouse Smoking Status: Former smoker how long ago did patient quit smoking: Quit ~ 24-25 years prior. alcohol intake: current alcohol intake frequency: a few times a month details: 1 drink/[place] nightly. substance use type: other details: Given THC chew per her family for sleep but prior no substance use. ROS ROS Narrative General: Denies fever/chills HENT: Denies headache, denies stuffy nose, denies sore throat EYES: Denies changes in vision Resp: Denies cough, denies shortness of breath Cardiac: Denies chest pain GI: Denies abdominal pain, bright red blood per rectum x 3, denies nausea/vomiting : Denies changes in urination Extremity: Denies swelling MSK: Denies weakness but does feels fatigued Neuro: Denies any numbness/tingling Heme: Denies any bleeding or bruising Skin: Denies rashes Psychiatric: No complaints voiced Vital Signs Vital Signs Vital Signs: 07/15/24 14:54 07/15/24 15:58 07/15/24 16:00 Temperature 97.4 F L Temperature Source Temporal Pulse Rate 98 68 Respiratory Rate 20 H 19 H 20 H Blood Pressure 165/118 H 174/69 H Blood Pressure Mean 133 104 Pulse Ox 99 96 98 Oxygen Delivery Method Room Air Room Air 07/15/24 16:15 07/15/24 16:32 07/15/24 16:45 Temperature Temperature Source Pulse Rate 68 77 59 L Respiratory Rate 15 13 21 H Blood Pressure Blood Pressure Mean Pulse Ox 96 94 96 Oxygen Delivery Method 07/15/24 17:00 07/15/24 17:00 07/15/24 17:15 Temperature 98.2 F Temperature Source Pulse Rate 67 61 67 Respiratory Rate 22 H 21 H 22 H Blood Pressure 174/89 H 194/71 H 179/89 H Blood Pressure Mean 117 104 116 Pulse Ox 95 94 95 Oxygen Delivery Method Room Air Room Air Weight Weight: 60.328 kg Body Mass Index (BMI) 23.6 Physical Exam Narrative General: Alert, oriented, no apparent distress HEENT: Atraumatic, normocephalic Eyes: Anicteric, normal conjunctiva, extraocular movements grossly intact Neck: Supple Respiratory: Clear to auscultation bilaterally, normal respiratory effort Cardiovascular: Regular rate and rhythm GI: Soft, nontender, nondistended Extremities: No edema Musculoskeletal: Moving all extremities Neuro: No overt focal neurological deficits Skin: No rashes appreciated Psych: Cooperative Results Lab / Micro Data 07/15/24 15:03 07/15/24 15:03 Labs: Laboratory Results - last 24 hr 07/15/24 15:03: WBC 7.5, RBC 4.77, Hgb 13.4, Hct 41.5, MCV 87.0, MCH 28.1, MCHC 32.3, RDW Std Deviation 42.8, RDW Coeff of Kierra 13.3, Plt Count 257, MPV 9.6, Immature Gran % (Auto) 0.300, Neut % (Auto) 70.6 H, Lymph % (Auto) 19.1, Walsh % (Auto) 8.1, Eos % (Auto) 1.1, Baso % (Auto) 0.8, Absolute Neuts (auto) 5.3, Absolute Lymphs (auto) 1.44, Nucleated RBC % 0, PT 14.3, INR 1.1, APTT 32.6, Sodium 133, Potassium 4.0, Chloride 97 L, Carbon Dioxide 23.8, Anion Gap 13, BUN14, Creatinine 0.75, Estim Creat Clear Calc 43.30 L, Est GFR (MDRD) Non-Af 78, BUN/Creatinine Ratio 19.0, Glucose 136 H, Calcium 10.1, Blood Type O POSITIVE Micro: Microbiology 07/15/24 15:35 Stool Stool Occult Blood (LOIS) - Final Occult Blood Positive Imaging Radiology Impression Abdomen/Pelvis CTA 07/15/24 15:09 IMPRESSION: 1. Generalized atherosclerotic ectasia of the aorta with no discrete aneurysms. 2. 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 3. Colonic diverticulosis, marked. 4. Left renal cysts. 5. Status post hysterectomy. 6. Right total hip arthroplasty. 7. Severe degenerative osteoarthritis, left hip. 8. Grade 1 anterolisthesis, L4 on L5. 9. Multilevel spondylosis and degenerative disc disease. Anterior wedging of T11 vertebra. Reading Location: [facility] Assessment & Plan Assessment/Plan (1) Bright red rectal bleeding: PLAN: Plan # Concern for GI bleed -2 episodes of bright red blood per rectum at home and 1 in the ED and FOBT positive -CTA with greater than 50% narrowing of the origins of the celiac artery and SMAwith colonic diverticulosis but patient reports bleeding started before she had any food -hemoglobin is presently stable at 13.4 but has had multiple episodes in the course of a few hours and suspect repeats may be lower -Trend H&H -Does have history of upper GI bleed due to AVMs requiring upper endoscopy and intervention, currently no dark blood and only painless bright red blood per rectum, upper versus lower -GI consult -Clear liquid diet -Will continue patient's home PPI twice daily but IV #hx TIA -Patient no longer on baby aspirin but is on Plavix -Will hold at this time -Resume as soon as patient is cleared to do so #Hypertension -Patient hypertensive but given ongoing bleeding would be concerned about hypotension especially ifpatient ends up requiring procedure -Continue amlodipine but hold valsartan/hydrochlorothiazide -Will add as needed medication in the meantime # Restless leg syndrome -continue patient's home medication regimen # Mild cognitive impairment -Supportive care -Continue home medications #Depression/anxiety -Continue home medications #GERD -Continue PPI #DVT ppx: SCDs Leonora Mojica MD Charges/Coding Visit Charges Inpatient E&M: 06887 Init Hosp L2 07/15/24 1820 Cosigner Signature (if applicable): CC: Dr. Jose Hdz MD; Dr. Leonora Mojica MD~ Signed [facility]03-30-2025 Radiology Diagnostic study note [facility] Imaging Services [address] [place], [place] [id number] CTA Abd/Pelvis W/WO Contrast MR#: [id number] Acct: [id number] Name: XAVIER RAHMAN Rep #: [id number] : 1940 F 84 From: Lluvia Dorado MD PCP: Dr. Jose Hdz MD Status: REG ER Study:CTA Abd/Pelvis W/WO Contrast Date of Ex am: 07/15/24 Exam# [id number] Ordering Dr: Ta Soto DO PROCEDURE: CTA ABD/PELVIS W/WO CONTRAST 07/15/2024 REASON FOR EXAM: RECTAL BLEEDING. Hypertension. Alzheimer's dementia. History of breast cancer. Status post hysterectomy and right hip replacement. TECHNIQUE: CTA imaging of the abdomen and pelvis with intravenous contrast. Contiguous axial scans of 3.75 mm slice thicknesses. Sagittal and coronal reconstruction images were provided. One or more dose reduction techniques were used (e.g., automated exposure control, adjustment of mAand/or kv according to patient size, use of iterative reconstruction technique). CONTRAST: Isovue 370 VOLUME: 98mL RADIATION DOSE SUMMARY: CTDlvol: 15.53 mGy DLP: 553.74 mGycm COMPARISON: CTA abdomen and pelvis dated 03/21/2024. FINDINGS: Aorta: Diffuse atherosclerotic calcifications of the aorta. Diffuse atherosclerotic ectasia of the aorta. Iliac Arteries: Diffuse atherosclerotic calcific disease of the aortoiliac arteries. No critical stenoses. Celiac: Ostial narrowing of greater than 50% due to atherosclerotic calcific plaque formation. Generalized atherosclerotic calcific disease. SMA: Ostial narrowing of greater than 50% due to atherosclerotic calcific plaqueformation. Generalized atherosclerotic calcific disease. RENEE : Atherosclerotic plaque identified at the origin, less than 50% narrowing. Right Renal: No critical stenoses. Mild atherosclerotic calcific disease. Left Renal: No critical stenosis. Mild atherosclerotic calcific disease. OTHER FINDINGS: Lung bases: Mild bilateral parenchymal scarring. Liver: Normal. No ductal dilatation. Gallbladder: Unremarkable. Spleen: Normal. Adrenal glands: Unremarkable. Kidneys: A 3.6 x 3.2 cm cyst, left kidney. A smaller 1.4 cm cyst is also noted. No hydronephrosis. No renal calculi. Pancreas: No masses or other abnormalities. Gastrointestinal: Nonobstructive. No ulcerations. Marked colonic diverticulosis without signs of diverticulitis. Appendix: No signs of appendicitis. Peritoneum: No free air or free fluid. No masses. Lymph nodes: No pathologic adenopathy. Ascites: Unremarkable. Reproductive: Status post hysterectomy. Anterior abdominal wall: Unremarkable. Bladder: Unremarkable. Osseous structures: Right total hip arthroplasty. Severe degenerative arthriticchange involving theleft hip with multiple cystic changes. Multilevel spondylosis and degenerative disc disease. Grade 1 anterolisthesis of L4on L5. Anterior wedging of the T11 vertebra, loss of height in the range of 20%. CT/CTA Abd/Pelvis W/WO Contrast IMPRESSION: 1. Generalized atherosclerotic ectasia of the aorta with no discrete aneurysms. 2. 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 3. Colonic diverticulosis, marked. 4. Left renal cysts. 5. Status post hysterectomy. 6. Right total hip arthroplasty. 7. Severe degenerative osteoarthritis, left hip. 8. Grade 1 anterolisthesis, L4 on L5. 9. Multilevel spondylosis and degenerative disc disease. Anterior wedging of T11 vertebra. Reading Location: [facility] CC: Dr. Jose Hdz MD; Dr. Ta Soto DO ~ Security Installer: Signed [facility]02-01-2025 Consult note Author Ambreen Sin [facility] Note Date/Time July 17, 2024 12:1 6pm [facility] Medical Records Department [address] [place] [address] Counseling Note - Pharmacy 07/17/24 1215 MR#: [id number] Acct: [id number] Name: XAVIER RAHMAN Rep #:[id number] : 1940 84 From: Ambreen Sin PCP: Dr. Jose Hdz MD Status:ADM NICOLASA Y Location: [place] [address] Pharmacy [facility] has performed discharge medication reconciliation and counseling for this patient. 1. ASPIRIN 81MG PO DAILY 2. STOP CLOPIDOGREL AND POTASSIUM The patient's discharge medication list was reviewed for discrepancies and discrepancies were resolved. The patient was counseled on the following discharge medications and changes in medications for homegoing were reviewed. The Reason for Use, instructions for use, and potential side effects were reviewed for all new medications. The patient's questions regarding all of their medications were answered. The patient was able to verbally demonstrate an understanding of their dischargemedications. Patient counseled by vice president pharmacyErwin. Medications at Discharge Home Medications pramipexole 1.5 mg tablet 1.5 mg PO DAILY 10/16/22 valsartan 320 mg-hydrochlorothiazide 25 mg tablet 1 tab PO DAILY 10/16/22 memantine 10 mg tablet 10 mg PO DAILY 04/28/23 amlodipine 5 mg tablet 5 mg PO DAILY 06/11/23 pantoprazole 40 mg tablet,delayed release 40 mg PO BID 30 days #60 tabs 03/25/24 diphenhydramine 25 mg-acetaminophen 500 mg tablet (Acetaminophen PM) 1 tab PO QHS PRN sleep 07/15/24 escitalopram oxalate 5 mg tablet 5 mg PO QPM 07/15/24 aspirin 81 mg capsule 81 mg PO DAILY 30 days #30 caps 07/17/24 07/17/24 1216 <Electronically signed by Ambreen Sin> Date _ Ambreen Sin Cosigner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 there was no fracture. * Currently has a right knee immobilizer in place. * Fall precautions. * #History of TIA: On aspirin and Plavix. #History of syncope: Has not had syncope recently. Has a loop recorder in place. Follow-up with cardiology on outpatient basis. #History of Alzheimer's dementia:stable #Hypertension: On valsartan and hydrochlorothiazide as well as amlodipine. IV hydralazine as needed. #Anxiety and depression: On mirtazapine and trazodone as well as doxepin. #COPD: Not in exacerbation. Breathing treatments and bronchodilators. #History of breast cancer: S/p lumpectomy. Has a history of right ductal carcinoma. Stable. Follow-up with oncology on outpatient basis as needed. #ZONIA: Unable to tolerate CPAP or BiPAP. On oxygen as needed. DVT prophylaxis: Lovenox CODE STATUS: DNR CCA. Disposition: Will benefit from placement. Case management on board. PT OT on board. Charges/Coding Visit Charges Inpatient E&M: 45550 Subs Hosp L2 06/27/23 5084 <Electronically signed by Bernadette Javier MD> Bernadette Javier MD Cosigner Signature (if applicable): CC: ~ Signed [facility] Work Phone: 1(546) 720-418603-10-2024 History and physical note Author Emily Verdugo [facility] June 26, 2023 9:56pm Note Date/Time June 26, 2023 9:[address] [facility] Medical Records Department [address] [place] [address] H&P Exam - Hospitalist 06/26/232107 MR#: [id number] Acct: [id number] Name: XAVIER RAHMAN Rep #:[id number] : 1940 83 From: Emily Verdugo MD PCP: Dr. Jose Hdz MD Status:ADM NICOLASA Location: ICU CVICU20 2-1 HPI - General General Date of Admission: 06/26/23 Date of Service: 06/26/23 Chief Complaint: Fall, debility. HPI Narrative The patient is an 83 y/o F w/ PMHx: Anxiety and Depression, COPD, Former tobaccouse, Hx TIA/CVA w/ Chronically mildly altered/slurred speech baseline, Hx TIA/CVA, ZONIA unable to tolerate PAP therapy, HTN, HLD, Hx R Ductal Carcinoma Breast, Alzhemier's dementia with unclear behavioral disturbance history, Hx GI bleed, Syncope events with loop recorder in place following with Cardiology who presents to the [facility] ED on 06/26/23 initially earlier in the morning with unremarkable workup following a fall however upon return to home she again notesthat her right knee gave out and she again fell with significant difficulty caring for self with family concerns prompting them to bring her to the ED for consideration of admission to assure no further injury or falls. Patient deniesany pain to the right knee but notes that it feels weak and just seems to buckle. Current workup in the ED included T97.1, heart rate 88, BP 170 or 73, respiratory rate 19, 94% on room air, CT of the brain with a small right occipital scalp hematoma with no acute intracranial findings, CT cervical spine with no acute fracture or subluxation with generative disc disease with straightening of the normal lordotic curvature, plain film of the right knee with an effusion, CT of the right knee with irregular radiolucency in the inferior pole of the patella questionably and enthesophyte versus nondisplaced fracture however case per ED staff was reviewed with orthopedic surgery who looked at the image and stated that this was not a fracture. Patient had fallenearlier in the morning and workup at that time with CBC with WBC 5.2, nxhocpptil38.5, platelet 244 without marked shift, D-dimer 0.89 which is near age-adjusted, BMP with sodium 136, potassium 4.6, chloride 106, BUN/creatinine 15/0.82, glucose 100, troponin 9, BNP 44.2, chest x-ray with chronic changes with no acute cardiopulmonary findings. In the ED patient administered tetanus update as well as Tylenol 650 mg p.o. x 1. 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 Essential hypertension Fall GERD (gastroesophageal reflux disease) GI bleed History of CVA in adulthood History of dementia History of GI bleed Hypercholesterolemia Hypertensive emergency without congestive heart failure Hypothyroidism ZONIA (obstructive sleep apnea) Recurrent episodes of unresponsiveness TIA (transient ischemic attack) Vitamin D deficiency Home Medications aspirin 81 mg chewable tablet 81 mg PO BREAKFAST #0 tabs 06/15/22 [Rx Last Taken Unknown] clopidogrel 75 mg tablet 75 mg PO DAILY #30 tabs 06/15/22 [Rx Last Taken Unknown] mirtazapine 15 mg tablet 7.5 mg PO DAILY 10/16/22 [History Last Taken Unknown] pantoprazole 40 mg tablet,delayed release 40 mg PO DAILY 10/16/22 [History Last Taken Unknown] pramipexole 1.5 mg tablet 1.5 mg PO DAILY 10/16/22 [History Last Taken Unknown] valsartan 320 mg-hydrochlorothiazide 25 mg tablet 1 tab PO DAILY 10/16/22 [History Last Taken Unknown] atorvastatin 40 mg tablet 40 mg PO QHS 04/28/23 [History Last Taken Unknown] chlorpheniramine maleate 4 mg tablet (Allergy (chlorpheniramine)) 4 mg PO QHS 04/28/23 [History Last Taken Unknown] memantine 10 mg tablet 10 mg PO DAILY 04/28/23 [History Last Taken Unknown] trazodone 50 mg tablet 50 mg PO QHS 04/28/23 [History Last Taken Unknown] amlodipine 5 mg tablet 5 mg PO DAILY 06/11/23 [History Last Taken Unknown] albuterol sulfate 90 mcg/actuation aerosol inhaler (Ventolin HFA) 1 - 2 puff inhalation Q4H PRN PRN Wheezing ##1 06/26/23 [Rx Last Taken Unknown] doxepin 10 mg capsule 10 mg PO QHS 06/26/23 [History Last Taken Unknown] furosemide 20 mg tablet 20 mg PO DAILY #5 tabs 06/26/23 [Rx Last Taken Unknown] potassium chloride 20 mEq/15 mL oral liquid 20 meq PO BID 06/26/23 [History Last Taken Unknown] Allergy/AdvReac Type Severity Reaction Status Date / Time lisinopril Allergy Mild cough Verified 06/26/23 16:28 alendronate sodium Allergy Unknown unknown Verified 06/26/23 16:28 [From Fosamax] Sulfa (Sulfonamide Allergy Rash Verified 06/26/23 16:28 Antibiotics) atorvastatin [From Lipitor] AdvReac Mild muscle Verified 06/26/23 16:28 aches rosuvastatin [From Crestor] AdvReac Mild muscle Verified 06/26/23 16:28 aches codeine AdvReac Nausea Verified 06/26/23 16:28 NSAIDS (Non-Steroidal AdvReac Bleeding Verified 06/26/23 16:28 Anti-Inflamma Family History Mother Heart disease CVA (cerebral vascular accident) Father Heart disease Surgical History History of hysterectomy History of left mastoidectomy History of lumpectomy of right breast History of right hip replacement History of thyroid surgery Status post placement of implantable loop recorder (11/08/22) Social History household members: spouse Smoking Status: Former smoker how long ago did patient quit smoking: Quit ~ 24-25 years prior. alcohol intake: current alcohol intake frequency: a few times a month details: 1 drink/[place] nightly. substance use type: other details: Given THC chew per her family for sleep but prior no substance use. ROS ROS Narrative Admission Review of Systems: CONSTITUTIONAL: No weight loss, fever, chills, + weakness or fatigue. HEENT: + Chronically slurred speech. Eyes: No visual loss, blurred vision, double vision or yellow sclerae. Ears, Nose, Throat: No hearing loss, sneezing, congestion, runny nose or sore throat. SKIN: No rash or itching, lesions, wounds except + very staged ecchymoses including to the face and scalp with recent falls. CARDIOVASCULAR: + Ongoing issues with occasional pedial edema. No chest pain, chest pressure or chest discomfort, palpitations, orthopnea, syncopal events. RESPIRATORY: + Chronic cough. No shortness of breath, marked sputum, wheezing, hemoptysis. GASTROINTESTINAL: No anorexia, nausea, vomiting or diarrhea, abdominal pain, melena, BRBPR. GENITOURINARY: No dysuria, frequency, urgency or retention. NEUROLOGICAL: + Chronic dysarthria. No headache, dizziness, syncope, paralysis, ataxia, numbness or tingling in the extremities, focal weakness, change in bowelor bladder control, seizure. MUSCULOSKELETAL: + muscle, back pain, joint pain or stiffness. HEMATOLOGIC: No anemia. + Easy bleeding or bruising. LYMPHATICS: No enlarged nodes. No history of splenectomy. PSYCHIATRIC: + history of depression or anxiety. ENDOCRINOLOGIC: No reports of sweating, cold or heat intolerance. No polyuria orpolydipsia. ALLERGIES: + history of rhinitis. Vital Signs Vital Signs Vital Signs: 06/26/23 16:25 06/26/23 16:38 06/26/23 18:50 Temperature 97.1 F L Temperature Source Oral Pulse Rate 80 84 Respiratory Rate 16 18 Respiratory Effort Normal Non-Labored Respiratory Depth Normal Respiratory Pattern Normal Blood Pressure 170/82 H 148/89 H Blood Pressure Mean 111 108 Pulse Ox 95 95 Oxygen Delivery Method Room Air Room Air 06/26/23 20:53 Temperature 97.1 F L Temperature Source Pulse Rate 88 Respiratory Rate 19 H Respiratory Effort Respiratory Depth Respiratory Pattern Blood Pressure 170/73 H Blood Pressure Mean 105 Pulse Ox 93 Oxygen Delivery Method Weight Weight: 139 lb 15.896 oz Body Mass Index (BMI) 24.7 Physical Exam Narrative Physical Examination: General: Awake, alert, oriented x 3 and cooperative, seated upright in the ED bed, fatigued but denies any pain, staged ecchymoses evident, scalp hematoma evident. Skin: Normal color, normal turgor, no icterus, no cyanosis except for noted scalp hematoma, staged ecchymoses including to the face. HEENT: AT/NC, EOMI, PERRLA, mildly dry MM, no carotid bruits or JVD noted, see skin. Lungs: Mildly diminished, greater bases, appropriate effort, no rales, ronchi orwheezing. Heart: Regular rate and rhythm; no gallop, rub audible. Abdomen: Soft, NTTP, ND, distant normal BS, no appreciated HSM. Extremities: No cyanosis, no clubbing, mild pedal swelling. Neurological: Patient awake, alert, oriented as noted, cognitive function decreased baseline with underlying dementia but appears currently intact; pupilsequally reactive to light and accommodation, cranial nerves grossly normal, moving all 4 extremities, no focal deficits, strength moderately globally decreased to severely globally decreased, worse with attempt to ambulate howeverthis is before attempting placement of a knee immobilizer, speech chronically altered and unchanged from previous evaluations. Psychiatric: Affect appears normal, interactive and talkative, no acute evidenceof depressive or anxiety feelings but does have underlying history. Results Imaging Radiology Impression Brain CT 06/26/23 16:38 IMPRESSION: Small right occipital scalp hematoma. No acute intracranial hemorrhage. Electronically Signed: Wang Johnson MD at 18:41 EDT , Cervical Spine CT 06/26/23 16:39 IMPRESSION: 1. No acute fracture or subluxation. 2. Degenerative disc disease with straightening of the normal lordotic curvature. Electronically Signed: Wang Johnson MD at 18:47 EDT Reading Location ID and State: [id number] / [employer] , Service support , Knee X-Ray 06/26/23 17:46 IMPRESSION: Effusion, as described above. CT or MRI may be useful to exclude radiographic occult fracture. Electronically Signed: Wang Johnson MD at 18:51 EDT Reading Location ID and State: [id number] / [employer] , Service support , Lower Extremity CT 06/26/23 19:13 IMPRESSION: Irregular radiolucency the inferior pole of the patella may be related to an enthesophyte or nondisplaced fracture. Electronically Signed: Wang Johnson MD at 20:45 EDT , Assessment & Plan Assessment/Plan (1) Inability to ambulate due to knee: PLAN: Plan The patient is an 83 y/o F w/ PMHx: Anxiety and Depression, COPD, Former tobaccouse, Hx TIA/CVA w/ Chronically mildly altered/slurred speech baseline, Hx TIA/CVA, ZONIA unable to tolerate PAP therapy, HTN, HLD, Hx R Ductal Carcinoma Breast, Alzhemier's dementia with unclear behavioral disturbance history, Hx GI bleed, Syncope events with loop recorder in place following with Cardiology who presents to the [facility] ED on 06/26/23 initially earlier in the morning with unremarkable workup following a fall however upon return to home she again notesthat her right knee gave out and she again fell with significant difficulty caring for self with family concerns prompting them to bring her to the ED for consideration of admission to assure no further injury or falls. #1. Recurrent mechanical falls with debility, right knee instability with adultfailure to thrive: Given patient and patient family concern for ability to take care of herself will admit to medical surgical floor, maintain on fall precautions, continue knee immobilizer initiated in the ED, case was already reviewed with orthopedic surgery in the ED and they did review the films and felt this was not a fracture thus will defer any consultation with them primarily use the immobilizer for preventing the knee giving out, will consult PT/OT/case management consultation for discharge planning. From discussion withpatient she certainly sounds like she would be willing to do a short-term skilled but honestly she would benefit from assisted living placement in the long-term although it is unlikely to be affordable from discussions but will await case management/social work input. #2. Hx CVA/TIA: Patient with chronically altered speech/slurred speech which isbaseline of note, will cautiously continue aspirin and Plavix given falls however patient continues to have serial falls may need to rethink dual antiplatelet therapy for safety, continue hypertensive regimen, statin allergy noted. #3. History Frequent Syncopal events: Of note she denies recent syncope associated with her falls, s/p loop recorder in place, encourage continued outpatient follow-up with cardiology as previously arranged. #4. Alzhemier's dementia with unclear behavioral disturbance history: Complicates presentation, maintain on fall and aspiration precautions, PT/OT/case management consulted for discharge planning. #5. Hypertension: Continue home regimen including valsartan, hydrochlorothiazide, amlodipine, PRN hydralazine. #6. Hyperlipidemia: Reported statin allergy. #7. Anxiety and depression w/ chronic insomnia: We will continue patient home mirtazapine and trazodone as well as doxepin regimen but clarifying medications. #8. Chronic COPD with allergic rhinitis, chronic cough: Not on any chronic regimen, if necessary may add additional aerosol treatments but in the interim we will maintain on PRN albuterol, HOB, IS parameters, continue patient home levocetirizine regimen. #9. History of breast cancer: Patient with history of right ductal carcinoma, s/p lumpectomy prior, considered in remission, encourage continued outpatient follow-up as previously arranged. #10. Former tobacco use: Encourage continued tobacco cessation. #11. ZONIA: Unable to tolerate PAP therapy with oxygen supplementation instead. #12. DVT prophylaxis: Lovenox. #13. CODE status: Patient LAURA is her and living will is currently in place. Discussed CODE status at length including difference between FULL code, DNR-CCA and DNR-CC status. Following discussions about the differences in these status, requested DNR-CCA, no intubation status. Advanced Care Planning Face to Face Time: 16 minutes. Charges/Coding Visit Charges Inpatient E&M: 73636 Init Hosp L2 Procedures Hospitalists Procedures: 74012 Advncd Care Plan 30 Min 06/26/232141 <Electronically signed by Emily Verdugo MD> Cosigner Signature (if applicable): CC: Dr. Emily Verdugo MD; Dr. Jose Hdz MD~ Signed ADDENDUM by Dr. Emily Verdugo MD on 06/26/23 at 2156 Addendum Clarified with PCP and he notes her POA, passed ~ 2 months prior. From prior records her children are her secondary POA. Additionally, he notes that her evaluations with [facility] Neurologist, most recently on noted patient DOES NOT have Alzheimer's disease but has delirium frequently secondary to ongoing issues with insomnia and has the dysarthria when she is tired. 06/26/232155<Electronically signed by Emily Verdugo MD> Cosigner Signature (if applicable): cc: Dr. Emily Verdugo MD; Dr. Jose Hdz MD ~* Signed [facility] Work Phone: [phone]) 389-670003-10-2024 Discharge summary Author Genny Worley [facility] June 26, 2023 9:28pm Note Date/Time June 26, 2023 4:4 5pm [facility] Medical Records Department [address] [place] [address] Emergency Department Summary 06/26/23 MR#: [id number] Acct: [id number] Name: XAVIER RAHMAN Rep #:[id number] : 1940 83 From: Kera NATARAJAN PCP: Dr. Jose Hdz MD Status:ADM NICOLASA Location: ICU CVICU20 2-1 <Statement entered by Genny Worley MD - 06/26/23 21:28> I have personally performed a face to face assessment of the patient and have reviewed the ALEXUS Note. Patient presents after fall. Patient states she was wearing Shoes that caught on a rug causing her to trip and fall. She then had a coat rack fell off of the wall and hit her in the back of the head. She has a small laceration to the right posterior parietal scalp and bleeding is currently well-controlled. Patient sitting upright in bed no acute distress. Alert and talkative. Head and neck examination reveals a small, 3 to 4 mm laceration to the right posterior parietal scalp. Bleeding controlled. No C-spine tenderness. Heart is regular rate and rhythm. Lung sounds are clear. Abdomen is soft and nontender. CT scan of the head and C-spine revealed degenerative changes with no acute findings. Right scalp laceration is cleansed and sealed with Dermabond. Patient wanted to get up to go the restroom but noted that she was having significant right knee pain and had difficulty with weightbearing. At that timex-rays of the right knee are obtained. Per my interpretation this reveals arthritic changes. Radiology feels there is a joint effusion and further imaging suggested if concern for fracture. CT scan of the knee is obtained. There are some changes noted along the inferior aspect of the patella that may represent a fracture or osteophyte formation. She does not have focal tenderness to this area. At this time patient is not able to weight-bear. She feels she will need physical therapy and possible placement. We will discuss with hospitalist for admission. HPI History of Present Illness Chief Complaint: Fall Narrative Narrative: Patient presenting today due to a head injury that occurred this afternoon. Shereports that she had put on a pair of new slippers and the slipper caught the edge of the rug causing her to trip and hit her face against the ground. As shewas falling, she did hit her head against the wall which caused a large metal rack to fall off the wall and strike her in the back of the head. She reports asmall laceration to the back of her head. She is unsure when her last tetanus was updated. She is on aspirin and Plavix. She denies loss of consciousness. She denies other injury. 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 Essential hypertension Fall GERD (gastroesophageal reflux disease) GI bleed History of CVA in adulthood History of dementia History of GI bleed Hypercholesterolemia Hypertensive emergency without congestive heart failure Hypothyroidism ZONIA (obstructive sleep apnea) Recurrent episodes of unresponsiveness TIA (transient ischemic attack) Vitamin D deficiency Home Medications aspirin 81 mg chewable tablet 81 mg PO BREAKFAST #0 tabs 06/15/22 [Rx Last Taken Unknown] clopidogrel 75 mg tablet 75 mg PO DAILY #30 tabs 06/15/22 [Rx Last Taken Unknown] mirtazapine 15 mg tablet 7.5 mg PO DAILY 10/16/22 [History Last Taken Unknown] pantoprazole 40 mg tablet,delayed release 40 mg PO DAILY 10/16/22 [History Last Taken Unknown] pramipexole 1.5 mg tablet 1.5 mg PO DAILY 10/16/22 [History Last Taken Unknown] valsartan 320 mg-hydrochlorothiazide 25 mg tablet 1 tab PO DAILY 10/16/22 [History Last Taken Unknown] atorvastatin 40 mg tablet 40 mg PO QHS 04/28/23 [History Last Taken Unknown] chlorpheniramine maleate 4 mg tablet (Allergy (chlorpheniramine)) 4 mg PO QHS 04/28/23 [History Last Taken Unknown] memantine 10 mg tablet 10 mg PO DAILY 04/28/23 [History Last Taken Unknown] trazodone 50 mg tablet 50 mg PO QHS 04/28/23 [History Last Taken Unknown] amlodipine 5 mg tablet 5 mg PO DAILY 06/11/23 [History Last Taken Unknown] albuterol sulfate 90 mcg/actuation aerosol inhaler (Ventolin HFA) 1 - 2 puff inhalation Q4H PRN PRN Wheezing ##1 06/26/23 [Rx Last Taken Unknown] doxepin 10 mg capsule 10 mg PO QHS 06/26/23 [History Last Taken Unknown] furosemide 20 mg tablet 20 mg PO DAILY #5 tabs 06/26/23 [Rx Last Taken Unknown] potassium chloride 20 mEq/15 mL oral liquid 20 meq PO BID 06/26/23 [History Last Taken Unknown] Allergy/AdvReac Type Severity Reaction Status Date / Time lisinopril Allergy Mild cough Verified 06/26/23 16:28 alendronate sodium Allergy Unknown unknown Verified 06/26/23 16:28 [From Fosamax] Sulfa (Sulfonamide Allergy Rash Verified 06/26/23 16:28 Antibiotics) atorvastatin [From Lipitor] AdvReac Mild muscle Verified 06/26/23 16:28 aches rosuvastatin [From Crestor] AdvReac Mild muscle Verified 06/26/23 16:28 aches codeine AdvReac Nausea Verified 06/26/23 16:28 NSAIDS (Non-Steroidal AdvReac Bleeding Verified 06/26/23 16:28 Anti-Inflamma Family History Mother Heart disease CVA (cerebral vascular accident) Father Heart disease Surgical History History of hysterectomy History of left mastoidectomy History of lumpectomy of right breast History of right hip replacement History of thyroid surgery Status post placement of implantable loop recorder (11/08/22) Social History household members: spouse Smoking Status: Former smoker how long ago did patient quit smoking: Quit ~ 24-25 years prior. alcohol intake: current alcohol intake frequency: a few times a month details: 1 drink/[place] nightly. substance use type: other details: Given THC chew per her family for sleep but prior no substance use. ROS ROS ED Constitutional Constitutional ED: Denies chills or fever(s) Cardiovascular Cardiovascular: Denies chest pain Respiratory/Chest Respiratory/Chest: Denies cough or dyspnea Gastrointestinal Gastrointestinal: Denies abdominal pain, nausea or vomiting Musculoskeletal Musculoskeletal: Denies arthralgias, myalgias or neck pain Integumentary Reports laceration Neurologic Neurologic: Denies headache(s) EXAM Physical Exam Const Vital Signs: 06/26/23 16:25 06/26/23 16:38 06/26/23 18:50 Temperature 97.1 F L Temperature Source Oral Pulse Rate 80 84 Respiratory Rate 16 18 Respiratory Effort Normal Non-Labored Respiratory Depth Normal Respiratory Pattern Normal Blood Pressure 170/82 H 148/89 H Blood Pressure Mean 111 108 Pulse Ox 95 95 Oxygen Delivery Method Room Air Room Air 06/26/23 20:53 Temperature 97.1 F L Temperature Source Pulse Rate 88 Respiratory Rate 19 H Respiratory Effort Respiratory Depth Respiratory Pattern Blood Pressure 170/73 H Blood Pressure Mean 105 Pulse Ox 93 Oxygen Delivery Method Positive well nourished, well developed and no apparent distress General Appearance ED: well developed HEENT Reports normocephalic and head/scalp atraumatic HEENT Narrative: Very small area of edema and ecchymosis below the right eye. No pain to palpation to the inferior or superior orbits bilaterally or facial bones. Small 0.5 cm full-thickness linear laceration to the posterior scalp. Mouth ED: Yes moist mucous membranes normal Eyes PERRL and EOMs intact bilaterally Neck full ROM and supple Chest Wall inspection of chest normal Resp normal respiratory effort and clear to auscultation bilaterally Cardio regular rate and regular rhythm GI soft to palpation, non-tender, non-distended and no masses Back/Spine normal ROM and normal to inspection Extremity normal to inspection and full ROM Neuro oriented x3, CN's II-XII intact bilaterally, moves all extremities, no focal motor deficits and no sensory deficits noted Sensorium / Orientation: awake and alert Psych mental status grossly normal and thought process normal Skin no rashes or lesions noted MDM MDM MDM Narrative Medical decision making narrative: Patient presenting today due to a mechanical fall that occurred this afternoon causing her to fall and hit her head. She has a small laceration to the posterior aspect of her head. Given she is on blood thinners, head CT will be obtained to rule out intracranial bleed, cervical spine CT will be obtained to rule out neck fracture. The nurse did attempt to ambulate patient to the bathroom but she was unable to stand due to right knee pain and feeling like herknee was giving out. Daughter reports that after patient fell she was unable toambulate well due to her right knee giving out. Patient does live at home by herself and daughter is concerned that she will not be able to get around at home. X-ray of the right knee will be obtained to rule out fracture. She will be given analgesia. This does show an effusion with concerns for possible occult fracture, CT scan was then obtained and shows possible nondisplaced fracture to the inferior pole of the patella. Patient does not have any tenderness on exam to her patella and reports that it is no longer painful. However, given she is having a difficult time ambulating I do not think that it is safe for her to be at home by herself. She was already here this morning where labs were obtained. I will discuss case with the hospitalist. She is agreeable to being placed in a SNF if necessary for physical therapy. Radiography X-Ray: Read by ED Physician Diagnostic Testing: Clinical Impression(s) from Imaging Studies Brain CT 06/26/23 16:38 IMPRESSION: Small right occipital scalp hematoma. No acute intracranial hemorrhage. Electronically Signed: Wang Johnson MD at 18:41 EDT Reading Location ID and State: [employer] , Service support , Cervical Spine CT 06/26/23 16:39 IMPRESSION: 1. No acute fracture or subluxation. 2. Degenerative disc disease with straightening of the normal lordotic curvature. Electronically Signed: Wang Johnson MD at 18:47 EDT Reading Location ID and State: [email or web address] , Service support , Knee X-Ray 06/26/23 17:46 IMPRESSION: Effusion, as described above. CT or MRI may be useful to exclude radiographic occult fracture. Electronically Signed: Wang Johnson MD at 18:51 EDT Reading Location ID and State: [email or web address] , Service support , Lower Extremity CT 06/26/23 19:13 IMPRESSION: Irregular radiolucency the inferior pole of the patella may be related to an enthesophyte or nondisplaced fracture. Electronically Signed: Wang Johnson MD at 20:45 EDT Reading Location ID and State: [email or web address] , Service support , Discharge Plan Triage Chief Complaint: Fall ED Midlevel Provider: Kera Rome ED Provider: Genny Worley Dx/Rx/DC Orders Clinical Impression: Inability to ambulate due to knee, Laceration of head, Head injury Prescriptions: No Action aspirin 81 mg Tablet,Chewable 81 mg PO BREAKFAST Qty: 0 0RF clopidogrel 75 mg Tablet 75 mg PO DAILY Qty: 30 0RF mirtazapine 15 mg tablet 7.5 mg PO DAILY Patient Comments: TAKE 1/2 TO 1 (ONE-HALF TO ONE) TABLET BY MOUTH AT BEDTIME pantoprazole 40 mg tablet,delayed release (DR/EC) 40 mg PO DAILY pramipexole 1.5 mg tablet 1.5 mg PO DAILY Patient Comments: TAKE 1 TABLET 2 TO 3 HOURS BEFORE BEDTIME FOR RESTLESS LEGS valsartan-hydrochlorothiazide 320-25 mg tablet 1 tab PO DAILY memantine 10 mg tablet 10 mg PO DAILY trazodone 50 mg tablet 50 mg PO QHS atorvastatin 40 mg tablet 40 mg PO QHS chlorpheniramine maleate [Allergy (chlorpheniramine)] 4 mg tablet 4 mg PO QHS amlodipine 5 mg tablet 5 mg PO DAILY albuterol sulfate [Ventolin HFA] 90 mcg/actuation HFA aerosol inhaler 1 - 2 puff inhalation Q4H PRN PRN (Reason: Wheezing) Qty: 1 0RF furosemide 20 mg tablet 20 mg PO DAILY Qty: 5 0RF doxepin 10 mg capsule 10 mg PO QHS potassium chloride 20 mEq/15 mL liquid 20 meq PO BID Primary Care Provider: Jose Hdz Referrals: Jose Hdz MD [Primary Care Provider] - Disposition Disposition: Acute Care Hospital [facility] What to do if you have Problems For any increased pain, shortness of breath, bleeding, nausea or vomiting, chestpain, or any unexpected problems, contact your Primary Care Provider. Call [facility] ([phone]) or report to the closest Emergency Room. Call 911 if necessary. 06/26/232103 <Electronically signed by Kera NATARAJAN> Cosigner Signature (if applicable): 06/26/232127 <Electronically signed by Genny Worley MD> CC: Dr. Jose Hdz MD ~ Signed [facility] Work Phone: [phone] 408-608503-10-2024 Discharge summary Author Esteban Leiva [facility] June 26, 2023 9:14am Note Date/Time June 26, 2023 7:1 9am [facility] Medical Records Department [address] [place] [address] Emergency Department Summary 06/26/23 MR#: [id number] Acct: [id number] Name: XAVIER RAHMAN Rep #:[id number] : 1940 83 From: Esteban Leiva MD PCP: Dr. Jose Hdz MD Status:REG ER Location: ED HPI History of Present Illness Chief Complaint: Shortness of Breath Informant: patient and family (daughter) Narrative Narrative: Patient presents with dyspnea, around 7 AM she woke up in the middle the night with this around 1:30 AM. She states this is not an uncommon occurrence and hasbeen occurring for months, but in the last 2 or 3 nights it was worse, and more persistent. She states usually when she sits up it improves and tonight it did not and she had persistent dyspnea. She states it is much better now but she still feels like it is a little off. She denies any chest discomfort. She has had edema in her legs for the last couple weeks, she was seen here in the ERfor it 2 weeks ago and then followed up with her PCP and was placed on compression pants which she has on now. They have helped some but this morning the daughter states that her feet are more swollen than typical after being in bed supine all night. Patient states there has always been some asymmetry with worsening in the left compared with right. No history of DVT or PE that she knows of. She has chronic minor cough that is no different than usual and nonproductive. She states lately she has noticed some mild dyspnea with activities, she just states that has been there for a while and cannot tell meexactly how long. She denies any exertional chest discomfort. She has an echocardiogram and PFTs scheduled within the next couple weeks. She is not on adiuretic although it had been considered recently apparently. Daughter states she has a history of sleep apnea but will not or cannot wear oxygen or CPAP at night. 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 Essential hypertension Fall GERD (gastroesophageal reflux disease) GI bleed History of CVA in adulthood History of dementia History of GI bleed Hypercholesterolemia Hypertensive emergency without congestive heart failure Hypothyroidism ZONIA (obstructive sleep apnea) Recurrent episodes of unresponsiveness TIA (transient ischemic attack) Vitamin D deficiency Home Medications aspirin 81 mg chewable tablet 81 mg PO BREAKFAST #0 tabs 06/15/22 [Rx Last Taken Unknown] clopidogrel 75 mg tablet 75 mg PO DAILY #30 tabs 06/15/22 [Rx Last Taken Unknown] mirtazapine 15 mg tablet 7.5 mg PO DAILY 10/16/22 [History Last Taken Unknown] pantoprazole 40 mg tablet,delayed release 40 mg PO DAILY 10/16/22 [History Last Taken Unknown] pramipexole 1.5 mg tablet 1.5 mg PO DAILY 10/16/22 [History Last Taken Unknown] valsartan 320 mg-hydrochlorothiazide 25 mg tablet 1 tab PO DAILY 10/16/22 [History Last Taken Unknown] atorvastatin 40 mg tablet 40 mg PO QHS 04/28/23 [History Last Taken Unknown] chlorpheniramine maleate 4 mg tablet (Allergy (chlorpheniramine)) 4 mg PO QHS 04/28/23 [History Last Taken Unknown] memantine 10 mg tablet 10 mg PO DAILY 04/28/23 [History Last Taken Unknown] potassium chloride 20 mEq tablet,extended release(part/cryst) 20 meq PO BID 04/28/23 [History Last Taken Unknown] trazodone 50 mg tablet 50 mg PO QHS 04/28/23 [History Last Taken Unknown] amlodipine 5 mg tablet 5 mg PO DAILY 06/11/23 [History Last Taken Unknown] albuterol sulfate 90 mcg/actuation aerosol inhaler (Ventolin HFA) 1 - 2 puff inhalation Q4H PRN PRN Wheezing ##1 06/26/23 [Rx Last Taken Unknown] furosemide 20 mg tablet 20 mg PO DAILY #5 tabs 06/26/23 [Rx Last Taken Unknown] Allergy/AdvReac Type Severity Reaction Status Date / Time lisinopril Allergy Mild cough Verified 06/26/23 06:40 alendronate sodium Allergy Unknown unknown Verified 06/26/23 06:40 [From Fosamax] Sulfa (Sulfonamide Allergy Rash Verified 06/26/23 06:40 Antibiotics) atorvastatin [From Lipitor] AdvReac Mild muscle Verified 06/26/23 06:40 aches rosuvastatin [From Crestor] AdvReac Mild muscle Verified 06/26/23 06:40 aches codeine AdvReac Nausea Verified 06/26/23 06:40 NSAIDS (Non-Steroidal AdvReac Bleeding Verified 06/26/23 06:40 Anti-Inflamma Family History Mother Heart disease CVA (cerebral vascular accident) Father Heart disease Surgical History History of hysterectomy History of left mastoidectomy History of lumpectomy of right breast History of right hip replacement History of thyroid surgery Status post placement of implantable loop recorder (11/08/22) Social History household members: spouse Smoking Status: Former smoker how long ago did patient quit smoking: Quit ~ 24-25 years prior. alcohol intake: current alcohol intake frequency: a few times a month details: 1 drink/[place] nightly. substance use type: other details: Given THC chew per her family for sleep but prior no substance use. ROS ROS ED Constitutional Constitutional ED: Denies chills or fever(s) Eyes Eyes: Denies change in vision or diplopia ENT ENT ED: Denies rhinorrhea or sore throat Cardiovascular Cardiovascular: Reports leg edema and paroxysmal nocturnal dyspnea; Denies chestpain, orthopnea or palpitations Respiratory/Chest Respiratory/Chest: Reports cough, dyspnea on exertion and paroxysmal nocturnal dyspnea; Denies orthopnea Gastrointestinal Gastrointestinal: Denies abdominal pain, diarrhea, nausea or vomiting Genitourinary Genitourinary ED: Denies dysuria or hematuria Musculoskeletal Musculoskeletal: Denies back pain or neck pain Integumentary Denies abscess or rash Neurologic Neurologic: Denies headache(s), paresthesias or weakness Psychiatric Psychiatric: Denies anxiety or suicidal thoughts EXAM Physical Exam Const Vital Signs: 06/26/23 06:37 06/26/23 06:37 06/26/23 07:05 Temperature 97.4 F L Temperature Source Temporal Pulse Rate 71 Respiratory Rate 16 Respiratory Effort Normal Non-Labored Respiratory Depth Normal Respiratory Pattern Normal Blood Pressure 166/71 H Blood Pressure Mean 102 Pulse Ox 98 96 Oxygen Delivery Method Room Air Room Air 06/26/23 07:32 06/26/23 08:00 06/26/23 07:22 Temperature Temperature Source Pulse Rate 72 71 Respiratory Rate 18 17 Respiratory Effort Respiratory Depth Respiratory Pattern Normal Blood Pressure 144/56 H Blood Pressure Mean 85 Pulse Ox 97 Oxygen Delivery Method Room Air Room Air Positive well nourished and well developed General Appearance ED: well developed and NAD HEENT Reports moist mucous membranes normocephalic and atraumatic Eyes PERRL and EOMs intact bilaterally Neck full ROM, supple and no JVD Resp normal respiratory effort and clear to auscultation bilaterally Resp Narrative: At 1 point very slight and expiratory wheezing Cardio regular rate, regular rhythm and no murmurs Rate: Negative for tachycardic GI non-tender and non-distended Auscultation: normoactive bowel sounds Palpation: soft Back/Spine no CVA tenderness General Back: other FROM Extremity normal to inspection General Extremety ED: Yes edema; Negative for pulses abnormal or tenderness General Extremity: edema bilateral lower extremity Details: moderate (Mostly in left foot although there is pitting edema pretibial bilaterally. No calf tenderness, signs of cellulitis or palpable cords); Negative for pulses abnormal Neuro oriented x3, CN's II-XII intact bilaterally and no sensory deficits noted Sensorium / Orientation: awake and alert Motor Exam: strength 5/5 throughout Psych mental status grossly normal Skin no rashes or lesions noted and no wounds MDM MDM MDM Narrative Medical decision making narrative: I considered multiple etiologies in this patient's mild dyspnea that wakes her up almost every night and is improved compared to what it was earlier at this time. She is conversive in full sentences every time I evaluate her. I tried an albuterol treatment, she said it helped. She states she has a history of mild COPD although I do not see it in her EMR and her daughter confirms this. We considered the possibility of congestive heart failure especially given the edema in her legs, DVT and PE given that the edema is asymmetric but always has been for a long time, COPD plus or minus pneumonia, anemia, and other cardiac etiology such as acute coronary syndrome. I rule out most of this, her troponinand BNP are normal, she is not anemic, renal function is normal, and she does not have pneumonia, her two-view chest x- ray my interpretation is unremarkable and radiology was in agreement, her EKG is unchanged and showing no acute injurypattern, couple PACs that she is asymptomatic with. The D-dimer is slightly elevated at 0.89. When adjusted for age, her upper limit of normal is 0.83. Ator below that point would give her 99.1% sensitivity for ruling out DVT and PE in someone with a low pretest probability which this patient does have. At thislevel, I cannot find a study that tells me exactly what the sensitivity would be, but I presume it would still be in the 90s. I discussed this with the patient and daughter at length. I do not think it is likely that she has a PE causing these respiratory symptoms. Therefore I think that the risk of CTA probably outweighs the potential benefit here, daughter is in agreement and agrees with avoiding it. In addition, we do not have access good enough to do CTA right now and that would involve more needlesticks which the patient does not want. Getting an outpatient ultrasound of the left lower extremity would bereasonable since there is no harm in it, but I do not think we need to upgrade her to anticoagulants in the meantime, she is already on aspirin and clopidogrelwhich also decreases her risk of thromboembolic disease. She also has obstructive sleep apnea and does not tolerate (or is not compliant) treatments for this, which could be certainly contributing to her PND. They are in agreement with all of this in addition to trying for 5 days of once daily diuretic and an albuterol inhaler to use as needed and following up with her doctor. Lab Data Attestation: I reviewed the patient's lab results. Labs: Laboratory Results - last 24 hr 06/26/23 07:30 WBC 5.2 RBC 4.55 Hgb 12.5 Hct 40.2 MCV 88.4 MCH 27.5 MCHC 31.1 L RDW Std Deviation 47.7 H RDW Coeff of Kierra 14.8 H Plt Count 244 MPV 9.5 Immature Gran % (Auto) 0.200 Neut % (Auto) 68.4 Lymph % (Auto) 13.9 L Walsh % (Auto) 13.7 H Eos % (Auto) 2.1 Baso % (Auto) 1.7 H Absolute Neuts (auto) 3.5 Absolute Lymphs (auto) 0.72 L Nucleated RBC % 0 D-Dimer Quant (PE/DVT) 0.89 H* Sodium 136 Potassium 4.6 Chloride 106 Carbon Dioxide 26.0 Anion Gap 4 L BUN 15 Creatinine 0.82 Estim Creat Clear Calc 43.00 Est GFR (MDRD) Af Amer 86 Est GFR (MDRD) Non-Af 71 BUN/Creatinine Ratio 18.3 Glucose 100 Calcium 9.3 Troponin I High Sens 9 B-Natriuretic Peptide 44.2 Radiography Diagnostic Testing: Clinical Impression(s) from Imaging Studies Chest X-Ray 06/26/23 07:11 IMPRESSION: Hyperinflated lungs. Electronically Signed: Alissa Moralez MD at 8:13 EDT , Rhythm Strip Rhythm Strip: Sinus Rhythm Rate: 75 Ectopy: PAC(s) EKG Initial EKG: Attestation: I personally reviewed and interpreted this EKG as follows: Interpretation: Sinus Rhythm and No Acute Injury Pattern Prior EKG tracings: available for review Prior: Unchanged Discharge Plan Triage Chief Complaint: Shortness of Breath ED Provider: Esteban Leiva Dx/Rx/DC Orders Clinical Impression: Bilateral edema of lower extremity, Sleep apnea, Dyspnea, paroxysmal nocturnal Instructions: ED Dyspnea, ED Peripheral Edema, Bilateral Prescriptions: New albuterol sulfate [Ventolin HFA] 90 mcg/actuation HFA aerosol inhaler 1 - 2 puff inhalation Q4H PRN PRN (Reason: Wheezing) Qty: 1 0RF furosemide 20 mg tablet 20 mg PO DAILY Qty: 5 0RF No Action aspirin 81 mg Tablet,Chewable 81 mg PO BREAKFAST Qty: 0 0RF clopidogrel 75 mg Tablet 75 mg PO DAILY Qty: 30 0RF mirtazapine 15 mg tablet 7.5 mg PO DAILY Patient Comments: TAKE 1/2 TO 1 (ONE-HALF TO ONE) TABLET BY MOUTH AT BEDTIME pantoprazole 40 mg tablet,delayed release (DR/EC) 40 mg PO DAILY pramipexole 1.5 mg tablet 1.5 mg PO DAILY Patient Comments: TAKE 1 TABLET 2 TO 3 HOURS BEFORE BEDTIME FOR RESTLESS LEGS valsartan-hydrochlorothiazide 320-25 mg tablet 1 tab PO DAILY memantine 10 mg tablet 10 mg PO DAILY potassium chloride 20 mEq tablet,ER particles/crystals 20 meq PO BID trazodone 50 mg tablet 50 mg PO QHS atorvastatin 40 mg tablet 40 mg PO QHS chlorpheniramine maleate [Allergy (chlorpheniramine)] 4 mg tablet 4 mg PO QHS amlodipine 5 mg tablet 5 mg PO DAILY Other Ambulatory Orders: Venous Duplex US, Unilateral (Stat) Facility: [facility] - Location: [facility] Ordered By: Dr. Esteban Leiva Primary Care Provider: Jose Hdz Referrals: Jose Hdz MD [Primary Care Provider] - 3-5 Days Disposition Disposition: Home, Self Care What to do if you have Problems For any increased pain, shortness of breath, bleeding, nausea or vomiting, chestpain, or any unexpected problems, contact your Primary Care Provider. Call [facility] ([phone]) or report to the closest Emergency Room. Call 911 if necessary. 06/26/23913 <Electronically signed by Esteban Leiva MD> Cosigner Signature (if applicable): CC: Dr. Jose Hdz MD ~ Signed [facility] Work Phone: [phone] 565-648602-24-2024 Discharge summary Author Jono Casanova [facility] June 11, 2023 1:08pm Note Date/Time June 11, 2023 10:20am [facility] Medical Records Department [address] [place] [id number] Emergency Department Summary 06/11/23 MR#: [id number] Acct: [id number] Name: XAVIER RAHMAN Rep #:[id number] : 1940 83 From: Jono Casanova MD PCP: Dr. Jose Hdz MD Status:REG ER Location: ED HPI History of Present Illness Chief Complaint: Edema Informant: patient and family Onset/Context/Timing Onset: Today Context: Gradual Onset Timing: Continuous Current Severity: Mild Maximum Severity: Mild Narrative Narrative: 83-year-old female with past medical history of dementia, mild COPD, hypertension and prior stroke. Reportedly no cardiac history. She has had bilateral leg swelling that started really today according to her and family. Daughters present in the room. No history of CHF or kidney disease according tothem. Patient lives alone. Her 5 years ago. Daughter states she does have a bourbon about once a night. Patient denies any recent illness or hospitalization. She has mild shortness of breath from time to time. No chest pain. 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 Essential hypertension Fall GERD (gastroesophageal reflux disease) GI bleed History of CVA in adulthood History of dementia History of GI bleed Hypercholesterolemia Hypertensive emergency without congestive heart failure Hypothyroidism ZONIA (obstructive sleep apnea) Recurrent episodes of unresponsiveness TIA (transient ischemic attack) Vitamin D deficiency Home Medications aspirin 81 mg chewable tablet 81 mg PO BREAKFAST #0 tabs 06/15/22 [Rx Last Taken Unknown] clopidogrel 75 mg tablet 75 mg PO DAILY #30 tabs 06/15/22 [Rx Last Taken Unknown] mirtazapine 15 mg tablet 7.5 mg PO DAILY 10/16/22 [History Last Taken Unknown] pantoprazole 40 mg tablet,delayed release 40 mg PO DAILY 10/16/22 [History Last Taken Unknown] pramipexole 1.5 mg tablet 1.5 mg PO DAILY 10/16/22 [History Last Taken Unknown] valsartan 320 mg-hydrochlorothiazide 25 mg tablet 1 tab PO DAILY 10/16/22 [History Last Taken Unknown] atorvastatin 40 mg tablet 40 mg PO QHS 04/28/23 [History Last Taken Unknown] chlorpheniramine maleate 4 mg tablet (Allergy (chlorpheniramine)) 4 mg PO QHS 04/28/23 [History Last Taken Unknown] memantine 10 mg tablet 10 mg PO DAILY 04/28/23 [History Last Taken Unknown] potassium chloride 20 mEq tablet,extended release(part/cryst) 20 meq PO BID 04/28/23 [History Last Taken Unknown] trazodone 50 mg tablet 50 mg PO QHS 04/28/23 [History Last Taken Unknown] amlodipine 5 mg tablet 5 mg PO DAILY 06/11/23 [History Last Taken Unknown] Allergy/AdvReac Type Severity Reaction Status Date / Time lisinopril Allergy Mild cough Verified 06/11/23 09:38 alendronate sodium Allergy Unknown unknown Verified 06/11/23 09:38 [From Fosamax] Sulfa (Sulfonamide Allergy Rash Verified 06/11/23 09:38 Antibiotics) atorvastatin [From Lipitor] AdvReac Mild muscle Verified 06/11/23 09:38 aches rosuvastatin [From Crestor] AdvReac Mild muscle Verified 06/11/23 09:38 aches codeine AdvReac Nausea Verified 06/11/23 09:38 NSAIDS (Non-Steroidal AdvReac Bleeding Verified 06/11/23 09:38 Anti-Inflamma Family History Mother Heart disease CVA (cerebral vascular accident) Father Heart disease Surgical History History of hysterectomy History of left mastoidectomy History of lumpectomy of right breast History of right hip replacement History of thyroid surgery Status post placement of implantable loop recorder (11/08/22) Social History household members: spouse Smoking Status: Former smoker how long ago did patient quit smoking: Quit ~ 24-25 years prior. alcohol intake: current alcohol intake frequency: a few times a month details: 1 drink/[place] nightly. substance use type: other details: Given THC chew per her family for sleep but prior no substance use. ROS ROS ED ROS Narrative Bilateral leg swelling. Mild shortness of breath. Review of Systems ROS Unobtainable: Denies due to encephalopathy Constitutional Constitutional ED: Denies chills or fever(s) Eyes Eyes: Denies blurry vision ENT ENT ED: Denies ear pain Cardiovascular Cardiovascular: Denies chest pain Respiratory/Chest Respiratory/Chest: Denies cough or dyspnea Gastrointestinal Gastrointestinal: Denies abdominal pain Genitourinary Genitourinary ED: Denies hematuria Musculoskeletal Musculoskeletal: Denies arthralgias or back pain Integumentary Denies abscess or Abrasions Neurologic Neurologic: Denies headache(s) Psychiatric Psychiatric: Denies anxiety or depression Endocrine Endocrinology: Denies cold intolerance Hematologic/Lymphatic Hematologic/Lymphatic: Reports none Allergic/Immunologic Allergic/Immunologic ED: Denies mouth swelling, tongue swelling or urticaria EXAM Physical Exam Narrative Exam Narrative: 83 female no acute distress sitting upright in bed. Daughter at bedside. Vitalsigns stable afebrile. Pulse ox 98% on room air no signs hypoxia. H EENT exam unremarkable. Neck nontender no JVD. No lymphadenopathy. Lungs clear to auscultation bilaterally. Heart regular rhythm rate about 90 no murmur. Chest wall nontender. Abdomen soft nontender. Moving all 4 extremities. Neurovascularly intact. Normal strength. She has bite pedal mild foot and ankle edema. Calves are nontender without edema or cords. Neurologically she is awake and alert. Answering questions following commands. Const Vital Signs: 06/11/23 09:38 06/11/23 10:08 06/11/23 10:12 Temperature 97.6 F L Temperature Source Temporal Pulse Rate 92 Respiratory Rate 16 Respiratory Effort Normal Non-Labored Respiratory Pattern Normal Blood Pressure 171/80 H Blood Pressure Mean 110 Pulse Ox 98 Oxygen Delivery Method Room Air Room Air 06/11/23 11:01 Temperature Temperature Source Pulse Rate Respiratory Rate Respiratory Effort Respiratory Pattern Blood Pressure 150/71 H Blood Pressure Mean 97 Pulse Ox Oxygen Delivery Method Positive well nourished and well developed; Negative for obese, cachectic, contractures or unkempt General Appearance ED: well developed and NAD; Negative for unkempt, cachectic, contractures, cyanotic, diaphoretic or pallor Nutritional Appearance: Negative for cachectic or obese HEENT Negative for trauma or tenderness Eyes PERRL and EOMs intact bilaterally General Eye ED: Negative for pale conjunctiva, scleral icterus or other Neck no lymphadenopathy, supple and no JVD General: Negative for tenderness Lymph Lymphatic: Negative for other Chest Wall Negative for inspection of chest normal or palpation of chest normal Chest: other Resp normal respiratory effort and clear to auscultation bilaterally Effort and Inspection: Negative for retractions Auscultation: Negative for rales, rhonchi or wheezes Cardio regular rate, regular rhythm, S1 normal heart sound, S2 normal heart sound and no murmurs Rate: Negative for bradycardia or tachycardic GI normal to inspection, nondistended, normoactive bowel sounds, non-tender, non-distended and no masses Inspection: Negative for abdominal distention Auscultation: normoactive bowel sounds Palpation: soft; Negative for tender, guarding or rebound tenderness present Back/Spine no CVA tenderness General Back: Negative for CVA tenderness Cervical Spine: Negative for cervical spine tenderness Thoracic Spine / Upper Back: Negative for thoracic spinal tenderness Lumbar Spine / Lower Back: Negative for lumbar spinal tenderness Extremity Negative for normal to inspection Extremity Narrative: Limited by pedal and ankle edema. General Extremety ED: Yes edema; Negative for tenderness General Extremity: edema Neuro oriented x3 and CN's II-XII intact bilaterally Sensorium / Orientation: alert; Negative for lethargic or stuporous Motor Exam: strength 5/5 throughout Psych mental status grossly normal Appearance: Negative for unkempt Attitude: No agitated Mood & Affect: Negative for depressed, anxious or tearful Skin no rashes or lesions noted and no wounds General Skin Exam: Negative for jaundice or pallor Lesions: No lesion noted Rashes: No rashes noted Trauma: Negative for abrasion Wounds: Negative for wounds noted MDM MDM MDM Narrative Medical decision making narrative: 83-year-old female with new onset foot and ankle edema. Obviously congestive heart failure or kidney issues are a possibility this could also be from low albumin which the family is concerned about because is a physician in the familyand the patient drinks daily and does not have the best nutrition reportedly. Repeat exam patient is doing well at 1 PM. We went over all of her test resultsof both her and her daughter. She actually is very good labs. Her EKG and chest x- ray were unremarkable. She has very minimal ankle edema bilaterally. Is actually improved since she has been here. She was not given any medicationshere. I do not think she needs to be started on a diuretic yet. They will follow-up with her primary care physician Dr. Jose Hdz for further evaluation. We discussed a possible echocardiogram if this gets worse. Patient and family are comfortable with the plan. History & Record Review Discussion w/independent historian: Patient and Family Additional record(s) reviewed:: Prior inpatient record, Prior outpatient record,Prior ED visit and Prior labs Lab Data Attestation: I reviewed the patient's lab results. Lab results narrative: CBC unremarkable white count of 6.5. H&H 12.4 and 38. Platelets 252. Electrolytes show a gap of 6. Normal BUN and creatinine are 12 and 0.7. Glucose 105. Liver enzymes are normal. Albumin is normal at 3.9 Labs: Laboratory Results - last 24 hr 06/11/23 10:27 WBC 6.5 RBC 4.39 Hgb 12.4 Hct 38.4 MCV 87.5 MCH 28.2 MCHC 32.3 RDW Std Deviation 47.8 H RDW Coeff of Kierra 14.9 H Plt Count 252 MPV 9.2 Immature Gran % (Auto) 0.500 Neut % (Auto) 74.5 H Lymph % (Auto) 11.1 L Walsh % (Auto) 11.6 H Eos % (Auto) 1.4 Baso % (Auto) 0.9 Absolute Neuts (auto) 4.8 Absolute Lymphs (auto) 0.72 L Nucleated RBC % 0 Sodium 136 Potassium 3.9 Chloride 106 Carbon Dioxide 24.0 Anion Gap 6 BUN 12 Creatinine 0.76 Est GFR (MDRD) Af Amer 93 Est GFR (MDRD) Non-Af 77 BUN/Creatinine Ratio 15.7 Glucose 105 Calcium 9.6 Total Bilirubin 0.60 AST 25 ALT 20 Alkaline Phosphatase 93 Troponin I High Sens 8 B-Natriuretic Peptide 50.3 Total Protein 7.4 Albumin 3.9 Globulin 3.5 Albumin/Globulin Ratio 1.1 Radiography Chest X-Ray - ED: 1 View, Read by ED Physician, Read by Radiologist, Heart, Lungs, Mediastinum, Bony Structures, No Acute Disease and Chronic Changes Diagnostic Testing: Clinical Impression(s) from Imaging Studies Chest X-Ray 06/11/23 10:12 IMPRESSION: No acute cardiopulmonary process identified. Electronically Signed: Anushka Butts MD at 10:54 EST Reading Location ID and State: [facility] / [place] Tel , Service support , Chest x-ray portable, single view interpreted by myself and the radiologist shows no acute abnormality. Normal cardiac silhouette. Normal lung parker. Noeffusions. No pulmonary edema. There is a loop recorder. Rhythm Strip Rhythm Strip: Sinus Rhythm Rate: 78 Ectopy: None EKG Initial EKG: Attestation: I personally reviewed and interpreted this EKG as follows: Interpretation: Sinus Rhythm and No Acute Injury Pattern Comments: . Normal sinus rhythm rate of 73 no acute signs of [place] or ischemia. Discharge Plan Triage Chief Complaint: Edema ED Provider: Jono Casanova Dx/Rx/DC Orders Clinical Impression: History of COPD, History of chronic hypertension, Mild peripheral edema Instructions: ED Peripheral Edema, Bilateral Prescriptions: No Action aspirin 81 mg Tablet,Chewable 81 mg PO BREAKFAST Qty: 0 0RF clopidogrel 75 mg Tablet 75 mg PO DAILY Qty: 30 0RF mirtazapine 15 mg tablet 7.5 mg PO DAILY Patient Comments: TAKE 1/2 TO 1 (ONE-HALF TO ONE) TABLET BY MOUTH AT BEDTIME pantoprazole 40 mg tablet,delayed release (DR/EC) 40 mg PO DAILY pramipexole 1.5 mg tablet 1.5 mg PO DAILY Patient Comments: TAKE 1 TABLET 2 TO 3 HOURS BEFORE BEDTIME FOR RESTLESS LEGS valsartan-hydrochlorothiazide 320-25 mg tablet 1 tab PO DAILY memantine 10 mg tablet 10 mg PO DAILY potassium chloride 20 mEq tablet,ER particles/crystals 20 meq PO BID trazodone 50 mg tablet 50 mg PO QHS atorvastatin 40 mg tablet 40 mg PO QHS chlorpheniramine maleate [Allergy (chlorpheniramine)] 4 mg tablet 4 mg PO QHS amlodipine 5 mg tablet 5 mg PO DAILY Primary Care Provider: Jose Hdz Referrals: Jose Hdz MD [Primary Care Provider] - As soon as possible Activity Restrictions/Additional Instructions: You have very mild edema or swelling in your lower legs. This could be from vascular insufficiency to do with the return of the blood flow which could be corrected with compressive stockings. Your kidney function is good. Your labs,chest x-ray and EKG look good. If this gets worse Dr. Hdz could get an echocardiogram to ensure that your heart is pumping normally. At this time I am not can start her on any medications. Elevate your legs throughout the day to help decrease the swelling. Disposition Disposition: Home, Self Care What to do if you have Problems For any increased pain, shortness of breath, bleeding, nausea or vomiting, chestpain, or any unexpected problems, contact your Primary Care Provider. Call [facility] ([phone]) or report to the closest Emergency Room. Call 911 if necessary. 06/11/23 1308 <Electronically signed by Jono Casanova MD> Cosigner Signature (if applicable): CC: Dr. Jose Hdz MD ~ Signed [facility] Work Phone: 1(255) 732-658508-02-2023 Miscellaneous Notes* Telephone Encounter - Marii Hassan LPN - 11/17/2022 1:56 PM EDT TC to pt who is okay with cancelling tilt table. TC to [facility] to cancel test. Marii Hassan LPN * Telephone Encounter - Jordana Flores APRN.CNP - 11/17/2022 12:56 PM EDT Ok to cancel tilt table testing. * Telephone Encounter - Cande Reyes RN - 11/17/2022 11:23 AM EDT Xavier at Dr. Sidhu's office returning call to give Neurology an update. States she spoke with Dr. Sidhu and he said patient may continue with tilt table test if Neurology wishes to have it completed, however he does not feel it is necessary. Reports Dr. Sidhu is aware that patient has orthostatic hypotension. States patient did have a Loop recorder implanted on 11/08 for syncope but may have tilt test completed if Neurology wishes. Also states the tilt table test order is still active and authorized to use. Cande Reyes RN * Telephone Encounter - Marii Hassan LPN - 11/17/2022 10:48 AM EDT TC to educational resource center teacher Dr. Sidhu. Spoke with clinical staff who states she will look into it. Gave her orthos taken in office over phone and she will give us a call back if pt needs to continue with testor if she can cancel it. Marii Hassan LPN * Telephone Encounter - Jordana Flores APRN.CNP - 11/17/2022 10:28 AM EDT If her educational resource center teacher does not feel tilt table is recommended it can be cancelled. Please ensure patient discussed orthostatic results that were obtained in the office with her educational resource center teacher prior to cancelling. Want to make sure he is aware of drop in BP. * Telephone Encounter - Delaney Coulter RN - 11/17/2022 10:16 AM EDT Test has not been canceled. Did not speak with physician. Patient was informed that cardiology doesnot feel is necessary. No additional information was given. No further explanation. 11/08 loop monitor was applied, nothing mentioned at that time regarding TTT Scheduled 9am tomorrow Routing to provider for review * Telephone Encounter - Karina John - 11/17/2022 10:00 AM EDT Patient was scheduled for a Tilt Test Tomorrow at [facility], however she received a call today stating that her Sheep Sorter Doctor told them that she does not need the test and it should be canceled. She does not know if she should move forward with the test now or not since it was a different Provider cancelling it. Please call patient at [phone] to advise. Thank you! [facility]* Diagnosis Onset Date Resolution Status Acute stroke due to ischemia acute Status post placement of implantable loop recorder Oct acute [facility] Work Phone: 1(869) 171-519607-13-2023 NoteHNO ID: [id number] Author: Jordana Flores APRN.ADRIAN Service: ? Author Type: Nurse Practitioner Type: Progress Notes Filed: 11/01/2022 10:01 AM Note Text: [facility] [place] New Patient Visit New Patient Consultation October 28, 2022 HPI: Ms. Rahman presents today accompanied by her secondary to [...] that she is here because she is confused. On further discussion she reports multiple additional ED visits since initial event. On review of chart, appears pt also presented to ED on 10/13 and again on 10/16. Notes are limited as pt was seen at [facility]. Per ED note on 10/13/22: Chief Complaint: [...] and the patient st (more content not included)...[facility] 10-28-2022 Instructions* Patient Instructions* Jordana Flores APRN.ROUGH ROUNDER MACHINE - 10/28/2022 4:32 PM EDT Orthostatic VS: Laying 155/72, HR 57 Sitting 161/72, HR 59 Standing 113/72, HR 68 and 122/72, HR 70 documented in this encounterC[facility]07[facility] History of Present illness Narrative* Jordana Flores APRN.CNP - 10/28/2022 3:30 PM EDT [facility] [place] New Patient Visit New Patient Consultation October 28, 2022 HPI: Ms. Rahman presents today accompanied by her secondary to [...] gave her an edible THC 2 days agoto help her sleep. Patient claims it was [...] that she is here because she is confused. On further discussion she reports multiple additional ED visits since initial event. On review of chart, appears pt also presented to ED on 10/13 and again on 10/16. Notes are limited as pt was seen at [facility]. Per ED note on 10/13/22: Chief Complaint: [...] for evaluation. They state onset of symptoms [id number] minutes prior to arrival. EMS states that [...] They usually occur in the evening. She getsvery weak lightheaded and decreased responsive. It seems like her breathing is shallow. Her husbandstates that it took 15 minutes for her [...] one time (the pt and her argue thispoint as she is uncertain she had weakness). Episodes resolve in 15-30 minutes. Denies associated lightheadeness, dizziness. States she just felt really tired. Did lose her balance in the past. States balance is off every day and now using a cane. Has checked BP during episodes and was 160 systolic. On further review of her discharge summary, HPI reports presents to the [facility] ED on 10/17/2022 with history of similar episode on evening prior to day of presentation as to the day prior with onset of weakness, lightheadedness, slurred speech prompting ED return. Has had two maybe three unresponsive episodes (again, pt and her argue this point and per ED note she has had multiple episodes). No tongue/cheek bite, loss of b/b. Can still answer questionsduring episodes. Occasional LLE weakness. Denies vision changes; [...] DM. Hx of hld. Does not take Tramadol.No seizure hx. 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 Alcohol: One glass nightly Tobacco: Quit 25 years ago Drug: Denies PAST MEDICAL HISTORY Diagnosis Date Ductal carcinoma in situ (DCIS) of right breast Hypertension Hypothyroidism Snoring PAST SURGICAL HISTORY Procedure Laterality Date BREAST LUMPECTOMY HX right breast COLONOSCOP W/ OR W/O [facility] SPEC 11/14/14 Colonoscopy HYSTERECTOMY HX age 43 [...] in all extremities. Vibratory sensation is intact andsymmetric all extremities. Deep tendon reflexes are brisk [...] In addition, images were obtained of the [place]. Sagittal and coronal reconstructed images and 3D reconstructions were reviewed. Individualized dose optimization techniques were used for this CT. IV contrast dosage and agent: 100 mL of Isovue-370. COMPARISON: 06/13/2022 CTA. FINDINGS: --CTA HEAD: No evidence of arterial flow limiting stenosis. No evidence of large vessel occlusion. 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 [place] anatomy is unremarkable. --CTA NECK: [...] lobe. Centrilobular emphysematous changes of the lungs. CT/STROKE CTA Head AND Neck W/Con IMPRESSION: [...] posterior cerebral arteries with absent P1 segments. data programmer: No significant stenosis at the visualized segments. [...] during admission, she was discharged home on ASA81, Plavix, and atorvastatin. She had outpatient cardiac [...] around her. Additional work-up completed during multiple admissionsincluding repeat MRI brain, repeat CTA head/neck, EEG [...] have asked her to follow-up with her educational resource center teacher on Tuesday regarding these readings. In theinterim, recommend treating with conservative measures including compression [...] untreated sleep apnea could potentially contribute to alteredawareness, uncertain to what extent this would effect sx she is having. Nevertheless, as untreated ZONIA is a risk factor for stroke/TIA would recommend continued follow up and treatment. For stroke prevention would recommend continuing ASA, Plavix, and statin. Goal BP <140/90 and BS<140. Recommend LDL <70 for stroke prevention. Continue to get adequate exercise/physical activity within limitations. She will follow up in four weeks or sooner if new or changing sx occur. Office Visit on 10/28/22 TILT TABLE EVALUATION Jordana Flores APRN.ADRIAN I spent a total of 80 minutes on the date of the service which included preparing to see the patient, [id number] patient care, completing clinical documentation, obtaining and/or reviewing separately obtained history, performing a medically appropriate examination, counseling and educating the pat ient/family/caregiver, and ordering medications, tests, or procedures. Portions of this note were created with electronic dictation and errors in spelling, syntax, and meaning may have occurred. documented in [facility] Discharge summary Author Terry Vuong [facility] October 17, 2022 1:02am Note Date/Time October 16, 2022 9:46p m [facility] Medical Records Department [address] [place] [address] Emergency Department Summary 10/16/22 MR#: [id number] Acct: [id number] Name: XAVIER RAHMAN Rep #:[id number] : 1940 82 From: Terry Vuong MD PCP: Dr. Jose Hdz MD Status:REG ER Location: ED HPI History of Present Illness Chief Complaint: Mental Status Change Informant: patient, spouse/S.O. and family Narrative Narrative: Patient had another one of her episodes tonight. She had 1 of these last night. She had one on Tuesday. I have seen her for 1. She has had multiple others. They usually occur in the evening. She gets very weak lightheaded and decreasedresponsive. It seems like her breathing is shallow. Her states that ittook 15 minutes for her to go down [...] antiplatelet therapy. She also has sleep apnea. Sheonly sleeps a couple hours at night and she gets very tired at night. She cannot use a mask because it just does not work well with her. Instead she uses oxygen sometimes at night. But she never has dyspnea during the day. If she isup walking and moving around she is not ever short of breath. That only occurs at night if she tries to sleep. She has had no fevers or chills. It seems likeshe and the family agrees that she is [...] the states that that is not true. There seems to be quite a bit of social stress between the patient her family and her . [facility] Medical History Alzheimer's dementia Anxiety and depression Arthritis Confusion COPD (chronic obstructive pulmonary disease) Ductal carcinoma in situ (DCIS) of right breast GERD (gastroesophageal reflux disease) History of GI bleed HTN (hypertension) Hypercholesterolemia Hypothyroidism TIA (transient ischemic attack) Vitamin D deficiency Home Medications fluoxetine 20 mg capsule 20 mg PO QHS depression 11/26/19 [History Last Taken Unknown] levocetirizine 5 mg tablet 5 mg PO QHS Check with primary doctor 11/26/19 [History Last Taken 11/25/19 22:00] hydrochlorothiazide 25 mg tablet 12.5 mg (1/2 x 25 mg) PO DAILY #15 tabs 11/27/19 [Rx Last Taken Unknown] losartan 100 mg tablet 100 mg PO DAILY #30 tabs 11/27/19 [Rx Last Taken Unknown] metoprolol tartrate 50 mg tablet 50 mg PO BID #60 tabs 11/27/19 [Rx Last Taken Unknown] aspirin 81 mg chewable tablet 81 mg PO BREAKFAST #0 tabs 06/15/22 [Rx Last Taken Unknown] atorvastatin 20 mg tablet 20 mg PO QHS #30 tabs 06/15/22 [Rx Last Taken Unknown] clopidogrel 75 mg tablet 75 mg PO DAILY #30 tabs 06/15/22 [Rx Last Taken Unknown] magnesium 500 mg tablet 500 mg PO DAILY 10/12/22 [History Last Taken Unknown] amlodipine 10 mg tablet mg 10/16/22 [History Last Taken Unknown] hydralazine 25 mg tablet mg 10/16/22 [History Last Taken Unknown] mirtazapine 15 mg tablet mg 10/16/22 [History Last Taken Unknown] pantoprazole 40 mg tablet,delayed release mg PO 10/16/22 [History Last Taken Unknown] pramipexole 1.5 mg tablet mg 10/16/22 [History Last Taken Unknown] valsartan 320 mg-hydrochlorothiazide 25 mg tablet tab 10/16/22 [History Last Taken Unknown] Allergy/AdvReac Type Severity Reaction Status Date / Time lisinopril Allergy Mild cough Verified 10/16/22 21:26 alendronate sodium Allergy Unknown unknown Verified 10/16/22 21:26 [From Fosamax] Sulfa (Sulfonamide Allergy Rash Verified 10/16/22 21:26 Antibiotics) atorvastatin [From Lipitor] AdvReac Mild muscle Verified 10/16/22 21:26 aches rosuvastatin [From Crestor] AdvReac Mild muscle Verified 10/16/22 21:26 aches codeine AdvReac Nausea Verified 10/16/22 21:26 NSAIDS (Non-Steroidal AdvReac Bleeding Verified 10/16/22 21:26 Anti-Inflamma Roltlyx-OJP-TsG Reductase AdvReac Other Verified 10/16/22 21:26 Inhibitor [Gycgsuq-Ujs-Htw Reductase Inhibitor] Family History Mother Heart disease CVA (cerebral vascular accident) Father Heart disease Surgical History History of hysterectomy History of left mastoidectomy History of lumpectomy of right breast History of right hip replacement History of right hip replacement History of thyroid surgery Social History household members: spouse Smoking Status: Former smoker how long ago did patient quit smoking: Quit ~ 24-25 years prior. alcohol intake: current alcohol intake frequency: a few times a month details: 1 drink/[place] nightly. substance use type: other details: Given THC chew per her family for sleep but prior no substance use. ROS ROS ED ROS Narrative A complete review of systems was performed and is negative except as documented in the history of present illness. Some specific details below. Constitutional: No recent fevers or chills. No rigors. Patient has not generallyfelt ill. During the day she feels fine. EYE: No discharge, visual complaints, or visual field cut. ENT: No difficulty swallowing. No swelling. CV: No chest pain, pressure or aching. No palpitations or irregular beats. Patient has not been presyncopal or syncopal. She gets very lightheaded and weak and decreased responsiveness but has never fallen or passed out. Respiratory: No trouble breathing except occasionally at night. No cough. No wheezing. No sputum production. No pain with breathing. GI: No abdominal pain. No nausea vomiting diarrhea. No blood in stool. : No frequency dysuria or hematuria. Musculoskeletal: No recent trauma. No pains. No swelling. Skin: No rash. Nondiaphoretic. Neuro: No focal weakness or numbness. No visual loss. Please see history of present illness also. Endocrine: No polyuria or polydipsia. EXAM Physical Exam Narrative Exam Narrative: CONSTITUTIONAL: Patient is nontoxic in appearance. The patient looks comfortable. Work of breathing looks normal. She is wide-awake pleasant and talks as soon as I enter the room. HEENT: No notable trauma. Mucous membranes moist. No sinus tenderness. No facial droop or asymmetry noted. EYES: No conjunctival injection. No proptosis. No pain with range of motion. No pallor. There is just a hint of nystagmus with lateral gaze. But she does not get dizzy with this. NECK: No meningismus. No JVD. CARDIOVASCULAR: Regular rate. Regular rhythm. No notable murmur. No JVD. RESPIRATORY: No respiratory distress. Breathing is unlabored. No wheezes. No rhonchi. No rales. No pain with a deep breath. GASTROINTESTINAL: Not distended. Bowel sounds are normal. No tenderness. No guarding. No rebound. No palpable mass. No bruit. GENITOURINARY: No tenderness over the bladder. No CVA tenderness. MUSCULOSKELETAL: Atraumatic. No peripheral edema. No cord. No tenderness along the deep venous system. No asymmetry. NEUROLOGICAL: Patient is alert and oriented. No focal deficit noted. NIH stroke scale is 0. No lateralizing finding. Great brand activation manager strength. Normal coordination. Her speech has a little bit of slowness to it but she states thisis a southern drawl and that way she always speaks. This is in fact the way shesounded last time I saw her. SKIN: No noted rashes. No diaphoresis. No vesicles noted. No notable pallor. PSYCHIATRIC: Patient is calm. Mood is appropriate. Const Vital Signs: 10/16/22 21:26 10/16/22 21:28 10/16/22 21:58 Temperature 96.8 F L Temperature Source Temporal Pulse Rate 67 66 62 Respiratory Rate 18 18 18 Blood Pressure 141/69 H 111/65 128/109 H Blood Pressure Mean 93 80 115 Pulse Ox 96 93 94 Oxygen Delivery Method Room Air Room Air Room Air 10/16/22 22:28 10/16/22 22:58 10/16/22 23:00 Temperature Temperature Source Pulse Rate 68 68 65 Respiratory Rate 17 19 H 18 Blood Pressure 125/67 H 120/64 123/63 H Blood Pressure Mean 86 82 83 Pulse Ox 93 94 94 Oxygen Delivery Method Room Air Room Air Room Air 10/17/22 00:00 Temperature Temperature Source Pulse Rate 65 Respiratory Rate 19 H Blood Pressure 137/62 H Blood Pressure Mean 87 Pulse Ox 92 Oxygen Delivery Method Room Air MDM MDM MDM Narrative Medical decision making narrative: Patient CBC is normal. Patient's electrolytes are normal. Patient's troponin is negative. Patient's alcohol is negative. Independent interpretation of patient's chest x-ray shows no acute process finalreading is similar Patient CT scan of the head shows old changes but no acute. I did my independent reading and this is similar to official reading. I also reviewed her MRI that was done back in May when she did have an acute stroke. I have talked extensively with the patient and her and daughter. There is a lot of social stress between the 3. But it sounds like she is having recurrent episodes where she is essentially unresponsive. It sounds like they are worsening. But she is not getting a focal deficit. There is not been seizure activity. She states she can hear and be aware of things but it is hardto respond. I do not know if she is having dysrhythmia. This almost sounds like near syncopal episodes. She states she is too weak to move when this happens and she oftentimes cannot speak. I am not sure if this is TIA or this might be another process. Family does not want her to go home and is not comfortable taking her home. She has agreed to come in the hospital to have this further evaluated. She evidently was supposed to see a educational resource center teacher a couple years ago for unknown issues but never did. Family with like to see if Dr. Sidhu can see the patient. I will call the hospitalist and discussed the case with them. Lab Data Attestation: I reviewed the patient's lab results. Labs: Laboratory Results - last 24 hr 10/16/22 10/16/22 21:20 21:29 WBC 6.7 RBC 4.46 Hgb 13.2 Hct 40.0 MCV 89.7 MCH 29.6 MCHC 33.0 RDW Std Deviation 48.7 H RDW Coeff of Kierra 14.8 H Plt Count 248 MPV 9.0 Immature Gran % (Auto) 0.400 Neut % (Auto) 60.6 Lymph % (Auto) 19.7 Walsh % (Auto) 16.8 H Eos % (Auto) 1.6 Baso % (Auto) 0.9 Absolute Neuts (auto) 4.1 Absolute Lymphs (auto) 1.32 Nucleated RBC % 0 PT 13.4 INR 1.0 APTT 33.1 Sodium 132 L Potassium 3.6 Chloride 99 Carbon Dioxide 28.0 Anion Gap 5 BUN 14 Creatinine 0.98 Estim Creat Clear Calc 38.22 Est GFR (MDRD) Af Amer 70 Est GFR (MDRD) Non-Af 58 L BUN/Creatinine Ratio 14.3 Glucose 105 Calcium 10.1 Troponin I High Sens 11 Ethyl Alcohol < 3.0 POC Glucose 109 H Radiography Diagnostic Testing: Clinical Impression(s) from Imaging Studies Brain CT 10/16/22 21:28 IMPRESSION: Stable focus of prior ischemic change in the right parietal temporal lobe. No visualized acute hemorrhage infarct or edema or significant change since the prior studies. Electronically Signed: Maria Guadalupe Munoz MD at 22:12 EDT , ADDENDUM: 10/16/22 2223 IMPRESSION: Stable focus of prior ischemic change in the right parietal temporal lobe. No visualized acute hemorrhage infarct or edema or significant change since the prior studies. N.B. : The above Results were Read Back by Maria Guadalupe Munoz MD to Terry Vuong MD, and understanding confirmed on 10/16/2022 22:16:51 (ET). Electronically Signed: Maria Guadalupe Munoz MD at 22:12 EDT , Chest X-Ray 10/16/22 21:50 IMPRESSION: No demonstrated acute cardiopulmonary process. Electronically Signed: Maria Guadalupe Munoz MD at 22:42 EDT , EKG Initial EKG: Comments: My independent interpretation the EKG shows normal sinus rhythm with a rate of 65. Mild irregular baseline but no acute ST elevation or depression. No ectopy. IN interval QRS duration and QTc are normal. Management Discussion w/another healthcare provider: Hospitalist Discharge Plan Dx/Rx/DC Orders Clinical Impression: Recurrent episodes of unresponsiveness, History of CVA in adulthood, History ofdementia Disposition Disposition: Acute Care [facility] What to do if you have Problems For any increased pain, shortness of breath, bleeding, nausea or vomiting, chestpain, or any unexpected problems, contact your Primary Care Provider. Call [facility] ([phone]) or report to the closest Emergency Room. Call 911 if necessary. 10/17/22 0102 <Electronically signed by Terry Vuong MD> Cosigner Signature (if applicable): CC: Dr. Jose Hdz MD ~ Signed [facility] Work Phone: [phone] Discharge summary Author Yoel Cam [facility] October 12, 2022 11:34pm Note Date/Time October 12, 2022 11:[address] [facility] Medical Records Department [address] [place] [address] Emergency Department Summary 10/12/22 MR#: [id number] Acct: [id number] Name: XAVIER RAHMAN Rep #:[id number] : 1940 82 From: Yoel Cam DO PCP: Dr. Jose Hdz MD Status:REG ER Location: ED HPI History of Present Illness Chief Complaint: Stroke Alert Informant: patient, spouse/S.O. [...] and drooling. Based on her history of previousTIA and stroke he was concern for this [...] ER patient symptoms have already spontaneously improved [facility] Medical History Alzheimer's dementia Anxiety and depression Arthritis Confusion COPD (chronic obstructive pulmonary disease) Ductal carcinoma in situ (DCIS) of right breast GERD (gastroesophageal reflux disease) History of GI bleed HTN (hypertension) Hypercholesterolemia Hypothyroidism TIA (transient ischemic attack) Vitamin D deficiency Home Medications fluoxetine 20 mg capsule 20 mg PO QHS depression 11/26/19 [History Last Taken Unknown] levocetirizine 5 mg tablet 5 mg PO QHS Check with primary doctor 11/26/19 [History Last Taken 11/25/19 22:00] hydrochlorothiazide 25 mg tablet 12.5 mg PO DAILY #15 tabs 11/27/19 [Rx Last Taken Unknown] losartan 100 mg tablet 100 mg PO DAILY #30 tabs 11/27/19 [Rx Last Taken Unknown] metoprolol tartrate 50 mg tablet 50 mg PO BID #60 tabs 11/27/19 [Rx Last Taken Unknown] aspirin 81 mg chewable tablet 81 mg PO BREAKFAST #0 tabs 06/15/22 [Rx Last Taken Unknown] atorvastatin 20 mg tablet 20 mg PO QHS #30 tabs 06/15/22 [Rx Last Taken Unknown] clopidogrel 75 mg tablet 75 mg PO DAILY #30 tabs 06/15/22 [Rx Last Taken Unknown] magnesium 500 mg tablet 500 mg PO DAILY 10/12/22 [History Last Taken Unknown] Allergy/AdvReac Type Severity Reaction Status Date / Time lisinopril Allergy Mild cough Verified 10/12/22 22:04 alendronate sodium Allergy Unknown unknown Verified 10/12/22 22:04 [From Fosamax] Sulfa (Sulfonamide Allergy Rash Verified 10/12/22 22:04 Antibiotics) atorvastatin [From Lipitor] AdvReac Mild muscle Verified 10/12/22 22:04 aches rosuvastatin [From Crestor] AdvReac Mild muscle Verified 10/12/22 22:04 aches codeine AdvReac Nausea Verified 10/12/22 22:04 NSAIDS (Non-Steroidal AdvReac Bleeding Verified 10/12/22 22:04 Anti-Inflamma Qjewsdb-SIU-VfD Reductase AdvReac Other Verified 10/12/22 22:04 Inhibitor [Kyceuhx-Isa-Eze Reductase Inhibitor] Family History Mother Heart disease CVA (cerebral vascular accident) Father Heart disease Surgical History History of hysterectomy History of left mastoidectomy History of lumpectomy of right breast History of right hip replacement History of right hip replacement History of thyroid surgery Social History household members: spouse Smoking Status: Former smoker how long ago did patient quit smoking: Quit ~ 24-25 years prior. alcohol intake: current alcohol intake frequency: a few times a month details: 1 drink/[place] nightly. substance use type: other details: Given THC chew per her family for sleep but prior no substance use. ROS ROS ED Constitutional Constitutional ED: Denies chills or fever(s) Eyes Eyes: Denies change in vision ENT ENT ED: Denies sore throat Cardiovascular Cardiovascular: Denies chest pain, palpitations or racing heartbeat Respiratory/Chest Respiratory/Chest: Denies cough or dyspnea Gastrointestinal Gastrointestinal: Denies abdominal pain, diarrhea, nausea or vomiting Genitourinary Genitourinary ED: Denies dysuria Musculoskeletal Musculoskeletal: Denies myalgias Integumentary Denies rash Neurologic Neurologic: Reports weakness; Denies headache(s) Hematologic/Lymphatic Hematologic/Lymphatic: Reports easy bleeding and easy bruising EXAM Physical Exam Const Vital Signs: 10/12/22 22:06 10/12/22 22:16 10/12/22 22:02 Temperature 97.6 F L 97.6 F L 97.6 F L Temperature Source Temporal Temporal Temporal Pulse Rate 64 68 67 Respiratory Rate 18 17 18 Blood Pressure 105/63 121/48 H 131/62 H Blood Pressure Mean 77 72 85 Pulse Ox 93 95 94 Oxygen Delivery Method Room Air Room Air Room Air 10/12/22 22:32 10/12/22 23:00 10/12/22 23:02 Temperature Temperature Source Pulse Rate 67 64 64 Respiratory Rate 20 H 16 Blood Pressure 124/107 H 123/62 H Blood Pressure Mean 112 82 Pulse Ox 95 97 Oxygen Delivery Method Room Air Room Air Positive well nourished and well developed General Appearance ED: well developed HEENT Reports moist mucous membranes Eyes PERRL and EOMs intact bilaterally Neck supple and no JVD Resp normal respiratory effort and clear to auscultation bilaterally Cardio regular rate and regular rhythm Rate: other Other Details: Radial pulses are plus 2 out of 4 bilaterally are equal and symmetric GI normal to inspection, nondistended, normoactive bowel sounds, non-tender, non-distended and no masses GI Narrative: No voluntary guarding or rigidity no pulsatile mass or fluid wave Auscultation: normoactive bowel sounds Palpation: soft Extremity normal to inspection Extremity Narrative: No asymmetric edema no pitting edema negative Homans' sign bilaterally Neuro oriented x3 and CN's II-XII intact bilaterally Neuro Narrative: Cranial nerves II through XII are grossly intact. No focal neurologic deficit. No pronator drift. No dysmetria. No truncal ataxia. NIH stroke scale score of0. Patient has recurrent slurred speech but this is baseline per patient and and she does have an evaluations by speech therapy earlier this month stating speech is slurred at baseline. Sensorium / Orientation: alert Psych mental status grossly normal Skin no rashes or lesions noted MDM MDM MDM Narrative Medical decision making narrative: Patient presented to the ER with stable vitals and spontaneously improving symptoms with NIH stroke scale score of 0 upon arrival. However based on her previous history of stroke and TIAs I did elect to perform a stroke work-up thatincluded a CT and CTA. Stroke alert was activated upon her arrival secondary toconcern for this. Lab work revealed no clinically significant findings and her CT and CTA also revealed no acute bleed mass or significant flow-limiting stenosis or obstruction. On reevaluation her stroke scale score remains 0 and patient feels normal with stable vitals. She was evaluated by the telemetry neurologist and they agree that there is no need for tPA based on her rapidly improving symptoms and negative imaging studies. They feel that patient could undergo admission for further testing such as carotid duplex and MRI but also notes that she has had these tests recently and most likely would not change hertreatment options/strategy as she is already on aspirin and Plavix. I discussedthe patient's work-up with her and her and at this time as her symptoms have spontaneous resolved and she is already on treatment for this they would like to pursue further evaluation on outpatient basis and therefore patient be discharged at this time. History & Record Review Discussion w/independent historian: EMS personnel, Patient and Significant other Lab Data Attestation: I reviewed the patient's lab results. Labs: Laboratory Results - last 24 hr 10/12/22 10/12/22 10/12/22 22:15 22:15 22:15 WBC 5.3 RBC 3.87 L Hgb 11.3 L Hct 34.4 L MCV 88.9 MCH 29.2 MCHC 32.8 RDW Std Deviation 49.9 H RDW Coeff of Kierra 15.2 H Plt Count 205 MPV 9.2 Immature Gran % (Auto) 0.400 Neut % (Auto) 60.2 Lymph % (Auto) 20.2 Walsh % (Auto) 16.6 H Eos % (Auto) 1.7 Baso % (Auto) 0.9 Absolute Neuts (auto) 3.2 Absolute Lymphs (auto) 1.07 Nucleated RBC % 0 PT 14.2 INR 1.1 APTT 33.8 Sodium 132 L Potassium 3.3 L Chloride 101 Carbon Dioxide 23.0 Anion Gap 8 BUN 14 Creatinine 0.94 Estim Creat Clear Calc 39.85 Est GFR (MDRD) Af Amer 74 Est GFR (MDRD) Non-Af 61 BUN/Creatinine Ratio 14.9 Glucose 119 H Calcium 8.5 Radiography Diagnostic Testing: Clinical Impression(s) from Imaging Studies Brain CT 10/12/22 22:02 IMPRESSION: No acute abnormality. Electronically Signed: Jim Montes DO at 22:22 EDT , ADDENDUM: 10/12/222228 IMPRESSION: No acute abnormality. N.B. : The above Results were Read Back by Jim Montes DO to Yoel Cam DO, and understanding confirmed on 10/12/2022 22:22:29 (ET). Electronically Signed: Jim Montes DO at 22:22 EDT , Head/Neck CTA 10/12/22 22:08 IMPRESSION: 1. No evidence of intracranial arterial [...] 5. Centrilobular emphysematous changes of the lungs. Electronically Signed: Jim Montes DO at 22:44 EDT , Chest X-Ray 10/12/22 22:30 IMPRESSION: No evidence of active intrathoracic disease. Electronically Signed: Fay Shannon MD at 23:02 EDT , 1 view chest x-ray as interpreted by the emergency medicine physician reveals noacute infiltrate pneumothorax or pleural effusion Management Discussion w/another healthcare provider: Pensionholder Information Clerk Discharge Plan Triage Chief Complaint: Stroke Alert ED Provider: Yoel Cam Dx/Rx/DC Orders Clinical Impression: TIA (transient ischemic attack), HTN (hypertension), HLD (hyperlipidemia) Instructions: ED TIA: Transient Ischemic Attack Prescriptions: No Action fluoxetine 20 MG capsule 20 mg PO QHS levocetirizine 5 MG tablet 5 mg PO QHS losartan 100 MG tablet 100 mg PO DAILY Qty: 30 0RF hydrochlorothiazide 25 MG tablet 12.5 mg PO DAILY Qty: 15 0RF metoprolol tartrate 50 MG tablet 50 mg PO BID Qty: 60 0RF aspirin 81 mg Tablet,Chewable 81 mg PO BREAKFAST Qty: 0 0RF atorvastatin 20 mg Tablet 20 mg PO QHS Qty: 30 0RF clopidogrel 75 mg Tablet 75 mg PO DAILY Qty: 30 0RF magnesium 500 mg Tablet 500 mg PO DAILY Primary Care Provider: Jose Hdz Referrals: Jose Hdz MD [Primary Care Provider] - Activity Restrictions/Additional Instructions: Continue your aspirin and Plavix and follow-up with a neurologist to discuss further testing to further delineate if this is recurrent TIAs versus small seizure activity. If you have any further concerns return to the hospital for repeat evaluation Disposition Disposition: Home, Self Care What to do if you have Problems For any increased pain, shortness of breath, bleeding, nausea or vomiting, chestpain, or any unexpected problems, contact your Primary Care Provider. Call [facility] ([phone]) or report to the closest Emergency Room. Call 911 if necessary. 10/12/22 2475 <Electronically signed by Yoel Cam DO> Cosigner Signature (if applicable): CC: Dr. Jose Hdz MD ~ Signed [facility] Work Phone: [phone]) 446-686403-15-2023 History of Present illness Narrative* Lila Cobb, OT/L - 06/30/2022 4:21 PM EDT Episode Visit Count: 1 Therapist That Will Accept/Oversee The Plan Of Care: Verito Cobb Start of Care Date: 06/30/22 Onset Date: 06/15/22 (hospital due to speech issues and was diagnosed with stroke) Patient Identified by Name and Date of : Yes REHABILITATION AND SPORTS THERAPY OCCUPATIONAL THERAPY INSTRUMENTAL ADL AND COMMUNITY MOBILITY EVALUATION SUBJECTIVE: Xavier Rahman is a 82 year old female seen [...] his condition so prefers to not drive [place] he is able to. Her verbalized that [...] tasks Driving History: 65 years; has 2021 [employer] which is only vehicle State: [place] License/Permit #: [id number] Expires: 06/06/25 Restrictions: corrective lenses 5 Yr. Violation HX: no 5 Yr. MVA HX: no Handicap Parking Placard: YES 1. Xavier Rahman self report indicates an awareness of: Decreased balance Fatigue, or poor endurance 2. Xavier Rahman expressed confidence regarding driving when driving alone and locally. 3. Xavier Rahman expressed concerns regarding driving at night/decreased light conditions, in congested traffic, on the interstate, in unfamiliar places, and on long trips. OBJECTIVE MEASURES WITH LEVEL OF FUNCTION: SENSORIMOTOR ASSESSMENT: Hand dominance: Right Level of Function Relevant to I ADL, Community Mobility, and Driving: Right UE: Sufficient Left UE: Sufficient Stucco Plasterer: Sufficient Right LE: Sufficient Left LE: Sufficient [...] hearing loss in L ear Visual Scanning/Attention: [place] Making Part B (sec): 161 sec 50th percentile norm for age group: 70-79; Part A: 80 seconds, Part B: 196 seconds Mandeep Clock Drawing Test: Xavier Rahman correctly included 8/8 criteria for this test. [...] COGNITIVE / PERCEPTUAL FUNCTION: Compatible with Driving [place] Acid Strength Inspector Simulator: Simple Brake Reaction Time: Average Distance: 50.7 feet (Normal = 60 feet) R foot only pedal operation method Education: Education Learning Preferences: Explanation Barriers: None Learning/educational needs: Safety, Plan of Care Education Provided: Yes, see treatment interventions for education provided Education Provided To: Patient, Family ( present) Education Mode/Type: Explanation/Discussion Response to Education/Teach Back: States/Identifies TREATMENT: Evaluation Self-[facility] Management: 1: refer to documentation for details [...] this report indicates the ability of 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 Due to the complex nature of the safe operation of a motor vehicle, and considering the demands of integrating changing environmental conditions, and visual, cognitive, and physical skills, successful completion of this program is not a guarantee of safe driving in the future. ASSESSMENT OF INSTRUMENTAL ADL AND COMMUNITY MOBILITY: Xavier Rahman presents with the diagnosis ofCVA. She presents with no significant impairments. She may benefit from skilled occupational therapy services to completed the functional task portion of this assessment-behind the wheel portion. RECOMMENDATIONS: ADL/IADL Recommendations: no recommendations needed Driving Recommendations: REFRAIN FROM DRIVING OUTSIDE OF DRIVERS REHABILITATION WHILE BEHIND THE WHEEL PORTION SCHEDULED FOR 07/07/22 Recommended Complete Eye Exam: as indicated by floor tiling professional Prognosis: Good Good due to: current objective clinical presentation, good overall health status, acuteness of condition, positive past response to therapy, good support system/ coping skills Goals for Episode of Care created on 06/30/22 through 07/09/22 Patient will complete clinical training and/or testing at [place] level in preparation for returning to driving. Patient will complete functional mobility task with good safety awareness during behind the wheel portion of assessment. Planned Interventions, Frequency, and Duration: Current Frequency: 1 visit Duration: 1 visit Total Number of Visits Planned: 1 Patient to be see for Acid Strength Inspector rehab evaluation PLAN FOR NEXT VISIT: completed the behind the wheel portion of this assessment Patient demonstrates good understanding of plan of care and treatment. The above goals and plan of care were discussed and agreed upon by patient/family. Billing: Total Treatment Time Minutes (timed/untimed) 120 minutes Evaluation - Moderate Complexity (49284) Self Care / Home Management (53776): 1:1 time: 30 minutes (2 units: 23-37 mins) Community /Work Re-integration (07116): 1:1 time: 30 minutes (2 units: 23-37 mins) Total time: 120 minutes JEROME Butt, CDRS, CDI Certified Acid Strength Inspector Flow Worker [facility] History and physical note Author Dr. Verdugo [facility] June 13, 2022 10:05pm Note Date/Time June 13, 2022 8:39pm [facility] Medical Records Department [address] [place] [address] History & Physical Exam 06/13/222032 MR#: [id number] Acct: [id number] Name: XAVIER RAHMAN Rep #:[id number] : 1940 82 From: Emily Verdugo MD PCP: Dr. Jose Hdz MD Status:ADM IN Location: [place] [id number]- HPI - General General Date of Admission: 06/13/22 Date of Service: 06/13/22 Chief Complaint: Acutely altered mental status with slurred speech above baseline. HPI Narrative The patient is an 82 y/o F w/ PMHx: RLS, COPD, Allergic rhinitis, Alzheimer's disease with dementia noted to be early stage, HTN, HLD, Hypothyroidism, OA, Hx Ductal carcinoma R breast s/p lumpectomy, Former tobacco use, Chronic dysarthria, GERD w/ Hx GI bleed who presents to the [facility] ED on 06/13/22 with history of onset altered mental status with slurred speech with reported historyof significant insomnia with administration by the family approximately 2 days prior and edible THC to help her sleep awakening yesterday with slurred speech, drooling and confusion with noted slow responses with patient notifying her family this afternoon that she did not feel right prompting eventual ED evaluation. Per report also patient has a chronic cough but over the last few months its apparently been more productive but no fevers or chills or marked dyspnea. In the ED NIH stroke no is negative for any continued new neurologicaldeficits or changes. Family in the ED does believe that she is back to her baseline. While in the ED she does complain of several muscle cramps to her lower extremities which improved when she sits on the side of the bed. Work-up in the ED included T98.2, heart rate 87, BP initially 201/99 with most recent repeat 144/77, respiratory rate 14, 99% on room air, CBC with WC 7.1, .3, platelet 270 without any differential performed, unremarkable coags, CMP with sodium 133, chloride 96, glucose 111 otherwise unremarkable, urinalysis with no obvious evidence of UTI, UDS unremarkable, SARS COVID and influenza antigens negative, chest x-ray with no acute cardiopulmonary findings, CT of thebrain with evidence of recent acute right parietal infarct with microvascular ischemic changes and atrophy, EKG SR rate 79 without acute evidence of ischemia. In the ED patient ministered Tylenol 1000 mg p.o. x1 and 1 L normal saline bolus as well as ASA full strength. [facility] Medical History (Updated 06/13/22 @ 21:[address] Emily Verdugo MD) Alzheimer's dementia Anxiety and depression Arthritis COPD (chronic obstructive pulmonary disease) Ductal carcinoma in situ (DCIS) of right breast GERD (gastroesophageal reflux disease) History of GI bleed HTN (hypertension) Hypercholesterolemia Hypothyroidism Vitamin D deficiency Home Medications albuterol sulfate 90 mcg/actuation aerosol inhaler 2 puff inhalation Q4H PRN PRNSob &/Or Wheezing 11/02/18 [History Last Taken Unknown] fluoxetine 20 mg capsule 20 mg PO QHS depression 11/26/19 [History Last Taken Unknown] levocetirizine 5 mg tablet 5 mg PO QHS Check with primary doctor 11/26/19 [History Last Taken 11/25/19 22:00] magnesium oxide 400 mg PO DAILY suppliment 11/26/19 [History Last Taken 11/25/19 08:00] hydrochlorothiazide 25 mg tablet 12.5 mg PO DAILY #15 tabs 11/27/19 [Rx Last Taken Unknown] losartan 100 mg tablet 100 mg PO DAILY #30 tabs 11/27/19 [Rx Last Taken Unknown] metoprolol tartrate 50 mg tablet 50 mg PO BID #60 tabs 11/27/19 [Rx Last Taken Unknown] Allergy/AdvReac Type Severity Reaction Status Date / Time atorvastatin [From Lipitor] Allergy Mild muscle Verified 06/13/22 17:13 aches lisinopril Allergy Mild cough Verified 06/13/22 17:13 rosuvastatin [From Crestor] Allergy Mild muscle Verified 06/13/22 17:13 aches alendronate sodium Allergy Unknown unknown Verified 06/13/22 17:13 [From Fosamax] Sulfa (Sulfonamide Allergy Rash Verified 06/13/22 17:13 Antibiotics) codeine AdvReac Nausea Verified 06/13/22 17:13 NSAIDS (Non-Steroidal AdvReac Bleeding Verified 06/13/22 17:13 Anti-Inflamma Ugkiaja-GCP-CrQ Reductase AdvReac Other Verified 06/13/22 17:13 Inhibitor [[place]-Aye-Aop Reductase Inhibitor] Family History Mother Heart disease CVA (cerebral vascular accident) Father Heart disease Surgical History (Updated 06/13/22 @ 20:[address] Emily Verdugo MD) History of hysterectomy History of left mastoidectomy History of lumpectomy of right breast History of right hip replacement History of right hip replacement History of thyroid surgery Social History (Updated 06/13/22 @ 20:[address] Emily Verdugo MD) household members: spouse Smoking Status: Former smoker how long ago did patient quit smoking: Quit ~ 24-25 years prior. alcohol intake: current alcohol intake frequency: a few times a month details: 1 drink/[place] nightly. substance use type: other details: Given THC chew per her family for sleep but prior no substance use. ROS ROS Narrative Admission Review of Systems: CONSTITUTIONAL: No weight loss, fever, chills, + weakness or fatigue. HEENT: Eyes: No visual loss, blurred vision, double vision or yellow sclerae. Ears, Nose, Throat: No hearing loss, sneezing, congestion, runny nose or sore throat. SKIN: No rash or itching, lesions, wounds. CARDIOVASCULAR: No chest pain, chest pressure or chest discomfort, palpitations,edema, orthopnea, syncopal events. RESPIRATORY: No shortness of breath, cough or sputum, wheezing, hemoptysis. GASTROINTESTINAL: No anorexia, nausea, vomiting or diarrhea, abdominal pain, melena, BRBPR. GENITOURINARY: No dysuria, frequency, urgency or retention. NEUROLOGICAL: + Chronic dysarthria with transient increased slurred speech, now back at baseline, increased lethargy/confusion with drooling, unclear if facial droop also transient, no resolved. No headache, dizziness, syncope, paralysis, ataxia, numbness or tingling in the extremities, focal weakness, change in bowelor bladder control, seizure. MUSCULOSKELETAL: + muscle, back pain, joint pain or stiffness. HEMATOLOGIC: No anemia, bleeding or bruising. LYMPHATICS: No enlarged nodes. No history of splenectomy. PSYCHIATRIC: + history of depression or anxiety. ENDOCRINOLOGIC: No reports of sweating, cold or heat intolerance. No polyuria orpolydipsia. ALLERGIES: + history of rhinitis. Vital Signs Vital Signs Vital Signs: 06/13/22 17:10 06/13/22 17:24 06/13/22 20:03 Temperature 98.2 F Temperature Source Temporal Pulse Rate 87 80 Respiratory Rate 14 15 Blood Pressure 201/99 H 120/99 H 144/74 H Blood Pressure Mean 133 106 97 Pulse Ox 99 98 Oxygen Delivery Method Room Air Room Air Weight Weight: 133 lb 8 oz Body Mass Index (BMI) 23.6 Physical Exam Narrative Physical Examination: General: Awake, alert, oriented to place, person, year, month and president, does have altered speech which family notes is currently at her baseline, she iscooperative and interactive, intermittently having muscle cramping of her lower extremity during evaluation. Skin: Normal color, normal turgor, no icterus, no cyanosis. HEENT: AT/NC, EOMI, PERRLA, moderately dry MM, no carotid bruits or JVD noted. Lungs: CTA bilaterally, moderate effort, mild decrease BL bases, no rales, ronchi or wheezing. Heart: Currently regular rate and rhythm; no gallop, rub audible. Abdomen: Soft, NTTP, ND, mildly hyperactive BS, no HSM. Extremities: No cyanosis, no clubbing, no edema, intermittent especially right lower extremity cramps during evaluation Neurological: Patient awake, alert, oriented as noted, cognitive function appears improved, now per family appears based intact; pupils equally reactive to light and accommodation, cranial nerves II-XII grossly normal, moving all 4 extremities, no focal deficits, strength difficult to assess as patient frequently having muscle cramps and spasms during evaluation, sensation intact, finger-nose appropriate, difficulty performing [id number]-bk-czqg secondary to severity of extremity cramping, equivocal Babinski Psychiatric: Affect appears uncomfortable with muscle cramping otherwise no acute distress, no acute evidence of depressive or anxiety feelings but does have underlying history and significant issues with insomnia per family and patient discussion. Results Lab / Micro Data Result Diagrams: 06/13/22 17:47 06/13/22 17:47 Labs: Laboratory Results - last 24 hr 06/13/22 17:47: WBC 7.1, RBC 4.71, Hgb 13.3, Hct 41.1, MCV 87.3, MCH 28.2, MCHC 32.4, RDW Std Deviation 46.8 H, RDW Coeff of Kierra 14.6, Plt Count 270, MPV 10.9 06/13/22 17:47: Sodium 133 L, Potassium 3.5, Chloride 96 L, Carbon Dioxide 26.0,Anion Gap 11, BUN 10, Creatinine 0.82, Estim Creat Clear Calc 43.76, Est GFR (MDRD) Af Amer 86, Est GFR (MDRD) Non-Af 71, BUN/Creatinine Ratio 12.2, Glucose 111 H, Calcium 10.0, Total Bilirubin 0.50, AST 31, ALT 23, Alkaline Phosphatase 79, Total Protein 8.4 H, Albumin 4.2, Globulin 4.2, Albumin/Globulin Ratio 1.0 06/13/22 18:52: Urine Color Yellow, Urine Clarity Clear, Urine pH 7.0, Ur Specific [place] 1.005, Urine Protein Negative, Urine Glucose (UA) Normal, UrineKetones Negative, Urine Occult Blood Negative, Urine Nitrite Negative, Urine Bilirubin Negative, Urine Urobilinogen Normal, Ur Leukocyte Esterase Negative, Urine RBC 0 SEEN, Urine WBC 0 SEEN, Ur Squamous Epith Cells 0-5 SEEN, Urine Bacteria 0 SEEN, Urine Mucus 0 SEEN 06/13/22 18:52: Urine Opiates Screen NEGATIVE, Urine Methadone Screen NEGATIVE, Ur Barbiturates Screen NEGATIVE, Ur Phencyclidine Scrn NEGATIVE, Ur AmphetaminesScreen NEGATIVE, MDMA (Ecstasy) Screen NEGATIVE, U Benzodiazepines Scrn NEGATIVE, Urine Cocaine Screen NEGATIVE, U Cannabinoids Screen NEGATIVE, Ur DrugScreen Comment 06/13/22 19:57: PT 13.4, INR 1.1, APTT 26.2 Micro: Microbiology 06/13/22 18:21 Nasal Secretion SARS-CoV-2 & FLU Antigen (Rapid) - Final Radiology Impression Brain CT 06/13/22 17:35 IMPRESSION: Acute right parietal infarct. Microvascular ischemic changes. Atrophy. Electronically Signed: Janna Das MD at 19:27 EST Reading Location ID and State: Nadir Auguste MD Tel , Service support , ADDENDUM: 06/13/22 194 IMPRESSION: Acute right parietal infarct. Microvascular ischemic changes. Atrophy. N.B. : The above Results were Read Back by Janna Das MD to Charles Contreras MD, and understanding confirmed on 06/13/2022 19:39:30 (ET). Electronically Signed: Janna Das MD at 19:27 EST Reading Location ID and State: Nadir Auguste MD Tel , Service support , Chest X-Ray 06/13/22 17:55 IMPRESSION: No acute cardiopulmonary disease. Electronically Signed: Janna Das MD at 18:44 EST Reading Location ID and State: [id number] / Tel , Service support , Assessment & Plan Assessment/Plan (1) CVA (cerebral vascular accident): PLAN: Plan The patient is an 82 y/o F w/ PMHx: RLS, COPD, Allergic rhinitis, Alzheimer's disease with dementia noted to be early stage, HTN, HLD, Hypothyroidism, OA, Hx Ductal carcinoma R breast s/p lumpectomy, Former tobacco use, Chronic dysarthria, GERD w/ Hx GI bleed who presents to the [facility] ED on 06/13/22 with history of onset altered mental status with slurred speech with reported historyof significant insomnia with administration by the family approximately 2 days prior and edible THC to help her sleep awakening yesterday with slurred speech, drooling and confusion with noted slow responses with patient notifying her family this afternoon that she did not feel right prompting eventual ED evaluation. #1. Acute encephalopathy, increased above her baseline slurred speech with underlying chronic dysarthria of note and given history of drooling possible transient facial droop secondary to acute right parietal infarct and possibly concurrent THC usage: Will admit to PCU, will obtain MRI Brain, CTA head and Neck, ECHO with bubble study, PT/OT/Speech/Nutrition evaluation per protocol. Given timeline of recent symptoms and acute findings on CT will allow permissiveHTN, maintain on asa, statin intolerance history noted, fall precautions, magnesium/TSH/hemoglobin A1c/FLP pending. #2. COPD with chronic cough, worsened: CXR without acute findings and patient outpatient per review of medications has previously been on inhalers, does not appear to have recently been filled but likely associated with her complaints, will add budesonide scheduled, will have as needed albuterol if necessary, encourage I-S and head of bed and if able will obtain sputum Cx. #3. Hypertension: We will maintain permissive hypertension with as needed agents per stroke protocol. #4. Hyperlipidemia: Unfortunately patient has noted statin intolerance with significant myalgias, FLP in AM. #5. Acute bilateral lower extremity, muscle cramps: Lengthy discussion, will judiciously hydrate, magnesium level pending, will have very low-dose as needed tizanidine for severe cramps and muscle spasms. Maintain on fall precautions asnoted. #6. History of ductal carcinoma: Patient status post right breast lumpectomy, considered in remission. #7. Anxiety and depression with chronic insomnia: We will continue patient homemirtazapine regimen. Previously per records had been on fluoxetine but does notappear to have been refilled recently and transition to mirtazapine but clarifying. Given ongoing significant insomnia recommended strongly that they avoid giving patient THC and may need to consider a low-dose trazodone or alternate regimen but would prefer not to do in the acute phase especially givenmuscle cramping. #8. Allergic rhinitis: We will continue patient home levocetirizine regimen. #9. Hypothyroidism: Reported per history however not on any levothyroxine or Synthroid, previously noted thyroid nodule resection, TSH pending as noted. #10. Former tobacco use: Encourage continued tobacco cessation #11. GERD with history GI bleed previous: Noted remote GI bleed history 2019, we will continue patient home PPI. #12. Restless leg syndrome: Patient previously on Neurontin and also noted prior prescription for Mirapex, does not appear recently filled. #13. Alzheimer's disease with dementia noted to be early stage: No reported behavioral disturbance history but patient has significant insomnia, will maintain on fall and aspiration precautions, therapies consulted as well as casemanagement for discharge planning. #14. DVT prophylaxis: Lovenox. #15. CODE status: Patient HCPOA is her who is present and her daughter who is secondary who is also present and living will is currently in place. Discussed CODE status at length including difference between FULL code, DNR-CCA and DNR-CC status. Following discussions about the differences in these status, requested DNR-CCA, no intubation status. Advanced Care Planning Face to Face Time: 16 minutes. Admission Evaluation Time spent evaluating chart, patient history, patient evaluation, care planning and discussion with specialists: 75 minutes. Charges/Coding Visit Charges Inpatient E&M: 13726 Init Hosp L3 Procedures Hospitalists Procedures: 90550 Advncd Care Plan 30 Min 06/13/22 4842 <Electronically signed by Emily Verdugo MD> Cosigner Signature (if applicable): CC: Dr. Emily Verdugo MD; Dr. Jose Hdz MD~ Signed [facility] Work Phone: [phone]) 764-872202-26-[address] Contreras [facility] June 13, 2022 8:58pm Note Date/Time June 13, 2022 5:55pm [facility] Medical Records Department [address] [place] [address] Emergency Department Summary 06/13/22 MR#: [id number] Acct: [id number] Name: XAVIER RAHMAN Rep #:[id number] : 1940 82 From: Charles Contreras MD PCP: Dr. Jose Hdz MD Status:ADM IN Location: [address] History of Present Illness Chief Complaint: Confusion Narrative Narrative: 82-year-old female past medical history of Alzheimer's dementia, early-stage diagnosed for a few years, presents with mental status change and slurred speech. She has had problems with insomnia, and it was reported by her daughterthat the patient's eldest daughter gave her an edible THC 2 days ago to help hersleep. Patient claims it was only a quarter of an edible, but the daughter that is present is unsure how many she had actually taken. She woke up yesterday with slurred speech, drooling, and confusion. While it was reported that the patient always has baseline slurred speech, yesterday she was very slowto respond. Patient has not slept well for [...] fevers or chills. No dysuria or hematuria. Shesomewhat sarcastically states that she is here because she is confused. [facility] Medical History (Updated 06/13/22 @ 20:58 by Charles Contreras MD) Alzheimer's dementia Anxiety and depression Arthritis COPD (chronic obstructive pulmonary disease) Ductal carcinoma in situ (DCIS) of right breast GERD (gastroesophageal reflux disease) History of GI bleed HTN (hypertension) Hypercholesterolemia Hypothyroidism Vitamin D deficiency Home Medications albuterol sulfate 90 mcg/actuation aerosol inhaler 2 puff inhalation Q4H PRN PRNSob &/Or Wheezing 11/02/18 [History Last Taken Unknown] gamzmbqh-qeb-alsql ac 400 mcg-calcium carb 500 mg-vit K1 20 mcg tablet 1 ea PO BID VITAMIN 11/02/18 [History Last Taken 11/25/19 08:00] fluoxetine 20 mg capsule 20 mg PO QHS depression 11/26/19 [History Last Taken Unknown] levocetirizine 5 mg tablet 5 mg PO QHS Check with primary doctor 11/26/19 [History Last Taken 11/25/19 22:00] magnesium oxide 400 mg PO DAILY suppliment 11/26/19 [History Last Taken 11/25/19 08:00] potassium citrate 10 mEq (1,080 mg) tablet,extended release 1,080 mg PO DAILY suppliment 11/26/19 [History Last Taken Unknown] hydrochlorothiazide 25 mg tablet 12.5 mg PO DAILY #15 tabs 11/27/19 [Rx Last Taken Unknown] losartan 100 mg tablet 100 mg PO DAILY #30 tabs 11/27/19 [Rx Last Taken Unknown] metoprolol tartrate 50 mg tablet 50 mg PO BID #60 tabs 11/27/19 [Rx Last Taken Unknown] Allergy/AdvReac Type Severity Reaction Status Date / Time atorvastatin [From Lipitor] Allergy Mild muscle Verified 06/13/22 17:13 aches lisinopril Allergy Mild cough Verified 06/13/22 17:13 rosuvastatin [From Crestor] Allergy Mild muscle Verified 06/13/22 17:13 aches alendronate sodium Allergy Unknown unknown Verified 06/13/22 17:13 [From Fosamax] Sulfa (Sulfonamide Allergy Rash Verified 06/13/22 17:13 Antibiotics) codeine AdvReac Nausea Verified 06/13/22 17:13 NSAIDS (Non-Steroidal AdvReac Bleeding Verified 06/13/22 17:13 Anti-Inflamma Owtkbgg-JKB-DxT Reductase AdvReac Other Verified 06/13/22 17:13 Inhibitor [Givmkua-Esb-Gvp Reductase Inhibitor] Family History Mother Heart disease CVA (cerebral vascular accident) Father Heart disease Surgical History (Updated 06/13/22 @ 20:[address] Emily Verdugo MD) History of hysterectomy History of left mastoidectomy History of lumpectomy of right breast History of right hip replacement History of right hip replacement History of thyroid surgery Social History (Updated 06/13/22 @ 20:[address] Emily Verdugo MD) household members: spouse Smoking Status: Former smoker how long ago did patient quit smoking: Quit ~ 24-25 years prior. alcohol intake: current alcohol intake frequency: a few times a month details: 1 drink/[place] nightly. substance use type: other details: Given THC chew per her family for sleep but prior no substance use. ROS ROS ED ROS Narrative Constitutional: No fever, no chills. HEENT: No sore throat. No neck pain. No loss of vision. No rhinorrhea. Cardiovascular: No chest pain. No palpitations. No pedal edema. Respiratory: No cough, no shortness of breath. Abdominal: No abdominal pain. No nausea. No vomiting. Genitourinary: No dysuria. No hematuria. Musculoskeletal: No myalgias. No arthralgias. Neurologic: No headaches. No dizziness. No lightheadedness. Reported confusion, slurred speech, and drooling yesterday. Skin: No rash. No change in color. Psychiatric: No depression. No anxiety. Positive insomnia. EXAM Physical Exam Narrative Exam Narrative: Afebrile. Vital signs noted. HEENT: Normocephalic. Atraumatic. PERRL, EOMI. Neck soft and supple. No pointtenderness or step off. Cardiovascular: Regular rate and rhythm. No murmurs, rubs, or gallops appreciated. Respiratory: No tachypnea. Lungs clear to auscultation bilaterally. Gastrointestinal: Abdomen soft, nontender, with normoactive bowel sounds. No rebound or guarding. Neurological: Awake. Alert. Nonfocal, nonlateralizing. NIH stroke scale is 0, however she may have slightly slurred speech, but according to her daughter thisis baseline. Skin: No rash. Normal color. No pallor. Musculoskeletal: No pedal edema. Full range of motion extremities. Const Vital Signs: 06/13/22 17:10 06/13/22 17:24 06/13/22 20:03 Temperature 98.2 F Temperature Source Temporal Pulse Rate 87 80 Respiratory Rate 14 15 Blood Pressure 201/99 H 120/99 H 144/74 H Blood Pressure Mean 133 106 97 Pulse Ox 99 98 Oxygen Delivery Method Room Air Room Air MDM MDM MDM Narrative Medical decision making narrative: I do feel that there may be some component of dementia, in combination with the use of the edible THC products that is causing the patient's symptoms. While she states that she took it 2 days ago, it is unsure if she had taken more, or even any today. Comprehensive work-up was pursued. I will obtain a CT of the brain to make sure she does not have a stroke that would show up on CT, althoughher NIH stroke scale is 0. I will look for signs of infection in the urine or pneumonia that could be causing a mental status change. I also obtained a urinefor drugs of abuse. CMP was obtained to look for electrolyte imbalance or dehydration. She will be bolused normal saline 1 L intravenously. Chest x-ray interpreted by myself shows no evidence of an acute cardiopulmonary process, no pneumonia, no pneumothorax. I reviewed the radiology report which confirms this. In review of her laboratories, she has a normal white count of 7.1, hemoglobin normal at 13.3 hematocrit 41.1. Platelet count normal at 270. Sodium slightly low at 133 with a chloride of 96. BUN and creatinine are normal. Urinalysis shows no evidence of infection. I do not feel antibiotics are indicated. Urine for drugs of abuse is negative. CT of the brain does showan acute right parietal stroke. Her NIH stroke scale is 0. Coags were added. She passed her dysphagia screen. She was complaining of leg cramping and thigh cramping so she is given Tylenol. She has allergies to NSAIDs, however I discussed patient with Dr. Verdugo for admission to the PCU for her acute stroke. She requested that she be given aspirin. I feel she can be admitted for furtherwork-up of her stroke. Disposition is admit in stable condition. Lab Data Attestation: I reviewed the patient's lab results. Labs: Laboratory Results - last 24 hr 06/13/22 06/13/22 06/13/22 17:45 17:47 17:47 WBC 7.1 RBC 4.71 Hgb 13.3 Hct 41.1 MCV 87.3 MCH 28.2 MCHC 32.4 RDW Std Deviation 46.8 H RDW Coeff of Kierra 14.6 Plt Count 270 MPV 10.9 PT INR APTT Sodium 133 L Potassium 3.5 Chloride 96 L Carbon Dioxide 26.0 Anion Gap 11 BUN 10 Creatinine 0.82 Estim Creat Clear Calc 43.76 Est GFR (MDRD) Af Amer 86 Est GFR (MDRD) Non-Af 71 BUN/Creatinine Ratio 12.2 Glucose 111 H Calcium 10.0 Magnesium 2.0 Total Bilirubin 0.50 AST 31 ALT 23 Alkaline Phosphatase 79 Total Protein 8.4 H Albumin 4.2 Globulin 4.2 Albumin/Globulin Ratio 1.0 Urine Color Urine Clarity Urine pH Ur Specific [place] Urine Protein Urine Glucose (UA) Urine Ketones Urine Occult Blood Urine Nitrite Urine Bilirubin Urine Urobilinogen Ur Leukocyte Esterase Urine RBC Urine WBC Ur Squamous Epith Cells Urine Bacteria Urine Mucus Urine Opiates Screen Urine Methadone Screen Ur Barbiturates Screen Ur Phencyclidine Scrn Ur Amphetamines Screen MDMA (Ecstasy) Screen U Benzodiazepines Scrn Urine Cocaine Screen U Cannabinoids Screen Ur Drug Screen Comment 06/13/22 06/13/22 06/13/22 18:52 18:52 19:57 WBC RBC Hgb Hct MCV MCH MCHC RDW Std Deviation RDW Coeff of Kierra Plt Count MPV PT 13.4 INR 1.1 APTT 26.2 Sodium Potassium Chloride Carbon Dioxide Anion Gap BUN Creatinine Estim Creat Clear Calc Est GFR (MDRD) Af Amer Est GFR (MDRD) Non-Af BUN/Creatinine Ratio Glucose Calcium Magnesium Total Bilirubin AST ALT Alkaline Phosphatase Total Protein Albumin Globulin Albumin/Globulin Ratio Urine Color Yellow Urine Clarity Clear Urine pH 7.0 Ur Specific [place] 1.005 Urine Protein Negative Urine Glucose (UA) Normal Urine Ketones Negative Urine Occult Blood Negative Urine Nitrite Negative Urine Bilirubin Negative Urine Urobilinogen Normal Ur Leukocyte Esterase Negative Urine RBC 0 SEEN Urine WBC 0 SEEN Ur Squamous Epith Cells 0-5 SEEN Urine Bacteria 0 SEEN Urine Mucus 0 SEEN Urine Opiates Screen NEGATIVE Urine Methadone Screen NEGATIVE Ur Barbiturates Screen NEGATIVE Ur Phencyclidine Scrn NEGATIVE Ur Amphetamines Screen NEGATIVE MDMA (Ecstasy) Screen NEGATIVE U Benzodiazepines Scrn NEGATIVE Urine Cocaine Screen NEGATIVE U Cannabinoids Screen NEGATIVE Ur Drug Screen Comment Radiography Diagnostic Testing: Clinical Impression(s) from Imaging Studies Brain CT 06/13/22 17:35 IMPRESSION: Acute right parietal infarct. Microvascular ischemic changes. Atrophy. Electronically Signed: Janna Das MD at 19:27 EST Reading Location ID and State: [place] / Tel , Service support , ADDENDUM: 06/13/22 194 IMPRESSION: Acute right parietal infarct. Microvascular ischemic changes. Atrophy. N.B. : The above Results were Read Back by Janna aDs MD to Charles Contreras MD, and understanding confirmed on 06/13/2022 19:39:30 (ET). Electronically Signed: Janna Das MD at 19:27 EST Reading Location ID and State: [place] / Tel , Service support , Chest X-Ray 06/13/22 17:55 IMPRESSION: No acute cardiopulmonary disease. Electronically Signed: Janna Das MD at 18:44 EST Reading Location ID and State: [place] / Tel , Service support , Discharge Plan Dx/Rx/DC Orders Clinical Impression: Acute stroke due to ischemia, Hyponatremia, Confusion Disposition Disposition: Acute Care Hospital [facility] What to do if you have Problems For any increased pain, shortness of breath, bleeding, nausea or vomiting, chestpain, or any unexpected problems, contact your Primary Care Provider. Call [facility] ([phone]) or report to the closest Emergency Room. Call 911 if necessary. 06/13/222057 <Electronically signed by Charles Contreras MD> Cosigner Signature (if applicable): CC: Dr. Jose Hdz MD ~ Signed [facility] Work Phone: Discharge summary Author Dr. Jamison [facility] June 15, 2022 11:32am Note Date/Time June 15, 2022 11:20am [facility] Medical Records Department [address] [place] [address] Instructions for Home/Discharge Instructions 06/15/22 1119 MR#: [id number] Acct: [id number] Name: XAVIER RAHMAN Rep #:[id number] : 1940 82 From: Guille Jamison DO PCP: Dr. Jose Hdz MD Status:ADM IN Discharge Instructions Diet Discharge Diet: No restrictions Activity Discharge Activity: Return to Normal Activity and - (do not drive until you follow up with your family doctor) Weight Bearing Status: Full weight bearing Follow Up Care Test Results: Test results from this visit will be discussed in further detail at your follow- up appointment, if applicable. Discharge Plan Admission Admit Date/Time: 06/13/22 20:38 Primary Reason for Your Visit: acute stroke Attending Provider: Guille Jamison Primary Care Provider: Jose Hdz Consulting Providers: Emily Verdugo Instructions Additional Instructions / Restrictions: You will get a 30 day monitor in the mail-if you need help applying it, contact your family doctor Discharge Orders/Prescriptions Prescriptions: New aspirin 81 mg Tablet,Chewable 81 mg PO BREAKFAST Qty: 0 0RF atorvastatin 20 mg Tablet 20 mg PO QHS Qty: 30 0RF clopidogrel 75 mg Tablet 75 mg PO DAILY Qty: 30 0RF Continued albuterol sulfate 1 INHALER inhaler 2 puff inhalation Q4H PRN PRN (Reason: Sob &/Or Wheezing) fluoxetine 20 MG capsule 20 mg PO QHS levocetirizine 5 MG tablet 5 mg PO QHS magnesium oxide 400 MG capsule 400 mg PO DAILY losartan 100 MG tablet 100 mg PO DAILY Qty: 30 0RF hydrochlorothiazide 25 MG tablet 12.5 mg PO DAILY Qty: 15 0RF metoprolol tartrate 50 MG tablet 50 mg PO BID Qty: 60 0RF Other Ambulatory Orders: 30 Day Event Recorder Preventi (Routine) Timeframe: 1 Day Facility: [facility] - Location: Cardiovascular Services Ordered By: Dr. Guille Jamison Referrals / Follow Up: Jose Hdz MD [Primary Care Provider] - Within 1 Week Disposition Disposition (needs filled in before D/C Order can be placed): Home, Self Care 06/15/22 1132<Electronically signed by Guille Jamison DO>Guille Jamison DO CC: Dr. Emily Verdugo MD; Dr. Jose Hdz MD ~ Signed [facility] Work Phone: Discharge summary Author Bernadette Javier [facility] June 28, 2023 3:17pm Note Date/Time June 28, 2023 3:[address] [facility] Medical Records Department [address] [place] [address] Instructions for Home/Discharge Instructions 06/28/23 1517 MR#: [id number] Acct: [id number] Name: XAVIER RAHMAN Rep #:[id number] : 1940 83 From: Bernadette Javier MD PCP: Dr. Jose Hdz MD Status:ADM NICOLASA Discharge Instructions Diet Discharge Diet: Low fat / Low cholesterol Activity Discharge Activity: Return to Normal Activity Weight Bearing Status: Weight bearing as tolerated Dressing / Incision Call your doctor if you observe: Fever of 101 or Higher, Shortness of breath, Dizziness, Swelling in the ankles, Chest pain, Increased palpitations (irregularheartbeat) and - (frequent falls) Follow Up Care Test Results: Test results from this visit will be discussed in further detail at your follow- up appointment, if applicable. Discharge Plan Admission Admit Date/Time: 06/26/23 21:08 Primary Reason for Your Visit: debility, mechanical falls Attending Provider: Bernadette Javier Primary Care Provider: Jose Hdz Consulting Providers: Emily Verdugo Instructions Patient Instructions: ED Mechanical Fall Discharge Orders/Prescriptions Prescriptions: Continued aspirin 81 mg Tablet,Chewable 81 mg PO BREAKFAST Qty: 0 0RF clopidogrel 75 mg Tablet 75 mg PO DAILY Qty: 30 0RF mirtazapine 15 mg tablet 7.5 mg PO DAILY Patient Comments: TAKE 1/2 TO 1 (ONE-HALF TO ONE) TABLET BY MOUTH AT BEDTIME pantoprazole 40 mg tablet,delayed release (DR/EC) 40 mg PO DAILY pramipexole 1.5 mg tablet 1.5 mg PO DAILY Patient Comments: TAKE 1 TABLET 2 TO 3 HOURS BEFORE BEDTIME FOR RESTLESS LEGS valsartan-hydrochlorothiazide 320-25 mg tablet 1 tab PO DAILY memantine 10 mg tablet 10 mg PO DAILY trazodone 50 mg tablet 50 mg PO QHS atorvastatin 40 mg tablet 40 mg PO QHS chlorpheniramine maleate [Allergy (chlorpheniramine)] 4 mg tablet 4 mg PO QHS amlodipine 5 mg tablet 5 mg PO DAILY albuterol sulfate [Ventolin HFA] 90 mcg/actuation HFA aerosol inhaler 1 - 2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 Date/Time: 07/15/24 18:10 Primary Reason for Your Visit: bloody stools Attending Provider: Brodie Swartz Primary Care Provider: Jose Hdz Consulting Providers: Brad Winslow; Leonora Mojica Instructions Additional Instructions / Restrictions: Please start taking a baby aspirin daily and stop taking Plavix. You can also stop taking the potassium supplement. Continue your other home indications as normal. Follow-up with your primary care doctor as needed. Discharge Orders/Prescriptions Prescriptions: New aspirin 81 mg capsule 81 mg PO DAILY 30 Days Qty: 30 0RF Continued pramipexole 1.5 mg tablet 1.5 mg PO DAILY Patient Comments: TAKE 1 TABLET 2 TO 3 HOURS BEFORE BEDTIME FOR RESTLESS LEGS valsartan-hydrochlorothiazide 320-25 mg tablet 1 tab PO DAILY memantine 10 mg tablet 10 mg PO DAILY amlodipine 5 mg tablet 5 mg PO DAILY escitalopram oxalate 5 mg tablet 5 mg PO QPM diphenhydramine-acetaminophen [Acetaminophen PM] 25-500 mg tablet 1 tab PO QHS PRN (Reason: sleep) pantoprazole 40 mg Tablet,Delayed Release (Dr/Ec) 40 mg PO BID 30 Days Qty: 60 2RF Discontinued clopidogrel 75 mg Tablet 75 mg PO DAILY Qty: 30 0RF potassium chloride 10 mEq tablet extended release 20 meq PO BID Referrals / Follow Up: Jose Hdz MD [Primary Care Provider] - Disposition Disposition (needs filled in before D/C Order can be placed): Home, Self Care 07/17/24 1057<Electronically signed by Brodie Swartz DO>Brodie Swartz DO CC: Dr. Jose Hdz MD; Dr. Leonora Mojica MD; Brad Winslow DO ~ Signed [facility] Work Phone: Discharge summary Author [facility] [place] Note Date/Time July 17, 2024 11:[address] [facility] Medical Records Department [address] [place] [id number] Discharge Summary 07/17/24 1043 MR#: [id number] Acct: [id number] Name: XAVIER RAHMAN Rep #:[id number] : 1940 84 From: Brodie hdez DO PCP: Dr. Jose Hdz MD Status:ADM NICOLASA Location: [place] [address] Providers Date of Admission: 07/15/24 Date of Discharge: 07/17/24 Primary Care Physician: Dr. Jose Hdz MD Consultations 07/15/24 18:56 Consult: Gastroenterology Routine Consulting Provider: Brad Winslow Reason for Consult: painless bright red blood per rectum x 3 EMERGENT Consult: No MD Notified: Yes Date Notified: 07/15/24 Time Notified: 19:15 Method of Notification: Text Reason For Visit: BRBPR Diagnosis Discharge Diagnosis (1) GI bleed: Status: Acute Code(s): K92.2 - Gastrointestinal hemorrhage, unspecified (2) Anemia: Status: Acute Code(s): D64.9 - Anemia, unspecified Medications at Discharge Home Medications pramipexole 1.5 mg tablet 1.5 mg PO DAILY 10/16/22 valsartan 320 mg-hydrochlorothiazide 25 mg tablet 1 tab PO DAILY 10/16/22 memantine 10 mg tablet 10 mg PO DAILY 04/28/23 amlodipine 5 mg tablet 5 mg PO DAILY 06/11/23 pantoprazole 40 mg tablet,delayed release 40 mg PO BID 30 days #60 tabs 03/25/24 diphenhydramine 25 mg-acetaminophen 500 mg tablet (Acetaminophen PM) 1 tab PO QHS PRN sleep 07/15/24 escitalopram oxalate 5 mg tablet 5 mg PO QPM 07/15/24 aspirin 81 mg capsule 81 mg PO DAILY 30 days #30 caps 07/17/24 Hospital Course Operations None Procedures - (CTA abdomen pelvis) Summary of Care Provided Minutes Spent on Discharge: 35 Hospital Course: Patient is an 84-year-old female who presented to [facility] ED on 07/15/2024 with bright red blood per rectum. Hospital course as noted below. Patient discharged home in stable condition on . Concern for recurrent GI bleed, chronic iron deficiency anemia ? GI followed. Recent history of ABLA secondary to upper GI bleed in March 2024. Presented with hemoglobin 5.7 at that time, transfused 3 units of blood with repeat hemoglobin 8.7. 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 Was discharged on p.o. PPI twice daily and a short course of sucralfate. Has been on Plavix since then but not on babyaspirin. No recurrence of bleeding until day of admission. Patient had bright red stools that prompted her to come in. CTA abdomen pelvis unremarkable. Hemoglobin 13.4 in ED, dropped to 11.4 by morning of 07/16 but was given IV fluids, and repeat hemoglobins on 07/16 were 11.9 and 12.5. Hemoglobin remained stable at 12.7 on morning of discharge. Per GI, no need for repeat scope while patient. Starting only baby aspirin daily on discharge, Plavix discontinued as noted below. Continue home PPI once daily. Stable for discharge home on 07/17. 2. History of TIA ? On chart review, was hospitalized in 05/2022 for acute ischemic stroke in the right parietal and temporal lobes. Was put on aspirin and Plavix at that time. Had stroke rule out admissions in October and March 2023 with repeat imaging negative. Per neurology that October, appeared the patient would be okay for aspirin therapy alone. No further neurologic issues since March 2023. Will start only baby aspirin daily on discharge and discontinue Plavix. Chronic medical conditions: ? Hypertension: Continue home amlodipine and valsartan/hydrochlorothiazide. ? Mild cognitive impairment: Continue home memantine. ? Restless leg syndrome: Continue home pramipexole. ? Depression/anxiety: Continue home escitalopram. ? GERD: Continue home PPI. Total clinical time spent by myself addressing the patient's medical issues, reviewing all the data, and collaborating with patient's care team: 35 minutes. Physical Exam Const alert, oriented x3, no apparent distress and average body habitus Constitutional Narrative: Elderly female, pleasant and talkative, mildly fatigued appearing but otherwise sitting back comfortably in bed, conversing normally, in no acute distress. Stable. General Appearance: cooperative and comfortable HEENT normocephalic, head/scalp atraumatic, hearing grossly normal bilaterally, nasal mucous membranes and turbinates normal and moist oral mucous membranes Eyes PERRL, EOMs intact bilaterally and conjunctivae normal Neck full ROM Chest inspection of chest normal Resp normal respiratory effort, normal air movement, no use of accessory muscles and clear to auscultation bilaterally Cardio regular rate, regular rhythm, no murmurs and peripheral pulses 2+ throughout GI normal to inspection, nondistended, normoactive bowel sounds, soft to palpation,non-tender and non-distended Back/Spine normal ROM Extremity normal to inspection, full ROM and no pedal edema Skin no rashes or lesions noted Psych mental status grossly normal Weight / BMI Weight Weight: 59.5 kg Body Mass Index (BMI) 23.2 ABG / Lab / Microbiology Data 07/17/24 06:21 07/17/24 06:21 Laboratory: Laboratory Results - last 24 hr 07/16/24 12:21: WBC 6.6, RBC 4.45, Hgb 12.5, Hct 38.6, MCV 86.7, MCH 28.1, MCHC 32.4, RDW Std Deviation 42.3, RDW Coeff of Kierra 13.3, Plt Count 231, MPV 9.6 07/17/24 06:21: WBC 6.0, RBC 4.50, Hgb 12.7, Hct 38.6, MCV 85.8, MCH 28.2, MCHC 32.9, RDW Std Deviation 41.6, RDW Coeff of Kierra 13.4, Plt Count 243, MPV 10.2, Sodium 134, Potassium 4.0, Chloride 101, Carbon Dioxide 21.0, Anion Gap 12, BUN 10, Creatinine 0.68 L, Estim Creat Clear Calc 43.30 L, Est GFR (MDRD) Non-Af 86,BUN/Creatinine Ratio 14.8, Glucose 93, Calcium 9.6 Microbiology: Microbiology 07/15/24 15:35 Stool Stool Occult Blood (LOIS) - Final Occult Blood Positive D/C Instructions DC O2, CPAP, BIPAP Needs Home O2 Discharge instructions: No Meaningful Use Info Meaningful Use Meaningful Use Diagnoses (Choose all that apply): None applicable Ischemic Stroke Statin Dosing Therapy Reference: STATIN DOSE THERAPY REFERENCE: * Patients > 75 years receive moderate or high dose statin therapy. * Patients 75 years or YOUNGER should receive HIGH intensity statin dose unless contraindicated. You will be required to document reason for non-treatment if statin daily dose does not meet guidelines. HIGH DOSE STATIN THERAPY DAILY Atorvastatin > than or = to 40 mg Rosuvastatin > than or = to 20 mg Amlodipine + Atorvastatin > than or = to 2.5/40 mg Ezetimibe + Simvastatin 10/80 mg Simvastatin 80mg Discharge Plan Admission Admit Date/Time: 07/15/24 18:10 Primary Reason for Your Visit: bloody stools Attending Provider: Brodie Swartz Primary Care Provider: Jose Hdz Consulting Providers: Nayla,Brad; Leonora Mojica Instructions Additional Instructions / Restrictions: Please start taking a baby aspirin daily and stop taking Plavix. You can also stop taking the potassium supplement. Continue your other home indications as normal. Follow-up with your primary care doctor as needed. Discharge Orders/Prescriptions Prescriptions: New aspirin 81 mg capsule 81 mg PO DAILY 30 Days Qty: 30 0RF Continued pramipexole 1.5 mg tablet 1.5 mg PO DAILY Patient Comments: TAKE 1 TABLET 2 TO 3 HOURS BEFORE BEDTIME FOR RESTLESS LEGS valsartan-hydrochlorothiazide 320-25 mg tablet 1 tab PO DAILY memantine 10 mg tablet 10 mg PO DAILY amlodipine 5 mg tablet 5 mg PO DAILY escitalopram oxalate 5 mg tablet 5 mg PO QPM diphenhydramine-acetaminophen [Acetaminophen PM] 25-500 mg tablet 1 tab PO QHS PRN (Reason: sleep) pantoprazole 40 mg Tablet,Delayed Release (Dr/Ec) 40 mg PO BID 30 Days Qty: 60 2RF Discontinued clopidogrel 75 mg Tablet 75 mg PO DAILY Qty: 30 0RF potassium chloride 10 mEq tablet extended release 20 meq PO BID Referrals / Follow Up: Jose Hdz MD [Primary Care Provider] - 07/26/24 11:20 am Disposition Disposition (needs filled in before D/C Order can be placed): Home, Self Care Charges/Coding Visit Charges Inpatient E&M: 81415 Disch Hosp >30min 07/17/24 1133 <Electronically signed by Brodie Swartz DO> Cosigner Signature (if applicable): CC: Dr. Brodie Swartz DO; Dr. Jose Hdz MD~ Signed [facility] Work Phone: Evaluation noteNo assessment information available [facility] Work Phone: Evaluation note* Diagnosis Onset Date Resolution Status Acute stroke due to ischemia acute Confusion acute CVA (cerebral vascular accident) acute Hyponatremia acute [facility] Work Phone: Evaluation note* Diagnosis Cerebral infarction, unspecified mechanism (HCC)- [facility] Diagnosis Onset Date Resolution Status Acute stroke due to ischemia acute CVA (cerebral vascular accident) acute Hyponatremia resolved [facility] Work Phone: Evaluation note* Diagnosis Onset Date Resolution Status History of CVA in adulthood acute History of dementia acute Recurrent episodes of unresponsiveness acute TIA (transient ischemic attack) acute [facility] Work Phone: Evaluation note* Diagnosis Cerebrovascular accident (CVA), unspecified mechanism (HCC)- Primary Syncope, unspecified syncope type Unresponsive episode Other alteration of consciousness TIA (transient ischemic attack) Unspecified transient cerebral [facility] Diagnosis Onset Date Resolution Status CVA (cerebral vascular accident) acute Essential hypertension chron ic HLD (hyperlipidemia) chronic [facility] Work Phone: Evaluation note* Diagnosis Onset Date Resolution Status CVA (cerebral vascular accident) acute Essential hypertension chron ic HLD (hyperlipidemia) chronic Head injury acute Inability to ambulate due to knee acute Laceration of head acute [facility] Work Phone: Evaluation note* Diagnosis Cerebral infarction, unspecified mechanism (HCC)- Primary Dementia without behavioral disturbance (HCC) Dementia, unspecified, without behavioral disturbance Driving safety issue Other specified personal history presenting hazards to health documented in this encounter [facility] Author Emily Verdugo [facility] October 17, 2022 1:49am Note Date/Time October 17, 2022 1:00a [facility] System Medical Records Department [address] [place] [address] H&P Exam - Hospitalist 10/17/22 0058 MR#: [id number] Acct: [id number] Name: XAVIER RAHMAN Rep #:[id number] : 1940 82 From: Emily Verdugo MD PCP: Dr. Jose Hdz MD Status:ADM NICOLASA Location: [place] [address] HPI - General General Date of Admission: 10/17/22 Date of Service: 10/17/22 Chief Complaint: Recurrent episodes of slurred speech, weakness. HPI Narrative The patient is an 82 y/o F w/ PMHx: Anxiety and Depression, COPD, Former tobaccouse, Chronically mildly altered/slurred speech baseline, Hx TIA, Hypothyroidism,ZONIA unable to tolerate PAP therapy, HTN, HLD, Hx R Ductal Carcinoma Breast, Alzhemier's dementia with unclear behavioral disturbance history, Hx GI bleed, recent 10/12/22 ED evaluation for onset worsened slurred speech from her baselineand LUE weakness with complete resolution of sxs while in the ED with unremarkable CT head/CTA head and neck with recommended admission per telestrokephysician following Stroke Alert evaluation but patient elected to return to home and pursue outpatient work-up who now re-presents to the [facility] ED on 7/2/23 with history of similar episode on evening prior to day of presentation as to the day prior with onset of weakness, lightheadedness, slurred speech prompting ED return. Patient has been admitted and evaluated for similar presentation prior with unremarkable work-up at that time. Work-up in the ED included T96.8, heart rate 67, BP initially 141/69 with most recent repeat 137/62, respiratory rate 18, 96% on room air with most recent repeat assessment respiratory rate 19,92% on room air, CBC with WBC 6.7, hemoglobin 13.2, platelet 248 without marked shift, unremarkable coags, BMP with sodium 132 otherwise not marked appearing, troponin 11, ethyl alcohol less than 3, CT of the brain with a stable focus of prior ischemic change in the right parietal temporal lobe with no acute intracranial findings otherwise, chest x-ray with no acute cardiopulmonary findings. In the ED patient per family has now returned to her chronic baseline. [facility] Medical History Alzheimer's dementia Anxiety and depression Arthritis Confusion COPD (chronic obstructive pulmonary disease) Ductal carcinoma in situ (DCIS) of right breast GERD (gastroesophageal reflux disease) History of GI bleed HTN (hypertension) Hypercholesterolemia Hypothyroidism TIA (transient ischemic attack) Vitamin D deficiency Home Medications fluoxetine 20 mg capsule 20 mg PO QHS depression 11/26/19 [History Last Taken Unknown] levocetirizine 5 mg tablet 5 mg PO QHS Check with primary doctor 11/26/19 [History Last Taken 11/25/19 22:00] hydrochlorothiazide 25 mg tablet 12.5 mg (1/2 x 25 mg) PO DAILY #15 tabs 11/27/19 [Rx Last Taken Unknown] losartan 100 mg tablet 100 mg PO DAILY #30 tabs 11/27/19 [Rx Last Taken Unknown] metoprolol tartrate 50 mg tablet 50 mg PO BID #60 tabs 11/27/19 [Rx Last Taken Unknown] aspirin 81 mg chewable tablet 81 mg PO BREAKFAST #0 tabs 06/15/22 [Rx Last Taken Unknown] atorvastatin 20 mg tablet 20 mg PO QHS #30 tabs 06/15/22 [Rx Last Taken Unknown] clopidogrel 75 mg tablet 75 mg PO DAILY #30 tabs 06/15/22 [Rx Last Taken Unknown] magnesium 500 mg tablet 500 mg PO DAILY 10/12/22 [History Last Taken Unknown] amlodipine 10 mg tablet mg 10/16/22 [History Last Taken Unknown] hydralazine 25 mg tablet mg 10/16/22 [History Last Taken Unknown] mirtazapine 15 mg tablet mg 10/16/22 [History Last Taken Unknown] pantoprazole 40 mg tablet,delayed release mg PO 10/16/22 [History Last Taken Unknown] pramipexole 1.5 mg tablet mg 10/16/22 [History Last Taken Unknown] valsartan 320 mg-hydrochlorothiazide 25 mg tablet tab 10/16/22 [History Last Taken Unknown] Allergy/AdvReac Type Severity Reaction Status Date / Time lisinopril Allergy Mild cough Verified 10/16/22 21:26 alendronate sodium Allergy Unknown unknown Verified 10/16/22 21:26 [From Fosamax] Sulfa (Sulfonamide Allergy Rash Verified 10/16/22 21:26 Antibiotics) atorvastatin [From Lipitor] AdvReac Mild muscle Verified 10/16/22 21:26 aches rosuvastatin [From Crestor] AdvReac Mild muscle Verified 10/16/22 21:26 aches codeine AdvReac Nausea Verified 10/16/22 21:26 NSAIDS (Non-Steroidal AdvReac Bleeding Verified 10/16/22 21:26 Anti-Inflamma [id number]-[id number] Reductase AdvReac Other Verified 10/16/22 21:26 Inhibitor [Qybdvka-Ngi-Oaj Reductase Inhibitor] Family History Mother Heart disease CVA (cerebral vascular accident) Father Heart disease Surgical History History of hysterectomy History of left mastoidectomy History of lumpectomy of right breast History of right hip replacement History of right hip replacement History of thyroid surgery Social History household members: spouse Smoking Status: Former smoker how long ago did patient quit smoking: Quit ~ 24-25 years prior. alcohol intake: current alcohol intake frequency: a few times a month details: 1 drink/[place] nightly. substance use type: other details: Given THC chew per her family for sleep but prior no substance use. ROS ROS Narrative Admission Review of Systems: CONSTITUTIONAL: No weight loss, fever, chills, + weakness or fatigue. HEENT: + Chronically slurred speech with acute on chronic as noted. Eyes: No visual loss, blurred vision, double vision or yellow sclerae. Ears, Nose, Throat: No hearing loss, sneezing, congestion, runny nose or sore throat. SKIN: No rash or itching, lesions, wounds. CARDIOVASCULAR: No chest pain, chest pressure or chest discomfort, palpitations,edema, orthopnea, syncopal events. RESPIRATORY: + Chronic cough.No shortness of breath, marked sputum, wheezing, hemoptysis. GASTROINTESTINAL: No anorexia, nausea, vomiting or diarrhea, abdominal pain, melena, BRBPR. GENITOURINARY: No dysuria, frequency, urgency or retention. NEUROLOGICAL: + Chronic dysarthria with transient increased slurred speech, increased lethargy/confusion with drooling, LUE weakness all now resolved. No headache, dizziness, syncope, paralysis, ataxia, numbness or tingling in the extremities, focal weakness, change in bowel or bladder control, seizure. MUSCULOSKELETAL: + muscle, back pain, joint pain or stiffness. HEMATOLOGIC: No anemia, bleeding or bruising. LYMPHATICS: No enlarged nodes. No history of splenectomy. PSYCHIATRIC: + history of depression or anxiety. ENDOCRINOLOGIC: No reports of sweating, cold or heat intolerance. No polyuria orpolydipsia. ALLERGIES: + history of rhinitis. Vital Signs Vital Signs Vital Signs: 10/16/22 21:26 10/16/22 21:28 10/16/22 21:58 Temperature 96.8 F L Temperature Source Temporal Pulse Rate 67 66 62 Respiratory Rate 18 18 18 Blood Pressure 141/69 H 111/65 128/109 H Blood Pressure Mean 93 80 115 Pulse Ox 96 93 94 Oxygen Delivery Method Room Air Room Air Room Air 10/16/22 22:28 10/16/22 22:58 10/16/22 23:00 Temperature Temperature Source Pulse Rate 68 68 65 Respiratory Rate 17 19 H 18 Blood Pressure 125/67 H 120/64 123/63 H Blood Pressure Mean 86 82 83 Pulse Ox 93 94 94 Oxygen Delivery Method Room Air Room Air Room Air 10/17/22 00:00 Temperature Temperature Source Pulse Rate 65 Respiratory Rate 19 H Blood Pressure 137/62 H Blood Pressure Mean 87 Pulse Ox 92 Oxygen Delivery Method Room Air Weight Weight: 132 lb 0.91 oz Body Mass Index (BMI) 22.6 Physical Exam Narrative Physical Examination: General: Awake, alert, oriented x > 3 currently, appears to be back at stable baseline, chronically altered/slurred speech, cooperative and interactive, NAD. Skin: Normal color, normal turgor, no icterus, no cyanosis. HEENT: AT/NC, EOMI, PERRLA, MMM, no carotid bruits or JVD noted. Lungs: CTA bilaterally, moderate effort, mild decrease BL bases, no rales, ronchi or wheezing. Heart: Currently regular rate and rhythm; no gallop, rub audible. Abdomen: Soft, NTTP, ND, mildly hyperactive BS, no HSM. Extremities: No cyanosis, no clubbing, no edema. Neurological: Patient awake, alert, oriented as noted, cognitive function appears improved, now per family appears based intact; pupils equally reactive to light and accommodation, cranial nerves II-XII grossly normal, moving all 4 extremities, no focal deficits, strength appropriate, sensation intact. Psychiatric: Affect appears appropriate, no acute evidence of depressive or anxiety feelings but does have underlying history. Results Lab / Micro Data 10/16/22 21:20 10/16/22 21:20 Labs: Laboratory Results - last 24 hr 10/16/22 21:20: WBC 6.7, RBC 4.46, Hgb 13.2, Hct 40.0, MCV 89.7, MCH 29.6, MCHC 33.0, RDW Std Deviation 48.7 H, RDW Coeff of Kierra 14.8 H, Plt Count 248, MPV 9.0,Immature Gran % (Auto) 0.400, Neut % (Auto) 60.6, Lymph % (Auto) 19.7, Walsh % (Auto) 16.8 H, Eos % (Auto) 1.6, Baso % (Auto) 0.9, Absolute Neuts (auto) 4.1, Absolute Lymphs (auto) 1.32, Nucleated RBC % 0, PT 13.4, INR 1.0, APTT 33.1, Sodium 132 L, Potassium 3.6, Chloride 99, Carbon Dioxide 28.0, Anion Gap 5, BUN 14, Creatinine 0.98, Estim Creat Clear Calc 38.22, Est GFR (MDRD) Af Amer 70, Est GFR (MDRD) Non-Af 58 L, BUN/Creatinine Ratio 14.3, Glucose 105, Calcium 10.1, Troponin I High Sens 11, Ethyl Alcohol < 3.0 10/16/22 21:29: POC Glucose 109 H Radiology Impression Brain CT 10/16/22 21:28 IMPRESSION: Stable focus of prior ischemic change in the right parietal temporal lobe. No visualized acute hemorrhage infarct or edema or significant change since the prior studies. Electronically Signed: Maria Guadalupe Munoz MD at 22:12 EDT , ADDENDUM: 10/16/22 2223 IMPRESSION: Stable focus of prior ischemic change in the right parietal temporal lobe. No visualized acute hemorrhage infarct or edema or significant change since the prior studies. N.B. : The above Results were Read Back by Maria Guadalupe Munoz MD to Terry Vuong MD, and understanding confirmed on 10/16/2022 22:16:51 (ET). Electronically Signed: Maria Guadalupe Munoz MD at 22:12 EDT , Chest X-Ray 10/16/22 21:50 IMPRESSION: No demonstrated acute cardiopulmonary process. Electronically Signed: Maria Guadalupe Munoz MD at 22:42 EDT , Assessment & Plan Assessment/Plan (1) TIA (transient ischemic attack): PLAN: Plan The patient is an 82 y/o F w/ PMHx: Anxiety and Depression, COPD, Former tobaccouse, Chronically mildly altered/slurred speech baseline, Hx TIA, Hypothyroidism,ZONIA unable to tolerate PAP therapy, HTN, HLD, Hx R Ductal Carcinoma Breast, Alzhemier's dementia with unclear behavioral disturbance history, Hx GI bleed, recent 10/12/22 ED evaluation for onset worsened slurred speech from her baselineand LUE weakness with complete resolution of sxs while in the ED with unremarkable CT head/CTA head and neck with recommended admission per telestrokephysician following Stroke Alert evaluation but patient elected to return to home and pursue outpatient work-up who now re-presents to the [facility] ED on 10/17/22 with history of similar episode on evening prior to day of presentation as to theday prior with onset of weakness, lightheadedness, slurred speech prompting ED return. #1. Intermittent Increased Slurred Speech from her baseline, Decreased responsiveness, LUE weakness, Generalized weakness concerning for TIA/CVA, possible seizure: Will admit to PCU, will obtain MRI Brain with and without contrast given CA history and recent similar presentation with MRI without, recent ECHO with bubble study 06/13/22 thus will not repeat, PT/OT/Speech/Nutrition evaluation per protocol. Given resolution and and timeline will continue her HTN regimen, will maintain on asa/plavix, statin allergy reported,fall precautions. Mag, TSH/FT4, FLP, HgbA1c, UTox, EtOH level requested. Maintain on fall and aspiration precautions. EEG requested. Once work-up obtained given atypical history would plan to obtain Neurology consultation. #2. Hypertension: Continue home regimen given lengthy timeline of intermittent symptoms including metoprolol, hydrochlorothiazide, losartan, PRN hydralazine. #3. Hyperlipidemia: Reported statin allergy, AM FLP. #4. Anxiety and depression w/ chronic insomnia: We will continue patient home fluoxetine regimen. #5. Chronic COPD with allergic rhinitis, chronic cough: Not on any chronic regimen, if necessary may add additional aerosol treatments but in the interim we will maintain on PRN albuterol, HOB, IS parameters, continue patient home levocetirizine regimen. #6. History of breast cancer: Patient with history of right ductal carcinoma, s/p lumpectomy prior, considered in remission, encourage continued outpatient follow-up as previously arranged. #7. Former tobacco use: Encourage continued tobacco cessation. #8. Hypothyroidism: Noted in chart history but from most recent discharge medication list while on any supplementation, will obtain TSH and free T4 to be cautious. #9. ZONIA: Unable to tolerate PAP therapy with oxygen supplementation instead. #10. Alzhemier's dementia with unclear behavioral disturbance history: Complicates presentation,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 RECTAL BLEEDING WITH MEANOTIC STOOLS Mar 11:37am RECTAL BLEEDING WITH MEANOTIC STOOLS Mar 12:08pm Pacer Check Remote April 01, 2024 4:24pm Follow up April 17, 2024 1:03pm Pacer Check Remote April 29, 2024 5 :18am Pacer Check Remote May 01, 2024 4 :24pm Pacer Check Remote May 31, 2024 4:24pm Pacer Check Remote June 30, 2024 4:2 4pm BRBPR July 15, 2024 6:1 0pm Reason for Visit Admit Date Acute blood loss anemia March 21 10:38pm Anemia March 21, 2024 1 0:38pm Adverse drug reaction March 21, 2024 10:38pm Dyspnea on exertion March 21, 2024 1 0:38pm Generalized weakness March 21, 2024 10:38pm GI (gastrointestinal bleed) March 10:38pm Hematochezia due to medication March 21, 2024 10:38pm Melena March 21, 2024 1 0:38pm Alzheimer's dementia March 21, 2024 10:38pm History of COPD March 21, 2024 1 0:38pm History of GI bleed March 21, 2024 1 0:38pm Anemia April 17, 2024 1:03pm GI bleed April 17, 2024 1:03pm Bright red rectal bleeding July 15, 2 025 6:10pm Chief Complaint Admit Date RECTAL BLEEDING WITH MEANOTIC STOOLS Mar 10:38pm RECTAL BLEEDING WITH MEANOTIC STOOLS Mar 10:51pm RECTAL BLEEDING WITH MEANOTIC STOOLS Mar 8:32am RECTAL BLEEDING WITH MEANOTIC STOOLS Mar 5:47pm RECTAL BLEEDING WITH MEANOTIC STOOLS Mar 7:11am RECTAL BLEEDING WITH MEANOTIC STOOLS Mar emb2023 11:37am RECTAL BLEEDING WITH MEANOTIC STOOLS Mar 12:08pm Pacer Check Remote April 01, 2024 4:24pm Follow up April 17, 2024 1:03pm Pacer Check Remote April 29, 2024 5 :18am Pacer Check Remote May 01, 2024 4 :24pm Pacer Check Remote May 31, 2024 4:24pm Pacer Check Remote June 30, 2024 4:2 4pm BRBPR July 15, 2024 6:1 0pm BRBPR July 16, 2024 8:4 5am BRBPR July 16, 2024 12: 10pm BRBPR July 17, 2024 10:4 3am Reason for Visit Admit Date Acute blood loss anemia March 21 10:38pm Anemia March 21, 2024 1 0:38pm Adverse drug reaction March 21, 2024 10:38pm Dyspnea on exertion March 21, 2024 1 0:38pm Generalized weakness March 21, 2024 10:38pm GI (gastrointestinal bleed) March 10:38pm Hematochezia due to medication March 21, 2024 10:38pm Melena March 21, 2024 1 0:38pm Alzheimer's dementia March 21, 2024 10:38pm History of COPD March 21, 2024 1 0:38pm History of GI bleed March 21, 2024 1 0:38pm Anemia April 17, 2024 1:03pm GI bleed April 17, 2024 1:03pm Acute blood loss anemia July 15, 2024 6:10pm Anemia July 15, 2024 6:1 0pm GI (gastrointestinal bleed) July 15, 2024 6:10pm Bright red rectal bleeding July 15, 2 025 6:10pm Chief Complaint Admit Date Follow up April 17, 2024 1:03pm Pacer Check Remote April 29, 2024 5 :18am Pacer Check Remote May 01, 2024 4 :24pm Pacer Check Remote May 31, 2024 4:24pm Pacer Check Remote June 30, 2024 4:2 4pm BRBPR July 15, 2024 6:1 0pm BRBPR July 16, 2024 8:4 5am BRBPR July 16, 2024 12: 10pm BRBPR July 17, 2024 10:4 3am Reason for Visit Admit Date GI bleed April 17, 2024 1:03pm Anemia April 17, 2024 1:03pm Acute blood loss anemia July 15, 2024 6:10pm GI bleed July 15, 2024 6:1 0pm Anemia July 15, 2024 6:1 0pm Bright red rectal bleeding July 15, 2 025 6:10pm Chief Complaint Admit Date Pacer Check Remote June 30, 2024 4:2 4pm BRBPR July 15, 2024 6:1 0pm BRBPR July 16, 2024 8:4 5am BRBPR July 16, 2024 12: 10pm BRBPR July 17, 2024 10:4 3am Pacer Check Remote July 30, 2024 4:2 4pm Pacer Check Remote August 29, 2024 4:25p m FINGER- RIGHT HAND September 28, 2024 2:25 pm Reason for Visit Admit Date Acute blood loss anemia July 15, 2024 6:10pm GI bleed July 15, 2024 6:1 0pm Anemia July 15, 2024 6:1 0pm Bright red rectal bleeding July 15, 2 025 6:10pm Chief Complaint Admit Date Pacer Check Remote June 30, 2024 4:2 4pm BRBPR July 15, 2024 6:1 0pm BRBPR July 16, 2024 8:4 5am BRBPR July 16, 2024 12: 10pm BRBPR July 17, 2024 10:4 3am Pacer Check Remote July 30, 2024 4:2 4pm Pacer Check Remote August 29, 2024 4:25p m FINGER- RIGHT HAND September 28, 2024 2:25 pm Pacer Check Remote September 28, 2024 4:27 pm Chief Complaint Admit Date Pacer Check Remote June 30, 2024 4:2 4pm BRBPR July 15, 2024 6:1 0pm BRBPR July 16, 2024 8:4 5am BRBPR July 16, 2024 12: 10pm BRBPR July 17, 2024 10:4 3am Pacer Check Remote July 30, 2024 4:2 4pm Pacer Check Remote August 29, 2024 4:25p m FINGER- RIGHT HAND September 28, 2024 2:25 pm Pacer Check Remote September 28, 2024 4:27 pm RECTAL HEMORRAGING October 15, 2024 8:09 pm Chief Complaint Admit Date Pacer Check Remote June 30, 2024 4:2 4pm BRBPR July 15, 2024 6:1 0pm BRBPR July 16, 2024 8:4 5am BRBPR July 16, 2024 12: 10pm BRBPR July 17, 2024 10:4 3am Pacer Check Remote July 30, 2024 4:2 4pm Pacer Check Remote August 29, 2024 4:25p m FINGER- RIGHT HAND September 28, 2024 2:25 pm Pacer Check Remote September 28, 2024 4:27 pm RECTAL HEMORRAGING October 15, 2024 8:09 pm GI BLEED October 16, 2024 7:19p m Additional Source Comments INFORMATION SOURCE (unrecogn ized section and content) DATE CREATED AUTHOR 10/11/2017 [facility] DATE CREATED AUTHOR AUTHOR'S ORGANIZ ATION 10/20/2018 [facility] DATE CREATED AUTHOR AUTHOR'S ORGANIZ ATION 11/18/2022 [facility] DATE CREATED AUTHOR AUTHOR'S ORGANIZ ATION 07/24/2023 [facility] DATE CREATED AUTHOR AUTHOR'S ORGANIZ ATION 01/07/2024 [facility] DATE CREATED AUTHOR AUTHOR'S ORGANIZ ATION 10/13/2024 [facility] Goals (unrecognized section and content) Goals may be documented in a n alternate sectionGoals may be documented in an alternate sectionGoals may be documented in an alternate sectionGoals may be documented in an alternate sectionGoals may be documented in an alternate sectionGoals may be documented in an alternate sectionGoals may be documented in an alternate sectionGoals may be documented in an alternate sectionGoals may be documented in an alternate sectionGoals may be documented in an alternate sectionGoals may be documented in an alternate sectionGoals may be documented in an alternate sectionGoals may be documented in an alternate section Care Teams (unrecognized sec tion and content) Team Status: Active Member Role Status Dates Dr. Jose Hdz MD Family Provider Active Dr. Jose Hdz MD Primary Care Provider Active Team Status: Inactive Member Role Status Dates Dr. Jose Hdz MD Primary Care Provide r, Attending Provider, Referring Provider Active Team Status: Active Member Role Status Dates Dr. Jose Hdz MD Primary Care Provider Active Dr. Catalino Sidhu MD Attending Provider Active Team Status: Inactive Member Role Status Dates Dr. Jose Hdz MD Primary Care Provider Active Charles Contreras MD Emergency Provider Active Dr. Emily Verdugo MD Admit Provider, Other Provider Active Dr. Guille Jamison DO Attending Provider Active Cutting Department Supervisor Relationship Specialty Start Date End Date Jose Hdz MD [address] [place] [address] [id number] PCP - General Family Medicine 06/24/22 Team Status: Active Member Role Status Dates Dr. Jose Hdz MD Primary Care Provider Active Charles Contreras MD Emergency Provider Active Dr. Emily Verdugo MD Admit Provider, Other Provider Active Dr. Guille Jamison DO Attending Provider, Other Pro vider Active Team Status: Inactive Member Role Status Dates Dr. Jose Hdz MD Primary Care Provider, Attending P rovider Active Team Status: Inactive Member Role Status Dates Dr. Jose Hdz MD Primary Care Provider Active Dr. Terry Vuong MD Attending Provider, Emergency Provider Active Team Status: Active Member Role Status Dates Dr. Jose Hdz MD Primary Care Provide r, Attending Provider, Referring Provider Active Team Status: Inactive Member Role Status Dates Dr. Jose Hdz MD Primary Care Provider Active Dr. Yoel Cam DO Emergency Provider Active Team Status: Active Member Role Status Dates Dr. Jose Hdz MD Primary Care Provider Active Dr. Terry Vuong MD Emergency Provider Active Dr. Emily Verdugo MD Admit Provider, Attending Prov ider Active Cutting Department Supervisor Relationship Specialty Start Date End Date Jose Hdz MD [address] [place], [place] [phone] PCP - General Family Medicine 06/24/22 Team Status: Active Member Role Status Dates Dr. Jose Hdz MD Primary Care Provider Active Dr. Terry Vuong MD Emergency Provider Active Dr. Emily Verdugo MD Admit Provider, Other Provider Active Dr. Justin Arriaga MD Attending Provider, Other Provider Active Dr. Guille Jamison DO Other Provider Active Team Status: Inactive Member Role Status Dates Dr. Jose Hdz MD Primary Care Provider, Referring P rovider Active Dr. Catalino Sidhu MD Attending Provider Active Team Status: Inactive Member Role Status Dates Dr. Jose Hdz MD Primary Care Provider Active Dr. Yoel Cam DO Attending Provider, Emergency Pr ovider Active Team Status: Inactive Member Role Status Dates Dr. Jose Hdz MD Primary Care Provider Active Dr. Terry Vuong MD Emergency Provider Active Dr. Emily Verdugo MD Admit Provider, Other Provider Active Dr. Justin Arriaga MD Attending Provider Active Dr. Guille Jamison DO Other Provider Active Team Status: Inactive Member Role Status Dates Dr. Jose Hdz MD Primary Care Provider Active Dr. Catalino Sidhu MD Attending Provider, Referring Pro vider Active Cutting Department Supervisor Relationship Specialty Start Date End Date Jose Hdz MD [address] [place] [id number] PCP - General Family Medicine 06/24/22 Team Status: Inactive Member Role Status Dates Dr. Jose Hdz MD Primary Care Provider Active Susy Charlton NP-C Attending Provider, Referr ing Provider Active Team Status: Inactive Member Role Status Dates Dr. Jose Hdz MD Primary Care Provider Active Dr. Jose Goins DO Emergency Provider Active Team Status: Inactive Member Role Status Dates Dr. Jose Hdz MD Primary Care Provider, Referring P rovider Active Teresa Trevino PA, PA Attending Provider Active Team Status: Inactive Member Role Status Dates Dr. Jose Hdz MD Primary Care Provider Active Dr. Catalino Sidhu MD Attending Provider Active Team Status: Inactive Member Role Status Dates Dr. Jose Hdz MD Primary Care Provider Active Dr. Jose Goins DO Attending Provider, Emergency P rovider Active Team Status: Inactive Member Role Status Dates Dr. Jose Hdz MD Primary Care Provider Active Dr. Genny Worley MD Attending Provider, Emergency Provider Active Team Status: Inactive Member Role Status Dates Dr. Jose Hdz MD Primary Care Provider Active Dr. Jono Casanova MD Emergency Provider Active Team Status: Inactive Member Role Status Dates Dr. Jose Hdz MD Primary Care Provider Active Dr. Jono Casanova MD Attending Provider, Emergency Pro vider Active Team Status: Inactive Member Role Status Dates Dr. Jose Hdz MD Primary Care Provider Active Dr. Esteban Leiva MD Emergency Provider Active Team Status: Active Member Role Status Dates Dr. Jose Hdz MD Primary Care Provider Active Dr. Genny Worley MD Emergency Provider Active Dr. Emily Verdugo MD Admit Provider, Attending Prov ider Active Team Status: Active Member Role Status Dates Dr. Jose Hdz MD Primary Care Provider Active Dr. Genny Worley MD Emergency Provider Active Dr. Emily Verdugo MD Admit Provider, Other Provider Active Dr. Bernadette Javier MD Attending Provider, Other Prov ider Active Team Status: Inactive Member Role Status Dates Dr. Jose Hdz MD Primary Care Provider Active Dr. Genny Worley MD Emergency Provider Active Dr. Emily Verdugo MD Admit Provider, Other Provider Active Dr. Bernadette Javier MD Attending Provider Active Team Status: Inactive Member Role Status Dates Dr. Jose Hdz MD Primary Care Provider Active Dr. Esteban Leiva MD Attending Provider, Emergency Provider Active Team Status: Active Member Role Status Dates Dr. Jose Hdz MD Primary Care Provider Active Dr. Jose R Sidhu MD Attending Provider Active Team Status: Inactive Member Role Status Dates Dr. Jose Hdz MD Primary Care Provider Active Dr. Genny Worley MD Emergency Provider Active [facility] Supervisor Relationship Specialty Start Date End Date Jose Hdz MD [address] [place] [id number] PCP - General Family Medicine 06/24/22 Team Status: Inactive Member Role Status Dates Dr. Jose Hdz MD Primary Care Provider, Referring P rovider Active Yasmine Mejia Attending Provider Active Team Status: Inactive Member Role Status Dates Dr. Jose Hdz MD Primary Care Provider, Referring P rovider Active Yasmine Mejia Active Dr. Catalino Sidhu MD Attending Provider Active Team Status: Active Member Role Status Dates Dr. Jose Hdz MD Primary Care Provider Active Team Status: Inactive Member Role Status Dates Dr. Jose Hdz MD Primary Care Provider Active Start: March 18, 2024 End: March 18, 2024 Dr. Jono Casanova MD Attending Provider Active S tart: March 18, 2024 End: March 18, 2024 Dr. Jono Casanova MD Emergency Provider Active S tart: March 18, 2024 End: March 18, 2024 Team Status: Inactive Member Role Status Dates Dr. Jose Hdz MD Primary Care Provider Active Start: March 21, 2024 End: March 25, 2024 Dr. Sangita Lima DO Referring Provider Active S tart: March 21, 2024 End: March 25, 2024 Dr. Sangita Lima DO Emergency Provider Active S tart: March 21, 2024 End: March 25, 2024 Dr. Lamin Ritter , DO Admit Provider Active Start: March 21, 2024 End: March 25, 2024 Dr. Lamin Ritter DO Other Provider Active Start: March 21, 2024 End: March 25, 2024 Dr. Brodie Swartz DO Attending Provider Active Start: March 21, 2024 End: March 25, 2024 Dr. Lamin Griffith MD Other Provider Active Star t: March 21, 2024 End: March 25, 2024 Team Status: Active Member Role Status Dates Dr. Jose Hdz MD Primary Care Provider Active Start: March 21, 2024 Dr. Sangita Lima DO Referring Provider Active S tart: March 21, 2024 Dr. Sangita Lima DO Emergency Provider Active S tart: March 21, 2024 Dr. Lamin Ritter DO Admit Provider Active Start: March 21, 2024 Dr. Lamin Ritter DO Attending Provider Active Start: March 21, 2024 Dr. Lamin Ritter DO Other Provider Active Start: March 21, 2024 Team Status: Active Member Role Status Dates Dr. Jose Hdz MD Primary Care Provider Active Start: March 22, 2024 Dr. Sangita Lima DO Referring Provider Active S tart: March 22, 2024 Dr. Sangita Lima DO Emergency Provider Active S tart: March 22, 2024 Dr. Lamin Ritter DO Admit Provider Active Start: March 22, 2024 Dr. Lamin Ritter DO Other Provider Active Start: March 22, 2024 Dr. Lamin Griffith MD Attending Provider Active Start: March 22, 2024 Dr. Lamin Griffith MD Other Provider Active Star t: March 22, 2024 Team Status: Active Member Role Status Dates Dr. Jose Hdz MD Primary Care Provider Active Start: March 22, 2024 Dr. Sangita Lima DO Referring Provider Active S tart: March 22, 2024 Dr. Sangita Lima DO Emergency Provider Active S tart: March 22, 2024 Dr. Lamin Ritter DO Admit Provider Active Start: March 22, 2024 Dr. Lamin Ritter DO Other Provider Active Start: March 22, 2024 Dr. Lamin Griffith MD Other Provider Active Star t: March 22, 2024 Dr. Brad Winslow DO Attending Provider Active Start: March 22, 2024 Team Status: Active Member Role Status Dates Dr. Jose Hdz MD Primary Care Provider Active Start: March 23, 2024 Dr. Sangita Lima DO Emergency Provider Active S tart: March 23, 2024 Dr. Lamin Ritter DO Admit Provider Active Start: March 23, 2024 Dr. Lamin Ritter DO Other Provider Active Start: March 23, 2024 Dr. Lamin Griffith MD Attending Provider Active Start: March 23, 2024 Dr. Lamin Griffith MD Other Provider Active Star t: March 23, 2024 Team Status: Active Member Role Status Dates Dr. Jose Hdz MD Primary Care Provider Active Start: March 23, 2024 Dr. Brad Winslow DO Attending Provider Active Start: March 23, 2024 Dr. Brodie Swartz DO Referring Provider Active Start: March 23, 2024 Team Status: Active Member Role Status Dates Dr. Jose Hdz MD Primary Care Provider Active Start: March 24, 2024 Dr. Sangita Lima DO Emergency Provider Active S tart: March 24, 2024 Dr. Lamin Ritter DO Admit Provider Active Start: March 24, 2024 Dr. Lamin Ritter DO Other Provider Active Start: March 24, 2024 Dr. Brodie Swartz DO Attending Provider Active Start: March 24, 2024 Dr. Brodie Swartz DO Other Provider Active Start: March 24, 2024 Dr. Lamin Griffith MD Other Provider Active Star t: March 24, 2024 Team Status: Active Member Role Status Dates Dr. Jose Hdz MD Primary Care Provider Active Start: March 25, 2024 Dr. Sangita Lima DO Emergency Provider Active S tart: March 25, 2024 Dr. Lamin Ritter DO Admit Provider Active Start: March 25, 2024 Dr. Lamin Ritter DO Other Provider Active Start: March 25, 2024 Dr. Brodie Swartz DO Attending Provider Active Start: March 25, 2024 Dr. Brodie Swartz , Other Provider Active Start: March 25, 2024 Dr. Lamin Griffith MD Other Provider Active Star t: March 25, 2024 Team Status: Inactive Member Role Status Dates Dr. Jose Hdz MD Primary Care Provider Active Start: April 01, 2024 End: April 01, 2024 Dr. Catalino Sidhu MD Attending Provider Active S tart: April 01, 2024 End: April 01, 2024 Team Status: Inactive Member Role Status Dates Dr. Jose Hdz MD Primary Care Provider Active Start: April 17, 2024 End: April 17, 2024 Dr. Jose Hdz MD Referring Provider Active St art: April 17, 2024 End: April 17, 2024 ROSA ISELA Avalos Attending Provider Active Start: April 17, 2024 End: April 17, 2024 Team Status: Inactive Member Role Status Dates Dr. Jose Hdz MD Primary Care Provider Active Start: April 17, 2024 End: April 17, 2024 Dr. Brad Winslow DO Attending Provider Active Start: April 17, 2024 End: April 17, 2024 Dr. Brad Winslow DO Referring Provider Active Start: April 17, 2024 End: April 17, 2024 Team Status: Inactive Member Role Status Dates Dr. Jose Hdz MD Primary Care Provider Active Start: April 29, 2024 End: April 29, 2024 Dr. Catalino Sidhu MD Attending Provider Active S tart: April 29, 2024 End: April 29, 2024 Team Status: Inactive Member Role Status Dates Dr. Jose Hdz MD Primary Care Provider Active Start: May 01, 2024 End: May 01, 2024 Dr. Catalino Sidhu MD Attending Provider Active S tart: May 01, 2024 End: May 01, 2024 Team Status: Inactive Member Role Status Dates Dr. Jose Hdz MD Primary Care Provider Active Start: May 21, 2024 End: May 21, 2024 Dr. Jose Hdz MD Attending Provider Active St art: May 21, 2024 End: May 21, 2024 Dr. Jose Hdz MD Referring Provider Active St art: May 21, 2024 End: May 21, 2024 Team Status: Inactive Member Role Status Dates Dr. Jose Hdz MD Primary Care Provider Active Start: May 31, 2024 End: May 31, 2024 Dr. Catalino Sidhu MD Attending Provider Active S tart: May 31, 2024 End: May 31, 2024 Team Status: Inactive Member Role Status Dates Dr. Jose Hdz MD Primary Care Provider Active Start: June 30, 2024 End: June 30, 2024 Dr. Catalino Sidhu MD Attending Provider Active S tart: June 30, 2024 End: June 30, 2024 Team Status: Active Member Role Status Dates Dr. Jose Hdz MD Primary Care Provider Active Start: July 15, 2024 Dr. Ta Soto DO Emergency Provider Active Start : July 15, 2024 Dr. Leonora Mojica MD Admit Provider Active Star t: July 15, 2024 Dr. Leonora Mojica MD Attending Provider Active Start: July 15, 2024 Dr. Leonora Mojica MD Other Provider Active Star t: July 15, 2024 Team Status: Inactive Member Role Status Dates Dr. Jose Hdz MD Primary Care Provider Active Start: July 15, 2024 End: July 17, 2024 Dr. Ta Soto DO Emergency Provider Active Start : July 15, 2024 End: July 17, 2024 Dr. Leonora Mojica MD Admit Provider Active Star t: July 15, 2024 End: July 17, 2024 Dr. Leonora Mojica MD Other Provider Active Star t: July 15, 2024 End: July 17, 2024 Dr. Brad Winslow DO Other Provider Active St art: July 15, 2024 End: July 17, 2024 Dr. Brodie Swartz DO Attending Provider Active Start: July 15, 2024 End: July 17, 2024 Team Status: Active Member Role Status Dates Dr. Jose Hdz MD Primary Care Provider Active Start: July 16, 2024 Dr. Ta Soto , DO Emergency Provider Active Start : July 16, 2024 Dr. Leonora Mojica MD Admit Provider Active Star t: July 16, 2024 Dr. Leonora Mojica MD Other Provider Active Star t: July 16, 2024 Dr. Brad Winslow , DO Attending Provider Active Start: July 16, 2024 Dr. Brad Winslow , DO Other Provider Active St art: July 16, 2024 Dr. Brodie Swartz , DO Other Provider Active Start: July 16, 2024 Team Status: Active Member Role Status Dates Dr. Jose Hdz MD Primary Care Provider Active Start: July 16, 2024 Dr. Ta Soto , DO Emergency Provider Active Start : July 16, 2024 Dr. Leonora Mojica MD Admit Provider Active Star t: July 16, 2024 Dr. Leonora Mojica MD Other Provider Active Star t: July 16, 2024 Dr. Brad Winslow , DO Other Provider Active St art: July 16, 2024 Dr. Brodie Swartz , Attending Provider Active Start: July 16, 2024 Dr. Brodie Swartz , DO Other Provider Active Start: July 16, 2024 Team Status: Active Member Role Status Dates Dr. Jose Hdz MD Primary Care Provider Active Start: July 17, 2024 Dr. Ta Soto , DO Emergency Provider Active Start : July 17, 2024 Dr. Leonora Mojica MD Admit Provider Active Star t: July 17, 2024 Dr. Leonora Mojica MD Other Provider Active Star t: July 17, 2024 Dr. Brad Winslow , DO Other Provider Active St art: July 17, 2024 Dr. Brodie Swartz DO Attending Provider Active Start: July 17, 2024 Dr. Brodie Swartz , DO Other Provider Active Start: July 17, 2024 Team Status: Active Member Role Status Dates Dr. Jose Hdz MD Primary Care Provider Active Start: July 16, 2024 Dr. Ta Soto , DO Emergency Provider Active Start : July 16, 2024 Dr. Leonora Mojica MD Admit Provider Active Star t: July 16, 2024 Dr. Leonora Mojica MD Other Provider Active Star t: July 16, 2024 Dr. Brad Winslow , DO Attending Provider Active Start: July 16, 2024 Dr. Brad Winslow , DO Other Provider Active St art: July 16, 2024 Dr. Brodie Swartz , Referring Provider Active Start: July 16, 2024 Dr. Brodie Swartz , Other Provider Active Start: July 16, 2024 Team Status: Inactive Member Role Status Dates Dr. Jose Hdz MD Primary Care Provider Active Start: July 26, 2024 End: July 26, 2024 Dr. Jose Hdz MD Attending Provider Active St art: July 26, 2024 End: July 26, 2024 Dr. Jose Hdz MD Referring Provider Active St art: July 26, 2024 End: July 26, 2024 Team Status: Inactive Member Role Status Dates Dr. Jose Hdz MD Primary Care Provider Active Start: July 30, 2024 End: July 30, 2024 Dr. Catalino Sidhu MD Attending Provider Active S tart: July 30, 2024 End: July 30, 2024 Team Status: Inactive Member Role Status Dates Dr. Jose Hdz MD Primary Care Provider Active Start: August 29, 2024 End: August 29, 2024 Dr. Catalino Sidhu MD Attending Provider Active S tart: August 29, 2024 End: August 29, 2024 Team Status: Active Member Role Status Dates Dr. Jose Hdz MD Primary Care Provider Active Start: September 28, 2024 Abhilash Dominguez DOCKET SPECIALIST, DOCKET SPECIALIST-C Attending Provider Active Start: September 28, 2024 Abhilash Dominguez DOCKET SPECIALIST, DOCKET SPECIALIST-C Referring Provider Active Start: September 28, 2024 Team Status: Inactive Member Role Status Dates Dr. Jose Hdz MD Primary Care Provider Active Start: September 28, 2024 End: September 28, 2024 Abhilash Dominguez DOCKET SPECIALIST, DOCKET SPECIALIST-C Attending Provider Active Start: September 28, 2024 End: September 28, 2024 Abhilash Dominguez DOCKET SPECIALIST, DOCKET SPECIALIST-C Referring Provider Active Start: September 28, 2024 End: September 28, 2024 Team Status: Active Member Role/Relationship Status Dates Dr. Jose Hdz MD Primary Care Provider Active Team Status: Inactive Member Role/Relationship Status Dates Dr. Jose Hdz MD Primary Care Provider Active Start: June 30, 2024 End: June 30, 2024 Dr. Catalino Sidhu MD Attending Provider Active S tart: June 30, 2024 End: June 30, 2024 Team Status: Inactive Member Role/Relationship Status Dates Dr. Jose Hdz MD Primary Care Provider Active Start: July 15, 2024 End: July 17, 2024 Dr. Ta Soto DO Emergency Provider Active Start : July 15, 2024 End: July 17, 2024 Dr. Leonora Mojica MD Admit Provider Active Star t: July 15, 2024 End: July 17, 2024 Dr. Leonora Mojica MD Other Provider Active Star t: July 15, 2024 End: July 17, 2024 Dr. Brad Winslow , DO Other Provider Active St art: July 15, 2024 End: July 17, 2024 Dr. Brodie Swartz , Attending Provider Active Start: July 15, 2024 End: July 17, 2024 Team Status: Active Member Role/Relationship Status Dates Dr. Jose Hdz MD Primary Care Provider Active Start: July 16, 2024 Dr. Ta Soto DO Emergency Provider Active Start : July 16, 2024 Dr. Leonora Mojica MD Admit Provider Active Star t: July 16, 2024 Dr. Leonora Mojica MD Other Provider Active Star t: July 16, 2024 Dr. Brad Winslow DO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
[2024-10-17 01:00] LABS: Ferritin 23 ng/mL (22-378)
[2024-10-17 01:34] LABS: Iron 20 ug/dL (50-170); Iron Binding Capacity,Total 299 ug/dL (250-450); Iron Binding Capacity,Unsat 279 ug/dL (228-428); Magnesium 1.9 mg/dL (1.5-2.2)
[2024-10-17] MEDS: 0.9% Normal Saline (1000mL) 1,000 ML 100 ML IV ×2 (02:20→12:29)
[2024-10-17 07:28] LABS: Hematocrit 36.1 % (37-47); Hemoglobin 12.0 g/dL (12.0-15.0); Immature Granulocytes Count 0.200 X10^3/uL (0.0-0.0); Mean Corp Hgb Conc 33.2 g/dL (32-36); Mean Corpuscular Volume 94.5 fL (81-99); Mean Platelet Vol. 9.7 fl (6.2-12.0); NRBC Flagged by Analyzer 0.2 % (0-5); Platelet Count 265 K/mm3 (150-450); RBC Distribution Width CV 17.4 % (11.6-14.6); RBC Distribution Width SD 58.4 fl (35.1-43.9); Red Blood Count 3.82 M/mm3 (4.2-5.4); White Blood Count 19.2 K/mm3 (4.4-11.0)
--- NOTE | 2024-10-17 07:34 | PCM.PN.HOSP ---
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 Patient declining colonoscopy. She states she did not tolerate prep and does not want to pursue colonoscopy but is agreeable to EGD which we will perform later today. Objective Data Objective Data Vital Signs: Vital Signs Temp Pulse Resp BP Pulse Ox O2 Del Method 98.1 F 72 20 H 125/54 H 97 Room Air 10/17/24 04:26 10/17/24 07:00 10/17/24 07:00 10/17/24 07:00 10/17/24 07:00 10/17/24 07:00 Oxygen Delivery Method Room Air Weight: 58.5 kg Body Mass Index (BMI) 22.8 Intake & Output: Intake and Output for Last 24 Hours 10/15/24 10/16/24 10/17/24 23:59 23:59 23:59 Intake Total 1100 / 1100 800 / 800 Balance 1100 / 1100 800 / 800 Lab / Micro Data 10/17/24 06:25 10/17/24 06:25 Labs: Laboratory Results - last 24 hr 10/16/24 21:56: WBC 7.8, RBC 3.11 L, Hgb 8.5 L, Hct 26.7 L, MCV 85.9, MCH 27.3, MCHC 31.8 L, RDW Std Deviation 46.7 H, RDW Coeff of Kierra 14.9 H, Plt Count 218, MPV 10.2, Immature Gran % (Auto) 0.400, Neut % (Auto) 65.4, Lymph % (Auto) 20.5, [place] % (Auto) 10.7 H, Eos % (Auto) 2.2, Baso % (Auto) 0.8, Absolute Neuts (auto) 5.1, Absolute Lymphs (auto) 1.60, Nucleated RBC % 0, Sodium 135, Potassium 3.3, Chloride 100, Carbon Dioxide 22.7, Anion Gap 13, BUN 38 H, Creatinine 1.01, Estim Creat Clear Calc 34.30 L, Est GFR (MDRD) Non-Af 55 L, BUN/Creatinine Ratio 37.8 H, Glucose 139 H, Lactic Acid 1.8, Calcium 9.2, Total Bilirubin 0.27, AST 18, ALT 13, Alkaline Phosphatase 60, Total Protein 6.1, Albumin 3.8, Globulin 2.3, Albumin/Globulin Ratio 1.6, Lipase 54 10/16/24 22:44: Blood Type O POSITIVE, Antibody Screen POSITIVE, Antibody Identification ANTI-E, Crossmatch See Detail 10/17/24 00:14: Lactic Acid 1.0, Magnesium 1.9, Iron 20 L, TIBC 299, Iron Saturation 7.0 L, Unsaturated IBC 279, Ferritin 23 Micro: Microbiology 10/16/24 21:56 Stool Stool Occult Blood (LOIS) - Final Occult Blood Positive Radiography Diagnostic Testing: Radiology Impression Abdomen/Pelvis CTA 10/16/24 22:10 IMPRESSION: 1. There is new focal hyperdensity within a diverticulum near the hepatic flexure, for which gastrointestinal bleeding is not excluded. Dense enteric contents could also appear similar, and absence of a noncontrast series limits their differentiation. Recommend GI consultation. 2. Extensive colonic diverticulosis, without current evidence of acute diverticulitis. 3. 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 4. 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 5. Hepatic steatosis. [place]oux Alert: Possible GI bleed The critical information above was relayed directly by me by telephone to Ketan Couch on 10/16/2024 at 10:33 pm with readback verification. Reading Location: [id number] Physical Exam Const alert, oriented x3, no apparent distress, average body habitus and well nourished Constitutional Narrative: Elderly, white female, sitting up in a chair at the bedside, nursing at bedside, appears comfortable, nontoxic, interacts appropriately HEENT head/scalp atraumatic and moist oral mucous membranes HEENT Narrative: Mallampati 2, no thrush Head and Scalp: normocephalic Resp normal respiratory effort, no retractions, no use of accessory muscles and clear to auscultation bilaterally Auscultation: Negative for rales, rhonchi or wheezes Cardio regular rate, regular rhythm, S1 normal heart sound, S2 normal heart sound, no rub, no gallops and no clicks; Negative for no murmurs Cardio Narrative: Patient with a 4-6 systolic murmur loudest at left lower sternal border GI normal to inspection, nondistended, normoactive bowel sounds, soft to palpation and non-tender Extremity no clubbing, cyanosis or edema Extremity Narrative: 2+ pedal pulses Neuro moves all extremities and no focal motor deficits Speech: speech normal Psych affect normal Psych Narrative: Talkative, eye contact is good and patient interacts appropriately Assessment & Plan Assessment/Plan (1) GI bleed: QUALIFIERS: GI bleed type/associated pathology: unspecified gastrointestinal hemorrhage type Qualified Code(s): K92.2 - Gastrointestinal hemorrhage, unspecified (2) Acute anemia: PLAN: Plan GI bleed - CT performed and shows new focal hyperdensity in the diverticulum near the hepatic flexure -Question ischemic colitis - Ruins colored stool with positive guaiac in emergency department - Continue Protonix drip - Patient refusing colonoscopy but amenable to EGD - Previously had angiodysplastic lesions in the upper GI tract -Hold home aspirin - GI consultation is pending Acute anemia - Hemoglobin has been between 12 and 13 at baseline as of recently - Down to 8.5 on presentation - Was transfused 2 units packed blood blood cells and hemoglobin is now back up to 12 - Continue Protonix drip - Repeat CBC in a.m. - GI consultation pending - Patient refuses colonoscopy but amenable to EGD Non-anion gap metabolic acidosis - Serum bicarb is 16 next-suspect related to elevated chloride - Stop IV fluids - Repeat lab in a.m. - Patient's mentation is good and shows no signs of severe acidosis GERD/history of GI bleed - Continue continue Protonix but IV drip for now until EGD performed - Previous EGD performed in March 2020 for found 3 bleeding angiodysplastic lesions which were treated with heater probe For patient with cardiac murmur on exam his do suspect that set her up for increased risk of angiodysplastic lesion formation History of stroke - Hold home aspirin due to the above - Restart as able Essential hypertension - Hold home antihypertensives - Look to reinitiate once blood pressure shows stability History of cardiac arrhythmia - Patient has pacemaker Memory loss -documented Alzheimer's type dementia - Continue home memantine Restless leg syndrome - Continue home Mirapex History of breast cancer - DCIS - Outpatient follow-up Depression/anxiety - Restart Lexapro DVT prophylaxis - SCDs CODE STATUS - Full code Charges/Coding Visit Charges Inpatient E&M: 05676 Subs Hosp L2
[2024-10-17 08:13] LABS: AST(SGOT) 88 U/L (<=31); Alanine Aminotransfer ALT/SGPT 27 U/L (<=34); Albumin, Serum 2.4 g/dL (3.4-4.8); Alkaline Phosphatase 80 U/L (35-104); Anion Gap 15 (5-15); BUN 8 mg/dL (4-19); BUN/Creat Ratio 13.5 RATIO (10-20); Calcium,Total 7.5 mg/dL (7.6-11.0); Carbon Dioxide 16.0 mmol/L (21.0-32.0); Chloride 111 mmol/L (98-108); Estimated Creatinine Clearance 43.30 ml/min (50-250); Globulin 3.4 g/dL (2.2-4.2); Glucose 100 mg/dL (70-99); Potassium 4.0 mmol/L (3.3-5.1)
[2024-10-17] MEDS: Pantoprazole Sodium 80 MG in 0.9% Normal Saline (100mL Bag) 80 ML 10 MG CONT INF (08:32)
--- NOTE | 2024-10-17 09:54 | CASEMGMT ---
ANNIE GAUTHIER Assessment Face to Face with patient for initial transition planning/care coordination assessment. ANNIE GAUTHIER introduced self and role at [facility], pt voices understanding. Pt is A&Ox4 and is resting comfortably in the chair. Care providers, pharmacy, and demographics verified. Pt's daughter (Amina) at bedside. During the end of the conversation, the pt and the pt's daughter began to argue about the pts living conditions. Amina states that the pt does not care for herself at home as she should and would like a SW to speak with her. SW notified. Admitting dx: GI BLeed with ABLA LACE Strata: 3 PCP: Vikram Segura Specialists: JUSTOG (Cardio), Friend (GI) Preferred Pharmacy: [facility] Insurance: [facility] DUAL COMPLETE, [facility] Prescription Benefit: Yes LNOK: Amina Ramirez (LOUISE), Yasmine Ramirez (LOUISE) Living Arrangements: Patient lives in a single-story home/apartment with an apartment underneath hers. Patient states that she lives on the main level and that she has a downstairs neighbor that lives in the basement portion. Patient states that there are two steps to enter the home. ADLs/IADLs: states independent. 6-click score is 18. PT eval pending. Transportation: Self, daughter. Denies concerns DME: patient has a history with oxygen use through [employer] (Nocturnal only). Pt reports that she has returned the equipment. Pt is now on RA. Patient also states that she has a medical alert button, walk-in shower with grab bars and a seat, cane, and Rollator. HHC/SNF: patient denies history. Patient states that she has a history with outpatient physical therapy through [facility]. Patient states that she currently goes to [facility] on her own for exercise. Direction Home: patient has a telephonic nurse case manager through [employer] (Myrtle Mcdonald @ [phone]). This manager lighting talked to Myrtle on the phone who stated that the patient has declined aide services as well as delivered meals. Myrtle does state that the patient has a medical alert button through [employer]. SW updated. Myrtle reports that she will call the pt @ the time of DC and will discuss with the pt again regarding home delivered meals as well as a in home aide. Pt?s goal: return home and continue working out at [facility] to maintain independence. Plan: Anticipate eventual DC home once medically ready. Pt currently declines all needs. However, the pts daughter states that the pt needs resources. This RN CM provided emotional support and also stated that CM can better formulate a safe DC plan after PT has worked with the pt. Pt and pt daughter agree and deny further questions/concerns for this RN ABRAHAN. Tigist Eric RN CM
--- NOTE | 2024-10-17 10:46 | NURSING ---
transferred off floor with endo staff at this time
[2024-10-17] MEDS: Lactated Ringers 1,000 ML 15 ML IV (11:15)
--- NOTE | 2024-10-17 12:00 | EGD_PTH ---
PATIENT: XAVIER RAHMAN LOC: MS3 U#:[id number] AGE/SX: 84/F ROOM: [facility] [place] RE10/17/[address]: Dr. Vikram Tillman DO : 1940 BED: 1 DIS: 10/24/2024 SPEC #: [id number] RECD: 10/17/24 13:15 STATUS: JAYLENE REPerez #: [id number] XOCHILT: 10/17/24 12:[address]: Brad Winslow DEPT: SURGICAL PATHOLOGY RECD BY: Willie Pendleton ENTERED: 10/17/24 14:43 SP TYPE: EGD BIOPSY BREE DR: DO Dr. Vikram Christianson MD Dr. Kathryn Lee, DO Tissues: A - Esophagus, NOS Procedures: Surgery Specimen Level IV HEADER OPERATION: EGD, biopsy PRE-OP DIAGNOSIS: History of GI bleed, GI bleed, history of angiodysplasia of intestinal tract TISSUE SUBMITTED: A- Distal esophagus biopsy MICROSCOPIC DIAGNOSIS A. Distal esophagus, biopsy: - Columnar mucosa negative for goblet cell metaplasia. - Negative for dysplasia. MICROSCOPIC DESCRIPTION Slides are reviewed. GROSS DESCRIPTION A. Received in fixative is one container labeled with the patient's name and designated Distal esophagus biopsy. The specimen consists of two irregular fragments of light rodriguez soft tissue that in aggregate measure 0.3 and 0.6 cm. The specimen is totally submitted in one cassette. Alesia 10/17/2024 CPT:43289
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
--- NOTE | 2024-10-17 12:21 | EX.PCM.CON.G ---
HPI Consult Data Date of Consult: 10/17/24 HPI Narrative Reason for Consultation: GI bleed HPI Narrative: XAVIER RAHMAN, is a 84 F who presents 84-year-old female who presented to [facility] ED on 07/15/2024 with bright red blood per rectum. Hospital course as noted below. Patient discharged home in stable condition on 07/17. She presented with hemoglobin 5.7 at that time, transfused 3 units of blood with repeat hemoglobin 8.7. 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 CTA abdomen pelvis unremarkable. She presented back to the ED last night with abdominal pain and multiple episodes of bright red blood per rectum mixed with melena. CTA was ordered and it showed active bleeding in the colon. Her BUN/creatinine ratio was elevated and she did have a decrease in hemoglobin. She agreed to only have an upper endoscopy and not undergo colonoscopy. FORMERLY [facility], [facility] Medical History Anemia GI bleed History of COPD Head injury Laceration of head Inability to ambulate due to knee ZONIA (obstructive sleep apnea) Essential hypertension History of dementia History of CVA in adulthood Recurrent episodes of unresponsiveness TIA (transient ischemic attack) Confusion COPD (chronic obstructive pulmonary disease) Alzheimer's dementia History of GI bleed GERD (gastroesophageal reflux disease) Anxiety and depression COVID-19 Hypertensive emergency without congestive heart failure DCIS (ductal carcinoma in situ) of breast Vitamin D deficiency Hypercholesterolemia Arthritis Ductal carcinoma in situ (DCIS) of right breast Fall Hypothyroidism Home Medications ?Medication ?Instructions ?Recorded ?Last Taken ?Type pramipexole 1.5 mg tablet 1.5 mg PO DAILY 10/16/22 07/14/24 History valsartan 320 1 tab PO DAILY 10/16/22 07/14/24 History mg-hydrochlorothiazide 25 mg tablet memantine 10 mg tablet 10 mg PO DAILY 04/28/23 07/15/24 History amlodipine 5 mg tablet 5 mg PO DAILY 06/11/23 07/14/24 History pantoprazole 40 mg tablet,delayed 40 mg PO BID 30 days #60 tabs 03/25/24 07/15/24 Rx release diphenhydramine 25 1 tab PO QHS PRN sleep 07/15/24 07/14/24 History mg-acetaminophen 500 mg tablet (Acetaminophen PM) escitalopram oxalate 5 mg tablet 5 mg PO QPM 07/15/24 07/14/24 History aspirin 81 mg capsule 81 mg PO DAILY 30 days #30 caps 07/17/24 Unknown Rx docusate sodium 100 mg capsule 100 mg PO QHS constipation 10/16/24 Unknown History hydralazine 10 mg tablet 10 mg PO BID PRN PRN blood pressure 10/16/24 Unknown History Allergy/AdvReac Type Severity Reaction Status Date / Time lisinopril Allergy Mild cough Verified 10/16/24 19:21 alendronate sodium (From Allergy Unknown unknown Verified 10/16/24 19:21 Fosamax) Sulfa (Sulfonamide Allergy Rash Verified 10/16/24 19:21 Antibiotics) atorvastatin (From Lipitor) AdvReac Mild muscle Verified 10/16/24 19:21 aches rosuvastatin (From Crestor) AdvReac Mild muscle Verified 10/16/24 19:21 aches codeine AdvReac Nausea Verified 10/16/24 19:21 NSAIDS (Non-Steroidal AdvReac Bleeding Verified 10/16/24 19:21 Anti-Inflamma Family History Mother Heart disease CVA (cerebral vascular accident) Father Heart disease Surgical History Status post placement of implantable loop recorder (11/08/22) History of right hip replacement History of left mastoidectomy History of lumpectomy of right breast History of thyroid surgery History of hysterectomy Social History household members: spouse Smoking Status: Former smoker how long ago did patient quit smoking: Quit ~ 24-25 years prior. alcohol intake: current alcohol intake frequency: a few times a month details: 1 drink/[place] nightly. substance use type: other details: Given THC chew per her family for sleep but prior no substance use. ROS Constitutional Constitutional: Denies fatigue, fever(s), poor appetite, weight gain or weight loss Gastrointestinal Gastrointestinal: Denies belching, bloating, change in bowel habits, change in stool character, chewing difficulty, coffee ground emesis, constipation, cramping, diarrhea, dyspepsia, dysphagia, early satiety, excessive flatus, fecal incontinence, heartburn, hematemesis, hematochezia, hemorrhoids, loose stools, melena, nausea, odynophagia, rectal bleeding, tenesmus, vomiting or weight changes Physical Exam Const alert, oriented x3, no apparent distress, average body habitus and healthy appearing General Appearance: cooperative HEENT normocephalic, head/scalp atraumatic and hearing grossly normal bilaterally HEENT Narrative: Mucous membranes dry. Eyes PERRL, EOMs intact bilaterally and conjunctivae normal Neck no lymphadenopathy, supple and no JVD Resp normal respiratory effort, no retractions, no use of accessory muscles and clear to auscultation bilaterally Cardio regular rate and regular rhythm GI normal to inspection, nondistended, normoactive bowel sounds, soft to palpation, non-tender and non-distended GI Narrative: Patient was noted to have maroon stool on gloved finger by ER physician. Extremity normal to inspection, full ROM and no clubbing, cyanosis or edema Skin Skin Narrative: Patient has no evidence of rash, abscess, wounds or jaundice. Neuro oriented x3, CN's II-XII intact bilaterally, moves all extremities and no focal motor deficits Sensorium / Orientation: awake, alert, oriented to person, oriented to place and oriented to time Speech: speech normal Psych affect normal Lab / Micro Data 10/17/24 06:25 10/17/24 06:25 Labs: Laboratory Results - last 24 hr 10/16/24 21:56: WBC 7.8, RBC 3.11 L, Hgb 8.5 L, Hct 26.7 L, MCV 85.9, MCH 27.3, MCHC 31.8 L, RDW Std Deviation 46.7 H, RDW Coeff of Kierra 14.9 H, Plt Count 218, MPV 10.2, Immature Gran % (Auto) 0.400, Neut % (Auto) 65.4, Lymph % (Auto) 20.5, [place] % (Auto) 10.7 H, Eos % (Auto) 2.2, Baso % (Auto) 0.8, Absolute Neuts (auto) 5.1, Absolute Lymphs (auto) 1.60, Nucleated RBC % 0, Sodium 135, Potassium 3.3, Chloride 100, Carbon Dioxide 22.7, Anion Gap 13, BUN 38 H, Creatinine 1.01, Estim Creat Clear Calc 34.30 L, Est GFR (MDRD) Non-Af 55 L, BUN/Creatinine Ratio 37.8 H, Glucose 139 H, Lactic Acid 1.8, Calcium 9.2, Total Bilirubin 0.27, AST 18, ALT 13, Alkaline Phosphatase 60, Total Protein 6.1, Albumin 3.8, Globulin 2.3, Albumin/Globulin Ratio 1.6, Lipase 54 10/16/24 22:44: Blood Type O POSITIVE, Antibody Screen POSITIVE, Antibody Identification ANTI-E, Crossmatch See Detail 10/17/24 00:14: Lactic Acid 1.0, Magnesium 1.9, Iron 20 L, TIBC 299, Iron Saturation 7.0 L, Unsaturated IBC 279, Ferritin 23 10/17/24 06:25: WBC 19.2 H, RBC 3.82 L, Hgb 12.0, Hct 36.1 L, MCV 94.5 D, MCH 31.4, MCHC 33.2, RDW Std Deviation 58.4 H, RDW Coeff of Kierra 17.4 H, Plt Count 265, MPV 9.7, Immature Gran % (Auto) 1.000 H, Neut % (Auto) 86.6 H, Lymph % (Auto) 5.7 L, [place] % (Auto) 6.2, Eos % (Auto) 0.1, Baso % (Auto) 0.4, Absolute Neuts (auto) 16.6 H, Absolute Lymphs (auto) 1.10, Nucleated RBC % 0.2, Sodium 142, Potassium 4.0, Chloride 111 H, Carbon Dioxide 16.0 L, Anion Gap 15, BUN 8, Creatinine 0.59 L, Estim Creat Clear Calc 43.30 L, Est GFR (MDRD) Non-Af 89, BUN/Creatinine Ratio 13.5, Glucose 100 H, Calcium 7.5 L, Phosphorus 1.9 L, Total Bilirubin 4.52 H, AST 88 H, ALT 27, Alkaline Phosphatase 80, Total Protein 5.8 L, Albumin 2.4 L, Globulin 3.4, Albumin/Globulin Ratio 0.7 L, TSH 0.718 Micro: Microbiology 10/16/24 21:56 Stool Stool Occult Blood (LOIS) - Final Occult Blood Positive Imaging Radiology Impression Abdomen/Pelvis CTA 10/16/24 22:10 IMPRESSION: 1. There is new focal hyperdensity within a diverticulum near the hepatic flexure, for which gastrointestinal bleeding is not excluded. Dense enteric contents could also appear similar, and absence of a noncontrast series limits their differentiation. Recommend GI consultation. 2. Extensive colonic diverticulosis, without current evidence of acute diverticulitis. 3. 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 4. 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 5. Hepatic steatosis. Mcdonald Alert: Possible GI bleed The critical information above was relayed directly by me by telephone to Ketan Couch on 10/16/2024 at 10:33 pm with readback verification. Reading Location: [id number] Assessment & Plan Assessment/Plan (1) History of GI bleed: (2) GI bleed: QUALIFIERS: GI bleed type/associated pathology: unspecified gastrointestinal hemorrhage type Qualified Code(s): K92.2 - Gastrointestinal hemorrhage, unspecified (3) History of angiodysplasia of intestinal tract: PLAN: 84-year-old with history of GI bleed involving upper GI tract secondary to angiodysplastic lesions in the stomach and small bowel presents with multiple episodes of bright red blood per rectum including hematochezia and melena. CTA does show some possible extravasation with active bleeding in the splenic flexure. She will allow us to undergo upper endoscopy but does not want to undergo colonoscopy. She was explained alternatives, risk and benefits include not withstanding bleeding, fracture, sepsis, perforation, need for urgent . She will have an ASA of 3. Charges/Coding Visit Charges Inpatient E&M: 38314 Init Hosp L3
--- NOTE | 2024-10-17 13:00 | OP.CCLET_ITS ---
10/17/2024 Vikram Segura [address] [place] [address] Re : Upper GI endoscopy procedure for Radha Ramirez Dear Dr. Segura This procedure was performed on Thursday, October 17, 2024. My impressions and recommendations are as follows: Impressions : - Z-line irregular, 40 cm from the incisors. Biopsied. - Medium-sized hiatal hernia. - Gastric mucosal atrophy. - No gross lesions in the entire examined duodenum. Recommendations : - [facility]. - Clear liquid diet. - Continue present medications. My findings are described in the full procedure note, which is enclosed. If I can be of further assistance, please feel free to contact me at . Sincerely, Brad Winslow, 10/17/2024 1:00:06 PM This report has been signed electronically.
--- NOTE | 2024-10-17 13:00 | OP.EGD_ITS ---
Patient Name: Radha Ramirez Procedure Date: 10/17/2024 12:26 PM Date of : 1940 Age: 84 Procedure: Upper GI endoscopy Indications: Hematochezia, Melena Providers: Brad Winslow DO Medicines: Monitored Anesthesia Care Patient Profile: This is an 84 year old female. Refer to note in patient chart for documentation of history and physical. Patient has symptoms of acute abdominal cramping. Her most recent EGD for treatment of bleeding was within the past three months. Complications: No immediate complications. Procedure: Pre-Anesthesia Assessment: - Prior to the procedure, a History and Physical was performed, and patient medications and allergies were reviewed. The patient is competent. The risks and benefits of the procedure and the sedation options and risks were discussed with the patient. All questions were answered and informed consent was obtained. Patient identification and proposed procedure were verified by the physician in the pre-procedure area. Mental Status Examination: alert and oriented. Airway Examination: normal oropharyngeal airway and neck mobility. Respiratory Examination: clear to auscultation. CV Examination: normal. Prophylactic Antibiotics: The patient does not require prophylactic antibiotics. Prior Anticoagulants: The patient has taken no anticoagulant or antiplatelet agents except for NSAID medication. ASA Grade Assessment: II - A patient with mild systemic disease. After reviewing the risks and benefits, the patient was deemed in satisfactory condition to undergo the procedure. The anesthesia plan was to use monitored anesthesia care (MAC). Immediately prior to administration of medications, the patient was re-assessed for adequacy to receive sedatives. The heart rate, respiratory rate, oxygen saturations, blood pressure, adequacy of pulmonary ventilation, and response to care were monitored throughout the procedure. The physical status of the patient was re-assessed after the procedure. After obtaining informed consent, the endoscope was passed under direct vision. Throughout the procedure, the patient's blood pressure, pulse, and oxygen saturations were monitored continuously. The Endoscope was introduced through the mouth, and advanced to the fourth part of the duodenum. Small bowel enteroscopy was deemed necessary. The upper GI endoscopy was accomplished without difficulty. The patient tolerated the procedure well. Scope In: 12:41:53 PM Scope Out: 12:46:21 PM Total Procedure Duration Time 0 hours 4 minutes 28 seconds Findings: The Z-line was irregular and was found 40 cm from the incisors. Biopsies were taken with a cold forceps for histology. Verification of patient identification for the specimen was done. Estimated blood loss was minimal. A medium-sized hiatal hernia was present. Diffuse atrophic mucosa was found in the entire examined stomach. No gross lesions were noted in the entire examined duodenum. Impression: - Z-line irregular, 40 cm from the incisors. Biopsied. - Medium-sized hiatal hernia. - Gastric mucosal atrophy. - No gross lesions in the entire examined duodenum. Recommendation: - [facility]. - Clear liquid diet. - Continue present medications. Procedure Code(s): --- Professional --- 08125, Small intestinal endoscopy, enteroscopy beyond second portion of duodenum, not including ileum; with biopsy, single or multiple CPT copyright 2021 [employer]. All rights reserved. The codes documented in this report are preliminary and upon financial retirement plan specialist review may be revised to meet current compliance requirements. Brad Winslow DO 10/17/2024 1:00:06 PM This report has been signed electronically. Number of Addenda: 0 Note Initiated On: 10/17/2024 12:26 PM
--- NOTE | 2024-10-17 13:01 | PCM.POST.ANE ---
Anesthesia: Postop Eval I Current Vital Signs Temperature: 97.4 F Pulse Rate: 77 Blood Pressure: 110/90 Respiratory Rate: 16 Pulse Ox: 96 Oxygen Delivery Method: Room Air Assessment Airway patent: Yes Spontaneous unlabored respirations: Yes Mental status: Awake and Calm nausea: No Vomiting: No Anesthesia Complication: No Fluid Hydration Crystalloid volume administer (ml): 300 Total IV fluid infused: 300 Progress Note Anesthesia document: Postop Eval 1 completed: Yes
[2024-10-17] MEDS: Memantine Hydrochloride 10 MG Tablet PO (13:58)
--- NOTE | 2024-10-17 14:50 | PCM.POSTANE2 ---
Anesthesia Postop Eval I Sum Postop Eval Completion status Anesthesia document: Postop Eval 1 completed: Yes Anesthesia Postop Eval I Summary Anesthesia Postop Eval I Summary: Anesthesia Postop Eval I: Assessment Summary Airway patent Yes 10/17/24 13:01 [email or web address] Spontaneous unlabored Yes 10/17/24 13:01 [email or web address] respirations Mental status Awake,Calm 10/17/24 13:01 [email or web address] nausea No 10/17/24 13:01 [email or web address] Vomiting No 10/17/24 13:01 [email or web address] Anesthesia Postop Eval I: Fluid Summary Crystalloid volume administer 300 10/17/24 13:01 [email or web address] (ml) Colloids volume administered ( ml) Blood Product volume administered (ml) Total IV fluid infused 300 10/17/24 13:01 [email or web address] Anesthesia Postop Eval I: Summary Notes Anesthesia Complication No 10/17/24 13:01 [email or web address] Anesthesia Complication Comment: Post-operative progress note Anesthesia: Postop Eval II Evaluation Mental status: Awake Pain Level: 0 nausea: No Vomiting: No
--- NOTE | 2024-10-17 16:10 | CASEMGMT ---
Social Work SW received referral that pt's dgt would like to meet and discuss placement. SW attempted to meet with pt and pt and dgt is out of room. SW attempted a second time and pt present but dgt is not in the room. Pt stating that she has been living at home independently and feels she can return home. Pt voicing frustration with her dgt who pt feels is too controlling. Therapy evals are pending. SW will continue to follow for safe dc planning. DAMIAN Palma
[2024-10-17] MEDS: 0.9% Normal Saline (250mL Bag) 250 ML 15 ML IV (16:27)
[2024-10-17] MEDS: Sodium Phosphate/Na Biphos 21 MMOL in 0.9% Normal Saline (250mL Bag) 250 ML 84 MMOL IV (16:27)
[2024-10-17] MEDS: 0.9% Saline Lock 10 ML Syringe IV (22:35)
[2024-10-18] VITALS (13 sets, daily range): BP systolic 107–146; BP diastolic 34–86; PULSE 71–88; RESP 15–16; TEMP 36.4–37.1; O2SAT 88–98; BMI 22.8
[2024-10-18] MEDS: 0.9% Saline Lock 10 ML Syringe IV (02:35)
--- NOTE | 2024-10-18 03:14 | NURSING ---
0215: answered call light. pt c/o not feeling well. noted to be restless, denies abd or chest pain. denies SOB. 88% on RA. anxious with restless legs noted. VSS. placed on 2l n/c. noted that pt rcvd mirapex 1.5 mg po during the day. according to pt's home med list, she takes mirapex @ hs for restless leg. obtained order to change mirapex 1.5 mg po to qhs. gave morphine 2 mg iv and compazine at this time for comfort. will continue to monitor.
[2024-10-18 07:54] LABS: Hematocrit 20.6 % (37-47); Hemoglobin 6.8 g/dL (12.0-15.0); Immature Granulocytes Count 0.030 X10^3/uL (0.0-0.0); Mean Corp Hgb Conc 33.0 g/dL (32-36); Mean Corpuscular Volume 86.6 fL (81-99); Mean Platelet Vol. 10.1 fl (6.2-12.0); NRBC Flagged by Analyzer 0 % (0-5); Platelet Count 156 K/mm3 (150-450); RBC Distribution Width CV 16.1 % (11.6-14.6); RBC Distribution Width SD 50.5 fl (35.1-43.9); Red Blood Count 2.38 M/mm3 (4.2-5.4); White Blood Count 6.4 K/mm3 (4.4-11.0)
[2024-10-18] MEDS: Memantine Hydrochloride 10 MG Tablet PO (07:56)
--- NOTE | 2024-10-18 08:09 | NURSING ---
talked with jenny Rowe about redrawing- stat Hgb
[2024-10-18 08:41] LABS: Hemoglobin 7.3 g/dL (12.0-15.0)
--- NOTE | 2024-10-18 12:10 | CASEMGMT ---
Discharge Planning A list of SNF providers including quality and resource use data and consistent with the patient's preferred geographic region, medical needs, and insurance network was created in [employer] Guide.? This list was provided to the RN ABRAHAN. Mela Souza, Discharge Planning Asst.
[2024-10-18] MEDS: Ensure Plus High Protein 120 ML LIQUID PO ×2 (12:20→16:47)
--- NOTE | 2024-10-18 12:20 | CASEMGMT ---
Addendum entered by Yenni Adame 10/18/24 15:23: ANNIE GAUTHIER into pt room, pt dtr present. Pt and dtr have decided on choices of 1. [facility] and 2. [facility]. PT in to eval pt at this time. Referral to be sent after PT eval completed. Updated hospitalist on pt dc plan. Addendum entered by Yenni Adame 10/18/24 13:58: ANNIE GAUTHIER into pt room, pt states she has not reached her dtr yet. She did call while ANNIE GAUTHIER present and left her a message. Made pt aware this ANNIE GAUTHIER could share the same information to her dtr's cell phone. Pt is agreeable and requests this. Information sent via [employer] to dtr's phone number. Original Note: Spoke with therapy regarding pt session. ANNIE GAUTHIER into pt room, discussed with patient how therapy went. Pt states she feels she needs further therapy prior to returning home. Patient was provided a list of SNF providers including quality and resource use data and consistent with the patient?s preferred geographic region, medical needs, and insurance network were provided from the [employer] Guide. ANNIE GAUTHIER listened to pt as she deciphered through the list. Pt then states she would like to speak to her dtr regarding this decision. She asks ANNIE GAUTHIER to come back as pt dtr is at lunch with a friend. She asks to come back approx 1:30pm. ANNIE GAUTHIER to follow. Initialized on 10/18/24 13:30 - END OF NOTE
--- NOTE | 2024-10-18 12:20 | CASEMGMT ---
Addendum entered by Yenni Adame 10/18/24 15:43: TC to Cecilia nurse ABRAHAN at [facility] to attempt to reach D[facility] for C-9 approval. Left vm. Ortho here now and will not dc due to no confirmation of C-9 approval. Addendum entered by Yenni Adame 10/18/24 15:23: ANNIE GAUTHIER into pt room, pt dtr present. Pt and dtr have decided on choices of 1. [facility] and 2. [facility]. PT in to eval pt at this time. Referral to be sent after PT eval completed. Updated hospitalist on pt dc plan. Addendum entered by Yenni Adame 10/18/24 13:58: ANNIE GAUTHIER into pt room, pt states she has not reached her dtr yet. She did call while RN ABRAHAN present and left her a message. Made pt aware this ANNIE GAUTHIER could share the same information to her dtr's cell phone. Pt is agreeable and requests this. Information sent via [employer] to dtr's phone number. Original Note: Spoke with therapy regarding pt session. ANNIE GAUTHIER into pt room, discussed with patient how therapy went. Pt states she feels she needs further therapy prior to returning home. Patient was provided a list of SNF providers including quality and resource use data and consistent with the patient?s preferred geographic region, medical needs, and insurance network were provided from the [employer] Guide. ANNIE GAUTHIER listened to pt as she deciphered through the list. Pt then states she would like to speak to her dtr regarding this decision. She asks ANNIE GAUTHIER to come back as pt dtr is at lunch with a friend. She asks to come back approx 1:30pm. ANNIE GAUTHIER to follow.
[2024-10-18 15:06] LABS: Hemoglobin 7.0 g/dL (12.0-15.0)
--- NOTE | 2024-10-18 18:11 | PCM.PN.HOSP ---
Reason for Visit Reason for Visit: Blood per rectum Subjective Subjective Patient states she is feeling well. Hemoglobin has fluctuated somewhat I suspect that hemoglobin from yesterday at 12 was an error. Hemoglobin is hovering between 7 and 8 currently. No signs of obvious bleeding. Discussed need for colonoscopy. Family at bedside and agree. Patient is amenable with slow prep. Objective Data Objective Data Vital Signs: Vital Signs Temp Pulse Resp BP Pulse Ox O2 Del Method O2 Flow Rate 97.5 F L 88 16 107/74 95 Room Air 2 10/18/24 17:53 10/18/24 17:53 10/18/24 17:53 10/18/24 17:53 10/18/24 17:53 10/18/24 17:53 10/18/24 06:38 Oxygen Flow Rate (L/min) 2 Oxygen Delivery Method Room Air Weight: 58.5 kg Body Mass Index (BMI) 22.8 Intake & Output: Intake and Output for Last 24 Hours 10/16/24 10/17/24 10/18/24 23:59 23:59 23:59 Intake Total 1100 / 1100 3238.25 / 3238.25 750 / 750 Output Total 2 / 2 Balance 1100 / 1100 3236.25 / 3236.25 750 / 750 Lab / Micro Data 10/18/24 14:50 10/17/24 06:25 Labs: Laboratory Results - last 24 hr 10/16/24 22:44: Crossmatch See Detail 10/18/24 04:34: WBC Cancelled, Corrected WBC Cancelled, RBC Cancelled, Hgb Cancelled, Hct Cancelled, MCV Cancelled, MCH Cancelled, MCHC Cancelled, RDW Std Deviation Cancelled, RDW Coeff of Kierra Cancelled, Plt Count Cancelled, MPV Cancelled, Immature Gran % (Auto) Cancelled, Neut % (Auto) Cancelled, Lymph % (Auto) Cancelled, [place] % (Auto) Cancelled, Eos % (Auto) Cancelled, Baso % (Auto) Cancelled, Absolute Neuts (auto) Cancelled, Absolute Lymphs (auto) Cancelled, Total Counted Cancelled, Neutrophils % (Manual) Cancelled, Band Neutrophils % Cancelled, Lymphocytes % (Manual) Cancelled, Monocytes % (Manual) Cancelled, Eosinophils % (Manual) Cancelled, Basophils % (Manual) Cancelled, Metamyelocytes % Cancelled, Myelocytes % Cancelled, Promyelocytes % Cancelled, Blast Cells % Cancelled, Plasma Cell % (Manual) Cancelled, Other Cells % Cancelled, Nucleated RBC % Cancelled, Nucleated RBCs/100 WBC Cancelled, Differential Comment Cancelled, Diff Path Review Cancelled, Hypersegmented Neuts Cancelled, Atypical Lymphocytes Cancelled, Reactive Lymphocytes Cancelled, Smudge Cells Cancelled, Toxic Granulation Cancelled, Toxic Vacuolation Cancelled, Dohle Bodies Cancelled, Sharon Rods Cancelled, Platelet Estimate Cancelled, Plt Morphology Comment Cancelled, RBC Morphology Cancelled 10/18/24 04:34: RBC Morphology Cancelled, Polychromasia Cancelled, Hypochromasia Cancelled, Basophilic Stippling Cancelled, Anisocytosis Cancelled, Microcytosis Cancelled, Macrocytosis Cancelled, Spherocytes Cancelled, Sickle Cells Cancelled, Target Cells Cancelled, Tear Drop Cells Cancelled, Ovalocytes Cancelled, Stomatocytes Cancelled, Spivey-Krakow Bodies Cancelled, John Cells Cancelled, Bite Cells Cancelled, Crenated Cell Cancelled, Acanthocytes (Spur) Cancelled, Rouleaux Cancelled, Schistocytes Cancelled, Phosphorus 2.6 L 10/18/24 07:30: WBC 6.4, RBC 2.38 L, Hgb 6.8 L, Hct 20.6 L, MCV 86.6 D, MCH 28.6, MCHC 33.0, RDW Std Deviation 50.5 H, RDW Coeff of Kierra 16.1 H, Plt Count 156, MPV 10.1, Immature Gran % (Auto) 0.500, Neut % (Auto) 60.1, Lymph % (Auto) 21.2, [place] % (Auto) 12.5 H, Eos % (Auto) 5.1 H, Baso % (Auto) 0.6, Absolute Neuts (auto) 3.9, Absolute Lymphs (auto) 1.36, Nucleated RBC % 0 10/18/24 08:30: Hgb 7.3 L 10/18/24 14:50: Hgb 7.0 L Micro: Microbiology 10/16/24 21:56 Stool Stool Occult Blood (LOIS) - Final Occult Blood Positive Physical Exam Const alert, oriented x3, no apparent distress, average body habitus, healthy appearing and well nourished Constitutional Narrative: Elderly, white female, sitting up in a chair at the bedside, nursing and family at the bedside, appears comfortable, nontoxic, interacts appropriately General Appearance: cooperative HEENT normocephalic, head/scalp atraumatic and moist oral mucous membranes Resp normal respiratory effort, no retractions, no use of accessory muscles and clear to auscultation bilaterally Auscultation: Negative for rales, rhonchi or wheezes Cardio regular rate, regular rhythm, S1 normal heart sound, S2 normal heart sound, no rub, no gallops and no clicks; Negative for no murmurs Cardio Narrative: Patient with a 4-6 systolic murmur loudest at left lower sternal border GI normal to inspection, nondistended, normoactive bowel sounds, soft to palpation and non-tender Extremity no clubbing, cyanosis or edema Extremity Narrative: 2+ pedal pulses Neuro oriented x3, moves all extremities and no focal motor deficits Speech: speech normal Psych affect normal Psych Narrative: Talkative, eye contact is good and patient interacts appropriately Assessment & Plan Assessment/Plan (1) GI bleed: QUALIFIERS: GI bleed type/associated pathology: unspecified gastrointestinal hemorrhage type Qualified Code(s): K92.2 - Gastrointestinal hemorrhage, unspecified (2) Acute anemia: PLAN: Plan GI bleed - CT performed and shows new focal hyperdensity in the diverticulum near the hepatic flexure -Question ischemic colitis -Patient now agreeable colonoscopy and will perform slow prep with full liquid diet tomorrow and clear liquid diet Tuesday and Tuesday with prep being initiated using MiraLAX on Tuesday - EGD was unremarkable for any findings consistent with GI bleed - Discontinue Protonix drip - Continue to hold home aspirin - GI is following with plans for colonoscopy on Tuesday Acute anemia - Hemoglobin has been between 12 and 13 at baseline as of recently - Down to 8.5 on presentation - Was transfused 2 units packed blood blood cells and hemoglobin was documented up to 12 after transfusion however I suspect this may be a spurious result as repeat hemoglobin today has not been that high and been in the 7-8 range -Plan for colonoscopy on Tuesday - Repeat CBC in a.m. - GI is following Non-anion gap metabolic acidosis - Resolved Generalized weakness/debility - PT and OT are following - Patient did poorly - Plan is for discharge to skilled facility once medically stable GERD/history of GI bleed - Restart home oral PPI - Previous EGD performed in March 2020 for found 3 bleeding angiodysplastic lesions which were treated with heater probe For patient with cardiac murmur on exam his do suspect that set her up for increased risk of angiodysplastic lesion formation History of stroke - Hold home aspirin due to the above - Restart as able Essential hypertension - Continue to hold home antihypertensives - Look to reinitiate once blood pressure shows stability History of cardiac arrhythmia - Patient has pacemaker Memory loss -documented Alzheimer's type dementia - Continue home memantine Restless leg syndrome - Continue home Mirapex History of breast cancer - DCIS - Outpatient follow-up Depression/anxiety - Continue Lexapro DVT prophylaxis - SCDs CODE STATUS - Full code Charges/Coding Visit Charges Inpatient E&M: 63671 Subs Hosp L2
[2024-10-18] MEDS: Furosemide 20 MG/2 ML VIAL IV (20:35)
[2024-10-19 03:52] VITALS: BMI 22.8
[2024-10-19 05:00] VITALS: BP 149/55; PULSE 72; RESP 16; TEMP 36.4; O2SAT 96
[2024-10-19 06:03] LABS: Hematocrit 27.6 % (37-47); Hemoglobin 9.4 g/dL (12.0-15.0); Immature Granulocytes Count 0.060 X10^3/uL (0.0-0.0); Mean Corp Hgb Conc 34.1 g/dL (32-36); Mean Corpuscular Volume 86.0 fL (81-99); Mean Platelet Vol. 10.4 fl (6.2-12.0); NRBC Flagged by Analyzer 0 % (0-5); Platelet Count 160 K/mm3 (150-450); RBC Distribution Width CV 15.1 % (11.6-14.6); RBC Distribution Width SD 46.7 fl (35.1-43.9); Red Blood Count 3.21 M/mm3 (4.2-5.4); White Blood Count 7.6 K/mm3 (4.4-11.0)
[2024-10-19 06:24] LABS: AST(SGOT) 31 U/L (<=31); Alanine Aminotransfer ALT/SGPT 13 U/L (<=34); Albumin, Serum 3.4 g/dL (3.4-4.8); Alkaline Phosphatase 47 U/L (35-104); Anion Gap 8 (5-15); BUN 11 mg/dL (4-19); BUN/Creat Ratio 18.5 RATIO (10-20); Calcium,Total 8.2 mg/dL (7.6-11.0); Carbon Dioxide 24.2 mmol/L (21.0-32.0); Chloride 107 mmol/L (98-108); Estimated Creatinine Clearance 43.30 ml/min (50-250); Globulin 1.9 g/dL (2.2-4.2); Glucose 98 mg/dL (70-99); Magnesium 1.8 mg/dL (1.5-2.2); Potassium 3.2 mmol/L (3.3-5.1)
--- NOTE | 2024-10-19 07:08 | PN.HOSP_ITS ---
Reason for Visit Reason for Visit: Blood in stool Subjective Subjective Patient denies any issues overnight. She is little frustrated she cannot have regular food today but we discussed the importance of getting a good colonoscopy. Patient agreed. She is still amenable to colonoscopy on Tuesday. But is improved to 9.4 after blood transfusion. Objective Data Objective Data Vital Signs: Vital Signs Temp Pulse Resp BP Pulse Ox O2 Del Method O2 Flow Rate 97.6 F L 72 16 149/55 H 96 Nasal Cannula 2 10/19/24 05:00 10/19/24 05:00 10/19/24 05:00 10/19/24 05:00 10/19/24 05:00 10/19/24 05:00 10/19/24 05:00 Oxygen Flow Rate (L/min) 2 Oxygen Delivery Method Nasal Cannula Weight: 58.4 kg Body Mass Index (BMI) 22.8 Intake & Output: Intake and Output for Last 24 Hours 10/17/24 10/18/24 10/19/24 23:59 23:59 23:59 Intake Total 3238.25 / 3238.25 750 / 750 Output Total / 850 / 850 Balance 3236.25 / 3236.25 750 / 500 -850 / -850 Lab / Micro Data 10/19/24 04:37 10/19/24 04:37 Labs: Laboratory Results - last 24 hr 10/16/24 22:44: Crossmatch See Detail 10/18/24 07:30: WBC 6.4, RBC 2.38 L, Hgb 6.8 L, Hct 20.6 L, MCV 86.6 D, MCH 28.6, MCHC 33.0, RDW Std Deviation 50.5 H, RDW Coeff of Kierra 16.1 H, Plt Count 156, MPV 10.1, Immature Gran % (Auto) 0.500, Neut % (Auto) 60.1, Lymph % (Auto) 21.2, [place] % (Auto) 12.5 H, Eos % (Auto) 5.1 H, Baso % (Auto) 0.6, Absolute Neuts (auto) 3.9, Absolute Lymphs (auto) 1.36, Nucleated RBC % 0 10/18/24 08:30: Hgb 7.3 L 10/18/24 14:50: Hgb 7.0 L 10/19/24 04:37: WBC 7.6, RBC 3.21 L, Hgb 9.4 L, Hct 27.6 L, MCV 86.0, MCH 29.3, MCHC 34.1, RDW Std Deviation 46.7 H, RDW Coeff of Kierra 15.1 H, Plt Count 160, MPV 10.4, Immature Gran % (Auto) 0.800, Neut % (Auto) 66.2, Lymph % (Auto) 14.7 L, [place] % (Auto) 13.3 H, Eos % (Auto) 4.2, Baso % (Auto) 0.8, Absolute Neuts (auto) 5.0, Absolute Lymphs (auto) 1.11, Nucleated RBC % 0, Sodium 139, Potassium 3.2 L , Chloride 107, Carbon Dioxide 24.2, Anion Gap 8, BUN 11, Creatinine 0.60 L, E stim Creat Clear Calc 43.30 L, Est GFR (MDRD) Non-Af 88, BUN/Creatinine Ratio 18.5, Glucose 98, Calcium 8.2, Phosphorus 2.2 L, Magnesium 1.8, Total Bilirubin 0.56, AST 31, ALT 13, Alkaline Phosphatase 47, Total Protein 5.3 L, Albumin 3.4, Globulin 1.9 L, Albumin/Globulin Ratio 1.8 Micro: Microbiology 10/16/24 21:56 Stool Stool Occult Blood (LOIS) - Final Occult Blood Positive Physical Exam Const alert, oriented x3, no apparent distress, average body habitus, healthy appearing and well nourished Constitutional Narrative: Elderly, white female, sitting up in a chair at the bedside eating breakfast and watching television, nursing is at the bedside, appears comfortable, nontoxic, interacts appropriately General Appearance: cooperative HEENT normocephalic, head/scalp atraumatic and moist oral mucous membranes Resp normal respiratory effort, no retractions, no use of accessory muscles and clear to auscultation bilaterally Auscultation: Negative for rales, rhonchi or wheezes Cardio regular rate, regular rhythm, S1 normal heart sound, S2 normal heart sound, no rub, no gallops and no clicks; Negative for no murmurs Cardio Narrative: Patient with a 4-6 systolic murmur loudest at left lower sternal border GI normal to inspection, nondistended, normoactive bowel sounds, soft to palpation and non-tender Extremity normal to inspection, full ROM and no clubbing, cyanosis or edema Extremity Narrative: 2+ pedal pulses Neuro moves all extremities and no focal motor deficits Speech: speech normal Psych affect normal Psych Narrative: Talkative, eye contact is good and patient interacts appropriately Assessment & Plan Assessment/Plan (1) GI bleed: QUALIFIERS: GI bleed type/associated pathology: unspecified gastrointestinal hemorrhage type Qualified Code(s): K92.2 - Gastrointestinal hemorrhage, unspecified (2) Acute anemia: PLAN: Plan GI bleed - CT performed and shows new focal hyperdensity in the diverticulum near the hepatic flexure -Question ischemic colitis -Patient now agreeable colonoscopy and will perform slow prep with full liquid diet today and clear liquid diet Tuesday and Tuesday with prep being initiated using MiraLAX on Tuesday - EGD was unremarkable for any findings consistent with GI bleed - Full liquid diet initiated - Continue to hold home aspirin - GI is following with plans for colonoscopy on Tuesday Acute anemia - Hemoglobin has been between 12 and 13 at baseline as of recently - Down to 8.5 on presentation and currently up to 9.4 after 4 units packed red blood cells - Patient has been transfused a total of 4 units since admission - Plan for colonoscopy on Tuesday - Repeat CBC in a.m. - GI is following Hypophosphatemia - IV sodium Phos replacement - Recheck in a.m. Hypokalemia - Oral 60 mEq p.o. potassium replacement - Recheck in a.m. Generalized weakness/debility - PT and OT are following - Patient did poorly - Plan is for discharge to skilled facility once medically stable-->after Tuesday GERD/history of GI bleed -Continue home PPI - Previous EGD performed in March 2020 for found 3 bleeding angiodysplastic lesions which were treated with heater probe For patient with cardiac murmur on exam his do suspect that set her up for increased risk of angiodysplastic lesion formation History of stroke - Hold home aspirin due to the above - Restart as able Essential hypertension - Restart home amlodipine as blood pressures are starting to trend up - Monitor for ability to restart hydralazine - Look to reinitiate once blood pressure shows stability History of cardiac arrhythmia - Patient has pacemaker Memory loss - documented Alzheimer's type dementia - Continue home memantine Restless leg syndrome - Continue home Mirapex History of breast cancer - DCIS - Outpatient follow-up Depression/anxiety - Continue Lexapro DVT prophylaxis - SCDs CODE STATUS - Full code Charges/Coding Visit Charges Inpatient E&M: 43406 Subs Hosp L2
[2024-10-19 09:00] VITALS: BP 142/51; PULSE 79; RESP 18; TEMP 36.4; O2SAT 95
[2024-10-19] MEDS: Potassium Chloride Oral Tablet 20 MEQ 60 MEQ PO (09:06)
[2024-10-19] MEDS: Memantine Hydrochloride 10 MG Tablet PO (09:06)
[2024-10-19] MEDS: 0.9% Saline Lock 10 ML Syringe IV ×2 (09:07→15:33)
[2024-10-19] MEDS: Sodium Phosphate/Na Biphos 30 MMOL in 0.9% Normal Saline (250mL Bag) 250 ML 62.5 MMOL IV (09:07)
[2024-10-19] MEDS: Polyethylene Glycol 3350 17 GM PACKET PO ×2 (15:33→21:42)
[2024-10-19 16:11] VITALS: BP 155/80; PULSE 75; RESP 18; TEMP 36.8; O2SAT 98
[2024-10-19 19:56] VITALS: BP 142/56; PULSE 73; RESP 18; TEMP 36.6; O2SAT 93
[2024-10-19] MEDS: MELATONIN 10 MG TABLET PO (21:42)
[2024-10-20 02:30] VITALS: BP 148/63; PULSE 66; RESP 18; TEMP 36.7; O2SAT 100
[2024-10-20 05:25] LABS: Hematocrit 28.0 % (37-47); Hemoglobin 9.3 g/dL (12.0-15.0); Mean Corp Hgb Conc 33.2 g/dL (32-36); Mean Corpuscular Volume 87.0 fL (81-99); Mean Platelet Vol. 10.0 fl (6.2-12.0); Platelet Count 174 K/mm3 (150-450); RBC Distribution Width CV 15.1 % (11.6-14.6); RBC Distribution Width SD 47.4 fl (35.1-43.9); Red Blood Count 3.22 M/mm3 (4.2-5.4); White Blood Count 6.4 K/mm3 (4.4-11.0)
[2024-10-20 05:49] VITALS: BMI 22.7
[2024-10-20 05:58] LABS: Anion Gap 8 (5-15); BUN 6 mg/dL (4-19); BUN/Creat Ratio 10.4 RATIO (10-20); Calcium,Total 8.3 mg/dL (7.6-11.0); Carbon Dioxide 23.7 mmol/L (21.0-32.0); Chloride 106 mmol/L (98-108); Estimated Creatinine Clearance 43.30 ml/min (50-250); Glucose 97 mg/dL (70-99); Magnesium 1.8 mg/dL (1.5-2.2); Potassium 3.9 mmol/L (3.3-5.1)
--- NOTE | 2024-10-20 07:48 | PCM.PN.HOSP ---
Reason for Visit Reason for Visit: Blood in stool Subjective Subjective No issue overnight. Concerned about tolerating prep. States that she is nauseated from Meds this am and refused enema Objective Data Objective Data Vital Signs: Vital Signs Temp Pulse Resp BP Pulse Ox O2 Del Method O2 Flow Rate 98.1 F 66 18 148/63 H 100 Nasal Cannula 2 10/20/24 02:30 10/20/24 02:30 10/20/24 02:30 10/20/24 02:30 10/20/24 02:30 10/20/24 07:08 10/20/24 07:08 FiO2 99 10/20/24 07:08 Oxygen Flow Rate (L/min) 2 Oxygen Delivery Method Nasal Cannula Weight: 58.3 kg Body Mass Index (BMI) 22.7 Intake & Output: Intake and Output for Last 24 Hours 10/18/24 10/19/24 10/20/24 23:59 23:59 23:59 Intake Total 750 / 750 1590 / 1590 Output Total 850 / 850 Balance 750 / 500 740 / 740 Lab / Micro Data 10/20/24 04:43 10/20/24 04:43 Labs: Laboratory Results - last 24 hr 10/20/24 04:43: WBC 6.4, RBC 3.22 L, Hgb 9.3 L, Hct 28.0 L, MCV 87.0, MCH 28.9, MCHC 33.2, RDW Std Deviation 47.4 H, RDW Coeff of Kierra 15.1 H, Plt Count 174, MPV 10.0, Sodium 137, Potassium 3.9, Chloride 106, Carbon Dioxide 23.7, Anion Gap 8, BUN 6, Creatinine 0.58 L, Estim Creat Clear Calc 43.30 L, Est GFR (MDRD) Non-Af 89, BUN/Creatinine Ratio 10.4, Glucose 97, Calcium 8.3, Phosphorus 2.9, Magnesium 1.8 Micro: Microbiology 10/16/24 21:56 Stool Stool Occult Blood (LOIS) - Final Occult Blood Positive Physical Exam Const alert, oriented x3, no apparent distress, average body habitus, healthy appearing and well nourished Constitutional Narrative: Elderly, white female, sitting up in a chair watching TV, nursing is at the bedside, appears comfortable, nontoxic, interacts appropriately General Appearance: cooperative HEENT normocephalic, head/scalp atraumatic and moist oral mucous membranes Resp normal respiratory effort, no retractions, no use of accessory muscles and clear to auscultation bilaterally Auscultation: Negative for rales, rhonchi or wheezes Cardio regular rate, regular rhythm, S1 normal heart sound, S2 normal heart sound, no rub, no gallops and no clicks; Negative for no murmurs Cardio Narrative: Patient with a 4-6 systolic murmur loudest at left lower sternal border GI normal to inspection, nondistended, normoactive bowel sounds, soft to palpation and non-tender Extremity normal to inspection, full ROM and no clubbing, cyanosis or edema Extremity Narrative: 2+ pedal pulses Neuro oriented x3, moves all extremities and no focal motor deficits Speech: speech normal Psych affect normal Psych Narrative: Talkative, eye contact is good and patient interacts appropriately Assessment & Plan Assessment/Plan (1) GI bleed: QUALIFIERS: GI bleed type/associated pathology: unspecified gastrointestinal hemorrhage type Qualified Code(s): K92.2 - Gastrointestinal hemorrhage, unspecified (2) Acute anemia: PLAN: Plan GI bleed - CT performed and shows new focal hyperdensity in the diverticulum near the hepatic flexure -Question ischemic colitis -Start prep today--> will be extended prep - EGD was unremarkable for any findings consistent with GI bleed - CLD until Tuesday - Continue to hold home aspirin - GI is following--> colonoscopy Tuesday Acute anemia - Hemoglobin has been between 12 and 13 at baseline as of recently - Down to 8.5 on presentation--> Now stable at 9-9.5 since transfusion of 4 u PRBC - Plan for colonoscopy on Tuesday - Repeat CBC in a.m. - GI is following Hypophosphatemia - resolved Hypokalemia - Resolve Generalized weakness/debility - PT and OT are following - Patient did poorly - Plan is for discharge to skilled facility once medically stable-->after Tuesday GERD/history of GI bleed -Continue home PPI - Previous EGD performed in March 2020 for found 3 bleeding angiodysplastic lesions which were treated with heater probe - patient with cardiac murmur on exam-->increased risk of angiodysplastic lesion formation History of stroke - Hold home aspirin due to the above - Restart as able Essential hypertension - Continue Amlodipine - Continue to hold Hydralazine - Look to reinitiate once blood pressure shows stability History of cardiac arrhythmia - Patient has pacemaker Memory loss - documented Alzheimer's type dementia - Continue home memantine Restless leg syndrome - Continue home Mirapex History of breast cancer - DCIS - Outpatient follow-up Depression/anxiety - Continue Lexapro DVT prophylaxis - SCDs CODE STATUS - Full code Charges/Coding Visit Charges Inpatient E&M: 28512 Subs Hosp L2
[2024-10-20 08:10] VITALS: BP 136/57; PULSE 61; RESP 16; TEMP 36.6; O2SAT 97
[2024-10-20] MEDS: Memantine Hydrochloride 10 MG Tablet PO (10:56)
[2024-10-20] MEDS: Polyethylene Glycol 3350 BOWEL PREP PO (11:03)
[2024-10-20 15:12] VITALS: BP 147/64; PULSE 67; RESP 16; TEMP 36.9; O2SAT 97
[2024-10-20 21:05] VITALS: BP 143/74; PULSE 71; RESP 18; TEMP 36.8; O2SAT 96
[2024-10-20] MEDS: MELATONIN 10 MG TABLET PO (21:18)
[2024-10-21] VITALS (8 sets, daily range): BP systolic 149–168; BP diastolic 62–81; PULSE 71–78; RESP 16; TEMP 36.6–36.8; O2SAT 95–100; BMI 22.7
[2024-10-21 05:23] LABS: Hematocrit 29.9 % (37-47); Hemoglobin 10.2 g/dL (12.0-15.0); Immature Granulocytes Count 0.030 X10^3/uL (0.0-0.0); Mean Corp Hgb Conc 34.1 g/dL (32-36); Mean Corpuscular Volume 85.9 fL (81-99); Mean Platelet Vol. 9.8 fl (6.2-12.0); NRBC Flagged by Analyzer 0 % (0-5); Platelet Count 223 K/mm3 (150-450); RBC Distribution Width CV 15.0 % (11.6-14.6); RBC Distribution Width SD 45.7 fl (35.1-43.9); Red Blood Count 3.48 M/mm3 (4.2-5.4); White Blood Count 7.2 K/mm3 (4.4-11.0)
[2024-10-21 05:42] LABS: Anion Gap 10 (5-15); BUN 6 mg/dL (4-19); BUN/Creat Ratio 9.3 RATIO (10-20); Calcium,Total 8.8 mg/dL (7.6-11.0); Carbon Dioxide 21.6 mmol/L (21.0-32.0); Chloride 103 mmol/L (98-108); Estimated Creatinine Clearance 43.30 ml/min (50-250); Glucose 87 mg/dL (70-99); Magnesium 2.0 mg/dL (1.5-2.2); Potassium 3.9 mmol/L (3.3-5.1)
--- NOTE | 2024-10-21 07:08 | PN.HOSP_ITS ---
Reason for Visit Reason for Visit: Blood in stool Subjective Subjective Patient reported she has had good stool output. Denies any significant blood in the stool at this time. No complaints at this time. Anxious to get colonoscopy over. Objective Data Objective Data Vital Signs: Vital Signs Temp Pulse Resp BP Pulse Ox O2 Del Method O2 Flow Rate 98.2 F 74 16 149/70 H 95 Room Air 2 10/21/24 02:16 10/21/24 02:16 10/21/24 02:16 10/21/24 02:16 10/21/24 02:16 10/21/24 02:16 10/20/24 07:08 FiO2 99 10/20/24 07:08 Oxygen Flow Rate (L/min) 2 Oxygen Delivery Method Room Air Weight: 58.2 kg Body Mass Index (BMI) 22.7 Intake & Output: Intake and Output for Last 24 Hours 10/19/24 10/20/24 10/21/24 23:59 23:59 23:59 Intake Total 1590 / 1590 500 / 500 Output Total 850 / 850 Balance 740 / 740 500 / 500 Lab / Micro Data 10/21/24 04:49 10/21/24 04:49 Labs: Laboratory Results - last 24 hr 10/21/24 04:49: WBC 7.2, RBC 3.48 L, Hgb 10.2 L, Hct 29.9 L, MCV 85.9, MCH 29.3, MCHC 34.1, RDW Std Deviation 45.7 H, RDW Coeff of Kierra 15.0 H, Plt Count 223, MPV 9.8, Immature Gran % (Auto) 0.400, Neut % (Auto) 70.8 H, Lymph % (Auto) 12.0 L, [place] % (Auto) 13.7 H, Eos % (Auto) 2.4, Baso % (Auto) 0.7, Absolute Neuts (auto) 5.1, Absolute Lymphs (auto) 0.86, Nucleated RBC % 0, Sodium 135, Potassium 3.9, Chloride 103, Carbon Dioxide 21.6, Anion Gap 10, BUN 6, Creatinine 0.60 L, Estim Creat Clear Calc 43.30 L, Est GFR (MDRD) Non-Af 88, BUN/Creatinine Ratio 9.3 L, Glucose 87, Calcium 8.8, Phosphorus 2.8, Magnesium 2.0 Micro: Microbiology 10/16/24 21:56 Stool Stool Occult Blood (LOIS) - Final Occult Blood Positive Physical Exam Const alert, oriented x3, no apparent distress, average body habitus, healthy appearing and well nourished Constitutional Narrative: Elderly, white female, sitting up in bed, eating breakfast, watching television, appears comfortable, nontoxic General Appearance: cooperative HEENT normocephalic, head/scalp atraumatic and moist oral mucous membranes Resp normal respiratory effort, no retractions, no use of accessory muscles and clear to auscultation bilaterally Auscultation: Negative for rales, rhonchi or wheezes Cardio regular rate, regular rhythm, S1 normal heart sound, S2 normal heart sound, no rub, no gallops and no clicks; Negative for no murmurs Cardio Narrative: Patient with a 4-6 systolic murmur loudest at left lower sternal border GI normal to inspection, nondistended, normoactive bowel sounds, soft to palpation, non-tender and non-distended Extremity no clubbing, cyanosis or edema Extremity Narrative: 2+ pedal pulses Neuro oriented x3, moves all extremities and no focal motor deficits Sensorium / Orientation: alert Speech: speech normal Psych affect normal Psych Narrative: Talkative, eye contact is good and patient interacts appropriately Assessment & Plan Assessment/Plan (1) GI bleed: QUALIFIERS: GI bleed type/associated pathology: unspecified gastrointestinal hemorrhage type Qualified Code(s): K92.2 - Gastrointestinal hemorrhage, unspecified (2) Acute anemia: PLAN: Plan GI bleed - CT performed on admission and showed new focal hyperdensity in the diverticulum near the hepatic flexure -Question ischemic colitis -Start prep 10/20--> extended prep being used and will be completed today - EGD was unremarkable for any findings consistent with GI bleed - CLD until 12tuesday - Continue to hold home aspirin - GI is following--> colonoscopy Tuesday Acute anemia - Hemoglobin has been between 12 and 13 at baseline as of recently - Down to 8.5 on presentation--> Now stable at 10 since transfusion of 4 u PRBC - Plan for colonoscopy on Tuesday - Repeat CBC in a.m. - GI is following Generalized weakness/debility - PT and OT are following - Patient did poorly - Plan is for discharge to skilled facility once medically stable-->after Tuesday GERD/history of GI bleed - Continue home PPI - Previous EGD performed in March 2020 for found 3 bleeding angiodysplastic lesions which were treated with heater probe - patient with cardiac murmur on exam-->increased risk of angiodysplastic lesion formation History of stroke - Hold home aspirin due to the above - Restart as able Essential hypertension - Continue Amlodipine - Restart home hydralazine - Continue to hold valsartan/HCTZ and reevaluate again tomorrow for ability to initiate -Slowly restarting medications as her blood pressure was low on admission - Look to reinitiate once blood pressure shows stability History of cardiac arrhythmia - Patient has pacemaker Memory loss - documented Alzheimer's type dementia - Continue home memantine Restless leg syndrome - Continue home Mirapex 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
[2024-10-21] MEDS: Memantine Hydrochloride 10 MG Tablet PO (09:06)
[2024-10-21] MEDS: MELATONIN 10 MG TABLET PO (22:38)
[2024-10-22] VITALS (14 sets, daily range): BP systolic 103–145; BP diastolic 48–87; PULSE 66–84; RESP 14–18; TEMP 36.1–36.6; O2SAT 94–100; BMI 23.0
[2024-10-22 05:03] LABS: Hematocrit 32.3 % (37-47); Hemoglobin 11.0 g/dL (12.0-15.0); Mean Corp Hgb Conc 34.1 g/dL (32-36); Mean Corpuscular Volume 86.6 fL (81-99); Mean Platelet Vol. 9.8 fl (6.2-12.0); Platelet Count 280 K/mm3 (150-450); RBC Distribution Width CV 15.1 % (11.6-14.6); RBC Distribution Width SD 46.2 fl (35.1-43.9); Red Blood Count 3.73 M/mm3 (4.2-5.4); White Blood Count 7.3 K/mm3 (4.4-11.0)
[2024-10-22 05:30] LABS: Anion Gap 11 (5-15); BUN 6 mg/dL (4-19); BUN/Creat Ratio 8.1 RATIO (10-20); Calcium,Total 9.2 mg/dL (7.6-11.0); Carbon Dioxide 22.2 mmol/L (21.0-32.0); Chloride 100 mmol/L (98-108); Estimated Creatinine Clearance 43.30 ml/min (50-250); Glucose 95 mg/dL (70-99); Potassium 4.1 mmol/L (3.3-5.1)
--- NOTE | 2024-10-22 08:05 | PN.HOSP_ITS ---
Reason for Visit Reason for Visit: Diagnoses Acute posthemorrhagic anemia (10/17/24) Anemia, unspecified (10/17/24) Gastro-esophageal reflux disease without esophagitis (10/17/24) Diverticulosis of intestine, part unspecified, without perforation or abscess without bleeding (10/17/24) Gastrointestinal hemorrhage, unspecified (10/17/24) Adverse effect of unspecified drugs, medicaments and biological substances, initial encounter (10/17/24) Personal history of other diseases of the digestive system (10/17/24) Subjective Subjective Feeling weak. Anxious about restarting medication for RLS. Objective Data Objective Data Vital Signs: Vital Signs Temp Pulse Resp BP Pulse Ox O2 Del Method O2 Flow Rate 36.6 C 66 16 145/58 H 94 Room Air 2 10/22/24 02:07 10/22/24 02:07 10/22/24 02:07 10/22/24 02:07 10/22/24 08:01 10/22/24 08:01 10/20/24 07:08 FiO2 99 10/20/24 07:08 Oxygen Flow Rate (L/min) 2 Oxygen Delivery Method Room Air Weight: 58.9 kg Body Mass Index (BMI) 23.0 Intake & Output: Intake and Output for Last 24 Hours 10/20/24 10/21/24 10/22/24 23:59 23:59 23:59 Intake Total 500 / 500 1000 / 1000 Balance 500 / 500 1000 / 1000 Lab / Micro Data 10/22/24 04:24 10/22/24 04:24 Labs: Laboratory Results - last 24 hr 10/22/24 04:24: WBC 7.3, RBC 3.73 L, Hgb 11.0 L, Hct 32.3 L, MCV 86.6, MCH 29.5, MCHC 34.1, RDW Std Deviation 46.2 H, RDW Coeff of Kierra 15.1 H, Plt Count 280, MPV 9.8, Sodium 133, Potassium 4.1, Chloride 100, Carbon Dioxide 22.2, Anion Gap 11, BUN 6, Creatinine 0.77, Estim Creat Clear Calc 43.30 L, Est GFR (MDRD) Non-Af 76, BUN/Creatinine Ratio 8.1 L, Glucose 95, Calcium 9.2 Micro: Microbiology 10/16/24 21:56 Stool Stool Occult Blood (LOIS) - Final Occult Blood Positive Physical Exam Const alert and no apparent distress HEENT head/scalp atraumatic and moist oral mucous membranes Resp normal respiratory effort, no retractions, no use of accessory muscles and clear to auscultation bilaterally Cardio regular rate, regular rhythm, S1 normal heart sound and S2 normal heart sound GI normal to inspection, nondistended, normoactive bowel sounds, soft to palpation, non-tender and non-distended Neuro Sensorium / Orientation: awake and alert Assessment & Plan Assessment/Plan (1) Acute anemia: PLAN: ABLA POA. Hg 6.8 on admssion. now up to 11. s/p 3 units PRBCs 2/2 GIB. Monitor. (2) GI bleed: QUALIFIERS: GI bleed type/associated pathology: unspecified gastrointestinal hemorrhage type Qualified Code(s): K92.2 - Gastrointestinal hemorrhage, unspecified PLAN: source not identified on EGD. Colonscopy pending. PLAN: Plan Chronic conditions: * HTN: losartan, HCTZ, hydralazine, amlodipine * Depression: escitalopram VTE prophylaxis: SCDs Charges/Coding Visit Charges Inpatient E&M: 01326 Subs Hosp L2
--- NOTE | 2024-10-22 10:15 | CASEMGMT ---
Discharge Planning Updates sent to [facility] with request to submit for precert. Mela Souza DC Planning Asst.
--- NOTE | 2024-10-22 12:06 | CASEMGMT ---
Addendum entered by Yenni Adame 10/22/24 16:02: Received message from [facility] that pt insurance has an intent to deny with the offering of a peer to peer. Hospitalist to see how pt does tomorrow and make determination if peer to peer will be completed. ANNIE GAUTHIER into pt room, pt aware of this information. Pt called her dtr and ANNIE GAUTHIER also explained to dtr. Pt and dtr deny any further questions. Pt states she will not private pay should she be denied but would be open to [facility]. ANNIE GAUTHIER to follow. Original Note: Received confirmation from [facility] that they have accepted pt. They will start precert this date. ANNIE GAUTHIER into pt room, pt made aware of this information. Pt asks for ANNIE GAUTHIER to call her dtr to make aware. ANNIE GAUTHIER called Amina, she is aware of the above information. Pt to have colonoscopy today.
--- NOTE | 2024-10-22 12:41 | PCM.PN.BLA ---
Progress Note Patient is for colonoscopy today. She took the prep without any problems and said she is having clear stools. Physical Exam Const alert, oriented x3, no apparent distress and healthy appearing General Appearance: cooperative GI normal to inspection, nondistended, normoactive bowel sounds, soft to palpation, non-tender and non-distended Percussion: normal to percussion Rectal Exam: deferred Assessment & Plan Assessment/Plan (1) GI bleed: QUALIFIERS: GI bleed type/associated pathology: unspecified gastrointestinal hemorrhage type Qualified Code(s): K92.2 - Gastrointestinal hemorrhage, unspecified (2) Acute anemia: PLAN: Plan GI bleed - CT performed on admission and showed new focal hyperdensity in the diverticulum near the hepatic flexure -Question ischemic colitis -Start prep 10/20--> extended prep being used and will be completed today - EGD was unremarkable for any findings consistent with GI bleed - CLD until 12am Tuesday - Continue to hold home aspirin - Patient will undergo colonoscopy. She was explained alternatives, risk and benefits include understanding bleeding, infection, subs, perforation, need for meds or to . She have an ASA of 3. Visit Charges Inpatient E&M: 73515 Subs Hosp L3
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
--- NOTE | 2024-10-22 13:45 | COLBX_PTH ---
PATIENT: XAVIER RAHMAN LOC: MS3 U#:[id number] AGE/SX: 84/F [place]OM[place] [facility] [place]17/[address]: Dr. Vikram Tillman DO : 1940 BED: 1 DIS: 10/24/2024 SPEC #: [id number] RECD: 10/23/24 09:07 STATUS: JAYLENE REQ #: [id number] XOCHILT: 10/22/24 13:[address]: Brad Winslow DEPT: SURGICAL PATHOLOGY RECD BY: Lucina Foley ENTERED: 10/23/24 10:45 SP TYPE: COLON BX OTHR DR: DO Dr. Vikram Christianson DO Dr. Eric Smith, MD Dr. Kathryn Lee, DO Tissues: A - SPLENIC FLEXURE Procedures: Surgery Specimen Level IV HEADER OPERATION: Colonoscopy with polypectomy PRE-OP DIAGNOSIS: GI blee, acute anemia TISSUE SUBMITTED: A. Splenic flexure polyp MICROSCOPIC DIAGNOSIS A. Colon, splenic flexure, polyp, biopsy: - Tubular adenoma. MICROSCOPIC DESCRIPTION Slides are reviewed. GROSS DESCRIPTION A. Received is one container labeled with the patient name and designated splenic flexure polyp. The specimen consists of two irregular fragments of light rodriguez soft tissue that measure 0.2 and 0.3 cm. The specimen is totally submitted in one cassette. SHAR/sriram 10/23/2024 CPT: 21407
--- NOTE | 2024-10-22 14:52 | PCM.POST.ANE ---
Anesthesia: Postop Eval I Current Vital Signs Temperature: 98 F Pulse Rate: 77 Blood Pressure: 122/54 Respiratory Rate: 16 Pulse Ox: 100 Oxygen Delivery Method: Room Air Assessment Airway patent: Yes Spontaneous unlabored respirations: Yes Mental status: Awake and Calm nausea: No Vomiting: No Anesthesia Complication: No Fluid Hydration Crystalloid volume administer (ml): 400 Total IV fluid infused: 400 Progress Note Anesthesia document: Postop Eval 1 completed: Yes
--- NOTE | 2024-10-22 15:03 | OP.COLON_ITS ---
Patient Name: Radha Ramirez Procedure Date: 10/22/2024 2:08 PM Date of : 1940 Age: 84 Procedure: Colonoscopy Indications: Hematochezia Providers: Brad Winslow DO Medicines: Monitored Anesthesia Care Patient Profile: This is an 84 year old female. Refer to note in patient chart for documentation of history and physical. Last Colonoscopy: more than 10 years ago. Complications: No immediate complications. Procedure: Pre-Anesthesia Assessment: - Prior to the procedure, a History and Physical was performed, and patient medications and allergies were reviewed. The patient is competent. The risks and benefits of the procedure and the sedation options and risks were discussed with the patient. All questions were answered and informed consent was obtained. Patient identification and proposed procedure were verified by the physician in the pre-procedure area. Mental Status Examination: alert and oriented. Airway Examination: normal oropharyngeal airway and neck mobility. Respiratory Examination: clear to auscultation. CV Examination: normal. Prophylactic Antibiotics: The patient does not require prophylactic antibiotics. Prior Anticoagulants: The patient has taken no anticoagulant or antiplatelet agents except for NSAID medication. ASA Grade Assessment: II - A patient with mild systemic disease. After reviewing the risks and benefits, the patient was deemed in satisfactory condition to undergo the procedure. The anesthesia plan was to use monitored anesthesia care (MAC). Immediately prior to administration of medications, the patient was re-assessed for adequacy to receive sedatives. The heart rate, respiratory rate, oxygen saturations, blood pressure, adequacy of pulmonary ventilation, and response to care were monitored throughout the procedure. The physical status of the patient was re-assessed after the procedure. After I obtained informed consent, the scope was passed under direct vision. Throughout the procedure, the patient's blood pressure, pulse, and oxygen saturations were monitored continuously. The Colonoscope was introduced through the anus and advanced to the cecum, identified by appendiceal orifice and ileocecal valve. The colonoscopy was performed without difficulty. The patient tolerated the procedure well. The quality of the bowel preparation was adequate. The ileocecal valve, appendiceal orifice, and rectum were photographed. Scope In: 2:28:06 PM Scope Withdrawal Time 0 hours 9 minutes 21 seconds Scope Out: 2:43:24 PM Total Procedure Duration Time 0 hours 15 minutes 18 seconds Findings: The perianal and digital rectal examinations were normal. An 8 mm polyp was found in the splenic flexure. The polyp was sessile. The polyp was removed with a cold biopsy forceps. Resection and retrieval were complete. Verification of patient identification for the specimen was done. Estimated blood loss was minimal. Scattered small and large-mouthed diverticula were found in the entire colon. Moderate rectal prolapse was present. Impression: - One 8 mm polyp at the splenic flexure, removed with a cold biopsy forceps. Resected and retrieved. - Diverticulosis in the entire examined colon. - Rectal prolapse. Recommendation: - Return patient [facility]. - Resume regular diet. - Continue present medications. - Await pathology results. - No repeat colonoscopy due to age. Procedure Code(s): --- Professional --- 43550, Colonoscopy, flexible; with biopsy, single or multiple CPT copyright 2021 [employer]. All rights reserved. The codes documented in this report are preliminary and upon dehydrogenation supervisor review may be revised to meet current compliance requirements. Brad Winslow DO 10/22/2024 3:03:28 PM This report has been signed electronically. Number of Addenda: 0 Note Initiated On: 10/22/2024 2:08 PM
--- NOTE | 2024-10-22 15:03 | OP.CCLET_ITS ---
10/22/2024 Vikram Segura [address] [place] [address] Re : Colonoscopy procedure for Radha Ramirez Dear Dr. Segura This procedure was performed on Tuesday, October 22, 2024. My impressions and recommendations are as follows: Impressions : - One 8 mm polyp at the splenic flexure, removed with a cold biopsy forceps. Resected and retrieved. - Diverticulosis in the entire examined colon. - Rectal prolapse. Recommendations : - Return [facility] to [facility] care. - Resume regular diet. - Continue present medications. - Await pathology results. - No repeat colonoscopy due to age. My findings are described in the full procedure note, which is enclosed. If I can be of further assistance, please feel free to contact me at . Sincerely, Brad Winslow, 10/22/2024 3:03:28 PM This report has been signed electronically.
--- NOTE | 2024-10-22 15:12 | PCM.POSTANE2 ---
Anesthesia Postop Eval I Sum Postop Eval Completion status Anesthesia document: Postop Eval 1 completed: Yes Anesthesia Postop Eval I Summary Anesthesia Postop Eval I Summary: Anesthesia Postop Eval I: Assessment Summary Airway patent Yes 10/22/24 14:52 [email or web address] Spontaneous unlabored Yes 10/22/24 14:52 [email or web address] respirations Mental status Awake,Calm 10/22/24 14:52 [email or web address] nausea No 10/22/24 14:52 [email or web address] Vomiting No 10/22/24 14:52 [email or web address] Anesthesia Postop Eval I: Fluid Summary Crystalloid volume administer 400 10/22/24 14:52 [email or web address] (ml) Colloids volume administered ( ml) Blood Product volume administered (ml) Total IV fluid infused 400 10/22/24 14:52 [email or web address] Anesthesia Postop Eval I: Summary Notes Anesthesia Complication No 10/22/24 14:52 [email or web address] Anesthesia Complication Comment: Post-operative progress note Anesthesia: Postop Eval II Evaluation Mental status: Awake Pain Level: 0 nausea: No Vomiting: No
--- NOTE | 2024-10-22 15:12 | ANES.CONFIRM ---
Anesthesia: Confirm Documents Multiple Procedures on Account (2) Confirmed Documents: Yes
[2024-10-22] MEDS: MELATONIN 10 MG TABLET PO (21:07)
[2024-10-23] VITALS (7 sets, daily range): BP systolic 125–141; BP diastolic 47–56; PULSE 61–74; RESP 16–18; TEMP 36.4–36.8; O2SAT 92–95; BMI 23.0
[2024-10-23 05:25] LABS: Hematocrit 33.3 % (37-47); Hemoglobin 11.3 g/dL (12.0-15.0); Immature Granulocytes Count 0.020 X10^3/uL (0.0-0.0); Mean Corp Hgb Conc 33.9 g/dL (32-36); Mean Corpuscular Volume 87.9 fL (81-99); Mean Platelet Vol. 9.5 fl (6.2-12.0); NRBC Flagged by Analyzer 0 % (0-5); Platelet Count 297 K/mm3 (150-450); RBC Distribution Width CV 15.2 % (11.6-14.6); RBC Distribution Width SD 47.8 fl (35.1-43.9); Red Blood Count 3.79 M/mm3 (4.2-5.4); White Blood Count 6.6 K/mm3 (4.4-11.0)
[2024-10-23 06:11] LABS: Anion Gap 11 (5-15); BUN 11 mg/dL (4-19); BUN/Creat Ratio 14.5 RATIO (10-20); Calcium,Total 9.1 mg/dL (7.6-11.0); Carbon Dioxide 21.1 mmol/L (21.0-32.0); Chloride 99 mmol/L (98-108); Estimated Creatinine Clearance 43.30 ml/min (50-250); Glucose 100 mg/dL (70-99); Potassium 4.0 mmol/L (3.3-5.1)
--- NOTE | 2024-10-23 07:21 | PCM.PN.HOSP ---
Reason for Visit Reason for Visit: Diagnoses Acute posthemorrhagic anemia (10/17/24) Anemia, unspecified (10/17/24) Gastro-esophageal reflux disease without esophagitis (10/17/24) Diverticulosis of intestine, part unspecified, without perforation or abscess without bleeding (10/17/24) Gastrointestinal hemorrhage, unspecified (10/17/24) Adverse effect of unspecified drugs, medicaments and biological substances, initial encounter (10/17/24) Personal history of other diseases of the digestive system (10/17/24) Subjective Subjective Feels well. Objective Data Objective Data Vital Signs: Vital Signs Temp Pulse Resp BP Pulse Ox O2 Del Method O2 Flow Rate 36.6 C 74 16 141/55 H 94 Room Air 2 10/23/24 06:02 10/23/24 06:02 10/23/24 06:02 10/23/24 06:02 10/23/24 06:02 10/23/24 06:02 10/22/24 13:42 FiO2 99 10/22/24 13:42 Oxygen Flow Rate (L/min) 2 Oxygen Delivery Method Room Air Weight: 58.9 kg Body Mass Index (BMI) 23.0 Intake & Output: Intake and Output for Last 24 Hours 10/21/24 10/22/24 10/23/24 23:59 23:59 23:59 Intake Total 1000 / 1000 350 / 350 350 / 350 Output Total Balance 1000 / 1000 349 / 349 350 / 350 Lab / Micro Data 10/23/24 05:03 10/23/24 05:03 Labs: Laboratory Results - last 24 hr 10/23/24 05:03: WBC 6.6, RBC 3.79 L, Hgb 11.3 L, Hct 33.3 L, MCV 87.9, MCH 29.8, MCHC 33.9, RDW Std Deviation 47.8 H, RDW Coeff of Kierra 15.2 H, Plt Count 297, MPV 9.5, Immature Gran % (Auto) 0.300, Neut % (Auto) 64.9, Lymph % (Auto) 14.9 L, Kingfisher % (Auto) 15.7 H, Eos % (Auto) 3.7, Baso % (Auto) 0.5, Absolute Neuts (auto) 4.3, Absolute Lymphs (auto) 0.98, Nucleated RBC % 0, Sodium 131 L, Potassium 4.0, Chloride 99, Carbon Dioxide 21.1, Anion Gap 11, BUN 11, Creatinine 0.73, Estim Creat Clear Calc 43.30 L, Est GFR (MDRD) Non-Af 81, BUN/Creatinine Ratio 14.5, Glucose 100 H, Calcium 9.1 Micro: Microbiology 10/16/24 21:56 Stool Stool Occult Blood (LOIS) - Final Occult Blood Positive Physical Exam Const alert and no apparent distress Constitutional Narrative: up eating breakfast. HEENT head/scalp atraumatic and moist oral mucous membranes Resp normal respiratory effort, no retractions, no use of accessory muscles and clear to auscultation bilaterally Cardio regular rate, regular rhythm, S1 normal heart sound and S2 normal heart sound GI normal to inspection, nondistended, normoactive bowel sounds, soft to palpation, non-tender and non-distended Extremity normal to inspection, full ROM and no clubbing, cyanosis or edema Assessment & Plan Assessment/Plan (1) Acute anemia: PLAN: ABLA POA. Hg 6.8 on admssion. now up to 11.3 s/p 3 units PRBCs 2/2 GIB. Monitor. (2) GI bleed: QUALIFIERS: GI bleed type/associated pathology: unspecified gastrointestinal hemorrhage type Qualified Code(s): K92.2 - Gastrointestinal hemorrhage, unspecified PLAN: no clear source on EGD and colonoscopy. Colonoscopy 10/22: 8mm polyp at splenic flexure, removed with cold biopsy forceps. Diverticulosis in the entire examined colon. Rectal prolapse. PLAN: Plan Chronic conditions: HTN: losartan, HCTZ, hydralazine, amlodipine Depression: escitalopram VTE prophylaxis: SCDs Charges/Coding Visit Charges Inpatient E&M: 84470 Subs Hosp L2
[2024-10-23] MEDS: Memantine Hydrochloride 10 MG Tablet PO (08:54)
--- NOTE | 2024-10-23 15:59 | CASEMGMT ---
Addendum entered by Yenni Adame 10/23/24 17:44: 1625- ANNIE GAUTHIER into pt room, pt lying in bed in no distress. Discussed with pt how she did with OT today and that it is felt pt can return home with assistance. Provided pt with a HHC choice list to review. Pt asks if it costs. Pt aware that after her choice is selected, ANNIE GAUTHIER can inquire on a copay and she can decide to proceed or not. Pt declines to make a decision on HH. Pt expresses concern for returning home. Pt states she has a friend who could assist her but she doesn't want to ask her. Pt states she doesn't have anyone to assist with meals. Discussed with pt meal services, she states she has had [facility] in the past and did not like them. Discussed alternate options. Pt states she needs someone daily to assist her. Discussed HHC and what that entails. Also discussed private duty options. Pt states she does not have funds for this. Asked pt if ANNIE GAUTHIER could call her dtr. Pt states she does not want this as pt dtr is upset with her on how she spoke to her. Made pt aware that her dtr has been involved up to this point. She states she just attended a and prefers not to discuss with her. After much discussion, pt then decided to call her dtr when ANNIE GAUTHIER in room, pt dtr did not answer. ANNIE GAUTHIER called pt dtr outside of room, she was upset that pt is dc'ing home. She states she feels she was not communicated with regarding this. She states she will be in to see pt. Updated hospitalist. Discussed situation with REINIER Toledo, charge nurse and director of floor. Plan for pt to stay overnight and regroup with a safe dc plan in the morning. ANNIE GAUTHIER into pt room, pt dtr present. Discussed with pt and dtr that pt will stay tonight and regroup in the morning. Pt dtr requests meeting be at 9am. HOWIE VALENCIA CM will meet with pt and dtr. Discussed options for private duty, HHC, see if pt is eligible for [facility] for SNF stay, etc. Pt dtr states pt does not qualify for [facility]. She states pt does have funds where she can pay a copay if there is one for HHC. Plan for discussion in the morning to explore pt options. Original Note: Discussed OT session this date with hospitalist, P2P declined. Updated [facility] via [employer].
--- NOTE | 2024-10-23 16:22 | CASEMGMT ---
Discharge Planning A list of HH providers including quality and resource use data and consistent with the patient's preferred geographic region, medical needs, and insurance network was created in [facility] [facility].? This list was provided to the RN ABRAHAN. Mela Souza, Discharge Planning Asst.
--- NOTE | 2024-10-23 16:23 | DS.PCM_ITS ---
Providers Date of Admission: 10/17/24 Primary Care Physician: Dr. Vikram Segura MD Consultations 10/17/24 00:58 Consult: Gastroenterology Routine Consulting Provider: [facility] Reason for Consult: GI bleed with ABLA. EMERGENT Consult: No MD Notified: Yes Date Notified: 10/17/24 Time Notified: 00:06 Method of Notification: ED Physician Initiated Reason For Visit: GI BLEED WITH ABLA Diagnosis Discharge Diagnosis (1) Acute anemia: Status: Acute Code(s): D64.9 - Anemia, unspecified Plan: ABLA POA. Hg 6.8 on admssion. now up to 11.3 s/p 3 units PRBCs 2/2 GIB. Monitor. (2) GI bleed: Status: Acute Code(s): K92.2 - Gastrointestinal hemorrhage, unspecified Qualifiers: GI bleed type/associated pathology: unspecified gastrointestinal hemorrhage type Qualified Code(s): K92.2 - Gastrointestinal hemorrhage, unspecified Plan: no clear source on EGD and colonoscopy. Colonoscopy 10/22: 8mm polyp at splenic flexure, removed with cold biopsy forceps. Diverticulosis in the entire examined colon. Rectal prolapse. Suspect that the bleeding was likely due to diverticulosis though no obvious bleeding was noted on the colonoscopy. Plan Chronic conditions: * HTN: losartan, HCTZ, hydralazine, amlodipine * Depression: escitalopram VTE prophylaxis: SCDs Medications at Discharge Home Medications pramipexole 1.5 mg tablet 1.5 mg PO QHS restless legs 10/16/22 valsartan 320 mg-hydrochlorothiazide 25 mg tablet 1 tab PO DAILY 10/16/22 memantine 10 mg tablet 10 mg PO DAILY 04/28/23 amlodipine 5 mg tablet 5 mg PO DAILY 06/11/23 pantoprazole 40 mg tablet,delayed release 40 mg PO BID 30 days #60 tabs 03/25/24 diphenhydramine 25 mg-acetaminophen 500 mg tablet (Acetaminophen PM) 1 tab PO QHS PRN sleep 07/15/24 escitalopram oxalate 5 mg tablet 5 mg PO 1700 depression 07/15/24 aspirin 81 mg capsule 81 mg PO DAILY 30 days #30 caps 07/17/24 Held on 10/23/24. Instructions: Resume on 10/27/24. docusate sodium 100 mg capsule 100 mg PO QHS constipation 10/16/24 hydralazine 10 mg tablet 10 mg PO BID PRN PRN blood pressure 10/16/24 Hospital Course Operations None Procedures Colonoscopy and EGD Weight / BMI Weight Weight: 58.9 kg Body Mass Index (BMI) 23.0 ABG / Lab / Microbiology Data 10/23/24 05:03 10/23/24 05:03 Laboratory: Laboratory Results - last 24 hr 10/23/24 05:03: WBC 6.6, RBC 3.79 L, Hgb 11.3 L, Hct 33.3 L, MCV 87.9, MCH 29.8, MCHC 33.9, RDW Std Deviation 47.8 H, RDW Coeff of Kierra 15.2 H, Plt Count 297, MPV 9.5, Immature Gran % (Auto) 0.300, Neut % (Auto) 64.9, Lymph % (Auto) 14.9 L, M kelle % (Auto) 15.7 H, Eos % (Auto) 3.7, Baso % (Auto) 0.5, Absolute Neuts (auto) 4.3, Absolute Lymphs (auto) 0.98, Nucleated RBC % 0, Sodium 131 L, Potassium 4.0, Chloride 99, Carbon Dioxide 21.1, Anion Gap 11, BUN 11, Creatinine 0.73, E stim Creat Clear Calc 43.30 L, Est GFR (MDRD) Non-Af 81, BUN/Creatinine Ratio 14.5, Glucose 100 H, Calcium 9.1 Microbiology: Microbiology 10/16/24 21:56 Stool Stool Occult Blood (LOIS) - Final Occult Blood Positive D/C Instructions Discharge Diet: No restrictions DC O2, CPAP, BIPAP Needs Home O2 Discharge instructions: No Meaningful Use Info Meaningful Use Meaningful Use Diagnoses (Choose all that apply): None applicable Ischemic Stroke Statin Dosing Therapy Reference: STATIN DOSE THERAPY REFERENCE: * Patients > 75 years receive moderate or high dose statin therapy. * Patients 75 years or YOUNGER should receive HIGH intensity statin dose unless contraindicated. You will be required to document reason for non-treatment if statin daily dose does not meet guidelines. HIGH DOSE STATIN THERAPY DAILY Atorvastatin > than or = to 40 mg Rosuvastatin > than or = to 20 mg Amlodipine + Atorvastatin > than or = to 2.5/40 mg Ezetimibe + Simvastatin 10/80 mg Simvastatin 80mg Discharge Plan Admission Admit Date/Time: 10/17/24 00:05 Primary Reason for Your Visit: GI bleed Attending Provider: Vikram Tillman Primary Care Provider: Vikram Segura Consulting Providers: Lamin Ritter; Ramonita Boothe Instructions Additional Instructions / Restrictions: You had a GI bleed with the source was not identified. Though I suspect it is probably diverticulosis. Your blood count has remained stable after transfusions. Discharge Orders/Prescriptions Prescriptions: Continued pramipexole 1.5 mg tablet 1.5 mg PO QHS Patient Comments: TAKE 1 TABLET 2 TO 3 HOURS BEFORE BEDTIME FOR RESTLESS LEGS valsartan-hydrochlorothiazide 320-25 mg tablet 1 tab PO DAILY memantine 10 mg tablet 10 mg PO DAILY amlodipine 5 mg tablet 5 mg PO DAILY escitalopram oxalate 5 mg tablet 5 mg PO 1700 diphenhydramine-acetaminophen [Acetaminophen PM] 25-500 mg tablet 1 tab PO QHS PRN (Reason: sleep) pantoprazole 40 mg Tablet,Delayed Release (Dr/Ec) 40 mg PO BID 30 Days Qty: 60 2RF hydralazine 10 mg tablet 10 mg PO BID PRN PRN (Reason: blood pressure) docusate sodium 100 mg capsule 100 mg PO QHS Held aspirin 81 mg capsule 81 mg PO DAILY 30 Days Qty: 30 0RF Hold Instructions: Resume on 10/27/24. Referrals / Follow Up: Vikram Segura MD [Primary Care Provider] - Within 2 Weeks Disposition Disposition (needs filled in before D/C Order can be placed): Home, Self Care Charges/Coding Visit Charges Inpatient E&M: 43513 Disch Hosp
--- NOTE | 2024-10-23 17:46 | PN_ITS ---
Progress Note Patient underwent colonoscopy yesterday for recurrent GI bleeding. Her colonoscopy displayed diffuse diverticular disease and adenomatous polyp that was removed. I talked with her daughter and told her that she likely had a diverticular bleed. We talked about the ways in order to prevent recurrent bleeding from diverticular source but we cannot totally eliminate that. Physical Exam Const alert, oriented x3, no apparent distress and healthy appearing General Appearance: cooperative GI normal to inspection, nondistended, normoactive bowel sounds, soft to palpation, non-tender and non-distended Percussion: normal to percussion Rectal Exam: deferred Assessment & Plan Assessment/Plan (1) GI bleed: QUALIFIERS: GI bleed type/associated pathology: unspecified gastrointestinal hemorrhage type Qualified Code(s): K92.2 - Gastrointestinal hemorrhage, unspecified (2) Acute anemia: PLAN: Plan GI bleed - CT performed on admission and showed new focal hyperdensity in the diverticulum near the hepatic flexure -Question ischemic colitis -Start prep 10/20--> extended prep being used and will be completed today - EGD was unremarkable for any findings consistent with GI bleed - CLD until 12tuesday - Continue to hold home aspirin - Patient will undergo colonoscopy. She was explained alternatives, risk and benefits include understanding bleeding, infection, subs, perforation, need for meds or to . She have an ASA of 3. 10/23/2024- Findings: The perianal and digital rectal examinations were normal. An 8 mm polyp was found in the splenic flexure. The polyp was sessile. The polyp was removed with a cold biopsy forceps. Resection and retrieval were complete. Verification of patient identification for the specimen was done. Estimated blood loss was minimal. Scattered small and large-mouthed diverticula were found in the entire colon. Moderate rectal prolapse was present. Impression: - One 8 mm polyp at the splenic flexure, removed with a cold biopsy forceps. Resected and retrieved. - Diverticulosis in the entire examined colon. - Rectal prolapse. Patient is okay to be discharged from GI standpoint. She may need a capsule endoscopy in the future. Visit Charges Inpatient E&M: 40997 [facility] Hosp L3
[2024-10-23] MEDS: MELATONIN 10 MG TABLET PO (21:24)
[2024-10-24 05:21] VITALS: BMI 22.6
[2024-10-24 05:22] VITALS: BP 142/52; PULSE 66; RESP 16; TEMP 37.1; O2SAT 94
--- NOTE | 2024-10-24 07:13 | PN.HOSP_ITS ---
Reason for Visit Reason for Visit: Diagnoses Acute posthemorrhagic anemia (10/17/24) Anemia, unspecified (10/17/24) Gastro-esophageal reflux disease without esophagitis (10/17/24) Diverticulosis of intestine, part unspecified, without perforation or abscess without bleeding (10/17/24) Gastrointestinal hemorrhage, unspecified (10/17/24) Adverse effect of unspecified drugs, medicaments and biological substances, initial encounter (10/17/24) Personal history of other diseases of the digestive system (10/17/24) Subjective Subjective Feeling well. Objective Data Objective Data Vital Signs: Vital Signs Temp Pulse Resp BP Pulse Ox O2 Del Method O2 Flow Rate 37.1 C 66 16 142/52 H 94 Room Air 2 10/24/24 05:22 10/24/24 05:22 10/24/24 05:22 10/24/24 05:22 10/24/24 05:22 10/24/24 05:22 10/22/24 13:42 FiO2 99 10/22/24 13:42 Oxygen Flow Rate (L/min) 2 Oxygen Delivery Method Room Air Weight: 58.1 kg Body Mass Index (BMI) 22.6 Intake & Output: Intake and Output for Last 24 Hours 10/22/24 10/23/24 10/24/24 23:59 23:59 23:59 Intake Total 350 / 350 550 / 550 300 / 300 Output Total / Balance 349 / 349 550 / 550 300 / 300 Lab / Micro Data 10/23/24 05:03 10/23/24 05:03 Micro: Microbiology 10/16/24 21:56 Stool Stool Occult Blood (LOIS) - Final Occult Blood Positive Physical Exam Const alert and no apparent distress Constitutional Narrative: Up in chair HEENT head/scalp atraumatic and moist oral mucous membranes Resp normal respiratory effort and no retractions Assessment & Plan Assessment/Plan (1) Acute anemia: PLAN: ABLA POA. Hg 6.8 on admssion. now up to 11.3 s/p 3 units PRBCs 2/2 GIB. Monitor. (2) GI bleed: QUALIFIERS: GI bleed type/associated pathology: unspecified gastrointestinal hemorrhage type Qualified Code(s): K92.2 - Gastrointestinal hemorrhage, unspecified PLAN: no clear source on EGD and colonoscopy. Colonoscopy 10/22: 8mm polyp at splenic flexure, removed with cold biopsy forceps. Diverticulosis in the entire examined colon. Rectal prolapse. Suspect that the bleeding was likely due to diverticulosis though no obvious bleeding was noted on the colonoscopy. Follow-up GI as outpatient for evaluation of capsule endoscopy. (3) Debility: PLAN: Feeling too unsafe to go home. CM/SW assisting on disposition PLAN: Plan Chronic conditions: * HTN: losartan, HCTZ, hydralazine, amlodipine * Depression: escitalopram VTE prophylaxis: SCDs Avoidable day. Medically stable for discharge 10/23. Will discharge home with home health care. Case management met with patient and daughter. Charges/Coding Visit Charges Inpatient E&M: 46658 Disch Hosp
[2024-10-24] MEDS: Memantine Hydrochloride 10 MG Tablet PO (08:30)
[2024-10-24 09:00] VITALS: BP 135/62; PULSE 61; RESP 18; TEMP 36.7; O2SAT 97
--- NOTE | 2024-10-24 09:35 | CASEMGMT ---
Addendum entered by Yenni Adame 10/24/24 11:32: Spoke with [employer] regarding therapy session. ANNIE GAUTHIER into pt room, pt dtr present, pt and dtr aware that [facility] has accepted and will be in touch to set up a time to come out to the home. They are aware that HH will be out on Tuesday. Pt and dtr deny any need for further DME at home, but they disagree on which DME pt will be using at home. Pt and dtr deny any further needs. Addendum entered by Yenni Adame 10/24/24 10:39: Received notification that pt will be seen tomorrow by [facility] now instead. Updated pt. Addendum entered by Yenni Adame 10/24/24 10:25: ANNIE GAUTHIER into pt room, pt aware [facility] has accepted and will start tomorrow. She is aware that she will be notified at approx 4-4:30pm today to discuss time of visit. Pt verbalizes understanding. Pt ready to work with PT. Addendum entered by Yenni Adame 10/24/24 10:21: Received tc back from [facility]. They are able to accept pt and plan for SOC tomorrow. Original Note: RN ABRAHAN, MEETING SPECIALIST, Chief Librarian Music Department, pt and dtr met to discuss dc plan. Discussed resources available to pt. Discussed HH purpose and role in supportive care at home. Discussed disciplines that may be beneficial in pt care. Pt and dtr agreeable to [facility]. Pt reviewed list and chose [facility]. Discussed options for private duty, home delivered meals. Pt provided with private duty agency list and declined meal delivery list. TC to [facility], referral made for SN, PT, OT and MEETING SPECIALIST. Will await decision to accept.
--- NOTE | 2024-10-24 15:51 | CASEMGMT ---
TC bebo Mckay at [facility], she is aware pt dc'd this date with [facility] set up.
== END 2024-10-24 13:07 | disposition home health service (06) | DRG 378 ==
LOC: ED 23:25 → ICU 10-17 00:18 → MS3 10-17 17:47
PROVIDERS: Internal Medicine; Internal Medicine Gastroenterology; Admitting Provider Internal Medicine; Emergency Provider Surgery; PCP Family Medicine
PROC: 0DJ08ZZ Inspection of Upper Intestinal Tract, Via Natural or Artificial Opening Endoscopic (ICD-10-PCS; CPT 43235; principal; 2024-10-17 11:55)
PROC: 0DJD8ZZ Inspection of Lower Intestinal Tract, Via Natural or Artificial Opening Endoscopic (ICD-10-PCS; CPT 45378; principal; 2024-10-22 13:40)
DX: K57.31 Diverticulosis of large intestine without perforation or abscess with bleeding (principal); D62 Acute posthemorrhagic anemia; D68.32 Hemorrhagic disorder due to extrinsic circulating anticoagulants; E87.21 Acute metabolic acidosis; E83.39 Other disorders of phosphorus metabolism; G30.9 Alzheimer's disease, unspecified; I10 Essential (primary) hypertension; F32.A Depression, unspecified; G25.81 Restless legs syndrome; K62.3 Rectal prolapse; G47.33 Obstructive sleep apnea (adult) (pediatric); F02.80 Dementia in other diseases classified elsewhere, unspecified severity, without behavioral disturbance, psychotic disturbance, mood disturbance, and anxiety; K44.9 Diaphragmatic hernia without obstruction or gangrene; K21.9 Gastro-esophageal reflux disease without esophagitis; F41.9 Anxiety disorder, unspecified; E87.6 Hypokalemia; D12.3 Benign neoplasm of transverse colon; K29.41 Chronic atrophic gastritis with bleeding; T39.015A Adverse effect of aspirin, initial encounter; Z95.0 Presence of cardiac pacemaker; Z79.899 Other long term (current) drug therapy; Z85.3 Personal history of malignant neoplasm of breast; Z86.16 Personal history of COVID-19; Z86.73 Personal history of transient ischemic attack (TIA), and cerebral infarction without residual deficits; Z87.891 Personal history of nicotine dependence
CPT/HCPCS: 36415; 74174; 80048; 80053; 82274; 82728; 83540; 83550; 83605; 83690; 83735; 84100; 84443; 85018; 85025; 85027; 86850; 86870; 86900; 86901; 86902; 86920; 86921; 86922; 88305; 97110; 97116; 97162; 97166; 97530; 97535; 99281; 99285; P9016; Q9967; A4216; J1938; J2405

== ENCOUNTER → 2024-11-06 | Outpatient (CLI) | payer MEDICARE, SELFPAY ==
[2024-11-06 18:09] LABS: Hematocrit 31.9 % (37-47); Hemoglobin 10.5 g/dL (12.0-15.0)
== END | disposition home or self-care (01) ==
LOC: MFPLAB 15:53
PROVIDERS: PCP Family Medicine; Referring Provider Family Medicine; Visit Provider Family Medicine
DX: D64.9 Anemia, unspecified (principal)
CPT/HCPCS: 36415; 85014; 85018

== ENCOUNTER 2024-11-07 15:11 | Emergency (ER) | payer MEDICARE, SELFPAY ==
[2024-11-07 15:12] VITALS: BP 107/93; PULSE 80; RESP 16; TEMP 37; O2SAT 99; BMI 22.3
--- NOTE | 2024-11-07 15:52 | EKG12_ITS ---
Test Reason : DIZZY Blood Pressure : */* mmHG Vent. Rate : 64 BPM Atrial Rate : 64 BPM P-R Int : 142 ms QRS Dur : 84 ms QT Int : 432 ms P-R-T Axes : 18 9 23 degrees QTcB Int : 445 ms Normal sinus rhythm with sinus arrhythmia Nonspecific ST abnormality Abnormal ECG Confirmed by ZORAN BOONE, JUANITA ([id number]), multimedia editor NENA JONES ([id number]) on 11/09/2024 1:10:22 PM Referred By: Charlie High Confirmed By: JUANITA MEEHAN MD
[2024-11-07 16:39] VITALS: BP 188/81; PULSE 64; RESP 16; O2SAT 100
--- NOTE | 2024-11-07 16:43 | EDS_ITS ---
HPI History of Present Illness Chief Complaint: Dizziness [facility] Medical History Anemia GI bleed History of COPD Head injury Laceration of head Inability to ambulate due to knee ZONIA (obstructive sleep apnea)
--- NOTE | 2024-11-07 16:43 | EX.ED.DYSGE1 ---
HPI History of Present Illness Chief Complaint: Dizziness [facility] Medical History Anemia GI bleed History of COPD Head injury Laceration of head Inability to ambulate due to knee ZONIA (obstructive sleep apnea) Essential hypertension History of dementia History of CVA in adulthood Recurrent episodes of unresponsiveness TIA (transient ischemic attack) Confusion COPD (chronic obstructive pulmonary disease) Alzheimer's dementia History of GI bleed GERD (gastroesophageal reflux disease) Anxiety and depression COVID-19 Hypertensive emergency without congestive heart failure DCIS (ductal carcinoma in situ) of breast Vitamin D deficiency Hypercholesterolemia Arthritis Ductal carcinoma in situ (DCIS) of right breast Fall Hypothyroidism Home Medications Medication Instructions Recorded Last Taken Type pramipexole 1.5 mg tablet 1.5 mg PO QHS restless legs 10/16/22 07/14/24 History valsartan 320 1 tab PO DAILY 10/16/22 07/14/24 History mg-hydrochlorothiazide 25 mg tablet memantine 10 mg tablet 10 mg PO DAILY 04/28/23 07/15/24 History amlodipine 5 mg tablet 5 mg PO DAILY 06/11/23 07/14/24 History pantoprazole 40 mg tablet,delayed 40 mg PO BID 30 days #60 tabs 03/25/24 07/15/24 Rx release diphenhydramine 25 1 tab PO QHS PRN sleep 07/15/24 07/14/24 History mg-acetaminophen 500 mg tablet (Acetaminophen PM) escitalopram oxalate 5 mg tablet 5 mg PO 1700 depression 07/15/24 07/14/24 History aspirin 81 mg capsule 81 mg PO DAILY 30 days #30 caps 07/17/24 Unknown Rx Held on 10/23/24. Instructions: Resume on 10/27/24. docusate sodium 100 mg capsule 100 mg PO QHS constipation 10/16/24 Unknown History hydralazine 10 mg tablet 10 mg PO BID PRN PRN blood pressure 10/16/24 Unknown History furosemide 20 mg tablet (Lasix) 20 mg PO DAILY #7 tabs 11/07/24 Unknown Rx Allergy/AdvReac Type Severity Reaction Status Date / Time lisinopril Allergy Mild cough Verified 11/07/24 15:16 alendronate sodium (From Allergy Unknown unknown Verified 11/07/24 15:16 Fosamax) Sulfa (Sulfonamide Allergy Rash Verified 11/07/24 15:16 Antibiotics) atorvastatin (From Lipitor) AdvReac Mild muscle Verified 11/07/24 15:16 aches rosuvastatin (From Crestor) AdvReac Mild muscle Verified 11/07/24 15:16 aches codeine AdvReac Nausea Verified 11/07/24 15:16 NSAIDS (Non-Steroidal AdvReac Bleeding Verified 11/07/24 15:16 Anti-Inflamma Family History Mother Heart disease CVA (cerebral vascular accident) Father Heart disease Surgical History Status post placement of implantable loop recorder (11/08/22) History of right hip replacement History of left mastoidectomy History of lumpectomy of right breast History of thyroid surgery History of hysterectomy Social History household members: spouse Smoking Status: Former smoker how long ago did patient quit smoking: Quit ~ 24-25 years prior. alcohol intake: current alcohol intake frequency: a few times a month details: 1 drink/[place] nightly. substance use type: other details: Given THC chew per her family for sleep but prior no substance use. EXAM Physical Exam Const Vital Signs: 11/07/24 15:12 11/07/24 15:52 11/07/24 16:39 Temperature 98.6 F Temperature Source Oral Pulse Rate 80 64 Respiratory Rate 16 16 Blood Pressure 107/93 H 188/81 H Blood Pressure Mean 97 116 Pulse Ox 99 100 Oxygen Delivery Method Room Air Room Air Room Air Oxygen Flow Rate (L/min) 100 11/07/24 18:00 11/07/24 20:00 11/07/24 20:23 Temperature 97.9 F Temperature Source Pulse Rate 70 73 73 Respiratory Rate 18 18 Blood Pressure 174/78 H 123/67 H Blood Pressure Mean 110 85 Pulse Ox 95 96 Oxygen Delivery Method Room Air Oxygen Flow Rate (L/min) MDM MDM MDM Narrative Medical decision making narrative: HISTORY OF PRESENT ILLNESS: Chief complaint: Dizzy, diffuse weakness and shortness of breath with exertion 84-year-old female history of debility, hypertension, CVA, hyperlipidemia, anxiety, hypothyroidism presents with concern for diffuse weakness, lightheadedness, dizziness and dyspnea on exertion. She states this began several days ago. Denies cough fever or chills. Denies bleeding diathesis. Denies urinary complaints. Denies change in mental status. Denies headache. Denies chest pain. Denies focal weakness. The patient denies recent surgery in the last 4 weeks or immobilization in the last 3 days, denies previous diagnosis of DVT or PE, hemoptysis, unilateral leg swelling or malignancy with treatment the last 6 months or palliative. No estrogen use noted. REVIEW OF SYSTEMS: Pertinent positives: Dizziness, lightheadedness, dyspnea on exertion Pertinent negatives: Lower EXTR edema, orthopnea, chest pain, bleeding diathesis PHYSICAL EXAM: Nursing triage notes reviewed, Vital signs reviewed Constitutional: please see mdm HENT: MMM Eyes: Pupils equal round and reactive to light, Extraocular muscles intact Neck: No stridor, no JVD, full neck ROM Lungs: Clear to auscultation, No wheezing or rales. No increased work of breathing, no conversational dyspnea, no accessory muscle use, no nasal flaring. No respiratory distress noted Heart: Regular rate and rhythm, No murmurs, No rubs and No gallops, 2+ distal pulses (radial, femoral, posterior tibial) in all extremities Abdomen: Soft, there is no tenderness, rigidity, rebound or guarding, no obvious peritoneal signs, no palpable pulsatile abdominal masses, no auscultated abdominal bruit : No CVAT Extremities: No edema Neuro: Alert and oriented x3, neuro exam at baseline, cranial nerves II through XII are intact. No pain with extraocular muscle movement. There is negative test of skew. 5 of 5 strength in upper and lower extremities in flexion extension. Intact sensation to light touch in upper and lower extremity dermatomes. No truncal or extremity ataxia. No dysdiadochokinesia. Normal gait. 2+ reflexes in upper and lower extremities. No meningeal signs. Negative Babinski. NIH of 0. Skin: No rash or lesions noted MEDICAL DECISION MAKING: Chief Complaint: please see HPI External records reviewed: Prior echocardiogram from 2023 showed ejection fraction of 60%. Factors affecting care: as per HPI Social determinants of health: none History obtained from others: Daughter Consults: none [facility] Narrative: The patient was initially hemodynamically stable, afebrile and nontoxic-appearing. Exam without focal neurologic deficits. No focal cardiopulmonary abnormalities noted. I considered the following differential diagnosis: ICH, mass, subacute CVA, pneumonia, CHF, arrhythmia, anemia, electrolyte disturbance, PE While I considered pulmonary embolism as a potential etiology given shortness of breath and dyspnea on exertion the patient low risk Wells score and as such a low suspicion for PE. No indication for D-dimer or CT at this time. I obtained a broad lab and imaging to further determine if the patient was suffering from a life-threatening etiology. Initially treated with IV fluids ALL IMAGES (IF OBTAINED) HAVE BEEN PERSONALLY REVIEWED AND INTERPRETED BY MYSELF. CBC with no leukocytosis, noted anemia improved from prior study , no thrombocytopenia No coagulopathy BMP without evidence of significant electrolyte abnormalities, no anion gap, no acute kidney injury. LFTs show no evidence of hepatobiliary pathology. High-sensitivity troponin is negative, no evidence of myocardial ischemiax2 effectively rules out ACS based on [facility]'s high-sensitivity troponin protocol BNP within normal limits making heart failure less likely Urinalysis shows no evidence of urinary inflammation suggestive of UTI I have personally reviewed the patient's chest x-ray. Chest x-ray is unremarkable for pulmonary edema, pneumothorax, pneumonia or focal cardiopulmonary abnormality. Radiologist noted some signs of mild vascular congestion however the patient ambulated out hypoxia. CT scan of the brain was negative for ICH, mass or signs of subacute CVA The synthesis of the patient's history, physical exam, labs, images suggest potentially mild volume overload based on chest x-ray however the patient's BNP is negative and she ambulated here in the ED without hypoxia. Given stable vitals I think the patient is appropriate for discharge home will start a short course of oral Lasix (20 mg daily) for neck 7 days with prompt follow with her primary care physician for repeat assessment, outpatient echo. I ordered the outpatient echocardiogram for the patient. I understand decision-making prescription with the patient she was offered admission however she felt comfortable to plan proposed as above. Strict return precautions were discussed. The patient and/or family, caregivers express understanding. The patient and/or family, caregivers agrees with the plan. Shared decision making: I will have a discussion with the patient and or visitors regarding risk/benefits of further testing or admission. They will be made aware of of the risk/benefits inherent in this decision they will be given the opportunity to voice understanding. Total critical care time today provided was at least 0 minutes. This excludes separately billable procedures. Critical care time (if documented) is secondary to the patient having high probability of clinically significant/life threatening deterioration in the patient's condition which required my urgent intervention. Impression: 1. Dyspnea 2. Pulmonary vascular congestion Dispo: Discharge home This note was generated with [employer] dictation software. It may contain incorrect words, spelling, and punctuation that were not noted in review of the chart prior to signing. Lab Data Labs: Laboratory Results - last 24 hr 11/07/24 11/07/24 17:21 19:19 WBC 10.0 RBC 4.11 L Hgb 11.5 L Hct 34.5 L MCV 83.9 MCH 28.0 MCHC 33.3 RDW Std Deviation 45.0 H RDW Coeff of Kierra 14.8 H Plt Count 392 MPV 9.7 Immature Gran % (Auto) 0.400 Neut % (Auto) 71.8 H Lymph % (Auto) 16.0 L [place] % (Auto) 9.3 Eos % (Auto) 1.7 Baso % (Auto) 0.8 Absolute Neuts (auto) 7.2 Absolute Lymphs (auto) 1.60 Nucleated RBC % 0 PT 13.5 INR 1.0 Sodium 138 Potassium 3.3 Chloride 98 Carbon Dioxide 24.1 Anion Gap 15 BUN 18 Creatinine 0.67 L Estim Creat Clear Calc 43.30 L Est GFR (MDRD) Non-Af 86 BUN/Creatinine Ratio 26.9 H Glucose 107 H Calcium 9.9 Total Bilirubin 0.47 Direct Bilirubin 0.18 AST 24 ALT 17 Alkaline Phosphatase 75 Troponin T High Sens 13 Troponin T Hi Sens 2 Hr 13 NT pro BNP II 296 Total Protein 7.7 Albumin 4.4 Globulin 3.3 Urine Color Straw Urine Clarity Clear Urine pH 6.0 Ur Specific [place] 1.015 Urine Protein 15 H Urine Glucose (UA) Normal Urine Ketones Negative Urine Occult Blood Negative Urine Nitrite Negative Urine Bilirubin Negative Urine Urobilinogen Normal Ur Leukocyte Esterase 25 H Urine RBC 0-5 SEEN Urine WBC 0-5 SEEN Ur Squamous Epith Cells 5-10 SEEN Urine Bacteria 0 SEEN Urine Mucus 0 SEEN Radiography Diagnostic Testing: Clinical Impression(s) from Imaging Studies Brain CT 11/07/24 16:58 IMPRESSION: 1. No evidence of acute intracranial pathology. 2. 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 Reading Location: [facility] Chest X-Ray 11/07/24 17:30 IMPRESSION: Cardiomegaly with mild vascular congestion. No pleural effusions. Reading Location: [facility] Discharge Plan Triage Chief Complaint: Dizziness ED Provider: Charlie High Dx/Rx/DC Orders Clinical Impression: SOB (shortness of breath) Instructions: Pulmonary Edema Prescriptions: New furosemide [Lasix] 20 mg tablet 20 mg PO DAILY Qty: 7 0RF No Action pramipexole 1.5 mg tablet 1.5 mg PO QHS Patient Comments: TAKE 1 TABLET 2 TO 3 HOURS BEFORE BEDTIME FOR RESTLESS LEGS valsartan-hydrochlorothiazide 320-25 mg tablet 1 tab PO DAILY memantine 10 mg tablet 10 mg PO DAILY amlodipine 5 mg tablet 5 mg PO DAILY escitalopram oxalate 5 mg tablet 5 mg PO 1700 diphenhydramine-acetaminophen [Acetaminophen PM] 25-500 mg tablet 1 tab PO QHS PRN (Reason: sleep) aspirin 81 mg capsule 81 mg PO DAILY 30 Days Qty: 30 0RF pantoprazole 40 mg Tablet,Delayed Release (Dr/Ec) 40 mg PO BID 30 Days Qty: 60 2RF hydralazine 10 mg tablet 10 mg PO BID PRN PRN (Reason: blood pressure) docusate sodium 100 mg capsule 100 mg PO QHS Other Ambulatory Orders: Echo Complete (Routine) Facility: [facility] - Location: [facility] Ordered By: Dr. Charlie High Primary Care Provider: Vikram Segura Referrals: Vikram Seguar MD [Primary Care Provider] - Activity Restrictions/Additional Instructions: Thank you for trusting us with your care today! Your labs and images were overall reassuring. We did notice some increased fluid on your lungs are consistent with pulmonary edema and/or pulmonary vascular congestion. This can be a sign of congestive heart failure however the remainder of your testing your heart including blood test EKG were reassuring. I feel you can be treated as an outpatient with a small dose of a "water pill" (Lasix or furosemide). Please take this daily as prescribed. This will make you go to the bathroom more often which would decrease fluid in your system. I have ordered an outpatient ultrasound of your heart. Please expect a call from our echocardiogram department to schedule your ultrasound. Please return to the emergency department if your symptoms change or worsen. Please follow with your primary care physician for further outpatient evaluation and management. Print Language: Tanzanian Disposition Disposition: Home, Self Care Discharge Date/Time: 11/07/24 20:31
--- NOTE | 2024-11-07 16:58 | CT_ITS ---
PROCEDURE: BRAIN/HEAD WITHOUT CONTRAST 11/07/2024 REASON FOR EXAM: DIZZINESS TECHNIQUE: BRAIN/HEAD WITHOUT CONTRAST Coronal and Sagittal reconstruction series were provided. One or more dose reduction techniques were used (e.g., Automated exposure control, adjustment of the mA and/or kV according to patient size, use of iterative reconstruction technique. RADIATION DOSE SUMMARY: CTDlvol: 44.99 mGy DLP: 846.73 mGycm COMPARISON: 06/26/2023 FINDINGS: No acute intracranial hemorrhage, extra-axial collection, mass effect or evidence of acute infarct. Moderate generalized brain parenchymal volume loss. Moderate-advanced chronic small-vessel ischemic changes with multiple chronic appearing lacunar infarcts within the right basal ganglia, left thalamus, and left gume. Chronic encephalomalacia/gliosis in the right parietal cortex. Prior bilateral cataract surgery. Atherosclerotic vascular calcifications. Skull base and calvarium are intact. Well-aerated paranasal sinuses and bilateral mastoid air cells. CT/Brain/Head without Contrast IMPRESSION: 1. No evidence of acute intracranial pathology. 2. Moderate-advanced chronic small-vessel ischemic changes with several old lac unar infarcts and chronic encephalomalacia/gliosis in the right parietal lobe, as described. Reading Location: [id number]
[2024-11-07] MEDS: 0.9% Normal Saline (500mL Bag) 500 ML 1000 ML IV (17:23)
--- NOTE | 2024-11-07 17:30 | RAD_ITS ---
PROCEDURE: CHEST 1 VIEW (PORTABLE) 11/07/2024 REASON FOR EXAM: SHORTNESS OF BREATH TECHNIQUE: Frontal view of the chest. COMPARISON: 07/24/2023 FINDINGS: Lungs/Pleura: Clear. No pneumothorax or sizable pleural effusion. Heart/Mediastinum: Cardiomegaly. Mild vascular congestion. Mildly tortuous and calcified thoracic aorta. Cardiac loop recorder device projects over the paramedian left chest wall. Bones/Soft tissues: Mild degenerative changes of the spine and AC joints. Trace calcific tendinosis of the left shoulder rotator cuff. RAD/Chest 1 View (Portable) IMPRESSION: Cardiomegaly with mild vascular congestion. No pleural effusions. Reading Location: [id number]
[2024-11-07 17:35] LABS: Mucous, Urine 0 SEEN /hpf (<or=2+)
[2024-11-07 17:54] LABS: Hematocrit 34.5 % (37-47); Hemoglobin 11.5 g/dL (12.0-15.0); Immature Granulocytes Count 0.040 X10^3/uL (0.0-0.0); Mean Corp Hgb Conc 33.3 g/dL (32-36); Mean Corpuscular Volume 83.9 fL (81-99); Mean Platelet Vol. 9.7 fl (6.2-12.0); NRBC Flagged by Analyzer 0 % (0-5); Platelet Count 392 K/mm3 (150-450); RBC Distribution Width CV 14.8 % (11.6-14.6); RBC Distribution Width SD 45.0 fl (35.1-43.9); Red Blood Count 4.11 M/mm3 (4.2-5.4); White Blood Count 10.0 K/mm3 (4.4-11.0)
[2024-11-07 18:00] VITALS: BP 174/78; PULSE 70; RESP 18; O2SAT 95
[2024-11-07 18:06] LABS: AST(SGOT) 24 U/L (<=31); Alanine Aminotransfer ALT/SGPT 17 U/L (<=34); Albumin, Serum 4.4 g/dL (3.4-4.8); Alkaline Phosphatase 75 U/L (35-104); Bilirubin, Direct 0.18 mg/dL (0.00-0.30); Globulin 3.3 g/dL (2.2-4.2); Pro- Brain NATRIURETIC PEPTIDE 296 pg/mL (<=1800); Prothrombin Time (Protime)PT. 13.5 SECONDS (11.7-14.9); Troponin T High Sensitivity 13 ng/L (<=14)
[2024-11-07 18:07] LABS: Color, Urine Straw (Yellow); Glucose, Dipstick Normal (Normal); Ketone-Dipstick Negative (Negative); Leukocyte Esterase-Dipstick 25 /ul (Negative); Nitrite-Dipstick Negative (Negative); Occult Blood-Urine Negative /ul (Negative); Protein-Dipstick 15 mg/dl (Negative); Specific Gravity, Urine 1.015 (1.002-1.030); Urine Bilirubin Dipstick Negative (Negative)
[2024-11-07 18:31] LABS: Anion Gap 15 (5-15); BUN 18 mg/dL (4-19); BUN/Creat Ratio 26.9 RATIO (10-20); Calcium,Total 9.9 mg/dL (7.6-11.0); Carbon Dioxide 24.1 mmol/L (21.0-32.0); Chloride 98 mmol/L (98-108); Estimated Creatinine Clearance 43.30 ml/min (50-250); Glucose 107 mg/dL (70-99); Potassium 3.3 mmol/L (3.3-5.1)
[2024-11-07 19:32] LABS: Red Blood Cells-Urine 0-5 SEEN /hpf (0-5); Squamous Epithelial Cells - UA 5-10 SEEN /hpf (5-10)
[2024-11-07 19:33] VITALS: O2SAT 93
[2024-11-07 19:48] LABS: Troponin T High Sens 2 HR 13 ng/L (<=14)
[2024-11-07 20:00] VITALS: PULSE 73
[2024-11-07 20:23] VITALS: BP 123/67; PULSE 73; RESP 18; TEMP 36.6; O2SAT 96
== END 2024-11-07 20:31 | disposition home or self-care (01) ==
PROVIDERS: Emergency Provider Emergency Medicine; PCP Family Medicine; Referring Provider Emergency Medicine; Visit Provider Emergency Medicine
DX: R06.02 Shortness of breath (principal); R09.89 Other specified symptoms and signs involving the circulatory and respiratory systems; Z87.891 Personal history of nicotine dependence
CPT/HCPCS: 70450; 71045; 80048; 80076; 81001; 83880; 84484; 85025; 85610; 93005; 96360; 99283; A4216

== ENCOUNTER → 2024-11-29 | Outpatient (CLI) | payer MEDICARE, SELFPAY ==
--- NOTE | 2024-11-29 09:39 | ECHOD_ITS ---
Reason For Study Reason For Study: CHF Procedure This was a 2D Doppler, Color Flow transthoracic echocardiogram. Exam performed in department. Left Ventricle Normal LV size. Left ventricular systolic function is normal. The left ventricular ejection fraction is 65 %. Stage 1 diastolic dysfunction. No regional wall motion abnormalities noted. Right Ventricle Normal RV size. ICD or pacer leads identified within the right ventricle. Normal systolic function. Atria Normal left atrium. Normal right atrium. Mitral Valve Normal mitral valve. Tricuspid Valve Normal tricuspid valve. Mild (1+) tricuspid valve insufficiency. Pulmonary artery systolic pressure is 30 mmHg. Pulmonic Valve Normal pulmonic valve. Great Vessels Normal aortic root. The pulmonary artery is normal size. Inferior vena cava collapse with respiration. Pericardium/Pleural No pericardial effusion. MMode/2D Measurements & Calculations LVIDd: 4.1 cm IVSd: 0.84 cm Ao root diam: 2.9 cm LVIDs: 2.8 cm LVPWd: 0.98 cm RVDd: 2.5 cm FS: 30.9 % LAV(MOD-bp): 47.0 ml LVAd ap4: 21.1 cm2 LVAd ap2: 17.7 cm2 LAV(MOD-bp) Indexed: 29.7 ml/m2 LVLd ap4: 6.7 cm LVLd ap2: 6.1 cm LAV(MOD-sp2): 46.6 ml EDV(MOD-sp4): 56.4 ml EDV(MOD-sp2): 43.4 ml LAV(MOD-sp4): 46.1 ml EDV(sp4-el): 56.2 ml EDV(sp2-el): 43.3 ml LVAs ap4: 9.3 cm2 LVAs ap2: 9.1 cm2 LVLs ap4: 5.1 cm LVLs ap2: 5.1 cm ESV(MOD-sp4): 15.8 ml ESV(MOD-sp2): 15.4 ml ESV(sp4-el): 14.4 ml ESV(sp2-el): 13.6 ml EF(MOD-sp4): 72.0 % EF(MOD-sp2): 64.5 % EF(sp4-el): 74.4 % SV(MOD-sp4): 40.6 ml SV(MOD-sp2): 28.0 ml SV(sp4-el): 41.8 ml SI(MOD-sp4): 25.6 ml/m2 SI(MOD-sp2): 17.7 ml/m2 LA A4 area: 16.5 cm2 LA dimension(2D): 3.8 cm RA A4 area: 13.1 cm2 TAPSE: 1.8 cm Time Measurements MV dec time: 0.26 sec Doppler Measurements & Calculations MV E max estevan: 62.9 cm/sec Lat Peak E' Estevan: 7.5 cm/sec Med Peak E' Estevan: 7.6 cm/sec MV A max estevan: 80.3 cm/sec E/E' lat: 8.3 E/E' med: 8.2 MV E/A: 0.78 MV V2 max: 92.9 cm/sec MV P1/2t max estevan: 97.8 cm/sec Ao V2 max: 169.2 cm/sec MV max P.4 mmHg MV P1/2t: 69.7 msec Ao max P.4 mmHg MV V2 mean: 32.0 cm/sec Ao V2 mean: 117.0 cm/sec MV mean P.59 mmHg MV dec slope: 411.0 cm/sec2 Ao mean P.2 mmHg MV V2 VTI: 32.1 cm MVA(P1/2t): 3.2 cm2 Ao V2 VTI: 40.4 cm AV (velocity ratio): 0.66 LV V1 max: 122.3 cm/sec PA V2 max: 87.4 cm/sec TR max estevan: 259.9 cm/sec LV V1 max P.0 mmHg PA V2 mean: 58.1 cm/sec TR max P.0 mmHg LV V1 mean P.2 mmHg LV V1 mean: 83.1 cm/sec LV V1 VTI: 26.7 cm ECHO/Echo Complete Interpretation Summary Normal LV size. Left ventricular systolic function is normal. The left ventricular ejection fraction is 65 %. Stage 1 diastolic dysfunction. Pulmonary artery systolic pressure is 30 mmHg. Ordering Physician: Charlie High Referring Physician: Vikram Segura Performed By: Nuvia Barney RDCS, RVT
== END | disposition home or self-care (01) ==
LOC: CVS 09:38
PROVIDERS: PCP Family Medicine; Referring Provider Emergency Medicine; Visit Provider Emergency Medicine
DX: R06.02 Shortness of breath (principal)
CPT/HCPCS: 93306

== ENCOUNTER → 2025-01-07 | Outpatient (CLI) | payer MEDICARE, SELFPAY ==
--- NOTE | 2025-01-07 09:25 | RAD_ITS ---
PROCEDURE: ABDOMEN SINGLE VIEW 01/07/2025 REASON FOR EXAM: RLQ AND LLQ PAIN TECHNIQUE: Procedure Code: RADABD Modality: DX Procedure: ABDOMEN SINGLE VIEW COMPARISON: None FINDINGS: There is a nonobstructive bowel gas pattern with an increased stool load consistent with constipation. There are scattered calcifications present which could obscure renal stones. There are no air-fluid levels. Hardware is noted in the right hip. There is no visible acute bony abnormality. RAD/Abdomen Single View IMPRESSION: There is a nonobstructive bowel gas pattern with an increased stool load consis tent with constipation. Reading Location: [facility]
[2025-01-07 15:33] LABS: Hematocrit 35.6 % (37-47); Hemoglobin 11.0 g/dL (12.0-15.0); Immature Granulocytes Count 0.040 X10^3/uL (0.0-0.0); Mean Corp Hgb Conc 30.9 g/dL (32-36); Mean Corpuscular Volume 80.4 fL (81-99); Mean Platelet Vol. 11.0 fl (6.2-12.0); NRBC Flagged by Analyzer 0 % (0-5); POSITIVE DIFFERENTIAL YES; Platelet Count 282 K/mm3 (150-450); RBC Distribution Width CV 16.6 % (11.6-14.6); RBC Distribution Width SD 48.5 fl (35.1-43.9); Red Blood Count 4.43 M/mm3 (4.2-5.4); White Blood Count 13.0 K/mm3 (4.4-11.0)
[2025-01-07 15:47] LABS: Differential Indicated SCAN CRITERIA MET
== END | disposition home or self-care (01) ==
LOC: MTLAB 09:25
PROVIDERS: PCP Family Medicine
DX: R19.7 Diarrhea, unspecified (principal); R10.31 Right lower quadrant pain; R10.32 Left lower quadrant pain
CPT/HCPCS: 36415; 74018; 85025

== ENCOUNTER 2025-01-10 18:36 | Emergency (ER) | payer MEDICARE, SELFPAY ==
[2025-01-10 18:37] VITALS: BP 149/60; PULSE 86; RESP 18; TEMP 36; O2SAT 95; BMI 21.9
[2025-01-10 19:49] LABS: Hematocrit 35.3 % (37-47); Hemoglobin 11.2 g/dL (12.0-15.0); Immature Granulocytes Count 0.040 X10^3/uL (0.0-0.0); Mean Corp Hgb Conc 31.7 g/dL (32-36); Mean Corpuscular Volume 80.0 fL (81-99); Mean Platelet Vol. 9.7 fl (6.2-12.0); NRBC Flagged by Analyzer 0 % (0-5); Platelet Count 317 K/mm3 (150-450); RBC Distribution Width CV 16.6 % (11.6-14.6); RBC Distribution Width SD 48.2 fl (35.1-43.9); Red Blood Count 4.41 M/mm3 (4.2-5.4); White Blood Count 10.0 K/mm3 (4.4-11.0)
[2025-01-10] MEDS: 0.9% Normal Saline (1000mL) 1,000 ML 1000 ML IV (19:58)
--- NOTE | 2025-01-10 20:05 | CT_ITS ---
PROCEDURE: ABDOMEN/PELVIS W IV CONT ONLY 01/10/2025 REASON FOR EXAM: DIARRHEA X 2 WEEKS, LEFT LOWER QUADRANT ABDOMINAL TECHNIQUE: Procedure Code: [id number] Modality: CT Procedure: ABDOMEN/PELVIS W IV CONT ONLY Coronal and Sagittal reconstruction series were provided. CONTRAST: Isovue 3 7 VOLUME: 96 mL One or more dose reduction techniques were used (e.g., Automated exposure control, adjustment of the mA and/or kV according to patient size, use of iterative reconstruction technique. RADIATION DOSE SUMMARY: CTDlvol: 13+ 15 mGy DLP: 702 mGycm COMPARISON: 10/16/2024. FINDINGS: The lung bases are clear. The peripheral soft tissues unremarkable. Right hip arthroplasty. Degenerative changes of the spine. Diffuse osseous demineralization. Grade 1 anterolisthesis of L4 on L5. Severe atherosclerosis. Infrarenal abdominal aortic fusiform ectasia measures 2.2 cm. No suspicious lymphadenopathy. Hypodense liver suspicious for steatosis. The gallbladder, pancreas, spleen, and adrenals are unremarkable. Left kidney simple cyst. No hydroureteronephrosis. The urinary bladder is unremarkable. Surgically absent uterus. Extensive colonic diverticulosis. Mild fat stranding adjacent to a descending colon diverticula suspicious for acute uncomplicated diverticulitis CT/Abdomen/Pelvis W IV Cont ONLY IMPRESSION: Acute uncomplicated sigmoid diverticulitis. Reading Location: [id number]
[2025-01-10 20:36] VITALS: BP 142/64; PULSE 65; RESP 16; O2SAT 98
--- OUTSIDE RECORDS SUMMARY | 2025-01-10 20:38 | XMS RPT_ITS | CCD ---
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 blood] 09-15-2022 Episodic Superficial injury; contusion (19 sources) Contusion of chest; Translations: [Contusion of [...] [65 years of age or older] 01-19-2021 Unclassified (9 sources) Daughter of the patient stated that she would like to make the patients appointment. Viral infection (20 sources) Disease caused by 2019-nCoV; Translations: [COVID-19] 01-19-2021 Episodic Past or Other Problems Problem Classification Problem Date Documented Da te Episodic/Chronic Other lower respiratory disease (1 source) Other forms of dyspnea; Translations: [Other forms of dyspnea] Onset: 03-30-2024 Episodic Residual codes; unclassified (2 sources) Localized edema; Translations: [Localized edema] Onset: 10-02-2024 Episodic Unclassified (20 sources) history excisional breast biopsy right Onset: 10-16-2018 11-15-2021 Unclassified (20 sources) right breast cancer 11-15-2021 Results Test Name Value Interpretation Reference Range Facility Abdomen Single Viewon 2024 Abdomen Single View Normal [facility] CBC W/Diff, Automatedon 12-18 Absolute Lymph 1.17 X10 3/uL Normal 0.83-4.51 [facility] Comment on above: Order Comment: Order Date: 01/07/25Order Info: 0184-1 - CBCD Performed By: #### L 100.0100 ####[facility] [address] [place], [address] Absolute Neut 10.0 X10 3/uL High 2.0-7.7 [facility] Comment on above: Order Comment: Order Date: 01/07/25Order Info: 0184-1 - CBCD Performed By: #### L 100.0100 ####[facility] [address] [place], [address] Basophils/100 WBC (Bld) 0.6 % Normal 0-1 [facility] Comment on above: Order Comment: Order Date: 01/07/25Order Info: 0184-1 - CBCD Performed By: #### L 100.0100 ####[facility] [address] [place], [address] Eosinophils/100 WBC (Bld) 0.5 % Normal 0-5 [facility] Comment on above: Order Comment: Order Date: 01/07/25Order Info: 0184-1 - CBCD Performed By: #### L 100.0100 ####[facility] [address] [place], [address] Erythrocyte distribution width (RBC) [Ratio] 16.6 % High 11.6-14.6 [facility] Comment on above: Order Comment: Order Date: 01/07/25Order Info: 0184-1 - CBCD Performed By: #### L 100.0100 ####[facility] [address] [place], [address] Hematocrit (Bld) [Volume fraction] 35.6 % Low 37-47 [facility] Comment on above: Order Comment: Order Date: 01/07/25Order Info: 0184-1 - CBCD Performed By: #### L 100.0100 ####[facility] [address] [place], [address] Hemoglobin (Bld) [Mass/Vol] 11.0 g/dL Low 12.0-15.0 [facility] Comment on above: Order Comment: Order Date: 01/07/25Order Info: 018- - CBCD Performed By: #### L 100.0100 ####[facility] [address] [place], [place], [id number] IG% 0.300 Normal 0.0-0.9 [facility] Comment on above: Order Comment: Order Date: 01/07/25Order Info: 018- - CBCD Result Comment: IG% - Immature Granulocytes (promyelocytes, myelocytes andmetamyelocytes) > 1% indicates that a LEFT SHIFT is Present. Performed By: #### L 100.0100 ####[facility] [address] [place], [address] Lymphocytes/100 WBC (Bld) 9.0 % Low 19-41 [facility] Comment on above: Order Comment: Order Date: 01/07/25Order Info: 0184-1 - CBCD Performed By: #### L 100.0100 ####[facility] [address] [place], [address] MCH (RBC) [Entitic mass] 24.8 pg Low 27.0-32.0 [facility] Comment on above: Order Comment: Order Date: 01/07/25Order Info: 4-1 - CBCD Performed By: #### L 100.0100 ####[facility] [address] [place], [address] MCHC (RBC) [Mass/Vol] 30.9 g/dL Low 32-36 [place] Comment on above: Order Comment: Order Date: 01/07/25Order Info: 4-1 - CBCD Performed By: #### L 100.0100 ####[facility] [address] [place], [address] MCV (RBC) [Entitic vol] 80.4 fL Low 81-99 [facility] Comment on above: Order Comment: Order Date: 01/07/25Order Info: 183- - CBCD Performed By: #### L 100.0100 ####[facility] [address] [place], [address] Monocytes/100 WBC (Bld) 12.7 % High 0-10 [facility] Comment on above: Order Comment: Order Date: 01/07/25Order Info: 183- - CBCD Performed By: #### L 100.0100 ####[facility] [address] [place], [address] Neutrophils/100 WBC (Bld) 76.9 % High 47-70 [facility] Comment on above: Order Comment: Order Date: 01/07/25Order Info: 4-1 - CBCD Performed By: #### L 100.0100 ####[facility] [address] [place], [address] Nucleated RBC (Bld) [#/Vol] 0 10*3/uL Normal 0-5 [facility] Comment on above: Order Comment: Order Date: 01/07/25Order Info: 4-1 - CBCD Performed By: #### L 100.0100 ####[facility] [address] [place], [address] Platelet mean volume (Bld) [Entitic vol] 11.0 fL Normal 6.2-12.0 [facility] Comment on above: Order Comment: Order Date: 01/07/25Order Info: 0184-1 - CBCD Performed By: #### L 100.0100 ####[facility] [address] [place], [address] Platelets (Bld) [#/Vol] 282 10*3/uL Normal 150-450 [facility] Comment on above: Order Comment: Order Date: 01/07/25Order Info: 0184-1 - CBCD Performed By: #### L 100.0100 ####[facility] [address] [place], [address] RBC (Bld) [#/Vol] 4.43 10*6/uL Normal 4.2-5.4 [facility] Comment on above: Order Comment: Order Date: 01/07/25Order Info: 0184-1 - CBCD Performed By: #### L 100.0100 ####[facility] [address] [place], [address] RDW SD 48.5 fl High 35.1-43.9 [facility] Comment on above: Order Comment: Order Date: 01/07/25Order Info: 0184-1 - CBCD Performed By: #### L 100.0100 ####[facility] [address] [place], [address] WBC (Bld) [#/Vol] 13.0 10*3/uL High 4.4-11.0 [facility] Comment on above: Order Comment: Order Date: 01/07/25Order Info: 0184-1 - CBCD Performed By: #### L 100.0100 ####[facility] [address] [place], [address] Cardiology Visit Reporton Cardiology Visit Report Normal [facility] Echo Completeon 11-29-2024 Echo Complete Normal [facility] Echocardiogram study reportO rdered By: Catalino Sidhu on 11-29-2024 Study report [facility] [place] [address] Echo Complete 11/29/24 0947 MR#: [id number] Acct: [id number] Name: XAVIER RAHMAN Rep #:[id number] : 1940 84 From: Catalino Mai Attending Dr: Dr. Charlie High, DO Status: REG CLI Ordering Dr: Charlie High DO Date: 0 11/29/24 Location: [facility] Sex: F C Admitted: Reason For Study Reason For Study: CHF Procedure This was a 2D Doppler, Color Flow transthoracic echocardiogram. Exam performed in department. Left Ventricle Normal LV size. Left ventricular systolic function is normal. The left ventricular ejection fraction is 65 %. Stage 1 diastolic dysfunction. No regional wall motion abnormalities noted. Right Ventricle Normal RV size. ICD or pacer leads identified within the right ventricle. Normalsystolic function. Atria Normal left atrium. Normal right atrium. Mitral Valve Normal mitral valve. Tricuspid Valve Normal tricuspid valve. Mild (1+) tricuspid valve insufficiency. Pulmonary artery systolic pressure is 30 mmHg. Pulmonic Valve Normal pulmonic valve. Great Vessels Normal aortic root. The pulmonary artery is normal size. Inferior vena cava collapse with respiration. Pericardium/Pleural No pericardial effusion. MMode/2D Measurements & Calculations LVIDd: 4.1 cm IVSd: 0.84 cm Ao root diam: 2.9 cm LVIDs: 2.8 cm LVPWd: 0.98 cm RVDd: 2.5 cm FS: 30.9 % LAV(MOD-bp): 47.0 ml LVAd ap4: 21.1 cm2 LVAd ap2: 17.7 cm2 LAV(MOD-bp) Indexed: 29.7 ml/m2 LVLd ap4: 6.7 cm LVLd ap2: 6.1 cm LAV(MOD-sp2): 46.6 ml EDV(MOD-sp4): 56.4 ml EDV(MOD-sp2): 43.4 ml LAV(MOD-sp4): 46.1 ml EDV(sp4-el): 56.2 ml EDV(sp2-el): 43.3 ml LVAs ap4: 9.3 cm2 LVAs ap2: 9.1 cm2 LVLs ap4: 5.1 cm LVLs ap2: 5.1 cm ESV(MOD-sp4): 15.8 ml ESV(MOD-sp2): 15.4 ml ESV(sp4-el): 14.4 ml ESV(sp2-el): 13.6 ml EF(MOD-sp4): 72.0 % EF(MOD-sp2): 64.5 % EF(sp4-el): 74.4 % SV(MOD-sp4): 40.6 ml SV(MOD-sp2): 28.0 ml SV(sp4-el): 41.8 ml SI(MOD-sp4): 25.6 ml/m2 SI(MOD-sp2): 17.7 ml/m2 LA A4 area: 16.5 cm2 LA dimension(2D): 3.8 cm RA A4 area: 13.1 cm2 TAPSE: 1.8 cm Time Measurements MV dec time: 0.26 sec Doppler Measurements & Calculations MV E max ping: 62.9 cm/sec Lat Peak E' Ping: 7.5 cm/sec Med Peak E' Ping: 7.6 cm/sec MV A max ping: 80.3 cm/sec E/E' lat: 8.3 E/E' med: 8.2 MV E/A: 0.78 MV V2 max: 92.9 cm/sec MV P1/2t max ping: 97.8 cm/sec Ao V2 max: 169.2 cm/sec MV max P.4 mmHg MV P1/2t: 69.7 msec Ao max P.4 mmHg MV V2 mean: 32.0 cm/sec Ao V2 mean: 117.0 cm/sec MV mean P.59 mmHg MV dec slope: 411.0 cm/sec2 Ao mean P.2 mmHg MV V2 VTI: 32.1 cm MVA(P1/2t): 3.2 cm2 Ao V2 VTI: 40.4 cm AV (velocity ratio): 0.66 LV V1 max: 122.3 cm/sec PA V2 max: 87.4 cm/sec TR max ping: 259.9 cm/sec LV V1 max P.0 mmHg PA V2 mean: 58.1 cm/sec TR max P.0 mmHg LV V1 mean P.2 mmHg LV V1 mean: 83.1 cm/sec LV V1 VTI: 26.7 cm ECHO/Echo Complete Interpretation Summary Normal LV size. Left ventricular systolic function is normal. The left ventricular ejection fraction is 65 %. Stage 1 diastolic dysfunction. Pulmonary artery systolic pressure is 30 mmHg. Ordering Physician: Charlie High Referring Physician: Jose Hdz Performed By: Nuvia Barney, DEMETRI, RVT 11/29/247 Date _ Catalino Sidhu MD CC: Dr. Jose Hdz MD; Dr. 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 [facility] Work Phone: 12 Lead EKGon 11-07-2024 12 Lead EKG Normal [facility] Absolute lymphocyte countOrd ered By: Charlie High on 11-07-2024 Lymphocytes Auto (Unsp spec) [#/Vol] 1.60 10*3/uL 0.83-4.51 [facility] Absolute neutrophil countOrd ered By: Charlie High on 11-07-2024 Neutrophils (Bld) [#/Vol] 7.2 10*3/uL 2.0-7.7 [facility] Anion gap in Serum or Plasma Ordered By: Charlie High on 11-07-2024 Anion gap [Moles/Vol] 15 mmol/L 5-15 [place] Automated lymphocyte count a s percentage of total leukocytesOrdered By: Charlie High on 11-07-2024 Lymphocytes/100 WBC Auto (Unsp spec) 16.0 % Low 19-41 [facility] BUN/creatinine ratioOrdered By: Charlie High on 11-07-2024 Urea nitrogen/Creatinine [Mass ratio] 26.9 mg/mg High 10-20 [facility] Basic Metabolic Profile (BMP )on 11-07-2024 BUN/CRE 26.9 RATIO High - [facility] Comment on above: Performed By: #### L 100.0100, L500.2500 ####[facility] [address] [place], [address] Calcium [Mass/Vol] 9.9 mg/dL Normal 7.6-11.0 [facility] Comment on above: Performed By: #### L 100.0100, L500.2500 ####[facility] [address] [place], [address] Chloride [Moles/Vol] 98 mmol/L Normal 98-108 [facility] Comment on above: Performed By: #### L 100.0100, L500.2500 ####[facility] [address] [place], [address] CO2 [Moles/Vol] 24.1 mmol/L Normal 21.0-32.0 [facility] Comment on above: Performed By: #### L 100.0100, L500.2500 ####[facility] [address] [place], [address] Creatinine [Mass/Vol] 0.67 mg/dL Low 0.70-1.20 [facility] Comment on above: Performed By: #### L 100.0100, L500.2500 ####[facility] [address] [place], [address] ECRCL 43.30 ml/min Low 50-250 [facility] Comment on above: Performed By: #### L 100.0100, L500.2500 ####[facility] [address] [place], [address] GAP 15 Normal 5-15 [facility] Comment on above: Performed By: #### L 100.0100, L500.2500 ####[facility] [address] [place], [address] GFR/1.73 sq M.predicted among non-blacks MDRD (S/P/Bld) [Vol rate/Area] 86 mL/min/{1.73_m2} Normal >60 [facility] Comment on above: Result Comment: mL/m in/1.73m2 CKD-EPI Creatinine Equation (2020) Performed By: #### L 100.0100, L500.2500 ####[facility] [address] [place], [address] Glucose [Mass/Vol] 107 mg/dL High 70-99 [facility] Comment on above: Performed By: #### L 100.0100, L500.2500 ####[facility] [address] [place], [address] Potassium [Moles/Vol] 3.3 mmol/L Normal 3.3-5.1 [place] Comment on above: Performed By: #### L 100.0100, L500.2500 ####[facility] [address] [place], [address] Sodium [Moles/Vol] 138 mmol/L Normal 133-145 [facility] Comment on above: Performed By: #### L 100.0100, L500.2500 ####[facility] [address] [place], [address] Urea nitrogen [Mass/Vol] 18 mg/dL Normal 4-19 [facility] Comment on above: Performed By: #### L 100.0100, L500.2500 ####[facility] [address] [place], [address] Basophil percentageOrdered B y: Charlie High on 11-07-2024 Basophils/100 WBC (Bld) 0.8 % 0-1 [facility] Bilirubin Test strip Ql (U)O rdered By: Charlie High on 11-07-2024 Bilirubin Ql (U) Negative Negative [facility] Bilirubin directOrdered By: Charlie High on 11-07-2024 Bilirubin.direct [Mass/Vol] 0.18 mg/dL 0.00-0.30 [facility] Bilirubin, totalOrdered By: Charlie High on 11-07-2024 Bilirubin [Mass/Vol] 0.47 mg/dL 0.00-1.30 [facility] Brain/Head without Contrasto n 11-07-2024 Brain/Head without Contrast Normal [facility] CBC W/Diff, Automatedon 10-17 Absolute Lymph 1.60 X10 3/uL Normal 0.83-4.51 [facility] Comment on above: Performed By: #### L 100.0100, L500.2500 ####[facility] [address] [place], [address] Absolute Neut 7.2 X10 3/uL Normal 2.0-7.7 [facility] Comment on above: Performed By: #### L 100.0100, L500.2500 ####[facility] [address] [place], [address] Basophils/100 WBC (Bld) 0.8 % Normal 0-1 [facility] Comment on above: Performed By: #### L 100.0100, L500.2500 ####[facility] [address] [place], [address] Eosinophils/100 WBC (Bld) 1.7 % Normal 0-5 [facility] Comment on above: Performed By: #### L 100.0100, L500.2500 ####[facility] [address] [place], [address] Erythrocyte distribution width (RBC) [Ratio] 14.8 % High 11.6-14.6 [facility] Comment on above: Performed By: #### L 100.0100, L500.2500 ####[facility] [address] [place], [address] Hematocrit (Bld) [Volume fraction] 34.5 % Low 37-47 [facility] Comment on above: Performed By: #### L 100.0100, L500.2500 ####[facility] [address] [place], [address] Hemoglobin (Bld) [Mass/Vol] 11.5 g/dL Low 12.0-15.0 [facility] Comment on above: Performed By: #### L 100.0100, L500.2500 ####[facility] [address] [place], [address] IG% 0.400 Normal 0.0-0.9 [facility] Comment on above: Result Comment: IG% - Immature Granulocytes (promyelocytes, myelocytes andmetamyelocytes) > 1% indicates that a LEFT SHIFT is Present. Performed By: #### L 100.0100, L500.2500 ####[facility] [address] [place], [address] Lymphocytes/100 WBC (Bld) 16.0 % Low 19-41 [facility] Comment on above: Performed By: #### L 100.0100, L500.2500 ####[facility] [address] [place], [address] MCH (RBC) [Entitic mass] 28.0 pg Normal 27.0-32.0 [facility] Comment on above: Performed By: #### L 100.0100, L500.2500 ####[facility] [address] [place], [address] MCHC (RBC) [Mass/Vol] 33.3 g/dL Normal 32-36 [place] Comment on above: Performed By: #### L 100.0100, L500.2500 ####[facility] [address] [place], [address] MCV (RBC) [Entitic vol] 83.9 fL Normal 81-99 [facility] Comment on above: Performed By: #### L 100.0100, L500.2500 ####[facility] [address] [place], [address] Monocytes/100 WBC (Bld) 9.3 % Normal 0-10 [facility] Comment on above: Performed By: #### L 100.0100, L500.2500 ####[facility] [address] [place], [address] Neutrophils/100 WBC (Bld) 71.8 % High 47-70 [facility] Comment on above: Performed By: #### L 100.0100, L500.2500 ####[facility] [address] [place], [address] Nucleated RBC (Bld) [#/Vol] 0 10*3/uL Normal 0-5 [facility] Comment on above: Performed By: #### L 100.0100, L500.2500 ####[facility] [address] [place], [address] Platelet mean volume (Bld) [Entitic vol] 9.7 fL Normal 6.2-12.0 [facility] Comment on above: Performed By: #### L 100.0100, L500.2500 ####[facility] [address] [place], [address] Platelets (Bld) [#/Vol] 392 10*3/uL Normal 150-450 [facility] Comment on above: Performed By: #### L 100.0100, L500.2500 ####[facility] [address] [place], [address] RBC (Bld) [#/Vol] 4.11 10*6/uL Low 4.2-5.4 [facility] Comment on above: Performed By: #### L 100.0100, L500.2500 ####[facility] [address] [place], [address] RDW SD 45.0 fl High 35.1-43.9 [facility] Comment on above: Performed By: #### L 100.0100, L500.2500 ####[facility] [address] [place], [address] WBC (Bld) [#/Vol] 10.0 10*3/uL Normal 4.4-11.0 [facility] Comment on above: Performed By: #### L 100.0100, L500.2500 ####[facility] [address] [place], [address] Carbon dioxide, total [Moles /volume] in Central venous bloodOrdered By: Charlie High on 11-07-2024 CO2 [Moles/Vol] 24.1 mmol/L 21.0-32.0 [facility] Chest 1 View (Portable)on Chest 1 View (Portable) Normal [facility] Chloride assayOrdered By: Marlni High on 11-07-2024 Chloride [Moles/Vol] 98 mmol/L 98-108 [facility] Emergency Department Summary on 11-07-2024 Emergency Department Summary Normal [facility] Eosinophil percentageOrdered By: Charlie High on 11-07-2024 Eosinophils/100 WBC (Bld) 1.7 % 0-5 [facility] Erythrocyte distribution wid th ratioOrdered By: Charlie High on 11-07-2024 Erythrocyte distribution width (RBC) [Ratio] 14.8 % High 11.6-14.6 [facility] Erythrocyte distribution wid th standard deviationOrdered By: Charlie High on 11-07-2024 Erythrocyte distribution width (RBC) [Ratio] 45.0 fl High 35.1-43.9 [facility] Glomerular filtration rate ( GFR) estimation/1.73 sq m using serum, plasma, or whole bOrdered By: Charlie High on 11-07-2024 GFR/1.73 sq M.predicted among non-blacks MDRD (S/P/Bld) [Vol rate/Area] 86 mL/min/{1.73_m2} >60 [facility] Comment on above: mL/min/1.73m2 CKD-EP I Creatinine Equation (2020) Hematocrit Auto (Bld) [Volum e fraction]Ordered By: Charlie High on 11-07-2024 Hematocrit (Bld) [Volume fraction] 34.5 % Low 37-47 [facility] Hemoglobin measurementOrdere d By: Charlie High on 11-07-2024 Hemoglobin (Bld) [Mass/Vol] 11.5 g/dL Low 12.0-15.0 [facility] Immature granulocytes/100 WB C Auto (Bld)Ordered By: Charlie High on 11-07-2024 Immature granulocytes/100 WBC (Bld) 0.400 % 0.0-0.9 [facility] Comment on above: IG% - Immature Granu locytes (promyelocytes, myelocytes and metamyelocytes) > 1% indicates that a LEFT SHIFT is Present. International normalized rat io (INR) calculationOrdered By: Charlie High on 11-07-2024 INR Coag (Bld) [Relative time] 1.0 {INR} [facility] Ketones Test strip Ql (U)Ord ered By: Charlie High on 11-07-2024 Ketones Ql (U) Negative Negative [facility] L501.4021on 11-07-2024 Trop T High Sen 13 ng/L Normal <=14 [facility] Comment on above: Performed By: #### L 503.7505, L501.4021, L500.3400 ####[facility] [address] [place], [address] L503.7505on 11-07-2024 Natriuretic peptide B (Bld) [Mass/Vol] 296 pg/mL Normal <=1800 [facility] Comment on above: Result Comment: Hear t Failure Unlikely: < 300 pg/mLHeart Failure Likely< 50 Years: > 450 pg/mL50-75 Years: > 900 pg/mL>75 Years: > 1800 pg/mL Performed By: #### L 503.7505, L501.4021, L500.3400 ####[facility] [address] [place], [address] Laboratory - Chemistry and C hemistry - challengeOrdered By: Charlie High on 11-07-2024 AST [Catalytic activity/Vol] 24 U/L <32 [facility] Liver Profileon 11-07-2024 Albumin [Mass/Vol] 4.4 g/dL Normal 3.4-4.8 [facility] Comment on above: Performed By: #### L 503.7505, L501.4021, L500.3400 ####[facility] [address] [place], [address] ALK PHOS 75 U/L Normal 35-104 [facility] Comment on above: Performed By: #### L 503.7505, L501.4021, L500.3400 ####[facility] [address] [place], [address] ALT [Catalytic activity/Vol] 17 U/L Normal <=34 [facility] Comment on above: Performed By: #### L 503.7505, L501.4021, L500.3400 ####[facility] [address] [place], [address] AST [Catalytic activity/Vol] 24 U/L Normal <=31 [facility] Comment on above: Performed By: #### L 503.7505, L501.4021, L500.3400 ####[facility] [address] [place], [address] Bilirubin [Mass/Vol] 0.47 mg/dL Normal 0.00-1.30 [facility] Comment on above: Performed By: #### L 503.7505, L501.4021, L500.3400 ####[facility] [address] [place], [address] Bilirubin.direct [Mass/Vol] 0.18 mg/dL Normal 0.00-0.30 [facility] Comment on above: Performed By: #### L 503.7505, L501.4021, L500.3400 ####[facility] [address] [place], [address] Globulin (S) [Mass/Vol] 3.3 g/dL Normal 2.2-4.2 [facility] Comment on above: Performed By: #### L 503.7505, L501.4021, L500.3400 ####[facility] [address] [place], [address] T PROT 7.7 g/dL Normal 5.9-8.4 [facility] Comment on above: Performed By: #### L 503.7505, L501.4021, L500.3400 ####[facility] [address] [place], [address] MCV (mean corpuscular volume ) determinationOrdered By: Charlie High on 11-07-2024 MCV (RBC) [Entitic vol] 83.9 fL 81-99 [facility] Mean corpuscular hemoglobin (MCH) determinationOrdered By: Charlie High on 11-07-2024 MCH (RBC) [Entitic mass] 28.0 pg 27.0-32.0 [facility] Mean corpuscular hemoglobin concentration (MCHC) determinationOrdered By: Charlie High on 11-07-2024 MCHC (RBC) [Mass/Vol] 33.3 g/dL 32-36 [place] Mean platelet volume determi nationOrdered By: Charlie High on 11-07-2024 Platelet mean volume (Bld) [Entitic vol] 9.7 fL 6.2-12.0 [facility] Microscopic analysis of urin e for red blood cells (RBC)Ordered By: Charlie High on 11-07-2024 Microscopic analysis of urine for red blood cells (RBC) 0-5 SEEN /hpf 0-5 [facility] Monocyte percentageOrdered B y: Charlie High on 11-07-2024 Monocytes/100 WBC (Bld) 9.3 % 0-10 [facility] Mucus LM Ql (Urine sed)Order ed By: Charlie High on 11-07-2024 Mucus Ql (Urine sed) 0 SEEN /hpf [place] Natriuretic peptide.B prohor erica N-Terminal [Mass/volume] in Serum or PlasmaOrdered By: Charlie High on 11-07-2024 Natriuretic peptide.B prohormone N-Terminal [Mass/Vol] 296 pg/mL <1800 [facility] Comment on above: Heart Failure Unlike ly: < 300 pg/mLHeart Failure Likely< 50 Years: > 450 pg/mL50-75 Years: > 900 pg/mL>75 Years: > 1800 pg/mL Neutrophil percentageOrdered By: Charlie High on 11-07-2024 Neutrophils/100 WBC (Bld) 71.8 % High 47-70 [facility] Nitrite Test strip Ql (U)Ord ered By: Charlie High on 11-07-2024 Nitrite Ql (U) Negative Negative [facility] Nucleated red blood cell per centageOrdered By: Charlie High on 11-07-2024 Nucleated RBC/100 WBC (Bld) [Ratio] 0 % 0-5 [facility] Platelet countOrdered By: Marlin High on 11-07-2024 Platelets (Bld) [#/Vol] 392 10*3/uL 150-450 [facility] Potassium measurement (mass/ volume)Ordered By: Charlie High on 11-07-2024 Potassium (Unsp spec) [Mass/Vol] 3.3 mmol/L 3.3-5.1 [facility] Protein Test strip Ql (U)Ord ered By: Charlie High on 11-07-2024 Protein Ql (U) 15 mg/dl High Negative [facility] Prothrombin Time w/INRon INR Coag (PPP) [Relative time] 1.0 {INR} Normal [facility] Comment on above: Performed By: #### L 300.3900 ####[facility] [address] [place], [address] PT Coag (PPP) [Time] 13.5 s Normal 11.7-14.9 [facility] Comment on above: Performed By: #### L 300.3900 ####[facility] [address] [place], [address] Prothrombin timeOrdered By: Charlie High on 11-07-2024 PT Coag (PPP) [Time] 13.5 s 11.7-14.9 [facility] RBC Auto (Bld) [#/Vol]Ordere d By: Charlie High on 11-07-2024 RBC (Bld) [#/Vol] 4.11 10*6/uL Low 4.2-5.4 [facility] Serum creatinine measurement (mass/volume)Ordered By: Charlie High on 11-07-2024 Creatinine [Mass/Vol] 0.67 mg/dL Low 0.70-1.20 [place] Serum globulin measurementOr dered By: Charlie High on 11-07-2024 Globulin (S) [Mass/Vol] 3.3 g/dL 2.2-4.2 [facility] Serum glucose measurement (m ass/volume)Ordered By: Charlie High on 11-07-2024 Glucose [Mass/Vol] 107 mg/dL High 70-99 [facility] Serum or plasma alanine canada otransferase (ALT) measurementOrdered By: Charlie High on 11-07-2024 ALT [Catalytic activity/Vol] 17 U/L <35 [facility] Serum or plasma albumin july urement (mass/volume)Ordered By: Charlie High on 11-07-2024 Albumin [Mass/Vol] 4.4 g/dL 3.4-4.8 [facility] Serum or plasma alkaline kaela sphatase measurementOrdered By: Charlie High on 11-07-2024 ALP [Catalytic activity/Vol] 75 U/L 35-104 [facility] Serum or plasma calcium july urement (mass/volume)Ordered By: Charlie High on 11-07-2024 Calcium [Mass/Vol] 9.9 mg/dL 7.6-11.0 [facility] Serum or plasma urea nitroge n measurement (mass/volume)Ordered By: Charlie High on 11-07-2024 Urea nitrogen [Mass/Vol] 18 mg/dL 4-19 [facility] Sodium levelOrdered By: Alli High on 11-07-2024 Sodium [Moles/Vol] 138 mmol/L 133-145 [facility] Squamous epithelial cells de tection in urine sediment by light microscopyOrdered By: Charlie High on 11-07-2024 Epithelial cells.squamous LM Ql (Urine sed) 5-10 SEEN /hpf 5-10 [facility] Total proteinOrdered By: Beau High on 11-07-2024 Protein [Mass/Vol] 7.7 g/dL 5.9-8.4 [facility] Troponin T HS 2 HRon 025 Trop T High Sen 13 ng/L Normal <=14 [facility] Comment on above: Performed By: #### L 499.0042 ####[facility] [address] [place], [place], [id number] Troponin T HS 4 HRon 025 Trop T High Sen Normal <=14 [facility] Comment on above: Result Comment: Canc elled via OM: Order cancelled - Patient discharged Performed By: #### L 499.0043 ####[facility] [address] [place], [place], [id number] Troponin T.cardiac [Mass/vol ume] in Serum or Plasma by High sensitivity methodOrdered By: Charlie High on 11-07-2024 Troponin T.cardiac High sensitivity method [Mass/Vol] 13 ng/L <14 [facility] Troponin T.cardiac High sensitivity method [Mass/Vol] 13 ng/L <14 [facility] Urinalysis, Completeon 11-07 EPI,SQUAMOUS 5-10 SEEN Normal 5-10 [facility] Comment on above: Order Comment: CLEAN CATCH Performed By: #### L 400.0001 ####[facility] [address] [place], [address] RBC 0-5 SEEN Normal 0-5 [facility] Comment on above: Order Comment: CLEAN CATCH Performed By: #### L 400.0001 ####[facility] [address] [place], [address] WBC 0-5 SEEN Normal 0-5 [facility] Comment on above: Order Comment: CLEAN CATCH Performed By: #### L 400.0001 ####[facility] [address] [place], [address] BACTERIA 0 SEEN Normal None Seen [facility] Comment on above: Order Comment: CLEAN CATCH Performed By: #### L 400.0001 ####[facility] [address] [place], [address] Mucus Ql (Urine sed) 0 SEEN Normal [facility] Comment on above: Order Comment: CLEAN CATCH Performed By: #### L 400.0001 ####[facility] [address] [place], [address] Urine clarityOrdered By: Beau High on 11-07-2024 Clarity (U) Clear Clear [facility] Urine color determinationOrd ered By: Charlie High on 11-07-2024 Color (U) Straw Yellow [facility] Urine glucose detectionOrder ed By: Charlie High on 11-07-2024 Glucose Ql (U) Normal mg/dl Normal [facility] Urine leukocyte esterase det ection by dipstickOrdered By: Charlie High on 11-07-2024 Leukocyte esterase Test strip Ql (U) 25 /ul High Negative [facility] Urine pHOrdered By: Charlie fitch on 11-07-2024 pH (U) 6.0 [pH] 5.0 - 8.0 [facility] Urine sediment bacteria coun t by microscopy (number/high power field)Ordered By: Charlie High on 11-07-2024 Bacteria LM.HPF (Urine sed) [#/Area] 0 /[HPF] None Seen [facility] Urine specific gravity measu rementOrdered By: Charlie High on 11-07-2024 Specific gravity (U) [Rel density] 1.015 1.002-1.030 [facility] Urine urobilinogen measureme ntOrdered By: Charlie High on 11-07-2024 Urobilinogen Ql (U) Normal mg/dl Normal [place] White blood cell (WBC) count Ordered By: Charlie High on 11-07-2024 WBC (Bld) [#/Vol] 10.0 10*3/uL 4.4-11.0 [facility] White blood cell countOrdere d By: Charlie High on 11-07-2024 White blood cell count 0-5 SEEN /hpf 0-5 [facility] HH, Hemoglobin AND Hematocri ton 11-06-2024 Hematocrit (Bld) [Volume fraction] 31.9 % Low 37-47 [facility] Comment on above: Order Comment: Order Date: 11/06/24Order Info: [id number] - HH Performed By: #### L 100.0600 ####[facility] [address] [place], [place], [phone] Hemoglobin (Bld) [Mass/Vol] 10.5 g/dL Low 12.0-15.0 [facility] Comment on above: Order Comment: Order Date: 11/06/24Order Info: [id number] - HH Performed By: #### L 100.0600 ####[facility] [address] [place], [address] Hematocrit Auto (Bld) [Volum e fraction]Ordered By: Jose Hdz on 11-06-2024 Hematocrit (Bld) [Volume fraction] 31.9 % Low 37-47 [facility] Hemoglobin measurementOrdere d By: Jose Hdz on 11-06-2024 Hemoglobin (Bld) [Mass/Vol] 10.5 g/dL Low 12.0-15.0 [facility] Absolute lymphocyte countOrd ered By: Jose Tillman on 10-23-2024 Lymphocytes Auto (Unsp spec) [#/Vol] 0.98 10*3/uL 0.83-4.51 [facility] Absolute neutrophil countOrd ered By: Jose Tillman on 10-23-2024 Neutrophils (Bld) [#/Vol] 4.3 10*3/uL 2.0-7.7 [facility] Anion gap in Serum or Plasma Ordered By: Jose Tillman on 10-23-2024 Anion gap [Moles/Vol] 11 mmol/L 5-15 [place] Automated lymphocyte count a s percentage of total leukocytesOrdered By: Jose Tillman on 10-23-2024 Lymphocytes/100 WBC Auto (Unsp spec) 14.9 % Low 19-41 [facility] BUN/creatinine ratioOrdered By: Jose Tillman on 10-23-2024 Urea nitrogen/Creatinine [Mass ratio] 14.5 mg/mg 10-20 [facility] Basic Metabolic Profile (BMP )on 10-23-2024 BUN/CRE 14.5 RATIO Normal 10-20 [facility] Comment on above: Performed By: #### L 100.0100, L500.2500 ####[facility] [address] [place], [address] Calcium [Mass/Vol] 9.1 mg/dL Normal 7.6-11.0 [facility] Comment on above: Performed By: #### L 100.0100, L500.2500 ####[facility] [address] [place], [address] Chloride [Moles/Vol] 99 mmol/L Normal 98-108 [facility] Comment on above: Performed By: #### L 100.0100, L500.2500 ####[facility] [address] [place], [address] CO2 [Moles/Vol] 21.1 mmol/L Normal 21.0-32.0 [facility] Comment on above: Performed By: #### L 100.0100, L500.2500 ####[facility] [address] [place], [address] Creatinine [Mass/Vol] 0.73 mg/dL Normal 0.70-1.20 [place] Comment on above: Performed By: #### L 100.0100, L500.2500 ####[facility] [address] [place], [address] ECRCL 43.30 ml/min Low 50-250 [facility] Comment on above: Performed By: #### L 100.0100, L500.2500 ####[facility] [address] [place], [address] GAP 11 Normal 5-15 [facility] Comment on above: Performed By: #### L 100.0100, L500.2500 ####[facility] [address] [place], [address] GFR/1.73 sq M.predicted among non-blacks MDRD (S/P/Bld) [Vol rate/Area] 81 mL/min/{1.73_m2} Normal >60 [facility] Comment on above: Result Comment: mL/m in/1.73m2 CKD-EPI Creatinine Equation (2020) Performed By: #### L 100.0100, L500.2500 ####[facility] [address] [place], [address] Glucose [Mass/Vol] 100 mg/dL High 70-99 [facility] Comment on above: Performed By: #### L 100.0100, L500.2500 ####[facility] [address] [place], [address] Potassium [Moles/Vol] 4.0 mmol/L Normal 3.3-5.1 [place] Comment on above: Performed By: #### L 100.0100, L500.2500 ####[facility] [address] [place], [address] Sodium [Moles/Vol] 131 mmol/L Low 133-145 [facility] Comment on above: Performed By: #### L 100.0100, L500.2500 ####[facility] [address] [place], [address] Urea nitrogen [Mass/Vol] 11 mg/dL Normal 4-19 [facility] Comment on above: Performed By: #### L 100.0100, L500.2500 ####[facility] [address] [place], [address] Basophil percentageOrdered B y: Jose Tillman on 10-23-2024 Basophils/100 WBC (Bld) 0.5 % 0-1 [facility] CBC W/Diff, Automatedon Absolute Lymph 0.98 X10 3/uL Normal 0.83-4.51 [facility] Comment on above: Performed By: #### L 100.0100, L500.2500 ####[facility] [address] [place], [address] Absolute Neut 4.3 X10 3/uL Normal 2.0-7.7 [facility] Comment on above: Performed By: #### L 100.0100, L500.2500 ####[facility] [address] [place], [address] Basophils/100 WBC (Bld) 0.5 % Normal 0-1 [facility] Comment on above: Performed By: #### L 100.0100, L500.2500 ####[facility] [address] [place], [address] Eosinophils/100 WBC (Bld) 3.7 % Normal 0-5 [facility] Comment on above: Performed By: #### L 100.0100, L500.2500 ####[facility] [address] [place], [address] Erythrocyte distribution width (RBC) [Ratio] 15.2 % High 11.6-14.6 [facility] Comment on above: Performed By: #### L 100.0100, L500.2500 ####[facility] [address] [place], [address] Hematocrit (Bld) [Volume fraction] 33.3 % Low 37-47 [facility] Comment on above: Performed By: #### L 100.0100, L500.2500 ####[facility] [address] [place], [address] Hemoglobin (Bld) [Mass/Vol] 11.3 g/dL Low 12.0-15.0 [facility] Comment on above: Performed By: #### L 100.0100, L500.2500 ####[facility] [address] [place], [address] IG% 0.300 Normal 0.0-0.9 [facility] Comment on above: Result Comment: IG% - Immature Granulocytes (promyelocytes, myelocytes andmetamyelocytes) > 1% indicates that a LEFT SHIFT is Present. Performed By: #### L 100.0100, L500.2500 ####[facility] [address] [place], [address] Lymphocytes/100 WBC (Bld) 14.9 % Low 19-41 [facility] Comment on above: Performed By: #### L 100.0100, L500.2500 ####[facility] [address] [place], [address] MCH (RBC) [Entitic mass] 29.8 pg Normal 27.0-32.0 [facility] Comment on above: Performed By: #### L 100.0100, L500.2500 ####[facility] [address] [place], [address] MCHC (RBC) [Mass/Vol] 33.9 g/dL Normal 32-36 [place] Comment on above: Performed By: #### L 100.0100, L500.2500 ####[facility] [address] [place], [address] MCV (RBC) [Entitic vol] 87.9 fL Normal 81-99 [facility] Comment on above: Performed By: #### L 100.0100, L500.2500 ####[facility] [address] [place], [address] Monocytes/100 WBC (Bld) 15.7 % High 0-10 [facility] Comment on above: Performed By: #### L 100.0100, L500.2500 ####[facility] [address] [place], [address] Neutrophils/100 WBC (Bld) 64.9 % Normal 47-70 [facility] Comment on above: Performed By: #### L 100.0100, L500.2500 ####[facility] [address] [place], [address] Nucleated RBC (Bld) [#/Vol] 0 10*3/uL Normal 0-5 [facility] Comment on above: Performed By: #### L 100.0100, L500.2500 ####[facility] [address] [place], [address] Platelet mean volume (Bld) [Entitic vol] 9.5 fL Normal 6.2-12.0 [facility] Comment on above: Performed By: #### L 100.0100, L500.2500 ####[facility] [address] [place], [address] Platelets (Bld) [#/Vol] 297 10*3/uL Normal 150-450 [facility] Comment on above: Performed By: #### L 100.0100, L500.2500 ####[facility] [address] [place], [address] RBC (Bld) [#/Vol] 3.79 10*6/uL Low 4.2-5.4 [facility] Comment on above: Performed By: #### L 100.0100, L500.2500 ####[facility] [address] [place], [address] RDW SD 47.8 fl High 35.1-43.9 [facility] Comment on above: Performed By: #### L 100.0100, L500.2500 ####[facility] [address] [place], [address] WBC (Bld) [#/Vol] 6.6 10*3/uL Normal 4.4-11.0 [facility] Comment on above: Performed By: #### L 100.0100, L500.2500 ####[facility] [address] [place], [address] Carbon dioxide, total [Moles /volume] in Central venous bloodOrdered By: Jose Tillman on 10-23-2024 CO2 [Moles/Vol] 21.1 mmol/L 21.0-32.0 [facility] Chloride assayOrdered By: Amol Tillman on 10-23-2024 Chloride [Moles/Vol] 99 mmol/L 98-108 [facility] Eosinophil percentageOrdered By: Jose Tillman on 10-23-2024 Eosinophils/100 WBC (Bld) 3.7 % 0-5 [facility] Erythrocyte distribution wid th ratioOrdered By: Jose Tillman on 10-23-2024 Erythrocyte distribution width (RBC) [Ratio] 15.2 % High 11.6-14.6 [facility] Erythrocyte distribution wid th standard deviationOrdered By: Jose Tillman on 10-23-2024 Erythrocyte distribution width (RBC) [Ratio] 47.8 fl High 35.1-43.9 [facility] Glomerular filtration rate ( GFR) estimation/1.73 sq m using serum, plasma, or whole bOrdered By: Jose Tillman on 10-23-2024 GFR/1.73 sq M.predicted among non-blacks MDRD (S/P/Bld) [Vol rate/Area] 81 mL/min/{1.73_m2} >60 [facility] Comment on above: mL/min/1.73m2 CKD-EP I Creatinine Equation (2020) Hematocrit Auto (Bld) [Volum e fraction]Ordered By: Jose Tillman on 10-23-2024 Hematocrit (Bld) [Volume fraction] 33.3 % Low 37-47 [facility] Hemoglobin measurementOrdere d By: Jose Tillman on 10-23-2024 Hemoglobin (Bld) [Mass/Vol] 11.3 g/dL Low 12.0-15.0 [facility] Immature granulocytes/100 WB C Auto (Bld)Ordered By: Jose Tillman on 10-23-2024 Immature granulocytes/100 WBC (Bld) 0.300 % 0.0-0.9 [facility] Comment on above: IG% - Immature Granu locytes (promyelocytes, myelocytes and metamyelocytes) > 1% indicates that a LEFT SHIFT is Present. MCV (mean corpuscular volume ) determinationOrdered By: Jose Tillman on 10-23-2024 MCV (RBC) [Entitic vol] 87.9 fL 81-99 [facility] Mean corpuscular hemoglobin (MCH) determinationOrdered By: Jose Tillman on 10-23-2024 MCH (RBC) [Entitic mass] 29.8 pg 27.0-32.0 [facility] Mean corpuscular hemoglobin concentration (MCHC) determinationOrdered By: Jose Tillman on 10-23-2024 MCHC (RBC) [Mass/Vol] 33.9 g/dL 32-36 [place] Mean platelet volume determi nationOrdered By: Jose Tillman on 10-23-2024 Platelet mean volume (Bld) [Entitic vol] 9.5 fL 6.2-12.0 [facility] Monocyte percentageOrdered B y: Jose Tillman on 10-23-2024 Monocytes/100 WBC (Bld) 15.7 % High 0-10 [facility] Neutrophil percentageOrdered By: Jose Tillman on 10-23-2024 Neutrophils/100 WBC (Bld) 64.9 % 47-70 [facility] Nucleated red blood cell per centageOrdered By: Jose Tillman on 10-23-2024 Nucleated RBC/100 WBC (Bld) [Ratio] 0 % 0-5 [facility] Platelet countOrdered By: Amol Tillman on 10-23-2024 Platelets (Bld) [#/Vol] 297 10*3/uL 150-450 [facility] Potassium measurement (mass/ volume)Ordered By: Jose Tillman on 10-23-2024 Potassium (Unsp spec) [Mass/Vol] 4.0 mmol/L 3.3-5.1 [facility] RBC Auto (Bld) [#/Vol]Ordere d By: Jose Tillman on 10-23-2024 RBC (Bld) [#/Vol] 3.79 10*6/uL Low 4.2-5.4 [facility] Serum creatinine measurement (mass/volume)Ordered By: Jose Tillman on 10-23-2024 Creatinine [Mass/Vol] 0.73 mg/dL 0.70-1.20 [place] Serum glucose measurement (m ass/volume)Ordered By: Jose Tillman on 10-23-2024 Glucose [Mass/Vol] 100 mg/dL High 70-99 [facility] Serum or plasma calcium july urement (mass/volume)Ordered By: Jose Tillman on 10-23-2024 Calcium [Mass/Vol] 9.1 mg/dL 7.6-11.0 [facility] Serum or plasma urea nitroge n measurement (mass/volume)Ordered By: Jose Tillman on 10-23-2024 Urea nitrogen [Mass/Vol] 11 mg/dL 4-19 [facility] Sodium levelOrdered By: Jose Tillman on 10-23-2024 Sodium [Moles/Vol] 131 mmol/L Low 133-145 [facility] White blood cell (WBC) count Ordered By: Jose Tillman on 10-23-2024 WBC (Bld) [#/Vol] 6.6 10*3/uL 4.4-11.0 [facility] Basic Metabolic Profile (BMP )on 10-22-2024 BUN/CRE 8.1 RATIO Low 10-20 [facility] Comment on above: Performed By: #### L 100.0500, L500.2500 ####[facility] [address] [place], [address] Calcium [Mass/Vol] 9.2 mg/dL Normal 7.6-11.0 [facility] Comment on above: Performed By: #### L 100.0500, L500.2500 ####[facility] [address] [place], [address] Chloride [Moles/Vol] 100 mmol/L Normal 98-108 [facility] Comment on above: Performed By: #### L 100.0500, L500.2500 ####[facility] [address] [place], [address] CO2 [Moles/Vol] 22.2 mmol/L Normal 21.0-32.0 [facility] Comment on above: Performed By: #### L 100.0500, L500.2500 ####[facility] [address] [place], [address] Creatinine [Mass/Vol] 0.77 mg/dL Normal 0.70-1.20 [place] Comment on above: Performed By: #### L 100.0500, L500.2500 ####[facility] [address] [place], [address] ECRCL 43.30 ml/min Low 50-250 [facility] Comment on above: Performed By: #### L 100.0500, L500.2500 ####[facility] [address] [place], [address] GAP 11 Normal 5-15 [facility] Comment on above: Performed By: #### L 100.0500, L500.2500 ####[facility] [address] [place], [address] GFR/1.73 sq M.predicted among non-blacks MDRD (S/P/Bld) [Vol rate/Area] 76 mL/min/{1.73_m2} Normal >60 [facility] Comment on above: Result Comment: mL/m in/1.73m2 CKD-EPI Creatinine Equation (2020) Performed By: #### L 100.0500, L500.2500 ####[facility] [address] [place], [address] Glucose [Mass/Vol] 95 mg/dL Normal 70-99 [facility] Comment on above: Performed By: #### L 100.0500, L500.2500 ####[facility] [address] [place], [address] Potassium [Moles/Vol] 4.1 mmol/L Normal 3.3-5.1 [place] Comment on above: Performed By: #### L 100.0500, L500.2500 ####[facility] [address] [place], [address] Sodium [Moles/Vol] 133 mmol/L Normal 133-145 [facility] Comment on above: Performed By: #### L 100.0500, L500.2500 ####[facility] [address] [place], [address] Urea nitrogen [Mass/Vol] 6 mg/dL Normal 4-19 [facility] Comment on above: Performed By: #### L 100.0500, L500.2500 ####[facility] [address] [place], [address] CBC-Complete Blood Cnt No Di ffon 10-22-2024 Erythrocyte distribution width (RBC) [Ratio] 15.1 % High 11.6-14.6 [facility] Comment on above: Performed By: #### L 100.0500, L500.2500 ####[facility] [address] [place], [address] Hematocrit (Bld) [Volume fraction] 32.3 % Low 37-47 [facility] Comment on above: Performed By: #### L 100.0500, L500.2500 ####[facility] [address] [place], [address] Hemoglobin (Bld) [Mass/Vol] 11.0 g/dL Low 12.0-15.0 [facility] Comment on above: Performed By: #### L 100.0500, L500.2500 ####[facility] [address] [place], [address] MCH (RBC) [Entitic mass] 29.5 pg Normal 27.0-32.0 [facility] Comment on above: Performed By: #### L 100.0500, L500.2500 ####[facility] [address] [place], [address] MCHC (RBC) [Mass/Vol] 34.1 g/dL Normal 32-36 [place] Comment on above: Performed By: #### L 100.0500, L500.2500 ####[facility] [address] [place], [address] MCV (RBC) [Entitic vol] 86.6 fL Normal 81-99 [facility] Comment on above: Performed By: #### L 100.0500, L500.2500 ####[facility] [address] [place], [address] Platelet mean volume (Bld) [Entitic vol] 9.8 fL Normal 6.2-12.0 [facility] Comment on above: Performed By: #### L 100.0500, L500.2500 ####[facility] [address] [place], [address] Platelets (Bld) [#/Vol] 280 10*3/uL Normal 150-450 [facility] Comment on above: Performed By: #### L 100.0500, L500.2500 ####[facility] [address] [place], [address] RBC (Bld) [#/Vol] 3.73 10*6/uL Low 4.2-5.4 [facility] Comment on above: Performed By: #### L 100.0500, L500.2500 ####[facility] [address] [place], [address] RDW SD 46.2 fl High 35.1-43.9 [facility] Comment on above: Performed By: #### L 100.0500, L500.2500 ####[facility] [address] [place], [address] WBC (Bld) [#/Vol] 7.3 10*3/uL Normal 4.4-11.0 [facility] Comment on above: Performed By: #### L 100.0500, L500.2500 ####[facility] [address] [place], [address] Colonoscopy Reporton 025 Colonoscopy Report Normal [facility] MR/POSTOP.ANEon 10-22-2024 MR/POSTOP.ANE Normal [facility] MR/[id number] 10-22-2024 MR/POSTOPAN2 Normal [facility] Surgery Specimen Level Vern 10-22-2024 Surgery Specimen Level IV Normal [facility] Comment on above: Performed By: #### P SUIV ####[facility] [address] [place], [address] Basic Metabolic Profile (BMP )on 10-21-2024 BUN/CRE 9.3 RATIO Low 10-20 [facility] Comment on above: Performed By: #### L 501.5200, L100.0100, L501.2300, L500.2500 ####[facility] [address] [place], [address] Calcium [Mass/Vol] 8.8 mg/dL Normal 7.6-11.0 [facility] Comment on above: Performed By: #### L 501.5200, L100.0100, L501.2300, L500.2500 ####[facility] [address] [place], [address] Chloride [Moles/Vol] 103 mmol/L Normal 98-108 [facility] Comment on above: Performed By: #### L 501.5200, L100.0100, L501.2300, L500.2500 ####[facility] [address] [place], [address] CO2 [Moles/Vol] 21.6 mmol/L Normal 21.0-32.0 [facility] Comment on above: Performed By: #### L 501.5200, L100.0100, L501.2300, L500.2500 ####[facility] [address] [place], [address] Creatinine [Mass/Vol] 0.60 mg/dL Low 0.70-1.20 [place] Comment on above: Performed By: #### L 501.5200, L100.0100, L501.2300, L500.2500 ####[facility] [address] [place], [address] ECRCL 43.30 ml/min Low 50-250 [facility] Comment on above: Performed By: #### L 501.5200, L100.0100, L501.2300, L500.2500 ####[facility] [address] [place], [address] GAP 10 Normal 5-15 [facility] Comment on above: Performed By: #### L 501.5200, L100.0100, L501.2300, L500.2500 ####[facility] [address] [place], [address] GFR/1.73 sq M.predicted among non-blacks MDRD (S/P/Bld) [Vol rate/Area] 88 mL/min/{1.73_m2} Normal >60 [facility] Comment on above: Result Comment: mL/m in/1.73m2 CKD-EPI Creatinine Equation (2020) Performed By: #### L 501.5200, L100.0100, L501.2300, L500.2500 ####[facility] [address] [place], [address] Glucose [Mass/Vol] 87 mg/dL Normal 70-99 [facility] Comment on above: Performed By: #### L 501.5200, L100.0100, L501.2300, L500.2500 ####[facility] [address] [place], [address] Potassium [Moles/Vol] 3.9 mmol/L Normal 3.3-5.1 [place] Comment on above: Performed By: #### L 501.5200, L100.0100, L501.2300, L500.2500 ####[facility] [address] [place], [address] Sodium [Moles/Vol] 135 mmol/L Normal 133-145 [facility] Comment on above: Performed By: #### L 501.5200, L100.0100, L501.2300, L500.2500 ####[facility] [address] [place], [address] Urea nitrogen [Mass/Vol] 6 mg/dL Normal 4-19 [facility] Comment on above: Performed By: #### L 501.5200, L100.0100, L501.2300, L500.2500 ####[facility] [address] [place], [address] CBC W/Diff, Automatedon 07-0 6-2025 Absolute Lymph 0.86 X10 3/uL Normal 0.83-4.51 [facility] Comment on above: Performed By: #### L 501.5200, L100.0100, L501.2300, L500.2500 ####[facility] [address] [place], [address] Absolute Neut 5.1 X10 3/uL Normal 2.0-7.7 [facility] Comment on above: Performed By: #### L 501.5200, L100.0100, L501.2300, L500.2500 ####[facility] [address] [place], [address] Basophils/100 WBC (Bld) 0.7 % Normal 0-1 [facility] Comment on above: Performed By: #### L 501.5200, L100.0100, L501.2300, L500.2500 ####[facility] [address] [place], [address] Eosinophils/100 WBC (Bld) 2.4 % Normal 0-5 [facility] Comment on above: Performed By: #### L 501.5200, L100.0100, L501.2300, L500.2500 ####[facility] [address] [place], [address] Erythrocyte distribution width (RBC) [Ratio] 15.0 % High 11.6-14.6 [facility] Comment on above: Performed By: #### L 501.5200, L100.0100, L501.2300, L500.2500 ####[facility] [address] [place], [address] Hematocrit (Bld) [Volume fraction] 29.9 % Low 37-47 [facility] Comment on above: Performed By: #### L 501.5200, L100.0100, L501.2300, L500.2500 ####[facility] [address] [place], [address] Hemoglobin (Bld) [Mass/Vol] 10.2 g/dL Low 12.0-15.0 [facility] Comment on above: Performed By: #### L 501.5200, L100.0100, L501.2300, L500.2500 ####[facility] [address] [place], [address] IG% 0.400 Normal 0.0-0.9 [facility] Comment on above: Result Comment: IG% - Immature Granulocytes (promyelocytes, myelocytes andmetamyelocytes) > 1% indicates that a LEFT SHIFT is Present. Performed By: #### L 501.5200, L100.0100, L501.2300, L500.2500 ####[facility] [address] [place], [address] Lymphocytes/100 WBC (Bld) 12.0 % Low 19-41 [facility] Comment on above: Performed By: #### L 501.5200, L100.0100, L501.2300, L500.2500 ####[facility] [address] [place], [address] MCH (RBC) [Entitic mass] 29.3 pg Normal 27.0-32.0 [facility] Comment on above: Performed By: #### L 501.5200, L100.0100, L501.2300, L500.2500 ####[facility] [address] [place], [address] MCHC (RBC) [Mass/Vol] 34.1 g/dL Normal 32-36 [place] Comment on above: Performed By: #### L 501.5200, L100.0100, L501.2300, L500.2500 ####[facility] [address] [place], [address] MCV (RBC) [Entitic vol] 85.9 fL Normal 81-99 [facility] Comment on above: Performed By: #### L 501.5200, L100.0100, L501.2300, L500.2500 ####[facility] [address] [place], [address] Monocytes/100 WBC (Bld) 13.7 % High 0-10 [facility] Comment on above: Performed By: #### L 501.5200, L100.0100, L501.2300, L500.2500 ####[facility] [address] [place], [address] Neutrophils/100 WBC (Bld) 70.8 % High 47-70 [facility] Comment on above: Performed By: #### L 501.5200, L100.0100, L501.2300, L500.2500 ####[facility] [address] [place], [address] Nucleated RBC (Bld) [#/Vol] 0 10*3/uL Normal 0-5 [facility] Comment on above: Performed By: #### L 501.5200, L100.0100, L501.2300, L500.2500 ####[facility] [address] [place], [address] Platelet mean volume (Bld) [Entitic vol] 9.8 fL Normal 6.2-12.0 [facility] Comment on above: Performed By: #### L 501.5200, L100.0100, L501.2300, L500.2500 ####[facility] [address] [place], [address] Platelets (Bld) [#/Vol] 223 10*3/uL Normal 150-450 [facility] Comment on above: Performed By: #### L 501.5200, L100.0100, L501.2300, L500.2500 ####[facility] [address] [place], [address] RBC (Bld) [#/Vol] 3.48 10*6/uL Low 4.2-5.4 [facility] Comment on above: Performed By: #### L 501.5200, L100.0100, L501.2300, L500.2500 ####[facility] [address] [place], [address] RDW SD 45.7 fl High 35.1-43.9 [facility] Comment on above: Performed By: #### L 501.5200, L100.0100, L501.2300, L500.2500 ####[facility] [address] [place], [address] WBC (Bld) [#/Vol] 7.2 10*3/uL Normal 4.4-11.0 [facility] Comment on above: Performed By: #### L 501.5200, L100.0100, L501.2300, L500.2500 ####[facility] [address] [place], [address] Magnesiumon 10-21-2024 Magnesium [Mass/Vol] 2.0 mg/dL Normal 1.5-2.2 [facility] Comment on above: Performed By: #### L 501.5200, L100.0100, L501.2300, L500.2500 ####[facility] [address] [place], [address] Magnesium measurement (mass/ volume)Ordered By: Ramonita Boothe on 10-21-2024 Magnesium (Unsp spec) [Mass/Vol] 2.0 mg/dL 1.5-2.2 [facility] Phosphoruson 10-21-2024 Phosphate [Mass/Vol] 2.8 mg/dL Normal 2.7-4.5 [facility] Comment on above: Performed By: #### L 501.5200, L100.0100, L501.2300, L500.2500 ####[facility] [address] [place], [address] Basic Metabolic Profile (BMP )on 10-20-2024 BUN/CRE 10.4 RATIO Normal 10-20 [facility] Comment on above: Performed By: #### L 501.2300, L500.2500, L100.0500, L501.5200 ####[facility] [address] [place], [address] Calcium [Mass/Vol] 8.3 mg/dL Normal 7.6-11.0 [facility] Comment on above: Performed By: #### L 501.2300, L500.2500, L100.0500, L501.5200 ####[facility] [address] [place], [address] Chloride [Moles/Vol] 106 mmol/L Normal 98-108 [facility] Comment on above: Performed By: #### L 501.2300, L500.2500, L100.0500, L501.5200 ####[facility] [address] [place], [address] CO2 [Moles/Vol] 23.7 mmol/L Normal 21.0-32.0 [facility] Comment on above: Performed By: #### L 501.2300, L500.2500, L100.0500, L501.5200 ####[facility] [address] [place], [address] Creatinine [Mass/Vol] 0.58 mg/dL Low 0.70-1.20 [place] Comment on above: Performed By: #### L 501.2300, L500.2500, L100.0500, L501.5200 ####[facility] [address] [place], [address] ECRCL 43.30 ml/min Low 50-250 [facility] Comment on above: Performed By: #### L 501.2300, L500.2500, L100.0500, L501.5200 ####[facility] [address] [place], [address] GAP 8 Normal 5-15 [facility] Comment on above: Performed By: #### L 501.2300, L500.2500, L100.0500, L501.5200 ####[facility] [address] [place], [address] GFR/1.73 sq M.predicted among non-blacks MDRD (S/P/Bld) [Vol rate/Area] 89 mL/min/{1.73_m2} Normal >60 [facility] Comment on above: Result Comment: mL/m in/1.73m2 CKD-EPI Creatinine Equation (2020) Performed By: #### L 501.2300, L500.2500, L100.0500, L501.5200 ####[facility] [address] [place], [address] Glucose [Mass/Vol] 97 mg/dL Normal 70-99 [facility] Comment on above: Performed By: #### L 501.2300, L500.2500, L100.0500, L501.5200 ####[facility] [address] [place], [address] Potassium [Moles/Vol] 3.9 mmol/L Normal 3.3-5.1 [place] Comment on above: Performed By: #### L 501.2300, L500.2500, L100.0500, L501.5200 ####[facility] [address] [place], [address] Sodium [Moles/Vol] 137 mmol/L Normal 133-145 [facility] Comment on above: Performed By: #### L 501.2300, L500.2500, L100.0500, L501.5200 ####[facility] [address] [place], [address] Urea nitrogen [Mass/Vol] 6 mg/dL Normal 4-19 [facility] Comment on above: Performed By: #### L 501.2300, L500.2500, L100.0500, L501.5200 ####[facility] [address] [place], [address] CBC-Complete Blood Cnt No Di ffon 10-20-2024 Erythrocyte distribution width (RBC) [Ratio] 15.1 % High 11.6-14.6 [facility] Comment on above: Performed By: #### L 501.2300, L500.2500, L100.0500, L501.5200 ####[facility] [address] [place], [address] Hematocrit (Bld) [Volume fraction] 28.0 % Low 37-47 [facility] Comment on above: Performed By: #### L 501.2300, L500.2500, L100.0500, L501.5200 ####[facility] [address] [place], [address] Hemoglobin (Bld) [Mass/Vol] 9.3 g/dL Low 12.0-15.0 [facility] Comment on above: Performed By: #### L 501.2300, L500.2500, L100.0500, L501.5200 ####[facility] [address] [place], [address] MCH (RBC) [Entitic mass] 28.9 pg Normal 27.0-32.0 [facility] Comment on above: Performed By: #### L 501.2300, L500.2500, L100.0500, L501.5200 ####[facility] [address] [place], [address] MCHC (RBC) [Mass/Vol] 33.2 g/dL Normal 32-36 [place] Comment on above: Performed By: #### L 501.2300, L500.2500, L100.0500, L501.5200 ####[facility] [address] [place], [address] MCV (RBC) [Entitic vol] 87.0 fL Normal 81-99 [facility] Comment on above: Performed By: #### L 501.2300, L500.2500, L100.0500, L501.5200 ####[facility] [address] [place], [address] Platelet mean volume (Bld) [Entitic vol] 10.0 fL Normal 6.2-12.0 [facility] Comment on above: Performed By: #### L 501.2300, L500.2500, L100.0500, L501.5200 ####[facility] [address] [place], [address] Platelets (Bld) [#/Vol] 174 10*3/uL Normal 150-450 [facility] Comment on above: Performed By: #### L 501.2300, L500.2500, L100.0500, L501.5200 ####[facility] [address] [place], [address] RBC (Bld) [#/Vol] 3.22 10*6/uL Low 4.2-5.4 [facility] Comment on above: Performed By: #### L 501.2300, L500.2500, L100.0500, L501.5200 ####[facility] [address] [place], [address] RDW SD 47.4 fl High 35.1-43.9 [facility] Comment on above: Performed By: #### L 501.2300, L500.2500, L100.0500, L501.5200 ####[facility] [address] [place], [address] WBC (Bld) [#/Vol] 6.4 10*3/uL Normal 4.4-11.0 [facility] Comment on above: Performed By: #### L 501.2300, L500.2500, L100.0500, L501.5200 ####[facility] [address] [place], [address] Magnesiumon 10-20-2024 Magnesium [Mass/Vol] 1.8 mg/dL Normal 1.5-2.2 [facility] Comment on above: Performed By: #### L 501.2300, L500.2500, L100.0500, L501.5200 ####[facility] [address] [place], [address] Phosphoruson 10-20-2024 Phosphate [Mass/Vol] 2.9 mg/dL Normal 2.7-4.5 [facility] Comment on above: Performed By: #### L 501.2300, L500.2500, L100.0500, L501.5200 ####[facility] [address] [place], [address] Bilirubin, totalOrdered By: Ramonita Boothe on 10-19-2024 Bilirubin [Mass/Vol] 0.56 mg/dL 0.00-1.30 [facility] CBC W/Diff, Automatedon Absolute Lymph 1.11 X10 3/uL Normal 0.83-4.51 [facility] Comment on above: Performed By: #### L 501.5200, L501.2300, L100.0100, L500.4050 ####[facility] [address] [place], [address] Absolute Neut 5.0 X10 3/uL Normal 2.0-7.7 [facility] Comment on above: Performed By: #### L 501.5200, L501.2300, L100.0100, L500.4050 ####[facility] [address] [place], [address] Basophils/100 WBC (Bld) 0.8 % Normal 0-1 [facility] Comment on above: Performed By: #### L 501.5200, L501.2300, L100.0100, L500.4050 ####[facility] [address] [place], [address] Eosinophils/100 WBC (Bld) 4.2 % Normal 0-5 [facility] Comment on above: Performed By: #### L 501.5200, L501.2300, L100.0100, L500.4050 ####[facility] [address] [place], [address] Erythrocyte distribution width (RBC) [Ratio] 15.1 % High 11.6-14.6 [facility] Comment on above: Performed By: #### L 501.5200, L501.2300, L100.0100, L500.4050 ####[facility] [address] [place], [address] Hematocrit (Bld) [Volume fraction] 27.6 % Low 37-47 [facility] Comment on above: Performed By: #### L 501.5200, L501.2300, L100.0100, L500.4050 ####[facility] [address] [place], [address] Hemoglobin (Bld) [Mass/Vol] 9.4 g/dL Low 12.0-15.0 [facility] Comment on above: Performed By: #### L 501.5200, L501.2300, L100.0100, L500.4050 ####[facility] [address] [place], [address] IG% 0.800 Normal 0.0-0.9 [facility] Comment on above: Result Comment: IG% - Immature Granulocytes (promyelocytes, myelocytes andmetamyelocytes) > 1% indicates that a LEFT SHIFT is Present. Performed By: #### L 501.5200, L501.2300, L100.0100, L500.4050 ####[facility] [address] [place], [address] Lymphocytes/100 WBC (Bld) 14.7 % Low 19-41 [facility] Comment on above: Performed By: #### L 501.5200, L501.2300, L100.0100, L500.4050 ####[facility] [address] [place], [address] MCH (RBC) [Entitic mass] 29.3 pg Normal 27.0-32.0 [facility] Comment on above: Performed By: #### L 501.5200, L501.2300, L100.0100, L500.4050 ####[facility] [address] [place], [address] MCHC (RBC) [Mass/Vol] 34.1 g/dL Normal 32-36 [facility] Comment on above: Performed By: #### L 501.5200, L501.2300, L100.0100, L500.4050 ####[facility] [address] [place], [address] MCV (RBC) [Entitic vol] 86.0 fL Normal 81-99 [facility] Comment on above: Performed By: #### L 501.5200, L501.2300, L100.0100, L500.4050 ####[facility] [address] [place], [address] Monocytes/100 WBC (Bld) 13.3 % High 0-10 [facility] Comment on above: Performed By: #### L 501.5200, L501.2300, L100.0100, L500.4050 ####[facility] [address] [place], [address] Neutrophils/100 WBC (Bld) 66.2 % Normal 47-70 [facility] Comment on above: Performed By: #### L 501.5200, L501.2300, L100.0100, L500.4050 ####[facility] [address] [place], [address] Nucleated RBC (Bld) [#/Vol] 0 10*3/uL Normal 0-5 [facility] Comment on above: Performed By: #### L 501.5200, L501.2300, L100.0100, L500.4050 ####[facility] [address] [place], [address] Platelet mean volume (Bld) [Entitic vol] 10.4 fL Normal 6.2-12.0 [facility] Comment on above: Performed By: #### L 501.5200, L501.2300, L100.0100, L500.4050 ####[facility] [address] [place], [address] Platelets (Bld) [#/Vol] 160 10*3/uL Normal 150-450 [facility] Comment on above: Performed By: #### L 501.5200, L501.2300, L100.0100, L500.4050 ####[facility] [address] [place], [address] RBC (Bld) [#/Vol] 3.21 10*6/uL Low 4.2-5.4 [facility] Comment on above: Performed By: #### L 501.5200, L501.2300, L100.0100, L500.4050 ####[facility] [address] [place], [address] RDW SD 46.7 fl High 35.1-43.9 [facility] Comment on above: Performed By: #### L 501.5200, L501.2300, L100.0100, L500.4050 ####[facility] [address] [place], [address] WBC (Bld) [#/Vol] 7.6 10*3/uL Normal 4.4-11.0 [facility] Comment on above: Performed By: #### L 501.5200, L501.2300, L100.0100, L500.4050 ####[facility] [address] [place], [address] Comprehensive Metabolic [facility] 10-19-2024 Albumin [Mass/Vol] 3.4 g/dL Normal 3.4-4.8 [facility] Comment on above: Performed By: #### L 501.5200, L501.2300, L100.0100, L500.4050 ####[facility] [address] [place], [address] Albumin/Globulin [Mass ratio] 1.8 {ratio} Normal 0.9-2.4 [facility] Comment on above: Performed By: #### L 501.5200, L501.2300, L100.0100, L500.4050 ####[facility] [address] [place], [address] ALK PHOS 47 U/L Normal 35-104 [facility] Comment on above: Performed By: #### L 501.5200, L501.2300, L100.0100, L500.4050 ####[facility] [address] [place], [address] ALT [Catalytic activity/Vol] 13 U/L Normal <=34 [facility] Comment on above: Performed By: #### L 501.5200, L501.2300, L100.0100, L500.4050 ####[facility] [address] [place], [address] AST [Catalytic activity/Vol] 31 U/L Normal <=31 [facility] Comment on above: Performed By: #### L 501.5200, L501.2300, L100.0100, L500.4050 ####[facility] [address] [place], [address] Bilirubin [Mass/Vol] 0.56 mg/dL Normal 0.00-1.30 [facility] Comment on above: Performed By: #### L 501.5200, L501.2300, L100.0100, L500.4050 ####[facility] [address] [place], [address] BUN/CRE 18.5 RATIO Normal 10-20 [facility] Comment on above: Performed By: #### L 501.5200, L501.2300, L100.0100, L500.4050 ####[facility] [address] [place], [address] Calcium [Mass/Vol] 8.2 mg/dL Normal 7.6-11.0 [facility] Comment on above: Performed By: #### L 501.5200, L501.2300, L100.0100, L500.4050 ####[facility] [address] [place], [address] Chloride [Moles/Vol] 107 mmol/L Normal 98-108 [facility] Comment on above: Performed By: #### L 501.5200, L501.2300, L100.0100, L500.4050 ####[facility] [address] [place] [address], [address] CO2 [Moles/Vol] 24.2 mmol/L Normal 21.0-32.0 [facility] Comment on above: Performed By: #### L 501.5200, L501.2300, L100.0100, L500.4050 ####[facility] [address] [place], [address] Creatinine [Mass/Vol] 0.60 mg/dL Low 0.70-1.20 [place] Comment on above: Performed By: #### L 501.5200, L501.2300, L100.0100, L500.4050 ####[facility] [address] [place], [address] ECRCL 43.30 ml/min Low 50-250 [facility] Comment on above: Performed By: #### L 501.5200, L501.2300, L100.0100, L500.4050 ####[facility] [address] [place], [address] GAP 8 Normal 5-15 [facility] Comment on above: Performed By: #### L 501.5200, L501.2300, L100.0100, L500.4050 ####[facility] [address] [place], [address] GFR/1.73 sq M.predicted among non-blacks MDRD (S/P/Bld) [Vol rate/Area] 88 mL/min/{1.73_m2} Normal >60 [facility] Comment on above: Result Comment: mL/m in/1.73m2 CKD-EPI Creatinine Equation (2020) Performed By: #### L 501.5200, L501.2300, L100.0100, L500.4050 ####[facility] [address] [place], [address] Globulin (S) [Mass/Vol] 1.9 g/dL Low 2.2-4.2 [facility] Comment on above: Performed By: #### L 501.5200, L501.2300, L100.0100, L500.4050 ####[facility] [address] [place], [address] Glucose [Mass/Vol] 98 mg/dL Normal 70-99 [facility] Comment on above: Performed By: #### L 501.5200, L501.2300, L100.0100, L500.4050 ####[facility] [address] [place], [address] Potassium [Moles/Vol] 3.2 mmol/L Low 3.3-5.1 [place] Comment on above: Performed By: #### L 501.5200, L501.2300, L100.0100, L500.4050 ####[facility] [address] [place], [address] Sodium [Moles/Vol] 139 mmol/L Normal 133-145 [facility] Comment on above: Performed By: #### L 501.5200, L501.2300, L100.0100, L500.4050 ####[facility] [address] [place], [address] T PROT 5.3 g/dL Low 5.9-8.4 [facility] Comment on above: Performed By: #### L 501.5200, L501.2300, L100.0100, L500.4050 ####[facility] [address] [place], [address] Urea nitrogen [Mass/Vol] 11 mg/dL Normal 4-19 [facility] Comment on above: Performed By: #### L 501.5200, L501.2300, L100.0100, L500.4050 ####[facility] [address] [place], [address] Laboratory - Chemistry and C hemistry - challengeOrdered By: Ramonita Boothe on 10-19-2024 AST [Catalytic activity/Vol] 31 U/L <32 [facility] Magnesiumon 10-19-2024 Magnesium [Mass/Vol] 1.8 mg/dL Normal 1.5-2.2 [facility] Comment on above: Performed By: #### L 501.5200, L501.2300, L100.0100, L500.4050 ####[facility] [address] [place], [address] Phosphoruson 10-19-2024 Phosphate [Mass/Vol] 2.2 mg/dL Low 2.7-4.5 [facility] Comment on above: Performed By: #### L 501.5200, L501.2300, L100.0100, L500.4050 ####[facility] [address] [place], [address] Serum globulin measurementOr dered By: Ramonita Boothe on 10-19-2024 Globulin (S) [Mass/Vol] 1.9 g/dL Low 2.2-4.2 [facility] Serum or plasma alanine canada otransferase (ALT) measurementOrdered By: Ramonita Boothe on 10-19-2024 ALT [Catalytic activity/Vol] 13 U/L <35 [facility] Serum or plasma albumin july urement (mass/volume)Ordered By: Ramonita Boothe on 10-19-2024 Albumin [Mass/Vol] 3.4 g/dL 3.4-4.8 [facility] Serum or plasma albumin/glob ulin mass ratioOrdered By: Ramonita Boothe on 10-19-2024 Albumin/Globulin [Mass ratio] 1.8 {ratio} 0.9-2.4 [facility] Serum or plasma alkaline kaela sphatase measurementOrdered By: Ramonita Boothe on 10-19-2024 ALP [Catalytic activity/Vol] 47 U/L 35-104 [facility] Total proteinOrdered By: Alanis Boothe on 10-19-2024 Protein [Mass/Vol] 5.3 g/dL Low 5.9-8.4 [facility] CBC W/Diff, Automatedon 07-0 3-202 Absolute Lymph 1.36 X10 3/uL Normal 0.83-4.51 [facility] Comment on above: Performed By: #### L 100.0100 ####[facility] [address] [place], [address] Absolute Neut 3.9 X10 3/uL Normal 2.0-7.7 [facility] Comment on above: Performed By: #### L 100.0100 ####[facility] [address] [place], [address] Basophils/100 WBC (Bld) 0.6 % Normal 0-1 [facility] Comment on above: Performed By: #### L 100.0100 ####[facility] [address] [place], [address] Eosinophils/100 WBC (Bld) 5.1 % High 0-5 [facility] Comment on above: Performed By: #### L 100.0100 ####[facility] [address] [place], [address] Erythrocyte distribution width (RBC) [Ratio] 16.1 % High 11.6-14.6 [facility] Comment on above: Performed By: #### L 100.0100 ####[facility] [address] [place], [address] Hematocrit (Bld) [Volume fraction] 20.6 % Low 37-47 [facility] Comment on above: Performed By: #### L 100.0100 ####[facility] [address] [place], [address] Hemoglobin (Bld) [Mass/Vol] 6.8 g/dL Low 12.0-15.0 [facility] Comment on above: Performed By: #### L 100.0100 ####[facility] [address] [place], [address] IG% 0.500 Normal 0.0-0.9 [facility] Comment on above: Result Comment: IG% - Immature Granulocytes (promyelocytes, myelocytes andmetamyelocytes) > 1% indicates that a LEFT SHIFT is Present. Performed By: #### L 100.0100 ####[facility] [address] [place], [address] Lymphocytes/100 WBC (Bld) 21.2 % Normal 19-41 [facility] Comment on above: Performed By: #### L 100.0100 ####[facility] [address] [place], [address] MCH (RBC) [Entitic mass] 28.6 pg Normal 27.0-32.0 [facility] Comment on above: Performed By: #### L 100.0100 ####[facility] [address] [place], [address] MCHC (RBC) [Mass/Vol] 33.0 g/dL Normal 32-36 [facility] Comment on above: Performed By: #### L 100.0100 ####[facility] [address] [place], [address] MCV (RBC) [Entitic vol] 86.6 fL Normal 81-99 [facility] Comment on above: Performed By: #### L 100.0100 ####[facility] [address] [place], [address] Monocytes/100 WBC (Bld) 12.5 % High 0-10 [facility] Comment on above: Performed By: #### L 100.0100 ####[facility] [address] [place], [address] Neutrophils/100 WBC (Bld) 60.1 % Normal 47-70 [facility] Comment on above: Performed By: #### L 100.0100 ####[facility] [address] [place], [address] Nucleated RBC (Bld) [#/Vol] 0 10*3/uL Normal 0-5 [facility] Comment on above: Performed By: #### L 100.0100 ####[facility] [address] [place], [address] Platelet mean volume (Bld) [Entitic vol] 10.1 fL Normal 6.2-12.0 [facility] Comment on above: Performed By: #### L 100.0100 ####[facility] [address] [place], [address] Platelets (Bld) [#/Vol] 156 10*3/uL Normal 150-450 [facility] Comment on above: Performed By: #### L 100.0100 ####[facility] [address] [place], [address] RBC (Bld) [#/Vol] 2.38 10*6/uL Low 4.2-5.4 [facility] Comment on above: Performed By: #### L 100.0100 ####[facility] [address] [place], [address] RDW SD 50.5 fl High 35.1-43.9 [facility] Comment on above: Performed By: #### L 100.0100 ####[facility] [address] [place], [address] WBC (Bld) [#/Vol] 6.4 10*3/uL Normal 4.4-11.0 [facility] Comment on above: Performed By: #### L 100.0100 ####[facility] [address] [place], [address] Absolute Neut Normal 2.0-7.7 [facility] Comment on above: Result Comment: This specimen has been REJECTED due to Laboratory criteria:Clotted.TMELLOR has been notified of need of recollection.10/18/24599 Stephen Estrella Performed By: #### L 100.0100, L501.2300 ####[facility] [address] [place], [address] HCT Normal 37-47 [facility] Comment on above: Result Comment: This specimen has been REJECTED due to Laboratory criteria:Clotted.TMELLOR has been notified of need of recollection.10/18/24599 Stephen Roy Performed By: #### L 100.0100, L501.2300 ####[facility] [address] [place], [address] HGB Normal 12.0-15.0 [facility] Comment on above: Result Comment: This specimen has been REJECTED due to Laboratory criteria:Clotted.TMELLOR has been notified of need of recollection.10/18/24599 Stephen Estrella Performed By: #### L 100.0100, L501.2300 ####[facility] [address] [place], [address] MCH Normal 27.0-32.0 [facility] Comment on above: Result Comment: This specimen has been REJECTED due to Laboratory criteria:Clotted.TMELLOR has been notified of need of recollection.10/18/24599 Stephen Estrella Performed By: #### L 100.0100, L501.2300 ####[facility] [address] [place], [address] MCHC Normal 32-36 [facility] Comment on above: Result Comment: This specimen has been REJECTED due to Laboratory criteria:Clotted.TMELLOR has been notified of need of recollection.10/18/24599 Stephen Estrella Performed By: #### L 100.0100, L501.2300 ####[facility] [address] [place], [address] MCV Normal 81-99 [facility] Comment on above: Result Comment: This specimen has been REJECTED due to Laboratory criteria:Clotted.TMELLOR has been notified of need of recollection.10/18/24599 Stephen Estrella Performed By: #### L 100.0100, L501.2300 ####[facility] [address] [place], [address] NEUT% Normal 47-70 [facility] Comment on above: Result Comment: This specimen has been REJECTED due to Laboratory criteria:Clotted.TMELLOR has been notified of need of recollection.10/18/24599 Stephen Estrella Performed By: #### L 100.0100, L501.2300 ####[facility] [address] [place], [address] PLT Normal 150-450 [facility] Comment on above: Result Comment: This specimen has been REJECTED due to Laboratory criteria:Clotted.TMELLOR has been notified of need of recollection.10/18/24599 Stephen Roy Performed By: #### L 100.0100, L501.2300 ####[facility] [address] [place], [address] RBC Normal 4.2-5.4 [facility] Comment on above: Result Comment: This specimen has been REJECTED due to Laboratory criteria:Clotted.TMELLOR has been notified of need of recollection.10/18/24599 Stephen Estrella Performed By: #### L 100.0100, L501.2300 ####[facility] [address] [place], [address] RDW CV Normal 11.6-14.6 [facility] Comment on above: Result Comment: This specimen has been REJECTED due to Laboratory criteria:Clotted.TMELLOR has been notified of need of recollection.10/18/24599 Stephen Roy Performed By: #### L 100.0100, L501.2300 ####[facility] [address] [place], [address] RDW SD Normal 35.1-43.9 [facility] Comment on above: Result Comment: This specimen has been REJECTED due to Laboratory criteria:Clotted.TMELLOR has been notified of need of recollection.10/18/24 0600 Stephen Estrella Performed By: #### L 100.0100, L501.2300 ####[facility] [address] [place], [address] WBC Normal 4.4-11.0 [facility] Comment on above: Result Comment: This specimen has been REJECTED due to Laboratory criteria:Clotted.TMELLOR has been notified of need of recollection.10/18/24 06 Stephen Estrella Performed By: #### L 100.0100, L501.2300 ####[facility] [address] [place], [address] Hemoglobinon 10-18-2024 Hemoglobin (Bld) [Mass/Vol] 7.0 g/dL Low 12.0-15.0 [facility] Comment on above: Performed By: #### L 100.1300 ####[facility] [address] [place], [address] Hemoglobin (Bld) [Mass/Vol] 7.3 g/dL Low 12.0-15.0 [facility] Comment on above: Performed By: #### L 100.1300 ####[facility] [address] [place], [address] Phosphoruson 10-18-2024 Phosphate [Mass/Vol] 2.6 mg/dL Low 2.7-4.5 [facility] Comment on above: Performed By: #### L 100.0100, L501.2300 ####[facility] [address] [place], [address] [id number] 10-17-2024 ANTIBODY ID E Normal [facility] Comment on above: Order Comment: HGI Performed By: #### B TS, [id number] ####[facility] [address] [place], [address] CBC W/Diff, Automatedon 07-0 2-5 Absolute Lymph 1.10 X10 3/uL Normal 0.83-4.51 [facility] Comment on above: Performed By: #### L 500.4050, L100.0100, L501.2300, L501.9520 ####[facility] [address] [place], [address] Absolute Neut 16.6 X10 3/uL High 2.0-7.7 [facility] Comment on above: Performed By: #### L 500.4050, L100.0100, L501.2300, L501.9520 ####[facility] [address] [place], [address] Basophils/100 WBC (Bld) 0.4 % Normal 0-1 [facility] Comment on above: Performed By: #### L 500.4050, L100.0100, L501.2300, L501.9520 ####[facility] [address] [place], [address] Eosinophils/100 WBC (Bld) 0.1 % Normal 0-5 [facility] Comment on above: Performed By: #### L 500.4050, L100.0100, L501.2300, L501.9520 ####[facility] [address] [place], [address] Erythrocyte distribution width (RBC) [Ratio] 17.4 % High 11.6-14.6 [facility] Comment on above: Performed By: #### L 500.4050, L100.0100, L501.2300, L501.9520 ####[facility] [address] [place], [address] Hematocrit (Bld) [Volume fraction] 36.1 % Low 37-47 [facility] Comment on above: Performed By: #### L 500.4050, L100.0100, L501.2300, L501.9520 ####[facility] [address] [place], [address] Hemoglobin (Bld) [Mass/Vol] 12.0 g/dL Normal 12.0-15.0 [facility] Comment on above: Performed By: #### L 500.4050, L100.0100, L501.2300, L501.9520 ####[facility] [address] [place], [address] IG% 1.000 High 0.0-0.9 [facility] Comment on above: Result Comment: IG% - Immature Granulocytes (promyelocytes, myelocytes andmetamyelocytes) > 1% indicates that a LEFT SHIFT is Present. Performed By: #### L 500.4050, L100.0100, L501.2300, L501.9520 ####[facility] [address] [place], [address] Lymphocytes/100 WBC (Bld) 5.7 % Low 19-41 [facility] Comment on above: Performed By: #### L 500.4050, L100.0100, L501.2300, L501.9520 ####[facility] [address] [place], [address] MCH (RBC) [Entitic mass] 31.4 pg Normal 27.0-32.0 [facility] Comment on above: Performed By: #### L 500.4050, L100.0100, L501.2300, L501.9520 ####[facility] [address] [place], [address] MCHC (RBC) [Mass/Vol] 33.2 g/dL Normal 32-36 [facility] Comment on above: Performed By: #### L 500.4050, L100.0100, L501.2300, L501.9520 ####[facility] [address] [place], [address] MCV (RBC) [Entitic vol] 94.5 fL Normal 81-99 [facility] Comment on above: Performed By: #### L 500.4050, L100.0100, L501.2300, L501.9520 ####[facility] [address] [place], [address] Monocytes/100 WBC (Bld) 6.2 % Normal 0-10 [facility] Comment on above: Performed By: #### L 500.4050, L100.0100, L501.2300, L501.9520 ####[facility] [address] [place], [address] Neutrophils/100 WBC (Bld) 86.6 % High 47-70 [facility] Comment on above: Performed By: #### L 500.4050, L100.0100, L501.2300, L501.9520 ####[facility] [address] [place], [address] Nucleated RBC (Bld) [#/Vol] 0.2 10*3/uL Normal 0-5 [facility] Comment on above: Performed By: #### L 500.4050, L100.0100, L501.2300, L501.9520 ####[facility] [address] [place], [address] Platelet mean volume (Bld) [Entitic vol] 9.7 fL Normal 6.2-12.0 [facility] Comment on above: Performed By: #### L 500.4050, L100.0100, L501.2300, L501.9520 ####[facility] [address] [place], [address] Platelets (Bld) [#/Vol] 265 10*3/uL Normal 150-450 [facility] Comment on above: Performed By: #### L 500.4050, L100.0100, L501.2300, L501.9520 ####[facility] [address] [place], [address] RBC (Bld) [#/Vol] 3.82 10*6/uL Low 4.2-5.4 [facility] Comment on above: Performed By: #### L 500.4050, L100.0100, L501.2300, L501.9520 ####[facility] [address] [place], [address] RDW SD 58.4 fl High 35.1-43.9 [facility] Comment on above: Performed By: #### L 500.4050, L100.0100, L501.2300, L501.9520 ####[facility] [address] [place], [address] WBC (Bld) [#/Vol] 19.2 10*3/uL High 4.4-11.0 [facility] Comment on above: Performed By: #### L 500.4050, L100.0100, L501.2300, L501.9520 ####[facility] [address] [place], [address] Comprehensive Metabolic Prof [facility] 10-17-2024 Albumin [Mass/Vol] 2.4 g/dL Low 3.4-4.8 [facility] Comment on above: Performed By: #### L 500.4050, L100.0100, L501.2300, L501.9520 ####[facility] [address] [place], [address] Albumin/Globulin [Mass ratio] 0.7 {ratio} Low 0.9-2.4 [facility] Comment on above: Performed By: #### L 500.4050, L100.0100, L501.2300, L501.9520 ####[facility] [address] [place], [address] ALK PHOS 80 U/L Normal 35-104 [facility] Comment on above: Performed By: #### L 500.4050, L100.0100, L501.2300, L501.9520 ####[facility] [address] [place], [address] ALT [Catalytic activity/Vol] 27 U/L Normal <=34 [facility] Comment on above: Performed By: #### L 500.4050, L100.0100, L501.2300, L501.9520 ####[facility] [address] [place], [address] AST [Catalytic activity/Vol] 88 U/L High <=31 [facility] Comment on above: Result Comment: Hemo lysis present, Results??could be affected.?? Performed By: #### L 500.4050, L100.0100, L501.2300, L501.9520 ####[facility] [address] [place], [address] Bilirubin [Mass/Vol] 4.52 mg/dL High 0.00-1.30 [facility] Comment on above: Performed By: #### L 500.4050, L100.0100, L501.2300, L501.9520 ####[facility] [address] [place], [address] BUN/CRE 13.5 RATIO Normal 10-20 [facility] Comment on above: Performed By: #### L 500.4050, L100.0100, L501.2300, L501.9520 ####[facility] [address] [place], [address] Calcium [Mass/Vol] 7.5 mg/dL Low 7.6-11.0 [facility] Comment on above: Performed By: #### L 500.4050, L100.0100, L501.2300, L501.9520 ####[facility] [address] [place], [address] Chloride [Moles/Vol] 111 mmol/L High 98-108 [facility] Comment on above: Performed By: #### L 500.4050, L100.0100, L501.2300, L501.9520 ####[facility] [address] [place], [address] CO2 [Moles/Vol] 16.0 mmol/L Low 21.0-32.0 [facility] Comment on above: Performed By: #### L 500.4050, L100.0100, L501.2300, L501.9520 ####[facility] [address] [place], [address] Creatinine [Mass/Vol] 0.59 mg/dL Low 0.70-1.20 [facility] Comment on above: Performed By: #### L 500.4050, L100.0100, L501.2300, L501.9520 ####[facility] [address] [place], [address] ECRCL 43.30 ml/min Low 50-250 [facility] Comment on above: Performed By: #### L 500.4050, L100.0100, L501.2300, L501.9520 ####[facility] [address] [place], [address] GAP 15 Normal 5-15 [facility] Comment on above: Performed By: #### L 500.4050, L100.0100, L501.2300, L501.9520 ####[facility] [address] [place], [address] GFR/1.73 sq M.predicted among non-blacks MDRD (S/P/Bld) [Vol rate/Area] 89 mL/min/{1.73_m2} Normal >60 [facility] Comment on above: Result Comment: mL/m in/1.73m2 CKD-EPI Creatinine Equation (2020) Performed By: #### L 500.4050, L100.0100, L501.2300, L501.9520 ####[facility] [address] [place], [address] Globulin (S) [Mass/Vol] 3.4 g/dL Normal 2.2-4.2 [facility] Comment on above: Performed By: #### L 500.4050, L100.0100, L501.2300, L501.9520 ####[facility] [address] [place], [address] Glucose [Mass/Vol] 100 mg/dL High 70-99 [facility] Comment on above: Performed By: #### L 500.4050, L100.0100, L501.2300, L501.9520 ####[facility] [address] [place], [address] Potassium [Moles/Vol] 4.0 mmol/L Normal 3.3-5.1 [facility] Comment on above: Result Comment: Hemo lysis present, Results??could be affected.?? Performed By: #### L 500.4050, L100.0100, L501.2300, L501.9520 ####[facility] [address] [place], [address] Sodium [Moles/Vol] 142 mmol/L Normal 133-145 [facility] Comment on above: Performed By: #### L 500.4050, L100.0100, L501.2300, L501.9520 ####[facility] [address] [place], [address] T PROT 5.8 g/dL Low 5.9-8.4 [facility] Comment on above: Performed By: #### L 500.4050, L100.0100, L501.2300, L501.9520 ####[facility] [address] [place], [address] Urea nitrogen [Mass/Vol] 8 mg/dL Normal 4-19 [facility] Comment on above: Performed By: #### L 500.4050, L100.0100, L501.2300, L501.9520 ####[facility] [address] [place], [address] EGD Reporton 10-17-2024 EGD Report Normal [facility] Iron measurement (mass/mass) Ordered By: Lamin Jacobsen on 10-17-2024 Iron (Unsp spec) [Mass/Mass] 20 ug/dL Low 50-170 [facility] Iron+Iron Binding Capacityon 10-17-2024 Iron [Mass/Vol] 20 ug/dL Low 50-170 [facility] Comment on above: Performed By: #### L 501.5200, L503.6005, L503.6030 ####[facility] [address] [place], [address] IRON SATURATION 7.0 Low 13-59 [facility] Comment on above: Performed By: #### L 501.5200, L503.6005, L503.6030 ####[facility] [address] [place], [address] TIBC 299 ug/dL Normal 250-450 [facility] Comment on above: Performed By: #### L 501.5200, L503.6005, L503.6030 ####[facility] [address] [place], [address] UIBC 279 ug/dL Normal 228-428 [facility] Comment on above: Performed By: #### L 501.5200, L503.6005, L503.6030 ####[facility] [address] [place], [address] Lactic Acidon 10-17-2024 Lactate [Moles/Vol] 1.0 mmol/L Normal 0.0-2.0 [facility] Comment on above: Order Comment: Y Performed By: #### L 501.5200, L503.6005, L503.6030 ####[facility] [address] [place], [address] Lactic acid measurementOrder ed By: Lamin Jacobsen on 10-17-2024 Lactate [Moles/Vol] 1.0 mmol/L 0.0-2.0 [facility] MR/CON.PCM.GIon 10-17-2024 MR/CON.PCM.GI Normal [facility] MR/POSTOP.ANEon 10-17-2024 MR/POSTOP.ANE Normal [facility] MR/XDTEPVDM9il 10-17-2024 MR/POSTOPAN2 Normal [facility] Magnesiumon 10-17-2024 Magnesium [Mass/Vol] 1.9 mg/dL Normal 1.5-2.2 [facility] Comment on above: Performed By: #### L 501.5200, L503.6005, L503.6030 ####[facility] [address] [place], [place], [address] No Panel InformationOrdered By: Lamin Jacobsen on 10-17-2024 Unsaturated Iron Binding Capacity 279 ug/dL 228-428 [facility] Phosphoruson 10-17-2024 Phosphate [Mass/Vol] 1.9 mg/dL Low 2.7-4.5 [facility] Comment on above: Performed By: #### L 500.4050, L100.0100, L501.2300, L501.9520 ####[facility] [address] [place], [address] Serum or plasma ferritin laura surement (mass/volume)Ordered By: Lamin Jacobsen on 10-17-2024 Ferritin [Mass/Vol] 23 ng/mL Normal 22-378 [facility] Comment on above: Performed By: #### L 503.6550 ####[facility] [address] [place], [place], [id number] Serum or plasma iron saturat ion measurement (mass fraction)Ordered By: Lamin Jacobsen on 10-17-2024 Iron saturation [Mass fraction] 7.0 % Low 13-59 [facility] Surgery Specimen Level Vern 10-17-2024 Surgery Specimen Level IV Normal [facility] Comment on above: Performed By: #### P SUIV ####[facility] [address] [place], [place], [id number] TSH DL <= 0.005 mIU/L QnOrde red By: Lamin Jacobsen on 10-17-2024 TSH Qn 0.718 uIU/mL 0.300-4.200 [facility] Thyroid Stim Hormone (TSH)on 10-17-2024 TSH 0.718 uIU/mL Normal 0.300-4.200 [facility] Comment on above: Performed By: #### L 500.4050, L100.0100, L501.2300, L501.9520 ####[facility] [address] [place], [place], [address] Absolute lymphocyte countOrd ered By: Ketan Couch on 10-16-2024 Lymphocytes Auto (Unsp spec) [#/Vol] 1.60 10*3/uL 0.83-4.51 [facility] Absolute neutrophil countOrd ered By: Ketan Couch on 10-16-2024 Neutrophils (Bld) [#/Vol] 5.1 10*3/uL 2.0-7.7 [facility] Anion gap in Serum or Plasma Ordered By: Ketan Couch on 10-16-2024 Anion gap [Moles/Vol] 13 mmol/L 5-15 [place] Automated lymphocyte count a s percentage of total leukocytesOrdered By: Ketan Couch on 10-16-2024 Lymphocytes/100 WBC Auto (Unsp spec) 20.5 % 19-41 [facility] BRCon 10-16-2024 RC Normal [facility] Comment on above: Result Comment: [id number] ON RC TRANSFUSED 10/18/24 [id number] ON RC TRANSFUSED 10/18/242057 Performed By: #### B ####[facility] [address] [place], [address] Result Comment: [id number] ON RC TRANSFUSED 10/17/24 [id number] ON RC TRANSFUSED 10/17/24 0353 BUN/creatinine ratioOrdered By: Ketan Couch on 10-16-2024 Urea nitrogen/Creatinine [Mass ratio] 37.8 mg/mg High 10-20 [facility] Basophil percentageOrdered B y: Ketan Couch on 10-16-2024 Basophils/100 WBC (Bld) 0.8 % 0-1 [facility] Bilirubin, totalOrdered By: Ketan Couch on 10-16-2024 Bilirubin [Mass/Vol] 0.27 mg/dL 0.00-1.30 [facility] CBC W/Diff, Automatedon Absolute Lymph 1.60 X10 3/uL Normal 0.83-4.51 [facility] Comment on above: Performed By: #### M 100.7900, L100.0100, L501.2450, L503.6005, L500.4050 ####[facility] [address] [place], [address] Absolute Neut 5.1 X10 3/uL Normal 2.0-7.7 [facility] Comment on above: Performed By: #### M 100.7900, L100.0100, L501.2450, L503.6005, L500.4050 ####[facility] [address] [place], [address] Basophils/100 WBC (Bld) 0.8 % Normal 0-1 [facility] Comment on above: Performed By: #### M 100.7900, L100.0100, L501.2450, L503.6005, L500.4050 ####[facility] [address] [place], [address] Eosinophils/100 WBC (Bld) 2.2 % Normal 0-5 [facility] Comment on above: Performed By: #### M 100.7900, L100.0100, L501.2450, L503.6005, L500.4050 ####[facility] [address] [place], [address] Erythrocyte distribution width (RBC) [Ratio] 14.9 % High 11.6-14.6 [facility] Comment on above: Performed By: #### M 100.7900, L100.0100, L501.2450, L503.6005, L500.4050 ####[facility] [address] [place], [address] Hematocrit (Bld) [Volume fraction] 26.7 % Low 37-47 [facility] Comment on above: Performed By: #### M 100.7900, L100.0100, L501.2450, L503.6005, L500.4050 ####[facility] [address] [place], [address] Hemoglobin (Bld) [Mass/Vol] 8.5 g/dL Low 12.0-15.0 [facility] Comment on above: Performed By: #### M 100.7900, L100.0100, L501.2450, L503.6005, L500.4050 ####[facility] [address] [place], [address] IG% 0.400 Normal 0.0-0.9 [facility] Comment on above: Result Comment: IG% - Immature Granulocytes (promyelocytes, myelocytes andmetamyelocytes) > 1% indicates that a LEFT SHIFT is Present. Performed By: #### M 100.7900, L100.0100, L501.2450, L503.6005, L500.4050 ####[facility] [address] [place], [address] Lymphocytes/100 WBC (Bld) 20.5 % Normal 19-41 [facility] Comment on above: Performed By: #### M 100.7900, L100.0100, L501.2450, L503.6005, L500.4050 ####[facility] [address] [place], [address] MCH (RBC) [Entitic mass] 27.3 pg Normal 27.0-32.0 [facility] Comment on above: Performed By: #### M 100.7900, L100.0100, L501.2450, L503.6005, L500.4050 ####[facility] [address] [place], [address] MCHC (RBC) [Mass/Vol] 31.8 g/dL Low 32-36 [facility] Comment on above: Performed By: #### M 100.7900, L100.0100, L501.2450, L503.6005, L500.4050 ####[facility] [address] [place], [address] MCV (RBC) [Entitic vol] 85.9 fL Normal 81-99 [facility] Comment on above: Performed By: #### M 100.7900, L100.0100, L501.2450, L503.6005, L500.4050 ####[facility] [address] [place], [address] Monocytes/100 WBC (Bld) 10.7 % High 0-10 [facility] Comment on above: Performed By: #### M 100.7900, L100.0100, L501.2450, L503.6005, L500.4050 ####[facility] [address] [place], [address] Neutrophils/100 WBC (Bld) 65.4 % Normal 47-70 [facility] Comment on above: Performed By: #### M 100.7900, L100.0100, L501.2450, L503.6005, L500.4050 ####[facility] [address] [place], [address] Nucleated RBC (Bld) [#/Vol] 0 10*3/uL Normal 0-5 [facility] Comment on above: Performed By: #### M 100.7900, L100.0100, L501.2450, L503.6005, L500.4050 ####[facility] [address] [place], [address] Platelet mean volume (Bld) [Entitic vol] 10.2 fL Normal 6.2-12.0 [facility] Comment on above: Performed By: #### M 100.7900, L100.0100, L501.2450, L503.6005, L500.4050 ####[facility] [address] [place], [address] Platelets (Bld) [#/Vol] 218 10*3/uL Normal 150-450 [facility] Comment on above: Performed By: #### M 100.7900, L100.0100, L501.2450, L503.6005, L500.4050 ####[facility] [address] [place], [address] RBC (Bld) [#/Vol] 3.11 10*6/uL Low 4.2-5.4 [facility] Comment on above: Performed By: #### M 100.7900, L100.0100, L501.2450, L503.6005, L500.4050 ####[facility] [address] [place], [address] RDW SD 46.7 fl High 35.1-43.9 [facility] Comment on above: Performed By: #### M 100.7900, L100.0100, L501.2450, L503.6005, L500.4050 ####[facility] [address] [place], [address] WBC (Bld) [#/Vol] 7.8 10*3/uL Normal 4.4-11.0 [facility] Comment on above: Performed By: #### M 100.7900, L100.0100, L501.2450, L503.6005, L500.4050 ####[facility] [address] [place], [address] CTA Abd/Pelvis W/WO Contrast on 10-16-2024 CTA Abd/Pelvis W/WO Contrast Normal [facility] Carbon dioxide, total [Moles /volume] in Central venous bloodOrdered By: Ketan Couch on 10-16-2024 CO2 [Moles/Vol] 22.7 mmol/L 21.0-32.0 [facility] Chloride assayOrdered By: Humberto Couch on 10-16-2024 Chloride [Moles/Vol] 100 mmol/L 98-108 [facility] Comprehensive Metabolic Prof ilon 10-16-2024 Albumin [Mass/Vol] 3.8 g/dL Normal 3.4-4.8 [facility] Comment on above: Performed By: #### M 100.7900, L100.0100, L501.2450, L503.6005, L500.4050 ####[facility] [address] [place], [address] Albumin/Globulin [Mass ratio] 1.6 {ratio} Normal 0.9-2.4 [facility] Comment on above: Performed By: #### M 100.7900, L100.0100, L501.2450, L503.6005, L500.4050 ####[facility] [address] [place], [address] ALK PHOS 60 U/L Normal 35-104 [facility] Comment on above: Performed By: #### M 100.7900, L100.0100, L501.2450, L503.6005, L500.4050 ####[facility] [address] [place], [address] ALT [Catalytic activity/Vol] 13 U/L Normal <=34 [facility] Comment on above: Performed By: #### M 100.7900, L100.0100, L501.2450, L503.6005, L500.4050 ####[facility] [address] [place], [address] AST [Catalytic activity/Vol] 18 U/L Normal <=31 [facility] Comment on above: Performed By: #### M 100.7900, L100.0100, L501.2450, L503.6005, L500.4050 ####[facility] [address] [place], [address] Bilirubin [Mass/Vol] 0.27 mg/dL Normal 0.00-1.30 [facility] Comment on above: Performed By: #### M 100.7900, L100.0100, L501.2450, L503.6005, L500.4050 ####[facility] [address] [place], [address] BUN/CRE 37.8 RATIO High 10-20 [facility] Comment on above: Performed By: #### M 100.7900, L100.0100, L501.2450, L503.6005, L500.4050 ####[facility] [address] [place], [address] Calcium [Mass/Vol] 9.2 mg/dL Normal 7.6-11.0 [facility] Comment on above: Performed By: #### M 100.7900, L100.0100, L501.2450, L503.6005, L500.4050 ####[facility] [address] [place], [address] Chloride [Moles/Vol] 100 mmol/L Normal 98-108 [facility] Comment on above: Performed By: #### M 100.7900, L100.0100, L501.2450, L503.6005, L500.4050 ####[facility] [address] [place], [address] CO2 [Moles/Vol] 22.7 mmol/L Normal 21.0-32.0 [facility] Comment on above: Performed By: #### M 100.7900, L100.0100, L501.2450, L503.6005, L500.4050 ####[facility] [address] [place], [address] Creatinine [Mass/Vol] 1.01 mg/dL Normal 0.70-1.20 [facility] Comment on above: Performed By: #### M 100.7900, L100.0100, L501.2450, L503.6005, L500.4050 ####[facility] [address] [place], [address] ECRCL 34.30 ml/min Low 50-250 [facility] Comment on above: Performed By: #### M 100.7900, L100.0100, L501.2450, L503.6005, L500.4050 ####[facility] [address] [place], [address] GAP 13 Normal 5-15 [facility] Comment on above: Performed By: #### M 100.7900, L100.0100, L501.2450, L503.6005, L500.4050 ####[facility] [address] [place], [address] GFR/1.73 sq M.predicted among non-blacks MDRD (S/P/Bld) [Vol rate/Area] 55 mL/min/{1.73_m2} Low >60 [facility] Comment on above: Result Comment: mL/m in/1.73m2 CKD-EPI Creatinine Equation (2020) Performed By: #### M 100.7900, L100.0100, L501.2450, L503.6005, L500.4050 ####[facility] [address] [place], [address] Globulin (S) [Mass/Vol] 2.3 g/dL Normal 2.2-4.2 [facility] Comment on above: Performed By: #### M 100.7900, L100.0100, L501.2450, L503.6005, L500.4050 ####[facility] [address] [place], [address] Glucose [Mass/Vol] 139 mg/dL High 70-99 [facility] Comment on above: Performed By: #### M 100.7900, L100.0100, L501.2450, L503.6005, L500.4050 ####[facility] [address] [place], [address] Potassium [Moles/Vol] 3.3 mmol/L Normal 3.3-5.1 [place] Comment on above: Performed By: #### M 100.7900, L100.0100, L501.2450, L503.6005, L500.4050 ####[facility] [address] [place], [address] Sodium [Moles/Vol] 135 mmol/L Normal 133-145 [facility] Comment on above: Performed By: #### M 100.7900, L100.0100, L501.2450, L503.6005, L500.4050 ####[facility] [address] [place], [address] T PROT 6.1 g/dL Normal 5.9-8.4 [facility] Comment on above: Performed By: #### M 100.7900, L100.0100, L501.2450, L503.6005, L500.4050 ####[facility] [address] [place], [address] Urea nitrogen [Mass/Vol] 38 mg/dL High 4-19 [facility] Comment on above: Performed By: #### M 100.7900, L100.0100, L501.2450, L503.6005, L500.4050 ####[facility] [address] [place], [address] Emergency Department Summary on 10-16-2024 Emergency Department Summary Normal [facility] Eosinophil percentageOrdered By: Ketan Couch on 10-16-2024 Eosinophils/100 WBC (Bld) 2.2 % 0-5 [facility] Erythrocyte distribution wid th ratioOrdered By: Ketan Couch on 10-16-2024 Erythrocyte distribution width (RBC) [Ratio] 14.9 % High 11.6-14.6 [facility] Erythrocyte distribution wid th standard deviationOrdered By: Ketan Brown on 10-16-2024 Erythrocyte distribution width (RBC) [Ratio] 46.7 fl High 35.1-43.9 [facility] Glomerular filtration rate ( GFR) estimation/1.73 sq m using serum, plasma, or whole bOrdered By: Ketan Couch on 10-16-2024 GFR/1.73 sq M.predicted among non-blacks MDRD (S/P/Bld) [Vol rate/Area] 55 mL/min/{1.73_m2} Low >60 [facility] Comment on above: mL/min/1.73m2 CKD-EP I Creatinine Equation (2020) H AND P Exam - [facility] 10-16-2024 H&P Exam - Hospitalist Normal [facility] Hematocrit Auto (Bld) [Volum e fraction]Ordered By: Ketan Couch on 10-16-2024 Hematocrit (Bld) [Volume fraction] 26.7 % Low 37-47 [facility] Hemoglobin measurementOrdere d By: Ketan Couch on 10-16-2024 Hemoglobin (Bld) [Mass/Vol] 8.5 g/dL Low 12.0-15.0 [facility] Immature granulocytes/100 WB C Auto (Bld)Ordered By: [facility] Center[facility] on 10-16-2024 Immature granulocytes/100 WBC (Bld) 0.400 % 0.0-0.9 [facility] Comment on above: IG% - Immature Granu locytes (promyelocytes, myelocytes and metamyelocytes) > 1% indicates that a LEFT SHIFT is Present. Laboratory - Chemistry and C hemistry - challengeOrdered By: Ketan radamesKevin on 10-16-2024 AST [Catalytic activity/Vol] 18 U/L <32 [facility] Lactic Acidon 10-16-2024 Lactate [Moles/Vol] 1.8 mmol/L Normal 0.0-2.0 [facility] Comment on above: Order Comment: Y Performed By: #### M 100.7900, L100.0100, L501.2450, L503.6005, L500.4050 ####[facility] [address] [place], [address] Lactic acid measurementOrder ed By: Ketanmayra Couch on 10-16-2024 Lactate [Moles/Vol] 1.8 mmol/L 0.0-2.0 [facility] Lipaseon 10-16-2024 Lipase [Catalytic activity/Vol] 54 U/L Normal 13-75 [facility] Comment on above: Result Comment: Summer maher note:LIPASE revised reference range effective 22.New Lipase methodology. Expected to produce lower valuesthan the previous assay method.NEW Reference Range: 13 - 75 U/L Performed By: #### M 100.7900, L100.0100, L501.2450, L503.6005, L500.4050 ####[facility] [address] [place], [address] Lipase measurementOrdered By : Ketan Couch on 10-16-2024 Lipase [Catalytic activity/Vol] 54 U/L 13-75 [facility] Comment on above: Please note:LIPASE r evised reference range effective 22. New Lipase methodology. Expected to produce lower values than the previous assay method. NEW Reference Range: 13 - 75 U/L MCV (mean corpuscular volume ) determinationOrdered By: Ketan Couch on 10-16-2024 MCV (RBC) [Entitic vol] 85.9 fL 81-99 [facility] Mean corpuscular hemoglobin (MCH) determinationOrdered By: Ketan Iza on 10-16-2024 MCH (RBC) [Entitic mass] 27.3 pg 27.0-32.0 [facility] Mean corpuscular hemoglobin concentration (MCHC) determinationOrdered By: Ketan Couch on 10-16-2024 MCHC (RBC) [Mass/Vol] 31.8 g/dL Low 32-36 [facility] Mean platelet volume determi nationOrdered By: Ketan Couch on 10-16-2024 Platelet mean volume (Bld) [Entitic vol] 10.2 fL 6.2-12.0 [facility] Monocyte percentageOrdered B y: Ketan Couch on 10-16-2024 Monocytes/100 WBC (Bld) 10.7 % High 0-10 [facility] Neutrophil percentageOrdered By: Ketan Couch on 10-16-2024 Neutrophils/100 WBC (Bld) 65.4 % 47-70 [facility] Nucleated red blood cell per centageOrdered By: Ketan Couch on 10-16-2024 Nucleated RBC/100 WBC (Bld) [Ratio] 0 % 0-5 [facility] Platelet countOrdered By: Humberto Couch on 10-16-2024 Platelets (Bld) [#/Vol] 218 10*3/uL 150-450 [facility] Potassium measurement (mass/ volume)Ordered By: Ketan Couch on 10-16-2024 Potassium (Unsp spec) [Mass/Vol] 3.3 mmol/L 3.3-5.1 [facility] RBC Auto (Bld) [#/Vol]Ordere d By: Ketan Couch on 10-16-2024 RBC (Bld) [#/Vol] 3.11 10*6/uL Low 4.2-5.4 [facility] Serum creatinine measurement (mass/volume)Ordered By: Ketan Couch on 10-16-2024 Creatinine [Mass/Vol] 1.01 mg/dL 0.70-1.20 [place] Serum globulin measurementOr dered By: Ketan Couch on 10-16-2024 Globulin (S) [Mass/Vol] 2.3 g/dL 2.2-4.2 [facility] Serum glucose measurement (m ass/volume)Ordered By: Ketan Couch on 10-16-2024 Glucose [Mass/Vol] 139 mg/dL High 70-99 [facility] Serum or plasma alanine canada otransferase (ALT) measurementOrdered By: Ketan Couch on 10-16-2024 ALT [Catalytic activity/Vol] 13 U/L <35 [facility] Serum or plasma albumin july urement (mass/volume)Ordered By: Ketan Brown on 10-16-2024 Albumin [Mass/Vol] 3.8 g/dL 3.4-4.8 [facility] Serum or plasma albumin/glob ulin mass ratioOrdered By: Ketan Couch on 10-16-2024 Albumin/Globulin [Mass ratio] 1.6 {ratio} 0.9-2.4 [facility] Serum or plasma alkaline kaela sphatase measurementOrdered By: Ketan Couch on 10-16-2024 ALP [Catalytic activity/Vol] 60 U/L 35-104 [facility] Serum or plasma calcium july urement (mass/volume)Ordered By: Ketan Brown on 10-16-2024 Calcium [Mass/Vol] 9.2 mg/dL 7.6-11.0 [facility] Serum or plasma urea nitroge n measurement (mass/volume)Ordered By: Ketan Couch on 10-16-2024 Urea nitrogen [Mass/Vol] 38 mg/dL High 4-19 [facility] Sodium levelOrdered By: Hang Couch on 10-16-2024 Sodium [Moles/Vol] 135 mmol/L 133-145 [facility] Stool Occult Blood iFOBon STOB Positive Normal [facility] Comment on above: Performed By: #### M 100.7900, L100.0100, L501.2450, L503.6005, L500.4050 ####[facility] [address] [facility] [place], [address] Stool gastrointestinal hemog lobin detection by immunologic methodOrdered By: Ketan Couch on 10-16-2024 Lower GI hemoglobin IA Ql (Stl) Positive Abnormal [facility] Total proteinOrdered By: Carson Couch on 10-16-2024 Protein [Mass/Vol] 6.1 g/dL 5.9-8.4 [facility] Type AND Screenon 10-16-2024 ABO and Rh group Nom (Bld) Blood group O Rh(D) positive Normal [facility] Comment on above: Order Comment: HGI Performed By: #### B TS, [id number] ####[facility] [address] [place], [place], [id number] White blood cell (WBC) count Ordered By: Ketan Couch on 10-16-2024 WBC (Bld) [#/Vol] 7.8 10*3/uL 4.4-11.0 [facility] Finger(s) Min 2 Viewson 09-16 Finger(s) Min 2 Views Normal [place] Absolute lymphocyte countOrd ered By: Jose Hdz on 07-26-2024 Lymphocytes Auto (Unsp spec) [#/Vol] 1.04 10*3/uL 0.83-4.51 [facility] Absolute neutrophil countOrd ered By: Jose Hdz on 07-26-2024 Neutrophils (Bld) [#/Vol] 4.6 10*3/uL 2.0-7.7 [facility] Anion gap in Serum or Plasma Ordered By: Jose Hdz on 07-26-2024 Anion gap [Moles/Vol] 13 mmol/L - [place] Automated lymphocyte count a s percentage of total leukocytesOrdered By: Jsoe Hdz on 07-26-2024 Lymphocytes/100 WBC Auto (Unsp spec) 16.0 % Low - [facility] BUN/creatinine ratioOrdered By: Jose Hdz on 07-26-2024 Urea nitrogen/Creatinine [Mass ratio] 19.1 mg/mg 02-04 [facility] Basophil percentageOrdered B y: Jose Hdz on 07-26-2024 Basophils/100 WBC (Bld) 0.8 % 0- [facility] Bilirubin, totalOrdered By: Jose Hdz on 07-26-2024 Bilirubin [Mass/Vol] 0.26 mg/dL 0.00-1.30 [facility] CBC W/Diff, Automatedon 07-17 Absolute Lymph 1.04 X10 3/uL Normal 0.83-4.51 [facility] Comment on above: Order Comment: Order Date: 07/26/24Order Info: 0184-1 - CBCD Performed By: #### L 100.0100, L500.4050, L501.9599, L503.6550, L506.0400 ####[facility] [address] [place], [place], [address] Absolute Neut 4.6 X10 3/uL Normal 2.0-7.7 [facility] Comment on above: Order Comment: Order Date: 07/26/24Order Info: 0184-1 - CBCD Performed By: #### L 100.0100, L500.4050, L501.9520, L503.6550, L506.0400 ####[facility] [address] [place], [address] Basophils/100 WBC (Bld) 0.8 % Normal 0-1 [facility] Comment on above: Order Comment: Order Date: 07/26/24Order Info: 0184-1 - CBCD Performed By: #### L 100.0100, L500.4050, L501.9520, L503.6550, L506.0400 ####[facility] [address] [place], [address] Eosinophils/100 WBC (Bld) 1.4 % Normal 0-5 [facility] Comment on above: Order Comment: Order Date: 07/26/24Order Info: 0184-1 - CBCD Performed By: #### L 100.0100, L500.4050, L501.9520, L503.6550, L506.0400 ####[facility] [address] [place], [address] Erythrocyte distribution width (RBC) [Ratio] 13.8 % Normal 11.6-14.6 [facility] Comment on above: Order Comment: Order Date: 07/26/24Order Info: 0184-1 - CBCD Performed By: #### L 100.0100, L500.4050, L501.9520, L503.6550, L506.0400 ####[facility] [address] [place], [address] Hematocrit (Bld) [Volume fraction] 40.2 % Normal 37-47 [facility] Comment on above: Order Comment: Order Date: 07/26/24Order Info: 0184-1 - CBCD Performed By: #### L 100.0100, L500.4050, L501.9520, L503.6550, L506.0400 ####[facility] [address] [place], [address] Hemoglobin (Bld) [Mass/Vol] 12.6 g/dL Normal 12.0-15.0 [facility] Comment on above: Order Comment: Order Date: 07/26/24Order Info: 018- - CBCD Performed By: #### L 100.0100, L500.4050, L501.9520, L503.6550, L506.0400 ####[facility] [address] [place], [address] IG% 0.300 Normal 0.0-0.9 [facility] Comment on above: Order Comment: Order Date: 07/26/24Order Info: 018- - CBCD Result Comment: IG% - Immature Granulocytes (promyelocytes, myelocytes andmetamyelocytes) > 1% indicates that a LEFT SHIFT is Present. Performed By: #### L 100.0100, L500.4050, L501.9520, L503.6550, L506.0400 ####[facility] [address] [place], [address] Lymphocytes/100 WBC (Bld) 16.0 % Low 19-41 [facility] Comment on above: Order Comment: Order Date: 07/26/24Order Info: 018- - CBCD Performed By: #### L 100.0100, L500.4050, L501.9520, L503.6550, L506.0400 ####[facility] [address] [place], [address] MCH (RBC) [Entitic mass] 27.9 pg Normal 27.0-32.0 [facility] Comment on above: Order Comment: Order Date: 07/26/24Order Info: 018- - CBCD Performed By: #### L 100.0100, L500.4050, L501.9520, L503.6550, L506.0400 ####[facility] [address] [place], [address] MCHC (RBC) [Mass/Vol] 31.3 g/dL Low 32-36 [facility] Comment on above: Order Comment: Order Date: 07/26/24Order Info: 0184-1 - CBCD Performed By: #### L 100.0100, L500.4050, L501.9520, L503.6550, L506.0400 ####[facility] [address] [place], [address] MCV (RBC) [Entitic vol] 89.1 fL Normal 81-99 [facility] Comment on above: Order Comment: Order Date: 07/26/24Order Info: 018-1 - CBCD Performed By: #### L 100.0100, L500.4050, L501.9520, L503.6550, L506.0400 ####[facility] [address] [place], [address] Monocytes/100 WBC (Bld) 10.6 % High 0-10 [facility] Comment on above: Order Comment: Order Date: 07/26/24Order Info: 018- - CBCD Performed By: #### L 100.0100, L500.4050, L501.9520, L503.6550, L506.0400 ####[facility] [address] [place], [address] Neutrophils/100 WBC (Bld) 70.9 % High 47-70 [facility] Comment on above: Order Comment: Order Date: 07/26/24Order Info: 0184-1 - CBCD Performed By: #### L 100.0100, L500.4050, L501.9520, L503.6550, L506.0400 ####[facility] [address] [place], [address] Nucleated RBC (Bld) [#/Vol] 0 10*3/uL Normal 0-5 [facility] Comment on above: Order Comment: Order Date: 07/26/24Order Info: 0184-1 - CBCD Performed By: #### L 100.0100, L500.4050, L501.9520, L503.6550, L506.0400 ####[facility] [address] [place], [address] Platelet mean volume (Bld) [Entitic vol] 10.5 fL Normal 6.2-12.0 [facility] Comment on above: Order Comment: Order Date: 07/26/24Order Info: 0184-1 - CBCD Performed By: #### L 100.0100, L500.4050, L501.9520, L503.6550, L506.0400 ####[facility] [address] [place], [address] Platelets (Bld) [#/Vol] 279 10*3/uL Normal 150-450 [facility] Comment on above: Order Comment: Order Date: 07/26/24Order Info: 0184-1 - CBCD Performed By: #### L 100.0100, L500.4050, L501.9520, L503.6550, L506.0400 ####[facility] [address] [place], [address] RBC (Bld) [#/Vol] 4.51 10*6/uL Normal 4.2-5.4 [facility] Comment on above: Order Comment: Order Date: 07/26/24Order Info: 0184-1 - CBCD Performed By: #### L 100.0100, L500.4050, L501.9520, L503.6550, L506.0400 ####[facility] [address] [place], [address] RDW SD 44.8 fl High 35.1-43.9 [facility] Comment on above: Order Comment: Order Date: 07/26/24Order Info: 0184-1 - CBCD Performed By: #### L 100.0100, L500.4050, L501.9520, L503.6550, L506.0400 ####[facility] [address] [place], [address] WBC (Bld) [#/Vol] 6.5 10*3/uL Normal 4.4-11.0 [facility] Comment on above: Order Comment: Order Date: 07/26/24Order Info: 0184- - CBCD Performed By: #### L 100.0100, L500.4050, L501.9520, L503.6550, L506.0400 ####[facility] [address] [place], [address] Carbon dioxide, total [Moles /volume] in Central venous bloodOrdered By: Jose Hdz on 07-26-2024 CO2 [Moles/Vol] 24.1 mmol/L 21.0-32.0 [facility] Chloride assayOrdered By: Amol Hdz on 07-26-2024 Chloride [Moles/Vol] 96 mmol/L Low 98-108 [facility] Comprehensive Metabolic Prof ilon 07-26-2024 Albumin [Mass/Vol] 4.4 g/dL Normal 3.4-4.8 [facility] Comment on above: Order Comment: Order Date: 07/26/24Order Info: 0786-1 - CMPOrder Info: 3016-3 - TSHOrder Info: [id number] - FEROrder Info: 3024-7 - T4F Performed By: #### L 100.0100, L500.4050, L501.9520, L503.6550, L506.0400 ####[facility] [address] [place], [address] Albumin/Globulin [Mass ratio] 1.4 {ratio} Normal 0.9-2.4 [facility] Comment on above: Order Comment: Order Date: 07/26/24Order Info: 0786-1 - CMPOrder Info: 3016-3 - TSHOrder Info: 2276-4 - FEROrder Info: 7 - T4F Performed By: #### L 100.0100, L500.4050, L501.9520, L503.6550, L506.0400 ####[facility] [address] [place], [address] ALK PHOS 89 U/L Normal 35-104 [facility] Comment on above: Order Comment: Order Date: 07/26/24Order Info: 0786-1 - CMPOrder Info: 3 - TSHOrder Info: [id number] - FEROrder Info: 7 - T4F Performed By: #### L 100.0100, L500.4050, L501.9520, L503.6550, L506.0400 ####[facility] [address] [place], [address] ALT [Catalytic activity/Vol] 14 U/L Normal <=34 [facility] Comment on above: Order Comment: Order Date: 07/26/24Order Info: 0786-1 - CMPOrder Info: 3 - TSHOrder Info: [id number] - FEROrder Info: 3023- - T4F Performed By: #### L 100.0100, L500.4050, L501.9520, L503.6550, L506.0400 ####[facility] [address] [place], [address] AST [Catalytic activity/Vol] 22 U/L Normal <=31 [facility] Comment on above: Order Comment: Order Date: 07/26/24Order Info: 0786-1 - CMPOrder Info: 3 - TSHOrder Info: [id number] - FEROrder Info: 3023-7 - T4F Performed By: #### L 100.0100, L500.4050, L501.9520, L503.6550, L506.0400 ####[facility] [address] [place], [address] Bilirubin [Mass/Vol] 0.26 mg/dL Normal 0.00-1.30 [facility] Comment on above: Order Comment: Order Date: 07/26/24Order Info: 0786-1 - CMPOrder Info: 3015-3 - TSHOrder Info: 2275-4 - FEROrder Info: 3024-7 - T4F Performed By: #### L 100.0100, L500.4050, L501.9520, L503.6550, L506.0400 ####[facility] [address] [place], [address] BUN/CRE 19.1 RATIO Normal 10-20 [facility] Comment on above: Order Comment: Order Date: 07/26/24Order Info: 07-1 - CMPOrder Info: [id number] - TSHOrder Info: 4 - FEROrder Info: 3024-7 - T4F Performed By: #### L 100.0100, L500.4050, L501.9520, L503.6550, L506.0400 ####[facility] [address] [place], [address] Calcium [Mass/Vol] 9.9 mg/dL Normal 7.6-11.0 [facility] Comment on above: Order Comment: Order Date: 07/26/24Order Info: 0786-1 - CMPOrder Info: 3015-3 - TSHOrder Info: 2275-4 - FEROrder Info: 3024-7 - T4F Performed By: #### L 100.0100, L500.4050, L501.9520, L503.6550, L506.0400 ####[facility] [address] [place], [address] Chloride [Moles/Vol] 96 mmol/L Low 98-108 [facility] Comment on above: Order Comment: Order Date: 07/26/24Order Info: 0786-1 - CMPOrder Info: 6-3 - TSHOrder Info: 227-4 - FEROrder Info: 3024-7 - T4F Performed By: #### L 100.0100, L500.4050, L501.9520, L503.6550, L506.0400 ####[facility] [address] [place], [address] CO2 [Moles/Vol] 24.1 mmol/L Normal 21.0-32.0 [facility] Comment on above: Order Comment: Order Date: 07/26/24Order Info: 0786-1 - CMPOrder Info: 3016-3 - TSHOrder Info: 2276-4 - FEROrder Info: 3024-7 - T4F Performed By: #### L 100.0100, L500.4050, L501.9520, L503.6550, L506.0400 ####[facility] [address] [place], [address] Creatinine [Mass/Vol] 0.71 mg/dL Normal 0.70-1.20 [place] Comment on above: Order Comment: Order Date: 07/26/24Order Info: 07-1 - CMPOrder Info: 3015-3 - TSHOrder Info: 2276-4 - FEROrder Info: 3024-7 - T4F Performed By: #### L 100.0100, L500.4050, L501.9520, L503.6550, L506.0400 ####[facility] [address] [place], [address] GAP 13 Normal 5-15 [facility] Comment on above: Order Comment: Order Date: 07/26/24Order Info: 0786-1 - CMPOrder Info: 3015-3 - TSHOrder Info: 2276-4 - FEROrder Info: 3024-7 - T4F Performed By: #### L 100.0100, L500.4050, L501.9520, L503.6550, L506.0400 ####[facility] [address] [place], [address] GFR/1.73 sq M.predicted among non-blacks MDRD (S/P/Bld) [Vol rate/Area] 85 mL/min/{1.73_m2} Normal >60 [facility] Comment on above: Order Comment: Order Date: 07/26/24Order Info: 0786-1 - CMPOrder Info: 3015-3 - TSHOrder Info: 2275-4 - FEROrder Info: 3024-7 - T4F Result Comment: mL/m in/1.73m2 CKD-EPI Creatinine Equation (2020) Performed By: #### L 100.0100, L500.4050, L501.9520, L503.6550, L506.0400 ####[facility] [address] [place], [address] Globulin (S) [Mass/Vol] 3.0 g/dL Normal 2.2-4.2 [facility] Comment on above: Order Comment: Order Date: 07/26/24Order Info: 785-1 - CMPOrder Info: 3 - TSHOrder Info: 2275-07 - FEROrder Info: 3024-7 - T4F Performed By: #### L 100.0100, L500.4050, L501.9520, L503.6550, L506.0400 ####[facility] [address] [place], [address] Glucose [Mass/Vol] 101 mg/dL High 70-99 [facility] Comment on above: Order Comment: Order Date: 07/26/24Order Info: 07-1 - CMPOrder Info: 3 - TSHOrder Info: 4 - FEROrder Info: 3024-7 - T4F Performed By: #### L 100.0100, L500.4050, L501.9520, L503.6550, L506.0400 ####[facility] [address] [place], [address] Potassium [Moles/Vol] 3.4 mmol/L Normal 3.3-5.1 [place] Comment on above: Order Comment: Order Date: 07/26/24Order Info: 86-1 - CMPOrder Info: 3016-3 - TSHOrder Info: 2276-4 - FEROrder Info: 3024-7 - T4F Performed By: #### L 100.0100, L500.4050, L501.9520, L503.6550, L506.0400 ####[facility] [address] [place], [address] Sodium [Moles/Vol] 133 mmol/L Normal 133-145 [facility] Comment on above: Order Comment: Order Date: 07/26/24Order Info: 0786-1 - CMPOrder Info: 6-3 - TSHOrder Info: 2274 - FEROrder Info: 3024-7 - T4F Performed By: #### L 100.0100, L500.4050, L501.9520, L503.6550, L506.0400 ####[facility] [address] [place], [address] T PROT 7.4 g/dL Normal 5.9-8.4 [facility] Comment on above: Order Comment: Order Date: 07/26/24Order Info: 86-1 - CMPOrder Info: 3015-3 - TSHOrder Info: 2275-07 - FEROrder Info: 3024-7 - T4F Performed By: #### L 100.0100, L500.4050, L501.9520, L503.6550, L506.0400 ####[facility] [address] [place], [address] Urea nitrogen [Mass/Vol] 14 mg/dL Normal 4-19 [facility] Comment on above: Order Comment: Order Date: 07/26/24Order Info: 86-1 - CMPOrder Info: 6-3 - TSHOrder Info: 4 - FEROrder Info: 3024-7 - T4F Performed By: #### L 100.0100, L500.4050, L501.9520, L503.6550, L506.0400 ####[facility] [address] [place], [address] Eosinophil percentageOrdered By: Jose Hdz on 07-26-2024 Eosinophils/100 WBC (Bld) 1.4 % 0-5 [facility] Erythrocyte distribution wid th (RBC) [Ratio]Ordered By: Jose Hdz on 07-26-2024 Erythrocyte distribution width (RBC) [Entitic vol] 44.8 fL High 35.1-43.9 [facility] Erythrocyte distribution wid th ratioOrdered By: Jose Hdz on 07-26-2024 Erythrocyte distribution width (RBC) [Ratio] 13.8 % 11.6-14.6 [facility] Erythrocyte distribution wid th standard deviationOrdered By: Jose Hdz on 07-26-2024 Erythrocyte distribution width (RBC) [Ratio] 44.8 fl High 35.1-43.9 [facility] Ferritinon 07-26-2024 Ferritin [Mass/Vol] 38 ng/mL Normal 22-378 [facility] Comment on above: Order Comment: Order Date: 07/26/24Order Info: 0786-1 - CMPOrder Info: 3016-3 - TSHOrder Info: 2276-4 - FEROrder Info: 3024-7 - T4F Performed By: #### L 100.0100, L500.4050, L501.9520, L503.6550, L506.0400 ####[facility] [address] [place], [address] GFR/1.73 sq M.predicted toni g non-blacks MDRD (S/P/Bld) [Vol rate/Area]Ordered By: Jose Hdz on 07-26-2024 Estimated GFR (MDRD) Non-Af Amer 85 >60 [facility] Comment on above: mL/min/1.73m2 CKD-EP I Creatinine Equation (2020) Glomerular filtration rate ( GFR) estimation/1.73 sq m using serum, plasma, or whole bOrdered By: Jose Hdz on 07-26-2024 GFR/1.73 sq M.predicted among non-blacks MDRD (S/P/Bld) [Vol rate/Area] 85 mL/min/{1.73_m2} >60 [facility] Comment on above: mL/min/1.73m2 CKD-EP I Creatinine Equation (2020) Hematocrit Auto (Bld) [Volum e fraction]Ordered By: Jose Hdz on 07-26-2024 Hematocrit (Bld) [Volume fraction] 40.2 % 37-47 [facility] Hemoglobin measurementOrdere d By: Jose Hdz on 07-26-2024 Hemoglobin (Bld) [Mass/Vol] 12.6 g/dL 12.0-15.0 [facility] Immature granulocytes/100 WB C Auto (Bld)Ordered By: Jose Hdz on 07-26-2024 Immature granulocytes/100 WBC (Bld) 0.300 % 0.0-0.9 [facility] Comment on above: IG% - Immature Granu locytes (promyelocytes, myelocytes and metamyelocytes) > 1% indicates that a LEFT SHIFT is Present. Laboratory - Chemistry and C hemistry - challengeOrdered By: Jose Hdz on 07-26-2024 AST [Catalytic activity/Vol] 22 U/L <32 [facility] Lymphocytes Auto (Unsp spec) [#/Vol]Ordered By: Jose Hdz on 07-26-2024 Lymphocytes (Bld) [#/Vol] 1.04 10*3/uL 0.83-4.51 [facility] Lymphocytes/100 WBC Auto (Un sp spec)Ordered By: Jose Hdz on 07-26-2024 Lymphocytes/100 WBC (Bld) 16.0 % Low 19-41 [facility] MCV (mean corpuscular volume ) determinationOrdered By: Jose Hdz on 07-26-2024 MCV (RBC) [Entitic vol] 89.1 fL 81-99 [facility] Mean corpuscular hemoglobin (MCH) determinationOrdered By: Jose Hdz on 07-26-2024 MCH (RBC) [Entitic mass] 27.9 pg 27.0-32.0 [facility] Mean corpuscular hemoglobin concentration (MCHC) determinationOrdered By: Jose Hdz on 07-26-2024 MCHC (RBC) [Mass/Vol] 31.3 g/dL Low 32-36 [place] Mean platelet volume determi nationOrdered By: Jose Hdz on 07-26-2024 Platelet mean volume (Bld) [Entitic vol] 10.5 fL 6.2-12.0 [facility] Monocyte percentageOrdered B y: Jose Hdz on 07-26-2024 Monocytes/100 WBC (Bld) 10.6 % High 0-10 [facility] Neutrophil percentageOrdered By: Jose Hdz on 07-26-2024 Neutrophils/100 WBC (Bld) 70.9 % High 47-70 [facility] Nucleated red blood cell per centageOrdered By: Jose Hdz on 07-26-2024 Nucleated RBC/100 WBC (Bld) [Ratio] 0 % 0-5 [facility] Platelet countOrdered By: Amol Hdz on 07-26-2024 Platelets (Bld) [#/Vol] 279 10*3/uL 150-450 [facility] Potassium (Unsp spec) [Mass/ Vol]Ordered By: Jose Hdz on 07-26-2024 Potassium [Moles/Vol] 3.4 mmol/L 3.3-5.1 [place] Potassium measurement (mass/ volume)Ordered By: Jose Hdz on 07-26-2024 Potassium (Unsp spec) [Mass/Vol] 3.4 mmol/L 3.3-5.1 [facility] RBC Auto (Bld) [#/Vol]Ordere d By: Jose Hdz on 07-26-2024 RBC (Bld) [#/Vol] 4.51 10*6/uL 4.2-5.4 [facility] Serum creatinine measurement (mass/volume)Ordered By: Jose Hdz on 07-26-2024 Creatinine [Mass/Vol] 0.71 mg/dL 0.70-1.20 [place] Serum globulin measurementOr dered By: Jose Hdz on 07-26-2024 Globulin (S) [Mass/Vol] 3.0 g/dL 2.2-4.2 [facility] Serum glucose measurement (m ass/volume)Ordered By: Jose Hdz on 07-26-2024 Glucose [Mass/Vol] 101 mg/dL High 70-99 [facility] Serum or plasma alanine [place] otransferase (ALT) measurementOrdered By: Jose Hdz on 07-26-2024 ALT [Catalytic activity/Vol] 14 U/L <35 [facility] Serum or plasma albumin july urement (mass/volume)Ordered By: Jose Hdz on 07-26-2024 Albumin [Mass/Vol] 4.4 g/dL 3.4-4.8 [facility] Serum or plasma albumin/glob ulin mass ratioOrdered By: Jose Hdz on 07-26-2024 Albumin/Globulin [Mass ratio] 1.4 {ratio} 0.9-2.4 [facility] Serum or plasma alkaline kaela sphatase measurementOrdered By: Jose Hdz on 07-26-2024 ALP [Catalytic activity/Vol] 89 U/L 35-104 [facility] Serum or plasma calcium july urement (mass/volume)Ordered By: Jose Hdz on 07-26-2024 Calcium [Mass/Vol] 9.9 mg/dL 7.6-11.0 [facility] Serum or plasma ferritin laura surement (mass/volume)Ordered By: Jose Hdz on 07-26-2024 Ferritin [Mass/Vol] 38 ng/mL 22-378 [facility] Serum or plasma urea nitroge n measurement (mass/volume)Ordered By: Jose Hdz on 07-26-2024 Urea nitrogen [Mass/Vol] 14 mg/dL 4-19 [facility] Sodium levelOrdered By: Jose Hdz on 07-26-2024 Sodium [Moles/Vol] 133 mmol/L 133-145 [facility] T4 Free Directon 07-26-2024 T4 FREE DIRECT 1.30 ng/dL Normal 0.76-1.46 [facility] Comment on above: Order Comment: Order Date: 07/26/24Order Info: 0786-1 - CMPOrder Info: 3016-3 - TSHOrder Info: 2276-4 - FEROrder Info: 3024-7 - T4F Performed By: #### L 100.0100, L500.4050, L501.9520, L503.6550, L506.0400 ####[facility] [address] [place], [address] T4 freeOrdered By: Jose payton on 07-26-2024 Free T4 [Mass/Vol] 1.30 ng/dL 0.76-1.46 [facility] TSH DL <= 0.005 mIU/L QnOrde red By: Jose Hdz on 07-26-2024 Thyroid Stimulating Hormone (TSH) 1.030 uIU/mL 0.300-4.200 [facility] TSH Qn 1.030 uIU/mL 0.300-4.200 [facility] Thyroid Stim Hormone (TSH)on 07-26-2024 TSH 1.030 uIU/mL Normal 0.300-4.200 [facility] Comment on above: Order Comment: Order Date: 07/26/24Order Info: 0786-1 - CMPOrder Info: 3016-3 - TSHOrder Info: 2276-4 - FEROrder Info: 3024-7 - T4F Performed By: #### L 100.0100, L500.4050, L501.9520, L503.6550, L506.0400 ####[facility] [address] [place], [address] Total proteinOrdered By: Lluvia Hdz on 07-26-2024 Protein [Mass/Vol] 7.4 g/dL 5.9-8.4 [facility] White blood cell (WBC) count Ordered By: Jose Hdz on 07-26-2024 WBC (Bld) [#/Vol] 6.5 10*3/uL 4.4-11.0 [facility] Basic Metabolic Profile (BMP )on 07-19-2024 BUN Normal 4-19 [facility] Comment on above: Result Comment: Jaquelin elled via OM: Ordered Performed By: #### L 500.2500, L100.0500 ####[facility] [address] [place], [address] BUN/CRE Normal 10-20 [facility] Comment on above: Result Comment: Jaquelin elled via OM: MD Ordered Performed By: #### L 500.2500, L100.0500 ####[facility] [address] [place], [address] Calcium Normal 7.6-11.0 [facility] Comment on above: Result Comment: Jaquelin elled via OM: MD Ordered Performed By: #### L 500.2500, L100.0500 ####[facility] [address] [place], [address] CL Normal 98-108 [facility] Comment on above: Result Comment: Canc elled via OM: MD Ordered Performed By: #### L 500.2500, L100.0500 ####[facility] [address] [place], [address] CO2 Normal 21.0-32.0 [facility] Comment on above: Result Comment: Canc elled via OM: MD Ordered Performed By: #### L 500.2500, L100.0500 ####[facility] [address] [place], [address] CREAT,SERUM Normal 0.70-1.20 [facility] Comment on above: Result Comment: Canc elled via OM: MD Ordered Performed By: #### L 500.2500, L100.0500 ####[facility] [address] [place], [address] eGFR Normal >60 [facility] Comment on above: Result Comment: Canc elled via OM: MD Ordered Performed By: #### L 500.2500, L100.0500 ####[facility] [address] [place], [address] GAP Normal 5-15 [facility] Comment on above: Result Comment: Canc elled via OM: MD Ordered Performed By: #### L 500.2500, L100.0500 ####[facility] [address] [place], [address] GLU Normal 70-99 [facility] Comment on above: Result Comment: Canc elled via OM: MD Ordered Performed By: #### L 500.2500, L100.0500 ####[facility] [address] [place], [address] Potassium Normal 3.3-5.1 [facility] Comment on above: Result Comment: Canc elled via OM: MD Ordered Performed By: #### L 500.2500, L100.0500 ####[facility] [address] [place], [address] Basic Metabolic Profile (BMP) Normal 133-145 [facility] Comment on above: Result Comment: Canc elled via OM: MD Ordered Performed By: #### L 500.2500, L100.0500 ####[facility] [address] [place], [address] CBC-Complete Blood Cnt No Di ffon 07-19-2024 HCT Normal 37-47 [facility] Comment on above: Result Comment: Canc elled via OM: MD Ordered Performed By: #### L 500.2500, L100.0500 ####[facility] [address] [place], [address] HGB Normal 12.0-15.0 [facility] Comment on above: Result Comment: Canc elled via OM: MD Ordered Performed By: #### L 500.2500, L100.0500 ####[facility] [address] [place], [address] MCH Normal 27.0-32.0 [facility] Comment on above: Result Comment: Canc elled via OM: MD Ordered Performed By: #### L 500.2500, L100.0500 ####[facility] [address] [place], [address] MCHC Normal 32-36 [facility] Comment on above: Result Comment: Canc elled via OM: MD Ordered Performed By: #### L 500.2500, L100.0500 ####[facility] [address] [place], [address] MCV Normal 81-99 [facility] Comment on above: Result Comment: Canc elled via OM: MD Ordered Performed By: #### L 500.2500, L100.0500 ####[facility] [address] [place], [address] PLT Normal 150-450 [facility] Comment on above: Result Comment: Canc elled via OM: MD Ordered Performed By: #### L 500.2500, L100.0500 ####[facility] [address] [place], [address] RBC Normal 4.2-5.4 [facility] Comment on above: Result Comment: Canc elled via OM: MD Ordered Performed By: #### L 500.2500, L100.0500 ####[facility] [address] [place], [address] RDW CV Normal 11.6-14.6 [facility] Comment on above: Result Comment: Canc elled via OM: MD Ordered Performed By: #### L 500.2500, L100.0500 ####[facility] [address] [place], [address] RDW SD Normal 35.1-43.9 [facility] Comment on above: Result Comment: Canc elled via OM: MD Ordered Performed By: #### L 500.2500, L100.0500 ####[facility] [address] [place], [address] WBC Normal 4.4-11.0 [facility] Comment on above: Result Comment: Canc elled via OM: MD Ordered Performed By: #### L 500.2500, L100.0500 ####[facility] [address] [place], [address] Basic Metabolic Profile (BMP )on 07-18-2024 BUN Normal 4-19 [facility] Comment on above: Result Comment: Canc elled via OM: MD Ordered Performed By: #### L 500.2500 ####[facility] [address] [place], [address] BUN/CRE Normal 10-20 [facility] Comment on above: Result Comment: Canc elled via OM: MD Ordered Performed By: #### L 500.2500 ####[facility] [address] [place], [address] Calcium Normal 7.6-11.0 [facility] Comment on above: Result Comment: Canc elled via OM: MD Ordered Performed By: #### L 500.2500 ####[facility] [address] [place], [address] CL Normal 98-108 [facility] Comment on above: Result Comment: Canc elled via OM: MD Ordered Performed By: #### L 500.2500 ####[facility] [address] [place], [address] CO2 Normal 21.0-32.0 [facility] Comment on above: Result Comment: Canc elled via OM: MD Ordered Performed By: #### L 500.2500 ####[facility] [address] [place], [address] CREAT,SERUM Normal 0.70-1.20 [facility] Comment on above: Result Comment: Canc elled via OM: MD Ordered Performed By: #### L 500.2500 ####[facility] [address] [place], [address] eGFR Normal >60 [facility] Comment on above: Result Comment: Canc elled via OM: MD Ordered Performed By: #### L 500.2500 ####[facility] [address] [place], [address] GAP Normal 5-15 [facility] Comment on above: Result Comment: Canc elled via OM: MD Ordered Performed By: #### L 500.2500 ####[facility] [address] [place], [address] GLU Normal 70-99 [facility] Comment on above: Result Comment: Canc elled via OM: MD Ordered Performed By: #### L 500.2500 ####[facility] [address] [place], [address] Potassium Normal 3.3-5.1 [facility] Comment on above: Result Comment: Canc elled via OM: MD Ordered Performed By: #### L 500.2500 ####[facility] [address] [place], [address] Basic Metabolic Profile (BMP) Normal 133-145 [facility] Comment on above: Result Comment: Canc elled via OM: MD Ordered Performed By: #### L 500.2500 ####[facility] [address] [place], [address] Anion gap in Serum or Plasma Ordered By: Brodie Swartz on 07-17-2024 Anion gap [Moles/Vol] 12 mmol/L 5-15 [place] BUN/creatinine ratioOrdered By: Brodie Swartz on 07-17-2024 Urea nitrogen/Creatinine [Mass ratio] 14.8 mg/mg 10- [facility] Basic Metabolic Profile (BMP )on 07-17-2024 BUN/CRE 14.8 RATIO Normal - [facility] Comment on above: Performed By: #### L 500.2500 ####[facility] [address] [place], [address] Calcium [Mass/Vol] 9.6 mg/dL Normal 7.6-11.0 [facility] Comment on above: Performed By: #### L 500.2500 ####[facility] [address] [place], [address] Chloride [Moles/Vol] 101 mmol/L Normal 98-108 [facility] Comment on above: Performed By: #### L 500.2500 ####[facility] [address] [place], [address] CO2 [Moles/Vol] 21.0 mmol/L Normal 21.0-32.0 [facility] Comment on above: Performed By: #### L 500.2500 ####[facility] [address] [place], [address] Creatinine [Mass/Vol] 0.68 mg/dL Low 0.70-1.20 [place] Comment on above: Performed By: #### L 500.2500 ####[facility] [address] [place], [address] ECRCL 43.30 ml/min Low 50-250 [facility] Comment on above: Performed By: #### L 500.2500 ####[facility] [address] [place], [address] GAP 12 Normal 5-15 [facility] Comment on above: Performed By: #### L 500.2500 ####[facility] [address] [place], [address] GFR/1.73 sq M.predicted among non-blacks MDRD (S/P/Bld) [Vol rate/Area] 86 mL/min/{1.73_m2} Normal >60 [facility] Comment on above: Result Comment: mL/m in/1.73m2 CKD-EPI Creatinine Equation (2020) Performed By: #### L 500.2500 ####[facility] [address] [place], [place], [address] Glucose [Mass/Vol] 93 mg/dL Normal 70-99 [facility] Comment on above: Performed By: #### L 500.2500 ####[facility] [address] [place], [address] Potassium [Moles/Vol] 4.0 mmol/L Normal 3.3-5.1 [place] Comment on above: Performed By: #### L 500.2500 ####[facility] [address] [place], [address] Sodium [Moles/Vol] 134 mmol/L Normal 133-145 [facility] Comment on above: Performed By: #### L 500.2500 ####[facility] [address] [place], [address] Urea nitrogen [Mass/Vol] 10 mg/dL Normal 4-19 [facility] Comment on above: Performed By: #### L 500.2500 ####[facility] [address] [place], [address] CBC-Complete Blood Cnt No Di ffon 07-17-2024 Erythrocyte distribution width (RBC) [Ratio] 13.4 % Normal 11.6-14.6 [facility] Comment on above: Performed By: #### L 100.0500 ####[facility] [address] [place], [address] Hematocrit (Bld) [Volume fraction] 38.6 % Normal 37-47 [facility] Comment on above: Performed By: #### L 100.0500 ####[facility] [address] [place], [address] Hemoglobin (Bld) [Mass/Vol] 12.7 g/dL Normal 12.0-15.0 [facility] Comment on above: Performed By: #### L 100.0500 ####[facility] [address] [place], [address] MCH (RBC) [Entitic mass] 28.2 pg Normal 27.0-32.0 [facility] Comment on above: Performed By: #### L 100.0500 ####[facility] [address] [place], [address] MCHC (RBC) [Mass/Vol] 32.9 g/dL Normal 32-36 [place] Comment on above: Performed By: #### L 100.0500 ####[facility] [address] [place], [address] MCV (RBC) [Entitic vol] 85.8 fL Normal 81-99 [facility] Comment on above: Performed By: #### L 100.0500 ####[facility] [address] [place], [address] Platelet mean volume (Bld) [Entitic vol] 10.2 fL Normal 6.2-12.0 [facility] Comment on above: Performed By: #### L 100.0500 ####[facility] [address] [place], [address] Platelets (Bld) [#/Vol] 243 10*3/uL Normal 150-450 [facility] Comment on above: Performed By: #### L 100.0500 ####[facility] [address] [place], [address] RBC (Bld) [#/Vol] 4.50 10*6/uL Normal 4.2-5.4 [facility] Comment on above: Performed By: #### L 100.0500 ####[facility] [address] [place], [address] RDW SD 41.6 fl Normal 35.1-43.9 [facility] Comment on above: Performed By: #### L 100.0500 ####[facility] [address] [place], [address] WBC (Bld) [#/Vol] 6.0 10*3/uL Normal 4.4-11.0 [facility] Comment on above: Performed By: #### L 100.0500 ####[facility] [address] [place], [address] Carbon dioxide, total [Moles /volume] in Central venous bloodOrdered By: Brodie Swartz on 07-17-2024 CO2 [Moles/Vol] 21.0 mmol/L 21.0-32.0 [facility] Chloride assayOrdered By: Ayaan Swartz on 07-17-2024 Chloride [Moles/Vol] 101 mmol/L 98-108 [facility] Discharge Instructionon 04-0 Discharge Instruction Normal [place] Erythrocyte distribution wid th ratioOrdered By: Brodie Swartz on 07-17-2024 Erythrocyte distribution width (RBC) [Ratio] 13.4 % 11.6-14.6 [facility] Erythrocyte distribution wid th standard deviationOrdered By: Brodie Swartz on 07-17-2024 Erythrocyte distribution width (RBC) [Entitic vol] 41.6 fL 35.1-43.9 [facility] Erythrocyte distribution width (RBC) [Ratio] 41.6 fl 35.1-43.9 [facility] Estimation of creatinine kalee aranceOrdered By: Brodie Swartz on 07-17-2024 Estimated Creatinine Clearance Calc 43.30 ml/min Low 50-250 [facility] GFR/1.73 sq M.predicted toni g non-blacks MDRD (S/P/Bld) [Vol rate/Area]Ordered By: Brodie Swartz on 07-17-2024 Estimated GFR (MDRD) Non-Af Amer 86 >60 [facility] Comment on above: mL/min/1.73m2 CKD-EP I Creatinine Equation (2020) Glomerular filtration rate ( GFR) estimation/1.73 sq m using serum, plasma, or whole bOrdered By: Brodie Swartz on 07-17-2024 GFR/1.73 sq M.predicted among non-blacks MDRD (S/P/Bld) [Vol rate/Area] 86 mL/min/{1.73_m2} >60 [facility] Comment on above: mL/min/1.73m2 CKD-EP I Creatinine Equation (2020) Hematocrit Auto (Bld) [Volum e fraction]Ordered By: Brodie Swartz on 07-17-2024 Hematocrit (Bld) [Volume fraction] 38.6 % 37-47 [facility] Hemoglobin measurementOrdere d By: Brodie Swartz on 07-17-2024 Hemoglobin (Bld) [Mass/Vol] 12.7 g/dL 12.0-15.0 [facility] MCV (mean corpuscular volume ) determinationOrdered By: Brodie Swartz on 07-17-2024 MCV (RBC) [Entitic vol] 85.8 fL 81-99 [facility] Mean corpuscular hemoglobin (MCH) determinationOrdered By: Brodie Swartz on 07-17-2024 MCH (RBC) [Entitic mass] 28.2 pg 27.0-32.0 [facility] Mean corpuscular hemoglobin concentration (MCHC) determinationOrdered By: Brodie Swartz on 07-17-2024 MCHC (RBC) [Mass/Vol] 32.9 g/dL 32-36 [place] Mean platelet volume determi nationOrdered By: Brodie Swartz on 07-17-2024 Platelet mean volume (Bld) [Entitic vol] 10.2 fL 6.2-12.0 [facility] Platelet countOrdered By: Ayaan Swartz on 07-17-2024 Platelets (Bld) [#/Vol] 243 10*3/uL 150-450 [facility] Potassium (Unsp spec) [Mass/ Vol]Ordered By: Brodie Swartz on 07-17-2024 Potassium [Moles/Vol] 4.0 mmol/L 3.3-5.1 [place] Potassium measurement (mass/ volume)Ordered By: Brodie Swartz on 07-17-2024 Potassium (Unsp spec) [Mass/Vol] 4.0 mmol/L 3.3-5.1 [facility] RBC Auto (Bld) [#/Vol]Ordere d By: Brodie Swartz on 07-17-2024 RBC (Bld) [#/Vol] 4.50 10*6/uL 4.2-5.4 [facility] Serum creatinine measurement (mass/volume)Ordered By: Brodie Swartz on 07-17-2024 Creatinine [Mass/Vol] 0.68 mg/dL Low 0.70-1.20 [place] Serum glucose measurement (m ass/volume)Ordered By: Brodie Swartz on 07-17-2024 Glucose [Mass/Vol] 93 mg/dL 70-99 [facility] Serum or plasma calcium july urement (mass/volume)Ordered By: Brodie Swartz on 07-17-2024 Calcium [Mass/Vol] 9.6 mg/dL 7.6-11.0 [facility] Serum or plasma urea nitroge n measurement (mass/volume)Ordered By: Brodie Swartz on 07-17-2024 Urea nitrogen [Mass/Vol] 10 mg/dL 4-19 [facility] Sodium levelOrdered By: Charles Swartz on 07-17-2024 Sodium [Moles/Vol] 134 mmol/L 133-145 [facility] White blood cell (WBC) count Ordered By: Brodie Swartz on 07-17-2024 WBC (Bld) [#/Vol] 6.0 10*3/uL 4.4-11.0 [facility] Absolute lymphocyte countOrd ered By: Leonora Mojica on 07-16-2024 Lymphocytes Auto (Unsp spec) [#/Vol] 1.03 10*3/uL 0.83-4.51 [facility] Absolute neutrophil countOrd ered By: Leonora Mojica on 07-16-2024 Neutrophils (Bld) [#/Vol] 3.4 10*3/uL 2.0-7.7 [facility] Automated lymphocyte count a s percentage of total leukocytesOrdered By: Leonora Mojica on 07-16-2024 Lymphocytes/100 WBC Auto (Unsp spec) 20.3 % 19-41 [facility] Basic Metabolic Profile (BMP )on 07-16-2024 BUN/CRE 21.1 RATIO High 10-20 [facility] Comment on above: Performed By: #### L 500.2500, L100.0100, L300.3900 ####[facility] [address] [place], [address] Calcium [Mass/Vol] 9.3 mg/dL Normal 7.6-11.0 [facility] Comment on above: Performed By: #### L 500.2500, L100.0100, L300.3900 ####[facility] [address] [place], [address] Chloride [Moles/Vol] 103 mmol/L Normal 98-108 [facility] Comment on above: Performed By: #### L 500.2500, L100.0100, L300.3900 ####[facility] [address] [place], [address] CO2 [Moles/Vol] 19.5 mmol/L Low 21.0-32.0 [facility] Comment on above: Performed By: #### L 500.2500, L100.0100, L300.3900 ####[facility] [address] [place], [address] Creatinine [Mass/Vol] 0.60 mg/dL Low 0.70-1.20 [place] Comment on above: Performed By: #### L 500.2500, L100.0100, L300.3900 ####[facility] [address] [place], [address] ECRCL 43.30 ml/min Low 50-250 [facility] Comment on above: Performed By: #### L 500.2500, L100.0100, L300.3900 ####[facility] [address] [place], [address] GAP 12 Normal 5-15 [facility] Comment on above: Performed By: #### L 500.2500, L100.0100, L300.3900 ####[facility] [address] [place], [address] GFR/1.73 sq M.predicted among non-blacks MDRD (S/P/Bld) [Vol rate/Area] 89 mL/min/{1.73_m2} Normal >60 [facility] Comment on above: Result Comment: mL/m in/1.73m2 CKD-EPI Creatinine Equation (2020) Performed By: #### L 500.2500, L100.0100, L300.3900 ####[facility] [address] [place], [address] Glucose [Mass/Vol] 97 mg/dL Normal 70-99 [facility] Comment on above: Performed By: #### L 500.2500, L100.0100, L300.3900 ####[facility] [address] [place], [address] Potassium [Moles/Vol] 3.9 mmol/L Normal 3.3-5.1 [place] Comment on above: Performed By: #### L 500.2500, L100.0100, L300.3900 ####[facility] [address] [place], [address] Sodium [Moles/Vol] 134 mmol/L Normal 133-145 [facility] Comment on above: Performed By: #### L 500.2500, L100.0100, L300.3900 ####[facility] [address] [place], [address] Urea nitrogen [Mass/Vol] 13 mg/dL Normal 4-19 [facility] Comment on above: Performed By: #### L 500.2500, L100.0100, L300.3900 ####[facility] [address] [place], [address] Basophil percentageOrdered B y: Leonora Mojica on 07-16-2024 Basophils/100 WBC (Bld) 1.2 % High 0-1 [facility] CBC W/Diff, Automatedon 06-18 Absolute Lymph 1.03 X10 3/uL Normal 0.83-4.51 [facility] Comment on above: Performed By: #### L 500.2500, L100.0100, L300.3900 ####[facility] [address] [place], [address] Absolute Neut 3.4 X10 3/uL Normal 2.0-7.7 [facility] Comment on above: Performed By: #### L 500.2500, L100.0100, L300.3900 ####[facility] [address] [place], [address] Basophils/100 WBC (Bld) 1.2 % [facility] 0-1 [facility] Comment on above: Performed By: #### L 500.2500, L100.0100, L300.3900 ####[facility] [address] [place], [address] Eosinophils/100 WBC (Bld) 2.4 % Normal 0-5 [facility] Comment on above: Performed By: #### L 500.2500, L100.0100, L300.3900 ####[facility] [address] [place], [address] Erythrocyte distribution width (RBC) [Ratio] 13.4 % Normal 11.6-14.6 [facility] Comment on above: Performed By: #### L 500.2500, L100.0100, L300.3900 ####[facility] [address] [place], [address] Hematocrit (Bld) [Volume fraction] 36.0 % Low 37-47 [facility] Comment on above: Performed By: #### L 500.2500, L100.0100, L300.3900 ####[facility] [address] [place], [address] Hemoglobin (Bld) [Mass/Vol] 11.9 g/dL Low 12.0-15.0 [facility] Comment on above: Performed By: #### L 500.2500, L100.0100, L300.3900 ####[facility] [address] [place], [address] IG% 0.200 Normal 0.0-0.9 [facility] Comment on above: Result Comment: IG% - Immature Granulocytes (promyelocytes, myelocytes andmetamyelocytes) > 1% indicates that a LEFT SHIFT is Present. Performed By: #### L 500.2500, L100.0100, L300.3900 ####[facility] [address] [place], [address] Lymphocytes/100 WBC (Bld) 20.3 % Normal 19-41 [facility] Comment on above: Performed By: #### L 500.2500, L100.0100, L300.3900 ####[facility] [address] [place], [address] MCH (RBC) [Entitic mass] 28.3 pg Normal 27.0-32.0 [facility] Comment on above: Performed By: #### L 500.2500, L100.0100, L300.3900 ####[facility] [address] [place], [address] MCHC (RBC) [Mass/Vol] 33.1 g/dL Normal 32-36 [place] Comment on above: Performed By: #### L 500.2500, L100.0100, L300.3900 ####[facility] [address] [place], [address] MCV (RBC) [Entitic vol] 85.7 fL Normal 81-99 [facility] Comment on above: Performed By: #### L 500.2500, L100.0100, L300.3900 ####[facility] [address] [place], [address] Monocytes/100 WBC (Bld) 10.0 % Normal 0-10 [facility] Comment on above: Performed By: #### L 500.2500, L100.0100, L300.3900 ####[facility] [address] [place], [address] Neutrophils/100 WBC (Bld) 65.9 % Normal 47-70 [facility] Comment on above: Performed By: #### L 500.2500, L100.0100, L300.3900 ####[facility] [address] [place], [address] Nucleated RBC (Bld) [#/Vol] 0 10*3/uL Normal 0-5 [facility] Comment on above: Performed By: #### L 500.2500, L100.0100, L300.3900 ####[facility] [address] [place], [address] Platelet mean volume (Bld) [Entitic vol] 9.7 fL Normal 6.2-12.0 [facility] Comment on above: Performed By: #### L 500.2500, L100.0100, L300.3900 ####[facility] [address] [place], [address] Platelets (Bld) [#/Vol] 213 10*3/uL Normal 150-450 [facility] Comment on above: Performed By: #### L 500.2500, L100.0100, L300.3900 ####[facility] [address] [place], [address] RBC (Bld) [#/Vol] 4.20 10*6/uL Normal 4.2-5.4 [facility] Comment on above: Performed By: #### L 500.2500, L100.0100, L300.3900 ####[facility] [address] [place], [address] RDW SD 41.8 fl Normal 35.1-43.9 [facility] Comment on above: Performed By: #### L 500.2500, L100.0100, L300.3900 ####[facility] [address] [place], [address] WBC (Bld) [#/Vol] 5.1 10*3/uL Normal 4.4-11.0 [facility] Comment on above: Performed By: #### L 500.2500, L100.0100, L300.3900 ####[facility] [address] [place], [address] CBC-Complete Blood Cnt No Di ffon 07-16-2024 Erythrocyte distribution width (RBC) [Ratio] 13.3 % Normal 11.6-14.6 [facility] Comment on above: Performed By: #### L 100.0500 ####[facility] [address] [place], [address] Hematocrit (Bld) [Volume fraction] 38.6 % Normal 37-47 [facility] Comment on above: Performed By: #### L 100.0500 ####[facility] [address] [place], [address] Hemoglobin (Bld) [Mass/Vol] 12.5 g/dL Normal 12.0-15.0 [facility] Comment on above: Performed By: #### L 100.0500 ####[facility] [address] [place], [address] MCH (RBC) [Entitic mass] 28.1 pg Normal 27.0-32.0 [facility] Comment on above: Performed By: #### L 100.0500 ####[facility] [address] [place], [address] MCHC (RBC) [Mass/Vol] 32.4 g/dL Normal 32-36 [place] Comment on above: Performed By: #### L 100.0500 ####[facility] [address] [place], [address] MCV (RBC) [Entitic vol] 86.7 fL Normal 81-99 [facility] Comment on above: Performed By: #### L 100.0500 ####[facility] [address] [place], [address] Platelet mean volume (Bld) [Entitic vol] 9.6 fL Normal 6.2-12.0 [facility] Comment on above: Performed By: #### L 100.0500 ####[facility] [address] [place], [address] Platelets (Bld) [#/Vol] 231 10*3/uL Normal 150-450 [facility] Comment on above: Performed By: #### L 100.0500 ####[facility] [address] [place], [address] RBC (Bld) [#/Vol] 4.45 10*6/uL Normal 4.2-5.4 [facility] Comment on above: Performed By: #### L 100.0500 ####[facility] [address] [place], [address] RDW SD 42.3 fl Normal 35.1-43.9 [facility] Comment on above: Performed By: #### L 100.0500 ####[facility] [address] [place], [address] WBC (Bld) [#/Vol] 6.6 10*3/uL Normal 4.4-11.0 [facility] Comment on above: Performed By: #### L 100.0500 ####[facility] [address] [place], [address] Eosinophil percentageOrdered By: Leonora Mojica on 07-16-2024 Eosinophils/100 WBC (Bld) 2.4 % 0-5 [facility] HH, Hemoglobin AND Hematocri ton 07-16-2024 HCT Normal 37-47 [facility] Comment on above: Result Comment: Jaquelin amaya via OM: Ordered Performed By: #### L 100.0600 ####[facility] [address] [place], [address] HGB Normal 12.0-15.0 [facility] Comment on above: Result Comment: Jaquelin amaya via OM: Ordered Performed By: #### L 100.0600 ####[facility] [address] [place], [address] Hematocrit (Bld) [Volume fraction] 34.6 % Low 37-47 [facility] Comment on above: Performed By: #### L 100.0600 ####[facility] [address] [place], [place], [address] Hemoglobin (Bld) [Mass/Vol] 11.4 g/dL Low 12.0-15.0 [facility] Comment on above: Performed By: #### L 100.0600 ####[facility] [address] [place], [address] Immature granulocytes/100 WB C Auto (Bld)Ordered By: Leonora Mojica on 07-16-2024 Immature granulocytes/100 WBC (Bld) 0.200 % 0.0-0.9 [facility] Comment on above: IG% - Immature Granu locytes (promyelocytes, myelocytes and metamyelocytes) > 1% indicates that a LEFT SHIFT is Present. International normalized rat io (INR) calculationOrdered By: Leonora Mojica on 07-16-2024 INR Coag (Bld) [Relative time] 1.1 {INR} [facility] Lymphocytes Auto (Unsp spec) [#/Vol]Ordered By: Leonora Mojica on 07-16-2024 Lymphocytes (Bld) [#/Vol] 1.03 10*3/uL 0.83-4.51 [facility] Lymphocytes/100 WBC Auto (Un sp spec)Ordered By: Leonora Mojica on 07-16-2024 Lymphocytes/100 WBC (Bld) 20.3 % 19-41 [facility] MR/CON.PCM.GIon 07-16-2024 MR/CON.PCM.GI Normal [facility] Monocyte percentageOrdered B y: Leonora Mojica on 07-16-2024 Monocytes/100 WBC (Bld) 10.0 % 0-10 [facility] Neutrophil percentageOrdered By: Leonora Mojica on 07-16-2024 Neutrophils/100 WBC (Bld) 65.9 % 47-70 [facility] Nucleated red blood cell per centageOrdered By: Leonora Mojica on 07-16-2024 Nucleated RBC/100 WBC (Bld) [Ratio] 0 % 0-5 [facility] Prothrombin Time w/INRon INR Coag (PPP) [Relative time] 1.1 {INR} Normal [facility] Comment on above: Performed By: #### L 500.2500, L100.0100, L300.3900 ####[facility] [address] [place], [address] PT Coag (PPP) [Time] 13.9 s Normal 11.7-14.9 [facility] Comment on above: Performed By: #### L 500.2500, L100.0100, L300.3900 ####[facility] [address] [place], [address] Prothrombin timeOrdered By: Leonora Mojica on 07-16-2024 PT Coag (PPP) [Time] 13.9 s 11.7-14.9 [facility] Absolute neutrophil countOrd ered By: Ta Soto on 07-15-2024 Neutrophils (Bld) [#/Vol] 5.3 10*3/uL 2.0-7.7 [facility] Activated partial thrombopla stin time (aPTT) in platelet poor plasma by coagulation aOrdered By: Ta Soto on 07-15-2024 aPTT Coag (PPP) [Time] 32.6 s 24.1-36.2 [facility] Anion gap in Serum or Plasma Ordered By: Ta Soto on 07-15-2024 Anion gap [Moles/Vol] 13 mmol/L 5-15 [place] Antigen E Gammacloneon 07-15 ANTIGEN ID Negative Normal [facility] Comment on above: Order Comment: HGI Performed By: #### L 300.3900, L300.4310, BRC, BAGE, [id number], [id number], BTS ####[facility] [address] [place], [address] [id number] 07-15-2024 DIRECT LADI Abnormal NEGATIVE [facility] Comment on above: Order Comment: HGI Result Comment: POS w/POLYSPECIFICPOS w/IgGNEG w/COMPLEMENT Performed By: #### L 300.3900, L300.4310, BRC, BAGE, [id number], [id number], BTS ####[facility] [address] [place], [address] [id number] 07-15-2024 ANTIBODY ID E Normal [facility] Comment on above: Order Comment: HGI Performed By: #### L 300.3900, L300.4310, BRC, BAGE, [id number], [id number], BTS ####[facility] [address] [place], [address] BRCon 07-15-2024 RC Normal [facility] Comment on above: Result Comment: [id number] OP RC XM [id number] OP RC XM COMPATIBLE Performed By: #### L 300.3900, L300.4310, BRC, BAGE, [id number], [id number], BTS ####[facility] [address] [place], [address] BUN/creatinine ratioOrdered By: Ta Soto on 07-15-2024 Urea nitrogen/Creatinine [Mass ratio] 19.0 mg/mg - [facility] Basic Metabolic Profile (BMP )on 07-15-2024 BUN/CRE 19.0 RATIO Normal 02-04 [facility] Comment on above: Performed By: #### L 100.0100, L500.2500 ####[facility] [address] [place], [address] Calcium [Mass/Vol] 10.1 mg/dL Normal 7.6-11.0 [facility] Comment on above: Performed By: #### L 100.0100, L500.2500 ####[facility] [address] [place], [address] Chloride [Moles/Vol] 97 mmol/L Low 98-108 [facility] Comment on above: Performed By: #### L 100.0100, L500.2500 ####[facility] [address] [place], [address] CO2 [Moles/Vol] 23.8 mmol/L Normal 21.0-32.0 [facility] Comment on above: Performed By: #### L 100.0100, L500.2500 ####[facility] [address] [place], [address] Creatinine [Mass/Vol] 0.75 mg/dL Normal 0.70-1.20 [facility] Comment on above: Performed By: #### L 100.0100, L500.2500 ####[facility] [address] [place], [address] ECRCL 43.30 ml/min Low 50-250 [facility] Comment on above: Performed By: #### L 100.0100, L500.2500 ####[facility] [address] [place], [address] GAP 13 Normal 5-15 [facility] Comment on above: Performed By: #### L 100.0100, L500.2500 ####[facility] [address] [place], [address] GFR/1.73 sq M.predicted among non-blacks MDRD (S/P/Bld) [Vol rate/Area] 78 mL/min/{1.73_m2} Normal >60 [facility] Comment on above: Result Comment: mL/m in/1.73m2 CKD-EPI Creatinine Equation (2020) Performed By: #### L 100.0100, L500.2500 ####[facility] [address] [place], [address] Glucose [Mass/Vol] 136 mg/dL High 70-99 [facility] Comment on above: Performed By: #### L 100.0100, L500.2500 ####[facility] [address] [place], [address] Potassium [Moles/Vol] 4.0 mmol/L Normal 3.3-5.1 [place] Comment on above: Performed By: #### L 100.0100, L500.2500 ####[facility] [address] [place], [address] Sodium [Moles/Vol] 133 mmol/L Normal 133-145 [facility] Comment on above: Performed By: #### L 100.0100, L500.2500 ####[facility] [address] [place], [address] Urea nitrogen [Mass/Vol] 14 mg/dL Normal 4-19 [facility] Comment on above: Performed By: #### L 100.0100, L500.2500 ####[facility] [address] [place], [address] Basophil percentageOrdered B y: Ta Rosario 07-15-2024 Basophils/100 WBC (Bld) 0.8 % 0-1 [facility] CBC W/Diff, Automatedon 06-18 0-2024 Absolute Lymph 1.44 X10 3/uL Normal 0.83-4.51 [facility] Comment on above: Performed By: #### L 100.0100, L500.2500 ####[facility] [address] [place], [address] Absolute Neut 5.3 X10 3/uL Normal 2.0-7.7 [facility] Comment on above: Performed By: #### L 100.0100, L500.2500 ####[facility] [address] [place], [address] Basophils/100 WBC (Bld) 0.8 % Normal 0-1 [facility] Comment on above: Performed By: #### L 100.0100, L500.2500 ####[facility] [address] [place], [address] Eosinophils/100 WBC (Bld) 1.1 % Normal 0-5 [facility] Comment on above: Performed By: #### L 100.0100, L500.2500 ####[facility] [address] [place], [address] Erythrocyte distribution width (RBC) [Ratio] 13.3 % Normal 11.6-14.6 [facility] Comment on above: Performed By: #### L 100.0100, L500.2500 ####[facility] [address] [place], [address] Hematocrit (Bld) [Volume fraction] 41.5 % Normal 37-47 [facility] Comment on above: Performed By: #### L 100.0100, L500.2500 ####[facility] [address] [place], [address] Hemoglobin (Bld) [Mass/Vol] 13.4 g/dL Normal 12.0-15.0 [facility] Comment on above: Performed By: #### L 100.0100, L500.2500 ####[facility] [address] [place], [address] IG% 0.300 Normal 0.0-0.9 [facility] Comment on above: Result Comment: IG% - Immature Granulocytes (promyelocytes, myelocytes andmetamyelocytes) > 1% indicates that a LEFT SHIFT is Present. Performed By: #### L 100.0100, L500.2500 ####[facility] [address] [place], [address] Lymphocytes/100 WBC (Bld) 19.1 % Normal 19-41 [facility] Comment on above: Performed By: #### L 100.0100, L500.2500 ####[facility] [address] [place], [address] MCH (RBC) [Entitic mass] 28.1 pg Normal 27.0-32.0 [facility] Comment on above: Performed By: #### L 100.0100, L500.2500 ####[facility] [address] [place], [address] MCHC (RBC) [Mass/Vol] 32.3 g/dL Normal 32-36 [place] Comment on above: Performed By: #### L 100.0100, L500.2500 ####[facility] [address] [place], [address] MCV (RBC) [Entitic vol] 87.0 fL Normal 81-99 [facility] Comment on above: Performed By: #### L 100.0100, L500.2500 ####[facility] [address] [place], [address] Monocytes/100 WBC (Bld) 8.1 % Normal 0-10 [facility] Comment on above: Performed By: #### L 100.0100, L500.2500 ####[facility] [address] [place], [address] Neutrophils/100 WBC (Bld) 70.6 % High 47-70 [facility] Comment on above: Performed By: #### L 100.0100, L500.2500 ####[facility] [address] [place], [address] Nucleated RBC (Bld) [#/Vol] 0 10*3/uL Normal 0-5 [facility] Comment on above: Performed By: #### L 100.0100, L500.2500 ####[facility] [address] [place], [address] Platelet mean volume (Bld) [Entitic vol] 9.6 fL Normal 6.2-12.0 [facility] Comment on above: Performed By: #### L 100.0100, L500.2500 ####[facility] [address] [place], [address] Platelets (Bld) [#/Vol] 257 10*3/uL Normal 150-450 [facility] Comment on above: Performed By: #### L 100.0100, L500.2500 ####[facility] [address] [place], [address] RBC (Bld) [#/Vol] 4.77 10*6/uL Normal 4.2-5.4 [facility] Comment on above: Performed By: #### L 100.0100, L500.2500 ####[facility] [address] [place], [address] RDW SD 42.8 fl Normal 35.1-43.9 [facility] Comment on above: Performed By: #### L 100.0100, L500.2500 ####[facility] [address] [place], [address] WBC (Bld) [#/Vol] 7.5 10*3/uL Normal 4.4-11.0 [facility] Comment on above: Performed By: #### L 100.0100, L500.2500 ####[facility] [address] [place], [address] CTA Abd/Pelvis W/WO Contrast on 07-15-2024 CTA Abd/Pelvis W/WO Contrast Normal [facility] Carbon dioxide, total [Moles /volume] in Central venous bloodOrdered By: Ta Soto on 07-15-2024 CO2 [Moles/Vol] 23.8 mmol/L 21.0-32.0 [facility] Chloride assayOrdered By: Kilo Soto on 07-15-2024 Chloride [Moles/Vol] 97 mmol/L Low 98-108 [facility] Emergency Department Summary on 07-15-2024 Emergency Department Summary Normal [facility] Eosinophil percentageOrdered By: Ta Soto on 07-15-2024 Eosinophils/100 WBC (Bld) 1.1 % 0-5 [facility] Erythrocyte distribution wid th ratioOrdered By: Ta Soto on 07-15-2024 Erythrocyte distribution width (RBC) [Ratio] 13.3 % 11.6-14.6 [facility] Erythrocyte distribution wid th standard deviationOrdered By: Ta Soto on 07-15-2024 Erythrocyte distribution width (RBC) [Entitic vol] 42.8 fL 35.1-43.9 [facility] Estimation of creatinine kalee aranceOrdered By: Ta Soto on 07-15-2024 Estimated Creatinine Clearance Calc 43.30 ml/min Low 50-250 [facility] GFR/1.73 sq M.predicted toni g non-blacks MDRD (S/P/Bld) [Vol rate/Area]Ordered By: Ta Soto on 07-15-2024 Estimated GFR (MDRD) Non-Af Amer 78 >60 [facility] Comment on above: mL/min/1.73m2 CKD-EP I Creatinine Equation (2020) H AND P Exam - [place] 07-15-2024 H&P Exam - Hospitalist Normal [facility] HH, Hemoglobin AND Hematocri ton 07-15-2024 Hematocrit (Bld) [Volume fraction] 38.4 % Normal 37-47 [facility] Comment on above: Performed By: #### L 100.0600 ####[facility] [address] [facility] [place], [place], [phone]) Hemoglobin (Bld) [Mass/Vol] 12.5 g/dL Normal 12.0-15.0 [facility] Comment on above: Performed By: #### L 100.0600 ####[facility] [address] [facility] [place], [place], [phone]) Hematocrit Auto (Bld) [Volum e fraction]Ordered By: Ta Soto on 07-15-2024 Hematocrit (Bld) [Volume fraction] 41.5 % 37-47 [facility] Hemoglobin measurementOrdere d By: Ta Soto on 07-15-2024 Hemoglobin (Bld) [Mass/Vol] 13.4 g/dL 12.0-15.0 [facility] Immature granulocytes/100 WB C Auto (Bld)Ordered By: Ta Soto on 07-15-2024 Immature granulocytes/100 WBC (Bld) 0.300 % 0.0-0.9 [facility] Comment on above: IG% - Immature Granu locytes (promyelocytes, myelocytes and metamyelocytes) > 1% indicates that a LEFT SHIFT is Present. International normalized rat io (INR) calculationOrdered By: Ta Soto on 07-15-2024 INR Coag (Bld) [Relative time] 1.1 {INR} [facility] Lower GI hemoglobin IA Ql (S tl)Ordered By: Ta Soto on 07-15-2024 Stool Occult Blood (LOIS) Positive Abnormal [facility] Lymphocytes Auto (Unsp spec) [#/Vol]Ordered By: Ta Soto on 07-15-2024 Lymphocytes (Bld) [#/Vol] 1.44 10*3/uL 0.83-4.51 [facility] Lymphocytes/100 WBC Auto (Un sp spec)Ordered By: Ta Soto on 07-15-2024 Lymphocytes/100 WBC (Bld) 19.1 % 19-41 [facility] MCV (mean corpuscular volume ) determinationOrdered By: Ta Soto on 07-15-2024 MCV (RBC) [Entitic vol] 87.0 fL 81-99 [facility] Mean corpuscular hemoglobin (MCH) determinationOrdered By: Ta Soto on 07-15-2024 MCH (RBC) [Entitic mass] 28.1 pg 27.0-32.0 [facility] Mean corpuscular hemoglobin concentration (MCHC) determinationOrdered By: Ta Soto on 07-15-2024 MCHC (RBC) [Mass/Vol] 32.3 g/dL 32-36 [place] Mean platelet volume determi nationOrdered By: Ta Soto on 07-15-2024 Platelet mean volume (Bld) [Entitic vol] 9.6 fL 6.2-12.0 [facility] Monocyte percentageOrdered B y: Ta Soto on 07-15-2024 Monocytes/100 WBC (Bld) 8.1 % 0-10 [facility] Neutrophil percentageOrdered By: Ta Soto on 07-15-2024 Neutrophils/100 WBC (Bld) 70.6 % High 47-70 [facility] Nucleated red blood cell per centageOrdered By: Ta Soto on 07-15-2024 Nucleated RBC/100 WBC (Bld) [Ratio] 0 % 0-5 [facility] Partial Thromboplast Timeon 07-15-2024 aPTT Coag (Bld) [Time] 32.6 s Normal 24.1-36.2 [facility] Comment on above: Performed By: #### L 300.3900, L300.4310, BRC, BAGE, [id number], [id number], BTS ####[facility] [address] [place], [address] Platelet countOrdered By: Kilo Soto on 07-15-2024 Platelets (Bld) [#/Vol] 257 10*3/uL 150-450 [facility] Potassium (Unsp spec) [Mass/ Vol]Ordered By: Ta Soto on 07-15-2024 Potassium [Moles/Vol] 4.0 mmol/L 3.3-5.1 [place] Prothrombin Time w/INRon INR Coag (PPP) [Relative time] 1.1 {INR} Normal [facility] Comment on above: Performed By: #### L 300.3900, L300.4310, BRZelda, PATI, [id number], [id number], BTS ####[facility] [address] [place], [address] PT Coag (PPP) [Time] 14.3 s Normal 11.7-14.9 [facility] Comment on above: Performed By: #### L 300.3900, L300.4310, BRC, BAGE, [id number], [id number], BTS ####[facility] [address] [place], [address] Prothrombin timeOrdered By: Ta Soto on 07-15-2024 PT Coag (PPP) [Time] 14.3 s 11.7-14.9 [facility] RBC Auto (Bld) [#/Vol]Ordere d By: Ta oSto on 07-15-2024 RBC (Bld) [#/Vol] 4.77 10*6/uL 4.2-5.4 [facility] Serum creatinine measurement (mass/volume)Ordered By: Ta Soto on 07-15-2024 Creatinine [Mass/Vol] 0.75 mg/dL 0.70-1.20 [place] Serum glucose measurement (m ass/volume)Ordered By: Ta Soto on 07-15-2024 Glucose [Mass/Vol] 136 mg/dL High 70-99 [facility] Serum or plasma calcium july urement (mass/volume)Ordered By: Ta Soto on 07-15-2024 Calcium [Mass/Vol] 10.1 mg/dL 7.6-11.0 [facility] Serum or plasma urea nitroge n measurement (mass/volume)Ordered By: Ta Soto on 07-15-2024 Urea nitrogen [Mass/Vol] 14 mg/dL 4-19 [facility] Sodium levelOrdered By: Ta Soto on 07-15-2024 Sodium [Moles/Vol] 133 mmol/L 133-145 [facility] Stool Occult Blood iFOBon STOB Positive Normal [facility] Comment on above: Performed By: #### M 100.7900 ####[facility] [address] [facility] [place], [place], [id number] Stool gastrointestinal hemog lobin detection by immunologic methodOrdered By: Ta Soto on 07-15-2024 Lower GI hemoglobin IA Ql (Stl) Positive Abnormal [facility] Type AND Screenon 07-15-2024 Ab SCREEN GEL Positive Abnormal [facility] Comment on above: Order Comment: HGI Performed By: #### L 300.3900, L300.4310, BRC, BAGE, [id number], [id number], BTS ####[facility] [address] [facility] [place], [place], [id number] White blood cell (WBC) count Ordered By: Ta Soto on 07-15-2024 WBC (Bld) [#/Vol] 7.5 10*3/uL 4.4-11.0 [facility] aPTT Coag (PPP) [Time]Ordere d By: Ta Brittany on 07-15-2024 aPTT Coag (Bld) [Time] 32.6 s 24.1-36.2 [facility] Vitamin B12on 05-22-2024 Cobalamin (Vitamin B12) [Mass/Vol] 534 pg/mL Normal 211-911 [facility] Comment on above: Order Comment: Order Date: 05/21/24Order Info: 2132-9 - B12 Performed By: #### L 503.0105, L503.6550, L100.0100 ####[facility] [address] [place], [address] Absolute neutrophil countOrd ered By: Jose Hdz on 05-21-2024 Neutrophils (Bld) [#/Vol] 4.6 10*3/uL 2.0-7.7 [facility] Basophil percentageOrdered B y: Jose Hdz on 05-21-2024 Basophils/100 WBC (Bld) 1.1 % High 0-1 [facility] CBC W/Diff, Automatedon Absolute Lymph 1.26 X10 3/uL Normal 0.83-4.51 [facility] Comment on above: Order Comment: Order Date: 05/21/24Order Info: 0184-1 - CBCD Performed By: #### L 503.0105, L503.6550, L100.0100 ####[facility] [address] [place], [address] Absolute Neut 4.6 X10 3/uL Normal 2.0-7.7 [facility] Comment on above: Order Comment: Order Date: 05/21/24Order Info: 0184-1 - CBCD Performed By: #### L 503.0105, L503.6550, L100.0100 ####[facility] [address] [place], [address] Basophils/100 WBC (Bld) 1.1 % High 0-1 [facility] Comment on above: Order Comment: Order Date: 05/21/24Order Info: 0184-1 - CBCD Performed By: #### L 503.0105, L503.6550, L100.0100 ####[facility] [address] [place], [address] Eosinophils/100 WBC (Bld) 2.4 % Normal 0-5 [facility] Comment on above: Order Comment: Order Date: 05/21/24Order Info: 0184-1 - CBCD Performed By: #### L 503.0105, L503.6550, L100.0100 ####[facility] [address] [place], [address] Erythrocyte distribution width (RBC) [Ratio] 14.7 % High 11.6-14.6 [facility] Comment on above: Order Comment: Order Date: 05/21/24Order Info: 0184-1 - CBCD Performed By: #### L 503.0105, L503.6550, L100.0100 ####[facility] [address] [place], [address] Hematocrit (Bld) [Volume fraction] 41.6 % Normal 37-47 [facility] Comment on above: Order Comment: Order Date: 05/21/24Order Info: 0184-1 - CBCD Performed By: #### L 503.0105, L503.6550, L100.0100 ####[facility] [address] [place], [address] Hemoglobin (Bld) [Mass/Vol] 13.2 g/dL Normal 12.0-15.0 [facility] Comment on above: Order Comment: Order Date: 05/21/24Order Info: 0184-1 - CBCD Performed By: #### L 503.0105, L503.6550, L100.0100 ####[facility] [address] [place], [address] IG% 0.400 Normal 0.0-0.9 [facility] Comment on above: Order Comment: Order Date: 05/21/24Order Info: 0184-1 - CBCD Result Comment: IG% - Immature Granulocytes (promyelocytes, myelocytes andmetamyelocytes) > 1% indicates that a LEFT SHIFT is Present. Performed By: #### L 503.0105, L503.6550, L100.0100 ####[facility] [address] [place], [address] Lymphocytes/100 WBC (Bld) 18.0 % Low 19-41 [facility] Comment on above: Order Comment: Order Date: 05/21/24Order Info: 0184-1 - CBCD Performed By: #### L 503.0105, L503.6550, L100.0100 ####[facility] [address] [place], [address] MCH (RBC) [Entitic mass] 28.8 pg Normal 27.0-32.0 [facility] Comment on above: Order Comment: Order Date: 05/21/24Order Info: 0184-1 - CBCD Performed By: #### L 503.0105, L503.6550, L100.0100 ####[facility] [address] [place], [address] MCHC (RBC) [Mass/Vol] 31.7 g/dL Low 32-36 [facility] Comment on above: Order Comment: Order Date: 05/21/24Order Info: 0184-1 - CBCD Performed By: #### L 503.0105, L503.6550, L100.0100 ####[facility] [address] [place], [address] MCV (RBC) [Entitic vol] 90.8 fL Normal 81-99 [facility] Comment on above: Order Comment: Order Date: 05/21/24Order Info: 0184-1 - CBCD Performed By: #### L 503.0105, L503.6550, L100.0100 ####[facility] [address] [place], [address] Monocytes/100 WBC (Bld) 11.8 % High 0-10 [facility] Comment on above: Order Comment: Order Date: 05/21/24Order Info: 0184-1 - CBCD Performed By: #### L 503.0105, L503.6550, L100.0100 ####[facility] [address] [place], [address] Neutrophils/100 WBC (Bld) 66.3 % Normal 47-70 [facility] Comment on above: Order Comment: Order Date: 05/21/24Order Info: 0184-1 - CBCD Performed By: #### L 503.0105, L503.6550, L100.0100 ####[facility] [address] [place], [address] Nucleated RBC (Bld) [#/Vol] 0 10*3/uL Normal 0-5 [facility] Comment on above: Order Comment: Order Date: 05/21/24Order Info: 0184-1 - CBCD Performed By: #### L 503.0105, L503.6550, L100.0100 ####[facility] [address] [place], [address] Platelet mean volume (Bld) [Entitic vol] 10.2 fL Normal 6.2-12.0 [facility] Comment on above: Order Comment: Order Date: 05/21/24Order Info: 0184-1 - CBCD Performed By: #### L 503.0105, L503.6550, L100.0100 ####[facility] [address] [place], [address] Platelets (Bld) [#/Vol] 308 10*3/uL Normal 150-450 [facility] Comment on above: Order Comment: Order Date: 05/21/24Order Info: 0184-1 - CBCD Performed By: #### L 503.0105, L503.6550, L100.0100 ####[facility] [address] [place], [address] RBC (Bld) [#/Vol] 4.58 10*6/uL Normal 4.2-5.4 [facility] Comment on above: Order Comment: Order Date: 05/21/24Order Info: 0184-1 - CBCD Performed By: #### L 503.0105, L503.6550, L100.0100 ####[facility] [address] [place], [address] RDW SD 49.1 fl High 35.1-43.9 [facility] Comment on above: Order Comment: Order Date: 05/21/24Order Info: 0184-1 - CBCD Performed By: #### L 503.0105, L503.6550, L100.0100 ####[facility] [address] [place], [address] WBC (Bld) [#/Vol] 7.0 10*3/uL Normal 4.4-11.0 [facility] Comment on above: Order Comment: Order Date: 05/21/24Order Info: [id number] - CBCD Performed By: #### L 503.0105, L503.6550, L100.0100 ####[facility] [address] [place], [address] Eosinophil percentageOrdered By: Jose Hdz on 05-21-2024 Eosinophils/100 WBC (Bld) 2.4 % 0-5 [facility] Erythrocyte distribution wid th ratioOrdered By: Jose Hdz on 05-21-2024 Erythrocyte distribution width (RBC) [Ratio] 14.7 % High 11.6-14.6 [facility] Erythrocyte distribution wid th standard deviationOrdered By: Jose Hdz on 05-21-2024 Erythrocyte distribution width (RBC) [Entitic vol] 49.1 fL High 35.1-43.9 [facility] Ferritinon 02-03-2025 Ferritin [Mass/Vol] 40 ng/mL Normal 8-252 [facility] Comment on above: Order Comment: Order Date: 05/21/24Order Info: [id number] - ROSENDO Performed By: #### L 503.0105, L503.6550, L100.0100 ####[facility] [address] [place], [address] Ferritin measurementOrdered By: Jose Hdz on 05-21-2024 Ferritin [Mass/Vol] 40 ng/mL 8-252 [facility] Hematocrit Auto (Bld) [Volum e fraction]Ordered By: Jose Hdz on 05-21-2024 Hematocrit (Bld) [Volume fraction] 41.6 % 37-47 [facility] Hemoglobin measurementOrdere d By: Jose Hdz on 05-21-2024 Hemoglobin (Bld) [Mass/Vol] 13.2 g/dL 12.0-15.0 [facility] Immature granulocytes/100 WB C Auto (Bld)Ordered By: Jose Hdz on 05-21-2024 Immature granulocytes/100 WBC (Bld) 0.400 % 0.0-0.9 [facility] Comment on above: IG% - Immature Granu locytes (promyelocytes, myelocytes and metamyelocytes) > 1% indicates that a LEFT SHIFT is Present. Lymphocytes Auto (Unsp spec) [#/Vol]Ordered By: Jose Hdz on 05-21-2024 Lymphocytes (Bld) [#/Vol] 1.26 10*3/uL 0.83-4.51 [facility] Lymphocytes/100 WBC Auto (Un sp spec)Ordered By: Jose Hdz on 05-21-2024 Lymphocytes/100 WBC (Bld) 18.0 % Low 19-41 [facility] MCV (mean corpuscular volume ) determinationOrdered By: Jose Hdz on 05-21-2024 MCV (RBC) [Entitic vol] 90.8 fL 81-99 [facility] Mean corpuscular hemoglobin (MCH) determinationOrdered By: Jose Hdz on 05-21-2024 MCH (RBC) [Entitic mass] 28.8 pg 27.0-32.0 [facility] Mean corpuscular hemoglobin concentration (MCHC) determinationOrdered By: Jose Hzd on 05-21-2024 MCHC (RBC) [Mass/Vol] 31.7 g/dL Low 32-36 [place] Mean platelet volume determi nationOrdered By: Jose Hdz on 05-21-2024 Platelet mean volume (Bld) [Entitic vol] 10.2 fL 6.2-12.0 [facility] Monocyte percentageOrdered B y: Jose Hdz on 05-21-2024 Monocytes/100 WBC (Bld) 11.8 % High 0-10 [facility] Neutrophil percentageOrdered By: Jose Hdz on 05-21-2024 Neutrophils/100 WBC (Bld) 66.3 % 47-70 [facility] Nucleated red blood cell per centageOrdered By: Jose Hdz on 05-21-2024 Nucleated RBC/100 WBC (Bld) [Ratio] 0 % 0-5 [facility] Platelet countOrdered By: Amol Hdz on 05-21-2024 Platelets (Bld) [#/Vol] 308 10*3/uL 150-450 [facility] RBC Auto (Bld) [#/Vol]Ordere d By: Jose Hdz on 05-21-2024 RBC (Bld) [#/Vol] 4.58 10*6/uL 4.2-5.4 [facility] Vitamin B12 measurementOrder ed By: Jose Hdz on 05-21-2024 Cobalamin (Vitamin B12) [Mass/Vol] 534 pg/mL 211-911 [facility] White blood cell (WBC) count Ordered By: Jose Hdz on 05-21-2024 WBC (Bld) [#/Vol] 7.0 10*3/uL 4.4-11.0 [facility] Absolute neutrophil countOrd ered By: Brad Winslow on 04-17-2024 Neutrophils (Bld) [#/Vol] 3.9 10*3/uL 2.0-7.7 [facility] Basophil percentageOrdered B y: Brad Winslow on 04-17-2024 Basophils/100 WBC (Bld) 1.2 % High 0-1 [facility] CBC W/Diff, Automatedon 03-20 Absolute Lymph 1.09 X10 3/uL Normal 0.83-4.51 [facility] Comment on above: Performed By: #### L 100.0100 ####[facility] [address] [place], [address] Absolute Neut 3.9 X10 3/uL Normal 2.0-7.7 [facility] Comment on above: Performed By: #### L 100.0100 ####[facility] [address] [place], [address] Basophils/100 WBC (Bld) 1.2 % High 0-1 [facility] Comment on above: Performed By: #### L 100.0100 ####[facility] [address] [place], [address] Eosinophils/100 WBC (Bld) 2.3 % Normal 0-5 [facility] Comment on above: Performed By: #### L 100.0100 ####[facility] [address] [place], [address] Erythrocyte distribution width (RBC) [Ratio] 17.1 % High 11.6-14.6 [facility] Comment on above: Performed By: #### L 100.0100 ####[facility] [address] [place], [address] Hematocrit (Bld) [Volume fraction] 37.8 % Normal 37-47 [facility] Comment on above: Performed By: #### L 100.0100 ####[facility] [address] [place], [address] Hemoglobin (Bld) [Mass/Vol] 11.8 g/dL Low 12.0-15.0 [facility] Comment on above: Performed By: #### L 100.0100 ####[facility] [address] [place], [address] IG% 0.700 Normal 0.0-0.9 [facility] Comment on above: Result Comment: IG% - Immature Granulocytes (promyelocytes, myelocytes andmetamyelocytes) > 1% indicates that a LEFT SHIFT is Present. Performed By: #### L 100.0100 ####[facility] [address] [place], [address] Lymphocytes/100 WBC (Bld) 18.1 % Low 19-41 [facility] Comment on above: Performed By: #### L 100.0100 ####[facility] [address] [place], [address] MCH (RBC) [Entitic mass] 28.3 pg Normal 27.0-32.0 [facility] Comment on above: Performed By: #### L 100.0100 ####[facility] [address] [place], [address] MCHC (RBC) [Mass/Vol] 31.2 g/dL Low 32-36 [place] Comment on above: Performed By: #### L 100.0100 ####[facility] [address] [place], [address] MCV (RBC) [Entitic vol] 90.6 fL Normal 81-99 [facility] Comment on above: Performed By: #### L 100.0100 ####[facility] [address] [place], [address] Monocytes/100 WBC (Bld) 12.9 % High 0-10 [facility] Comment on above: Performed By: #### L 100.0100 ####[facility] [address] [place], [address] Neutrophils/100 WBC (Bld) 64.8 % Normal 47-70 [facility] Comment on above: Performed By: #### L 100.0100 ####[facility] [address] [place], [address] Nucleated RBC (Bld) [#/Vol] 0 10*3/uL Normal 0-5 [facility] Comment on above: Performed By: #### L 100.0100 ####[facility] [address] [place], [address] Platelet mean volume (Bld) [Entitic vol] 10.0 fL Normal 6.2-12.0 [facility] Comment on above: Performed By: #### L 100.0100 ####[facility] [address] [place], [address] Platelets (Bld) [#/Vol] 302 10*3/uL Normal 150-450 [facility] Comment on above: Performed By: #### L 100.0100 ####[facility] [address] [place], [address] RBC (Bld) [#/Vol] 4.17 10*6/uL Low 4.2-5.4 [facility] Comment on above: Performed By: #### L 100.0100 ####[facility] [address] [place], [address] RDW SD 57.3 fl High 35.1-43.9 [facility] Comment on above: Performed By: #### L 100.0100 ####[facility] [address] [place], [address] WBC (Bld) [#/Vol] 6.0 10*3/uL Normal 4.4-11.0 [facility] Comment on above: Performed By: #### L 100.0100 ####[facility] [address] [place], [address] Eosinophil percentageOrdered By: Brad Winslow on 04-17-2024 Eosinophils/100 WBC (Bld) 2.3 % 0-5 [facility] Erythrocyte distribution wid th ratioOrdered By: Brad Winslow on 04-17-2024 Erythrocyte distribution width (RBC) [Ratio] 17.1 % High 11.6-14.6 [facility] Erythrocyte distribution wid th standard deviationOrdered By: Brad Winslow on 04-17-2024 Erythrocyte distribution width (RBC) [Entitic vol] 57.3 fL High 35.1-43.9 [facility] Gastroenterology Visit Repor ton 04-17-2024 Gastroenterology Visit Report Normal [facility] Hematocrit Auto (Bld) [Volum e fraction]Ordered By: Brad Winslow on 04-17-2024 Hematocrit (Bld) [Volume fraction] 37.8 % 37-47 [facility] Hemoglobin measurementOrdere d By: Brad Winslow on 04-17-2024 Hemoglobin (Bld) [Mass/Vol] 11.8 g/dL Low 12.0-15.0 [facility] Immature granulocytes/100 WB C Auto (Bld)Ordered By: Brad Winslow on 04-17-2024 Immature granulocytes/100 WBC (Bld) 0.700 % 0.0-0.9 [facility] Comment on above: IG% - Immature Granu locytes (promyelocytes, myelocytes and metamyelocytes) > 1% indicates that a LEFT SHIFT is Present. Lymphocytes Auto (Unsp spec) [#/Vol]Ordered By: Brad Winslow on 04-17-2024 Lymphocytes (Bld) [#/Vol] 1.09 10*3/uL 0.83-4.51 [facility] Lymphocytes/100 WBC Auto (Un sp spec)Ordered By: Brad Winslow on 04-17-2024 Lymphocytes/100 WBC (Bld) 18.1 % Low 19-41 [facility] MCV (mean corpuscular volume ) determinationOrdered By: Brad Winslow on 04-17-2024 MCV (RBC) [Entitic vol] 90.6 fL 81-99 [facility] Mean corpuscular hemoglobin (MCH) determinationOrdered By: Brad Winslow on 04-17-2024 MCH (RBC) [Entitic mass] 28.3 pg 27.0-32.0 [facility] Mean corpuscular hemoglobin concentration (MCHC) determinationOrdered By: Brad Winslow on 04-17-2024 MCHC (RBC) [Mass/Vol] 31.2 g/dL Low 32-36 [place] Mean platelet volume determi nationOrdered By: Brad Nayla on 04-17-2024 Platelet mean volume (Bld) [Entitic vol] 10.0 fL 6.2-12.0 [facility] Monocyte percentageOrdered B y: Brad Winslow on 04-17-2024 Monocytes/100 WBC (Bld) 12.9 % High 0-10 [facility] Neutrophil percentageOrdered By: Bradgagan Winslow on 04-17-2024 Neutrophils/100 WBC (Bld) 64.8 % 47-70 [facility] Nucleated red blood cell per centageOrdered By: Bradgagan Winslow on 04-17-2024 Nucleated RBC/100 WBC (Bld) [Ratio] 0 % 0-5 [facility] Platelet countOrdered By: Ra murphyjaleel Nayla on 04-17-2024 Platelets (Bld) [#/Vol] 302 10*3/uL 150-450 [facility] RBC Auto (Bld) [#/Vol]Ordere d By: Brad Winslow on 04-17-2024 RBC (Bld) [#/Vol] 4.17 10*6/uL Low 4.2-5.4 [facility] White blood cell (WBC) count Ordered By: Bradgagan Winslow on 04-17-2024 WBC (Bld) [#/Vol] 6.0 10*3/uL 4.4-11.0 [facility] Vitamin D 1,25-Dihydroxyon 1 - VIT D 1,25 DIHY 23.4 pg/mL Abnormal 24.8-81.5 [facility] Comment on above: Result Comment: Perf ormed at: BN - [facility] [address] [id number] Director: Georges Rabago MD, Phone: [phone] Performed By: #### L 1651.4613 ####[facility] [address] [place], [place], [address] Basic Metabolic Profile (BMP )on 03-25-2024 BUN/CRE 26.2 RATIO High 10-20 [facility] Comment on above: Performed By: #### L 500.2500, L100.0100 ####[facility] [address] [place], [address] CA,Total 8.4 mg/dL Low 8.5-10.1 [facility] Comment on above: Performed By: #### L 500.2500, L100.0100 ####[facility] [address] [place], [address] Chloride [Moles/Vol] 108 mmol/L High 98-107 [facility] Comment on above: Performed By: #### L 500.2500, L100.0100 ####[facility] [address] [place], [address] CO2 [Moles/Vol] 25.0 mmol/L Normal 21.0-32.0 [facility] Comment on above: Performed By: #### L 500.2500, L100.0100 ####[facility] [address] [place], [address] Creatinine [Mass/Vol] 0.69 mg/dL Normal 0.55-1.02 [place] Comment on above: Result Comment: The validity of the calculated GFR GFRAA in patients over70 years has not been determined. Clinical correlation isessential. Performed By: #### L 500.2500, L100.0100 ####[facility] [address] [place], [address] ECRCL 44.08 ml/min Normal [facility] Comment on above: Performed By: #### L 500.2500, L100.0100 ####[facility] [address] [place], [address] EST GFR - AA 105 mL/min Normal >60 [facility] Comment on above: Result Comment: Afri can Faroese GFR Calc Performed By: #### L 500.2500, L100.0100 ####[facility] [address] [place], [address] GAP 8 Normal 5-15 [facility] Comment on above: Performed By: #### L 500.2500, L100.0100 ####[facility] [address] [place], [address] GFR/1.73 sq M.predicted among non-blacks MDRD (S/P/Bld) [Vol rate/Area] 87 mL/min/{1.73_m2} Normal >60 [facility] Comment on above: Result Comment: Non- GFR Calc Performed By: #### L 500.2500, L100.0100 ####[facility] [address] [place], [address] Glucose [Mass/Vol] 97 mg/dL Normal 74-106 [facility] Comment on above: Performed By: #### L 500.2500, L100.0100 ####[facility] [address] [place], [address] Potassium [Moles/Vol] 3.1 mmol/L Low 3.5-5.1 [place] Comment on above: Performed By: #### L 500.2500, L100.0100 ####[facility] [address] [place], [address] Sodium [Moles/Vol] 140 mmol/L Normal 136-145 [facility] Comment on above: Performed By: #### L 500.2500, L100.0100 ####[facility] [address] [place], [address] Urea nitrogen [Mass/Vol] 18 mg/dL Normal 7-18 [facility] Comment on above: Performed By: #### L 500.2500, L100.0100 ####[facility] [address] [place], [address] Blood urea nitrogen (BUN)/cr eatinine ratioOrdered By: Lamin Griffith on 03-25-2024 Urea nitrogen/Creatinine [Mass ratio] 26.2 mg/mg High 10-20 [facility] CBC W/Diff, Automatedon 12-0 Absolute Neut Normal 2.0-7.7 [facility] Comment on above: Result Comment: Canc elled via OM: MD Ordered Performed By: #### L 500.2500, L100.0100 ####[facility] [address] [place], [address] HCT Normal 37-47 [facility] Comment on above: Result Comment: Canc elled via OM: MD Ordered Performed By: #### L 500.2500, L100.0100 ####[facility] [address] [place], [address] HGB Normal 12.0-15.0 [facility] Comment on above: Result Comment: Canc elled via OM: MD Ordered Performed By: #### L 500.2500, L100.0100 ####[facility] [address] [place], [address] MCH Normal 27.0-32.0 [facility] Comment on above: Result Comment: Canc elled via OM: MD Ordered Performed By: #### L 500.2500, L100.0100 ####[facility] [address] [place], [address] MCHC Normal 32-36 [facility] Comment on above: Result Comment: Canc elled via OM: MD Ordered Performed By: #### L 500.2500, L100.0100 ####[facility] [address] [place], [address] MCV Normal 81-99 [facility] Comment on above: Result Comment: Canc elled via OM: MD Ordered Performed By: #### L 500.2500, L100.0100 ####[facility] [address] [place], [address] NEUT% Normal 47-70 [facility] Comment on above: Result Comment: Canc elled via OM: MD Ordered Performed By: #### L 500.2500, L100.0100 ####[facility] [address] [place], [address] PLT Normal 150-450 [facility] Comment on above: Result Comment: Canc elled via OM: MD Ordered Performed By: #### L 500.2500, L100.0100 ####[facility] [address] [place], [address] RBC Normal 4.2-5.4 [facility] Comment on above: Result Comment: Canc elled via OM: MD Ordered Performed By: #### L 500.2500, L100.0100 ####[facility] [address] [place], [address] RDW CV Normal 11.6-14.6 [facility] Comment on above: Result Comment: Canc elled via OM: MD Ordered Performed By: #### L 500.2500, L100.0100 ####[facility] [address] [place], [address] RDW SD Normal 35.1-43.9 [facility] Comment on above: Result Comment: Canc elled via OM: MD Ordered Performed By: #### L 500.2500, L100.0100 ####[facility] [address] [place], [address] WBC Normal 4.4-11.0 [facility] Comment on above: Result Comment: Canc elled via OM: MD Ordered Performed By: #### L 500.2500, L100.0100 ####[facility] [address] [place], [address] CBC-Complete Blood Cnt No Di ffon 03-25-2024 Erythrocyte distribution width (RBC) [Ratio] 15.5 % High 11.6-14.6 [facility] Comment on above: Performed By: #### L 100.0500 ####[facility] [address] [place], [address] Hematocrit (Bld) [Volume fraction] 28.1 % Low 37-47 [facility] Comment on above: Performed By: #### L 100.0500 ####[facility] [address] [place], [address] Hemoglobin (Bld) [Mass/Vol] 9.3 g/dL Low 12.0-15.0 [facility] Comment on above: Performed By: #### L 100.0500 ####[facility] [address] [place], [address] MCH (RBC) [Entitic mass] 29.1 pg Normal 27.0-32.0 [facility] Comment on above: Performed By: #### L 100.0500 ####[facility] [address] [place], [address] MCHC (RBC) [Mass/Vol] 33.1 g/dL Normal 32-36 [place] Comment on above: Performed By: #### L 100.0500 ####[facility] [address] [place], [address] MCV (RBC) [Entitic vol] 87.8 fL Normal 81-99 [facility] Comment on above: Performed By: #### L 100.0500 ####[facility] [address] [place], [address] Platelet mean volume (Bld) [Entitic vol] 10.3 fL Normal 6.2-12.0 [facility] Comment on above: Performed By: #### L 100.0500 ####[facility] [address] [place], [address] Platelets (Bld) [#/Vol] 275 10*3/uL Normal 150-450 [facility] Comment on above: Performed By: #### L 100.0500 ####[facility] [address] [place], [place], [phone]) RBC (Bld) [#/Vol] 3.20 10*6/uL Low 4.2-5.4 [facility] Comment on above: Performed By: #### L 100.0500 ####[facility] [address] [place], [address] RDW SD 48.5 fl High 35.1-43.9 [facility] Comment on above: Performed By: #### L 100.0500 ####[facility] [address] [place], [address] WBC (Bld) [#/Vol] 8.2 10*3/uL Normal 4.4-11.0 [facility] Comment on above: Performed By: #### L 100.0500 ####[facility] [address] [place], [place], [address]) Carbon dioxide measurementOr dered By: Lamin Griffith on 03-25-2024 CO2 [Moles/Vol] 25.0 mmol/L 21.0-32.0 [facility] Chloride measurementOrdered By: Lamin Griffith on 03-25-2024 Chloride [Moles/Vol] 108 mmol/L High 98-107 [facility] Discharge Instructionon 12-0 Discharge Instruction Normal [place] Erythrocyte distribution wid th ratioOrdered By: Brodie Swartz on 03-25-2024 Erythrocyte distribution width (RBC) [Ratio] 15.5 % High 11.6-14.6 [facility] Erythrocyte distribution wid th standard deviationOrdered By: Brodie Swartz on 03-25-2024 Erythrocyte distribution width (RBC) [Entitic vol] 48.5 fL High 35.1-43.9 [facility] Estimated glomerular filtrat ion rate (GFR) AmericanOrdered By: Lamin Griffith on 03-25-2024 Estimated GFR (MDRD) Amer 105 mL/min >60 [facility] Comment on above: GFR Calc Estimation of creatinine kalee aranceOrdered By: Lamin Griffith on 03-25-2024 Estimated Creatinine Clearance Calc 44.08 ml/min [facility] Glomerular filtration rate ( GFR) estimationOrdered By: Lamin Griffith on 03-25-2024 Estimated GFR (MDRD) Non-Af Amer 87 mL/min >60 [facility] Comment on above: Non- GFR Calc Glucose measurementOrdered B y: Lamin Griffith on 03-25-2024 Glucose [Mass/Vol] 97 mg/dL 74-106 [facility] Hematocrit Auto (Bld) [Volum e fraction]Ordered By: Brodie Swartz on 03-25-2024 Hematocrit (Bld) [Volume fraction] 28.1 % Low 37-47 [facility] Hemoglobin measurementOrdere d By: Brodie Swartz on 03-25-2024 Hemoglobin (Bld) [Mass/Vol] 9.3 g/dL Low 12.0-15.0 [facility] MCV (mean corpuscular volume ) determinationOrdered By: Brodie Swartz on 03-25-2024 MCV (RBC) [Entitic vol] 87.8 fL 81-99 [facility] Mean corpuscular hemoglobin (MCH) determinationOrdered By: Brodie Swartz on 03-25-2024 MCH (RBC) [Entitic mass] 29.1 pg 27.0-32.0 [facility] Mean corpuscular hemoglobin concentration (MCHC) determinationOrdered By: Brodie Swartz on 03-25-2024 MCHC (RBC) [Mass/Vol] 33.1 g/dL 32-36 [place] Mean platelet volume determi nationOrdered By: Brodie Swartz on 03-25-2024 Platelet mean volume (Bld) [Entitic vol] 10.3 fL 6.2-12.0 [facility] Platelet countOrdered By: Ayaan Swartz on 03-25-2024 Platelets (Bld) [#/Vol] 275 10*3/uL 150-450 [facility] Potassium measurementOrdered By: Lamin Griffith on 03-25-2024 Potassium [Moles/Vol] 3.1 mmol/L Low 3.5-5.1 [place] RBC Auto (Bld) [#/Vol]Ordere d By: Brodie Swartz on 03-25-2024 RBC (Bld) [#/Vol] 3.20 10*6/uL Low 4.2-5.4 [facility] Serum anion gap measurementO rdered By: Lamin Griffith on 03-25-2024 Anion gap [Moles/Vol] 8 mmol/L 5-15 [place] Serum or plasma calcium july urement (mass/volume)Ordered By: Lamin Griffith on 03-25-2024 Calcium [Mass/Vol] 8.4 mg/dL Low 8.5-10.1 [facility] Serum or plasma creatinine m easurement (mass/volume)Ordered By: Lamin Griffith on 03-25-2024 Creatinine [Mass/Vol] 0.69 mg/dL 0.55-1.02 [place] Comment on above: The validity of the calculated GFR & GFRAA in patients over 70 years has not been determined. Clinical correlation is essential. Serum or plasma urea nitroge n measurement (mass/volume)Ordered By: Lamin Griffith on 03-25-2024 Urea nitrogen [Mass/Vol] 18 mg/dL 7-18 [facility] Sodium levelOrdered By: Beto Griffith on 03-25-2024 Sodium [Moles/Vol] 140 mmol/L 136-145 [facility] Urine Cultureon 03-25-2024 URC Normal [facility] Comment on above: Performed By: #### M 100.2200, L400.0001 ####[facility] [address] [place], [address] White blood cell (WBC) count Ordered By: Brodie Swartz on 03-25-2024 WBC (Bld) [#/Vol] 8.2 10*3/uL 4.4-11.0 [facility] Absolute neutrophil countOrd ered By: Lamin Griffith on 03-24-2024 Neutrophils (Bld) [#/Vol] 5.6 10*3/uL 2.0-7.7 [facility] Basic Metabolic Profile (BMP )on 03-24-2024 BUN/CRE 19.5 RATIO Normal 02-04 [facility] Comment on above: Performed By: #### L 500.2500, L100.0100 ####[facility] [address] [place], [address] CA,Total 8.2 mg/dL Low 8.5-10.1 [facility] Comment on above: Performed By: #### L 500.2500, L100.0100 ####[facility] [address] [place], [address] Chloride [Moles/Vol] 109 mmol/L High 98-107 [facility] Comment on above: Performed By: #### L 500.2500, L100.0100 ####[facility] [address] [place], [address] CO2 [Moles/Vol] 24.0 mmol/L Normal 21.0-32.0 [facility] Comment on above: Performed By: #### L 500.2500, L100.0100 ####[facility] [address] [place], [address] Creatinine [Mass/Vol] 0.72 mg/dL Normal 0.55-1.02 [place] Comment on above: Result Comment: The validity of the calculated GFR GFRAA in patients over70 years has not been determined. Clinical correlation isessential. Performed By: #### L 500.2500, L100.0100 ####[facility] [address] [place], [address] ECRCL 44.08 ml/min Normal [facility] Comment on above: Performed By: #### L 500.2500, L100.0100 ####[facility] [address] [place], [address] EST GFR - AA 100 mL/min Normal >60 [facility] Comment on above: Result Comment: Afri can Faroese GFR Calc Performed By: #### L 500.2500, L100.0100 ####[facility] [address] [place], [address] GAP 4 Low 5-15 [facility] Comment on above: Performed By: #### L 500.2500, L100.0100 ####[facility] [address] [place], [address] GFR/1.73 sq M.predicted among non-blacks MDRD (S/P/Bld) [Vol rate/Area] 82 mL/min/{1.73_m2} Normal >60 [facility] Comment on above: Result Comment: Non- GFR Calc Performed By: #### L 500.2500, L100.0100 ####[facility] [address] [place], [address] Glucose [Mass/Vol] 99 mg/dL Normal 74-106 [facility] Comment on above: Performed By: #### L 500.2500, L100.0100 ####[facility] [address] [place], [address] Potassium [Moles/Vol] 3.6 mmol/L Normal 3.5-5.1 [place] Comment on above: Result Comment: Mode rate Hemolysis, Result may be falsely increased. Performed By: #### L 500.2500, L100.0100 ####[facility] [address] [place], [address] Sodium [Moles/Vol] 137 mmol/L Normal 136-145 [facility] Comment on above: Performed By: #### L 500.2500, L100.0100 ####[facility] [address] [place], [address] Urea nitrogen [Mass/Vol] 14 mg/dL Normal 7-18 [facility] Comment on above: Performed By: #### L 500.2500, L100.0100 ####[facility] [address] [place], [address] Basophil percentageOrdered B y: Lamin Griffith on 03-24-2024 Basophils/100 WBC (Bld) 0.9 % 0-1 [facility] Bedside Glucoseon 03-24-2024 FINGERSTICK GLU 84 mg/dL Normal 74-106 [facility] Comment on above: Result Comment: ISAMAR MEADOWS OF PATIENT CARE PER NURSING PROTOCOL Performed By: #### L 501.080 ####[facility] [address] [place], [address] CBC W/Diff, Automatedon Absolute Lymph 0.82 X10 3/uL Low 0.83-4.51 [facility] Comment on above: Performed By: #### L 500.2500, L100.0100 ####[facility] [address] [place], [address] Absolute Neut 5.6 X10 3/uL Normal 2.0-7.7 [facility] Comment on above: Performed By: #### L 500.2500, L100.0100 ####[facility] [address] [place], [address] Basophils/100 WBC (Bld) 0.9 % Normal 0-1 [facility] Comment on above: Performed By: #### L 500.2500, L100.0100 ####[facility] [address] [place], [address] Eosinophils/100 WBC (Bld) 3.7 % Normal 0-5 [facility] Comment on above: Performed By: #### L 500.2500, L100.0100 ####[facility] [address] [place], [address] Erythrocyte distribution width (RBC) [Ratio] 15.4 % High 11.6-14.6 [facility] Comment on above: Performed By: #### L 500.2500, L100.0100 ####[facility] [address] [place], [address] Hematocrit (Bld) [Volume fraction] 26.6 % Low 37-47 [facility] Comment on above: Performed By: #### L 500.2500, L100.0100 ####[facility] [address] [place], [address] Hemoglobin (Bld) [Mass/Vol] 8.9 g/dL Low 12.0-15.0 [facility] Comment on above: Performed By: #### L 500.2500, L100.0100 ####[facility] [address] [place], [address] IG% 0.600 Normal 0.0-0.9 [facility] Comment on above: Result Comment: IG% - Immature Granulocytes (promyelocytes, myelocytes andmetamyelocytes) > 1% indicates that a LEFT SHIFT is Present. Performed By: #### L 500.2500, L100.0100 ####[facility] [address] [place], [address] Lymphocytes/100 WBC (Bld) 10.5 % Low 19-41 [facility] Comment on above: Performed By: #### L 500.2500, L100.0100 ####[facility] [address] [place], [address] MCH (RBC) [Entitic mass] 28.8 pg Normal 27.0-32.0 [facility] Comment on above: Performed By: #### L 500.2500, L100.0100 ####[facility] [address] [place], [address] MCHC (RBC) [Mass/Vol] 33.5 g/dL Normal 32-36 [place] Comment on above: Performed By: #### L 500.2500, L100.0100 ####[facility] [address] [place], [address] MCV (RBC) [Entitic vol] 86.1 fL Normal 81-99 [facility] Comment on above: Performed By: #### L 500.2500, L100.0100 ####[facility] [address] [place], [address] Monocytes/100 WBC (Bld) 12.8 % High 0-10 [facility] Comment on above: Performed By: #### L 500.2500, L100.0100 ####[facility] [address] [place], [address] Neutrophils/100 WBC (Bld) 71.5 % High 47-70 [facility] Comment on above: Performed By: #### L 500.2500, L100.0100 ####[facility] [address] [place], [address] Nucleated RBC (Bld) [#/Vol] 0 10*3/uL Normal 0-5 [facility] Comment on above: Performed By: #### L 500.2500, L100.0100 ####[facility] [address] [place], [address] Platelet mean volume (Bld) [Entitic vol] 9.8 fL Normal 6.2-12.0 [facility] Comment on above: Performed By: #### L 500.2500, L100.0100 ####[facility] [address] [place], [address] Platelets (Bld) [#/Vol] 232 10*3/uL Normal 150-450 [facility] Comment on above: Performed By: #### L 500.2500, L100.0100 ####[facility] [address] [place], [address] RBC (Bld) [#/Vol] 3.09 10*6/uL Low 4.2-5.4 [facility] Comment on above: Performed By: #### L 500.2500, L100.0100 ####[facility] [address] [place], [address] RDW SD 47.6 fl High 35.1-43.9 [facility] Comment on above: Performed By: #### L 500.2500, L100.0100 ####[facility] [address] [place], [address] WBC (Bld) [#/Vol] 7.8 10*3/uL Normal 4.4-11.0 [facility] Comment on above: Performed By: #### L 500.2500, L100.0100 ####[facility] [address] [place], [address] Eosinophil percentageOrdered By: Lamin Griffith on 03-24-2024 Eosinophils/100 WBC (Bld) 3.7 % 0-5 [facility] deOrdered By: Brodie Swartz on 03-24-2024 Bedside Glucose (Misc Panel) 84 mg/dL 74-106 [facility] Comment on above: MANAGEMENT OF PATIEN T CARE PER NURSING PROTOCOL Immature granulocytes/100 WB C Auto (Bld)Ordered By: Lamin Griffith on 03-24-2024 Immature granulocytes/100 WBC (Bld) 0.600 % 0.0-0.9 [facility] Comment on above: IG% - Immature Granu locytes (promyelocytes, myelocytes and metamyelocytes) > 1% indicates that a LEFT SHIFT is Present. Lymphocytes Auto (Unsp spec) [#/Vol]Ordered By: Lamin Griffith on 03-24-2024 Lymphocytes (Bld) [#/Vol] 0.82 10*3/uL Low 0.83-4.51 [facility] Lymphocytes/100 WBC Auto (Un sp spec)Ordered By: Lamin Griffith on 03-24-2024 Lymphocytes/100 WBC (Bld) 10.5 % Low 19-41 [facility] Monocyte percentageOrdered B y: Lamin Griffith on 03-24-2024 Monocytes/100 WBC (Bld) 12.8 % High 0-10 [facility] Neutrophil percentageOrdered By: Lamin Griffith on 03-24-2024 Neutrophils/100 WBC (Bld) 71.5 % High 47-70 [facility] Nucleated red blood cell per centageOrdered By: Lamin Griffith on 03-24-2024 Nucleated RBC/100 WBC (Bld) [Ratio] 0 % 0-5 [facility] Basic Metabolic Profile (BMP )on 03-23-2024 BUN/CRE 19.2 RATIO Normal 10-20 [facility] Comment on above: Performed By: #### L 500.2500, L501.5200, L501.2300 ####[facility] [address] [place], [address] CA,Total 8.5 mg/dL Normal 8.5-10.1 [facility] Comment on above: Performed By: #### L 500.2500, L501.5200, L501.2300 ####[facility] [address] [place], [address] Chloride [Moles/Vol] 111 mmol/L High 98-107 [facility] Comment on above: Performed By: #### L 500.2500, L501.5200, L501.2300 ####[facility] [address] [place], [address] CO2 [Moles/Vol] 23.0 mmol/L Normal 21.0-32.0 [facility] Comment on above: Performed By: #### L 500.2500, L501.5200, L501.2300 ####[facility] [address] [place], [address] Creatinine [Mass/Vol] 0.57 mg/dL Normal 0.55-1.02 [place] Comment on above: Result Comment: The validity of the calculated GFR GFRAA in patients over70 years has not been determined. Clinical correlation isessential. Performed By: #### L 500.2500, L501.5200, L501.2300 ####[facility] [address] [place], [address] ECRCL 44.08 ml/min Normal [facility] Comment on above: Performed By: #### L 500.2500, L501.5200, L501.2300 ####[facility] [address] [place], [address] EST GFR - AA 129 mL/min Normal >60 [facility] Comment on above: Result Comment: Afri can Faroese GFR Calc Performed By: #### L 500.2500, L501.5200, L501.2300 ####[facility] [address] [place], [address] GAP 4 Low 5-15 [facility] Comment on above: Performed By: #### L 500.2500, L501.5200, L501.2300 ####[facility] [address] [place], [address] GFR/1.73 sq M.predicted among non-blacks MDRD (S/P/Bld) [Vol rate/Area] 107 mL/min/{1.73_m2} Normal >60 [facility] Comment on above: Result Comment: Non- GFR Calc Performed By: #### L 500.2500, L501.5200, L501.2300 ####[facility] [address] [place], [address] Glucose [Mass/Vol] 91 mg/dL Normal 74-106 [facility] Comment on above: Performed By: #### L 500.2500, L501.5200, L501.2300 ####[facility] [address] [place], [address] Potassium [Moles/Vol] 3.3 mmol/L Low 3.5-5.1 [place] Comment on above: Performed By: #### L 500.2500, L501.5200, L501.2300 ####[facility] [address] [place], [address] Sodium [Moles/Vol] 138 mmol/L Normal 136-145 [facility] Comment on above: Performed By: #### L 500.2500, L501.5200, L501.2300 ####[facility] [address] [place], [address] Urea nitrogen [Mass/Vol] 11 mg/dL Normal 7-18 [facility] Comment on above: Performed By: #### L 500.2500, L501.5200, L501.2300 ####[facility] [address] [place], [address] Bilirubin Test strip Ql (U)O rdered By: Lamin Griffith on 03-23-2024 Bilirubin Ql (U) Negative Negative [facility] CBC W/Diff, Automatedon -0 Absolute Lymph 0.82 X10 3/uL Low 0.83-4.51 [facility] Comment on above: Result Comment: NO S PEC RECEIVED Performed By: #### L 100.0100 ####[facility] [address] [place], [address] Absolute Neut 5.6 X10 3/uL Normal 2.0-7.7 [facility] Comment on above: Result Comment: NO S PEC RECEIVED Performed By: #### L 100.0100 ####[facility] [address] [place], [address] BASO# 0.05 X10 3/uL Normal [facility] Comment on above: Result Comment: NO S PEC RECEIVED Performed By: #### L 100.0100 ####[facility] [address] [place], [address] Basophils/100 WBC (Bld) 0.7 % Normal 0-1 [facility] Comment on above: Result Comment: NO S PEC RECEIVED Performed By: #### L 100.0100 ####[facility] [address] [place], [address] EOS# 0.14 X10 3/uL Normal [facility] Comment on above: Result Comment: NO S PEC RECEIVED Performed By: #### L 100.0100 ####[facility] [address] [place], [address] Eosinophils/100 WBC (Bld) 1.9 % Normal 0-5 [facility] Comment on above: Result Comment: NO S PEC RECEIVED Performed By: #### L 100.0100 ####[facility] [address] [place], [address] Erythrocyte distribution width (RBC) [Ratio] 15.1 % High 11.6-14.6 [facility] Comment on above: Result Comment: NO S PEC RECEIVED Performed By: #### L 100.0100 ####[facility] [address] [place], [address] Hematocrit (Bld) [Volume fraction] 28.2 % Low 37-47 [facility] Comment on above: Result Comment: NO S PEC RECEIVED Performed By: #### L 100.0100 ####[facility] [address] [place], [address] Hemoglobin (Bld) [Mass/Vol] 9.6 g/dL Low 12.0-15.0 [facility] Comment on above: Result Comment: NO S PEC RECEIVED Performed By: #### L 100.0100 ####[facility] [address] [place], [address] IG# 0.030 X10 3/uL High 0.0-0.0 [facility] Comment on above: Result Comment: NO S PEC RECEIVED Performed By: #### L 100.0100 ####[facility] [address] [place], [address] IG% 0.400 Normal 0.0-0.9 [facility] Comment on above: Result Comment: NO S PEC RECEIVEDIG% - Immature Granulocytes (promyelocytes, myelocytes andmetamyelocytes) > 1% indicates that a LEFT SHIFT is Present. Performed By: #### L 100.0100 ####[facility] [address] [place], [address] LYMPH# 0.82 X10 3/ul Low 0.83-4.51 [facility] Comment on above: Result Comment: NO S PEC RECEIVED Performed By: #### L 100.0100 ####[facility] [address] [place], [address] Lymphocytes/100 WBC (Bld) 11.0 % Low 19-41 [facility] Comment on above: Result Comment: NO S PEC RECEIVED Performed By: #### L 100.0100 ####[facility] [address] [place], [address] MCH (RBC) [Entitic mass] 28.5 pg Normal 27.0-32.0 [facility] Comment on above: Result Comment: NO S PEC RECEIVED Performed By: #### L 100.0100 ####[facility] [address] [place], [address] MCHC (RBC) [Mass/Vol] 34.0 g/dL Normal 32-36 [place] Comment on above: Result Comment: NO S PEC RECEIVED Performed By: #### L 100.0100 ####[facility] [address] [place], [address] MCV (RBC) [Entitic vol] 83.7 fL Normal 81-99 [facility] Comment on above: Result Comment: NO S PEC RECEIVED Performed By: #### L 100.0100 ####[facility] [address] [place], [address] MONO # 0.84 X10 3/uL Normal [facility] Comment on above: Result Comment: NO S PEC RECEIVED Performed By: #### L 100.0100 ####[facility] [address] [place], [address] Monocytes/100 WBC (Bld) 11.2 % High 0-10 [facility] Comment on above: Result Comment: NO S PEC RECEIVED Performed By: #### L 100.0100 ####[facility] [address] [place], [address] Neutrophil # 5.59 X10 3/uL Normal 2.7-7.7 [facility] Comment on above: Result Comment: NO S PEC RECEIVED Performed By: #### L 100.0100 ####[facility] [address] [place], [address] Neutrophils/100 WBC (Bld) 74.8 % High 47-70 [facility] Comment on above: Result Comment: NO S PEC RECEIVED Performed By: #### L 100.0100 ####[facility] [address] [place], [address] Nucleated RBC (Bld) [#/Vol] 0 10*3/uL Normal 0-5 [facility] Comment on above: Result Comment: NO S PEC RECEIVED Performed By: #### L 100.0100 ####[facility] [address] [place], [address] Platelet mean volume (Bld) [Entitic vol] 9.5 fL Normal 6.2-12.0 [facility] Comment on above: Result Comment: NO S PEC RECEIVED Performed By: #### L 100.0100 ####[facility] [address] [place], [address] Platelets (Bld) [#/Vol] 199 10*3/uL Normal 150-450 [facility] Comment on above: Result Comment: NO S PEC RECEIVED Performed By: #### L 100.0100 ####[facility] [address] [place], [address] RBC (Bld) [#/Vol] 3.37 10*6/uL Low 4.2-5.4 [facility] Comment on above: Result Comment: NO S PEC RECEIVED Performed By: #### L 100.0100 ####[facility] [address] [place], [address] RDW SD 46.1 fl High 35.1-43.9 [facility] Comment on above: Result Comment: NO S PEC RECEIVED Performed By: #### L 100.0100 ####[facility] [address] [place], [address] WBC (Bld) [#/Vol] 7.5 10*3/uL Normal 4.4-11.0 [facility] Comment on above: Result Comment: NO S PEC RECEIVED Performed By: #### L 100.0100 ####[facility] [address] [place], [address] EGD Reporton 03-23-2024 EGD Report Normal [facility] Epithelial cells.squamous LM Ql (Urine sed)Ordered By: Lamin Griffith on 03-23-2024 Epithelial cells.squamous LM.HPF (Urine sed) [#/Area] 0 /[HPF] 5-10 [facility] Glucose Ql (U)Ordered By: Jay Griffith on 03-23-2024 Urine Glucose (UA) Normal mg/dl Normal [facility] Ketones Test strip Ql (U)Ord ered By: Lamin Griffith on 03-23-2024 Ketones Ql (U) 50 mg/dl High Negative [facility] MR/POSTOP.ANEon 03-23-2024 MR/POSTOP.ANE Normal [facility] MR/PDVPQEHW8yu 03-23-2024 MR/POSTOPAN2 Normal [facility] Magnesiumon 03-23-2024 Magnesium [Mass/Vol] 1.9 mg/dL Normal 1.6-2.6 [facility] Comment on above: Performed By: #### L 500.2500, L501.5200, L501.2300 ####[facility] [address] [place], [address] Magnesium measurementOrdered By: Lamin Jacobsen on 03-23-2024 Magnesium [Mass/Vol] 1.9 mg/dL 1.6-2.6 [facility] Microscopic analysis of urin e for red blood cells (RBC)Ordered By: Lamin Griffith on 03-23-2024 Urine RBC > 100 SEEN /hpf 0-5 [facility] Mucus LM Ql (Urine sed)Order ed By: Lamin Griffith on 03-23-2024 Mucus Ql (Urine sed) 0 SEEN /hpf [place] Nitrite Test strip Ql (U)Ord ered By: Lamin Griffith on 03-23-2024 Nitrite Ql (U) Positive High Negative [facility] Phosphoruson 03-23-2024 Phosphate [Mass/Vol] 2.3 mg/dL Low 2.5-4.9 [facility] Comment on above: Performed By: #### L 500.2500, L501.5200, L501.2300 ####[facility] [address] [place], [address] Phosphorus measurementOrdere d By: Lamin Jacobsen on 03-23-2024 Phosphorus Level 2.3 mg/dL Low 2.5-4.9 [facility] Protein Test strip Ql (U)Ord ered By: Lamin Griffith on 03-23-2024 Protein Ql (U) 100 mg/dl High Negative [facility] Urinalysis, Completeon 03-23 RBC > 100 SEEN Normal 0-5 [facility] Comment on above: Order Comment: DALIA TER SPECIMEN Performed By: #### M 100.2200, L400.0001 ####[facility] [address] [place], [address] WBC >100 SEEN Normal 0-5 [facility] Comment on above: Order Comment: DALIA TER SPECIMEN Performed By: #### M 100.2200, L400.0001 ####[facility] [address] [place], [address] BACTERIA 0 SEEN Normal None Seen [facility] Comment on above: Order Comment: DALIA TER SPECIMEN Performed By: #### M 100.2200, L400.0001 ####[facility] [address] [place], [address] EPI,SQUAMOUS 0 SEEN Normal 5-10 [facility] Comment on above: Order Comment: DALIA TER SPECIMEN Performed By: #### M 100.2200, L400.0001 ####[facility] [address] [place], [address] Mucus Ql (Urine sed) 0 SEEN Normal [facility] Comment on above: Order Comment: DALIA TER SPECIMEN Performed By: #### M 100.2200, L400.0001 ####[facility] [address] [place], [address] Urine blood detectionOrdered By: Lamin Griffith on 03-23-2024 Urine Occult Blood 250 /ul High Negative [facility] Urine clarityOrdered By: Jed Griffith on 03-23-2024 Clarity (U) Cloudy Clear [facility] Urine color determinationOrd ered By: Lamin Griffith on 03-23-2024 Color (U) Yellow Yellow [facility] Urine cultureOrdered By: Jed Griffith on 03-23-2024 Bacteria identified Cx Nom (U) Klebsiella pneumoniae sp pneum Abnormal [facility] Urine leukocyte esterase det ection by dipstickOrdered By: Lamin Griffith on 03-23-2024 Leukocyte esterase Test strip Ql (U) 500 /ul High Negative [facility] Urine pHOrdered By: Lamin berkowitz on 03-23-2024 pH (U) 6.0 [pH] 5.0 - 8.0 [facility] Urine sediment bacteria coun t by microscopy (number/high power field)Ordered By: Lamin Griffith on 03-23-2024 Bacteria LM.HPF (Urine sed) [#/Area] 0 /[HPF] None Seen [facility] Urine specific gravity measu rementOrdered By: Lamin Griffith on 03-23-2024 Specific gravity (U) [Rel density] 1.015 1.002-1.030 [facility] Urobilinogen Ql (U)Ordered B y: Lamin Griffith on 03-23-2024 Urine Urobilinogen Normal mg/dl Normal [facility] White blood cell countOrdere d By: Lamin Griffith on 03-23-2024 Urine WBC >100 SEEN /hpf 0-5 [facility] 1,25-dihydroxyvitamin D3 [Ma ss/Vol]Ordered By: Lamin Jacobsen on 03-22-2024 Vitamin D 1,25-Dihydroxy 23.4 pg/mL Low 24.8-81.5 [facility] Comment on above: Performed at: [address] [id number] Director: Georges Rabago MD, Phone: [phone] Albumin to globulin ratioOrd ered By: Lamin Jacobsen on 03-22-2024 Albumin/Globulin [Mass ratio] 1.2 {ratio} 0.9-2.4 [facility] Bilirubin, totalOrdered By: Lamin Jacobsen on 03-22-2024 Bilirubin [Mass/Vol] 0.70 mg/dL 0.20-1.00 [facility] Comment on above: For patients on eltr ombopag therapy, use of Dimension [place] TBIL is not recommended. CBC W/Diff, Automatedon PATH REV Reviewed Normal [facility] Comment on above: Result Comment: Norm ocytic anemia.Clinical correlation suggested.Prashant Rodriguez D.O. 03/22/24 AMENDED REPORT 03/22/24 1443 PATH REV previously reported as: August Performed By: #### L 501.4020, BTS, L500.2500, L100.0100, L503.6005 ####[facility] [address] [place], [address] Absolute Lymph 1.07 X10 3/uL Normal 0.83-4.51 [facility] Comment on above: Performed By: #### L 501.9520, L501.2300, L501.5200, L500.4050, L100.0100 ####[facility] [address] [place], [address] Absolute Neut 5.7 X10 3/uL Normal 2.0-7.7 [facility] Comment on above: Performed By: #### L 501.9520, L501.2300, L501.5200, L500.4050, L100.0100 ####[facility] [address] [place], [address] Basophils/100 WBC (Bld) 0.6 % Normal 0-1 [facility] Comment on above: Performed By: #### L 501.9520, L501.2300, L501.5200, L500.4050, L100.0100 ####[facility] [address] [place], [address] Eosinophils/100 WBC (Bld) 0.8 % Normal 0-5 [facility] Comment on above: Performed By: #### L 501.9520, L501.2300, L501.5200, L500.4050, L100.0100 ####[facility] [address] [place], [address] Erythrocyte distribution width (RBC) [Ratio] 15.1 % High 11.6-14.6 [facility] Comment on above: Performed By: #### L 501.9520, L501.2300, L501.5200, L500.4050, L100.0100 ####[facility] [address] [place], [address] Hematocrit (Bld) [Volume fraction] 20.4 % Low 37-47 [facility] Comment on above: Performed By: #### L 501.9520, L501.2300, L501.5200, L500.4050, L100.0100 ####[facility] [address] [place], [address] Hemoglobin (Bld) [Mass/Vol] 6.7 g/dL Low 12.0-15.0 [facility] Comment on above: Performed By: #### L 501.9520, L501.2300, L501.5200, L500.4050, L100.0100 ####[facility] [address] [place], [address] IG% 0.400 Normal 0.0-0.9 [facility] Comment on above: Result Comment: IG% - Immature Granulocytes (promyelocytes, myelocytes andmetamyelocytes) > 1% indicates that a LEFT SHIFT is Present. Performed By: #### L 501.9520, L501.2300, L501.5200, L500.4050, L100.0100 ####[facility] [address] [place], [address] Lymphocytes/100 WBC (Bld) 13.8 % Low 19-41 [facility] Comment on above: Performed By: #### L 501.9520, L501.2300, L501.5200, L500.4050, L100.0100 ####[facility] [address] [place], [address] MCH (RBC) [Entitic mass] 27.9 pg Normal 27.0-32.0 [facility] Comment on above: Performed By: #### L 501.9520, L501.2300, L501.5200, L500.4050, L100.0100 ####[facility] [address] [place], [address] MCHC (RBC) [Mass/Vol] 32.8 g/dL Normal 32-36 [place] Comment on above: Performed By: #### L 501.9520, L501.2300, L501.5200, L500.4050, L100.0100 ####[facility] [address] [place], [address] MCV (RBC) [Entitic vol] 85.0 fL Normal 81-99 [facility] Comment on above: Performed By: #### L 501.9520, L501.2300, L501.5200, L500.4050, L100.0100 ####[facility] [address] [place], [address] Monocytes/100 WBC (Bld) 10.7 % High 0-10 [facility] Comment on above: Performed By: #### L 501.9520, L501.2300, L501.5200, L500.4050, L100.0100 ####[facility] [address] [place], [address] Neutrophils/100 WBC (Bld) 73.7 % High 47-70 [facility] Comment on above: Performed By: #### L 501.9520, L501.2300, L501.5200, L500.4050, L100.0100 ####[facility] [address] [place], [address] Nucleated RBC (Bld) [#/Vol] 0 10*3/uL Normal 0-5 [facility] Comment on above: Performed By: #### L 501.9520, L501.2300, L501.5200, L500.4050, L100.0100 ####[facility] [address] [place], [address] Platelet mean volume (Bld) [Entitic vol] 9.7 fL Normal 6.2-12.0 [facility] Comment on above: Performed By: #### L 501.9520, L501.2300, L501.5200, L500.4050, L100.0100 ####[facility] [address] [place], [address] Platelets (Bld) [#/Vol] 170 10*3/uL Normal 150-450 [facility] Comment on above: Performed By: #### L 501.9520, L501.2300, L501.5200, L500.4050, L100.0100 ####[facility] [address] [place], [address] RBC (Bld) [#/Vol] 2.40 10*6/uL Low 4.2-5.4 [facility] Comment on above: Performed By: #### L 501.9520, L501.2300, L501.5200, L500.4050, L100.0100 ####[facility] [address] [place], [address] RDW SD 46.7 fl High 35.1-43.9 [facility] Comment on above: Performed By: #### L 501.9520, L501.2300, L501.5200, L500.4050, L100.0100 ####[facility] [address] [place], [address] WBC (Bld) [#/Vol] 7.7 10*3/uL Normal 4.4-11.0 [facility] Comment on above: Performed By: #### L 501.9520, L501.2300, L501.5200, L500.4050, L100.0100 ####[facility] [address] [place], [address] [facility] 03-22-2024 Albumin [Mass/Vol] 2.4 g/dL Low 3.2-5.0 [facility] Comment on above: Performed By: #### L 501.9520, L501.2300, L501.5200, L500.4050, L100.0100 ####[facility] [address] [place], [address] Albumin/Globulin [Mass ratio] 1.2 {ratio} Normal 0.9-2.4 [facility] Comment on above: Performed By: #### L 501.9520, L501.2300, L501.5200, L500.4050, L100.0100 ####[facility] [address] [place], [address] ALK P 39 U/L Low 45-117 [facility] Comment on above: Performed By: #### L 501.9520, L501.2300, L501.5200, L500.4050, L100.0100 ####[facility] [address] [place], [address] ALT [Catalytic activity/Vol] 12 U/L Low 13-56 [facility] Comment on above: Performed By: #### L 501.9520, L501.2300, L501.5200, L500.4050, L100.0100 ####[facility] [address] [place], [address] AST [Catalytic activity/Vol] 15 U/L Normal 15-37 [facility] Comment on above: Performed By: #### L 501.9520, L501.2300, L501.5200, L500.4050, L100.0100 ####[facility] [address] [place], [address] Bilirubin [Mass/Vol] 0.70 mg/dL Normal 0.20-1.00 [facility] Comment on above: Result Comment: For patients on eltrombopag therapy, use of Dimension [place] TBIL is not recommended. Performed By: #### L 501.9520, L501.2300, L501.5200, L500.4050, L100.0100 ####[facility] [address] [place], [address] BUN/CRE 37.3 RATIO High 10-20 [facility] Comment on above: Performed By: #### L 501.9520, L501.2300, L501.5200, L500.4050, L100.0100 ####[facility] [address] [place], [address] CA,Total 7.6 mg/dL Low 8.5-10.1 [facility] Comment on above: Performed By: #### L 501.9520, L501.2300, L501.5200, L500.4050, L100.0100 ####[facility] [address] [place], [address] Chloride [Moles/Vol] 116 mmol/L High 98-107 [facility] Comment on above: Performed By: #### L 501.9520, L501.2300, L501.5200, L500.4050, L100.0100 ####[facility] [address] [place], [address] CO2 [Moles/Vol] 21.0 mmol/L Normal 21.0-32.0 [facility] Comment on above: Performed By: #### L 501.9520, L501.2300, L501.5200, L500.4050, L100.0100 ####[facility] [address] [place], [address] Creatinine [Mass/Vol] 0.64 mg/dL Normal 0.55-1.02 [place] Comment on above: Result Comment: The validity of the calculated GFR GFRAA in patients over70 years has not been determined. Clinical correlation isessential. Performed By: #### L 501.9520, L501.2300, L501.5200, L500.4050, L100.0100 ####[facility] [address] [place], [address] ECRCL 44.08 ml/min Normal [facility] Comment on above: Performed By: #### L 501.9520, L501.2300, L501.5200, L500.4050, L100.0100 ####[facility] [address] [place], [address] EST GFR - AA 113 mL/min Normal >60 [facility] Comment on above: Result Comment: Afri can Faroese GFR Calc Performed By: #### L 501.9520, L501.2300, L501.5200, L500.4050, L100.0100 ####[facility] [address] [place], [address] GAP 6 Normal 5-15 [facility] Comment on above: Performed By: #### L 501.9520, L501.2300, L501.5200, L500.4050, L100.0100 ####[facility] [address] [place], [address] GFR/1.73 sq M.predicted among non-blacks MDRD (S/P/Bld) [Vol rate/Area] 93 mL/min/{1.73_m2} Normal >60 [facility] Comment on above: Result Comment: Non- GFR Calc Performed By: #### L 501.9520, L501.2300, L501.5200, L500.4050, L100.0100 ####[facility] [address] [place], [address] Globulin (S) [Mass/Vol] 2.0 g/dL Low 2.2-4.2 [facility] Comment on above: Performed By: #### L 501.9520, L501.2300, L501.5200, L500.4050, L100.0100 ####[facility] [address] [place], [address] Glucose [Mass/Vol] 106 mg/dL Normal 74-106 [facility] Comment on above: Result Comment: Fast ing Glucose result from 100 to 125 mg/dLsuggests IMPAIRED HOMEOSTASIS per A.D.A. criteria. Performed By: #### L 501.9520, L501.2300, L501.5200, L500.4050, L100.0100 ####[facility] [address] [place], [address] Potassium [Moles/Vol] 4.3 mmol/L Normal 3.5-5.1 [place] Comment on above: Performed By: #### L 501.9520, L501.2300, L501.5200, L500.4050, L100.0100 ####[facility] [address] [place], [address] Sodium [Moles/Vol] 143 mmol/L Normal 136-145 [facility] Comment on above: Performed By: #### L 501.9520, L501.2300, L501.5200, L500.4050, L100.0100 ####[facility] [address] [place], [address] T PROT 4.4 g/dL Low 6.4-8.2 [facility] Comment on above: Performed By: #### L 501.9520, L501.2300, L501.5200, L500.4050, L100.0100 ####[facility] [address] [place], [address] Urea nitrogen [Mass/Vol] 24 mg/dL High 7-18 [facility] Comment on above: Performed By: #### L 501.9520, L501.2300, L501.5200, L500.4050, L100.0100 ####[facility] [address] [place], [address] HH, Hemoglobin AND Hematocri ton 03-22-2024 Hematocrit (Bld) [Volume fraction] 25.1 % Low 37-47 [facility] Comment on above: Performed By: #### L 100.0600 ####[facility] [address] [place], [address] Hemoglobin (Bld) [Mass/Vol] 8.7 g/dL Low 12.0-15.0 [facility] Comment on above: Performed By: #### L 100.0600 ####[facility] [address] [place], [place], [address] Laboratory - Chemistry and C hemistry - challengeOrdered By: Lamin Jacobsen on 03-22-2024 AST [Catalytic activity/Vol] 15 U/L 15-37 [facility] Lactic acid measurementOrder ed By: Sangita Lima on 03-22-2024 Lactate [Moles/Vol] 2.3 mmol/L Invalid Interpretation Code 0.4-1.9 [facility] Comment on above: Critical Result(s) C alled at: 01:36:36 03/22/2024 by: Chelly correa. Results read back by same. Result Comment: Crit ical Result(s) Called at: 01:36:36 03/22/2024 by:Chelly correa. Results read back by same. Performed By: #### L 503.6005 ####[facility] [address] [place], [place], [address] MR/CON.PCM.GIon 03-22-2024 MR/CON.PCM.GI Normal [facility] Magnesiumon 03-22-2024 Magnesium [Mass/Vol] 1.7 mg/dL Normal 1.6-2.6 [facility] Comment on above: Performed By: #### L 501.9520, L501.2300, L501.5200, L500.4050, L100.0100 ####[facility] [address] [place], [address] Phosphoruson 03-22-2024 Phosphate [Mass/Vol] 2.5 mg/dL Normal 2.5-4.9 [facility] Comment on above: Performed By: #### L 501.9520, L501.2300, L501.5200, L500.4050, L100.0100 ####[facility] [address] [place], [address] Serum globulin measurementOr dered By: Lamin Jacobsen on 03-22-2024 Globulin (S) [Mass/Vol] 2.0 g/dL Low 2.2-4.2 [facility] Serum or plasma alanine [place] otransferase (ALT) measurementOrdered By: Lamin Jacobsen on 03-22-2024 ALT [Catalytic activity/Vol] 12 U/L Low 13-56 [facility] Serum or plasma albumin july urement (mass/volume)Ordered By: Lamin Jacobsen on 03-22-2024 Albumin [Mass/Vol] 2.4 g/dL Low 3.2-5.0 [facility] Serum or plasma alkaline kaela sphatase measurementOrdered By: Lamin Jacobsen on 03-22-2024 ALP [Catalytic activity/Vol] 39 U/L Low 45-117 [facility] TSH QnOrdered By: Lamin holliday on 03-22-2024 Thyroid Stimulating Hormone (TSH) 1.290 uIU/mL 0.358-3.740 [facility] Thyroid Stim Hormone (TSH)on 03-22-2024 TSH 1.290 uIU/mL Normal 0.358-3.740 [facility] Comment on above: Performed By: #### L 501.9520, L501.2300, L501.5200, L500.4050, L100.0100 ####[facility] [address] [facility] [place], [address] Total proteinOrdered By: Jed Jacobsen on 03-22-2024 Protein [Mass/Vol] 4.4 g/dL Low 6.4-8.2 [facility] Vitamin B12 measurementOrder ed By: Lamin Jacobsen on 03-22-2024 Cobalamin (Vitamin B12) [Mass/Vol] 473 pg/mL Normal 211-911 [facility] Comment on above: Performed By: #### L 503.0105 ####[facility] [address] [place], [place], [address] 12 Lead EKGon 03-21-2024 12 Lead EKG Normal [facility] BRCon 03-21-2024 RC Normal [facility] Comment on above: Result Comment: [id number] OP RC TRANSFUSED 03/22/24 0547 Performed By: #### B RC ####[facility] [address] [place], [address] Result Comment: [id number] OP RC TRANSFUSED 03/21/24 [id number] OP RC TRANSFUSED 03/22/24 0114 Basic Metabolic Profile (BMP )on 03-21-2024 BUN/CRE 36.7 RATIO High 10-20 [facility] Comment on above: Order Comment: 'TROP ' Serial specimen #1, #2 or #3: 1 Performed By: #### L 501.4020, BTS, L500.2500, L100.0100, L503.6005 ####[facility] [address] [place], [address] CA,Total 8.8 mg/dL Normal 8.5-10.1 [facility] Comment on above: Order Comment: 'TROP ' Serial specimen #1, #2 or #3: 1 Performed By: #### L 501.4020, BTS, L500.2500, L100.0100, L503.6005 ####[facility] [address] [place], [address] Chloride [Moles/Vol] 110 mmol/L High 98-107 [facility] Comment on above: Order Comment: 'TROP ' Serial specimen #1, #2 or #3: 1 Performed By: #### L 501.4020, BTS, L500.2500, L100.0100, L503.6005 ####[facility] [facility] [address] [place], [address] CO2 [Moles/Vol] 24.0 mmol/L Normal 21.0-32.0 [facility] Comment on above: Order Comment: 'TROP ' Serial specimen #1, #2 or #3: 1 Performed By: #### L 501.4020, BTS, L500.2500, L100.0100, L503.6005 ####[facility] [address] [place], [address] Creatinine [Mass/Vol] 0.90 mg/dL Normal 0.55-1.02 [place] Comment on above: Order Comment: 'TROP ' Serial specimen #1, #2 or #3: 1 Result Comment: The validity of the calculated GFR GFRAA in patients over70 years has not been determined. Clinical correlation isessential. Performed By: #### L 501.4020, BTS, L500.2500, L100.0100, L503.6005 ####[facility] [address] [facility] [address] ECRCL 39.18 ml/min Normal [facility] Comment on above: Order Comment: 'TROP ' Serial specimen #1, #2 or #3: 1 Performed By: #### L 501.4020, BTS, L500.2500, L100.0100, L503.6005 ####[facility] [address] [place], [address] EST GFR - AA 77 mL/min Normal >60 [facility] Comment on above: Order Comment: 'TROP ' Serial specimen #1, #2 or #3: 1 Result Comment: Afri can Faroese GFR Calc Performed By: #### L 501.4020, BTS, L500.2500, L100.0100, L503.6005 ####[facility] [address] [place], [address] GAP 7 Normal 5-15 [facility] Comment on above: Order Comment: 'TROP ' Serial specimen #1, #2 or #3: 1 Performed By: #### L 501.4020, BTS, L500.2500, L100.0100, L503.6005 ####[facility] [address] [place], [address] GFR/1.73 sq M.predicted among non-blacks MDRD (S/P/Bld) [Vol rate/Area] 63 mL/min/{1.73_m2} Normal >60 [facility] Comment on above: Order Comment: 'TROP ' Serial specimen #1, #2 or #3: 1 Result Comment: Non- GFR Calc Performed By: #### L 501.4020, BTS, L500.2500, L100.0100, L503.6005 ####[facility] [address] [place], [address] Glucose [Mass/Vol] 164 mg/dL High 74-106 [facility] Comment on above: Order Comment: 'TROP ' Serial specimen #1, #2 or #3: 1 Result Comment: Fast ing Glucose result greater than or equal to 126 mg/dLsuggests DIABETES MELLITUS per A.D.A. criteria. Performed By: #### L 501.4020, BTS, L500.2500, L100.0100, L503.6005 ####[facility] [address] [place], [address] Potassium [Moles/Vol] 4.2 mmol/L Normal 3.5-5.1 [place] Comment on above: Order Comment: 'TROP ' Serial specimen #1, #2 or #3: 1 Performed By: #### L 501.4020, BTS, L500.2500, L100.0100, L503.6005 ####[facility] [address] [place], [address] Sodium [Moles/Vol] 141 mmol/L Normal 136-145 [facility] Comment on above: Order Comment: 'TROP ' Serial specimen #1, #2 or #3: 1 Performed By: #### L 501.4020, BTS, L500.2500, L100.0100, L503.6005 ####[facility] [address] [place], [address] Urea nitrogen [Mass/Vol] 33 mg/dL High 7-18 [facility] Comment on above: Order Comment: 'TROP ' Serial specimen #1, #2 or #3: 1 Performed By: #### L 501.4020, BTS, L500.2500, L100.0100, L503.6005 ####[facility] [address] [place], [place], [address] CTA Abd/Pelvis W/WO Contrast on 03-21-2024 CTA Abd/Pelvis W/WO Contrast Normal [facility] Emergency Department Summary on 03-21-2024 Emergency Department Summary Normal [facility] Ferritinon 03-21-2024 Ferritin [Mass/Vol] 12 ng/mL Normal 8-252 [facility] Comment on above: Order Comment: Has P pablito had X-rays with Contrast this admission? NN Performed By: #### L 506.0250, L503.6550, L503.6030 ####[facility] [address] [place], [place], [address] Ferritin measurementOrdered By: Lamin Jacobsen on 03-21-2024 Ferritin [Mass/Vol] 12 ng/mL 8-252 [facility] Folates, (Folic Acid)on FOLATES 21.60 ng/mL Normal 3.1-55.4 [facility] Comment on above: Order Comment: Has P pablito had X-rays with Contrast this admission? NN Performed By: #### L 506.0250, L503.6550, L503.6030 ####[facility] [address] [place], [place], [address] Folic acid measurementOrdere d By: Lamin Jacobsen on 03-21-2024 Folate 21.60 ng/mL 3.1-55.4 [facility] H AND P Exam - Hospitaliston 03-21-2024 H&P Exam - Hospitalist Normal [facility] Hypochromia Ql (Bld)Ordered By: Sangita Lima on 03-21-2024 Hypochromasia 3+ [facility] Iron (Unsp spec) [Mass/Mass] Ordered By: Lamin Jacobsen on 03-21-2024 Iron [Mass/Vol] 10 ug/dL Low 50-170 [facility] Iron saturation [Mass fracti on]Ordered By: Lamin Jacobsen on 03-21-2024 Iron Saturation 2.6 % Low 15.0-55.0 [facility] Iron+Iron Binding Capacityon 03-21-2024 Iron [Mass/Vol] 10 ug/dL Low 50-170 [facility] Comment on above: Order Comment: Has Miguel kenney had X-rays with Contrast this admission? NN Performed By: #### L 506.0250, L503.6550, L503.6030 ####[facility] [address] [place], [address] IRON SATURATION 2.6 Low 15.0-55.0 [facility] Comment on above: Order Comment: Has Miguel kenney had X-rays with Contrast this admission? NN Performed By: #### L 506.0250, L503.6550, L503.6030 ####[facility] [address] [place], [address] TIBC 380 ug/dL Normal 250-450 [facility] Comment on above: Order Comment: Has Miguel kenney had X-rays with Contrast this admission? NN Performed By: #### L 506.0250, L503.6550, L503.6030 ####[facility] [address] [place], [address] L501.4020on 03-21-2024 TROPONIN-I HS 12 pg/mL Normal 3.0-54.0 [facility] Comment on above: Order Comment: 'TROP ' Serial specimen #1, #2 or #3: 1 Result Comment: Plea se Note: New Test Units and Gender Specific Reference Ranges. For more information see Policy Stat Procedure [place] High Sensitivity Troponin (TNIH) and attachments. Performed By: #### L 501.4020, BTS, L500.2500, L100.0100, L503.6005 ####[facility] [address] [place], [address] Lactic Acidon 03-21-2024 Lactate [Moles/Vol] 2.0 mmol/L Normal 0.4-1.9 [facility] Comment on above: Order Comment: Y Result Comment: Crit ical Result(s) Called at: 21:57:05 03/21/2024 by: MARGARET. Results read back by Willie THAKKAR Performed By: #### L 501.4020, BTS, L500.2500, L100.0100, L503.6005 ####[facility] [address] [place], [place], [id number] Manual differential comment Mark (Bld) [Interp]Ordered By: Sangita Lima on 03-21-2024 Differential Comment See comment [place] Comment on above: ANEMIA Ovalocytes LM Ql (Bld)Ordere d By: Sangita Lima on 03-21-2024 Ovalocytes RARE [facility] Pathologist review Mark (Unsp spec) [Interp]Ordered By: Sangita Lima on 03-21-2024 Differential Pathologist's Review Reviewed [facility] Comment on above: Previous reported re sult: Kira parra Edited by: FIDENCIO on 03/22/24:1443Normocytic anemia.Clinical correlation suggested.Prashant Rodriguez D.O. 03/22/24 AMENDED REPORT 03/22/24 1443 PATH REV previously reported as: Kira parra Platelets LM Ql (Bld)Ordered By: Sangita Lima on 03-21-2024 Platelet Estimate ADEQUATE ADEQ [facility] TIBCOrdered By: Lamin reyes on 03-21-2024 Total Iron Binding Capacity 380 ug/dL 250-450 [facility] Troponin IOrdered By: Sangita Lima on 03-21-2024 Troponin I High Sensitivity 12 pg/mL 3.0-54.0 [facility] Comment on above: Please Note: New Letty t Units and Gender Specific Reference Ranges. For more information see Policy Stat Procedure [place] High Sensitivity Troponin (TNIH) and attachments. Type AND Screenon 03-21-2024 ABO and Rh group Nom (Bld) Blood group O Rh(D) positive Normal [facility] Comment on above: Order Comment: HGI Performed By: #### L 501.4020, BTS, L500.2500, L100.0100, L503.6005 ####[facility] [address] [place], [address] Urinalysis, Completeon 03-21 BACTERIA Normal None Seen [facility] Comment on above: Order Comment: CLEAN CATCH Result Comment: PERF ORMED ON 03/23 Performed By: #### L 400.0001 ####[facility] [address] [place], [address] BILIRUBIN URINE Normal Negative [facility] Comment on above: Order Comment: CLEAN CATCH Result Comment: PERF ORMED ON 03/23 Performed By: #### L 400.0001 ####[facility] [address] [place], [address] Clarity (U) Normal Clear [facility] Comment on above: Order Comment: CLEAN CATCH Result Comment: PERF ORMED ON 03/23 Performed By: #### L 400.0001 ####[facility] [address] [place], [address] Color (U) Normal Yellow [facility] Comment on above: Order Comment: CLEAN CATCH Result Comment: PERF ORMED ON 03/23 Performed By: #### L 400.0001 ####[facility] [address] [place], [address] EPI,SQUAMOUS Normal 5-10 [facility] Comment on above: Order Comment: CLEAN CATCH Result Comment: PERF ORMED ON 03/23 Performed By: #### L 400.0001 ####[facility] [address] [place], [address] GLUCOSE, UR Normal Normal [facility] Comment on above: Order Comment: CLEAN CATCH Result Comment: PERF ORMED ON 03/23 Performed By: #### L 400.0001 ####[facility] [address] [place], [address] KETONE UR Normal Negative [facility] Comment on above: Order Comment: CLEAN CATCH Result Comment: PERF ORMED ON 03/23 Performed By: #### L 400.0001 ####[facility] [address] [place], [address] LEUK ESTERASE Normal Negative [facility] Comment on above: Order Comment: CLEAN CATCH Result Comment: PERF ORMED ON 03/23 Performed By: #### L 400.0001 ####[facility] [address] [place], [address] Mucus Ql (Urine sed) Normal [facility] Comment on above: Order Comment: CLEAN CATCH Result Comment: PERF ORMED ON 03/23 Performed By: #### L 400.0001 ####[facility] [address] [place], [address] Nitrite Ql (U) Normal Negative [facility] Comment on above: Order Comment: CLEAN CATCH Result Comment: PERF ORMED ON 03/23 Performed By: #### L 400.0001 ####[facility] [address] [place], [address] OCCULT BLOOD-UR Normal Negative [facility] Comment on above: Order Comment: CLEAN CATCH Result Comment: PERF ORMED ON 03/23 Performed By: #### L 400.0001 ####[facility] [address] [place], [address] pH UR Normal 5.0 - 8.0 [facility] Comment on above: Order Comment: CLEAN CATCH Result Comment: PERF ORMED ON 03/23 Performed By: #### L 400.0001 ####[facility] [address] [place], [address] PROT DIPSTX Normal Negative [facility] Comment on above: Order Comment: CLEAN CATCH Result Comment: PERF ORMED ON 03/23 Performed By: #### L 400.0001 ####[facility] [address] [place], [address] RBC Normal 0-5 [facility] Comment on above: Order Comment: CLEAN CATCH Result Comment: PERF ORMED ON 03/23 Performed By: #### L 400.0001 ####[facility] [address] [place], [address] SP.GR. DIPSTX Normal 1.002-1.030 [facility] Comment on above: Order Comment: CLEAN CATCH Result Comment: PERF ORMED ON 03/23 Performed By: #### L 400.0001 ####[facility] [address] [place], [address] UR Preservative Normal [facility] Comment on above: Order Comment: CLEAN CATCH Result Comment: PERF ORMED ON 03/23 Performed By: #### L 400.0001 ####[facility] [address] [place], [address] UROBILI Normal Normal [facility] Comment on above: Order Comment: CLEAN CATCH Result Comment: PERF ORMED ON 03/23 Performed By: #### L 400.0001 ####[facility] [address] [place], [address] WBC Normal 0-5 [facility] Comment on above: Order Comment: CLEAN CATCH Result Comment: PERF ORMED ON 03/23 Performed By: #### L 400.0001 ####[facility] [address] [place], [address] Abdomen Single Viewon 2023 Abdomen Single View Normal [facility] Absolute neutrophil countOrd ered By: Jono Casanova on 03-18-2024 Neutrophils (Bld) [#/Vol] 7.7 10*3/uL 2.0-7.7 [facility] Basic Metabolic Profile (BMP )on 03-18-2024 BUN/CRE 16.4 RATIO Normal 10-20 [facility] Comment on above: Performed By: #### L 500.2500, L100.0100 ####[facility] [address] [place], [address] CA,Total 9.8 mg/dL Normal 8.5-10.1 [facility] Comment on above: Performed By: #### L 500.2500, L100.0100 ####[facility] [address] [place], [address] Chloride [Moles/Vol] 100 mmol/L Normal 98-107 [facility] Comment on above: Performed By: #### L 500.2500, L100.0100 ####[facility] [address] [place], [address] CO2 [Moles/Vol] 25.0 mmol/L Normal 21.0-32.0 [facility] Comment on above: Performed By: #### L 500.2500, L100.0100 ####[facility] [address] [place], [address] Creatinine [Mass/Vol] 0.92 mg/dL Normal 0.55-1.02 [place] Comment on above: Result Comment: The validity of the calculated GFR GFRAA in patients over70 years has not been determined. Clinical correlation isessential. Performed By: #### L 500.2500, L100.0100 ####[facility] [address] [place], [address] ECRCL 38.33 ml/min Normal [facility] Comment on above: Performed By: #### L 500.2500, L100.0100 ####[facility] [address] [place], [address] EST GFR - AA 75 mL/min Normal >60 [facility] Comment on above: Result Comment: Afri can Faroese GFR Calc Performed By: #### L 500.2500, L100.0100 ####[facility] [address] [place], [address] GAP 10 Normal 5-15 [facility] Comment on above: Performed By: #### L 500.2500, L100.0100 ####[facility] [address] [place], [address] GFR/1.73 sq M.predicted among non-blacks MDRD (S/P/Bld) [Vol rate/Area] 62 mL/min/{1.73_m2} Normal >60 [facility] Comment on above: Result Comment: Non- GFR Calc Performed By: #### L 500.2500, L100.0100 ####[facility] [address] [place], [address] Glucose [Mass/Vol] 130 mg/dL High 74-106 [facility] Comment on above: Result Comment: Fast ing Glucose result greater than or equal to 126 mg/dLsuggests DIABETES MELLITUS per A.D.A. criteria. Performed By: #### L 500.2500, L100.0100 ####[facility] [address] [place], [address] Potassium [Moles/Vol] 3.8 mmol/L Normal 3.5-5.1 [place] Comment on above: Performed By: #### L 500.2500, L100.0100 ####[facility] [address] [place], [address] Sodium [Moles/Vol] 135 mmol/L Low 136-145 [facility] Comment on above: Performed By: #### L 500.2500, L100.0100 ####[facility] [address] [place], [address] Urea nitrogen [Mass/Vol] 15 mg/dL Normal 7-18 [facility] Comment on above: Performed By: #### L 500.2500, L100.0100 ####[facility] [address] [place], [address] Basophil percentageOrdered B y: Jono Casanova on 03-18-2024 Basophils/100 WBC (Bld) 0.8 % 0-1 [facility] Blood urea nitrogen (BUN)/cr eatinine ratioOrdered By: Jono Casanova on 03-18-2024 Urea nitrogen/Creatinine [Mass ratio] 16.4 mg/mg 10-20 [facility] CBC W/Diff, Automatedon 12-0 Absolute Lymph 1.03 X10 3/uL Normal 0.83-4.51 [facility] Comment on above: Performed By: #### L 500.2500, L100.0100 ####[facility] [address] [place], [address] Absolute Neut 7.7 X10 3/uL Normal 2.0-7.7 [facility] Comment on above: Performed By: #### L 500.2500, L100.0100 ####[facility] [address] [place], [address] Basophils/100 WBC (Bld) 0.8 % Normal 0-1 [facility] Comment on above: Performed By: #### L 500.2500, L100.0100 ####[facility] [address] [place], [address] Eosinophils/100 WBC (Bld) 0.9 % Normal 0-5 [facility] Comment on above: Performed By: #### L 500.2500, L100.0100 ####[facility] [address] [place], [address] Erythrocyte distribution width (RBC) [Ratio] 15.1 % High 11.6-14.6 [facility] Comment on above: Performed By: #### L 500.2500, L100.0100 ####[facility] [address] [place], [address] Hematocrit (Bld) [Volume fraction] 38.6 % Normal 37-47 [facility] Comment on above: Performed By: #### L 500.2500, L100.0100 ####[facility] [address] [place], [address] Hemoglobin (Bld) [Mass/Vol] 12.3 g/dL Normal 12.0-15.0 [facility] Comment on above: Performed By: #### L 500.2500, L100.0100 ####[facility] [address] [place], [address] IG% 0.400 Normal 0.0-0.9 [facility] Comment on above: Result Comment: IG% - Immature Granulocytes (promyelocytes, myelocytes andmetamyelocytes) > 1% indicates that a LEFT SHIFT is Present. Performed By: #### L 500.2500, L100.0100 ####[facility] [address] [place], [address] Lymphocytes/100 WBC (Bld) 10.4 % Low 19-41 [facility] Comment on above: Performed By: #### L 500.2500, L100.0100 ####[facility] [address] [place], [address] MCH (RBC) [Entitic mass] 27.3 pg Normal 27.0-32.0 [facility] Comment on above: Performed By: #### L 500.2500, L100.0100 ####[facility] [address] [place], [address] MCHC (RBC) [Mass/Vol] 31.9 g/dL Low 32-36 [place] Comment on above: Performed By: #### L 500.2500, L100.0100 ####[facility] [address] [place], [address] MCV (RBC) [Entitic vol] 85.6 fL Normal 81-99 [facility] Comment on above: Performed By: #### L 500.2500, L100.0100 ####[facility] [address] [place], [address] Monocytes/100 WBC (Bld) 9.8 % Normal 0-10 [facility] Comment on above: Performed By: #### L 500.2500, L100.0100 ####[facility] [address] [place], [address] Neutrophils/100 WBC (Bld) 77.7 % High 47-70 [facility] Comment on above: Performed By: #### L 500.2500, L100.0100 ####[facility] [address] [place], [address] Nucleated RBC (Bld) [#/Vol] 0 10*3/uL Normal 0-5 [facility] Comment on above: Performed By: #### L 500.2500, L100.0100 ####[facility] [address] [place], [address] Platelet mean volume (Bld) [Entitic vol] 9.7 fL Normal 6.2-12.0 [facility] Comment on above: Performed By: #### L 500.2500, L100.0100 ####[facility] [address] [place], [address] Platelets (Bld) [#/Vol] 326 10*3/uL Normal 150-450 [facility] Comment on above: Performed By: #### L 500.2500, L100.0100 ####[facility] [address] [place], [address] RBC (Bld) [#/Vol] 4.51 10*6/uL Normal 4.2-5.4 [facility] Comment on above: Performed By: #### L 500.2500, L100.0100 ####[facility] [address] [place], [address] RDW SD 47.7 fl High 35.1-43.9 [facility] Comment on above: Performed By: #### L 500.2500, L100.0100 ####[facility] [address] [place], [address] WBC (Bld) [#/Vol] 9.9 10*3/uL Normal 4.4-11.0 [facility] Comment on above: Performed By: #### L 500.2500, L100.0100 ####[facility] [address] [place], [address] Carbon dioxide measurementOr dered By: Jono Casanova on 03-18-2024 CO2 [Moles/Vol] 25.0 mmol/L 21.0-32.0 [facility] Chloride measurementOrdered By: Jono Casanova on 03-18-2024 Chloride [Moles/Vol] 100 mmol/L 98-107 [facility] Emergency Department Summary on 03-18-2024 Emergency Department Summary Normal [facility] Eosinophil percentageOrdered By: Jono Casanova on 03-18-2024 Eosinophils/100 WBC (Bld) 0.9 % 0-5 [facility] Erythrocyte distribution wid th ratioOrdered By: Jono Casanova on 03-18-2024 Erythrocyte distribution width (RBC) [Ratio] 15.1 % High 11.6-14.6 [facility] Erythrocyte distribution wid th standard deviationOrdered By: Jono Casanova on 03-18-2024 Erythrocyte distribution width (RBC) [Entitic vol] 47.7 fL High 35.1-43.9 [facility] Estimated glomerular filtrat ion rate (GFR) AmericanOrdered By: Jono Casanova on 03-18-2024 Estimated GFR (MDRD) Amer 75 mL/min >60 [facility] Comment on above: GFR Calc Estimation of creatinine kalee aranceOrdered By: Jono Casanova on 03-18-2024 Estimated Creatinine Clearance Calc 38.33 ml/min [facility] Glomerular filtration rate ( GFR) estimationOrdered By: Jono Casanova on 03-18-2024 Estimated GFR (MDRD) Non-Af Amer 62 mL/min >60 [facility] Comment on above: Non- GFR Calc Glucose measurementOrdered B y: Jono Casanova on 03-18-2024 Glucose [Mass/Vol] 130 mg/dL High 74-106 [facility] Comment on above: Fasting Glucose resu lt greater than or equal to 126 mg/dL suggests DIABETES MELLITUS per A.D.A. criteria. Hematocrit Auto (Bld) [Volum e fraction]Ordered By: Jono Casanova on 03-18-2024 Hematocrit (Bld) [Volume fraction] 38.6 % 37-47 [facility] Hemoglobin measurementOrdere d By: Jono Casanova on 03-18-2024 Hemoglobin (Bld) [Mass/Vol] 12.3 g/dL 12.0-15.0 [facility] Immature granulocytes/100 WB C Auto (Bld)Ordered By: Jono Casanova on 03-18-2024 Immature granulocytes/100 WBC (Bld) 0.400 % 0.0-0.9 [facility] Comment on above: IG% - Immature Granu locytes (promyelocytes, myelocytes and metamyelocytes) > 1% indicates that a LEFT SHIFT is Present. Lymphocytes Auto (Unsp spec) [#/Vol]Ordered By: Jono Casanova on 03-18-2024 Lymphocytes (Bld) [#/Vol] 1.03 10*3/uL 0.83-4.51 [facility] Lymphocytes/100 WBC Auto (Un sp spec)Ordered By: Jono Casanova on 03-18-2024 Lymphocytes/100 WBC (Bld) 10.4 % Low 19-41 [facility] MCV (mean corpuscular volume ) determinationOrdered By: Jono Casanova on 03-18-2024 MCV (RBC) [Entitic vol] 85.6 fL 81-99 [facility] Mean corpuscular hemoglobin (MCH) determinationOrdered By: Jono Casanova on 03-18-2024 MCH (RBC) [Entitic mass] 27.3 pg 27.0-32.0 [facility] Mean corpuscular hemoglobin concentration (MCHC) determinationOrdered By: Jono Casanova on 03-18-2024 MCHC (RBC) [Mass/Vol] 31.9 g/dL Low 32-36 [place] Mean platelet volume determi nationOrdered By: Jono Casanova on 03-18-2024 Platelet mean volume (Bld) [Entitic vol] 9.7 fL 6.2-12.0 [facility] Monocyte percentageOrdered B y: Jono Casanova on 03-18-2024 Monocytes/100 WBC (Bld) 9.8 % 0-10 [facility] Neutrophil percentageOrdered By: Jono Casanova on 03-18-2024 Neutrophils/100 WBC (Bld) 77.7 % High 47-70 [facility] Nucleated red blood cell per centageOrdered By: Jono Casanova on 03-18-2024 Nucleated RBC/100 WBC (Bld) [Ratio] 0 % 0-5 [facility] Platelet countOrdered By: Brent Casanova on 03-18-2024 Platelets (Bld) [#/Vol] 326 10*3/uL 150-450 [facility] Potassium measurementOrdered By: Jono Casanova on 03-18-2024 Potassium [Moles/Vol] 3.8 mmol/L 3.5-5.1 [place] RBC Auto (Bld) [#/Vol]Ordere d By: Jono Casanova on 03-18-2024 RBC (Bld) [#/Vol] 4.51 10*6/uL 4.2-5.4 [facility] Serum anion gap measurementO rdered By: Jono Casanova on 03-18-2024 Anion gap [Moles/Vol] 10 mmol/L 5-15 [place] Serum or plasma calcium july urement (mass/volume)Ordered By: Jono Casanova on 03-18-2024 Calcium [Mass/Vol] 9.8 mg/dL 8.5-10.1 [facility] Serum or plasma creatinine m easurement (mass/volume)Ordered By: Jono Casanova on 03-18-2024 Creatinine [Mass/Vol] 0.92 mg/dL 0.55-1.02 [place] Comment on above: The validity of the calculated GFR & GFRAA in patients over 70 years has not been determined. Clinical correlation is essential. Serum or plasma urea nitroge n measurement (mass/volume)Ordered By: Jono Casanova on 03-18-2024 Urea nitrogen [Mass/Vol] 15 mg/dL 7-18 [facility] Sodium levelOrdered By: Jono Casanova on 03-18-2024 Sodium [Moles/Vol] 135 mmol/L Low 136-145 [facility] White blood cell (WBC) count Ordered By: Jono Casanova on 03-18-2024 WBC (Bld) [#/Vol] 9.9 10*3/uL 4.4-11.0 [facility] Cardiology Visit Reporton Cardiology Visit Report Normal [facility] CBC W/Diff, Automatedon 02-16 Absolute Lymph 1.41 X10 3/uL Normal 0.83-4.51 [facility] Comment on above: Order Comment: Order Date: 03/01/24Order Info: 0184-1 - CBCDOrder Info: 4679-7 - RETIC Performed By: #### L 100.0100, L501.9520, L503.6550, L503.6075, L500.4050, L100.9950 ####[facility] [address] [place], [address] Absolute Neut 5.1 X10 3/uL Normal 2.0-7.7 [facility] Comment on above: Order Comment: Order Date: 03/01/24Order Info: 018- - CBCDOrder Info: 4679-7 - RETIC Performed By: #### L 100.0100, L501.9520, L503.6550, L503.6075, L500.4050, L100.9950 ####[facility] [address] [place], [address] Basophils/100 WBC (Bld) 1.1 % High 0-1 [facility] Comment on above: Order Comment: Order Date: 03/01/24Order Info: 0184- - CBCDOrder Info: 4679-7 - RETIC Performed By: #### L 100.0100, L501.9520, L503.6550, L503.6075, L500.4050, L100.9950 ####[facility] [address] [place], [address] Eosinophils/100 WBC (Bld) 1.8 % Normal 0-5 [facility] Comment on above: Order Comment: Order Date: 03/01/24Order Info: 0184-1 - CBCDOrder Info: 4679-7 - RETIC Performed By: #### L 100.0100, L501.9520, L503.6550, L503.6075, L500.4050, L100.9950 ####[facility] [address] [place], [address] Erythrocyte distribution width (RBC) [Ratio] 15.5 % High 11.6-14.6 [facility] Comment on above: Order Comment: Order Date: 03/01/24Order Info: 0184-1 - CBCDOrder Info: 4679-7 - RETIC Performed By: #### L 100.0100, L501.9520, L503.6550, L503.6075, L500.4050, L100.9950 ####[facility] [address] [place], [address] Hematocrit (Bld) [Volume fraction] 40.3 % Normal 37-47 [facility] Comment on above: Order Comment: Order Date: 03/01/24Order Info: 0184-1 - CBCDOrder Info: 4679-7 - RETIC Performed By: #### L 100.0100, L501.9520, L503.6550, L503.6075, L500.4050, L100.9950 ####[facility] [address] [place], [address] Hemoglobin (Bld) [Mass/Vol] 13.0 g/dL Normal 12.0-15.0 [facility] Comment on above: Order Comment: Order Date: 03/01/24Order Info: 0184-1 - CBCDOrder Info: 4679-7 - RETIC Performed By: #### L 100.0100, L501.9520, L503.6550, L503.6075, L500.4050, L100.9950 ####[facility] [address] [place], [address] IG% 0.500 Normal 0.0-0.9 [facility] Comment on above: Order Comment: Order Date: 03/01/24Order Info: 0184-1 - CBCDOrder Info: 4679-7 - RETIC Result Comment: IG% - Immature Granulocytes (promyelocytes, myelocytes andmetamyelocytes) > 1% indicates that a LEFT SHIFT is Present. Performed By: #### L 100.0100, L501.9520, L503.6550, L503.6075, L500.4050, L100.9950 ####[facility] [address] [place], [address] Lymphocytes/100 WBC (Bld) 18.0 % Low 19-41 [facility] Comment on above: Order Comment: Order Date: 03/01/24Order Info: 0184-1 - CBCDOrder Info: 4679-7 - RETIC Performed By: #### L 100.0100, L501.9520, L503.6550, L503.6075, L500.4050, L100.9950 ####[facility] [address] [place], [address] MCH (RBC) [Entitic mass] 27.8 pg Normal 27.0-32.0 [facility] Comment on above: Order Comment: Order Date: 03/01/24Order Info: 0184- - CBCDOrder Info: 4679-7 - RETIC Performed By: #### L 100.0100, L501.9520, L503.6550, L503.6075, L500.4050, L100.9950 ####[facility] [address] [place], [address] MCHC (RBC) [Mass/Vol] 32.3 g/dL Normal 32-36 [place] Comment on above: Order Comment: Order Date: 03/01/24Order Info: 0184-1 - CBCDOrder Info: 4679-7 - RETIC Performed By: #### L 100.0100, L501.9520, L503.6550, L503.6075, L500.4050, L100.9950 ####[facility] [address] [place], [address] MCV (RBC) [Entitic vol] 86.1 fL Normal 81-99 [facility] Comment on above: Order Comment: Order Date: 03/01/24Order Info: 0184-1 - CBCDOrder Info: 4679-7 - RETIC Performed By: #### L 100.0100, L501.9520, L503.6550, L503.6075, L500.4050, L100.9950 ####[facility] [address] [place], [address] Monocytes/100 WBC (Bld) 13.4 % High 0-10 [facility] Comment on above: Order Comment: Order Date: 03/01/24Order Info: 0184-1 - CBCDOrder Info: 4679-7 - RETIC Performed By: #### L 100.0100, L501.9520, L503.6550, L503.6075, L500.4050, L100.9950 ####[facility] [address] [place], [address] Neutrophils/100 WBC (Bld) 65.2 % Normal 47-70 [facility] Comment on above: Order Comment: Order Date: 03/01/24Order Info: 018-1 - CBCDOrder Info: 4679-7 - RETIC Performed By: #### L 100.0100, L501.9520, L503.6550, L503.6075, L500.4050, L100.9950 ####[facility] [address] [place], [address] Nucleated RBC (Bld) [#/Vol] 0 10*3/uL Normal 0-5 [facility] Comment on above: Order Comment: Order Date: 03/01/24Order Info: 0184-1 - CBCDOrder Info: 4679-7 - RETIC Performed By: #### L 100.0100, L501.9520, L503.6550, L503.6075, L500.4050, L100.9950 ####[facility] [address] [place], [address] Platelet mean volume (Bld) [Entitic vol] 10.1 fL Normal 6.2-12.0 [facility] Comment on above: Order Comment: Order Date: 03/01/24Order Info: 0184- - CBCDOrder Info: 4679-7 - RETIC Performed By: #### L 100.0100, L501.9520, L503.6550, L503.6075, L500.4050, L100.9950 ####[facility] [address] [place], [address] Platelets (Bld) [#/Vol] 296 10*3/uL Normal 150-450 [facility] Comment on above: Order Comment: Order Date: 03/01/24Order Info: 018- - CBCDOrder Info: 4679-7 - RETIC Performed By: #### L 100.0100, L501.9520, L503.6550, L503.6075, L500.4050, L100.9950 ####[facility] [address] [place], [address] RBC (Bld) [#/Vol] 4.68 10*6/uL Normal 4.2-5.4 [facility] Comment on above: Order Comment: Order Date: 03/01/24Order Info: 0184- - CBCDOrder Info: 4679-7 - RETIC Performed By: #### L 100.0100, L501.9520, L503.6550, L503.6075, L500.4050, L100.9950 ####[facility] [address] [place], [address] RDW SD 48.3 fl High 35.1-43.9 [facility] Comment on above: Order Comment: Order Date: 03/01/24Order Info: 0184- - CBCDOrder Info: 4679-7 - RETIC Performed By: #### L 100.0100, L501.9520, L503.6550, L503.6075, L500.4050, L100.9950 ####[facility] [address] [place], [address] WBC (Bld) [#/Vol] 7.8 10*3/uL Normal 4.4-11.0 [facility] Comment on above: Order Comment: Order Date: 03/01/24Order Info: 0184-1 - CBCDOrder Info: 4679-7 - RETIC Performed By: #### L 100.0100, L501.9520, L503.6550, L503.6075, L500.4050, L100.9950 ####[facility] [address] [place], [address] Comprehensive Metabolic Prof ilon 03-02-2024 Albumin [Mass/Vol] 4.0 g/dL Normal 3.2-5.0 [facility] Comment on above: Order Comment: Order Date: 03/01/24Order Info: 0786-1 - CMPOrder Info: 3015-3 - TSHOrder Info: 2499-10 - TIBCOrder Info: 2275-4 - ROSENDO Performed By: #### L 100.0100, L501.9520, L503.6550, L503.6075, L500.4050, L100.9950 ####[facility] [address] [place], [address] Albumin/Globulin [Mass ratio] 1.0 {ratio} Normal 0.9-2.4 [facility] Comment on above: Order Comment: Order Date: 03/01/24Order Info: 0786-1 - CMPOrder Info: 3 - TSHOrder Info: 2499-10 - TIBCOrder Info: 2276-4 - ROSENDO Performed By: #### L 100.0100, L501.9520, L503.6550, L503.6075, L500.4050, L100.9950 ####[facility] [address] [place], [address] ALK P 93 U/L Normal 45-117 [facility] Comment on above: Order Comment: Order Date: 03/01/24Order Info: 0786-1 - CMPOrder Info: 3016-3 - TSHOrder Info: 2499-10 - TIBCOrder Info: 2275-07 - ROSENDO Performed By: #### L 100.0100, L501.9520, L503.6550, L503.6075, L500.4050, L100.9950 ####[facility] [address] [place], [address] ALT [Catalytic activity/Vol] 21 U/L Normal 13-56 [facility] Comment on above: Order Comment: Order Date: 03/01/24Order Info: 785- - CMPOrder Info: 3015-06 - TSHOrder Info: 2499-10 - TIBCOrder Info: 2275-07 - ROSENDO Performed By: #### L 100.0100, L501.9520, L503.6550, L503.6075, L500.4050, L100.9950 ####[facility] [address] [place], [address] AST [Catalytic activity/Vol] 19 U/L Normal 15-37 [facility] Comment on above: Order Comment: Order Date: 03/01/24Order Info: 785-04 - CMPOrder Info: 3015-06 - TSHOrder Info: 2499-10 - TIBCOrder Info: 2275-07 - ROSENDO Performed By: #### L 100.0100, L501.9520, L503.6550, L503.6075, L500.4050, L100.9950 ####[facility] [address] [place], [address] Bilirubin [Mass/Vol] 0.50 mg/dL Normal 0.20-1.00 [facility] Comment on above: Order Comment: Order Date: 03/01/24Order Info: 785- - CMPOrder Info: 3015-06 - TSHOrder Info: 2499-10 - TIBCOrder Info: 2275-07 - ROSENDO Result Comment: For patients on eltrombopag therapy, use of Dimension [place] TBIL is not recommended. Performed By: #### L 100.0100, L501.9520, L503.6550, L503.6075, L500.4050, L100.9950 ####[facility] [address] [place], [address] BUN/CRE 14.9 RATIO Normal 10-20 [facility] Comment on above: Order Comment: Order Date: 03/01/24Order Info: 86-1 - CMPOrder Info: 3015-06 - TSHOrder Info: 2499-10 - TIBCOrder Info: 2275- - ROSENDO Performed By: #### L 100.0100, L501.9520, L503.6550, L503.6075, L500.4050, L100.9950 ####[facility] [address] [place], [address] CA,Total 9.5 mg/dL Normal 8.5-10.1 [facility] Comment on above: Order Comment: Order Date: 03/01/24Order Info: 785- - CMPOrder Info: 3015-06 - TSHOrder Info: 2499-10 - TIBCOrder Info: 2275-07 - ROSENDO Performed By: #### L 100.0100, L501.9520, L503.6550, L503.6075, L500.4050, L100.9950 ####[facility] [address] [place], [address] Chloride [Moles/Vol] 100 mmol/L Normal 98-107 [facility] Comment on above: Order Comment: Order Date: 03/01/24Order Info: 785-1 - CMPOrder Info: 3 - TSHOrder Info: 2499-10 - TIBCOrder Info: 2275- - ROSENDO Performed By: #### L 100.0100, L501.9520, L503.6550, L503.6075, L500.4050, L100.9950 ####[facility] [address] [place], [address] CO2 [Moles/Vol] 27.0 mmol/L Normal 21.0-32.0 [facility] Comment on above: Order Comment: Order Date: 03/01/24Order Info: 07-1 - CMPOrder Info: 3015-06 - TSHOrder Info: 2499-10 - TIBCOrder Info: 2275-07 - ROSENDO Performed By: #### L 100.0100, L501.9520, L503.6550, L503.6075, L500.4050, L100.9950 ####[facility] [address] [place], [address] Creatinine [Mass/Vol] 0.94 mg/dL Normal 0.55-1.02 [place] Comment on above: Order Comment: Order Date: 03/01/24Order Info: 785- - CMPOrder Info: 3015-06 - TSHOrder Info: 2499-10 - TIBCOrder Info: 2275-07 - ROSENDO Result Comment: The validity of the calculated GFR GFRAA in patients over70 years has not been determined. Clinical correlation isessential. Performed By: #### L 100.0100, L501.9520, L503.6550, L503.6075, L500.4050, L100.9950 ####[facility] [address] [place], [place], [address] EST GFR - AA 73 mL/min Normal >60 [facility] Comment on above: Order Comment: Order Date: 03/01/24Order Info: 785-04 - CMPOrder Info: 3015-06 - TSHOrder Info: 2499-10 - TIBCOrder Info: 2275-07 - ROSENDO Result Comment: Afri can Faroese GFR Calc Performed By: #### L 100.0100, L501.9520, L503.6550, L503.6075, L500.4050, L100.9950 ####[facility] [address] [place], [address] GAP 7 Normal 5-15 [facility] Comment on above: Order Comment: Order Date: 03/01/24Order Info: 785- - CMPOrder Info: 3015-06 - TSHOrder Info: 2499-10 - TIBCOrder Info: 2275-07 - ROSENDO Performed By: #### L 100.0100, L501.9520, L503.6550, L503.6075, L500.4050, L100.9950 ####[facility] [address] [place], [address] GFR/1.73 sq M.predicted among non-blacks MDRD (S/P/Bld) [Vol rate/Area] 61 mL/min/{1.73_m2} Normal >60 [facility] Comment on above: Order Comment: Order Date: 03/01/24Order Info: 785-04 - CMPOrder Info: 3015-06 - TSHOrder Info: 2499-10 - TIBCOrder Info: 2275-07 - ROSENDO Result Comment: Non- GFR Calc Performed By: #### L 100.0100, L501.9520, L503.6550, L503.6075, L500.4050, L100.9950 ####[facility] [address] [place], [address] Globulin (S) [Mass/Vol] 4.0 g/dL Normal 2.2-4.2 [facility] Comment on above: Order Comment: Order Date: 03/01/24Order Info: 07 - CMPOrder Info: 3015-06 - TSHOrder Info: 2499-10 - TIBCOrder Info: 2275-07 - ROSENDO Performed By: #### L 100.0100, L501.9520, L503.6550, L503.6075, L500.4050, L100.9950 ####[facility] [address] [place], [address] Glucose [Mass/Vol] 100 mg/dL Normal 74-106 [facility] Comment on above: Order Comment: Order Date: 03/01/24Order Info: 07- - CMPOrder Info: 3015-06 - TSHOrder Info: 2499-10 - TIBCOrder Info: 2275-07 - ROSENDO Result Comment: Fast ing Glucose result from 100 to 125 mg/dLsuggests IMPAIRED HOMEOSTASIS per A.D.A. criteria. Performed By: #### L 100.0100, L501.9520, L503.6550, L503.6075, L500.4050, L100.9950 ####[facility] [address] [place], [address] Potassium [Moles/Vol] 3.7 mmol/L Normal 3.5-5.1 [place] Comment on above: Order Comment: Order Date: 03/01/24Order Info: 785- - CMPOrder Info: 3015-06 - TSHOrder Info: 2499-10 - TIBCOrder Info: 2275-07 - ROSENDO Performed By: #### L 100.0100, L501.9520, L503.6550, L503.6075, L500.4050, L100.9950 ####[facility] [address] [place], [address] Sodium [Moles/Vol] 134 mmol/L Low 136-145 [facility] Comment on above: Order Comment: Order Date: 03/01/24Order Info: 785-04 - CMPOrder Info: 3015-06 - TSHOrder Info: 2499-10 - TIBCOrder Info: 2275-07 - ROSENDO Performed By: #### L 100.0100, L501.9520, L503.6550, L503.6075, L500.4050, L100.9950 ####[facility] [address] [place], [address] T PROT 8.0 g/dL Normal 6.4-8.2 [facility] Comment on above: Order Comment: Order Date: 03/01/24Order Info: 785-1 - CMPOrder Info: 3015-06 - TSHOrder Info: 2499-10 - TIBCOrder Info: 2275-07 - ROSENDO Performed By: #### L 100.0100, L501.9520, L503.6550, L503.6075, L500.4050, L100.9950 ####[facility] [address] [place], [address] Urea nitrogen [Mass/Vol] 14 mg/dL Normal 7-18 [facility] Comment on above: Order Comment: Order Date: 03/01/24Order Info: 86-1 - CMPOrder Info: 3015-06 - TSHOrder Info: 7 - TIBCOrder Info: 2275-07 - ROSENDO Performed By: #### L 100.0100, L501.9520, L503.6550, L503.6075, L500.4050, L100.9950 ####[facility] [address] [place], [address] Ferritinon 03-02-2024 Ferritin [Mass/Vol] 24 ng/mL Normal 8-252 [facility] Comment on above: Order Comment: Order Date: 03/01/24Order Info: 785- - CMPOrder Info: 3015-06 - TSHOrder Info: 2499-10 - TIBCOrder Info: 2275-07 - ROSENDO Performed By: #### L 100.0100, L501.9520, L503.6550, L503.6075, L500.4050, L100.9950 ####[facility] [address] [place], [address] Iron Binding Capacity,Totalo n 03-02-2024 TIBC 449 ug/dL Normal 250-450 [facility] Comment on above: Order Comment: Order Date: 03/01/24Order Info: 785-1 - CMPOrder Info: 3015-06 - TSHOrder Info: 7 - TIBCOrder Info: 2275-07 - ROSENDO Performed By: #### L 100.0100, L501.9520, L503.6550, L503.6075, L500.4050, L100.9950 ####[facility] [address] [place], [address] Retic Panelon 03-02-2024 IM RET FRACTION 13.30 Normal 3.00-15.90 [facility] Comment on above: Order Comment: Order Date: 03/01/24Order Info: 018- - CBCDOrder Info: 4679-7 - RETIC Performed By: #### L 100.0100, L501.9520, L503.6550, L503.6075, L500.4050, L100.9950 ####[facility] [address] [place], [place], [address] RET-HE 29.5 pg Low 30-35 [facility] Comment on above: Order Comment: Order Date: 03/01/24Order Info: 01807-17 - CBCDOrder Info: 4679-7 - RETIC Performed By: #### L 100.0100, L501.9520, L503.6550, L503.6075, L500.4050, L100.9950 ####[facility] [address] [place], [place], [address] Retic Count 1.16 Normal 0.5-1.5 [facility] Comment on above: Order Comment: Order Date: 03/01/24Order Info: 01807-17 - CBCDOrder Info: 4679-7 - RETIC Performed By: #### L 100.0100, L501.9520, L503.6550, L503.6075, L500.4050, L100.9950 ####[facility] [address] [facility] [place], [place], [address] Thyroid Stim Hormone (TSH)on 03-02-2024 TSH 0.797 uIU/mL Normal 0.358-3.740 [facility] Comment on above: Order Comment: Order Date: 03/01/24Order Info: [id number] - CMPOrder Info: [id number] - TSHOrder Info: [id number] - TIBCOrder Info: [id number] - ROSENDO Performed By: #### L 100.0100, L501.9520, L503.6550, L503.6075, L500.4050, L100.9950 ####[facility] [id number] [place], [address] [id number] 11-27-2023 [id number] HNO ID: [id number] Author: LILA COBB OT/L Service: ? Author Type: Occupational Therapist Type: [id number] Filed: 11/27/2023 12:14 Note Text: [facility] Occupational Therapy Plan of Care Certification Patient Name: Xavier Rahman : 1940 [facility] #: [id number] Date: 11/14/2023 To: Jose Hdz MD From Therapist: JEROME Butt RE: Patient Certification/ Recertification Your review, approval and electronic signature are required in order to comply with Payor: [facility] MEDICARE / Plan: [facility] DUAL COMPLETE HMO POS SNP / Product Type: Medicare / regulations. 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 [...] ADL/IADL Recommendations: ONGOING SUPPORT FROM DAUGHTER, FRIENDS, TRAVEL GUIDE TO ASSIST WITH VARIOUS IADL'S INCLUDING MEDICATION AND FINANCE MANAGEMENT, TRANSPORTATION Driving Recommendations: REFRAIN FROM DRIVING WITH PERMANENT DRIVING CESSATION INDICATED; THIS WAS DISCUSSED WITH PATIENT AND HER DAUGHTER WITH PATIENT NOT HAPPY ABOUT SAME; THIS THERAPIST WILL PROVIDE PHYSICIAN WITH [facility] LETTER TO COMPLETE AND FORWARD TO [place] SO THAT THE LICENSE SUSPENSION PROCESS CAN BE INITIATED Recommended Complete Eye Exam: as indicated by care professional Planned Interventions, Frequency, and Duration: Current Frequency: 1 visit Duration: 1 visit Total Number of Visits Planned: 0 Patient demonstrates fair understanding of results which were discussed and agreed upon by patient/family. For further details regarding this patient refer to the Occupational Therapy electronically documented visit dated 11/14/2023. Provider Attestation I have reviewed the treatment plan for Xavier Rahman, CCF# [id number] for the period of 11/14/23 -- 12/02/23, established on 11/14/2023. Signature certifies the need for therapy services. Normal [facility] CNTHERAPYon 11-14-2023 CNTHERAPY OT/PT/Speech Visit (OTNOCA) XAVIER RAHMAN ([id number]) 1940 F Date Time Provider Department 11/14/23 1:30 PM LILA COBB Date Time Provider Department Center 11/14/2023 1:30 PM [id number] COBB [facility] Reason for Visit: OT Discharge [750] OT EVAL [748] Primary Visit Diagnosis:Cerebral infarction, unspecified mechanism (HCC) [I63.9] Other Visit Diagnoses:Dementia without behavioral disturbance (HCC) [F03.90] Driving safety issue [Z91.89] Allergies As of Date: 11/14/2023 Noted Allergy Reaction SULFA (SULFONAMIDE ANTIBIOTICS) 11/11/2014 2 - Rash Date Reviewed: 10/28/2022 Reviewed by: Jordana Flores APRN.DISEASE CONTROL INSPECTOR - Fully Assessed Prescriptions as of 01/04/2024 [...] per day Letter Text Letter Text Normal [facility] Absolute lymphocyte countOrd ered By: Jose Hdz on 07-05-2023 Lymphocytes Auto (Unsp spec) [#/Vol] 1.01 10*3/uL 0.83-4.51 [facility] Automated lymphocyte count a s percentage of total leukocytesOrdered By: Jose Hdz on 07-05-2023 Lymphocytes/100 WBC Auto (Unsp spec) 17.0 % 19-41 [facility] Basophil percentageOrdered B y: Jose Hdz on 07-05-2023 Basophils/100 WBC (Bld) 1.2 % 0-1 [facility] Bilirubin [Mass/Vol] 0.60 mg/dL 0.20-1.00 [facility] Comment on above: For patients on eltr ombopag therapy, use of Dimension [place] TBIL is not recommended. Chloride [Moles/Vol] 103 mmol/L 98-107 [facility] Eosinophils/100 WBC (Bld) 1.7 % 0-5 [facility] Glucose [Mass/Vol] 98 mg/dL 74-106 [facility] Hemoglobin (Bld) [Mass/Vol] 12.0 g/dL 12.0-15.0 [facility] Monocytes/100 WBC (Bld) 11.8 % 0-10 [facility] Neutrophils (Bld) [#/Vol] 4.1 10*3/uL 2.0-7.7 [facility] Neutrophils/100 WBC (Bld) 68.1 % 47-70 [facility] Potassium [Moles/Vol] 3.7 mmol/L 3.5-5.1 [place] Protein [Mass/Vol] 7.9 g/dL 6.4-8.2 [facility] Sodium [Moles/Vol] 136 mmol/L 136-145 [facility] WBC (Bld) [#/Vol] 6.0 10*3/uL 4.4-11.0 [facility] Determination of erythrocyte mean corpuscular volume (MCV)Ordered By: Jose Hdz on 07-05-2023 MCV (RBC) [Entitic vol] 86.9 fL 81-99 [facility] Erythrocyte distribution wid th ratioOrdered By: Jose Hdz on 07-05-2023 Erythrocyte distribution width (RBC) [Ratio] 14.6 % 11.6-14.6 [facility] Erythrocyte distribution wid th standard deviationOrdered By: Jose Hdz on 07-05-2023 Erythrocyte distribution width (RBC) [Entitic vol] 46.6 fL 35.1-43.9 [facility] Hematocrit Auto (Bld) [Volum e fraction]Ordered By: Jose Hdz on 07-05-2023 Hematocrit (Bld) [Volume fraction] 38.4 % 37-47 [facility] Immature granulocytes/100 WB C Auto (Bld)Ordered By: Jose Hdz on 07-05-2023 Immature granulocytes/100 WBC (Bld) 0.200 % 0.0-0.9 [facility] Comment on above: IG% - Immature Granu locytes (promyelocytes, myelocytes and metamyelocytes) > 1% indicates that a LEFT SHIFT is Present. Laboratory - Chemistry and C hemistry - challengeOrdered By: Jose Hdz on 07-05-2023 Albumin/Globulin [Mass ratio] 1.0 {ratio} 0.9-2.4 [facility] ALP [Catalytic activity/Vol] 100 U/L 45-117 [facility] ALT [Catalytic activity/Vol] 19 U/L 13-56 [facility] CO2 [Moles/Vol] 24.0 mmol/L 21.0-32.0 [facility] Globulin (S) [Mass/Vol] 3.9 g/dL 2.2-4.2 [facility] Urea nitrogen/Creatinine [Mass ratio] 18.1 mg/mg 10-20 [facility] Laboratory - Hematology and Cell countsOrdered By: Jose Hdz on 07-05-2023 MCH (RBC) [Entitic mass] 27.1 pg 27.0-32.0 [facility] MCHC (RBC) [Mass/Vol] 31.3 g/dL 32-36 [place] Nucleated RBC/100 WBC (Bld) [Ratio] 0 % 0-5 [facility] Platelet mean volume (Bld) [Entitic vol] 10.6 fL 6.2-12.0 [facility] Platelets (Bld) [#/Vol] 303 10*3/uL 150-450 [facility] No Panel InformationOrdered By: Jose Hdz on 07-05-2023 Estimated GFR (MDRD) Amer 100 mL/min >60 [facility] Comment on above: GFR Calc Estimated GFR (MDRD) Non-Af Amer 82 mL/min >60 [facility] Comment on above: Non- GFR Calc RBC Auto (Bld) [#/Vol]Ordere d By: Jose Hdz on 07-05-2023 RBC (Bld) [#/Vol] 4.42 10*6/uL 4.2-5.4 [facility] Serum or plasma calcium july urement (mass/volume)Ordered By: Jose Hdz on 07-05-2023 Calcium [Mass/Vol] 9.7 mg/dL 8.5-10.1 [facility] Serum or plasma creatinine m easurement (mass/volume)Ordered By: Jose Hdz on 07-05-2023 Creatinine [Mass/Vol] 0.72 mg/dL 0.55-1.02 [place] Comment on above: The validity of the calculated GFR & GFRAA in patients over 70 years has not been determined. Clinical correlation is essential. Serum or plasma urea nitroge n measurement (mass/volume)Ordered By: Jose Hdz on 07-05-2023 Urea nitrogen [Mass/Vol] 13 mg/dL 7-18 [facility] Thin prep Papanicolaou smear with manual screeningOrdered By: Jose Hdz on 07-05-2023 Thin prep Papanicolaou smear with manual screening 4.0 g/dL 3.2-5.0 [facility] Thin prep Papanicolaou smear with manual screening 18 U/L 15-37 [facility] Thin prep Papanicolaou smear with manual screening 9 5-15 [facility] Absolute lymphocyte countOrd ered By: Bernadtete Javier on 06-28-2023 Lymphocytes Auto (Unsp spec) [#/Vol] 1.14 10*3/uL 0.83-4.51 [facility] Automated lymphocyte count a s percentage of total leukocytesOrdered By: Bernadette Javier on 06-28-2023 Lymphocytes/100 WBC Auto (Unsp spec) 18.9 % 19-41 [facility] Basophil percentageOrdered B y: Bernadette Javier on 06-28-2023 Basophils/100 WBC (Bld) 1.2 % 0-1 [facility] Chloride [Moles/Vol] 109 mmol/L 98-107 [facility] Eosinophils/100 WBC (Bld) 3.8 % 0-5 [facility] Glucose [Mass/Vol] 98 mg/dL 74-106 [facility] Hemoglobin (Bld) [Mass/Vol] 11.0 g/dL 12.0-15.0 [facility] Monocytes/100 WBC (Bld) 15.1 % 0-10 [facility] Neutrophils (Bld) [#/Vol] 3.7 10*3/uL 2.0-7.7 [facility] Neutrophils/100 WBC (Bld) 60.7 % 47-70 [facility] Potassium [Moles/Vol] 4.7 mmol/L 3.5-5.1 [place] Comment on above: Moderate Hemolysis, Result may be falsely increased. Sodium [Moles/Vol] 138 mmol/L 136-145 [facility] WBC (Bld) [#/Vol] 6.0 10*3/uL 4.4-11.0 [facility] Determination of erythrocyte mean corpuscular volume (MCV)Ordered By: Bernadette Javier on 06-28-2023 MCV (RBC) [Entitic vol] 86.2 fL 81-99 [facility] Erythrocyte distribution wid th ratioOrdered By: Bernadette Javier on 06-28-2023 Erythrocyte distribution width (RBC) [Ratio] 14.9 % 11.6-14.6 [facility] Erythrocyte distribution wid th standard deviationOrdered By: Bernadette Javier on 06-28-2023 Erythrocyte distribution width (RBC) [Entitic vol] 47.4 fL 35.1-43.9 [facility] Hematocrit Auto (Bld) [Volum e fraction]Ordered By: Bernadetteeleazar Javier on 06-28-2023 Hematocrit (Bld) [Volume fraction] 34.9 % 37-47 [facility] Immature granulocytes/100 WB C Auto (Bld)Ordered By: Bernadetteeleazar Javier on 06-28-2023 Immature granulocytes/100 WBC (Bld) 0.300 % 0.0-0.9 [facility] Comment on above: IG% - Immature Granu locytes (promyelocytes, myelocytes and metamyelocytes) > 1% indicates that a LEFT SHIFT is Present. Laboratory - Chemistry and C hemistry - challengeOrdered By: Bernadette Javier on 06-28-2023 CO2 [Moles/Vol] 23.0 mmol/L 21.0-32.0 [facility] Urea nitrogen/Creatinine [Mass ratio] 17.1 mg/mg 10-20 [facility] Laboratory - Hematology and Cell countsOrdered By: Bernadette Javier on 06-28-2023 MCH (RBC) [Entitic mass] 27.2 pg 27.0-32.0 [facility] MCHC (RBC) [Mass/Vol] 31.5 g/dL 32-36 [place] Nucleated RBC/100 WBC (Bld) [Ratio] 0 % 0-5 [facility] Platelet mean volume (Bld) [Entitic vol] 10.3 fL 6.2-12.0 [facility] Platelets (Bld) [#/Vol] 246 10*3/uL 150-450 [facility] No Panel InformationOrdered By: Bernadette Javier on 06-28-2023 Estimated Creatinine Clearance Calc 33.58 ml/min [facility] Estimated GFR (MDRD) Amer 64 mL/min >60 [facility] Comment on above: GFR Calc Estimated GFR (MDRD) Non-Af Amer 53 mL/min >60 [facility] Comment on above: Non- GFR Calc RBC Auto (Bld) [#/Vol]Ordere d By: Bernadette Javier on 06-28-2023 RBC (Bld) [#/Vol] 4.05 10*6/uL 4.2-5.4 [facility] Serum or plasma calcium july urement (mass/volume)Ordered By: Bernadette Javier on 06-28-2023 Calcium [Mass/Vol] 8.9 mg/dL 8.5-10.1 [facility] Serum or plasma creatinine m easurement (mass/volume)Ordered By: Bernadette Javier on 06-28-2023 Creatinine [Mass/Vol] 1.05 mg/dL 0.55-1.02 [place] Comment on above: The validity of the calculated GFR & GFRAA in patients over 70 years has not been determined. Clinical correlation is essential. Serum or plasma urea nitroge n measurement (mass/volume)Ordered By: Bernadette Javier on 06-28-2023 Urea nitrogen [Mass/Vol] 18 mg/dL 7-18 [facility] Thin prep Papanicolaou smear with manual screeningOrdered By: Bernadette Javier on 06-28-2023 Thin prep Papanicolaou smear with manual screening 6 5-15 [facility] Basophil percentageOrdered B y: Emily Verdugo on 06-27-2023 Bilirubin [Mass/Vol] 0.60 mg/dL 0.20-1.00 [facility] Comment on above: For patients on eltr ombopag therapy, use of Dimension [place] TBIL is not recommended. Protein [Mass/Vol] 6.7 g/dL 6.4-8.2 [facility] Laboratory - Chemistry and C hemistry - challengeOrdered By: Emily Verdugo on 06-27-2023 Albumin/Globulin [Mass ratio] 1.0 {ratio} 0.9-2.4 [facility] ALP [Catalytic activity/Vol] 90 U/L 45-117 [facility] ALT [Catalytic activity/Vol] 20 U/L 13-56 [facility] Globulin (S) [Mass/Vol] 3.3 g/dL 2.2-4.2 [facility] Thin prep Papanicolaou smear with manual screeningOrdered By: Emily Verdugo on 06-27-2023 Thin prep Papanicolaou smear with manual screening 3.4 g/dL 3.2-5.0 [facility] Thin prep Papanicolaou smear with manual screening 29 U/L 15-37 [facility] Comment on above: Moderate Hemolysis, Result may be falsely increased. Absolute lymphocyte countOrd ered By: Esteban eLiva on 06-26-2023 Lymphocytes Auto (Unsp spec) [#/Vol] 0.72 10*3/uL 0.83-4.51 [facility] Automated lymphocyte count a s percentage of total leukocytesOrdered By: Esteban Leiva on 06-26-2023 Lymphocytes/100 WBC Auto (Unsp spec) 13.9 % 19-41 [facility] Basophil percentageOrdered B y: Emily Verdugo on 06-26-2023 Basophil percentage 0-5 SEEN /hpf 0-5 [facility] Basophil percentageOrdered B y: Esteban Leiva on 06-26-2023 Basophils/100 WBC (Bld) 1.7 % 0-1 [facility] Chloride [Moles/Vol] 106 mmol/L 98-107 [facility] Eosinophils/100 WBC (Bld) 2.1 % 0-5 [facility] Glucose [Mass/Vol] 100 mg/dL 74-106 [facility] Comment on above: Fasting Glucose resu lt from 100 to 125 mg/dL suggests IMPAIRED HOMEOSTASIS per A.D.A. criteria. Hemoglobin (Bld) [Mass/Vol] 12.5 g/dL 12.0-15.0 [facility] Monocytes/100 WBC (Bld) 13.7 % 0-10 [facility] Neutrophils (Bld) [#/Vol] 3.5 10*3/uL 2.0-7.7 [facility] Neutrophils/100 WBC (Bld) 68.4 % 47-70 [facility] Potassium [Moles/Vol] 4.6 mmol/L 3.5-5.1 [place] Comment on above: Moderate Hemolysis, Result may be falsely increased. Sodium [Moles/Vol] 136 mmol/L 136-145 [facility] WBC (Bld) [#/Vol] 5.2 10*3/uL 4.4-11.0 [facility] Bilirubin Test strip Ql (U)O rdered By: Emily Verdugo on 06-26-2023 Bilirubin Ql (U) Negative Negative [facility] Determination of erythrocyte mean corpuscular volume (MCV)Ordered By: Esteban Leiva on 06-26-2023 MCV (RBC) [Entitic vol] 88.4 fL 81-99 [facility] Erythrocyte distribution wid th ratioOrdered By: Esteban Leiva on 06-26-2023 Erythrocyte distribution width (RBC) [Ratio] 14.8 % 11.6-14.6 [facility] Erythrocyte distribution wid th standard deviationOrdered By: Esteban Leiva on 06-26-2023 Erythrocyte distribution width (RBC) [Entitic vol] 47.7 fL 35.1-43.9 [facility] Hematocrit Auto (Bld) [Volum e fraction]Ordered By: Esteban Leiva on 06-26-2023 Hematocrit (Bld) [Volume fraction] 40.2 % 37-47 [facility] Immature granulocytes/100 WB C Auto (Bld)Ordered By: Esteban Leiva on 06-26-2023 Immature granulocytes/100 WBC (Bld) 0.200 % 0.0-0.9 [facility] Comment on above: IG% - Immature Granu locytes (promyelocytes, myelocytes and metamyelocytes) > 1% indicates that a LEFT SHIFT is Present. Ketones Test strip Ql (U)Ord ered By: Emily Verdugo on 06-26-2023 Ketones Ql (U) Negative Negative [facility] Laboratory - Chemistry and C hemistry - challengeOrdered By: Esteban Leiva on 06-26-2023 CO2 [Moles/Vol] 26.0 mmol/L 21.0-32.0 [facility] Natriuretic peptide B (Bld) [Mass/Vol] 44.2 pg/mL 0-100 [facility] Urea nitrogen/Creatinine [Mass ratio] 18.3 mg/mg 10-20 [facility] Laboratory - Hematology and Cell countsOrdered By: Esteban Leiva on 06-26-2023 MCH (RBC) [Entitic mass] 27.5 pg 27.0-32.0 [facility] MCHC (RBC) [Mass/Vol] 31.1 g/dL 32-36 [place] Nucleated RBC/100 WBC (Bld) [Ratio] 0 % 0-5 [facility] Platelet mean volume (Bld) [Entitic vol] 9.5 fL 6.2-12.0 [facility] Platelets (Bld) [#/Vol] 244 10*3/uL 150-450 [facility] Mucus LM Ql (Urine sed)Order ed By: Emily Verdugo on 06-26-2023 Mucus Ql (Urine sed) 0 SEEN /hpf [place] Nitrite Test strip Ql (U)Ord ered By: Emily Verdugo on 06-26-2023 Nitrite Ql (U) Negative Negative [facility] No Panel InformationOrdered By: Emily Verdugo on 06-26-2023 Urine RBC 0 SEEN /hpf 0-5 [facility] No Panel InformationOrdered By: Esteban Leiva on 06-26-2023 D-Dimer Quantitative (PE/DVT) 0.89 FEU/ug/m 0.27-0.49 [facility] Comment on above: D-Dimer ELEVATED (>0 .49): Additional studies and clinicalassessments are indicated to conclude diagnosis of:Deep Vein Thrombosis (DVT) or Pulmonary Embolism (PE)D-Dimer result called to ED A Self RN 06/26/23 at 0827 by A Maris Estimated Creatinine Clearance Calc 43.00 ml/min [facility] Estimated GFR (MDRD) Amer 86 mL/min >60 [facility] Comment on above: GFR Calc Estimated GFR (MDRD) Non-Af Amer 71 mL/min >60 [facility] Comment on above: Non- GFR Calc Troponin I High Sensitivity 9 pg/mL 3.0-54.0 [facility] Comment on above: Please Note: New [place] t Units and Gender Specific Reference Ranges. For more information see Policy Stat Procedure [place] High Sensitivity Troponin (TNIH) and attachments. Protein Test strip Ql (U)Ord ered By: Emily Verdugo on 06-26-2023 Protein Ql (U) Negative Negative [facility] RBC Auto (Bld) [#/Vol]Ordere d By: Esteban Leiva on 06-26-2023 RBC (Bld) [#/Vol] 4.55 10*6/uL 4.2-5.4 [facility] Serum or plasma calcium july urement (mass/volume)Ordered By: Esteban Leiva on 06-26-2023 Calcium [Mass/Vol] 9.3 mg/dL 8.5-10.1 [facility] Serum or plasma creatinine m easurement (mass/volume)Ordered By: Esteban Leiva on 06-26-2023 Creatinine [Mass/Vol] 0.82 mg/dL 0.55-1.02 [place] Comment on above: The validity of the calculated GFR & GFRAA in patients over 70 years has not been determined. Clinical correlation is essential. Serum or plasma urea nitroge n measurement (mass/volume)Ordered By: Esteban Leiva on 06-26-2023 Urea nitrogen [Mass/Vol] 15 mg/dL 7-18 [facility] Squamous epithelial cells de tection in urine sediment by light microscopyOrdered By: Emily Verdugo on 06-26-2023 Epithelial cells.squamous LM Ql (Urine sed) 0-5 SEEN /hpf 5-10 [facility] Thin prep Papanicolaou smear with manual screeningOrdered By: Esteban Leiva on 06-26-2023 Thin prep Papanicolaou smear with manual screening 4 5-15 [facility] Urine blood detectionOrdered By: Emily White on 06-26-2023 RBC Ql (U) Negative Negative [facility] Urine clarityOrdered By: Aut umn White on 06-26-2023 Clarity (U) Sl. Cloudy Clear [facility] Urine color determinationOrd ered By: Emily White on 06-26-2023 Color (U) Yellow Yellow [facility] Urine glucose detectionOrder ed By: Emily White on 06-26-2023 Glucose Ql (U) Normal mg/dl Normal [facility] Urine leukocyte esterase det ection by dipstickOrdered By: Emily White on 06-26-2023 Leukocyte esterase Test strip Ql (U) 25 /ul Negative [facility] Urine pHOrdered By: Emily W dominick on 06-26-2023 pH (U) 6.0 [pH] 5.0 - 8.0 [facility] Urine sediment bacteria coun t by microscopy (number/high power field)Ordered By: Emily Verdugo on 06-26-2023 Bacteria LM.HPF (Urine sed) [#/Area] 0 /[HPF] None Seen [facility] Urine specific gravity measu rementOrdered By: Emily Verdugo on 06-26-2023 Specific gravity (U) [Rel density] 1.015 1.002-1.030 [facility] Urine urobilinogen measureme ntOrdered By: Emily Verdugo on 06-26-2023 Urobilinogen Ql (U) Normal mg/dl Normal [place] Absolute lymphocyte countOrd ered By: Jono Casanova on 06-11-2023 Lymphocytes Auto (Unsp spec) [#/Vol] 0.72 10*3/uL 0.83-4.51 [facility] Automated lymphocyte count a s percentage of total leukocytesOrdered By: Jono Casanova on 06-11-2023 Lymphocytes/100 WBC Auto (Unsp spec) 11.1 % 19-41 [facility] Basophil percentageOrdered B y: Jono Casanova on 06-11-2023 Basophils/100 WBC (Bld) 0.9 % 0-1 [facility] Bilirubin [Mass/Vol] 0.60 mg/dL 0.20-1.00 [facility] Comment on above: For patients on eltr ombopag therapy, use of Dimension [place] TBIL is not recommended. Chloride [Moles/Vol] 106 mmol/L 98-107 [facility] Eosinophils/100 WBC (Bld) 1.4 % 0-5 [facility] Glucose [Mass/Vol] 105 mg/dL 74-106 [facility] Comment on above: Fasting Glucose resu lt from 100 to 125 mg/dL suggests IMPAIRED HOMEOSTASIS per A.D.A. criteria. Hemoglobin (Bld) [Mass/Vol] 12.4 g/dL 12.0-15.0 [facility] Monocytes/100 WBC (Bld) 11.6 % 0-10 [facility] Neutrophils (Bld) [#/Vol] 4.8 10*3/uL 2.0-7.7 [facility] Neutrophils/100 WBC (Bld) 74.5 % 47-70 [facility] Potassium [Moles/Vol] 3.9 mmol/L 3.5-5.1 [place] Protein [Mass/Vol] 7.4 g/dL 6.4-8.2 [facility] Sodium [Moles/Vol] 136 mmol/L 136-145 [facility] WBC (Bld) [#/Vol] 6.5 10*3/uL 4.4-11.0 [facility] Determination of erythrocyte mean corpuscular volume (MCV)Ordered By: Jono Casanova on 06-11-2023 MCV (RBC) [Entitic vol] 87.5 fL 81-99 [facility] Erythrocyte distribution wid th ratioOrdered By: Jono Casanova on 06-11-2023 Erythrocyte distribution width (RBC) [Ratio] 14.9 % 11.6-14.6 [facility] Erythrocyte distribution wid th standard deviationOrdered By: Jono Casanova on 06-11-2023 Erythrocyte distribution width (RBC) [Entitic vol] 47.8 fL 35.1-43.9 [facility] Hematocrit Auto (Bld) [Volum e fraction]Ordered By: Jono Casanova on 06-11-2023 Hematocrit (Bld) [Volume fraction] 38.4 % 37-47 [facility] Immature granulocytes/100 WB C Auto (Bld)Ordered By: Jono Casanova on 06-11-2023 Immature granulocytes/100 WBC (Bld) 0.500 % 0.0-0.9 [facility] Comment on above: IG% - Immature Granu locytes (promyelocytes, myelocytes and metamyelocytes) > 1% indicates that a LEFT SHIFT is Present. Laboratory - Chemistry and C hemistry - challengeOrdered By: Jono Casanova on 06-11-2023 Albumin/Globulin [Mass ratio] 1.1 {ratio} 0.9-2.4 [facility] ALP [Catalytic activity/Vol] 93 U/L 45-117 [facility] ALT [Catalytic activity/Vol] 20 U/L 13-56 [facility] CO2 [Moles/Vol] 24.0 mmol/L 21.0-32.0 [facility] Globulin (S) [Mass/Vol] 3.5 g/dL 2.2-4.2 [facility] Natriuretic peptide B (Bld) [Mass/Vol] 50.3 pg/mL 0-100 [facility] Urea nitrogen/Creatinine [Mass ratio] 15.7 mg/mg 10-20 [facility] Laboratory - Hematology and Cell countsOrdered By: Jono Casanova on 06-11-2023 MCH (RBC) [Entitic mass] 28.2 pg 27.0-32.0 [facility] MCHC (RBC) [Mass/Vol] 32.3 g/dL 32-36 [place] Nucleated RBC/100 WBC (Bld) [Ratio] 0 % 0-5 [facility] Platelet mean volume (Bld) [Entitic vol] 9.2 fL 6.2-12.0 [facility] Platelets (Bld) [#/Vol] 252 10*3/uL 150-450 [facility] No Panel InformationOrdered By: Jono Casanova on 06-11-2023 Estimated GFR (MDRD) Amer 93 mL/min >60 [facility] Comment on above: GFR Calc Estimated GFR (MDRD) Non-Af Amer 77 mL/min >60 [facility] Comment on above: Non- GFR Calc Troponin I High Sensitivity 8 pg/mL 3.0-54.0 [facility] Comment on above: Please Note: New [place] t Units and Gender Specific Reference Ranges. For more information see Policy Stat Procedure [place] High Sensitivity Troponin (TNIH) and attachments. RBC Auto (Bld) [#/Vol]Ordere d By: Jono Casanova on 06-11-2023 RBC (Bld) [#/Vol] 4.39 10*6/uL 4.2-5.4 [facility] Serum or plasma calcium july urement (mass/volume)Ordered By: Jono Casanova on 06-11-2023 Calcium [Mass/Vol] 9.6 mg/dL 8.5-10.1 [facility] Serum or plasma creatinine m easurement (mass/volume)Ordered By: Jono Casanova on 06-11-2023 Creatinine [Mass/Vol] 0.76 mg/dL 0.55-1.02 [place] Comment on above: The validity of the calculated GFR & GFRAA in patients over 70 years has not been determined. Clinical correlation is essential. Serum or plasma urea nitroge n measurement (mass/volume)Ordered By: Jono Casanova on 06-11-2023 Urea nitrogen [Mass/Vol] 12 mg/dL 7-18 [facility] Thin prep Papanicolaou smear with manual screeningOrdered By: Jono Casanova on 06-11-2023 Thin prep Papanicolaou smear with manual screening 3.9 g/dL 3.2-5.0 [facility] Thin prep Papanicolaou smear with manual screening 25 U/L 15-37 [facility] Thin prep Papanicolaou smear with manual screening 6 5-15 [facility] Absolute lymphocyte countOrd ered By: Genny Worley on 04-28-2023 Lymphocytes Auto (Unsp spec) [#/Vol] 1.10 10*3/uL 0.83-4.51 [facility] Basophil percentageOrdered B y: Genny Worley on 04-28-2023 Basophil percentage 0-5 SEEN /hpf 0-5 [facility] Basophils/100 WBC (Bld) 1.1 % 0-1 [facility] Chloride [Moles/Vol] 98 mmol/L 98-107 [facility] Eosinophils/100 WBC (Bld) 1.2 % 0-5 [facility] Glucose [Mass/Vol] 95 mg/dL 74-106 [facility] Neutrophils (Bld) [#/Vol] 5.3 10*3/uL 2.0-7.7 [facility] Neutrophils/100 WBC (Bld) 71.7 % 47-70 [facility] Potassium [Moles/Vol] 3.7 mmol/L 3.5-5.1 [place] Sodium [Moles/Vol] 132 mmol/L 136-145 [facility] WBC (Bld) [#/Vol] 7.4 10*3/uL 4.4-11.0 [facility] Bilirubin Test strip Ql (U)O rdered By: Genny Worley on 04-28-2023 Bilirubin Ql (U) Negative Negative [facility] Blood erythrocytes count (nu mber/volume)Ordered By: Genny Worley on 04-28-2023 RBC (Bld) [#/Vol] 4.69 10*6/uL 4.2-5.4 [facility] Blood hemoglobin measurement (mass/volume)Ordered By: Genny Worley on 04-28-2023 Hemoglobin (Bld) [Mass/Vol] 12.7 g/dL 12.0-15.0 [facility] Blood lymphocytes/100 leukoc ytesOrdered By: Genny Worley on 04-28-2023 Lymphocytes/100 WBC (Bld) 14.9 % 19-41 [facility] Blood monocytes/100 leukocyt esOrdered By: Genny Worley on 04-28-2023 Monocytes/100 WBC (Bld) 10.8 % 0-10 [facility] Blood platelet mean volumeOr dered By: Genny Worley on 04-28-2023 Platelet mean volume (Bld) [Entitic vol] 9.4 fL 6.2-12.0 [facility] Determination of erythrocyte mean corpuscular volume (MCV)Ordered By: Genny Worley on 04-28-2023 MCV (RBC) [Entitic vol] 86.1 fL 81-99 [facility] Hematocrit Auto (Bld) [Volum e fraction]Ordered By: Genny Worley on 04-28-2023 Hematocrit (Bld) [Volume fraction] 40.4 % 37-47 [facility] Ketones Test strip Ql (U)Ord ered By: Genny Worley on 04-28-2023 Ketones Ql (U) Negative Negative [facility] Laboratory - Chemistry and C hemistry - challengeOrdered By: Genny Worley on 04-28-2023 CO2 [Moles/Vol] 28.0 mmol/L 21.0-32.0 [facility] Urea nitrogen/Creatinine [Mass ratio] 15.1 mg/mg 10-20 [facility] Laboratory - Hematology and Cell countsOrdered By: Genny Worley on 04-28-2023 Erythrocyte distribution width (RBC) [Entitic vol] 45.3 fL 35.1-43.9 [facility] Erythrocyte distribution width (RBC) [Ratio] 14.5 % 11.6-14.6 [facility] Immature granulocytes/100 WBC (Bld) 0.300 % 0.0-0.9 [facility] Comment on above: IG% - Immature Granu locytes (promyelocytes, myelocytes and metamyelocytes) > 1% indicates that a LEFT SHIFT is Present. MCH (RBC) [Entitic mass] 27.1 pg 27.0-32.0 [facility] Nucleated RBC/100 WBC (Bld) [Ratio] 0 % 0-5 [facility] Laboratory - Microbiology an d Antimicrobial susceptibilityOrdered By: Genny Worley on 04-28-2023 SARS-CoV-2 (COVID-19) RNA ADRY+probe Ql (Unsp spec) [facility] SARS-CoV-2 (COVID-19) RNA ADRY+probe Ql (Unsp spec) [facility] MCHC Auto (RBC) [Mass/Vol]Or dered By: Genny Wroley on 04-28-2023 MCHC (RBC) [Mass/Vol] 31.4 g/dL 32-36 [place] Mucus LM Ql (Urine sed)Order ed By: Genny Worley on 04-28-2023 Mucus Ql (Urine sed) 0 SEEN /hpf [place] Nitrite Test strip Ql (U)Ord ered By: Genny Worley on 04-28-2023 Nitrite Ql (U) Negative Negative [facility] No Panel InformationOrdered By: Genny Worley on 04-28-2023 Estimated Creatinine Clearance Calc 41.72 ml/min [facility] Estimated GFR (MDRD) Amer 81 mL/min >60 [facility] Comment on above: GFR Calc Estimated GFR (MDRD) Non-Af Amer 67 mL/min >60 [facility] Comment on above: Non- GFR Calc Troponin I High Sensitivity 8 pg/mL 3.0-54.0 [facility] Comment on above: Please Note: New [place] t Units and Gender Specific Reference Ranges. For more information see Policy Stat Procedure [place] High Sensitivity Troponin (TNIH) and attachments. Platelets bldOrdered By: Cecelia Worley on 04-28-2023 Platelets (Bld) [#/Vol] 251 10*3/uL 150-450 [facility] Protein Test strip Ql (U)Ord ered By: Genny Worley on 04-28-2023 Protein Ql (U) Negative Negative [facility] Serum or plasma calcium july urement (mass/volume)Ordered By: Genny Worley on 04-28-2023 Calcium [Mass/Vol] 9.2 mg/dL 8.5-10.1 [facility] Serum or plasma creatinine m easurement (mass/volume)Ordered By: Genny Worley on 04-28-2023 Creatinine [Mass/Vol] 0.86 mg/dL 0.55-1.02 [place] Comment on above: The validity of the calculated GFR & GFRAA in patients over 70 years has not been determined. Clinical correlation is essential. Serum or plasma urea nitroge n measurement (mass/volume)Ordered By: Genny Worley on 04-28-2023 Urea nitrogen [Mass/Vol] 13 mg/dL 7-18 [facility] Squamous epithelial cells de tection in urine sediment by light microscopyOrdered By: Genny Worley on 04-28-2023 Epithelial cells.squamous LM Ql (Urine sed) 5-10 SEEN /hpf 5-10 [facility] Thin prep Papanicolaou smear with manual screeningOrdered By: Genny Worley on 04-28-2023 Thin prep Papanicolaou smear with manual screening 6 5-15 [facility] Urine blood detectionOrdered By: Genny Worley on 04-28-2023 RBC Ql (U) Negative Negative [facility] RBC Ql (U) 0 SEEN /hpf 0-5 [facility] Urine clarityOrdered By: Cecelia Worley on 04-28-2023 Clarity (U) Clear Clear [facility] Urine color determinationOrd ered By: Genny Worley on 04-28-2023 Color (U) Straw Yellow [facility] Urine glucose detectionOrder ed By: Genny Worley on 04-28-2023 Glucose Ql (U) Normal mg/dl Normal [facility] Urine leukocyte esterase det ection by dipstickOrdered By: Genny Worley on 04-28-2023 Leukocyte esterase Test strip Ql (U) 25 /ul Negative [facility] Urine pHOrdered By: Genny Worley on 04-28-2023 pH (U) 7.0 [pH] 5.0 - 8.0 [facility] Urine sediment bacteria coun t by microscopy (number/high power field)Ordered By: Genny Worley on 04-28-2023 Bacteria LM.HPF (Urine sed) [#/Area] 0 /[HPF] None Seen [facility] Urine specific gravity measu rementOrdered By: Genny Worley on 04-28-2023 Specific gravity (U) [Rel density] 1.010 1.002-1.030 [facility] Urobilinogen Auto test strip Ql (U)Ordered By: eGnny Worley on 04-28-2023 Urobilinogen Ql (U) Normal mg/dl Normal [place] Absolute lymphocyte countOrd ered By: Jose Goins on 04-02-2023 Lymphocytes Auto (Unsp spec) [#/Vol] 1.32 10*3/uL 0.83-4.51 [facility] Basophil percentageOrdered B y: Jose Goins on 04-02-2023 Basophils/100 WBC (Bld) 1.6 % 0-1 [facility] Chloride [Moles/Vol] 101 mmol/L 98-107 [facility] Eosinophils/100 WBC (Bld) 1.4 % 0-5 [facility] Glucose [Mass/Vol] 113 mg/dL 74-106 [facility] Comment on above: Fasting Glucose resu lt from 100 to 125 mg/dL suggests IMPAIRED HOMEOSTASIS per A.D.A. criteria. Neutrophils (Bld) [#/Vol] 4.8 10*3/uL 2.0-7.7 [facility] Neutrophils/100 WBC (Bld) 67.3 % 47-70 [facility] Potassium [Moles/Vol] 3.5 mmol/L 3.5-5.1 [place] Sodium [Moles/Vol] 136 mmol/L 136-145 [facility] WBC (Bld) [#/Vol] 7.1 10*3/uL 4.4-11.0 [facility] Blood erythrocytes count (nu mber/volume)Ordered By: Jose Goins on 04-02-2023 RBC (Bld) [#/Vol] 4.88 10*6/uL 4.2-5.4 [facility] Blood hemoglobin measurement (mass/volume)Ordered By: Jose Goins on 04-02-2023 Hemoglobin (Bld) [Mass/Vol] 13.5 g/dL 12.0-15.0 [facility] Blood lymphocytes/100 leukoc ytesOrdered By: Jose Goins on 04-02-2023 Lymphocytes/100 WBC (Bld) 18.6 % 19-41 [facility] Blood monocytes/100 leukocyt esOrdered By: Jose Goins on 04-02-2023 Monocytes/100 WBC (Bld) 10.7 % 0-10 [facility] Blood platelet mean volumeOr dered By: Jose Goins on 04-02-2023 Platelet mean volume (Bld) [Entitic vol] 9.3 fL 6.2-12.0 [facility] Determination of erythrocyte mean corpuscular volume (MCV)Ordered By: Jose Goins on 04-02-2023 MCV (RBC) [Entitic vol] 85.9 fL 81-99 [facility] Glucose Glucometer (dC) [M ass/Vol]Ordered By: Jose Goins on 04-02-2023 Glucose [Mass/Vol] 100 mg/dL 74-106 [facility] Comment on above: MANAGEMENT OF PATIEN T CARE PER NURSING PROTOCOL Hematocrit Auto (Bld) [Volum e fraction]Ordered By: Jose Goins on 04-02-2023 Hematocrit (Bld) [Volume fraction] 41.9 % 37-47 [facility] Laboratory - Chemistry and C hemistry - challengeOrdered By: Jose Goins on 04-02-2023 CO2 [Moles/Vol] 28.0 mmol/L 21.0-32.0 [facility] Urea nitrogen/Creatinine [Mass ratio] 11.2 mg/mg 10-20 [facility] Laboratory - CoagulationOrde red By: Jose Goins on 04-02-2023 aPTT Coag (Bld) [Time] 33.4 s 24.1-36.2 [facility] PT Coag (PPP) [Time] 12.2 s 11.7-14.9 [facility] Laboratory - Hematology and Cell countsOrdered By: Jose Goins on 04-02-2023 Erythrocyte distribution width (RBC) [Entitic vol] 45.1 fL 35.1-43.9 [facility] Erythrocyte distribution width (RBC) [Ratio] 14.5 % 11.6-14.6 [facility] Immature granulocytes/100 WBC (Bld) 0.400 % 0.0-0.9 [facility] Comment on above: IG% - Immature Granu locytes (promyelocytes, myelocytes and metamyelocytes) > 1% indicates that a LEFT SHIFT is Present. MCH (RBC) [Entitic mass] 27.7 pg 27.0-32.0 [facility] Nucleated RBC/100 WBC (Bld) [Ratio] 0 % 0-5 [facility] MCHC Auto (RBC) [Mass/Vol]Or dered By: Jose Goins on 04-02-2023 MCHC (RBC) [Mass/Vol] 32.2 g/dL 32-36 [place] No Panel InformationOrdered By: Jose Goins on 04-02-2023 Estimated Creatinine Clearance Calc 44.30 ml/min [facility] Estimated GFR (MDRD) Amer 87 mL/min >60 [facility] Comment on above: GFR Calc Estimated GFR (MDRD) Non-Af Amer 72 mL/min >60 [facility] Comment on above: Non- GFR Calc Troponin I High Sensitivity 9 pg/mL 3.0-54.0 [facility] Comment on above: Please Note: New [place] t Units and Gender Specific Reference Ranges. For more information see Policy Stat Procedure [place] High Sensitivity Troponin (TNIH) and attachments. Platelets bldOrdered By: Lluvia Goins on 04-02-2023 Platelets (Bld) [#/Vol] 256 10*3/uL 150-450 [facility] Serum or plasma calcium july urement (mass/volume)Ordered By: Jose Goins on 04-02-2023 Calcium [Mass/Vol] 9.3 mg/dL 8.5-10.1 [facility] Serum or plasma creatinine m easurement (mass/volume)Ordered By: Jose Goins on 04-02-2023 Creatinine [Mass/Vol] 0.81 mg/dL 0.55-1.02 [place] Comment on above: The validity of the calculated GFR & GFRAA in patients over 70 years has not been determined. Clinical correlation is essential. Serum or plasma urea nitroge n measurement (mass/volume)Ordered By: Jose Goins on 04-02-2023 Urea nitrogen [Mass/Vol] 9 mg/dL 7-18 [facility] Thin prep Papanicolaou smear with manual screeningOrdered By: Jose Goins on 04-02-2023 Thin prep Papanicolaou smear with manual screening 7 5-15 [facility] Whole blood international no rmalized ratio (INR)Ordered By: Jose Goins on 04-02-2023 INR Coag (Bld) [Relative time] 0.9 {INR} [facility] Basophil percentageOrdered B y: Jose Hdz on 01-18-2023 Bilirubin [Mass/Vol] 0.70 mg/dL 0.20-1.00 [facility] Comment on above: For patients on eltr ombopag therapy, use of Dimension [place] TBIL is not recommended. Chloride [Moles/Vol] 97 mmol/L 98-107 [facility] Glucose [Mass/Vol] 96 mg/dL 74-106 [facility] Potassium [Moles/Vol] 3.7 mmol/L 3.5-5.1 [place] Protein [Mass/Vol] 7.9 g/dL 6.4-8.2 [facility] Sodium [Moles/Vol] 133 mmol/L 136-145 [facility] Laboratory - Chemistry and C hemistry - challengeOrdered By: Jose Hdz on 01-18-2023 ALP [Catalytic activity/Vol] 89 U/L 45-117 [facility] ALT [Catalytic activity/Vol] 26 U/L 13-56 [facility] CO2 [Moles/Vol] 27.0 mmol/L 21.0-32.0 [facility] Globulin (S) [Mass/Vol] 3.6 g/dL 2.2-4.2 [facility] Magnesium [Mass/Vol] 2.3 mg/dL 1.6-2.6 [facility] Urea nitrogen/Creatinine [Mass ratio] 17.7 mg/mg 10-20 [facility] No Panel InformationOrdered By: Jose Hdz on 01-18-2023 Estimated GFR (MDRD) Amer 89 mL/min >60 [facility] Comment on above: GFR Calc Estimated GFR (MDRD) Non-Af Amer 74 mL/min >60 [facility] Comment on above: Non- GFR Calc Serum or plasma albumin july urement (mass/volume)Ordered By: Jose Hdz on 01-18-2023 Albumin [Mass/Vol] 4.3 g/dL 3.2-5.0 [facility] Serum or plasma albumin/glob ulin mass ratioOrdered By: Jose Hdz on 01-18-2023 Albumin/Globulin [Mass ratio] 1.2 {ratio} 0.9-2.4 [facility] Serum or plasma calcium july urement (mass/volume)Ordered By: Jose Hdz on 01-18-2023 Calcium [Mass/Vol] 9.9 mg/dL 8.5-10.1 [facility] Serum or plasma creatinine m easurement (mass/volume)Ordered By: Jose Hdz on 01-18-2023 Creatinine [Mass/Vol] 0.79 mg/dL 0.55-1.02 [place] Comment on above: The validity of the calculated GFR & GFRAA in patients over 70 years has not been determined. Clinical correlation is essential. Serum or plasma urea nitroge n measurement (mass/volume)Ordered By: Jose Hdz on 01-18-2023 Urea nitrogen [Mass/Vol] 14 mg/dL 7-18 [facility] Thin prep Papanicolaou smear with manual screeningOrdered By: Jose Hdz on 01-18-2023 Thin prep Papanicolaou smear with manual screening 26 U/L 15-37 [facility] Thin prep Papanicolaou smear with manual screening 9 5-15 [facility] Absolute lymphocyte countOrd ered By: Jose Hdz on 01-06-2023 Lymphocytes Auto (Unsp spec) [#/Vol] 1.37 10*3/uL 0.83-4.51 [facility] Basophil percentageOrdered B y: ED PROVIDER on 01-06-2023 Chloride [Moles/Vol] 96 mmol/L 98-107 [facility] Glucose [Mass/Vol] 134 mg/dL 74-106 [facility] Comment on above: Fasting Glucose resu lt greater than or equal to 126 mg/dL suggests DIABETES MELLITUS per A.D.A. criteria. Potassium [Moles/Vol] 2.9 mmol/L 3.5-5.1 [place] Comment on above: Slight Hemolysis, Re sult may be falsely increased. Sodium [Moles/Vol] 133 mmol/L 136-145 [facility] Basophil percentageOrdered B y: Jose Hdz on 01-06-2023 Basophils/100 WBC (Bld) 1.2 % 0-1 [facility] Bilirubin [Mass/Vol] 0.50 mg/dL 0.20-1.00 [facility] Comment on above: For patients on eltr ombopag therapy, use of Dimension [place] TBIL is not recommended. Chloride [Moles/Vol] 98 mmol/L 98-107 [facility] Eosinophils/100 WBC (Bld) 3.1 % 0-5 [facility] Glucose [Mass/Vol] 124 mg/dL 74-106 [facility] Comment on above: Fasting Glucose resu lt from 100 to 125 mg/dL suggests IMPAIRED HOMEOSTASIS per A.D.A. criteria. Neutrophils (Bld) [#/Vol] 4.0 10*3/uL 2.0-7.7 [facility] Neutrophils/100 WBC (Bld) 61.9 % 47-70 [facility] Potassium [Moles/Vol] 2.7 mmol/L 3.5-5.1 [place] Comment on above: Critical Result(s) C alled at: 19:05:31 01/06/2023 by: NONA VERDUGO TO DR. JULIO PHELPS. Results read back by same. Protein [Mass/Vol] 7.9 g/dL 6.4-8.2 [facility] Sodium [Moles/Vol] 133 mmol/L 136-145 [facility] WBC (Bld) [#/Vol] 6.4 10*3/uL 4.4-11.0 [facility] Blood erythrocytes count (nu mber/volume)Ordered By: Jose Hdz on 01-06-2023 RBC (Bld) [#/Vol] 4.78 10*6/uL 4.2-5.4 [facility] Blood hemoglobin measurement (mass/volume)Ordered By: Jose Hdz on 01-06-2023 Hemoglobin (Bld) [Mass/Vol] 13.7 g/dL 12.0-15.0 [facility] Blood lymphocytes/100 leukoc ytesOrdered By: Jose Hdz on 01-06-2023 Lymphocytes/100 WBC (Bld) 21.3 % 19-41 [facility] Blood monocytes/100 leukocyt esOrdered By: Jose Hdz on 01-06-2023 Monocytes/100 WBC (Bld) 12.0 % 0-10 [facility] Blood platelet mean volumeOr dered By: Jose Hdz on 01-06-2023 Platelet mean volume (Bld) [Entitic vol] 10.5 fL 6.2-12.0 [facility] Determination of erythrocyte mean corpuscular volume (MCV)Ordered By: Jose Hdz on 01-06-2023 MCV (RBC) [Entitic vol] 89.1 fL 81-99 [facility] Hematocrit Auto (Bld) [Volum e fraction]Ordered By: Jose Hdz on 01-06-2023 Hematocrit (Bld) [Volume fraction] 42.6 % 37-47 [facility] Laboratory - Chemistry and C hemistry - challengeOrdered By: ED PROVIDER on 01-06-2023 CO2 [Moles/Vol] 30.0 mmol/L 21.0-32.0 [facility] Urea nitrogen/Creatinine [Mass ratio] 16.8 mg/mg 10- [facility] Laboratory - Chemistry and C hemistry - challengeOrdered By: Jose Hdz on 01-06-2023 ALP [Catalytic activity/Vol] 101 U/L 45-117 [facility] ALT [Catalytic activity/Vol] 28 U/L 13-56 [facility] CO2 [Moles/Vol] 28.0 mmol/L 21.0-32.0 [facility] Free T4 [Mass/Vol] 1.28 ng/dL 0.76-1.46 [facility] Globulin (S) [Mass/Vol] 4.0 g/dL 2.2-4.2 [facility] Urea nitrogen/Creatinine [Mass ratio] 14.5 mg/mg 10- [facility] Laboratory - Hematology and Cell countsOrdered By: Jose Hdz on 01-06-2023 Erythrocyte distribution width (RBC) [Entitic vol] 45.1 fL 35.1-43.9 [facility] Erythrocyte distribution width (RBC) [Ratio] 13.8 % 11.6-14.6 [facility] Immature granulocytes/100 WBC (Bld) 0.500 % 0.0-0.9 [facility] Comment on above: IG% - Immature Granu locytes (promyelocytes, myelocytes and metamyelocytes) > 1% indicates that a LEFT SHIFT is Present. MCH (RBC) [Entitic mass] 28.7 pg 27.0-32.0 [facility] Nucleated RBC/100 WBC (Bld) [Ratio] 0 % 0-5 [facility] MCHC Auto (RBC) [Mass/Vol]Or dered By: Jose Hdz on 01-06-2023 MCHC (RBC) [Mass/Vol] 32.2 g/dL 32-36 [place] No Panel InformationOrdered By: ED PROVIDER on 01-06-2023 Estimated Creatinine Clearance Calc 35.88 ml/min [facility] Estimated GFR (MDRD) Amer 100 mL/min >60 [facility] Comment on above: GFR Calc Estimated GFR (MDRD) Non-Af Amer 83 mL/min >60 [facility] Comment on above: Non- GFR Calc No Panel InformationOrdered By: Jose Hdz on 01-06-2023 Estimated GFR (MDRD) Amer 104 mL/min >60 [facility] Comment on above: GFR Calc Estimated GFR (MDRD) Non-Af Amer 86 mL/min >60 [facility] Comment on above: Non- GFR Calc Thyroid Stimulating Hormone (TSH) 0.65 uIU/mL 0.358-3.74 [facility] Platelets bldOrdered By: Lluvia Hdz on 01-06-2023 Platelets (Bld) [#/Vol] 284 10*3/uL 150-450 [facility] Serum or plasma albumin july urement (mass/volume)Ordered By: Jose Hdz on 01-06-2023 Albumin [Mass/Vol] 3.9 g/dL 3.2-5.0 [facility] Serum or plasma albumin/glob ulin mass ratioOrdered By: Jose Hdz on 01-06-2023 Albumin/Globulin [Mass ratio] 1.0 {ratio} 0.9-2.4 [facility] Serum or plasma calcium july urement (mass/volume)Ordered By: ED PROVIDER on 01-06-2023 Calcium [Mass/Vol] 9.9 mg/dL 8.5-10.1 [facility] Serum or plasma calcium july urement (mass/volume)Ordered By: Jose Hdz on 01-06-2023 Calcium [Mass/Vol] 9.6 mg/dL 8.5-10.1 [facility] Serum or plasma creatinine m easurement (mass/volume)Ordered By: ED PROVIDER on 01-06-2023 Creatinine [Mass/Vol] 0.72 mg/dL 0.55-1.02 [place] Comment on above: The validity of the calculated GFR & GFRAA in patients over 70 years has not been determined. Clinical correlation is essential. Serum or plasma creatinine m easurement (mass/volume)Ordered By: Jose Hdz on 01-06-2023 Creatinine [Mass/Vol] 0.69 mg/dL 0.55-1.02 [place] Comment on above: The validity of the calculated GFR & GFRAA in patients over 70 years has not been determined. Clinical correlation is essential. Serum or plasma urea nitroge n measurement (mass/volume)Ordered By: ED PROVIDER on 01-06-2023 Urea nitrogen [Mass/Vol] 12 mg/dL 11-02 [facility] Serum or plasma urea nitroge n measurement (mass/volume)Ordered By: Jose Hdz on 01-06-2023 Urea nitrogen [Mass/Vol] 10 mg/dL 11-02 [facility] Thin prep Papanicolaou smear with manual screeningOrdered By: ED PROVIDER on 01-06-2023 Thin prep Papanicolaou smear with manual screening 7 08-30 [facility] Thin prep Papanicolaou smear with manual screeningOrdered By: Jose Hdz on 01-06-2023 Thin prep Papanicolaou smear with manual screening 24 U/L [facility] Thin prep Papanicolaou smear with manual screening 7 08-30 [facility] Culture, urineOrdered By: Monica Charlton on 11-19-2022 Bacteria identified Cx Nom (U) Presumptive E. coli [facility] Harriet 11-17-2022 JAYCE Telephone ([facility]) LACEYXAVIER ([id number]) 1940 F Date Time Provider Department 11/17/22 JORDANA FLORES During your visit today, we recorded the following information about you: Karina John 11/17/2022 10:02 AM Signed Patient was scheduled for a Tilt Test Tomorrow at [facility], however she received a call today stating that her Horticultural Nursery Assistant Doctor told them that she does not need the test and it should be canceled. She does not know if she should move forward with the test now or not since it was a different Provider cancelling it. Please call patient at [phone] to advise. Thank you! Delaney Coulter, RN 11/17/2022 10:25 AM Signed Test has not been canceled. Did not speak with physician. Patient was informed that cardiology does not feel is necessary. No additional information was given. No further explanation. 11/08 loop monitor was applied, nothing mentioned at that time regarding TTT Scheduled 9am tomorrow Routing to provider for review Jordana Flores APRN.DISEASE CONTROL INSPECTOR 11/17/2022 10:28 AM Signed If her carpenter assistant does not feel tilt table is recommended it can be cancelled. Please ensure patient discussed orthostatic results that were obtained in the office with her carpenter assistant prior to cancelling. Want to make sure he is aware of drop in BP. Marii Hassan LPN 11/17/2022 10:57 AM Signed TC to carpenter assistant Dr. Sidhu. Spoke with clinical staff who states she will look into it. Gave her orthos taken in office over phone and she will give us a call back if pt needs to continue with test or if she can cancel it. AVINASH Solomon Sherrie, ANNIE 11/17/2022 11:29 AM Signed Xavier at Dr. [...] and authorized to use. ANNIE Parra Kristen, APRN.DISEASE CONTROL INSPECTOR 11/17/2022 12:56 PM Signed Ok to cancel tilt table testing. Marii Hassan LPN 11/17/2022 1:56 PM Signed TC to pt who is okay with cancelling tilt table. TC to [facility] to cancel test. Marii Hassan LPN Allergies As of Date: 11/17/2022 Noted Allergy Reaction SULFA (SULFONAMIDE ANTIBIOTICS) 11/11/2014 2 - Rash Date Reviewed: 10/28/2022 Reviewed by: Jordana Flores APRN.DISEASE CONTROL INSPECTOR - Fully Assessed Reason for Visit: Appointment [...] (83 mg) (more content not included)... Normal [facility] Basophil percentageOrdered B y: Catalino Sidhu on 11-08-2022 Chloride [Moles/Vol] 98 mmol/L 98-107 [facility] Glucose [Mass/Vol] 103 mg/dL 74-106 [facility] Comment on above: Fasting Glucose resu lt from 100 to 125 mg/dL suggests IMPAIRED HOMEOSTASIS per A.D.A. criteria. Potassium [Moles/Vol] 3.5 mmol/L 3.5-5.1 [place] Sodium [Moles/Vol] 132 mmol/L 136-145 [facility] Laboratory - Chemistry and C hemistry - challengeOrdered By: Catalino Sidhu on 11-08-2022 CO2 [Moles/Vol] 29.0 mmol/L 21.0-32.0 [facility] Urea nitrogen/Creatinine [Mass ratio] 18.3 mg/mg 10-20 [facility] No Panel InformationOrdered By: Catalino Sidhu on 11-08-2022 Estimated Creatinine Clearance Calc 40.77 ml/min [facility] Estimated GFR (MDRD) Amer 80 mL/min >60 [facility] Comment on above: GFR Calc Estimated GFR (MDRD) Non-Af Amer 66 mL/min >60 [facility] Comment on above: Non- GFR Calc Serum or plasma calcium july urement (mass/volume)Ordered By: Catalino Sidhu on 11-08-2022 Calcium [Mass/Vol] 9.8 mg/dL 8.5-10.1 [facility] Serum or plasma creatinine m easurement (mass/volume)Ordered By: Catalino Sidhu on 11-08-2022 Creatinine [Mass/Vol] 0.88 mg/dL 0.55-1.02 [place] Comment on above: The validity of the calculated GFR & GFRAA in patients over 70 years has not been determined. Clinical correlation is essential. Serum or plasma urea nitroge n measurement (mass/volume)Ordered By: Catalino Sidhu on 11-08-2022 Urea nitrogen [Mass/Vol] 16 mg/dL 7-18 [facility] Thin prep Papanicolaou smear with manual screeningOrdered By: Catalino Sidhu on 11-08-2022 Thin prep Papanicolaou smear with manual screening 5 5-15 [facility] CNOVon 10-28-2022 CNOV Office Visit ([facility] ) XAVIER RAHMAN ([id number]) 1940 F Date Time Provider Department 10/28/22 3:30 PM JORDANA FLORES During your visit today, we recorded the following information about you: Pulse Respiration Blood pressure Weight 67/minute 16/minute 132/73 56.5 kg Jordana Flores APRN.DISEASE CONTROL INSPECTOR 11/01/2022 10:01 AM Signed [facility] New Patient Visit New Patient Consultation October [...] are limited as pt was seen at [facility]. Per ED note on 10/13/22: Chief [...] listen to (more content not included)... Normal [facility] Basophil percentageOrdered B y: Emily White on 10-18-2022 Cholesterol [Mass/Vol] 149 mg/dL <200 [facility] Comment on above: <200 mg/dL Desirable 200-240 mg/dL Borderline >240 mg/dL High Risk Triglyceride [Mass/Vol] 184 mg/dL <199 [facility] Comment on above: The drugs N-Acetylcy steine and Metamizole may falsely depress this assay.Serum Triglycerides Reference Interval Normal <150 mg/dL Borderline high 150 - 199 mg/dL High 200 - 499 mg/dL Very High > or = 500 mg/dL Serum or plasma cholesterol in HDL measurement (mass/volume)Ordered By: Emily Verdugo on 10-18-2022 Cholesterol in HDL [Mass/Vol] 58 mg/dL >40 [facility] Comment on above: The drugs N-Acetylcy steine and Metamizole may falsely depress this assay. Reference Range HDL <40 mg/dL Low HDL Cholesterol HDL >or= 60 mg/dL High HDL Cholesterol Serum or plasma cholesterol in VLDL measurement (mass/volume)Ordered By: Emily Verdugo on 10-18-2022 Cholesterol in VLDL [Mass/Vol] 37 mg/dL 5-40 [facility] Serum or plasma low density lipoprotein (LDL) cholesterol measurement (mass/volume)Ordered By: Emily Verdugo on 10-18-2022 Cholesterol in LDL [Mass/Vol] 54 mg/dL 0-130 [facility] Absolute lymphocyte countOrd ered By: Emily Verdugo on 10-17-2022 Lymphocytes Auto (Unsp spec) [#/Vol] 1.25 10*3/uL 0.83-4.51 [facility] Basophil percentageOrdered B y: Emily Verdugo on 10-17-2022 Basophils/100 WBC (Bld) 1.3 % 0-1 [facility] Bilirubin [Mass/Vol] 0.50 mg/dL 0.20-1.00 [facility] Comment on above: For patients on eltr ombopag therapy, use of Dimension [place] TBIL is not recommended. Chloride [Moles/Vol] 103 mmol/L 98-107 [facility] Eosinophils/100 WBC (Bld) 1.3 % 0-5 [facility] Glucose [Mass/Vol] 93 mg/dL 74-106 [facility] Neutrophils (Bld) [#/Vol] 3.1 10*3/uL 2.0-7.7 [facility] Neutrophils/100 WBC (Bld) 59.1 % 47-70 [facility] Potassium [Moles/Vol] 3.5 mmol/L 3.5-5.1 [place] Protein [Mass/Vol] 6.6 g/dL 6.4-8.2 [facility] Sodium [Moles/Vol] 134 mmol/L 136-145 [facility] WBC (Bld) [#/Vol] 5.3 10*3/uL 4.4-11.0 [facility] Blood erythrocytes count (nu mber/volume)Ordered By: Emily Verdugo on 10-17-2022 RBC (Bld) [#/Vol] 4.11 10*6/uL 4.2-5.4 [facility] Blood hemoglobin measurement (mass/volume)Ordered By: Emily Verdugo on 10-17-2022 Hemoglobin (Bld) [Mass/Vol] 11.9 g/dL 12.0-15.0 [facility] Blood lymphocytes/100 leukoc ytesOrdered By: Emily Verdugo on 10-17-2022 Lymphocytes/100 WBC (Bld) 23.8 % 19-41 [facility] Blood monocytes/100 leukocyt esOrdered By: Emily Verdugo on 10-17-2022 Monocytes/100 WBC (Bld) 14.1 % 0-10 [facility] Blood platelet mean volumeOr dered By: Emily Verdugo on 10-17-2022 Platelet mean volume (Bld) [Entitic vol] 9.4 fL 6.2-12.0 [facility] Determination of erythrocyte mean corpuscular volume (MCV)Ordered By: Emily Verdugo on 10-17-2022 MCV (RBC) [Entitic vol] 90.0 fL 81-99 [facility] Hematocrit Auto (Bld) [Volum e fraction]Ordered By: Emily Verdugo on 10-17-2022 Hematocrit (Bld) [Volume fraction] 37.0 % 37-47 [facility] Laboratory - Chemistry and C hemistry - challengeOrdered By: Emily Verdugo on 10-17-2022 ALP [Catalytic activity/Vol] 58 U/L 45-117 [facility] ALT [Catalytic activity/Vol] 26 U/L 13-56 [facility] CO2 [Moles/Vol] 26.0 mmol/L 21.0-32.0 [facility] Free T4 [Mass/Vol] 1.10 ng/dL 0.76-1.46 [facility] Globulin (S) [Mass/Vol] 3.2 g/dL 2.2-4.2 [facility] Urea nitrogen/Creatinine [Mass ratio] 17.9 mg/mg 10-20 [facility] Laboratory - Drug toxicology Ordered By: Emily Verdugo on 10-17-2022 Amphetamines Ql (U) Negative <1000 ng/mL [facility] Benzodiazepines Ql (U) Negative < 200 ng/mL [facility] Cannabinoids Screen Ql (U) Negative < 50 ng/mL [facility] Cocaine Ql (U) Negative < 300 ng/mL [facility] Opiates Ql (U) Negative < 300 ng/mL [facility] Laboratory - Hematology and Cell countsOrdered By: Emily Verdugo on 10-17-2022 Erythrocyte distribution width (RBC) [Entitic vol] 48.9 fL 35.1-43.9 [facility] Erythrocyte distribution width (RBC) [Ratio] 14.8 % 11.6-14.6 [facility] Immature granulocytes/100 WBC (Bld) 0.400 % 0.0-0.9 [facility] Comment on above: IG% - Immature Granu locytes (promyelocytes, myelocytes and metamyelocytes) > 1% indicates that a LEFT SHIFT is Present. MCH (RBC) [Entitic mass] 29.0 pg 27.0-32.0 [facility] Nucleated RBC/100 WBC (Bld) [Ratio] 0 % 0-5 [facility] MCHC Auto (RBC) [Mass/Vol]Or dered By: Emily Verdugo on 10-17-2022 MCHC (RBC) [Mass/Vol] 32.2 g/dL 32-36 [place] No Panel InformationOrdered By: Emily Verdugo on 10-17-2022 MDMA (Ecstasy) Screen Negative < 500 ng/mL [facility] Urine Barbiturates Screen Negative < 200 ng/mL [facility] Urine Drug Screen Comment [facility] Comment on above: CONFIRMATORY TESTING FOR [...] Methadone Screen Negative < 300 ng/mL [facility] Estimated Creatinine Clearance Calc 35.88 ml/min [facility] Estimated GFR (MDRD) Amer 91 mL/min >60 [facility] Comment on above: GFR Calc Estimated GFR (MDRD) Non-Af Amer 75 mL/min >60 [facility] Comment on above: Non- GFR Calc Thyroid Stimulating Hormone (TSH) 1.02 uIU/mL 0.358-3.74 [facility] Platelets bldOrdered By: Torres Verdugo on 10-17-2022 Platelets (Bld) [#/Vol] 225 10*3/uL 150-450 [facility] Serum or plasma albumin july urement (mass/volume)Ordered By: Emily Verdugo on 10-17-2022 Albumin [Mass/Vol] 3.4 g/dL 3.2-5.0 [facility] Serum or plasma albumin/glob ulin mass ratioOrdered By: Emily Verdugo on 10-17-2022 Albumin/Globulin [Mass ratio] 1.1 {ratio} 0.9-2.4 [facility] Serum or plasma calcium july urement (mass/volume)Ordered By: Emily Verdugo on 10-17-2022 Calcium [Mass/Vol] 9.1 mg/dL 8.5-10.1 [facility] Serum or plasma creatinine m easurement (mass/volume)Ordered By: Emily Verdugo on 10-17-2022 Creatinine [Mass/Vol] 0.78 mg/dL 0.55-1.02 [place] Comment on above: The validity of the calculated GFR & GFRAA in patients over 70 years has not been determined. Clinical correlation is essential. Serum or plasma urea nitroge n measurement (mass/volume)Ordered By: Emily Verdugo on 10-17-2022 Urea nitrogen [Mass/Vol] 14 mg/dL 7-18 [facility] Thin prep Papanicolaou smear with manual screeningOrdered By: Emily Verdugo on 10-17-2022 Thin prep Papanicolaou smear with manual screening 20 U/L 15-37 [facility] Thin prep Papanicolaou smear with manual screening 5 5-15 [facility] Urine phencyclidine (PCP) de tectionOrdered By: Emily Verdugo on 10-17-2022 Phencyclidine Ql (U) Negative < 25 ng/mL [facility] Whole blood hemoglobin A1c/t otal hemoglobin ratio (mass fraction)Ordered By: Emily Verdugo on 10-17-2022 HbA1c (Bld) [Mass fraction] 5.6 % 3.8-5.6 [facility] Comment on above: Normal < 5.7 % Predi abetic 5.7 - 6.4 % Diabetic >or= 6.5 % Please note range changes. Absolute lymphocyte countOrd ered By: Terry Vuong on 10-16-2022 Lymphocytes Auto (Unsp spec) [#/Vol] 1.32 10*3/uL 0.83-4.51 [facility] Basophil percentageOrdered B y: Terry Vuong on 10-16-2022 Basophils/100 WBC (Bld) 0.9 % 0-1 [facility] Chloride [Moles/Vol] 99 mmol/L 98-107 [facility] Eosinophils/100 WBC (Bld) 1.6 % 0-5 [facility] Glucose [Mass/Vol] 105 mg/dL 74-106 [facility] Comment on above: Fasting Glucose resu lt from 100 to 125 mg/dL suggests IMPAIRED HOMEOSTASIS per A.D.A. criteria. Neutrophils (Bld) [#/Vol] 4.1 10*3/uL 2.0-7.7 [facility] Neutrophils/100 WBC (Bld) 60.6 % 47-70 [facility] Potassium [Moles/Vol] 3.6 mmol/L 3.5-5.1 [place] Sodium [Moles/Vol] 132 mmol/L 136-145 [facility] WBC (Bld) [#/Vol] 6.7 10*3/uL 4.4-11.0 [facility] Blood erythrocytes count (nu mber/volume)Ordered By: Terry Vuong on 10-16-2022 RBC (Bld) [#/Vol] 4.46 10*6/uL 4.2-5.4 [facility] Blood hemoglobin measurement (mass/volume)Ordered By: Terry Vuong on 10-16-2022 Hemoglobin (Bld) [Mass/Vol] 13.2 g/dL 12.0-15.0 [facility] Blood lymphocytes/100 leukoc ytesOrdered By: Terry Vuong on 10-16-2022 Lymphocytes/100 WBC (Bld) 19.7 % 19-41 [facility] Blood monocytes/100 leukocyt esOrdered By: Terry Vuong on 10-16-2022 Monocytes/100 WBC (Bld) 16.8 % 0-10 [facility] Blood platelet mean volumeOr dered By: Terry Vuong on 10-16-2022 Platelet mean volume (Bld) [Entitic vol] 9.0 fL 6.2-12.0 [facility] Determination of erythrocyte mean corpuscular volume (MCV)Ordered By: Terry Vuong on 10-16-2022 MCV (RBC) [Entitic vol] 89.7 fL 81-99 [facility] Glucose Glucometer (BldC) [M ass/Vol]Ordered By: Terry Vuong on 10-16-2022 Glucose [Mass/Vol] 109 mg/dL 74-106 [facility] Comment on above: MANAGEMENT OF PATIEN T CARE PER NURSING PROTOCOL Hematocrit Auto (Bld) [Volum e fraction]Ordered By: Terry Vuong on 10-16-2022 Hematocrit (Bld) [Volume fraction] 40.0 % 37-47 [facility] INR in Blood by Coagulation assayOrdered By: Terry Vuong on 10-16-2022 INR Coag (Bld) [Relative time] 1.0 {INR} [facility] Laboratory - Chemistry and C hemistry - challengeOrdered By: Terry Vuong on 10-16-2022 CO2 [Moles/Vol] 28.0 mmol/L 21.0-32.0 [facility] Urea nitrogen/Creatinine [Mass ratio] 14.3 mg/mg 10-20 [facility] Laboratory - Chemistry and C hemistry - challengeOrdered By: Emily Verdugo on 10-16-2022 Magnesium [Mass/Vol] 2.2 mg/dL 1.6-2.6 [facility] Laboratory - CoagulationOrde red By: Terry Vuong on 10-16-2022 aPTT Coag (Bld) [Time] 33.1 s 24.1-36.2 [facility] PT Coag (PPP) [Time] 13.4 s 11.7-14.9 [facility] Laboratory - Hematology and Cell countsOrdered By: Terry Vuong on 10-16-2022 Erythrocyte distribution width (RBC) [Entitic vol] 48.7 fL 35.1-43.9 [facility] Erythrocyte distribution width (RBC) [Ratio] 14.8 % 11.6-14.6 [facility] Immature granulocytes/100 WBC (Bld) 0.400 % 0.0-0.9 [facility] Comment on above: IG% - Immature Granu locytes (promyelocytes, myelocytes and metamyelocytes) > 1% indicates that a LEFT SHIFT is Present. MCH (RBC) [Entitic mass] 29.6 pg 27.0-32.0 [facility] Nucleated RBC/100 WBC (Bld) [Ratio] 0 % 0-5 [facility] MCHC Auto (RBC) [Mass/Vol]Or dered By: Terry Vuong on 10-16-2022 MCHC (RBC) [Mass/Vol] 33.0 g/dL 32-36 [place] No Panel InformationOrdered By: Terry Vuong on 10-16-2022 Estimated Creatinine Clearance Calc 38.22 ml/min [facility] Estimated GFR (MDRD) Amer 70 mL/min >60 [facility] Comment on above: GFR Calc Estimated GFR (MDRD) Non-Af Amer 58 mL/min >60 [facility] Comment on above: Non- GFR Calc Ethyl Alcohol Level < 3.0 mg/dL [facility] Comment on above: The serum:whole bloo d ethanol ratio is approximately 1.14and varies slightly with hematocrit. Medical Alcohol reference interval and critical value innon-tolerant individuals; 50 - 100 Impairment 100 Intoxication 100 - 250 Severe Poisoning 250 - 400 Deep/possible fatal coma Troponin I High Sensitivity 11 pg/mL 3.0-54.0 [facility] Comment on above: Please Note: New Letty t Units and Gender Specific Reference Ranges. For more information see Policy Stat Procedure [place] High Sensitivity Troponin (TNIH) and attachments. Platelets bldOrdered By: Evangelist Vuong on 10-16-2022 Platelets (Bld) [#/Vol] 248 10*3/uL 150-450 [facility] Serum or plasma calcium july urement (mass/volume)Ordered By: Terry Vuong on 10-16-2022 Calcium [Mass/Vol] 10.1 mg/dL 8.5-10.1 [facility] Serum or plasma creatinine m easurement (mass/volume)Ordered By: Terry Vuong on 10-16-2022 Creatinine [Mass/Vol] 0.98 mg/dL 0.55-1.02 [place] Comment on above: The validity of the calculated GFR & GFRAA in patients over 70 years has not been determined. Clinical correlation is essential. Serum or plasma urea nitroge n measurement (mass/volume)Ordered By: Terry Vuong on 10-16-2022 Urea nitrogen [Mass/Vol] 14 mg/dL 7-18 [facility] Thin prep Papanicolaou smear with manual screeningOrdered By: Terry Vuong on 10-16-2022 Thin prep Papanicolaou smear with manual screening 5 5-15 [facility] Absolute lymphocyte countOrd ered By: Yoel Cam on 10-12-2022 Lymphocytes Auto (Unsp spec) [#/Vol] 1.07 10*3/uL 0.83-4.51 [facility] Basophil percentageOrdered B y: Yoel Cam on 10-12-2022 Basophils/100 WBC (Bld) 0.9 % 0-1 [facility] Chloride [Moles/Vol] 101 mmol/L 98-107 [facility] Eosinophils/100 WBC (Bld) 1.7 % 0-5 [facility] Glucose [Mass/Vol] 119 mg/dL 74-106 [facility] Comment on above: Fasting Glucose resu lt from 100 to 125 mg/dL suggests IMPAIRED HOMEOSTASIS per A.D.A. criteria. Neutrophils (Bld) [#/Vol] 3.2 10*3/uL 2.0-7.7 [facility] Neutrophils/100 WBC (Bld) 60.2 % 47-70 [facility] Potassium [Moles/Vol] 3.3 mmol/L 3.5-5.1 [place] Sodium [Moles/Vol] 132 mmol/L 136-145 [facility] WBC (Bld) [#/Vol] 5.3 10*3/uL 4.4-11.0 [facility] Blood erythrocytes count (nu mber/volume)Ordered By: Yoel Cam on 10-12-2022 RBC (Bld) [#/Vol] 3.87 10*6/uL 4.2-5.4 [facility] Blood hemoglobin measurement (mass/volume)Ordered By: Yoel Cam on 10-12-2022 Hemoglobin (Bld) [Mass/Vol] 11.3 g/dL 12.0-15.0 [facility] Blood lymphocytes/100 leukoc ytesOrdered By: Yoel Cam on 10-12-2022 Lymphocytes/100 WBC (Bld) 20.2 % 19-41 [facility] Blood monocytes/100 leukocyt esOrdered By: Yoel Cam on 10-12-2022 Monocytes/100 WBC (Bld) 16.6 % 0-10 [facility] Blood platelet mean volumeOr dered By: Yoel Cam on 10-12-2022 Platelet mean volume (Bld) [Entitic vol] 9.2 fL 6.2-12.0 [facility] Determination of erythrocyte mean corpuscular volume (MCV)Ordered By: Yoel Cam on 10-12-2022 MCV (RBC) [Entitic vol] 88.9 fL 81-99 [facility] Hematocrit Auto (Bld) [Volum e fraction]Ordered By: Yoel Cam on 10-12-2022 Hematocrit (Bld) [Volume fraction] 34.4 % 37-47 [facility] INR in Blood by Coagulation assayOrdered By: Yoel Cam on 10-12-2022 INR Coag (Bld) [Relative time] 1.1 {INR} [facility] Laboratory - Chemistry and C hemistry - challengeOrdered By: Yoel Cam on 10-12-2022 CO2 [Moles/Vol] 23.0 mmol/L 21.0-32.0 [facility] Urea nitrogen/Creatinine [Mass ratio] 14.9 mg/mg 10-20 [facility] Laboratory - CoagulationOrde red By: Yoel Cam on 10-12-2022 aPTT Coag (Bld) [Time] 33.8 s 24.1-36.2 [facility] PT Coag (PPP) [Time] 14.2 s 11.7-14.9 [facility] Laboratory - Hematology and Cell countsOrdered By: Yoel Cam on 10-12-2022 Erythrocyte distribution width (RBC) [Entitic vol] 49.9 fL 35.1-43.9 [facility] Erythrocyte distribution width (RBC) [Ratio] 15.2 % 11.6-14.6 [facility] Immature granulocytes/100 WBC (Bld) 0.400 % 0.0-0.9 [facility] Comment on above: IG% - Immature Granu locytes (promyelocytes, myelocytes and metamyelocytes) > 1% indicates that a LEFT SHIFT is Present. MCH (RBC) [Entitic mass] 29.2 pg 27.0-32.0 [facility] Nucleated RBC/100 WBC (Bld) [Ratio] 0 % 0-5 [facility] MCHC Auto (RBC) [Mass/Vol]Or dered By: Yoel Cam on 10-12-2022 MCHC (RBC) [Mass/Vol] 32.8 g/dL 32-36 [place] No Panel InformationOrdered By: Yoel Cam on 10-12-2022 Estimated Creatinine Clearance Calc 39.85 ml/min [facility] Estimated GFR (MDRD) Amer 74 mL/min >60 [facility] Comment on above: GFR Calc Estimated GFR (MDRD) Non-Af Amer 61 mL/min >60 [facility] Comment on above: Non- GFR Calc Platelets bldOrdered By: Francesco Cam on 10-12-2022 Platelets (Bld) [#/Vol] 205 10*3/uL 150-450 [facility] Serum or plasma calcium july urement (mass/volume)Ordered By: Yoel Cam on 10-12-2022 Calcium [Mass/Vol] 8.5 mg/dL 8.5-10.1 [facility] Serum or plasma creatinine m easurement (mass/volume)Ordered By: Yoel Cam on 10-12-2022 Creatinine [Mass/Vol] 0.94 mg/dL 0.55-1.02 [place] Comment on above: The validity of the calculated GFR & GFRAA in patients over 70 years has not been determined. Clinical correlation is essential. Serum or plasma urea nitroge n measurement (mass/volume)Ordered By: Yoel Cam on 10-12-2022 Urea nitrogen [Mass/Vol] 14 mg/dL 7-18 [facility] Thin prep Papanicolaou smear with manual screeningOrdered By: Yoel Cam on 10-12-2022 Thin prep Papanicolaou smear with manual screening 8 5-15 [facility] Absolute lymphocyte countOrd ered By: Dr. Vuong on 09-07-2022 Lymphocytes Auto (Unsp spec) [#/Vol] 1.36 10*3/uL 0.83-4.51 [facility] Basophil percentageOrdered B y: Dr. Vuong on 09-07-2022 Basophils/100 WBC (Bld) 0.6 % 0-1 [facility] Chloride [Moles/Vol] 89 mmol/L 98-107 [facility] Eosinophils/100 WBC (Bld) 1.0 % 0-5 [facility] Glucose [Mass/Vol] 99 mg/dL 74-106 [facility] Neutrophils (Bld) [#/Vol] 4.4 10*3/uL 2.0-7.7 [facility] Neutrophils/100 WBC (Bld) 65.1 % 47-70 [facility] Potassium [Moles/Vol] 3.3 mmol/L 3.5-5.1 [place] Sodium [Moles/Vol] 123 mmol/L 136-145 [facility] WBC (Bld) [#/Vol] 6.7 10*3/uL 4.4-11.0 [facility] Blood erythrocytes count (nu mber/volume)Ordered By: Dr. Vuong on 09-07-2022 RBC (Bld) [#/Vol] 4.83 10*6/uL 4.2-5.4 [facility] Blood hemoglobin measurement (mass/volume)Ordered By: Dr. Vuong on 05-23-2023 Hemoglobin (Bld) [Mass/Vol] 13.8 g/dL 12.0-15.0 [facility] Blood lymphocytes/100 leukoc ytesOrdered By: Dr. Vuong on 09-07-2022 Lymphocytes/100 WBC (Bld) 20.2 % 19-41 [facility] Blood monocytes/100 leukocyt esOrdered By: Dr. Vuong on 09-07-2022 Monocytes/100 WBC (Bld) 12.5 % 0-10 [facility] Blood platelet mean volumeOr dered By: Dr. Vuong on 09-07-2022 Platelet mean volume (Bld) [Entitic vol] 9.4 fL 6.2-12.0 [facility] Determination of erythrocyte mean corpuscular volume (MCV)Ordered By: Dr. Vuong on 09-07-2022 MCV (RBC) [Entitic vol] 86.5 fL 81-99 [facility] Hematocrit Auto (Bld) [Volum e fraction]Ordered By: Dr. Vuong on 09-07-2022 Hematocrit (Bld) [Volume fraction] 41.8 % 37-47 [facility] Laboratory - Chemistry and C hemistry - challengeOrdered By: Dr. Vuong on 09-07-2022 CO2 [Moles/Vol] 25.0 mmol/L 21.0-32.0 [facility] Urea nitrogen/Creatinine [Mass ratio] 18.6 mg/mg 10-20 [facility] Laboratory - Hematology and Cell countsOrdered By: Dr. Vuong on 09-07-2022 Erythrocyte distribution width (RBC) [Entitic vol] 46.2 fL 35.1-43.9 [facility] Erythrocyte distribution width (RBC) [Ratio] 14.6 % 11.6-14.6 [facility] Immature granulocytes/100 WBC (Bld) 0.600 % 0.0-0.9 [facility] Comment on above: IG% - Immature Granu locytes (promyelocytes, myelocytes and metamyelocytes) > 1% indicates that a LEFT SHIFT is Present. MCH (RBC) [Entitic mass] 28.6 pg 27.0-32.0 [facility] Nucleated RBC/100 WBC (Bld) [Ratio] 0 % 0-5 [facility] MCHC Auto (RBC) [Mass/Vol]Or dered By: Dr. Vuong on 09-07-2022 MCHC (RBC) [Mass/Vol] 33.0 g/dL 32-36 [place] No Panel InformationOrdered By: Dr. Vuong on 09-07-2022 Estimated Creatinine Clearance Calc 37.45 ml/min [facility] Estimated GFR (MDRD) Amer 95 mL/min >60 [facility] Comment on above: GFR Calc Estimated GFR (MDRD) Non-Af Amer 78 mL/min >60 [facility] Comment on above: Non- GFR Calc Ethyl Alcohol Level 79.0 mg/dL [facility] Comment on above: The serum:whole bloo d ethanol ratio is approximately 1.14and varies slightly with hematocrit. Medical Alcohol reference interval and critical value innon-tolerant individuals; 50 - 100 Impairment 100 Intoxication 100 - 250 Severe Poisoning 250 - 400 Deep/possible fatal coma Platelets bldOrdered By: Dr. Vuong on 09-07-2022 Platelets (Bld) [#/Vol] 229 10*3/uL 150-450 [facility] Serum or plasma calcium july urement (mass/volume)Ordered By: Dr. Vuong on 09-07-2022 Calcium [Mass/Vol] 9.3 mg/dL 8.5-10.1 [facility] Serum or plasma creatinine m easurement (mass/volume)Ordered By: Dr. Vuong on 09-07-2022 Creatinine [Mass/Vol] 0.75 mg/dL 0.55-1.02 [place] Comment on above: The validity of the calculated GFR & GFRAA in patients over 70 years has not been determined. Clinical correlation is essential. Serum or plasma urea nitroge n measurement (mass/volume)Ordered By: Dr. Vuong on 09-07-2022 Urea nitrogen [Mass/Vol] 14 mg/dL 7-18 [facility] Thin prep Papanicolaou smear with manual screeningOrdered By: Dr. Vuong on 09-07-2022 Thin prep Papanicolaou smear with manual screening 9 5-15 [facility] Basophil percentageOrdered B y: Dr. Hdz on 08-09-2022 Chloride [Moles/Vol] 100 mmol/L 98-107 [facility] Glucose [Mass/Vol] 165 mg/dL 74-106 [facility] Comment on above: Slight Lipemia, Resu lt may be falsely increased.Fasting Glucose result greater than or equal to 126 mg/dL suggests DIABETES MELLITUS per A.D.A. criteria. Potassium [Moles/Vol] 3.5 mmol/L 3.5-5.1 [place] Comment on above: Slight Lipemia, Resu lt may be falsely increased. Sodium [Moles/Vol] 132 mmol/L 136-145 [facility] Laboratory - Chemistry and C hemistry - challengeOrdered By: Dr. Hdz on 08-09-2022 CO2 [Moles/Vol] 26.0 mmol/L 21.0-32.0 [facility] Comment on above: Slight Lipemia, Resu lt may be falsely increased. Magnesium [Mass/Vol] 2.4 mg/dL 1.6-2.6 [facility] Comment on above: Slight Lipemia, Resu lt may be falsely increased. Urea nitrogen/Creatinine [Mass ratio] 14.6 mg/mg 10-20 [facility] No Panel InformationOrdered By: Dr. Hdz on 08-09-2022 Estimated GFR (MDRD) Amer 85 mL/min >60 [facility] Comment on above: GFR Calc Estimated GFR (MDRD) Non-Af Amer 71 mL/min >60 [facility] Comment on above: Non- GFR Calc Serum or plasma calcium july urement (mass/volume)Ordered By: Dr. Hdz on 08-09-2022 Calcium [Mass/Vol] 9.5 mg/dL 8.5-10.1 [facility] Comment on above: Slight Lipemia, Resu lt may be falsely increased. Serum or plasma creatinine m easurement (mass/volume)Ordered By: Dr. Hdz on 08-09-2022 Creatinine [Mass/Vol] 0.82 mg/dL 0.55-1.02 [place] Comment on above: Slight Lipemia, Resu lt may be falsely increased.The validity of the calculated GFR & GFRAA in patients over 70 years has not been determined. Clinical correlation is essential. Serum or plasma urea nitroge n measurement (mass/volume)Ordered By: Dr. Hdz on 08-09-2022 Urea nitrogen [Mass/Vol] 12 mg/dL 7-18 [facility] Comment on above: Slight Lipemia, Resu lt may be falsely increased. Thin prep Papanicolaou smear with manual screeningOrdered By: Dr. Hdz on 08-09-2022 Thin prep Papanicolaou smear with manual screening 6 5-15 [facility] Absolute lymphocyte countOrd ered By: Dr. Verdugo on 06-14-2022 Lymphocytes Auto (Unsp spec) [#/Vol] 1.28 10*3/uL 0.83-4.51 [facility] Basophil percentageOrdered B y: Dr. Verdugo on 06-14-2022 Bilirubin [Mass/Vol] 0.50 mg/dL 0.20-1.00 [facility] Comment on above: For patients on eltr ombopag therapy, use of Dimension [place] TBIL is not recommended. Chloride [Moles/Vol] 108 mmol/L 98-107 [facility] Cholesterol [Mass/Vol] 207 mg/dL <200 [facility] Comment on above: <200 mg/dL Desirable 200-240 mg/dL Borderline >240 mg/dL High Risk Glucose [Mass/Vol] 95 mg/dL 74-106 [facility] Potassium [Moles/Vol] 3.2 mmol/L 3.5-5.1 [place] Protein [Mass/Vol] 7.2 g/dL 6.4-8.2 [facility] Sodium [Moles/Vol] 139 mmol/L 136-145 [facility] Triglyceride [Mass/Vol] 212 mg/dL <199 [facility] Comment on above: The drugs N-Acetylcy steine and Metamizole may falsely depress this assay.Serum Triglycerides Reference Interval Normal <150 mg/dL Borderline high 150 - 199 mg/dL High 200 - 499 mg/dL Very High > or = 500 mg/dL Basophils/100 WBC (Bld) 1.1 % 0-1 [facility] Eosinophils/100 WBC (Bld) 2.5 % 0-5 [facility] Neutrophils (Bld) [#/Vol] 2.6 10*3/uL 2.0-7.7 [facility] Neutrophils/100 WBC (Bld) 53.8 % 47-70 [facility] WBC (Bld) [#/Vol] 4.8 10*3/uL 4.4-11.0 [facility] Blood erythrocytes count (nu mber/volume)Ordered By: Dr. Verdugo on 06-14-2022 RBC (Bld) [#/Vol] 4.01 10*6/uL 4.2-5.4 [facility] Blood hemoglobin measurement (mass/volume)Ordered By: Dr. Verdugo on 06-14-2022 Hemoglobin (Bld) [Mass/Vol] 11.2 g/dL 12.0-15.0 [facility] Blood lymphocytes/100 leukoc ytesOrdered By: Dr. Verdugo on 06-14-2022 Lymphocytes/100 WBC (Bld) 26.9 % 19-41 [facility] Blood monocytes/100 leukocyt esOrdered By: Dr. Verdugo on 06-14-2022 Monocytes/100 WBC (Bld) 15.5 % 0-10 [facility] Blood platelet mean volumeOr dered By: Dr. Verdugo on 06-14-2022 Platelet mean volume (Bld) [Entitic vol] 9.9 fL 6.2-12.0 [facility] Determination of erythrocyte mean corpuscular volume (MCV)Ordered By: Dr. Verdugo on 06-14-2022 MCV (RBC) [Entitic vol] 87.5 fL 81-99 [facility] Hematocrit Auto (Bld) [Volum e fraction]Ordered By: Dr. Verdugo on 06-14-2022 Hematocrit (Bld) [Volume fraction] 35.1 % 37-47 [facility] Laboratory - Chemistry and C hemistry - challengeOrdered By: Dr. Verdugo on 06-14-2022 ALP [Catalytic activity/Vol] 67 U/L 45-117 [facility] ALT [Catalytic activity/Vol] 22 U/L 13-56 [facility] CO2 [Moles/Vol] 24.0 mmol/L 21.0-32.0 [facility] Globulin (S) [Mass/Vol] 3.6 g/dL 2.2-4.2 [facility] Urea nitrogen/Creatinine [Mass ratio] 9.4 mg/mg 10-20 [facility] Laboratory - Hematology and Cell countsOrdered By: Dr. Verdugo on 06-14-2022 Erythrocyte distribution width (RBC) [Entitic vol] 47.4 fL 35.1-43.9 [facility] Erythrocyte distribution width (RBC) [Ratio] 14.6 % 11.6-14.6 [facility] Immature granulocytes/100 WBC (Bld) 0.200 % 0.0-0.9 [facility] Comment on above: IG% - Immature Granu locytes (promyelocytes, myelocytes and metamyelocytes) > 1% indicates that a LEFT SHIFT is Present. MCH (RBC) [Entitic mass] 27.9 pg 27.0-32.0 [facility] Nucleated RBC/100 WBC (Bld) [Ratio] 0 % 0-5 [facility] MCHC Auto (RBC) [Mass/Vol]Or dered By: Dr. Verdugo on 06-14-2022 MCHC (RBC) [Mass/Vol] 31.9 g/dL 32-36 [place] No Panel InformationOrdered By: Dr. Verdugo on 06-14-2022 Estimated Creatinine Clearance Calc 37.45 ml/min [facility] Estimated GFR (MDRD) Amer 96 mL/min >60 [facility] Comment on above: GFR Calc Estimated GFR (MDRD) Non-Af Amer 80 mL/min >60 [facility] Comment on above: Non- GFR Calc Thyroid Stimulating Hormone (TSH) 1.82 uIU/mL 0.358-3.74 [facility] Platelets bldOrdered By: Dr. Verdugo on 06-14-2022 Platelets (Bld) [#/Vol] 226 10*3/uL 150-450 [facility] Serum or plasma albumin july urement (mass/volume)Ordered By: Dr. Verdugo on 06-14-2022 Albumin [Mass/Vol] 3.6 g/dL 3.2-5.0 [facility] Serum or plasma albumin/glob ulin mass ratioOrdered By: Dr. Verdugo on 06-14-2022 Albumin/Globulin [Mass ratio] 1.0 {ratio} 0.9-2.4 [facility] Serum or plasma calcium july urement (mass/volume)Ordered By: Dr. Verdugo on 06-14-2022 Calcium [Mass/Vol] 9.1 mg/dL 8.5-10.1 [facility] Serum or plasma cholesterol in HDL measurement (mass/volume)Ordered By: Dr. Verdugo on 06-14-2022 Cholesterol in HDL [Mass/Vol] 52 mg/dL >40 [facility] Comment on above: The drugs N-Acetylcy steine and Metamizole may falsely depress this assay. Reference Range HDL <40 mg/dL Low HDL Cholesterol HDL >or= 60 mg/dL High HDL Cholesterol Serum or plasma cholesterol in VLDL measurement (mass/volume)Ordered By: Dr. Verdugo on 06-14-2022 Cholesterol in VLDL [Mass/Vol] 42 mg/dL 5-40 [facility] Serum or plasma creatinine m easurement (mass/volume)Ordered By: Dr. Verdugo on 06-14-2022 Creatinine [Mass/Vol] 0.74 mg/dL 0.55-1.02 [place] Comment on above: The validity of the calculated GFR & GFRAA in patients over 70 years has not been determined. Clinical correlation is essential. Serum or plasma low density lipoprotein (LDL) cholesterol measurement (mass/volume)Ordered By: Dr. Verdugo on 06-14-2022 Cholesterol in LDL [Mass/Vol] 113 mg/dL 0-130 [facility] Serum or plasma urea nitroge n measurement (mass/volume)Ordered By: Dr. Verdugo on 06-14-2022 Urea nitrogen [Mass/Vol] 7 mg/dL 7-18 [facility] Thin prep Papanicolaou smear with manual screeningOrdered By: Dr. Verdugo on 06-14-2022 Thin prep Papanicolaou smear with manual screening 22 U/L 15-37 [facility] Thin prep Papanicolaou smear with manual screening 7 5-15 [facility] Whole blood hemoglobin A1c/t otal hemoglobin ratio (mass fraction)Ordered By: Dr. Verdugo on 06-14-2022 HbA1c (Bld) [Mass fraction] 5.7 % 3.8-5.6 [facility] Comment on above: Normal < 5.7 % Predi abetic 5.7 - 6.4 % Diabetic >or= 6.5 % Please note range changes. Basophil percentageOrdered B y: Dr. Contreras on 06-13-2022 Basophil percentage 0 SEEN /hpf 0-5 [facility] Bilirubin Test strip Ql (U)O rdered By: Dr. Contreras on 06-13-2022 Bilirubin Ql (U) Negative Negative [facility] INR in Blood by Coagulation assayOrdered By: Dr. Contreras on 06-13-2022 INR Coag (Bld) [Relative time] 1.1 {INR} [facility] Influenza virus A and B and SARS-CoV-2 (COVID-19) Ag panel - Upper respiratory specimOrdered By: Dr. Contreras on 06-13-2022 SARS-CoV-2 (COVID-19) RNA ADRY+probe Ql (Resp) [facility] Ketones Test strip Ql (U)Ord ered By: Dr. Contreras on 06-13-2022 Ketones Ql (U) Negative Negative [facility] Laboratory - Chemistry and C hemistry - challengeOrdered By: Dr. Verdugo on 06-13-2022 Magnesium [Mass/Vol] 2.0 mg/dL 1.6-2.6 [facility] Comment on above: Slight Hemolysis, Re sult may be falsely increased. Laboratory - CoagulationOrde red By: Dr. Contreras on 06-13-2022 aPTT Coag (Bld) [Time] 26.2 s 24.1-36.2 [facility] PT Coag (PPP) [Time] 13.4 s 11.7-14.9 [facility] Laboratory - Drug toxicology Ordered By: Dr. Contreras on 06-13-2022 Amphetamines Ql (U) Negative <1000 ng/mL [facility] Benzodiazepines Ql (U) Negative < 200 ng/mL [facility] Cannabinoids Screen Ql (U) Negative < 50 ng/mL [facility] Cocaine Ql (U) Negative < 300 ng/mL [facility] Opiates Ql (U) Negative < 300 ng/mL [facility] Mucus LM Ql (Urine sed)Order ed By: Dr. Contreras on 06-13-2022 Mucus Ql (Urine sed) 0 SEEN /hpf [place] Nitrite Test strip Ql (U)Ord ered By: Dr. Contreras on 06-13-2022 Nitrite Ql (U) Negative Negative [facility] No Panel InformationOrdered By: Dr. Contreras on 06-13-2022 MDMA (Ecstasy) Screen Negative < 500 ng/mL [facility] Urine Barbiturates Screen Negative < 200 ng/mL [facility] Urine Drug Screen Comment [facility] Comment on above: CONFIRMATORY TESTING FOR [...] Methadone Screen Negative < 300 ng/mL [facility] Protein Test strip Ql (U)Ord ered By: Dr. Contreras on 06-13-2022 Protein Ql (U) Negative Negative [facility] Squamous epithelial cells de tection in urine sediment by light microscopyOrdered By: Dr. Contreras on 06-13-2022 Epithelial cells.squamous LM Ql (Urine sed) 0-5 SEEN /hpf 5-10 [facility] Urine blood detectionOrdered By: Dr. Contreras on 06-13-2022 RBC Ql (U) Negative Negative [facility] RBC Ql (U) 0 SEEN /hpf 0-5 [facility] Urine clarityOrdered By: Dr. Contreras on 06-13-2022 Clarity (U) Clear Clear [facility] Urine color determinationOrd ered By: Dr. Contreras on 06-13-2022 Color (U) Yellow Yellow [facility] Urine glucose detectionOrder ed By: Dr. Contreras on 06-13-2022 Glucose Ql (U) Normal mg/dl Normal [facility] Urine leukocyte esterase det ection by dipstickOrdered By: Dr. Contreras on 06-13-2022 Leukocyte esterase Test strip Ql (U) Negative Negative [facility] Urine pHOrdered By: Dr. [place] gordillo on 06-13-2022 pH (U) 7.0 [pH] 5.0 - 8.0 [facility] Urine phencyclidine (PCP) de tectionOrdered By: Dr. Contreras on 06-13-2022 Phencyclidine Ql (U) Negative < 25 ng/mL [facility] Urine sediment bacteria coun t by microscopy (number/high power field)Ordered By: Dr. Contreras on 06-13-2022 Bacteria LM.HPF (Urine sed) [#/Area] 0 /[HPF] None Seen [facility] Urine specific gravity measu rementOrdered By: Dr. Contreras on 06-13-2022 Specific gravity (U) [Rel density] 1.005 1.002-1.030 [facility] Urobilinogen Auto test strip Ql (U)Ordered By: Dr. Contreras on 06-13-2022 Urobilinogen Ql (U) Normal mg/dl Normal [place] Basophil percentageOrdered B y: Dr. Hdz on 05-11-2022 Chloride [Moles/Vol] 99 mmol/L 98-107 [facility] Glucose [Mass/Vol] 118 mg/dL 74-106 [facility] Comment on above: Fasting Glucose resu lt from 100 to 125 mg/dL suggests IMPAIRED HOMEOSTASIS per A.D.A. criteria. Potassium [Moles/Vol] 3.5 mmol/L 3.5-5.1 [place] Sodium [Moles/Vol] 137 mmol/L 136-145 [facility] Laboratory - Chemistry and C hemistry - challengeOrdered By: Dr. Hdz on 05-11-2022 CO2 [Moles/Vol] 29.0 mmol/L 21.0-32.0 [facility] Urea nitrogen/Creatinine [Mass ratio] 17.4 mg/mg 10-20 [facility] No Panel InformationOrdered By: Dr. Hdz on 05-11-2022 Estimated GFR (MDRD) Amer 81 mL/min >60 [facility] Comment on above: GFR Calc Estimated GFR (MDRD) Non-Af Amer 67 mL/min >60 [facility] Comment on above: Non- GFR Calc Serum or plasma calcium july urement (mass/volume)Ordered By: Dr. Hdz on 05-11-2022 Calcium [Mass/Vol] 9.5 mg/dL 8.5-10.1 [facility] Serum or plasma creatinine m easurement (mass/volume)Ordered By: Dr. Hdz on 05-11-2022 Creatinine [Mass/Vol] 0.86 mg/dL 0.55-1.02 [place] Comment on above: The validity of the calculated GFR & GFRAA in patients over 70 years has not been determined. Clinical correlation is essential. Serum or plasma urea nitroge n measurement (mass/volume)Ordered By: Dr. Hdz on 05-11-2022 Urea nitrogen [Mass/Vol] 15 mg/dL 7-18 [facility] Thin prep Papanicolaou smear with manual screeningOrdered By: Dr. Hdz on 05-11-2022 Thin prep Papanicolaou smear with manual screening 9 5-15 [facility] Basophil percentageon 2021 Bilirubin [Mass/Vol] 0.40 mg/dL 0.20-1.00 [facility] Work Phone: Comment on above: For patients on eltr ombopag therapy, use of Dimension [place] TBIL is not recommended. Chloride [Moles/Vol] 98 mmol/L 98-107 [facility] Work Phone: Cholesterol [Mass/Vol] 214 mg/dL <200 [facility] Work Phone: Comment on above: <200 mg/dL Desirable 200-240 mg/dL Borderline >240 mg/dL High Risk Glucose [Mass/Vol] 87 mg/dL 74-106 [facility] Work Phone: Potassium [Moles/Vol] 3.7 mmol/L 3.5-5.1 [place] Work Phone: Protein [Mass/Vol] 7.6 g/dL 6.4-8.2 [facility] Work Phone: Sodium [Moles/Vol] 133 mmol/L 136-145 [facility] Work Phone: Triglyceride [Mass/Vol] 187 mg/dL <199 [facility] Work Phone: Comment on above: The drugs N-Acetylcy steine and Metamizole may falsely depress this assay.Serum Triglycerides Reference Interval Normal <150 mg/dL Borderline high 150 - 199 mg/dL High 200 - 499 mg/dL Very High > or = 500 mg/dL Laboratory - Chemistry and C hemistry - challengeon 12-17-2021 ALP [Catalytic activity/Vol] 92 U/L 45-117 [facility] Work Phone: ALT [Catalytic activity/Vol] 25 U/L 13-56 [facility] Work Phone: CO2 [Moles/Vol] 27.0 mmol/L 21.0-32.0 [facility] Work Phone: Globulin (S) [Mass/Vol] 3.9 g/dL 2.2-4.2 [facility] Work Phone: Urea nitrogen/Creatinine [Mass ratio] 10.9 mg/mg 10-20 [facility] Work Phone: No Panel Informationon 12-17 Estimated GFR (MDRD) Amer 85 mL/min >60 [facility] Work Phone: Comment on above: GFR Calc Estimated GFR (MDRD) Non-Af Amer 70 mL/min >60 [facility] Work Phone: Comment on above: Non- GFR Calc Thyroid Stimulating Hormone (TSH) 1.03 uIU/mL 0.358-3.74 [facility] Work Phone: Serum or plasma albumin july urement (mass/volume)on 12-17-2021 Albumin [Mass/Vol] 3.7 g/dL 3.2-5.0 [facility] Work Phone: Serum or plasma albumin/glob ulin mass ratioon 12-17-2021 Albumin/Globulin [Mass ratio] 0.9 {ratio} 0.9-2.4 [facility] Work Phone: Serum or plasma calcium july urement (mass/volume)on 12-17-2021 Calcium [Mass/Vol] 9.2 mg/dL 8.5-10.1 [facility] Work Phone: Serum or plasma cholesterol in HDL measurement (mass/volume)on 12-17-2021 Cholesterol in HDL [Mass/Vol] 56 mg/dL >40 [facility] Work Phone: Comment on above: The drugs N-Acetylcy steine and Metamizole may falsely depress this assay. Reference Range HDL <40 mg/dL Low HDL Cholesterol HDL >or= 60 mg/dL High HDL Cholesterol Serum or plasma cholesterol in VLDL measurement (mass/volume)on 12-17-2021 Cholesterol in VLDL [Mass/Vol] 37 mg/dL 5-40 [facility] Work Phone: Serum or plasma creatinine m easurement (mass/volume)on 12-17-2021 Creatinine [Mass/Vol] 0.83 mg/dL 0.55-1.02 [place] Work Phone: Comment on above: The validity of the calculated GFR & GFRAA in patients over 70 years has not been determined. Clinical correlation is essential. Serum or plasma low density lipoprotein (LDL) cholesterol measurement (mass/volume)on 12-17-2021 Cholesterol in LDL [Mass/Vol] 121 mg/dL 0-130 [facility] Work Phone: Serum or plasma urea nitroge n measurement (mass/volume)on 12-17-2021 Urea nitrogen [Mass/Vol] 9 mg/dL 7-18 [facility] Work Phone: Thin prep Papanicolaou smear with manual screeningon 12-17-2021 Thin prep Papanicolaou smear with manual screening 18 U/L 15-37 [facility] Work Phone: Thin prep Papanicolaou smear with manual screening 8 5-15 [facility] Work Phone: Absolute lymphocyte counton 11-17-2021 Lymphocytes Auto (Unsp spec) [#/Vol] 1.32 10*3/uL 0.83-4.51 [facility] Work Phone: Basophil percentageon 2021 Basophils/100 WBC (Bld) 1.4 % 0-1 [facility] Work Phone: Bilirubin [Mass/Vol] 0.40 mg/dL 0.20-1.00 [facility] Work Phone: Comment on above: For patients on eltr ombopag therapy, use of Dimension [place] TBIL is not recommended. Chloride [Moles/Vol] 100 mmol/L 98-107 [facility] Work Phone: Eosinophils/100 WBC (Bld) 2.8 % 0-5 [facility] Work Phone: Glucose [Mass/Vol] 154 mg/dL 74-106 [facility] Work Phone: Comment on above: Fasting Glucose resu lt greater than or equal to 126 mg/dL suggests DIABETES MELLITUS per A.D.A. criteria. Neutrophils (Bld) [#/Vol] 3.4 10*3/uL 2.0-7.7 [facility] Work Phone: Neutrophils/100 WBC (Bld) 59.7 % 47-70 [facility] Work Phone: [phone] Potassium [Moles/Vol] 3.1 mmol/L 3.5-5.1 [place] Work Phone: Protein [Mass/Vol] 7.6 g/dL 6.4-8.2 [facility] Work Phone: Sodium [Moles/Vol] 134 mmol/L 136-145 [facility] Work Phone: WBC (Bld) [#/Vol] 5.7 10*3/uL 4.4-11.0 [facility] Work Phone: Blood erythrocytes count (nu mber/volume)on 11-17-2021 RBC (Bld) [#/Vol] 4.61 10*6/uL 4.2-5.4 [facility] Work Phone: Blood hemoglobin measurement (mass/volume)on 11-17-2021 Hemoglobin (Bld) [Mass/Vol] 13.3 g/dL 12.0-15.0 [facility] Work Phone: Blood lymphocytes/100 leukoc yteson 11-17-2021 Lymphocytes/100 WBC (Bld) 23.2 % 19-41 [facility] Work Phone: Blood monocytes/100 leukocyt eson 11-17-2021 Monocytes/100 WBC (Bld) 12.5 % 0-10 [facility] Work Phone: Blood platelet mean volumeon 11-17-2021 Platelet mean volume (Bld) [Entitic vol] 10.7 fL 6.2-12.0 [facility] Work Phone: Determination of erythrocyte mean corpuscular volume (MCV)on 11-17-2021 MCV (RBC) [Entitic vol] 87.9 fL 81-99 [facility] Work Phone: Hematocrit Auto (Bld) [Volum e fraction]on 11-17-2021 Hematocrit (Bld) [Volume fraction] 40.5 % 37-47 [facility] Work Phone: Laboratory - Chemistry and C hemistry - challengeon 11-17-2021 ALP [Catalytic activity/Vol] 89 U/L 45-117 [facility] Work Phone: ALT [Catalytic activity/Vol] 28 U/L 13-56 [facility] Work Phone: CO2 [Moles/Vol] 26.0 mmol/L 21.0-32.0 [facility] Work Phone: Globulin (S) [Mass/Vol] 3.9 g/dL 2.2-4.2 [facility] Work Phone: Magnesium [Mass/Vol] 1.9 mg/dL 1.6-2.6 [facility] Work Phone: Urea nitrogen/Creatinine [Mass ratio] 13.1 mg/mg 10-20 [facility] Work Phone: Laboratory - Hematology and Cell countson 11-17-2021 Erythrocyte distribution width (RBC) [Entitic vol] 48.0 fL 35.1-43.9 [facility] Work Phone: Erythrocyte distribution width (RBC) [Ratio] 14.9 % 11.6-14.6 [facility] Work Phone: Immature granulocytes/100 WBC (Bld) 0.400 % 0.0-0.9 [facility] Work Phone: Comment on above: IG% - Immature Granu locytes (promyelocytes, myelocytes and metamyelocytes) > 1% indicates that a LEFT SHIFT is Present. MCH (RBC) [Entitic mass] 28.9 pg 27.0-32.0 [facility] Work Phone: Nucleated RBC/100 WBC (Bld) [Ratio] 0 % 0-5 [facility] Work Phone: MCHC Auto (RBC) [Mass/Vol]on 11-17-2021 MCHC (RBC) [Mass/Vol] 32.8 g/dL 32-36 [place] Work Phone: No Panel Informationon 11-17 Estimated GFR (MDRD) Amer 63 mL/min >60 [facility] Work Phone: Comment on above: GFR Calc Estimated GFR (MDRD) Non-Af Amer 52 mL/min >60 [facility] Work Phone: Comment on above: Non- GFR Calc Vitamin D 25-Hydroxy 42.5 ng/mL [facility] Work Phone: Comment on above: Vitamin D 25(OH) Sta tus Range Deficiency <20 ng/mL (50nmol/L) Insufficiency 20 - 30 ng/mL (50 - 75 nmol/L) Sufficiency 30 - 100 ng/mL (75 - 250 nmol/L) Toxicity >100 ng/mL (>250 nmol/L) Platelets bldon 11-17-2021 Platelets (Bld) [#/Vol] 264 10*3/uL 150-450 [facility] Work Phone: Serum or plasma albumin july urement (mass/volume)on 11-17-2021 Albumin [Mass/Vol] 3.7 g/dL 3.2-5.0 [facility] Work Phone: Serum or plasma albumin/glob ulin mass ratioon 11-17-2021 Albumin/Globulin [Mass ratio] 0.9 {ratio} 0.9-2.4 [facility] Work Phone: Serum or plasma calcium july urement (mass/volume)on 11-17-2021 Calcium [Mass/Vol] 9.2 mg/dL 8.5-10.1 [facility] Work Phone: Serum or plasma creatinine m easurement (mass/volume)on 11-17-2021 Creatinine [Mass/Vol] 1.07 mg/dL 0.55-1.02 [place] Work Phone: Comment on above: The validity of the calculated GFR & GFRAA in patients over 70 years has not been determined. Clinical correlation is essential. Serum or plasma urea nitroge n measurement (mass/volume)on 11-17-2021 Urea nitrogen [Mass/Vol] 14 mg/dL 7-18 [facility] Work Phone: Thin prep Papanicolaou smear with manual screeningon 11-17-2021 Thin prep Papanicolaou smear with manual screening 28 U/L 15-37 [facility] Work Phone: Thin prep Papanicolaou smear with manual screening 8 5-15 [facility] Work Phone: Basic Metabolic Panelon 05-0 Calcium [Mass/Vol] 8.5 mg/dL Normal 8.4-10.4 [facility] Comment on above: Performed By: #### P T CMP3 TROPABI Echavarria MDIFF #### [facility] [address] [place] [address] Glucose [Mass/Vol] 74 mg/dL Normal 70-100 [facility] Comment on above: Performed By: #### P T CMP3JABARI HEMDF, MDIFF #### [facility] [address] [place] [address] Anion gap [Moles/Vol] 7 Normal [facility] Comment on above: Performed By: #### P T CMP3 TROPABI Echavarria MDIFF #### [facility] [address] [place], [place] CO2 [Moles/Vol] 22 mmol/L Normal 22-30 [facility] Comment on above: Performed By: #### P T, CMP3, TROPABI Echavarria MDIFF #### [place] [address] [place], [place] Creatinine [Mass/Vol] 0.57 mg/dL Normal 0.52-1.25 [facility] Comment on above: Performed By: #### P T, CMP3, TROPABI Echavarria, IFF #### [place] [address] [place], [place] GFR/1.73 sq M predicted among blacks MDRD (S/P/Bld) [Vol rate/Area] mL/min/{1.73_m2} Normal >60 [facility] Comment on above: Performed By: #### P T, CMP3, TROPABI Echavarria MDIFF #### [place] [address] [place], [place] GFR/1.73 sq M predicted among non-blacks MDRD (S/P/Bld) [Vol rate/Area] mL/min/{1.73_m2} Normal >60 [facility] Comment on above: Result Comment: Sour ce- MDRD equation with creatinine calibration to IDMS(NKDEP) eGFR not recommended for drug dose adjustment Performed By: #### P T, CMP3, TROPABI Echavarria MDIFF #### [place] [address] [place], [place] Urea nitrogen [Mass/Vol] 11 mg/dL Normal 7-20 [facility] Comment on above: Performed By: #### P T, CMP3, TROPGagan HEMYESY, MDIFF #### [place] [address] [place], [place] Chloride [Moles/Vol] 111 mmol/L High 98-107 [facility] Comment on above: Performed By: #### P T, CMP3, TROPN, HEMYESY, MDIFF #### [place] [address] [place], [place] Potassium [Moles/Vol] 3.4 mmol/L Low 3.5-5.1 [facility] Comment on above: Performed By: #### P T, CMP3, TROPN, HEMDF, IFF #### [address] [place] [address] [place], [place] Sodium [Moles/Vol] 140 mmol/L Normal 135-145 [facility] Comment on above: Performed By: #### P T, CMP3, TROPN, HEMDF, MDIFF #### [place] [address] [place], [place] Hemogram w/ Autodiffon 08-16 Abs Baso Cnt 0.1 10*3/uL Normal 0.0-0.2 [facility] Comment on above: Performed By: #### P T, CMP3, TROPN, HEMDF, MDIFF #### [address] Abs Neutrophile Cnt 6.1 10*3/uL Normal 1.8-7.0 [facility] Comment on above: Performed By: #### P T, CMP3, TROPN, HEMDF, MDIFF #### [address] Basophils/100 WBC (Bld) 0.6 % Normal 0.0-2.0 [facility] Comment on above: Performed By: #### P T, CMP3, TROPN, HEMDF, MDIFF #### [place] [address] [place], [place] Eosinophils (Bld) [#/Vol] 0.3 10*3/uL Normal 0.0-0.5 [facility] Comment on above: Performed By: #### P T, CMP3, TROPN, HEMDF, MDIFF #### [address] Eosinophils/100 WBC (Bld) 3.7 % Normal 1.0-6.0 [facility] Comment on above: Performed By: #### P T, CMP3, TROPN, HEMDF, MDIFF #### [address] Erythrocyte distribution width (RBC) [Ratio] 16.0 % High 11.5-14.5 [facility] Comment on above: Performed By: #### P T, CMP3, TROPN, HEMYESY, IFF #### [place] [address] [place], [place] Granulocytes/100 WBC (Bld) 66.4 % Normal 40.0-80.0 [facility] Comment on above: Performed By: #### P T, CMP3, TROPN, HEMDF, MDIFF #### [place] [address] [place], [place] Hematocrit (Bld) [Volume fraction] 25.6 % Low 35.0-47.0 [facility] Comment on above: Performed By: #### P T, CMP3, TROPN, HEMDF, MDIFF #### [address] [place] [address] [place], [place] Hemoglobin (Bld) [Mass/Vol] 8.6 g/dL Low 11.7-16.0 [facility] Comment on above: Performed By: #### P T, CMP3, TROPN, HEMYESY, MDIFF #### [place] [address] [place], [place] Lymphocytes (Bld) [#/Vol] 1.6 10*3/uL Normal 1.0-4.3 [facility] Comment on above: Performed By: #### P T, CMP3, TROPN, HEMDF, MDIFF #### [place] [address] [place], [place] Lymphocytes/100 WBC (Bld) 17.5 % Low 20.0-40.0 [facility] Comment on above: Performed By: #### P T, CMP3, TROPN, HEMDF, MDIFF #### [address] MCH (RBC) [Entitic mass] 29.1 pg Normal 26.0-34.0 [facility] Comment on above: Performed By: #### P T, CMP3, TROPN, HEMDF, MDIFF #### [place] [address] [place], [place] MCHC (RBC) [Mass/Vol] 33.8 % Normal 32.0-36.0 [facility] Comment on above: Performed By: #### P T, CMP3, TROPN, HEMDF, MDIFF #### [address] MCV (RBC) [Entitic vol] 86.3 fL Normal 79.0-98.0 [facility] Comment on above: Performed By: #### P T, CMP3, TROPN, HEMDF, MDIFF #### [place] [address] [place], [place] Monocytes (Bld) [#/Vol] 1.1 10*3/uL High 0.0-0.8 [facility] Comment on above: Performed By: #### P T, CMP3, TROPN, HEMDF, MDIFF #### [address] Monocytes/100 WBC (Bld) 11.8 % High 2.0-10.0 [facility] Comment on above: Performed By: #### P T, CMP3, TROPN, HEMDF, IFF #### [place] [address] [place], [place] Platelet mean volume (Bld) [Entitic vol] 7.2 fL Low 7.4-10.4 [facility] Comment on above: Performed By: #### P T, CMP3, TROPN, HEMDF, MDIFF #### [place] [address] [place], [place] Platelets (Bld) [#/Vol] 469 10*3/uL High 140-440 [facility] Comment on above: Performed By: #### P T, CMP3, TROPN, HEMDF, MDIFF #### [address] RBC (Bld) [#/Vol] 2.96 10*6/uL Low 3.80-5.20 [facility] Comment on above: Performed By: #### P T, CMP3, TROPN, HEMDF, IFF #### [place] [address] [place], [place] WBC (Bld) [#/Vol] 9.2 10*3/uL Normal 3.6-10.7 [facility] Comment on above: Performed By: #### P T, CMP3, TROPGagan HEMYESY, IFF #### [place] [address] [place], [place] Magnesiumon 08-16-2018 Magnesium [Mass/Vol] 2.1 mg/dL Normal 1.6-2.3 [facility] Comment on above: Performed By: #### P T, CMP3, TROPABI Echavarria MDIFF #### [place] [address] [place], [place] Phosphoruson 08-16-2018 Phosphate [Mass/Vol] 3.6 mg/dL Normal 2.5-4.5 [facility] Comment on above: Performed By: #### P T, CMP3, TROPABI Echavarria MDIFF #### [place] [address] [place], [place] Basic Metabolic Panelon 04-3 Calcium [Mass/Vol] 8.5 mg/dL Normal 8.4-10.4 [facility] Comment on above: Performed By: #### P T, CMP3, TROPGagan HEMYESY, IFF #### [place] [address] [place], [place] Anion gap [Moles/Vol] 5 Normal [facility] Comment on above: Performed By: #### P T, CMP3, TROPGagan HEMSULLY HAYWARD #### [place] [address] [place], [place] CO2 [Moles/Vol] 22 mmol/L Normal 22-30 [facility] Comment on above: Performed By: #### P T, CMP3, TROPN HEMYESY, MDIFF #### [place] [address] [place], [place] Creatinine [Mass/Vol] 0.62 mg/dL Normal 0.52-1.25 [facility] Comment on above: Performed By: #### P T CMP3 TROPABI Echavarria MDIFF #### [facility] [address] [place] [address] GFR/1.73 sq M predicted among blacks MDRD (S/P/Bld) [Vol rate/Area] mL/min/{1.73_m2} Normal >60 [facility] Comment on above: Performed By: #### P T, CMP3, TROPABI Echavarria MDIFF #### [facility] [address] [place] [address] GFR/1.73 sq M predicted among non-blacks MDRD (S/P/Bld) [Vol rate/Area] mL/min/{1.73_m2} Normal >60 [facility] Comment on above: Result Comment: Sour ce- MDRD equation with creatinine calibration to IDMS(NKDEP) eGFR not recommended for drug dose adjustment Performed By: #### P T CMP3JABARI HEMDF, MDIFF #### [place] [address] [place], [place] Glucose [Mass/Vol] 98 mg/dL Normal 70-100 [facility] Comment on above: Performed By: #### P T CMP3JABARI HEMDF, MDIFF #### [place] [address] [place] [address] Urea nitrogen [Mass/Vol] 30 mg/dL High 7-20 [facility] Comment on above: Performed By: #### P T, CMP3JABARI HEMDF, MDIFF #### [facility] [address] [place] [address] Chloride [Moles/Vol] 111 mmol/L High 98-107 [facility] Comment on above: Performed By: #### P T CMP3JABARI HEMDF, MDIFF #### [facility] [address] [place] [address] Potassium [Moles/Vol] 3.8 mmol/L Normal 3.5-5.1 [facility] Comment on above: Performed By: #### P T, CMP3 TROPABI Echavarria MDIFF #### [place] [address] [place], [place] Sodium [Moles/Vol] 138 mmol/L Normal 135-145 [facility] Comment on above: Performed By: #### P T, CMP3, TROPN, HEMDF, MDIFF #### [place] [address] [place], [place] Hemoglobin AND Hematocriton 08-15-2018 Hematocrit (Bld) [Volume fraction] 25.0 % Low 35.0-47.0 [facility] Comment on above: Performed By: #### P T, CMP3, TROPN, HEMYESY, MDIFF #### [place] [address] [place], [place] Hemoglobin (Bld) [Mass/Vol] 8.4 g/dL Low 11.7-16.0 [facility] Comment on above: Performed By: #### P T, CMP3, TROPN HEMYESY, MDIFF #### [place] [address] [place], [place] Hemogram w/ Autodiffon 08-15 Erythrocyte distribution width (RBC) [Ratio] 15.3 % High 11.5-14.5 [facility] Comment on above: Performed By: #### P T, CMP3, TROPN, HEMDF, MDIFF #### [place] [address] [place], [place] Hematocrit (Bld) [Volume fraction] 24.2 % Low 35.0-47.0 [facility] Comment on above: Performed By: #### P T, CMP3, TROPN, HEMDF, MDIFF #### [place] [address] [place], [place] Hemoglobin (Bld) [Mass/Vol] 8.3 g/dL Low 11.7-16.0 [facility] Comment on above: Performed By: #### P T, CMP3, TROPN, HEMDF, MDIFF #### [place] [address] [place], [place] MCH (RBC) [Entitic mass] 29.2 pg Normal 26.0-34.0 [facility] Comment on above: Performed By: #### P T, CMP3, TROPN, HEMDF, MDIFF #### [place] [address] [place] MCHC (RBC) [Mass/Vol] 34.3 % Normal 32.0-36.0 [facility] Comment on above: Performed By: #### P T, CMP3, TROPN, HEMDF, MDIFF #### [place] [address] [place], [place] MCV (RBC) [Entitic vol] 85.0 fL Normal 79.0-98.0 [facility] Comment on above: Performed By: #### P T, CMP3, TROPN, HEMDF, MDIFF #### [place] [address] [place], [place] Platelet mean volume (Bld) [Entitic vol] 7.0 fL Low 7.4-10.4 [facility] Comment on above: Performed By: #### P T, CMP3, TROPN, HEMDF, MDIFF #### [place] [address] [place], [place] Platelets (Bld) [#/Vol] 478 10*3/uL High 140-440 [facility] Comment on above: Performed By: #### P T, CMP3, TROPN, HEMDF, MDIFF #### [place] [address] [place], [place] RBC (Bld) [#/Vol] 2.85 10*6/uL Low 3.80-5.20 [facility] Comment on above: Performed By: #### P T, CMP3, TROPN, HEMDF, MDIFF #### [place] [address] [place], [place] WBC (Bld) [#/Vol] 15.8 10*3/uL High 3.6-10.7 [facility] Comment on above: Performed By: #### P T, CMP3, TROPN, HEMDF, MDIFF #### [address] [place] [address] [place] [address] Magnesiumon 08-15-2018 Magnesium [Mass/Vol] 2.1 mg/dL Normal 1.6-2.3 [facility] Comment on above: Performed By: #### P T, CMP3, TROPABI Echavarria, IFF #### [place] [address] [place], [place] Manual Diffon 08-15-2018 Abs Lymph Cnt 2.2 10*3/uL Normal 1.1-4.5 [facility] Comment on above: Performed By: #### P T, CMP3, TROPN, HEMYESY, MDIFF #### [place] [address] [place], [place] Abs Monocyte Cnt 0.3 10*3/uL Normal 0.2-1.1 [facility] Comment on above: Performed By: #### P T, CMP3, TROPN, HEMYESY, MDIFF #### [place] [address] [place], [place] Abs Neutrophile Cnt 13.3 10*3/uL High 2.2-8.2 [facility] Comment on above: Performed By: #### P T, CMP3, TROPN, HEMYESY, MDIFF #### [place] [address] [place], [place] Anisocytosis Ql (Bld) Slight Normal [facility] Comment on above: Performed By: #### P T, CMP3, TROPN, HEMYESY, MDIFF #### [place] [address] [place], [place] Bands 5 % High 0-3 [facility] Comment on above: Performed By: #### P T, CMP3, TROPN, HEMYESY, MDIFF #### [place] [address] [place], [place] Hypochromia Slight Normal [facility] Comment on above: Performed By: #### P T, CMP3, TROPN, HEMDF, MDIFF #### [place] [address] [place], [place] Lymphocytes 14 % Low 20-40 [facility] Comment on above: Performed By: #### P T, CMP3, TROPN, HEMYESY, MDIFF #### [facility] [address] [place], [place] Monocytes 2 % Normal 2-10 [facility] Comment on above: Performed By: #### P T, CMP3, TROPN HEMYESY, IFF #### [facility] [address] [place], [place] Poikilocytosis Slight Normal [facility] Comment on above: Performed By: #### P T, CMP3, TROPN HEMYESY, IFF #### [facility] [address] [place] Polychromasia Slight Normal [facility] Comment on above: Performed By: #### P T, CMP3, TROPN HEMYESY, IFF #### [place] [address] [place], [place] Seg Neutrophils 79 % Normal 40-80 [facility] Comment on above: Performed By: #### P T, CMP3, TROPN, HEMYESY, IFF #### [facility] [address] [place] Abs Baso Cnt 0.0 10*3/uL Normal 0.0-0.2 [facility] Comment on above: Performed By: #### P T, CMP3, TROPN, HEMDF, MDIFF #### [place] [address] [place], [place] Abs Eosin Cnt 0.0 10*3/uL Normal 0.0-0.5 [facility] Comment on above: Performed By: #### P T, CMP3, TROPN, HEMDF, MDIFF #### [facility] [address] [place] Basophils 0 % Normal 0-2 [facility] Comment on above: Performed By: #### P T, CMP3, TROPN HEMYESY, SULLY #### [place] [address] [place], [place] Cells counted 100 Normal [facility] Comment on above: Performed By: #### P T, CMP3, TROPN HEMMD YESYIFF #### [address] [address] [place] [address] Eosinophils 0 % Low 1-6 [facility] Comment on above: Performed By: #### IGNACIA Armstrong TROPN, HEMDF, MDIFF #### [address] [address] Phosphoruson 08-15-2018 Phosphate [Mass/Vol] 3.4 mg/dL Normal 2.5-4.5 [facility] Comment on above: Performed By: #### IGNACIA Armstrong TROPN, HEMDF, MDIFF #### [address] [address] Surgical Pathologyon 019 Surgical Pathology [id number] [facility] DEPARTMENT OF [facility] PATHOLOGY AND LABORATORY MEDICINE [address] [place] [address] [id number] FINAL SURGICAL PATHOLOGY REPORT ___ NAME: XAVIER RAHMAN : 1940 78 Y F BILLING NO.: [id number] LOCATION: [address] [place], [place] [address] B PROCEDURE 08/15/2018 DATE: SURGEON: ZACK PEREZ [...] identifying Helicobacter pylori: Recommendations from the [employer]. Am J Surge Pathos. [...] characteristics determined by the clinical laboratories of [facility]. They have not been cleared by [...] negativity on decalcified specimens. Professional Performing Location: [address] [address]. DEPARTMENT OF PATHOLOGY AND LABORATORY MEDICINE [place], [place] [address] Normal [facility] CR Chest Portableon 08-15-19 CR Chest Portable Patient Name: XAVIER RAHMAN Diagnostic Radiology Exam Date/Time 08/14/2018 13:50:44 EDT Exam CR Chest Portable Ordering Physician LOPEZ LEI LOURDES Accession Number [id number] CPT4 Codes 68636 () Reason For Exam recent 5-11 broken [...] Transcribed Date and Time: 08/14/2018 1:50 Normal [facility] Comp Metabolic Panelon 08-14 ALT [Catalytic activity/Vol] 27 U/L Normal 13-69 [facility] Comment on above: Result Comment: Slig htly hemolysed, interpret with caution. Performed By: #### P T, CMP3, TROPNABI MDIFF #### [facility] [address] [place] [address] ALP [Catalytic activity/Vol] 69 U/L Normal 38-126 [facility] Comment on above: Result Comment: Slig htly hemolysed, interpret with caution. Performed By: #### P T, CMP3, TROPNABI MDIFF #### [facility] [address] [place] [address] Anion gap [Moles/Vol] 10 Normal [facility] Comment on above: Performed By: #### P T, CMP3, TROPN HEMMD YESYIFF #### [address] [place], [place] AST [Catalytic activity/Vol] 37 U/L Normal 15-46 [facility] Comment on above: Result Comment: Slig htly hemolysed, interpret with caution. Performed By: #### P T, CMP3, TROPN, HEMDF, MDIFF #### [address] [place], [place] Bilirubin [Mass/Vol] 0.5 mg/dL Normal 0.2-1.3 [facility] Comment on above: Performed By: #### P T, CMP3, TROPN, HEMDF, MDIFF #### [address] [place], [place] Calcium [Mass/Vol] 8.9 mg/dL Normal 8.4-10.4 [facility] Comment on above: Performed By: #### P T, CMP3, TROPN, HEMDF, IFF #### [address] [place], [place] CO2 [Moles/Vol] 22 mmol/L Normal 22-30 [facility] Comment on above: Performed By: #### P T, CMP3, TROPN, HEMDF, IFF #### [address] [place], [place] Creatinine [Mass/Vol] 0.75 mg/dL Normal 0.52-1.25 [facility] Comment on above: Performed By: #### P T, CMP3, TROPN, HEMDF, MDIFF #### [address] [place], [place] GFR/1.73 sq M predicted among blacks MDRD (S/P/Bld) [Vol rate/Area] mL/min/{1.73_m2} Normal >60 [facility] Comment on above: Performed By: #### P T, CMP3, TROPN, HEMDF, MDIFF #### [address] [place], [place] GFR/1.73 sq M predicted among non-blacks MDRD (S/P/Bld) [Vol rate/Area] mL/min/{1.73_m2} Normal >60 [facility] Comment on above: Result Comment: Sour ce- MDRD equation with creatinine calibration to IDMS(NKDEP) eGFR not recommended for drug dose adjustment Performed By: #### P T, CMP3, TROPN, HEMDF, MDIFF #### [address] [place], [place] Glucose [Mass/Vol] 129 mg/dL High 70-100 [facility] Comment on above: Performed By: #### P T, CMP3, TROPN, HEMDF, MDIFF #### [address] [place], [place] Protein [Mass/Vol] 6.2 g/dL Low 6.3-8.2 [facility] Comment on above: Performed By: #### P T, CMP3, TROPN, HEMDF, MDIFF #### [address] [place], [place] Urea nitrogen [Mass/Vol] 40 mg/dL High 7-20 [facility] Comment on above: Performed By: #### P T, CMP3, TROPN, HEMDF, MDIFF #### [address] [place], [place] Albumin [Mass/Vol] 3.3 g/dL Low 3.5-5.0 [facility] Comment on above: Performed By: #### P T, CMP3, TROPN, HEMDF, MDIFF #### [address] [place], [place] Chloride [Moles/Vol] 106 mmol/L Normal 98-107 [facility] Comment on above: Performed By: #### P T, CMP3, TROPN, HEMDF, MDIFF #### [address] [place], [place] Potassium [Moles/Vol] 4.4 mmol/L Normal 3.5-5.1 [facility] Comment on above: Result Comment: Slig htly hemolysed, interpret with caution. Performed By: #### P T, CMP3, TROPN, HEMDF, MDIFF #### [facility] [address] [place], [place] Sodium [Moles/Vol] 138 mmol/L Normal 135-145 [facility] Comment on above: Performed By: #### P T, CMP3, TROPN, HEMDF, IFF #### [address] [place], [place] Fecal Occult,Stool Single Sp econ 08-14-2018 Fecal Occult,Stool Single Spec Positive Normal Negative [facility] Comment on above: Performed By: #### P T, CMP3, TROPN, HEMYESY, IFF #### [address] [place], [place] Hemogram w/ Autodiffon 08-14 Abs Baso Cnt 0.1 10*3/uL Normal 0.0-0.2 [facility] Comment on above: Performed By: #### P T, CMP3, TROPN, HEMYESY, IFF #### [address] [place], [place] Abs Neutrophile Cnt 11.6 10*3/uL High 1.8-7.0 [facility] Comment on above: Performed By: #### P T, CMP3, TROPN, HEMDF, IFF #### [address] [place], [place] Basophils/100 WBC (Bld) 0.7 % Normal 0.0-2.0 [facility] Comment on above: Performed By: #### P T, CMP3, TROPN, HEMDF, IFF #### [address] [place], [place] Eosinophils (Bld) [#/Vol] 0.0 10*3/uL Normal 0.0-0.5 [facility] Comment on above: Performed By: #### P T, CMP3, TROPN, HEMDF, MDIFF #### [address] [address] [place], [place] Eosinophils/100 WBC (Bld) 0.2 % Low 1.0-6.0 [facility] Comment on above: Performed By: #### P T, CMP3, TROPN, HEMDF, MDIFF #### [address] [place], [place] Erythrocyte distribution width (RBC) [Ratio] 16.7 % High 11.5-14.5 [facility] Comment on above: Performed By: #### P T, CMP3, TROPN, HEMDF, MDIFF #### [address] [place], [place] Granulocytes/100 WBC (Bld) 81.6 % High 40.0-80.0 [facility] Comment on above: Performed By: #### P T, CMP3, TROPN, HEMDF, MDIFF #### [address] [place], [place] Hematocrit (Bld) [Volume fraction] 20.1 % Low 35.0-47.0 [facility] Comment on above: Performed By: #### P T, CMP3, TROPN, HEMDF, MDIFF #### [address] [place], [place] Hemoglobin (Bld) [Mass/Vol] 6.5 g/dL Critically low 11.7-16.0 [facility] Comment on above: Result Comment: REPE ATED Performed By: #### P T, CMP3, TROPN, HEMDF, MDIFF #### [address] [place], [place] Lymphocytes (Bld) [#/Vol] 1.6 10*3/uL Normal 1.0-4.3 [facility] Comment on above: Performed By: #### P T, CMP3, TROPN, HEMDF, MDIFF #### [address] [place], [place] Lymphocytes/100 WBC (Bld) 11.0 % Low 20.0-40.0 [facility] Comment on above: Performed By: #### P T, CMP3, TROPN, HEMDF, MDIFF #### [address] [place], [place] MCH (RBC) [Entitic mass] 27.2 pg Normal 26.0-34.0 [facility] Comment on above: Performed By: #### P T, CMP3, TROPN, HEMDF, MDIFF #### [address] [place], [place] MCHC (RBC) [Mass/Vol] 32.2 % Normal 32.0-36.0 [facility] Comment on above: Performed By: #### P T, CMP3, TROPN, HEMDF, MDIFF #### [address] [address] [place], [place] MCV (RBC) [Entitic vol] 84.6 fL Normal 79.0-98.0 [facility] Comment on above: Performed By: #### P T, CMP3, TROPN, HEMDF, MDIFF #### [address] Monocytes (Bld) [#/Vol] 0.9 10*3/uL High 0.0-0.8 [facility] Comment on above: Performed By: #### P T, CMP3, TROPN, HEMDF, MDIFF #### [address] [place], [place] Monocytes/100 WBC (Bld) 6.5 % Normal 2.0-10.0 [facility] Comment on above: Performed By: #### P T, CMP3, TROPN, HEMDF, MDIFF #### [address] Platelet mean volume (Bld) [Entitic vol] 7.1 fL Low 7.4-10.4 [facility] Comment on above: Performed By: #### P T, CMP3, TROPN, HEMDF, MDIFF #### [address] Platelets (Bld) [#/Vol] 654 10*3/uL High 140-440 [facility] Comment on above: Performed By: #### P T, CMP3, TROPN, HEMDF, MDIFF #### [address] [address] [place], [place] RBC (Bld) [#/Vol] 2.38 10*6/uL Low 3.80-5.20 [facility] Comment on above: Performed By: #### P IGNACIA Carreno TROPN, HEMDF, MDIFF #### [address] [place] [address] WBC (Bld) [#/Vol] 14.2 10*3/uL High 3.6-10.7 [facility] Comment on above: Performed By: #### P TJORDI3JABARI HEMDF, MDIFF #### [address] [place] [address] Leukodepleted Red Cellson Leukodepleted Red Cells Leukodepleted Re d Cells: [id number] transfused 08/14/18 19:04 JMV Unit Blood Type: O Unit Blood Rh: POS Blood Product Code: AS3 Unit Number: [id number] Unit Status: transfused Barcoded Unit Number: =[id number] Barcoded Product Code: = Barcoded ABO/Rh: =%5100 Unit Expiration: Unit Volume Transfused: 300 Unit Transfusion Start Date/Time: [facility] Comment on above: Performed By: #### P IGNACIA Carreno TROPN, HEMDF, MDIFF #### [address] [place], [place] Leukodepleted Red Cells Leukodepleted Re d Cells: [id number] transfused 08/14/18 15:17 JMV Unit Blood Type: O Unit Blood Rh: POS Blood Product Code: LP Unit Number: [id number] Unit Status: transfused Barcoded Unit Number: =[id number] Barcoded Product Code: = Barcoded ABO/Rh: =%5100 Unit Expiration: Unit Volume Transfused: 300 Unit Transfusion Start Date/Time: [facility] Comment on above: Performed By: #### P TJORDI3, ABI BARBOZA MDIFF #### [address] [place] [address] Prothrombin Timeon 9 INR Coag (PPP) [Relative time] 1.1 Normal 0.9-1.1 [facility] Comment on above: Result Comment: Oliver [...] Myocardial Infarction Performed By: #### P T, CMP3 TROPABI Echavarria MDIFF #### [address] [place], [place] PT Coag (PPP) [Time] 11.4 s Normal 9.0-12.0 [facility] Comment on above: Result Comment: . Performed By: #### P T, CMP3 TROPABI Echavarria MDIFF #### [address] [place], [place] TS GELon 08-14-2018 TS GEL ABO Group: O Rh, Gel: POS Antibody Screen Gel: NEG Normal [facility] Comment on above: Performed By: #### P T CMP3 TROPABI Echavarria MDIFF #### [address] [place], [place] Troponin Ion 08-14-2018 Troponin I.cardiac [Mass/Vol] ng/mL Normal 0.000-0.034 [facility] Comment on above: Result Comment: 0.04 6 - 0.400 = Indeterminate > 0.400 = Consider Myocardial Injury Performed By: #### P T, CMP3 TROPABI Echavarria MDIFF #### [address] [place], [place] CR Chest Portableon 08-11-19 19 CR Chest Portable Patient Name: XAVIER RAHMAN Diagnostic Radiology Exam Date/Time 08/10/2018 07:38:14 EDT Exam CR Chest Portable Ordering Physician NATTY DILLARD Accession Number [id number] CPT4 Codes 46292 () Reason For Exam left hemothorax Report [...] Transcribed Date and Time: 08/10/2018 10:18 Normal [facility] VL Venous Duplex US Lower Ex t Bilateralon 08-10-2018 VL Venous Duplex US Lower Ext Bilateral Patient Name: XAVIER RAHMAN Ultrasound Exam Date/Time 08/10/2018 10:03:25 EDT Exam VL Venous Duplex US Lower Ext Bilateral Ordering Physician NATTY DILLARD Accession Number [id number] CPT4 Codes 23017 () Reason For Exam edema Report [facility] ------ --- Lower Extremity Venous Duplex Report Patient Name: Xavier Rahman : 1940 Study Date: 08/10/2018 (78yrs) Age: 78 Account: [id number] Gender: F Loc: 1337 BP: Ordering: Natty Parkinson Technologist: Ordering Physician: Natty Parkinson Recreation Teacher: Renee Lord T Interpreting Physician: Jose Carpenter ------ --- Location: [facility] ------ --- INDICATIONS: Edema. Bilateral calf edema. [...] performed. The images were obtained using a [email or web address] E9 vascular ultrasound machine. ------ --- VENOUS [...] ------ --+ Electronically signed by: Jose Carpenter [id number] Final Dictated: 08/10/2018 2:20 pm Dictating Physician: JOSE CARPENTER Signed Date and Time: 08/10/2018 2:20 pm Signed by: JOSE CARPENTER [facility] CR Chest Portableon 08-10-19 19 CR Chest Portable Patient Name: XAVIER RAHMAN Diagnostic Radiology Exam Date/Time 08/09/2018 16:12:08 EDT Exam CR Chest Portable Ordering Physician ADRIAN NIEVES JULIE Accession Number [id number] CPT4 Codes 91259 () Reason For Exam chest tube removal [...] Transcribed Date and Time: 08/09/2018 8:01 Normal [facility] CR Chest Portable Patient Name: XAVIER RAHMAN Diagnostic Radiology Exam Date/Time 08/09/2018 07:06:40 EDT Exam CR Chest Portable Ordering Physician Adarsh NATTY DUCKWORTH Accession Number [id number] CPT4 Codes 68259 () Reason For Exam left hemothorax Report [...] R Transcribed Date and Time: 08/09/2018 7:24 [facility] CR Chest Portableon 08-09-19 CR Chest Portable Patient Name: XAVIER RAHMAN Diagnostic Radiology Exam Date/Time 08/08/2018 07:36:58 EDT Exam CR Chest Portable Ordering Physician [id number] NATTY DUCKWORTH Accession Number [id number] CPT4 Codes 80461 () Reason For Exam left hemothorax Report [...] Transcribed Date and Time: 08/08/2018 8:51 Normal [facility] CR Chest Portableon 08-08-19 19 CR Chest Portable Patient Name: XAVIER RAHMAN Diagnostic Radiology Exam Date/Time 08/07/2018 07:07:35 EDT Exam CR Chest Portable Ordering Physician [id number] RED Accession Number [id number] CPT4 Codes 87225 () Reason For Exam left hemothorax Report [...] Transcribed Date and Time: 08/07/2018 7:25 Normal [facility] Hemogramon 08-07-2018 Erythrocyte distribution width (RBC) [Ratio] 16.1 % High 11.5-14.5 [facility] Comment on above: Performed By: #### P IGNACIA Carreno TROPN, HEMDF, MDIFF #### [address] [address] Hematocrit (Bld) [Volume fraction] 28.8 % Low 35.0-47.0 [facility] Comment on above: Performed By: #### IGNACIA Armstrong TROPN, HEMDF, MDIFF #### [address] [place], [place] Hemoglobin (Bld) [Mass/Vol] 9.3 g/dL Low 11.7-16.0 [facility] Comment on above: Performed By: #### P T, CMP3, TROPN, HEMYESY, IFF #### [address] [place], [place] MCH (RBC) [Entitic mass] 27.8 pg Normal 26.0-34.0 [facility] Comment on above: Performed By: #### P T, CMP3, TROPN, HEMDF, MDIFF #### [address] [place], [place] MCHC (RBC) [Mass/Vol] 32.4 % Normal 32.0-36.0 [facility] Comment on above: Performed By: #### P T, CMP3, TROPN, HEMYESY, MDIFF #### [address] [place], [place] MCV (RBC) [Entitic vol] 85.9 fL Normal 79.0-98.0 [facility] Comment on above: Performed By: #### P T, CMP3, TROPN, HEMYESY, IFF #### [address] [place], [place] Platelet mean volume (Bld) [Entitic vol] 7.1 fL Low 7.4-10.4 [facility] Comment on above: Performed By: #### P T, CMP3, TROPN, HEMDF, MDIFF #### [address] [place], [place] Platelets (Bld) [#/Vol] 486 10*3/uL High 140-440 [facility] Comment on above: Performed By: #### P T, CMP3, TROPN, HEMDF, MDIFF #### [address] [place], [place] RBC (Bld) [#/Vol] 3.35 10*6/uL Low 3.80-5.20 [facility] Comment on above: Performed By: #### P T, CMP3, TROPN, HEMDF, MDIFF #### [facility] [address] [place] [address] WBC (Bld) [#/Vol] 9.1 10*3/uL Normal 3.6-10.7 [facility] Comment on above: Performed By: #### P JORDI Carreno3, ABI BARBOZA, MDIFF #### [facility] [address] [place] [address] VL Venous Duplex US Lower Ex t Bilateralon 08-07-2018 VL Venous Duplex US Lower Ext Bilateral Patient Name: XAVIER RAHMAN Ultrasound Exam Date/Time 08/07/2018 09:03:04 EDT Exam VL Venous Duplex US Lower Ext Bilateral Ordering Physician [id number] NATTY DUCKWORTH Accession Number [id number] CPT4 Codes 69953 () Reason For Exam edema Report [facility] ------ --- Lower Extremity Venous Duplex Report Patient Name: Xavier Rahman : 1940 Study Date: 08/07/2018 (78yrs) Age: 78 Account: [id number] Gender: F Loc: 1337 BP: Ordering: Natty Parkinson Technologist: Ordering Physician: Natty Parkinson Recreation Teacher: Michelle Caicedo Janneth Interpreting Physician: Jose Carpenter ------ --- Location: [facility] ------ --- INDICATIONS: Edema. bilateral lowers ------ [...] ------ --+ Electronically signed by: Jose Carpenter [id number] Final Dictated: 08/07/2018 10:13 am Dictating Physician: JOSE CARPENTER Signed Date and Time: 08/07/2018 10:13 am Signed by: JOSE CARPENTER Normal [facility] Basic Metabolic Panelon 07-18 Calcium [Mass/Vol] 8.4 mg/dL Normal 8.4-10.4 [facility] Comment on above: Performed By: #### P T, CMP3, TROPN, HEMDF, MDIFF #### [facility] [address] [place], [place] Glucose [Mass/Vol] 93 mg/dL Normal 70-100 [facility] Comment on above: Performed By: #### P T, CMP3, TROPN, HEMDF, MDIFF #### [address] [place], [place] Anion gap [Moles/Vol] 2 Normal [facility] Comment on above: Performed By: #### P T, CMP3, TROPN, HEMYESY, MDIFF #### [address] [place], [place] CO2 [Moles/Vol] 26 mmol/L Normal 22-30 [facility] Comment on above: Performed By: #### P T, CMP3, TROPN, HEMYESY, MDIFF #### [address] [place], [place] Creatinine [Mass/Vol] 0.57 mg/dL Normal 0.52-1.25 [facility] Comment on above: Performed By: #### P T, CMP3, TROPN, HEMYESY, MDIFF #### [address] [place], [place] GFR/1.73 sq M predicted among blacks MDRD (S/P/Bld) [Vol rate/Area] mL/min/{1.73_m2} Normal >60 [facility] Comment on above: Performed By: #### P T, CMP3, TROPN, HEMDF, MDIFF #### [address] [place], [place] GFR/1.73 sq M predicted among non-blacks MDRD (S/P/Bld) [Vol rate/Area] mL/min/{1.73_m2} Normal >60 [facility] Comment on above: Result Comment: Sour ce- MDRD equation with creatinine calibration to IDMS(NKDEP) eGFR not recommended for drug dose adjustment Performed By: #### P T, CMP3, TROPN, HEMDF, MDIFF #### [address] [place], [place] Urea nitrogen [Mass/Vol] 14 mg/dL Normal 7-20 [facility] Comment on above: Performed By: #### P TIGNACIA TROPN, HEMDF, MDIFF #### [facility] [address] [place] [address] Chloride [Moles/Vol] 108 mmol/L High 98-107 [facility] Comment on above: Performed By: #### P TIGNACIA TROPN, HEMDF, MDIFF #### [facility] [address] [place] [address] Potassium [Moles/Vol] 4.3 mmol/L Normal 3.5-5.1 [facility] Comment on above: Performed By: #### P TIGNACIA TROPN, HEMDF, MDIFF #### [facility] [address] [place] [address] Sodium [Moles/Vol] 137 mmol/L Normal 135-145 [facility] Comment on above: Performed By: #### P T CMPJABARI Saenz HEMDF, MDIFF #### [facility] [address] [place] [address] CR Chest Portableon 08-07-19 19 CR Chest Portable Patient Name: XAVIER RAHMAN Diagnostic Radiology Exam Date/Time 08/06/2018 19:15:00 EDT Exam CR Chest Portable Ordering Physician [id number] BURNS Accession Number [id number] CPT4 Codes 25082 () Reason For Exam dyspnea Report PORTABLE [...] Transcribed Date and Time: 08/06/2018 7:40 Normal [facility] CR Chest Portable Patient Name: XAVIER RAHMAN Diagnostic Radiology Exam Date/Time 08/06/2018 06:53:49 EDT Exam CR Chest Portable Ordering Physician [id number] CONNORS Accession Number [id number] CPT4 Codes 40852 () Reason For Exam left hemothorax Report [...] Transcribed Date and Time: 08/06/2018 9:37 Normal [facility] Hemogramon 08-06-2018 Erythrocyte distribution width (RBC) [Ratio] 15.6 % High 11.5-14.5 [facility] Comment on above: Performed By: #### P T CMP3JABARI HEMDF, MDIFF #### [address] Hematocrit (Bld) [Volume fraction] 24.9 % Low 35.0-47.0 [facility] Comment on above: Performed By: #### P T CMP3JABARI HEMDF, MDIFF #### [address] Hemoglobin (Bld) [Mass/Vol] 8.4 g/dL Low 11.7-16.0 [facility] Comment on above: Performed By: #### P T CMP3JABARI HEMDF, MDIFF #### [address] MCH (RBC) [Entitic mass] 28.6 pg Normal 26.0-34.0 [facility] Comment on above: Performed By: #### P T, CMP3, TROPN, HEMDF, MDIFF #### [address] [place], [place] MCHC (RBC) [Mass/Vol] 33.6 % Normal 32.0-36.0 [facility] Comment on above: Performed By: #### P T, CMP3, TROPN, HEMDF, MDIFF #### [address] [place], [place] MCV (RBC) [Entitic vol] 85.2 fL Normal 79.0-98.0 [facility] Comment on above: Performed By: #### P T, CMP3, TROPN, HEMDF, MDIFF #### [address] [place], [place] Platelet mean volume (Bld) [Entitic vol] 7.1 fL Low 7.4-10.4 [facility] Comment on above: Performed By: #### P T, CMP3, TROPN, HEMDF, MDIFF #### [address] [place], [place] Platelets (Bld) [#/Vol] 403 10*3/uL Normal 140-440 [facility] Comment on above: Performed By: #### P T, CMP3, TROPN, HEMDF, MDIFF #### [address] [place], [place] RBC (Bld) [#/Vol] 2.93 10*6/uL Low 3.80-5.20 [facility] Comment on above: Performed By: #### P T, CMP3, TROPN, HEMDF, MDIFF #### [address] WBC (Bld) [#/Vol] 7.4 10*3/uL Normal 3.6-10.7 [facility] Comment on above: Performed By: #### P T, CMP3, TROPN, HEMDF, MDIFF #### [facility] [address] [place] [address] CR Chest Portableon 08-06-19 CR Chest Portable Patient Name: XAVIER RAHMAN Diagnostic Radiology Exam Date/Time 08/05/2018 07:27:49 EDT Exam CR Chest Portable Ordering Physician [id number] CONNORS Accession Number [id number] CPT4 Codes 52754 () Reason For Exam left hemothorax Report [...] Transcribed Date and Time: 08/05/2018 8:52 Normal [facility] Hemogramon 08-05-2018 Erythrocyte distribution width (RBC) [Ratio] 16.0 % High 11.5-14.5 [facility] Comment on above: Performed By: #### IGNACIA Armstrong TROPN, HEMDF, MDIFF #### [facility] [address] [place] [address] Hematocrit (Bld) [Volume fraction] 28.7 % Low 35.0-47.0 [facility] Comment on above: Performed By: #### IGNACIA Armstrong TROPN, HEMDF, MDIFF #### [facility] [address] [place] [address] Hemoglobin (Bld) [Mass/Vol] 9.5 g/dL Low 11.7-16.0 [facility] Comment on above: Performed By: #### P T, CMP3, TROPN, HEMDF, MDIFF #### [address] [place], [place] MCH (RBC) [Entitic mass] 28.4 pg Normal 26.0-34.0 [facility] Comment on above: Performed By: #### P T, CMP3, TROPN, HEMDF, MDIFF #### [address] [place] MCHC (RBC) [Mass/Vol] 33.0 % Normal 32.0-36.0 [facility] Comment on above: Performed By: #### P T, CMP3, TROPN, HEMDF, MDIFF #### [address] [place], [place] MCV (RBC) [Entitic vol] 86.0 fL Normal 79.0-98.0 [facility] Comment on above: Performed By: #### P T, CMP3, TROPN, HEMDF, MDIFF #### [address] [place], [place] Platelet mean volume (Bld) [Entitic vol] 7.4 fL Normal 7.4-10.4 [facility] Comment on above: Performed By: #### P T, CMP3, TROPN, HEMDF, MDIFF #### [address] [place], [place] Platelets (Bld) [#/Vol] 366 10*3/uL Normal 140-440 [facility] Comment on above: Performed By: #### P T, CMP3, TROPN, HEMDF, MDIFF #### [address] [place], [place] RBC (Bld) [#/Vol] 3.34 10*6/uL Low 3.80-5.20 [facility] Comment on above: Performed By: #### P T, CMP3, TROPN, HEMDF, MDIFF #### [address] [place], [place] WBC (Bld) [#/Vol] 8.2 10*3/uL Normal 3.6-10.7 [facility] Comment on above: Performed By: #### P T, CMP3, TROPABI Echavarria, IFF #### [place] [id number] [place], [place] Basic Metabolic Panelon 04- Calcium [Mass/Vol] 7.7 mg/dL Low 8.4-10.4 [facility] Comment on above: Performed By: #### P T, CMP3, TROPN, HEMYESY, MDIFF #### [place] [id number] [place], [place] Anion gap [Moles/Vol] 3 Normal [facility] Comment on above: Performed By: #### P T, CMP3, TROPN, HEMYESY, MDIFF #### [address] [place], [place] CO2 [Moles/Vol] 23 mmol/L Normal 22-30 [facility] Comment on above: Performed By: #### P T, CMP3, TROPGagan, HEMYESY, MDIFF #### [address] [place], [place] Creatinine [Mass/Vol] 0.51 mg/dL Low 0.52-1.25 [facility] Comment on above: Performed By: #### P T, CMP3, TROPN, HEMYESY, MDIFF #### [address] [place], [place] GFR/1.73 sq M predicted among blacks MDRD (S/P/Bld) [Vol rate/Area] mL/min/{1.73_m2} Normal >60 [facility] Comment on above: Performed By: #### P T, CMP3, TROPN, HEMYESY, MDIFF #### [address] [place], [place] GFR/1.73 sq M predicted among non-blacks MDRD (S/P/Bld) [Vol rate/Area] mL/min/{1.73_m2} Normal >60 [facility] Comment on above: Result Comment: Sour ce- MDRD equation with creatinine calibration to IDMS(NKDEP) eGFR not recommended for drug dose adjustment Performed By: #### P TIGNACIA TROPN, HEMDF, MDIFF #### [address] [place] [address] Glucose [Mass/Vol] 170 mg/dL High 70-100 [facility] Comment on above: Performed By: #### P TIGNACIA TROPN, HEMDF, MDIFF #### [address] [place] [address] Urea nitrogen [Mass/Vol] 19 mg/dL Normal 7-20 [facility] Comment on above: Performed By: #### P TIGNACIA TROPN, HEMDF, MDIFF #### [address] [place] [address] Chloride [Moles/Vol] 109 mmol/L High 98-107 [facility] Comment on above: Performed By: #### P T CMPJABARI Saenz HEMDF, MDIFF #### [address] [place] [address] Potassium [Moles/Vol] 5.0 mmol/L Normal 3.5-5.1 [facility] Comment on above: Performed By: #### P T CMP3JABARI HEMDF, MDIFF #### [address] [place] [address] Sodium [Moles/Vol] 136 mmol/L Normal 135-145 [facility] Comment on above: Performed By: #### P T CMP3JABARI HEMDF, MDIFF #### [address] [place] [address] CR Chest Portableon 08-05-19 19 CR Chest Portable Patient Name: XAVIER RAHMAN Diagnostic Radiology Exam Date/Time 08/04/2018 15:04:12 EDT Exam CR Chest Portable Ordering Physician [id number] CONNORS Accession Number [id number] CPT4 Codes 21138 () Reason For Exam chest tubes from [...] Transcribed Date and Time: 08/04/2018 3:35 Normal [facility] CR Chest Portable Patient Name: XAVIER RAHMAN Diagnostic Radiology Exam Date/Time 08/04/2018 06:08:58 EDT Exam CR Chest Portable Ordering Physician [id number] NATTY DUCKWORTH Accession Number [id number] CPT4 Codes 56890 () Reason For Exam left hemothorax Report [...] Transcribed Date and Time: 08/04/2018 8:00 Normal [facility] Hemoglobin AND Hematocriton 08-04-2018 Hematocrit (Bld) [Volume fraction] 25.7 % Low 35.0-47.0 [facility] Comment on above: Performed By: #### P T, CMP3, TROPN, HEMYESY, IFF #### [address] [address] Hemoglobin (Bld) [Mass/Vol] 8.5 g/dL Low 11.7-16.0 [facility] Comment on above: Performed By: #### P T, CMP3, TROPN, HEMYESY, IFF #### [address] Hemogramon 08-04-2018 Erythrocyte distribution width (RBC) [Ratio] 15.6 % High 11.5-14.5 [facility] Comment on above: Performed By: #### P T, CMP3, TROPN, HEMYESY, MDIFF #### [address] Hematocrit (Bld) [Volume fraction] 24.2 % Low 35.0-47.0 [facility] Comment on above: Performed By: #### P T, CMP3, TROPN, HEMYESY, MDIFF #### [address] Hemoglobin (Bld) [Mass/Vol] 8.1 g/dL Low 11.7-16.0 [facility] Comment on above: Performed By: #### P T, CMP3, TROPN, HEMYESY, MDIFF #### [address] MCH (RBC) [Entitic mass] 28.7 pg Normal 26.0-34.0 [facility] Comment on above: Performed By: #### P T, CMP3, TROPN, HEMYESY, MDIFF #### [address] MCHC (RBC) [Mass/Vol] 33.5 % Normal 32.0-36.0 [facility] Comment on above: Performed By: #### P T, CMP3, TROPN, HEMDF, MDIFF #### [address] MCV (RBC) [Entitic vol] 85.7 fL Normal 79.0-98.0 [facility] Comment on above: Performed By: #### P T, CMP3, TROPN, HEMDF, MDIFF #### [address] Platelet mean volume (Bld) [Entitic vol] 7.4 fL Normal 7.4-10.4 [facility] Comment on above: Performed By: #### P T, CMP3, ABI BARBOZA MDIFF #### [facility] [address] [place], [place] Platelets (Bld) [#/Vol] 317 10*3/uL Normal 140-440 [facility] Comment on above: Performed By: #### P T, CMP3, TROPABI Echavarria, IFF #### [address] [place], [place] RBC (Bld) [#/Vol] 2.83 10*6/uL Low 3.80-5.20 [facility] Comment on above: Performed By: #### P T, CMP3, TROPABI Echavarria MDIFF #### [address] [place], [place] WBC (Bld) [#/Vol] 9.2 10*3/uL Normal 3.6-10.7 [facility] Comment on above: Performed By: #### P T, CMP3, ABI BARBOZA MDIFF #### [address] [place], [place] Basic Metabolic Panelon - Anion gap [Moles/Vol] 3 Normal [facility] Comment on above: Performed By: #### H EMOG #### [address] [place], [place] Calcium [Mass/Vol] 8.3 mg/dL Low 8.4-10.4 [facility] Comment on above: Performed By: #### H EMOG #### [address] [place], [place] CO2 [Moles/Vol] 26 mmol/L Normal 22-30 [facility] Comment on above: Performed By: #### H EMOG #### [address] [place], [place] Glucose [Mass/Vol] 137 mg/dL High 70-100 [facility] Comment on above: Performed By: #### H EMOG #### [address] [place], [place] Urea nitrogen [Mass/Vol] 20 mg/dL Normal 7-20 [facility] Comment on above: Performed By: #### H EMOG #### [address] [place], [place] Creatinine [Mass/Vol] 0.64 mg/dL Normal 0.52-1.25 [facility] Comment on above: Performed By: #### H EMOG #### [address] [place] [address] GFR/1.73 sq M predicted among blacks MDRD (S/P/Bld) [Vol rate/Area] mL/min/{1.73_m2} Normal >60 [facility] Comment on above: Performed By: #### H EMOG #### [address] [place], [place] GFR/1.73 sq M predicted among non-blacks MDRD (S/P/Bld) [Vol rate/Area] mL/min/{1.73_m2} Normal >60 [facility] Comment on above: Result Comment: Sour ce- MDRD equation with creatinine calibration to IDMS(NKDEP) eGFR not recommended for drug dose adjustment Performed By: #### H EMOG #### [address] [place], [place] Potassium [Moles/Vol] 4.1 mmol/L Normal 3.5-5.1 [facility] Comment on above: Performed By: #### H EMOG #### [address] [place], [place] Sodium [Moles/Vol] 137 mmol/L Normal 135-145 [facility] Comment on above: Performed By: #### H EMOG #### [address] [place], [place] Chloride [Moles/Vol] 108 mmol/L High 98-107 [facility] Comment on above: Performed By: #### H EMOG #### [address] [place] [address] CR Chest Portableon 08-04-19 19 CR Chest Portable Patient Name: XAVIER RAHMAN Diagnostic Radiology Exam Date/Time 08/03/2018 05:57:32 EDT Exam CR Chest Portable Ordering Physician [id number] NATTY DUCKWORTH Accession Number [id number] CPT4 Codes 00949 () Reason For Exam left hemothorax Report [...] Transcribed Date and Time: 08/03/2018 9:26 Normal [facility] Hemogramon 08-03-2018 Erythrocyte distribution width (RBC) [Ratio] 15.2 % High 11.5-14.5 [facility] Comment on above: Performed By: #### H EMOG #### [address] [place] [address] Hematocrit (Bld) [Volume fraction] 25.7 % Low 35.0-47.0 [facility] Comment on above: Performed By: #### H EMOG #### [address] [address] Hemoglobin (Bld) [Mass/Vol] 8.4 g/dL Low 11.7-16.0 [facility] Comment on above: Result Comment: REPE ATED Performed By: #### H EMOG #### [facility] [address] [place], [place] MCH (RBC) [Entitic mass] 27.6 pg Normal 26.0-34.0 [facility] Comment on above: Performed By: #### H EMOG #### [facility] [address] [place], [place] MCHC (RBC) [Mass/Vol] 32.7 % Normal 32.0-36.0 [facility] Comment on above: Performed By: #### H EMOG #### [facility] [address] [place], [place] MCV (RBC) [Entitic vol] 84.5 fL Normal 79.0-98.0 [facility] Comment on above: Performed By: #### H EMOG #### [facility] [address] [place], [place] Platelet mean volume (Bld) [Entitic vol] 8.3 fL Normal 7.4-10.4 [facility] Comment on above: Performed By: #### H EMOG #### [facility] [address] [place], [place] Platelets (Bld) [#/Vol] 310 10*3/uL Normal 140-440 [facility] Comment on above: Performed By: #### H EMOG #### [facility] [address] [place], [place] RBC (Bld) [#/Vol] 3.04 10*6/uL Low 3.80-5.20 [facility] Comment on above: Performed By: #### H EMOG #### [facility] [address] [place], [place] WBC (Bld) [#/Vol] 13.7 10*3/uL High 3.6-10.7 [facility] Comment on above: Performed By: #### H EMOG #### [facility] [address] [place], [place] Basic Metabolic Panelon - Calcium [Mass/Vol] 8.6 mg/dL Normal 8.4-10.4 [facility] Comment on above: Performed By: #### H EMOG, BMP3M, TSH5, B12, FOLT3, FEIBC, FERR3 ####[id number] [place], [place] #### VD25H ####[facility] [place] [address] Anion gap [Moles/Vol] 2 Normal [facility] Comment on above: Performed By: #### H EMOG, BMP3M, TSH5, B12, FOLT3, FEIBC, FERR3 ####[address], [place] #### VD25H ####[facility] [place] [address] CO2 [Moles/Vol] 30 mmol/L Normal 22-30 [facility] Comment on above: Performed By: #### H EMOG, BMP3M, TSH5, B12, FOLT3, FEIBC, FERR3 ####[address] #### VD25H ####[facility] [place] [address] Creatinine [Mass/Vol] 0.57 mg/dL Normal 0.52-1.25 [facility] Comment on above: Performed By: #### H EMOG, BMP3M, TSH5, B12, FOLT3, FEIBC, FERR3 ####[address] #### VD25H ####[facility] [place] [facility] [place] [address] GFR/1.73 sq M predicted among blacks MDRD (S/P/Bld) [Vol rate/Area] mL/min/{1.73_m2} Normal >60 [facility] Comment on above: Performed By: #### H EMOG, BMP3M, TSH5, B12, FOLT3, FEIBC, FERR3 ####[address] #### VD25H ####[facility] [place] [address] GFR/1.73 sq M predicted among non-blacks MDRD (S/P/Bld) [Vol rate/Area] mL/min/{1.73_m2} Normal >60 [facility] Comment on above: Result Comment: Sour ce- MDRD equation with creatinine calibration to IDMS(NKDEP) eGFR not recommended for drug dose adjustment Performed By: #### H EMOG, BMP3M, TSH5, B12, FOLT3, FEIBC, FERR3 ####[address] [place] [address]#### VD25H ####[place] [place] [address] Glucose [Mass/Vol] 106 mg/dL High 70-100 [facility] Comment on above: Performed By: #### H EMOG, BMP3M, TSH5, B12, FOLT3, FEIBC, FERR3 ####[address], [place] #### VD25H ####[address] [place] [address] Urea nitrogen [Mass/Vol] 18 mg/dL Normal 7-20 [facility] Comment on above: Performed By: #### H EMOG, BMP3M, TSH5, B12, FOLT3, FEIBC, FERR3 ####[address] [place] [address]#### VD25H ####[address] [place] [address] Chloride [Moles/Vol] 106 mmol/L Normal 98-107 [facility] Comment on above: Performed By: #### H EMOG, BMP3M, TSH5, B12, FOLT3, FEIBC, FERR3 ####[address] [place] [address]#### VD25H ####[address] [place] [address] Potassium [Moles/Vol] 4.3 mmol/L Normal 3.5-5.1 [facility] Comment on above: Performed By: #### H EMOG, BMP3M, TSH5, B12, FOLT3, FEIBC, FERR3 ####[facility] [address] [place] [address]#### VD25H ####[facility] [address] [place] [address] Sodium [Moles/Vol] 137 mmol/L Normal 135-145 [facility] Comment on above: Performed By: #### H EMOG, BMP3M, TSH5, B12, FOLT3, FEIBC, FERR3 ####[facility] [address] [place] [address]#### VD25H ####[facility] [place] [address] CR Chest Portableon 08-03-19 19 CR Chest Portable Patient Name: XAVIER RAHMAN Diagnostic Radiology Exam Date/Time 08/02/2018 16:40:59 EDT Exam CR Chest Portable Ordering Physician MD SUSANNE, JENNY Accession Number [id number] CPT4 Codes 60056 () Reason For Exam chest tubes Report [...] Transcribed Date and Time: 08/02/2018 4:50 Normal [facility] CR Chest Portable Patient Name: XAVIER RAHMAN Diagnostic Radiology Exam Date/Time 08/02/2018 09:25:46 EDT Exam CR Chest Portable Ordering Physician NATTY DILLARD Accession Number [id number] CPT4 Codes 81780 () Reason For Exam chest pain Report [...] Transcribed Date and Time: 08/02/2018 9:36 Normal [facility] CR Chest Portable Patient Name: XAVIER RAHMAN Diagnostic Radiology Exam Date/Time 08/02/2018 06:38:11 EDT Exam CR Chest Portable Ordering Physician Adasrh DUCKWORTHNATTY Accession Number [id number] CPT4 Codes 71252 () Reason For Exam left hemothorax Report [...] Transcribed Date and Time: 08/02/2018 8:57 Normal [facility] CTA Chest w/ + w/o Contrasto n 08-02-2018 CTA Chest w/ + w/o Contrast Patient Name: XAVIER RAHMAN CT Exam Date/Time 08/02/2018 10:45:16 EDT Exam CTA Chest w/ + w/o Contrast Ordering Physician [id number] RED Accession Number [id number] CPT4 Codes 61218 (), Q9967 (CT ISOVUE 370MG/[id number] ndMLand1) Reason For Exam Rule out PE. [...] Transcribed Date and Time: 08/02/2018 10:53 Normal [facility] Ferritinon 08-02-2018 Ferritin [Mass/Vol] 68 ng/mL Normal 8-252 [facility] Comment on above: Performed By: #### H EMOG, BMP3M, TSH5, B12, FOLT3, FEIBC, FERR3 ####[facility] [employer] [address] [place] [address]#### VD25H ####[facility] [place] [address] Folateon 08-02-2018 Folate > 20.0 Normal 2.8-20.0 [facility] Comment on above: Performed By: #### H EMOG, BMP3M, TSH5, B12, FOLT3, FEIBC, FERR3 ####[facility] [place], [place] #### VD25H ####[facility] [place] [address] Hemoglobin AND Hematocriton 08-02-2018 Hematocrit (Bld) [Volume fraction] 31.9 % Low 35.0-47.0 [facility] Comment on above: Performed By: #### H EMOG #### [facility] [address] [place], [place] Hemoglobin (Bld) [Mass/Vol] 10.6 g/dL Low 11.7-16.0 [facility] Comment on above: Performed By: #### H EMOG #### [facility] [address] [place], [place] Hemogramon 08-02-2018 Erythrocyte distribution width (RBC) [Ratio] 15.4 % High 11.5-14.5 [facility] Comment on above: Performed By: #### H EMOG, BMP3M, TSH5, B12, FOLT3, FEIBC, FERR3 ####[facility] [employer] [address] [place], [place] #### VD25H ####[facility] [employer] [address] [place] [address] Hematocrit (Bld) [Volume fraction] 19.8 % Low 35.0-47.0 [facility] Comment on above: Performed By: #### H EMOG, BMP3M, TSH5, B12, FOLT3, FEIBC, FERR3 ####[address] [place], [place] #### VD25H ####[facility] [employer] [address] [place] [address] Hemoglobin (Bld) [Mass/Vol] 6.7 g/dL Critically low 11.7-16.0 [facility] Comment on above: Result Comment: repe ated Performed By: #### H EMOG, BMP3M, TSH5, B12, FOLT3, FEIBC, FERR3 ####[address] #### VD25H ####[address] [place] [address] MCH (RBC) [Entitic mass] 29.0 pg Normal 26.0-34.0 [facility] Comment on above: Performed By: #### H EMOG, BMP3M, TSH5, B12, FOLT3, FEIBC, FERR3 ####[address] #### VD25H ####[address] [place] [address] MCHC (RBC) [Mass/Vol] 33.9 % Normal 32.0-36.0 [facility] Comment on above: Performed By: #### H EMOG, BMP3M, TSH5, B12, FOLT3, FEIBC, FERR3 ####[address] #### VD25H ####[address] [place] [address] MCV (RBC) [Entitic vol] 85.5 fL Normal 79.0-98.0 [facility] Comment on above: Performed By: #### H EMOG, BMP3M, TSH5, B12, FOLT3, FEIBC, FERR3 ####[address] #### VD25H ####[address] [place] [address] Platelet mean volume (Bld) [Entitic vol] 7.7 fL Normal 7.4-10.4 [facility] Comment on above: Performed By: #### H EMOG, BMP3M, TSH5, B12, FOLT3, FEIBC, FERR3 ####[address] #### VD25H ####[address] [place] [address] Platelets (Bld) [#/Vol] 312 10*3/uL Normal 140-440 [facility] Comment on above: Performed By: #### H EMOG, BMP3M, TSH5, B12, FOLT3, FEIBC, FERR3 ####[address] [place], [place] #### VD25H ####[facility] [place] [facility] [place] [address] RBC (Bld) [#/Vol] 2.32 10*6/uL Low 3.80-5.20 [facility] Comment on above: Performed By: #### H EMOG, BMP3M, TSH5, B12, FOLT3, FEIBC, FERR3 ####[address] [place], [place] #### VD25H ####[address] [place] [address] WBC (Bld) [#/Vol] 9.4 10*3/uL Normal 3.6-10.7 [facility] Comment on above: Performed By: #### H EMOG, BMP3M, TSH5, B12, FOLT3, FEIBC, FERR3 ####[address] #### VD25H ####[address] [place] [address] Iron AND TIBCon 08-02-2018 Saturation 7 % Low 15-50 [facility] Comment on above: Performed By: #### H EMOG, BMP3M, TSH5, B12, FOLT3, FEIBC, FERR3 ####[address] #### VD25H ####[address] [place] [address] Total Iron Binding Cap. 260 ug/dL Low 261-497 [facility] Comment on above: Performed By: #### H EMOG, BMP3M, TSH5, B12, FOLT3, FEIBC, FERR3 ####[address] #### VD25H ####[address] [place] [address] Iron, Total 19 ug/dL Low 37-170 [facility] Comment on above: Performed By: #### H EMOG, BMP3M, TSH5, B12, FOLT3, FEIBC, FERR3 ####[facility] [place] [address]#### VD25H ####[facility] [facility] [place] [address] Leukodepleted Red Cellson Leukodepleted Red Cells Leukodepleted Re d Cells: [id number] transfused 08/02/18 03:34 JMV Unit Blood Type: O Unit Blood Rh: POS Blood Product Code: CP1 Unit Number: [id number] Unit Status: transfused Barcoded Unit Number: =[id number] Barcoded Product Code: = Barcoded ABO/Rh: =%5100 Unit Expiration: Unit Volume Transfused: 250 Unit Transfusion Start Date/Time: Leukodepleted Red Cells: [id number] released 08/05/18 05:43 ERR Unit Blood Type: O Unit Blood Rh: POS Blood Product Code: AS1 Unit Number: [id number] Unit Status: released Barcoded Unit Number: =[id number] Barcoded Product Code: = Barcoded ABO/Rh: =%5100 Unit Expiration: [id number] Leukodepleted Red Cells: [id number] released 08/05/18 05:43 ERR Unit Blood Type: O Unit Blood Rh: POS Blood Product Code: LP1 Unit Number: [id number] Unit Status: released Barcoded Unit Number: =[id number] Barcoded Product Code: = Barcoded ABO/Rh: =%5100 Unit Expiration: [id number] Leukodepleted Red Cells: [id number] transfused 08/02/18 05:50 JMV Unit Blood Type: O Unit Blood Rh: POS Blood Product Code: LP1 Unit Number: [id number] Unit Status: transfused Barcoded Unit Number: =[id number] Barcoded Product Code: = Barcoded ABO/Rh: =%5100 Unit Expiration: [id number] Unit Volume Transfused: 300 Unit Transfusion Start Date/Time: Normal [facility] Comment on above: Performed By: #### H EMOG #### [facility] [address] [place], [place] TS GELon 08-02-2018 TS GEL ABO Group: O Rh, Gel: POS Antibody Screen Gel: NEG Normal [facility] Comment on above: Performed By: #### H EMOG #### [facility] [address] [place], [place] Thyroid Stim. Hormoneon 07-17 Thyroid Stim. Hormone 1.769 u[IU]/mL Normal 0.465-4.68 0 [facility] Comment on above: Performed By: #### H EMOG, BMP3M, TSH5, B12, FOLT3, FEIBC, FERR3 ####[facility] [address] [place], [place] #### VD25H ####[facility] [address] [place] [address] Troponin Ion 08-02-2018 Troponin I.cardiac [Mass/Vol] 0.021 ng/mL Normal 0.000-0.034 [facility] Comment on above: Result Comment: Mode rately hemolysed, interpret with caution. 0.046 - 0.400 = Indeterminate > 0.400 = Consider Myocardial Injury Performed By: #### H EMOG #### [facility] [address] [place], [place] Vit D 25-OH, Totalon 019 Vit D 25-OH, Total 20 ng/mL Low 30-100 [facility] Comment on above: Result Comment: Ther apy is based on measurement of Total 25-OHD with the following classification levels: Less than 20 ng/mL: Indicative of Vit D deficiency 20-30 ng/mL: Suggests Vit D insufficiency Optimal: Greater than or equal to 30 ng/mL Test performed by [employer] Competitive Immunoassay, measuring Total Vitamin D, not individual fractions. Performed By: #### H EMOG, BMP3M, TSH5, B12, FOLT3, FEIBC, FERR3 ####[facility] [facility] [id number] [place], [place] #### VD25H ####[facility] [place] [facility] [place] [address] Vitamin B12on 08-02-2018 Cobalamin (Vitamin B12) [Mass/Vol] pg/mL High 239-931 [facility] Comment on above: Performed By: #### H NIRMALA, BMP3M, TSH5, B12, FOLT3, FEIBC, FERR3 ####[facility] [place], [place] #### VD25H ####[facility] [place] [facility] [place] [address] Basic Metabolic Panelon 07-17 Calcium [Mass/Vol] 9.0 mg/dL Normal 8.4-10.4 [facility] Comment on above: Performed By: #### H NIRMALA BMP3M #### [facility] [address] [place], [place] Anion gap [Moles/Vol] 6 Normal [facility] Comment on above: Performed By: #### H NIRMALA BMP3M #### [facility] [address] [place], [place] CO2 [Moles/Vol] 31 mmol/L High 22-30 [facility] Comment on above: Performed By: #### H NIRMALA BMP3M #### [facility] [address] [place], [place] Creatinine [Mass/Vol] 0.66 mg/dL Normal 0.52-1.25 [facility] Comment on above: Performed By: #### H EMOYifan BMP3M #### [facility] [address] [place], [place] GFR/1.73 sq M predicted among blacks MDRD (S/P/Bld) [Vol rate/Area] mL/min/{1.73_m2} Normal >60 [facility] Comment on above: Performed By: #### H EMOYifan BMP3M #### [facility] [address] [place], [place] GFR/1.73 sq M predicted among non-blacks MDRD (S/P/Bld) [Vol rate/Area] mL/min/{1.73_m2} Normal >60 [facility] Comment on above: Result Comment: Sour ce- MDRD equation with creatinine calibration to IDMS(NKDEP) eGFR not recommended for drug dose adjustment Performed By: #### H JACQUE SILVESTRE #### [facility] [address] [place] [address] Glucose [Mass/Vol] 117 mg/dL High 70-100 [facility] Comment on above: Performed By: #### NA COPELAND3M #### [facility] [address] [place] [address] Urea nitrogen [Mass/Vol] 24 mg/dL High 7-20 [facility] Comment on above: Performed By: #### NA COPELAND3M #### [address] [place] [address] Chloride [Moles/Vol] 102 mmol/L Normal 98-107 [facility] Comment on above: Performed By: #### NA COPELAND3M #### [facility] [address] [place] [address] Potassium [Moles/Vol] 4.4 mmol/L Normal 3.5-5.1 [facility] Comment on above: Performed By: #### NA COPELAND3M #### [facility] [address] [place] [address] Sodium [Moles/Vol] 139 mmol/L Normal 135-145 [facility] Comment on above: Performed By: #### NA COPELAND3M #### [facility] [address] [place] [address] CR Chest Portableon 08-02-19 19 CR Chest Portable Patient Name: XAVIER RAHMAN Diagnostic Radiology Exam Date/Time 08/01/2018 12:21:33 EDT Exam CR Chest Portable Ordering Physician MD SUSANNE, JENNY Accession Number [id number] CPT4 Codes 26281 () Reason For Exam Left second chest [...] Transcribed Date and Time: 08/01/2018 2:34 Normal [facility] CR Chest Portable Patient Name: XAVIER RAHMAN Diagnostic Radiology Exam Date/Time 08/01/2018 07:59:47 EDT Exam CR Chest Portable Ordering Physician [id number] RED Accession Number [id number] CPT4 Codes 02727 () Reason For Exam left hemothorax Report [...] Transcribed Date and Time: 08/01/2018 10:56 Normal [facility] Comp Metabolic Panelon 08-01 ALP [Catalytic activity/Vol] 59 U/L Normal 38-126 [facility] Comment on above: Performed By: #### P T, CMP3, TROPN, HEMDF, MDIFF #### [address] [address] ALT [Catalytic activity/Vol] 31 U/L Normal 13-69 [facility] Comment on above: Performed By: #### P T, CMP3, TROPN, HEMDF, MDIFF #### [place] [address] [address] [place], [place] Calcium [Mass/Vol] 8.8 mg/dL Normal 8.4-10.4 [facility] Comment on above: Performed By: #### P T, CMP3, TROPN, HEMDF, MDIFF #### [address] [place], [place] Glucose [Mass/Vol] 143 mg/dL High 70-100 [facility] Comment on above: Performed By: #### P T, CMP3, TROPN, HEMYESY, IFF #### [address] [place], [place] Urea nitrogen [Mass/Vol] 26 mg/dL High 7-20 [facility] Comment on above: Performed By: #### P T, CMP3, TROPN, HEMYESY, IFF #### [address] [place], [place] Anion gap [Moles/Vol] 5 Normal [facility] Comment on above: Performed By: #### P T, CMP3, TROPN HEMMD YESYIFF #### [address] [place], [place] AST [Catalytic activity/Vol] 18 U/L Normal 15-46 [facility] Comment on above: Performed By: #### P T, CMP3, TROPN, HEMYESY, MDIFF #### [address] [place], [place] Bilirubin [Mass/Vol] 0.5 mg/dL Normal 0.2-1.3 [facility] Comment on above: Performed By: #### P T, CMP3, TROPN, HEMYESY, MDIFF #### [address] [place], [place] CO2 [Moles/Vol] 31 mmol/L High 22-30 [facility] Comment on above: Performed By: #### P T, CMP3, TROPN, HEMDF, MDIFF #### [address] [place] Creatinine [Mass/Vol] 0.74 mg/dL Normal 0.52-1.25 [facility] Comment on above: Performed By: #### P T, CMP3, TROPN HEMYESY, IFF #### [address] [address] [place], [place] GFR/1.73 sq M predicted among blacks MDRD (S/P/Bld) [Vol rate/Area] mL/min/{1.73_m2} Normal >60 [facility] Comment on above: Performed By: #### P T, CMP3, TROPN HEMMD YESYIFF #### [address] [address] [place], [place] GFR/1.73 sq M predicted among non-blacks MDRD (S/P/Bld) [Vol rate/Area] mL/min/{1.73_m2} Normal >60 [facility] Comment on above: Result Comment: Sour ce- MDRD equation with creatinine calibration to IDMS(NKDEP) eGFR not recommended for drug dose adjustment Performed By: #### P T, CMP3, TROPABI Echavarria MDIFF #### [address] Protein [Mass/Vol] 6.1 g/dL Low 6.3-8.2 [facility] Comment on above: Performed By: #### P T, CMP3, TROPN HEMMD YESYIFF #### [address] Potassium [Moles/Vol] 4.0 mmol/L Normal 3.5-5.1 [facility] Comment on above: Performed By: #### P T, CMP3, TROPN HEMYESY MDIFF #### [address] Sodium [Moles/Vol] 139 mmol/L Normal 135-145 [facility] Comment on above: Performed By: #### P T, CMP3, TROPN, HEMYESY, MDIFF #### [address] Albumin [Mass/Vol] 3.2 g/dL Low 3.5-5.0 [facility] Comment on above: Performed By: #### IGNACIA Armstrong TROPN, HEMDF, MDIFF #### [facility] [address] [place], [place] Chloride [Moles/Vol] 103 mmol/L Normal 98-107 [facility] Comment on above: Performed By: #### IGNACIA Armstrong TROPN, HEMDF, MDIFF #### [address] [place] Hemogramon 08-01-2018 Erythrocyte distribution width (RBC) [Ratio] 15.0 % High 11.5-14.5 [facility] Comment on above: Performed By: #### H NIRMALA BMP3M #### [address] [place] Hematocrit (Bld) [Volume fraction] 22.3 % Low 35.0-47.0 [facility] Comment on above: Performed By: #### H NIRMALA BMP3M #### [address] [place] Hemoglobin (Bld) [Mass/Vol] 7.4 g/dL Low 11.7-16.0 [facility] Comment on above: Performed By: #### H EMOYifan BMP3M #### [address] [place] MCH (RBC) [Entitic mass] 28.3 pg Normal 26.0-34.0 [facility] Comment on above: Performed By: #### H EMOG BMP3M #### [address] [place] MCHC (RBC) [Mass/Vol] 33.0 % Normal 32.0-36.0 [facility] Comment on above: Performed By: #### H EMOG BMP3M #### [address] [place] MCV (RBC) [Entitic vol] 85.7 fL Normal 79.0-98.0 [facility] Comment on above: Performed By: #### H NIRMALA BMP3M #### [address] [place] Platelet mean volume (Bld) [Entitic vol] 7.8 fL Normal 7.4-10.4 [facility] Comment on above: Performed By: #### H NIRMALA BMP3M #### [address] [place] Platelets (Bld) [#/Vol] 323 10*3/uL Normal 140-440 [facility] Comment on above: Performed By: #### H NIRMALA BMP3M #### [address] [place] RBC (Bld) [#/Vol] 2.61 10*6/uL Low 3.80-5.20 [facility] Comment on above: Performed By: #### H NIRMALA BMP3M #### [address] [place] WBC (Bld) [#/Vol] 9.2 10*3/uL Normal 3.6-10.7 [facility] Comment on above: Performed By: #### H NA SILVESTRE3M #### [address] [place], [place] Hemogram w/ Autodiffon 08-01 Erythrocyte distribution width (RBC) [Ratio] 15.2 % High 11.5-14.5 [facility] Comment on above: Performed By: #### P T, CMP3, TROPN, HEMDF, MDIFF #### [address] [place] Hematocrit (Bld) [Volume fraction] 24.0 % Low 35.0-47.0 [facility] Comment on above: Performed By: #### P T, CMP3, TROPN, HEMDF, MDIFF #### [address] [place] Hemoglobin (Bld) [Mass/Vol] 7.9 g/dL Low 11.7-16.0 [facility] Comment on above: Performed By: #### P T, CMP3, TROPN, HEMDF, MDIFF #### [address] [place] MCH (RBC) [Entitic mass] 28.4 pg Normal 26.0-34.0 [facility] Comment on above: Performed By: #### P T, CMP3, TROPN, HEMDF, MDIFF #### [address] [place] MCHC (RBC) [Mass/Vol] 33.0 % Normal 32.0-36.0 [facility] Comment on above: Performed By: #### P T, CMP3, TROPN, HEMDF, MDIFF #### [address] [place] MCV (RBC) [Entitic vol] 86.0 fL Normal 79.0-98.0 [facility] Comment on above: Performed By: #### P T, CMP3, TROPN, HEMDF, MDIFF #### [address] [place] Platelet mean volume (Bld) [Entitic vol] 8.1 fL Normal 7.4-10.4 [facility] Comment on above: Performed By: #### P T, CMP3, TROPN, HEMDF, MDIFF #### [address] [place] Platelets (Bld) [#/Vol] 390 10*3/uL Normal 140-440 [facility] Comment on above: Performed By: #### P T, CMP3, TROPN, HEMDF, MDIFF #### [address] [place] RBC (Bld) [#/Vol] 2.79 10*6/uL Low 3.80-5.20 [facility] Comment on above: Performed By: #### P T, CMP3, TROPN, HEMDF, MDIFF #### [address] [place] WBC (Bld) [#/Vol] 12.5 10*3/uL High 3.6-10.7 [facility] Comment on above: Performed By: #### P T, CMP3, TROPN, HEMYESY, MDIFF #### [address] [place] Manual Diffon 08-01-2018 Abs Baso Cnt 0.0 10*3/uL Normal 0.0-0.2 [facility] Comment on above: Performed By: #### P T, CMP3, TROPN, HEMDF, MDIFF #### [address] [place] Abs Eosin Cnt 0.0 10*3/uL Normal 0.0-0.5 [facility] Comment on above: Performed By: #### P T, CMP3, TROPN, HEMDF, MDIFF #### [address] [place] Abs Lymph Cnt 0.8 10*3/uL Low 1.1-4.5 [facility] Comment on above: Performed By: #### P T, CMP3, TROPN, HEMDF, MDIFF #### [address] [place] Abs Monocyte Cnt 0.2 10*3/uL Normal 0.2-1.1 [facility] Comment on above: Performed By: #### P T, CMP3, TROPN, HEMDF, MDIFF #### [address] [place] Abs Neutrophile Cnt 11.5 10*3/uL High 2.2-8.2 [facility] Comment on above: Performed By: #### P T, CMP3, TROPN, HEMDF, MDIFF #### [address] [place] Anisocytosis Ql (Bld) Slight Normal [facility] Comment on above: Performed By: #### P T, CMP3, TROPN, HEMDF, MDIFF #### [address] [address] [place], [place] Bands 0 % Normal 0-3 [facility] Comment on above: Performed By: #### P T, CMP3, TROPN, HEMDF, MDIFF #### [facility] [address] [place], [place] Basophils 0 % Normal 0-2 [facility] Comment on above: Performed By: #### P T, CMP3, TROPN, HEMDF, MDIFF #### [address] [place] Cells counted 100 Normal [facility] Comment on above: Performed By: #### P T, CMP3, TROPN, HEMDF, MDIFF #### [address] [place] Eosinophils 0 % Low 1-6 [facility] Comment on above: Performed By: #### P T, CMP3, TROPN, HEMDF, MDIFF #### [address] [place] Hypochromia Slight Normal [facility] Comment on above: Performed By: #### P T, CMP3, TROPN, HEMDF, MDIFF #### [address] [place] Lymphocytes 6 % Low 20-40 [facility] Comment on above: Performed By: #### P T, CMP3, TROPN, HEMDF, MDIFF #### [address] [place] Microcytosis Slight Normal [facility] Comment on above: Performed By: #### P T, CMP3, TROPN, HEMDF, MDIFF #### [address] [place] Monocytes 2 % Normal 2-10 [facility] Comment on above: Performed By: #### P T, CMP3, TROPN, HEMDF, MDIFF #### [address] [place] RBC morphology finding Nom (Bld) ABNORMAL Normal [facility] Comment on above: Performed By: #### P T, CMP3, TROPN, HEMDF, MDIFF #### [address] [place] Seg Neutrophils 92 % High 40-80 [facility] Comment on above: Performed By: #### P T CMP3JABARI HEMDF, MDIFF #### [address] Prothrombin Timeon 9 INR Coag (PPP) [Relative time] 1.0 Normal 0.9-1.1 [facility] Comment on above: Result Comment: Oliver [...] prevent Myocardial Infarction Performed By: #### P T CMP3JABARI HEMDF, MDIFF #### [address] PT Coag (PPP) [Time] 10.4 s Normal 9.0-12.0 [facility] Comment on above: Result Comment: . Performed By: #### P T CMP3JABARI HEMDF, MDIFF #### [address] Troponin Ion 08-01-2018 Troponin I.cardiac [Mass/Vol] 0.016 ng/mL Normal 0.000-0.034 [facility] Comment on above: Result Comment: 0.04 6 - 0.400 = Indeterminate > 0.400 = Consider Myocardial Injury Performed By: #### P T, CMP3JABARI HEMDF, MDIFF #### [address] CR Chest Portableon 08-01-19 19 CR Chest Portable Patient Name: XAVIER RAHMAN Diagnostic Radiology Exam Date/Time 07/31/2018 13:36:32 EDT Exam CR Chest Portable Ordering Physician MD SUSANNE, JENNY Accession Number [id number] CPT4 Codes 46259 () Reason For Exam Left chest tube [...] Transcribed Date and Time: 07/31/2018 2:29 Normal [facility] CR Chest Portable Patient Name: XAVIER RAHMAN Diagnostic Radiology Exam Date/Time 07/31/2018 11:44:12 EDT Exam CR Chest Portable Ordering Physician [id number] RED Accession Number [id number] CPT4 Codes 88531 () Reason For Exam hemothorax Report Examination: [...] Transcribed Date and Time: 07/31/2018 1:02 Normal [facility] Hemogramon 07-31-2018 Erythrocyte distribution width (RBC) [Ratio] 14.9 % High 11.5-14.5 [facility] Comment on above: Performed By: #### H EMOG #### [facility] [address] [place] [address] Hematocrit (Bld) [Volume fraction] 23.1 % Low 35.0-47.0 [facility] Comment on above: Performed By: #### H EMOG #### [facility] [address] [place] [address] Hemoglobin (Bld) [Mass/Vol] 7.7 g/dL Low 11.7-16.0 [facility] Comment on above: Performed By: #### H EMOG #### [address] [place] [address] MCH (RBC) [Entitic mass] 28.1 pg Normal 26.0-34.0 [facility] Comment on above: Performed By: #### H EMOG #### [address] [place] MCHC (RBC) [Mass/Vol] 33.3 % Normal 32.0-36.0 [facility] Comment on above: Performed By: #### H EMOG #### [address] [place] MCV (RBC) [Entitic vol] 84.6 fL Normal 79.0-98.0 [facility] Comment on above: Performed By: #### H EMOG #### [facility] [address] [place], [place] Platelet mean volume (Bld) [Entitic vol] 7.9 fL Normal 7.4-10.4 [facility] Comment on above: Performed By: #### H EMOG #### [facility] [address] [place] [address] Platelets (Bld) [#/Vol] 372 10*3/uL Normal 140-440 [facility] Comment on above: Performed By: #### H EMOG #### [address] [place] [address] RBC (Bld) [#/Vol] 2.73 10*6/uL Low 3.80-5.20 [facility] Comment on above: Performed By: #### H EMOG #### [facility] [address] [place] [address] WBC (Bld) [#/Vol] 12.1 10*3/uL High 3.6-10.7 [facility] Comment on above: Performed By: #### H EMOG #### [facility] [address] [place] [address] Dermatopathologyon Dermatopathology 52 Pathologist: DEYA SALINAS, CONGate of Procedure: 03/14/2017Date Received: 03/15/2017Date Reported 03/16/2017Submitting Physician: MICKY TERAN MDLocation: ADERM FINAL DIAGNOSISSKIN, LEFT UPPER PARIETAL, SHAVE BIOPSY:INFLAMED BENIGN KERATOSIS, PRESENT ON THE DEEP AND PERIPHERAL MARGIN. Electronically Signed Out by DEYA SALINAS M.D. Electronically SignedOut By DEYA SALINAS MD/[facility] Microscopic Description:Microscopic analysis shows a proliferation of bland keratinocytes withhyperkeratosis, acanthosis, and minimal cytologic atypia.Clinical History:R/O SCC vs. inflamed Dejon. Ker. Shave Biopsy. ([facility]) Specimens Submitted As:A: SKIN, LEFT UPPER PARIETAL Gross Description:Received in formalin is a rodriguez piece of skin measuring [id number]. The specimen isinked and embedded in toto.ink/03/15/2017 Normal [facility] Comment on above: Performed By: #### D ####Dermatopathology Vital Signs Date Time Vital Sign Value Performing Clinician Facility 12-07-2024 12:56-0400 Body height 160.[address] Jose Hdz MD Work Phone: [facility] 12-07-2024 12:56-0400 Body mass index (BMI) [Ratio] 22.3 kg/m2 Dr. Jose Hdz MD Work Phone: [facility] 12-07-2024 12:56-0400 Body weight 57.[address] Jose Hdz MD Work Phone: [facility] 12-07-2024 12:56-0400 Diastolic blood pressure 66 mm[Hg] Dr. Jose Hdz MD Work Phone: 5(293)541-429847 [place] [address] 12-07-2024 12:56-0400 Heart rate 71 /min Dr. Jose Hdz MD Work Phone: 9(789)947-290747 [place] [address] 12-07-2024 12:56-0400 Respiratory rate 18 /min Dr. Jose Hdz MD Work Phone: 9(224)311-226847 [place] [address] 12-07-2024 12:56-0400 Systolic blood pressure 157 mm[Hg] Dr. Jose Hdz MD Work Phone: 1(902)036-571847 [place] [address] 11-07-2024 20:23-0400 Body temperature 97.9 [degF] Dr. Jose Hdz MD Work Phone: 3(214)409-991347 [place] [address] 11-07-2024 20:23-0400 Diastolic blood pressure 67 mm[Hg] Dr. Jose Hdz MD Work Phone: 3(010)720-964447 [place] [address] 11-07-2024 20:23-0400 Heart rate 73 /min Dr. Jose Hdz MD Work Phone: 3(441)157-601647 [place] [address] 11-07-2024 20:23-0400 Respiratory rate 18 /min Dr. Jose Hdz MD Work Phone: 9(190)631-871914 [place] [address] 11-07-2024 20:23-0400 SaO2% (BldA) [Mass fraction] 96 % Dr. Jose Hdz MD Work Phone: 5(742)194-826095 [address] 11-07-2024 20:23-0400 Systolic blood pressure 123 mm[Hg] Dr. Jose Hdz MD Work Phone: 0(475)911-550314 [place] [address] 11-07-2024 15:52-0400 Inhaled oxygen flow rate 100 L/min Dr. Jose Hdz MD Work Phone: 8(773)677-295914 [place] [address] 11-07-2024 15:12-0400 Body height 160.[address] Jose Hdz MD Work Phone: [facility] 11-07-2024 15:12-0400 Body mass index (BMI) [Ratio] 22.3 kg/m2 Dr. Jose Hdz MD Work Phone: 1(566)709-817514 [place] [address] 11-07-2024 15:12-0400 Body weight 57.[address] Jose Hdz MD Work Phone: 7(815)366-017247 [place] [address] 10-24-2024 09:00-0400 Body temperature 98.1 [degF] Dr. Jose Hdz MD Work Phone: 3(681)653-902347 [place] [address] 10-24-2024 09:00-0400 Diastolic blood pressure 62 mm[Hg] Dr. Jose Hdz MD Work Phone: 4(627)764-493995 [address] 10-24-2024 09:00-0400 Heart rate 61 /min Dr. Jose Hdz MD Work Phone: 5(329)214-487447 [place] [address] 10-24-2024 09:00-0400 Respiratory rate 18 /min Dr. Jose Hdz MD Work Phone: 0(072)395-695795 [address] 10-24-2024 09:00-0400 SaO2% (BldA) [Mass fraction] 97 % Dr. Jose Hdz MD Work Phone: 7(784)930-559795 [address] 10-24-2024 09:00-0400 Systolic blood pressure 135 mm[Hg] Dr. Jose Hdz MD Work Phone: 3(815)071-968014 [place] [address] 10-24-2024 05:21-0400 Body mass index (BMI) [Ratio] 22.6 kg/m2 Dr. Jose Hdz MD Work Phone: 2(231)934-385495 [address] 10-24-2024 05:21-0400 Body weight 58.[address] Jose Hdz MD Work Phone: 4(433)337-239195 [address] 10-23-2024 10:32-0400 Body height 160.[address] Jose Hdz MD Work Phone: 8(562)892-590095 [address] 10-22-2024 13:42-0400 Inhaled oxygen concentration 99 % Dr. Jose Hdz MD Work Phone: 8(426)117-427314 [place] [address] 10-22-2024 13:42-0400 Inhaled oxygen flow rate 2 L/min Dr. Jose Hdz MD Work Phone: 2(130)983-423547 [place] [address] 10-17-2024 00:00-0400 Diastolic blood pressure 50 mm[Hg] Dr. Jose Hdz MD Work Phone: 4(342)941-446547 [place] [address] 10-17-2024 00:00-0400 Heart rate 69 /min Dr. Jose Hdz MD Work Phone: 2(817)522-022847 [place] [address] 10-17-2024 00:00-0400 Respiratory rate 18 /min Dr. Jose Hdz MD Work Phone: 3(976)209-273247 [place] [address] 10-17-2024 00:00-0400 SaO2% (BldA) [Mass fraction] 97 % Dr. Jose Hdz MD Work Phone: 2(151)899-830847 [place] [address] 10-17-2024 00:00-0400 Systolic blood pressure 130 mm[Hg] Dr. Jose Hdz MD Work Phone: 6(302)217-430747 [place] [address] 10-16-2024 22:55-0400 Body temperature 97.6 [degF] Dr. Jose Hdz MD Work Phone: 0(751)685-775347 [place] [address] 10-16-2024 22:03-0400 Body mass index (BMI) [Ratio] 23.7 kg/m2 Dr. Jose Hdz MD Work Phone: 4(096)913-074147 [place] [address] 10-16-2024 22:03-0400 Body weight 60.[address] Jose Hdz MD Work Phone: 7(658)632-134347 [place] [address] 10-16-2024 19:21-0400 Body height 160.[address] Jose Hdz MD Work Phone: 6(437)489-749947 [place] [address] 10-15-2024 20:10-0400 Body height 160.[address] Jose Hdz MD Work Phone: 7(745)221-224747 [place] [address] 10-15-2024 20:10-0400 Body mass index (BMI) [Ratio] 23 kg/m2 Dr. Jose Hdz MD Work Phone: 2(448)109-099547 [place] [address] 10-15-2024 20:10-0400 Body temperature 98.2 [degF] Dr. Jose Hdz MD Work Phone: 7(203)945-465647 [place] [address] 10-15-2024 20:10-0400 Body weight 58.[address] Jose Hdz MD Work Phone: 1(828)361-600347 [place] [address] 10-15-2024 20:10-0400 Diastolic blood pressure 62 mm[Hg] Dr. Jose Hdz MD Work Phone: 8(021)073-772247 [place] [address] 10-15-2024 20:10-0400 Heart rate 94 /min Dr. Jose Hdz MD Work Phone: 1(645)584-390847 [place] [address] 10-15-2024 20:10-0400 Respiratory rate 16 /min Dr. Jose Hdz MD Work Phone: 5(983)786-596047 [place] [address] 10-15-2024 20:10-0400 SaO2% (BldA) [Mass fraction] 98 % Dr. Jose Hdz MD Work Phone: 5(596)530-576347 [place] [address] 10-15-2024 20:10-0400 Systolic blood pressure 159 mm[Hg] Dr. Jose Hdz MD Work Phone: 2(187)346-646847 [place] [address] 07-17-2024 09:27-0400 Body temperature 97.7 [degF] Dr. Jose Hdz MD Work Phone: 2(743)712-394647 [place] [address] 07-17-2024 09:27-0400 Diastolic blood pressure 93 mm[Hg] Dr. Jose Hdz MD Work Phone: 5(086)396-756547 [place] [address] 07-17-2024 09:27-0400 Heart rate 58 /min Dr. Jose Hdz MD Work Phone: 6(463)351-985147 [place] [address] 07-17-2024 09:27-0400 Respiratory rate 18 /min Dr. Jose Hdz MD Work Phone: 0(013)028-153747 [place] [address] 07-17-2024 09:27-0400 SaO2% (BldA) [Mass fraction] 96 % Dr. Jose Hdz MD Work Phone: [facility] 07-17-2024 09:27-0400 Systolic blood pressure 161 mm[Hg] Dr. Jose Hdz MD Work Phone: 8(646)645-524314 [place] [address] 07-15-2024 18:56-0400 Body height 160.[address] Jose Hdz MD Work Phone: 2(104)802-415947 [place] [address] 07-15-2024 18:56-0400 Body mass index (BMI) [Ratio] 23.2 kg/m2 Dr. Jose Hdz MD Work Phone: 5(176)704-607495 [address] 07-15-2024 18:56-0400 Body weight 59.[address] Jose Hdz MD Work Phone: 3(799)004-762147 [place] [address] 07-15-2024 17:15-0400 Diastolic blood pressure 89 mm[Hg] Dr. Jose Hdz MD Work Phone: 9(292)145-385247 [place] [address] 07-15-2024 17:15-0400 Heart rate 67 /min Dr. Jose Hdz MD Work Phone: 7(716)041-025747 [place] [address] 07-15-2024 17:15-0400 Respiratory rate 22 /min Dr. Jose Hdz MD Work Phone: 4(923)648-888947 [place] [address] 07-15-2024 17:15-0400 SaO2% (BldA) [Mass fraction] 95 % Dr. Jose Hdz MD Work Phone: 4(818)045-051095 [address] 07-15-2024 17:15-0400 Systolic blood pressure 179 mm[Hg] Dr. Jose Hdz MD Work Phone: 5(368)470-615914 [place] [address] 07-15-2024 17:00-0400 Body temperature 98.2 [degF] Dr. Jose Hdz MD Work Phone: 2(169)870-773247 [place] [address] 07-15-2024 14:54-0400 Body height 160.[address] Jose Hdz MD Work Phone: 6(135)146-761295 [address] 07-15-2024 14:54-0400 Body mass index (BMI) [Ratio] 23.6 kg/m2 Dr. Jose Hdz MD Work Phone: [facility] 07-15-2024 14:54-0400 Body weight 60.[address] Jose Hdz MD Work Phone: [facility] 03-25-2024 13:09-0500 Body temperature 98.6 [degF] Dr. Jose Hdz MD Work Phone: 1(166)563-128014 [place] [address] 03-25-2024 13:09-0500 Diastolic blood pressure 59 mm[Hg] Dr. Jose Hdz MD Work Phone: 7(143)173-208614 [place] [address] 03-25-2024 13:09-0500 Heart rate 78 /min Dr. Jose Hdz MD Work Phone: 7(985)676-877095 [address] 03-25-2024 13:09-0500 Respiratory rate 18 /min Dr. Jose Hdz MD Work Phone: 7(520)305-175895 [address] 03-25-2024 13:09-0500 SaO2% (BldA) [Mass fraction] 99 % Dr. Jose Hdz MD Work Phone: [facility] 03-25-2024 13:09-0500 Systolic blood pressure 130 mm[Hg] Dr. Jose Hdz MD Work Phone: 8(412)485-505895 [address] 03-25-2024 06:00-0500 Body mass index (BMI) [Ratio] 21.6 kg/m2 Dr. Jose Hdz MD Work Phone: 9(109)044-648314 [place] [address] 03-25-2024 06:00-0500 Body weight 55.[address] Jose Hdz MD Work Phone: [facility] 03-18-2024 10:10-0500 Body temperature 97.8 [degF] Dr. Jose Hdz MD Work Phone: [facility] 03-18-2024 10:10-0500 Diastolic blood pressure 58 mm[Hg] Dr. Jose Hdz MD Work Phone: [facility] 03-18-2024 10:10-0500 Heart rate 76 /min Dr. Jose Hdz MD Work Phone: [facility] 03-18-2024 10:10-0500 Respiratory rate 16 /min Dr. Jose Hdz MD Work Phone: [facility] 03-18-2024 10:10-0500 SaO2% (BldA) [Mass fraction] 98 % Dr. Jose Hdz MD Work Phone: 7(183)781-260514 [place] [address] 03-18-2024 10:10-0500 Systolic blood pressure 106 mm[Hg] Dr. Jose Hdz MD Work Phone: 2(137)090-944914 [place] [address] 03-18-2024 08:35-0500 Body mass index (BMI) [Ratio] 21.6 kg/m2 Dr. Jose Hdz MD Work Phone: 4(159)542-509014 [place] [address] 03-18-2024 08:35-0500 Body weight 55.[address] Jose Hdz MD Work Phone: 3(686)866-467814 [place] [address] 08-20-2023 10:02-0400 Body height 160.[address] Jose Hdz Work Phone: 1(724)765-937014 [place] [address] 08-20-2023 10:02-0400 Body mass index (BMI) [Ratio] 21.9 kg/m2 Dr. Jose Hdz Work Phone: 6(326)909-749595 [address] 08-20-2023 10:02-0400 Body temperature 96.2 [degF] Dr. Jose Hdz Work Phone: 1(678)738-360214 [place] [address] 08-20-2023 10:02-0400 Body weight 56.[address] Jose Hdz Work Phone: [facility] 08-20-2023 10:02-0400 Diastolic blood pressure 89 mm[Hg] Dr. Jose Hdz Work Phone: 3(909)229-512214 [place] [address] 08-20-2023 10:02-0400 Heart rate 81 /min Dr. Jose Hdz Work Phone: 6(656)207-567114 [place] [address] 08-20-2023 10:02-0400 Respiratory rate 16 /min Dr. Jose Hdz Work Phone: 3(985)719-347914 [place] [address] 08-20-2023 10:02-0400 SaO2% (BldA) [Mass fraction] 97 % Dr. Jose Hdz Work Phone: [facility] 08-20-2023 10:02-0400 Systolic blood pressure 189 mm[Hg] Dr. Jose Hdz Work Phone: [facility] 07-24-2023 13:21-0400 Body temperature 97.6 [degF] Dr. Jose Hdz Work Phone: [facility] 07-24-2023 13:21-0400 Diastolic blood pressure 61 mm[Hg] Dr. Jose Hdz Work Phone: [facility] 07-24-2023 13:21-0400 Heart rate 78 /min Dr. Jose Hdz Work Phone: [facility] 07-24-2023 13:21-0400 Respiratory rate 16 /min Dr. Jose Hdz Work Phone: [facility] 07-24-2023 13:21-0400 SaO2% (BldA) [Mass fraction] 99 % Dr. Jose Hdz Work Phone: [facility] 07-24-2023 13:21-0400 Systolic blood pressure 146 mm[Hg] Dr. Jose Hdz Work Phone: [facility] 07-24-2023 12:22-0400 Body height 160.[address] Jose Hdz Work Phone: [facility] 07-24-2023 12:22-0400 Body mass index (BMI) [Ratio] 23 kg/m2 Dr. Jose Hdz Work Phone: [facility] 07-24-2023 12:22-0400 Body weight [address] Jose Hdz Work Phone: [facility] 06-28-2023 14:30-0400 Body temperature 97.2 [degF] Dr. Jose Hdz Work Phone: [facility] 06-28-2023 14:30-0400 Diastolic blood pressure 72 mm[Hg] Dr. Jose Hdz Work Phone: [facility] 06-28-2023 14:30-0400 Heart rate 78 /min Dr. Jose Hdz Work Phone: [facility] 06-28-2023 14:30-0400 Respiratory rate 14 /min Dr. Jose Hdz Work Phone: [facility] 06-28-2023 14:30-0400 SaO2% (BldA) [Mass fraction] 96 % Dr. Jose Hdz Work Phone: [facility] 06-28-2023 14:30-0400 Systolic blood pressure 137 mm[Hg] Dr. Jose Hdz Work Phone: [facility] 06-28-2023 00:01-0400 Body mass index (BMI) [Ratio] 23.1 kg/m2 Dr. Jose Hdz Work Phone: [facility] 06-28-2023 00:01-0400 Body weight 59.[address] Jose Hdz Work Phone: [facility] 06-27-2023 10:01-0400 Body height 160.[address] Jose Hdz Work Phone: [facility] 06-27-2023 03:30-0400 Inhaled oxygen flow rate 2 L/min Dr. Jose dHz Work Phone: [facility] 06-26-2023 20:53-0400 Body temperature 97.1 [degF] Dr. Jose Hdz Work Phone: [facility] 06-26-2023 20:53-0400 Diastolic blood pressure 73 mm[Hg] Dr. Jose Hdz Work Phone: [facility] 06-26-2023 20:53-0400 Heart rate 88 /min Dr. Jose Hdz Work Phone: [facility] 06-26-2023 20:53-0400 Respiratory rate 19 /min Dr. Jose Hdz Work Phone: [facility] 06-26-2023 20:53-0400 SaO2% (BldA) [Mass fraction] 93 % Dr. Jose Hdz Work Phone: [facility] 06-26-2023 20:53-0400 Systolic blood pressure 170 mm[Hg] Dr. Jose Hdz Work Phone: [facility] 06-26-2023 16:25-0400 Body height 160.[address] Jose Hdz Work Phone: [facility] 06-26-2023 16:25-0400 Body mass index (BMI) [Ratio] 24.7 kg/m2 Dr. Jose Hdz Work Phone: [facility] 06-26-2023 16:25-0400 Body weight 63.[address] Jose Hdz Work Phone: [facility] 06-26-2023 09:37-0400 Body temperature 97.8 [degF] Dr. Jose Hdz Work Phone: [facility] 06-26-2023 09:37-0400 Diastolic blood pressure 56 mm[Hg] Dr. Jose Hdz Work Phone: [facility] 06-26-2023 09:37-0400 Heart rate 77 /min Dr. Jose Hdz Work Phone: [facility] 06-26-2023 09:37-0400 Respiratory rate 18 /min Dr. Jose Hdz Work Phone: [facility] 06-26-2023 09:37-0400 SaO2% (BldA) [Mass fraction] 98 % Dr. Jose Hdz Work Phone: [facility] 06-26-2023 09:37-0400 Systolic blood pressure 144 mm[Hg] Dr. Jose Hdz Work Phone: [facility] 06-26-2023 06:37-0400 Body height 160.[address] Jose Hdz Work Phone: [facility]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 (3 - Td or Tdap) [facility] Start: 11-07-2024 [facility] Start: 11-07-2024 [facility] Start: 11-07-2024 End: 11-07-2024 [facility] Start: 10-24-2024 Patient discharge [facility] Start: 10-24-2024 Referral to service [place] Start: 10-21-2024 [facility] Start: 10-20-2024 End: 10-20-2024 [facility] Start: 10-18-2024 Administration of bl ood product [facility] Start: 10-18-2024 Referral to occupati onal therapist [facility] Start: 10-17-2024 Application of intermittent pneumatic compression device [facility] Start: 10-17-2024 Following clinical p athway protocol [facility] Start: 10-17-2024 Aspiration precautions [facility] Start: 10-17-2024 Assessment of risk o f venous thromboembolism [facility] Start: 10-17-2024 Documentation procedure [facility] Start: 10-17-2024 Elevation of head of bed [facility] Start: 10-17-2024 Insertion of cathete r into peripheral vein [facility] Start: 10-17-2024 Measuring intake and output [facility] Start: 10-17-2024 Providing care accor ding to standard [facility] Start: 10-17-2024 Provision of activit y privileges [facility] Start: 10-17-2024 Referral to gastroenterology service [facility] Start: 10-17-2024 Referral to service [place] Start: 10-17-2024 Vital signs measurements [facility] Start: 10-17-2024 [facility] Start: 10-17-2024 Admission procedure [place] Start: 10-17-2024 Verification routine [facility] Start: 10-16-2024 Hospital admission, emergency, from emergency room, medical nature [facility] Start: 10-16-2024 Administration of bl ood product [facility] Start: 10-16-2024 Leukocyte reduced re d blood cells [facility] Start: 10-16-2024 End: 10-17-2024 [facility] Start: 10-15-2024 Emergency department visit limited/minor prob EMR DPT VST MAYX REQ PHY/QHP [facility] Start: 07-17-2024 Patient discharge [facility] Start: 07-15-2024 Application of intermittent pneumatic compression device [facility] Start: 07-15-2024 Following clinical p athway protocol [facility] Start: 07-15-2024 Assessment of risk o f venous thromboembolism [facility] Start: 07-15-2024 Inhalation therapy procedure [facility] Start: 07-15-2024 Insertion of cathete r into peripheral vein [facility] Start: 07-15-2024 Measuring intake and output [facility] Start: 07-15-2024 Providing care accor ding to standard [facility] Start: 07-15-2024 Provision of activit y privileges [facility] Start: 07-15-2024 Referral to gastroenterology service [facility] Start: 07-15-2024 [facility] Start: 07-15-2024 Admission procedure [place] Start: 07-15-2024 Verification routine [facility] Start: 07-15-2024 Hospital admission, emergency, from emergency room, medical nature [facility] Start: 07-15-2024 [facility] Start: 07-15-2024 Leukocyte reduced re d blood cells [facility] Start: 07-15-2024 [facility] Start: 07-15-2024 [facility] Start: 03-25-2024 Patient discharge [facility] Start: 03-24-2024 Care planning and pr oblem solving actions [facility] Start: 03-23-2024 Referral to occupati onal therapist [facility] Start: 03-23-2024 Referral to service [place] Start: 03-23-2024 Speech therapy assessment [facility] Start: 03-22-2024 Referral to gastroenterology service [facility] Start: 03-22-2024 Administration of bl ood product [facility] Start: 03-22-2024 Administration of bl ood product [facility] Start: 03-21-2024 End: 03-22-2024 [facility] Start: 03-21-2024 Application of intermittent pneumatic compression device [facility] Start: 03-21-2024 Following clinical p athway protocol [facility] Start: 03-21-2024 Aspiration precautions [facility] Start: 03-21-2024 Assessment of risk o f venous thromboembolism [facility] Start: 03-21-2024 Bedrest [facility] Start: 03-21-2024 Documentation procedure [facility] Start: 03-21-2024 Elevation of head of bed [facility] Start: 03-21-2024 Insertion of cathete r into peripheral vein [facility] Start: 03-21-2024 Measuring intake and output [facility] Start: 03-21-2024 Providing care accor ding to standard [facility] Start: 03-21-2024 Referral to service [place] Start: 03-21-2024 Vital signs measurements [facility] Start: 03-21-2024 Admission procedure [place] Start: 03-21-2024 Administration of bl ood product [facility] Start: 03-21-2024 Patient referral to dietitian [facility] Start: 03-18-2024 Emergency department visit moderate severity EMERGENCY DEPT VISIT LOW MDM [facility] Start: 03-18-2024 [facility] Start: 12-18-2023 Influenza vaccination Influenz a Vaccine (#1) [facility] Start: 08-20-2023 [facility] Start: 07-24-2023 [facility] Start: 07-05-2023 Diagnostic radiograp hy of abdomen Abdomen Single View [facility] Start: 07-05-2023 XR Abdomen Single view [facility] Start: 07-05-2023 Blood chemistry [facility] Start: 07-04-2023 Blood chemistry [facility] Start: 07-03-2023 Blood chemistry [facility] Start: 07-02-2023 Blood chemistry [facility] Start: 07-01-2023 Blood chemistry [facility] Start: 06-30-2023 Blood chemistry [facility] Start: 06-29-2023 Blood chemistry [facility] Start: 06-28-2023 Patient discharge [facility] Start: 06-27-2023 [facility] Start: 06-26-2023 Following clinical p athway protocol [facility] Start: 06-26-2023 Application of intermittent pneumatic compression device [facility] Start: 06-26-2023 Application of knee immobilizer [facility] Start: 06-26-2023 Assessment of risk o f venous thromboembolism [facility] Start: 06-26-2023 Fall prevention [facility] Start: 06-26-2023 Incentive spirometry [facility] Start: 06-26-2023 Inhalation therapy procedure [facility] Start: 06-26-2023 Insertion of cathete r into peripheral vein [facility] Start: 06-26-2023 Introduction of urin tamar catheter [facility] Start: 06-26-2023 Measuring intake and output [facility] Start: 06-26-2023 Oxygen therapy [facility] Start: 06-26-2023 Providing care accor ding to standard [facility] Start: 06-26-2023 Provision of activit y privileges [facility] Start: 06-26-2023 Referral to occupati onal therapist [facility] Start: 06-26-2023 Referral to service [place] Start: 06-26-2023 [facility] Start: 06-26-2023 Urinalysis complete panel - Urine [facility] Start: 06-26-2023 Verification routine [facility] Start: 06-26-2023 Admission procedure [place] Start: 06-26-2023 Noninvasive ear/puls e oximetry single deter MEASURE BLOOD OXYGEN LEVEL [facility] Start: 06-26-2023 Simple repair scalp/neck/ax/genit/trunk 2.5cm/< RPR S/N/AX/GEN/TRNK 2.5CM/< [facility] Start: 06-26-2023 US.doppler Lower ext remity vein [facility] Start: 06-26-2023 [facility] Start: 06-26-2023 [facility] Start: 06-26-2023 Patient referral to dietitian [facility] Start: 06-11-2023 [facility] Start: 06-11-2023 [facility] Start: 04-28-2023 [facility] Start: 04-18-2023 Advance Directive Discussion Advance Directive Discussion [facility] Start: 04-02-2023 [facility] Start: 04-02-2023 Oxygen therapy [facility] Start: 04-02-2023 [facility] Start: 12-17-2022 Covid-19 Vaccine ( season) Covid-19 Vaccine () [facility] Start: 12-17-2022 Influenza vaccination INFLUENZA (#1) [facility] Start: 11-08-2022 Patient discharge [facility] Start: 10-18-2022 Patient discharge [facility] Start: 10-18-2022 [facility] Start: 10-17-2022 [facility] Start: 10-17-2022 Following clinical p athway protocol [facility] Start: 10-17-2022 Aspiration precautions [facility] Start: 10-17-2022 Assessment of risk o f venous thromboembolism [facility] Start: 10-17-2022 Cardiac monitoring [facility] Start: 10-17-2022 Catheterization of vein [facility] Start: 10-17-2022 Continuous pulse oximetry [facility] Start: 10-17-2022 Elevation of head of bed [facility] Start: 10-17-2022 Exercises [facility] Start: 10-17-2022 Fall prevention [facility] Start: 10-17-[address] anned interventions [facility] Start: 10-17-2022 Incentive spirometry [facility] Start: 10-17-2022 Insertion of cathete r into peripheral vein [facility] Start: 10-17-2022 Introduction of urin tamar catheter [facility] Start: 10-17-2022 Measuring intake and output [facility] Start: 10-17-2022 Notification of physician [facility] Start: 10-17-2022 Oxygen therapy [facility] Start: 10-17-2022 Patient referral to dietitian [facility] Start: 10-17-2022 Providing care accor ding to standard [facility] Start: 10-17-2022 Provision of activit y privileges [facility] Start: 10-17-2022 Referral to occupati onal therapist [facility] Start: 10-17-2022 Referral to service [place] Start: 10-17-2022 Speech therapy assessment [facility] Start: 10-17-2022 Tobacco use cessatio n education [facility] Start: 10-17-2022 [facility] Start: 10-17-2022 Verification routine [facility] Start: 10-17-2022 Admission procedure [place] Start: 10-17-2022 Patient referral to dietitian [facility] Start: 10-16-2022 Oxygen therapy [facility] Start: 10-16-2022 [facility] Start: 10-12-2022 Oxygen therapy [facility] Start: 10-12-2022 [facility] Start: 06-15-2022 Patient discharge [facility] Start: 06-15-2022 Physiotherapy of chest [facility] Start: 06-13-2022 Following clinical p athway protocol [facility] Start: 06-13-2022 Aspiration precautions [facility] Start: 06-13-2022 Assessment of risk o f venous thromboembolism [facility] Start: 06-13-2022 Bacteria identified in Sputum by Culture [facility] Start: 06-13-2022 Cardiac monitoring [facility] Start: 06-13-2022 Catheterization of vein [facility] Start: 06-13-2022 Continuous pulse oximetry [facility] Start: 06-13-2022 Elevation of head of bed [facility] Start: 06-13-2022 Exercises [facility] Start: 06-13-2022 Fall prevention [facility] Start: 06-13-[address] anned interventions [facility] Start: 06-13-2022 Inhalation therapy procedure [facility] Start: 06-13-2022 Insertion of cathete r into peripheral vein [facility] Start: 06-13-2022 Introduction of urin tamar catheter [facility] Start: 06-13-2022 Measuring intake and output [facility] Start: 06-13-2022 Notification of physician [facility] Start: 06-13-2022 Oxygen therapy [facility] Start: 06-13-2022 Patient referral to dietitian [facility] Start: 06-13-2022 Providing care accor ding to standard [facility] Start: 06-13-2022 Provision of activit y privileges [facility] Start: 06-13-2022 Referral to occupati onal therapist [facility] Start: 06-13-2022 Referral to service [place] Start: 06-13-2022 Speech therapy assessment [facility] Start: 06-13-2022 Tobacco use cessatio n education [facility] Start: 06-13-2022 [facility] Start: 06-13-2022 Verification routine [facility] Start: 06-13-2022 Admission procedure [place] Start: 06-13-2022 Patient referral to dietitian [facility] Start: 05-06-2022 COVID-19 VACCINE (6 - Moderna series) COVID-19 VACCINE (6 - Moderna series) [facility] Start: 04-18-2022 ADVANCE DIRECTIVE DISCUSSION ADVANCE DIRECTIVE DISCUSSION [facility] Start: 04-18-2022 DEPRESSION ASSESSMENT DEPRESSION ASS ESSMENT [facility] Start: 08-16-2021 Diabetes Screening Diabetes Screenin g [facility] Start: 2005 BONE DENSITY BONE DENSITY [facility] Start: 2005 PNEUMOCOCCAL: 65+ (1 - PCV) PNEUMOCOCCAL: 65+ (1 - PCV) [facility] Start: 2005 Screening for osteoporosis Bon e Density Screening [facility] Start: 2000 RSV Vaccine (1 - 1-d ose 60+ series) RSV Vaccine (1 - 1-dose 60+ series) [facility] Start: 1990 SHINGRIX VACCINE (1 of 2) LOPEZ GRIX VACCINE (1 of 2) [facility] Start: 1985 DIABETES SCREEN DIABETES SCREEN [facility] Start: 1959 Urine microalbumin profile DTA P,TDAP,TD (1 - Tdap) [facility] Alanine aminotransfe rase [Enzymatic activity/volume] in Serum or Plasma [facility] Albumin [Mass/volume ] in Serum or Plasma [facility] Alkaline phosphatase [Enzymatic activity/volume] in Serum or Plasma [facility] Anion gap measurement [facility] Aspartate aminotrans ferase [Enzymatic activity/volume] in Serum or Plasma [facility] Bilirubin, total measurement [facility] BUN/Creatinine ratio [facility] Calcium [Mass/volume ] in Serum or Plasma [facility] Carbon dioxide, tota l [Moles/volume] in Serum or Plasma [facility] Cardiac event recording [facility] Cardiovascular funct ion eval w/tilt table w/mntr TILT TABLE EVALUATION Cardiology Routine Syncope, unspecified syncope type Ordered: 10/28/2022 [facility] Work Phone: Comment on above: Ordered: 10/28/2022 Chloride [Moles/volu me] in Serum or Plasma [facility] Creatinine [Moles/vo lume] in Serum or Plasma [facility] Erythrocyte mean corpuscular volume determination [facility] Ferritin [Mass/volum e] in Serum or Plasma [facility] Glucose [Mass/volume ] in Serum or Plasma [facility] Hematocrit [Volume Fraction] of Blood [facility] Hemoglobin [Mass/vol ume] in Blood [facility] Iron [Mass/mass] in Unspecified specimen [facility] Iron saturation [Mas s Fraction] in Serum or Plasma [facility] Lactic acid measurement [facility] Leukocytes [#/volume ] in Blood [facility] Magnesium [Mass/volu me] in Serum or Plasma [facility] Magnesium measurement [facility] Mean corpuscular hemoglobin concentration determination [facility] Mean corpuscular hemoglobin determination [facility] Measurement of renal function [facility] Neutrophil count [facility] Neutrophil percent differential count [facility] Patient Education [facility] Work Phone: Patient referral [facility] Work Phone: Platelets [#/volume] in Blood [facility] Potassium [Moles/vol ume] in Serum or Plasma [facility] Red blood cell count [facility] Red cell distributio n width determination [facility] Replacement of alan watson heart device, pulse generator [facility] Sodium [Moles/volume ] in Serum or Plasma [facility] Total iron binding capacity measurement [facility] Total protein measurement [facility] Urea nitrogen [Mass/volume] in Serum or Plasma [facility] Immunizations Immunization Date Immunization Notes Care Provider Fa cility 06-26-2023 tetanus toxoid, redu maricarmen diphtheria toxoid, and acellular pertussis vaccine, adsorbed Dr. Jose Hdz Work Phone: [facility] 01-04-2022 influenza virus vaccine, unspecified formulation Lila Cobb OT/L [facility] 06-12-2020 Covid (Moderna) [facility] 05-15-2020 Covid (Moderna) [facility] 01-30-2018 Influenza virus vaccine [facility] 11-07-2017 tetanus toxoid, redu maricarmen diphtheria toxoid, and acellular pertussis vaccine, adsorbed [facility] 01-16-2016 Influenza virus vaccine [facility] Payers Date Payer Category Payer Medicaid [id number] 2023 Unknown [id number] 2023 Self-pay [id number] 2022 Medicare [id number] 2015 Medicare [id number] 2014 Medicare [id number] Medicare [id number] Medicare [employer] MEDICARE [id number] Unknown [id number] Unknown [id number] 2.16.8 40.1.108808.3.579.2.462 Unknown [id number] 2.16.8 40.1.332709.3.579.2.462 Unknown [id number] 2.16.8 40.1.341703.3.579.2.462 Unknown [id number] 2.16.8 40.1.069028.3.579.2.462 Unknown [id number] 2.16.8 40.1.223981.3.579.2.462 Unknown [id number] 2.16.8 40.1.496925.3.579.2.462 Unknown [id number] 2.16.8 40.1.468398.3.579.2.462 Unknown [id number] 2.16.8 40.1.735247.3.579.2.462 Unknown [id number] 2.16.8 40.1.302957.3.579.2.462 Unknown [id number] 2.16.8 40.1.198789.3.579.2.462 Unknown [id number] 2.16.8 40.1.335427.3.579.2.462 Unknown [id number] 2.16.8 40.1.455647.3.579.2.462 Unknown [id number] 2.16.8 40.1.616791.3.579.2.462 Unknown [id number] 2.16.8 40.1.041891.3.579.2.462 Unknown [id number] 2.16.8 40.1.428364.3.579.2.462 Unknown [id number] 2.16.8 40.1.589981.3.579.2.462 Unknown [id number] 2.16.8 40.1.819833.3.579.2.462 Unknown [id number] 2.16.8 40.1.217312.3.579.2.462 Unknown [id number] 2.16.8 40.1.432129.3.579.2.462 Unknown [id number] 2.16.8 40.1.712815.3.579.2.462 Unknown [id number] 2.16.8 40.1.327920.3.579.2.462 Unknown [id number] 2.16.8 40.1.736732.3.579.2.462 Unknown [id number] 2.16.8 40.1.990017.3.579.2.462 Unknown [id number] 2.16.8 40.1.039718.3.579.2.462 Unknown [id number] 2.16.8 40.1.690621.3.579.2.462 Unknown [id number] 2.16.8 40.1.864458.3.579.2.462 Unknown [id number] 2.16.8 40.1.609543.3.579.2.462 Unknown [id number] 2.16.8 40.1.908206.3.579.2.462 Unknown [id number] 2.16.8 40.1.554425.3.579.2.462 Unknown [id number] 2.16.8 40.1.525046.3.579.2.462 Unknown [id number] 2.16.8 40.1.168460.3.579.2.462 Unknown [id number] 2.16.8 40.1.602166.3.579.2.462 Unknown [id number] 2.16.8 40.1.766242.3.579.2.462 Unknown [id number] 2.16.8 40.1.000515.3.579.2.462 Unknown [id number] 2.16.8 40.1.678937.3.579.2.462 Unknown [id number] 2.16.8 40.1.810259.3.579.2.462 Unknown [id number] 2.16.8 40.1.414096.3.579.2.462 Unknown [id number] 2.16.8 40.1.041141.3.579.2.462 Unknown [id number] 2.16.8 40.1.549254.3.579.2.462 Unknown [id number] 2.16.8 40.1.321547.3.579.2.462 Unknown [id number] 2.16.8 40.1.101818.3.579.2.462 Unknown [id number] 2.16.8 40.1.806270.3.579.2.462 Unknown [id number] 2.16.8 40.1.776109.3.579.2.462 Unknown [id number] 2.16.8 40.1.989499.3.579.2.462 Unknown [id number] 2.16.8 40.1.277314.3.579.2.462 Unknown [id number] 2.16.8 40.1.790364.3.579.2.462 Unknown [id number] 2.16.8 40.1.224760.3.579.2.462 Unknown [id number] 2.16.8 40.1.279657.3.579.2.462 Unknown [id number] 2.16.8 40.1.468049.3.579.2.462 Unknown [id number] 2.16.8 40.1.315909.3.579.2.462 Unknown [id number] 2.16.8 40.1.964115.3.579.2.462 Unknown [id number] 2.16.8 40.1.239659.3.579.2.462 Unknown [id number] 2.16.8 40.1.778159.3.579.2.462 Unknown [id number] 2.16.8 40.1.822095.3.579.2.462 Unknown [id number] 2.16.8 40.1.510609.3.579.2.462 Unknown [id number] 2.16.8 40.1.883699.3.579.2.462 Unknown [id number] 2.16.8 40.1.225050.3.579.2.462 Unknown [id number] 2.16.8 40.1.257977.3.579.2.462 Unknown [id number] 2.16.8 40.1.140461.3.579.2.462 Social History Date Type Detail Facility Start: 02-18-2021 End: 04-02-2023 Tobacco smoking status ARIS Unknown if ever smoked [facility] Start: 11-26-2019 None [facility] Start: 11-26-2019 Spouse/ Signif icant Other [facility] Start: 06-30-2018 Non-smoker [facility] Start: 1940 Sex Assigned At Female [facility] Start: 11-14-2014 End: 11-07-2024 Tobacco smoking status NHIS Ex-smoker [facility] End: 11-14-1994 History of tobacco use Current smoker [facility] End: 11-14-1994 History of tobacco use Cigarette Smoker [facility] Start: 11-14-2014 End: 11-14-2023 Cigarettes smoked current (pack per day) - Reported 1 [facility] Start: 02-17-2016 End: 10-28-2022 Alcohol intake Current drinker of alcohol (finding) [facility] Start: 1940 Sex Assigned At Not on file [facility] Start: 10-28-2022 End: 11-14-2023 Tobacco use panel [facility] National Score (1-100), lower number is lower risk 72 [facility] Start: 07-15-2024 End: 07-31-2024 Sex Female (finding) [facility] NEGATED: Highlighted row Not [facility] Medical Equipment Procedure Code Equipment Code Equipment Origin al Text Equipment Identifier Dates [id number] FDA Start: 11-08-2022 [id number] FDA Start: 11-08-2022 [id number] FDA Start: 11-08-2022 [id number] FDA Start: 11-08-2022 [id number] FDA Start: 11-08-2022 [id number] FDA Start: 11-08-2022 [id number] FDA Start: 11-08-2022 [id number] FDA Start: 11-08-2022 [id number] FDA Start: 11-08-2022 [id number] FDA Start: 11-08-2022 [id number] FDA Start: 11-08-2022 [id number] FDA Start: 11-08-2022 [id number] FDA Start: 11-08-2022 [id number] FDA Start: 11-08-2022 [id number] FDA Start: 11-08-2022 [id number] FDA Start: 11-08-2022 [id number] FDA Start: 11-08-2022 [id number] FDA Start: 11-08-2022 [id number] FDA Start: 11-08-2022 [id number] FDA Start: 11-08-2022 [id number] FDA Start: 11-08-2022 [id number] FDA Start: 11-08-2022 [id number] FDA Start: 11-08-2022 [id number] FDA Start: 11-08-2022 [id number] FDA Start: 11-08-2022 [id number] FDA Start: 11-08-2022 [id number] FDA Start: 11-08-2022 [id number] FDA Start: 11-08-2022 [id number] FDA Start: 11-08-2022 [id number] FDA Start: 11-08-2022 Goals Date Patient Goal Desired Activity /State Functional Status Date Assessment Result Facility 10-24-2024 Functional status Ambulates [facility] Work Phone: 07-17-2024 Functional status Bathroom Privilege [facility] Work Phone: 03-25-2024 Functional status Chair [facility] Work Phone: 06-28-2023 Functional status Ambulates;Cecilio r;Bathroom Privilege [facility] Work Phone: 10-18-2022 Functional status Ambulates [facility] Work Phone: 06-15-2022 Functional status Activity Abili ty With Assist of 1 [facility] Work Phone: 06-14-2022 Functional status Ambulates;Bathroom Priv ilege [facility] Work Phone: Mental Status Date Assessment Result Facility 11-07-2024 Cognitive function Voice/Name [facility] Work Phone: 10-23-2024 Cognitive function Appropriate;Cooperativ e [facility] Work Phone: 10-23-2024 Cognitive function Arousable To Voice/Nam e [facility] Work Phone: 07-17-2024 Cognitive function Voice/Name [facility] Work Phone: 03-25-2024 Cognitive function Voice/Name [facility] Work Phone: 06-27-2023 Cognitive function Voice/Name [facility] Work Phone: 06-11-2023 Cognitive function Level Of Cons ciousness Awake;Alert;Appropriate;Follow s Commands [facility] Work Phone: 04-28-2023 Cognitive function Level Of Cons ciousness Awake;Alert [facility] Work Phone: 04-02-2023 Cognitive function Voice/Name [facility] Work Phone: 01-06-2023 Cognitive function Level Of Cons ciousness Awake;Alert;Appropriate;Follow s Commands [facility] Work Phone: 10-18-2022 Cognitive function Appropriate;Cooperativ e [facility] Work Phone: 10-17-2022 Cognitive function Voice/Name [facility] Work Phone: 10-16-2022 Cognitive function Awake;Alert;A ppropriate;Follow s Commands [facility] Work Phone: 10-12-2022 Cognitive function Awake;Alert;A ppropriate;Follow s Commands [facility] Work Phone: 09-07-2022 Cognitive function Level Of Cons ciousness Awake;Alert;Appropriate;Follow s Commands [facility] Work Phone: 06-15-2022 Cognitive function Voice/Name [facility] Work Phone: Clinical Notes 06-13-2022 to 11-07-2024 Note Date & Type Note Facility 11-07-2024 Radiology Diagnostic study note [facility] Imaging Services [address] [place] [address] Chest 1 View (Portable) MR#: [id number] Acct: [id number] Name: XAVIER RAHMAN Rep #: [id number] : 1940 F 84 From: Floyd Ramírez MD PCP: Dr. Jose Hdz MD Status: REG ER Study:Chest 1 View (Portable) Date of Exam: 11/07/24 Exam# [id number] Ordering Dr: Janneth High DO PROCEDURE: CHEST 1 VIEW (PORTABLE) 11/07/2024 REASON FOR EXAM: SHORTNESS OF BREATH TECHNIQUE: Frontal view of the chest. COMPARISON: 07/24/2023 FINDINGS: Lungs/Pleura: Clear. No pneumothorax or sizable pleural effusion. Heart/Mediastinum: Cardiomegaly. Mild vascular congestion. Mildly tortuous andcalcified thoracic aorta. Cardiac loop recorder device projects over the paramedian left chest wall. Bones/Soft tissues: Mild degenerative changes of the spine and AC joints. Tracecalcific tendinosis of the left shoulder rotator cuff. RAD/Chest 1 View (Portable) IMPRESSION: Cardiomegaly with mild vascular congestion. No pleural effusions. Reading Location: [id number] CC: Dr. Jose Hdz MD; Dr. Charlie High DO ~ Filter Washer: Signed [facility] 11-07-2024 Radiology Diagnostic study note [facility] Imaging Services [address] [place] [id number] Brain/Head without Contrast MR#: [id number] Acct: [id number] Name: XAVIER RAHMAN Rep #: [id number] : 1940 F 84 From: Floyd Ramírez MD PCP: Dr. Jose Hdz MD Status: REG ER Study:Brain/Head without Contrast Date of Exa m: 11/07/24 Exam# [id number] Ordering Dr: Janneth High DO PROCEDURE: BRAIN/HEAD WITHOUT CONTRAST 11/07/2024 REASON FOR EXAM: DIZZINESS TECHNIQUE: BRAIN/HEAD WITHOUT CONTRAST Coronal and Sagittal reconstruction series were provided. One or more dose reduction techniques were used (e.g., Automated exposure control, adjustment of the mA and/or kV according to patient size, use of iterative reconstruction technique. RADIATION DOSE SUMMARY: CTDlvol: 44.99 mGy DLP: 846.73 mGycm COMPARISON: 06/26/2023 FINDINGS: No acute intracranial hemorrhage, extra-axial collection, mass effect or evidence of acute infarct. Moderate generalized brain parenchymal volume loss. Moderate-advanced chronic small-vessel ischemic changes with multiple chronic appearing lacunar infarcts within the right basal ganglia, left thalamus, and left gume. Chronic encephalomalacia/gliosis in the right parietal cortex. Prior bilateral cataract surgery. Atherosclerotic vascular calcifications. Skull base and calvarium are intact. Well-aerated paranasal sinuses and bilateral mastoid air cells. CT/Brain/Head without Contrast IMPRESSION: 1. No evidence of acute intracranial pathology. 2. 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 Reading Location: [facility] CC: Dr. Jose Hdz MD; Dr. Charlie High DO ~ Filter Washer: Signed [facility] 10-24-2024 Discharge summary Note Date/Time October 24, 2024 10:55am [facility] Medical Records Department [address] [place] [id number] Discharge Summary 10/23/24 1623 MR#: [id number] Acct: [id number] Name: XAVIER RAHMAN Rep #:[id number] : 1940 84 From: Jose Tillman DO PCP: Dr. Jose Hdz MD Status:ADM IN Location: [place] [address] Providers Date of Admission: 10/17/24 Primary Care Physician: Dr. Jose Hdz MD Consultations 10/17/24 00:58 Consult: Gastroenterology Routine Consulting Provider: [facility] Reason for Consult: GI bleed with ABLA. EMERGENT Consult: No MD Notified: Yes Date Notified: 10/17/24 Time Notified: 00:06 Method of Notification: ED Physician Initiated Reason For Visit: GI BLEED WITH ABLA Diagnosis Discharge Diagnosis (1) Acute anemia: Status: Acute Code(s): D64.9 - Anemia, unspecified Plan: ABLA POA. Hg 6.8 on admssion. now up to 11.3 s/p 3 units PRBCs 2/2 GIB. Monitor. (2) GI bleed: Status: Acute Code(s): K92.2 - Gastrointestinal hemorrhage, unspecified Qualifiers: GI bleed type/associated pathology: unspecified gastrointestinal hemorrhage type Qualified Code(s): K92.2 - Gastrointestinal hemorrhage, unspecified Plan: no clear source on EGD and colonoscopy. Colonoscopy 10/22: 8mm polyp at splenic flexure, removed with cold biopsy forceps.Diverticulosis in the entire examined colon. Rectal prolapse. Suspect that the bleeding was likely due to diverticulosis though no obvious bleeding was noted on the colonoscopy. Plan Chronic conditions: * HTN: losartan, HCTZ, hydralazine, amlodipine * Depression: escitalopram VTE prophylaxis: SCDs Medications at Discharge Home Medications pramipexole 1.5 mg tablet 1.5 mg PO QHS restless legs 10/16/22 valsartan 320 mg-hydrochlorothiazide 25 mg tablet [...] oxalate 5 mg tablet 5 mg PO 1700 depression 07/15/24 aspirin 81 mg capsule 81 mg PO DAILY 30 days #30 caps 07/17/24 Held on 10/23/24. Instructions: Resume on 10/27/24. docusate sodium 100 mg capsule 100 mg PO QHS constipation 10/16/24 hydralazine 10 mg tablet 10 mg PO BID PRN PRN blood pressure 10/16/24 Hospital Course Operations None Procedures Colonoscopy and EGD Weight / BMI Weight Weight: 58.9 kg Body Mass Index (BMI) 23.0 ABG / Lab / Microbiology Data 10/23/24 05:03 10/23/24 05:03 Laboratory: Laboratory Results - last 24 hr 10/23/24 05:03: WBC 6.6, RBC 3.79 L, Hgb 11.3 L, Hct 33.3 L, MCV 87.9, MCH 29.8,MCHC 33.9, RDW Std Deviation 47.8 H, RDW Coeff of Kierra 15.2 H, Plt Count 297, MPV9.5, Immature Gran % (Auto) 0.300, Neut % (Auto) 64.9, Lymph % (Auto) 14.9 L, [place] % (Auto) 15.7 H, Eos % (Auto) 3.7, Baso % (Auto) 0.5, Absolute Neuts (auto) 4.3, Absolute Lymphs (auto) 0.98, Nucleated RBC % 0, Sodium 131 L, Potassium 4.0, Chloride 99, Carbon Dioxide 21.1, Anion Gap 11, BUN 11, Creatinine 0.73, Estim Creat Clear Calc 43.30 L, Est GFR (MDRD) Non-Af 81, BUN/Creatinine Ratio 14.5, Glucose 100 H, Calcium 9.1 Microbiology: Microbiology 10/16/24 21:56 Stool Stool Occult Blood (LOIS) - Final Occult Blood Positive D/C Instructions Discharge Diet: No restrictions DC O2, CPAP, BIPAP Needs Home O2 [...] Simvastatin 80mg Discharge Plan Admission Admit Date/Time: 10/17/24 00:05 Primary Reason for Your Visit: GI bleed Attending Provider: Jose Tillman Primary Care Provider: Jose Hdz Consulting Providers: Lamin Ritter; Ramonita Boothe Instructions Additional Instructions / Restrictions: You had a GI bleed with the source was not identified. Though I suspect it is probably diverticulosis. Your blood count has remained stable after transfusions. Discharge Orders/Prescriptions Prescriptions: Continued pramipexole 1.5 mg tablet 1.5 mg PO QHS Patient Comments: TAKE 1 TABLET 2 TO 3 HOURS BEFORE BEDTIME FOR RESTLESS LEGS valsartan-hydrochlorothiazide 320-25 mg tablet 1 tab PO DAILY memantine 10 mg tablet 10 mg PO DAILY amlodipine 5 mg tablet 5 mg PO DAILY escitalopram oxalate 5 mg tablet 5 mg PO 1700 diphenhydramine-acetaminophen [Acetaminophen PM] 25-500 mg tablet 1 tab PO QHS PRN (Reason: sleep) pantoprazole 40 mg Tablet,Delayed Release (Dr/Ec) 40 mg PO BID 30 Days Qty: 60 2RF hydralazine 10 mg tablet 10 mg PO BID PRN PRN (Reason: blood pressure) docusate sodium 100 mg capsule 100 mg PO QHS Held aspirin 81 mg capsule 81 mg PO DAILY 30 Days Qty: 30 0RF Hold Instructions: Resume on 10/27/24. Referrals / Follow Up: Jose Hdz MD [Primary Care Provider] - Within 2 Weeks Disposition Disposition (needs filled in before D/C Order can be placed): Home, Self Care Charges/Coding Visit Charges Inpatient E&M: 48806 Disch Hosp 10/23/24 1627 <Electronically signed by Jose Tillman DO> Cosigner Signature (if applicable): CC: Dr. Jose Tillman DO; Dr. Jose Hdz MD~ Signed ADDENDUM by Dr. Jose Tillman DO on 10/24/24 at 1055 Addendum Discharge was held on the eighth given concern by patient and family that she was too unsafe to go home. Case management met with patient and family on the th and plan is now for the patient to go home with home health care. 10/24/24 1055<Electronically signed by Jose Tillman DO> Cosigner Signature (if applicable): cc: Dr. Jose Tillman DO; Dr. Jose Hdz MD ~* Signed [facility] Work Phone: [phone]) 851-287507-09-2025 Progress note Author Jose Tillman [facility] Note Date/Time October 24, 2024 10:55 am [facility] Medical Records Department [address] [place] [address] Progress Note - Hospitalist 10/24/24712 MR#: [id number] Acct: [id number] Name: XAVIER RAHMAN Rep #:[id number] : 1940 84 From: Jose Tillman DO PCP: Dr. Jose Hdz MD Status:ADM IN Location: [facility] Reason for Visit Reason for Visit: Diagnoses Acute posthemorrhagic anemia (10/17/24) Anemia, unspecified (10/17/24) Gastro-esophageal reflux disease without esophagitis (10/17/24) Diverticulosis of intestine, part unspecified, without perforation or abscess without bleeding (10/17/24) Gastrointestinal hemorrhage, unspecified (10/17/24) Adverse effect of unspecified drugs, medicaments and biological substances, initial encounter (10/17/24) Personal history of other diseases of the digestive system (10/17/24) Subjective Subjective Feeling well. Objective Data Objective Data Vital Signs: Vital Signs Temp Pulse Resp BP Pulse Ox O2 Del Method O2 Flow Rate 37.1 C 66 16 142/52 H 94 Room Air 2 10/24/24 05:22 10/24/24 05:22 10/24/24 05:22 10/24/24 05:22 10/24/24 05:22 10/24/24 05:22 10/22/24 13:42 FiO2 99 10/22/24 13:42 Oxygen Flow Rate (L/min) 2 Oxygen Delivery Method Room Air Weight: 58.1 kg Body Mass Index (BMI) 22.6 Intake & Output: Intake and Output for Last 24 Hours 10/22/24 10/23/24 10/24/24 23:59 23:59 23:59 Intake Total 350 / 350 550 / 550 300 / 300 Output Total / Balance 349 / 349 550 / 550 300 / 300 Lab / Micro Data 10/23/24 05:03 10/23/24 05:03 Micro: Microbiology 10/16/24 21:56 Stool Stool Occult Blood (LOIS) - Final Occult Blood Positive Physical Exam Const alert and no apparent distress Constitutional Narrative: Up in chair HEENT head/scalp atraumatic and moist oral mucous membranes Resp normal respiratory effort and no retractions Assessment & Plan Assessment/Plan (1) Acute anemia: PLAN: ABLA POA. Hg 6.8 on admssion. now up to 11.3 s/p 3 units PRBCs 2/2 GIB. Monitor. (2) GI bleed: QUALIFIERS: GI bleed type/associated pathology: unspecified gastrointestinal hemorrhage type Qualified Code(s): K92.2 - Gastrointestinal hemorrhage, unspecified PLAN: no clear source on EGD and colonoscopy. Colonoscopy 10/22: 8mm polyp at splenic flexure, removed with cold biopsy forceps.Diverticulosis in the entire examined colon. Rectal prolapse. Suspect that the bleeding was likely due to diverticulosis though no obvious bleeding was noted on the colonoscopy. Follow-up GI as outpatient for evaluation of capsule endoscopy. (3) Debility: PLAN: Feeling too unsafe to go home. CM/SW assisting on disposition PLAN: Plan Chronic conditions: * HTN: losartan, HCTZ, hydralazine, amlodipine * Depression: escitalopram VTE prophylaxis: SCDs Avoidable day. Medically stable for discharge 10/23. Will discharge home with home health care. Case management met with patient and daughter. Charges/Coding Visit Charges Inpatient E&M: 26981 Disch Hosp 10/24/24 1059 <Electronically signed by Jose Tillman DO> Cosigner Signature (if applicable): CC: ~ Signed [facility] Work Phone: [phone] 712-755907-09-2025 Discharge summary [facility] Medical Records Department [address] [place] [id number] Discharge Summary 10/23/24 1623 MR#: [id number] Acct: [id number] Name: XAVIER RAHMAN Rep #:[id number] : 1940 84 From: Jose Tillman DO PCP: Dr. Jose Hdz MD Status:ADM IN Location: [address] Providers Date of Admission: 10/17/24 Primary Care Physician: Dr. Jose Hdz MD Consultations 10/17/24 00:58 Consult: Gastroenterology Routine Consulting Provider: [facility] Reason for Consult: GI bleed with ABLA. EMERGENT Consult: No MD Notified: Yes Date Notified: 10/17/24 Time Notified: 00:06 Method of Notification: ED Physician Initiated Reason For Visit: GI BLEED WITH ABLA Diagnosis Discharge Diagnosis (1) Acute anemia: Status: Acute Code(s): D64.9 - Anemia, unspecified Plan: ABLA POA. Hg 6.8 on admssion. now up to 11.3 s/p 3 units PRBCs 2/2 GIB. Monitor. (2) GI bleed: Status: Acute Code(s): K92.2 - Gastrointestinal hemorrhage, unspecified Qualifiers: GI bleed type/associated pathology: unspecified gastrointestinal hemorrhage type Qualified Code(s):K92.2 - Gastrointestinal hemorrhage, unspecified Plan: no clear source on EGD and colonoscopy. Colonoscopy 10/22: 8mm polyp at splenic flexure, removed with cold biopsy forceps.Diverticulosis in the entire examined colon. Rectal prolapse. Suspect that the bleeding was likely due to diverticulosis though no obvious bleeding was noted on the colonoscopy. Plan Chronic conditions: * HTN: losartan, HCTZ, hydralazine, amlodipine * Depression: escitalopram VTE prophylaxis: SCDs Medications at Discharge Home Medications pramipexole 1.5 mg tablet 1.5 mg PO QHS restless legs 10/16/22 valsartan 320 mg-hydrochlorothiazide 25 mg tablet [...] oxalate 5 mg tablet 5 mg PO 1700 depression 07/15/24 aspirin 81 mg capsule 81 mg PO DAILY 30 days #30 caps 07/17/24 Held on 10/23/24. Instructions: Resume on 10/27/24. docusate sodium 100 mg capsule 100 mg PO QHS constipation 10/16/24 hydralazine 10 mg tablet 10 mg PO BID PRN PRN blood pressure 10/16/24 Hospital Course Operations None Procedures Colonoscopy and EGD Weight / BMI Weight Weight: 58.9 kg Body Mass Index (BMI) 23.0 ABG / Lab / Microbiology Data 10/23/24 05:03 10/23/24 05:03 Laboratory: Laboratory Results - last 24 hr 10/23/24 05:03: WBC 6.6, RBC 3.79 L, Hgb 11.3 L, Hct 33.3 L, MCV 87.9, MCH 29.8,MCHC 33.9, RDW Std Deviation 47.8 H, RDW Coeff of Kierra 15.2 H, Plt Count 297, MPV9.5, Immature Gran % (Auto) 0.300, Neut% (Auto) 64.9, Lymph % (Auto) 14.9 L, [place] % (Auto) 15.7 H, Eos % (Auto) 3.7, Baso % (Auto) 0.5, Absolute Neuts (auto) 4.3, Absolute Lymphs (auto) 0.98, Nucleated RBC % 0, Sodium 131 L, Potassium 4.0, Chloride 99, Carbon Dioxide 21.1, Anion Gap 11, BUN 11, Creatinine 0.73, Estim Creat Clear Calc 43.30 L, Est GFR (MDRD) Non-Af 81, BUN/Creatinine Ratio 14.5, Glucose 100 H, Calcium 9.1 Microbiology: Microbiology 10/16/24 21:56 Stool Stool Occult Blood (LOIS) - Final Occult Blood Positive D/C Instructions Discharge Diet: No restrictions DC O2, CPAP, BIPAP Needs Home O2 [...] Simvastatin 80mg Discharge Plan Admission Admit Date/Time: 10/17/24 00:05 Primary Reason for Your Visit: GI bleed Attending Provider: Jose Tillman Primary Care Provider: Jose Hdz Consulting Providers: Lamin Ritter; Ramonita Boothe Instructions Additional Instructions / Restrictions: You had a GI bleed with the source was not identified. Though I suspect it is probably diverticulosis. Your blood count has remained stable after transfusions. Discharge Orders/Prescriptions Prescriptions: Continued pramipexole 1.5 mg tablet 1.5 mg PO QHS Patient Comments: TAKE 1 TABLET 2 TO 3 HOURS BEFORE BEDTIME FOR RESTLESS LEGS valsartan-hydrochlorothiazide 320-25 mg tablet 1 tab PO DAILY memantine 10 mg tablet 10 mg PO DAILY amlodipine 5 mg tablet 5 mg PO DAILY escitalopram oxalate 5 mg tablet 5 mg PO 1700 diphenhydramine-acetaminophen [Acetaminophen PM] 25-500 mg tablet 1 tab PO QHS PRN (Reason: sleep) pantoprazole 40 mg Tablet,Delayed Release (Dr/Ec) 40 mg PO BID 30 Days Qty: 60 2RF hydralazine 10 mg tablet 10 mg PO BID PRN PRN (Reason: blood pressure) docusate sodium 100 mg capsule 100 mg PO QHS Held aspirin 81 mg capsule 81 mg PO DAILY 30 Days Qty: 30 0RF Hold Instructions: Resume on 10/27/24. Referrals / Follow Up: Jose Hdz MD [Primary Care Provider] - Within 2 Weeks Disposition Disposition (needs filled in before D/C Order can be placed): Home, Self Care Charges/Coding Visit Charges Inpatient E&M: 14578 Disch Hosp 10/23/24 1627 Cosigner Signature (if applicable): CC: Dr. Jose Tillman DO; Dr. Jose Hdz MD~ Signed ADDENDUM by Dr. Jose Tillman DO on 10/24/24 at 1055 Addendum Discharge was held on the eighth given concern by patient and family that she was too unsafe to go home. Case management met with patient and family on the ninth and plan is now for the patient to [place] with home health care. 10/24/24 1055 Cosigner Signature (if applicable): cc: Dr. Jose Tillman DO; Dr. Jose Hdz MD ~* Signed [facility]07-09-2025 Progress note [facility] Medical Records Department [address] [place] [address] Progress Note - Hospitalist 10/24/24 0713 MR#: [id number] Acct: [id number] Name: XAVIER RAHMAN Rep #:[id number] : 1940 84 From: Jose Tillman DO PCP: Dr. Jose Hdz MD Status:ADM IN Location: [place] [address]1 Reason for Visit Reason for Visit: Diagnoses Acute posthemorrhagic anemia (10/17/24) Anemia, unspecified (10/17/24) Gastro-esophageal reflux disease without esophagitis (10/17/24) Diverticulosis of intestine, part unspecified, without perforation or abscess without bleeding (10/17/24) Gastrointestinal hemorrhage, unspecified (10/17/24) Adverse effect of unspecified drugs, medicaments and biological substances, initial encounter (10/17/24) Personal history of other diseases of the digestive system (10/17/24) Subjective Subjective Feeling well. Objective Data Objective Data Vital Signs: Vital Signs Temp Pulse Resp BP Pulse Ox O2 Del Method O2 Flow Rate 37.1 C 66 16 142/52 H 94 Room Air 2 10/24/24 05:22 10/24/24 05:22 10/24/24 05:22 10/24/24 05:22 10/24/24 05:22 10/24/24 05:22 10/22/24 13:42 FiO2 99 10/22/24 13:42 Oxygen Flow Rate (L/min) 2 Oxygen Delivery Method Room Air Weight: 58.1 kg Body Mass Index (BMI) 22.6 Intake & Output: Intake and Output for Last 24 Hours 10/22/24 10/23/24 10/24/24 23:59 23:59 23:59 Intake Total 350 / 350 550 / 550 300 / 300 Output Total / Balance 349 / 349 550 / 550 300 / 300 Lab / Micro Data 10/23/24 05:03 10/23/24 05:03 Micro: Microbiology 10/16/24 21:56 Stool Stool Occult Blood (LOIS) - Final Occult Blood Positive Physical Exam Const alert and no apparent distress Constitutional Narrative: Up in chair HEENT head/scalp atraumatic and moist oral mucous membranes Resp normal respiratory effort and no retractions Assessment & Plan Assessment/Plan (1) Acute anemia: PLAN: ABLA POA. Hg 6.8 on admssion. now up to 11.3 s/p 3 units PRBCs 2/2 GIB. Monitor. (2) GI bleed: QUALIFIERS: GI bleed type/associated pathology: unspecified gastrointestinal hemorrhage type Qualified Code(s): K92.2 - Gastrointestinal hemorrhage, unspecified PLAN: no clear source on EGD and colonoscopy. Colonoscopy 10/22: 8mm polyp at splenic flexure, removed with cold biopsy forceps.Diverticulosis in the entire examined colon. Rectal prolapse. Suspect that the bleeding was likely due to diverticulosis though no obvious bleeding was noted on the colonoscopy. Follow-up GI as outpatient for evaluation of capsule endoscopy. (3) Debility: PLAN: Feeling too unsafe to go home. CM/SW assisting on disposition PLAN: Plan Chronic conditions: * HTN: losartan, HCTZ, hydralazine, amlodipine * Depression: escitalopram VTE prophylaxis: SCDs Avoidable day. Medically stable for discharge 10/23. Will discharge home with home health care. Case management met with patient and daughter. Charges/Coding Visit Charges Inpatient E&M: 77197 Disch Hosp 10/24/24 1055 Cosigner Signature (if applicable): CC: ~ Signed [facility]07-08-2025 Progress note Author Brad Winslow [facility] Note Date/Time October 23, 2024 5:49p m [facility] Medical Records Department [address] [place] [address] Progress Note 10/23/24 1746 MR#: [id number] Acct: [id number] Name: XAVIER RAHMAN Rep #:[id number] : 1940 84 From: Brad Winslow DO PCP: Dr. Jose Hdz MD Status:ADM IN Location: [place] [address] Progress Note Patient underwent colonoscopy yesterday for recurrent GI bleeding. Her colonoscopy displayed diffuse diverticular disease and adenomatous polyp that was removed. I talked with her daughter and told her that she likely had a diverticular bleed. We talked about the ways in order to prevent recurrent bleeding from diverticular source but we cannot totally eliminate that. Physical Exam Const alert, oriented x3, no apparent distress and healthy appearing General Appearance: cooperative GI normal to inspection, nondistended, normoactive bowel sounds, soft to palpation,non-tender and non-distended Percussion: normal to percussion Rectal Exam: deferred Assessment & Plan Assessment/Plan (1) GI bleed: QUALIFIERS: GI bleed type/associated pathology: unspecified gastrointestinal hemorrhage type Qualified Code(s): K92.2 - Gastrointestinal hemorrhage, unspecified (2) Acute anemia: PLAN: Plan GI bleed - CT performed on admission and showed new focal hyperdensity in the diverticulum near the hepatic flexure -Question ischemic colitis -Start prep 10/20--> extended prep being used and will be completed today - EGD was unremarkable for any findings consistent with GI bleed - CLD until 12tuesday - Continue to hold home aspirin - Patient will undergo colonoscopy. She was explained alternatives, risk and benefits include understanding bleeding, infection, subs, perforation, need for meds or to . She have an ASA of 3. 10/23/2024- Findings: The perianal and digital rectal examinations were normal. An 8 mm polyp was found in the splenic flexure. The polyp was sessile. The polyp was removed with a cold biopsy forceps. Resection and retrieval were complete. Verification of patient identification for the specimen was done. Estimated blood loss was minimal. Scattered small and large-mouthed diverticula were found in the entire colon. Moderate rectal prolapse was present. Impression: - One 8 mm polyp at the splenic flexure, removed with a cold biopsy forceps. Resected and retrieved. - Diverticulosis in the entire examined colon. - Rectal prolapse. Patient is okay to be discharged from GI standpoint. She may need a capsule endoscopy in the future. Visit Charges Inpatient E&M: 97493 [facility] L[facility] 10/23/241748 <Electronically signed by Brad Winslow DO> Brad Winslow DO Cosigner Signature (if applicable): CC: ~ Signed [facility] Work Phone: 1(370) 129-186507-08-2025 Progress note [facility] Medical Records Department [address] [place] [address] Progress Note 10/23/24 174 MR#: [id number] Acct: [id number] Name: XAVIER RAHMAN Rep #:[id number] : 1940 84 From: Brad Winslow DO PCP: Dr. Jose Hdz MD Status:ADM IN Location: [place] [address] Progress Note Patient underwent colonoscopy yesterday for recurrent GI bleeding. Her colonoscopy displayed diffuse diverticular disease and adenomatous polyp that was removed. I talked with her daughter and told her that she likely had a diverticular bleed. We talked about the ways in order to prevent recurrent b leeding from diverticular source but we cannot totally eliminate that. Physical Exam Const alert, oriented x3, no apparent distress and healthy appearing General Appearance: cooperative GI normal to inspection, nondistended, normoactive bowel sounds, soft to palpation,non-tender and non-distended Percussion: normal to percussion Rectal Exam: deferred Assessment & Plan Assessment/Plan (1) GI bleed: QUALIFIERS: GI bleed type/associated pathology: unspecified gastrointestinal hemorrhage type Qualified Code(s): K92.2 - Gastrointestinal hemorrhage, unspecified (2) Acute anemia: PLAN: Plan GI bleed - CT performed on admission and showed new focal hyperdensity in the diverticulum near the hepatic flexure -Question ischemic colitis -Start prep 10/20--> extended prep being used and will be completed today - EGD was unremarkable for any findings consistent with GI bleed - CLD until 12am Tuesday - Continue to hold home aspirin - Patient will undergo colonoscopy. She was explained alternatives, risk and benefits include understanding bleeding, infection, subs, perforation, need for meds or to . She have an ASA of 3. 10/23/2024- Findings: The perianal and digital rectal examinations were normal. An 8 mm polyp was found in the splenic flexure. The polyp was sessile. The polyp was removed with a cold biopsy forceps. Resection and retrieval were complete. Verification of patient identification for the specimen was done. Estimated blood loss was minimal. Scattered small and large-mouthed diverticula were found in the entire colon. Moderate rectal prolapse was present. Impression: - One 8 mm polyp at the splenic flexure, removed with a cold biopsy forceps. Resected and retrieved. - Diverticulosis in the entire examined colon. - Rectal prolapse. Patient is okay to be discharged from GI standpoint. She may need a capsule endoscopy in the future. Visit Charges Inpatient E&M: 82654 [facility] Hosp 10/23/[address] [facility] Nayla Delgado Signature (if applicable): CC: ~ Signed [facility]07[facility]08[facility] Progress note Author Jose Tillman [facility] Note Date/Time October 23, 2024 2:16p m [facility] Medical Records Department [address] [place] [address] Progress Note - Hospitalist 10/23/24 0721 MR#: [id number] Acct: [id number] Name: XAVIER RAHMAN Rep #:[id number] : 1940 84 From: Jose Tillman DO PCP: Dr. Jose Hdz MD Status:ADM IN Location: [place] [address] Reason for Visit Reason for Visit: Diagnoses Acute posthemorrhagic anemia (10/17/24) Anemia, unspecified (10/17/24) Gastro-esophageal reflux disease without esophagitis (10/17/24) Diverticulosis of intestine, part unspecified, without perforation or abscess without bleeding (10/17/24) Gastrointestinal hemorrhage, unspecified (10/17/24) Adverse effect of unspecified drugs, medicaments and biological substances, initial encounter (10/17/24) Personal history of other diseases of the digestive system (10/17/24) Subjective Subjective Feels well. Objective Data Objective Data Vital Signs: Vital Signs Temp Pulse Resp BP Pulse Ox O2 Del Method O2 Flow Rate 36.6 C 74 16 141/55 H 94 Room Air 2 10/23/24 06:02 10/23/24 06:02 10/23/24 06:02 10/23/24 06:02 10/23/24 06:02 10/23/24 06:02 10/22/24 13:42 FiO2 99 10/22/24 13:42 Oxygen Flow Rate (L/min) 2 Oxygen Delivery Method Room Air Weight: 58.9 kg Body Mass Index (BMI) 23.0 Intake & Output: Intake and Output for Last 24 Hours 10/21/24 10/22/24 10/23/24 23:59 23:59 23:59 Intake Total 1000 / 1000 350 / 350 350 / 350 Output Total Balance 1000 / 1000 349 / 349 350 / 350 Lab / Micro Data 10/23/24 05:03 10/23/24 05:03 Labs: Laboratory Results - last 24 hr 10/23/24 05:03: WBC 6.6, RBC 3.79 L, Hgb 11.3 L, Hct 33.3 L, MCV 87.9, MCH 29.8,MCHC 33.9, RDW Std Deviation 47.8 H, RDW Coeff of Kierra 15.2 H, Plt Count 297, MPV9.5, Immature Gran % (Auto) 0.300, Neut % (Auto) 64.9, Lymph % (Auto) 14.9 L, [place] % (Auto) 15.7 H, Eos % (Auto) 3.7, Baso % (Auto) 0.5, Absolute Neuts (auto) 4.3, Absolute Lymphs (auto) 0.98, Nucleated RBC % 0, Sodium 131 L, Potassium 4.0, Chloride 99, Carbon Dioxide 21.1, Anion Gap 11, BUN 11, Creatinine 0.73, Estim Creat Clear Calc 43.30 L, Est GFR (MDRD) Non-Af 81, BUN/Creatinine Ratio 14.5, Glucose 100 H, Calcium 9.1 Micro: Microbiology 10/16/24 21:56 Stool Stool Occult Blood (LOIS) - Final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 10/21/24 02:16 10/20/24 07:08 FiO2 99 10/20/24 07:08 Oxygen Flow Rate (L/min) 2 Oxygen Delivery Method Room Air Weight: 58.2 kg Body Mass Index (BMI) 22.7 Intake & Output: Intake and Output for Last 24 Hours 10/19/24 10/20/24 10/21/24 23:59 23:59 23:59 Intake Total 1590 / 1590 500 / 500 Output Total 850 / 850 Balance 740 / 740 500 / 500 Lab / Micro Data 10/21/24 04:49 10/21/24 04:49 Labs: Laboratory Results - last 24 hr 10/21/24 04:49: WBC 7.2, RBC 3.48 L, Hgb 10.2 L, Hct 29.9 L, MCV 85.9, MCH 29.3,MCHC 34.1, RDW Std Deviation 45.7 H, RDW Coeff of Kierra 15.0 H, Plt Count 223, MPV9.8, Immature Gran % (Auto) 0.400, Neut% (Auto) 70.8 H, Lymph % (Auto) 12.0 L, [place] % (Auto) 13.7 H, Eos % (Auto) 2.4, Baso % (Auto) 0.7, Absolute Neuts (auto)5.1, Absolute Lymphs (auto) 0.86, Nucleated RBC % 0, Sodium 135, Potassium 3.9,Chloride 103, Carbon Dioxide 21.6, Anion Gap 10, BUN 6, Creatinine 0.60 L, EstimCreat Clear Calc 43.30 L, Est GFR (MDRD) Non-Af 88, BUN/Creatinine Ratio 9.3 L, Glucose 87, Calcium 8.8, Phosphorus 2.8, Magnesium 2.0 Micro: Microbiology 10/16/24 21:56 Stool Stool Occult Blood (LOIS) - Final Occult Blood Positive Physical Exam Const alert, oriented x3, no apparent distress, average body habitus, healthy appearing and well nourished Constitutional Narrative: Elderly, white female, sitting up in bed, eating breakfast, watching television,appears comfortable, nontoxic General Appearance: cooperative HEENT normocephalic, head/scalp atraumatic and moist oral mucous membranes Resp normal respiratory effort, no retractions, no use of accessory muscles and clearto auscultation bilaterally Auscultation: Negative for rales, rhonchi or wheezes Cardio regular rate, regular rhythm, S1 normal heart sound, S2 normal heart sound, no rub, no gallops and no clicks; Negative for no murmurs Cardio Narrative: Patient with a 4-6 systolic murmur loudest at left lower sternal border GI normal to inspection, nondistended, normoactive bowel sounds, soft to palpation,non-tender and non-distended Extremity no clubbing, cyanosis or edema Extremity Narrative: 2+ pedal pulses Neuro oriented x3, moves all extremities and no focal motor deficits Sensorium / Orientation: alert Speech: speech normal Psych affect normal Psych Narrative: Talkative, eye contact is good and patient interacts appropriately Assessment & Plan Assessment/Plan (1) GI bleed: QUALIFIERS: GI bleed type/associated pathology: unspecified gastrointestinal hemorrhage type Qualified Code(s): K92.2 - Gastrointestinal hemorrhage, unspecified (2) Acute anemia: PLAN: Plan GI bleed - CT performed on admission and showed new focal hyperdensity in the diverticulum near the hepatic flexure -Question ischemic colitis -Start prep 10/20--> extended prep being used and will be completed today - EGD was unremarkable for any findings consistent with GI bleed - CLD until 12tuesday - Continue to hold home aspirin - GI is following--> colonoscopy Tuesday Acute anemia - Hemoglobin has been between 12 and 13 at baseline as of recently - Down to 8.5 on presentation--> Now stable at 10 since transfusion of 4 u PRBC - Plan for colonoscopy on Tuesday - Repeat CBC in a.m. - GI is following Generalized weakness/debility - PT and OT are following - Patient did poorly - Plan is for discharge to skilled facility once medically stable-->after Tuesday GERD/history of GI bleed - Continue home PPI - Previous EGD performed in March 2020 for found 3 bleeding angiodysplastic lesions which were treated with heater probe - patient with cardiac murmur on exam-->increased risk of angiodysplastic lesionformation History of stroke - Hold home aspirin due to the above - Restart as able Essential hypertension - Continue Amlodipine - Restart home hydralazine - Continue to hold valsartan/HCTZ and reevaluate again tomorrow for ability to initiate -Slowly restarting medications as her blood pressure was low on admission - Look to reinitiate once blood pressure shows stability History of cardiac arrhythmia - Patient has pacemaker Memory loss - documented Alzheimer's type dementia - Continue home memantine Restless leg syndrome - Continue home Mirapex History of breast cancer - DCIS - Outpatient follow-up Depression/anxiety - Continue Lexapro DVT prophylaxis - SCDs CODE STATUS - Full code Charges/Coding Visit Charges Inpatient E&M: 21522 Subs Hosp L2 10/21/24 0942 Cosigner Signature (if applicable): CC: ~ Signed [facility]07-05-2025 Progress note Author Ramonita Boothe [facility] Note Date/Time October 20, 2024 11:56 am [facility] Medical Records Department [address] [place] [address] Progress Note - Hospitalist 10/20/2448 MR#: [id number] Acct: [id number] Name: XAVIER RAHMAN Rep #:[id number] : 1940 84 From: Ramonita Boothe DO PCP: Dr. Jose Hdz MD Status:ADM IN [id number] Reason for Visit Reason for Visit: Blood in stool Subjective Subjective No issue overnight. Concerned about tolerating prep. States that she is nauseated from Meds this am and refused enema Objective Data Objective Data Vital Signs: Vital Signs Temp Pulse Resp BP Pulse Ox O2 Del Method O2 Flow Rate 98.1 F 66 18 148/63 H 100 Nasal Cannula 2 10/20/24 02:30 10/20/24 02:30 10/20/24 02:30 10/20/24 02:30 10/20/24 02:30 10/20/24 07:08 10/20/24 07:08 FiO2 99 10/20/24 07:08 Oxygen Flow Rate (L/min) 2 Oxygen Delivery Method Nasal Cannula Weight: 58.3 kg Body Mass Index (BMI) 22.7 Intake & Output: Intake and Output for Last 24 Hours 10/18/24 10/19/24 10/20/24 23:59 23:59 23:59 Intake Total 750 / 750 1590 / 1590 Output Total 850 / 850 Balance 750 / 500 740 / 740 Lab / Micro Data 10/20/24 04:43 10/20/24 04:43 Labs: Laboratory Results - last 24 hr 10/20/24 04:43: WBC 6.4, RBC 3.22 L, Hgb 9.3 L, Hct 28.0 L, MCV 87.0, MCH 28.9, MCHC 33.2, RDW Std Deviation 47.4 H, RDW Coeff of Kierra 15.1 H, Plt Count 174, MPV10.0, Sodium 137, Potassium 3.9, Chloride 106, Carbon Dioxide 23.7, Anion Gap 8,BUN 6, Creatinine 0.58 L, Estim Creat Clear Calc 43.30 L, Est GFR (MDRD) Non-Af 89, BUN/Creatinine Ratio 10.4, Glucose 97, Calcium 8.3, Phosphorus 2.9, Magnesium 1.8 Micro: Microbiology 10/16/24 21:56 Stool Stool Occult Blood (LOIS) - Final Occult Blood Positive Physical Exam Const alert, oriented x3, no apparent distress, average body habitus, healthy appearing and well nourished Constitutional Narrative: Elderly, white female, sitting up in a chair watching TV, nursing is at the bedside, appears comfortable, nontoxic, interacts appropriately General Appearance: cooperative HEENT normocephalic, head/scalp atraumatic and moist oral mucous membranes Resp normal respiratory effort, no retractions, no use of accessory muscles and clearto auscultation bilaterally Auscultation: Negative for rales, rhonchi or wheezes Cardio regular rate, regular rhythm, S1 normal heart sound, S2 normal heart sound, no rub, no gallops and no clicks; Negative for no murmurs Cardio Narrative: Patient with a 4-6 systolic murmur loudest at left lower sternal border GI normal to inspection, nondistended, normoactive bowel sounds, soft to palpation and non-tender Extremity normal to inspection, full ROM and no clubbing, cyanosis or edema Extremity Narrative: 2+ pedal pulses Neuro oriented x3, moves all extremities and no focal motor deficits Speech: speech normal Psych affect normal Psych Narrative: Talkative, eye contact is good and patient interacts appropriately Assessment & Plan Assessment/Plan (1) GI bleed: QUALIFIERS: GI bleed type/associated pathology: unspecified gastrointestinal hemorrhage type Qualified Code(s): K92.2 - Gastrointestinal hemorrhage, unspecified (2) Acute anemia: PLAN: Plan GI bleed - CT performed and shows new focal hyperdensity in the diverticulum near the hepatic flexure -Question ischemic colitis -Start prep today--> will be extended prep - EGD was unremarkable for any findings consistent with GI bleed - CLD until 12tuesday - Continue to hold home aspirin - GI is following--> colonoscopy Tuesday Acute anemia - Hemoglobin has been between 12 and 13 at baseline as of recently - Down to 8.5 on presentation--> Now stable at 9-9.5 since transfusion of 4 u PRBC - Plan for colonoscopy on Tuesday - Repeat CBC in a.m. - GI is following Hypophosphatemia - resolved Hypokalemia - Resolve Generalized weakness/debility - PT and OT are following - Patient did poorly - Plan is for discharge to skilled facility once medically stable-->after Tuesday GERD/history of GI bleed -Continue home PPI - Previous EGD performed in March 2020 for found 3 bleeding angiodysplastic lesions which were treated with heater probe - patient with cardiac murmur on exam-->increased risk of angiodysplastic lesionformation History of stroke - Hold home aspirin due to the above - Restart as able Essential hypertension - Continue Amlodipine - Continue to hold Hydralazine - Look to reinitiate once blood pressure shows stability History of cardiac arrhythmia - Patient has pacemaker Memory loss - documented Alzheimer's type dementia - Continue home memantine Restless leg syndrome - Continue home Mirapex History of breast cancer - DCIS - Outpatient follow-up Depression/anxiety - Continue Lexapro DVT prophylaxis - SCDs CODE STATUS - Full code Charges/Coding Visit Charges Inpatient E&M: 31989 Subs Hosp L2 10/20/24 1156 <Electronically signed by Ramonita Boothe DO> Cosigner Signature (if applicable): CC: ~ Signed [facility] Work Phone: 1(646) 729-498107-05-2025 Progress note [facility] Medical Records Department [address] [place] [address] Progress Note - Hospitalist 10/20/24 0748 MR#: [id number] Acct: [id number] Name: XAVIER RAHMAN Rep #:[id number] : 1940 84 From: Ramonita Boothe DO PCP: Dr. Jose Hdz MD Status:ADM IN Location: [facility] TP671-5 Reason for Visit Reason for Visit: Blood in stool Subjective Subjective No issue overnight. Concerned about tolerating prep. States that she is nauseated from Meds this amand refused enema Objective Data Objective Data Vital Signs: Vital Signs Temp Pulse Resp BP Pulse Ox O2 Del Method O2 Flow Rate 98.1 F 66 18 148/63 H 100 Nasal Cannula 2 10/20/24 02:30 10/20/24 02:30 10/20/24 02:30 10/20/24 02:30 10/20/24 02:30 10/20/24 07:08 10/20/24 07:08 FiO2 99 10/20/24 07:08 Oxygen Flow Rate (L/min) 2 Oxygen Delivery Method Nasal Cannula Weight: 58.3 kg Body Mass Index (BMI) 22.7 Intake & Output: Intake and Output for Last 24 Hours 10/18/24 10/19/24 10/20/24 23:59 23:59 23:59 Intake Total 750 / 750 1590 / 1590 Output Total 850 / 850 Balance 750 / 500 740 / 740 Lab / Micro Data 10/20/24 04:43 10/20/24 04:43 Labs: Laboratory Results - last 24 hr 10/20/24 04:43: WBC 6.4, RBC 3.22 L, Hgb 9.3 L, Hct 28.0 L, MCV 87.0, MCH 28.9, MCHC 33.2, RDW Std Deviation 47.4 H, RDW Coeff of Kierra 15.1 H, Plt Count 174, MPV10.0, Sodium 137, Potassium 3.9, Chloride 106, Carbon Dioxide 23.7, Anion Gap 8,BUN 6, Creatinine 0.58 L, Estim Creat Clear Calc 43.30 L, Est GFR (MDRD) Non- Af 89, BUN/Creatinine Ratio 10.4, Glucose 97, Calcium 8.3, Phosphorus 2.9, Magnesium 1.8 Micro: Microbiology 10/16/24 21:56 Stool Stool Occult Blood (LOIS) - Final Occult Blood Positive Physical Exam Const alert, oriented x3, no apparent distress, average body habitus, healthy appearing and well nourished Constitutional Narrative: Elderly, white female, sitting up in a chair watching TV, nursing is at the bedside, appears comfortable, nontoxic, interacts appropriately General Appearance: cooperative HEENT normocephalic, head/scalp atraumatic and moist oral mucous membranes Resp normal respiratory effort, no retractions, no use of accessory muscles and clearto auscultation bilaterally Auscultation: Negative for rales, rhonchi or wheezes Cardio regular rate, regular rhythm, S1 normal heart sound, S2 normal heart sound, no rub, no gallops and no clicks; Negative for no murmurs Cardio Narrative: Patient with a 4-6 systolic murmur loudest at left lower sternal border GI normal to inspection, nondistended, normoactive bowel sounds, soft to palpation and non-tender Extremity normal to inspection, full ROM and no clubbing, cyanosis or edema Extremity Narrative: 2+ pedal pulses Neuro oriented x3, moves all extremities and no focal motor deficits Speech: speech normal Psych affect normal Psych Narrative: Talkative, eye contact is good and patient interacts appropriately Assessment & Plan Assessment/Plan (1) GI bleed: QUALIFIERS: GI bleed type/associated pathology: unspecified gastrointestinal hemorrhage type Qualified Code(s): K92.2 - Gastrointestinal hemorrhage, unspecified (2) Acute anemia: PLAN: Plan GI bleed - CT performed and shows new focal hyperdensity in the diverticulum near the hepatic flexure -Question ischemic colitis -Start prep today--> will be extended prep - EGD was unremarkable for any findings consistent with GI bleed - CLD until Tuesday - Continue to hold home aspirin - GI is following--> colonoscopy Tuesday Acute anemia - Hemoglobin has been between 12 and 13 at baseline as of recently - Down to 8.5 on presentation--> Now stable at 9-9.5 since transfusion of 4 u PRBC - Plan for colonoscopy on Tuesday - Repeat CBC in a.m. - GI is following Hypophosphatemia - resolved Hypokalemia - Resolve Generalized weakness/debility - PT and OT are following - Patient did poorly - Plan is for discharge to skilled facility once medically stable-->after Tuesday GERD/history of GI bleed -Continue home PPI - Previous EGD performed in March 2020 for found 3 bleeding angiodysplastic lesions which were treated with heater probe - patient with cardiac murmur on exam-->increased risk of angiodysplastic lesionformation History of stroke - Hold home aspirin due to the above - Restart as able Essential hypertension - Continue Amlodipine - Continue to hold Hydralazine - Look to reinitiate once blood pressure shows stability History of cardiac arrhythmia - Patient has pacemaker Memory loss - documented Alzheimer's type dementia - Continue home memantine Restless leg syndrome - Continue home Mirapex History of breast cancer - DCIS - Outpatient follow-up Depression/anxiety - Continue Lexapro DVT prophylaxis - SCDs CODE STATUS - Full code Charges/Coding Visit Charges Inpatient E&M: 70908 Subs Hosp L2 10/20/24 1156 Cosigner Signature (if applicable): CC: ~ Signed [facility]07-04-2025 Progress note Author Ramonita Boothe [facility] Note Date/Time October 19, 2024 11:11 am [facility] Medical Records Department [address] [place] [address] Progress Note - Hospitalist 10/19/24707 MR#: [id number] Acct: [id number] Name: XAVIER RAHMAN Rep #:[id number] : 1940 84 From: Ramonita Boothe DO PCP: Dr. Jose Hdz MD Status:ADM IN [place] [facility] [place] Reason for Visit Reason for Visit: Blood in stool Subjective Subjective Patient denies any issues overnight. She is little frustrated she cannot have regular food today but we discussed the importance of getting a good colonoscopy. Patient agreed. She is still amenable to colonoscopy on Tuesday. But is improved to 9.4 after blood transfusion. Objective Data Objective Data Vital Signs: Vital Signs Temp Pulse Resp BP Pulse Ox O2 Del Method O2 Flow Rate 97.6 F L 72 16 149/55 H 96 Nasal Cannula 2 10/19/24 05:00 10/19/24 05:00 10/19/24 05:00 10/19/24 05:00 10/19/24 05:00 10/19/24 05:00 10/19/24 05:00 Oxygen Flow Rate (L/min) 2 Oxygen Delivery Method Nasal Cannula Weight: 58.4 kg Body Mass Index (BMI) 22.8 Intake & Output: Intake and Output for Last 24 Hours 10/17/24 10/18/24 10/19/24 23:59 23:59 23:59 Intake Total 3238.25 / 3238.25 750 / 750 Output Total 850 / 850 Balance 3236.25 / 3236.25 750 / 500 -850 / -850 Lab / Micro Data 10/19/24 04:37 10/19/24 04:37 Labs: Laboratory Results - last 24 hr 10/16/24 22:44: Crossmatch See Detail 10/18/24 07:30: WBC 6.4, RBC 2.38 L, Hgb 6.8 L, Hct 20.6 L, MCV 86.6 D, MCH 28.6, MCHC 33.0, RDW Std Deviation 50.5 H, RDW Coeff of Kierra 16.1 H, Plt Count 156, MPV 10.1, Immature Gran % (Auto) 0.500, Neut % (Auto) 60.1, Lymph % (Auto) 21.2, [place] % (Auto) 12.5 H, Eos % (Auto) 5.1 H, Baso % (Auto) 0.6, Absolute Neuts (auto) 3.9, Absolute Lymphs (auto) 1.36, Nucleated RBC % 0 10/18/24 08:30: Hgb 7.3 L 10/18/24 14:50: Hgb 7.0 L 10/19/24 04:37: WBC 7.6, RBC 3.21 L, Hgb 9.4 L, Hct 27.6 L, MCV 86.0, MCH 29.3, MCHC 34.1, RDW Std Deviation 46.7 H, RDW Coeff of Kierra 15.1 H, Plt Count 160, MPV10.4, Immature Gran % (Auto) 0.800, Neut % (Auto) 66.2, Lymph % (Auto) 14.7 L, [place] % (Auto) 13.3 H, Eos % (Auto) 4.2, Baso % (Auto) 0.8, Absolute Neuts (auto) 5.0, Absolute Lymphs (auto) 1.11, Nucleated RBC % 0, Sodium 139, Potassium 3.2 L, Chloride 107, Carbon Dioxide 24.2, Anion Gap 8, BUN 11, Creatinine 0.60 L, Estim Creat Clear Calc 43.30 L, Est GFR (MDRD) Non-Af 88, BUN/Creatinine Ratio 18.5, Glucose 98, Calcium 8.2, Phosphorus 2.2 L, Magnesium 1.8, Total Bilirubin 0.56, AST 31, ALT 13, Alkaline Phosphatase 47, Total Protein 5.3 L, Albumin 3.4,Globulin 1.9 L, Albumin/Globulin Ratio 1.8 Micro: Microbiology 10/16/24 21:56 Stool Stool Occult Blood (LOIS) - Final Occult Blood Positive Physical Exam Const alert, oriented x3, no apparent distress, average body habitus, healthy appearing and well nourished Constitutional Narrative: Elderly, white female, sitting up in a chair at the bedside eating breakfast andwatching television, nursing is at the bedside, appears comfortable, nontoxic, interacts appropriately General Appearance: cooperative HEENT normocephalic, head/scalp atraumatic and moist oral mucous membranes Resp normal respiratory effort, no retractions, no use of accessory muscles and clearto auscultation bilaterally Auscultation: Negative for rales, rhonchi or wheezes Cardio regular rate, regular rhythm, S1 normal heart sound, S2 normal heart sound, no rub, no gallops and no clicks; Negative for no murmurs Cardio Narrative: Patient with a 4-6 systolic murmur loudest at left lower sternal border GI normal to inspection, nondistended, normoactive bowel sounds, soft to palpation and non-tender Extremity normal to inspection, full ROM and no clubbing, cyanosis or edema Extremity Narrative: 2+ pedal pulses Neuro moves all extremities and no focal motor deficits Speech: speech normal Psych affect normal Psych Narrative: Talkative, eye contact is good and patient interacts appropriately Assessment & Plan Assessment/Plan (1) GI bleed: QUALIFIERS: GI bleed type/associated pathology: unspecified gastrointestinal hemorrhage type Qualified Code(s): K92.2 - Gastrointestinal hemorrhage, unspecified (2) Acute anemia: PLAN: Plan GI bleed - CT performed and shows new focal hyperdensity in the diverticulum near the hepatic flexure -Question ischemic colitis -Patient now agreeable colonoscopy and will perform slow prep with full liquid diet today and clear liquid diet Tuesday and Tuesday with prep being initiated using MiraLAX on Tuesday - EGD was unremarkable for any findings consistent with GI bleed - Full liquid diet initiated - Continue to hold home aspirin - GI is following with plans for colonoscopy on Tuesday Acute anemia - Hemoglobin has been between 12 and 13 at baseline as of recently - Down to 8.5 on presentation and currently up to 9.4 after 4 units packed red blood cells - Patient has been transfused a total of 4 units since admission - Plan for colonoscopy on Tuesday - Repeat CBC in a.m. - GI is following Hypophosphatemia - IV sodium Phos replacement - Recheck in a.m. Hypokalemia - Oral 60 mEq p.o. potassium replacement - Recheck in a.m. Generalized weakness/debility - PT and OT are following - Patient did poorly - Plan is for discharge to skilled facility once medically stable-->after Tuesday GERD/history of GI bleed -Continue home PPI - Previous EGD performed in March 2020 for found 3 bleeding angiodysplastic lesions which were treated with heater probe For patient with cardiac murmur on exam his do suspect that set her up for increased risk of angiodysplastic lesion formation History of stroke - Hold home aspirin due to the above - Restart as able Essential hypertension - Restart home amlodipine as blood pressures are starting to trend up - Monitor for ability to restart hydralazine - Look to reinitiate once blood pressure shows stability History of cardiac arrhythmia - Patient has pacemaker Memory loss - documented Alzheimer's type dementia - Continue home memantine Restless leg syndrome - Continue home Mirapex History of breast cancer - DCIS - Outpatient follow-up Depression/anxiety - Continue Lexapro DVT prophylaxis - SCDs CODE STATUS - Full code Charges/Coding Visit Charges Inpatient E&M: 53031 Subs Hosp L2 10/19/24 1111 <Electronically signed by Ramonita Boothe DO> Cosigner Signature (if applicable): CC: ~ Signed [facility] Work Phone: 1([phone]) 326-882307-04-2025 Progress note [facility] Medical Records Department [address] [place] [address] Progress Note - Hospitalist 10/19/24 0708 MR#: [id number] Acct: [id number] Name: XAVIER RAHMAN Rep #:[id number] : 1940 84 From: Ramonita Boothe DO PCP: Dr. Jose Hdz MD Status:ADM IN [place] [facility] [place] Reason for Visit Reason for Visit: Blood in stool Subjective Subjective Patient denies any issues overnight. She is little frustrated she cannot have regular food today but we discussed the importance of getting a good colonoscopy. Patient agreed. She is still amenable to colonoscopy on Tuesday. But is improved to 9.4 after blood transfusion. Objective Data Objective Data Vital Signs: Vital Signs Temp Pulse Resp BP Pulse Ox O2 Del Method O2 Flow Rate 97.6 F L 72 16 149/55 H 96 Nasal Cannula 2 10/19/24 05:00 10/19/24 05:00 10/19/24 05:00 10/19/24 05:00 10/19/24 05:00 10/19/24 05:00 10/19/24 05:00 Oxygen Flow Rate (L/min) 2 Oxygen Delivery Method Nasal Cannula Weight: 58.4 kg Body Mass Index (BMI) 22.8 Intake & Output: Intake and Output for Last 24 Hours 10/17/24 10/18/24 10/19/24 23:59 23:59 23:59 Intake Total 3238.25 / 3238.25 750 / 750 Output Total / 850 / 850 Balance 3236.25 / 3236.25 750 / 500 -850 / -850 Lab / Micro Data 10/19/24 04:37 10/19/24 04:37 Labs: Laboratory Results - last 24 hr 10/16/24 22:44: Crossmatch See Detail 10/18/24 07:30: WBC 6.4, RBC 2.38 L, Hgb 6.8 L, Hct 20.6 L, MCV 86.6 D, MCH 28.6, MCHC 33.0, RDW Std Deviation 50.5 H, RDW Coeff of Kierra 16.1 H, Plt Count 156, MPV 10.1, Immature Gran % (Auto) 0.500, Neut % (Auto) 60.1, Lymph % (Auto) 21.2, [place] % (Auto) 12.5 H, Eos % (Auto) 5.1 H, Baso % (Auto) 0.6, Absolute Neuts (auto) 3.9, Absolute Lymphs (auto) 1.36, Nucleated RBC % 0 10/18/24 08:30: Hgb 7.3 L 10/18/24 14:50: Hgb 7.0 L 10/19/24 04:37: WBC 7.6, RBC 3.21 L, Hgb 9.4 L, Hct 27.6 L, MCV 86.0, MCH 29.3, MCHC 34.1, RDW Std Deviation 46.7 H, RDW Coeff of Kierra 15.1 H, Plt Count 160, MPV10.4, Immature Gran % (Auto) 0.800, Neut % (Auto) 66.2, Lymph % (Auto) 14.7 L, [place] % (Auto) 13.3 H, Eos % (Auto) 4.2, Baso % (Auto) 0.8, Absolute Neuts (auto) 5.0, Absolute Lymphs (auto) 1.11, Nucleated RBC % 0, Sodium 139, Potassium 3.2 L, Chloride 107, Carbon Dioxide 24.2, Anion Gap 8, BUN 11, Creatinine 0.60 L, Estim Creat Clear Calc43.30 L, Est GFR (MDRD) Non-Af 88, BUN/Creatinine Ratio 18.5, Glucose 98, Calcium 8.2, Phosphorus 2.2 L, Magnesium 1.8, Total Bilirubin 0.56, AST 31, ALT 13, Alkaline Phosphatase 47, Total Protein 5.3 L, Albumin 3.4,Globulin 1.9 L, Albumin/Globulin Ratio 1.8 Micro: Microbiology 10/16/24 21:56 Stool Stool Occult Blood (LOIS) - Final Occult Blood Positive Physical Exam Const alert, oriented x3, no apparent distress, average body habitus, healthy appearing and well nourished Constitutional Narrative: Elderly, white female, sitting up in a chair at the bedside eating breakfast andwatching television, nursing is at the bedside, appears comfortable, nontoxic, interacts appropriately General Appearance: cooperative HEENT normocephalic, head/scalp atraumatic and moist oral mucous membranes Resp normal respiratory effort, no retractions, no use of accessory muscles and clearto auscultation bilaterally Auscultation: Negative for rales, rhonchi or wheezes Cardio regular rate, regular rhythm, S1 normal heart sound, S2 normal heart sound, no rub, no gallops and no clicks; Negative for no murmurs Cardio Narrative: Patient with a 4-6 systolic murmur loudest at left lower sternal border GI normal to inspection, nondistended, normoactive bowel sounds, soft to palpation and non-tender Extremity normal to inspection, full ROM and no clubbing, cyanosis or edema Extremity Narrative: 2+ pedal pulses Neuro moves all extremities and no focal motor deficits Speech: speech normal Psych affect normal Psych Narrative: Talkative, eye contact is good and patient interacts appropriately Assessment & Plan Assessment/Plan (1) GI bleed: QUALIFIERS: GI bleed type/associated pathology: unspecified gastrointestinal hemorrhage type Qualified Code(s): K92.2 - Gastrointestinal hemorrhage, unspecified (2) Acute anemia: PLAN: Plan GI bleed - CT performed and shows new focal hyperdensity in the diverticulum near the hepatic flexure -Question ischemic colitis -Patient now agreeable colonoscopy and will perform slow prep with full liquid diet today and clearliquid diet Tuesday and Tuesday with prep being initiated using MiraLAX on Tuesday - EGD was unremarkable for any findings consistent with GI bleed - Full liquid diet initiated - Continue to hold home aspirin - GI is following with plans for colonoscopy on Tuesday Acute anemia - Hemoglobin has been between 12 and 13 at baseline as of recently - Down to 8.5 on presentation and currently up to 9.4 after 4 units packed red blood cells - Patient has been transfused a total of 4 units since admission - Plan for colonoscopy on Tuesday - Repeat CBC in a.m. - GI is following Hypophosphatemia - IV sodium Phos replacement - Recheck in a.m. Hypokalemia - Oral 60 mEq p.o. potassium replacement - Recheck in a.m. Generalized weakness/debility - PT and OT are following - Patient did poorly - Plan is for discharge to skilled facility once medically stable-->after Tuesday GERD/history of GI bleed -Continue home PPI - Previous EGD performed in March 2020 for found 3 bleeding angiodysplastic lesions which were treated with heater probe For patient with cardiac murmur on exam his do suspect that set her up for increased risk of angiodysplastic lesion formation History of stroke - Hold home aspirin due to the above - Restart as able Essential hypertension - Restart home amlodipine as blood pressures are starting to trend up - Monitor for ability to restart hydralazine - Look to reinitiate once blood pressure shows stability History of cardiac arrhythmia - Patient has pacemaker Memory loss - documented Alzheimer's type dementia - Continue home memantine Restless leg syndrome - Continue home Mirapex History of breast cancer - DCIS - Outpatient follow-up Depression/anxiety - Continue Lexapro DVT prophylaxis - SCDs CODE STATUS - Full code Charges/Coding Visit Charges Inpatient E&M: 50114 Subs Hosp L2 10/19/24 1111 Cosigner Signature (if applicable): CC: ~ Signed [facility]07-03-2025 Progress note Author Ramonita Boothe [facility] Note Date/Time October 18, 2024 6:15p m [facility] Medical Records Department [address] [place] [address] Progress Note - Hospitalist 10/18/24 1811 MR#: [id number] Acct: [id number] Name: XAVIER RAHMAN Rep #:[id number] : 1940 84 From: Ramonita Boothe DO PCP: Dr. Jose Hdz MD Status:ADM IN Location: MS3 MU684-6 Reason for Visit Reason for Visit: Blood per rectum Subjective Subjective Patient states she is feeling well. Hemoglobin has fluctuated somewhat I suspect that hemoglobin from yesterday at 12 was an error. Hemoglobin is hovering between 7 and 8 currently. No signs of obvious bleeding. Discussed need for colonoscopy. Family at bedside and agree. Patient is amenable with slow prep. Objective Data Objective Data Vital Signs: Vital Signs Temp Pulse Resp BP Pulse Ox O2 Del Method O2 Flow Rate 97.5 F L 88 16 107/74 95 Room Air 2 10/18/24 17:53 10/18/24 17:53 10/18/24 17:53 10/18/24 17:53 10/18/24 17:53 10/18/24 17:53 10/18/24 06:38 Oxygen Flow Rate (L/min) 2 Oxygen Delivery Method Room Air Weight: 58.5 kg Body Mass Index (BMI) 22.8 Intake & Output: Intake and Output for Last 24 Hours 10/16/24 10/17/24 10/18/24 23:59 23:59 23:59 Intake Total 1100 / 1100 3238.25 / 3238.25 750 / 750 Output Total 2 / 2 Balance 1100 / 1100 3236.25 / 3236.25 750 / 750 Lab / Micro Data 10/18/24 14:50 10/17/24 06:25 Labs: Laboratory Results - last 24 hr 10/16/24 22:44: Crossmatch See Detail 10/18/24 04:34: WBC Cancelled, Corrected WBC Cancelled, RBC Cancelled, Hgb Cancelled, Hct Cancelled, MCV Cancelled, MCH Cancelled, MCHC Cancelled, RDW Std Deviation Cancelled, RDW Coeff of Kierra Cancelled, Plt Count Cancelled, MPV Cancelled, Immature Gran % (Auto) Cancelled, Neut % (Auto) Cancelled, Lymph % (Auto) Cancelled, [place] % (Auto) Cancelled, Eos % (Auto) Cancelled, Baso % (Auto)Cancelled, Absolute Neuts (auto) Cancelled, Absolute Lymphs (auto) Cancelled, Total Counted Cancelled, Neutrophils % (Manual) Cancelled, Band Neutrophils % Cancelled, Lymphocytes % (Manual) Cancelled, Monocytes % (Manual) Cancelled, Eosinophils % (Manual) Cancelled, Basophils % (Manual) Cancelled, Metamyelocytes% Cancelled, Myelocytes % Cancelled, Promyelocytes % Cancelled, Blast Cells % Cancelled, Plasma Cell % (Manual) Cancelled, Other Cells % Cancelled, Nucleated RBC % Cancelled, Nucleated RBCs/100 WBC Cancelled, Differential Comment Cancelled, Diff Path Review Cancelled, Hypersegmented Neuts Cancelled, Atypical Lymphocytes Cancelled, Reactive Lymphocytes Cancelled, Smudge Cells Cancelled, Toxic Granulation Cancelled, Toxic Vacuolation Cancelled, Dohle Bodies Cancelled, Sharon Rods Cancelled, Platelet Estimate Cancelled, Plt Morphology Comment Cancelled, RBC Morphology Cancelled 10/18/24 04:34: RBC Morphology Cancelled, Polychromasia Cancelled, HypochromasiaCancelled, Basophilic Stippling Cancelled, Anisocytosis Cancelled, Microcytosis Cancelled, Macrocytosis Cancelled, Spherocytes Cancelled, Sickle Cells Cancelled, Target Cells Cancelled, Tear Drop Cells Cancelled, Ovalocytes Cancelled, Stomatocytes Cancelled, Spivey-Corsica Bodies Cancelled, [place] Cells Cancelled, Bite Cells Cancelled, Crenated Cell Cancelled, Acanthocytes (Spur) Cancelled, Rouleaux Cancelled, Schistocytes Cancelled, Phosphorus 2.6 L 10/18/24 07:30: WBC 6.4, RBC 2.38 L, Hgb 6.8 L, Hct 20.6 L, MCV 86.6 D, MCH 28.6, MCHC 33.0, RDW Std Deviation 50.5 H, RDW Coeff of Kierra 16.1 H, Plt Count 156, MPV 10.1, Immature Gran % (Auto) 0.500, Neut % (Auto) 60.1, Lymph % (Auto) 21.2, [place] % (Auto) 12.5 H, Eos % (Auto) 5.1 H, Baso % (Auto) 0.6, Absolute Neuts (auto) 3.9, Absolute Lymphs (auto) 1.36, Nucleated RBC % 0 10/18/24 08:30: Hgb 7.3 L 10/18/24 14:50: Hgb 7.0 L Micro: Microbiology 10/16/24 21:56 Stool Stool Occult Blood (LOIS) - Final Occult Blood Positive Physical Exam Const alert, oriented x3, no apparent distress, average body habitus, healthy appearing and well nourished Constitutional Narrative: Elderly, white female, sitting up in a chair at the bedside, nursing and family at the bedside, appears comfortable, nontoxic, interacts appropriately General Appearance: cooperative HEENT normocephalic, head/scalp atraumatic and moist oral mucous membranes Resp normal respiratory effort, no retractions, no use of accessory muscles and clearto auscultation bilaterally Auscultation: Negative for rales, rhonchi or wheezes Cardio regular rate, regular rhythm, S1 normal heart sound, S2 normal heart sound, no rub, no gallops and no clicks; Negative for no murmurs Cardio Narrative: Patient with a 4-6 systolic murmur loudest at left lower sternal border GI normal to inspection, nondistended, normoactive bowel sounds, soft to palpation and non-tender Extremity no clubbing, cyanosis or edema Extremity Narrative: 2+ pedal pulses Neuro oriented x3, moves all extremities and no focal motor deficits Speech: speech normal Psych affect normal Psych Narrative: Talkative, eye contact is good and patient interacts appropriately Assessment & Plan Assessment/Plan (1) GI bleed: QUALIFIERS: GI bleed type/associated pathology: unspecified gastrointestinal hemorrhage type Qualified Code(s): K92.2 - Gastrointestinal hemorrhage, unspecified (2) Acute anemia: PLAN: Plan GI bleed - CT performed and shows new focal hyperdensity in the diverticulum near the hepatic flexure -Question ischemic colitis -Patient now agreeable colonoscopy and will perform slow prep with full liquid diet tomorrow and clear liquid diet Tuesday and Tuesday with prep being initiated using MiraLAX on Tuesday - EGD was unremarkable for any findings consistent with GI bleed - Discontinue Protonix drip - Continue to hold home aspirin - GI is following with plans for colonoscopy on Tuesday Acute anemia - Hemoglobin has been between 12 and 13 at baseline as of recently - Down to 8.5 on presentation - Was transfused 2 units packed blood blood cells and hemoglobin was documented up to 12 after transfusion however I suspect this may be a spurious result as repeat hemoglobin today has not been that high and been in the 7-8 range -Plan for colonoscopy on Tuesday - Repeat CBC in a.m. - GI is following Non-anion gap metabolic acidosis - Resolved Generalized weakness/debility - PT and OT are following - Patient did poorly - Plan is for discharge to skilled facility once medically stable GERD/history of GI bleed - Restart home oral PPI - Previous EGD performed in March 2020 for found 3 bleeding angiodysplastic lesions which were treated with heater probe For patient with cardiac murmur on exam his do suspect that set her up for increased risk of angiodysplastic lesion formation History of stroke - Hold home aspirin due to the above - Restart as able Essential hypertension - Continue to hold home antihypertensives - Look to reinitiate once blood pressure shows stability History of cardiac arrhythmia - Patient has pacemaker Memory loss -documented Alzheimer's type dementia - Continue home memantine Restless leg syndrome - Continue home Mirapex History of breast cancer - DCIS - Outpatient follow-up Depression/anxiety - Continue Lexapro DVT prophylaxis - SCDs CODE STATUS - Full code Charges/Coding Visit Charges Inpatient E&M: 20533 Subs Hosp L2 10/18/241814 <Electronically signed by Ramonita Boothe DO> Cosigner Signature (if applicable): CC: ~ Signed [facility] Work Phone: 1(771) 799-822407-03-2025 Progress note [facility] Medical Records Department [address] [place] [address] Progress Note - Hospitalist 10/18/24 181 MR#: [id number] Acct: [id number] Name: XAVIER RAHMAN Rep #:[id number] : 1940 84 From: Ramonita Boothe DO PCP: Dr. Jose Hdz MD Status:ADM IN Location: VA3 [id number] Reason for Visit Reason for Visit: Blood per rectum Subjective Subjective Patient states she is feeling well. Hemoglobin has fluctuated somewhat I suspect that hemoglobin from yesterday at 12 was an error. Hemoglobin is hovering between 7 and 8 currently. No signs of obvious bleeding. Discussed need for colonoscopy. Family at bedside and agree. Patient is amenable with slow prep. Objective Data Objective Data Vital Signs: Vital Signs Temp Pulse Resp BP Pulse Ox O2 Del Method O2 Flow Rate 97.5 F L 88 16 107/74 95 Room Air 2 10/18/24 17:53 10/18/24 17:53 10/18/24 17:53 10/18/24 17:53 10/18/24 17:53 10/18/24 17:53 10/18/24 06:38 Oxygen Flow Rate (L/min) 2 Oxygen Delivery Method Room Air Weight: 58.5 kg Body Mass Index (BMI) 22.8 Intake & Output: Intake and Output for Last 24 Hours 10/16/24 10/17/24 10/18/24 23:59 23:59 23:59 Intake Total 1100 / 1100 3238.25 / 3238.25 750 / 750 Output Total 2 / 2 Balance 1100 / 1100 3236.25 / 3236.25 750 / 750 Lab / Micro Data 10/18/24 14:50 10/17/24 06:25 Labs: Laboratory Results - last 24 hr 10/16/24 22:44: Crossmatch See Detail 10/18/24 04:34: WBC Cancelled, Corrected WBC Cancelled, RBC Cancelled, Hgb Cancelled, Hct Cancelled, MCV Cancelled, MCH Cancelled, MCHC Cancelled, RDW Std Deviation Cancelled, RDW Coeff of Kierra Cancelled, Plt Count Cancelled, MPV Cancelled, Immature Gran % (Auto) Cancelled, Neut % (Auto) Cancelled, Lymph % (Auto) Cancelled, [place] % (Auto) Cancelled, Eos % (Auto) Cancelled, Baso % (Auto)Cancelled, Absolute Neuts (auto) Cancelled, Absolute Lymphs (auto) Cancelled, Total Counted Cancelled, Neutrophils % (Manual) Cancelled, Band Neutrophils % Cancelled, Lymphocytes % (Manual) Cancelled, Monocytes %(Manual) Cancelled, Eosinophils % (Manual) Cancelled, Basophils % (Manual) Cancelled, Metamyelocytes% Cancelled, Myelocytes % Cancelled, Promyelocytes % Cancelled, Blast Cells % Cancelled, Plasma Cell % (Manual) Cancelled, Other Cells % Cancelled, Nucleated RBC % Cancelled, Nucleated RBCs/100 WBC Cancelled, Differential Comment Cancelled, Diff Path Review Cancelled, Hypersegmented Neuts Cancelled, Atypical Lymphocytes Cancelled, Reactive Lymphocytes Cancelled, Smudge Cells Cancelled, Toxic Granulation Cancelled, Toxic Vacuolation Cancelled, Dohle Bodies Cancelled, Sharon Rods Cancelled, Platelet Estimate Cancelled, Plt Morphology Comment Cancelled, RBC Morphology Cancelled 10/18/24 04:34: RBC Morphology Cancelled, Polychromasia Cancelled, HypochromasiaCancelled, Basophilic Stippling Cancelled, Anisocytosis Cancelled, Microcytosis Cancelled, Macrocytosis Cancelled, Spherocytes Cancelled, Sickle Cells Cancelled, Target Cells Cancelled, Tear Drop Cells Cancelled, Ovalocytes Cancelled, Stomatocytes Cancelled, Spivey-Corsica Bodies Cancelled, John Cells Cancelled, Bite Cells Cancelled, Crenated Cell Cancelled, Acanthocytes (Spur) Cancelled, Rouleaux Cancelled, Schistocytes Cancelled, Phosphorus 2.6 L 10/18/24 07:30: WBC 6.4, RBC 2.38 L, Hgb 6.8 L, Hct 20.6 L, MCV 86.6 D, MCH 28.6, MCHC 33.0, RDW Std Deviation 50.5 H, RDW Coeff of Kierra 16.1 H, Plt Count 156, MPV 10.1, Immature Gran % (Auto) 0.500, Neut % (Auto) 60.1, Lymph % (Auto) 21.2, [place] % (Auto) 12.5 H, Eos % (Auto) 5.1 H, Baso % (Auto) 0.6, Absolute Neuts (auto) 3.9, Absolute Lymphs (auto) 1.36, Nucleated RBC % 0 10/18/24 08:30: Hgb 7.3 L 10/18/24 14:50: Hgb 7.0 L Micro: Microbiology 10/16/24 21:56 Stool Stool Occult Blood (LOIS) - Final Occult Blood Positive Physical Exam Const alert, oriented x3, no apparent distress, average body habitus, healthy appearing and well nourished Constitutional Narrative: Elderly, white female, sitting up in a chair at the bedside, nursing and family at the bedside, appears comfortable, nontoxic, interacts appropriately General Appearance: cooperative HEENT normocephalic, head/scalp atraumatic and moist oral mucous membranes Resp normal respiratory effort, no retractions, no use of accessory muscles and clearto auscultation bilaterally Auscultation: Negative for rales, rhonchi or wheezes Cardio regular rate, regular rhythm, S1 normal heart sound, S2 normal heart sound, no rub, no gallops and no clicks; Negative for no murmurs Cardio Narrative: Patient with a 4-6 systolic murmur loudest at left lower sternal border GI normal to inspection, nondistended, normoactive bowel sounds, soft to palpation and non-tender Extremity no clubbing, cyanosis or edema Extremity Narrative: 2+ pedal pulses Neuro oriented x3, moves all extremities and no focal motor deficits Speech: speech normal Psych affect normal Psych Narrative: Talkative, eye contact is good and patient interacts appropriately Assessment & Plan Assessment/Plan (1) GI bleed: QUALIFIERS: GI bleed type/associated pathology: unspecified gastrointestinal hemorrhage type Qualified Code(s): K92.2 - Gastrointestinal hemorrhage, unspecified (2) Acute anemia: PLAN: Plan GI bleed - CT performed and shows new focal hyperdensity in the diverticulum near the hepatic flexure -Question ischemic colitis -Patient now agreeable colonoscopy and will perform slow prep with full liquid diet tomorrow and clear liquid diet Tuesday and Tuesday with prep being initiated using MiraLAX on Tuesday - EGD was unremarkable for any findings consistent with GI bleed - Discontinue Protonix drip - Continue to hold home aspirin - GI is following with plans for colonoscopy on Tuesday Acute anemia - Hemoglobin has been between 12 and 13 at baseline as of recently - Down to 8.5 on presentation - Was transfused 2 units packed blood blood cells and hemoglobin was documented up to 12 after transfusion however I suspect this may be a spurious result as repeat hemoglobin today has not been thathigh and been in the 7-8 range -Plan for colonoscopy on Tuesday - Repeat CBC in a.m. - GI is following Non-anion gap metabolic acidosis - Resolved Generalized weakness/debility - PT and OT are following - Patient did poorly - Plan is for discharge to skilled facility once medically stable GERD/history of GI bleed - Restart home oral PPI - Previous EGD performed in March 2020 for found 3 bleeding angiodysplastic lesions which were treated with heater probe For patient with cardiac murmur on exam his do suspect that set her up for increased risk of angiodysplastic lesion formation History of stroke - Hold home aspirin due to the above - Restart as able Essential hypertension - Continue to hold home antihypertensives - Look to reinitiate once blood pressure shows stability History of cardiac arrhythmia - Patient has pacemaker Memory loss -documented Alzheimer's type dementia - Continue home memantine Restless leg syndrome - Continue home Mirapex History of breast cancer - DCIS - Outpatient follow-up Depression/anxiety - Continue Lexapro DVT prophylaxis - SCDs CODE STATUS - Full code Charges/Coding Visit Charges Inpatient E&M: 63234 Subs Hosp L2 10/18/241814 Cosigner Signature (if applicable): CC: ~ Signed [facility]07-02-2025 Consult note Author Naman Tsang [facility] Note Date/Time October 17, 2024 2:50p [facility] Medical Records Department [address] [place] [address] Anesthesia Postop Eval II 10/17/24 1450 MR#: [id number] Acct: [id number] Name: XAVIER RAHMAN Rep #:[id number] : 1940 84 From: Naman SHAH PCP: Dr. Jose Hdz MD Status:ADM IN Y Race: C Location: ICU CVICU Anesthesia Postop Eval I Sum Postop Eval Completion status Anesthesia document: Postop Eval 1 completed: Yes Anesthesia Postop Eval I Summary Anesthesia Postop Eval I Summary: Anesthesia Postop Eval I: Assessment Summary Airway patent Yes 10/17/24 13:01 [email or web address] Spontaneous unlabored Yes 10/17/24 13:01 [email or web address] respirations Mental status Awake,Calm 10/17/24 13:01 [email or web address] nausea No 10/17/24 13:01 [email or web address] Vomiting No 10/17/24 13:01 [email or web address] Anesthesia Postop Eval I: Fluid Summary Crystalloid volume administer 300 10/17/24 13:01 [email or web address] (ml) Colloids volume administered ( ml) Blood Product volume administered (ml) Total IV fluid infused 300 10/17/24 13:01 [email or web address] Anesthesia Postop Eval I: Summary Notes Anesthesia Complication No 10/17/24 13:01 [email or web address] Anesthesia Complication Comment: Post-operative progress note Anesthesia: Postop Eval II Evaluation Mental status: Awake Pain Level: 0 nausea: No Vomiting: No 10/17/24 1450 <Electronically signed by Naman Tsang CRNA> Date _ Naman Tsang BEHAVIORAL ANALYST Cosigner Signature: Date CC: ~ Signed [facility] Work Phone: 1(871) 273-855407-02-2025 Progress note Author Ramonita Boothe [facility] Note Date/Time October 17, 2024 2:31p m [facility] Medical Records Department [address] [place] [address] Progress Note - Hospitalist 10/17/24 0734 MR#: [id number] Acct: [id number] Name: XAVIER RAHMAN Rep #:[id number] : 1940 84 From: Ramonita Boothe DO PCP: Dr. Jose Hdz MD Status:ADM IN [facility] Reason for Visit Reason for Visit: Dark stools Subjective Subjective Patient with history of angiodysplastic lesions. 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 Patient declining colonoscopy. She states she did not tolerate prep and does not want to pursue colonoscopy but is agreeable to EGD which we will perform later today. Objective Data Objective Data Vital Signs: Vital Signs Temp Pulse Resp BP Pulse Ox O2 Del Method 98.1 F 72 20 H 125/54 H 97 Room Air 10/17/24 04:26 10/17/24 07:00 10/17/24 07:00 10/17/24 07:00 10/17/24 07:00 10/17/24 07:00 Oxygen Delivery Method Room Air Weight: 58.5 kg Body Mass Index (BMI) 22.8 Intake & Output: Intake and Output for Last 24 Hours 10/15/24 10/16/24 10/17/24 23:59 23:59 23:59 Intake Total 1100 / 1100 800 / 800 Balance 1100 / 1100 800 / 800 Lab / Micro Data 10/17/24 06:25 10/17/24 06:25 Labs: Laboratory Results - last 24 hr 10/16/24 21:56: WBC 7.8, RBC 3.11 L, Hgb 8.5 L, Hct 26.7 L, MCV 85.9, MCH 27.3, MCHC 31.8 L, RDW Std Deviation 46.7 H, RDW Coeff of Kierra 14.9 H, Plt Count 218, MPV 10.2, Immature Gran % (Auto) 0.400, Neut % (Auto) 65.4, Lymph % (Auto) 20.5,[place] % (Auto) 10.7 H, Eos % (Auto) 2.2, Baso % (Auto) 0.8, Absolute Neuts (auto)5.1, Absolute Lymphs (auto) 1.60, Nucleated RBC % 0, Sodium 135, Potassium 3.3, Chloride 100, Carbon Dioxide 22.7, Anion Gap 13, BUN 38 H, Creatinine 1.01, Estim Creat Clear Calc 34.30 L, Est GFR (MDRD) Non-Af 55 L, BUN/Creatinine Ratio 37.8 H, Glucose 139 H, Lactic Acid 1.8, Calcium 9.2, Total Bilirubin 0.27, AST 18, ALT 13, Alkaline Phosphatase 60, Total Protein 6.1, Albumin 3.8, Globulin 2.3, Albumin/Globulin Ratio 1.6, Lipase 54 10/16/24 22:44: Blood Type O POSITIVE, Antibody Screen POSITIVE, Antibody Identification ANTI-E, Crossmatch See Detail 10/17/24 00:14: Lactic Acid 1.0, Magnesium 1.9, Iron 20 L, TIBC 299, Iron Saturation 7.0 L, Unsaturated IBC 279, Ferritin 23 Micro: Microbiology 10/16/24 21:56 Stool Stool Occult Blood (LOIS) - Final Occult Blood Positive Radiography Diagnostic Testing: Radiology Impression Abdomen/Pelvis CTA 10/16/24 22:10 IMPRESSION: 1. There is new focal hyperdensity [...] 2.2 cm, also unchanged. 5. Hepatic steatosis. [place] Alert: Possible GI bleed The critical information above was relayed directly by me by telephone to Ketan Couch on 10/16/2024 at 10:33 pm with readback verification. Reading Location: [facility] Physical Exam Const alert, oriented x3, no apparent distress, average body habitus and well nourished Constitutional Narrative: Elderly, white female, sitting up in a chair at the bedside, nursing at bedside,appears comfortable, nontoxic, interacts appropriately HEENT head/scalp atraumatic and moist oral mucous membranes HEENT Narrative: Mallampati 2, no thrush Head and Scalp: normocephalic Resp normal respiratory effort, no retractions, no use of accessory muscles and clearto auscultation bilaterally Auscultation: Negative for rales, rhonchi or wheezes Cardio regular rate, regular rhythm, S1 normal heart sound, S2 normal heart sound, no rub, no gallops and no clicks; Negative for no murmurs Cardio Narrative: Patient with a 4-6 systolic murmur loudest at left lower sternal border GI normal to inspection, nondistended, normoactive bowel sounds, soft to palpation and non-tender Extremity no clubbing, cyanosis or edema Extremity Narrative: 2+ pedal pulses Neuro moves all extremities and no focal motor deficits Speech: speech normal Psych affect normal Psych Narrative: Talkative, eye contact is good and patient interacts appropriately Assessment & Plan Assessment/Plan (1) GI bleed: QUALIFIERS: GI bleed type/associated pathology: unspecified gastrointestinal hemorrhage type Qualified Code(s): K92.2 - Gastrointestinal hemorrhage, unspecified (2) Acute anemia: PLAN: Plan GI bleed - CT performed and shows new focal hyperdensity in the diverticulum near the hepatic flexure -Question ischemic colitis - Ruins colored stool with positive guaiac in emergency department - Continue Protonix drip - Patient refusing colonoscopy but amenable to EGD - Previously had angiodysplastic lesions in the upper GI tract -Hold home aspirin - GI consultation is pending Acute anemia - Hemoglobin has been between 12 and 13 at baseline as of recently - Down to 8.5 on presentation - Was transfused 2 units packed blood blood cells and hemoglobin is now back up to 12 - Continue Protonix drip - Repeat CBC in a.m. - GI consultation pending - Patient refuses colonoscopy but amenable to EGD Non-anion gap metabolic acidosis - Serum bicarb is 16 next-suspect related to elevated chloride - Stop IV fluids - Repeat lab in a.m. - Patient's mentation is good and shows no signs of severe acidosis GERD/history of GI bleed - Continue continue Protonix but IV drip for now until EGD performed - Previous EGD performed in March 2020 for found 3 bleeding angiodysplastic lesions which were treated with heater probe For patient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 Slight ectasia of the infrarenal abdominal aorta measuring up to ~2.2 cm also unchanged with hepatic steatosis. ER physician noted maroon stool on gloved finger. She was then admitted to the ICU for ongoing care for stay that is expected to extend beyond 2 midnights. [facility] Medical History Anemia GI bleed History of COPD Head injury [...] Medications ?Medication ?Instructions ?Recorded ?Last Taken ?Type pramipexole 1.5 mg tablet 1.5 mg PO [...] 5 mg PO QPM 07/15/24 07/14/24 History aspirin 81 mg capsule 81 mg PO DAILY 30 days #30 c aps 07/17/24 Unknown Rx docusate sodium 100 mg capsule 100 mg PO QHS constipat ion 10/16/24 Unknown History hydralazine 10 mg tablet 10 mg PO BID PRN PRN blood p ressure 10/16/24 Unknown History Allergy/AdvReac Type Severity Reaction Status Date / Time lisinopril Allergy Mild cough Verified 10/16/24 19:21 alendronate sodium (From Allergy Unknown unknown Verified 10/16/24 19:21 Fosamax) Sulfa (Sulfonamide Allergy Rash Verified 10/16/24 19:21 Antibiotics) atorvastatin (From Lipitor) AdvReac Mild muscle Verified 10/16/24 19:21 aches rosuvastatin (From Crestor) AdvReac Mild muscle Verified 10/16/24 19:21 aches codeine AdvReac Nausea Verified 10/16/24 19:21 NSAIDS (Non-Steroidal AdvReac Bleeding Verified 10/16/24 19:21 Anti-Inflamma Family History Mother Heart disease CVA [...] prior no substance use. ROS ROS Narrative Review of Systems: Constitutional: Patient denies fever or chills. Eyes: Patient denies change in vision or discharge from eyes. ENT: Patient denies runny nose, sore throat or ear pain. Resp: Patient denies shortness of breath or cough. CV: Patient denies chest pain, palpitations, heart racing or lower extremity edema. GI: Patient admits to severe constipation followed by LGIB with BRBPR followed by dark stools as per HPI. : Patient denies dysuria or hematuria. MSK: Patient denies arthralgias or myalgias. Skin: Patient denies rash, abscess, wounds or jaundice. Psych: Patient denies symptoms of uncontrolled depression or anxiety. Neuro: Patient denies headache, paresthesias or focal neurologic deficits. Allergy: Patient denies lip swelling, tongue swelling or urticaria. Hematology: Patient admits to recent GI bleeding on baby aspirin as per HPI. Endocrinology: Patient denies polyuria, polydipsia, polyphagia or heat/cold intolerance. 14 point ROS otherwise negative except for positives noted above in HPI. Vital Signs Vital Signs Vital Signs: 10/16/24 19:21 10/16/24 21:00 10/16/24 22:00 Temperature 97 F L Temperature Source Temporal Pulse Rate 97 76 78 Respiratory Rate 14 16 16 Blood Pressure 105/51 L 138/69 H 98/82 H Blood Pressure Mean 69 92 87 Pulse Ox 100 98 100 Oxygen Delivery Method Room Air Room Air Room Air 10/16/24 22:55 Temperature 97.6 F L Temperature Source Pulse Rate 74 Respiratory Rate 14 Blood Pressure 120/85 H Blood Pressure Mean 96 Pulse Ox 97 Oxygen Delivery Method Weight Weight: 134 lb 0.657 oz Body Mass Index (BMI) 23.7 Physical Exam Const alert, oriented x3, no apparent distress, average body habitus and healthy appearing General Appearance: cooperative HEENT normocephalic, head/scalp atraumatic and hearing grossly normal bilaterally HEENT Narrative: Mucous membranes dry. Eyes PERRL, EOMs intact bilaterally and conjunctivae normal Neck no lymphadenopathy, supple and no JVD Resp normal respiratory effort, no retractions, no use of accessory muscles and clearto auscultation bilaterally Cardio regular rate and regular rhythm GI normal to inspection, nondistended, normoactive bowel sounds, soft to palpation,non-tender and non-distended GI Narrative: Patient was noted to have maroon stool on gloved finger by ER physician. Extremity normal to inspection, full ROM and no clubbing, cyanosis or edema Skin Skin Narrative: Patient has no evidence of rash, abscess, wounds or jaundice. Neuro oriented x3, CN's II-XII intact bilaterally, moves all extremities and no focal motor deficits Sensorium / Orientation: awake, alert, oriented to person, oriented to place andoriented to time Speech: speech normal Psych affect normal Results Medical Records Data Attestation: I reviewed the patient's medical records Lab / Micro Data Attestation: I reviewed the patient's lab results. 10/16/24 21:56 10/16/24 21:56 Labs: Laboratory Results - last 24 hr 10/16/24 21:56: WBC 7.8, RBC 3.11 L, Hgb 8.5 L, Hct 26.7 L, MCV 85.9, MCH 27.3, MCHC 31.8 L, RDW Std Deviation 46.7 H, RDW Coeff of Kierra 14.9 H, Plt Count 218, MPV 10.2, Immature Gran % (Auto) 0.400, Neut % (Auto) 65.4, Lymph % (Auto) 20.5,[place] % (Auto) 10.7 H, Eos % (Auto) 2.2, Baso % (Auto) 0.8, Absolute Neuts (auto)5.1, Absolute Lymphs (auto) 1.60, Nucleated RBC % 0, Sodium 135, Potassium 3.3, Chloride 100, Carbon Dioxide 22.7, Anion Gap 13, BUN 38 H, Creatinine 1.01, Estim Creat Clear Calc 34.30 L, Est GFR (MDRD) Non-Af 55 L, BUN/Creatinine Ratio 37.8 H, Glucose 139 H, Lactic Acid 1.8, Calcium 9.2, Total Bilirubin 0.27, AST 18, ALT 13, Alkaline Phosphatase 60, Total Protein 6.1, Albumin 3.8, Globulin 2.3, Albumin/Globulin Ratio 1.6, Lipase 54 Micro: Microbiology 10/16/24 21:56 Stool Stool Occult Blood (LOIS) - Final Occult Blood Positive Imaging Radiology Impression Abdomen/Pelvis CTA 10/16/24 22:10 IMPRESSION: 1. There is new focal hyperdensity [...] 2.2 cm, also unchanged. 5. Hepatic steatosis. [place] Alert: Possible GI bleed The critical information above was relayed directly by me by telephone to Ketan Couch on 10/16/2024 at 10:33 pm with readback verification. Reading Location: [id number] Assessment & Plan Assessment/Plan (1) GI bleed: QUALIFIERS: GI bleed type/associated pathology: unspecified gastrointestinal hemorrhage type Qualified Code(s): K92.2 - Gastrointestinal hemorrhage, unspecified (2) Acute blood loss anemia: (3) Adverse drug reaction: QUALIFIERS: Encounter type: initial encounter Qualified Code(s): T50.905A - Adverse effect of unspecified drugs, medicaments and biological substances, initial encounter (4) History of GI bleed: (5) Diverticular disease: (6) History of angiodysplasia of intestinal tract: (7) GERD (gastroesophageal reflux disease): QUALIFIERS: Esophagitis presence: esophagitis presence not specified Qualified Code(s): K21.9 - Gastro-esophageal reflux disease without esophagitis PLAN: Plan 1. Suspected Upper and Lower GI Bleed with ABLA evidenced by hemoglobin of 8.5 g/dL (down from 12.6 g/dL on July 26, 2024) with elevated BUN of 38 mg/dL present on admission and CT scan of the abdomen revealing new focal hyperdensitywithin a diverticulum near the hepatic flexure for which gastrointestinal bleeding is not excluded with GI consultation recommended with the ER physician noting maroon stool on gloved finger - Admit to ICU. Keep strict NPO. Continuepantoprazole IV infusion began in ER. Give IV ondansetron as needed for nausea vomiting. Type & screen blood and transfuse for hemoglobin less than 7 g/dL. Check iron levels and ferritin. Patient was ordered Go-Lytely bowel prep in preparation for colonoscopy. Finally, Dr. Winslow of gastroenterology was contacted by the ER with formal consultation pending in the a.m. and appreciatedin advance. 2. Adverse Drug Reaction to baby aspirin likely precipitating #1 - Prieto chino has had her dose of aspirin decreased in the past and now likely needs to be permanently discontinued to avoid recurrent GI bleeds. 3. History of GI bleed; with previous evaluation by Dr. Winslow of gastroenterology with a EGD performed in March 2024 for patient found to have3 actively bleeding angiodysplastic lesions in the stomach treated with heater probe complicating #1 & #2 - Noted with suspected recurrence. 4. GERD; on pantoprazole adding to the medical complexity of #1 - #3 - Patient on pantoprazole IV infusion for #1. 5. Essential hypertension; on amlodipine, valsartan-hydrochlorothiazide and prnhydralazine BID - Hold scheduled antihypertensives in light of #1. 6. History of CVA/TIA - Noted with no evidence of recurrence at this time. Patient was taking baby aspirin for this issue but now risks outweigh any potential benefits. 7. History of Alzheimer's dementia; on memantine - Restart this agent when patient is cleared for oral intake by GI. 8. History of arrhythmia; s/p PPM - Noted. 9. Depression with anxiety; on escitalopram - Restart escitalopram when patientis cleared for oral intake. 10. History of DCIS; s/p lumpectomy of the Right breast - Noted. 11. ZONIA - Avoid CPAP at this time in an effort to prevent insufflating bowel which may exacerbate #1. 12. OA; with history of Right THR - Stable. 13. DVT prophylaxis - SCD's only in light of #1. Total time: Approximately (but not less than) 75 minutes. Charges/Coding Visit Charges Inpatient E&M: 66270 Init Hosp L3 10/17/24 0608 <Electronically signed by Lamin Ritter DO> Cosigner Signature (if applicable): CC: Dr. Lamin Ritter DO; Dr. Jose Hdz MD~ Signed [facility] Work Phone: [phone]) 173-404407-02-2025 History and physical note [facility] Medical Records Department [address] [place] [id number] H&P Exam - Hospitalist 10/16/24 2314 MR#: [id number] Acct: [id number] Name: XAVIER RAHMAN Rep #:[id number] : 1940 84 From: Lamin Johnson DO PCP: Dr. Jose Hdz MD Status:ADM IN Location: ICU CVICU20 2-1 HPI - General General Date of Admission: 10/17/24 Date of Service: 10/16/24 Chief Complaint: GI Bleed with Dark Stools. HPI Narrative XAVIER RAHMAN, is a 84 F with a past medical history of essential hypertension; onamlodipine, valsartan-hydrochlorothiazide and prn hydralazine BID, history of CVA/TIA, history of Alzheimer's dementia;on memantine, history of GI bleed; with previous evaluation by Dr. Winslow of gastroenterology with a EGD performed in March 2024 with patient found to have 3 actively bleeding angiodysplastic lesions in the stomach treated with heater probe, GERD; on pantoprazole, historyof arrhythmia; s/p PPM, depression with anxiety; on escitalopram, history of DCIS; s/p lumpectomy of the Right breast, ZONIA, and OA; with history of Right THRwho presents to [facility] ER complaining of GI bleed with dark stools. Ms. Rahman reports her symptoms began several days prior to admission initially starting with severeconstipation lasting multiple days. She states that she then had a bowel movement yesterday with BRBPR. Subsequently she has continued to have bowel movements throughout the day that are more dark incolor so she decided to come in for further evaluation and treatment. She admits to intermittent abdominal pain that is cramping and moderate in nature. She does take daily baby aspirin but she denies current anticoagulation. There was no report of fever, chills, vomiting, diarrhea, chest pain, palpitations, heart racing, shortness of breath, cough, headache or rash. 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 Slight ectasia of the infrarenal abdominal aorta measuring up to ~2.2 cm also unchanged with hepatic steatosis. ER physician noted maroon stool on gloved finger. She was then ad mitted to the ICU for ongoing care for stay that is expected to extend beyond 2 midnights. [facility] Medical History Anemia GI bleed History of COPD Head injury [...] Medications ?Medication ?Instructions ?Recorded ?Last Taken ?Type pramipexole 1.5 mg tablet 1.5 mg PO DAILY 10/16/22 History valsartan 320 1 tab PO DAILY 10/16/22/01/10 History mg-hydrochlorothiazide 25 mg tablet memantine 10 [...] 5 mg PO QPM 07/15/24 07/14/24 History aspirin 81 mg capsule 81 mg PO DAILY 30 days #30 c aps 07/17/24 Unknown Rx docusate sodium 100 mg capsule 100 mg PO QHS constipat ion 10/16/24 Unknown History hydralazine 10 mg tablet 10 mg PO BID PRN PRN blood p ressure 10/16/24 Unknown History Allergy/AdvReac Type Severity Reaction Status Date / Time lisinopril Allergy Mild cough Verified 10/16/24 19:21 alendronate sodium (From Allergy Unknown unknown Verified 10/16/24 19:21 Fosamax) Sulfa (Sulfonamide Allergy Rash Verified 10/16/24 19:21 Antibiotics) atorvastatin (From Lipitor) AdvReac Mild muscle Verified 10/16/24 19:21 aches rosuvastatin (From Crestor) AdvReac Mild muscle Verified 10/16/24 19:21 aches codeine AdvReac Nausea Verified 10/16/24 19:21 NSAIDS (Non-Steroidal AdvReac Bleeding Verified 10/16/24 19:21 Anti-Inflamma Family History Mother Heart disease CVA [...] prior no substance use. ROS ROS Narrative Review of Systems: Constitutional: Patient denies fever or chills. Eyes: Patient denies change in vision or discharge from eyes. ENT: Patient denies runny nose, sore throat or ear pain. Resp: Patient denies shortness of breath or cough. CV: Patient denies chest pain, palpitations, heart racing or lower extremity edema. GI: Patient admits to severe constipation followed by LGIB with BRBPR followed by dark stools as per HPI. : Patient denies dysuria or hematuria. MSK: Patient denies arthralgias or myalgias. Skin: Patient denies rash, abscess, wounds or jaundice. Psych: Patient denies symptoms of uncontrolled depression or anxiety. Neuro: Patient denies headache, paresthesias or focal neurologic deficits. Allergy: Patient denies lip swelling, tongue swelling or urticaria. Hematology: Patient admits to recent GI bleeding on baby aspirin as per HPI. Endocrinology: Patient denies polyuria, polydipsia, polyphagia or heat/cold intolerance. 14 point ROS otherwise negative except for positives noted above in HPI. Vital Signs Vital Signs Vital Signs: 10/16/24 19:21 10/16/24 21:00 10/16/24 22:00 Temperature 97 F L Temperature Source Temporal Pulse Rate 97 76 78 Respiratory Rate 14 16 16 Blood Pressure 105/51 L 138/69 H 98/82 H Blood Pressure Mean 69 92 87 Pulse Ox 100 98 100 Oxygen Delivery Method Room Air Room Air Room Air 10/16/24 22:55 Temperature 97.6 F L Temperature Source Pulse Rate 74 Respiratory Rate 14 Blood Pressure 120/85 H Blood Pressure Mean 96 Pulse Ox 97 Oxygen Delivery Method Weight Weight: 134 lb 0.657 oz Body Mass Index (BMI) 23.7 Physical Exam Const alert, oriented x3, no apparent distress, average body habitus and healthy appearing General Appearance: cooperative HEENT normocephalic, head/scalp atraumatic and hearing grossly normal bilaterally HEENT Narrative: Mucous membranes dry. Eyes PERRL, EOMs intact bilaterally and conjunctivae normal Neck no lymphadenopathy, supple and no JVD Resp normal respiratory effort, no retractions, no use of accessory muscles and clearto auscultation bilaterally Cardio regular rate and regular rhythm GI normal to inspection, nondistended, normoactive bowel sounds, soft to palpation,non-tender and non-distended GI Narrative: Patient was noted to have maroon stool on gloved finger by ER physician. Extremity normal to inspection, full ROM and no clubbing, cyanosis or edema Skin Skin Narrative: Patient has no evidence of rash, abscess, wounds or jaundice. Neuro oriented x3, CN's II-XII intact bilaterally, moves all extremities and no focal motor deficits Sensorium / Orientation: awake, alert, oriented to person, oriented to place andoriented to time Speech: speech normal Psych affect normal Results Medical Records Data Attestation: I reviewed the patient's medical records Lab / Micro Data Attestation: I reviewed the patient's lab results. 10/16/24 21:56 10/16/24 21:56 Labs: Laboratory Results - last 24 hr 10/16/24 21:56: WBC 7.8, RBC 3.11 L, Hgb 8.5 L, Hct 26.7 L, MCV 85.9, MCH 27.3, MCHC 31.8 L, RDW Std Deviation 46.7 H, RDW Coeff of Kierra 14.9 H, Plt Count 218, MPV 10.2, Immature Gran % (Auto) 0.400, Neut % (Auto) 65.4, Lymph % (Auto) 20.5,[place] % (Auto) 10.7 H, Eos % (Auto) 2.2, Baso % (Auto) 0.8, Absolute Neuts (auto)5.1, Absolute Lymphs (auto) 1.60, Nucleated RBC % 0, Sodium 135, Potassium 3.3, Chloride 100, Carbon Dioxide 22.7, Anion Gap 13, BUN 38 H, Creatinine 1.01, Estim Creat Clear Calc 34.30 L, Est GFR (MDRD) Non-Af 55 L, BUN/Creatinine Ratio 37.8 H, Glucose 139 H, Lactic Acid 1.8, Calcium 9.2, Total Bilirubin 0.27, AST 18, ALT 13, Alkaline Phosphatase 60, Total Protein 6.1, Albumin 3.8, Globulin 2.3, Albumin/Globulin Ratio 1.6, Lipase 54 Micro: Microbiology 10/16/24 21:56 Stool Stool Occult Blood (LOIS) - Final Occult Blood Positive Imaging Radiology Impression Abdomen/Pelvis CTA 10/16/24 22:10 IMPRESSION: 1. There is new focal hyperdensity [...] 2.2 cm, also unchanged. 5. Hepatic steatosis. [place] Alert: Possible GI bleed The critical information above was relayed directly by me by telephone to Ketan Couch on 10/16/2024 at 10:33 pm with readback verification. Reading Location: [id number] Assessment & Plan Assessment/Plan (1) GI bleed: QUALIFIERS: GI bleed type/associated pathology: unspecified gastrointestinal hemorrhage type Qualified Code(s): K92.2 - Gastrointestinal hemorrhage, unspecified (2) Acute blood loss anemia: (3) Adverse drug reaction: QUALIFIERS: Encounter type: initial encounter Qualified Code(s): T50.905A - Adverse effect of unspecified drugs, medicaments and biological substances, initial encounter (4) History of GI bleed: (5) Diverticular disease: (6) History of angiodysplasia of intestinal tract: (7) GERD (gastroesophageal reflux disease): QUALIFIERS: Esophagitis presence: esophagitis presence not specified Qualified Code(s): K21.9 - Gastro-esophageal reflux disease without esophagitis PLAN: Plan 1. Suspected Upper and Lower GI Bleed with ABLA evidenced by hemoglobin of 8.5 g/dL (down from 12.6g/dL on July 26, 2024) with elevated BUN of 38 mg/dL present on admission and CT scan of the abdomen revealing new focal hyperdensitywithin a diverticulum near the hepatic flexure for which gastroint estinal bleeding is not excluded with GI consultation recommended with the ER physician noting maroon stool on gloved finger - Admit to ICU. Keep strict NPO. Continuepantoprazole IV infusion began inER. Give IV ondansetron as needed for nausea vomiting. Type & screen blood and transfuse for hemoglobin less than 7 g/dL. Check iron levels and ferritin. Patient was ordered Go-Lytely bowel prep i n preparation for colonoscopy. Finally, Dr. Winslow of gastroenterology was contacted by the ER withformal consultation pending in the a.m. and appreciatedin advance. 2. Adverse Drug Reaction to baby aspirin likely precipitating #1 - Prieto chino has had her dose of aspirin decreased in the past and now likely needs to be permanently discontinued to avoid recurrent GI bleeds. 3. History of GI bleed; with previous evaluation by Dr. Winslow of gastroenterology with a EGD performed in March 2024 for patient found to have3 actively bleeding angiodysplastic lesions in the stomach treated with heater probe complicating #1 & #2 - Noted with suspected recurrence. 4. GERD; on pantoprazole adding to the medical complexity of #1 - #3 - Patient on pantoprazole IV infusion for #1. 5. Essential hypertension; on amlodipine, valsartan-hydrochlorothiazide and prnhydralazine BID - Hold scheduled antihypertensives in light of #1. 6. History of CVA/TIA - Noted with no evidence of recurrence at this time. Patient was taking baby aspirin for this issue but now risks outweigh any potential benefits. 7. History of Alzheimer's dementia; on memantine - Restart this agent when patient is cleared for oral intake by GI. 8. History of arrhythmia; s/p PPM - Noted. 9. Depression with anxiety; on escitalopram - Restart escitalopram when patientis cleared for oral intake. 10. History of DCIS; s/p lumpectomy of the Right breast - Noted. 11. ZONIA - Avoid CPAP at this time in an effort to prevent insufflating bowel which may exacerbate #1. 12. OA; with history of Right THR - Stable. 13. DVT prophylaxis - SCD's only in light of #1. Total time: Approximately (but not less than) 75 minutes. Charges/Coding Visit Charges Inpatient E&M: 78409 Init Hosp L3 10/17/24 0608 Cosigner Signature (if applicable): CC: Dr. Lamin Ritter DO; Dr. Jose Hdz MD~ Signed [facility]07-02-2025 Discharge summary Author Ketan DexterJacquelin [facility] Note Date/Time October 17, 2024 1:08a m [facility] Medical Records Department [address] [place] [address] Emergency Department Summary 10/16/24 MR#: [id number] Acct: [id number] Name: XAVIER RAHMAN Rep #:[id number] : 1940 84 From: Ketan thayer DO PCP: Dr. Jose Hdz MD Status:ADM IN Location: ICU CVICU20 2-1 HPI History of Present Illness Chief Complaint: GI Bleed Narrative Narrative: Chief complaint and HPI: GI bleed. 84-year-old female with past medical historyupper GI bleed, TIA, HTN presents for evaluation of GI bleed. Patient states she has been constipated for the past several days. States she had a bowel movement yesterday that had bright red blood. Patient states she is continue tohave bowel movements throughout the day today that are more dark in color. She denies any fever, chills, chest pain, shortness of breath, lightheadedness. States she has intermittent abdominal pain. Not on a blood thinner. On chart review, patient had an EGD performed by Dr. Winslow in March 2024. 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 Review of systems: See HPI Medications: As listed on the chart Allergies: As listed on the chart PFSH: Per chart Vital signs: As listed on the chart. Reviewed. Physical exam: Gen: A&O x3, NAD Head: Normocephalic, atraumatic Eyes: No sclera icterus, conjunctiva clear ENT: Moist mucous membranes Neck: Trachea midline, No JVD CV: RRR, no murmurs, no peripheral edema Resp: Lungs CTA BL, no w/r/c GI: Abd soft, non-distended, non-tender, no r/r/g Rectal: Normal external examination. No evidence of hemorrhoids or fissures. Normal tone and sensation. No masses, fluctuance, or tenderness. No pain out of proportion. Maroon stool on gloved finger. Musc: Full ROM, no deformity Skin: Warm, dry Neuro: Alert, oriented, grossly intact, sensation intact Psych: Cooperative, appropriate mood and affect [facility] Medical History Anemia GI bleed History of COPD Head injury [...] Medications ?Medication ?Instructions ?Recorded ?Last Taken ?Type pramipexole 1.5 mg tablet 1.5 mg PO [...] 5 mg PO QPM 07/15/24 07/14/24 History aspirin 81 mg capsule 81 mg PO DAILY 30 days #30 c aps 07/17/24 Unknown Rx docusate sodium 100 mg capsule 100 mg PO QHS constipat ion 10/16/24 Unknown History hydralazine 10 mg tablet 10 mg PO BID PRN PRN blood p ressure 10/16/24 Unknown History Allergy/AdvReac Type Severity Reaction Status Date / Time lisinopril Allergy Mild cough Verified 10/16/24 19:21 alendronate sodium (From Allergy Unknown unknown Verified 10/16/24 19:21 Fosamax) Sulfa (Sulfonamide Allergy Rash Verified 10/16/24 19:21 Antibiotics) atorvastatin (From Lipitor) AdvReac Mild muscle Verified 10/16/24 19:21 aches rosuvastatin (From Crestor) AdvReac Mild muscle Verified 10/16/24 19:21 aches codeine AdvReac Nausea Verified 10/16/24 19:21 NSAIDS (Non-Steroidal AdvReac Bleeding Verified 10/16/24 19:21 Anti-Inflamma Family History Mother Heart disease CVA [...] for sleep but prior no substance use. EXAM Physical Exam Const Vital Signs: 10/16/24 19:21 10/16/24 21:00 10/16/24 22:00 Temperature 97 F L Temperature Source Temporal Pulse Rate 97 76 78 Respiratory Rate 14 16 16 Blood Pressure 105/51 L 138/69 H 98/82 H Blood Pressure Mean 69 92 87 Pulse Ox 100 98 100 Oxygen Delivery Method Room Air Room Air Room Air 10/16/24 22:55 10/17/24 00:00 Temperature 97.6 F L Temperature Source Pulse Rate 74 69 Respiratory Rate 14 18 Blood Pressure 120/85 H 130/50 H Blood Pressure Mean 96 76 Pulse Ox 97 97 Oxygen Delivery Method Room Air MDM MDM MDM Narrative Medical decision making narrative: 84-year-old female with past medical history upper GI bleed, TIA, HTN presents for evaluation of GI bleed. Onset of symptoms yesterday. On chart review, patient had an EGD performed by Dr. Winslow in March 2024. 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 Physical exam shows maroon-colored stool on gloved finger. Differential diagnosis includes but is not limited to upper GI bleed, lower GI bleed, anemia,electrolyte abnormality, colitis. Given concern for upper GI bleed, Protonix and NS bolus ordered. Laboratory workup ordered including CTA abdomen and pelvis. CBC without leukocytosis. Patient is anemia with a hemoglobin of 8.5. In July of this month, patient had a hemoglobin of 12.6. Platelet count unremarkable. BMP shows an elevated BUN of 38 and a normal creatinine. This isconcerning for upper GI bleed. Lactic acid unremarkable. CT abdomen pelvis shows new focal hyperdensity within a diverticulum near the hepatic flexure, forwhich GI bleeding is not excluded. Colonic diverticulosis without diverticulitis. 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 Hepatic steatosis. I was personally informed of the findings by radiology over the telephone. On reevaluation, patient has not had a bowel movement here in the emergency department however her blood pressure has been decreasing to 98/82. Given the slow decrease in blood pressure with acute anemia, patient will be typed and screened and 2 units RBCs ordered. With Protonix drip as I cannot rule out upper GI bleed with lower GI bleed. Dr. Winslow was consulted and patient was discussed. Agrees with admission and blood transfusion. Patient will need endoscopy. Patient was updated of all the results and confirmed understanding of the plan. I spoke with hospitalist service who accepted admission. Patient will be placed in the ICU. 35 minutes of critical care time utilized in managing the patient. This is due to high probability of and deterioration of the patient based on the patient's condition and excludes any separately billable procedures. Impression: 1. GI bleed, upper versus lower 2. Acute anemia likely secondary to #1 Lab Data Labs: Laboratory Results - last 24 hr 10/16/24 10/16/24 21:56 22:44 WBC 7.8 RBC 3.11 L Hgb 8.5 L Hct 26.7 L MCV 85.9 MCH 27.3 MCHC 31.8 L RDW Std Deviation 46.7 H RDW Coeff of Kierra 14.9 H Plt Count 218 MPV 10.2 Immature Gran % (Auto) 0.400 Neut % (Auto) 65.4 Lymph % (Auto) 20.5 [place] % (Auto) 10.7 H Eos % (Auto) 2.2 Baso % (Auto) 0.8 Absolute Neuts (auto) 5.1 Absolute Lymphs (auto) 1.60 Nucleated RBC % 0 Sodium 135 Potassium 3.3 Chloride 100 Carbon Dioxide 22.7 Anion Gap 13 BUN 38 H Creatinine 1.01 Estim Creat Clear Calc 34.30 L Est GFR (MDRD) Non-Af 55 L BUN/Creatinine Ratio 37.8 H Glucose 139 H Lactic Acid 1.8 Calcium 9.2 Total Bilirubin 0.27 AST 18 ALT 13 Alkaline Phosphatase 60 Total Protein 6.1 Albumin 3.8 Globulin 2.3 Albumin/Globulin Ratio 1.6 Lipase 54 Blood Type O POSITIVE Antibody Screen POSITIVE Antibody Identification ANTI-E Crossmatch See Detail Radiography Diagnostic Testing: Clinical Impression(s) from Imaging Studies Abdomen/Pelvis CTA 10/16/24 22:10 IMPRESSION: 1. There is new focal hyperdensity [...] 2.2 cm, also unchanged. 5. Hepatic steatosis. [place] Alert: Possible GI bleed The critical information above was relayed directly by me by telephone to Ketan Couch on 10/16/2024 at 10:33 pm with readback verification. Reading Location: [id number] Discharge Plan Disposition Disposition: Acute Care Hospital [facility] Discharge Date/Time: 10/17/24 00:20 What to do if you have Problems For any increased pain, shortness of breath, bleeding, nausea or vomiting, chestpain, or any unexpected problems, contact your Primary Care Provider. Call [facility] ([phone]) or report to the closest Emergency Room. Call 911 if necessary. 10/17/24 0108 <Electronically signed by Ketan Couch DO> Cosigner Signature (if applicable): CC: Dr. Jose Hdz MD ~ Signed [facility] Work Phone: 1(272) 736-372707-02-2025 Evaluation note* Diagnosis Onset Date Resolution Status Admit Date Debility acute October 17, 2024 12:05am Acute anemia resolved October 17 12:05am Acute blood loss anemia resolved J [email or web address] 12:05am Adverse drug reaction resolved Oct 12:05am GI bleed resolved October 17, 2024 12:05am Diverticular disease inactive October 17, 2024 12:05am GERD (gastroesophageal reflu x disease) inactive October 17, 2024 1 2:05am History of angiodysplasia of intestinal tract inactive October 17, 2024 12:05am History of GI bleed inactive October 17, 2024 12:05am [facility] Work Phone: 1(482) 669-389107-02-2025 Evaluation note* Diagnosis Onset Date Resolution Status Admit Date Debility acute October 17, 2024 12:05am Acute anemia resolved October 17 12:05am Acute blood loss anemia resolved J [email or web address] 12:05am Adverse drug reaction resolved Oct 12:05am GI bleed resolved October 17, 2024 12:05am Diverticular disease inactive October 17, 2024 12:05am GERD (gastroesophageal reflu x disease) inactive October 17, 2024 12:05am History of angiodysplasia of intestinal tract inactive October 17, 2024 12:05am History of GI bleed inactive October 17, 2024 12:05am Status post placement of implantable loop recorder November 08, 2022 acute Hydro 2024 12:44pm Essential hypertension chronic [place] 2024 12:44pm HLD (hyperlipidemia) chronic Augu st 2024 12:44pm [facility] Work Phone: 1(708) 965-128107-02-2025 Discharge summary [facility] Medical Records Department [address] [place] [address] Emergency Department Summary 10/16/24 MR#: [id number] Acct: [id number] Name: XAVIER RAHMAN Rep #:[id number] : 1940 84 From: Ketan thayer DO PCP: Dr. Jose Hdz MD Status:ADM IN Location: ICU CVICU20 2-1 HPI History of Present Illness Chief Complaint: GI Bleed Narrative Narrative: Chief complaint and HPI: GI bleed. 84-year-old female with past medical historyupper GI bleed, TIA,HTN presents for evaluation of GI bleed. Patient states she has been constipated for the past several days. States she had a bowel movement yesterday that had bright red blood. Patient states she is c ontinue tohave bowel movements throughout the day today that are more dark in color. She denies anyfever, chills, chest pain, shortness of breath, lightheadedness. States she has intermittent abdominal pain. Not on a blood thinner. On chart review, patient had an EGD performed by Dr. Wisnlow in March 2024. 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 Review of systems: See HPI Medications: As listed on the chart Allergies: As listed on the chart PFSH: Per chart Vital signs: As listed on the chart. Reviewed. Physical exam: Gen: A&O x3, NAD Head: Normocephalic, atraumatic Eyes: No sclera icterus, conjunctiva clear ENT: Moist mucous membranes Neck: Trachea midline, No JVD CV: RRR, no murmurs, no peripheral edema Resp: Lungs CTA BL, no w/r/c GI: Abd soft, non-distended, non-tender, no r/r/g Rectal: Normal external examination. No evidence of hemorrhoids or fissures. Normal tone and sensation. No masses, fluctuance, or tenderness. No pain out of proportion. Maroon stool on gloved finger. Musc: Full ROM, no deformity Skin: Warm, dry Neuro: Alert, oriented, grossly intact, sensation intact Psych: Cooperative, appropriate mood and affect [facility] Medical History Anemia GI bleed History of COPD Head injury [...] Medications ?Medication ?Instructions ?Recorded ?Last Taken ?Type pramipexole 1.5 mg tablet 1.5 mg PO [...] 5 mg PO QPM 07/15/24 07/14/24 History aspirin 81 mg capsule 81 mg PO DAILY 30 days #30 c aps 07/17/24 Unknown Rx docusate sodium 100 mg capsule 100 mg PO QHS constipat ion 10/16/24 Unknown History hydralazine 10 mg tablet 10 mg PO BID PRN PRN blood p ressure 10/16/24 Unknown History Allergy/AdvReac Type Severity Reaction Status Date / Time lisinopril Allergy Mild cough Verified 10/16/24 19:21 alendronate sodium (From Allergy Unknown unknown Verified 10/16/24 19:21 Fosamax) Sulfa (Sulfonamide Allergy Rash Verified 10/16/24 19:21 Antibiotics) atorvastatin (From Lipitor) AdvReac Mild muscle Verified 10/16/24 19:21 aches rosuvastatin (From Crestor) AdvReac Mild muscle Verified 10/16/24 19:21 aches codeine AdvReac Nausea Verified 10/16/24 19:21 NSAIDS (Non-Steroidal AdvReac Bleeding Verified 10/16/24 19:21 Anti-Inflamma Family History Mother Heart disease CVA [...] for sleep but prior no substance use. EXAM Physical Exam Const Vital Signs: 10/16/24 19:21 10/16/24 21:00 10/16/24 22:00 Temperature 97 F L Temperature Source Temporal Pulse Rate 97 76 78 Respiratory Rate 14 16 16 Blood Pressure 105/51 L 138/69 H 98/82 H Blood Pressure Mean 69 92 87 Pulse Ox 100 98 100 Oxygen Delivery Method Room Air Room Air Room Air 10/16/24 22:55 10/17/24 00:00 Temperature 97.6 F L Temperature Source Pulse Rate 74 69 Respiratory Rate 14 18 Blood Pressure 120/85 H 130/50 H Blood Pressure Mean 96 76 Pulse Ox 97 97 Oxygen Delivery Method Room Air MDM MDM MDM Narrative Medical decision making narrative: 84-year-old female with past medical history upper GI bleed, TIA, HTN presents for evaluation of GIbleed. Onset of symptoms yesterday. On chart review, patient had an EGD performed by Dr. Winslow in March 2024. 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 Physical exam shows maroon-colored stool on gloved finger. Differential diagnosis includes but is not limited to upper GI bleed, lower GI bleed, anemia,electrolyte abnormality, colitis. Given concern for upper GI bleed, Protonix and NS bolus ordered. Laboratory workup ordered including CTA abdomen and pelvis. CBC without leukocytosis. Patient is anemia with a hemoglobin of 8.5. In Julyof this month, patient had a hemoglobin of 12.6. Platelet count unremarkable. BMP shows an elevatedBUN of 38 and a normal creatinine. This isconcerning for upper GI bleed. Lactic acid unremarkable. CT abdomen pelvis shows new focal hyperdensity within a diverticulum near the hepatic flexure, forwhich GI bleeding is not excluded. Colonic diverticulosis without diverticulitis. 50% narrowing of theceliac axis and origin of the SMA. Hepatic steatosis. I was personally informed of the findings by radiology over the telephone. On reevaluation, patient has not had a bowel movement here in the emergency department however her blood pressure has been decreasing to 98/82. Given the slow decrease inblood pressure with acute anemia, patient will be typed and screened and 2 units RBCs ordered. WithProtonix drip as I cannot rule out upper GI bleed with lower GI bleed. Dr. Winslow was consulted andpatient was discussed. Agrees with admission and blood transfusion. Patient will need endoscopy. Patient was updated of all the results and confirmed understanding of the plan. I spoke with hospitalist service who accepted admission. Patient will be placed in the ICU. 35 minutes of critical care time utilized in managing the patient. This is due to high probability of and deterioration of the patient based on the patient's condition and excludes any separately billable procedures. Impression: 1. GI bleed, upper versus lower 2. Acute anemia likely secondary to #1 Lab Data Labs: Laboratory Results - last 24 hr 10/16/24 10/16/24 21:56 22:44 WBC 7.8 RBC 3.11 L Hgb 8.5 L Hct 26.7 L MCV 85.9 MCH 27.3 MCHC 31.8 L RDW Std Deviation 46.7 H RDW Coeff of Kierra 14.9 H Plt Count 218 MPV 10.2 Immature Gran % (Auto) 0.400 Neut % (Auto) 65.4 Lymph % (Auto) 20.5 [place] % (Auto) 10.7 H Eos % (Auto) 2.2 Baso % (Auto) 0.8 Absolute Neuts (auto) 5.1 Absolute Lymphs (auto) 1.60 Nucleated RBC % 0 Sodium 135 Potassium 3.3 Chloride 100 Carbon Dioxide 22.7 Anion Gap 13 BUN 38 H Creatinine 1.01 Estim Creat Clear Calc 34.30 L Est GFR (MDRD) Non-Af 55 L BUN/Creatinine Ratio 37.8 H Glucose 139 H Lactic Acid 1.8 Calcium 9.2 Total Bilirubin 0.27 AST 18 ALT 13 Alkaline Phosphatase 60 Total Protein 6.1 Albumin 3.8 Globulin 2.3 Albumin/Globulin Ratio 1.6 Lipase 54 Blood Type O POSITIVE Antibody Screen POSITIVE Antibody Identification ANTI-E Crossmatch See Detail Radiography Diagnostic Testing: Clinical Impression(s) from Imaging Studies Abdomen/Pelvis CTA 10/16/24 22:10 IMPRESSION: 1. There is new focal hyperdensity [...] 2.2 cm, also unchanged. 5. Hepatic steatosis. [place] Alert: Possible GI bleed The critical information above was relayed directly by me by telephone to Ketan Couch on 10/16/2024 at 10:33 pm with readback verification. Reading Location: [id number] Discharge Plan Disposition Disposition: Acute Care Hospital [facility] Discharge Date/Time: 10/17/24 00:20 What to do if you have Problems For any increased pain, shortness of breath, bleeding, nausea or vomiting, chestpain, or any unexpected problems, contact your Primary Care Provider. Call [facility] ([phone]) or report tothe closest Emergency Room. Call 911 if necessary. 10/17/24 0108 Cosigner Signature (if applicable): CC: Dr. Jose Hdz MD ~ Signed [facility]07-01-2025 Radiology Diagnostic study note [facility] Imaging Services [address], [place] [id number] CTA Abd/Pelvis W/WO Contrast MR#: [id number] Acct: [id number] Name: XAVIER RAHMAN Rep #: [id number] : 1940 F 84 From: Chante Allison MD PCP: Dr. Jose Hdz MD Status: REG ER Study:CTA Abd/Pelvis W/WO Contrast Date of Ex am: 10/16/24 Exam# [id number] Ordering Dr: Ketan Varghese DO PROCEDURE: CTA [...] abdominal aorta measuring up to2.2 cm in diameter,unchanged. Diffuse aortic atherosclerosis without significant stenosis. Iliac [...] 2.2 cm, also unchanged. 5. Hepatic steatosis. [place] Alert: Possible GI bleed The critical information above was relayed directly by me by telephone to Ketan Couch on 10/16/2024 at 10:33 pm with readback verification. Reading Location: [id number] CC: Dr. Ketan Couch DO; Dr. Jose Hdz MD ~ Filter Washer: Signed [facility]06-14-2025 Radiology Diagnostic study note [facility] Imaging Services [address] [place], [place] [id number] Finger(s) Min 2 Views MR#: [id number] Acct: [id number] Name: XAVIER RAHMAN Rep #: [id number] : 1940 F 84 From: Pet er Dae TIMMONS PCP: Dr. Jose Hdz MD Status: REG CLI Study:Finger(s) Min 2 Views Date of Exam: 09/28/24 Exam# [id number] Ordering Dr: Abhilash Dominguez NP PROCEDURE: FINGER(S) MIN 2 VIEWS 09/28/2024 REASON FOR EXAM: SWELLING ON of the RIGHT INDEX FINGER TECHNIQUE: FINGER(S) MIN 2 VIEWS COMPARISON: None. FINDINGS: Bones: Bone mineralization is normal. No fracture or dislocation. No erosive or lytic process identified. Joints: Unremarkable. Soft tissues: Generalized soft tissue swelling. Other: RAD/Finger(s) Min 2 Views IMPRESSION: No acute osseous injury. Reading Location: [facility] CC: Abhilash Dominguez; Dr. Jose Hdz MD ~ Filter Washer: Signed [facility]04-01-2025 Consult note [facility] Medical Records Department [address] [place] [address] Counseling Note - Pharmacy 07/17/24 1215 MR#: [id number] Acct: [id number] Name: XAVIER RAHMAN Rep #:[id number] : 1940 84 From: Ambreen Sin PCP: Dr. Jose Hdz MD Status:ADM NICOLASA Y Location: [place] [address]1 Pharmacy [facility] Service has performed discharge medication reconciliation [...] understanding of their dischargemedications. Patient counseled by pharmacy sales representative, Erwin. Medications at Discharge Home Medications pramipexole 1.5 [...] 30 days #30 caps 07/17/24 07/17/24 1216 Date _ Ambreen Smith Signature (if applicable): Date CC: ~ Signed [facility]04-01-2025 Discharge summary [facility] Medical Records Department [address] [place] [address] Discharge Summary 07/17/24 1043 MR#: [id number] Acct: [id number] Name: XAVIER RAHMAN Rep #:[id number] : 1940 84 From: Brodie hdez DO PCP: Dr. Jose Hdz MD Status:ADM NICOLASA Location: [place] [address] Providers Date of Admission: 07/15/24 Date of Discharge: 07/17/24 Primary Care Physician: Dr. Jose Hdz MD Consultations 07/15/24 18:56 Consult: Gastroenterology Routine Consulting Provider: FriendBrad Reason for Consult: painless bright red blood [...] is an 84-year-old female who presented to [facility] ED on 07/15/2024 with bright red [...] had bright red stools that prompted her tocome in. CTA abdomen pelvis unremarkable. Hemoglobin 13.4 in ED, dropped to 11.4 by morning of 07/16but was given IV fluids, and repeat hemoglobins [...] Primary Care Provider: Jose Hdz Consulting Providers: Friend,Brad; Leonora Mojica Instructions Additional Instructions / Restrictions: [...] Self Care Charges/Coding Visit Charges Inpatient E&M: 60481 Disch Hosp >30min 07/17/24 1133 Cosigner Signature (if applicable): CC: Dr. Brodie Swartz DO; Dr. Jose Hdz MD~ Signed [facility]04-01-2025 Discharge summary [facility] Medical Records Department [address] [place] [address] Instructions for Home/Discharge Instructions 07/17/24 1043 MR#: [id number] Acct: [id number] Name: XAVIER RAHMAN Rep #:[id number] : 1940 84 From: Brodie hdez DO [...] can be placed): Home, Self Care 07/17/24 1057Alexalfredo Swartz DO CC: Dr. Jose Hdz MD; Dr. Leonora Mojica MD; Brad Winslow DO ~ Signed [facility]04-01-2025 [facility]03-31-2025 Progress note Author Brodie Swartz [facility] Note Date/Time July 16, 2024 4:3 1pm [facility] Medical Records Department [address] [place] [id number] Progress Note - Hospitalist 07/16/24 1210 MR#: [id number] Acct: [id number] Name: XAVIER RAHMAN Rep #:[id number] : 1940 84 From: Brodie hdez DO PCP: Dr. Jose Hdz MD Status:ADM NICOLASA Location: [place] [address] Reason for Visit Reason for Visit: Diagnoses Acute posthemorrhagic anemia (07/15/24) Hemorrhage of anus and rectum (07/15/24) Gastrointestinal hemorrhage, unspecified (07/15/24) Subjective Subjective Saw patient at bedside this morning, daughter present. Patient was sitting backcomfortably in bed, conversing normally and in no acute distress. Denied any pain or discomfort. [place] mildly fatigued this morning but otherwise felt [...] (Auto) 70.6 H, Lymph % (Auto) 19.1, [place] % (Auto) 8.1, Eos % (Auto) 1.1, [...] % (Auto) 65.9, Lymph % (Auto) 20.3, [place]% (Auto) 10.0, Eos % (Auto) 2.4, Baso [...] is an 84-year-old female who presented to [facility] ED on 07/15/2024 with bright red [...] 35 minutes. Charges/Coding Visit Charges Inpatient E&M: 26087 Subs Hosp L2 07/16/24 1631 <Electronically signed by Brodie Swartz DO> Cosigner Signature (if applicable): CC: ~ Signed [facility] Work Phone: 1(874) 126-658403-31-2025 Progress note [facility] Medical Records Department [address] [place] [address] Progress Note - Hospitalist 07/16/24 1210 MR#: [id number] Acct: [id number] Name: XAVIER RAHMAN Rep #:[id number] : 1940 84 From: Brodie hdez DO PCP: Dr. Jose Hdz MD Status:ADM NICOLASA Location: MS3 IY063-1 Reason for Visit Reason for Visit: Diagnoses Acute posthemorrhagic anemia (07/15/24) Hemorrhage of anus and rectum (07/15/24) Gastrointestinal hemorrhage, unspecified (07/15/24) Subjective Subjective Saw patient at bedside this morning, daughter present. Patient was sitting backcomfortably in bed, conversing normally and in no acute distress. Denied any pain or discomfort. [place] mildly fatigued this morning but otherwise felt [...] (Auto) 70.6 H, Lymph % (Auto) 19.1, [place] % (Auto) 8.1, Eos % (Auto) 1.1, [...] % (Auto) 65.9, Lymph % (Auto) 20.3, [place]% (Auto) 10.0, Eos % (Auto) 2.4, Baso [...] is an 84-year-old female who presented to [facility] ED on 07/15/2024 with bright red [...] 35 minutes. Charges/Coding Visit Charges Inpatient E&M: 37110 Subs Hosp L2 07/16/24 1631 Cosigner Signature (if applicable): CC: ~ Signed [facility]03-31-2025 Consult note Author Brad Friend [facility] Note Date/Time July 16, 2024 8:5 2am [facility] Medical Records Department [address] [place] [address] Consultation - GI 07/16/24 0845 MR#: [id number] Acct: [id number] Name: XAVIER RAHMAN Rep #:[id number] : 1940 84 From: Brad Winslow DO PCP: Dr. Jose Hdz MD Status:ADM NICOLASA Location: MS3 LH747-0 HPI Consult Data Date of Consult: 07/16/24 HPI Narrative Reason for Consultation: GI bleeding HPI Narrative: XAVIER RAHMAN, is a 84 F who presents with bright red blood per rectum x 2 episodes after tenriism today. She does have some abdominal tenderness. [...] later restarted back on aspirin and Plavix. [facility] Medical History GI bleed History of COPD [...] (Auto) 70.6 H, Lymph % (Auto) 19.1, [place] % (Auto) 8.1, Eos % (Auto) 1.1, [...] % (Auto) 65.9, Lymph % (Auto) 20.3, [place]% (Auto) 10.0, Eos % (Auto) 2.4, Baso [...] Location: [place] Assessment & Plan Assessment/Plan (1) GI (gastrointestinal bleed): (2) Acute blood loss anemia: PLAN: Plan Patient is an 84-year-old female who presented [facility] ED on 07/15/2024 with weakness and [...] endoscopic procedures. Charges/Coding Visit Charges Inpatient E&M: 42546 Init Hosp L3 07/16/24 0852 <Electronically signed by Brad Friend DO> Cosigner Signature (if applicable): CC: Dr. Jose Hdz MD~ Signed [facility] Work Phone: 1(137) 189-707503-31-2025 Consult note [facility] Medical Records Department [address] [place] [address] Consultation - GI 07/16/24 0845 MR#: [id number] Acct: [id number] Name: RAHMANXAVIER H Rep #:[id number] : 1940 84 From: Brad Winslow DO PCP: Dr. Jose Hdz MD Status:ADM NICOLASA Location: MS3 FP738-7 HPI Consult Data Date of Consult: 07/16/24 HPI Narrative Reason for Consultation: GI bleeding HPI Narrative: XAVIER RAHMAN, is a 84 F who presents with bright red blood per rectum x 2 episodes after tenriism today. She does have some abdominal tenderness. [...] later restarted back on aspirin and Plavix. [facility] Medical History GI bleed History of COPD [...] (Auto) 70.6 H, Lymph % (Auto) 19.1, [place] % (Auto) 8.1, Eos % (Auto) 1.1, [...] % (Auto) 65.9, Lymph % (Auto) 20.3, [place]% (Auto) 10.0, Eos % (Auto) 2.4, Baso [...] Patient is an 84-year-old female who presented [facility] ED on 07/15/2024 with weakness and [...] endoscopic procedures. Charges/Coding Visit Charges Inpatient E&M: 08459 Init Hosp L3 07/16/24 0852 Cosigner Signature (if applicable): CC: Dr. Jose Hdz MD~ Signed [facility]03-31-2025 Discharge summary Author Ta Soto [facility] Note Date/Time July 15, 2024 11: 05pm [facility] Medical Records Department [address] [place] [address] Emergency Department Summary 07/15/24 MR#: [id number] Acct: [id number] Name: XAVIER RAHMAN Rep #:[id number] : 1940 84 From: Ta Raygoza PCP: Dr. Jose Hdz MD Status:ADM NICOLASA Location: MS3 XG571-2 HPI HPI - GI History of Present Illness Chief Complaint: GI Bleed Informant: patient Narrative Narrative: Bright red blood per rectum x 2 episodes after tenriism today. States liquid. Noclots. No abdominal pain. 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 1550: Hemoglobin trend 13.4. Brazos score 10. 1730: Reevaluation vital stable patient [...] clinician: Hospitalist This note was generated with Klipfolio dictation software. It may contain incorrectwords, spelling, [...] (Auto) 70.6 H Lymph % (Auto) 19.1 [place] % (Auto) 8.1 Eos % (Auto) 1.1 [...] Diverticular disease Disposition Disposition: Acute Care Hospital [facility] Discharge Date/Time: 07/15/24 18:46 What to do if you have Problems For any increased pain, shortness of breath, bleeding, nausea or vomiting, chestpain, or any unexpected problems, contact your Primary Care Provider. Call [facility] ([phone]) or report to the closest Emergency Room. Call 911 if necessary. 07/15/242304 <Electronically signed by Ta Raygoza> Cosigner Signature (if applicable): CC: Dr. Jose Hdz MD ~ Signed [facility] Work Phone: 1(984) 234-568503-30-2025 Discharge summary [facility] Medical Records Department [address] [place] [address] Emergency Department Summary 07/15/24 MR#: [id number] Acct: [id number] Name: XAVIER RAHMAN Rep #:[id number] : 1940 84 From: Ta Raygoza PCP: Dr. Jose Hdz MD Status:ADM NICOLASA Location: MS3 RG187-8 HPI HPI - GI History of Present Illness Chief Complaint: GI Bleed Informant: patient Narrative Narrative: Bright red blood per rectum x 2 episodes after tenriism today. States liquid.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 RAHMAN June 13, 2022 11:07pm Name of Medical Power of Factory Lay Out Engineer Bin Rahman September 07, 2022 6:09pm Name of Medical Power of Factory Lay Out Engineer POEleazar October 12, 2022 10:10pm Advance Directives Yes September 06 1:29pm Living Will Yes October 12, 2022 10:10pm Power of Factory Lay Out Engineer Yes October 12 10:10pm Advance Directive Response Recorded Date/ Time Name of Medical Power of Factory Lay Out Engineer Bin Rahman May 23rd, 2023 6:09pm Name of Medical Power of Factory Lay Out Engineer POA October 12, 2022 10:10pm Name of Medical Power of Factory Lay Out Engineer POA October 16, 2022 9:30pm Advance Directives Yes September 06 1:29pm Living Will Yes October 16, 2022 9 :30pm Power of Factory Lay Out Engineer Yes October 16, 2022 9:30pm Advance Directive Response Recorded Date/ Time Name of Medical Power of Factory Lay Out Engineer Bin Rahman September 07, 2022 6:09pm Name of Medical Power of Factory Lay Out Engineer POA October 12, 2022 10:10pm Name of Medical Power of Factory Lay Out Engineer POA October 17, 2022 2:35am Advance Directives on File Yes November 08, 2022 11:02am Name of Medical Power of Factory Lay Out Engineer Bin Vincent moisés November 08, 2022 11:02am Advance Directives Yes November 08 11:02am Living Will Yes November 08, 2022 11:02am Power of Factory Lay Out Engineer Yes November 08 11:02am Advance Directive Response Recorded Date/ Time Name of Medical Power of Factory Lay Out Engineer POA October 12, 2022 10:10pm Name of Medical Power of Factory Lay Out Engineer POA October 17, 2022 2:35am Advance Directives on File Yes November 08, 2022 11:02am Name of Medical Power of Factory Lay Out Engineer Bin Vincent moisés November 08, 2022 11:02am Name of Medical Power of Factory Lay Out Engineer . January 06, 2023 10:28pm Advance Directives Yes November 08 11:02am Living Will Yes January 06, 2023 10:28pm Power of Factory Lay Out Engineer Yes December 10:28pm Advance Directive Response Recorded Date/ Time Name of Medical Power of Factory Lay Out Engineer daughter June 11, 2023 10:08am Advance Directives Yes March 12:18pm Living Will Yes June 11 10:08am Power of Factory Lay Out Engineer Yes June 11, 2023 10:08am Advance Directive Response Recorded Date/ Time Name of Medical Power of Factory Lay Out Engineer daughter June 11, 2023 11:08am Name of Medical Power of Factory Lay Out Engineer anisha June 26, 2023 6:37am Advance Directives Yes March 1:18pm Living Will Yes June 26, 2023 6:37am Power of Factory Lay Out Engineer Yes June 25 6:37am Advance Directive Response Recorded Date/ Time Name of Medical Power of Factory Lay Out Engineer daughter June 11, 2023 11:08am Name of Medical Power of Factory Lay Out Engineer anisha June 26, 2023 6:37am Name of Medical Power of Factory Lay Out Engineer recalled June 26, 2023 4:38pm Advance Directives Yes March 1:18pm Living Will Yes June 26, 2023 4:38pm Power of Factory Lay Out Engineer Yes June 25 4:38pm Advance Directive Response Recorded Date/ Time Name of Medical Power of Factory Lay Out Engineer daughter June 11, 2023 11:08am Name of Medical Power of Factory Lay Out Engineer anisha June 26, 2023 6:37am Name of Medical Power of Factory Lay Out Engineer Anisha Lacey (camilo mccoy) June 26, 2023 9:21pm Advance Directives Yes March 1:18pm Living Will Yes June 26, 2023 9:21pm Power of Factory Lay Out Engineer Yes June 25 9:21pm Advance Directive Response Recorded Date/ Time Name of Medical Power of Factory Lay Out Engineer daughter June 11, 2023 11:08am Name of Medical Power of Factory Lay Out Engineer anisha June 26, 2023 6:37am Name of Medical Power of Factory Lay Out Engineer Ansiha Rahman (camilo mccoy) June 26, 2023 9:21pm Name of Medical Power of Factory Lay Out Engineer anisha rahman July 24, 2023 12:26pm Advance Directives Yes March 1:18pm Living Will Yes July 24, 2023 12:26pm Power of Factory Lay Out Engineer Yes July 23 12:26pm Advance Directive Response Recorded Date/ Time Name of Medical Power of Factory Lay Out Engineer daughter June 11, 2023 11:08am Name of Medical Power of Factory Lay Out Engineer anisha June 26, 2023 6:37am Name of Medical Power of Factory Lay Out Engineer Anisha Rahman (camilo mccoy) June 26, 2023 9:21pm Name of Medical Power of Factory Lay Out Engineer DAUGHTER August 20, 2023 10:24am Advance Directives Yes March 1:18pm Living Will Yes August 20, 2023 10 :24am Power of Factory Lay Out Engineer Yes August 20, 2023 10:24am Name of Medical Power of Factory Lay Out Engineer anisha rahman July 24, 2023 12:26pm Advance Directive Response Recorded Date/ Time Name of Medical Power of Factory Lay Out Engineer . January 06, 2023 9:28pm Advance Directives Yes March 12:18pm Living Will No April 02, 023 2:50pm Power of Factory Lay Out Engineer No April 02, 2023 2:50pm Advance Directive Response Recorded Date/ Time Living Will Yes March 18 9:47am Do you have a Healthcare Pow er of Factory Lay Out Engineer? Yes March 18, 2024 9:47am Name of Medical Power of Factory Lay Out Engineer Anisha Rahman March 18, 2024 9:47am Living Will Yes July 15, 2024 3:20pm Do you have a Healthcare Pow er of Factory Lay Out Engineer? Yes July 15, 2024 3:20pm Name of Medical Power of Factory Lay Out Engineer yasmine and ca ashkan July 15, 2024 3:20pm Living Will Yes March 22 12:29am Do you have a Healthcare Pow er of Factory Lay Out Engineer? Yes March 22, 2024 12:29am Name of Medical Power of Factory Lay Out Engineer Anisha - daught er March 22, 2024 12:29am Advance Directives Yes March 1:18pm Advance Directive Response Recorded Date/ Time Living Will Yes July 15, 2024 6:56pm Do you have a Healthcare Pow er of Factory Lay Out Engineer? Yes July 15, 2024 6:56pm Name of Medical Power of Factory Lay Out Engineer yasmine and ca rol July 15, 2024 6:56pm Living Will Yes March 22 12:29am Do you have a Healthcare Pow er of Factory Lay Out Engineer? Yes March 22, 2024 12:29am Name of Medical Power of Factory Lay Out Engineer Anisha - daught er March 22, 2024 12:29am Advance Directives Yes March 1:18pm Advance Directive Response Recorded Date/ Time Living Will Yes July 15, 2024 6:56pm Do you have a Healthcare Pow er of Factory Lay Out Engineer? Yes July 15, 2024 6:56pm Name of Medical Power of Factory Lay Out Engineer yasmine and ca rol July 15, 2024 6:56pm Advance Directives Yes March 1:18pm Advance Directive Response Recorded Date/ Time Living Will Yes July 15, 2024 6:56pm Do you have a Healthcare Pow er of Factory Lay Out Engineer? Yes July 15, 2024 6:56pm Name of Medical Power of Factory Lay Out Engineer yasmine and ca rol July 15, 2024 6:56pm Do you have a Healthcare Pow er of Factory Lay Out Engineer? Yes October 16, 2024 10:04pm Name of Medical Power of Factory Lay Out Engineer Anisha Rahman October 16, 2024 10:04pm Advance Directives Yes March 1:18pm Advance Directive Response Recorded Date/ Time Living Will Yes July 15, 2024 6:56pm Do you have a Healthcare Pow er of Factory Lay Out Engineer? Yes July 15, 2024 6:56pm Name of Medical Power of Factory Lay Out Engineer yasmine and ca rol July 15, 2024 6:56pm Do you have a Healthcare Pow er of Factory Lay Out Engineer? Yes October 17, 2024 12:32am Name of Medical Power of Factory Lay Out Engineer Anisha Rahman October 16, 2024 10:04pm Advance Directives Yes March 1:18pm Advance Directive Response Recorded Date/ Time Living Will Yes July 15, 2024 6:56pm Do you have a Healthcare Pow er of Factory Lay Out Engineer? Yes July 15, 2024 6:56pm Name of Medical Power of Factory Lay Out Engineer yasmine and ca rol July 15, 2024 6:56pm Do you have a Healthcare Pow er of Factory Lay Out Engineer? Yes October 17, 2024 12:32am Name of Medical Power of Factory Lay Out Engineer Anisha Rahman October 16, 2024 10:04pm Do you have a Healthcare Pow er of Factory Lay Out Engineer? Yes November 07, 2024 4:38pm Name of Medical Power of Factory Lay Out Engineer PARDEEP MCCOY November 07, 2024 4:38pm Advance Directives Yes March 1:18pm Advance Directive Response Recorded Date/ Time Do you have a Healthcare Pow er of Factory Lay Out Engineer? Yes October 17, 2024 12:32am Name of Medical Power of Factory Lay Out Engineer Anisha Rahman October 16, 2024 10:04pm Do you have a Healthcare Pow er of Factory Lay Out Engineer? Yes November 07, 2024 4:38pm Name of Medical Power of Factory Lay Out Engineer PARDEEP LIUDMILA MCCOY November 07, 2024 4:38pm Advance Directives Yes March 1:18pm Chief Complaint [...] Mar 8:32am RECTAL BLEEDING WITH MEANOTIC STOOLS [facility]2023 5:47pm RECTAL BLEEDING WITH MEANOTIC STOOLS Mar 7:11am RECTAL BLEEDING WITH MEANOTIC STOOLS [facility]2023 11:37am RECTAL BLEEDING WITH MEANOTIC STOOLS [facility]2023 12:08pm Pacer Check Remote April 01, 2024 [...] Admit Date RECTAL BLEEDING WITH MEANOTIC STOOLS [facility] 2023 10:38pm RECTAL BLEEDING WITH MEANOTIC STOOLS Mar 10:51pm RECTAL BLEEDING WITH MEANOTIC STOOLS Mar 8:32am RECTAL BLEEDING WITH MEANOTIC STOOLS Mar 5:47pm RECTAL BLEEDING WITH MEANOTIC STOOLS [facility]2023 7:11am RECTAL BLEEDING WITH MEANOTIC STOOLS [facility]2023 11:37am RECTAL BLEEDING WITH MEANOTIC STOOLS [facility]2023 12:08pm Pacer Check Remote April 01, 2024 [...] GI BLEED October 16, 2024 7:19p m Chief Complaint Admit Date Pacer Check Remote [...] October 15, 2024 8:09 pm GI BLEED WITH ABLA October 17, 2024 12:05 am GI BLEED WITH ABLA October 17, 2024 7:34a m GI BLEED WITH ABLA October 17, 2024 12:21 pm GI BLEED WITH ABLA October 18, 2024 6:11p m GI BLEED WITH ABLA October 19, 2024 7:08a m GI BLEED WITH ABLA October 20, 2024 7:48a m GI BLEED WITH ABLA October 21, 2024 7:08a m GI BLEED WITH ABLA October 22, 2024 8:05a m GI BLEED WITH ABLA October 22, 2024 12:41 pm GI BLEED WITH ABLA October 23, 2024 7:21a m GI BLEED WITH ABLA Erna 8th, 2025 5:46p m GI BLEED WITH ABLA October 24, 2024 7:13a m Reason for Visit Admit Date Acute blood loss anemia July 15, 2024 6:10pm GI bleed July 15, 2024 6:1 0pm Anemia July 15, 2024 6:1 0pm Bright red rectal bleeding July 15, 025 6:10pm Acute anemia October 17, 2024 12:05 am Adverse drug reaction October 17, 2024 12: 05am Debility October 17, 2024 12:05 am Diverticular disease October 17, 2024 12:0 5am GERD (gastroesophageal reflux disease) J patrick 2024 12:05am GI bleed October 17, 2024 12:05 am History of angiodysplasia of intestinal tract October 17, 2024 12:05am History of GI bleed October 17, 2024 12:05 am Acute blood loss anemia October 17, 2024 1 2:05am Chief Complaint Admit Date BRBPR July 15, 2024 6:1 0pm BRBPR [...] October 15, 2024 8:09 pm GI BLEED WITH ABLA October 17, 2024 12:05 am GI BLEED WITH ABLA October 17, 2024 7:34a m GI BLEED WITH ABLA October 17, 2024 12:21 pm GI BLEED WITH ABLA October 18, 2024 6:11p m GI BLEED WITH ABLA October 19, 2024 7:08a m GI BLEED WITH ABLA October 20, 2024 7:48a m GI BLEED WITH ABLA October 21, 2024 7:08a m GI BLEED WITH ABLA October 22, 2024 8:05a m GI BLEED WITH ABLA October 22, 2024 12:41 pm GI BLEED WITH ABLA October 23, 2024 7:21a m GI BLEED WITH ABLA October 23, 2024 5:46p m GI BLEED WITH ABLA October 24, 2024 7:13a m Pacer Check Remote October 28, 2024 4:24 pm Reason for Visit Admit Date Acute blood loss anemia July 15, 2024 6:10pm GI bleed July 15, 2024 6:1 0pm Anemia July 15, 2024 6:1 0pm Bright red rectal bleeding July 15, 2 025 6:10pm Debility October 17, 2024 12:05 am Acute anemia October 17, 2024 12:05 am Acute blood loss anemia October 17, 2024 1 2:05am Adverse drug reaction October 17, 2024 12: 05am GI bleed October 17, 2024 12:05 am Diverticular disease October 17, 2024 12:0 5am GERD (gastroesophageal reflux disease) J patrick 2024 12:05am History of angiodysplasia of intestinal tract October 17, 2024 12:05am History of GI bleed October 17, 2024 12:05 am Chief Complaint Admit Date BRBPR July 15, 2024 6:1 0pm BRBPR [...] October 15, 2024 8:09 pm GI BLEED WITH ABLA October 17, 2024 12:05 am GI BLEED WITH ABLA October 17, 2024 7:34a m GI BLEED WITH ABLA October 17, 2024 12:21 pm GI BLEED WITH ABLA October 18, 2024 6:11p m GI BLEED WITH ABLA October 19, 2024 7:08a m GI BLEED WITH ABLA October 20, 2024 7:48a m GI BLEED WITH ABLA October 21, 2024 7:08a m GI BLEED WITH ABLA October 22, 2024 8:05a m GI BLEED WITH ABLA October 22, 2024 12:41 pm GI BLEED WITH ABLA October 23, 2024 7:21a m GI BLEED WITH ABLA October 23, 2024 5:46p m GI BLEED WITH ABLA October 24, 2024 7:13a m Pacer Check Remote October 28, 2024 4:24 pm DIZZINESS November 07, 2024 3:11 pm Chief Complaint Admit Date Pacer Check Remote August 29, 2024 4:25p m FINGER- RIGHT HAND September 28, 2024 2:25 pm Pacer Check Remote September 28, 2024 4:27 pm RECTAL HEMORRAGING October 15, 2024 8:09 pm GI BLEED WITH ABLA October 17, 2024 12:05 am GI BLEED WITH ABLA October 17, 2024 7:34a m GI BLEED WITH ABLA October 17, 2024 12:21 pm GI BLEED WITH ABLA October 18, 2024 6:11p m GI BLEED WITH ABLA October 19, 2024 7:08a m GI BLEED WITH ABLA October 20, 2024 7:48a m GI BLEED WITH ABLA October 21, 2024 7:08a m GI BLEED WITH ABLA October 22, 2024 8:05a m GI BLEED WITH ABLA October 22, 2024 12:41 pm GI BLEED WITH ABLA October 23, 2024 7:21a m GI BLEED WITH ABLA October 23, 2024 5:46p m GI BLEED WITH ABLA October 24, 2024 7:13a m Pacer Check Remote October 28, 2024 4:24 pm DIZZINESS November 07, 2024 3:11 pm Pacer Check Remote November 27, 2024 4: 24pm Reason for Visit Admit Date Debility October 17, 2024 12:05 am Acute anemia October 17, 2024 12:05 am Acute blood loss anemia October 17, 2024 1 2:05am Adverse drug reaction October 17, 2024 12: 05am GI bleed October 17, 2024 12:05 am Diverticular disease October 17, 2024 12:0 5am GERD (gastroesophageal reflux disease) J patrick 2024 12:05am History of angiodysplasia of intestinal tract October 17, 2024 12:05am History of GI bleed October 17, 2024 12:05 am Chief Complaint Admit Date Pacer Check Remote May 14th, 2025 4:25p m FINGER- RIGHT HAND September 28, 2024 2:25 pm Pacer Check Remote September 28, 2024 4:27 pm RECTAL HEMORRAGING October 15, 2024 8:09 pm GI BLEED WITH ABLA October 17, 2024 12:05 am GI BLEED WITH ABLA October 17, 2024 7:34a m GI BLEED WITH ABLA October 17, 2024 12:21 pm GI BLEED WITH ABLA October 18, 2024 6:11p m GI BLEED WITH ABLA October 19, 2024 7:08a m GI BLEED WITH ABLA October 20, 2024 7:48a m GI BLEED WITH ABLA October 21, 2024 7:08a m GI BLEED WITH ABLA October 22, 2024 8:05a m GI BLEED WITH ABLA October 22, 2024 12:41 pm GI BLEED WITH ABLA October 23, 2024 7:21a m GI BLEED WITH ABLA October 23, 2024 5:46p m GI BLEED WITH ABLA October 24, 2024 7:13a m Pacer Check Remote October 28, 2024 4:24 pm DIZZINESS November 07, 2024 3:11 pm Pacer Check Remote November 27, 2024 4: 24pm Referral from ED, SOB November 29, 2024 9:36am Chief Complaint Admit Date Pacer Check Remote August 29, 2024 4:25p m FINGER- RIGHT HAND September 28, 2024 2:25 pm Pacer Check Remote September 28, 2024 4:27 pm RECTAL HEMORRAGING October 15, 2024 8:09 pm GI BLEED WITH ABLA October 17, 2024 12:05 am GI BLEED WITH ABLA October 17, 2024 7:34a m GI BLEED WITH ABLA October 17, 2024 12:21 pm GI BLEED WITH ABLA October 18, 2024 6:11p m GI BLEED WITH ABLA October 19, 2024 7:08a m GI BLEED WITH ABLA October 20, 2024 7:48a m GI BLEED WITH ABLA October 21, 2024 7:08a m GI BLEED WITH ABLA October 22, 2024 8:05a m GI BLEED WITH ABLA October 22, 2024 12:41 pm GI BLEED WITH ABLA October 23, 2024 7:21a m GI BLEED WITH ABLA October 23, 2024 5:46p m GI BLEED WITH ABLA October 24, 2024 7:13a m Pacer Check Remote October 28, 2024 4:24 pm DIZZINESS November 07, 2024 3:11 pm Pacer Check Remote November 27, 2024 4: 24pm Referral from ED, SOB November 29, 2024 9:36am 11/07 [facility] ER FU December 07, 2024 12 :44pm Reason for Visit Admit Date Debility October 17, 2024 12:05 am Acute anemia October 17, 2024 12:05 am Acute blood loss anemia October 17, 2024 1 2:05am Adverse drug reaction October 17, 2024 12: 05am GI bleed October 17, 2024 12:05 am Diverticular disease October 17, 2024 12:0 5am GERD (gastroesophageal reflux disease) J patrick 2024 12:05am History of angiodysplasia of intestinal tract October 17, 2024 12:05am History of GI bleed October 17, 2024 12:05 am Status post placement of implantable loo p recorder December 07, 2024 12:44pm Essential hypertension December 07, 2024 12:44pm HLD (hyperlipidemia) December 07, 2024 1 2:44pm Chief Complaint Admit Date FINGER- RIGHT HAND September 28, 2024 2:25 pm Pacer Check Remote September 28, 2024 4:27 pm RECTAL HEMORRAGING October 15, 2024 8:09 pm GI BLEED WITH ABLA October 17, 2024 12:05 am GI BLEED WITH ABLA October 17, 2024 7:34a m GI BLEED WITH ABLA October 17, 2024 12:21 pm GI BLEED WITH ABLA October 18, 2024 6:11p m GI BLEED WITH ABLA October 19, 2024 7:08a m GI BLEED WITH ABLA October 20, 2024 7:48a m GI BLEED WITH ABLA October 21, 2024 7:08a m GI BLEED WITH ABLA October 22, 2024 8:05a m GI BLEED WITH ABLA October 22, 2024 12:41 pm GI BLEED WITH ABLA October 23, 2024 7:21a m GI BLEED WITH ABLA October 23, 2024 5:46p m GI BLEED WITH ABLA October 24, 2024 7:13a m Pacer Check Remote October 28, 2024 4:24 pm DIZZINESS November 07, 2024 3:11 pm Pacer Check Remote November 27, 2024 4: 24pm Referral from ED, SOB November 29, 2024 9:36am 11/07 [facility] ER FU December 07, 2024 12 :44pm Chief Complaint Admit Date FINGER- RIGHT HAND September 28, 2024 2:25 pm Pacer Check Remote September 28, 2024 4:27 pm RECTAL HEMORRAGING October 15, 2024 8:09 pm GI BLEED WITH ABLA October 17, 2024 12:05 am GI BLEED WITH ABLA October 17, 2024 7:34a m GI BLEED WITH ABLA October 17, 2024 12:21 pm GI BLEED WITH ABLA October 18, 2024 6:11p m GI BLEED WITH ABLA October 19, 2024 7:08a m GI BLEED WITH ABLA October 20, 2024 7:48a m GI BLEED WITH ABLA October 21, 2024 7:08a m GI BLEED WITH ABLA October 22, 2024 8:05a m GI BLEED WITH ABLA October 22, 2024 12:41 pm GI BLEED WITH ABLA October 23, 2024 7:21a m GI BLEED WITH ABLA October 23, 2024 5:46p m GI BLEED WITH ABLA October 24, 2024 7:13a m Pacer Check Remote October 28, 2024 4:24 pm DIZZINESS November 07, 2024 3:11 pm Pacer Check Remote November 27, 2024 4: 24pm Referral from ED, SOB November 29, 2024 9:36am 11/07 [facility] ER FU December 07, 2024 12 :44pm Pacer Check Remote December 27, 2024 4:26pm Additional Source Comments INFORMATION SOURCE (unrecogn ized section and content) DATE CREATED AUTHOR 10/11/2017 [facility] DATE CREATED AUTHOR AUTHOR'S ORGANIZ ATION 10/20/2018 [facility] DATE CREATED AUTHOR AUTHOR'S ORGANIZ ATION 11/18/2022 [facility] DATE CREATED AUTHOR AUTHOR'S ORGANIZ ATION 07/24/2023 [facility] DATE CREATED AUTHOR AUTHOR'S ORGANIZ ATION 01/07/2024 [facility] DATE CREATED AUTHOR AUTHOR'S ORGANIZ ATION 01/09/2025 [facility] Goals (unrecognized section and content) Goals may [...] Dr. Guille Jamison DO Attending Provider Active [employer] Relationship Specialty Start Date End Date Jose Hdz MD [address] [place] [id number] PCP - General Family Medicine 06/24/22 Team Status: Active Member Role Status Dates Dr. Jose Hdz MD Primary Care Provider Active Charles Contreras MD Emergency Provider Active Dr. Emily Verdugo MD Admit Provider, Other Provider Active Dr. Guille Jamison DO Attending Provider, Other Pro vider Active Team Status: Inactive Member Role Status Dates Dr. Jose Hdz MD Primary Care Provider, Attending Miguel gonzales Active Team Status: Inactive Member Role Status [...] MD Admit Provider, Attending Prov ider Active [employer] Relationship Specialty Start Date End Date Jose Hdz MD [address] [place] [address] PCP - General Family Medicine 06/24/22 Team [...] MD Attending Provider, Referring Pro vider Active [employer] Relationship Specialty Start Date End Date Jose Hdz MD [address] [place] [address] PCP - General Family Medicine 06/24/22 Team Status: Inactive Member Role Status Dates Dr. Jose Hdz MD Primary Care Provider Active Susy Stathopoulos , PROPERTY CLAIM REP-C Attending Provider, Referr ing Provider Active Team [...] MD Admit Provider, Other Provider Active Dr. Berandette Javier MD Attending Provider, Other Prov ider [...] Dr. Genny Worley MD Emergency Provider Active [employer] Relationship Specialty Start Date End Date Jose Hdz MD [address] [place] [address] [place] [address] PCP - General Family Medicine 06/24/22 Team [...] 2024 End: March 18, 2024 Dr. Jono Casaonva MD Emergency Provider Active S tart: March [...] tart: March 21, 2024 Dr. Sangita Lima , DO Emergency Provider Active S tart: March 21, 2024 Dr. Lamin Ritter , DO Admit Provider Active Start: March 21, 2024 Dr. Lamin Ritter , DO Attending Provider Active Start: March 21, 2024 Dr. Lamin Ritter , DO Other Provider Active Start: March 21, 2024 Team Status: Active Member Role Status Dates Dr. Jose Hdz MD Primary Care Provider Active Start: March 22, 2024 Dr. Sangita Lmia DO Referring Provider Active S tart: March 22, 2024 Dr. Sangita Lima DO Emergency Provider Active S tart: March 22, 2024 Dr. Lamin Ritter , DO Admit Provider Active Start: March 22, 2024 Dr. Lamin Ritter , DO Other Provider Active Start: March 22, [...] t: March 22, 2024 Dr. Brad Winslow , Attending Provider Active Start: March 22, 2024 [...] March 25, 2024 Dr. Brodie Swartz DO Other Provider Active Start: March 25, [...] End: July 17, 2024 Dr. Ta Soto , [...] Start: July 16, 2024 Dr. Brad Winslow DO Other Provider Active St art: July 16, 2024 Dr. Brodie Swartz DO Other Provider Active Start: July 16, [...] Start: July 16, 2024 Dr. Brodie Swartz DO Other Provider Active Start: July 16, [...] Start: July 16, 2024 Dr. Brad Winslow DO Other Provider Active St art: July 16, 2024 Dr. Brodie Swartz DO Referring Provider Active Start: July 16, 2024 Dr. Brodie Swartz DO Other Provider Active Start: July 16, [...] Provider Active Start: September 28, 2024 Abhilash McMorrow PROPERTY CLAIM REP, PROPERTY CLAIM REP-C Attending Provider Active Start: September 28, 2024 Abhilash [facility] PROPERTY CLAIM REP, PROPERTY CLAIM REP-C Referring Provider Active Start: September 28, 2024 Team Status: Inactive Member Role Status Dates Dr. Jose Hdz MD Primary Care Provider Active Start: September 28, 2024 End: September 28, 2024 [facility] REP, PROPERTY CLAIM REP-C Attending Provider Active Start: September 28, 2024 End: September 28, 2024 Abhilash [facility] PROPERTY CLAIM REP, PROPERTY CLAIM REP-C Referring Provider Active Start: September 28, 2024 [...] Active Start: July 16, 2024 Dr. Brad Friend , DO Other Provider Active St art: [...] 28, 2024 End: September 28, 2024 Abhilash [facility] PROPERTY CLAIM REP, PROPERTY CLAIM REP-C Attending Provider Active Start: September 28, 2024 End: September 28, 2024 Abhilash [facility]ora PROPERTY CLAIM REP, PROPERTY CLAIM REP-C Referring Provider Active Start: September 28, 2024 [...] October 16, 2024 End: October 17, 2024 Team Status: Inactive Member Role/Relationship Status Dates Dr. Jose Hdz MD Primary Care Provider Active Start: October 15, 2024 End: October 15, 2024 Ed Physician Provider Attending Provider Active Start: October 15, 2024 End: October 15, 2024 Ed Physician Provider Emergency Provider Active Start: October 15, 2024 End: October 15, 2024 Team Status: Inactive Member Role/Relationship Status Dates Dr. Jose Hdz MD Primary Care Provider Active Start: October 17, 2024 End: October 24, 2024 Dr. Ketan Couch DO Emergency Provider Activ e Start: October 17, 2024 End: October 24, 2024 Dr. Lamin Ritter DO Admit Provider Active Start: October 17, 2024 End: October 24, 2024 Dr. Lamin Ritter , DO Other Provider Active Start: October 17, 2024 End: October 24, 2024 Dr. Jose Tillman , DO Attending Provider Active Start: October 17, 2024 End: October 24, 2024 Dr. Ramonita Boothe , DO Other Provider Active Start : October 17, 2024 End: October 24, 2024 Team Status: Active Member Role/Relationship Status Dates Dr. Jose Hdz MD Primary Care Provider Active Start: October 17, 2024 Dr. Ketan Couch , DO Emergency Provider Activ e Start: October 17, 2024 Dr. Lamin Ritter , DO Admit Provider Active Start: October 17, 2024 Dr. Lamin Ritter , DO Other Provider Active Start: October 17, 2024 Dr. Ramonita Boothe , DO Attending Provider Active S tart: October 17, 2024 Dr. Ramonita Boothe , DO Other Provider Active Start : October 17, 2024 Team Status: Active Member Role/Relationship Status Dates Dr. Jose Hdz MD Primary Care Provider Active Start: October 17, 2024 Dr. Ketan Couch , DO Emergency Provider Activ e Start: October 17, 2024 Dr. Lamin Ritter , DO Admit Provider Active Start: October 17, 2024 Dr. Lamin Ritter , DO Other Provider Active Start: October 17, 2024 Dr. Ramonita Boothe , DO Other Provider Active Start : October 17, 2024 Dr. Brad Winslow , DO Attending Provider Active Start: October 17, 2024 Team Status: Active Member Role/Relationship Status Dates Dr. Jose Hdz MD Primary Care Provider Active Start: October 18, 2024 Dr. Ketna Couch , DO Emergency Provider Activ e Start: October 18, 2024 Dr. Lamin Ritter , DO Admit Provider Active Start: October 18, 2024 Dr. Lamin Ritter , DO Other Provider Active Start: October 18, 2024 Dr. Ramonita Boothe , DO Attending Provider Active S tart: October 18, 2024 Dr. Ramonita Boothe , DO Other Provider Active Start : October 18, 2024 Team Status: Active Member Role/Relationship Status Dates Dr. Jose Hdz MD Primary Care Provider Active Start: October 19, 2024 Dr. Ketan Couch , DO Emergency Provider Activ e Start: October 19, 2024 Dr. Lamin Ritter , DO Admit Provider Active Start: October 19, 2024 Dr. Lamin Ritter , DO Other Provider Active Start: October 19, 2024 Dr. Ramonita Boothe , DO Attending Provider Active S tart: October 19, 2024 Dr. Ramonita Boothe , DO Other Provider Active Start : October 19, 2024 Team Status: Active Member Role/Relationship Status Dates Dr. Jose Hdz MD Primary Care Provider Active Start: October 20, 2024 Dr. Ketan Couch , DO Emergency Provider Activ e Start: October 20, 2024 Dr. Lamin Ritter , DO Admit Provider Active Start: October 20, 2024 Dr. Lamin Ritter , DO Other Provider Active Start: October 20, 2024 Dr. Ramonita Boothe , DO Attending Provider Active S tart: October 20, 2024 Dr. Ramonita Boothe , DO Other Provider Active Start : October 20, 2024 Team Status: Active Member Role/Relationship Status Dates Dr. Jose Hdz MD Primary Care Provider Active Start: October 21, 2024 Dr. Ketan Couch , DO Emergency Provider Activ e Start: October 21, 2024 Dr. Lamin Ritter , DO Admit Provider Active Start: October 21, 2024 Dr. Lamin Ritter , DO Other Provider Active Start: October 21, 2024 Dr. Ramonita Boothe , DO Attending Provider Active S tart: October 21, 2024 Dr. Ramonita Boothe , DO Other Provider Active Start : October 21, 2024 Team Status: Active Member Role/Relationship Status Dates Dr. Jose Hdz MD Primary Care Provider Active Start: October 22, 2024 Dr. Ketan Couch , DO Emergency Provider Activ e Start: October 22, 2024 Dr. Lamin Ritter , DO Admit Provider Active Start: October 22, 2024 Dr. Lamin Ritter , DO Other Provider Active Start: October 22, 2024 Dr. Jose Tillman , DO Attending Provider Active Start: October 22, 2024 Dr. Jose Tillman , DO Other Provider Active Star t: October 22, 2024 Dr. Ramonita Boothe , DO Other Provider Active Start : October 22, 2024 Team Status: Active Member Role/Relationship Status Dates Dr. Jose Hdz MD Primary Care Provider Active Start: October 22, 2024 Dr. Ketan Couch , DO Emergency Provider Activ e Start: October 22, 2024 Dr. Lamin Ritter , DO Admit Provider Active Start: October 22, 2024 Dr. Lamin Ritter , DO Other Provider Active Start: October 22, 2024 Dr. Jose Tillman , DO Other Provider Active Star t: October 22, 2024 Dr. Ramonita Boothe , DO Other Provider Active Start : October 22, 2024 Dr. Brad Winslow , DO Attending Provider Active Start: October 22, 2024 Team Status: Active Member Role/Relationship Status Dates Dr. Jose Hdz MD Primary Care Provider Active Start: October 23, 2024 Dr. Ketan Couch , DO Emergency Provider Activ e Start: October 23, 2024 Dr. Lamin Ritter , DO Admit Provider Active Start: October 23, 2024 Dr. Lamin Ritter , DO Other Provider Active Start: October 23, 2024 Dr. Jose Tillman , DO Attending Provider Active Start: October 23, 2024 Dr. Jose Tillman , DO Other Provider Active Star t: October 23, 2024 Dr. Ramonita Boothe , DO Other Provider Active Start : October 23, 2024 Team Status: Active Member Role/Relationship Status Dates Dr. Jose Hdz MD Primary Care Provider Active Start: October 23, 2024 Dr. Ketan Couch , DO Emergency Provider Activ e Start: October 23, 2024 Dr. Lamin Ritter , DO Admit Provider Active Start: October 23, 2024 Dr. Lamin Ritter , DO Other Provider Active Start: October 23, 2024 Dr. Jose Tillman , DO Other Provider Active Star t: October 23, 2024 Dr. Ramonita Boothe , DO Other Provider Active Start : October 23, 2024 Dr. Brad Winslow , DO Attending Provider Active Start: October 23, 2024 Team Status: Active Member Role/Relationship Status Dates Dr. Jose Hdz MD Primary Care Provider Active Start: October 24, 2024 Dr. Ketan Couch , DO Emergency Provider Activ e Start: October 24, 2024 Dr. Lamin Ritter , DO Admit Provider Active Start: October 24, 2024 Dr. Lamin Ritter , DO Other Provider Active Start: October 24, 2024 Dr. Jose Tillman , DO Attending Provider Active Start: October 24, 2024 Dr. Jose Tillman , DO Other Provider Active Star t: October 24, 2024 Dr. Ramonita Boothe , DO Other Provider Active Start : October 24, 2024 Team Status: Inactive Member Role/Relationship Status Dates Dr. Jose Hdz MD Primary Care Provider Active Start: July 15, 2024 End: July 17, 2024 Dr. Ta Soto , [...] 17, 2024 Dr. Brodie Swartz , DO Attending Provider Active Start: July 15, [...] 16, 2024 Dr. Brodie Swartz , DO Referring Provider Active Start: July 16, [...] July 16, 2024 Dr. Brad Winslow , Other Provider Active St art: July 16, 2024 Dr. Brodie Swartz DO Attending Provider Active Start: July 16, 2024 Dr. Brodie Swartz DO Other Provider Active Start: July 16, [...] 2024 End: September 28, 2024 Abhilash Dominguez PROPERTY CLAIM REP, PROPERTY CLAIM REP-C Attending Provider Active Start: September 28, 2024 End: September 28, 2024 Abhilash Dominguez PROPERTY CLAIM REP, PROPERTY CLAIM REP-C Referring Provider Active Start: September 28, 2024 [...] End: October 15, 2024 Ed Physician Provider Attending Provider Active Start: October 15, 2024 End: October 15, 2024 Ed Physician Provider Emergency Provider Active Start: October 15, 2024 End: October 15, 2024 Team Status: Inactive Member Role/Relationship Status Dates Dr. Jose Hdz MD Primary Care Provider Active Start: October 17, 2024 End: October 24, 2024 Dr. Ketan Couch , DO Emergency Provider Activ e Start: October 17, 2024 End: October 24, 2024 Dr. Lamin Ritter , DO Admit Provider Active Start: October 17, 2024 End: October 24, 2024 Dr. Lamin Ritter , DO Other Provider Active Start: October 17, 2024 End: October 24, 2024 Dr. Jose Tillman , Attending Provider Active Start: October 17, 2024 End: October 24, 2024 Dr. Ramonita Boothe , Other Provider Active Start : October 17, 2024 End: October 24, 2024 Team Status: Active Member Role/Relationship Status Dates Dr. Jose Hdz MD Primary Care Provider Active Start: October 17, 2024 Dr. Ketan Couch DO Emergency Provider Activ e Start: October 17, 2024 Dr. Lamin Ritter DO Admit Provider Active Start: October 17, 2024 Dr. Lamin Ritter , DO Other Provider Active Start: October 17, 2024 Dr. Ramonita Boothe , Attending Provider Active S tart: October 17, 2024 Dr. Ramonita Boothe , DO Other Provider Active Start : October 17, 2024 Team Status: Active Member Role/Relationship Status Dates Dr. Jose Hdz MD Primary Care Provider Active Start: October 17, 2024 Dr. Ketan Couch , DO Emergency Provider Activ e Start: October 17, 2024 Dr. Lamin Ritter , DO Admit Provider Active Start: October 17, 2024 Dr. Lamin Ritter , DO Other Provider Active Start: October 17, 2024 Dr. Ramonita Boothe , DO Other Provider Active Start : October 17, 2024 Dr. Brad Winslow , DO Attending Provider Active Start: October 17, 2024 Team Status: Active Member Role/Relationship Status Dates Dr. Jose Hdz MD Primary Care Provider Active Start: October 18, 2024 Dr. Ketan Couch , DO Emergency Provider Activ e Start: October 18, 2024 Dr. Lamin Ritter , DO Admit Provider Active Start: October 18, 2024 Dr. Lamin Ritter , DO Other Provider Active Start: October 18, 2024 Dr. Ramonita Boothe , DO Attending Provider Active S tart: October 18, 2024 Dr. Ramonita Boothe , DO Other Provider Active Start : October 18, 2024 Team Status: Active Member Role/Relationship Status Dates Dr. Jose Hdz MD Primary Care Provider Active Start: October 19, 2024 Dr. Ketan Couch , DO Emergency Provider Activ e Start: October 19, 2024 Dr. Lamin Ritter , DO Admit Provider Active Start: October 19, 2024 Dr. Lamin Ritter , DO Other Provider Active Start: October 19, 2024 Dr. Ramonita Boothe , DO Attending Provider Active S tart: October 19, 2024 Dr. Ramonita Boothe , DO Other Provider Active Start : October 19, 2024 Team Status: Active Member Role/Relationship Status Dates Dr. Jose Hdz MD Primary Care Provider Active Start: October 20, 2024 Dr. Ketan Couch , DO Emergency Provider Activ e Start: October 20, 2024 Dr. Lamin Ritter , DO Admit Provider Active Start: October 20, 2024 Dr. Lamin Ritter , DO Other Provider Active Start: October 20, 2024 Dr. Ramonita Boothe , DO Attending Provider Active S tart: October 20, 2024 Dr. Ramonita Boothe , DO Other Provider Active Start : October 20, 2024 Team Status: Active Member Role/Relationship Status Dates Dr. Jose Hdz MD Primary Care Provider Active Start: October 21, 2024 Dr. Ketan Couch , DO Emergency Provider Activ e Start: October 21, 2024 Dr. Lamin Ritter , DO Admit Provider Active Start: October 21, 2024 Dr. Lamin Ritter , DO Other Provider Active Start: October 21, 2024 Dr. Ramonita Boothe , DO Attending Provider Active S tart: October 21, 2024 Dr. Ramonita Boothe , DO Other Provider Active Start : October 21, 2024 Team Status: Active Member Role/Relationship Status Dates Dr. Jose Hdz MD Primary Care Provider Active Start: October 22, 2024 Dr. Ketan Couch , DO Emergency Provider Activ e Start: October 22, 2024 Dr. Lamin Ritter , DO Admit Provider Active Start: October 22, 2024 Dr. Lamin Ritter , DO Other Provider Active Start: October 22, 2024 Dr. Jose Tillman , DO Attending Provider Active Start: October 22, 2024 Dr. Jose Tillman , DO Other Provider Active Star t: October 22, 2024 Dr. Ramonita Boothe , DO Other Provider Active Start : October 22, 2024 Team Status: Active Member Role/Relationship Status Dates Dr. Jose Hdz MD Primary Care Provider Active Start: October 22, 2024 Dr. Ketan Couch , DO Emergency Provider Activ e Start: October 22, 2024 Dr. Lamin Ritter , DO Admit Provider Active Start: October 22, 2024 Dr. Lamin Ritter , DO Other Provider Active Start: October 22, 2024 Dr. Jose Tillman , DO Other Provider Active Star t: October 22, 2024 Dr. Ramonita Boothe , DO Other Provider Active Start : October 22, 2024 Dr. Brad Winslow , DO Attending Provider Active Start: October 22, 2024 Team Status: Active Member Role/Relationship Status Dates Dr. Jose Hdz MD Primary Care Provider Active Start: October 23, 2024 Dr. Ketan Couch , DO Emergency Provider Activ e Start: October 23, 2024 Dr. Lamin Ritter , DO Admit Provider Active Start: October 23, 2024 Dr. Lamin Ritter , DO Other Provider Active Start: October 23, 2024 Dr. Jose Tillman , DO Attending Provider Active Start: October 23, 2024 Dr. Jose Tillman , DO Other Provider Active Star t: October 23, 2024 Dr. Ramonita Boothe , DO Other Provider Active Start : October 23, 2024 Team Status: Active Member Role/Relationship Status Dates Dr. Jose Hdz MD Primary Care Provider Active Start: October 23, 2024 Dr. Ketan Couch , DO Emergency Provider Activ e Start: October 23, 2024 Dr. Lamin Ritter , DO Admit Provider Active Start: October 23, 2024 Dr. Lamin Ritter , DO Other Provider Active Start: October 23, 2024 Dr. Jose Tillman , DO Other Provider Active Star t: October 23, 2024 Dr. Ramonita Boothe , DO Other Provider Active Start : October 23, 2024 Dr. Brad Winslow , DO Attending Provider Active Start: October 23, 2024 Team Status: Active Member Role/Relationship Status Dates Dr. Jose Hdz MD Primary Care Provider Active Start: October 24, 2024 Dr. Ketan Couch , DO Emergency Provider Activ e Start: October 24, 2024 Dr. Lamin Ritter , DO Admit Provider Active Start: October 24, 2024 Dr. Lamin Ritter , DO Other Provider Active Start: October 24, 2024 Dr. Jose Tillman , DO Attending Provider Active Start: October 24, 2024 Dr. Jose Tillman , DO Other Provider Active Star t: October 24, 2024 Dr. Ramonita Boothe , DO Other Provider Active Start : October 24, 2024 Team Status: Inactive Member Role/Relationship Status Dates Dr. Jose Hdz MD Primary Care Provider Active Start: October 28, 2024 End: October 28, 2024 Dr. Catalino Sidhu MD Attending Provider Active S tart: October 28, 2024 End: October 28, 2024 Team Status: Active Member Role/Relationship Status Dates Dr. Jose Hdz MD Primary Care Provider Active Start: October 17, 2024 Dr. Ketan Couch , DO Emergency Provider Activ e Start: October 17, 2024 Dr. Lamin Ritter , DO Admit Provider Active Start: October 17, 2024 Dr. Lamin Ritter , Referring Provider Active Start: October 17, 2024 Dr. Lamin Ritter , Other Provider Active Start: October 17, 2024 Dr. Ramonita Boothe , Other Provider Active Start : October 17, 2024 Dr. Brad Winslow DO Attending Provider Active Start: October 17, 2024 Team Status: Active Member Role/Relationship Status Dates Dr. Jose Hdz MD Primary Care Provider Active Start: November 06, 2024 Dr. Jose Hdz MD Attending Provider Active St art: November 06, 2024 Dr. Jose Hdz MD Referring Provider Active St art: November 06, 2024 Team Status: Inactive Member Role/Relationship Status Dates Dr. Jose Hdz MD Primary Care Provider Active Start: November 07, 2024 End: November 07, 2024 Dr. Charlie High DO Referring Provider Active Start: November 07, 2024 End: November 07, 2024 Dr. Charlie High DO Emergency Provider Active Start: November 07, 2024 End: November 07, 2024 Team Status: Inactive Member Role/Relationship Status Dates Dr. Jose Hdz MD Primary Care Provider Active Start: November 06, 2024 End: November 06, 2024 Dr. Jose Hdz MD Attending Provider Active St art: November 06, 2024 End: November 06, 2024 Dr. Jose Hdz MD Referring Provider Active St art: November 06, 2024 End: November 06, 2024 Team Status: Inactive Member Role/Relationship Status [...] 2024 End: September 28, 2024 Abhilash Dominguez PROPERTY CLAIM REP, PROPERTY CLAIM REP-C Attending Provider Active Start: September 28, 2024 End: September 28, 2024 Abhilash Dominguez PROPERTY CLAIM REP, PROPERTY CLAIM REP-C Referring Provider Active Start: September 28, 2024 [...] End: October 15, 2024 Ed Physician Provider Attending Provider Active Start: October 15, 2024 End: October 15, 2024 Ed Physician Provider Emergency Provider Active Start: October 15, 2024 End: October 15, 2024 Team Status: Inactive Member Role/Relationship Status Dates Dr. Jose Hdz MD Primary Care Provider Active Start: October 17, 2024 End: October 24, 2024 Dr. Ketan Couch DO Emergency Provider Activ e Start: October 17, 2024 End: October 24, 2024 Dr. Lamin Ritter , DO Admit Provider Active Start: October 17, 2024 End: October 24, 2024 Dr. Lamin Ritter , DO Other Provider Active Start: October 17, 2024 End: October 24, 2024 Dr. Jose Tillman , Attending Provider Active Start: October 17, 2024 End: October 24, 2024 Dr. Ramonita Boothe , Other Provider Active Start : October 17, 2024 End: October 24, 2024 Team Status: Active Member Role/Relationship Status Dates Dr. Jose Hdz MD Primary Care Provider Active Start: October 17, 2024 Dr. Ketan Couch DO Emergency Provider Activ e Start: October 17, 2024 Dr. Lamin Ritter DO Admit Provider Active Start: October 17, 2024 Dr. Lamin Ritter DO Other Provider Active Start: October 17, 2024 Dr. Ramonita Boothe , Attending Provider Active S tart: October 17, 2024 Dr. Ramonita Boothe , DO Other Provider Active Start : October 17, 2024 Team Status: Active Member Role/Relationship Status Dates Dr. Jose Hdz MD Primary Care Provider Active Start: October 17, 2024 Dr. Ketan Couch DO Emergency Provider Activ e Start: October 17, 2024 Dr. Lamin Ritter , DO Admit Provider Active Start: October 17, 2024 Dr. Lamin Ritter , DO Referring Provider Active Start: October 17, 2024 Dr. Lamin Ritter , DO Other Provider Active Start: October 17, 2024 Dr. Ramonita Boothe , DO Other Provider Active Start : October 17, 2024 Dr. Brad Winslow , DO Attending Provider Active Start: October 17, 2024 Team Status: Active Member Role/Relationship Status Dates Dr. Jose Hdz MD Primary Care Provider Active Start: October 18, 2024 Dr. Ketan Couch , DO Emergency Provider Activ e Start: October 18, 2024 Dr. Lamin Ritter , DO Admit Provider Active Start: October 18, 2024 Dr. Lamin Ritter , DO Other Provider Active Start: October 18, 2024 Dr. Ramonita Boothe , DO Attending Provider Active S tart: October 18, 2024 Dr. Ramonita Boothe , DO Other Provider Active Start : October 18, 2024 Team Status: Active Member Role/Relationship Status Dates Dr. Jose Hdz MD Primary Care Provider Active Start: October 19, 2024 Dr. Ketan Couch , DO Emergency Provider Activ e Start: October 19, 2024 Dr. Lamin Ritter , DO Admit Provider Active Start: October 19, 2024 Dr. Lamin Ritter , DO Other Provider Active Start: October 19, 2024 Dr. Ramonita Boothe , DO Attending Provider Active S tart: October 19, 2024 Dr. Ramonita Boothe , DO Other Provider Active Start : October 19, 2024 Team Status: Active Member Role/Relationship Status Dates Dr. Jose Hdz MD Primary Care Provider Active Start: October 20, 2024 Dr. Ketan Couch , DO Emergency Provider Activ e Start: October 20, 2024 Dr. Lamin Ritter , DO Admit Provider Active Start: October 20, 2024 Dr. Lamin Ritter , DO Other Provider Active Start: October 20, 2024 Dr. Ramonita Boothe , DO Attending Provider Active S tart: October 20, 2024 Dr. Ramonita Boothe , DO Other Provider Active Start : October 20, 2024 Team Status: Active Member Role/Relationship Status Dates Dr. Jose Hdz MD Primary Care Provider Active Start: October 21, 2024 Dr. Ketan Couch , DO Emergency Provider Activ e Start: October 21, 2024 Dr. Lamin Ritter , DO Admit Provider Active Start: October 21, 2024 Dr. Lamin Ritter , DO Other Provider Active Start: October 21, 2024 Dr. Ramonita Boothe , DO Attending Provider Active S tart: October 21, 2024 Dr. Ramonita Boothe , DO Other Provider Active Start : October 21, 2024 Team Status: Active Member Role/Relationship Status Dates Dr. Jose Hdz MD Primary Care Provider Active Start: October 22, 2024 Dr. Ketan Couch , DO Emergency Provider Activ e Start: October 22, 2024 Dr. Lamin Ritter , DO Admit Provider Active Start: October 22, 2024 Dr. Lamin Ritter , DO Other Provider Active Start: October 22, 2024 Dr. Jose Tillman , DO Attending Provider Active Start: October 22, 2024 Dr. Jose Tillman , DO Other Provider Active Star t: October 22, 2024 Dr. Ramonita Boothe , DO Other Provider Active Start : October 22, 2024 Team Status: Active Member Role/Relationship Status Dates Dr. Jose Hdz MD Primary Care Provider Active Start: October 22, 2024 Dr. Ketan Couch , DO Emergency Provider Activ e Start: October 22, 2024 Dr. Lamin Ritter , DO Admit Provider Active Start: October 22, 2024 Dr. Lamin Ritter , DO Other Provider Active Start: October 22, 2024 Dr. Jose Tillman , DO Other Provider Active Star t: October 22, 2024 Dr. Ramonita Boothe , DO Referring Provider Active S tart: October 22, 2024 Dr. Ramonita Boothe , DO Other Provider Active Start : October 22, 2024 Dr. Brad Winslow , DO Attending Provider Active Start: October 22, 2024 Team Status: Active Member Role/Relationship Status Dates Dr. Jose Hdz MD Primary Care Provider Active Start: October 23, 2024 Dr. Ketan Couch , DO Emergency Provider Activ e Start: October 23, 2024 Dr. Lamin Ritter , DO Admit Provider Active Start: October 23, 2024 Dr. Lamin Ritter , DO Other Provider Active Start: October 23, 2024 Dr. Jose Tillman , DO Attending Provider Active Start: October 23, 2024 Dr. Jose Tillman , DO Other Provider Active Star t: October 23, 2024 Dr. Ramonita Boothe , DO Other Provider Active Start : October 23, 2024 Team Status: Active Member Role/Relationship Status Dates Dr. Jose Hdz MD Primary Care Provider Active Start: October 23, 2024 Dr. Ketan Couch , DO Emergency Provider Activ e Start: October 23, 2024 Dr. Lamin Ritter , DO Admit Provider Active Start: October 23, 2024 Dr. Lamin Ritter , DO Other Provider Active Start: October 23, 2024 Dr. Jose Tillman , DO Referring Provider Active Start: October 23, 2024 Dr. Jose Tillman , DO Other Provider Active Star t: October 23, 2024 Dr. Ramonita Boothe , DO Other Provider Active Start : October 23, 2024 Dr. Brad Winslow , DO Attending Provider Active Start: October 23, 2024 Team Status: Active Member Role/Relationship Status Dates Dr. Jose Hdz MD Primary Care Provider Active Start: October 24, 2024 Dr. Ketan Couch , DO Emergency Provider Activ e Start: October 24, 2024 Dr. Lamin Ritter , DO Admit Provider Active Start: October 24, 2024 Dr. Lamin Ritter , DO Other Provider Active Start: October 24, 2024 Dr. Jose Tillman , Attending Provider Active Start: October 24, 2024 Dr. Jose Tillman , DO Other Provider Active Star t: October 24, 2024 Dr. Ramonita Boothe , DO Other Provider Active Start : October 24, 2024 Team Status: Inactive Member Role/Relationship Status Dates Dr. Jose Hdz MD Primary Care Provider Active Start: October 28, 2024 End: October 28, 2024 Dr. Catalino Sidhu MD Attending Provider Active S tart: October 28, 2024 End: October 28, 2024 Team Status: Inactive Member Role/Relationship Status Dates Dr. Jose Hdz MD Primary Care Provider Active Start: November 06, 2024 End: November 06, 2024 Dr. Jose Hdz MD Attending Provider Active St art: November 06, 2024 End: November 06, 2024 Dr. Jose Hdz MD Referring Provider Active St art: November 06, 2024 End: November 06, 2024 Team Status: Inactive Member Role/Relationship Status Dates Dr. Jose Hdz MD Primary Care Provider Active Start: November 07, 2024 End: November 07, 2024 Dr. Charlie High DO Attending Provider Active Start: November 07, 2024 End: November 07, 2024 Dr. Charlie High DO Referring Provider Active Start: November 07, 2024 End: November 07, 2024 Dr. Charlie High DO Emergency Provider Active Start: November 07, 2024 End: November 07, 2024 Team Status: Inactive Member Role/Relationship Status Dates Dr. Jose Hdz MD Primary Care Provider Active Start: November 27, 2024 End: November 27, 2024 Dr. Catalino Sidhu MD Attending Provider Active S tart: November 27, 2024 End: November 27, 2024 Team Status: Inactive Member Role/Relationship Status Dates Dr. Jose Hdz MD Primary Care Provider Active Start: November 29, 2024 End: November 29, 2024 Dr. Charlie High DO Attending Provider Active Start: November 29, 2024 End: November 29, 2024 Dr. Charlie High DO Referring Provider Active Start: November 29, 2024 End: November 29, 2024 Team Status: Active Member Role/Relationship Status Dates Dr. Jose Hdz MD Primary Care Provider Active Start: November 29, 2024 Dr. Catalino Sidhu MD Attending Provider Active S tart: November 29, 2024 Team Status: Inactive Member Role/Relationship Status Dates Dr. Jose Hdz MD Primary Care Provider Active Start: December 07, 2024 End: December 07, 2024 Dr. Jose Hdz MD Referring Provider Active St art: December 07, 2024 End: December 07, 2024 Teresa Trevino PA, PA Attending Provider Active Start: December 07, 2024 End: December 07, 2024 Team Status: Inactive Member Role/Relationship Status Dates Dr. Jose Hdz MD Primary Care Provider Active Start: September 28, 2024 End: September 28, 2024 Abhilash Dominguez PROPERTY CLAIM REP, PROPERTY CLAIM REP-C Attending Provider Active Start: September 28, 2024 End: September 28, 2024 Abhilash Dominguez PROPERTY CLAIM REP, PROPERTY CLAIM REP-C Referring Provider Active Start: September 28, 2024 [...] End: October 15, 2024 Ed Physician Provider Attending Provider Active Start: October 15, 2024 End: October 15, 2024 Ed Physician Provider Emergency Provider Active Start: October 15, 2024 End: October 15, 2024 Team Status: Inactive Member Role/Relationship Status Dates Dr. Jose Hdz MD Primary Care Provider Active Start: October 17, 2024 End: October 24, 2024 Dr. Ketan Couch ,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
[2025-01-10 20:41] LABS: Anion Gap 13 (5-15); BUN 22 mg/dL (4-19); BUN/Creat Ratio 27.9 RATIO (10-20); Calcium,Total 10.0 mg/dL (7.6-11.0); Carbon Dioxide 23.8 mmol/L (21.0-32.0); Chloride 97 mmol/L (98-108); Estimated Creatinine Clearance 43.30 ml/min (50-250); Glucose 116 mg/dL (70-99); Potassium 3.4 mmol/L (3.3-5.1)
--- NOTE | 2025-01-10 21:38 | EX.ED.DYSGE1 ---
HPI History of Present Illness Chief Complaint: Diarrhea Detail of Chief Complaint: Diarrhea and left lower quadrant abdominal pain Informant: patient and family Onset/Context/Timing Onset: Days Context: Sudden Onset Quality: Left lower quadrant abdominal pain started the past 24 hours Location: Left lower quadrant Current Severity: Mild Maximum Severity: Moderate Worsened by: Palpation Relieved by: Not applicable Associated Symptoms Associated Symptoms: Diarrhea Narrative Narrative: Patient is an 84-year-old woman. She is on palliative care. She presents because of diarrhea. She had outpatient x-ray on January 07, 2025. The x-ray is reviewed by me and reveals a nonobstructive bowel gas pattern with increased fecal matter noted. She denies fever, chills night sweats. She denies vomiting. She denies dysuria, frequency, urgency or hematuria. She denies cardiac or respiratory symptoms. She has a history of recurrent diverticulitis. Dr. Winslow recommended surgery. She declined because she is 84 years old and on palliative care. There is no other complaints. She has not been on an antibiotic in the past month. She is had no ill contacts. She is not noted blood or mucus in her stool. Prior similar symptoms: Yes Recent Illness/Hospitalization: No PFSH PFS Medical History GERD (gastroesophageal reflux disease) History of GI bleed History of angiodysplasia of intestinal tract Diverticular disease Anemia GI bleed History of COPD Head injury Laceration of head Inability to ambulate due to knee ZONIA (obstructive sleep apnea) Essential hypertension History of dementia History of CVA in adulthood Recurrent episodes of unresponsiveness TIA (transient ischemic attack) Confusion COPD (chronic obstructive pulmonary disease) Alzheimer's dementia History of GI bleed GERD (gastroesophageal reflux disease) Anxiety and depression COVID-19 Hypertensive emergency without congestive heart failure DCIS (ductal carcinoma in situ) of breast Vitamin D deficiency Hypercholesterolemia Arthritis Ductal carcinoma in situ (DCIS) of right breast Fall Hypothyroidism Home Medications ?Medication ?Instructions ?Recorded ?Last Taken ?Type pramipexole 1.5 mg tablet 1.5 mg PO QHS restless legs 10/16/22 07/14/24 History valsartan 320 1 tab PO DAILY 10/16/22 07/14/24 History mg-hydrochlorothiazide 25 mg tablet memantine 10 mg tablet 10 mg PO DAILY 04/28/23 07/15/24 History amlodipine 5 mg tablet 5 mg PO DAILY 06/11/23 07/14/24 History pantoprazole 40 mg tablet,delayed 40 mg PO BID 30 days #60 tabs 03/25/24 07/15/24 Rx release diphenhydramine 25 1 tab PO QHS PRN sleep 07/15/24 07/14/24 History mg-acetaminophen 500 mg tablet (Acetaminophen PM) escitalopram oxalate 5 mg tablet 5 mg PO 1700 depression 07/15/24 07/14/24 History aspirin 81 mg capsule 81 mg PO DAILY 30 days #30 caps 07/17/24 Unknown Rx Held on 10/23/24. Instructions: Resume on 10/27/24. calcium carbonate 600 mg PO QDAY 12/07/24 Unknown History cholecalciferol (vitamin D3) 25 25 mcg PO QDAY 12/07/24 Unknown History mcg (1,000 unit) tablet hydralazine 25 mg tablet 25 mg PO BID blood pressure #180 12/07/24 Unknown Rx tabs magnesium oxide 200 mg PO QDAY 12/07/24 Unknown History psyllium husk 3.4 gram/5.4 gram 1 tbsp PO QDAY 12/07/24 Unknown History oral powder (Metamucil) amoxicillin 875 mg-potassium 875 mg PO Q12H #20 TABLETS 01/10/25 Unknown Rx clavulanate 125 mg tablet Allergy/AdvReac Type Severity Reaction Status Date / Time lisinopril Allergy Mild cough Verified 01/10/25 18:37 alendronate sodium (From Allergy Unknown unknown Verified 01/10/25 18:37 Fosamax) Sulfa (Sulfonamide Allergy Rash Verified 01/10/25 18:37 Antibiotics) atorvastatin (From Lipitor) AdvReac Mild muscle Verified 01/10/25 18:37 aches rosuvastatin (From Crestor) AdvReac Mild muscle Verified 01/10/25 18:37 aches codeine AdvReac Nausea Verified 01/10/25 18:37 NSAIDS (Non-Steroidal AdvReac Bleeding Verified 01/10/25 18:37 Anti-Inflamma Family History Mother Heart disease CVA (cerebral vascular accident) Father Heart disease Surgical History History of colonoscopy (~10/2024) Status post placement of implantable loop recorder (11/08/22) History of right hip replacement History of left mastoidectomy History of lumpectomy of right breast History of thyroid surgery History of hysterectomy Social History household members: spouse Smoking Status: Former smoker how long ago did patient quit smoking: Quit ~ 24-25 years prior. alcohol intake: current alcohol intake frequency: a few times a month details: 1 drink/[place] nightly. substance use type: other details: Given THC chew per her family for sleep but prior no substance use. ROS ROS ED Constitutional Constitutional ED: Denies chills, fever(s), subjective, sweats or weight loss Eyes Eyes: Denies blurry vision or change in vision ENT ENT ED: Reports other Details: Dry mouth. ; Denies ear pain, rhinorrhea or sore throat Cardiovascular Cardiovascular: Denies chest pain or palpitations Respiratory/Chest Respiratory/Chest: Denies cough, dyspnea or dyspnea on exertion Gastrointestinal Gastrointestinal: Reports abdominal pain and diarrhea; Denies constipation, melena or vomiting Genitourinary Genitourinary ED: Denies dysuria, hematuria or urinary frequency Musculoskeletal Musculoskeletal: Denies arthralgias, back pain or myalgias Integumentary Denies rash Neurologic Neurologic: Reports weakness; Denies headache(s) or paresthesias Hematologic/Lymphatic Hematologic/Lymphatic: Reports systems reviewed and no addt'l complaints, except as documented EXAM Physical Exam Const Vital Signs: 01/10/25 18:37 01/10/25 20:36 Temperature 96.8 F L Temperature Source Temporal Pulse Rate 86 65 Respiratory Rate 18 16 Blood Pressure 149/60 H 142/64 H Blood Pressure Mean 89 90 Pulse Ox 95 98 Oxygen Delivery Method Room Air Room Air Positive well nourished and well developed Constitutional Narrative: Pleasant 84-year-old woman who appears in no distress. General Appearance ED: well developed and pallor; Negative for diaphoretic HEENT Reports dry mucous membranes HEENT Narrative: Head is atraumatic and normocephalic. Ears normal. Nares patent. Mouth ED: Yes dry mucous membranes Mouth: dry mucous membranes Eyes PERRL and EOMs intact bilaterally General Eye ED: Negative for pale conjunctiva or scleral icterus Neck no lymphadenopathy and supple Chest Wall inspection of chest normal and palpation of chest normal Resp normal respiratory effort and clear to auscultation bilaterally Cardio regular rate, regular rhythm, S1 normal heart sound, S2 normal heart sound and no murmurs GI normal to inspection, nondistended, normoactive bowel sounds and no masses; Negative for non-tender, non-distended or hepatosplenomegaly Auscultation: hyperactive bowel sounds Palpation: soft and tender LLQ; Negative for guarding or rebound tenderness present Extremity normal to inspection General Extremety ED: Negative for edema General Extremity: Negative for edema Neuro oriented x3 and CN's II-XII intact bilaterally Sensorium / Orientation: alert Psych mental status grossly normal Skin no rashes or lesions noted, no wounds and skin turgor normal General Skin Exam: pallor; Negative for elasticity normal or jaundice MDM MDM MDM Narrative Medical decision making narrative: In light of x-ray findings rectal exam was performed. Patient has water noted. Will obtain stool for occult blood. Since she has left lower quadrant pain CT of the abdomen pelvis with IV contrast was ordered. Especially in light of the history of recurrent diverticulitis. CBC to assess white count differential. Electrolyte panel to assess renal function and to evaluate for hypokalemia in light of the amount of diarrhea she has had. Also to assess her CO2 anion gap. History & Record Review Additional record(s) reviewed:: Prior outpatient record (Dr. Winslow's note was reviewed. No change in history that I obtained.), Prior ED visit and Prior labs Lab Data Labs: Laboratory Results - last 24 hr 01/10/25 19:41 WBC 10.0 RBC 4.41 Hgb 11.2 L Hct 35.3 L MCV 80.0 L MCH 25.4 L MCHC 31.7 L RDW Std Deviation 48.2 H RDW Coeff of Kierra 16.6 H Plt Count 317 MPV 9.7 Immature Gran % (Auto) 0.400 Neut % (Auto) 72.1 H Lymph % (Auto) 14.0 L [place] % (Auto) 11.7 H Eos % (Auto) 1.2 Baso % (Auto) 0.6 Absolute Neuts (auto) 7.2 Absolute Lymphs (auto) 1.40 Nucleated RBC % 0 Sodium 133 Potassium 3.4 Chloride 97 L Carbon Dioxide 23.8 Anion Gap 13 BUN 22 H Creatinine 0.78 Estim Creat Clear Calc 43.30 L Est GFR (MDRD) Non-Af 75 BUN/Creatinine Ratio 27.9 H Glucose 116 H Calcium 10.0 Radiography Diagnostic Testing: Clinical Impression(s) from Imaging Studies Abdomen/Pelvis CT 01/10/25 20:05 IMPRESSION: Acute uncomplicated sigmoid diverticulitis. Reading Location: [facility] Treatment and Re-Evaluation :: Patient and daughter were informed that she has diverticulitis. She is a candidate for outpatient treatment. She received her first dose of Augmentin in the emergency department. Discharge Plan Triage Chief Complaint: Diarrhea ED Provider: Nick Riggins Dx/Rx/DC Orders Clinical Impression: Diverticulitis of sigmoid colon, Diarrhea, Elevated blood pressure reading with diagnosis of hypertension, Microcytic anemia, Occult blood in stools, Acute prerenal azotemia Instructions: ED Diverticulitis Prescriptions: New amoxicillin-pot clavulanate 875-125 mg tablet 875 mg PO Q12H Qty: 20 0RF No Action Metamucil 3.4 gram/5.4 gram powder 1 tbsp PO QDAY Rx Instructions: mix into at least 8 oz of water or juice before administering calcium carbonate 600 mg calcium (1,500 mg) tablet 600 mg PO QDAY cholecalciferol (vitamin D3) 25 mcg (1,000 unit) tablet 25 mcg PO QDAY magnesium oxide 200 mg magnesium tablet 200 mg PO QDAY hydralazine 25 mg tablet 25 mg PO BID Qty: 180 3RF pramipexole 1.5 mg tablet 1.5 mg PO QHS Patient Comments: TAKE 1 TABLET 2 TO 3 HOURS BEFORE BEDTIME FOR RESTLESS LEGS valsartan-hydrochlorothiazide 320-25 mg tablet 1 tab PO DAILY memantine 10 mg tablet 10 mg PO DAILY amlodipine 5 mg tablet 5 mg PO DAILY escitalopram oxalate 5 mg tablet 5 mg PO 1700 diphenhydramine-acetaminophen [Acetaminophen PM] 25-500 mg tablet 1 tab PO QHS PRN (Reason: sleep) aspirin 81 mg capsule 81 mg PO DAILY 30 Days Qty: 30 0RF pantoprazole 40 mg Tablet,Delayed Release (Dr/Ec) 40 mg PO BID 30 Days Qty: 60 2RF Primary Care Provider: Vikram Segura Referrals: Vikram Segura MD [Primary Care Provider, [facility]] - 3-5 Days Print Language: Salvadorean Disposition Disposition: Home, Self Care
[2025-01-10 22:00] VITALS: BP 169/79; PULSE 70; RESP 18; O2SAT 97
[2025-01-10 22:16] VITALS: BP 169/79; PULSE 70; RESP 18; TEMP 37; O2SAT 97
== END 2025-01-10 22:16 | disposition home or self-care (01) ==
PROVIDERS: Emergency Provider Emergency Medicine; PCP Family Medicine; Visit Provider Emergency Medicine
DX: K57.30 Diverticulosis of large intestine without perforation or abscess without bleeding (principal); G30.9 Alzheimer's disease, unspecified; F02.80 Dementia in other diseases classified elsewhere, unspecified severity, without behavioral disturbance, psychotic disturbance, mood disturbance, and anxiety; R19.5 Other fecal abnormalities; R39.2 Extrarenal uremia; D50.9 Iron deficiency anemia, unspecified; I10 Essential (primary) hypertension; Z51.5 Encounter for palliative care; Z79.82 Long term (current) use of aspirin; Z79.899 Other long term (current) drug therapy; Z86.16 Personal history of COVID-19; Z87.891 Personal history of nicotine dependence
CPT/HCPCS: 74177; 80048; 82274; 85025; 99283; Q9967

== ENCOUNTER 2025-01-13 10:26 | Emergency (ER) | payer MEDICARE, SELFPAY ==
[2025-01-13 10:28] VITALS: BP 134/57; PULSE 68; RESP 18; TEMP 36.9; O2SAT 96; BMI 21.7
[2025-01-13 10:46] VITALS: BP 122/64; PULSE 61; RESP 17; TEMP 36.4
--- NOTE | 2025-01-13 10:48 | ED.VIS.DYS ---
HPI History of Present Illness Chief Complaint: Shortness of Breath Detail of Chief Complaint: Shortness of breath Informant: patient Narrative Narrative: Patient presents with shortness of breath off and on for a week or 2. Symptoms have been intermittent. She has a slight cough. Denies fever. She was seen for constipation and abdominal pain on 10 January in the emergency department and diagnosed with diverticulitis at that time. Patient started on antibiotics. She is currently having stools but more watery but lately have been more formed. Denies blood in her stool. This morning she got up and felt lightheaded and felt like things were spinning around and round when she got up to let the dogs out. She laid back down and then just felt like she was having some trouble breathing. She generally feels weak. She denies chest pain. She denies recent travel or surgery. [facility] Medical History (Updated 01/13/25 @ 13:[address] Sangita Lima, ) Anxiety Depression Former smoker Hypertension GERD (gastroesophageal reflux disease) History of GI bleed History of angiodysplasia of intestinal tract Diverticular disease History of COPD Anemia Head injury Laceration of head Inability to ambulate due to knee ZONIA (obstructive sleep apnea) Essential hypertension History of dementia History of CVA in adulthood Recurrent episodes of unresponsiveness TIA (transient ischemic attack) Confusion COPD (chronic obstructive pulmonary disease) Alzheimer's dementia History of GI bleed GERD (gastroesophageal reflux disease) Anxiety and depression COVID-19 Hypertensive emergency without congestive heart failure DCIS (ductal carcinoma in situ) of breast GI bleed Vitamin D deficiency Hypercholesterolemia Arthritis Ductal carcinoma in situ (DCIS) of right breast Fall Hypothyroidism Home Medications ?Medication ?Instructions ?Recorded ?Last Taken ?Type pramipexole 1.5 mg tablet 1.5 mg PO QHS restless legs 10/16/22 01/12/25 History valsartan 320 1 tab PO DAILY 10/16/22 01/12/25 History mg-hydrochlorothiazide 25 mg tablet memantine 10 mg tablet 10 mg PO DAILY 04/28/23 01/12/25 History amlodipine 5 mg tablet 5 mg PO DAILY 06/11/23 01/12/25 History pantoprazole 40 mg tablet,delayed 40 mg PO BID 30 days #60 tabs 03/25/24 01/12/25 Rx release diphenhydramine 25 1 tab PO QHS PRN sleep 07/15/24 07/14/24 History mg-acetaminophen 500 mg tablet (Acetaminophen PM) escitalopram oxalate 5 mg tablet 5 mg PO 1700 depression 07/15/24 01/12/25 History aspirin 81 mg capsule 81 mg PO DAILY 30 days #30 caps 07/17/24 01/12/25 Rx calcium carbonate 600 mg PO QDAY 12/07/24 01/12/25 History cholecalciferol (vitamin D3) 25 25 mcg PO QDAY 12/07/24 01/12/25 History mcg (1,000 unit) tablet hydralazine 25 mg tablet 25 mg PO BID blood pressure #180 12/07/24 01/12/25 Rx tabs magnesium oxide 200 mg PO QDAY 12/07/24 01/12/25 History psyllium husk 3.4 gram/5.4 gram 1 tbsp PO QDAY 12/07/24 01/12/25 History oral powder (Metamucil) amoxicillin 875 mg-potassium 1 tab PO Q12H 01/13/25 01/13/25 History clavulanate 125 mg tablet docusate sodium 100 mg capsule 100 mg PO QHS constipation 01/13/25 01/12/25 History Allergy/AdvReac Type Severity Reaction Status Date / Time lisinopril Allergy Mild cough Verified 01/13/25 10:27 alendronate sodium (From Allergy Unknown unknown Verified 01/13/25 10:27 Fosamax) Sulfa (Sulfonamide Allergy Rash Verified 01/13/25 10:27 Antibiotics) atorvastatin (From Lipitor) AdvReac Mild muscle Verified 01/13/25 10:27 aches rosuvastatin (From Crestor) AdvReac Mild muscle Verified 01/13/25 10:27 aches codeine AdvReac Nausea Verified 01/13/25 10:27 NSAIDS (Non-Steroidal AdvReac Bleeding Verified 01/13/25 10:27 Anti-Inflamma Family History Mother Heart disease CVA (cerebral vascular accident) Father Heart disease Surgical History (Updated 01/13/25 @ 10:49 by Nikki Kumar) H/O thyroidectomy History of colonoscopy (~10/2024) Status post placement of implantable loop recorder (11/08/22) History of right hip replacement History of left mastoidectomy History of lumpectomy of right breast History of thyroid surgery History of hysterectomy Social History household members: spouse Smoking Status: Former smoker how long ago did patient quit smoking: Quit ~ 24-25 years prior. alcohol intake: current alcohol intake frequency: a few times a month details: 1 drink/[place] nightly. substance use type: other details: Given THC chew per her family for sleep but prior no substance use. ROS ROS ED Review of Systems ROS Unobtainable: other Constitutional Constitutional ED: Reports lethargy; Denies chills, fever(s), sweats or weight loss Eyes Eyes: Denies blurry vision, change in vision or diplopia ENT ENT ED: Denies rhinorrhea or sore throat Cardiovascular Cardiovascular: Denies chest pain, orthopnea or racing heartbeat Respiratory/Chest Respiratory/Chest: Reports cough, dyspnea and dyspnea on exertion; Denies orthopnea or sputum Gastrointestinal Gastrointestinal: Denies abdominal pain, diarrhea, nausea or vomiting Genitourinary Genitourinary ED: Denies dysuria, hematuria or urinary frequency Musculoskeletal Musculoskeletal: Denies arthralgias, back pain, myalgias or neck pain Integumentary Denies abscess, Abrasions or rash Neurologic Neurologic: Reports weakness; Denies headache(s) Psychiatric Psychiatric: Denies anxiety, depression or suicidal thoughts Endocrine Endocrinology: Denies polydipsia, polyphagia or polyuria Hematologic/Lymphatic Hematologic/Lymphatic: Denies easy bleeding, easy bruising or lymphadenopathy Allergic/Immunologic Allergic/Immunologic ED: Denies mouth swelling, tongue swelling or urticaria EXAM Physical Exam Const Vital Signs: 01/13/25 10:28 01/13/25 10:46 01/13/25 10:51 Temperature 98.5 F 97.6 F L Temperature Source Oral Temporal Pulse Rate 68 61 Pulse Rate [Lying] 70 Pulse Rate [Sitting (for 1 minute prior to obtaining)] 69 Pulse Rate [Standing (for 1 minute prior to obtaining)] 73 Respiratory Rate 18 17 Blood Pressure 134/57 H 122/64 H Blood Pressure [Lying] 109/56 L Blood Pressure [Sitting (for 1 minute prior to obtaining)] 108/67 Blood Pressure [Standing (for 1 minute prior to obtaining)] 120/68 Blood Pressure Mean 82 83 Blood Pressure Mean [Lying] 73 Blood Pressure Mean [Sitting (for 1 minute prior to obtaining)] 80 Blood Pressure Mean [Standing (for 1 minute prior to obtaining)] 85 Pulse Ox 96 Oxygen Delivery Method Room Air Room Air 01/13/25 11:17 01/13/25 12:27 Temperature Temperature Source Pulse Rate 64 Pulse Rate [Lying] Pulse Rate [Sitting (for 1 minute prior to obtaining)] Pulse Rate [Standing (for 1 minute prior to obtaining)] Respiratory Rate 18 Blood Pressure 149/61 H Blood Pressure [Lying] Blood Pressure [Sitting (for 1 minute prior to obtaining)] Blood Pressure [Standing (for 1 minute prior to obtaining)] Blood Pressure Mean 90 Blood Pressure Mean [Lying] Blood Pressure Mean [Sitting (for 1 minute prior to obtaining)] Blood Pressure Mean [Standing (for 1 minute prior to obtaining)] Pulse Ox 100 Oxygen Delivery Method Room Air Room Air Positive well nourished and well developed General Appearance ED: well developed and NAD HEENT Reports TM's clear and moist mucous membranes normocephalic and atraumatic; Negative for trauma or tenderness Tympanic Membrane ED: Yes TM's clear Eyes PERRL and EOMs intact bilaterally General Eye ED: Negative for pale conjunctiva or scleral icterus Neck no lymphadenopathy, supple and no JVD General: Negative for tenderness Chest Wall inspection of chest normal and palpation of chest normal Chest: Negative for tenderness Resp normal respiratory effort and clear to auscultation bilaterally Effort and Inspection: Negative for respiratory distress or pain with movement Auscultation: Negative for rhonchi, wheezes or diminished lung sounds Cardio regular rate, regular rhythm, S1 normal heart sound, S2 normal heart sound and no murmurs Peripheral Pulses: pulses 2+ throughout GI normal to inspection, nondistended, normoactive bowel sounds, soft to palpation, non-tender, non-distended and no masses Back/Spine no CVA tenderness and no thoracic nor lumbar tenderness Extremity normal to inspection General Extremety ED: Negative for edema General Extremity: Negative for edema Neuro oriented x3, CN's II-XII intact bilaterally, no sensory deficits noted and gait normal Sensorium / Orientation: awake, alert, oriented to person, oriented to place and oriented to time Motor Exam: strength 5/5 throughout and strength abnormal Psych mental status grossly normal Skin no rashes or lesions noted and no wounds MDM MDM MDM Narrative Medical decision making narrative: Patient presents with vague symptoms of dyspnea for about a week and a half. Recently diagnosed with diverticulitis and currently on Augmentin. Daughter was concerned because the pulse ox she had at home showed patient's pulse ox to be in the 60s today. She has had a slight cough. She denies chest pain. Clinically looks well. EKG obtained on arrival shows sinus rhythm with rate of [address] changes. CBC with differential shows a white count of 8.4 with hemoglobin 10.9 and platelet count of 332. Chemistries unremarkable. BUN 29 creatinine 0.69. Initial troponin minimally elevated 15. 2-hour delta was 13. BT [employer]VIEWER was 171. We did perform a D-dimer which was elevated at 2.14. CTA of the chest was negative for PE or acute process. This point discussed results with family. Patient is currently not having any abdominal pain. She will continue with her Augmentin. After IV fluids in the department she is feeling markedly improved. It is possible she may have had a vasovagal episode this morning when she got out of bed initially as she did complain of some lightheadedness and some dizziness. Cannot rule out vertigo. I do not think she is having acute coronary syndrome. Patient and family members comfortable with plan to go home and outpatient follow-up with primary care physician in 3 to 5 days. Lab Data Attestation: I reviewed the patient's lab results. Labs: Laboratory Results - last 24 hr 01/13/25 01/13/25 11:15 13:15 WBC 8.4 RBC 4.37 Hgb 10.9 L Hct 35.5 L MCV 81.2 MCH 24.9 L MCHC 30.7 L RDW Std Deviation 48.4 H RDW Coeff of Kierra 16.5 H Plt Count 332 MPV 9.5 Immature Gran % (Auto) 0.100 Neut % (Auto) 72.5 H Lymph % (Auto) 12.9 L [place] % (Auto) 12.3 H Eos % (Auto) 1.6 Baso % (Auto) 0.6 Absolute Neuts (auto) 6.1 Absolute Lymphs (auto) 1.08 Nucleated RBC % 0 D-Dimer Quant (PE/DVT) 2.14 H* Sodium 136 Potassium 3.4 Chloride 98 Carbon Dioxide 25.8 Anion Gap 12 BUN 29 H Creatinine 0.69 L Estim Creat Clear Calc 43.30 L Est GFR (MDRD) Non-Af 86 BUN/Creatinine Ratio 41.3 H Glucose 108 H Calcium 9.8 Troponin T High Sens 15 H D Troponin T Hi Sens 2 Hr 13 NT pro BNP II 171 Radiography Diagnostic Testing: Clinical Impression(s) from Imaging Studies Chest X-Ray 01/13/25 11:20 IMPRESSION: No acute cardiopulmonary abnormalities. Reading Location: [facility] Chest CTA 01/13/25 12:12 IMPRESSION: No acute chest abnormalities. No evidence of pulmonary embolism. Reading Location: [facility] 1 view chest x-ray obtained interpreted by myself as no evidence of infiltrate or pneumothorax or acute disease process. Radiology in agreement. EKG Initial EKG: Attestation: I personally reviewed and interpreted this EKG as follows: Comments: Sinus rhythm with rate of [address] changes Discharge Plan Triage Chief Complaint: Shortness of Breath ED Provider: Sangita Lima Dx/Rx/DC Orders Clinical Impression: Dyspnea, Dizziness Instructions: ED Dizziness, Uncertain Cause, ED Dyspnea Prescriptions: No Action Metamucil 3.4 gram/5.4 gram powder 1 tbsp PO QDAY Rx Instructions: mix into at least 8 oz of water or juice before administering calcium carbonate 600 mg calcium (1,500 mg) tablet 600 mg PO QDAY cholecalciferol (vitamin D3) 25 mcg (1,000 unit) tablet 25 mcg PO QDAY magnesium oxide 200 mg magnesium tablet 200 mg PO QDAY hydralazine 25 mg tablet 25 mg PO BID Qty: 180 3RF pramipexole 1.5 mg tablet 1.5 mg PO QHS Patient Comments: TAKE 1 TABLET 2 TO 3 HOURS BEFORE BEDTIME FOR RESTLESS LEGS valsartan-hydrochlorothiazide 320-25 mg tablet 1 tab PO DAILY memantine 10 mg tablet 10 mg PO DAILY amlodipine 5 mg tablet 5 mg PO DAILY escitalopram oxalate 5 mg tablet 5 mg PO 1700 diphenhydramine-acetaminophen [Acetaminophen PM] 25-500 mg tablet 1 tab PO QHS PRN (Reason: sleep) aspirin 81 mg capsule 81 mg PO DAILY 30 Days Qty: 30 0RF pantoprazole 40 mg Tablet,Delayed Release (Dr/Ec) 40 mg PO BID 30 Days Qty: 60 2RF docusate sodium 100 mg capsule 100 mg PO QHS amoxicillin-pot clavulanate 875-125 mg tablet 1 tab PO Q12H Rx Instructions: x10d started 01/11/25 Primary Care Provider: Vikram Segura Referrals: Vikram Segura MD [Primary Care Provider, Family Practice] - 3-5 Days Print Language: Namibian Disposition Disposition: Home, Self Care
[2025-01-13 10:51] VITALS: BP 108/67; BP 109/56; BP 120/68; PULSE 69; PULSE 70; PULSE 73
[2025-01-13] MEDS: 0.9% Normal Saline (1000mL) 1,000 ML 150 ML IV (11:15)
[2025-01-13 11:20] LABS: Hematocrit 35.5 % (37-47); Hemoglobin 10.9 g/dL (12.0-15.0); Immature Granulocytes Count 0.010 X10^3/uL (0.0-0.0); Mean Corp Hgb Conc 30.7 g/dL (32-36); Mean Corpuscular Volume 81.2 fL (81-99); Mean Platelet Vol. 9.5 fl (6.2-12.0); NRBC Flagged by Analyzer 0 % (0-5); Platelet Count 332 K/mm3 (150-450); RBC Distribution Width CV 16.5 % (11.6-14.6); RBC Distribution Width SD 48.4 fl (35.1-43.9); Red Blood Count 4.37 M/mm3 (4.2-5.4); White Blood Count 8.4 K/mm3 (4.4-11.0)
--- NOTE | 2025-01-13 11:20 | RAD_ITS ---
PROCEDURE: CHEST 1 VIEW (PORTABLE) 01/13/2025 REASON FOR EXAM: DYSPNEA TECHNIQUE: Frontal view of the chest. COMPARISON: Chest x-ray 11/07/2024. FINDINGS: Hardware: Loop recorder overlies the heart. Heart: No cardiomegaly. Tortuosity and atherosclerotic calcifications of the aorta. Lungs: Clear. Bones: No acute bony abnormalities. RAD/Chest 1 View (Portable) IMPRESSION: No acute cardiopulmonary abnormalities. Reading Location: [id number]
--- NOTE | 2025-01-13 11:35 | EKG12_ITS ---
Test Reason : SOB/DIZZINESS Blood Pressure : */* mmHG Vent. Rate : 58 BPM Atrial Rate : 58 BPM P-R Int : 156 ms QRS Dur : 86 ms QT Int : 448 ms P-R-T Axes : 22 9 24 degrees QTcB Int : 439 ms Sinus bradycardia Nonspecific ST abnormality Abnormal ECG Confirmed by ANNETTE BOONE, ZACH ([id number]), order editor MIKKI BENNETT ([id number]) on 01/15/2025 8:00:19 AM Referred By: Confirmed By: ZACH BRYANT MD
[2025-01-13 11:38] LABS: Anion Gap 12 (5-15); BUN 29 mg/dL (4-19); BUN/Creat Ratio 41.3 RATIO (10-20); Calcium,Total 9.8 mg/dL (7.6-11.0); Carbon Dioxide 25.8 mmol/L (21.0-32.0); Chloride 98 mmol/L (98-108); Estimated Creatinine Clearance 43.30 ml/min (50-250); Glucose 108 mg/dL (70-99); Potassium 3.4 mmol/L (3.3-5.1); Pro- Brain NATRIURETIC PEPTIDE 171 pg/mL (<=1800); Troponin T High Sensitivity 15 ng/L (<=14)
[2025-01-13 12:11] LABS: D-Dimer Quantitative (DVT/PE) 2.14 FEU/ug/m (0.27-0.49)
--- NOTE | 2025-01-13 12:12 | CT_ITS ---
PROCEDURE: CTA CHEST W/WO CONTRAST 01/13/2025 REASON FOR EXAM: DYSPNEA TECHNIQUE: Procedure Code: [id number] Modality: CT Procedure: CTA CHEST W/WO CONTRAST Multiplanar Sagittal and Coronal images were obtained. CONTRAST: Isovue 370 VOLUME: 83 mL One or more dose reduction techniques were used (e.g., Automated exposure control, adjustment of the mA and/or kV according to patient size, use of iterative reconstruction technique). RADIATION DOSE SUMMARY: CTDlvol: 6.13 mGy DLP: 226.76 mGycm COMPARISON: Chest x-ray 11/07/2024. # of known CTs in the past 12 months: 0 # of known Cardiac Nuclear Medicine Studies in the past 12 months: 0 FINDINGS: Thoracic Aorta: No aneurysm or dissection. Atherosclerotic calcifications. Heart: No cardiomegaly. Atherosclerotic calcifications of the coronary arteries. Pulmonary Vessels: No evidence of pulmonary embolism. Hardware: Unremarkable. Lymph nodes: No lymphadenopathy. Lungs and Airways: Pulmonary emphysema. No pulmonary consolidation. Pleura: No pleural effusion. No pneumothorax. Upper Abdomen: Unremarkable. Bones: No acute bony abnormalities. Multiple healed rib and sternal fractures. CT/CTA Chest W/WO Contrast IMPRESSION: No acute chest abnormalities. No evidence of pulmonary embolism. Reading Location: [id number]
[2025-01-13 12:27] VITALS: BP 149/61; PULSE 64; RESP 18; O2SAT 100
[2025-01-13 13:40] LABS: Troponin T High Sens 2 HR 13 ng/L (<=14)
[2025-01-13 14:04] VITALS: BP 154/93; PULSE 71; RESP 15; O2SAT 98
[2025-01-13 14:07] VITALS: BP 154/93; PULSE 71; RESP 14; TEMP 36.9; O2SAT 100
== END 2025-01-13 16:16 | disposition home or self-care (01) ==
PROVIDERS: Emergency Provider Emergency Medicine; PCP Family Medicine; Visit Provider Emergency Medicine
DX: R06.02 Shortness of breath (principal); R42 Dizziness and giddiness; K57.92 Diverticulitis of intestine, part unspecified, without perforation or abscess without bleeding; I10 Essential (primary) hypertension; Z79.82 Long term (current) use of aspirin; Z79.899 Other long term (current) drug therapy; Z86.16 Personal history of COVID-19; Z87.891 Personal history of nicotine dependence
CPT/HCPCS: 71045; 71275; 80048; 83880; 84484; 85025; 85379; 93005; 96360; 96361; 99285; Q9967; A4216

== ENCOUNTER → 2025-01-15 | Outpatient (CLI) | payer MEDICARE, SELFPAY | END | disposition home or self-care (01) | LOC: LABSPEC 16:41 | PROVIDERS: PCP Family Medicine; Referring Provider Family Medicine; Visit Provider Family Medicine | DX: R19.7 Diarrhea, unspecified (principal) | CPT/HCPCS: 87177; 87209; 87338; 87493 ==

== ENCOUNTER → 2025-01-15 | Outpatient (CLI) | payer MEDICARE, SELFPAY ==
[2025-01-17 13:08] LABS: H. PYLORI STOOL AG Negative (Negative)
== END | disposition home or self-care (01) ==
LOC: LABSPEC 15:49
PROVIDERS: PCP Family Medicine
DX: R19.7 Diarrhea, unspecified (principal)
CPT/HCPCS: 87177; 87209; 87338; 87493

== ENCOUNTER → 2025-02-06 | Outpatient (CLI) | payer MEDICARE, SELFPAY ==
[2025-02-06 12:32] LABS: Hematocrit 37.8 % (37-47); Hemoglobin 11.8 g/dL (12.0-15.0); Immature Granulocytes Count 0.020 X10^3/uL (0.0-0.0); Mean Corp Hgb Conc 31.2 g/dL (32-36); Mean Corpuscular Volume 78.3 fL (81-99); Mean Platelet Vol. 10.2 fl (6.2-12.0); NRBC Flagged by Analyzer 0 % (0-5); Platelet Count 303 K/mm3 (150-450); RBC Distribution Width CV 17.6 % (11.6-14.6); RBC Distribution Width SD 49.3 fl (35.1-43.9); Red Blood Count 4.83 M/mm3 (4.2-5.4); White Blood Count 7.4 K/mm3 (4.4-11.0)
[2025-02-06 16:04] LABS: AST(SGOT) 27 U/L (<=31); Alanine Aminotransfer ALT/SGPT 17 U/L (<=34); Albumin, Serum 4.4 g/dL (3.4-4.8); Alkaline Phosphatase 66 U/L (35-104); Anion Gap 13 (5-15); BUN 12 mg/dL (4-19); BUN/Creat Ratio 16.3 RATIO (10-20); CRP 3.74 mg/L (0.0-3.0); Calcium,Total 10.5 mg/dL (7.6-11.0); Carbon Dioxide 24.9 mmol/L (21.0-32.0); Chloride 98 mmol/L (98-108); Globulin 3.5 g/dL (2.2-4.2); Glucose 82 mg/dL (70-99); Potassium 4.0 mmol/L (3.3-5.1)
== END | disposition home or self-care (01) ==
LOC: MFPLAB 10:49
PROVIDERS: PCP Family Medicine; Visit Provider Family Medicine
DX: K57.92 Diverticulitis of intestine, part unspecified, without perforation or abscess without bleeding (principal)
CPT/HCPCS: 36415; 80053; 85025; 86140

== ENCOUNTER 2025-04-08 17:11 | Emergency (ER) | payer MEDICARE, SELFPAY ==
[2025-04-08 17:13] VITALS: BP 143/68; PULSE 60; RESP 18; TEMP 36.3; O2SAT 95
--- NOTE | 2025-04-08 20:34 | EDS_ITS ---
HPI History of Present Illness Chief Complaint: General Illness [facility] Medical History (Reviewed 03/04/25 @ 15:38 by Lanie Medrano CABINETMAKER APPRENTICE, CABINETMAKER APPRENTICE-C) Anxiety Depression Former smoker Hypertension GERD (gastroesophageal reflux disease) History of GI bleed History of angiodysplasia of intestinal tract Diverticular disease History of COPD Anemia Head injury Laceration of head Inability to ambulate due to knee ZONIA (obstructive sleep apnea) Essential hypertension History of dementia History of CVA in adulthood Recurrent episodes of unresponsiveness TIA (transient ischemic attack) Confusion COPD (chronic obstructive pulmonary disease) Alzheimer's dementia History of GI bleed GERD (gastroesophageal reflux disease) Anxiety and depression COVID-19 Hypertensive emergency without congestive heart failure DCIS (ductal carcinoma in situ) of breast GI bleed Vitamin D deficiency Hypercholesterolemia Arthritis Ductal carcinoma in situ (DCIS) of right breast Fall Hypothyroidism Home Medications ?Medication ?Instructions ?Recorded ?Last Taken ?Type pramipexole 1.5 mg tablet 1.5 mg PO QHS restless legs 10/16/22 01/12/25 History valsartan 320 1 tab PO DAILY 10/16/2212/18 History mg-hydrochlorothiazide 25 mg tablet memantine 10 mg tablet 10 mg PO DAILY 04/28/2312/18 History amlodipine 5 mg tablet 5 mg PO DAILY 06/11/2301/12 History pantoprazole 40 mg tablet,delayed 40 mg PO BID 30 days #60 tabs 03/25/24 01/12/25 Rx release diphenhydramine 25 1 tab PO QHS PRN sleep 07/1507/14/24 History mg-acetaminophen 500 mg tablet (Acetaminophen PM) escitalopram oxalate 5 mg tablet 5 mg PO 1700 depressi on 07/15/24 01/12/25 History calcium carbonate 600 mg PO QDAY 12/07/2412/18 History cholecalciferol (vitamin D3) 25 25 mcg PO QDAY 5 01/12/25 History mcg (1,000 unit) tablet hydralazine 25 mg tablet 25 mg PO BID blood pressure #180 12/07/24 01/12/25 Rx tabs magnesium oxide 200 mg PO QDAY 12/07/2412/18 History psyllium husk 3.4 gram/5.4 gram 1 tbsp PO QDAY 5 01/12/25 History oral powder (Metamucil) docusate sodium 100 mg capsule 100 mg PO QHS PRN const ipation 03/04/25 Unknown History Allergy/AdvReac Type Severity Reaction Status Date / Time lisinopril Allergy Mild cough Verified 04/08/25 17:16 alendronate sodium (From Allergy Unknown unknown Verified 04/08/25 17:16 Fosamax) Sulfa (Sulfonamide Allergy Rash Verified 04/08/25 17:16 Antibiotics) atorvastatin (From Lipitor) AdvReac Mild muscle Verified 04/08/25 17:16 aches rosuvastatin (From Crestor) AdvReac Mild muscle Verified 04/08/25 17:16 aches codeine AdvReac Nausea Verified 04/08/25 17:16 NSAIDS (Non-Steroidal AdvReac Bleeding Verified 04/08/25 17:16 Anti-Inflamma Family History (Reviewed 03/04/25 @ 15:38 by Lanie Medrano CABINETMAKER APPRENTICE, CABINETMAKER APPRENTICE-C) Mother Heart disease CVA (cerebral vascular accident) Father Heart disease Surgical History H/O thyroidectomy History of colonoscopy (~10/2024) Status post placement of implantable loop recorder (11/08/22) History of right hip replacement History of left mastoidectomy History of lumpectomy of right breast History of thyroid surgery History of hysterectomy Social History household members: spouse Smoking Status: Former smoker how long ago did patient quit smoking: Quit ~ 24-25 years prior. alcohol intake: current alcohol intake frequency: a few times a month details: 1 drink/[place] nightly. substance use type: other details: Given THC chew per her family for sleep but prior no substance use. EXAM Physical Exam Const Vital Signs: 04/08/25 17:13 04/08/25 21:32 04/08/25 22:55 Temperature 97.4 F L 97.4 F L Temperature Source Temporal Pulse Rate 60 79 82 Respiratory Rate 18 17 16 Blood Pressure 143/68 H 133/71 H 133/71 H Blood Pressure Mean 93 91 91 Pulse Ox 95 96 99 Oxygen Delivery Method Room Air Room Air MDM MDM MDM Narrative Medical decision making narrative: HISTORY OF PRESENT ILLNESS: Chief complaint: Weakness, shortness of breath, slurred speech, lightheaded 84-year-old female history of CVA, hyperlipidemia, dysarthria, anxiety, syncope, hypertension, hypothyroidism patient endorses intermittent symptoms. She notes sometimes she feels shortness of breath. So she has chronic slurred speech that she endorses is no different from baseline. Her daughter notes when they communicated to their healthcare provider they told him to come to the ED to have these problems evaluated with tests. Patient notes she does not sleep well at night and takes naps throughout the day. Patient denies any current symptoms. Denies urinary complaints. REVIEW OF SYSTEMS: Pertinent positives: As per HPI Pertinent negatives: As per HPI PHYSICAL EXAM: Nursing triage notes reviewed, Vital signs reviewed Constitutional: please see [facility] HENT: MMM Eyes: Pupils equal round and reactive to light, Extraocular muscles intact Neck: No stridor, no JVD, full neck ROM Lungs: Clear to auscultation, No wheezing or rales. No increased work of breathing, no conversational dyspnea, no accessory muscle use, no nasal flaring. No respiratory distress noted Heart: Regular rate and rhythm, No murmurs, No rubs and No gallops, 2+ distal pulses (radial, femoral, posterior tibial) in all extremities Abdomen: Soft, there is no tenderness, rigidity, rebound or guarding, no obvious peritoneal signs, no palpable pulsatile abdominal masses, no auscultated abdominal bruit : No CVAT Extremities: No edema Neuro: [No cranial nerve deficits patient was alert, oriented to person visit time, at baseline, 5 5 strength bilateral lower extremities, intact sensation in all extremities, intact coordination. No ataxia Skin: No rash or lesions noted MEDICAL DECISION MAKING: Chief Complaint: please see HPI External records reviewed: Reviewed prior imaging studies Factors affecting care: as per HPI Social determinants of health: Former smoker History obtained from others: none Consults: none [facility] Narrative: The patient was initially evaluated by myself approximately hours after initial ED arrival secondary to poor abdominal conditions including high-volume and hide acuity The patient was initially hemodynamically stable, afebrile, nontoxic-appearing. No focal neurologic deficits on initial exam. NIH of 0. I considered the following differential diagnosis: ICH, acute CVA, arrhythmia, anemia, electrolyte disturbance, dehydration, viral illness I obtained a broad lab and imaging workup to further determine if the patient was suffering from a life-threatening etiology. ALL IMAGES (IF OBTAINED) HAVE BEEN PERSONALLY REVIEWED AND INTERPRETED BY MYSELF. EKG with normal sinus rhythm rate 75, normal axis, normals, no STEMI CT scan of the brain showed no evidence of ICH mass or sign of CVA High-sensitivity troponin is negative, no evidence of myocardial ischemia CBC with no leukocytosis, noted baseline anemia but no thrombocytopenia BMP with mild hypokalemia otherwise no significant electrolyte disturbances, no acute kidney injury I have personally reviewed the patient's chest x-ray. Chest x-ray is unremarkable for pulmonary edema, pneumothorax, pneumonia or focal cardiopulmonary abnormality. COVID/flu/RSV negative Replace potassium with oral K. On re-evaluation the patient remained hemodynamically stable, her neurologic exam remained intact. Her NIH remained 0. No clear life-limiting etiology could be ascertained to explain her symptoms. She is appropriate discharge home with close outpatient follow-up. The patient and/or family, caregivers express understanding. The patient and/or family, caregivers agrees with the plan. Shared decision making: I will have a discussion with the patient and or visitors regarding risk/benefits of further testing or admission. They will be made aware of of t he risk/benefits inherent in this decision they will be given the opportunity to voice understanding. Total critical care time today provided was at least 0 minutes. This excludes separately billable procedures. Critical care time (if documented) is secondary to the patient having high probability of clinically significant/life threatening deterioration in the patient's condition which required my urgent intervention. Impression: 1. Shortness of breath 2. Lightheadedness 3. Hypokalemia Dispo: Discharge home This note was generated with gopogo dictation software. It may contain incorrect words, spelling, and punctuation that were not noted in review of the chart prior to signing. Lab Data Labs: Laboratory Results - last 24 hr 04/08/25 20:15 WBC 7.5 RBC 4.11 L Hgb 10.0 L Hct 32.5 L MCV 79.1 L MCH 24.3 L MCHC 30.8 L RDW Std Deviation 52.3 H RDW Coeff of [place]ker[place] 18.3 H Plt Count 307 MPV 10.8 Immature Gran % (Auto) 0.500 Neut % (Auto) 63.8 Lymph % (Auto) 19.8 Cass % (Auto) 12.2 H Eos % (Auto) 2.8 Baso % (Auto) 0.9 Absolute Neuts (auto) 4.8 Absolute Lymphs (auto) 1.48 Nucleated RBC % 0 Sodium 140 Potassium 3.0 L Chloride 102 Carbon Dioxide 24.4 Anion Gap 13 BUN 20 H Creatinine 0.72 Est GFR (MDRD) Non-Af 82 BUN/Creatinine Ratio 27.8 H Glucose 100 H Calcium 9.6 Troponin T High Sens 18 H D Radiography Diagnostic Testing: Clinical Impression(s) from Imaging Studies Brain CT 04/08/25 21:35 IMPRESSION: No evidence of acute intracranial pathology. Moderate chronic microangiopathic changes with stable appearing chronic infarct in the right parietal lobe. Reading Location: [id number] Chest X-Ray 04/08/25 21:35 IMPRESSION: No Acute Findings. Reading Location: [facility] Discharge Plan Triage Chief Complaint: General Illness ED Provider: Charlie High Dx/Rx/DC Orders Clinical Impression: SOB (shortness of breath) Instructions: ED Dyspnea Prescriptions: No Action Metamucil 3.4 gram/5.4 gram powder 1 tbsp PO QDAY Rx Instructions: mix into at least 8 oz of water or juice before administering calcium carbonate 600 mg calcium (1,500 mg) tablet 600 mg PO QDAY cholecalciferol (vitamin D3) 25 mcg (1,000 unit) tablet 25 mcg PO QDAY magnesium oxide 200 mg magnesium tablet 200 mg PO QDAY hydralazine 25 mg tablet 25 mg PO BID Qty: 180 3RF pramipexole 1.5 mg tablet 1.5 mg PO QHS Patient Comments: TAKE 1 TABLET 2 TO 3 HOURS BEFORE BEDTIME FOR RESTLESS LEGS valsartan-hydrochlorothiazide 320-25 mg tablet 1 tab PO DAILY memantine 10 mg tablet 10 mg PO DAILY amlodipine 5 mg tablet 5 mg PO DAILY escitalopram oxalate 5 mg tablet 5 mg PO 1700 diphenhydramine-acetaminophen [Acetaminophen PM] 25-500 mg tablet 1 tab PO QHS PRN (Reason: sleep) pantoprazole 40 mg Tablet,Delayed Release (Dr/Ec) 40 mg PO BID 30 Days Qty: 60 2RF docusate sodium 100 mg capsule 100 mg PO QHS PRN (Reason: constipation) Primary Care Provider: Vikram Segura Referrals: Vikram Segura MD [Primary Care Provider, Family Practice] Activity Restrictions/Additional Instructions: Thank you for trusting us with your care today! Your testing in the emergency department was reassuring. Specifically no sign of life-threatening brain abnormalities, sign of heart or lung abnormalities. Please take Tylenol (2 pills, 650 mg)every 6 hours as needed for pain and fever control. Please return to the emergency department if your symptoms change or worsen. Please follow with your primary care physician for further outpatient evaluation and management. Print Language: Kyrgyz Disposition Disposition: Home, Self Care Discharge Date/Time: 04/08/25 23:04
--- NOTE | 2025-04-08 20:53 | EKG12_ITS ---
Test Reason : DYSRHYTHMIA Blood Pressure : */* mmHG Vent. Rate : 75 BPM Atrial Rate : 75 BPM P-R Int : 152 ms QRS Dur : 80 ms QT Int : 416 ms P-R-T Axes : 42 12 13 degrees QTcB Int : 464 ms Sinus rhythm with Premature atrial complexes with Aberrant conduction Nonspecific ST and T wave abnormality Abnormal ECG When compared with ECG of 13-Jan-2025 11:40, Aberrant conduction is now Present T wave inversion now evident in Lateral leads Confirmed by Omar Beltre ([id number]), movie editor MIKKI BENNETT ([id number]) on 04/12/2025 1:01:54 PM Referred By: Confirmed By: Omar Beltre
[2025-04-08 21:10] LABS: Hematocrit 32.5 % (37-47); Hemoglobin 10.0 g/dL (12.0-15.0); Immature Granulocytes Count 0.040 X10^3/uL (0.0-0.0); Mean Corp Hgb Conc 30.8 g/dL (32-36); Mean Corpuscular Volume 79.1 fL (81-99); Mean Platelet Vol. 10.8 fl (6.2-12.0); NRBC Flagged by Analyzer 0 % (0-5); Platelet Count 307 K/mm3 (150-450); RBC Distribution Width CV 18.3 % (11.6-14.6); RBC Distribution Width SD 52.3 fl (35.1-43.9); Red Blood Count 4.11 M/mm3 (4.2-5.4); White Blood Count 7.5 K/mm3 (4.4-11.0)
[2025-04-08 21:32] VITALS: BP 133/71; PULSE 79; RESP 17; O2SAT 96
--- NOTE | 2025-04-08 21:35 | CT_ITS ---
PROCEDURE: CT BRAIN/HEAD WITHOUT CONTRAST 04/08/2025 REASON FOR EXAM: SLURRED SPEECH TECHNIQUE: Procedure Code: CTBR Modality: CT Procedure: BRAIN/HEAD WITHOUT CONTRAST Coronal and Sagittal reconstruction series were provided. One or more dose reduction techniques were used (e.g., Automated exposure control, adjustment of the mA and/or kV according to patient size, use of iterative reconstruction technique. RADIATION DOSE SUMMARY: CTDlvol: 44.99 mGy DLP: 829.85 mGycm COMPARISON: 11/07/2024 FINDINGS: No acute intracranial hemorrhage, extra-axial collection, mass effect or evidence of acute infarct. Moderate generalized brain parenchymal volume loss and chronic microangiopathic changes. Stable appearing chronic encephalomalacia/gliosis in the right parietal lobe remote infarct. Atherosclerotic vascular calcifications. Absent kenaitze ocular lenses. Intact skull base and calvarium. Well-aerated paranasal sinuses and mastoid air cells. CT/Brain/Head without Contrast IMPRESSION: No evidence of acute intracranial pathology. Moderate chronic microangiopathic changes with stable appearing chronic infarct in the right parietal lobe. Reading Location: [id number]
--- NOTE | 2025-04-08 21:35 | RAD_ITS ---
PROCEDURE: CHEST 1 VIEW (PORTABLE) 04/08/2025 REASON FOR EXAM: SOB TECHNIQUE: Frontal view of the chest. COMPARISON: 12/2024. FINDINGS: A loop recorder is present. The heart is normal in size. The lungs are clear. No acute osseous abnormalities. RAD/Chest 1 View (Portable) IMPRESSION: No Acute Findings. Reading Location[facility]
[2025-04-08 21:47] LABS: Anion Gap 13 (7-18); BUN 20 mg/dL (4-19); BUN/Creat Ratio 27.8 RATIO (10-20); Calcium,Total 9.6 mg/dL (7.6-11.0); Carbon Dioxide 24.4 mmol/L (20.0-29.0); Chloride 102 mmol/L (96-106); Glucose 100 mg/dL (70-99); Potassium 3.0 mmol/L (3.5-5.1); Troponin T High Sensitivity 18 ng/L (<=14)
[2025-04-08 22:29] VITALS: BMI 23.5
[2025-04-08] MEDS: Potassium Chloride Oral Tablet 20 MEQ 40 MEQ PO (22:41)
[2025-04-08 22:55] VITALS: BP 133/71; PULSE 82; RESP 16; TEMP 36.3; O2SAT 99
== END 2025-04-08 23:04 | disposition home or self-care (01) ==
PROVIDERS: Emergency Provider Emergency Medicine; PCP Family Medicine; Visit Provider Emergency Medicine
DX: R06.02 Shortness of breath (principal); R42 Dizziness and giddiness; E87.6 Hypokalemia; I10 Essential (primary) hypertension; Z79.899 Other long term (current) drug therapy; Z87.891 Personal history of nicotine dependence
CPT/HCPCS: 70450; 71045; 80048; 84484; 85025; 87631; 93005; 99283; A4216